=== PATIENT | male | born 1950 | race Caucasian/White ===

== ENCOUNTER → 2017-04-14 08:40 | Outpatient (CLI) | payer MEDICARE, SELFPAY | PROVIDERS: Family Provider Internal Medicine; PCP Internal Medicine; Visit Provider Physician Assistant Medical | DX: R00.2 Palpitations (principal) | CPT/HCPCS: 93225; 93226 ==

== ENCOUNTER 2017-04-14 10:45 | Emergency (ER) | payer MEDICARE, SELFPAY ==
[2017-04-14 10:47] VITALS: BP 133/93; PULSE 94; RESP 18; TEMP 37.2; O2SAT 97; BMI 20.9
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
--- NOTE | 2017-04-14 11:54 | ED.RN ---
DR [facility] OFFICE CONTACTED FOR HOME MOEDICATION LIST
--- NOTE | 2017-04-14 12:08 | ED.VISSUMM ---
- ER Visit Summary Date of Service: 04/14/17 Chief Complaint: Reported atraumatic left wrist pain and swelling History of Present Illness: The patient is a 67 M who is right-handed presents with left breast pain. He denies trauma. He is on Plavix. He does have soft tissue swelling on the volar surface with discoloration. He denies any paresthesia, anesthesia or motor weakness. Physical Examination: Vital signs remarkable elevated blood pressure 133/93. There is soft tissue swelling over the distal third of the radius and ulnar volar surface with ecchymosis noted. He has pain with passive range of motion of the wrist. There is pain palpation over the distal radius and ulna. There is no pain patient over the anatomic snuffbox or carpal bones. There is no pain the patient of the metacarpal bones or phalanges. Median, radial, ulnar function intact. Capillary refill is normal. Palpable radial pulse. There is no pain the patient over the lateral medial epicondyle appears no pain the patient over the olecranon process or radial head with supination pronation. Supination grocery causes him discomfort distally. Test Results: X-ray of the wrist was obtained which reveals no evidence of fracture. There is no malalignment and there is no evidence of a volar fat pad. Emergency Department Course and Treatment: X-ray to evaluate patient's swelling and ecchymosis. Treatment Plan: The patient's allergies age and medical problems he was given a prescription for 10 [place] Disposition: Discharge to home Impression: Left wrist pain with contusion initial encounter This note was generated with [employer] dictation software. It may contain incorrect words, spelling, and punctuation that were not noted in review of the chart prior to signing ED Disposition - Plan for ED Patient: Disposition: Home or Assisted Living Chief Complaint: Upper Extremity Injury Instructions: ED Contusion Upper Ext Prescriptions: Hydrocodone Bitart/Apap 5-325 [[place] 5MG-325MG] 1 tablet PO Q6H PRN PRN #10 tablet PRN Reason: Pain Referrals: Ani Andersen DO [Primary Care Provider] - 1 Week if not improving Additional Instructions: Elevate wrist for the next 2-3 days. Apply ice 6-8 times a day for 2030 minutes at a time.. Your prescription was electronically transmitted to designated pharmacy of your choice.
--- NOTE | 2017-04-14 12:14 | ED.DCSUM_ITS ---
- ER Visit Summary Date of Service: 04/14/17 Chief Complaint: Reported atraumatic left wrist pain and swelling History of Present Illness: The patient is a 67 M who is right-handed presents with left breast pain. He denies trauma. He is on Plavix. He does have soft tissue swelling on the volar surface with discoloration. He denies any paresthesia, anesthesia or motor weakness. Physical Examination: Vital signs remarkable elevated blood pressure 133/93. There is soft tissue swelling over the distal third of the radius and ulnar volar surface with ecchymosis noted. He has pain with passive range of motion of the wrist. There is pain palpation over the distal radius and ulna. There is no pain patient over the anatomic snuffbox or carpal bones. There is no pain the patient of the metacarpal bones or phalanges. Median, radial, ulnar function intact. Capillary refill is normal. Palpable radial pulse. There is no pain the patient over the lateral medial epicondyle appears no pain the patient over the olecranon process or radial head with supination pronation. Supination grocery causes him discomfort distally. Test Results: X-ray of the wrist was obtained which reveals no evidence of fracture. There is no malalignment and there is no evidence of a volar fat pad. Emergency Department Course and Treatment: X-ray to evaluate patient's swelling and ecchymosis. Treatment Plan: The patient's allergies age and medical problems he was given a prescription for 10 [place] Disposition: Discharge to home Impression: Left wrist pain with contusion initial encounter This note was generated with [employer] dictation software. It may contain incorrect words, spelling, and punctuation that were not noted in review of the chart prior to signing ED Disposition - Plan for ED Patient: Disposition: Home or Assisted Living Chief Complaint: Upper Extremity Injury Instructions: ED Contusion Upper Ext Prescriptions: Hydrocodone Bitart/Apap 5-325 [[place] 5MG-325MG] 1 tablet PO Q6H PRN PRN #10 tablet PRN Reason: Pain Referrals: Ani Andersen DO [Primary Care Provider] - 1 Week if not improving Additional Instructions: Elevate wrist for the next 2-3 days. Apply ice 6-8 times a day for 2030 minutes at a time.. Your prescription was electronically transmitted to designated pharmacy of your choice.
[2017-04-14] MEDS: HYDROcodone Bitartrate/Apap 5/325 Tablet PO (12:23)
[2017-04-14 12:24] VITALS: PULSE 89; RESP 17; O2SAT 99
== END 2017-04-14 12:25 | disposition home or self-care (01) ==
PROVIDERS: Emergency Provider Emergency Medicine; Family Provider Internal Medicine; PCP Internal Medicine
DX: M25.532 Pain in left wrist (principal); S60.212A Contusion of left wrist, initial encounter; I25.10 Atherosclerotic heart disease of native coronary artery without angina pectoris; J44.9 Chronic obstructive pulmonary disease, unspecified; E78.00 Pure hypercholesterolemia, unspecified; F32.9 Major depressive disorder, single episode, unspecified; N40.0 Benign prostatic hyperplasia without lower urinary tract symptoms; Z86.711 Personal history of pulmonary embolism; Z79.51 Long term (current) use of inhaled steroids; Z79.02 Long term (current) use of antithrombotics/antiplatelets; Z79.899 Other long term (current) drug therapy; X58.XXXA Exposure to other specified factors, initial encounter; Y93.9 Activity, unspecified; Y92.9 Unspecified place or not applicable; Y99.9 Unspecified external cause status
CPT/HCPCS: 73110; 93225; 93226; 99283

== ENCOUNTER → 2017-07-10 09:35 | Outpatient (CLI) | payer MEDICARE, SELFPAY ==
--- NOTE | 2017-07-10 09:40 | RAD_ITS ---
STUDY: X-RAY - LUMBAR SPINE REASON FOR EXAM: Male, 67 years old. Back pain x40 years TECHNIQUE: 5 view(s) of the lumbar spine were obtained. COMPARISON: Prior study of 03/12/2014 FINDINGS: Normal lumbar lordosis. There is no substantial scoliosis. There is a normal alignment of the vertebrae. There is diffuse endplate spondylosis of the lumbar vertebrae. Generalized osteopenia is present. There is narrowing of the L1-2, L2-3, and L5-S1 disc spaces. There is no demonstrated fracture. The soft tissue structures are unremarkable. RAD/L/S Spine Min 4 Views IMPRESSION: Degenerative changes of the spine, as detailed above. Generalized osteopenia. The degree of degenerative disease has slightly increased in severity from the previous study. Electronically Signed: Kelvin Moreira MD at 17:09 EDT , Service support ,
== END ==
PROVIDERS: Family Provider Internal Medicine; PCP Internal Medicine; Visit Provider Chiropractor
DX: S33.5XXA Sprain of ligaments of lumbar spine, initial encounter (principal)
CPT/HCPCS: 72110

== ENCOUNTER → 2017-09-09 08:39 | Outpatient (CLI) | payer MEDICARE, SELFPAY ==
--- NOTE | 2017-09-09 08:43 | RAD_ITS ---
STUDY: X-RAY - CERVICAL SPINE REASON FOR EXAM: Male, 67 years old. Left-sided neck pain. History of prior fusion. TECHNIQUE: 3 view(s) of the cervical spine were obtained. COMPARISON: Comparison is made with prior examination dated September 26, 2014. FINDINGS: There are degenerative changes of the anterior atlantoaxial articulation. Normal odontoid process. The patient is status post anterior fusion with screw and plate fixation device at the C4-C5, C5-C6 and C6-C7 levels. Multilevel disc space narrowing. Facet joint osteoarthritis. Possible multilevel neural foraminal stenosis. The soft tissue structures are unremarkable. RAD/Cerv Spine 2 or 3 Views IMPRESSION: Status post fusion from the C4-C7 level. There is been essentially no change. Electronically Signed: Jimmy Mathew MD at 9:22 EDT Tel [phone], Service support ,
== END ==
PROVIDERS: Family Provider Internal Medicine; PCP Internal Medicine; Visit Provider Internal Medicine
DX: M54.2 Cervicalgia (principal); Z98.1 Arthrodesis status
CPT/HCPCS: 72040

== ENCOUNTER 2017-09-17 10:21 | Emergency (ER) | payer MEDICARE, SELFPAY ==
[2017-09-17 10:22] VITALS: BP 126/73; PULSE 95; RESP 16; TEMP 36.9; O2SAT 97; BMI 21.2
--- NOTE | 2017-09-17 10:36 | RAD_ITS ---
STUDY: X-RAY CHEST REASON FOR EXAM: Male, 67 years old. Chest pain and shortness of breath for 3 days. TECHNIQUE: Single AP portable view of the chest. COMPARISON: February 27, 2017. FINDINGS: There is hyperinflation of the lungs consistent with chronic obstructive lung disease (COPD). There is no demonstrated pleural abnormality. Normal size heart. There are calcified hilar lymph nodes. Normal visualized pulmonary arteries. There is atherosclerotic tortuosity of the aortic arch and descending thoracic aorta. There are diffuse degenerative changes of the visualized thoracic spine. Patient has had previous cervical spine surgery. Normal visualized ribs, clavicles, and shoulders. There is no demonstrated abnormality of the visualized soft tissue structures of the upper abdomen. RAD/Chest 1 View (Portable) IMPRESSION: No radiographic evidence of acute cardiopulmonary disease. Electronically Signed: Moira Rudolph MD at 11:08 EDT , Service support ,
--- NOTE | 2017-09-17 10:36 | EKG12_ITS ---
Test Reason : BACK PAIN Blood Pressure : / mmHG Vent. Rate : 083 BPM Atrial Rate : 083 BPM P-R Int : 168 ms QRS Dur : 078 ms QT Int : 370 ms P-R-T Axes : 051 035 037 degrees QTc Int : 434 ms Normal sinus rhythm Normal ECG Confirmed by CLARA STEVENSON, MIGUELITO ([id number]), purchasing expeditor ALEKSANDAR GILBERT ([id number]) on 09/22/2017 3:40:04 PM Referred By: NEETA Confirmed By:MIGUELITO ELIZABETH MD
--- NOTE | 2017-09-17 10:38 | CT_ITS ---
STUDY: CT ABDOMEN AND PELVIS WITHOUT CONTRAST REASON FOR EXAM: Male, 67 years old. Left flank pain. RADIATION DOSAGE (If Supplied By Facility): CTDIvol = ( 6.11 ) mGy, DLP = ( 317.67 ) mGycm TECHNIQUE: Transaxial images were obtained from the dome of the diaphragm to the symphysis pubis without oral contrast, and without intravenous contrast. Sagittal and coronal images were reconstructed. Individualized dose optimization techniques were used for this CT. COMPARISON: Oral and IV contrast enhanced CT abdomen and pelvis December 27, 2016. FINDINGS: The visualized lung bases are unremarkable. The heart size is normal. There are atherosclerotic calcifications of the right coronary artery and visualized distal descending thoracic aorta. Normal liver. The portal vein diameter is 17 mm. There is non-visualization of the gallbladder, which may be secondary to either contraction or a prior cholecystectomy. Common bile duct diameter is 4.5 mm. Normal spleen. Normal pancreas. Normal bilateral adrenal glands. Normal right kidney. Normal left kidney. No hydronephrosis. Normal visualized stomach. Normal small intestine. Normal colon. There are surgical clips or sutures in the region of the appendix consistent with a prior appendectomy. There is moderate atherosclerotic calcification of the abdominal aorta and proximal iliac arteries, without a demonstrated aneurysm. Normal inferior vena cava. Normal retroperitoneum. Normal urinary bladder. Prostate gland size is approximately 4.65 x 4.7 x 4.1 cm (R57 cc), and is again seen indenting the floor of the urinary bladder. Normal abdominal wall. There are stable multilevel osteophytic degenerative changes of the visualized spine, as well as mid to lower lumbar facet arthropathies. There is osseous fusion across the right sacroiliac joint and mild degenerative arthrosis on the left. CT/Abdomen/Pelvis without Cont IMPRESSION: 1. No clearly demonstrated source for the patient's complaint. 2. No nephrolithiasis or hydronephrosis. 3. The bowel is unremarkable without sign of obstruction. The appendix is surgically absent. 4. Prior cholecystectomy. 5. Atherosclerotic calcifications. No demonstrated aortoiliac aneurysm. 6. Enlarged prostate gland, as noted. 7. Degenerative changes of the spine and pelvis, as described. Electronically Signed: Ish Renner MD at 12:20 EDT , Service support ,
[2017-09-17 10:52] LABS: Absolute Neutrophil Count 3.1 X10^3/uL (2.0-7.7); Basophil# 0.04 X10^3/uL; Basophil% 0.7 % (0-1); Eosinophil# 0.19 X10^3/uL; Eosinophils% 3.5 % (0-5); Hemoglobin 11.7 g/dl (13.0-16.5); Lymphocyte % 31.1 % (19-41); Mean Corp Hgb Conc 33.4 g/gl (32-36); Mean Corpuscular Hgb 27.7 pg (27.0-32.0); Mean Corpuscular Volume 82.9 fL (80-94); Mean Platelet Vol. 9.8 fl (6.2-12.0); Monocyte# 0.45 X10^3/uL; Monocyte% 8.2 % (0-10); Neutrophil # 3.07 X10^3/uL (2.7-7.7); Neutrophil % 56.1 % (47-70); POSITIVE COUNT NO; POSITIVE DIFFERENTIAL NO; POSITIVE MORPHOLOGY NO; Platelet Count 229 K/mm3 (150-450); RBC Distribution Width CV 14.4 % (11.6-14.6); RBC Distribution Width SD 43.2 fl (35.1-43.9); Red Blood Count 4.22 M/mm3 (4.6-6.2); White Blood Count 5.5 K/mm3 (4.4-11.0)
[2017-09-17 11:02] LABS: D-Dimer Quantitative (DVT/PE) 0.55 FEU/ug/m (0.27-0.49)
[2017-09-17 11:07] LABS: Anion Gap 9 (5-15); BUN 14 mg/dL (7-18); BUN/Creat Ratio 13.9 RATIO (10-20); Calcium,Total 8.4 mg/dL (8.5-10.1); Chloride 111 mmol/L (98-107); Creatinine, Serum 1.01 mg/dL (0.70-1.30); EST Glomerular Filtration Rate 78 mL/min (>60); Est Glom Filt Rate - Afr Amer 94 mL/min (>60); Estimated Creatinine Clearance 73.07 ml/min; Glucose 104 mg/dL (74-106); Potassium 3.7 mmol/L (3.5-5.1); Sodium Level 146 mmol/L (136-145)
[2017-09-17] MEDS: 0.9% Normal Saline 1,000 ML 150 ML IV (11:09)
[2017-09-17] MEDS: Morphine 4 MG/ML Syringe IV ×2 (11:09→12:44)
[2017-09-17] MEDS: Ondansetron 4 MG/2 ML Vial IV ×2 (11:10→12:43)
[2017-09-17 11:13] VITALS: BP 132/81; PULSE 76; RESP 12; O2SAT 98
[2017-09-17 12:54] LABS: Bacteria 0 SEEN /hpf (None Seen); Red Blood Cells-Urine 0 SEEN /hpf (0-5); Squamous Epithelial Cells - UA 0 SEEN /hpf (0-5); White Blood Cells 0 SEEN /hpf (0-5)
[2017-09-17 13:16] LABS: Color, Urine Yellow (Yellow); Glucose, Dipstick NEGATIVE (Normal); Ketone-Dipstick Negative (Negative); Leukocyte Esterase-Dipstick 25 /ul (Negative); Nitrite-Dipstick Negative (Negative); Occult Blood-Urine Negative /ul (Negative); Protein-Dipstick Negative (Negative); Specific Gravity, Urine 1.015 (1.002-1.030); Urine Bilirubin Dipstick Negative (Negative); Urine Clarity Clear (Clear); Urine Urobilinogen Normal (Normal)
[2017-09-17 13:17] LABS: Mucous, Urine 1+ /hpf (<or=2+)
--- NOTE | 2017-09-17 14:13 | ED.VISSUMM ---
- ER Visit Summary Date of Service: 09/17/17 Chief Complaint: [Back pain] History of Present Illness: The patient is a 67 M [presents the emergency department with complaint of back pain that started 3 days ago. Patient states the pain started in the left lower back kind of started moving up towards the upper back. Patient states pain is worse with deep breath and certain movements. Patient denies any trauma. He denies recent travel or surgery. He denies any fever. Patient also gives history of diarrhea that started this morning where he had 6 or 7 watery stools but has since resolved. Patient has a history of coronary artery disease, asthma, COPD, schizophrenia, bipolar disorder, depression.] Physical Examination: [HEENT-PERRLA, EOMI. Cranial nerves II through XII grossly intact. TMs clear. Mucous membranes moist. No adenopathy. Cardiovascular-regular rate and rhythm without murmur or ectopy Lungs-clear to auscultation, chest wall stable without crepitus or subcu emphysema Abdomen-normoactive bowel sounds, soft, patient has some mild tenderness over left lower quadrant with some guarding. There is no rebound, rigidity, or perineal signs Back exam-patient has tenderness palpation over the left upper thoracic paraspinal musculature that seems to reproduce his pain. Patient has negative straight leg raises. Deep tendon reflexes are plus out of 4 equal bilaterally in upper extremities Extremities-intact ?4, normal range of motion, normal pulses, atraumatic] Test Results: [EKG obtained arrival shows sinus rhythm with a ventricular rate of 83 bpm. CBC with differential showing a 5.5, hemoglobin 11.7, hematocrit 35, platelets 229. Chemistries unremarkable. Urinalysis was normal. Troponin was less than 0.015. D-dimer was normal for age when adjusted for age at 0.55. Chest x-ray showed nothing acute. CT flank showed nothing acute.] Emergency Department Course and Treatment: [She was medicated with morphine and Zofran in the department] Treatment Plan: [Patient will be given a prescription for [place] for pain and advised to follow-up with his primary care physician within next 5-7 days.] Disposition: [Discharged to home in stable condition] Impression: [Back pain-musculoskeletal] This note was generated with [employer] software. It may contain incorrect words, spelling, and punctuation that were not noted in review of the chart prior to signing ED Disposition - Plan for ED Patient: Chief Complaint: Back Referrals: Ani Andersen DO [Primary Care Provider] -
--- NOTE | 2017-09-17 14:17 | ED.DCSUM_ITS ---
- ER Visit Summary Date of Service: 09/17/17 Chief Complaint: [Back pain] History of Present Illness: The patient is a 67 M [presents the emergency department with complaint of back pain that started 3 days ago. Patient states the pain started in the left lower back kind of started moving up towards the upper back. Patient states pain is worse with deep breath and certain movements. Patient denies any trauma. He denies recent travel or surgery. He denies any fever. Patient also gives history of diarrhea that started this morning where he had 6 or 7 watery stools but has since resolved. Patient has a history of coronary artery disease, asthma, COPD, schizophrenia, bipolar disorder, depression.] Physical Examination: [HEENT-PERRLA, EOMI. Cranial nerves II through XII grossly intact. TMs clear. Mucous membranes moist. No adenopathy. Cardiovascular-regular rate and rhythm without murmur or ectopy Lungs-clear to auscultation, chest wall stable without crepitus or subcu emphysema Abdomen-normoactive bowel sounds, soft, patient has some mild tenderness over left lower quadrant with some guarding. There is no rebound, rigidity, or perineal signs Back exam-patient has tenderness palpation over the left upper thoracic paraspinal musculature that seems to reproduce his pain. Patient has negative straight leg raises. Deep tendon reflexes are plus out of 4 equal bilaterally in upper extremities Extremities-intact ?4, normal range of motion, normal pulses, atraumatic] Test Results: [EKG obtained arrival shows sinus rhythm with a ventricular rate of 83 bpm. CBC with differential showing a 5.5, hemoglobin 11.7, hematocrit 35 , platelets 229. Chemistries unremarkable. Urinalysis was normal. Troponin was less than 0.015. D-dimer was normal for age when adjusted for age at 0.55. Chest x-ray showed nothing acute. CT flank showed nothing acute.] Emergency Department Course and Treatment: [She was medicated with morphine and Zofran in the department] Treatment Plan: [Patient will be given a prescription for [place] for pain and advised to follow-up with his primary care physician within next 5-7 days.] Disposition: [Discharged to home in stable condition] Impression: [Back pain-musculoskeletal] This note was generated with [employer] software. It may contain incorrect words, spelling, and punctuation that were not noted in review of the chart prior to signing ED Disposition - Plan for ED Patient: Chief Complaint: Back Referrals: Ani Andersen DO [Primary Care Provider] -
--- NOTE | 2017-09-17 14:17 | ED.DEP ---
ED Disposition - Plan for ED Patient: Chief Complaint: Back Instructions: ED Spasm Back No Trauma Prescriptions: Hydrocodone/Acetaminophen [[place] 5-325 Tablet] 1 - 2 ea PO 4X/DAY PRN PRN 3 Days #12 tab PRN Reason: Pain Referrals: Ani Andersen DO [Primary Care Provider] - 5-7 Days
== END 2017-09-17 14:51 | disposition home or self-care (01) ==
LOC: ED 12:39
PROVIDERS: Emergency Provider Emergency Medicine; Family Provider Internal Medicine; PCP Internal Medicine
DX: M54.9 Dorsalgia, unspecified (principal); M54.6 Pain in thoracic spine; I25.10 Atherosclerotic heart disease of native coronary artery without angina pectoris; J45.909 Unspecified asthma, uncomplicated; J44.9 Chronic obstructive pulmonary disease, unspecified; F20.9 Schizophrenia, unspecified; F32.9 Major depressive disorder, single episode, unspecified; I25.2 Old myocardial infarction; Z87.891 Personal history of nicotine dependence; Z79.51 Long term (current) use of inhaled steroids; Z79.02 Long term (current) use of antithrombotics/antiplatelets; Z79.899 Other long term (current) drug therapy
CPT/HCPCS: 71045; 74176; 80048; 81001; 84484; 85025; 85379; 93005; 96361; 96374; 96375; 96376; 99284; J7030; A4216; J2405

== ENCOUNTER → 2017-09-23 09:10 | Outpatient (CLI) | payer MEDICARE, SELFPAY ==
--- NOTE | 2017-09-23 09:11 | STE_ITS ---
Reason For Study: CHEST PAIN Stress Results Protocol: Dobutamine Maximum Predicted HR: 151 bpm Target HR: 128 bpm% Maximum Predicted HR: 85 % DurationHeart Rate Stage (mm:ss) (bpm) BPDos e BASELINE 69 130/74 STAGE 1 3:00 78 123/6510.00 STAGE 2 3:00 11 3 135/7720.00 STAGE 3 3:00 12 1 138/7430.00 STAGE 4 2:39 12 8 146/8840.00 RECOVERY 82 143/84 Stress Duration: 11:39 mm:ss Maximum Stress HR: 128 bpm Baseline Echocardiogram Findings The estimated ejection fraction is 65 %. Stress Echo Wall motion Data Resting WMIntermediate WMStress WM Resting Wall Motion Wall Motion Stress No regional wall motion No regional wall motion abnormalities noted. abnormalities noted. EKG Data Normal intervals are noted. The patient was titrated from 10 mcg to a maximum of 40 mcg of dobutamine during the stress. The maximum heart rate attained was 127 beats per minute. This was 84% of maximum predicted heart rate. During dobutamine infusion, there were no ST or T wave changes noted to suggest ischemia. No clinical angina was noted. Interpretation Summary The estimated ejection fraction is 65 %. Normal, adequate, dobutamine echocardiogram. Negative for ischemia by EKG and echocardiographic criteria. No anginal symptoms noted. Rare PVCs noted during dobutamine infusion. Appropriate blood pressure response to dobutamine. Final LVEF is 75%. No complications. Ordering Physician: Alfredo Andrade Referring Physician: Alfredo Andrade Performed By: Jovanna Larios, DANA, RVT
== END ==
PROVIDERS: Family Provider Internal Medicine; PCP Internal Medicine; Visit Provider Internal Medicine Cardiovascular Disease
DX: R07.89 Other chest pain (principal); I25.110 Atherosclerotic heart disease of native coronary artery with unstable angina pectoris; Z95.5 Presence of coronary angioplasty implant and graft
CPT/HCPCS: 93017; 93350; J7030

== ENCOUNTER 2017-10-17 09:00 | Outpatient (RCR) | payer MEDICARE, SELFPAY ==
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
--- NOTE | 2017-10-17 09:35 | HP.PTDCSUM_ITS ---
HP - PT D/C Summary It has been my pleasure to treat LILLIAN GUERRERO under orders from Ani Andersen , for the diagnosis of CERVICAL SPASM AND NECK PAIN. LIMITED ROM. for a total of 5 visit(s). Discharge Date: 10/17/17 Please see the following information for a summary of their discharge status. - Subjective Subjective: GOING TO HAVE TO CLIMB STEPS ANYMORE AND HE THINKS THAT IS REALLY GOING TO HELP. HE REPORT HE CAN DO A LITTLE BIT MORE WORK NOW THAN HE COULD BEFORE HAVING PT BECAUSE HE FEELS LIKE HE IS GETTING A LITTLE STRONGER. DOING MY EX'S HELPS OUT A LOT. PATIENT REPORTS HE WANTS TO TRY TO CONTINUE ON HIS OWN AT THIS POINT AND IF HE SEES IT GETTING WORSE HE WILL LET HIS DOCTOR KNOW. HE REPORTS EACH ONE OF HIS EX'S HELP. PATIENT REPORTS THE TINGLING IN HIS FINGERS HASN'T CHANGED. LEFT NECK PAIN RANGES 2/10 TO 9/10. - Pain CERVICAL AREA Pain Intensity (Out of 10): 7 - Overall Improvement % Improvement: 50 - Objective Objective/Function: PATIENT HAS MADE SIGNIFICANT PROGRESS INTERMS OF PAIN AND INCREASED UE ROM AND STRENGTH BUT HE CONTINUES TO HAVE VERY LIMITED NECK ROM. HE IS INDEP WITH A HEP THAT HE IS SATISFIED WITH. UPON EXAM: Sitting Posture/ Standing Posture: POOR. FORWARD HEAD, ROUNDED SHOULDERS. NO TORTICOLLIS. Active Correction of posture: WORSE. Other Observations: INDEP GAIT INTO PT WITHOUT ANY ASSISTIVE DEVICES CARRYING AND WEARING PORTABLE OXYGEN. 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 STRENGTH: CARLOS UE STRENGTH GROSSLY 4/5 WITH MMT'ING TODAY WITHIN AVAILABLE ROM. SENSATION: UNCHAGED. ROM deficit: CARLOS SHOULDER ELEVATION TO APPROX 130 DEG WITHOUT C/O INCREASED NECK PAIN. Cervical Mvmt Loss: Flex: MIN. Pro: NIL. Ext: 7. Ret: SURY. RSB: 7.25. LSB: 7.5. R Rot: 8. L Rot: 9.5. PATIENT C/O INCREASED NECK PAIN WITH LEFT SB, LEFT ROTATION AND EXTENSION TESTING. Postural strength: POOR. Palpation: MILD TENDERNESS WITH PALPATION OF THE LEFT UPPER TRAP AND POSTERIOR CERVICAL REGION. - Goals Goal 1:: DECREASE C/O LEFT NECK AND SHOULDER PAIN Goal Progress: Goal Met Goal 2:: IMPROVE PERSONAL CARE, LIFITNG, READING, SLEEP, WORK, DRIVING AND RECREATIONAL FUNCTION. Goal Progress: Goal Met Goal 3:: INSTRUCT IN PROPHYLAXIS Goal Progress: Goal Met - Plan Plan: D/C TO HEP AT PATIENTS REQUEST. - D/C Information If there are questions or concerns regarding this patient's physical therapy, please feel free to call me at [phone]. Thank you for the referral of this patient. Sincerely, Sherita Sanz
== END 2017-10-17 19:00 | disposition home or self-care (01) ==
LOC: PT 09:00
PROVIDERS: Family Provider Internal Medicine; PCP Internal Medicine; Visit Provider Internal Medicine
DX: M62.838 Other muscle spasm (principal); M54.2 Cervicalgia
CPT/HCPCS: 97110; 97140; 97162; 97164

== ENCOUNTER → 2018-03-26 20:45 | Outpatient (CLI) | payer MEDICARE, SELFPAY ==
[2018-03-18 14:10] VITALS: BMI 21.2
== END ==
PROVIDERS: Family Provider Internal Medicine; PCP Internal Medicine; Visit Provider Internal Medicine Critical Care Medicine
DX: G47.33 Obstructive sleep apnea (adult) (pediatric) (principal)
CPT/HCPCS: 95810

== ENCOUNTER → 2018-03-31 12:38 | Outpatient (CLI) | payer MEDICARE, SELFPAY ==
[2018-03-18 14:10] VITALS: BMI 21.2
[2018-03-27 09:43] VITALS: BMI 22.1
[2018-03-31 14:33] VITALS: PULSE 82; PULSE 85; PULSE 90; PULSE 91; PULSE 92; PULSE 93; PULSE 94; O2SAT 93; O2SAT 94; O2SAT 95; O2SAT 96; O2SAT 97; O2SAT 98
--- NOTE | 2018-04-02 09:44 | WT_ITS ---
PSN 6 Minute Walk Test - 6 Minute Walk Test 6 Minute Walk Test: 6 Minute Walk Test PSN:6-Minute Walk Test Start: 03/31/18 14:32 Freq: Status: Active Protocol: [id number].[id number] Document 03/31/18 14:33 [facility] (Rec: 03/31/18 14:36 [facility] [id number]) 6 Minute Walk Test Date Performed 03/31/18 Time Performed 13:30 Height 6 ft 2 in Weight: 164 lb Weight in Pounds 164.[address]: Jose F Phillips Assistive device used: None Pre-test Oxygen Delivery Method Room Air Pulse Ox (%) 94 Pulse Rate (60-100 beats/min) 85 Dyspnea She Scale (0-10) 2 1st minute Oxygen Delivery Method Room Air Pulse Ox (%) 95 Pulse Rate (60-100 beats/min) 92 Dyspnea She Scale (0-10) 3 Reported Symptoms Increased Work of Breathing 2nd minute Oxygen Delivery Method Room Air Pulse Ox (%) 93 Pulse Rate (60-100 beats/min) 91 Dyspnea She Scale (0-10) 3 Reported Symptoms Increased Work of Breathing 3rd minute Oxygen Delivery Method Room Air Pulse Ox (%) 98 Pulse Rate (60-100 beats/min) 90 Dyspnea She Scale (0-10) 3 Reported Symptoms Increased Work of Breathing 4th minute Oxygen Delivery Method Room Air Pulse Ox (%) 96 Pulse Rate (60-100 beats/min) 93 Dyspnea She Scale (0-10) 3 Reported Symptoms Increased Work of Breathing 5th minute Oxygen Delivery Method Room Air Pulse Ox (%) 97 Pulse Rate (60-100 beats/min) 94 Dyspnea She Scale (0-10) 3 Reported Symptoms Increased Work of Breathing 6th minute Oxygen Delivery Method Room Air Pulse Ox (%) 97 Pulse Rate (60-100 beats/min) 91 Dyspnea She Scale (0-10) 4 Reported Symptoms Increased Work of Breathing Post-test Oxygen Delivery Method Room Air Pulse Ox (%) 97 Pulse Rate (60-100 beats/min) 82 Dyspnea She Scale (0-10) 2 Full Laps Walked 14 Partial Lap, Number of Tiles Walked 16 Total Distance Walked (ft) 842 - Interpretation Interpretation: The patient ambulated 842 feet over the course of 6 minutes beginning on room air without assistive devices or breaks. Pretesting oxygen saturation was noted to be 94% on room air. With ambulation, the corrine oxygen saturation was 93%. There was no significant exertional oxygen desaturation. - Recommendations Recommendations: There is no indication for the use of supplemental oxygen at this time.
== END ==
PROVIDERS: Family Provider Internal Medicine; PCP Internal Medicine; Referring Provider Internal Medicine Critical Care Medicine; Visit Provider Internal Medicine Critical Care Medicine
DX: J44.9 Chronic obstructive pulmonary disease, unspecified (principal)
CPT/HCPCS: 94618

== ENCOUNTER → 2018-04-16 12:26 | Outpatient (CLI) | payer MEDICARE, SELFPAY ==
[2018-03-27 09:43] VITALS: BMI 22.1
--- NOTE | 2018-04-17 09:27 | PFT ---
INTRODUCTION: The patient is a 68-year-old male that presents for pulmonary function studies secondary to a diagnosis of COPD. Respiratory therapy reports good patient effort. Bronchodilators were used during testing. INTERPRETATION: Forced expiration spirometry demonstrates the presence of a moderately severe large airways obstructive ventilatory defect. There was no significant response to aerosolized bronchodilators, based upon strict ATS criteria. Spirograms are of good quality and do not plateau indicating slow emptying of the lungs. Body plethysmography was performed and reveals lung volumes to be within normal limits. Diffusing capacity by single breath CO is also within normal limits at 78% of predicted. When compared to prior pulmonary function studies from November 2016, there has been a 14% reduction in DLCO. IMPRESSION: These pulmonary function studies demonstrate the presence of an irreversible moderately severe large airways obstructive ventilatory defect. Lung volumes and diffusing capacity are within normal limits.
== END ==
PROVIDERS: Family Provider Internal Medicine; PCP Internal Medicine; Referring Provider Internal Medicine Critical Care Medicine; Visit Provider Internal Medicine Critical Care Medicine
DX: J44.9 Chronic obstructive pulmonary disease, unspecified (principal)
CPT/HCPCS: 94060; 94726; 94729

== ENCOUNTER → 2018-04-17 12:29 | Outpatient (CLI) | payer MEDICARE, SELFPAY ==
[2018-03-27 09:43] VITALS: BMI 22.1
--- NOTE | 2018-04-17 12:30 | ECHOD_ITS ---
Reason For Study: Dyspnea/SOB Procedure This was a 2D Doppler, Color Flow transthoracic echocardiogram. Exam performed in department. Left Ventricle Normal size and thickness. The estimated ejection fraction is 60 %. Stage 1 diastolic dysfunction. No regional wall motion abnormalities noted. Right Ventricle Normal size and thickness. Normal systolic function. Atria Normal left atrium. Normal right atrium. Normal atrial septum. Mitral Valve The mitral valve is structurally normal. No prolapse or stenosis seen. Tricuspid Valve Normal tricuspid valve. Trivial tricuspid valve insufficiency. Right ventricular systolic pressure estimated to be 25 mmHg. Aortic Valve Trisinus/trileaflet aortic valve. Mild focal aortic valve thickening. Pulmonic Valve Normal pulmonic valve. Great Vessels Normal aortic root. Normal arch. Normal inferior vena cava. Inferior vena cava collapse with sniff. Pericardium/Pleural No pericardial effusion. MMode/2D Measurements & Calculations LVIDd: 4.3 cm IVSd: 0.97 cm Ao root diam: 3.2 cm LVIDs: 3.1 cm LVPWd: 0.76 cm RVDd: 3.8 cm FS: 28.1 % LAV(MOD-bp): 44.0 ml LVAd ap4: 23.5 cm2 SV(MOD-sp4): 31.5 ml LAV(MOD-bp) Indexed: 22.1 ml/m2 EDV(MOD-sp4): 53.7 ml LAV(MOD-sp2): 49.8 ml EDV(sp4-el): 56.2 ml LAV(MOD-sp4): 33.4 ml LVAs ap4: 13.3 cm2 ESV(MOD-sp4): 22.2 ml ESV(sp4-el): 21.7 ml EF(MOD-sp4): 58.6 % EF(sp4-el): 61.3 % SV(sp4-el): 34.4 ml LA A4 area: 15.1 cm2 LA dimension(2D): 3.5 cm RA A4 area: 13.8 cm2 Doppler Measurements & Calculations MV E max dell: 57.4 cm/sec Lat Peak E' Dell: 8.3 cm/sec Med Peak E' Dell: 7.3 cm/sec MV A max dell: 93.6 cm/sec E/E' lat: 7.0 E/E' med: 7.9 MV E/A: 0.61 Ao V2 max: 152.1 cm/sec LV V1 max: 101.4 cm/sec PA V2 max: 96.3 cm/sec Ao max P.2 mmHg LV V1 max P.1 mmHg Ao V2 mean: 103.9 cm/sec Ao mean P.8 mmHg Ao V2 VTI: 29.2 cm TR max dell: 222.9 cm/sec TR max P.9 mmHg Interpretation Summary The estimated ejection fraction is 60 %. Stage 1 diastolic dysfunction. Trivial tricuspid valve insufficiency. Right ventricular systolic pressure estimated to be 25 mmHg. Compared to echo report dated 11/05/2016, no appreciable changes noted. Ordering Physician: Blane Tapia Referring Physician: Ani Andersen Performed By: Suzy Tapia, DANA, RVT
== END ==
PROVIDERS: Family Provider Internal Medicine; PCP Internal Medicine; Referring Provider Nurse Practitioner Family; Visit Provider Nurse Practitioner Family
DX: R06.09 Other forms of dyspnea (principal); Z95.5 Presence of coronary angioplasty implant and graft
CPT/HCPCS: 93306

== ENCOUNTER → 2018-04-23 20:06 | Outpatient (CLI) | payer MEDICARE, SELFPAY ==
[2018-03-27 09:43] VITALS: BMI 22.1
== END ==
PROVIDERS: Family Provider Internal Medicine; PCP Internal Medicine; Referring Provider Nurse Practitioner Acute Care; Visit Provider Nurse Practitioner Acute Care
DX: G47.33 Obstructive sleep apnea (adult) (pediatric) (principal)
CPT/HCPCS: 95811

== ENCOUNTER 2018-05-02 08:13 | Emergency (ER) | payer MEDICARE, SELFPAY ==
[2018-03-27 09:43] VITALS: BMI 22.1
[2018-05-02 08:13] VITALS: BP 138/75; PULSE 76; RESP 18; TEMP 36.6; O2SAT 99; BMI 22.3
--- NOTE | 2018-05-02 08:58 | ED.VISSUMM ---
- ER Visit Summary Date of Service: 05/02/18 Chief Complaint: Sore throat History of Present Illness: The patient is a 68 M who presents with a sore throat and pain with swallowing that has been getting worse over the past 5 days. She states he made a baked potato 5 days ago and when he ate it was hot. Patient states he felt like it burned him in his throat. Patient states he has been having pain with swallowing since. Patient states he is able to drink liquids. Patient states is a constant aching but is worse with swallowing. Patient denies any fevers or chills. Patient admits to some sinus congestion and rhinorrhea. Patient also admits to headache. Patient also admits to a nonproductive cough. She denies any chest pain or shortness of breath. Physical Examination: Vital signs are stable. Patient is afebrile. Patient is in no acute distress. Oral mucosa is pink and moist. Oropharynx is mildly erythematous. Airway is patent. Neck is supple. Trachea is midline. There is no JVD noted. Heart was regular rate and rhythm. Lungs are clear and equal bilaterally. Abdomen is soft and nontender. Cranial nerves II through XII are intact. There are no focal motor or sensory deficits noted. The remaining physical exam is within normal limits. Emergency Department Course and Treatment: Patient was started on a course of prednisone. Patient was instructed to eat ice chips and popsicles to help with the swelling. Patient was instructed to return if any difficulty breathing. Patient was instructed to follow-up with her primary care physician in 5-7 days. Patient understood and was agreeable with the plan. All questions were answered. Disposition: Discharge home Impression: Pharyngeal burn This note was generated with [employer] dictation software. It may contain incorrect words, spelling, and punctuation that were not noted in review of the chart prior to signing ED Disposition - Plan for ED Patient: Disposition: Home or Assisted Living Diagnosis: Pharyngeal burn Instructions: ED Pharyngitis Viral Prescriptions: Prednisone [Deltasone] 60 mg PO DAILY #15 tab Referrals: Ani Andersen DO [Primary Care Provider] -
== END 2018-05-02 09:36 | disposition home or self-care (01) ==
PROVIDERS: Emergency Provider Emergency Medicine; Family Provider Internal Medicine; PCP Internal Medicine
DX: T28.0XXA Burn of mouth and pharynx, initial encounter (principal); X10.1XXA Contact with hot food, initial encounter; Y93.89 Activity, other specified; Y92.89 Other specified places as the place of occurrence of the external cause; Y99.8 Other external cause status
CPT/HCPCS: 99283

== ENCOUNTER 2018-05-14 23:33 | Emergency (ER) | payer MEDICARE, SELFPAY ==
[2018-05-14 23:35] VITALS: BP 133/82; PULSE 78; RESP 18; TEMP 36.8; O2SAT 98; BMI 21.4
--- NOTE | 2018-05-15 00:24 | ED.VISSUMM ---
- ER Visit Summary Date of Service: 05/15/18 Chief Complaint: [] feeling tired History of Present Illness: The patient is a 68 M [] states he has been feeling tired for the last several days. Gradual onset. He stated however he cannot sleep. He has not taken medications for last 3 weeks. He stopped all his medications as he does not want to take them anymore. He has been using his albuterol nebulizer and oxygen however. He said he feels depressed but this is chronic for him and is not as bad as previous. He denies any suicidal thoughts or specific plan to hurt himself in any way. He called crisis earlier this week and told him that he has been feeling down and he has an appointment on May 19. He was seen in our emergency department on May 04 after he burned his throat with a potato eating and he was given prednisone. He stated that that resolved. He does have a history of depression anxiety and bipolar. He stated normally he takes Seroquel to help him sleep but states he just does not want to take his medicines anymore. I asked what we can do for him in the emergency department he stated that he just feels tired Physical Examination: [] Vital signs reviewed General: Well-nourished well-developed Head: Normocephalic atraumatic Eyes: Pupils equal round and reactive to light extraocular movements intact ENT: TMs clear no hemotympanum no trauma Neck: Nontender full range of motion Cardiovascular: Regular rate rhythm no murmurs normal S1-S2 Respiratory: No distress clear to auscultation bilaterally chest nontender Abdomen: Soft nontender nondistended normal bowel sounds no masses Back: Nontender no CVA tenderness Extremities: Nontender active range of motion ?4 extremities no trauma Skin: Normal color no trauma Neuro alert oriented cranial nerves II through XII intact normal strength sensation reflexes Test Results: [] Emergency Department Course and Treatment: [] I discussed with the patient is depression and feeling tired and not wanting to take his medications. We discussed this and he said that he knows he has the right to not take his medications as he does not want to take them anymore. He does not want to see crisis tonight. He is not actively suicidal or homicidal. He has an appointment on May 19. He will return per patient if he feels suicidal. Treatment Plan: [] Disposition: [] Impression: [] Chronic depression This note was generated with [employer] dictation software. It may contain incorrect words, spelling, and punctuation that were not noted in review of the chart prior to signing ED Disposition - Plan for ED Patient: Referrals: Ani Andersen DO [Primary Care Provider] -
--- NOTE | 2018-05-15 00:26 | ED.DEP ---
ED Disposition - Plan for ED Patient: Disposition: Home or Assisted Living Instructions: ED Depression Referrals: Ani Andersen DO [Primary Care Provider] - Counseling,Center [GROUP OF PHYSICIANS] -
--- NOTE | 2018-05-15 00:53 | ED.RN ---
When going in to room to ask patient one more time if he would like to talk with crisis- pt got angry and stated that the doctor just did not care. I have seen these guys and they don't care. This RN was at bedside when ED physician sat down and talked thoroughly with pt. Pt had stated he wanted medication to sleep but also has seroquel at home but he does not want to take any of his meds anymore. Pt denied wanting to see crisis and ripped up paperwork in front of RN. RN stated to please come back if needed. MD was notified of these interactions prior to discharging patient.
== END 2018-05-15 00:58 | disposition home or self-care (01) ==
PROVIDERS: Emergency Provider Emergency Medicine; Family Provider Internal Medicine; PCP Internal Medicine
DX: F32.9 Major depressive disorder, single episode, unspecified (principal); Z91.14 Patient's other noncompliance with medication regimen; Z99.81 Dependence on supplemental oxygen; Z87.891 Personal history of nicotine dependence; Z79.51 Long term (current) use of inhaled steroids; Z79.02 Long term (current) use of antithrombotics/antiplatelets; Z79.899 Other long term (current) drug therapy
CPT/HCPCS: 99283

== ENCOUNTER → 2018-06-18 11:00 | Outpatient (CLI) | payer MEDICARE, SELFPAY ==
[2018-06-15 13:18] VITALS: BMI 22.3
== END ==
PROVIDERS: Family Provider Internal Medicine; PCP Internal Medicine; Referring Provider Nurse Practitioner Acute Care; Visit Provider Nurse Practitioner Acute Care
DX: G47.33 Obstructive sleep apnea (adult) (pediatric) (principal)
CPT/HCPCS: 98960; G0463

== ENCOUNTER → 2018-06-25 | Outpatient (CLI) | payer MEDICARE, SELFPAY ==
[2018-06-15 13:18] VITALS: BMI 22.3
--- NOTE | 2018-06-25 06:49 | CT_ITS ---
STUDY: CT CHEST WITHOUT CONTRAST REASON FOR EXAM: Male, 68 years old. Follow-up lung nodule, history of smoking RADIATION DOSAGE (If Supplied By Facility): CTDIvol = ( 11.02 ) mGy, DLP = ( 412.96 ) mGycm TECHNIQUE: Transaxial imaging was performed without the administration of intravenous contrast material. Individualized dose optimization techniques were used for this CT. COMPARISON: Chest CTA 09/13/2016. FINDINGS: There is mild centrilobular emphysema. There are stable, scattered 2-3 mm pulmonary nodules. No new or enlarging pulmonary nodule. No focal pulmonary consolidation. There is trace atelectasis and/or scarring at the posterior right lower lobe and lingula. There is mild peripheral reticular thickening.. There is no demonstrated pleural abnormality. Normal heart and pericardium. There are mild coronary artery calcifications and a coronary artery stent is seen. There are calcified subcarinal and right hilar lymph nodes. There is no adenopathy.. Normal hilar regions. Normal unenhanced pulmonary arteries. There is trace atherosclerotic disease of the aortic arch.. There is anterior fusion of the visualized lower cervical spine. There are degenerative changes of the spine. There is no demonstrated abnormality of the visualized upper abdomen. CT/Chest without Contrast IMPRESSION: Stable 2-3 mm pulmonary nodules. No new or enlarging pulmonary nodule or focal consolidation. Continued annual chest CT is recommended in setting of known smoking history. Electronically Signed: Tony Randall, at 9:23 EDT Tel , Service support ,
== END | disposition home or self-care (01) ==
LOC: CT 06:49
PROVIDERS: Family Provider Internal Medicine; PCP Internal Medicine; Referring Provider Nurse Practitioner Acute Care; Visit Provider Nurse Practitioner Acute Care
DX: R91.1 Solitary pulmonary nodule (principal)
CPT/HCPCS: 71250

== ENCOUNTER → 2018-10-08 | Outpatient (CLI) | payer MEDICARE, SELFPAY ==
[2018-09-21 15:06] VITALS: BMI 22.7
--- NOTE | 2018-10-08 10:06 | STEWCON_ITS ---
Reason For Study: CHEST PAIN Stress Results Protocol: Dobutatmine Stress Echo Maximum Predicted HR: 150 bpm Target HR: 128 bpm % Maximum Predicted HR: 89 % DurationHeart Rate Stage (mm:ss) (bpm) BP Dose Comment BASELINE 67 125/79 DILUTED DEFINITY 5 CC USED DSE- 10 MCG 3:44 63 126/70 10.00 DSE- 20 MCG 3:04 91 172/77 20.00 DSE- 30 MCG 3:03 120 167/70341.00ATROPINE 0.25 MG IVP GIVEN @ 1136 DSE- 40 MCG 2:22 133 148/79 40.00CP 5/10 OVER L BREAST AREA RECOVERY 96 142/86 CP SUBSIDED, PT DENIED SX Stress Duration: 12:13 mm:ss Maximum Stress HR: 133 bpm Baseline Echocardiogram Findings The estimated ejection fraction is 65 %. Stress Echo Wall motion Data Resting WM Intermediate WM Stress WM Resting Wall Motion Wall Motion Stress No regional wall motion No regional wall motion abnormalities noted. abnormalities noted. EKG Data The baseline ECG displays normal sinus rhythm. The patient was titrated from 10 mcg to a maximum of 40 mcg of dobutamine during the stress. The maximum heart rate attained was 133 beats per minute. This was 88% of maximum predicted heart rate. During dobutamine infusion, there were no ST or T wave changes noted to suggest ischemia. Interpretation Summary The estimated ejection fraction is 65 %. Normal, adequate, dobutamine echocardiogram. Negative for ischemia by EKG and echocardiographic anterior. Nonspecific chest pain symptoms noted. Rare PVCs and ventricular couplets noted which is a nonspecific finding given dobutamine. Appropriate blood pressure response to dobutamine. Final LVEF is 75%. Test terminated due to attainment of target heart rate and chest pain 5/10 over left breast area which subsided around 2 minutes into recovery. Decreased sensitivity due to poor echo windows requiring Definity agent. The study was technically difficult. Contrast injection was performed. Ordering Physician: Alfredo Andrade Referring Physician: Alfredo Andrade Performed By: Jovanna Larios, DANA, RVT
== END | disposition home or self-care (01) ==
LOC: CVS 10:06
PROVIDERS: Family Provider Internal Medicine; PCP Internal Medicine; Referring Provider Internal Medicine Cardiovascular Disease; Visit Provider Internal Medicine Cardiovascular Disease
DX: R07.89 Other chest pain (principal); I25.10 Atherosclerotic heart disease of native coronary artery without angina pectoris; I25.2 Old myocardial infarction; I25.810 Atherosclerosis of coronary artery bypass graft(s) without angina pectoris; Z95.5 Presence of coronary angioplasty implant and graft
CPT/HCPCS: 93017; 93350; J7040; Q9957; A4216; C8928

== ENCOUNTER → 2018-10-14 | Outpatient (CLI) | payer MEDICARE, SELFPAY ==
[2018-09-21 15:06] VITALS: BMI 22.7
[2018-10-14 16:23] LABS: Hematocrit 42.3 % (40-54); Hemoglobin 13.5 g/dL (13.0-16.5); Mean Corp Hgb Conc 31.9 g/dL (32-36); Mean Corpuscular Hgb 26.4 pg (27.0-32.0); Mean Corpuscular Volume 82.6 fL (80-94); Mean Platelet Vol. 9.9 fl (6.2-12.0); Platelet Count 249 K/mm3 (150-450); RBC Distribution Width CV 14.5 % (11.6-14.6); RBC Distribution Width SD 43.6 fl (35.1-43.9); Red Blood Count 5.12 M/mm3 (4.6-6.2); White Blood Count 6.8 K/mm3 (4.4-11.0)
[2018-10-14 16:35] LABS: Prothrombin Time (Protime)PT. 12.9 SECONDS (11.7-14.9)
[2018-10-14 16:36] LABS: Partial Thromboplast Time 32.7 Seconds (24.1-36.2)
[2018-10-14 16:59] LABS: AST(SGOT) 16 U/L (15-37); Alanine Aminotransfer ALT/SGPT 29 U/L (16-61); Albumin, Serum 4.1 g/dL (3.2-5.0); Alkaline Phosphatase 127 U/L (45-117); Anion Gap 7 (5-15); BUN 13 mg/dL (7-18); BUN/Creat Ratio 11.9 RATIO (10-20); Bilirubin, Direct 0.07 mg/dL (0.00-0.30); Calcium,Total 8.7 mg/dL (8.5-10.1); Chloride 109 mmol/L (98-107); Cholesterol 253 mg/dL (200); Creatinine, Serum 1.09 mg/dL (0.70-1.30); EST Glomerular Filtration Rate 71 mL/min (>60); Est Glom Filt Rate - Afr Amer 86 mL/min (>60); Globulin 3.2 g/dL (2.2-4.2); Glucose 95 mg/dL (74-106); High Density Lipoprotein 35 mg/dL; Potassium 3.5 mmol/L (3.5-5.1); Protein, Total 7.3 g/dL (6.4-8.2); Sodium Level 142 mmol/L (136-145); Triglycerides 676 mg/dL
== END | disposition home or self-care (01) ==
LOC: LAB 14:13
PROVIDERS: Family Provider Internal Medicine; PCP Internal Medicine; Referring Provider Internal Medicine Cardiovascular Disease; Visit Provider Internal Medicine Cardiovascular Disease
DX: E78.00 Pure hypercholesterolemia, unspecified (principal); I25.810 Atherosclerosis of coronary artery bypass graft(s) without angina pectoris; I25.10 Atherosclerotic heart disease of native coronary artery without angina pectoris; I49.3 Ventricular premature depolarization; R07.9 Chest pain, unspecified
CPT/HCPCS: 36415; 80048; 80061; 80076; 85027; 85610; 85730

== ENCOUNTER 2018-10-16 06:31 | Day surgery (SDC) | payer MEDICARE, SELFPAY ==
[2018-09-21 15:06] VITALS: BMI 22.7
[2018-10-16] VITALS (28 sets, daily range): BP systolic 101–154; BP diastolic 51–83; PULSE 56–77; RESP 12–21; TEMP 36.3; O2SAT 95–99; BMI 21.9; BMI 21.8
--- NOTE | 2018-10-16 08:53 | CL.I_ITS ---
Patient Name: LILLIAN GUERRERO Study Date: 10/16/2018 Performing: Alfredo Andrade MD Ht: 74 inches 187.96 cm : 1950 Wt: 170.48 lbs 77.33 kg Age: 68 Gender: male BSA: 2.03 PROCEDURE(S) PERFORMED [id number], CORONARY OR GRAFT, INITIAL VESSEL [id number] W OR WO PTCA, SINGLE CORONARY ARTERY CLINICAL PROFILE AND CO-MORBIDITIES Indications: Worsening Angina, Stable Known CAD Heart Failure: None Stress/Imaging Stress Echocardiogram: Yes Result: Indeterminant Stress Echocardiogram: Indetermin ant Angina Classification Anginal Classification w/in 2 Weeks: CCS III CAD Presentations: Unstable angina. Other: dyspnea Comorbidities/Risk Factors: Hypertension Dyslipidemia Prior PCI Chronic Lung Disease CONCLUSIONS Normal LV size, wall motion,and systolic function Perserved Left Ventricular systolic function with normal EDP Single vessel CAD of the proximal LAD Non obstructive coronary arteries Widely patent RCA stent with mild 30-40% in stent restenosis. Successful PTCA/NEVAEH of proximal LAD after FFR showed to be 0.77. Pt received primary stenting with a 3.5 x 20 Promus Synergy, post dilated with a 3.5 x 8 NC Balloon; 75%-->0%. No dissection or perforat ion or compromise of ostial DIAG#1. Post PCI FFR=0.94. No encroachment seen of ostial LCX. RECOMMENDATIONS Staged for FFR Highly recommend quitting all tobacco products Follow up with primary foreman or supervisor and operator Risk factor modification Plavix 75mg bid for at least 12 months; pt unable to take asa. Routine post interventional care Refer for Outpatient Cardiac Rehab Manual sheath removal per protocol Follow up with Dr. Andraed D/c amlodipine and start losartan 12.5mg daily. DESCRIPTION OF PROCEDURE The patient arrived to the procedure lab. The risks and benefits of the procedure as well as a full d escription of our services here and lack of surgical backup were fully explained to the patient and/o r their significant other prior to the catheterization. The Timeout was completed, verifying the gabriela ect patient and procedure. The patient's procedural site was prepped and draped in the usual fashion. Local anesthetic was given subcutaneously to right groin region with Lidocaine 2%. Using a modified Seldinger technique, arterial access was obtained via the right femoral artery, a 4Fr sheath was inse rted. Left Coronary Artery selective angiography was performed in multiple views using a 4 Fr. JL5 c atheter. Right Coronary Artery selective angiography was then performed in multiple views using a 4 F r. 3DRC catheter. Left Ventriculography was performed in PEÑA projection using a 4 Fr. Pigtail cathete r. LV to AO pullback pressures were then recorded Arterial sheath was exchanged for a 6 Fr Sheath. EBU 3.5 Guide catheter was inserted and engaged into the LCA. The FFR/iFR wire was inserted. Adenosine was then given per protocol. FFR Ratio Baselin e: 0.93 FFR Ratio post Adenosine: 0.77 The FFR/iFR wire was left in place as guide wire. Synergy 3.50 x20 Drug Eluting stent was inserted. Angiogram performed post stent deployment. NC Emerge 3.50x8 Ball oon catheter was inserted. PTCA balloon inflated at 12 atms for 6 secs. PTCA balloon inflated at 12 a tms for 4 secs. PTCA balloon inflated at 14 atms for 6 secs. PTCA balloon inflated at 14 atms for 7 s ecs. Angiogram performed post balloon dilatation. Adenosine was then given per protocol. Pressures an d FFR/iFR were then recorded. FFR Ratio post intervention: 0.94 The arterial sheath was sutured in place and capped CORONARY ANGIOGRAPHY DOMINANCE: Right Dominant LEFT HEART ASSESSMENT Left Ventricular Ejection Fraction: by LV Gram 65 % Normal Left Ventricular systolic function Normal LV wall motion LEFT MAIN: Angiographically normal LEFT ANTERIOR DESCENDING ARTERY: PROX LAD: 75 % Stenosis CIRCUMFLEX ARTERY: Angiographically normal RIGHT CORONARY ARTERY: MID RCA: Previously placed stent has an instent 30-40 % restenosis INTERVENTION INFORMATION LESION SITE: LAD (Proximal) Lesion Complexity: High/C, lesion at bifurcation: No, thrombus present: No, lesion length: 20 mm, cul prit lesion: Yes Pre Stenosis: 75 % Pre intervention MARY flow: 3 PROCEDURE: Drug Eluting Stent with post dilatation Post Stenosis: 0 % Post intervention MARY flow: 3 COMPLICATIONS No Complications PROCEDURE MEDICATIONS Oxygen: 2 L/min via nasal cannula Adenosine drip for FFR 23ml IV 10/16/2018 08:15:53 Adenosine drip for FFR 23 ml IV @ 10/16/2018 08:30:33 Heparin 6000 unit(s) IV 10/16/2018 08:09:48 Nitro 200 mcg IC 10/16/2018 07:58:25 Nitro 200 mcg IC 10/16/2018 07:58:25 Nitro 200 mcg IC 10/16/2018 08:10:48 Nitro 200 mcg IC 10/16/2018 08:23:49 Plavix 75 mg PO 10/16/2018 07:10:20 IV Bolus: .9 NaCl 275 ml total 10/16/2018 08:23:56 SUMMARY OF HEMODYNAMIC DATA Time AIR REST ECG 07:08:32 AO 137/68 (94) SA 07:56:19 LV 127/-18, 5 08:04:21 LV 122/-19, 6 08:04:27 LVp 128/-21, 1 08:04:33 AOp 127/67 (90) 08:04:38 Signed By Alfredo Andrade MD On 10/16/2018 08:52:24 Alfredo Andrade MD
[2018-10-16 09:01] LABS: ACT Activated Clotting Time 197 sec (74-137)
--- NOTE | 2018-10-16 09:03 | EKG12_ITS ---
Test Reason : WEAKNESS Blood Pressure : / mmHG Vent. Rate : 075 BPM Atrial Rate : 075 BPM P-R Int : 168 ms QRS Dur : 084 ms QT Int : 386 ms P-R-T Axes : 055 029 036 degrees QTc Int : 431 ms Normal sinus rhythm Normal ECG Confirmed by VALENTIN STEVENSON, LATISHA ([id number]), videotape editor GRACIELA BARBOZA ([id number]) on 10/21/2018 10:28:12 AM Referred By: Alfredo Andrade Confirmed By:LATISHA HANSON MD
[2018-10-16] MEDS: 0.9% Normal Saline 1,000 ML 150 ML IV (10:00)
--- NOTE | 2018-10-16 10:00 | EKG12_ITS ---
Test Reason : S/P PCI Blood Pressure : / mmHG Vent. Rate : 056 BPM Atrial Rate : 056 BPM P-R Int : 170 ms QRS Dur : 068 ms QT Int : 426 ms P-R-T Axes : 020 047 027 degrees QTc Int : 411 ms Sinus bradycardia Septal infarct , age undetermined Abnormal ECG When compared with ECG of 17-SEP-2017 10:46, Vent. rate has decreased BY 27 BPM Nonspecific T wave abnormality now evident in Inferior leads Confirmed by TEENA ANDRADE ([id number]), film editor GRACIELA BARBOZA ([id number]) on 10/29/2018 2:51:07 PM Referred By: Teena Andrade Confirmed By:TEENA ANDRADE
[2018-10-16 10:31] LABS: ACT Activated Clotting Time 147 sec (74-137)
--- NOTE | 2018-10-16 10:39 | CRPHASE1 ---
Patient Communication PHII Cardiac Rehab Discussed with Patient:: Yes Guide to Cardiac Rehab Given to Patient:: Yes Cardiac Rehab Facility Choice List Given to Patient:: Yes Choice Program 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 Height: 6 ft 2 in Weight:: 170 lb BMI: 21.8 Stress: Recent Family History: Family History (Last Reviewed 09/29/18 @ 08:11 by Amarilis Campo) Mother CAD (coronary artery disease) Sister Diabetes Past Cardiac Illness: Coronary Artery Disease, Previous PCI w/Stent Phase I Education Given On:: [place], Nutrition, Antiplatelet medication, CHF, Smoking cessation, Diabetes - Type I, Diabetes - Type II Issues Affecting Care:: None Medical/Surgical History VA:: Yes CAD:: Yes Pulmonary:: Yes COPD:: Yes Asthma:: Yes Diabetes:: Yes Hypertension:: Yes Dyslipidemia:: Yes PE:: Yes - hx of PE GERD:: Yes Cancer:: No Renal:: No Thyroid:: No Depression:: Yes Anxiety:: Yes CABG: No PTCA:: Yes ICD:: No Pacemaker:: No Discharge/Home/Social Eval Discharge Disposition: Home Cardiac Rehabilitation Info Cardiac Rehabilitation Program Information: Cardiac Rehabilitation is important for patients like you who are recovering from a heart problem. Cardiac rehabilitation programs are recognized as integral to the continued care of the patient with coronary heart disease. The cardiac rehabilitation program is designed to optimize a patient's physical, psychological, and social functioning. Health residential care officer work in cardiac rehabilitation programs and assist you with getting the treatments you need to get stronger and healthier - like exercise, healthy eating habits, and medications. Cardiac rehabilitation has been show to help people with heart problems live longer and have better life enjoyment than people who do not go to cardiac rehabilitation. Please contact the Cardiac Rehabilitation Program at [facility] at in two weeks if you have not heard from them.
--- NOTE | 2018-10-16 10:46 | CRPH1.INSTRU ---
General Education CAD and cardiac anatomy and function:: Not instructed Explanation of diagnoses and procedures:: Not instructed Sign/Symptoms of MD:: Not instructed Antiplatelet therapy: Patient communicates acknowledgment, Needs reinforcement Proper use of NTG-SL: Not instructed Emergency procedures and activation of EMS: Patient communicates acknowledgment, Needs reinforcement Compliance of all prescribed medications: Patient communicates acknowledgment, Needs reinforcement Smoking Patient Nicotine/Smoking Risk Factors Are:: Cigarettes - QUIT SMOKING 6 YEARS AGO Nicotine/Smoking Response Code:: Not instructed Dyslipidemia Patient Dyslipidemia Risk Factors Are:: Total Cholesterol - 253, HDL - 35 Dyslipidemia Response Code:: Not instructed - NOT ALL OF LIPIS PROFILE PROVIDED AT THIS TIME Overweight/Obesity Patient Overweight/Obesity Risk Factors Are:: BMI Normal [18-25 & < 65 years old], BMI Normal [24-29 & > 65 years old] Overweight/Obesity:: Not instructed Hypertension Recommendations Include:: Maintain BP <130/85, BP <130/80 if diabetic, DASH dietary guidelines, Decrease/maintain normal body weight, Moderation of ETOH Hypertension:: Not instructed Heart Disease Patient Heart Disease Risk Factors Are:: Previous cardiac event - STENT 2014 Diabetes Diabetes:: Not instructed - PT STATES HE IS BORDERLINE DIABETIC Metabolic Syndrome Metabolic Syndrome Response Code:: Not instructed Sedentary Sedentary Response Code:: Not instructed Stress Recommendations Include:: Identification of stressors, and assessment of coping skills, Stress management techniques Stress Response Code:: Needs reinforcement - PT STATES HE HAS HAD SOME STESS LATELY
--- NOTE | 2018-10-16 11:16 | PCM.DC.CCA ---
Discharge Diet: Low fat/ Low Cholesterol Discharge Activity: Return to Normal Activity May shower in (days): 1 - No tub baths for 5 days May resume sexual activity in: 1-2 weeks Lifting Restrictions: Do not lift anything greater than 10 pounds for three days Call your doctor if your incision/area has: Continuous Slow Oozing, Sudden Increased Bleeding, Increased Pain/ Swelling, Increased Redness, Foul Smelling Discharge, Swelling at the incision site Call your doctor if you observe: Fever of 101 or Higher, Shortness of breath, Chest pain Remove Dressing in (days):: 1 Cleanse incision/area with: Soap & Water Additional Instructions: You continue with Plavix therapy. If anyone asks you to stop this medication please call the [facility] Office first at [phone]. You are scheduled for an office appointment with Dr. Andrade on 10/30/2018 at 2:00. Your blood pressure medication has been changed. You were started on a cholesterol medication. Prescriptions for both have been sent to your local pharmacy. If you have any questions or concerns please call the [facility] Office. Allergies/Adverse Reactions: Allergies aspirin Allergy (Verified 09/29/18 08:12) Itching levofloxacin [From Levaquin] Allergy (Verified 09/29/18 08:12) Itching Penicillins Allergy (Verified 09/29/18 08:12) Hives Medications to take at Discharge Albuterol IH (ProAir) [Proair Hfa] 1 puff INHALATION Q6H PRN PRN 08/24/15 Nitroglycerin (INPATIENT USE) [Nitrostat] 0.4 mg SL Q5M PRN 08/24/15 Ropinirole HCl [Requip] 0.5 mg PO QHS 04/23/16 Mirtazapine 30 mg PO DAILY 11/03/16 Albuterol Aerosols [Ventolin Aerosols] 2.5 mg INHALATION Q4H PRN PRN 01/30/17 Tamsulosin HCl [Flomax] 0.4 mg PO DAILY 01/30/17 pantoprazole 40 mg tablet,delayed release 40 mg PO DAILY #30 tab 08/08/17 fluticasone fur. 100 mcg-umeclid 62.5 mcg-vilant 25 mcg inhalat.powder 1 inh INHALATION DAILY #60 ea 01/02/19 metoprolol tartrate 25 mg tablet 25 mg PO BID #180 tab 03/18/18 quetiapine ER 400 mg tablet,extended release 24 hr 400 mg PO QPM 03/18/18 clopidogrel 75 mg tablet 75 mg PO BID #60 tab 10/08/18 atorvastatin 40 mg tablet 40 mg PO QHS #90 tab 10/16/18 losartan 25 mg tablet 12.5 mg PO DAILY #45 tab 10/16/18 Orders to be completed after discharge: Phase II, Outpatient Cardiac Rehab Location: None Selected Primary Care Physician: Ani Andersen DO [Primary Care Provider] - Test Results: Test results from this visit will be discussed in further detail at your follow-up appointment, if applicable. Please Follow Up With: Dr. Andrade When: 10/30/2018 at 2:00 PM Proposed Discharge Date: 10/17/18 Cardiac Rehabilitation Info Cardiac Rehabilitation Program Information: Cardiac Rehabilitation is important for patients like you who are recovering from a heart problem. Cardiac rehabilitation programs are recognized as integral to the continued care of the patient with coronary heart disease. The cardiac rehabilitation program is designed to optimize a patient's physical, psychological, and social functioning. Health critical care unit manager work in cardiac rehabilitation programs and assist you with getting the treatments you need to get stronger and healthier - like exercise, healthy eating habits, and medications. Cardiac rehabilitation has been show to help people with heart problems live longer and have better life enjoyment than people who do not go to cardiac rehabilitation. Please contact the Cardiac Rehabilitation Program at [facility] at in two weeks if you have not heard from them.
[2018-10-16] MEDS: Losartan Potassium 25 MG Tablet 12.5 MG PO (13:16)
[2018-10-16] MEDS: Pantoprazole Sodium 40 MG Tablet PO (13:17)
[2018-10-16] MEDS: Metoprolol Tartrate 25 MG Tablet PO ×2 (13:17→21:22)
[2018-10-16] MEDS: Mirtazapine 30 MG Tablet PO (13:18)
[2018-10-16] MEDS: Ipratropium/Albuterol Sulfate 3 ML AMPUL.NEB INHALATION ×2 (13:22→19:00)
--- NOTE | 2018-10-16 17:46 | NURSING ---
pt ambulated across room to chair to sit and eat dinner. No issues noted. Groin site continues to be dry and intact without hematoma. Will continue to monitor.
[2018-10-16] MEDS: Budesonide Respules 0.5 MG/2 ML AMPUL.NEB. INHALATION (19:00)
[2018-10-16] MEDS: QUEtiapine 100 MG Tablet 200 MG PO (21:21)
[2018-10-16] MEDS: Clopidogrel Bisulfate 75 MG Tablet PO (21:23)
[2018-10-16] MEDS: Pramipexole Di-HCl 0.25 MG Tablet PO (21:23)
[2018-10-16] MEDS: Atorvastatin Calcium 40 MG Tablet PO (21:23)
[2018-10-17] VITALS (14 sets, daily range): BP systolic 100–128; BP diastolic 53–70; PULSE 55–75; RESP 12–18; TEMP 36.4–36.8; O2SAT 95–98
[2018-10-17 05:19] LABS: Hematocrit 37.9 % (40-54); Hemoglobin 12.1 g/dL (13.0-16.5); Mean Corp Hgb Conc 31.9 g/dL (32-36); Mean Corpuscular Hgb 26.5 pg (27.0-32.0); Mean Corpuscular Volume 83.1 fL (80-94); Mean Platelet Vol. 9.6 fl (6.2-12.0); Platelet Count 190 K/mm3 (150-450); RBC Distribution Width CV 14.6 % (11.6-14.6); RBC Distribution Width SD 44.4 fl (35.1-43.9); Red Blood Count 4.56 M/mm3 (4.6-6.2)
[2018-10-17 05:33] LABS: Anion Gap 7 (5-15); BUN 13 mg/dL (7-18); BUN/Creat Ratio 11.7 RATIO (10-20); Calcium,Total 8.1 mg/dL (8.5-10.1); Chloride 111 mmol/L (98-107); Cholesterol 192 mg/dL (200); Creatinine, Serum 1.11 mg/dL (0.70-1.30); EST Glomerular Filtration Rate 70 mL/min (>60); Est Glom Filt Rate - Afr Amer 84 mL/min (>60); Estimated Creatinine Clearance 68.93 ml/min; Glucose 105 mg/dL (74-106); High Density Lipoprotein 36 mg/dL; Potassium 3.6 mmol/L (3.5-5.1); Sodium Level 144 mmol/L (136-145); Triglycerides 281 mg/dL; Very Low Density Lipoprotein 56 mg/dL (5-40)
--- NOTE | 2018-10-17 09:03 | EKG12_ITS ---
Test Reason : AM EKG Blood Pressure : / mmHG Vent. Rate : 056 BPM Atrial Rate : 056 BPM P-R Int : 168 ms QRS Dur : 084 ms QT Int : 440 ms P-R-T Axes : 013 036 033 degrees QTc Int : 424 ms Sinus bradycardia Otherwise normal ECG When compared with ECG of 16-OCT-2018 09:11, MANUAL COMPARISON REQUIRED, DATA IS UNCONFIRMED Confirmed by TEENA ANDRADE ([id number]), newspaper editor managing GRACIELA BARBOZA ([id number]) on 10/29/2018 2:51:35 PM Referred By: Teena Andrade Confirmed By:TEENA ANDRADE
[2018-10-17] MEDS: Tamsulosin HCl 0.4 MG Capsule PO (09:09)
[2018-10-17] MEDS: QUEtiapine 100 MG Tablet 200 MG PO (09:09)
[2018-10-17] MEDS: Losartan Potassium 25 MG Tablet 12.5 MG PO (09:09)
[2018-10-17] MEDS: Pantoprazole Sodium 40 MG Tablet PO (09:10)
[2018-10-17] MEDS: Metoprolol Tartrate 25 MG Tablet PO (09:10)
[2018-10-17] MEDS: Mirtazapine 30 MG Tablet PO (09:10)
[2018-10-17] MEDS: Clopidogrel Bisulfate 75 MG Tablet PO (09:10)
--- NOTE | 2018-10-17 11:36 | PCM.DC.SUM ---
Discharge Date and Diagnosis Date of Admission: 10/16/18 Date of Discharge: 10/17/18 - Primary Discharge Diagnosis CAD status post LAD PCI - Secondary Discharge Diagnosis Chronic Problems (Last Updated 10/08/18 @ 15:54 by Damaris Mane) Stented coronary artery (Chronic) Widely patent RCA stent with mild 30-40% in stent restenosis. Successful PTCA/NEVAEH of proximal LAD after FFR showed to be 0.77. Pt received primary stenting with a 3.5 x 20 Promus Synergy, post dilated with a 3.5 x 8 NC Balloon; 75%-->0%. No dissection or perforation or compromise of ostial DIAG#1. Post PCI FFR=0.94. No encroachment seen of ostial LCX. 10/16/2018 History of coronary artery stent placement (Chronic ~08/2013) Mid RCA BMS History of [place] (myocardial infarction) (Chronic) Atherosclerotic heart disease of [place] coronary artery without angina pectoris (Chronic) Dyspnea on exertion (Chronic) Benign hypertensive heart disease (Chronic) Wheezing (Chronic) Fatigue (Chronic) Chest tightness (Chronic) Cannabis dependence (Chronic) Hypercholesteremia (Chronic) Bipolar disorder (Chronic) Hyperglycemia (Chronic) DDD (degenerative disc disease) (Chronic) BPH (benign prostatic hyperplasia) (Chronic) Pleurisy (Chronic) Anxiety (Chronic) Depression (Chronic) Hyperlipidemia (Chronic) Trigger finger (Chronic) Long-term use of high-risk medication (Chronic) MONIQUE (obstructive sleep apnea) (Chronic) Unstable angina (Chronic) Dizziness (Chronic) Syncope and collapse (Chronic) Stage 2 moderate COPD by GOLD classification (Chronic) History of pulmonary embolism (Chronic) Asthma (Chronic) hx consistent with COPD/Chronic bronchitis and not asthma Smoking addiction (Chronic) Hospital Course and Treatment Operations: None Procedures: Cardiac catheterization, - - Cardiac intervention Summary of Care Provided: The patient is a 68 year old white male with a past medical history of underlying CAD status post RCA PCI who presented as an outpatient for ongoing concerns of angina pectoris and was electively brought to the hospital for further evaluation of underlying CAD with diagnostic cardiac catheterization. In brief the diagnostic cardiac catheterization revealed the left ventricle to be normal with an estimated LVEF of 65% with no angiographically significant appearing CAD in the left main coronary artery or LCx. The previous RCA PCI site was patent. The LAD had a 75% stenosis. The LAD underwent further evaluation with an FFR which was considered abnormal. The patient subsequently received an LAD PCI/NEVAEH. The patient was monitored in the ICU overnight. He remained symptomatically and hemodynamically stable. He had no acute changes on his post PCI ECG. On this day it was felt the patient could be released home for continued outpatient cardiovascular follow-up. [] Subjective: The patient is awake and alert and appears to be in no acute distress. - Physical Exam General: Alert, Oriented x3, Cooperative, No apparent distress HEENT: Atraumatic, PERRLA, EOMI, Normocephalic Oral: Moist Mucosa Neck: Supple, No JVD Lungs: Clear to auscultation Cardiovascular: Regular rate, Normal S1, Normal S2 Abdomen: Bowel Sounds Present, Soft, Non Tender Extremities: No clubbing, No cyanosis, No edema Neurological: Neuro grossly intact Psych/Mental Status: Normal Affect Comment: Right inguinal area cardiac catheterization site: Femoral pulse 2+/4+ with Vital Signs Temp Pulse Resp BP Pulse Ox 98.3 F 62 14 108/53 L 96 10/17/18 04:00 10/17/18 10:59 10/17/18 10:59 10/17/18 10:59 10/17/18 10:59 Oxygen Delivery Method Room Air Weight: 173 lb 8.061 oz Body Mass Index (BMI) 21.8 Intake and Output for Last 24 Hours 10/15/18 10/16/18 10/17/18 23:59 23:59 23:59 Intake Total 1854 / 1854 Output Total 850 / 850 Balance 1004 / 1004 Laboratory Tests Past 24 Hrs 10/17/18 10/17/18 05:10 05:10 WBC 6.0 RBC 4.56 L Hgb 12.1 L Hct 37.9 L MCV 83.1 MCH 26.5 L MCHC 31.9 L RDW Std Deviation 44.4 H RDW Coeff of Tad 14.6 Plt Count 190 MPV 9.6 Sodium 144 Potassium 3.6 Chloride 111 H Carbon Dioxide 26.0 Anion Gap 7 BUN 13 Creatinine 1.11 Estim Creat Clear Calc 68.93 Est GFR (MDRD) Af Amer 84 Est GFR (MDRD) Non-Af 70 BUN/Creatinine Ratio 11.7 Glucose 105 Calcium 8.1 L Triglycerides 281 H Cholesterol 192 LDL Cholesterol 100 VLDL Cholesterol 56 H HDL Cholesterol 36 L Discharge Diet: Low fat/ Low Cholesterol Discharge Activity: Return to Normal Activity May shower in (days): 1 - No tub baths for 5 days May resume sexual activity in: 1-2 weeks Call your doctor if your incision/area has: Continuous Slow Oozing, Sudden Increased Bleeding, Increased Pain/ Swelling, Increased Redness, Foul Smelling Discharge, Swelling at the incision site Call your doctor if you observe: Fever of 101 or Higher, Shortness of breath, Chest pain Remove Dressing in (days):: 1 Cleanse incision/area with: Soap & Water Home Medications: Medications to take at Discharge Albuterol IH (ProAir) [Proair Hfa] 1 puff INHALATION Q6H PRN PRN 08/24/15 Nitroglycerin (INPATIENT USE) [Nitrostat] 0.4 mg SL Q5M PRN 08/24/15 Ropinirole HCl [Requip] 0.5 mg PO QHS 04/23/16 Mirtazapine 30 mg PO DAILY 11/03/16 Albuterol Aerosols [Ventolin Aerosols] 2.5 mg INHALATION Q4H PRN PRN 01/30/17 Tamsulosin HCl [Flomax] 0.4 mg PO DAILY 01/30/17 pantoprazole 40 mg tablet,delayed release 40 mg PO DAILY #30 tab 08/08/17 fluticasone fur. 100 mcg-umeclid 62.5 mcg-vilant 25 mcg inhalat.powder 1 inh INHALATION DAILY #60 ea 03/18/18 metoprolol tartrate 25 mg tablet 25 mg PO BID #180 tab 03/18/18 quetiapine ER 400 mg tablet,extended release 24 hr 400 mg PO QPM 03/18/18 clopidogrel 75 mg tablet 75 mg PO BID #60 tab 10/08/18 atorvastatin 40 mg tablet 40 mg PO QHS #90 tab 10/16/18 losartan 25 mg tablet 12.5 mg PO DAILY #45 tab 10/16/18 Atorvastatin Calcium [Lipitor] 40 mg PO QHS tablet 10/17/18 Losartan Potassium [Cozaar] 12.5 mg PO DAILY tablet 10/17/18 Pantoprazole Sodium [Protonix] 40 mg PO DAILY tablet 10/17/18 Pramipexole Di-HCl [Mirapex] 0.25 mg PO QHS tablet 10/17/18 Other Amb Orders: Phase II, Outpatient Cardiac Rehab Location: None Selected Primary Care Physician: Ani Andersen DO [Primary Care Provider] - Please Follow Up With: Dr. Andrade When: 10/30/2018 at 2:00 PM Additional Instructions: You continue with Plavix therapy. If anyone asks you to stop this medication please call the [facility] Office first at [phone]. You are scheduled for an office appointment with Dr. Andrade on 10/30/2018 at 2:00. Your blood pressure medication has been changed. You were started on a cholesterol medication. Prescriptions for both have been sent to your local pharmacy. If you have any questions or concerns please call the [facility] Office. Minutes spent on discharge:: 45 Medical Necessity - Tobacco Use Smoking Status: Former smoker Meaningful Use Info Meaningful Use Diagnoses (Choose all that apply): None applicable
== END 2018-10-17 12:11 | disposition home or self-care (01) ==
LOC: CLSP 06:31 → ICU 08:42
PROVIDERS: Family Provider Internal Medicine; PCP Internal Medicine; Referring Provider Internal Medicine Cardiovascular Disease; Visit Provider Internal Medicine Cardiovascular Disease
DX: I25.119 Atherosclerotic heart disease of native coronary artery with unspecified angina pectoris (principal); E78.00 Pure hypercholesterolemia, unspecified; I11.9 Hypertensive heart disease without heart failure; F31.9 Bipolar disorder, unspecified; N40.0 Benign prostatic hyperplasia without lower urinary tract symptoms; F41.9 Anxiety disorder, unspecified; G47.33 Obstructive sleep apnea (adult) (pediatric); J44.9 Chronic obstructive pulmonary disease, unspecified; I25.2 Old myocardial infarction; J45.909 Unspecified asthma, uncomplicated; Z87.891 Personal history of nicotine dependence; Z79.51 Long term (current) use of inhaled steroids; Z79.02 Long term (current) use of antithrombotics/antiplatelets; Z79.899 Other long term (current) drug therapy
CPT/HCPCS: 80048; 80061; 85027; 85347; 92928; 93005; 93458; 93571; 94640; J0153; J7030; J7040; Q9967; C1725; C1769; C1874; C1887; C1894; C9600

== ENCOUNTER 2018-10-17 13:48 | Emergency (ER) | payer MEDICARE, SELFPAY ==
[2018-10-16 09:32] VITALS: BMI 21.8
[2018-10-16 10:45] VITALS: BMI 21.8
[2018-10-17 13:50] VITALS: BP 117/57; PULSE 79; RESP 20; TEMP 36.6; O2SAT 92; BMI 34.2
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
[2018-10-17 14:53] VITALS: BP 100/61; PULSE 64; RESP 16; O2SAT 95
[2018-10-17 14:53] LABS: Absolute Lymphocyte Count 1.91 X10^3/uL (0.83-4.51); Absolute Neutrophil Count 3.3 X10^3/uL (2.0-7.7); Basophil# 0.03 X10^3/uL; Basophil% 0.5 % (0-1); Eosinophil# 0.15 X10^3/uL; Eosinophils% 2.6 % (0-5); Hematocrit 36.6 % (40-54); Hemoglobin 11.9 g/dL (13.0-16.5); Lymphocyte # 1.91 X10^3/ul (4.0); Lymphocyte % 32.6 % (19-41); Mean Corp Hgb Conc 32.5 g/dL (32-36); Mean Corpuscular Hgb 27.3 pg (27.0-32.0); Mean Corpuscular Volume 83.9 fL (80-94); Monocyte# 0.48 X10^3/uL; Monocyte% 8.2 % (0-10); NRBC Flagged by Analyzer 0 % (0-5); Neutrophil # 3.27 X10^3/uL (2.7-7.7); Neutrophil % 55.8 % (47-70); Platelet Count 189 K/mm3 (150-450); RBC Distribution Width CV 14.5 % (11.6-14.6); RBC Distribution Width SD 44.7 fl (35.1-43.9); Red Blood Count 4.36 M/mm3 (4.6-6.2); White Blood Count 5.9 K/mm3 (4.4-11.0)
[2018-10-17] MEDS: 0.9% Normal Saline 1,000 ML 150 ML IV (14:54)
[2018-10-17 15:09] LABS: Red Blood Cells-Urine 0 SEEN /hpf (0-5)
[2018-10-17 15:17] LABS: Color, Urine Yellow (Yellow); Glucose, Dipstick Normal (Normal); Ketone-Dipstick 5 mg/dl (Negative); Leukocyte Esterase-Dipstick 25 /ul (Negative); Nitrite-Dipstick Negative (Negative); Occult Blood-Urine Negative /ul (Negative); Protein-Dipstick 15 mg/dl (Negative); Specific Gravity, Urine 1.015 (1.002-1.030); Urine Bilirubin Dipstick Negative (Negative); Urine Clarity Sl. Cloudy (Clear); Urine Urobilinogen Normal (Normal)
[2018-10-17 15:19] LABS: Anion Gap 6 (5-15); BUN 15 mg/dL (7-18); BUN/Creat Ratio 9.3 RATIO (10-20); Calcium,Total 7.7 mg/dL (8.5-10.1); Chloride 114 mmol/L (98-107); Creatinine, Serum 1.62 mg/dL (0.70-1.30); EST Glomerular Filtration Rate 45 mL/min (>60); Est Glom Filt Rate - Afr Amer 54 mL/min (>60); Estimated Creatinine Clearance 32.77 ml/min; Glucose 125 mg/dL (74-106); Potassium 3.6 mmol/L (3.5-5.1); Sodium Level 146 mmol/L (136-145)
[2018-10-17 15:23] VITALS: BP 104/67; PULSE 66; RESP 17; O2SAT 94
[2018-10-17 15:27] LABS: Bacteria RARE /hpf (None Seen); Mucous, Urine 1+ /hpf (<or=2+); Squamous Epithelial Cells - UA 0-5 SEEN /hpf (0-5); White Blood Cells 0-5 SEEN /hpf (0-5)
[2018-10-17 15:34] LABS: Amphetamine Urine VISTA NEGATIVE (<1000 ng/mL); Barbiturate Urine VISTA NEGATIVE (< 200 ng/mL); Benzodiazepine Urine VISTA NEGATIVE (< 200 ng/mL); Cocaine Urine VISTA NEGATIVE (< 300 ng/mL); Ecstacy Urine VISTA NEGATIVE (< 500 ng/mL); Methadone Urine VISTA NEGATIVE (< 300 ng/mL); PCP Urine VISTA NEGATIVE (< 25 ng/mL); THC Urine VISTA POSITIVE (< 50 ng/mL); Vista UDS pH Range 5
[2018-10-17 16:03] VITALS: BP 111/71; PULSE 69; RESP 15; O2SAT 95
== END 2018-10-17 16:03 | disposition home or self-care (01) ==
PROVIDERS: Emergency Provider Emergency Medicine; Family Provider Internal Medicine; PCP Internal Medicine
DX: R53.83 Other fatigue (principal); F41.9 Anxiety disorder, unspecified; J45.909 Unspecified asthma, uncomplicated; I25.10 Atherosclerotic heart disease of native coronary artery without angina pectoris; N40.0 Benign prostatic hyperplasia without lower urinary tract symptoms; I11.9 Hypertensive heart disease without heart failure; F31.9 Bipolar disorder, unspecified; I25.2 Old myocardial infarction; E78.00 Pure hypercholesterolemia, unspecified; Z95.5 Presence of coronary angioplasty implant and graft; Z86.711 Personal history of pulmonary embolism; Z79.51 Long term (current) use of inhaled steroids; Z79.899 Other long term (current) drug therapy; Z87.891 Personal history of nicotine dependence
CPT/HCPCS: 80048; 80307; 81001; 85025; 96360; 99285; J7030; A4216

== ENCOUNTER → 2019-03-15 12:47 | Outpatient (CLI) | payer MEDICARE, SELFPAY ==
[2018-09-21 15:06] VITALS: BMI 22.7
[2018-10-16 10:45] VITALS: BMI 21.8
[2018-10-30 13:56] VITALS: BMI 34.2
--- NOTE | 2019-03-16 09:19 | PFT ---
INTRODUCTION: The patient is a 68-year-old male that presents for pulmonary function studies secondary to a diagnosis of COPD. Respiratory therapy reports good patient effort. Bronchodilators were used during testing. INTERPRETATION: Forced expiration spirometry demonstrates the presence of a moderate large airways obstructive ventilatory defect. There was a significant response to aerosolized bronchodilators noted, based upon change in FEV1. Spirograms are of poor quality and do not plateau indicating slow emptying of the lungs. Body plethysmography was performed and reveals a decreased TLC to 5.96 L, 80% of predicted, indicative of a mild restrictive ventilatory impairment. The remainder of the lung volumes are symmetrically reduced. Diffusing capacity by single breath CO is within normal limits at 86% of predicted. IMPRESSION: Partially reversible moderate mixed ventilatory defect with preserved diffusing capacity.
== END ==
PROVIDERS: Family Provider Internal Medicine; PCP Internal Medicine; Referring Provider Internal Medicine Critical Care Medicine; Visit Provider Internal Medicine Critical Care Medicine
DX: J44.9 Chronic obstructive pulmonary disease, unspecified (principal)
CPT/HCPCS: 94060; 94726; 94729

== ENCOUNTER → 2019-03-18 10:43 | Outpatient (CLI) | payer MEDICARE, SELFPAY ==
[2018-09-21 15:06] VITALS: BMI 22.7
[2018-10-16 10:45] VITALS: BMI 21.8
[2018-10-30 13:56] VITALS: BMI 34.2
[2019-03-18 11:02] VITALS: PULSE 66; PULSE 68; PULSE 80; PULSE 81; PULSE 85; PULSE 86; PULSE 89; O2SAT 95; O2SAT 96; O2SAT 97; O2SAT 98
--- NOTE | 2019-03-18 13:54 | PCM.PSN.6M ---
PSN 6 Minute Walk Test - 6 Minute Walk Test 6 Minute Walk Test: 6 Minute Walk Test PSN:6-Minute Walk Test Start: 03/18/19 11:02 Freq: Status: Active Protocol: [id number] Document 03/18/19 11:02 (Rec: 03/18/19 11:07 [id number]) 6 Minute Walk Test Date Performed 03/18/19 Time Performed 11:00 Height 6 ft 2 in Weight: 175 lb Weight in Pounds 175.[address]: Jose F Phillips Assistive device used: None Pre-test Oxygen Delivery Method Room Air Pulse Ox (%) 97 Pulse Rate (60-100 beats/min) 66 Dyspnea She Scale (0-10) 3 Exertion She Scale (6-20) 10 1st minute Oxygen Delivery Method Room Air Pulse Ox (%) 98 Pulse Rate (60-100 beats/min) 80 2nd minute Oxygen Delivery Method Room Air Pulse Ox (%) 95 Pulse Rate (60-100 beats/min) 89 3rd minute Oxygen Delivery Method Room Air Pulse Ox (%) 96 Pulse Rate (60-100 beats/min) 85 4th minute Oxygen Delivery Method Room Air Pulse Ox (%) 97 Pulse Rate (60-100 beats/min) 86 5th minute Oxygen Delivery Method Room Air Pulse Ox (%) 97 Pulse Rate (60-100 beats/min) 81 6th minute Oxygen Delivery Method Room Air Pulse Ox (%) 96 Pulse Rate (60-100 beats/min) 80 Dyspnea She Scale (0-10) 4 Exertion She Scale (6-20) 11 Post-test Oxygen Delivery Method Room Air Pulse Ox (%) 97 Pulse Rate (60-100 beats/min) 68 Full Laps Walked 14 Partial Lap, Number of Tiles Walked 10 Total Distance Walked (ft) 836 - Interpretation Interpretation: The patient ambulated 836 feet over the course of 6 minutes beginning on room air without assistive devices or breaks. Pretesting oxygen saturation was noted to be 97% on room air. With ambulation, the corrine oxygen saturation was 95%. There was no significant exertional oxygen desaturation. - Recommendations Recommendations: There is no indication for the use of supplemental oxygen at this time.
== END ==
PROVIDERS: Family Provider Internal Medicine; PCP Internal Medicine; Referring Provider Internal Medicine Critical Care Medicine; Visit Provider Internal Medicine Critical Care Medicine
DX: R06.09 Other forms of dyspnea (principal)
CPT/HCPCS: 94618

== ENCOUNTER → 2019-05-14 11:30 | Outpatient (CLI) | payer MEDICARE, MEDICAID, SELFPAY ==
[2018-10-16 10:45] VITALS: BMI 21.8
[2019-04-12 14:17] VITALS: BMI 22.9
[2019-05-14 12:34] LABS: AST(SGOT) 21 U/L (15-37); Alanine Aminotransfer ALT/SGPT 35 U/L (16-61); Albumin, Serum 3.9 g/dL (3.2-5.0); Alkaline Phosphatase 124 U/L (45-117); Cholesterol 145 mg/dL (200); Globulin 3.1 g/dL (2.2-4.2); High Density Lipoprotein 46 mg/dL; Triglycerides 189 mg/dL; Very Low Density Lipoprotein 38 mg/dL (5-40)
== END ==
PROVIDERS: PCP Internal Medicine; Referring Provider Internal Medicine Cardiovascular Disease; Visit Provider Internal Medicine Cardiovascular Disease
DX: E78.00 Pure hypercholesterolemia, unspecified (principal)
CPT/HCPCS: 36415; 80061; 80076

== ENCOUNTER 2019-07-30 11:54 | Observation (INO) | payer MEDICARE, MEDICAID, SELFPAY ==
[2018-10-16 10:45] VITALS: BMI 21.8
[2019-07-30] VITALS (10 sets, daily range): BP systolic 123–156; BP diastolic 71–108; PULSE 56–86; RESP 17–19; TEMP 36.2–37.2; O2SAT 91–99; BMI 22.9; BMI 22.6; BMI 22.8
--- NOTE | 2019-07-30 12:26 | EKG12_ITS ---
Test Reason : CHEST PAIN Blood Pressure : / mmHG Vent. Rate : 074 BPM Atrial Rate : 074 BPM P-R Int : 160 ms QRS Dur : 074 ms QT Int : 410 ms P-R-T Axes : 049 019 011 degrees QTc Int : 455 ms Sinus rhythm with occasional Premature ventricular complexes Septal infarct , age undetermined Abnormal ECG Confirmed by AMARA STEVENSON, MARCUS ([id number]), food expeditor ALEKSANDAR GILBERT ([id number]) on 08/03/2019 3:14:49 PM Referred By: KIYA Confirmed By:MELISSA MALONEY MD
--- NOTE | 2019-07-30 12:55 | RAD_ITS ---
STUDY: X-RAY CHEST REASON FOR EXAM: Male, 69 years old. LEFT SIDED CHEST PRESSURE STARTING YESTERDAY AFTER STARTING OF COUGH WITH YELLOW SPUTUM STARTING TWO DAYS AGO. BIGGEST COMPLAINT IS WHEEZING TECHNIQUE: Single AP portable view of the chest. COMPARISON: Comparison is made with prior examination dated September 17, 2017. FINDINGS: EKG electrodes are seen. Decreased bronchovascular markings in both lungs suggestive of emphysematous change. No acute abnormality is seen. There is no demonstrated pleural abnormality. Normal size heart. Normal mediastinum and bessy. There is prominence of the pulmonary hilar arteries without peripheral pulmonary vascular congestion, suggesting pulmonary hypertension. Normal visualized aortic arch and descending thoracic aorta. There are diffuse degenerative changes of the visualized thoracic spine. Prior fusion involving the lower cervical spine. There is no demonstrated abnormality of the visualized soft tissue structures of the upper abdomen. RAD/Chest 1 View (Portable) IMPRESSION: Hyperinflation. No acute abnormality is seen. Electronically Signed: Jimmy Mathew, at 13:20 EDT , Service support ,
[2019-07-30 12:58] LABS: Anion Gap 4 (5-15); BUN 6 mg/dL (7-18); BUN/Creat Ratio 5.4 RATIO (10-20); Calcium,Total 8.7 mg/dL (8.5-10.1); Chloride 111 mmol/L (98-107); Creatinine, Serum 1.11 mg/dL (0.70-1.30); EST Glomerular Filtration Rate 69 mL/min (>60); Est Glom Filt Rate - Afr Amer 84 mL/min (>60); Estimated Creatinine Clearance 68.92 ml/min; Glucose 110 mg/dL (74-106); Potassium 3.3 mmol/L (3.5-5.1); Sodium Level 145 mmol/L (136-145)
[2019-07-30 12:59] LABS: Absolute Lymphocyte Count 1.75 X10^3/uL (0.83-4.51); Basophil# 0.03 X10^3/uL; Basophil% 0.5 % (0-1); Eosinophil# 0.24 X10^3/uL; Eosinophils% 3.7 % (0-5); Hematocrit 39.3 % (40-54); Hemoglobin 12.6 g/dL (13.0-16.5); Lymphocyte # 1.75 X10^3/ul (4.0); Mean Corp Hgb Conc 32.1 g/dL (32-36); Mean Corpuscular Hgb 27.1 pg (27.0-32.0); Mean Corpuscular Volume 84.5 fL (80-94); Mean Platelet Vol. 9.9 fl (6.2-12.0); Monocyte# 0.45 X10^3/uL; Monocyte% 6.9 % (0-10); NRBC Flagged by Analyzer 0 % (0-5); Neutrophil # 3.99 X10^3/uL (2.7-7.7); Neutrophil % 61.6 % (47-70); Platelet Count 218 K/mm3 (150-450); RBC Distribution Width CV 14.5 % (11.6-14.6); RBC Distribution Width SD 43.9 fl (35.1-43.9); Red Blood Count 4.65 M/mm3 (4.6-6.2); White Blood Count 6.5 K/mm3 (4.4-11.0)
--- NOTE | 2019-07-30 13:27 | ED.VISSUMM ---
- ER Visit Summary Date of Service: 07/30/19 Chief Complaint: Cough and chest pain History of Present Illness: The patient is a [address] Andrade and Dr. Ramsay. He is a poor informant. He reports that he began having chest pain 2 weeks ago. States that this comes on when he walks and resolves with rest. Describes it as a pressure. At 7-10 at worst and is pain-free currently. States that this radiates to his left shoulder. It makes him diaphoretic and short of breath. He denies any nausea or vomiting. Patient reports that he is also had a cough productive yellow sputum without blood. He denies any fever or chills. He denies sick contacts. He lives by himself and has been compliant with the stay at home order. Physical Examination: Vitals: Stable. Afebrile. General: Well-nourished and well-developed. Head: Normocephalic atraumatic. Neck: Supple, no lymphadenopathy. No JVD. Nontender. Cardiovascular: Regular rate and rhythm. No murmurs. Respiratory: No respiratory distress. Clear to auscultation bilaterally. Abdominal: Soft, nontender, nondistended, normal bowel sounds. No guarding, rebound, or peritoneal signs. Back: Nontender. Extremities: Nontender, no edema. Skin: Normal color, no rash. Neurologic: Alert and oriented ?3. Cranial nerves II through XII are intact. Normal strength and sensation. Psych: Normal affect. Test Results: EKG is sinus at 74 with PVCs. Is unchanged from October of last year. Troponin is negative. BT MUSIC LIBRARY ASSISTANT is normal. Chem-7 shows potassium 3.3, chloride 111, BUN 6, glucose 110. CBC shows an H&H 12.6 and 39.3. Clinical Impression(s) from Imaging Studies Chest X-Ray 07/30/19 12:55 IMPRESSION: Hyperinflation. No acute abnormality is seen. Electronically Signed: Jimmy Mathew, at 13:20 EDT , Service support , Emergency Department Course and Treatment: Patient refused aspirin as he is allergic. He is resting comfortably and is chest pain-free while here. Treatment Plan: Patient was discussed with Dr. Pulido. He will be admitted to the hospital for further evaluation and treatment. Disposition: Admitted in stable condition. Impression: 1. Chest pain. 2. MARY score of 4. 3. URI. This note was generated with [employer] dictation software. It may contain incorrect words, spelling, and punctuation that were not noted in review of the chart prior to signing ED Disposition - Plan for ED Patient: Referrals: Ani Andersen DO [Primary Care Provider] -
[2019-07-30 13:29] LABS: BNP,B-Type NATRIURETIC PEPTIDE 33.1 pg/mL (0-100)
[2019-07-30 13:39] LABS: Lactic Acid 1.3 mmol/L (0.4-1.9)
--- NOTE | 2019-07-30 16:00 | NURSING ---
[address] OBS SAMEER MELO
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
--- NOTE | 2019-07-30 16:04 | CT_ITS ---
STUDY: CTA CHEST REASON FOR EXAM: Male, 69 years old. R/O PE. LEFT SIDED CHEST PRESSURE STARTING YESTERDAY. COUGH X 2 DAYS. WHEEZING. H/O PE, [place], MONIQUE, STENTS, SLEEP APNEA, COPD RADIATION DOSAGE (If Supplied By Facility): CTDIvol = ( 12.27 ) mGy, DLP = ( 389.41 ) mGycm TECHNIQUE: The examination was performed with the intravenous administration of IV 100mL Isovue-370. Post-processing of the angiographic images was performed, with multiplanar reformation and 3D reconstruction. Individualized dose optimization techniques were used for this CT. COMPARISON: 06/25/2018 FINDINGS: Normal enhancement of the main pulmonary artery and right and left pulmonary arteries. Normal enhancement of the bilateral peripheral pulmonary arteries. There is no demonstrated pulmonary embolism. Normal thoracic aorta and visualized great vessels. There is no demonstrated aortic dissection. Normal heart and pericardium. Normal mediastinum. Normal hilar regions. Normal visualized trachea and bronchi. The lungs are well expanded. Normal pulmonary parenchyma. Normal pleura. Normal chest wall structures. Mild levoscoliosis of the thoracic spine with degenerative disc disease. Normal visualized upper abdomen. CT/CTA Chest W/WO Contrast IMPRESSION: Normal CTA chest examination, without a demonstrated pulmonary embolism or arterial dissection. Electronically Signed: Patrick Arambula MD at 17:02 EDT Tel , Service support ,
--- NOTE | 2019-07-30 17:07 | EKG12_ITS ---
Test Reason : CP ADMIT Blood Pressure : / mmHG Vent. Rate : 061 BPM Atrial Rate : 061 BPM P-R Int : 154 ms QRS Dur : 076 ms QT Int : 432 ms P-R-T Axes : 010 041 -30 degrees QTc Int : 434 ms Normal sinus rhythm Septal infarct , age undetermined Abnormal ECG When compared with ECG of 30-JUL-2019 12:11, MANUAL COMPARISON REQUIRED, DATA IS UNCONFIRMED Confirmed by CLARA STEVENSON, MIGUELITO ([id number]), map editor ALEKSANDAR GILBERT ([id number]) on 08/03/2019 3:57:36 PM Referred By: BRAEDEN Confirmed By:MIGUELITO ELIZABETH MD
[2019-07-30] MEDS: Budesonide Respules 0.5 MG/2 ML AMPUL.NEB. INHALATION (17:29)
[2019-07-30] MEDS: Ipratropium/Albuterol Sulfate 3 ML AMPUL.NEB INHALATION (17:29)
[2019-07-30] MEDS: ARIPiprazole 10 MG Tablet PO (21:39)
[2019-07-30] MEDS: Atorvastatin Calcium 40 MG Tablet PO (21:39)
[2019-07-30] MEDS: Heparin Injection (Vial) 5,000 UNIT/ML VIAL 5000 UNIT SC (21:39)
[2019-07-30] MEDS: Tamsulosin HCl 0.4 MG Capsule PO (21:40)
[2019-07-30] MEDS: Donepezil HCl 10 MG Tablet PO (21:40)
[2019-07-30] MEDS: Clopidogrel Bisulfate 75 MG Tablet PO (21:40)
[2019-07-30] MEDS: Pramipexole Di-HCl 0.25 MG Tablet PO (21:40)
[2019-07-30] MEDS: Mirtazapine 15 MG Tablet PO (21:41)
[2019-07-30] MEDS: OLANZapine 10 MG Tablet PO (21:41)
[2019-07-31] VITALS (9 sets, daily range): BP systolic 123–133; BP diastolic 65–75; PULSE 67–88; RESP 16–18; TEMP 36.6–36.9; O2SAT 92–95
[2019-07-31] MEDS: Ipratropium/Albuterol Sulfate 3 ML AMPUL.NEB INHALATION ×2 (01:00→06:56)
[2019-07-31] MEDS: Losartan Potassium 25 MG Tablet 12.5 MG PO (05:29)
[2019-07-31] MEDS: Clopidogrel Bisulfate 75 MG Tablet PO (05:29)
--- NOTE | 2019-07-31 05:55 | NM_ITS ---
CLINICAL: 69-year-old hypertensive, hypercholesterolemic male with history of known coronary atherosclerosis, status post bare-metal stent placement-right coronary artery-2013, drug eluting stent left anterior descending-2019. REST-REGADENOSON 99m Tc SESTAMIBI MYOCARDIAL PERFUSION SPECT COMPARISON: None available FINDINGS: Following the intravenous administration of 12.0 mCi of 99m Tc sestamibi, the resting myocardial perfusion acquisitions demonstrate uniform radiopharmaceutical concentration throughout all left ventricular segments. The patient was administered intravenous regadenoson (0.4 mgm). Following the intravenous administration of 36.0 mCi of 99m Tc sestamibi, the post regadenoson images reveal likewise normal perfusion throughout all left ventricular myocardial segments. The post stress resting left ventricular ejection fraction is calculated to be 58.0 % by gated SPECT technique. Wall motion and end systolic thickening are considered normal. NM/Nuclear Stress Test - Chemical IMPRESSION: 1. NORMAL post STENT REST-REGADENOSON STRESS 99m Tc SESTAMIBI MYOCARDIAL PERFUSION SPECT. A. No evidence of pharmacologically induced left ventricular ischemia. B. Preservation of resting left ventricular systolic function. (Lorna et al, J Nucl Med 37: 105P, 1995). Electronically Signed: Patrick Bae DO at 11:24 EDT Tel , Service support ,
[2019-07-31] MEDS: Budesonide Respules 0.5 MG/2 ML AMPUL.NEB. INHALATION (06:56)
[2019-07-31] MEDS: Sertraline 50 MG Tablet PO (10:44)
[2019-07-31] MEDS: amLODIPine 5 MG Tablet PO (10:44)
[2019-07-31] MEDS: Pantoprazole Sodium 40 MG Tablet PO (10:44)
[2019-07-31] MEDS: lamoTRIgine 100 MG Tablet 200 MG PO (10:44)
--- NOTE | 2019-07-31 11:38 | PCM.DC ---
- Discharge Diagnoses Current Active Problems: Current Active and Chronic Problems (Last Reviewed 07/30/19 @ 11:13 by GAURAV Rae) Dementia (Chronic) CAD (coronary artery disease) (Chronic) Chest pain (Acute) You will use the following diet at home:: Cardiac Your food should be the consistency of: Regular Your liquids should be the consistency of: Regular/Thin Discharge Activity: Return to Normal Activity Allergies/Adverse Reactions: Allergies aspirin Allergy (Verified 07/30/19 12:00) Itching levofloxacin [From Levaquin] Allergy (Verified 07/30/19 12:00) Itching Penicillins Allergy (Verified 07/30/19 12:00) Hives Medications to take at Discharge Ropinirole HCl [Requip] 0.5 mg PO QHS 04/23/16 Albuterol Aerosols [Ventolin Aerosols] 2.5 mg INHALATION Q8H PRN PRN 01/30/17 Tamsulosin HCl [Flomax] 0.4 mg PO QHS 01/30/17 atorvastatin 40 mg tablet 40 mg PO QHS #90 tab 10/16/18 albuterol sulfate 90 mcg/actuation aerosol inhaler 1 puff INHALATION Q6H PRN PRN #18 g 06/22/19 Amlodipine Besylate [Norvasc] 5 mg PO DAILY 07/30/19 Aripiprazole [Abilify] 10 mg PO QHS 07/30/19 Clopidogrel Bisulfate [Clopidogrel] 75 mg PO BID 07/30/19 Donepezil HCl 10 mg PO QHS 07/30/19 Lamotrigine 200 mg PO DAILY 07/30/19 Losartan Potassium 12.5 mg PO DAILY 07/30/19 Mirtazapine [Remeron] 15 mg PO QHS 07/30/19 Olanzapine 10 mg PO QHS 07/30/19 Omeprazole 40 mg PO DAILY 07/30/19 Sertraline HCl 50 mg PO DAILY 07/30/19 Trazodone HCl 150 mg PO QHS PRN 07/30/19 Acetaminophen [Tylenol Tablet] 650 mg PO Q6H PRN PRN tablet 07/31/19 MethylPREDNISolone DosePak [Medrol DosePak] 4 mg PO UD #1 box 07/31/19 The following prescriptions were given: MethylPREDNISolone DosePak [Medrol DosePak] 4 mg PO UD #1 box Transmission Status: Pending to [facility] [place] - [id number] Primary Care Physician: Ani Andersen DO [Primary Care Provider] - Please follow up with your Primary Care Physician in: 1-2 weeks Test Results: Test results from this visit will be discussed in further detail at your follow-up appointment, if applicable. Please Follow Up With: Bethany Courtney NP-C When: 2 weeks Proposed Discharge Date: 07/31/19
--- NOTE | 2019-07-31 11:40 | DS.PCM_ITS ---
Discharge Date and Diagnosis - Problem List Patient Problems: Active and Suspected Problems (Last Reviewed 07/30/19 @ 11:13 by GAURAV Rae) Chest pain (Acute) Date of Admission: 07/30/19 Date of Discharge: 07/31/19 - Primary Discharge Diagnosis Active and Suspected Problems (Last Reviewed 07/30/19 @ 11:13 by GAURAV Rae) Chest pain 2/2 mild COPD exacerbation Hypokalemia Hx CAD MONIQUE Hx PE, acute PE ruled out - Secondary Discharge Diagnosis Chronic Problems Dementia (Chronic) CAD (coronary artery disease) (Chronic) Stented coronary artery (Chronic) Widely patent RCA stent with mild 30-40% in stent restenosis. Successful PTCA/NEVAEH of proximal LAD after FFR showed to be 0.77. Pt received primary stenting with a 3.5 x 20 Promus Synergy, post dilated with a 3.5 x 8 NC Balloon; 75%-->0%. No dissection or perforation or compromise of ostial DIAG#1. Post PCI FFR=0.94. No encroachment seen of ostial LCX. 10/16/2018 History of coronary artery stent placement (Chronic 10/16/18) 08/27/2013; Mid RCA BMS @ [facility] in [place];10/16/2018:Widely patent RCA stent with mild 30-40% in stent restenosis. Successful PTCA/NEVAEH of proximal LAD after FFR showed to be 0.77. Pt received primary stenting with a 3.5 x 20 Promus Synergy, post dilated with a 3.5 x 8 NC Balloon; 75%-->0%. No dissection or perforation or compromise of ostial DIAG#1. Post PCI FFR=0.94. No encroachment seen of ostial LCX. per DJN @ [facility] History of [place] (myocardial infarction) (Chronic) Atherosclerotic heart disease of [place] coronary artery without angina pectoris (Chronic) Dyspnea on exertion (Chronic) Benign hypertensive heart disease (Chronic) Wheezing (Chronic) Fatigue (Chronic) Chest tightness (Chronic) Cannabis dependence (Chronic) Hypercholesteremia (Chronic) Bipolar disorder (Chronic) Hyperglycemia (Chronic) DDD (degenerative disc disease) (Chronic) BPH (benign prostatic hyperplasia) (Chronic) Pleurisy (Chronic) Anxiety (Chronic) Depression (Chronic) Hyperlipidemia (Chronic) Trigger finger (Chronic) Long-term use of high-risk medication (Chronic) MONIQUE (obstructive sleep apnea) (Chronic) Unstable angina (Chronic) Dizziness (Chronic) Syncope and collapse (Chronic) Stage 2 moderate COPD by GOLD classification (Chronic) History of pulmonary embolism (Chronic) Asthma (Chronic) partially reversible on PFT, consistent with Asthma/COPD overlap Smoking addiction (Chronic) Hospital Course and Treatment Imaging Results: 07/31/19 05:55 Nuclear Stress Test - Chemical [NM] AM (NON MEDS) NM/Nuclear Stress Test - Chemical IMPRESSION: 1. NORMAL post STENT REST-REGADENOSON STRESS 99m Tc SESTAMIBI MYOCARDIAL PERFUSION SPECT. A. No evidence of pharmacologically induced left ventricular ischemia. B. Preservation of resting left ventricular systolic function. (Lorna et al, J Nucl Med 37: 105P, 1995). CT/CTA Chest W/WO Contrast IMPRESSION: Normal CTA chest examination, without a demonstrated pulmonary embolism or arterial dissection. RAD/Chest 1 View (Portable) IMPRESSION: Hyperinflation. No acute abnormality is seen. Operations: None Procedures: Stress test Summary of Care Provided: Hospital Course: The patient is a 69 year old M with pmhx as above notably COPD, CAD, prior PE, who presented to the ER with c/o chest pain. He was having CP, SOB, wheezing and had a telehealth visit with his pulmonary SUPERINTENDENT MAINTENANCE Bethany Courtney who advised he go to the ER. In the ER he had negative EKG, negative troponin, and negative CXR. CTA chest was obtained which was negative for PE. He was admitted for chest pain work up. He was found to be wheezy however with no hypoxia and was placed on pulmicort. He had trop negative x3, and the following morning he had a negative stress test. He was still SOB and wheezy with no hypoxia so he was placed on a medrol dose pack. He will continue his home nebulizer therapy. He was advised to follow up with his pulmonary SUPERINTENDENT MAINTENANCE in 2 weeks, and with his PCP in 1-2 weeks. He was discharged home in stable condition. This patient was seen by Davion Tan PA-C under the supervision of Doctor Pulido. [] Patient Problems: Active and Suspected Problems (Last Reviewed 07/30/19 @ 11:13 by Bethany Courtney, SUPERINTENDENT MAINTENANCE-C) Chest pain (Acute) - Physical Exam Vitals/I&O's: Vital Signs Temp Pulse Resp BP Pulse Ox 97.8 F 71 18 133/70 H 94 07/31/19 10:40 07/31/19 11:01 07/31/19 10:40 07/31/19 10:40 07/31/19 10:40 Oxygen Delivery Method Room Air Weight: 178 lb 2.136 oz Body Mass Index (BMI) 22.8 Intake and Output for Last 24 Hours 07/29/19 07/30/19 07/31/19 23:59 23:59 23:59 Intake Total 420 / 420 0 / 0 Balance 420 / 420 0 / 0 General: Alert, Oriented x3, Cooperative HEENT: Atraumatic, PERRLA, EOMI, Normocephalic Neck: Supple, No JVD, Negative Carotid Bruits Lungs: Normal air movement, Wheezes Cardiovascular: Regular rate, No murmurs Abdomen: Bowel Sounds Present, Soft, Non Tender Extremities: No edema, Capillary Refill Less than 3 Seconds Skin: No rashes, No breakdown Musculoskeletal: No Tenderness to Palpation of Joints or Extremities Neurological: Cranial nerves II-XII grossly intact Psych/Mental Status: Normal Affect, Appropriate, Alert and oriented to time, place, person, mood and affect Microbiology Past 72 Hours 07/30/19 13:20 Mucosa - Nasopharyngeal Coronavirus COVID-19 PCR - Final Laboratory Results 07/30/19 12:12: Lactic Acid 1.3 07/30/19 12:12: WBC 6.5, RBC 4.65, Hgb 12.6 L, Hct 39.3 L, MCV 84.5, MCH 27.1, MCHC 32.1, RDW Std Deviation 43.9, RDW Coeff of Tad 14.5, Plt Count 218, MPV 9.9, Immature Gran % (Auto) 0.300, Neut % (Auto) 61.6, Lymph % (Auto) 27.0, Lynn % (Auto) 6.9, Eos % (Auto) 3.7, Baso % (Auto) 0.5, Absolute Neuts (auto) 4.0, Absolute Lymphs (auto) 1.75, Nucleated RBC % 0 07/30/19 12:12: B-Natriuretic Peptide 33.1 07/30/19 12:35: WBC Cancelled, Corrected WBC Cancelled, RBC Cancelled, Hgb Cancelled, Hct Cancelled, MCV Cancelled, MCH Cancelled, MCHC Cancelled, RDW Std Deviation Cancelled, RDW Coeff of Tad Cancelled, Plt Count Cancelled, MPV Cancelled, Immature Gran % (Auto) Cancelled, Neut % (Auto) Cancelled, Lymph % (Auto) Cancelled, Lynn % (Auto) Cancelled, Eos % (Auto) Cancelled, Baso % (Auto) Cancelled, Absolute Neuts (auto) Cancelled, Absolute Lymphs (auto) Cancelled, Total Counted Cancelled, Neutrophils % (Manual) Cancelled, Band Neutrophils % Cancelled, Lymphocytes % (Manual) Cancelled, Monocytes % (Manual) Cancelled, Eosinophils % (Manual) Cancelled, Basophils % (Manual) Cancelled, Metamyelocytes % Cancelled, Myelocytes % Cancelled, Promyelocytes % Cancelled, Blast Cells % Cancelled, Plasma Cell % (Manual) Cancelled, Other Cells % Cancelled, Nucleated RBC % Cancelled, Nucleated RBCs/100 WBC Cancelled, Differential Comment Cancelled, Diff Path Review Cancelled, Hypersegmented Neuts Cancelled, Atypical Lymphocytes Cancelled, Reactive Lymphocytes Cancelled, Smudge Cells Cancelled, Toxic Granulation Cancelled, Toxic Vacuolation Cancelled, Dohle Bodies Cancelled, Capri Rods Cancelled, Platelet Estimate Cancelled, Plt Morphology Comment Cancelled, RBC Morphology Cancelled, Polychromasia Cancelled, Hypochromasia Cancelled, Poikilocytosis Cancelled, Basophilic Stippling Cancelled, Anisocytosis Cancelled, Microcytosis Cancelled, Macrocytosis Cancelled, Spherocytes Cancelled, Sickle Cells Cancelled, Target Cells Cancelled, Tear Drop Cells Cancelled, Ovalocytes Cancelled, Stomatocytes Cancelled, [place] Bodies Cancelled, [place] Cells Cancelled, Bite Cells Cancelled, Crenated Cell Cancelled, Acanthocytes (Spur) Cancelled, Rouleaux Cancelled, Schistocytes Cancelled 07/30/19 12:35: Sodium 145, Potassium 3.3 L, Chloride 111 H, Carbon Dioxide 30.0, Anion Gap 4 L, BUN 6 L, Creatinine 1.11, Estim Creat Clear Calc 68.92, Est GFR (MDRD) Af Amer 84, Est GFR (MDRD) Non-Af 69, BUN/Creatinine Ratio 5.4 L, Glucose 110 H, Calcium 8.7, Troponin I < 0.015 07/30/19 12:35: B-Natriuretic Peptide Cancelled 07/30/19 13:20: COVID-19 (CARLOS) Cancelled 07/30/19 16:46: Troponin I < 0.015 07/30/19 19:31: Troponin I < 0.015 Current Medications Acetaminophen (Tylenol) 650 mg PO Q6H PRN PRN PRN Reason: Pain Score 1-10/Temp > 100.7 F Albuterol/Ipratropium (Duoneb) 3 ml INHALATION Q6H.RT COUNTS INCLUDE 234 BEDS AT THE [facility] Last Admin: 07/31/19 06:56 Dose: 3 ml Documented by: Amlodipine Besylate (Norvasc) 5 mg PO DAILY COUNTS INCLUDE 234 BEDS AT THE [facility] Last Admin: 07/31/19 10:44 Dose: 5 mg Documented by: Aripiprazole (Abilify) 10 mg PO QHS COUNTS INCLUDE 234 BEDS AT THE [facility] Last Admin: 07/30/19 21:39 Dose: 10 mg Documented by: Atorvastatin Calcium (Lipitor) 40 mg PO QHS COUNTS INCLUDE 234 BEDS AT THE [facility] Last Admin: 07/30/19 21:39 Dose: 40 mg Documented by: Budesonide (Pulmicort Aerosol) 0.5 mg INHALATION BID.RT COUNTS INCLUDE 234 BEDS AT THE [facility] Last Admin: 07/31/19 06:56 Dose: 0.5 mg Documented by: Clopidogrel Bisulfate (Plavix) 75 mg PO BID COUNTS INCLUDE 234 BEDS AT THE [facility] Last Admin: 07/31/19 05:29 Dose: 75 mg Documented by: Donepezil HCl (Aricept) 10 mg PO QHS COUNTS INCLUDE 234 BEDS AT THE [facility] Last Admin: 07/30/19 21:40 Dose: 10 mg Documented by: Heparin Sodium (Porcine) (Heparin Na) 5,000 unit SC Q12 COUNTS INCLUDE 234 BEDS AT THE [facility] Last Admin: 07/31/19 10:21 Dose: Not Given Documented by: Lamotrigine (Lamictal) 200 mg PO DAILY COUNTS INCLUDE 234 BEDS AT THE [facility] Last Admin: 07/31/19 10:44 Dose: 200 mg Documented by: Losartan Potassium (Cozaar) 12.5 mg PO DAILY COUNTS INCLUDE 234 BEDS AT THE [facility] Last Admin: 07/31/19 05:29 Dose: 12.5 mg Documented by: Mirtazapine (Remeron) 15 mg PO QHS COUNTS INCLUDE 234 BEDS AT THE [facility] Last Admin: 07/30/19 21:41 Dose: 15 mg Documented by: Olanzapine (Zyprexa) 10 mg PO QHS COUNTS INCLUDE 234 BEDS AT THE [facility] Last Admin: 07/30/19 21:41 Dose: 10 mg Documented by: Pantoprazole Sodium (Protonix) 40 mg PO DAILY COUNTS INCLUDE 234 BEDS AT THE [facility] Last Admin: 07/31/19 10:44 Dose: 40 mg Documented by: Pramipexole Dihydrochloride (Mirapex) 0.25 mg PO QHS COUNTS INCLUDE 234 BEDS AT THE [facility] Last Admin: 07/30/19 21:40 Dose: 0.25 mg Documented by: Sertraline HCl (Zoloft) 50 mg PO DAILY COUNTS INCLUDE 234 BEDS AT THE [facility] Last Admin: 07/31/19 10:44 Dose: 50 mg Documented by: Sodium Chloride () 10 - 40 ml IV UD PRN PRN Reason: SALINE FLUSH Tamsulosin HCl (Flomax) 0.4 mg PO QHS COUNTS INCLUDE 234 BEDS AT THE [facility] Last Admin: 07/30/19 21:40 Dose: 0.4 mg Documented by: Trazodone HCl (Desyrel) 150 mg PO QHS PRN PRN Reason: SLEEP Discharge Diet: Soft diet, 2000 mg Sodium Diet Discharge Activity: Return to Normal Activity Home Medications: Medications to take at Discharge Ropinirole HCl [Requip] 0.5 mg PO QHS 04/23/16 Albuterol Aerosols [Ventolin Aerosols] 2.5 mg INHALATION Q8H PRN PRN 01/30/17 Tamsulosin HCl [Flomax] 0.4 mg PO QHS 01/30/17 atorvastatin 40 mg tablet 40 mg PO QHS #90 tab 10/16/18 albuterol sulfate 90 mcg/actuation aerosol inhaler 1 puff INHALATION Q6H PRN PRN #18 g 06/22/19 Amlodipine Besylate [Norvasc] 5 mg PO DAILY 07/30/19 Aripiprazole [Abilify] 10 mg PO QHS 07/30/19 Clopidogrel Bisulfate [Clopidogrel] 75 mg PO BID 07/30/19 Donepezil HCl 10 mg PO QHS 07/30/19 Lamotrigine 200 mg PO DAILY 07/30/19 Losartan Potassium 12.5 mg PO DAILY 07/30/19 Mirtazapine [Remeron] 15 mg PO QHS 07/30/19 Olanzapine 10 mg PO QHS 07/30/19 Omeprazole 40 mg PO DAILY 07/30/19 Sertraline HCl 50 mg PO DAILY 07/30/19 Trazodone HCl 150 mg PO QHS PRN 07/30/19 Acetaminophen [Tylenol Tablet] 650 mg PO Q6H PRN PRN tablet 07/31/19 MethylPREDNISolone DosePak [Medrol DosePak] 4 mg PO UD #1 box 07/31/19 Following Prescrptions Were Given to Patient: MethylPREDNISolone DosePak [Medrol DosePak] 4 mg PO UD #1 box Transmission Status: Pending to [facility] [place] - [id number] Primary Care Physician: Ani Andersen DO [Primary Care Provider] - Please follow up with your Primary Care Physician in: 1-2 weeks Please Follow Up With: Bethany Courtney NP-C When: 2 weeks Disposition: Home Minutes spent on discharge:: 35 Patient Condition:: Stable Medical Necessity - Tobacco Use Smoking Status: Former smoker Tobacco Use: Cigarettes Meaningful Use Info Meaningful Use Diagnoses (Choose all that apply): None applicable
--- NOTE | 2019-08-02 07:34 | STRESSREP_ITS ---
Stress Test Report Pharmacologic myocardial perfusion stress test. 69-year-old man with a history of chest pain. Stress protocol: Resting EKG demonstrates normal sinus rhythm with a rate of 64 bpm normal intervals are noted resting blood pressures 142/78 mmHg. 0.4 mg of regadenoson was infused per usual protocol followed by Intravenous saline flush injection continuous EKG monitoring was performed. Patient maintained sinus rhythm throughout the recording. At rest there were no ST or T wave changes noted suggest ischemia peak infusion nonspecific ST-T wave changes were noted with no evidence of ischemia. The resting blood pressure was 142/78 final blood pressure was 148/72. Myocardial perfusion protocol. 12.0 technetium 99m sestamibi was injected at rest. 0.4 mg of regadenoson was infused per usual protocol. At peak infusion 36.0 technetium 99m sestamibi was injected stress images were obtained stress and rest images were reconstructed and compared in the short axis vertical long horizontal long axis. Gated images were also obtained. Perfusion SPECT analysis: Review of the images demonstrated normal perfusion in all areas of the m yocardium. This was read by the radiologist. Conclusion: Normal pharmacologic myocardial perfusion stress test. Preserved ejection fraction.
== END 2019-07-31 11:39 | disposition home or self-care (01) ==
LOC: ED 13:25 → PCU 16:58
PROVIDERS: Admitting Provider Internal Medicine; Emergency Provider Emergency Medicine; PCP Internal Medicine; Visit Provider Internal Medicine
DX: J44.1 Chronic obstructive pulmonary disease with (acute) exacerbation (principal); E87.6 Hypokalemia; G47.33 Obstructive sleep apnea (adult) (pediatric); I25.10 Atherosclerotic heart disease of native coronary artery without angina pectoris; I11.9 Hypertensive heart disease without heart failure; F31.9 Bipolar disorder, unspecified; F03.90 Unspecified dementia, unspecified severity, without behavioral disturbance, psychotic disturbance, mood disturbance, and anxiety; E78.5 Hyperlipidemia, unspecified; F20.9 Schizophrenia, unspecified; I25.2 Old myocardial infarction; F12.20 Cannabis dependence, uncomplicated; F41.9 Anxiety disorder, unspecified; N40.0 Benign prostatic hyperplasia without lower urinary tract symptoms; R94.31 Abnormal electrocardiogram [ECG] [EKG]; Z79.899 Other long term (current) drug therapy; Z79.02 Long term (current) use of antithrombotics/antiplatelets; Z86.711 Personal history of pulmonary embolism; Z87.891 Personal history of nicotine dependence; R06.02 Shortness of breath
CPT/HCPCS: 36415; 71045; 71275; 78452; 80048; 83605; 83880; 84484; 85025; 87635; 93005; 93017; 94640; 96372; 99218; 99285; A9500; G2023; Q9967; A4216; G0378; J2785; U0002

== ENCOUNTER 2020-03-13 08:52 | Emergency (ER) | payer MEDICARE, MEDICAID, SELFPAY ==
[2018-10-16 10:45] VITALS: BMI 21.8
[2019-10-11 09:26] VITALS: BMI 23.1
[2020-03-13 08:53] VITALS: BP 157/80; PULSE 74; RESP 16; TEMP 36.9; O2SAT 97; BMI 23.4
--- NOTE | 2020-03-13 09:00 | EKG12_ITS ---
Test Reason : SYNCOPE Blood Pressure : / mmHG Vent. Rate : 067 BPM Atrial Rate : 067 BPM P-R Int : 148 ms QRS Dur : 074 ms QT Int : 414 ms P-R-T Axes : 018 029 004 degrees QTc Int : 437 ms Normal sinus rhythm Nonspecific ST abnormality Abnormal ECG Confirmed by AMARA STEVENSON, MARCUS ([id number]), primer expeditor and drier GRACIELA BARBOZA ([id number]) on 03/20/2020 9:09:24 AM Referred By: ASHKAN Confirmed By:MELISSA MALONEY MD
--- NOTE | 2020-03-13 09:01 | CT_ITS ---
STUDY: CT BRAIN WITHOUT CONTRAST REASON FOR EXAM: Male, 69 years old. DIZZY, FALL 4 DAYS AGO, HX-CAD, ID RADIATION DOSAGE (If Supplied By Facility): CTDIvol = ( 44.99 ) mGy, DLP = ( 745.49 ) mGycm TECHNIQUE: Transaxial CT imaging of the brain was performed without administration of intravenous contrast material. Individualized dose optimization techniques were used for this CT. COMPARISON: No relevant priors. FINDINGS: Normal soft tissue structures. Normal calvarium. Normal size ventricles and extra-axial spaces for the patient''s age. There are areas of decreased attenuation within the white matter tracts of the supratentorial brain, consistent with microvascular disease changes. Normal basal ganglia and thalami. Normal brainstem. Normal cerebellum. There is no intracranial hemorrhage. There are no findings of an acute ischemic infarction. Normal visualized paranasal sinuses. CT/Brain/Head without Contrast IMPRESSION: Chronic involutional changes of the brain. Electronically Signed: Shena Capellan, at 10:08 EST Tel , Service support ,
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
[2020-03-13 09:22] LABS: Absolute Lymphocyte Count 1.85 X10^3/uL (0.83-4.51); Absolute Neutrophil Count 6.6 X10^3/uL (2.0-7.7); Basophil# 0.04 X10^3/uL; Basophil% 0.4 % (0-1); Eosinophil# 0.17 X10^3/uL; Eosinophils% 1.8 % (0-5); Hematocrit 41.8 % (40-54); Hemoglobin 12.9 g/dL (13.0-16.5); Lymphocyte # 1.85 X10^3/ul (4.0); Mean Corp Hgb Conc 30.9 g/dL (32-36); Mean Corpuscular Hgb 25.8 pg (27.0-32.0); Mean Corpuscular Volume 83.6 fL (80-94); Mean Platelet Vol. 9.8 fl (6.2-12.0); Monocyte% 6.5 % (0-10); NRBC Flagged by Analyzer 0 % (0-5); Neutrophil # 6.57 X10^3/uL (2.7-7.7); Platelet Count 275 K/mm3 (150-450); RBC Distribution Width CV 14.6 % (11.6-14.6); RBC Distribution Width SD 44.8 fl (35.1-43.9); White Blood Count 9.3 K/mm3 (4.4-11.0)
--- NOTE | 2020-03-13 09:25 | RAD_ITS ---
STUDY: X-RAY CHEST REASON FOR EXAM: Male, 69 years old. pt. lightheaded, hit head four days ago, fell again yesterday TECHNIQUE: Single AP portable view of the chest. COMPARISON: None. FINDINGS: The lungs are clear and expanded. There is no demonstrated pleural abnormality. Normal size heart. Normal mediastinum and bessy. Normal visualized pulmonary arteries. Normal visualized aortic arch and descending thoracic aorta. Normal visualized thoracic spine. There is degenerative osteoarthritis of the bilateral shoulders. There is no demonstrated abnormality of the visualized soft tissue structures of the upper abdomen. RAD/Chest 1 View (Portable) IMPRESSION: Degenerative changes, as described above. No demonstrated acute cardiopulmonary process. Electronically Signed: Shena Capellan, at 10:10 EST Tel , Service support ,
[2020-03-13] MEDS: Lidocaine 5% Patch 1 PATCH TOPICAL (09:33)
[2020-03-13 09:41] LABS: Anion Gap 7 (5-15); BUN 9 mg/dL (7-18); BUN/Creat Ratio 7.4 RATIO (10-20); Calcium,Total 8.6 mg/dL (8.5-10.1); Chloride 105 mmol/L (98-107); Creatinine, Serum 1.21 mg/dL (0.70-1.30); EST Glomerular Filtration Rate 63 mL/min (>60); Est Glom Filt Rate - Afr Amer 76 mL/min (>60); Glucose 129 mg/dL (74-106); Potassium 3.5 mmol/L (3.5-5.1); Sodium Level 140 mmol/L (136-145)
--- NOTE | 2020-03-13 10:00 | RAD_ITS ---
STUDY: X-RAY - SACRUM/COCCYX REASON FOR EXAM: Male, 69 years old. multiple recent falls TECHNIQUE: 3 view(s) of the sacrum and coccyx were obtained. COMPARISON: None. FINDINGS: There is degenerative arthrosis of the bilateral sacroiliac joints. Normal visualized sacral ala and fused sacral bodies. Normal sacrococcygeal junction with a normal angulation. Normal coccygeal segments. The presacral soft tissue structures are unremarkable. RAD/Sacrum-Coccyx min 2 Views IMPRESSION: No acute bone injury of the sacrum and coccyx. Electronically Signed: Shena Capellan, at 11:10 EST Tel , Service support ,
[2020-03-13 10:09] VITALS: BP 121/72; BP 140/78; BP 150/77; PULSE 62; PULSE 69; PULSE 71
[2020-03-13 10:52] VITALS: BP 152/79; PULSE 64; RESP 12; O2SAT 96
[2020-03-13 12:33] VITALS: BP 176/48; PULSE 78; RESP 17; O2SAT 97
== END 2020-03-13 12:39 | disposition home or self-care (01) ==
PROVIDERS: Emergency Provider Student in an Organized Health Care Education/Training Program; PCP Internal Medicine
DX: S06.0X9A Concussion with loss of consciousness of unspecified duration, initial encounter (principal); I25.10 Atherosclerotic heart disease of native coronary artery without angina pectoris; J45.909 Unspecified asthma, uncomplicated; Z87.891 Personal history of nicotine dependence; Z79.02 Long term (current) use of antithrombotics/antiplatelets; W01.0XXA Fall on same level from slipping, tripping and stumbling without subsequent striking against object, initial encounter
CPT/HCPCS: 70450; 71045; 72220; 80048; 84484; 85025; 93005; 99285; A4216

== ENCOUNTER → 2020-03-21 09:46 | Outpatient (CLI) | payer MEDICARE, MEDICAID, SELFPAY ==
[2018-10-16 10:45] VITALS: BMI 21.8
[2019-09-28 10:24] VITALS: BMI 22.6
[2020-03-13 08:53] VITALS: BMI 23.4
--- NOTE | 2020-03-21 16:07 | PFTCOMP ---
COMPLETE PULMONARY FUNCTION TEST INTERPRETATION Brief HPI: Patient is a 69 year old male, currently under the care of myself, who presents to [facility] for complete pulmonary function tests secondary to diagnosis of COPD. Respiratory therapist reports good effort and reproducible results. Interpretation: Forced expiration spirometry shows a severe large airways obstructive ventilatory defect with an FEV1 of 64% predicted. There is a significant bronchodilator response in FVC and FEV1 by strict ATS criteria. Spirograms are of good quality and plateau slowly, indicating slowly emptying areas of the lungs. The respiratory flow volume loop shows decreased expiratory flow rates at all lung volumes consistent with airway obstruction. Lung volumes by body plethysmography show a decreased total lung capacity at 4.68 L, 63% predicted. All other lung volumes are reduced symmetrically. Diffusion capacity by carbon monoxide is normal at 82% predicted. The airway resistance is elevated. Compared to previous pulmonary function tests from 03/15/2019, there has been a significant reduction in lung volumes by 22% or more. Spirometry is relatively unchanged using postbronchodilator values. Impression: Partially reversible moderately severe mixed ventilatory defect with relatively preserved diffusion capacity.
== END ==
PROVIDERS: PCP Internal Medicine; Referring Provider Internal Medicine Critical Care Medicine; Visit Provider Internal Medicine Critical Care Medicine
DX: J44.9 Chronic obstructive pulmonary disease, unspecified (principal)
CPT/HCPCS: 94060; 94726; 94729

== ENCOUNTER → 2020-03-23 12:21 | Outpatient (CLI) | payer MEDICARE, MEDICAID, SELFPAY ==
[2018-10-16 10:45] VITALS: BMI 21.8
[2019-09-28 10:24] VITALS: BMI 22.6
[2020-03-13 08:53] VITALS: BMI 23.4
[2020-03-23 12:30] VITALS: PULSE 82; PULSE 83; PULSE 92; PULSE 93; PULSE 95; O2SAT 94; O2SAT 95; O2SAT 96
--- NOTE | 2020-03-23 17:13 | PCM.PSN.6M ---
PSN 6 Minute Walk Test - 6 Minute Walk Test 6 Minute Walk Test: 6 Minute Walk Test PSN:6-Minute Walk Test Start: 03/23/20 13:22 Freq: Status: Active Protocol: [id number] Document 03/23/20 12:30 FR (Rec: 03/23/20 13:30 FR [id number]) 6 Minute Walk Test Date Performed 03/23/20 Time Performed 12:30 Height 6 ft 2 in Weight: 79.832 kg Weight in Pounds 176.[address]: Jose F Phillips Assistive device used: Cane Pre-test Oxygen Delivery Method Room Air Pulse Ox (%) 96 Pulse Rate (60-100 beats/min) 82 Dyspnea She Scale (0-10) 0 Exertion She Scale (6-20) 10 1st minute Oxygen Delivery Method Room Air Pulse Ox (%) 94 Pulse Rate (60-100 beats/min) 92 2nd minute Oxygen Delivery Method Room Air Pulse Ox (%) 94 Pulse Rate (60-100 beats/min) 93 3rd minute Oxygen Delivery Method Room Air Pulse Ox (%) 95 Pulse Rate (60-100 beats/min) 93 4th minute Oxygen Delivery Method Room Air Pulse Ox (%) 94 Pulse Rate (60-100 beats/min) 93 5th minute Oxygen Delivery Method Room Air Pulse Ox (%) 94 Pulse Rate (60-100 beats/min) 92 Reported Symptoms Increased Work of Breathing 6th minute Oxygen Delivery Method Room Air Pulse Ox (%) 94 Pulse Rate (60-100 beats/min) 95 Dyspnea She Scale (0-10) 5 Exertion She Scale (6-20) 12 Reported Symptoms Increased Work of Breathing Post-test Oxygen Delivery Method Room Air Pulse Ox (%) 94 Pulse Rate (60-100 beats/min) 83 Full Laps Walked 18 Partial Lap, Number of Tiles Walked 4 Total Distance Walked (ft) 1066 - Interpretation Interpretation: The patient was able to ambulate 1066 feet over the course of 6 minutes on room air with the assistance of a cane in no breaks. The patient experienced no significant desaturation or tachycardia during testing. These findings are consistent with a musculoskeletal limitation to exercise tolerance. - Recommendations Recommendations: No supplemental oxygen is indicated at this time.
== END ==
PROVIDERS: PCP Internal Medicine; Referring Provider Internal Medicine Critical Care Medicine; Visit Provider Internal Medicine Critical Care Medicine
DX: J44.9 Chronic obstructive pulmonary disease, unspecified (principal)
CPT/HCPCS: 94618

== ENCOUNTER 2020-06-26 10:15 | Emergency (ER) | payer MEDICARE, SELFPAY ==
[2018-10-16 10:45] VITALS: BMI 21.8
[2020-05-22 09:23] VITALS: BMI 22.4
[2020-06-26 10:17] VITALS: BP 142/85; PULSE 84; RESP 16; TEMP 35.9; O2SAT 97; BMI 22.5
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
--- NOTE | 2020-06-26 10:57 | RAD_ITS ---
STUDY: X-RAY - RIGHT SHOULDER REASON FOR EXAM: Male, 70 years old. Injury TECHNIQUE: 3 view(s) of the shoulder. COMPARISON: None. FINDINGS: There is mild degenerative arthrosis of the glenohumeral articulation. There is degenerative arthrosis of the acromioclavicular joint without inferior osseous spur formation. Normal acromion. Normal humeral head and visualized proximal humerus. The soft tissue structures are unremarkable. Normal visualized pulmonary apex. RAD/Shoulder min 2 Views IMPRESSION: Mild degree of degenerative changes. Electronically Signed: Jimmy Mathew MD at 11:17 EDT , Service support ,
== END 2020-06-26 12:22 | disposition home or self-care (01) ==
LOC: ED 11:28
PROVIDERS: Emergency Provider Emergency Medicine; PCP Internal Medicine
DX: S49.91XA Unspecified injury of right shoulder and upper arm, initial encounter (principal); I25.10 Atherosclerotic heart disease of native coronary artery without angina pectoris; Z87.891 Personal history of nicotine dependence; Z86.711 Personal history of pulmonary embolism; X58.XXXA Exposure to other specified factors, initial encounter
CPT/HCPCS: 73030; 99283

== ENCOUNTER 2020-07-19 10:15 | Emergency (ER) | payer MEDICARE, MEDICAID, SELFPAY ==
[2018-10-16 10:45] VITALS: BMI 21.8
[2020-07-19] VITALS (10 sets, daily range): BP systolic 117–152; BP diastolic 78–85; PULSE 67–72; RESP 16–18; TEMP 36.5; O2SAT 96–98; BMI 22.2
--- NOTE | 2020-07-19 10:32 | EKG12_ITS ---
Test Reason : MEDICAL CLEARANCE Blood Pressure : / mmHG Vent. Rate : 067 BPM Atrial Rate : 067 BPM P-R Int : 164 ms QRS Dur : 082 ms QT Int : 408 ms P-R-T Axes : 047 026 027 degrees QTc Int : 431 ms Normal sinus rhythm Septal infarct , age undetermined Abnormal ECG Confirmed by CLARA STEVENSON, MIGUELITO ([id number]), continuity editor GRACIELA BARBOZA ([id number]) on 07/24/2020 12:27:07 PM Referred By: MR Confirmed By:MIGUELITO ELIZABETH MD
--- NOTE | 2020-07-19 10:34 | EDS_ITS ---
HPI <Dr. Reagan Bruno MD - Last Filed: 07/19/20 14:49> History of Present Illness Chief Complaint: Suicidal Narrative Narrative: Patient presenting for evaluation secondary to suicidal ideation. Patient does have an underlying psychiatric history. Patient states that he has had suicidal ideations in the past. Recently the patient reports that he is dealing with grief from the of his brother, nephew, and 19-year-old dog that is all happened within around the last month or so. Patient states that he is having feelings of no longer wanting to be here. He denies that he has a specific plan of suicide. He denies being homicidal or hallucinating. He denies any somatic complaints currently. Review of systems otherwise negative. PFSH <Dr. Reagan Bruno MD - Last Filed: 07/19/20 14:49> [facility] Medical History Anxiety Asthma Atherosclerotic heart disease of [place] coronary artery without angina pectoris Bipolar disorder BPH (benign prostatic hyperplasia) Cannabis dependence Chest pain Chest tightness DDD (degenerative disc disease) Dementia Depression Dyspnea on exertion Essential (primary) hypertension Fatigue History of pulmonary embolism Hyperlipidemia IBS (irritable bowel syndrome) Lung nodule < 6cm on CT MONIQUE (obstructive sleep apnea) Peptic ulcer disease Pleurisy PVCs (premature ventricular contractions) Restless leg syndrome Schizophrenia Smoking greater than 40 pack years Stage 2 moderate COPD by GOLD classification Syncope and collapse Trigger finger Wheezing Home Medications ropinirole 0.5 mg PO QHS 04/23/16 [History Last Taken 07/29/19] tamsulosin 0.4 mg PO QHS 01/30/17 [History Last Taken 07/29/19] aripiprazole 10 mg PO QHS 07/30/19 [History Last Taken 07/29/19] donepezil 10 mg PO QHS 07/30/19 [History Last Taken 07/29/19] lamotrigine 200 mg PO DAILY 07/30/19 [History Last Taken 07/30/19] mirtazapine 15 mg PO QHS 07/30/19 [History Last Taken 07/29/19] olanzapine 10 mg PO QHS 07/30/19 [History Last Taken 07/29/19] omeprazole 40 mg PO DAILY 07/30/19 [History Last Taken 07/30/19] sertraline 50 mg PO DAILY 07/30/19 [History Last Taken 07/30/19] trazodone 150 mg PO QHS PRN 07/30/19 [History Last Taken Unknown] acetaminophen 650 mg PO Q6H PRN PRN tab 07/31/19 [Rx Last Taken Unknown] losartan 25 mg tablet 12.5 mg PO DAILY #45 tab 09/23/19 [Rx Last Taken Unknown] atorvastatin 40 mg tablet 40 mg PO QHS #90 tab 09/24/19 [Rx Last Taken Unknown] metformin 500 mg/5 mL oral suspension,extended release 500 mg PO DAILY 09/28/19 [History Last Taken Unknown] albuterol sulfate 90 mcg/actuation aerosol inhaler 1 puff INHALATION Q6H PRN PRN #18 g 12/20/19 [Rx Last Taken Unknown] amlodipine 5 mg tablet 5 mg PO DAILY #90 tab 03/09/20 [Rx Last Taken Unknown] fluticasone fur. 100 mcg-umeclid 62.5 mcg-vilant 25 mcg inhalat.powder 1 inh INHALATION DAILY #60 ea 03/09/20 [Rx Last Taken Unknown] albuterol sulfate 2.5 mg INHALATION Q8H PRN PRN #180 ml 03/28/20 [Rx Last Taken Unknown] clopidogrel 75 mg tablet 75 mg PO BID #180 tab 05/22/20 [Rx Last Taken Unknown] potassium chloride 10 mEq tablet,extended release 10 meq PO DAILY 05/22/20 [History Last Taken Unknown] meloxicam 7.5 mg PO DAILY #7 tab 06/26/20 [Rx Last Taken Unknown] Allergy/AdvReac Type Severity Reaction Status Date / Time aspirin Allergy Itching Verified 07/19/20 11:14 levofloxacin [From Levaquin] Allergy Hives Verified 07/19/20 11:14 Penicillins Allergy Hives Verified 07/19/20 11:14 Family History Mother CAD (coronary artery disease) Sister Diabetes Surgical History H/O cervical spine surgery H/O ventral hernia repair History of appendectomy History of arthroscopy History of cholecystectomy History of coronary artery stent placement (10/16/18) History of left heart catheterization (04/2016) Social History Smoking Status: Former smoker quit date: 02/14/15 second hand exposure: Yes alcohol intake: former details: Quit 5 years ago substance use type: does not use caffeine: Yes (4/day) Type: carbonated beverages Number of servings: 3 and coffee Number of servings: 6 what type of physical activity do you participate in: walking ROS <Dr. Reagan Bruno MD - Last Filed: 07/19/20 14:49> ROS ED Constitutional Constitutional ED: Denies chills or fever(s) ENT ENT ED: Denies rhinorrhea Cardiovascular Cardiovascular: Denies chest pain Respiratory/Chest Respiratory/Chest: Denies cough or dyspnea Gastrointestinal Gastrointestinal: Denies abdominal pain, diarrhea, nausea or vomiting Genitourinary Genitourinary ED: Denies dysuria or hematuria Musculoskeletal Musculoskeletal: Denies back pain Integumentary Denies rash Neurologic Neurologic: Denies paresthesias or weakness Psychiatric Psychiatric: Reports depression and suicidal ideation; Denies hallucinations or homicidal ideation Endocrine Endocrinology: Denies fatigue Allergic/Immunologic Allergic/Immunologic ED: Denies urticaria EXAM <Dr. Reagan Bruno MD - Last Filed: 07/19/20 14:49> Physical Exam Const Vital Signs: 07/19/20 10:17 07/19/20 11:17 07/19/20 12:15 Temperature 97.7 F L Temperature Source Temporal Pulse Rate 69 Respiratory Rate 16 16 16 Blood Pressure 152/85 H Blood Pressure Mean 107 Pulse Ox 98 Oxygen Delivery Method Room Air 07/19/20 13:15 07/19/20 13:40 07/19/20 14:26 Temperature Temperature Source Pulse Rate 72 Respiratory Rate 16 16 16 Blood Pressure 117/79 Blood Pressure Mean 91 Pulse Ox 97 Oxygen Delivery Method Room Air 07/19/20 15:00 07/19/20 18:09 07/19/20 19:17 Temperature Temperature Source Pulse Rate 67 Respiratory Rate 16 16 18 Blood Pressure 139/78 H Blood Pressure Mean 98 Pulse Ox 96 Oxygen Delivery Method Room Air 07/19/20 20:00 Temperature Temperature Source Pulse Rate Respiratory Rate 16 Blood Pressure Blood Pressure Mean Pulse Ox Oxygen Delivery Method Positive well nourished and well developed Constitutional Narrative: Thin male no acute distress General Appearance ED: well developed HEENT Reports normocephalic and head/scalp atraumatic Mouth ED: Yes moist mucous membranes normal Eyes PERRL and EOMs intact bilaterally Neck full ROM, No nuchal rigidity and supple Resp normal respiratory effort and clear to auscultation bilaterally Cardio regular rate, regular rhythm, S1 normal heart sound, S2 normal heart sound and peripheral pulses 2+ throughout GI normal to inspection, nondistended, normoactive bowel sounds, soft to palpation and non-tender Back/Spine normal ROM Extremity normal to inspection Extremity Narrative: Patient's right shoulder is in a sling secondary to a rotator cuff injury Neuro oriented x3, no focal motor deficits and no sensory deficits noted Psych Psych Narrative: Patient is somewhat depressed, endorses suicidal ideation without plan. No homicidal ideation or hallucinations. <Dr. Min Hewitt DO - Last Filed: 07/19/20 21:49> Physical Exam Const Vital Signs: 07/19/20 10:17 07/19/20 11:17 07/19/20 12:15 Temperature 97.7 F L Temperature Source Temporal Pulse Rate 69 Respiratory Rate 16 16 16 Blood Pressure 152/85 H Blood Pressure Mean 107 Pulse Ox 98 Oxygen Delivery Method Room Air 07/19/20 13:15 07/19/20 13:40 07/19/20 14:26 Temperature Temperature Source Pulse Rate 72 Respiratory Rate 16 16 16 Blood Pressure 117/79 Blood Pressure Mean 91 Pulse Ox 97 Oxygen Delivery Method Room Air 07/19/20 15:00 07/19/20 18:09 07/19/20 19:17 Temperature Temperature Source Pulse Rate 67 Respiratory Rate 16 16 18 Blood Pressure 139/78 H Blood Pressure Mean 98 Pulse Ox 96 Oxygen Delivery Method Room Air 07/19/20 20:00 Temperature Temperature Source Pulse Rate Respiratory Rate 16 Blood Pressure Blood Pressure Mean Pulse Ox Oxygen Delivery Method MDM <Dr. Reagan Bruno MD - Last Filed: 07/19/20 14:49> [facility] Narrative Medical decision making narrative: Patient presenting secondary to suicidal ideation. Screening labs were obtained and EKG which were found to be unremarkable. Patient is medically cleared for psychiatric disposition. He is pending placement at this time. Lab Data Labs: Laboratory Results - last 24 hr 07/19/20 07/19/20 07/19/20 10:42 10:42 10:42 WBC 8.0 RBC 5.46 Hgb 14.4 Hct 45.7 MCV 83.7 MCH 26.4 L MCHC 31.5 L RDW Std Deviation 44.7 H RDW Coeff of Tad 14.7 H Plt Count 264 MPV 9.5 Immature Gran % (Auto) 0.100 Neut % (Auto) 63.4 Lymph % (Auto) 25.7 [place] % (Auto) 7.5 Eos % (Auto) 2.7 Baso % (Auto) 0.6 Absolute Neuts (auto) 5.1 Absolute Lymphs (auto) 2.07 Nucleated RBC % 0 Sodium 140 Potassium 3.3 L Chloride 107 Carbon Dioxide 27.0 Anion Gap 6 BUN 12 Creatinine 1.08 Estim Creat Clear Calc 68.65 Est GFR (MDRD) Af Amer 86 Est GFR (MDRD) Non-Af 71 BUN/Creatinine Ratio 11.1 Glucose 87 Calcium 8.8 TSH 1.46 Urine Opiates Screen Urine Methadone Screen Ur Barbiturates Screen Ur Phencyclidine Scrn Ur Amphetamines Screen U Methamphetamin-MDMA U Benzodiazepines Scrn Urine Cocaine Screen U Cannabinoids Screen Ur Drug Screen Comment Ethyl Alcohol < 3.0 07/19/20 11:19 WBC RBC Hgb Hct MCV MCH MCHC RDW Std Deviation RDW Coeff of Tad Plt Count MPV Immature Gran % (Auto) Neut % (Auto) Lymph % (Auto) [place] % (Auto) Eos % (Auto) Baso % (Auto) Absolute Neuts (auto) Absolute Lymphs (auto) Nucleated RBC % Sodium Potassium Chloride Carbon Dioxide Anion Gap BUN Creatinine Estim Creat Clear Calc Est GFR (MDRD) Af Amer Est GFR (MDRD) Non-Af BUN/Creatinine Ratio Glucose Calcium TSH Urine Opiates Screen NEGATIVE Urine Methadone Screen NEGATIVE Ur Barbiturates Screen NEGATIVE Ur Phencyclidine Scrn NEGATIVE Ur Amphetamines Screen NEGATIVE U Methamphetamin-MDMA NEGATIVE U Benzodiazepines Scrn NEGATIVE Urine Cocaine Screen NEGATIVE U Cannabinoids Screen POSITIVE H Ur Drug Screen Comment Ethyl Alcohol EKG Initial EKG: Attestation: I personally reviewed and interpreted this EKG as follows: (Sinus rhythm of [address] segments normal T waves no evidence of acute ischemia or arrhythmia) <Dr. Min Hewitt, DO - Last Filed: 07/19/20 21:49> [facility] Lab Data Labs: Laboratory Results - last 24 hr 07/19/20 07/19/20 07/19/20 10:42 10:42 10:42 WBC 8.0 RBC 5.46 Hgb 14.4 Hct 45.7 MCV 83.7 MCH 26.4 L MCHC 31.5 L RDW Std Deviation 44.7 H RDW Coeff of Tad 14.7 H Plt Count 264 MPV 9.5 Immature Gran % (Auto) 0.100 Neut % (Auto) 63.4 Lymph % (Auto) 25.7 [place] % (Auto) 7.5 Eos % (Auto) 2.7 Baso % (Auto) 0.6 Absolute Neuts (auto) 5.1 Absolute Lymphs (auto) 2.07 Nucleated RBC % 0 Sodium 140 Potassium 3.3 L Chloride 107 Carbon Dioxide 27.0 Anion Gap 6 BUN 12 Creatinine 1.08 Estim Creat Clear Calc 68.65 Est GFR (MDRD) Af Amer 86 Est GFR (MDRD) Non-Af 71 BUN/Creatinine Ratio 11.1 Glucose 87 Calcium 8.8 TSH 1.46 Urine Opiates Screen Urine Methadone Screen Ur Barbiturates Screen Ur Phencyclidine Scrn Ur Amphetamines Screen U Methamphetamin-MDMA U Benzodiazepines Scrn Urine Cocaine Screen U Cannabinoids Screen Ur Drug Screen Comment Ethyl Alcohol < 3.0 07/19/20 11:19 WBC RBC Hgb Hct MCV MCH MCHC RDW Std Deviation RDW Coeff of Tad Plt Count MPV Immature Gran % (Auto) Neut % (Auto) Lymph % (Auto) [place] % (Auto) Eos % (Auto) Baso % (Auto) Absolute Neuts (auto) Absolute Lymphs (auto) Nucleated RBC % Sodium Potassium Chloride Carbon Dioxide Anion Gap BUN Creatinine Estim Creat Clear Calc Est GFR (MDRD) Af Amer Est GFR (MDRD) Non-Af BUN/Creatinine Ratio Glucose Calcium TSH Urine Opiates Screen NEGATIVE Urine Methadone Screen NEGATIVE Ur Barbiturates Screen NEGATIVE Ur Phencyclidine Scrn NEGATIVE Ur Amphetamines Screen NEGATIVE U Methamphetamin-MDMA NEGATIVE U Benzodiazepines Scrn NEGATIVE Urine Cocaine Screen NEGATIVE U Cannabinoids Screen POSITIVE H Ur Drug Screen Comment Ethyl Alcohol Discharge Plan Triage Chief Complaint: Suicidal ED Provider: Min Hewitt Dx/Rx/DC Orders Clinical Impression: Suicidal ideation Prescriptions: No Action metformin 500 mg/5 mL suspension,extended rel recon 500 mg PO DAILY RF: 0 albuterol sulfate 2.5 mg /3 mL (0.083 %) solution for nebulization 2.5 mg INHALATION Q8H PRN PRN (Reason: shortness of breath or wheezing) Qty: 180 RF: 6 potassium chloride 10 mEq tablet extended release 10 meq PO DAILY RF: 0 clopidogrel 75 mg tablet 75 mg PO BID Qty: 180 RF: 3 ropinirole 0.5 MG tablet 0.5 mg PO QHS RF: 0 tamsulosin 0.4 MG capsule,extended release 24hr 0.4 mg PO QHS RF: 0 lamotrigine 200 MG tablet 200 mg PO DAILY RF: 0 donepezil 10 MG tablet 10 mg PO QHS RF: 0 olanzapine 10 MG tablet 10 mg PO QHS RF: 0 omeprazole 40 MG capsule,delayed release(DR/EC) 40 mg PO DAILY RF: 0 trazodone 150 MG tablet 150 mg PO QHS PRN (Reason: Sleep) RF: 0 mirtazapine 15 MG tablet 15 mg PO QHS RF: 0 sertraline 50 MG tablet 50 mg PO DAILY RF: 0 aripiprazole 10 MG tablet 10 mg PO QHS RF: 0 acetaminophen 325 MG tablet 650 mg PO Q6H PRN PRN (Reason: Pain Score 1-10/Temp > 100.7 F) RF: 0 meloxicam 7.5 MG tablet 7.5 mg PO DAILY Qty: 7 RF: 0 losartan 25 mg tablet 12.5 mg PO DAILY Qty: 45 RF: 3 atorvastatin [Lipitor] 40 mg tablet 40 mg PO QHS Qty: 90 RF: 3 albuterol sulfate 90 mcg/actuation HFA aerosol inhaler 1 puff INHALATION Q6H PRN PRN (Reason: Sob &/Or Wheezing) Qty: 18 RF: 6 Trelegy Ellipta 100-62.5-25 mcg blister with device 1 inh INHALATION DAILY Qty: 60 RF: 5 amlodipine 5 mg tablet 5 mg PO DAILY Qty: 90 RF: 3 Primary Care Provider: Ani Andersen Referrals: Ani Andersen DO [Primary Care Provider] - Disposition Disposition: Psychiatric Hospital or Unit Discharge Location: [facility] Discharge Date/Time: 07/19/20 20:46
[2020-07-19 10:53] LABS: Absolute Lymphocyte Count 2.07 X10^3/uL (0.83-4.51); Absolute Neutrophil Count 5.1 X10^3/uL (2.0-7.7); Basophil# 0.05 X10^3/uL; Basophil% 0.6 % (0-1); Eosinophil# 0.22 X10^3/uL; Eosinophils% 2.7 % (0-5); Hematocrit 45.7 % (40-54); Hemoglobin 14.4 g/dL (13.0-16.5); Lymphocyte # 2.07 X10^3/ul (0.83-4.51); Lymphocyte % 25.7 % (19-41); Mean Corp Hgb Conc 31.5 g/dL (32-36); Mean Corpuscular Hgb 26.4 pg (27.0-32.0); Mean Corpuscular Volume 83.7 fL (80-94); Mean Platelet Vol. 9.5 fl (6.2-12.0); Monocyte% 7.5 % (0-10); NRBC Flagged by Analyzer 0 % (0-5); Neutrophil # 5.09 X10^3/uL (2.7-7.7); Neutrophil % 63.4 % (47-70); Platelet Count 264 K/mm3 (150-450); RBC Distribution Width CV 14.7 % (11.6-14.6); RBC Distribution Width SD 44.7 fl (35.1-43.9); Red Blood Count 5.46 M/mm3 (4.6-6.2)
[2020-07-19 11:18] LABS: Anion Gap 6 (5-15); BUN 12 mg/dL (7-18); BUN/Creat Ratio 11.1 RATIO (10-20); Calcium,Total 8.8 mg/dL (8.5-10.1); Chloride 107 mmol/L (98-107); Creatinine, Serum 1.08 mg/dL (0.70-1.30); EST Glomerular Filtration Rate 71 mL/min (>60); Est Glom Filt Rate - Afr Amer 86 mL/min (>60); Estimated Creatinine Clearance 68.65 ml/min; Glucose 87 mg/dL (74-106); Potassium 3.3 mmol/L (3.5-5.1); Sodium Level 140 mmol/L (136-145); Thyroid Stim Hormone (TSH) 1.46 uIU/mL (0.358-3.74)
[2020-07-19 11:27] LABS: Alcohol, Blood (Medical)-Serum < 3.0 mg/dL
[2020-07-19 11:44] LABS: Amphetamine Urine VISTA NEGATIVE (<1000 ng/mL); Barbiturate Urine VISTA NEGATIVE (< 200 ng/mL); Benzodiazepine Urine VISTA NEGATIVE (< 200 ng/mL); Cocaine Urine VISTA NEGATIVE (< 300 ng/mL); Ecstacy Urine VISTA NEGATIVE (< 500 ng/mL); Methadone Urine VISTA NEGATIVE (< 300 ng/mL); PCP Urine VISTA NEGATIVE (< 25 ng/mL); THC Urine VISTA POSITIVE (< 50 ng/mL); Vista UDS pH Range 5
--- NOTE | 2020-07-19 14:15 | CM.ED ---
SOCIAL WORK Updated by Glory with Crisis, patient pending acceptance at [facility]. Staff updated. Radha Landa, CARD LACER JACQUARD, LAMP DECORATOR
--- NOTE | 2020-07-19 18:09 | ED.RN ---
[facility] accepted pt and requested pt to get po potassium prior to transfer.
[2020-07-19] MEDS: Potassium Chloride Oral Tablet 20 MEQ PO (18:15)
== END 2020-07-19 20:46 ==
PROVIDERS: Emergency Medicine; Emergency Provider Emergency Medicine; PCP Internal Medicine
DX: R45.851 Suicidal ideations (principal); I25.10 Atherosclerotic heart disease of native coronary artery without angina pectoris; I10 Essential (primary) hypertension; Z79.899 Other long term (current) drug therapy
CPT/HCPCS: 80048; 80307; 82077; 84443; 85025; 87426; 93005; 99285

== ENCOUNTER → 2020-08-23 10:07 | Outpatient (CLI) | payer MEDICARE, MEDICAID, SELFPAY ==
[2018-10-16 10:45] VITALS: BMI 21.8
[2020-07-19 10:17] VITALS: BMI 22.2
--- NOTE | 2020-08-23 10:13 | MRI_ITS ---
STUDY: MRI RIGHT SHOULDER REASON FOR EXAM: Male, 70 years old. R SHOULDER SPRAIN TECHNIQUE: Standardized fat and water weighted pulse sequences were obtained in all 3 orthogonal planes. Mild motion artifact is present. COMPARISON: Shoulder x-ray dated JUNE 26, 2020 FINDINGS: Appearance of a small undersurface and interstitial tear of the supraspinatus tendon at the greater tuberosity site, which may be accentuated by motion artifact. Mild thickening and signal abnormality in the more proximal fibers of the anterior aspect of superior distended noted. Normal infraspinatus tendon. Normal subscapularis tendon. Normal teres minor tendon. Normal supraspinatus muscle. Normal infraspinatus muscle. Normal subscapularis muscle. Normal teres minor muscle. Normal glenohumeral articulation. There is a cortical erosion at the insertion of the supraspinatus tendon. Normal biceps labral complex. Normal intracapsular long biceps tendon. A small oblique tear is present in the superior glenoid labrum from anterior to posterior. Normal capsulo- ligamentous complex. Normal rotator interval. There is mild osteoarthritis of the acromioclavicular articulation. There is a Type II morphology (curved), with a neutral orientation. There is no subacromial-subdeltoid bursal fluid. Normal visualized coracohumeral and coracoacromial ligaments. Normal quadrilateral space. Normal axillary space. Normal deltoid muscle. Normal trapezius muscle. MRI/Upper Ext Joint Only(Routine) IMPRESSION: 1. Appearance of a small undersurface and interstitial tear of the supraspinatus tendon at the greater tuberosity site, which may be accentuated by motion artifact. Mild thickening and signal abnormality in the more proximal fibers of the anterior aspect of superior distended noted. 2. Small SLAP tear Electronically Signed: Alex Rhodes MD at 23:22 EDT , Service support ,
== END ==
PROVIDERS: PCP Internal Medicine; Referring Provider Specialist; Visit Provider Specialist
DX: S43.491A Other sprain of right shoulder joint, initial encounter (principal)
CPT/HCPCS: 73221

== ENCOUNTER → 2020-08-25 12:50 | Outpatient (CLI) | payer MEDICARE, MEDICAID, SELFPAY ==
[2018-10-16 10:45] VITALS: BMI 21.8
[2020-07-19 10:17] VITALS: BMI 22.2
--- NOTE | 2020-08-25 12:52 | CT_ITS ---
STUDY: LOW DOSE CT LUNG CANCER SCREENING REASON FOR EXAM: Male, 70 years old. Smoker and amp;gt; 40 pack years, quit 2014 RADIATION DOSAGE (If Supplied By Facility): CTDIvol = ( 2.37 ) mGy, DLP = ( 85.62 ) mGycm TECHNIQUE: No contrast was administered. Low dose technique was utilized (average mAS-38 and kVp 120). 1.25 mm axial source images with a slice interval of 1.25-mm were reconstructed in lung windows. 2.5 mm axial source images with a slice interval of 2.5-mm were reconstructed in lung windows. 5.0 mm axial source images with a slice interval of 5.0-mm were reconstructed in soft tissue windows. Nodule measured using lung windows on PACS and/or independent workstation with automated measurement of minimum and maximum diameter. Nodule measurement reported as average diameter rounded to the nearest whole number. Growth is defined as an increase ins size of greater than 1.5 mm. COMPARISON: Comparison is made with prior study dated 07/30/2019. NODULES: There is a faint 3.1 mm nodule in the posterior aspect of the right upper lobe abutting the right major fissure. This is best seen on axial image #56 and coronal image #40. This may represent a focal area of scarring. Emphysema: Hyperinflation. Emphysematous changes more prominent in the upper lobes. Endobronchial lesion: None Aorta: Atherosclerotic calcification of the aortic arch and descending thoracic aorta. Coronary arteries: Coronary artery calcification. Heart: Unremarkable. Pulmonary artery: Unremarkable Mediastinal nodes: Calcified right hilar lymph nodes. Other chest and abdominal findings: CT/Low Dose CT Lung Screening IMPRESSION: Lung-RADS category 2 - Continue annual screening with LDCT in 12 months. IMPORTANT NOTES FOR USE: ACR Lung-RADS Version 1.1 Assessment Categories Release Date: 2018 Category: Coded 0-4 bases on nodule(s) with highest degree of suspicion. Negative screen is defined as categories 1 and 2; a positive screen is defined as categories 3 and 4. Category 3 and 4A nodules that are unchanged on interval CT should be coded as category 2, and individuals returned to screening in 12 months. Category 4X: Category 3 or 4 nodules with additional imaging findings that increase the suspicion of lung cancer, such as spiculation, GGN that doubles in size in 1 year, enlarged lymph notes, etc. Category Modifiers: S (significant finding unrelated to lung cancer) Electronically Signed: Jimym Mathew MD at 13:47 EDT , Service support ,
== END ==
PROVIDERS: PCP Internal Medicine; Referring Provider Nurse Practitioner Acute Care; Visit Provider Nurse Practitioner Acute Care
DX: F17.210 Nicotine dependence, cigarettes, uncomplicated (principal)
CPT/HCPCS: 71271

== ENCOUNTER → 2020-09-14 06:59 | Outpatient (CLI) | payer MEDICARE, MEDICAID, SELFPAY ==
[2018-10-16 10:45] VITALS: BMI 21.8
[2020-09-01 08:54] VITALS: BMI 23.6
--- NOTE | 2020-09-14 19:09 | STRESSREP ---
Stress Test Report Pharmacologic myocardial perfusion stress test. 70-year-old man with a history of chest pain. Stress protocol: Resting EKG demonstrates normal sinus rhythm with a rate of 64 bpm normal intervals are noted resting blood pressure is 120/80 mmHg. 0.4 mg of regadenoson was infused per usual protocol followed by rapid venous saline flush injection continuous EKG monitoring was performed. The maximum heart rate attained was 92 bpm which was 62% of maximum predicted heart rate the maximum workload was 1 metabolic equivalent. At rest there were no ST or T wave changes noted to suggest abnormal flow reserve and at peak infusion nonspecific ST changes were noted with did not meet the criteria for ischemia. The final blood pressure 122/78 mmHg. Myocardial perfusion protocol. 11.1 mCi of technetium 99m sestamibi was injected at rest. 0.4 mg of regadenoson was infused per usual protocol. At peak infusion 33.6 mCi of technetium 99m sestamibi was injected stress images were obtained stress and rest images were reconstructed and compared in the short axis vertical long and horizontal long axis. Gated images were also obtained. Perfusion SPECT analysis: Review of the stress images demonstrate normal uptake of tracer noted in all areas of the myocardium. The resting images similarly demonstrate normal uptake of tracer noted in all areas of the myocardium. No areas of reversibility are noted to suggest ischemia no previous infarct is noted. Gated SPECT analysis: The gated ejection fraction is 69%. Conclusion: Normal pharmacologic myocardial perfusion stress test. Preserved ejection fraction
== END ==
PROVIDERS: PCP Internal Medicine; Referring Provider Nurse Practitioner Family; Visit Provider Nurse Practitioner Family
DX: R07.9 Chest pain, unspecified (principal); I25.10 Atherosclerotic heart disease of native coronary artery without angina pectoris; I10 Essential (primary) hypertension; E78.5 Hyperlipidemia, unspecified; R06.02 Shortness of breath; Z95.5 Presence of coronary angioplasty implant and graft
CPT/HCPCS: 78452; 93017; A9500; A4216; J2785

== ENCOUNTER 2020-10-10 10:00 | Outpatient (RCR) | payer MEDICARE, MEDICAID, SELFPAY ==
[2018-10-16 10:45] VITALS: BMI 21.8
[2020-07-19 10:17] VITALS: BMI 22.2
--- NOTE | 2020-08-10 09:51 | HP.PTEVAL_ITS ---
Patient's Visit Information LILLIAN GUERRERO is a 70 year old M referred to Physical Therapy by Dr. Sonny Roland MD with a diagnosis of Right Shoulder Pain. Date of Evaluation: 08/10/20 Physical Therapist: Kasia Main DPT - Visit Plan Frequency: 2x /Week Duration: 4 Weeks Plan: Focus on ROM, scapular s/s and posture. Modality of US as needed. Manual ROM. HEP Given IE: pendulums, table walk aways, supine cane flexion - Subjective Went to swat at a bee about a month- right shoulder has been bothering him since. It didn't hurt immediately just later that day. Right hand dominate. Went to the ED- had an x-rays taken but is now going to have a CT Scan or MRI- in August- unsure of the date. Pain is located along the anterior shoulder- Radiates into the neck- and down to the elbow. Describes the pain as shooting. No N/T in the fingers. 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 Does reports some dizziness since the shoulder- no blurred vision, REDDY or neck pain. Worst: 8/10 Agg: movement and sleep Eases: hemp oil and ice, Best: 0/10. Sleep: disturbed- hard to get comfortable- side sleeper- will wake him up. No injection but did give him a pain medication as needed. Sedentary- does not lift heavy objects. Is able to do all of his ADL's including driving. PMHx/Meds: see list from ED July 19, 2020. - Objective Posture: FH, RS, increased kyphosis- is unable to fully correct with verbal and tactile cues. Gait: decreased right arm swing and trunk rotation. Palpation: tender along upper trap, medial border of the scapula, infraspinatus into the bicipital groove. ROM: Cervical: limited in all directions due to cervical fusion, Shoulder: AROM: flexion- 90 degrees, Abd: 55 degrees, IR: greater troch, ER: 45 degrees. PROM: attempted but did not have any change of ROM due to guard ing and pain- empty end feel. Elbow: WFL with pain in all ranges, Finger dexterity: WNL, Body Line Finisher: WNL. Strength: Scap: poor moderate winging, Shoulder: isometric: 4-/5 with pain in all directions, Elbow: 4-/5 with pain, Wrist: 4+/5, Body Line Finisher: 20 lbs - Goals Goal 1:: Patient will be I with HEP and progression Goal Time Frame: 4-6 Weeks Goal 2:: Patient will demo full AROM of the right shoulder Goal Time Frame: 4-6 Weeks Goal 3:: Patient will maintain proper posture t/o tx session to demo increased core s/s Goal Time Frame: 4-6 Weeks Goal 4:: Patient will report no more than 2/10 pain for 1 week. Goal Time Frame: 4-6 Weeks - Rehabilitation Potential Physical Therapy Diagnosis: Patient presents with hypomobility- she has decreased ROM, strength and muscular endurance leading to poor posture and increased pain with ADL's. Rehabilitation Potential: Fair - Anticipated Interventions Patient/Client Instruction: Educate patient on: Benefits of Fitness Program Therapeutic Exercise to Include: Strength training, Endurance training, Body mechanics, Postural training, Neuromotor development, Passive ROM, Active ROM, Dynamic Lumbar Stabilization, Scapular Strength/Stabilization For the Purpose of:: To improve muscle performance and motor function TENS: Yes Cryotherapy (ice pack, ice massage): Yes Thermo therapy (hot pack): Yes Ultrasound (thermal/non thermal): Yes Thank you for the opportunity to evaluate your patient. For Medicare and Medicare HMO plans, please review the plan of care and approve it. It will need to be FAXED BACK to us at [phone] for Medicare purposes. For Medicare only, by signing this I certify the plan of care. Please let me know if there are questions or concerns regarding this plan of care. Physician Signature: Date:
--- NOTE | 2020-09-12 10:16 | HP.PTREVAL_ITS ---
Dr. Sonny Roland MD, It has been my pleasure to treat LILLIAN GUERRERO over the last 7 visits for Right Shoulder Pain. Please see the progress note below for an update on the physical therapy plan of care! Subjective: Patient reports that the shoulder is okay but its hard to sleep on the right side. He had an MRI and reports that its not torn just pulled mus cles- wants him to do more exercises. If it doesn't get better he plans to have surgery- no injections. Objective/Function: Posture: FH, RS, increased kyphosis- can correct with verbal and tactile cues but does not maintain. Gait: good arm swing and trunk rotation. P. alpation: tender along upper trap, medial border of the scapula, infraspinatus into the bicipital groove. ROM: WFL in all planes- pain end range IR behind the back and abduction. Strength: Scap: poor moderate winging, Shoulder: isometric: 4+/5 no pain, Elbow: 4+/5 Wrist: 4+/5, Plan Plan: 09/12/2020: Continue 2x a week for 4 weeks for progression towards goals. Focus on ROM, scapular s/s and posture. Modality of US as needed. Manual ROM. Goals Goal 1:: Patient will be I with HEP and progression Goal Time Frame: 4-6 Weeks Goal Progress: Progressing Goal 2:: Patient will demo full AROM of the right shoulder Goal Time Frame: 4-6 Weeks Goal Progress: Progressing Goal 3:: Patient will maintain proper posture t/o tx session to demo increased core s/s Goal Time Frame: 4-6 Weeks Goal Progress: Progressing Goal 4:: Patient will report no more than 2/10 pain for 1 week. Goal Time Frame: 4-6 Weeks Goal Progress: Progressing Anticipated Interventions Patient/Client Instruction: Educate patient on: Benefits of Fitness Program Therapeutic Exercise to Include: Strength training, Endurance training, Body mechanics, Postural training, Neuromotor development, Passive ROM, Active ROM, Dynamic Lumbar Stabilization, Scapular Strength/Stabilization For the Purpose of:: To improve muscle performance and motor function TENS: Yes Cryotherapy (ice pack, ice massage): Yes Thermo therapy (hot pack): Yes Ultrasound (thermal/non thermal): Yes Please do not hesitate to contact me at [phone] by phone or if you have questions or concerns regarding this new plan of care! Sincerely, KAREEM DoughertyT
--- NOTE | 2021-01-15 08:26 | HP.PT.NRP ---
LILLIAN GUERRERO was seen in my office for initial evaluation on 08/10/20. The following Plan of Care was established for this patient: Initial Frequency: 2x /Week Initial Duration: 4 Weeks Patient/Client Instruction: Educate patient on: Benefits of Fitness Program Therapeutic Exercise to Include: Strength training, Endurance training, Body mechanics, Postural training, Neuromotor development, Passive ROM, Active ROM, Dynamic Lumbar Stabilization, Scapular Strength/Stabilization For the Purpose of:: To improve muscle performance and motor function TENS: Yes Cryotherapy (ice pack, ice massage): Yes Thermo therapy (hot pack): Yes Ultrasound (thermal/non thermal): Yes This patient was last seen in our office . Pertinent comments regarding their Physical therapy will appear below: Patient has not attended PT in over 4 weeks and is appropriate for discharge- return to MD for further evaluation as needed. At this point I will be discontinuing this patient from physical therapy. I would be happy to see this patient again in the future if found appropriate by the physician. Thank you! Kasia Main, KAREEMT Balance/Gait/Functional tests - Balance/Special Test Scores Quick DASH Score: [phone]
== END 2020-10-10 19:00 | disposition home or self-care (01) ==
LOC: PT 10:00
PROVIDERS: PCP Internal Medicine; Referring Provider Specialist; Visit Provider Specialist
DX: S43.491D Other sprain of right shoulder joint, subsequent encounter (principal); M19.011 Primary osteoarthritis, right shoulder; M25.511 Pain in right shoulder
CPT/HCPCS: 97035; 97110; 97162; 97164

== ENCOUNTER 2020-12-15 08:07 | Emergency (ER) | payer MEDICARE, MEDICAID, SELFPAY ==
[2018-10-16 10:45] VITALS: BMI 21.8
[2020-12-15] VITALS (7 sets, daily range): BP systolic 126–173; BP diastolic 76–84; PULSE 64–80; RESP 14–24; TEMP 35.9; O2SAT 92–99; BMI 25.0
--- NOTE | 2020-12-15 09:08 | EKG12_ITS ---
Test Reason : SOB Blood Pressure : / mmHG Vent. Rate : 064 BPM Atrial Rate : 064 BPM P-R Int : 166 ms QRS Dur : 074 ms QT Int : 428 ms P-R-T Axes : 010 027 022 degrees QTc Int : 441 ms Normal sinus rhythm Normal ECG Confirmed by CLARA STEVENSON, MIGUELITO ([id number]), manager editorial GRACIELA BARBOZA ([id number]) on 12/18/2020 8:09:00 AM Referred By: TENZIN Confirmed By:MIGUELITO ELIZABETH MD
--- NOTE | 2020-12-15 09:08 | RAD_ITS ---
STUDY: X-RAY CHEST REASON FOR EXAM: Male, 70 years old. Shortness of breath. COPD. Cough. TECHNIQUE: Single AP portable view of the chest. COMPARISON: Comparison is made with prior study dated 03/13/2020. FINDINGS: EKG electrodes are seen. There is hyperinflation of the lungs consistent with chronic obstructive lung disease (COPD). There is no demonstrated pleural abnormality. Normal size heart. Normal mediastinum and bessy. Normal visualized pulmonary arteries. There is atherosclerotic calcification of the aortic arch with tortuosity. There are diffuse degenerative changes of the visualized thoracic spine. Prior fusion of the lower cervical spine. There is no demonstrated abnormality of the visualized soft tissue structures of the upper abdomen. RAD/Chest 1 View (Portable) IMPRESSION: Hyperinflation. No acute abnormality is seen. Electronically Signed: Jimmy Mathew MD at 9:50 EDT , Service support ,
--- NOTE | 2020-12-15 09:09 | EDS_ITS ---
HPI History of Present Illness Chief Complaint: Shortness of Breath Narrative Narrative: 70-year-old male presenting with history of asthma and COPD. Patient states he has been wheezing for the last 3 days. He has home albuterol nebulizers which are helping intermittently. He admits to a cough. He states he also has left rib pain which is new. He denies chest pressure. There is no radiation of the pain. Patient states he has IBS and chronic diarrhea which is unchanged. He is not had fever, chills, myalgias, loss of taste or smell. [facility] Medical History Anxiety Asthma Atherosclerotic heart disease of [place] coronary artery without angina pectoris Bipolar disorder BPH (benign prostatic hyperplasia) Cannabis dependence Chest pain Chest tightness DDD (degenerative disc disease) Dementia Depression Dyspnea on exertion Essential (primary) hypertension Fatigue History of pulmonary embolism Hyperlipidemia IBS (irritable bowel syndrome) Lung nodule < 6cm on CT MONIQUE (obstructive sleep apnea) Peptic ulcer disease Pleurisy PVCs (premature ventricular contractions) Restless leg syndrome Schizophrenia Smoking greater than 40 pack years Stage 2 moderate COPD by GOLD classification Syncope and collapse Trigger finger Wheezing Home Medications ropinirole 0.5 mg PO QHS 04/23/16 [History Last Taken 07/29/19] tamsulosin 0.4 mg PO QHS 01/30/17 [History Last Taken 07/29/19] donepezil 10 mg PO QHS 07/30/19 [History Last Taken 07/29/19] omeprazole 40 mg PO DAILY 07/30/19 [History Last Taken 07/30/19] sertraline 50 mg PO DAILY 07/30/19 [History Last Taken 07/30/19] amlodipine 5 mg tablet 5 mg PO DAILY #90 tab 03/09/20 [Rx Last Taken Unknown] clopidogrel 75 mg tablet 75 mg PO BID #180 tab 05/22/20 [Rx Last Taken Unknown] potassium chloride 10 mEq tablet,extended release 10 meq PO DAILY 05/22/20 [History Last Taken Unknown] atorvastatin 40 mg tablet See Rx Instructions .ROUTE .COMPLEX #28 tab 08/24/20 [Rx Last Taken Unknown] fluticasone fur. 100 mcg-umeclid 62.5 mcg-vilant 25 mcg inhalat.powder 1 inh INHALATION DAILY #60 ea 08/29/20 [Rx Last Taken Unknown] melatonin 3 mg tablet 3 mg PO HS 09/01/20 [History Last Taken Unknown] metformin 500 mg tablet,extended release 24 hr 500 mg PO DAILY tab 09/01/20 [History Last Taken Unknown] albuterol sulfate 2.5 mg INHALATION Q8H PRN PRN #180 ml 09/08/20 [Rx Last Taken Unknown] aripiprazole 10 mg tablet 10 mg PO DAILY 11/09/20 [History Last Taken Unknown] baclofen 10 mg tablet 10 mg PO TID 11/09/20 [History Last Taken Unknown] dicyclomine 20 mg tablet 20 mg PO BID 11/09/20 [History Last Taken Unknown] icosapent ethyl 1 gram capsule 2 g PO BID 11/09/20 [History Last Taken Unknown] mirtazapine 15 mg tablet 15 mg PO DAILY 11/09/20 [History Last Taken Unknown] trazodone 100 mg tablet 50 mg PO QHS tab 11/09/20 [History Last Taken Unknown] losartan 25 mg tablet 25 mg PO DAILY tab 12/07/20 [History Last Taken Unknown] prednisone 50 mg PO DAILY #5 tab 12/15/20 [Rx Last Taken Unknown] Allergy/AdvReac Type Severity Reaction Status Date / Time Quinolones Allergy Unknown unknown Verified 12/15/20 08:10 aspirin Allergy Itching, Verified 12/15/20 08:10 Hives levofloxacin [From Levaquin] Allergy Hives, Verified 12/15/20 08:10 Itching Penicillins Allergy Hives, Verified 12/15/20 08:10 Itching Family History Mother CAD (coronary artery disease) Sister Diabetes Surgical History H/O cervical spine surgery H/O ventral hernia repair History of appendectomy History of arthroscopy History of cholecystectomy History of coronary artery stent placement (10/16/18) History of left heart catheterization (04/2016) Social History (Updated 11/09/20 @ 10:30 by Ani Kurtz) household members: none housing: house current occupational status: disabled Smoking Status: Former smoker quit date: 02/14/15 how long ago did patient quit smokin years ago second hand exposure: Yes alcohol intake: former details: Quit 9 years ago substance use type: does not use caffeine: Yes Type: coffee what type of physical activity do you participate in: none seatbelt use: always do you feel safe at home: Yes ROS ROS ED Constitutional Constitutional ED: Denies chills or fever(s) Eyes Eyes: Denies blurry vision or change in vision ENT ENT ED: Denies ear pain, rhinorrhea or sore throat Cardiovascular Cardiovascular: Reports chest pain Respiratory/Chest Respiratory/Chest: Reports cough and dyspnea Gastrointestinal Gastrointestinal: Denies abdominal pain or nausea Genitourinary Genitourinary ED: Denies dysuria or hematuria Musculoskeletal Musculoskeletal: Denies arthralgias, myalgias or neck pain Integumentary Denies abscess or rash Neurologic Neurologic: Denies headache(s) or paresthesias EXAM Physical Exam Const Vital Signs: 12/15/20 08:08 12/15/20 08:30 12/15/20 09:38 Temperature 96.7 F L Temperature Source Temporal Pulse Rate 80 64 Respiratory Rate 24 H 24 H Respiratory Effort Short of Breath Respiratory Depth Normal Respiratory Pattern Normal Tachypnea Blood Pressure 173/76 H Blood Pressure Mean 108 Pulse Ox 96 Oxygen Delivery Method Room Air Room Air Oxygen Flow Rate (L/min) 12/15/20 10:35 12/15/20 12:01 12/15/20 12:33 Temperature Temperature Source Pulse Rate 69 70 76 Respiratory Rate 19 H 20 H 15 Respiratory Effort Respiratory Depth Respiratory Pattern Tachypnea Blood Pressure 141/84 H 126/82 H Blood Pressure Mean 103 96 Pulse Ox 99 92 Oxygen Delivery Method Room Air Nasal Cannula Oxygen Flow Rate (L/min) 6 12/15/20 13:22 Temperature Temperature Source Pulse Rate 76 Respiratory Rate 14 Respiratory Effort Respiratory Depth Respiratory Pattern Blood Pressure 136/80 H Blood Pressure Mean Pulse Ox 93 Oxygen Delivery Method Oxygen Flow Rate (L/min) Positive well nourished General Appearance ED: NAD; Negative for pallor HEENT Reports moist mucous membranes atraumatic Eyes PERRL and EOMs intact bilaterally Resp normal respiratory effort Auscultation: wheezes Cardio regular rate and regular rhythm Extremity normal to inspection Neuro oriented x3 Sensorium / Orientation: alert Skin General Skin Exam: Negative for jaundice or pallor Lesions: no lesions Rashes: no rashes MDM MDM MDM Narrative Medical decision making narrative: Patient presenting with wheezing and states he has history of COPD. He denies any viral syndromes. Because of the area of sharp pain in the left chest wall which has been present for the last couple of days I did check an EKG which shows normal sinus rhythm with a ventricular rate of 64 bpm without sign of ischemic change. Patient's blood work is unremarkable. D-dimer is negative when age-adjusted. Troponin is 10. Patient's pain does not appear to be cardiac in nature. Patient was reevaluated and still had some mild wheezing. He was given another DuoNeb and after reevaluation he states he feels good enough to go home. Patient will be discharged home with a burst of prednisone. His Covid testing was negative. He is given return precautions. Patient stable for discharge at this time. Impression: 1. COPD exacerbation Lab Data Labs: Laboratory Results - last 24 hr 12/15/20 12/15/20 12/15/20 08:30 08:30 08:30 WBC 7.5 RBC 5.07 Hgb 13.5 Hct 42.7 MCV 84.2 MCH 26.6 L MCHC 31.6 L RDW Std Deviation 41.3 RDW Coeff of Tad 13.4 Plt Count 301 MPV 9.9 Immature Gran % (Auto) 0.700 Neut % (Auto) 60.8 Lymph % (Auto) 26.1 [place] % (Auto) 7.6 Eos % (Auto) 4.1 Baso % (Auto) 0.7 Absolute Neuts (auto) 4.6 Absolute Lymphs (auto) 1.96 Nucleated RBC % 0 D-Dimer Quant (PE/DVT) 0.71 H* Sodium 143 Potassium 3.3 L Chloride 108 H Carbon Dioxide 29.0 Anion Gap 6 BUN 14 Creatinine 1.11 Estim Creat Clear Calc 66.03 Est GFR (MDRD) Af Amer 84 Est GFR (MDRD) Non-Af 69 BUN/Creatinine Ratio 12.6 Glucose 125 H Calcium 9.0 Total Bilirubin 0.40 AST 20 ALT 35 Alkaline Phosphatase 150 H Troponin I High Sens 10 Total Protein 7.2 Albumin 3.7 Globulin 3.5 Albumin/Globulin Ratio 1.1 Procalcitonin 12/15/20 08:30 WBC RBC Hgb Hct MCV MCH MCHC RDW Std Deviation RDW Coeff of Tad Plt Count MPV Immature Gran % (Auto) Neut % (Auto) Lymph % (Auto) [place] % (Auto) Eos % (Auto) Baso % (Auto) Absolute Neuts (auto) Absolute Lymphs (auto) Nucleated RBC % D-Dimer Quant (PE/DVT) Sodium Potassium Chloride Carbon Dioxide Anion Gap BUN Creatinine Estim Creat Clear Calc Est GFR (MDRD) Af Amer Est GFR (MDRD) Non-Af BUN/Creatinine Ratio Glucose Calcium Total Bilirubin AST ALT Alkaline Phosphatase Troponin I High Sens Total Protein Albumin Globulin Albumin/Globulin Ratio Procalcitonin 0.05 Radiography Diagnostic Testing: Radiology Impression Chest X-Ray 12/15/20 09:08 IMPRESSION: Hyperinflation. No acute abnormality is seen. Electronically Signed: Jimmy Mathew MD at 9:50 EDT , Service support , Discharge Plan Triage Chief Complaint: Shortness of Breath ED Provider: Baldemar Chavarria Dx/Rx/DC Orders Instructions: ED COPD Flare Prescriptions: New prednisone 50 mg tablet 50 mg PO DAILY Qty: 5 RF: 0 No Action potassium chloride 10 mEq tablet extended release 10 meq PO DAILY RF: 0 clopidogrel 75 mg tablet 75 mg PO BID Qty: 180 RF: 3 melatonin 3 mg tablet 3 mg PO HS RF: 0 metformin 500 mg tablet extended release 24 hr 500 mg PO DAILY RF: 0 trazodone 100 mg tablet 50 mg PO QHS RF: 0 dicyclomine 20 mg tablet 20 mg PO BID RF: 0 mirtazapine 15 mg tablet 15 mg PO DAILY RF: 0 aripiprazole 10 mg tablet 10 mg PO DAILY RF: 0 icosapent ethyl [Vascepa] 1 gram capsule 2 g PO BID RF: 0 baclofen 10 mg tablet 10 mg PO TID RF: 0 losartan 25 mg tablet 25 mg PO DAILY RF: 0 ropinirole 0.5 MG tablet 0.5 mg PO QHS RF: 0 tamsulosin 0.4 MG capsule,extended release 24hr 0.4 mg PO QHS RF: 0 donepezil 10 MG tablet 10 mg PO QHS RF: 0 omeprazole 40 MG capsule,delayed release(DR/EC) 40 mg PO DAILY RF: 0 sertraline 50 MG tablet 50 mg PO DAILY RF: 0 amlodipine 5 mg tablet 5 mg PO DAILY Qty: 90 RF: 3 atorvastatin 40 mg tablet See Rx Instructions .ROUTE .COMPLEX Qty: 28 RF: 11 Trelegy Ellipta 100-62.5-25 mcg blister with device 1 inh INHALATION DAILY Qty: 60 RF: 5 albuterol sulfate 2.5 mg /3 mL (0.083 %) solution for nebulization 2.5 mg INHALATION Q8H PRN PRN (Reason: shortness of breath or wheezing) Qty: 180 RF: 6 Primary Care Provider: Ani Andersen Referrals: Ani Andersen DO [Primary Care Provider] - Disposition Disposition: Home, Self Care Discharge Date/Time: 12/15/20 13:27
[2020-12-15] MEDS: MethylPREDNISolone 125 MG/2 ML Vial IV (09:15)
[2020-12-15 09:28] LABS: Absolute Lymphocyte Count 1.96 X10^3/uL (0.83-4.51); Absolute Neutrophil Count 4.6 X10^3/uL (2.0-7.7); Basophil# 0.05 X10^3/uL; Basophil% 0.7 % (0-1); Eosinophil# 0.31 X10^3/uL; Eosinophils% 4.1 % (0-5); Hematocrit 42.7 % (40-54); Hemoglobin 13.5 g/dL (13.0-16.5); Lymphocyte # 1.96 X10^3/ul (0.83-4.51); Lymphocyte % 26.1 % (19-41); Mean Corp Hgb Conc 31.6 g/dL (32-36); Mean Corpuscular Hgb 26.6 pg (27.0-32.0); Mean Corpuscular Volume 84.2 fL (80-94); Mean Platelet Vol. 9.9 fl (6.2-12.0); Monocyte# 0.57 X10^3/uL; Monocyte% 7.6 % (0-10); NRBC Flagged by Analyzer 0 % (0-5); Neutrophil # 4.57 X10^3/uL (2.7-7.7); Neutrophil % 60.8 % (47-70); Platelet Count 301 K/mm3 (150-450); RBC Distribution Width CV 13.4 % (11.6-14.6); RBC Distribution Width SD 41.3 fl (35.1-43.9); Red Blood Count 5.07 M/mm3 (4.6-6.2); White Blood Count 7.5 K/mm3 (4.4-11.0)
[2020-12-15] MEDS: Albuterol 2.5 MG/3 ML VIAL.NEB. INHALATION (09:31)
[2020-12-15] MEDS: Ipratropium/Albuterol Sulfate 3 ML AMPUL.NEB INHALATION ×2 (09:31→12:00)
[2020-12-15 09:39] LABS: ALB/GLOB Ratio 1.1 RATIO (0.9-2.4); AST(SGOT) 20 U/L (15-37); Alanine Aminotransfer ALT/SGPT 35 U/L (16-61); Albumin, Serum 3.7 g/dL (3.2-5.0); Alkaline Phosphatase 150 U/L (45-117); Anion Gap 6 (5-15); BUN 14 mg/dL (7-18); BUN/Creat Ratio 12.6 RATIO (10-20); Chloride 108 mmol/L (98-107); Creatinine, Serum 1.11 mg/dL (0.70-1.30); EST Glomerular Filtration Rate 69 mL/min (>60); Est Glom Filt Rate - Afr Amer 84 mL/min (>60); Estimated Creatinine Clearance 66.03 ml/min; Globulin 3.5 g/dL (2.2-4.2); Glucose 125 mg/dL (74-106); Potassium 3.3 mmol/L (3.5-5.1); Protein, Total 7.2 g/dL (6.4-8.2); Sodium Level 143 mmol/L (136-145); Troponin-I HS 10 pg/mL (3.0-78.0)
[2020-12-15 09:50] LABS: D-Dimer Quantitative (DVT/PE) 0.71 FEU/ug/m (0.27-0.49)
[2020-12-15 10:04] LABS: Procalcitonin 0.05 ng/mL (0.00-0.09)
== END 2020-12-15 13:27 | disposition home or self-care (01) ==
PROVIDERS: Emergency Provider Student in an Organized Health Care Education/Training Program; PCP Internal Medicine
DX: J44.1 Chronic obstructive pulmonary disease with (acute) exacerbation (principal); I25.10 Atherosclerotic heart disease of native coronary artery without angina pectoris; Z87.891 Personal history of nicotine dependence; Z86.711 Personal history of pulmonary embolism
CPT/HCPCS: 71045; 80053; 84145; 84484; 85025; 85379; 87426; 93005; 94640; 96374; 99285; A4216

== ENCOUNTER → 2021-01-18 10:26 | Outpatient (CLI) | payer MEDICARE, MEDICAID, SELFPAY ==
[2018-10-16 10:45] VITALS: BMI 21.8
--- NOTE | 2021-01-18 10:30 | RAD_ITS ---
STUDY: X-RAY - LUMBAR SPINE REASON FOR EXAM: Male, 70 years old. BACK PAIN TECHNIQUE: 2 view(s) of the lumbar spine were obtained. COMPARISON: None FINDINGS: Normal lumbar lordosis. There is no substantial scoliosis. There is a normal alignment of the vertebrae. There is multilevel endplate spondylosis of the lumbar vertebrae. There is multi-level degenerative disc disease with multi-level disc space narrowing. There is no demonstrated fracture. There is no demonstrated spondylolysis of the pars interarticulares. The soft tissue structures are unremarkable. RAD/Lumbar Spine 2 or 3 Views IMPRESSION: Degenerative changes of the spine, as detailed above. Electronically Signed: Ish Estrella MD at 16:48 EDT , Service support ,
== END ==
PROVIDERS: PCP Internal Medicine; Referring Provider Anesthesiology Pain Medicine; Visit Provider Anesthesiology Pain Medicine
DX: M54.9 Dorsalgia, unspecified (principal)
CPT/HCPCS: 72100

== ENCOUNTER → 2021-02-20 12:03 | Outpatient (CLI) | payer MEDICARE, MEDICAID, SELFPAY ==
[2018-10-16 10:45] VITALS: BMI 21.8
[2021-02-20 14:54] LABS: BNP,B-Type NATRIURETIC PEPTIDE 16.7 pg/mL (0-100)
[2021-02-20 14:58] LABS: AST(SGOT) 19 U/L (15-37); Alanine Aminotransfer ALT/SGPT 32 U/L (16-61); Albumin, Serum 3.9 g/dL (3.2-5.0); Alkaline Phosphatase 148 U/L (45-117); Bilirubin, Direct 0.08 mg/dL (0.00-0.30); Cholesterol 136 mg/dL (200); Globulin 3.6 g/dL (2.2-4.2); High Density Lipoprotein 44 mg/dL; Protein, Total 7.5 g/dL (6.4-8.2); Triglycerides 298 mg/dL; Very Low Density Lipoprotein 60 mg/dL (5-40)
== END ==
PROVIDERS: Nurse Practitioner Family; PCP Internal Medicine; Referring Provider Internal Medicine Cardiovascular Disease; Visit Provider Internal Medicine Cardiovascular Disease
DX: R06.01 Orthopnea (principal); E78.00 Pure hypercholesterolemia, unspecified
CPT/HCPCS: 36415; 80061; 80076; 83880

== ENCOUNTER 2021-02-24 00:16 | Emergency (ER) | payer MEDICARE, MEDICAID, SELFPAY ==
[2018-10-16 10:45] VITALS: BMI 21.8
[2021-02-24 00:17] VITALS: BP 151/90; PULSE 77; RESP 21; TEMP 36.6; O2SAT 94; BMI 26.3
[2021-02-24 00:22] VITALS: O2SAT 92
--- NOTE | 2021-02-24 00:45 | EKG12_ITS ---
Test Reason : DYSRHYTHMIA Blood Pressure : / mmHG Vent. Rate : 064 BPM Atrial Rate : 064 BPM P-R Int : 148 ms QRS Dur : 076 ms QT Int : 414 ms P-R-T Axes : 051 048 052 degrees QTc Int : 427 ms Normal sinus rhythm Septal infarct , age undetermined Abnormal ECG Confirmed by CLARA STEVENSON, MIUGELITO ([id number]), editorial clerk GRACIELA BARBOZA ([id number]) on 02/26/2021 10:15:24 AM Referred By: TL Confirmed By:MIGUELITO ELIZABETH MD
--- NOTE | 2021-02-24 00:47 | EDS_ITS ---
HPI History of Present Illness Chief Complaint: Shortness of Breath Informant: patient Narrative Narrative: Increasing dyspnea wheeze yellow productive sputum over the past week. Subjective fevers. Chest tightness. Denies vomiting or diarrhea. No change of taste or smell. History of coronary disease. He seen Dr. Lamb 3 days ago for follow-up. He states since then symptoms worsening with his cough and wheeze. History of COPD no home oxygen. Remote tobacco in the past. Nonvaccinated for Covid. Denies sick contacts. Patient followed by pulmonology Dr. Alan Kohler. Reports history of diabetes with well-controlled blood glucose. Reviewing records from cardiology note 3 days ago, reported concerns more pulmonary etiology. He had repeat echo planned along with a BNP to evaluate and if elevated had plans of adding a diuretic. He had echocardiogram last in 2019 EF of 60% with diastolic dysfunction stage I. His last coronary stents were in 2019. Prior similar symptoms: Yes PFSH PFS Medical History Anxiety Asthma Atherosclerotic heart disease of [place] coronary artery without angina pectoris Bipolar disorder BPH (benign prostatic hyperplasia) Cannabis dependence Cervical radiculitis Cervical spondylosis Chest pain Chest tightness DDD (degenerative disc disease) Dementia Depression Dyspnea on exertion Essential (primary) hypertension Fatigue History of pulmonary embolism Hyperlipidemia IBS (irritable bowel syndrome) Lung nodule < 6cm on CT MONIQUE (obstructive sleep apnea) Partial tear of right rotator cuff Peptic ulcer disease Pleurisy PVCs (premature ventricular contractions) Restless leg syndrome Schizophrenia Smoking greater than 40 pack years Stage 2 moderate COPD by GOLD classification Syncope and collapse Trigger finger Wheezing Home Medications ropinirole 0.5 mg PO QHS 04/23/16 [History Last Taken 07/29/19] tamsulosin 0.4 mg PO QHS 01/30/17 [History Last Taken 07/29/19] donepezil 10 mg PO QHS 07/30/19 [History Last Taken 07/29/19] omeprazole 40 mg PO DAILY 07/30/19 [History Last Taken 07/30/19] sertraline 50 mg PO DAILY 07/30/19 [History Last Taken 07/30/19] atorvastatin 40 mg tablet See Rx Instructions .ROUTE .COMPLEX #28 tab 08/24/20 [Rx Last Taken Unknown] melatonin 3 mg tablet 3 mg PO HS 09/01/20 [History Last Taken Unknown] metformin 500 mg tablet,extended release 24 hr 500 mg PO DAILY tab 09/01/20 [History Last Taken Unknown] albuterol sulfate 2.5 mg INHALATION Q8H PRN PRN #180 ml 09/08/20 [Rx Last Taken Unknown] aripiprazole 10 mg tablet 10 mg PO DAILY 11/09/20 [History Last Taken Unknown] baclofen 10 mg tablet 10 mg PO TID 11/09/20 [History Last Taken Unknown] dicyclomine 20 mg tablet 20 mg PO BID 11/09/20 [History Last Taken Unknown] icosapent ethyl 1 gram capsule 2 g PO BID 11/09/20 [History Last Taken Unknown] mirtazapine 15 mg tablet 15 mg PO DAILY 11/09/20 [History Last Taken Unknown] trazodone 100 mg tablet 50 mg PO QHS tab 11/09/20 [History Last Taken Unknown] clopidogrel 75 mg tablet 75 mg PO DAILY #90 tab 02/12/21 [Rx Last Taken Unknown] fluticasone fur. 100 mcg-umeclid 62.5 mcg-vilant 25 mcg inhalat.powder 1 inh INHALATION DAILY #60 ea 02/13/21 [Rx Last Taken Unknown] doxycycline hyclate 100 mg tablet 100 mg PO BID #20 tab 02/16/21 [Rx Last Taken Unknown] prednisone 10 mg tablet 10 mg PO QDAY #30 tab 02/16/21 [Rx Last Taken Unknown] losartan 50 mg tablet 50 mg PO DAILY #90 tab 02/20/21 [Rx Last Taken Unknown] azithromycin 250 mg PO DAILY #4 tab 02/24/21 [Rx Last Taken Unknown] prednisone 60 mg PO DAILY #12 tab 02/24/21 [Rx Last Taken Unknown] Allergy/AdvReac Type Severity Reaction Status Date / Time Quinolones Allergy Unknown unknown Verified 02/24/21 00:20 aspirin Allergy Itching, Verified 02/24/21 00:20 Hives levofloxacin [From Levaquin] Allergy Hives, Verified 02/24/21 00:20 Itching Penicillins Allergy Hives, Verified 02/24/21 00:20 Itching Family History Mother CAD (coronary artery disease) Sister Diabetes Surgical History H/O cervical spine surgery H/O ventral hernia repair History of appendectomy History of arthroscopy History of cholecystectomy History of coronary artery stent placement (10/16/18) History of left heart catheterization (04/2016) Social History household members: none housing: house current occupational status: disabled Smoking Status: Former smoker quit date: 02/14/15 how long ago did patient quit smokin years ago second hand exposure: Yes alcohol intake: former details: Quit 9 years ago substance use type: does not use caffeine: Yes Type: coffee what type of physical activity do you participate in: none seatbelt use: always do you feel safe at home: Yes ROS ROS ED Constitutional Constitutional ED: Reports fever(s); Denies chills or sweats Eyes Eyes: Denies change in vision ENT ENT ED: Denies dysphagia or sore throat Cardiovascular Cardiovascular: Denies chest pain, leg edema, palpitations or racing heartbeat Respiratory/Chest Respiratory/Chest: Reports cough, dyspnea and dyspnea on exertion Gastrointestinal Gastrointestinal: Denies abdominal pain, diarrhea, nausea or vomiting Genitourinary Genitourinary ED: Denies dysuria, hematuria or urinary frequency Musculoskeletal Musculoskeletal: Denies back pain, extremity pain or neck pain Integumentary Denies rash or wounds Neurologic Neurologic: Denies headache(s), paresthesias or weakness EXAM Physical Exam Const Vital Signs: 02/24/21 00:17 02/24/21 00:22 02/24/21 01:09 Temperature 98 F Temperature Source Temporal Pulse Rate 77 78 Respiratory Rate 21 H 26 H Respiratory Effort Short of Breath Accessory Muscle Use Respiratory Pattern Tachypnea Tachypnea Blood Pressure 151/90 H Blood Pressure Mean 110 Pulse Ox 94 Oxygen Delivery Method Room Air Room Air 02/24/21 02:28 02/24/21 02:48 Temperature Temperature Source Pulse Rate 68 66 Respiratory Rate 18 Respiratory Effort Respiratory Pattern Blood Pressure 109/75 123/71 H Blood Pressure Mean 86 Pulse Ox 96 93 Oxygen Delivery Method Room Air Positive well nourished and well developed General Appearance ED: well developed and NAD HEENT Reports moist mucous membranes normocephalic and atraumatic Eyes PERRL, EOMs intact bilaterally and conjunctivae normal General Eye ED: Yes normal appearance of both eyes Neck no lymphadenopathy and supple General: Negative for tenderness Chest Wall Chest: Negative for tenderness Resp normal air movement Resp Narrative: Lower expiratory wheezing, no rales. No respiratory distress. Effort and Inspection: symmetric chest movement; Negative for respiratory distress Cardio regular rate, regular rhythm and no murmurs Peripheral Pulses: pulses 2+ throughout GI normal to inspection, nondistended, normoactive bowel sounds and non-tender Palpation: Negative for guarding or rebound tenderness present Back/Spine no CVA tenderness and no thoracic nor lumbar tenderness Extremity normal to inspection General Extremety ED: Negative for edema or tenderness General Extremity: Negative for edema Neuro oriented x3 and no sensory deficits noted Sensorium / Orientation: awake and alert Skin no rashes or lesions noted and no wounds MDM MDM MDM Narrative Medical decision making narrative: Patient wheezing on exam pulse ox 94% on arrival. Given aerosol treatments Solu-Medrol. EKG sinus rhythm no acute findings. Labs were down, printout reviewed of labs. White cell count normal hemoglobin normal. Troponin negative. BNP was 6. Covid testing negative. 1 view chest x-ray reviewed by myself questionable small right lower lobe infiltrate. On reevaluation patient clinically improved. Wheezing improved. Pulse ox is stable. With COPD history he is started on antibiotics due to productive sputum. Zithromax started. Discussed with patient, is covered for pneumonia with antibiotics. He is on 10 mg prednisone at home. Discussed will be treated with burst steroids for 4 additional days he will hold that and continue afterwards. He will follow-up with his PCP. Strict return precautions discussed. All questions were answered. Patient is being discharged under pandemic conditions under declared global, national and state disaster activation, with limited medical resources. Patient and community understands this. Results discussed in layman's terms to the patient satisfaction. All questions answered in layman's terms. Patient understands importance of follow-up care as directed. Patient has been instructed to return to the ED immediately if new symptoms, problems, or questions occur. We mutually agree with the plan of disposition. The patient understand that they may call or return with any questions or concerns at any time. Lab Data Attestation: I reviewed the patient's lab results. Labs: Laboratory Results - last 24 hr 02/24/21 02/24/21 02/24/21 00:26 00:26 00:26 WBC 8.5 RBC 4.76 Hgb 12.7 L Hct 39.2 L MCV 82.4 MCH 26.7 L MCHC 32.4 RDW Std Deviation 45.5 H RDW Coeff of Tad 15.2 H Plt Count 275 MPV 9.8 Nucleated RBC % 0 Sodium Cancelled Potassium Cancelled Chloride Cancelled Carbon Dioxide Cancelled Anion Gap Cancelled BUN Cancelled Creatinine Cancelled Estim Creat Clear Calc Est GFR (MDRD) Af Amer Cancelled Est GFR (MDRD) Non-Af Cancelled BUN/Creatinine Ratio Cancelled Glucose Cancelled Calcium Cancelled Troponin I High Sens 10 B-Natriuretic Peptide 6.0 02/24/21 00:26 WBC RBC Hgb Hct MCV MCH MCHC RDW Std Deviation RDW Coeff of Tad Plt Count MPV Nucleated RBC % Sodium 144 Potassium 3.1 L Chloride 109 H Carbon Dioxide 28.0 Anion Gap 7 BUN 15 Creatinine 1.08 Estim Creat Clear Calc 67.86 Est GFR (MDRD) Af Amer 86 Est GFR (MDRD) Non-Af 71 BUN/Creatinine Ratio 13.9 Glucose 110 H Calcium 8.9 Troponin I High Sens B-Natriuretic Peptide Radiography Chest X-Ray - ED: 1 View and Read by ED Physician EKG Initial EKG: Attestation: I personally reviewed and interpreted this EKG as follows: Comments: Sinus rate of 64, no ST or T wave changes. Discharge Plan Triage Chief Complaint: Shortness of Breath ED Provider: Dangelo Quezada Dx/Rx/DC Orders Clinical Impression: COPD with acute exacerbation, Cough Instructions: ED COPD Flare Prescriptions: New azithromycin [azithromycin] 250 MG tablet 250 mg PO DAILY Qty: 4 RF: 0 prednisone 20 MG tablet 60 mg PO DAILY Qty: 12 RF: 0 No Action melatonin 3 mg tablet 3 mg PO HS RF: 0 metformin 500 mg tablet extended release 24 hr 500 mg PO DAILY RF: 0 losartan 50 mg tablet 50 mg PO DAILY Qty: 90 RF: 3 trazodone 100 mg tablet 50 mg PO QHS RF: 0 dicyclomine 20 mg tablet 20 mg PO BID RF: 0 mirtazapine 15 mg tablet 15 mg PO DAILY RF: 0 aripiprazole 10 mg tablet 10 mg PO DAILY RF: 0 icosapent ethyl [Vascepa] 1 gram capsule 2 g PO BID RF: 0 baclofen 10 mg tablet 10 mg PO TID RF: 0 doxycycline hyclate 100 mg tablet 100 mg PO BID Qty: 20 RF: 0 prednisone 10 mg tablet 10 mg PO QDAY Qty: 30 RF: 0 ropinirole 0.5 MG tablet 0.5 mg PO QHS RF: 0 tamsulosin 0.4 MG capsule,extended release 24hr 0.4 mg PO QHS RF: 0 donepezil 10 MG tablet 10 mg PO QHS RF: 0 omeprazole 40 MG capsule,delayed release(DR/EC) 40 mg PO DAILY RF: 0 sertraline 50 MG tablet 50 mg PO DAILY RF: 0 atorvastatin 40 mg tablet See Rx Instructions .ROUTE .COMPLEX Qty: 28 RF: 11 albuterol sulfate 2.5 mg /3 mL (0.083 %) solution for nebulization 2.5 mg INHALATION Q8H PRN PRN (Reason: shortness of breath or wheezing) Qty: 180 RF: 6 clopidogrel 75 mg tablet 75 mg PO DAILY Qty: 90 RF: 3 Trelegy Ellipta 100-62.5-25 mcg blister with device 1 inh INHALATION DAILY Qty: 60 RF: 5 Primary Care Provider: Ani Andersen Referrals: Ani Andersen DO [Primary Care Provider] - 3-5 Days if not improving Disposition Disposition: Home, Self Care Discharge Date/Time: 02/24/21 02:55
[2021-02-24 01:09] VITALS: PULSE 78; RESP 26
--- NOTE | 2021-02-24 01:15 | RAD_ITS ---
STUDY: X-RAY CHEST REASON FOR EXAM: Male, 70 years old. cough TECHNIQUE: Single AP portable view of the chest. COMPARISON: None. FINDINGS: The lungs are clear and expanded. There is no demonstrated pleural abnormality. Normal size heart. Normal mediastinum and bessy. Normal visualized pulmonary arteries. Normal visualized aortic arch and descending thoracic aorta. Normal visualized thoracic spine. There is degenerative osteoarthritis of the bilateral shoulders. There is no demonstrated abnormality of the visualized soft tissue structures of the upper abdomen. RAD/Chest 1 View (Portable) IMPRESSION: Degenerative changes, as described above. No demonstrated acute cardiopulmonary process. Electronically Signed: Shena Capellan MD at 2:45 EST Tel , Service support ,
[2021-02-24] MEDS: MethylPREDNISolone 125 MG/2 ML Vial 60 MG IV (02:26)
[2021-02-24] MEDS: Ipratropium/Albuterol Sulfate 3 ML AMPUL.NEB INHALATION (02:26)
[2021-02-24 02:28] VITALS: BP 109/75; PULSE 68; O2SAT 96
[2021-02-24 02:48] VITALS: BP 123/71; PULSE 66; RESP 18; O2SAT 93
[2021-02-24] MEDS: Azithromycin 250 MG Tablet 500 MG PO (02:51)
[2021-02-24 04:12] LABS: Troponin-I HS 10 pg/mL (3.0-78.0)
[2021-02-24 04:13] LABS: Anion Gap 7 (5-15); BUN 15 mg/dL (7-18); BUN/Creat Ratio 13.9 RATIO (10-20); Calcium,Total 8.9 mg/dL (8.5-10.1); Chloride 109 mmol/L (98-107); Creatinine, Serum 1.08 mg/dL (0.70-1.30); EST Glomerular Filtration Rate 71 mL/min (>60); Est Glom Filt Rate - Afr Amer 86 mL/min (>60); Estimated Creatinine Clearance 67.86 ml/min; Glucose 110 mg/dL (74-106); Potassium 3.1 mmol/L (3.5-5.1); Sodium Level 144 mmol/L (136-145)
[2021-02-24 07:27] LABS: Hematocrit 39.2 % (40-54); Hemoglobin 12.7 g/dL (13.0-16.5); Mean Corp Hgb Conc 32.4 g/dL (32-36); Mean Corpuscular Hgb 26.7 pg (27.0-32.0); Mean Corpuscular Volume 82.4 fL (80-94); Mean Platelet Vol. 9.8 fl (6.2-12.0); Platelet Count 275 K/mm3 (150-450); RBC Distribution Width CV 15.2 % (11.6-14.6); RBC Distribution Width SD 45.5 fl (35.1-43.9); Red Blood Count 4.76 M/mm3 (4.6-6.2); White Blood Count 8.5 K/mm3 (4.4-11.0)
== END 2021-02-24 02:55 | disposition home or self-care (01) ==
PROVIDERS: Emergency Provider Emergency Medicine; PCP Internal Medicine
DX: J44.1 Chronic obstructive pulmonary disease with (acute) exacerbation (principal); R05.9 Cough, unspecified; I25.10 Atherosclerotic heart disease of native coronary artery without angina pectoris; G47.33 Obstructive sleep apnea (adult) (pediatric); Z95.5 Presence of coronary angioplasty implant and graft; Z87.891 Personal history of nicotine dependence; Z86.711 Personal history of pulmonary embolism
CPT/HCPCS: 71045; 80048; 83880; 84484; 85027; 87426; 93005; 94640; 96374; 99285; A4216

== ENCOUNTER → 2021-03-08 09:33 | Outpatient (CLI) | payer MEDICARE, MEDICAID, SELFPAY ==
[2018-10-16 10:45] VITALS: BMI 21.8
--- NOTE | 2021-03-08 09:35 | ECHOD_ITS ---
Reason For Study: DYSPNEA/SOB Procedure This was a 2D Doppler, Color Flow transthoracic echocardiogram. Exam performed in department. Left Ventricle Normal LV size. Left ventricular systolic function is normal. The estimated ejection fraction is 60 %. Stage 1 diastolic dysfunction. No regional wall motion abnormalities noted. Right Ventricle Normal RV size. Normal systolic function. Atria Normal left atrium. Normal right atrium. Mitral Valve Normal mitral valve. Tricuspid Valve Normal tricuspid valve. Aortic Valve Trisinus/trileaflet aortic valve. Pulmonic Valve Normal pulmonic valve. Great Vessels Normal aortic root. The pulmonary artery is normal size. Normal inferior vena cava. Pericardium/Pleural No pericardial effusion. MMode/2D Measurements & Calculations LVIDd: 4.6 cm IVSd: 1.1 cm Ao root diam: 3.7 cm LVIDs: 2.6 cm LVPWd: 0.96 cm RVDd: 3.5 cm FS: 44.2 % LAV(MOD-bp): 51.2 ml LA A4 area: 18.4 cm2 LA dimension(2D): 3.7 cm LAV(MOD-bp) Indexed: 24.2 ml/m2 LAV(MOD-sp2): 53.7 ml LAV(MOD-sp4): 49.0 ml RA A4 area: 18.9 cm2 Time Measurements MV dec time: 0.25 sec Doppler Measurements & Calculations MV E max dell: 70.0 cm/sec Lat Peak E' Dell: 10.8 cm/sec Med Peak E' Dell: 8.2 cm/sec MV A max dell: 95.9 cm/sec E/E' lat: 6.5 E/E' med: 8.6 MV E/A: 0.73 Ao V2 max: 149.3 cm/sec LV V1 max: 93.2 cm/sec PA V2 max: 100.5 cm/sec Ao max P.9 mmHg LV V1 max P.5 mmHg ECHO/Echo Complete Interpretation Summary Normal LV size. Left ventricular systolic function is normal. The estimated ejection fraction is 60 %. Stage 1 diastolic dysfunction. Structurally normal valves. Ordering Physician: Bill Lamb Referring Physician: Ani Andersen Performed By: Caren Romero, GIGICS, RVT
== END ==
PROVIDERS: PCP Internal Medicine; Referring Provider Internal Medicine Cardiovascular Disease; Visit Provider Internal Medicine Cardiovascular Disease
DX: G47.33 Obstructive sleep apnea (adult) (pediatric) (principal); R06.00 Dyspnea, unspecified; R06.02 Shortness of breath
CPT/HCPCS: 93306

== ENCOUNTER 2021-05-18 08:57 | Outpatient (CLI) | payer MEDICARE, SELFPAY ==
[2018-10-16 10:45] VITALS: BMI 21.8
--- NOTE | 2021-05-18 09:20 | RAD_ITS ---
STUDY: X-RAY CHEST REASON FOR EXAM: Male, 71 years old. CHEST PAIN SOB TECHNIQUE: XR Chest 2 Views COMPARISON: 02.24.21 FINDINGS: There is no demonstrated pleural abnormality. Cervical spine fusion hardware noted. Normal size heart. Normal mediastinum and bessy. Normal visualized pulmonary arteries. There is atherosclerotic calcification of the aortic arch with tortuosity. There are diffuse degenerative changes of the visualized thoracic spine. There is degenerative osteoarthritis of the bilateral shoulders. There is no demonstrated abnormality of the visualized soft tissue structures of the upper abdomen. RAD/Chest PA and Lateral IMPRESSION: There are no acute findings. Electronically Signed: Petar Saenz MD at 17:51 EST ,
[2021-05-18 09:33] LABS: Hematocrit 40.6 % (40-54); Hemoglobin 12.8 g/dL (13.0-16.5); Mean Corp Hgb Conc 31.5 g/dL (32-36); Mean Corpuscular Hgb 26.4 pg (27.0-32.0); Mean Corpuscular Volume 83.7 fL (80-94); Platelet Count 292 K/mm3 (150-450); Red Blood Count 4.85 M/mm3 (4.6-6.2); White Blood Count 6.8 K/mm3 (4.4-11.0)
[2021-05-18 09:40] LABS: Partial Thromboplast Time 32.4 Seconds (24.1-36.2); Prothrombin Time (Protime)PT. 12.5 SECONDS (11.7-14.9)
[2021-05-18 10:01] LABS: BNP,B-Type NATRIURETIC PEPTIDE 18.3 pg/mL (0-100)
[2021-05-18 10:12] LABS: Anion Gap 4 (5-15); BUN 11 mg/dL (7-18); BUN/Creat Ratio 10.5 RATIO (10-20); Calcium,Total 9.2 mg/dL (8.5-10.1); Chloride 109 mmol/L (98-107); Creatinine, Serum 1.05 mg/dL (0.70-1.30); EST Glomerular Filtration Rate 74 mL/min (>60); Est Glom Filt Rate - Afr Amer 89 mL/min (>60); Glucose 106 mg/dL (74-106); Magnesium 2.1 mg/dL (1.6-2.6); Potassium 3.7 mmol/L (3.5-5.1); Sodium Level 141 mmol/L (136-145); Thyroid Stim Hormone (TSH) 1.49 uIU/mL (0.358-3.74)
[2021-05-18 13:57] LABS: T4 Total, Thyroxin 10.6 ug/dL (4.5-12.1)
== END 2021-05-18 23:59 | disposition home or self-care (01) ==
LOC: LAB 08:59
PROVIDERS: PCP Internal Medicine; Referring Provider Nurse Practitioner Family; Visit Provider Nurse Practitioner Family
DX: R00.2 Palpitations (principal); I50.9 Heart failure, unspecified; R06.02 Shortness of breath; R60.9 Edema, unspecified; R53.83 Other fatigue
CPT/HCPCS: 36415; 71046; 80048; 83735; 83880; 84436; 84439; 84443; 85027; 85610; 85730

== ENCOUNTER 2021-06-14 07:59 | Outpatient (CLI) | payer MEDICARE, MEDICAID, SELFPAY ==
[2018-10-16 10:45] VITALS: BMI 21.8
--- NOTE | 2021-06-14 13:17 | PFTCOMP_ITS ---
COMPLETE PULMONARY FUNCTION TEST INTERPRETATION Brief HPI: Patient is a 71 year old male, currently under the care of myself, who presents to [facility] for complete pulmonary function tests secondary to diagnosis of COPD. Respiratory therapist reports good effort and reproducible results. Interpretation: Forced expiration spirometry shows a severe large airways obstructive ventilatory defect with an FEV1 of 47% predicted. There is a significant bronchodilator response in FVC and FEV1 by strict ATS criteria. Spirograms are of good quality and plateau slowly, indicating slowly emptying areas of the lungs. The respiratory flow volume loop shows decreased expiratory flow rates at all lung volumes consistent with airway obstruction. Lung volumes by body plethysmography show a normal total lung capacity at 6.8 L, 98% predicted. FRC and RV are elevated out of proportion. Lung volume measurements are consistent with air-trapping. Diffusion capacity by carbon monoxide is normal at 73% predicted. The airway resistance is slightly elevated. Compared to previous pulmonary function tests from 03/21/2020, there is been a significant worsening in spirometry with subsequent air trapping. Impression: Partially reversible severe large airways obstructive ventilatory defect resulting in air trapping and relatively preserved diffusing capacity.
== END 2021-06-14 23:59 | disposition home or self-care (01) ==
LOC: PSN 07:59
PROVIDERS: PCP Internal Medicine; Referring Provider Nurse Practitioner Acute Care; Visit Provider Nurse Practitioner Acute Care
DX: J44.9 Chronic obstructive pulmonary disease, unspecified (principal)
CPT/HCPCS: 94060; 94726; 94729

== ENCOUNTER 2021-06-19 18:51 | Emergency (ER) | payer MEDICARE, MEDICAID, SELFPAY ==
[2018-10-16 10:45] VITALS: BMI 21.8
[2021-06-19 18:53] VITALS: BP 118/68; PULSE 98; RESP 14; TEMP 36.5; O2SAT 93; BMI 24.9
[2021-06-19 18:54] VITALS: O2SAT 93
--- NOTE | 2021-06-19 19:28 | EX.ED.VIS.UR ---
HPI HPI - URI History of Present Illness Chief Complaint: Shortness of Breath Informant: patient Onset/Context/Timing Onset: Days Context: Gradual Onset Timing: Continuous Current Severity: Mild Maximum Severity: Mild Associated Symptoms Associated Symptoms: Positive for Shortness of Breath Narrative Narrative: 71-year-old male history of COPD, [place] x2 and diabetes. His blood sugar today at home was 91. States has had a cough with yellowish sputum since Friday. It has gotten worse. Subjectively feels like he has a fever. Denies feeling short of breath. He was not vaccinated against COVID. He does not want to be tested for Covid. Prior similar symptoms: Yes Recent Illness/Hospitalization: No ROS ROS ED ROS Narrative Cough with yellow sputum, shortness of breath, wheezing and subjective fever. Review of Systems ROS Unobtainable: Denies due to encephalopathy Constitutional Constitutional ED: Reports fever(s) and subjective Eyes Eyes: Denies change in vision ENT ENT ED: Denies ear pain Cardiovascular Cardiovascular: Denies chest pain or palpitations Respiratory/Chest Respiratory/Chest: Reports cough, dyspnea and sputum Gastrointestinal Gastrointestinal: Reports diarrhea; Denies abdominal pain, constipation, nausea or vomiting Genitourinary Genitourinary ED: Denies dysuria Musculoskeletal Musculoskeletal: Denies myalgias Integumentary Denies rash Neurologic Neurologic: Denies headache(s) Psychiatric Psychiatric: Denies depression Endocrine Endocrinology: Denies polyuria [facility] Medical History Anxiety Asthma Atherosclerotic heart disease of [place] coronary artery without angina pectoris Bipolar disorder BPH (benign prostatic hyperplasia) Cannabis dependence Cervical radiculitis Cervical spondylosis Chest pain Chest tightness DDD (degenerative disc disease) Dementia Depression Dyspnea on exertion Essential (primary) hypertension Fatigue History of pulmonary embolism Hyperlipidemia IBS (irritable bowel syndrome) Lung nodule < 6cm on CT MONIQUE (obstructive sleep apnea) Partial tear of right rotator cuff Peptic ulcer disease Pleurisy PVCs (premature ventricular contractions) Restless leg syndrome Schizophrenia Smoking greater than 40 pack years Stage 2 moderate COPD by GOLD classification Syncope and collapse Trigger finger Wheezing Home Medications ropinirole 0.5 mg PO QHS 04/23/16 [History Last Taken 07/29/19] tamsulosin 0.4 mg PO QHS 01/30/17 [History Last Taken 07/29/19] donepezil 10 mg PO QHS 07/30/19 [History Last Taken 07/29/19] omeprazole 40 mg PO DAILY 07/30/19 [History Last Taken 07/30/19] atorvastatin 40 mg tablet See Rx Instructions .ROUTE .COMPLEX #28 tab 08/24/20 [Rx Last Taken Unknown] melatonin 3 mg tablet 3 mg PO HS 09/01/20 [History Last Taken Unknown] metformin 500 mg tablet,extended release 24 hr 500 mg PO DAILY tab 09/01/20 [History Last Taken Unknown] albuterol sulfate 2.5 mg INHALATION Q8H PRN PRN #180 ml 09/08/20 [Rx Last Taken Unknown] aripiprazole 10 mg tablet 10 mg PO DAILY 11/09/20 [History Last Taken Unknown] baclofen 10 mg tablet 10 mg PO TID 11/09/20 [History Last Taken Unknown] dicyclomine 20 mg tablet 20 mg PO BID 11/09/20 [History Last Taken Unknown] icosapent ethyl 1 gram capsule 2 g PO BID 11/09/20 [History Last Taken Unknown] mirtazapine 15 mg tablet 15 mg PO DAILY 11/09/20 [History Last Taken Unknown] trazodone 100 mg tablet 50 mg PO QHS tab 11/09/20 [History Last Taken Unknown] clopidogrel 75 mg tablet 75 mg PO DAILY #90 tab 02/12/21 [Rx Last Taken Unknown] fluticasone fur. 100 mcg-umeclid 62.5 mcg-vilant 25 mcg inhalat.powder 1 inh INHALATION DAILY #60 ea 02/13/21 [Rx Last Taken Unknown] losartan 100 mg tablet 100 mg PO DAILY #30 tab 05/18/21 [Rx Last Taken Unknown] potassium chloride 10 mEq tablet,extended release(part/cryst) 10 meq PO DAILY tab 05/18/21 [History Last Taken Unknown] sertraline 100 mg tablet 100 mg PO DAILY tab 05/18/21 [History Last Taken Unknown] azithromycin [Zithromax Z-Jose] 250 mg PO DAILY 4 Days #4 tab 06/19/21 [Rx Last Taken Unknown] prednisone 40 mg PO DAILY 7 Days #14 tab 06/19/21 [Rx Last Taken Unknown] Allergy/AdvReac Type Severity Reaction Status Date / Time Quinolones Allergy Unknown unknown Verified 06/19/21 18:53 aspirin Allergy Itching, Verified 06/19/21 18:53 Hives levofloxacin [From Levaquin] Allergy Hives, Verified 06/19/21 18:53 Itching Penicillins Allergy Hives, Verified 06/19/21 18:53 Itching Family History Mother CAD (coronary artery disease) Sister Diabetes Surgical History H/O cervical spine surgery H/O ventral hernia repair History of appendectomy History of arthroscopy History of cholecystectomy History of coronary artery stent placement (10/16/18) History of left heart catheterization (04/2016) Social History household members: none housing: house current occupational status: disabled Smoking Status: Former smoker quit date: 02/14/15 how long ago did patient quit smokin years ago second hand exposure: Yes alcohol intake: former details: Quit 9 years ago substance use type: does not use caffeine: Yes Type: coffee what type of physical activity do you participate in: none seatbelt use: always do you feel safe at home: Yes EXAM Physical Exam Narrative Exam Narrative: 68-year-old male no acute distress. Vital signs stable afebrile does not look septic toxic. No distress. Pulse ox 93% on room air no signs hypoxia. HEENT exam unremarkable. Moist use membranes. Neck nontender no JVD no lymphadenopathy. Lungs dry cough. Equal symmetrical. Expiratory wheezes. No rales or rhonchi. Heart regular rate and rhythm rate about 90 no murmur. Abdomen soft nontender. Moving all 4 extremities. Calves nontender without edema or cords. Neurologically is awake alert with no focal motor deficits. Const Vital Signs: 06/19/21 18:53 06/19/21 18:54 06/19/21 19:32 Temperature 97.7 F L Temperature Source Temporal Pulse Rate 98 87 Respiratory Rate 14 20 H Respiratory Effort Non-Labored Short of Breath Non-Labored Short of Breath Respiratory Depth Normal Shallow Respiratory Pattern Normal Blood Pressure 118/68 Blood Pressure Mean 84 Pulse Ox 93 93 Oxygen Delivery Method Room Air Room Air Room Air Positive well nourished and well developed; Negative for obese, cachectic or contractures General Appearance ED: well developed and NAD; Negative for cachectic, contractures, cyanotic, diaphoretic or pallor Nutritional Appearance: Negative for cachectic or obese HEENT Reports moist mucous membranes normocephalic and atraumatic Eyes PERRL and EOMs intact bilaterally General Eye ED: Negative for pale conjunctiva or scleral icterus Neck no lymphadenopathy, supple, no meningeal signs and no JVD General: Negative for anterior neck swelling Resp normal respiratory effort and clear to auscultation bilaterally Effort and Inspection: Negative for retractions or pain with movement Auscultation: Negative for rales, rhonchi, wheezes or diminished lung sounds Cardio S1 normal heart sound, S2 normal heart sound and no murmurs Rate: regular rate; Negative for bradycardia or tachycardic Rhythm: regular rhythm GI non-tender, non-distended and no masses Inspection: Negative for abdominal distention Auscultation: normoactive bowel sounds; Negative for hyperactive bowel sounds Palpation: soft; Negative for tender Back/Spine no CVA tenderness and normal ROM General Back: Negative for CVA tenderness Cervical Spine: Negative for cervical spine tenderness Extremity normal to inspection and full ROM General Extremety ED: Negative for cyanosis or tenderness General Extremity: Negative for cyanosis Neuro oriented x3 Sensorium / Orientation: alert, oriented to person, oriented to place and oriented to time; Negative for orientation impaired, lethargic or stuporous Motor Exam: strength 5/5 throughout Psych mental status grossly normal Attitude: No agitated Mood & Affect: Negative for depressed or tearful Skin General Skin Exam: Negative for jaundice or pallor Lesions: no lesions Rashes: no rashes MDM MDM MDM Narrative Medical decision making narrative: 71-year-old male with clinically either bronchitis wall pneumonia. Is a known history of COPD. He will be treated with DuoNeb aerosol and prednisone for his wheezing. Chest x-ray will be obtained to be assessed for possible pneumonia. Repeat exam at 8:36 PM patient is improved after aerosols and steroids. Chest x-ray spine changes vital [place] obvious pneumonia. He will be treated with Zithromax given his first dose here and into 50-day for the next 4 days. Placed on 7 days of prednisone. Follow-up with his primary care physician to ensure he is improving or return if worse. Radiography Diagnostic Testing: Clinical Impression(s) from Imaging Studies Chest X-Ray 06/19/21 19:52 Chest x-ray, portable, single view interpreted by myself and the radiologist shows chronic changes consistent with COPD. No obvious infiltrate. Normal cardiac silhouette mediastinum. Discharge Plan Triage Chief Complaint: Shortness of Breath ED Provider: David Valentino Dx/Rx/DC Orders Clinical Impression: Bronchitis, COPD exacerbation, History of diabetes mellitus, History of TX (myocardial infarction) Instructions: ED Bronchitis with Wheezing (Adult), ED COPD Flare Prescriptions: New azithromycin [Zithromax Z-Jose] 250 mg tablet 250 mg PO DAILY 4 Days Qty: 4 RF: 0 prednisone 20 mg tablet 40 mg PO DAILY 7 Days Qty: 14 RF: 0 No Action melatonin 3 mg tablet 3 mg PO HS RF: 0 metformin 500 mg tablet extended release 24 hr 500 mg PO DAILY RF: 0 trazodone 100 mg tablet 50 mg PO QHS RF: 0 dicyclomine 20 mg tablet 20 mg PO BID RF: 0 mirtazapine 15 mg tablet 15 mg PO DAILY RF: 0 aripiprazole 10 mg tablet 10 mg PO DAILY RF: 0 icosapent ethyl [Vascepa] 1 gram capsule 2 g PO BID RF: 0 baclofen 10 mg tablet 10 mg PO TID RF: 0 potassium chloride 10 mEq tablet,ER particles/crystals 10 meq PO DAILY RF: 0 sertraline 100 mg tablet 100 mg PO DAILY RF: 0 ropinirole 0.5 MG tablet 0.5 mg PO QHS RF: 0 tamsulosin 0.4 MG capsule,extended release 24hr 0.4 mg PO QHS RF: 0 donepezil 10 MG tablet 10 mg PO QHS RF: 0 omeprazole 40 MG capsule,delayed release(DR/EC) 40 mg PO DAILY RF: 0 atorvastatin 40 mg tablet See Rx Instructions .ROUTE .COMPLEX Qty: 28 RF: 11 albuterol sulfate 2.5 mg /3 mL (0.083 %) solution for nebulization 2.5 mg INHALATION Q8H PRN PRN (Reason: shortness of breath or wheezing) Qty: 180 RF: 6 clopidogrel 75 mg tablet 75 mg PO DAILY Qty: 90 RF: 3 Trelegy Ellipta 100-62.5-25 mcg blister with device 1 inh INHALATION DAILY Qty: 60 RF: 5 losartan 100 mg tablet 100 mg PO DAILY Qty: 30 RF: 11 Primary Care Provider: Ani Andersen Referrals: Ani Andersen DO [Primary Care Provider] - 3-5 Days Activity Restrictions/Additional Instructions: You have bronchitis and a flare of your COPD. Use your inhalers as needed at home. Prednisone daily 40 mg a day for the next 7 days start tomorrow. You will be started on antibiotic Zithromax we gave you a dose tonight you can start that tomorrow at lunch for the next 4 days. Follow-up with your doctor to ensure you are improving return to the emergency department if you are feeling worse. Disposition Disposition: Home, Self Care
[2021-06-19 19:32] VITALS: PULSE 87; RESP 20; O2SAT 93
[2021-06-19] MEDS: Ipratropium/Albuterol Sulfate 3 ML AMPUL.NEB INHALATION (19:32)
[2021-06-19] MEDS: predniSONE 20 MG Tablet 60 MG PO (19:33)
--- NOTE | 2021-06-19 19:52 | RAD_ITS ---
INDICATION: cough EXAMINATION/TECHNIQUE: X-RAY - XR Chest 1 View 7:44 PM COMPARISON: 05/18/2021. FINDINGS: LUNGS: Minimal patchy opacity in the left lung base. Right lung is clear. No pneumothorax. MEDIASTINUM: Unremarkable. CARDIAC SILHOUETTE: Not enlarged. BONES AND SOFT TISSUES: No acute abnormalities. Surgical hardware lower cervical spine. IMPRESSION: Minimal left basilar opacity may be atelectasis or early infiltrate. Electronically Signed: Jovanna Bess MD at 20:08 EDT , RAD/Chest 1 View (Portable)
[2021-06-19 20:56] VITALS: BP 122/83; PULSE 94; RESP 16; O2SAT 94
[2021-06-19] MEDS: Azithromycin 250 MG Tablet 500 MG PO (20:56)
== END 2021-06-19 21:00 | disposition home or self-care (01) ==
PROVIDERS: Emergency Provider Emergency Medicine; PCP Internal Medicine; Visit Provider Emergency Medicine
DX: J40 Bronchitis, not specified as acute or chronic (principal); J44.1 Chronic obstructive pulmonary disease with (acute) exacerbation; I25.10 Atherosclerotic heart disease of native coronary artery without angina pectoris; G47.33 Obstructive sleep apnea (adult) (pediatric); I25.2 Old myocardial infarction; Z87.891 Personal history of nicotine dependence; Z28.310 Unvaccinated for COVID-19; Z95.5 Presence of coronary angioplasty implant and graft
CPT/HCPCS: 71045; 94640; 99251; 99283; G0463

== ENCOUNTER 2021-06-22 15:06 | Emergency (ER) | payer MEDICARE, MEDICAID, SELFPAY ==
[2018-10-16 10:45] VITALS: BMI 21.8
[2021-06-22 15:07] VITALS: BP 135/72; PULSE 68; RESP 15; TEMP 36.3; O2SAT 98; BMI 25.0
--- NOTE | 2021-06-22 15:24 | EX.ED.DYSGE1 ---
HPI <GAURAV Chicas - Last Filed: 06/22/21 18:20> History of Present Illness Chief Complaint: General Illness Narrative Narrative: Patient is a 71-year-old male with history of hypertension, diabetes, CAD with 2 MIs, presents the emergency department with a cough, dehydration. Patient was seen here 2 days ago, patient did receive an x-ray, given breathing treatments, started on antibiotics, as well as steroids. He followed up with his PCP who wanted him get IV fluids as well as a COVID-19/influenza test. Patient's COVID-19/influenza was negative. However they were unable to get an IV on the patient to give him fluids so they sent him here for evaluation. Patient states he still feels short of breath, patient has hot and cold flashes. Patient states he generally feels the same. Patient denies any nausea vomiting. He is currently taking the steroids and antibiotics [facility] <GAURAV Chicas - Last Filed: 06/22/21 18:20> [facility] Medical History Anxiety Asthma Atherosclerotic heart disease of [place] coronary artery without angina pectoris Bipolar disorder BPH (benign prostatic hyperplasia) Cannabis dependence Cervical radiculitis Cervical spondylosis Chest pain Chest tightness DDD (degenerative disc disease) Dementia Depression Dyspnea on exertion Essential (primary) hypertension Fatigue History of pulmonary embolism Hyperlipidemia IBS (irritable bowel syndrome) Lung nodule < 6cm on CT MONIQUE (obstructive sleep apnea) Partial tear of right rotator cuff Peptic ulcer disease Pleurisy PVCs (premature ventricular contractions) Restless leg syndrome Schizophrenia Smoking greater than 40 pack years Stage 2 moderate COPD by GOLD classification Syncope and collapse Trigger finger Wheezing Home Medications ropinirole 0.5 mg PO QHS 04/23/16 [History Last Taken 07/29/19] tamsulosin 0.4 mg PO QHS 01/30/17 [History Last Taken 07/29/19] donepezil 10 mg PO QHS 07/30/19 [History Last Taken 07/29/19] omeprazole 40 mg PO DAILY 07/30/19 [History Last Taken 07/30/19] atorvastatin 40 mg tablet See Rx Instructions .ROUTE .COMPLEX #28 tab 08/24/20 [Rx Last Taken Unknown] melatonin 3 mg tablet 3 mg PO HS 06/18/21 [History Last Taken Unknown] metformin 500 mg tablet,extended release 24 hr 500 mg PO DAILY tab 09/01/20 [History Last Taken Unknown] albuterol sulfate 2.5 mg INHALATION Q8H PRN PRN #180 ml 09/08/20 [Rx Last Taken Unknown] aripiprazole 10 mg tablet 10 mg PO DAILY 11/09/20 [History Last Taken Unknown] baclofen 10 mg tablet 10 mg PO TID 11/09/20 [History Last Taken Unknown] dicyclomine 20 mg tablet 20 mg PO BID 11/09/20 [History Last Taken Unknown] icosapent ethyl 1 gram capsule 2 g PO BID 11/09/20 [History Last Taken Unknown] mirtazapine 15 mg tablet 15 mg PO DAILY 11/09/20 [History Last Taken Unknown] trazodone 100 mg tablet 50 mg PO QHS tab 11/09/20 [History Last Taken Unknown] clopidogrel 75 mg tablet 75 mg PO DAILY #90 tab 02/12/21 [Rx Last Taken Unknown] fluticasone fur. 100 mcg-umeclid 62.5 mcg-vilant 25 mcg inhalat.powder 1 inh INHALATION DAILY #60 ea 02/13/21 [Rx Last Taken Unknown] losartan 100 mg tablet 100 mg PO DAILY #30 tab 05/18/21 [Rx Last Taken Unknown] potassium chloride 10 mEq tablet,extended release(part/cryst) 10 meq PO DAILY tab 05/18/21 [History Last Taken Unknown] sertraline 100 mg tablet 100 mg PO DAILY tab 05/18/21 [History Last Taken Unknown] azithromycin [Zithromax Z-Jose] 250 mg PO DAILY 4 Days #4 tab 06/19/21 [Rx Last Taken Unknown] prednisone 40 mg PO DAILY 7 Days #14 tab 06/19/21 [Rx Last Taken Unknown] potassium chloride 20 meq PO BID 3 Days #6 tab 06/22/21 [Rx Last Taken Unknown] Allergy/AdvReac Type Severity Reaction Status Date / Time Quinolones Allergy Unknown unknown Verified 06/22/21 15:09 aspirin Allergy Itching, Verified 06/22/21 15:09 Hives levofloxacin [From Levaquin] Allergy Hives, Verified 06/22/21 15:09 Itching Penicillins Allergy Hives, Verified 06/22/21 15:09 Itching Family History Mother CAD (coronary artery disease) Sister Diabetes Surgical History H/O cervical spine surgery H/O ventral hernia repair History of appendectomy History of arthroscopy History of cholecystectomy History of coronary artery stent placement (10/16/18) History of left heart catheterization (04/2016) Social History household members: none housing: house current occupational status: disabled Smoking Status: Former smoker quit date: 02/14/15 how long ago did patient quit smokin years ago second hand exposure: Yes alcohol intake: former details: Quit 9 years ago substance use type: does not use caffeine: Yes Type: coffee what type of physical activity do you participate in: none seatbelt use: always do you feel safe at home: Yes ROS <GAURAV Chicas - Last Filed: 06/22/21 18:20> ROS ED ROS Narrative Constitutional: Negative for weight loss, weakness. Subjective fever and chills Eyes: Negative for vision loss, vision change, double vision ENT: Negative for any sore throat, ear pain, congestion Cardiovascular: Negative for any chest pain, tightness, palpitations, racing heartbeat Respiratory: Negative for any hemoptysis, orthopnea. Positive for cough, shortness of breath, sputum production, shortness of breath on exertion. Gastrointestinal: Negative for any abdominal pain, nausea, vomiting, diarrhea, constipation, blood in stool, blood in vomit : Negative for any urinary frequency, incontinence, dysuria, retention, blood in urine Muscle skeletal: Negative for any muscle joint pain, stiffness, myalgias, arthralgias, neck pain, back pain Neurological: Negative for any headache, dizziness, syncope, numbness or tingling Skin: Negative for any rashes, lumps, itching, abrasions, lacerations Psychiatric: Negative for any depression, anxiety, stress, suicidal ideation, homicidal ideation Hematologic: Negative for any easy bruising, excessive bruising, easy bleeding Allergies: Negative for any eczema, hives, rash EXAM <GAURAV Chicas - Last Filed: 06/22/21 18:20> Physical Exam Narrative Exam Narrative: Vital signs reviewed. Patient appears to be in no respiratory distress. Patient's vital signs are stable. HEET: Head normocephalic atraumatic, TMs clear bilaterally. Posterior pharynx is clear, moist dry membranes. Nares clear bilaterally. Neck: Supple with no lymphadenopathy or tenderness. No signs of meningismus, negative jolt sign. Cardiac: Regular rate and rhythm no murmurs gallops or rubs, equal peripheral pulses bilaterally. Respiratory: Patient has some rhonchus breath sounds in the right upper lobe. Diminished breath sounds in the bases.. No chest tenderness. Abdomen: Soft, nontender, nondistended. No abdominal bruit or pulsatile masses. No hepatosplenomegaly Extremities: No peripheral edema, no signs of gross trauma or deformity. Active full range of motion of all extremities. Neuro: Cranial nerves II through XII intact, no focal neurological deficits. Skin: Clean dry and intact with no rash, purpura, petechiae, vesicles or pustules. Backslash flank: No CVA tenderness, no midline spinal tenderness, no deformity. Psych: Normal mood and affect. No SI, HI or acute psychosis. Const Vital Signs: 06/22/21 15:07 06/22/21 15:48 06/22/21 16:22 Temperature 97.3 F L Temperature Source Temporal Pulse Rate 68 Respiratory Rate 15 20 H Respiratory Effort Normal Respiratory Pattern Normal Normal Blood Pressure 135/72 H Blood Pressure Mean 93 Pulse Ox 98 Oxygen Delivery Method Room Air 06/22/21 18:14 06/22/21 19:01 Temperature Temperature Source Pulse Rate 71 87 Respiratory Rate 16 16 Respiratory Effort Respiratory Pattern Blood Pressure 130/78 H 142/81 H Blood Pressure Mean 95 Pulse Ox 99 97 Oxygen Delivery Method Positive well nourished and well developed General Appearance ED: well developed <Dr. Sophia Boone, DO - Last Filed: 06/23/21 00:38> Physical Exam Const Vital Signs: 06/22/21 15:07 06/22/21 15:48 06/22/21 16:22 Temperature 97.3 F L Temperature Source Temporal Pulse Rate 68 Respiratory Rate 15 20 H Respiratory Effort Normal Respiratory Pattern Normal Normal Blood Pressure 135/72 H Blood Pressure Mean 93 Pulse Ox 98 Oxygen Delivery Method Room Air 06/22/21 18:14 06/22/21 19:01 Temperature Temperature Source Pulse Rate 71 87 Respiratory Rate 16 16 Respiratory Effort Respiratory Pattern Blood Pressure 130/78 H 142/81 H Blood Pressure Mean 95 Pulse Ox 99 97 Oxygen Delivery Method [facility] <Julien DevineJESIKA-C - Last Filed: 06/22/21 18:20> [facility] Narrative Medical decision making narrative: Patient appears well, patient appears nontoxic, vital signs are stable. Patient presents the emergency department for IV fluids secondary to the patient's PCP not being able to obtain an IV at their office. Because the patient complained of shortness of breath, is being treated for bronchitis/pneumonia, the patient did receive a chest x-ray. The chest x-ray read by her ER attending shows no airspace consolidation or pleural effusion on the current exam. Patient did receive basic laboratory values. Patient CBC was unremarkable, patient's chemistries were positive for hypokalemia with a potassium of 2.8. Patient received not only IV fluids but also 10 mEq of potassium as well as 40 mEq of potassium by mouth. Patient feels better after IV fluids. Patient also received breathing treatments he states does help. At this time, patient will continue his Zithromax, prednisone, he will also be given 3 days of potassium. He is instructed to maintain hydration as well as follow-up with his PCP. Patient stable for discharge Lab Data Attestation: I reviewed the patient's lab results. Labs: Laboratory Results - last 24 hr 06/22/21 06/22/21 06/22/21 15:45 15:45 15:45 WBC 7.8 RBC 4.45 L Hgb 11.5 L Hct 36.0 L MCV 80.9 MCH 25.8 L MCHC 31.9 L RDW Std Deviation 40.1 RDW Coeff of Tad 13.8 Plt Count 290 MPV 10.3 Immature Gran % (Auto) 0.500 Neut % (Auto) 64.0 Lymph % (Auto) 24.6 [place] % (Auto) 9.8 Eos % (Auto) 0.8 Baso % (Auto) 0.3 Absolute Neuts (auto) 5.0 Absolute Lymphs (auto) 1.91 Nucleated RBC % 0 Sodium 142 Potassium 2.8 L Chloride 108 H Carbon Dioxide 29.0 Anion Gap 5 BUN 19 H Creatinine 1.04 Estim Creat Clear Calc 69.43 Est GFR (MDRD) Af Amer 90 Est GFR (MDRD) Non-Af 74 BUN/Creatinine Ratio 18.3 Glucose 97 Calcium 8.4 L Magnesium 2.1 Radiography Diagnostic Testing: Clinical Impression(s) from Imaging Studies Chest X-Ray 06/22/21 16:02 IMPRESSION: No airspace consolidation or pleural effusion on the current exam. Electronically Signed: Jared Figueroa MD ([place]) at 16:13 EDT Reading Location ID and State: / [place] , Service support , <Dr. Sophia Boone, DO - Last Filed: 06/23/21 00:38> [facility] Lab Data Labs: Laboratory Results - last 24 hr 06/22/21 06/22/21 06/22/21 15:45 15:45 15:45 WBC 7.8 RBC 4.45 L Hgb 11.5 L Hct 36.0 L MCV 80.9 MCH 25.8 L MCHC 31.9 L RDW Std Deviation 40.1 RDW Coeff of Tad 13.8 Plt Count 290 MPV 10.3 Immature Gran % (Auto) 0.500 Neut % (Auto) 64.0 Lymph % (Auto) 24.6 [place] % (Auto) 9.8 Eos % (Auto) 0.8 Baso % (Auto) 0.3 Absolute Neuts (auto) 5.0 Absolute Lymphs (auto) 1.91 Nucleated RBC % 0 Sodium 142 Potassium 2.8 L Chloride 108 H Carbon Dioxide 29.0 Anion Gap 5 BUN 19 H Creatinine 1.04 Estim Creat Clear Calc 69.43 Est GFR (MDRD) Af Amer 90 Est GFR (MDRD) Non-Af 74 BUN/Creatinine Ratio 18.3 Glucose 97 Calcium 8.4 L Magnesium 2.1 Radiography Diagnostic Testing: Clinical Impression(s) from Imaging Studies Chest X-Ray 06/22/21 16:02 IMPRESSION: No airspace consolidation or pleural effusion on the current exam. Electronically Signed: Jared Figueroa MD ([place]) at 16:13 EDT Reading Location ID and State: / [place] , Service support , Treatment and Re-Evaluation Narrative: I have personally performed a face to face assessment of the patient and have reviewed the LOPEZ Note. I performed a substantive portion of the visit including all aspects of the following. My stratton findings include: History is [patient is evaluated for concerns of dehydration. He was previously diagnosed bronchitis has decreased oral intake. PCP wanted to give him IV fluids but they were unable to obtain an IV so he was sent to the emergency room] Exam is overall patient is well-appearing. No acute distress. Does not appear significantly dehydrated. Lungs are coarse with some mild wheezing. No peripheral edema. Medical Decision Making patient is given IV fluids. He is also given a breathing treatment. Suspect patient is having sequelae of his recent respiratory infection. He is found to be hypokalemic. He is given IV and oral potassium replacement. Magnesium checked which is normal. Chest x-rays not show any new infiltrate or acute process. Patient is agreeable to discharge home after interventions the ER. He is discharged in stable and improved condition. He ambulates easily out of the emergency room. Other additions or changes: [None] Discharge Plan Triage Chief Complaint: General Illness ED Midlevel Provider: Julien Devine ED Provider: Sophia Boone Dx/Rx/DC Orders Clinical Impression: Dehydration, Acute hypokalemia, Bronchitis Prescriptions: New potassium chloride 20 mEq tablet extended release 20 meq PO BID 3 Days Qty: 6 RF: 0 No Action melatonin 3 mg tablet 3 mg PO HS RF: 0 metformin 500 mg tablet extended release 24 hr 500 mg PO DAILY RF: 0 trazodone 100 mg tablet 50 mg PO QHS RF: 0 dicyclomine 20 mg tablet 20 mg PO BID RF: 0 mirtazapine 15 mg tablet 15 mg PO DAILY RF: 0 aripiprazole 10 mg tablet 10 mg PO DAILY RF: 0 icosapent ethyl [Vascepa] 1 gram capsule 2 g PO BID RF: 0 baclofen 10 mg tablet 10 mg PO TID RF: 0 potassium chloride 10 mEq tablet,ER particles/crystals 10 meq PO DAILY RF: 0 sertraline 100 mg tablet 100 mg PO DAILY RF: 0 ropinirole 0.5 MG tablet 0.5 mg PO QHS RF: 0 tamsulosin 0.4 MG capsule,extended release 24hr 0.4 mg PO QHS RF: 0 donepezil 10 MG tablet 10 mg PO QHS RF: 0 omeprazole 40 MG capsule,delayed release(DR/EC) 40 mg PO DAILY RF: 0 azithromycin [Zithromax Z-Jose] 250 mg tablet 250 mg PO DAILY 4 Days Qty: 4 RF: 0 prednisone 20 mg tablet 40 mg PO DAILY 7 Days Qty: 14 RF: 0 atorvastatin 40 mg tablet See Rx Instructions .ROUTE .COMPLEX Qty: 28 RF: 11 albuterol sulfate 2.5 mg /3 mL (0.083 %) solution for nebulization 2.5 mg INHALATION Q8H PRN PRN (Reason: shortness of breath or wheezing) Qty: 180 RF: 6 clopidogrel 75 mg tablet 75 mg PO DAILY Qty: 90 RF: 3 Trelegy Ellipta 100-62.5-25 mcg blister with device 1 inh INHALATION DAILY Qty: 60 RF: 5 losartan 100 mg tablet 100 mg PO DAILY Qty: 30 RF: 11 Primary Care Provider: Ani Andersen Referrals: Ani Andersen DO [Primary Care Provider] - Print Language: Urdu Disposition Disposition: Home, Self Care Discharge Date/Time: 06/22/21 19:02
[2021-06-22] MEDS: Albuterol 2.5 MG/3 ML VIAL.NEB. INHALATION (15:46)
[2021-06-22] MEDS: Ipratropium/Albuterol Sulfate 3 ML AMPUL.NEB INHALATION (15:46)
[2021-06-22 15:48] VITALS: RESP 20
[2021-06-22 16:01] LABS: Absolute Lymphocyte Count 1.91 X10^3/uL (0.83-4.51); Basophil# 0.02 X10^3/uL; Basophil% 0.3 % (0-1); Eosinophil# 0.06 X10^3/uL; Eosinophils% 0.8 % (0-5); Hemoglobin 11.5 g/dL (13.0-16.5); Lymphocyte # 1.91 X10^3/ul (0.83-4.51); Lymphocyte % 24.6 % (19-41); Mean Corp Hgb Conc 31.9 g/dL (32-36); Mean Corpuscular Hgb 25.8 pg (27.0-32.0); Mean Corpuscular Volume 80.9 fL (80-94); Mean Platelet Vol. 10.3 fl (6.2-12.0); Monocyte# 0.76 X10^3/uL; Monocyte% 9.8 % (0-10); NRBC Flagged by Analyzer 0 % (0-5); Neutrophil # 4.96 X10^3/uL (2.7-7.7); Platelet Count 290 K/mm3 (150-450); RBC Distribution Width CV 13.8 % (11.6-14.6); RBC Distribution Width SD 40.1 fl (35.1-43.9); Red Blood Count 4.45 M/mm3 (4.6-6.2); White Blood Count 7.8 K/mm3 (4.4-11.0)
--- NOTE | 2021-06-22 16:02 | RAD_ITS ---
STUDY: X-RAY CHEST REASON FOR EXAM: Male, 71 years old. cough TECHNIQUE: AP COMPARISON: 06/19/2021 FINDINGS: Fusion hardware the lower cervical spine. The lungs are clear and expanded. There is no demonstrated pleural abnormality. Normal size heart. Normal mediastinum and bessy. Normal visualized pulmonary arteries. Normal visualized aortic arch and descending thoracic aorta. Normal visualized thoracic spine. Normal visualized ribs, clavicles, and shoulders. There is no demonstrated abnormality of the visualized soft tissue structures of the upper abdomen. RAD/Chest 1 View (Portable) IMPRESSION: No airspace consolidation or pleural effusion on the current exam. Electronically Signed: Jared Figueroa MD ([place]) at 16:13 EDT ,
[2021-06-22 16:13] LABS: Anion Gap 5 (5-15); BUN 19 mg/dL (7-18); BUN/Creat Ratio 18.3 RATIO (10-20); Calcium,Total 8.4 mg/dL (8.5-10.1); Chloride 108 mmol/L (98-107); Creatinine, Serum 1.04 mg/dL (0.70-1.30); EST Glomerular Filtration Rate 74 mL/min (>60); Est Glom Filt Rate - Afr Amer 90 mL/min (>60); Estimated Creatinine Clearance 69.43 ml/min; Glucose 97 mg/dL (74-106); Potassium 2.8 mmol/L (3.5-5.1); Sodium Level 142 mmol/L (136-145)
[2021-06-22] MEDS: 0.9% Normal Saline 1,000 ML 999 ML IV (16:21)
[2021-06-22 16:39] LABS: Magnesium 2.1 mg/dL (1.6-2.6)
[2021-06-22] MEDS: Potassium Chloride 10mEq/100mL 10 MEQ/100 ML IV.SOLN. 100 MEQ IV BOLUS (17:19)
[2021-06-22] MEDS: Potassium Chloride Oral Tablet 20 MEQ 40 MEQ PO (17:19)
[2021-06-22 18:14] VITALS: BP 130/78; PULSE 71; RESP 16; O2SAT 99
[2021-06-22 19:01] VITALS: BP 142/81; PULSE 87; RESP 16; O2SAT 97
== END 2021-06-22 19:02 | disposition home or self-care (01) ==
PROVIDERS: Nurse Practitioner; Emergency Provider Emergency Medicine; PCP Internal Medicine; Visit Provider Emergency Medicine
DX: E86.0 Dehydration (principal); G47.33 Obstructive sleep apnea (adult) (pediatric); I25.2 Old myocardial infarction; E87.6 Hypokalemia; I25.10 Atherosclerotic heart disease of native coronary artery without angina pectoris; Z95.5 Presence of coronary angioplasty implant and graft; Z87.891 Personal history of nicotine dependence
CPT/HCPCS: 71045; 80048; 83735; 85025; 94640; 96365; 96366; 99283; J7030

== ENCOUNTER 2021-07-05 11:30 | Outpatient (RCR) | payer MEDICARE, MEDICAID, SELFPAY ==
[2018-10-16 10:45] VITALS: BMI 21.8
--- NOTE | 2021-05-17 13:06 | HP.PTEVAL ---
Patient's Visit Information LILLIAN GUERRERO is a 71 year old M referred to Physical Therapy by Dr. Ani Andersen DO with a diagnosis of Bilateral Knee Pain. Date of Evaluation: 05/17/21 Physical Therapist: Kasia Main DPT - Visit Plan Frequency: 2x /Week Duration: 4 Weeks Plan: Focus on LE and core strength/stabilization- US as modality of choice. Functional mobility - Subjective Patient reports that he has had knee pain bilateral for 3 weeks- insidious onset. Left Is worse than the right. Went to the MD who took x-rays which were negative for OA. They did not do any injections or medications. Pain is located in the medial joint line and along the top of the knee. Describes the pain as sharp- and the pain is there all the time. Worst: 11/24 Agg: standing on them Eases: nothing- has tried ice and rest. Best: 1-04/26. He has swollen ankles and feet and they are looking to his heart and kidneys. He has had two ID with the last one in 1982- they place two stints at that time. He does have N/T that comes and goes- in the medial portion of the knee. Has never had knee problems or surgeries before. 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 Sleep: disturbed- side sleeper- wake him up at night. PMHx/Meds: no changes since saw MD. - Objective Posture: FH, RS increased kyphosis. Gait: antalgic- decreased stance on the left LE- decrease heel/toe pattern- slow hawk. No AD- PT did recommend use of a cane in the right UE. HR/TR: able with reports of pain. SLS: unable reports feelings of buckling and discomfort. ROM: Seated: 0-90 degrees Supine: 0-20 degrees. Strength: Core: fair minus, Hip: 4+/5 throughout, Knee: 3/5, Ankle: 5/5. Flex: HS: severe, Gastroc: Severe. Very guarded throughout hard to get good objective. - Balance/Special Test Scores Lower Extremity Functional Score: 15 - Goals Goal 1:: Patient will be I with HEP and progression Goal Time Frame: 4-6 Weeks Goal 2:: Patient will ambulate >300 feet with a normalized gait pattern Goal Time Frame: 4-6 Weeks Goal 3:: Patient will asc/desc 8 stairs recip with 1 HR Goal Time Frame: 4-6 Weeks Goal 4:: Patient will SLS for 10 sec without LOB Goal Time Frame: 4-6 Weeks Goal 5:: Patient will report 75% improvement Goal Time Frame: 4-6 Weeks - Rehabilitation Potential Physical Therapy Diagnosis: Patient presents with hypomobility- he had decreased ROM, LE and core strength/stabilization, flexibility and muscular endurance leading to abnormal gait pattern and decreased ability to perform ADL's. Rehabilitation Potential: Fair - Anticipated Interventions Patient/Client Instruction: Educate patient on: Benefits of Fitness Program Therapeutic Exercise to Include: Strength training, Endurance training, Balance training, Coordination, Agility training, Body mechanics, Postural training, Flexibilty training, Gait and locomotor training, Neuromotor development, Dynamic Lumbar Stabilization, Scapular Strength/Stabilization For the Purpose of:: To improve muscle performance and motor function TENS: Yes Cryotherapy (ice pack, ice massage): Yes Thermo therapy (hot pack): Yes Ultrasound (thermal/non thermal): Yes Thank you for the opportunity to evaluate your patient. For Medicare and Medicare HMO plans, please review the plan of care and approve it. It will need to be FAXED BACK to us at [phone] for Medicare purposes. For Medicare only, by signing this I certify the plan of care. Please let me know if there are questions or concerns regarding this plan of care. Physician Signature: Date:
--- NOTE | 2021-07-05 11:50 | HP.PTDCSUM ---
It has been my pleasure to treat LILLIAN GUERRERO referred by Dr. Ani Andersen DO, with the diagnosis of Bilateral Knee Pain for a total of 9 visit(s). Discharge Date: Please see the following information for a summary of their discharge status. Subjective: Patient reports that his knee is still really sore- its there all the time. Worst: 8/10 Best: 0/10- eases heat. He has not had an injections but his MD wants to give him one. Left Knee Pain Intensity (Out of 10): 8 % Improvement: 60 Objective/Function: Posture: FH, RS increased kyphosis. Gait: no deviation noted HR/TR: able with reports of pain. SLS: 15 sec with increased muscle sway ROM: 0-115 degrees with pain at end range flexion Strength: Core: fair minus, Hip: 4+/5 throughout, Knee: 4+/5, Ankle: 5/5. Flex: HS: mod, Gastroc: moderate. Sit to Stand: without UE A Goal 1:: Patient will be I with HEP and progression Goal Progress: Goal Met Goal 2:: Patient will ambulate >300 feet with a normalized gait pattern Goal Progress: Goal Met Goal 3:: Patient will asc/desc 8 stairs recip with 1 HR Goal Progress: Goal Met Goal 4:: Patient will SLS for 10 sec without LOB Goal Progress: Goal Met Goal 5:: Patient will report 75% improvement Plan: 07/05/21: Discharge to [facility] and return to MD for further evaluation. IE: Focus on LE and core strength/stabilization- US as modality of choice. Functional mobility If there are questions or concerns regarding this patient's physical therapy, please feel free to call me at [phone]. Thank you for the referral of this patient. Sincerely, Kasia Main, DPT Balance/Gait/Functional tests - Balance/Special Test Scores Lower Extremity Functional Score: 12
== END 2021-07-05 12:16 | disposition home or self-care (01) ==
LOC: PT 11:30
PROVIDERS: PCP Internal Medicine; Referring Provider Internal Medicine; Visit Provider Internal Medicine
DX: M25.561 Pain in right knee (principal); M25.562 Pain in left knee
CPT/HCPCS: 97110; 97162; 97164

== ENCOUNTER → 2021-07-09 | Outpatient (CLI) | payer MEDICARE, MEDICAID, SELFPAY ==
[2018-10-16 10:45] VITALS: BMI 21.8
[2021-07-09 09:09] VITALS: PULSE 76; PULSE 77; PULSE 85; PULSE 92; PULSE 95; PULSE 96; O2SAT 94; O2SAT 95
--- NOTE | 2021-07-09 12:32 | PCM.PSN.6M ---
PSN 6 Minute Walk Test 6 Minute Walk Test 6 Minute Walk Test: 6 Minute Walk Test PSN:6-Minute Walk Test Start: 07/09/21 09:09 Freq: Status: Active Protocol: RESP.6MINW Document 07/09/21 09:09 CATINA (Rec: 07/09/21 09:14 CATINA [id number]) 6 Minute Walk Test Date Performed 07/09/21 Time Performed 08:15 Height 6 ft Weight: 82.554 kg Weight in Pounds 182.[address]: Jose F Phillips Assistive device used: None Pre-test Oxygen Delivery Method Room Air Pulse Ox (%) 95 Pulse Rate (60-100 beats/min) 76 Dyspnea She Scale (0-10) 0.5 Exertion She Scale (6-20) 6 1st minute Oxygen Delivery Method Room Air Pulse Ox (%) 95 Pulse Rate (60-100 beats/min) 85 2nd minute Oxygen Delivery Method Room Air Pulse Ox (%) 95 Pulse Rate (60-100 beats/min) 92 3rd minute Oxygen Delivery Method Room Air Pulse Ox (%) 95 Pulse Rate (60-100 beats/min) 92 4th minute Oxygen Delivery Method Room Air Pulse Ox (%) 94 Pulse Rate (60-100 beats/min) 96 5th minute Oxygen Delivery Method Room Air Pulse Ox (%) 94 Pulse Rate (60-100 beats/min) 95 6th minute Oxygen Delivery Method Room Air Pulse Ox (%) 95 Pulse Rate (60-100 beats/min) 96 Dyspnea She Scale (0-10) 3 Exertion She Scale (6-20) 14 Post-test Oxygen Delivery Method Room Air Pulse Ox (%) 95 Pulse Rate (60-100 beats/min) 77 Full Laps Walked 15 Partial Lap, Number of Tiles Walked 10 Total Distance Walked (ft) 895 Interpretation Interpretation: The patient was able to ambulate 895 feet over the course of 6 minutes on room air with no assistive devices or breaks. The patient experienced no significant desaturation or tachycardia during testing. These findings are consistent with a musculoskeletal limitation exercise tolerance. Recommendations Recommendations: No supplemental oxygen is indicated at this time.
== END | disposition home or self-care (01) ==
LOC: PSN 08:14
PROVIDERS: PCP Internal Medicine; Referring Provider Nurse Practitioner Acute Care; Visit Provider Nurse Practitioner Acute Care
DX: R06.02 Shortness of breath (principal); J44.9 Chronic obstructive pulmonary disease, unspecified
CPT/HCPCS: 94618

== ENCOUNTER 2021-08-03 05:20 | Emergency (ER) | payer MEDICARE, MEDICAID, SELFPAY ==
[2018-10-16 10:45] VITALS: BMI 21.8
[2021-08-03 05:21] VITALS: BP 157/71; PULSE 77; RESP 20; TEMP 36.8; O2SAT 95; BMI 25.6
--- NOTE | 2021-08-03 05:23 | EKG12_ITS ---
Test Reason : DYSRHYTHMIA Blood Pressure : / mmHG Vent. Rate : 073 BPM Atrial Rate : 073 BPM P-R Int : 166 ms QRS Dur : 076 ms QT Int : 404 ms P-R-T Axes : 049 038 031 degrees QTc Int : 445 ms Normal sinus rhythm Septal infarct , age undetermined Abnormal ECG Confirmed by AMARA STEVENSON, MARCUS ([id number]), newspaper editor managing GRACIELA BARBOZA ([id number]) on 08/06/2021 10:00:47 A M Referred By: TENZIN Confirmed By:MELISSA MALONEY MD
--- NOTE | 2021-08-03 05:23 | RAD_ITS ---
INDICATION: sob EXAMINATION/TECHNIQUE: X-RAY - XR Chest 1 View COMPARISON: 06/22/2021 FINDINGS: LINES/DEVICES: None. LUNGS: No consolidation, edema or effusion. No pneumothorax. MEDIASTINUM AND CARDIOVASCULAR STRUCTURES: Cardiac silhouette not enlarged. Central airways and mediastinal contour are unremarkable. BONES AND SOFT TISSUES: Cervical spine fusion hardware again seen. No acute osseous abnormality. RAD/Chest 1 View (Portable) IMPRESSION: No radiographic evidence of acute cardiopulmonary disease. Electronically Signed: Antwon Peraza MD at 6:10 EDT ,
--- NOTE | 2021-08-03 05:27 | EDS_ITS ---
HPI History of Present Illness Chief Complaint: Shortness of Breath Informant: patient Onset/Context/Timing Onset: Days Context: Gradual Onset Current Severity: Mild Maximum Severity: Moderate Narrative Narrative: Patient presents with 2-day history of shortness of breath and congestion. He states he woke this morning gasping for air. He does complain of some left-sided rib pain. He has been coughing with brown-colored sputum. He reports having a fever at home. He saw his PCP yesterday who started him on prednisone. He states he was tested for COVID at his doctor's office. [facility] Medical History (Updated 08/03/21 @ 06:[address] Lizbet Galindo MD) Anxiety Asthma Atherosclerotic heart disease of [place] coronary artery without angina pectoris Bipolar disorder Bipolar disorder BPH (benign prostatic hyperplasia) Cannabis dependence Cervical radiculitis Cervical spondylosis Chest pain Chest pain Chest tightness COPD (chronic obstructive pulmonary disease) CPAP (continuous positive airway pressure) dependence DDD (degenerative disc disease) Dementia Depression Diabetes Dyspnea on exertion Essential (primary) hypertension Fatigue Former smoker GERD (gastroesophageal reflux disease) History of pulmonary embolism Hyperlipidemia Hypertension IBS (irritable bowel syndrome) Lung nodule < 6cm on CT Migraines Myocardial infarct MONIQUE (obstructive sleep apnea) Partial tear of right rotator cuff Peptic ulcer disease Pleurisy PVCs (premature ventricular contractions) Restless leg syndrome Schizophrenia Sleep apnea Smoking greater than 40 pack years Stage 2 moderate COPD by GOLD classification Syncope and collapse Trigger finger Wheezing Home Medications ropinirole 0.5 mg PO QHS 04/23/16 [History Last Taken 07/29/19] tamsulosin 0.4 mg PO QHS 01/30/17 [History Last Taken 07/29/19] donepezil 10 mg PO QHS 07/30/19 [History Last Taken 07/29/19] omeprazole 40 mg PO DAILY 07/30/19 [History Last Taken 07/30/19] melatonin 3 mg tablet 3 mg PO HS 09/01/20 [History Last Taken Unknown] metformin 500 mg tablet,extended release 24 hr 500 mg PO DAILY tab 09/01/20 [History Last Taken Unknown] albuterol sulfate 2.5 mg INHALATION Q8H PRN PRN #180 ml 09/08/20 [Rx Last Taken Unknown] aripiprazole 10 mg tablet 10 mg PO DAILY 11/09/20 [History Last Taken Unknown] baclofen 10 mg tablet 10 mg PO TID 11/09/20 [History Last Taken Unknown] dicyclomine 20 mg tablet 20 mg PO BID 11/09/20 [History Last Taken Unknown] icosapent ethyl 1 gram capsule 2 g PO BID 11/09/20 [History Last Taken Unknown] mirtazapine 15 mg tablet 15 mg PO DAILY 11/09/20 [History Last Taken Unknown] trazodone 100 mg tablet 50 mg PO QHS tab 11/09/20 [History Last Taken Unknown] clopidogrel 75 mg tablet 75 mg PO DAILY #90 tab 02/12/21 [Rx Last Taken Unknown] losartan 100 mg tablet 100 mg PO DAILY #30 tab 05/18/21 [Rx Last Taken Unknown] potassium chloride 10 mEq tablet,extended release(part/cryst) 10 meq PO DAILY tab 05/18/21 [History Last Taken Unknown] sertraline 100 mg tablet 100 mg PO DAILY tab 05/18/21 [History Last Taken Unknown] potassium chloride 20 meq PO BID 3 Days #6 tab 06/22/21 [Rx Last Taken Unknown] budesonide 160 mcg-glycopyr 9 mcg-formot 4.8 mcg/actuation HFA inhaler 2 inh INHALATION BID #10.7 g 07/24/21 [Rx Last Taken Unknown] lamotrigine 200 mg tablet 200 mg PO DAILY tab 07/24/21 [History Last Taken Unknown] olanzapine 10 mg tablet 10 mg PO DAILY tab 07/24/21 [History Last Taken Unknown] atorvastatin 40 mg PO QHS 08/03/21 [History Last Taken Unknown] azithromycin [Zithromax] 250 mg PO DAILY 4 Days #4 tab 08/03/21 [Rx Last Taken Unknown] Allergy/AdvReac Type Severity Reaction Status Date / Time Quinolones Allergy Unknown unknown Verified 07/24/21 12:37 aspirin Allergy Itching, Verified 07/24/21 12:37 Hives levofloxacin [From Levaquin] Allergy Hives, Verified 07/24/21 12:37 Itching Penicillins Allergy Hives, Verified 07/24/21 12:37 Itching Family History Mother CAD (coronary artery disease) Sister Diabetes Surgical History (Updated 08/03/21 @ 05:28 by Airam Fontenot) H/O cervical spine surgery H/O ventral hernia repair History of appendectomy History of appendectomy History of arthroscopy History of coronary artery stent placement (10/16/18) History of left heart catheterization (04/2016) Social History household members: none housing: house current occupational status: disabled Smoking Status: Former smoker quit date: 02/14/15 how long ago did patient quit smokin years ago second hand exposure: Yes alcohol intake: former details: Quit 9 years ago substance use type: does not use caffeine: Yes Type: coffee what type of physical activity do you participate in: none seatbelt use: always do you feel safe at home: Yes ROS ROS ED Constitutional Constitutional ED: Reports fever(s) and subjective; Denies chills Eyes Eyes: Denies change in vision ENT ENT ED: Denies sore throat Cardiovascular Cardiovascular: Reports chest pain Respiratory/Chest Respiratory/Chest: Reports cough, dyspnea and sputum Gastrointestinal Gastrointestinal: Denies abdominal pain, nausea or vomiting Musculoskeletal Musculoskeletal: Denies back pain or neck pain Integumentary Denies rash Neurologic Neurologic: Denies headache(s) or weakness Allergic/Immunologic Allergic/Immunologic ED: Denies urticaria EXAM Physical Exam Const Vital Signs: 08/03/21 05:21 08/03/21 05:31 08/03/21 05:38 Temperature 98.2 F Temperature Source Oral Pulse Rate 77 83 Respiratory Rate 20 H 26 H Respiratory Effort Short of Breath Short of Breath Respiratory Depth Shallow Shallow Respiratory Pattern Tachypnea Tachypnea Blood Pressure 157/71 H Blood Pressure Mean 99 Pulse Ox 95 97 Oxygen Delivery Method Room Air Room Air Room Air Positive well nourished and well developed General Appearance ED: well developed HEENT Reports moist mucous membranes Eyes PERRL and EOMs intact bilaterally Neck no lymphadenopathy and supple Chest Wall inspection of chest normal and palpation of chest normal Resp Resp Narrative: Speaking full sentences. Auscultation: wheezes expiratory wheezes Cardio regular rate and regular rhythm GI normal to inspection, nondistended, normoactive bowel sounds and non-tender Palpation: soft Extremity normal to inspection Neuro oriented x3 Sensorium / Orientation: alert Psych mental status grossly normal Skin no rashes or lesions noted MDM MDM MDM Narrative Medical decision making narrative: Lab work and blood cultures obtained. Chest x-ray and EKG ordered. Patient given DuoNeb followed by 2 albuterol treatments along with IV Solu-Medrol. Lab Data Attestation: I reviewed the patient's lab results. Labs: Laboratory Results - last 24 hr 08/03/21 08/03/21 05:42 05:42 WBC 7.4 RBC 4.85 Hgb 12.6 L Hct 39.9 L MCV 82.3 MCH 26.0 L MCHC 31.6 L RDW Std Deviation 44.7 H RDW Coeff of Tad 15.0 H Plt Count 226 MPV 9.9 Immature Gran % (Auto) 0.700 Neut % (Auto) 60.1 Lymph % (Auto) 28.9 Woodson % (Auto) 6.2 Eos % (Auto) 3.6 Baso % (Auto) 0.5 Absolute Neuts (auto) 4.5 Absolute Lymphs (auto) 2.15 Nucleated RBC % 0 Anisocytosis 1+ Sodium 140 Potassium 3.3 L Chloride 108 H Carbon Dioxide 25.0 Anion Gap 7 BUN 12 Creatinine 1.24 Estim Creat Clear Calc 58.23 Est GFR (MDRD) Af Amer 73 Est GFR (MDRD) Non-Af 61 BUN/Creatinine Ratio 9.7 L Glucose 158 H Calcium 8.5 Radiography Chest X-Ray - ED: 1 View, Read by ED Physician, Chronic Changes and No Infiltrates Diagnostic Testing: Clinical Impression(s) from Imaging Studies Chest X-Ray 08/03/21 05:23 IMPRESSION: No radiographic evidence of acute cardiopulmonary disease. Electronically Signed: Antwon Peraza MD at 6:10 EDT , EKG Initial EKG: Attestation: I personally reviewed and interpreted this EKG as follows: Interpretation: Sinus Rhythm (Sinus at 73 with no acute ischemia.) Treatment and Re-Evaluation Narrative: On repeat evaluation patient does feel improved. Lung sounds are was still with scattered wheezes O2 sats are in the high 90s on room air. Patient already has prednisone prescribed by his PCP. We will start him on Zithromax, first dose given here. Discharge Plan Triage Chief Complaint: Shortness of Breath ED Provider: Lizbet Galindo Dx/Rx/DC Orders Clinical Impression: COPD exacerbation Instructions: ED COPD Flare Prescriptions: New azithromycin [Zithromax] 250 mg tablet 250 mg PO DAILY 4 Days Qty: 4 RF: 0 No Action melatonin 3 mg tablet 3 mg PO HS RF: 0 metformin 500 mg tablet extended release 24 hr 500 mg PO DAILY RF: 0 trazodone 100 mg tablet 50 mg PO QHS RF: 0 dicyclomine 20 mg tablet 20 mg PO BID RF: 0 mirtazapine 15 mg tablet 15 mg PO DAILY RF: 0 aripiprazole 10 mg tablet 10 mg PO DAILY RF: 0 icosapent ethyl [Vascepa] 1 gram capsule 2 g PO BID RF: 0 baclofen 10 mg tablet 10 mg PO TID RF: 0 potassium chloride 10 mEq tablet,ER particles/crystals 10 meq PO DAILY RF: 0 sertraline 100 mg tablet 100 mg PO DAILY RF: 0 olanzapine 10 mg tablet 10 mg PO DAILY RF: 0 lamotrigine 200 mg tablet 200 mg PO DAILY RF: 0 Breztri Aerosphere 160-9-4.8 mcg/actuation HFA aerosol inhaler 2 inh inhalation BID Qty: 10.7 RF: 5 ropinirole 0.5 MG tablet 0.5 mg PO QHS RF: 0 tamsulosin 0.4 MG capsule,extended release 24hr 0.4 mg PO QHS RF: 0 donepezil 10 MG tablet 10 mg PO QHS RF: 0 omeprazole 40 MG capsule,delayed release(DR/EC) 40 mg PO DAILY RF: 0 potassium chloride 20 mEq tablet extended release 20 meq PO BID 3 Days Qty: 6 RF: 0 atorvastatin 40 mg tablet 40 mg PO QHS RF: 0 albuterol sulfate 2.5 mg /3 mL (0.083 %) solution for nebulization 2.5 mg INHALATION Q8H PRN PRN (Reason: shortness of breath or wheezing) Qty: 180 RF: 6 clopidogrel 75 mg tablet 75 mg PO DAILY Qty: 90 RF: 3 losartan 100 mg tablet 100 mg PO DAILY Qty: 30 RF: 11 Primary Care Provider: Ani Andersen Referrals: Ani Andersen DO [Primary Care Provider] - 3-5 Days if not improving Disposition Disposition: Home, Self Care
[2021-08-03 05:31] VITALS: O2SAT 95
[2021-08-03 05:38] VITALS: PULSE 83; RESP 24; RESP 26; O2SAT 97
[2021-08-03] MEDS: Ipratropium/Albuterol Sulfate 3 ML AMPUL.NEB INHALATION (05:38)
[2021-08-03] MEDS: Albuterol 2.5 MG/3 ML VIAL.NEB. INHALATION ×2 (05:38→06:05)
[2021-08-03] MEDS: MethylPREDNISolone 125 MG/2 ML Vial IV (05:41)
[2021-08-03 05:53] LABS: Absolute Lymphocyte Count 2.15 X10^3/uL (0.83-4.51); Absolute Neutrophil Count 4.5 X10^3/uL (2.0-7.7); Basophil# 0.04 X10^3/uL; Basophil% 0.5 % (0-1); Eosinophil# 0.27 X10^3/uL; Eosinophils% 3.6 % (0-5); Hematocrit 39.9 % (40-54); Hemoglobin 12.6 g/dL (13.0-16.5); Lymphocyte # 2.15 X10^3/ul (0.83-4.51); Lymphocyte % 28.9 % (19-41); Mean Corp Hgb Conc 31.6 g/dL (32-36); Mean Corpuscular Volume 82.3 fL (80-94); Mean Platelet Vol. 9.9 fl (6.2-12.0); Monocyte# 0.46 X10^3/uL; Monocyte% 6.2 % (0-10); NRBC Flagged by Analyzer 0 % (0-5); Neutrophil # 4.47 X10^3/uL (2.7-7.7); Neutrophil % 60.1 % (47-70); POSITIVE COUNT YES; Platelet Count 226 K/mm3 (150-450); RBC Distribution Width SD 44.7 fl (35.1-43.9); Red Blood Count 4.85 M/mm3 (4.6-6.2); White Blood Count 7.4 K/mm3 (4.4-11.0)
[2021-08-03 05:55] LABS: Differential Indicated SCAN CRITERIA MET
[2021-08-03 06:05] LABS: Anion Gap 7 (5-15); BUN 12 mg/dL (7-18); BUN/Creat Ratio 9.7 RATIO (10-20); Calcium,Total 8.5 mg/dL (8.5-10.1); Chloride 108 mmol/L (98-107); Creatinine, Serum 1.24 mg/dL (0.70-1.30); EST Glomerular Filtration Rate 61 mL/min (>60); Est Glom Filt Rate - Afr Amer 73 mL/min (>60); Estimated Creatinine Clearance 58.23 ml/min; Glucose 158 mg/dL (74-106); Potassium 3.3 mmol/L (3.5-5.1); Sodium Level 140 mmol/L (136-145)
[2021-08-03 06:07] LABS: Anisocytosis 1+
--- NOTE | 2021-08-03 06:16 | CPS ---
x2 Albuterol given to pt. in ER as well
[2021-08-03] MEDS: Azithromycin 250 MG Tablet 500 MG PO (06:30)
[2021-08-03 06:31] VITALS: BP 115/68; PULSE 81; RESP 16; O2SAT 94
[2021-08-03 06:32] VITALS: RESP 16
== END 2021-08-03 06:32 | disposition home or self-care (01) ==
PROVIDERS: Emergency Provider Emergency Medicine; PCP Internal Medicine; Visit Provider Emergency Medicine
DX: J44.1 Chronic obstructive pulmonary disease with (acute) exacerbation (principal); F20.9 Schizophrenia, unspecified; F31.9 Bipolar disorder, unspecified; E11.9 Type 2 diabetes mellitus without complications; R07.81 Pleurodynia; I25.10 Atherosclerotic heart disease of native coronary artery without angina pectoris; I10 Essential (primary) hypertension; E78.5 Hyperlipidemia, unspecified; N40.0 Benign prostatic hyperplasia without lower urinary tract symptoms; Z79.84 Long term (current) use of oral hypoglycemic drugs; Z79.02 Long term (current) use of antithrombotics/antiplatelets; I25.2 Old myocardial infarction; Z87.891 Personal history of nicotine dependence
CPT/HCPCS: 71045; 80048; 85025; 87040; 93005; 94640; 96374; 99251; 99284; A4216; G0463

== ENCOUNTER 2021-08-26 06:33 | Emergency (ER) | payer MEDICARE, MEDICAID, SELFPAY ==
[2018-10-16 10:45] VITALS: BMI 21.8
[2021-08-26 06:34] VITALS: BP 149/65; PULSE 76; RESP 30; TEMP 36.4; O2SAT 95; BMI 25.9
[2021-08-26 06:39] VITALS: O2SAT 98
--- NOTE | 2021-08-26 06:45 | EKG12_ITS ---
Test Reason : SOB Blood Pressure : / mmHG Vent. Rate : 066 BPM Atrial Rate : 066 BPM P-R Int : 164 ms QRS Dur : 086 ms QT Int : 400 ms P-R-T Axes : 069 044 064 degrees QTc Int : 419 ms Normal sinus rhythm Septal infarct , age undetermined Abnormal ECG Confirmed by CLARA STEVENSON, MIGUELITO ([id number]), offline editor GRACIELA BARBOZA ([id number]) on 08/27/2021 10:53:48 AM Referred By: Confirmed By:MIGUELITO ELIZABETH MD
--- NOTE | 2021-08-26 06:45 | RAD_ITS ---
INDICATION: chest pain EXAMINATION/TECHNIQUE: X-RAY - XR Chest 1 View COMPARISON: 08/03/2021 FINDINGS: LINES/DEVICES: None. LUNGS: No consolidation, edema or effusion. No pneumothorax. MEDIASTINUM AND CARDIOVASCULAR STRUCTURES: Cardiac silhouette not enlarged. Central airways and mediastinal contour are unremarkable. BONES AND SOFT TISSUES: Cervical spine fusion hardware again seen. No acute osseous abnormality. RAD/Chest 1 View (Portable) IMPRESSION: No acute cardiopulmonary disease. Electronically Signed: Antwon Peraza MD at 7:51 EDT ,
--- NOTE | 2021-08-26 06:47 | EDS_ITS ---
HPI <Dr. David Valentino MD - Last Filed: 08/26/21 07:30> History of Present Illness Chief Complaint: Shortness of Breath Informant: patient Onset/Context/Timing Onset: Weeks Context: gradual Timing: Continuous Quality: Positive for Dyspnea on exertion and Wheezing Current Severity: Mild Maximum Severity: Mild Worsened by: Exertion Relieved by: Nothing Associated Symptoms Negative for cough, fever or sore throat Chest Pain: Positive for None Narrative Narrative: 71-year-old male history of asthma, COPD, CAD, NH, coronary stents on Plavix. He is not on home oxygen. States been short of breath for the last several weeks. Basically all the time. Worse with exertion. Worse the last several days. Denies home O2. Denies any leg pain or swelling. Denies any history of DVT or PE. No chest pain. No fever. No new cough. He has been wheezing. He is currently not on any steroids. He does have both a nebulizer and inhalers at home. Secondarily also states the last 3 days he has had intermittent posterior headache. He typically does not get headaches. He denies any falls or trauma. He denies any fever. No neurological symptoms. He is on Plavix. PE Risk Factors: Negative for Cancer, OCP + Smoking + > 35, Prior DVT or PE, Recent immobilization, Recent surgery and Recent travel Prior similar symptoms: Yes Recent Illness/Hospitalization: No PFSH <Dr. David Valentino MD - Last Filed: 08/26/21 07:30> PFSH Medical History Anxiety Asthma Atherosclerotic heart disease of [place] coronary artery without angina pectoris Bipolar disorder Bipolar disorder BPH (benign prostatic hyperplasia) Cannabis dependence Cervical radiculitis Cervical spondylosis Chest pain Chest pain Chest tightness COPD (chronic obstructive pulmonary disease) CPAP (continuous positive airway pressure) dependence DDD (degenerative disc disease) Dementia Depression Diabetes Dyspnea on exertion Essential (primary) hypertension Fatigue Former smoker GERD (gastroesophageal reflux disease) History of pulmonary embolism Hyperlipidemia Hypertension IBS (irritable bowel syndrome) Lung nodule < 6cm on CT Migraines Myocardial infarct MONIQUE (obstructive sleep apnea) Partial tear of right rotator cuff Peptic ulcer disease Pleurisy PVCs (premature ventricular contractions) Restless leg syndrome Schizophrenia Sleep apnea Smoking greater than 40 pack years Stage 2 moderate COPD by GOLD classification Syncope and collapse Trigger finger Wheezing Home Medications ropinirole 0.5 mg PO QHS 02/07/17 [History Last Taken 07/29/19] tamsulosin 0.4 mg PO QHS 01/30/17 [History Last Taken 07/29/19] donepezil 10 mg PO QHS 07/30/19 [History Last Taken 07/29/19] omeprazole 40 mg PO DAILY 07/30/19 [History Last Taken 07/30/19] melatonin 3 mg tablet 3 mg PO HS 09/01/20 [History Last Taken Unknown] metformin 500 mg tablet,extended release 24 hr 500 mg PO DAILY tab 09/01/20 [History Last Taken Unknown] aripiprazole 10 mg tablet 10 mg PO DAILY 11/09/20 [History Last Taken Unknown] baclofen 10 mg tablet 10 mg PO TID 11/09/20 [History Last Taken Unknown] dicyclomine 20 mg tablet 20 mg PO BID 11/09/20 [History Last Taken Unknown] icosapent ethyl 1 gram capsule 2 g PO BID 11/09/20 [History Last Taken Unknown] mirtazapine 15 mg tablet 15 mg PO DAILY 11/09/20 [History Last Taken Unknown] trazodone 100 mg tablet 50 mg PO QHS tab 11/09/20 [History Last Taken Unknown] clopidogrel 75 mg tablet 75 mg PO DAILY #90 tab 02/12/21 [Rx Last Taken Unknown] losartan 100 mg tablet 100 mg PO DAILY #30 tab 05/18/21 [Rx Last Taken Unknown] sertraline 100 mg tablet 100 mg PO DAILY tab 05/18/21 [History Last Taken Unknown] budesonide 160 mcg-glycopyr 9 mcg-formot 4.8 mcg/actuation HFA inhaler 2 inh INHALATION BID #10.7 g 07/24/21 [Rx Last Taken Unknown] lamotrigine 200 mg tablet 200 mg PO DAILY tab 07/24/21 [History Last Taken U nknown] olanzapine 10 mg tablet 10 mg PO DAILY tab 07/24/21 [History Last Taken Unknown] atorvastatin 40 mg PO QHS 08/03/21 [History Last Taken Unknown] albuterol sulfate 2.5 mg INHALATION Q8H PRN PRN #180 ml 08/20/21 [Rx Last Taken Unknown] prednisone 40 mg PO DAILY 7 Days #14 tab 08/26/21 [Rx Last Taken Unknown] Allergy/AdvReac Type Severity Reaction Status Date / Time Quinolones Allergy Unknown unknown Verified 08/26/21 06:37 aspirin Allergy Itching, Verified 08/26/21 06:37 Hives levofloxacin [From Levaquin] Allergy Hives, Verified 08/26/21 06:37 Itching Penicillins Allergy Hives, Verified 08/26/21 06:37 Itching Family History Mother CAD (coronary artery disease) Sister Diabetes Surgical History H/O cervical spine surgery H/O ventral hernia repair History of appendectomy History of appendectomy History of arthroscopy History of coronary artery stent placement (10/16/18) History of left heart catheterization (04/2016) Social History household members: none housing: house current occupational status: disabled Smoking Status: Former smoker quit date: 02/14/15 how long ago did patient quit smokin years ago second hand exposure: Yes alcohol intake: former details: Quit 9 years ago substance use type: does not use caffeine: Yes Type: coffee what type of physical activity do you participate in: none seatbelt use: always do you feel safe at home: Yes ROS <Dr. David Valentino MD - Last Filed: 08/26/21 07:30> ROS ED ROS Narrative Shortness of breath. Wheezing. Posterior headache. Review of Systems ROS Unobtainable: Denies due to encephalopathy Constitutional Constitutional ED: Denies chills or fever(s) Eyes Eyes: Denies change in vision ENT ENT ED: Denies ear pain Cardiovascular Cardiovascular: Denies chest pain or palpitations Respiratory/Chest Respiratory/Chest: Reports dyspnea; Denies cough or sputum Gastrointestinal Gastrointestinal: Denies abdominal pain, constipation, diarrhea, nausea or vomiting Genitourinary Genitourinary ED: Denies dysuria Musculoskeletal Musculoskeletal: Denies myalgias Integumentary Denies rash Neurologic Neurologic: Reports headache(s) Psychiatric Psychiatric: Denies depression Endocrine Endocrinology: Denies polyuria Hematologic/Lymphatic Hematologic/Lymphatic: Denies easy bruising Allergic/Immunologic Allergic/Immunologic ED: Denies urticaria EXAM <Dr. David Valentino MD - Last Filed: 08/26/21 07:30> Physical Exam Narrative Exam Narrative: 71-year-old male no acute distress. Vital signs stable. Afebrile. Initial blood pressure 114/65. Pulse ox 95% on room air no hypoxia. He was placed on 2 L by nursing for comfort. H EENT exam unremarkable. No signs of trauma to his head or scalp. Pupils round reactive light. No facial droop. Normal speech. Neck nontender no meningismus. Lungs patient has expiratory expiratory wheezing throughout both lung hayes. More pronounced expiratory relief. No rales nor rhonchi. Equal symmetrical. Heart regular rate and rhythm rate about 75 no murmur. Chest wall nontender. Abdomen soft nontender. Moving all 4 extremities. Calves are nontender without edema or cords. Neurologically is awake and alert. He is answering questions and following commands. No focal motor deficits. Const Vital Signs: 08/26/21 06:34 08/26/21 06:39 08/26/21 07:00 Temperature 97.6 F L Temperature Source Temporal Pulse Rate 76 72 Respiratory Rate 30 H 22 H Respiratory Effort Short of Breath Labored Respiratory Pattern Tachypnea Blood Pressure 149/65 H Blood Pressure Mean 93 Pulse Ox 95 Oxygen Delivery Method Room Air Nasal Cannula Oxygen Flow Rate (L/min) 2 08/26/21 07:07 Temperature Temperature Source Pulse Rate Respiratory Rate Respiratory Effort Respiratory Pattern Blood Pressure Blood Pressure Mean Pulse Ox 97 Oxygen Delivery Method Nasal Cannula Oxygen Flow Rate (L/min) 1 Positive well nourished and well developed; Negative for obese, cachectic, contractures or unkempt General Appearance ED: well developed and NAD; Negative for unkempt, cachectic, contractures or pallor Nutritional Appearance: Negative for cachectic or obese HEENT atraumatic; Negative for trauma or tenderness Eyes PERRL and EOMs intact bilaterally Neck no lymphadenopathy, supple, no meningeal signs and no JVD General: Negative for tenderness Resp normal respiratory effort and No clear to auscultation bilaterally Auscultation: wheezes; Negative for rales, rhonchi or diminished lung sounds Cardio regular rate, regular rhythm, S1 normal heart sound, S2 normal heart sound and no murmurs GI non-tender, non-distended and no masses Auscultation: normoactive bowel sounds; Negative for hyperactive bowel sounds or hypoactive bowel sounds Palpation: soft; Negative for tender, guarding or rebound tenderness present Back/Spine no CVA tenderness and normal to inspection General Back: Negative for CVA tenderness or tenderness Extremity normal to inspection General Extremety ED: Negative for edema or tenderness General Extremity: Negative for edema Neuro oriented x3 Sensorium / Orientation: alert, oriented to person, oriented to place and oriented to time; Negative for orientation impaired, confused, lethargic or stuporous Psych mental status grossly normal Appearance: Negative for unkempt Mood & Affect: Negative for depressed or tearful Thought Process: normal thought process Skin no wounds General Skin Exam: Negative for jaundice or pallor Lesions: no lesions Rashes: no rashes <Dr. Ish Boateng MD - Last Filed: 08/26/21 10:15> Physical Exam Const Vital Signs: 08/26/21 06:34 08/26/21 06:39 08/26/21 07:00 Temperature 97.6 F L Temperature Source Temporal Pulse Rate 76 72 Respiratory Rate 30 H 22 H Respiratory Effort Short of Breath Labored Respiratory Pattern Tachypnea Blood Pressure 149/65 H Blood Pressure Mean 93 Pulse Ox 95 Oxygen Delivery Method Room Air Nasal Cannula Oxygen Flow Rate (L/min) 2 08/26/21 07:07 Temperature Temperature Source Pulse Rate Respiratory Rate Respiratory Effort Respiratory Pattern Blood Pressure Blood Pressure Mean Pulse Ox 97 Oxygen Delivery Method Nasal Cannula Oxygen Flow Rate (L/min) 1 MDM <Dr. David Valentino MD - Last Filed: 08/26/21 07:30> [facility] Narrative Medical decision making narrative: 71-year-old male with shortness of breath last several weeks. Worsening last several days. Clinically sounds like exacerbation of COPD. He has a wheezing throughout. He is not on home O2. He will be treated with aerosols both albuterol and DuoNeb and oral prednisone. He will undergo work-up including chest x-ray and labs and EKG. Complaining of a headache for last several days. He denies any falls or trauma. He is on Plavix. He typically does not get headaches. Obtain a CT of his brain. His neurologic exam is normal. Rate is a.m. patient is resting comfortably in the room. Be turned over to the morning physician. So far his labs and x-ray EKG are unremarkable. All with chronic changes. I believe this to be secondary to COPD. He will be discharged to home on a week of prednisone 40 mg a day. He already has inhalers and nebulizer at home. Outpatient follow-up with his primary care physician. The morning physician will check his formal CT read of his brain and re-evaluate the patient. Lab Data Attestation: I reviewed the patient's lab results. Lab results narrative: CBC shows a normal white count of 6.7. H&H 11.7 and 37.5 which is consistent with his baseline anemia. EKG is in normal sinus rhythm. Chemistries show a gap of 4. Normal BUN and creatinine. Glucose 109. Troponin normal at 8. Chest x-ray portable shows chronic changes no acute process. Labs: Laboratory Results - last 24 hr 08/26/21 08/26/21 06:55 06:55 WBC 6.7 RBC 4.53 L Hgb 11.7 L Hct 37.5 L MCV 82.8 MCH 25.8 L MCHC 31.2 L RDW Std Deviation 47.1 H RDW Coeff of Tad 15.6 H Plt Count 234 MPV 9.9 Immature Gran % (Auto) 0.400 Neut % (Auto) 52.4 Lymph % (Auto) 29.4 [place] % (Auto) 10.3 H Eos % (Auto) 6.9 H Baso % (Auto) 0.6 Absolute Neuts (auto) 3.5 Absolute Lymphs (auto) 1.97 Nucleated RBC % 0 Sodium 143 Potassium 3.8 Chloride 111 H Carbon Dioxide 28.0 Anion Gap 4 L BUN 11 Creatinine 1.13 Estim Creat Clear Calc 63.90 Est GFR (MDRD) Af Amer 82 Est GFR (MDRD) Non-Af 68 BUN/Creatinine Ratio 9.7 L Glucose 109 H Calcium 8.7 Troponin I High Sens 8 Radiography Chest X-Ray - ED: 1 View, Read by ED Physician, Heart, Lungs, Mediastinum, Bony Structures, No Acute Disease and Chronic Changes Diagnostic Testing: Clinical Impression(s) from Imaging Studies Chest X-Ray 08/26/21 06:45 IMPRESSION: No acute cardiopulmonary disease. Electronically Signed: Antwon Peraza MD at 7:51 EDT , Brain CT 08/26/21 06:47 IMPRESSION: 1. Chronic deep white matter changes and microvascular disease. 2. No acute intracranial process. 3. Sinus disease. Electronically Signed: Torres Ruiz MD at 8:34 EDT , Chest x-ray, portable, single view interpreted by myself shows chronic changes consistent with COPD. No acute process. No pneumonia. No infiltrate. No fluid. Rhythm Strip Rhythm Strip: Sinus Rhythm Rate: 66 Ectopy: None EKG Initial EKG: Attestation: I personally reviewed and interpreted this EKG as follows: Interpretation: Sinus Rhythm and No Acute Injury Pattern Comments: Normal sinus rhythm rate of 66 no acute signs of NH or ischemia. <Dr. Ish Boateng MD - Last Filed: 08/26/21 10:15> [facility] Narrative Medical decision making narrative: Patient was reassessed at 0923. He states he is still wheezing. Is not abnormal for him to wheeze. However, he states he is wheezing more than normal. He does have significant wheezing. He states he is not normally on oxygen. He is presently on 2 to 3 L by nasal cannula. His vital signs have improved markedly. Oxygen has been discontinued. If his pulse ox is above 90% nurses to ambulate patient in 10 to 15 minutes. If he desaturates and he does not have oxygen at home he will require admission to the hospital. Patient's saturation off of O2 was 94%. His O2 sat did not go below 93 with walking. Plan is to discharge to home. Lab Data Attestation: I reviewed the patient's lab results. Lab results narrative: Laboratory studies are baseline. Labs: Laboratory Results - last 24 hr 08/26/21 08/26/21 06:55 06:55 WBC 6.7 RBC 4.53 L Hgb 11.7 L Hct 37.5 L MCV 82.8 MCH 25.8 L MCHC 31.2 L RDW Std Deviation 47.1 H RDW Coeff of Tad 15.6 H Plt Count 234 MPV 9.9 Immature Gran % (Auto) 0.400 Neut % (Auto) 52.4 Lymph % (Auto) 29.4 [place] % (Auto) 10.3 H Eos % (Auto) 6.9 H Baso % (Auto) 0.6 Absolute Neuts (auto) 3.5 Absolute Lymphs (auto) 1.97 Nucleated RBC % 0 Sodium 143 Potassium 3.8 Chloride 111 H Carbon Dioxide 28.0 Anion Gap 4 L BUN 11 Creatinine 1.13 Estim Creat Clear Calc 63.90 Est GFR (MDRD) Af Amer 82 Est GFR (MDRD) Non-Af 68 BUN/Creatinine Ratio 9.7 L Glucose 109 H Calcium 8.7 Troponin I High Sens 8 Radiography Chest X-Ray - ED: 1 View and Read by ED Physician (Chest x-ray is independently reviewed and interpreted by me as negative for any acute process. There is minimal chronic changes. Cardiac silhouette size unremarkable. Perihilar regions unremarkable. Osseous structures are unremarkable.) Diagnostic Testing: Clinical Impression(s) from Imaging Studies Chest X-Ray 08/26/21 06:45 IMPRESSION: No acute cardiopulmonary disease. Electronically Signed: Antwon Peraza MD at 7:51 EDT , Brain CT 08/26/21 06:47 IMPRESSION: 1. Chronic deep white matter changes and microvascular disease. 2. No acute intracranial process. 3. Sinus disease. Electronically Signed: Torres Ruiz MD at 8:34 EDT , CT of the head without contrast was reviewed by me at 0803. There is no evidence of fracture, subdural, epidural, subarachnoid hemorrhage or intraparenchymal bleed. There is no evidence of sinusitis either. Awaiting formal read by radiologist. EKG Initial EKG: Attestation: I personally reviewed and interpreted this EKG as follows: Interpretation: Sinus Rhythm (Ventricular rate is 66. MI interval is 164 ms. QS duration 86 ms. QT duration 400 ms. [place] is normal. There is decreased anterior force noted. There is no acute ischemic changes noted.) Discharge Plan Triage Chief Complaint: Shortness of Breath ED Provider: Valentino,David Dx/Rx/DC Orders Clinical Impression: SOB (shortness of breath), Asthma, COPD exacerbation, History of coronary artery disease, Headache Instructions: Asthma and COPD Prescriptions: New prednisone 20 mg tablet 40 mg PO DAILY 7 Days Qty: 14 RF: 0 No Action melatonin 3 mg tablet 3 mg PO HS RF: 0 metformin 500 mg tablet extended release 24 hr 500 mg PO DAILY RF: 0 trazodone 100 mg tablet 50 mg PO QHS RF: 0 dicyclomine 20 mg tablet 20 mg PO BID RF: 0 mirtazapine 15 mg tablet 15 mg PO DAILY RF: 0 aripiprazole 10 mg tablet 10 mg PO DAILY RF: 0 icosapent ethyl [Vascepa] 1 gram capsule 2 g PO BID RF: 0 baclofen 10 mg tablet 10 mg PO TID RF: 0 sertraline 100 mg tablet 100 mg PO DAILY RF: 0 olanzapine 10 mg tablet 10 mg PO DAILY RF: 0 lamotrigine [Lamictal] 200 mg tablet 200 mg PO DAILY RF: 0 Breztri Aerosphere 160-9-4.8 mcg/actuation HFA aerosol inhaler 2 inh inhalation BID Qty: 10.7 RF: 5 ropinirole 0.5 MG tablet 0.5 mg PO QHS RF: 0 tamsulosin 0.4 MG capsule,extended release 24hr 0.4 mg PO QHS RF: 0 donepezil 10 MG tablet 10 mg PO QHS RF: 0 omeprazole 40 MG capsule,delayed release(DR/EC) 40 mg PO DAILY RF: 0 atorvastatin 40 mg tablet 40 mg PO QHS RF: 0 clopidogrel 75 mg tablet 75 mg PO DAILY Qty: 90 RF: 3 losartan 100 mg tablet 100 mg PO DAILY Qty: 30 RF: 11 albuterol sulfate 2.5 mg /3 mL (0.083 %) solution for nebulization 2.5 mg INHALATION Q8H PRN PRN (Reason: shortness of breath or wheezing) Qty: 180 RF: 6 Primary Care Provider: Ani Andersen Referrals: Ani Andersen DO [Primary Care Provider] - 3-5 Days Activity Restrictions/Additional Instructions: Prednisone daily for your COPD. Use your nebulizer inhalers at home as prescribed. Follow-up with your doctor if not improving. Tylenol for her headache. Return if worse. Disposition Disposition: Home, Self Care
--- NOTE | 2021-08-26 06:47 | CT_ITS ---
STUDY: CT BRAIN WITHOUT CONTRAST REASON FOR EXAM: Male, 71 years old. Headache. RADIATION DOSAGE (If Supplied By Facility): CTDIvol = ( 47.06 ) mGy, DLP = ( 890.33 ) mGycm TECHNIQUE: Transaxial CT imaging of the brain was performed without administration of intravenous contrast material. Individualized dose optimization techniques were used for this CT. COMPARISON: 03/13/2020 FINDINGS: Normal soft tissue structures. Normal calvarium. Normal size ventricles and extra-axial spaces for the patient''s age. There are areas of decreased attenuation within the white matter tracts of the supratentorial brain, consistent with microvascular disease changes. Normal basal ganglia and thalami. Normal brainstem. Normal cerebellum. There is no intracranial hemorrhage. There are no findings of an acute ischemic infarction. Mild atherosclerotic calcifications of the cavernous internal carotid arteries. Mild mucosal thickening of the maxillary sinuses possibly retention cyst right maxillary sinus. CT/Brain/Head without Contrast IMPRESSION: 1. Chronic deep white matter changes and microvascular disease. 2. No acute intracranial process. 3. Sinus disease. Electronically Signed: Torres Ruiz MD at 8:34 EDT ,
[2021-08-26] MEDS: Ipratropium/Albuterol Sulfate 3 ML AMPUL.NEB INHALATION (06:59)
[2021-08-26 07:00] VITALS: PULSE 72; RESP 22
[2021-08-26 07:02] LABS: Absolute Lymphocyte Count 1.97 X10^3/uL (0.83-4.51); Absolute Neutrophil Count 3.5 X10^3/uL (2.0-7.7); Basophil# 0.04 X10^3/uL; Basophil% 0.6 % (0-1); Eosinophil# 0.46 X10^3/uL; Eosinophils% 6.9 % (0-5); Hematocrit 37.5 % (40-54); Hemoglobin 11.7 g/dL (13.0-16.5); Lymphocyte # 1.97 X10^3/ul (0.83-4.51); Lymphocyte % 29.4 % (19-41); Mean Corp Hgb Conc 31.2 g/dL (32-36); Mean Corpuscular Hgb 25.8 pg (27.0-32.0); Mean Corpuscular Volume 82.8 fL (80-94); Mean Platelet Vol. 9.9 fl (6.2-12.0); Monocyte# 0.69 X10^3/uL; Monocyte% 10.3 % (0-10); NRBC Flagged by Analyzer 0 % (0-5); Neutrophil # 3.52 X10^3/uL (2.7-7.7); Neutrophil % 52.4 % (47-70); Platelet Count 234 K/mm3 (150-450); RBC Distribution Width CV 15.6 % (11.6-14.6); RBC Distribution Width SD 47.1 fl (35.1-43.9); Red Blood Count 4.53 M/mm3 (4.6-6.2); White Blood Count 6.7 K/mm3 (4.4-11.0)
[2021-08-26 07:07] VITALS: O2SAT 97
[2021-08-26] MEDS: predniSONE 20 MG Tablet 60 MG PO (07:08)
[2021-08-26 07:20] LABS: Anion Gap 4 (5-15); BUN 11 mg/dL (7-18); BUN/Creat Ratio 9.7 RATIO (10-20); Calcium,Total 8.7 mg/dL (8.5-10.1); Chloride 111 mmol/L (98-107); Creatinine, Serum 1.13 mg/dL (0.70-1.30); EST Glomerular Filtration Rate 68 mL/min (>60); Est Glom Filt Rate - Afr Amer 82 mL/min (>60); Glucose 109 mg/dL (74-106); Potassium 3.8 mmol/L (3.5-5.1); Sodium Level 143 mmol/L (136-145); Troponin-I HS (w/2H Reflex) 8 pg/mL (3.0-78.0)
[2021-08-26 08:59] LABS: Reflex Troponin-HS? (from REC) Y
[2021-08-26 09:41] VITALS: O2SAT 95
[2021-08-26 10:27] VITALS: BP 143/78; PULSE 73; RESP 19; O2SAT 94
== END 2021-08-26 10:31 | disposition home or self-care (01) ==
PROVIDERS: Emergency Provider Emergency Medicine; PCP Internal Medicine; Visit Provider Emergency Medicine
DX: R06.02 Shortness of breath (principal); J44.1 Chronic obstructive pulmonary disease with (acute) exacerbation; E11.9 Type 2 diabetes mellitus without complications; R51.9 Headache, unspecified; I10 Essential (primary) hypertension; I25.10 Atherosclerotic heart disease of native coronary artery without angina pectoris; E78.5 Hyperlipidemia, unspecified; I25.2 Old myocardial infarction; G47.30 Sleep apnea, unspecified; F41.9 Anxiety disorder, unspecified; F32.A Depression, unspecified; N40.0 Benign prostatic hyperplasia without lower urinary tract symptoms; K21.9 Gastro-esophageal reflux disease without esophagitis; Z87.891 Personal history of nicotine dependence; Z95.5 Presence of coronary angioplasty implant and graft; Z79.899 Other long term (current) drug therapy; Z79.84 Long term (current) use of oral hypoglycemic drugs; Z79.01 Long term (current) use of anticoagulants; Z86.711 Personal history of pulmonary embolism
CPT/HCPCS: 70450; 71045; 80048; 84484; 85025; 93005; 94640; 99284; A4216

== ENCOUNTER → 2021-09-03 | Outpatient (CLI) | payer MEDICARE, MEDICAID, SELFPAY ==
[2018-10-16 10:45] VITALS: BMI 21.8
[2021-09-03 08:06] LABS: AST(SGOT) 10 U/L (15-37); Alanine Aminotransfer ALT/SGPT 30 U/L (16-61); Albumin, Serum 3.6 g/dL (3.2-5.0); Alkaline Phosphatase 113 U/L (45-117); Bilirubin, Direct 0.05 mg/dL (0.00-0.30); Cholesterol 145 mg/dL (200); High Density Lipoprotein 39 mg/dL; Protein, Total 6.6 g/dL (6.4-8.2); Triglycerides 572 mg/dL
--- NOTE | 2021-09-03 18:34 | STRESSREP ---
Stress Test Report Pharmacologic myocardial perfusion stress test. 71-year-old man with a history of chest pain. Stress protocol: Resting EKG demonstrates normal sinus rhythm with a rate of 66 bpm normal intervals are noted resting blood pressure is 132/78 mmHg. 0.4 mg of regadenoson was infused per usual protocol followed by rapid intravenous saline flush injection continuous EKG monitoring was performed. The maximum heart rate attained was 93 bpm which was 63% of max impact at heart rate the maximum workload was 1 metabolic equivalent. At rest there were no ST or T wave changes noted to suggest abnormal flow reserve and at peak infusion nonspecific ST changes were noted but did not meet the criteria for ischemia. No clinical angina was noted. Myocardial perfusion protocol. 11.5 mCi of technetium 99m sestamibi was injected at rest. 0.4 mg of regadenoson was infused per usual protocol. At peak infusion 33.3 mCi of technetium 99m sestamibi was injected stress images were obtained stress and rest images were reconstructed in comparing the short axis vertical long and horizontal long axis. Perfusion SPECT analysis: Review of the stress images demonstrate normal uptake of tracer noted in all areas of the myocardium. The resting images similarly demonstrate normal uptake of tracer noted in all areas of the myocardium. No areas of reversibility are noted to suggest ischemia and no previous infarct is noted. Gated images could not be obtained. Conclusion: Pharmacologic myocardial perfusion stress test. Preserved ejection fraction.
== END | disposition home or self-care (01) ==
LOC: CVS 06:47
PROVIDERS: PCP Internal Medicine; Referring Provider Nurse Practitioner Family; Visit Provider Nurse Practitioner Family
DX: E78.00 Pure hypercholesterolemia, unspecified (principal); I25.10 Atherosclerotic heart disease of native coronary artery without angina pectoris; R06.02 Shortness of breath; I10 Essential (primary) hypertension; E78.5 Hyperlipidemia, unspecified; Z95.5 Presence of coronary angioplasty implant and graft
CPT/HCPCS: 36415; 78452; 80061; 80076; 93017; A9500; A4216; J2785

== ENCOUNTER → 2021-09-13 | Outpatient (CLI) | payer MEDICARE, MEDICAID, SELFPAY ==
[2018-10-16 10:45] VITALS: BMI 21.8
--- NOTE | 2021-09-13 07:32 | MRI_ITS ---
STUDY: MRI LEFT KNEE REASON FOR EXAM: Male, 71 years old. LEFT MEDIAL KNEE PAIN TECHNIQUE: Standardized fat and water weighted pulse sequences were obtained in all 3 orthogonal planes. COMPARISON: Left knee x-ray dated May 14, 2021 FINDINGS: Moderate size horizontal undersurface tearing is present in the middle one third aspect of the posterior horn of medial meniscus. A small oblique undersurface tear is also present at the free edge of the body of the medial meniscus. There is diffuse, greater than 50% thickness articular cartilage loss of the medial femorotibial compartment. Normal medial femoral condyle and tibial plateau. Normal medial collateral ligamentous complex (MCL). Normal distal semimembranosus, gracilis and semitendinosus tendons. Normal lateral meniscus. There is diffuse, less than 50% thickness articular cartilage loss of the lateral femorotibial compartment. Normal lateral femoral condyle and tibial plateau. Normal proximal tibiofibular articulation. Normal lateral collateral (fibular) ligament. Normal popliteus tendon. Normal biceps femoris tendon. Normal anterior cruciate ligament (ACL). Normal posterior cruciate ligament (PCL). Normal congruent patellofemoral articulation. Normal hyaline cartilage of the patellofemoral compartment. Normal medial and lateral patellar retinaculum. Normal quadriceps tendon. Normal patellar tendon. Normal Hoffa''s fat pad. A small joint effusion is present. Mild anterior subcutaneous edema is present. The otherwise visualized osseous structures are unremarkable. MRI/Lower Ext Joint Only (Routine) IMPRESSION: 1. Moderate size horizontal undersurface tearing is present in the middle one third aspect of the posterior horn of medial meniscus. A small oblique undersurface tear is also present at the free edge of the body of the medial meniscus. Electronically Signed: Alex Rhodes MD at 15:59 EDT ,
== END | disposition home or self-care (01) ==
LOC: MRI 07:12
PROVIDERS: PCP Internal Medicine; Visit Provider Internal Medicine
DX: M25.562 Pain in left knee (principal)
CPT/HCPCS: 73721

== ENCOUNTER 2021-09-15 01:59 | Emergency (ER) | payer MEDICARE, MEDICAID, SELFPAY ==
[2018-10-16 10:45] VITALS: BMI 21.8
[2021-09-15 02:00] VITALS: BP 162/90; PULSE 88; RESP 31; TEMP 36.3; O2SAT 93; BMI 25.4
[2021-09-15 02:10] VITALS: O2SAT 93
--- NOTE | 2021-09-15 02:17 | EKG12_ITS ---
Test Reason : SOB Blood Pressure : / mmHG Vent. Rate : 078 BPM Atrial Rate : 078 BPM P-R Int : 166 ms QRS Dur : 068 ms QT Int : 390 ms P-R-T Axes : 067 044 060 degrees QTc Int : 444 ms Normal sinus rhythm Septal infarct , age undetermined Abnormal ECG Confirmed by VALENTIN STEVENSON, LATISHA ([id number]), primer expeditor and drier GRACIELA BARBOZA ([id number]) on 09/18/2021 10:07:00 AM Referred By: YANELI Confirmed By:LATISHA HANSON MD
--- NOTE | 2021-09-15 02:17 | RAD_ITS ---
STUDY: X-RAY CHEST REASON FOR EXAM: Male, 71 years old. dyspnea TECHNIQUE: PA and lateral. COMPARISON: 08/26/2021. FINDINGS: LUNGS: No consolidation. No pneumothorax. MEDIASTINUM: Unremarkable. CARDIAC SILHOUETTE: Not enlarged. BONES AND SOFT TISSUES: Surgical hardware in the cervical spine. Degenerative changes in the dorsal spine. RAD/Chest PA and Lateral IMPRESSION: No evidence of active intrathoracic disease. Electronically Signed: Jovanna Bess MD at 2:56 EDT ,
--- NOTE | 2021-09-15 02:18 | EDS_ITS ---
HPI History of Present Illness Chief Complaint: Shortness of Breath Narrative Narrative: Patient is a 71-year-old male with past medical history of hypertension hyperlipidemia COPD and sleep apnea. He states he quit smoking about 11 years ago and states he does not have need for supplemental oxygen. He reports he has been taking his medications as directed but despite this he has been having increased bouts of shortness of breath and wheezing. 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 He did a Z-Jose for 5 days and states this did help some symptoms. He denies any known sick contacts and states he supposed be wearing CPAP at night because of his sleep apnea but does not do so because of restless leg syndrome. He states tonight he could not sleep and has woken up multiple times because of the shortness of breath sensation and therefore comes in for evaluation. [facility] Medical History Anxiety Asthma Atherosclerotic heart disease of [place] coronary artery without angina pectoris Bipolar disorder Bipolar disorder BPH (benign prostatic hyperplasia) Cannabis dependence Cervical radiculitis Cervical spondylosis Chest pain Chest pain Chest tightness COPD (chronic obstructive pulmonary disease) CPAP (continuous positive airway pressure) dependence DDD (degenerative disc disease) Dementia Depression Diabetes Dyspnea on exertion Essential (primary) hypertension Fatigue Former smoker GERD (gastroesophageal reflux disease) History of pulmonary embolism Hyperlipidemia Hypertension IBS (irritable bowel syndrome) Lung nodule < 6cm on CT Migraines Myocardial infarct MONIQUE (obstructive sleep apnea) Partial tear of right rotator cuff Peptic ulcer disease Pleurisy PVCs (premature ventricular contractions) Restless leg syndrome Schizophrenia Sleep apnea Smoking greater than 40 pack years Stage 2 moderate COPD by GOLD classification Syncope and collapse Trigger finger Wheezing Home Medications ropinirole 0.5 mg tablet 0.5 mg PO QHS LEGS 04/23/16 [History Last Taken 07/29/19] tamsulosin 0.4 mg capsule 0.4 mg PO QHS PROSTATE 01/30/17 [History Last Taken 07/29/19] donepezil 10 mg tablet 10 mg PO QHS MEMORY 07/30/19 [History Last Taken 07/29/19] omeprazole 40 mg capsule,delayed release 40 mg PO DAILY GERD 07/30/19 [History Last Taken 07/30/19] melatonin 3 mg tablet 3 mg PO HS 09/01/20 [History Last Taken Unknown] metformin 500 mg tablet,extended release 24 hr 500 mg PO DAILY 09/01/20 [History Last Taken Unknown] aripiprazole 10 mg tablet 10 mg PO DAILY 11/09/20 [History Last Taken Unknown] baclofen 10 mg tablet 10 mg PO TID 11/09/20 [History Last Taken Unknown] dicyclomine 20 mg tablet 20 mg PO BID 11/09/20 [History Last Taken Unknown] icosapent ethyl 1 gram capsule (Vascepa) 2 g PO BID 11/09/20 [History Last Taken Unknown] mirtazapine 15 mg tablet 15 mg PO DAILY 11/09/20 [History Last Taken Unknown] trazodone 100 mg tablet 50 mg PO QHS 11/09/20 [History Last Taken Unknown] clopidogrel 75 mg tablet 75 mg PO DAILY #90 tabs 02/12/21 [Rx Last Taken Unknown] losartan 100 mg tablet 100 mg PO DAILY #30 tabs 05/18/21 [Rx Last Taken Unknown] sertraline 100 mg tablet 100 mg PO DAILY 05/18/21 [History Last Taken Unknown] budesonide 160 mcg-glycopyr 9 mcg-formot 4.8 mcg/actuation HFA inhaler (Breztri Aerosphere) 2 inh inhalation BID #10.7 grams 07/24/21 [Rx Last Taken Unknown] lamotrigine 200 mg tablet (Lamictal) 200 mg PO DAILY 07/24/21 [History Last Taken Unknown] olanzapine 10 mg tablet 10 mg PO DAILY 07/24/21 [History Last Taken Unknown] atorvastatin 40 mg tablet 40 mg PO QHS 08/03/21 [History Last Taken Unknown] albuterol sulfate 2.5 mg (3 mL) inhalation Q8H PRN PRN shortness of breath or wheezing #180 mL 08/20/21 [Rx Last Taken Unknown] prednisone 20 mg tablet 40 mg PO DAILY 7 days #14 tabs 08/26/21 [Rx Last Taken Unknown] azithromycin 250 mg tablet See Rx Instructions PO .COMPLEX #6 tabs 09/04/21 [Rx Last Taken Unknown] benzonatate 200 mg capsule 200 mg PO TID PRN cough #90 caps 09/04/21 [Rx Last Taken Unknown] fenofibrate 54 mg tablet 54 mg PO DAILY #30 tabs 09/04/21 [Rx Last Taken Unknown] Allergy/AdvReac Type Severity Reaction Status Date / Time Quinolones Allergy Unknown unknown Verified 09/15/21 02:00 aspirin Allergy Itching, Verified 09/15/21 02:00 Hives levofloxacin [From Levaquin] Allergy Hives, Verified 09/15/21 02:00 Itching Penicillins Allergy Hives, Verified 09/15/21 02:00 Itching Family History Mother CAD (coronary artery disease) Sister Diabetes Surgical History H/O cervical spine surgery H/O ventral hernia repair History of appendectomy History of appendectomy History of arthroscopy History of coronary artery stent placement (10/16/18) History of left heart catheterization (04/2016) Social History household members: none housing: house current occupational status: disabled Smoking Status: Former smoker quit date: 02/14/15 how long ago did patient quit smokin years ago second hand exposure: Yes alcohol intake: former details: Quit 9 years ago substance use type: does not use caffeine: Yes Type: coffee what type of physical activity do you participate in: none seatbelt use: always do you feel safe at home: Yes ROS ROS ED Constitutional Constitutional ED: Denies chills or fever(s) ENT ENT ED: Denies sore throat Cardiovascular Cardiovascular: Denies chest pain Respiratory/Chest Respiratory/Chest: Reports cough and dyspnea Gastrointestinal Gastrointestinal: Denies abdominal pain, diarrhea, nausea or vomiting Genitourinary Genitourinary ED: Denies dysuria Musculoskeletal Musculoskeletal: Denies myalgias Integumentary Denies rash Neurologic Neurologic: Denies headache(s) Psychiatric Psychiatric: Reports anxiety Hematologic/Lymphatic Hematologic/Lymphatic: Denies easy bleeding or easy bruising EXAM Physical Exam Const Vital Signs: 09/15/21 02:00 09/15/21 02:10 09/15/21 02:23 Temperature 97.3 F L Temperature Source Temporal Pulse Rate 88 79 Respiratory Rate 31 H 26 H Respiratory Effort Labored Accessory Muscle Use Respiratory Depth Deep Respiratory Pattern Tachypnea Tachypnea Blood Pressure 162/90 H Blood Pressure Mean 114 Pulse Ox 93 Oxygen Delivery Method Room Air Room Air Positive well nourished and well developed Constitutional Narrative: Patient is in mild respiratory distress with tachypnea and accessory muscle use General Appearance ED: well developed HEENT Reports moist mucous membranes HEENT Narrative: No tongue or lip swelling no oral lesions no airway edema or compromise Eyes PERRL and EOMs intact bilaterally Neck supple and no JVD Neck Narrative: No crepitance palpated Chest Wall palpation of chest normal Resp Resp Narrative: Patient is in mild respiratory distress with tachypnea and accessory muscle use. Patient has inspiratory and expiratory wheezes bilaterally throughout without rales or rhonchi noted Cardio regular rate and regular rhythm Rate: other Other Details: Radial pulses are plus 2 out of 4 bilaterally are equal and symmetric Extremity normal to inspection Extremity Narrative: No asymmetric edema no pitting edema negative Homans' sign bilaterally Neuro oriented x3 and CN's II-XII intact bilaterally Sensorium / Orientation: alert Psych Psych Narrative: Patient has a nervous/anxious affect Skin no rashes or lesions noted MDM MDM MDM Narrative Medical decision making narrative: Patient presented to the ER with mild increased work of breathing as he had tachypnea and accessory muscle use. Despite this he was satting 93% on room air. His past medical history is significant for COPD as well as sleep apnea and paroxysmal nocturnal dyspnea. As he does not wear his CPAP because of restless leg syndrome I do feel this could be a cause of his increased shortness of breath this evening. Basic blood work was obtained which shows no acute anemia leukocytosis or electrolyte derangement. He had no signs of congestive heart failure on exam and his blood test correlates with this. His EKG is also sinus rhythm without ischemic change. Chest x-ray reveals no acute lung pathology. Patient was given IV steroids IV Ativan and a DuoNeb breathing treatment. On reevaluation his breath sounds have improved and his work of breathing resolved. I do feel this time that a component of his shortness of breath was anxiety related. However as he is not requiring supplemental oxygen does not have signs of active cardiac damage or acute anemia I do not feel there is need for placement in the hospital and patient can be discharged home. Lab Data Attestation: I reviewed the patient's lab results. Labs: Laboratory Results - last 24 hr 09/15/21 09/15/21 09/15/21 02:24 02:24 02:24 WBC 8.1 RBC 4.82 Hgb 12.4 L Hct 40.5 MCV 84.0 MCH 25.7 L MCHC 30.6 L RDW Std Deviation 50.4 H RDW Coeff of Tad 16.3 H Plt Count 272 MPV 10.1 Immature Gran % (Auto) 0.400 Neut % (Auto) 56.0 Lymph % (Auto) 27.1 [place] % (Auto) 7.5 Eos % (Auto) 8.5 H Baso % (Auto) 0.5 Absolute Neuts (auto) 4.6 Absolute Lymphs (auto) 2.20 Nucleated RBC % 0 Sodium 144 Potassium 3.7 Chloride 111 H Carbon Dioxide 27.0 Anion Gap 6 BUN 11 Creatinine 1.28 Estim Creat Clear Calc 56.41 Est GFR (MDRD) Af Amer 71 Est GFR (MDRD) Non-Af 59 L BUN/Creatinine Ratio 8.6 L Glucose 103 Calcium 9.0 Magnesium 1.8 B-Natriuretic Peptide 16.3 Radiography Diagnostic Testing: Clinical Impression(s) from Imaging Studies Chest X-Ray 09/15/21 02:17 IMPRESSION: No evidence of active intrathoracic disease. Electronically Signed: Jovanna Bess MD at 2:56 EDT , 2 view chest x-ray as interpreted by the emergency medicine physician reveals hyperinflated lungs consistent with COPD but no pleural effusion pneumothorax or infiltrate Discharge Plan Triage Chief Complaint: Shortness of Breath ED Provider: Jesse Pike Dx/Rx/DC Orders Clinical Impression: Acute exacerbation of chronic obstructive pulmonary disease, Anxiety Instructions: COPD: Wheezing and Chest Tightness, ED Anxiety Reaction Prescriptions: No Action melatonin 3 mg tablet 3 mg PO HS metformin 500 mg tablet extended release 24 hr 500 mg PO DAILY trazodone 100 mg tablet 50 mg PO QHS dicyclomine 20 mg tablet 20 mg PO BID mirtazapine 15 mg tablet 15 mg PO DAILY aripiprazole 10 mg tablet 10 mg PO DAILY icosapent ethyl [Vascepa] 1 gram capsule 2 g PO BID baclofen 10 mg tablet 10 mg PO TID sertraline 100 mg tablet 100 mg PO DAILY olanzapine 10 mg tablet 10 mg PO DAILY lamotrigine [Lamictal] 200 mg tablet 200 mg PO DAILY Breztri Aerosphere 160-9-4.8 mcg/actuation HFA aerosol inhaler 2 inh inhalation BID Qty: 10.7 5RF azithromycin 250 mg tablet See Rx Instructions PO .COMPLEX Qty: 6 0RF Rx Instructions: take 500 mg today (day 1), then 250 mg for 4 days (days 2-5) PO benzonatate 200 mg capsule 200 mg PO TID PRN (Reason: cough) Qty: 90 0RF ropinirole 0.5 MG tablet 0.5 mg PO QHS Label Comments: restless legs tamsulosin 0.4 MG capsule,extended release 24hr 0.4 mg PO QHS donepezil 10 MG tablet 10 mg PO QHS omeprazole 40 MG capsule,delayed release(DR/EC) 40 mg PO DAILY atorvastatin 40 mg tablet 40 mg PO QHS prednisone 20 mg tablet 40 mg PO DAILY 7 Days Qty: 14 0RF clopidogrel 75 mg tablet 75 mg PO DAILY Qty: 90 3RF losartan 100 mg tablet 100 mg PO DAILY Qty: 30 11RF albuterol sulfate 2.5 mg /3 mL (0.083 %) solution for nebulization 2.5 mg INHALATION Q8H PRN PRN (Reason: shortness of breath or wheezing) Qty: 180 6RF fenofibrate 54 mg tablet 54 mg PO DAILY Qty: 30 11RF Primary Care Provider: Ani Andersen Referrals: Ani Andersen DO [Primary Care Provider] - Disposition Disposition: Home, Self Care
[2021-09-15 02:23] VITALS: PULSE 79; RESP 26
[2021-09-15] MEDS: Ipratropium/Albuterol Sulfate 3 ML AMPUL.NEB INHALATION (02:23)
[2021-09-15] MEDS: MethylPREDNISolone 125 MG/2 ML Vial IV (02:28)
[2021-09-15] MEDS: LORazepam 2 MG/ML Syringe 1 MG IV (02:28)
[2021-09-15 02:29] LABS: Absolute Neutrophil Count 4.6 X10^3/uL (2.0-7.7); Basophil# 0.04 X10^3/uL; Basophil% 0.5 % (0-1); Eosinophil# 0.69 X10^3/uL; Eosinophils% 8.5 % (0-5); Hematocrit 40.5 % (40-54); Hemoglobin 12.4 g/dL (13.0-16.5); Lymphocyte % 27.1 % (19-41); Mean Corp Hgb Conc 30.6 g/dL (32-36); Mean Corpuscular Hgb 25.7 pg (27.0-32.0); Mean Platelet Vol. 10.1 fl (6.2-12.0); Monocyte# 0.61 X10^3/uL; Monocyte% 7.5 % (0-10); NRBC Flagged by Analyzer 0 % (0-5); Neutrophil # 4.56 X10^3/uL (2.7-7.7); Platelet Count 272 K/mm3 (150-450); RBC Distribution Width CV 16.3 % (11.6-14.6); RBC Distribution Width SD 50.4 fl (35.1-43.9); Red Blood Count 4.82 M/mm3 (4.6-6.2); White Blood Count 8.1 K/mm3 (4.4-11.0)
[2021-09-15 02:50] LABS: Anion Gap 6 (5-15); BUN 11 mg/dL (7-18); BUN/Creat Ratio 8.6 RATIO (10-20); Chloride 111 mmol/L (98-107); Creatinine, Serum 1.28 mg/dL (0.70-1.30); EST Glomerular Filtration Rate 59 mL/min (>60); Est Glom Filt Rate - Afr Amer 71 mL/min (>60); Estimated Creatinine Clearance 56.41 ml/min; Glucose 103 mg/dL (74-106); Magnesium 1.8 mg/dL (1.6-2.6); Potassium 3.7 mmol/L (3.5-5.1); Sodium Level 144 mmol/L (136-145)
[2021-09-15 02:51] LABS: BNP,B-Type NATRIURETIC PEPTIDE 16.3 pg/mL (0-100)
[2021-09-15 03:27] VITALS: BP 139/77; PULSE 90; RESP 18; O2SAT 92
== END 2021-09-15 03:29 | disposition home or self-care (01) ==
PROVIDERS: Emergency Provider Emergency Medicine; PCP Internal Medicine; Visit Provider Emergency Medicine
DX: J44.1 Chronic obstructive pulmonary disease with (acute) exacerbation (principal); F41.9 Anxiety disorder, unspecified; I25.10 Atherosclerotic heart disease of native coronary artery without angina pectoris; I25.2 Old myocardial infarction; G47.33 Obstructive sleep apnea (adult) (pediatric); Z95.5 Presence of coronary angioplasty implant and graft; Z87.891 Personal history of nicotine dependence
CPT/HCPCS: 71046; 80048; 83735; 83880; 85025; 93005; 94640; 96374; 96375; 99283; A4216

== ENCOUNTER → 2021-09-20 | Outpatient (CLI) | payer MEDICARE, MEDICAID, SELFPAY ==
[2018-10-16 10:45] VITALS: BMI 21.8
[2021-09-20 10:25] LABS: Absolute Lymphocyte Count 1.94 X10^3/uL (0.83-4.51); Absolute Neutrophil Count 4.9 X10^3/uL (2.0-7.7); Basophil# 0.06 X10^3/uL; Basophil% 0.8 % (0-1); Eosinophil# 0.25 X10^3/uL; Eosinophils% 3.2 % (0-5); Hematocrit 39.2 % (40-54); Hemoglobin 12.3 g/dL (13.0-16.5); Lymphocyte # 1.94 X10^3/ul (0.83-4.51); Mean Corp Hgb Conc 31.4 g/dL (32-36); Mean Corpuscular Hgb 25.9 pg (27.0-32.0); Mean Corpuscular Volume 82.7 fL (80-94); Mean Platelet Vol. 10.1 fl (6.2-12.0); Monocyte% 7.7 % (0-10); NRBC Flagged by Analyzer 0 % (0-5); Neutrophil # 4.85 X10^3/uL (2.7-7.7); Neutrophil % 62.7 % (47-70); Platelet Count 268 K/mm3 (150-450); RBC Distribution Width CV 16.2 % (11.6-14.6); RBC Distribution Width SD 49.4 fl (35.1-43.9); Red Blood Count 4.74 M/mm3 (4.6-6.2); White Blood Count 7.8 K/mm3 (4.4-11.0)
[2021-09-20 10:45] LABS: ALB/GLOB Ratio 1.3 RATIO (0.9-2.4); AST(SGOT) 13 U/L (15-37); Alanine Aminotransfer ALT/SGPT 25 U/L (16-61); Alkaline Phosphatase 104 U/L (45-117); Anion Gap 3 (5-15); BUN 26 mg/dL (7-18); BUN/Creat Ratio 15.4 RATIO (10-20); Calcium,Total 8.9 mg/dL (8.5-10.1); Chloride 108 mmol/L (98-107); Creatinine, Serum 1.69 mg/dL (0.70-1.30); EST Glomerular Filtration Rate 42 mL/min (>60); Est Glom Filt Rate - Afr Amer 51 mL/min (>60); Glucose 105 mg/dL (74-106); Sodium Level 141 mmol/L (136-145); Troponin-I HS 7 pg/mL (3.0-78.0)
== END | disposition home or self-care (01) ==
LOC: LABSPEC 10:15
PROVIDERS: PCP Internal Medicine; Visit Provider Internal Medicine
DX: R55 Syncope and collapse (principal)
CPT/HCPCS: 80053; 84484; 85025

== ENCOUNTER → 2021-09-24 | Outpatient (CLI) | payer MEDICARE, MEDICAID, SELFPAY ==
[2018-10-16 10:45] VITALS: BMI 21.8
[2021-09-24 12:34] LABS: Anion Gap 8 (5-15); BUN 19 mg/dL (7-18); BUN/Creat Ratio 12.8 RATIO (10-20); Calcium,Total 9.5 mg/dL (8.5-10.1); Chloride 103 mmol/L (98-107); Creatinine, Serum 1.49 mg/dL (0.70-1.30); EST Glomerular Filtration Rate 49 mL/min (>60); Est Glom Filt Rate - Afr Amer 59 mL/min (>60); Glucose 198 mg/dL (74-106); Potassium 4.1 mmol/L (3.5-5.1); Sodium Level 138 mmol/L (136-145)
== END | disposition home or self-care (01) ==
LOC: LABSPEC 12:04
PROVIDERS: PCP Internal Medicine; Visit Provider Internal Medicine
DX: I11.9 Hypertensive heart disease without heart failure (principal)
CPT/HCPCS: 80048

== ENCOUNTER → 2021-10-01 | Outpatient (CLI) | payer MEDICARE, MEDICAID, SELFPAY ==
[2018-10-16 10:45] VITALS: BMI 21.8
--- NOTE | 2021-10-01 09:38 | TELEMED_ITS ---
[facility] has confirmed receipt of a request for visit. This document confirms receipt of the order initiating the consult. To find the results of the consultation, please view the patient's reports for the scanned Telemed Consult.
== END | disposition home or self-care (01) ==
PROVIDERS: PCP Internal Medicine; Referring Provider Internal Medicine; Visit Provider Internal Medicine
DX: R55 Syncope and collapse (principal)
CPT/HCPCS: 95819

== ENCOUNTER 2021-10-30 08:39 | Observation (INO) | payer MEDICARE, MEDICAID, SELFPAY ==
[2018-10-16 10:45] VITALS: BMI 21.8
[2021-10-30] VITALS (21 sets, daily range): BP systolic 55–134; BP diastolic 37–75; PULSE 73–98; RESP 14–21; TEMP 36.6–37.5; O2SAT 93–98; BMI 25.0; BMI 24.3
--- NOTE | 2021-10-30 09:02 | RAD_ITS ---
INDICATION: chest pain EXAMINATION/TECHNIQUE: X-RAY - XR Chest 1 View COMPARISON: None. FINDINGS: LINES/DEVICES: Internal fixation of the lower cervical spine is seen. LUNGS: Peribronchial cuffing bilateral hilar prominence is seen, bronchovascular interstitial lung markings unremarkable no evidence of focal lung infiltrate or consolidation. No evidence of pneumothorax or pleural effusion. No evidence of parenchymal lung mass. MEDIASTINUM AND CARDIOVASCULAR STRUCTURES: Cardiac silhouette not enlarged. BONES AND SOFT TISSUES: Degenerative bone changes seen.. RAD/Chest 1 View (Portable) IMPRESSION: No radiographic evidence of acute cardiopulmonary disease. Electronically Signed: Johnathan Moreno MD at 10:46 EDT Reading Location ID and State: [facility] / [place] Tel , Service support ,
--- NOTE | 2021-10-30 09:10 | ED.VIS.CHEST ---
HPI History of Present Illness Chief Complaint: Chest Pain Informant: patient Onset/Context/Timing Onset: Yesterday Activity at onset: sudden Timing: Continuous Quality: Positive for Sharp and Stabbing Location: Substernal, Right Chest and Left Chest Worsened By: - (Laying down) Relieved By: Nothing Associated Symptoms: Positive for Nausea, Cough and Lightheadedness; Negative for Vomiting, Diaphoresis, Dyspnea, Fever, Acid Reflux or Palpitations Narrative Narrative: Patient presents with chest pain that began yesterday. Patient states it began rather suddenly. Patient states it came on at rest. Patient describes the pain as sharp and stabbing. Patient states it is diffuse across his chest. Patient states it is slightly worse whenever he lays down. Patient states nothing makes it any better. Patient admits to nausea but denies any vomiting. Patient admits to a cough but denies any fevers or chills. Patient admits to some clear sputum production. Patient also admits to some lightheadedness. Patient states he has a history of coronary artery disease with 2 stents placed. CVD Risk Factors: Positive for Hypertension, Hypercholesterolemia and Family History 1' </=55; Negative for Diabetes or Smoking PE Risk Factors: Negative for Recent Travel/Surgery, Recent Immobilization, Prior DVT or PE, Cancer or OCP + Smoking + >/=35 PFSH PFSH Medical History Anxiety Asthma Atherosclerotic heart disease of [place] coronary artery without angina pectoris Bipolar disorder Bipolar disorder BPH (benign prostatic hyperplasia) Cannabis dependence Cervical radiculitis Cervical spondylosis Chest pain Chest tightness COPD (chronic obstructive pulmonary disease) CPAP (continuous positive airway pressure) dependence DDD (degenerative disc disease) Dementia Depression Diabetes Dyspnea on exertion Essential (primary) hypertension Fatigue Former smoker GERD (gastroesophageal reflux disease) History of pulmonary embolism Hyperlipidemia Hypertension IBS (irritable bowel syndrome) Lung nodule < 6cm on CT Migraines Myocardial infarct MONIQUE (obstructive sleep apnea) Partial tear of right rotator cuff Peptic ulcer disease Pleurisy PVCs (premature ventricular contractions) Restless leg syndrome Schizophrenia Sleep apnea Smoking greater than 40 pack years Stage 2 moderate COPD by GOLD classification Syncope and collapse Trigger finger Wheezing Home Medications ropinirole 0.5 mg tablet 0.5 mg PO QHS LEGS 04/23/16 [History Last Taken 07/29/19] tamsulosin 0.4 mg capsule 0.4 mg PO QHS PROSTATE 01/30/17 [History Last Taken 07/29/19] omeprazole 40 mg capsule,delayed release 40 mg PO DAILY GERD 07/30/19 [History Last Taken 07/30/19] metformin 500 mg tablet,extended release 24 hr 500 mg PO DAILY 09/01/20 [History Last Taken Unknown] aripiprazole 10 mg tablet 10 mg PO DAILY 11/09/20 [History Last Taken Unknown] baclofen 10 mg tablet 10 mg PO TID 11/09/20 [History Last Taken Unknown] dicyclomine 20 mg tablet 20 mg PO BID 11/09/20 [History Last Taken Unknown] icosapent ethyl 1 gram capsule (Vascepa) 2 g PO BID 11/09/20 [History Last Taken Unknown] mirtazapine 15 mg tablet 15 mg PO DAILY 11/09/20 [History Last Taken Unknown] trazodone 100 mg tablet 50 mg PO QHS 11/09/20 [History Last Taken Unknown] sertraline 100 mg tablet 100 mg PO DAILY 05/18/21 [History Last Taken Unknown] budesonide 160 mcg-glycopyr 9 mcg-formot 4.8 mcg/actuation HFA inhaler (Breztri Aerosphere) 2 inh inhalation BID #10.7 grams 07/24/21 [Rx Last Taken Unknown] albuterol sulfate 2.5 mg/3 mL (0.083 %) solution for nebulization 2.5 mg (3 mL) inhalation Q8H PRN PRN shortness of breath or wheezing #180 mL 08/20/21 [Rx Last Taken Unknown] fexofenadine 180 mg tablet (Jeaneth Allergy) 180 mg PO DAILY 09/28/21 [History Last Taken Unknown] furosemide 20 mg tablet 20 mg PO DAILY 09/28/21 [History Last Taken Unknown] potassium chloride 10 mEq tablet,extended release(part/cryst) 10 meq PO DAILY 09/28/21 [History Last Taken Unknown] sildenafil 50 mg tablet 50 mg PO ONCE PRN sexual activity 09/28/21 [History Last Taken Unknown] nitroglycerin 0.4 mg sublingual tablet (Nitrostat) 0.4 mg sublingual Q5-15M PRN chest pain #25 tabs 10/12/21 [Rx Last Taken Unknown] albuterol sulfate 90 mcg/actuation aerosol inhaler 2 puff inhalation Q6H PRN 10/23/21 [History Last Taken Unknown] atorvastatin 40 mg tablet 40 mg PO QHS 10/23/21 [History Last Taken Unknown] clopidogrel 75 mg tablet 75 mg PO DAILY 10/23/21 [History Last Taken Unknown] donepezil 10 mg tablet 10 mg PO DAILY 10/23/21 [History Last Taken Unknown] fenofibrate 54 mg tablet 54 mg PO DAILY 10/23/21 [History Last Taken Unknown] lamotrigine 200 mg tablet 200 mg PO DAILY 10/23/21 [History Last Taken Unknown] losartan 100 mg tablet 50 mg PO DAILY 10/23/21 [History Last Taken Unknown] olanzapine 10 mg tablet 10 mg PO DAILY 10/23/21 [History Last Taken Unknown] montelukast 10 mg tablet 10 mg PO QPM #30 tabs 10/25/21 [Rx Last Taken Unknown] Allergy/AdvReac Type Severity Reaction Status Date / Time Quinolones Allergy Unknown unknown Verified 10/25/21 12:47 aspirin Allergy Itching, Verified 10/25/21 12:47 Hives levofloxacin [From Levaquin] Allergy Hives, Verified 10/25/21 12:47 Itching Penicillins Allergy Hives, Verified 10/25/21 12:47 Itching Family History Mother CAD (coronary artery disease) Sister Diabetes Surgical History H/O cervical spine surgery H/O ventral hernia repair History of appendectomy History of appendectomy History of arthroscopy History of coronary artery stent placement (10/16/18) History of left heart catheterization (04/2016) Social History household members: none housing: house current occupational status: disabled Smoking Status: Former smoker quit date: 02/14/15 how long ago did patient quit smokin years ago second hand exposure: Yes alcohol intake: former details: Quit 9 years ago substance use type: does not use caffeine: Yes Type: coffee what type of physical activity do you participate in: none seatbelt use: always do you feel safe at home: Yes ROS ROS ED Constitutional Constitutional ED: Denies chills or fever(s) Eyes Eyes: Denies blurry vision or change in vision ENT ENT ED: Reports rhinorrhea; Denies sore throat Cardiovascular Cardiovascular: Reports as per HPI and chest pain; Denies palpitations Respiratory/Chest Respiratory/Chest: Reports cough; Denies dyspnea Gastrointestinal Gastrointestinal: Reports nausea; Denies abdominal pain or vomiting Genitourinary Genitourinary ED: Reports urinary frequency; Denies dysuria or hematuria Musculoskeletal Musculoskeletal: Reports back pain and neck pain Integumentary Denies abscess or rash Neurologic Neurologic: Reports headache(s); Denies weakness Allergic/Immunologic Allergic/Immunologic ED: Denies mouth swelling or urticaria EXAM Physical Exam Const Vital Signs: 10/30/21 08:41 10/30/21 08:44 10/30/21 09:16 Temperature 98.5 F Temperature Source Oral Pulse Rate 97 98 Respiratory Rate 14 Respiratory Effort Non-Labored Blood Pressure 131/75 H 115/70 Blood Pressure Mean 93 Pulse Ox 96 Oxygen Delivery Method Room Air 10/30/21 09:21 10/30/21 09:21 10/30/21 09:23 Temperature Temperature Source Pulse Rate 97 Respiratory Rate Respiratory Effort Blood Pressure 115/70 70/57 L Blood Pressure Mean 61 Pulse Ox Oxygen Delivery Method Room Air 10/30/21 09:27 10/30/21 09:30 10/30/21 09:42 Temperature Temperature Source Pulse Rate Respiratory Rate Respiratory Effort Blood Pressure 55/37 L 78/51 L 100/68 Blood Pressure Mean 43 60 78 Pulse Ox Oxygen Delivery Method 10/30/21 09:48 10/30/21 09:53 10/30/21 10:05 Temperature Temperature Source Pulse Rate 73 Respiratory Rate 17 Respiratory Effort Blood Pressure 101/66 106/64 114/66 Blood Pressure Mean 77 78 82 Pulse Ox 94 Oxygen Delivery Method Room Air 10/30/21 10:17 10/30/21 10:54 Temperature Temperature Source Pulse Rate 74 Respiratory Rate 21 H Respiratory Effort Blood Pressure 103/64 111/60 Blood Pressure Mean 77 77 Pulse Ox 96 Oxygen Delivery Method Room Air Positive well nourished and well developed General Appearance ED: well developed HEENT normocephalic and atraumatic Eyes PERRL and EOMs intact bilaterally Neck supple and no JVD Chest Wall palpation of chest normal Resp normal respiratory effort and clear to auscultation bilaterally Effort and Inspection: Negative for respiratory distress Cardio regular rate, regular rhythm and no murmurs GI normal to inspection, nondistended, normoactive bowel sounds, soft to palpation, non-tender and non-distended Extremity normal to inspection General Extremety ED: Negative for edema or tenderness General Extremity: Negative for edema Neuro oriented x3, CN's II-XII intact bilaterally and no sensory deficits noted Sensorium / Orientation: awake and alert Motor Exam: strength 5/5 throughout Psych mental status grossly normal Heart Score History: Moderately Suspicious ECG: Nonspecific Repolarization Age: >/= 65 years Risk Factors: >/= 3 Risk Factors or History of CAD Troponin: </= Normal Limit Score: 6 MDM MDM MDM Narrative Medical decision making narrative: EKG was obtained. On my interpretation, it showed a normal sinus rhythm with a rate of 91. SD interval, QRS interval, and QTc intervals were all normal. [place] was normal. There are nonspecific ST-T wave changes. Patient was given 2 sublingual nitroglycerin tablets. Patient's blood pressure dropped into the 70s systolic. Patient was given IV fluids. Patient's blood pressure improved after this. IV fluids were then stopped due to the patient's history of congestive heart failure. Patient was not given aspirin due to his allergy to aspirin. Portable 1 view chest x-ray was obtained. On my interpretation, lung hayes are clear. There is normal cardiac silhouette. Bony thorax is normal. There is no acute process noted. Radiologist also interpreted the x-ray and agrees. CBC shows a mild anemia with a hemoglobin of 12.0 and hematocrit 37.6. Basic metabolic profile showed a slightly elevated creatinine of 1.53. This was consistent with prior results. D-dimer was 0.56. When adjusted for age, this is normal. High-sensitivity troponin was normal. Patient has a HEART score of 6. Because of this, I feel the patient would benefit from further evaluation in the hospital. Case was discussed with the hospitalist. She will admit the patient to her service. Patient understood and was agreeable with the plan. All questions were answered. Lab Data Attestation: I reviewed the patient's lab results. Labs: Laboratory Results - last 24 hr 10/30/21 10/30/21 10/30/21 09:00 09:00 09:00 WBC 4.9 RBC 4.52 L Hgb 12.0 L Hct 37.6 L MCV 83.2 MCH 26.5 L MCHC 31.9 L RDW Std Deviation 45.9 H RDW Coeff of Tad 15.0 H Plt Count 203 MPV 9.8 Immature Gran % (Auto) 0.800 Neut % (Auto) 66.7 Lymph % (Auto) 16.4 L [place] % (Auto) 15.1 H Eos % (Auto) 0.6 Baso % (Auto) 0.4 Absolute Neuts (auto) 3.3 Absolute Lymphs (auto) 0.80 L Nucleated RBC % 0 D-Dimer Quant (PE/DVT) 0.56 H* Sodium 136 Potassium 3.1 L Chloride 104 Carbon Dioxide 23.0 Anion Gap 9 BUN 14 Creatinine 1.53 H Estim Creat Clear Calc 47.20 Est GFR (MDRD) Af Amer 58 L Est GFR (MDRD) Non-Af 48 L BUN/Creatinine Ratio 9.2 L Glucose 148 H Calcium 8.6 Troponin I High Sens 9 Radiography Chest X-Ray - ED: 1 View, Read by ED Physician, Read by Radiologist and No Acute Disease Diagnostic Testing: Clinical Impression(s) from Imaging Studies Chest X-Ray 10/30/21 09:02 IMPRESSION: No radiographic evidence of acute cardiopulmonary disease. Electronically Signed: Johnathan Moreno MD at 10:46 EDT , EKG Initial EKG: Attestation: I personally reviewed and interpreted this EKG as follows: Interpretation: Sinus Rhythm (91) and Non-Specific ST Changes Prior EKG tracings: available for review Prior: Unchanged (09/15/2021) Discharge Plan Triage Chief Complaint: Chest Pain ED Provider: Min Hewitt Dx/Rx/DC Orders Clinical Impression: Chest pain, History of coronary artery stent placement, Essential (primary) hypertension Prescriptions: No Action metformin 500 mg tablet extended release 24 hr 500 mg PO DAILY trazodone 100 mg tablet 50 mg PO QHS dicyclomine 20 mg tablet 20 mg PO BID mirtazapine 15 mg tablet 15 mg PO DAILY aripiprazole 10 mg tablet 10 mg PO DAILY icosapent ethyl [Vascepa] 1 gram capsule 2 g PO BID baclofen 10 mg tablet 10 mg PO TID sertraline 100 mg tablet 100 mg PO DAILY Breztri Aerosphere 160-9-4.8 mcg/actuation HFA aerosol inhaler 2 inh inhalation BID Qty: 10.7 5RF montelukast 10 mg tablet 10 mg PO QPM Qty: 30 3RF fenofibrate 54 mg tablet 54 mg PO DAILY Label Comments: TAKE 1 TABLET BY MOUTH EVERY DAY clopidogrel 75 mg tablet 75 mg PO DAILY olanzapine 10 mg tablet 10 mg PO DAILY donepezil 10 mg tablet 10 mg PO DAILY lamotrigine 200 mg tablet 200 mg PO DAILY atorvastatin 40 mg tablet 40 mg PO QHS albuterol sulfate 90 mcg/actuation HFA aerosol inhaler 2 puff inhalation Q6H PRN losartan 100 mg tablet 50 mg PO DAILY sildenafil 50 mg tablet 50 mg PO ONCE PRN (Reason: sexual activity) Label Comments: TAKE 1 TABLET BY MOUTH TWICE A WEEK NEEDED ONE HOUR BEFORE SEXUAL ACTIVITY Rx Instructions: TAKE 1 TABLET BY MOUTH TWICE A WEEK NEEDED ONE HOUR BEFORE SEXUAL ACTIVITY furosemide 20 mg tablet 20 mg PO DAILY potassium chloride 10 mEq tablet,ER particles/crystals 10 meq PO DAILY fexofenadine [Jeaneth Allergy] 180 mg tablet 180 mg PO DAILY ropinirole 0.5 MG tablet 0.5 mg PO QHS Label Comments: restless legs tamsulosin 0.4 MG capsule,extended release 24hr 0.4 mg PO QHS omeprazole 40 MG capsule,delayed release(DR/EC) 40 mg PO DAILY albuterol sulfate 2.5 mg /3 mL (0.083 %) solution for nebulization 2.5 mg INHALATION Q8H PRN PRN (Reason: shortness of breath or wheezing) Qty: 180 6RF nitroglycerin [Nitrostat] 0.4 mg tablet, sublingual 0.4 mg sublingual Q5-15M PRN (Reason: chest pain) Qty: 25 3RF Rx Instructions: do not exceed 3 doses per episode Primary Care Provider: Ani Andersen Referrals: Ani Andersen DO [Primary Care Provider] - Disposition Disposition: Acute Care Hospital [facility] [place] [facility]
--- NOTE | 2021-10-30 09:15 | EKG12_ITS ---
Test Reason : cp admin Blood Pressure : / mmHG Vent. Rate : 073 BPM Atrial Rate : 073 BPM P-R Int : 164 ms QRS Dur : 070 ms QT Int : 384 ms P-R-T Axes : 053 035 042 degrees QTc Int : 423 ms Normal sinus rhythm Septal infarct , age undetermined Abnormal ECG Confirmed by VALENTIN STEVENSON, LATISHA ([id number]), video news editor GRACIELA BARBOZA ([id number]) on 10/31/2021 12:53:15 PM Referred By: Confirmed By:LATISHA HANSON MD
[2021-10-30] MEDS: Nitroglycerin SL (ED/IMG/CATH) 0.4 MG TABLET SL ×2 (09:16→09:21)
[2021-10-30 09:18] LABS: Absolute Neutrophil Count 3.3 X10^3/uL (2.0-7.7); Basophil# 0.02 X10^3/uL; Basophil% 0.4 % (0-1); Eosinophil# 0.03 X10^3/uL; Eosinophils% 0.6 % (0-5); Hematocrit 37.6 % (40-54); Lymphocyte % 16.4 % (19-41); Mean Corp Hgb Conc 31.9 g/dL (32-36); Mean Corpuscular Hgb 26.5 pg (27.0-32.0); Mean Corpuscular Volume 83.2 fL (80-94); Mean Platelet Vol. 9.8 fl (6.2-12.0); Monocyte# 0.74 X10^3/uL; Monocyte% 15.1 % (0-10); NRBC Flagged by Analyzer 0 % (0-5); Neutrophil # 3.26 X10^3/uL (2.7-7.7); Neutrophil % 66.7 % (47-70); Platelet Count 203 K/mm3 (150-450); RBC Distribution Width SD 45.9 fl (35.1-43.9); Red Blood Count 4.52 M/mm3 (4.6-6.2); White Blood Count 4.9 K/mm3 (4.4-11.0)
[2021-10-30] MEDS: 0.9% Normal Saline 1,000 ML 1000 ML IV (09:26)
[2021-10-30 09:36] LABS: Anion Gap 9 (5-15); BUN 14 mg/dL (7-18); BUN/Creat Ratio 9.2 RATIO (10-20); Calcium,Total 8.6 mg/dL (8.5-10.1); Chloride 104 mmol/L (98-107); Creatinine, Serum 1.53 mg/dL (0.70-1.30); EST Glomerular Filtration Rate 48 mL/min (>60); Est Glom Filt Rate - Afr Amer 58 mL/min (>60); Glucose 148 mg/dL (74-106); Potassium 3.1 mmol/L (3.5-5.1); Sodium Level 136 mmol/L (136-145); Troponin-I HS (w/2H Reflex) 9 pg/mL (3.0-78.0)
[2021-10-30 09:40] LABS: D-Dimer Quantitative (DVT/PE) 0.56 FEU/ug/m (0.27-0.49)
[2021-10-30] MEDS: Potassium Chloride Oral Tablet 20 MEQ 40 MEQ PO (09:47)
--- NOTE | 2021-10-30 10:08 | ED.RN ---
d/c fluids per provider.
--- NOTE | 2021-10-30 10:59 | NURSING ---
HOSPITALIST FOR DR MCKEON
--- NOTE | 2021-10-30 11:04 | NURSING ---
PCU OBS [facility] CHEST PAIN
--- NOTE | 2021-10-30 11:05 | PCM.HP.STD ---
HPI - General General Date of Admission: 10/30/21 Date of Service: 10/30/21 Chief Complaint: Chest pain HPI Narrative LILLIAN GUERRERO, is a 71 M who presents with the above. Patient has past medical history of CAD status post stents, hypertension, hyperlipidemia, MONIQUE, former smoker who comes in with complaints of chest pain that happened while she was about to rest yesterday. Patient stated that he had severe chest pain that radiated across his chest and felt to be in the ribs. It also went to his back. He felt very dizzy and concerned. Chest pain is worse whenever he lies down. Nothing made it better. He is due to get a knee replacement and wanted to come to the hospital to make sure he is okay. At time of being seen, chest pain was worse when his chest wall was palpated. Denied any palpitations or dizziness. Patient had a recent stress test in August that was unremarkable. Vitals in ED showed blood pressure 131/75, heart rate 97, respiratory rate 14, SPO2 is 96% on room air, temperature 98.5 F. His WBC count 4.9, hemoglobin 12.2, platelet count 203, D-dimer 0.56, sodium 136, potassium 3.1, potassium 104, Dr. Eller 20, BUN 14, creatinine 1.53, previous creatinine was 1.49. Troponin was 9. EKG showed normal sinus rhythm, no acute ST changes. Chest x-ray was unremarkable. [facility] Medical History Anxiety Asthma Atherosclerotic heart disease of [place] coronary artery without angina pectoris Bipolar disorder Bipolar disorder BPH (benign prostatic hyperplasia) Cannabis dependence Cervical radiculitis Cervical spondylosis Chest pain Chest tightness COPD (chronic obstructive pulmonary disease) CPAP (continuous positive airway pressure) dependence DDD (degenerative disc disease) Dementia Depression Diabetes Dyspnea on exertion Essential (primary) hypertension Fatigue Former smoker GERD (gastroesophageal reflux disease) History of pulmonary embolism Hyperlipidemia Hypertension IBS (irritable bowel syndrome) Lung nodule < 6cm on CT Migraines Myocardial infarct MONIQUE (obstructive sleep apnea) Partial tear of right rotator cuff Peptic ulcer disease Pleurisy PVCs (premature ventricular contractions) Restless leg syndrome Schizophrenia Sleep apnea Smoking greater than 40 pack years Stage 2 moderate COPD by GOLD classification Syncope and collapse Trigger finger Wheezing Home Medications ropinirole 0.5 mg tablet 0.5 mg PO QHS LEGS 04/23/16 [History Last Taken 07/29/19] tamsulosin 0.4 mg capsule 0.4 mg PO QHS PROSTATE 01/30/17 [History Last Taken 07/29/19] omeprazole 40 mg capsule,delayed release 40 mg PO DAILY GERD 07/30/19 [History Last Taken 07/30/19] metformin 500 mg tablet,extended release 24 hr 500 mg PO DAILY 09/01/20 [History Last Taken Unknown] aripiprazole 10 mg tablet 10 mg PO DAILY 11/09/20 [History Last Taken Unknown] baclofen 10 mg tablet 10 mg PO TID 11/09/20 [History Last Taken Unknown] dicyclomine 20 mg tablet 20 mg PO BID 11/09/20 [History Last Taken Unknown] icosapent ethyl 1 gram capsule (Vascepa) 2 g PO BID 11/09/20 [History Last Taken Unknown] mirtazapine 15 mg tablet 15 mg PO DAILY 11/09/20 [History Last Taken Unknown] trazodone 100 mg tablet 50 mg PO QHS 11/09/20 [History Last Taken Unknown] sertraline 100 mg tablet 100 mg PO DAILY 05/18/21 [History Last Taken Unknown] budesonide 160 mcg-glycopyr 9 mcg-formot 4.8 mcg/actuation HFA inhaler ([employer]) 2 inh inhalation BID #10.7 grams 07/24/21 [Rx Last Taken Unknown] albuterol sulfate 2.5 mg/3 mL (0.083 %) solution for nebulization 2.5 mg (3 mL) inhalation Q8H PRN PRN shortness of breath or wheezing #180 mL 08/20/21 [Rx Last Taken Unknown] fexofenadine 180 mg tablet (Jeaneth Allergy) 180 mg PO DAILY 09/28/21 [History Last Taken Unknown] furosemide 20 mg tablet 20 mg PO DAILY 09/28/21 [History Last Taken Unknown] potassium chloride 10 mEq tablet,extended release(part/cryst) 10 meq PO DAILY 09/28/21 [History Last Taken Unknown] sildenafil 50 mg tablet 50 mg PO ONCE PRN sexual activity 09/28/21 [History Last Taken Unknown] nitroglycerin 0.4 mg sublingual tablet (Nitrostat) 0.4 mg sublingual Q5-15M PRN chest pain #25 tabs 10/12/21 [Rx Last Taken Unknown] albuterol sulfate 90 mcg/actuation aerosol inhaler 2 puff inhalation Q6H PRN 10/23/21 [History Last Taken Unknown] atorvastatin 40 mg tablet 40 mg PO QHS 10/23/21 [History Last Taken Unknown] clopidogrel 75 mg tablet 75 mg PO DAILY 10/23/21 [History Last Taken Unknown] donepezil 10 mg tablet 10 mg PO DAILY 10/23/21 [History Last Taken Unknown] fenofibrate 54 mg tablet 54 mg PO DAILY 10/23/21 [History Last Taken Unknown] lamotrigine 200 mg tablet 200 mg PO DAILY 10/23/21 [History Last Taken Unknown] losartan 100 mg tablet 50 mg PO DAILY 10/23/21 [History Last Taken Unknown] olanzapine 10 mg tablet 10 mg PO DAILY 10/23/21 [History Last Taken Unknown] montelukast 10 mg tablet 10 mg PO QPM #30 tabs 10/25/21 [Rx Last Taken Unknown] Allergy/AdvReac Type Severity Reaction Status Date / Time Quinolones Allergy Unknown unknown Verified 10/25/21 12:47 aspirin Allergy Itching, Verified 10/25/21 12:47 Hives levofloxacin [From Levaquin] Allergy Hives, Verified 10/25/21 12:47 Itching Penicillins Allergy Hives, Verified 10/25/21 12:47 Itching Family History Mother CAD (coronary artery disease) Sister Diabetes Surgical History H/O cervical spine surgery H/O ventral hernia repair History of appendectomy History of appendectomy History of arthroscopy History of coronary artery stent placement (10/16/18) History of left heart catheterization (04/2016) Social History household members: none housing: house current occupational status: disabled Smoking Status: Former smoker quit date: 02/14/15 how long ago did patient quit smokin years ago second hand exposure: Yes alcohol intake: former details: Quit 9 years ago substance use type: does not use caffeine: Yes Type: coffee what type of physical activity do you participate in: none seatbelt use: always do you feel safe at home: Yes ROS ROS Narrative Constitutional: Reports: Malaise, Weakness, Fatigue. Denies: Anorexia, Chills, Fever, Night Sweats, Weight Change Eyes: Denies: Blurred vision, Cataracts, Conjunctivae Inflammation, Pain, Redness, Vision Change HEENT: Denies: Difficulty Hearing, Difficulty Swallowing, Head Aches, Hearing Changes, Sinus Congestion, Sinus Drainage Cardiovascular: See HPI Respiratory: Denies: Cough, Shortness of breath at rest, Sputum production Gastrointestinal: Denies: Abdominal Pain, Nausea, Vomiting Genitourinary: Denies: Dysuria Musculoskeletal: Denies: Joint Pain, Joint stiffness, Joint swelling, Joint Tenderness Skin: Denies: Rash, Wounds Neurological: Denies: Numbness, Tingling, Focal weakness Vital Signs Vital Signs Vital Signs: 10/30/21 08:41 10/30/21 08:44 10/30/21 09:16 Temperature 98.5 F Temperature Source Oral Pulse Rate 97 98 Respiratory Rate 14 Respiratory Effort Non-Labored Blood Pressure 131/75 H 115/70 Blood Pressure Mean 93 Pulse Ox 96 Oxygen Delivery Method Room Air 10/30/21 09:21 10/30/21 09:21 10/30/21 09:23 Temperature Temperature Source Pulse Rate 97 Respiratory Rate Respiratory Effort Blood Pressure 115/70 70/57 L Blood Pressure Mean 61 Pulse Ox Oxygen Delivery Method Room Air 10/30/21 09:27 10/30/21 09:30 10/30/21 09:42 Temperature Temperature Source Pulse Rate Respiratory Rate Respiratory Effort Blood Pressure 55/37 L 78/51 L 100/68 Blood Pressure Mean 43 60 78 Pulse Ox Oxygen Delivery Method 10/30/21 09:48 10/30/21 09:53 10/30/21 10:05 Temperature Temperature Source Pulse Rate 73 Respiratory Rate 17 Respiratory Effort Blood Pressure 101/66 106/64 114/66 Blood Pressure Mean 77 78 82 Pulse Ox 94 Oxygen Delivery Method Room Air 10/30/21 10:17 10/30/21 10:54 Temperature Temperature Source Pulse Rate 74 Respiratory Rate 21 H Respiratory Effort Blood Pressure 103/64 111/60 Blood Pressure Mean 77 77 Pulse Ox 96 Oxygen Delivery Method Room Air Weight Weight: 83.915 kg Body Mass Index (BMI) 25.0 Physical Exam Narrative Physical exam: General: Alert, Oriented x3, Cooperative, No apparent distress HEENT: Atraumatic Oral: Moist Mucosa Neck: Supple Lungs: Clear to auscultation Cardiovascular: Reproducible bilateral chest wall tenderness, HS I+II, regular, no murmurs Abdomen: Bowel Sounds Present, Soft, Non Tender Extremities: No edema Skin: No rashes, No breakdown Neurological: Grossly intact Psych/Mental Status: Appropriate Results Lab / Micro Data Result Diagrams: 10/30/21 09:00 10/30/21 09:00 Labs: Laboratory Results - last 24 hr 10/30/21 09:00: WBC 4.9, RBC 4.52 L, Hgb 12.0 L, Hct 37.6 L, MCV 83.2, MCH 26.5 L, MCHC 31.9 L, RDW Std Deviation 45.9 H, RDW Coeff of Tad 15.0 H, Plt Count 203, MPV 9.8, Immature Gran % (Auto) 0.800, Neut % (Auto) 66.7, Lymph % (Auto) 16.4 L, [place] % (Auto) 15.1 H, Eos % (Auto) 0.6, Baso % (Auto) 0.4, Absolute Neuts (auto) 3.3, Absolute Lymphs (auto) 0.80 L, Nucleated RBC % 0 10/30/21 09:00: Sodium 136, Potassium 3.1 L, Chloride 104, Carbon Dioxide 23.0, Anion Gap 9, BUN 14, Creatinine 1.53 H, Estim Creat Clear Calc 47.20, Est GFR (MDRD) Af Amer 58 L, Est GFR (MDRD) Non-Af 48 L, BUN/Creatinine Ratio 9.2 L, Glucose 148 H, Calcium 8.6, Troponin I High Sens 9 10/30/21 09:00: D-Dimer Quant (PE/DVT) 0.56 H* Radiology Impression Chest X-Ray 10/30/21 09:02 IMPRESSION: No radiographic evidence of acute cardiopulmonary disease. Electronically Signed: Johnathan Moreno MD at 10:46 EDT , Assessment & Plan Assessment/Plan (1) Chest pain: PLAN: Plan 1. Acute chest pain, musculoskeletal, patient admits to having fallen about a month ago EKG showed no acute changes, troponin negative x2 Will manage on scheduled Tylenol, lidocaine Derm patches 2. CAD s/p stents, Hypertension, appears stable Continue on statin, plavix, fenofibrate,Vascepa, losartan, Lasix 3. Asthma/COPD, not in acute exacerbation, continue breathing treatments as needed 4. Type II DM, on metformin, continue metformin, insulin sliding scale blood glucose checks 5. DVT prophylaxis - Heparin SC Charges/Coding Visit Charges OBSV E&M: 93414 Initial observation care L3
[2021-10-30 11:12] LABS: Reflex Troponin-HS? (from REC) Y
[2021-10-30 12:07] LABS: Troponin-I HS 9 pg/mL (3.0-78.0)
[2021-10-30] MEDS: Ipratropium/Albuterol Sulfate 3 ML AMPUL.NEB INHALATION ×2 (13:18→20:43)
--- NOTE | 2021-10-30 13:56 | EKG12_ITS ---
Test Reason : CP Blood Pressure : / mmHG Vent. Rate : 091 BPM Atrial Rate : 091 BPM P-R Int : 160 ms QRS Dur : 076 ms QT Int : 370 ms P-R-T Axes : 054 029 060 degrees QTc Int : 455 ms Normal sinus rhythm Nonspecific ST and T wave abnormality Abnormal ECG Confirmed by CLARA STEVENSON, MIGUELITO ([id number]), food expeditor GRACIELA BARBOZA ([id number]) on 11/01/2021 10:02:11 AM Referred By: MIKE Confirmed By:MIGUELITO ELIZABETH MD
[2021-10-30] MEDS: Lidocaine 5% Patch 2 PATCH TOPICAL (17:44)
[2021-10-30] MEDS: Acetaminophen 500 MG Tablet 1000 MG PO ×2 (17:47→23:45)
[2021-10-30 18:52] LABS: Troponin-I HS 11 pg/mL (3.0-78.0)
[2021-10-30] MEDS: Heparin Injection (Vial) 5,000 UNIT/ML VIAL 5000 UNIT SC (21:35)
[2021-10-30 22:20] LABS: Bedside Glucose 114 mg/dL (74-106)
[2021-10-30] MEDS: MELATONIN 3 MG TABLET PO (23:45)
[2021-10-31] VITALS (7 sets, daily range): BP systolic 106–126; BP diastolic 60–65; PULSE 64–89; RESP 18–24; TEMP 36.6–36.7; O2SAT 93–96
[2021-10-31] MEDS: Ipratropium/Albuterol Sulfate 3 ML AMPUL.NEB INHALATION ×3 (03:34→11:31)
[2021-10-31 06:25] LABS: Absolute Lymphocyte Count 1.01 X10^3/uL (0.83-4.51); Absolute Neutrophil Count 1.7 X10^3/uL (2.0-7.7); Basophil# 0.02 X10^3/uL; Basophil% 0.6 % (0-1); Eosinophil# 0.03 X10^3/uL; Eosinophils% 0.9 % (0-5); Hematocrit 37.1 % (40-54); Hemoglobin 11.7 g/dL (13.0-16.5); Lymphocyte # 1.01 X10^3/ul (0.83-4.51); Lymphocyte % 30.6 % (19-41); Mean Corp Hgb Conc 31.5 g/dL (32-36); Mean Corpuscular Hgb 26.6 pg (27.0-32.0); Mean Corpuscular Volume 84.3 fL (80-94); Mean Platelet Vol. 9.6 fl (6.2-12.0); Monocyte# 0.55 X10^3/uL; Monocyte% 16.7 % (0-10); NRBC Flagged by Analyzer 0 % (0-5); Neutrophil # 1.67 X10^3/uL (2.7-7.7); Neutrophil % 50.6 % (47-70); Platelet Count 168 K/mm3 (150-450); RBC Distribution Width CV 15.2 % (11.6-14.6); RBC Distribution Width SD 46.9 fl (35.1-43.9); White Blood Count 3.3 K/mm3 (4.4-11.0)
[2021-10-31] MEDS: Acetaminophen 500 MG Tablet 1000 MG PO (06:42)
[2021-10-31] MEDS: Heparin Injection (Vial) 5,000 UNIT/ML VIAL 5000 UNIT SC (06:42)
[2021-10-31 07:10] LABS: ALB/GLOB Ratio 1.1 RATIO (0.9-2.4); AST(SGOT) 20 U/L (15-37); Alanine Aminotransfer ALT/SGPT 31 U/L (16-61); Albumin, Serum 3.4 g/dL (3.2-5.0); Alkaline Phosphatase 83 U/L (45-117); Anion Gap 6 (5-15); BUN 18 mg/dL (7-18); BUN/Creat Ratio 12.2 RATIO (10-20); Calcium,Total 8.4 mg/dL (8.5-10.1); Chloride 109 mmol/L (98-107); Creatinine, Serum 1.48 mg/dL (0.70-1.30); EST Glomerular Filtration Rate 49 mL/min (>60); Est Glom Filt Rate - Afr Amer 60 mL/min (>60); Estimated Creatinine Clearance 48.79 ml/min; Glucose 99 mg/dL (74-106); Potassium 3.7 mmol/L (3.5-5.1); Protein, Total 6.4 g/dL (6.4-8.2); Sodium Level 140 mmol/L (136-145)
[2021-10-31 07:15] LABS: Bedside Glucose 103 mg/dL (74-106)
--- NOTE | 2021-10-31 08:24 | DCINST_ITS ---
Discharge Instructions Diet Discharge Diet: Low fat / Low cholesterol and 2000 mg Sodium Diet Activity Discharge Activity: Return to Normal Activity Weight Bearing Status: Weight bearing as tolerated Follow Up Care Test Results: Test results from this visit will be discussed in further detail at your follow- up appointment, if applicable. Discharge Plan Admission Admit Date/Time: 10/30/21 10:59 Primary Reason for Your Visit: Chest pain Attending Provider: Hellen Parker Primary Care Provider: Ani Andersen Instructions Additional Instructions / Restrictions: Continue to take Tylenol as needed for pain. Use your Lidoderm patches to apply to the affected site for pain Continue to take all your medications as prescribed Discharge Orders/Prescriptions Prescriptions: New lidocaine 5 % Adhesive Patch,Medicated 2 patch topical DAILY 7 Days Qty: 7 0RF Protocol: *Topical Application Instructions APPLICATION INSTRUCTIONS: apply to the affected left rib area Continued metformin 500 mg tablet extended release 24 hr 500 mg PO DAILY trazodone 100 mg tablet 50 mg PO QHS dicyclomine 20 mg tablet 20 mg PO BID mirtazapine 15 mg tablet 15 mg PO DAILY aripiprazole 10 mg tablet 10 mg PO DAILY icosapent ethyl [Vascepa] 1 gram capsule 2 g PO BID baclofen 10 mg tablet 10 mg PO TID sertraline 100 mg tablet 100 mg PO DAILY [employer]tri [employer] 160-9-4.8 mcg/actuation HFA aerosol inhaler 2 inh inhalation BID Qty: 10.7 5RF montelukast 10 mg tablet 10 mg PO QPM Qty: 30 3RF fenofibrate 54 mg tablet 54 mg PO DAILY Label Comments: TAKE 1 TABLET BY MOUTH EVERY DAY clopidogrel 75 mg tablet 75 mg PO DAILY olanzapine 10 mg tablet 10 mg PO DAILY donepezil 10 mg tablet 10 mg PO DAILY lamotrigine 200 mg tablet 200 mg PO DAILY atorvastatin 40 mg tablet 40 mg PO QHS losartan 100 mg tablet 50 mg PO DAILY sildenafil 50 mg tablet 50 mg PO ONCE PRN (Reason: sexual activity) Label Comments: TAKE 1 TABLET BY MOUTH TWICE A WEEK NEEDED ONE HOUR BEFORE SEXUAL ACTIVITY Rx Instructions: TAKE 1 TABLET BY MOUTH TWICE A WEEK NEEDED ONE HOUR BEFORE SEXUAL ACTIVITY potassium chloride 10 mEq tablet,ER particles/crystals 10 meq PO DAILY fexofenadine [Jeaneth Allergy] 180 mg tablet 180 mg PO DAILY ropinirole 0.5 MG tablet 0.5 mg PO QHS Label Comments: restless legs tamsulosin 0.4 MG capsule,extended release 24hr 0.4 mg PO QHS omeprazole 40 MG capsule,delayed release(DR/EC) 40 mg PO DAILY albuterol sulfate 2.5 mg /3 mL (0.083 %) solution for nebulization 2.5 mg INHALATION Q8H PRN PRN (Reason: shortness of breath or wheezing) Qty: 180 6RF nitroglycerin [Nitrostat] 0.4 mg tablet, sublingual 0.4 mg sublingual Q5-15M PRN (Reason: chest pain) Qty: 25 3RF Rx Instructions: do not exceed 3 doses per episode No Action albuterol sulfate 90 mcg/actuation HFA aerosol inhaler 2 puff INHALATION Q6H PRN PRN (Reason: Shortness Of Breath) Referrals / Follow Up: Ani Andersen DO [Primary Care Provider] - Within 1 Week Disposition Disposition (needs filled in before D/C Order can be placed): Home, Self Care
--- NOTE | 2021-10-31 08:41 | NURSING ---
Call placed to Dr Andersen's office to obtain medication list. Spoke with Nicole who will fax medication list. Only received 2 pages of 3, waiting for call back from PCP office.
--- NOTE | 2021-10-31 09:00 | DS.PCM_ITS ---
Providers Date of Admission: 10/30/21 Date of Discharge: 10/31/21 Primary Care Physician: Dr. Ani Andersen DO Reason For Visit: CHEST PAIN Diagnosis Discharge Diagnosis (1) Chest pain: Status: Acute Code(s): R07.9 - Chest pain, unspecified Medications at Discharge Home Medications ropinirole 0.5 mg tablet 0.5 mg PO QHS LEGS 04/23/16 tamsulosin 0.4 mg capsule 0.4 mg PO QHS PROSTATE 01/30/17 omeprazole 40 mg capsule,delayed release 40 mg PO DAILY GERD 07/30/19 metformin 500 mg tablet,extended release 24 hr 500 mg PO DAILY 09/01/20 aripiprazole 10 mg tablet 10 mg PO DAILY 11/09/20 baclofen 10 mg tablet 10 mg PO TID 11/09/20 dicyclomine 20 mg tablet 20 mg PO BID 11/09/20 icosapent ethyl 1 gram capsule (Vascepa) 2 g PO BID 11/09/20 mirtazapine 15 mg tablet 15 mg PO DAILY 11/09/20 trazodone 100 mg tablet 50 mg PO QHS 11/09/20 sertraline 100 mg tablet 100 mg PO DAILY 05/18/21 budesonide 160 mcg-glycopyr 9 mcg-formot 4.8 mcg/actuation HFA inhaler ([employer]) 2 inh inhalation BID #10.7 grams 07/24/21 albuterol sulfate 2.5 mg/3 mL (0.083 %) solution for nebulization 2.5 mg (3 mL) inhalation Q8H PRN PRN shortness of breath or wheezing #180 mL 08/20/21 fexofenadine 180 mg tablet (Jeaneth Allergy) 180 mg PO DAILY 09/28/21 potassium chloride 10 mEq tablet,extended release(part/cryst) 10 meq PO DAILY 09/28/21 sildenafil 50 mg tablet 50 mg PO ONCE PRN sexual activity 09/28/21 nitroglycerin 0.4 mg sublingual tablet (Nitrostat) 0.4 mg sublingual Q5-15M PRN chest pain #25 tabs 10/12/21 atorvastatin 40 mg tablet 40 mg PO QHS 10/23/21 clopidogrel 75 mg tablet 75 mg PO DAILY 10/23/21 donepezil 10 mg tablet 10 mg PO DAILY 10/23/21 fenofibrate 54 mg tablet 54 mg PO DAILY 10/23/21 lamotrigine 200 mg tablet 200 mg PO DAILY 10/23/21 losartan 100 mg tablet 50 mg PO DAILY 10/23/21 olanzapine 10 mg tablet 10 mg PO DAILY 10/23/21 montelukast 10 mg tablet 10 mg PO QPM #30 tabs 10/25/21 albuterol sulfate 90 mcg/actuation aerosol inhaler 2 puff inhalation Q6H PRN PRN Shortness Of Breath 10/31/21 lidocaine 5 % topical patch 2 patch topical DAILY 7 days #7 ea 10/31/21 Hospital Course Operations None Procedures None Summary of Care Provided Minutes Spent on Discharge: 35 Hospital Course: 71 y/o female with PMHx of CAD s/p stents, hypertension, hyperlipidemia, MONIQUE complains of chest pain that happened at rest. Patient had chest pain when he lied down to ready to quit his chest. He felt it was in both sides of his ribs. It was associated with dizziness. Patient was seen in the emergency room. Vitals were stable. EKG shows no acute ST changes. D-dimer was 0.56. Patient had reproducible chest pain. He was admitted to progressive care unit. Troponins were 9, 9 and 11. Patient was started on scheduled Tylenol as well as Lidoderm patches. His pain was improved. He was discharged home and asked to follow-up with his primary care doctor within 1 week. Physical Exam Narrative Physical exam: General: Alert, Oriented x3, Cooperative, No apparent distress HEENT: Atraumatic Oral: Moist Mucosa Neck: Supple Lungs: Clear to auscultation Cardiovascular: Reproducible bilateral chest wall tenderness, HS I+II, regular, no murmurs Abdomen: Bowel Sounds Present, Soft, Non Tender Extremities: No edema Skin: No rashes, No breakdown Neurological: Grossly intact Psych/Mental Status: Appropriate Weight / BMI Weight Weight: 80.8 kg Body Mass Index (BMI) 24.3 ABG / Lab / Microbiology Data Result Diagrams: 10/31/21 06:04 10/31/21 06:04 Laboratory: Laboratory Results - last 24 hr 10/30/21 09:00: WBC 4.9, RBC 4.52 L, Hgb 12.0 L, Hct 37.6 L, MCV 83.2, MCH 26.5 L, MCHC 31.9 L, RDW Std Deviation 45.9 H, RDW Coeff of Tad 15.0 H, Plt Count 20 3, MPV 9.8, Immature Gran % (Auto) 0.800, Neut % (Auto) 66.7, Lymph % (Auto) 16.4 L, [place] % (Auto) 15.1 H, Eos % (Auto) 0.6, Baso % (Auto) 0.4, Absolute N euts (auto) 3.3, Absolute Lymphs (auto) 0.80 L, Nucleated RBC % 0 10/30/21 09:00: Sodium 136, Potassium 3.1 L, Chloride 104, Carbon Dioxide 23.0, Anion Gap 9, BUN 14, Creatinine 1.53 H, Estim Creat Clear Calc 47.20, Est GFR (MDRD) Af Amer 58 L, Est GFR (MDRD) Non-Af 48 L, BUN/Creatinine Ratio 9.2 L, Glucose 148 H, Calcium 8.6, Troponin I High Sens 9 10/30/21 09:00: D-Dimer Quant (PE/DVT) 0.56 H* 10/30/21 11:45: Troponin I High Sens 9 10/30/21 18:10: Troponin I High Sens 11 10/30/21 21:33: POC Glucose 114 H 10/31/21 06:04: WBC 3.3 L, RBC 4.40 L, Hgb 11.7 L, Hct 37.1 L, MCV 84.3, MCH 26.6 L, MCHC 31.5 L, RDW Std Deviation 46.9 H, RDW Coeff of Tad 15.2 H, Plt Count 168, MPV 9.6, Immature Gran % (Auto) 0.600, Neut % (Auto) 50.6, Lymph % (Auto) 30.6, [place] % (Auto) 16.7 H, Eos % (Auto) 0.9, Baso % (Auto) 0.6, Absolute Neuts (auto) 1.7 L, Absolute Lymphs (auto) 1.01, Nucleated RBC % 0 10/31/21 06:04: Sodium 140, Potassium 3.7, Chloride 109 H, Carbon Dioxide 25.0, Anion Gap 6, BUN 18, Creatinine 1.48 H, Estim Creat Clear Calc 48.79, Est GFR (MDRD) Af Amer 60, Est GFR (MDRD) Non-Af 49 L, BUN/Creatinine Ratio 12.2, Glucose 99, Calcium 8.4 L, Total Bilirubin 0.20, AST 20, ALT 31, Alkaline Phosphatase 83, Total Protein 6.4, Albumin 3.4, Globulin 3.0, Albumin/Globulin Ratio 1.1 10/31/21 06:44: POC Glucose 103 Radiography Diagnostic Testing: Radiology Impression Chest X-Ray 10/30/21 09:02 IMPRESSION: No radiographic evidence of acute cardiopulmonary disease. Electronically Signed: Johnathan Moreno MD at 10:46 EDT Reading Location ID and State: [facility] / [place] Tel , Service support , D/C Instructions Discharge Diet: Low fat / Low cholesterol and 2000 mg Sodium Diet Weight Bearing Status: Weight bearing as tolerated Meaningful Use Info Meaningful Use Diagnoses (Choose all that apply): None applicable Discharge Plan Admission Admit Date/Time: 10/30/21 10:59 Primary Reason for Your Visit: Chest pain Attending Provider: Hellen Parker Primary Care Provider: Ani Andersen Instructions Additional Instructions / Restrictions: Continue to take Tylenol as needed for pain. Use your Lidoderm patches to apply to the affected site for pain Continue to take all your medications as prescribed Discharge Orders/Prescriptions Prescriptions: New lidocaine 5 % Adhesive Patch,Medicated 2 patch topical DAILY 7 Days Qty: 7 0RF Protocol: *Topical Application Instructions APPLICATION INSTRUCTIONS: apply to the affected left rib area Continued metformin 500 mg tablet extended release 24 hr 500 mg PO DAILY trazodone 100 mg tablet 50 mg PO QHS dicyclomine 20 mg tablet 20 mg PO BID mirtazapine 15 mg tablet 15 mg PO DAILY aripiprazole 10 mg tablet 10 mg PO DAILY icosapent ethyl [Vascepa] 1 gram capsule 2 g PO BID baclofen 10 mg tablet 10 mg PO TID sertraline 100 mg tablet 100 mg PO DAILY Breztri [employer]osphere 160-9-4.8 mcg/actuation HFA aerosol inhaler 2 inh inhalation BID Qty: 10.7 5RF montelukast 10 mg tablet 10 mg PO QPM Qty: 30 3RF fenofibrate 54 mg tablet 54 mg PO DAILY Label Comments: TAKE 1 TABLET BY MOUTH EVERY DAY clopidogrel 75 mg tablet 75 mg PO DAILY olanzapine 10 mg tablet 10 mg PO DAILY donepezil 10 mg tablet 10 mg PO DAILY lamotrigine 200 mg tablet 200 mg PO DAILY atorvastatin 40 mg tablet 40 mg PO QHS losartan 100 mg tablet 50 mg PO DAILY sildenafil 50 mg tablet 50 mg PO ONCE PRN (Reason: sexual activity) Label Comments: TAKE 1 TABLET BY MOUTH TWICE A WEEK NEEDED ONE HOUR BEFORE SEXUAL ACTIVITY Rx Instructions: TAKE 1 TABLET BY MOUTH TWICE A WEEK NEEDED ONE HOUR BEFORE SEXUAL ACTIVITY potassium chloride 10 mEq tablet,ER particles/crystals 10 meq PO DAILY fexofenadine [Jeaneth Allergy] 180 mg tablet 180 mg PO DAILY ropinirole 0.5 MG tablet 0.5 mg PO QHS Label Comments: restless legs tamsulosin 0.4 MG capsule,extended release 24hr 0.4 mg PO QHS omeprazole 40 MG capsule,delayed release(DR/EC) 40 mg PO DAILY albuterol sulfate 2.5 mg /3 mL (0.083 %) solution for nebulization 2.5 mg INHALATION Q8H PRN PRN (Reason: shortness of breath or wheezing) Qty: 180 6RF nitroglycerin [Nitrostat] 0.4 mg tablet, sublingual 0.4 mg sublingual Q5-15M PRN (Reason: chest pain) Qty: 25 3RF Rx Instructions: do not exceed 3 doses per episode No Action albuterol sulfate 90 mcg/actuation HFA aerosol inhaler 2 puff INHALATION Q6H PRN PRN (Reason: Shortness Of Breath) Referrals / Follow Up: Ani Andersen DO [Primary Care Provider] - Within 1 Week Disposition Disposition (needs filled in before D/C Order can be placed): Home, Self Care Charges/Coding Visit Charges OBSV E&M: 59580 Observation care discharge
--- NOTE | 2021-10-31 09:55 | PHA.DC.MC ---
Pharmacy Service has performed discharge medication reconciliation and counseling for this patient. 1. LIDOCAINE 5% PATCH 2 PATCHES TOPICAL DAILY X 7 DAYS The patient's discharge medication list was reviewed for discrepancies and discrepancies were resolved. Some home medications were unconfirmed, unsure if patient is taking all. Home Medications ropinirole 0.5 mg tablet 0.5 mg PO QHS LEGS 04/23/16 tamsulosin 0.4 mg capsule 0.4 mg PO QHS PROSTATE 01/30/17 omeprazole 40 mg capsule,delayed release 40 mg PO DAILY GERD 07/30/19 metformin 500 mg tablet,extended release 24 hr 500 mg PO DAILY 09/01/20 aripiprazole 10 mg tablet 10 mg PO DAILY 11/09/20 baclofen 10 mg tablet 10 mg PO TID 11/09/20 dicyclomine 20 mg tablet 20 mg PO BID 11/09/20 icosapent ethyl 1 gram capsule (Vascepa) 2 g PO BID 11/09/20 mirtazapine 15 mg tablet 15 mg PO DAILY 11/09/20 trazodone 100 mg tablet 50 mg PO QHS 11/09/20 sertraline 100 mg tablet 100 mg PO DAILY 05/18/21 budesonide 160 mcg-glycopyr 9 mcg-formot 4.8 mcg/actuation HFA inhaler (Mr [employer]) 2 inh inhalation BID #10.7 grams 07/24/21 albuterol sulfate 2.5 mg/3 mL (0.083 %) solution for nebulization 2.5 mg (3 mL) inhalation Q8H PRN PRN shortness of breath or wheezing #180 mL 08/20/21 fexofenadine 180 mg tablet (Jeaneth Allergy) 180 mg PO DAILY 09/28/21 potassium chloride 10 mEq tablet,extended release(part/cryst) 10 meq PO DAILY 09/28/21 sildenafil 50 mg tablet 50 mg PO ONCE PRN sexual activity 09/28/21 nitroglycerin 0.4 mg sublingual tablet (Nitrostat) 0.4 mg sublingual Q5-15M PRN chest pain #25 tabs 10/12/21 atorvastatin 40 mg tablet 40 mg PO QHS 10/23/21 clopidogrel 75 mg tablet 75 mg PO DAILY 10/23/21 donepezil 10 mg tablet 10 mg PO DAILY 10/23/21 fenofibrate 54 mg tablet 54 mg PO DAILY 10/23/21 lamotrigine 200 mg tablet 200 mg PO DAILY 10/23/21 losartan 100 mg tablet 50 mg PO DAILY 10/23/21 olanzapine 10 mg tablet 10 mg PO DAILY 10/23/21 montelukast 10 mg tablet 10 mg PO QPM #30 tabs 10/25/21 albuterol sulfate 90 mcg/actuation aerosol inhaler 2 puff inhalation Q6H PRN PRN Shortness Of Breath 10/31/21 lidocaine 5 % topical patch 2 patch topical DAILY 7 days #7 ea 10/31/21 The patient was counseled on the following discharge medications and changes in medications for homegoing were reviewed. The Reason for Use, instructions for use, and potential side effects were reviewed for all new medications. The patient's questions regarding all of their medications were answered. The patient was able to verbally demonstrate an understanding of their discharge medications. Patient counseled by pharmacy operations coordinatorPop.
[2021-10-31] MEDS: metFORMIN (XR) 500 MG Tablet PO (10:05)
[2021-10-31] MEDS: Clopidogrel Bisulfate 75 MG Tablet PO (10:06)
[2021-10-31] MEDS: Potassium Chloride Oral Tablet 10 MEQ PO (10:06)
[2021-10-31] MEDS: Pantoprazole Sodium 40 MG Tablet PO (10:06)
[2021-10-31] MEDS: Lidocaine 5% Patch 2 PATCH TOPICAL (10:08)
[2021-10-31] MEDS: Sertraline 100 MG Tablet PO (12:01)
[2021-10-31 12:25] LABS: Bedside Glucose 93 mg/dL (74-106)
== END 2021-10-31 08:16 | disposition home or self-care (01) ==
LOC: ED 11:03 → PCU 11:51
PROVIDERS: Admitting Provider Internal Medicine; Emergency Provider Emergency Medicine; PCP Internal Medicine; Visit Provider Internal Medicine
DX: R07.89 Other chest pain (principal); F03.90 Unspecified dementia, unspecified severity, without behavioral disturbance, psychotic disturbance, mood disturbance, and anxiety; J44.9 Chronic obstructive pulmonary disease, unspecified; F31.9 Bipolar disorder, unspecified; E11.9 Type 2 diabetes mellitus without complications; I25.10 Atherosclerotic heart disease of native coronary artery without angina pectoris; R11.0 Nausea; D64.9 Anemia, unspecified; I10 Essential (primary) hypertension; Z87.891 Personal history of nicotine dependence; E78.5 Hyperlipidemia, unspecified; G47.33 Obstructive sleep apnea (adult) (pediatric); Z95.5 Presence of coronary angioplasty implant and graft; N40.0 Benign prostatic hyperplasia without lower urinary tract symptoms; Z86.711 Personal history of pulmonary embolism; Z79.899 Other long term (current) drug therapy; Z79.02 Long term (current) use of antithrombotics/antiplatelets; I25.2 Old myocardial infarction; K21.9 Gastro-esophageal reflux disease without esophagitis; F41.9 Anxiety disorder, unspecified
CPT/HCPCS: 36415; 71045; 80048; 80053; 82962; 84484; 85025; 85379; 93005; 94640; 96360; 96372; 99218; 99251; 99285; J7030; G0378; G0463

== ENCOUNTER 2021-11-13 08:10 | Inpatient (IN) | payer MEDICARE, MEDICAID, SELFPAY ==
[2018-10-16 10:45] VITALS: BMI 21.8
[2021-11-13] VITALS (13 sets, daily range): BP systolic 100–121; BP diastolic 53–74; PULSE 60–81; RESP 15–18; TEMP 36.4–37; O2SAT 94–99; BMI 25.1
[2021-11-13] MEDS: Lactated Ringers 1,000 ML 15 ML IV (06:10)
[2021-11-13 07:00] LABS: Bedside Glucose 115 mg/dL (74-106)
--- NOTE | 2021-11-13 07:11 | PCM.HP.BLA ---
History and Physical Date of Admission: 11/13/21 [facility] [place] [address] OFFICE VISIT Date of Service:? 10/22/21 MR#: [id number] Acct: [id number] Name:LILLIAN CAMERON Rep #: [id number] : 1950 ? ? Provider: Dr. Miguelangel Cohn, DO Age/Sex:? 71/M ? ? [place] [facility] Status: Signed Intake Vital Signs ? 09/15/2201:00 Height 6 ft Intake Visit Reasons:?LEFT KNEE Is patient in pain?: Yes Allergies Quinolones Allergy (Unknown, Verified 10/22/21 09:25) unknownaspirin Allergy (Verified 10/22/21 09:25) Itching, Hiveslevofloxacin [From Levaquin] Allergy (Verified 10/22/21 09:25) Hives, ItchingPenicillins Allergy (Verified 10/22/21 09:25) Hives, Itching Medications ropinirole 0.5 mg tablet 0.5 mg PO QHS LEGS 04/23/16 [History Confirmed 10/22/21] tamsulosin 0.4 mg capsule 0.4 mg PO QHS PROSTATE 01/30/17 [History Confirmed 10/22/21] omeprazole 40 mg capsule,delayed release 40 mg PO DAILY GERD 07/30/19 [History Confirmed 10/22/21] metformin 500 mg tablet,extended release 24 hr 500 mg PO DAILY 09/01/20 [History Confirmed 10/22/21] aripiprazole 10 mg tablet 10 mg PO DAILY 11/09/20 [History Confirmed 10/22/21] baclofen 10 mg tablet 10 mg PO TID 11/09/20 [History Confirmed 10/22/21] dicyclomine 20 mg tablet 20 mg PO BID 11/09/20 [History Confirmed 10/22/21] icosapent ethyl 1 gram capsule (Vascepa) 2 g PO BID 11/09/20 [History Confirmed 10/22/21] mirtazapine 15 mg tablet 15 mg PO DAILY 11/09/20 [History Confirmed 10/22/21] trazodone 100 mg tablet 50 mg PO QHS 11/09/20 [History Confirmed 10/22/21] sertraline 100 mg tablet 100 mg PO DAILY 05/18/21 [History Confirmed 10/22/21] budesonide 160 mcg-glycopyr 9 mcg-formot 4.8 mcg/actuation HFA inhaler (Breztri Aerosphere) 2 inh inhalation BID #10.7 grams 07/24/21 [Rx Confirmed 10/22/21] albuterol sulfate 2.5 mg/3 mL (0.083 %) solution for nebulization 2.5 mg (3 mL) inhalation Q8H PRN PRN shortness of breath or wheezing #180 mL 08/20/21 [Rx Confirmed 10/22/21] prednisone 20 mg tablet 40 mg PO DAILY 7 days #14 tabs 08/26/21 [Rx Confirmed 10/22/21] fexofenadine 180 mg tablet (Jeaneth Allergy) 180 mg PO DAILY 09/28/21 [History Confirmed 10/22/21] furosemide 20 mg tablet 20 mg PO DAILY 09/28/21 [History Confirmed 10/22/21] potassium chloride 10 mEq tablet,extended release(part/cryst) 10 meq PO DAILY 09/28/21 [History Confirmed 10/22/21] sildenafil 50 mg tablet 50 mg PO ONCE PRN sexual activity 09/28/21 [History Confirmed 10/22/21] tramadol 50 mg tablet 50 mg PO Q12H PRN 09/28/21 [History Confirmed 10/22/21] umeclidinium 62.5 mcg/actuation blister powder for inhalation (Incruse Ellipta) 1 inh inhalation BID 09/28/21 [History Confirmed 10/22/21] nitroglycerin 0.4 mg sublingual tablet (Nitrostat) 0.4 mg sublingual Q5-15M PRN chest pain #25 tabs 10/12/21 [Rx Confirmed 10/22/21] PFSH Medical History? Anxiety Asthma Atherosclerotic heart disease of [place] coronary artery without angina pectoris Bipolar disorder Bipolar disorder BPH (benign prostatic hyperplasia) Cannabis dependence Cervical radiculitis Cervical spondylosis Chest pain Chest pain Chest tightness COPD (chronic obstructive pulmonary disease) CPAP (continuous positive airway pressure) dependence DDD (degenerative disc disease) Dementia Depression Diabetes Dyspnea on exertion Essential (primary) hypertension Fatigue Former smoker GERD (gastroesophageal reflux disease) History of pulmonary embolism Hyperlipidemia Hypertension IBS (irritable bowel syndrome) Lung nodule < 6cm on CT Migraines Myocardial infarct MONIQUE (obstructive sleep apnea) Partial tear of right rotator cuff Peptic ulcer disease Pleurisy PVCs (premature ventricular contractions) Restless leg syndrome Schizophrenia Sleep apnea Smoking greater than 40 pack years Stage 2 moderate COPD by GOLD classification Syncope and collapse Trigger finger Wheezing Surgical History? H/O cervical spine surgery H/O ventral hernia repair History of appendectomy History of appendectomy History of arthroscopy History of coronary artery stent placement (10/16/18) History of left heart catheterization (04/2016) Family History? Mother?? CAD (coronary artery disease)Sister Diabetes Social History? household members:? none housing:? house current occupational status:? disabled Smoking Status:? Former smoker quit date: 02/14/15 how long ago did patient quit smoking:? 10 years ago second hand exposure:? Yes alcohol intake:? former details:? Quit 9 years ago substance use type:? does not use caffeine:? Yes Type: coffee what type of physical activity do you participate in:? none seatbelt use:? always do you feel safe at home:? Yes HPI LEFT KNEE Details: Parts of this documentation were recorded by a scribe, this documentation accurately reflects the service provided and the decisions made by me, Dr. Miguelangel Cohn, DO 10/22/21 0920. LILLIAN GUERRERO is a 71 year old M here today for continued left knee pain. Patient states that he had an injection on 09/28/21 for his left knee which was helpful for about 3 weeks. Patient has been using voltaren gel which is a little helpful. Patient complains of pain over his medial knee. Patient has a snapping. He states that he stood up recently, and his knee gave out on him and he injured his right shoulder. Patient denies any pain medications. Patient denies any knee bracing.? Patient reportedly takes Plavix. Ortho Exam General General: Yes no acute distress Neurologic: Yes alert and Yes oriented x3 Psychologic: Yes reasonable and appropriate Left Knee Skin/Wound: Yes CDI, No ecchymosis, No erythema and No swelling Homans Sign: No Knee ROM: Yes ROM-Extension -20 to 0 and No ROM-Flexion 0-140 (80) Examination: Yes med jt line tenderness and Yes Crepitus Stability: NML: Anterior Drawer, NML: Posterior Drawer, NML: Valgus 0, NML: Valgus 30, NML: Varus 0 and NML: Varus 30 Patella Grind: Yes KNEE: pain and crepitus with patellar grind Supplemental Info 09/13/2021 MRI left knee: Moderate size horizontal undersurface tear in the middle one third of the posterior horn of the medial meniscus small oblique undersurface tear free edge of the body of the medial meniscus, diffuse greater than 50% articular cartilage loss in the medial compartment. 04/24/2021 x-ray left knee: 2 views only AP lateral demonstrate joint space narrowing medially Coding Level of Care Code Off vis,est,level 3 Diagnoses Degenerative tear of meniscus of left knee? M23.307 Osteoarthritis of left knee? M17.12 Assessment and Plan Assessment and Plan (1) Degenerative tear of meniscus of left knee: ?Status:?Acute (2) Osteoarthritis of left knee: ?Status:?Acute Plan Spoke with the patient about continued conservative versus surgical options and risk benefits and alternatives of both.? Discussed knee arthroscopy and explained that he might continue to have pain due to his osteoarthritis .Patient will need to stop his plavix 5 days prior to his surgery. We will need a medial clearance from his PCP. Patient will go home the same day as surgery and has a neighbor who will help him. Patient feels comfortable using crutches. Spoke with the patient about the importance of keeping his incisions clean post op. Reviewed the pre-operative plans with the patient. Risks and benefits of the procedure were fully explained, including but not limited to infection, neurovascular injury, continued pain, arthritis, stiffness, need for further surgery, re-injury, DVT, PE, general risks of anesthesia, and loss of limb or life. The patient understands all the risks and does wish to proceed with written consent. Follow up for 2 weeks post op or sooner if pain, swelling, numbness or associated symptoms, or concerns develop.? All questions answered. Patient in agreement of plan. 10/22/21 1028 <Electronically signed by Miguelangel Cohn DO> Date Miguelangel Cohn DO Cosigner Signature: Date (if applicable) ? CC:? Dr. Ani Andersen, DO ~ I have re-examined the patient. There are no clinical changes since date of exam
[2021-11-13] MEDS: Lidocaine 1% /Epi 1:100 (20ml) 20 ML Vial (07:47)
[2021-11-13] MEDS: Epinephrine (1 mg/ml) 1 MG/ML VIAL (07:47)
[2021-11-13] MEDS: MethylPREDNISolone Acetate 40 MG/ML Vial IM (08:08)
[2021-11-13] MEDS: Bupivacaine 0.25% 30 ML Vial (08:08)
--- NOTE | 2021-11-13 08:19 | OP.PCM_ITS ---
Operative Report Date of Procedure: 11/13/21 Preop diagnosis: Left knee medial meniscus tear DJD Postoperative diagnosis: Mostly horizontal in nature posterior horn medial meniscus tear with some component of complexity in the body, grade III chondromalacia of the medial compartment of the knee Procedure: Left knee arthroscopic partial medial meniscectomy Anesthesia: General Estimated blood loss: 5 mL Tourniquet time: 27 minutes 300 mmHg Complications: none Indication for procedure: 71-year-old male patient who is an ongoing mechanical knee pain was failed conservative treatment we did have MRI evidence of medial meniscus tear the patient did wish to proceed with an elective arthroscopic surgery to attempt to alleviate the symptoms. Risk benefits and alternatives of the procedure were reviewed including risk of bleeding infection nerve artery tissue damage need for further surgery continued pain and expected postoperative course. Procedure: The patient was met in the preoperative holding area. The operative extremity was identified by both patient and physician and family and marked. Patient was brought back to the operating room on a wheeled cart and transferred to the operating table in the supine position. Anesthesia was started. A well- padded tourniquet was placed on the operative extremity. A lower extremity leg barnard was secured to the operative extremity. The contralateral extremity was well-padded and the end of the bed was flexed to 90 degrees. The patient was prepped and draped in the usual sterile fashion. A timeout was called to ensure the proper patient, procedure, and extremity were being contemplated. 0.5% Marcaine with epinephrine was injected into the planned incisional areas under the skin only. An Esmarch was used to exsanguinate the extremity and the tourniquet was inflated. An 11 blade scalpel was used to make a stab incision in the anterior lateral portal. The arthroscope was inserted into the intercondylar notch and inflow and outflow tubes were attached. Arthroscopic visualization began. The medial compartment was entered. An 18-gauge spinal needle was used to establish the placement for anterior medial portal. An 11 blade scalpel was used to make a stab incision. Blunt probe was inserted followed by a meniscal probe. Medially noted to have degenerative changes in the medial compartment with chondral thinning of both the femur and the tibia grade 3 in addition there was horizontal tearing of the posterior horn and body of the medial meniscus with some radial component of the body the ACL was found to be intact. The lateral compartment was entered no significant cartilage or meniscal pathology The arthroscope was switched to the medial portal to complete the procedure. The medial and lateral gutters were inspected and were free of loose bodies. The patellofemoral joint was inspected grade 2 cartilage softening. There was good patellar tracking. The knee was thoroughly irrigated and drained. An intra-articular injection with 5 cc 0.5% Marcaine plain and 40 mg of Depo-Medrol was injected intra-articularly. The arthroscope was removed the portals were closed with 3-0 nylon arthroscopic stitches. Followed by Xeroform 4 x 4's ABDs web roll and an [place] wrap. The tourniquet was let down and the drapes were removed. All counts were correct. The patient was brought back to the PACU in stable condition.
[2021-11-13 08:50] LABS: Bedside Glucose 116 mg/dL (74-106)
[2021-11-13] MEDS: 0.9% Normal Saline 1,000 ML 100 ML IV ×2 (09:44→19:36)
--- NOTE | 2021-11-13 11:14 | CASEMGMT ---
Social Work SW informed pt POA is on file. Pt stated does not remember if LW was made. SW asked pt if permission to call his daughter, RADHA Sims was given. Pt agreeable. SW called Bethany who stated pt does not have LW. ROSALEE Weber
--- NOTE | 2021-11-13 11:25 | CASEMGMT ---
FRANTZ DOS SANTOS Assessment: Face to Face with pt for initial transition planning/care coordination assessment. FRANTZ DOS SANTOS introduced self and role at [facility], pt voices understanding and consents to assessment. Pt is A/O x4 and answers all questions appropriately at this time. Care providers, pharmacy, and demographics verified/updated. Admitting Dx: L knee arthroscopy, partial medial menisectomy PCP:Ganesh Specialists:Suki, ortho; Zainab, cardio; Alan, pulm Preferred Pharmacy: [facility] Retail Insurance: My Care CRSC, CRSC Prescription Benefit: yes LW/HPOA: Pt has a DPOA on file at [facility], his DPOA is his dtr Bethany Falk. Pt does not have a LW. LNOK: Bethany Falk, dtr Living Arrangements: Pt lives alone in a ground level cottage with no steps to enter. Pt reports he is typically indpendent in ADL's at home. Pt does express concern of returning home post surgery. Transportation: Pt drives self typically but states he does not have anyone who can transport him post surgery until he can drive again. Pt states his dtr works. DME/HHC/SNF: Pt has a cane and grab bar in the bathroom at home. Pt denies hx of HHC. States he has had aides in the past but not for the past year as he had them stop. Pt has been to [facility] in the past. Pt states he feels he needs to go to a facility post surgery. Pt states he snacks and eats one meal per day. Made pt aware that therapy will him and pending those evals, we will discuss what post hospitalization option will best fit him. Pt states he has a CM named Brenda Burrell. Updated SW of this as well as pt meals. Pt states no further concerns/needs. CM to follow. Advised pt to ask CM if any further question/concerns/needs arise, voices understanding. Pt Goal: SNF Plan: TBD pending therapy evals
--- NOTE | 2021-11-13 11:50 | CASEMGMT ---
Social Work SW was notified by RNCM, Mitzy, that pt has a [facility] CMBrenda. SW called [facility] to inform RAYA Burrell that pt has admitted to the hospital and had surgery. PEYTON explained pt may need SNF at discharge and Brenda voiced understanding. Brenda stated pt cancelled his aides through [facility] but is requesting someone help with cleaning. Brenda stated was looking for someone to fill this role for pt but has not ramu able to find cleaning workers at this time. Brenda also shared pt receives 7 meals a week through [facility]. Brenda asked for discharge orders to be faxed to her when pt leaves the hospital. PEYTON assured Brenda that orders for pt discharge would be faxed to her. ROSALEE Weber
--- NOTE | 2021-11-13 12:16 | CASEMGMT ---
Addendum entered by Mima Harmon 11/13/21 14:12: SW in to pt room to determine pt choice of SNF if needed. Pt reports choice of 1) [facility] and 2) [facility]. Pt stating he is tired and has been up since 3am this day. SW closed pt blind to help get sun out of pt's eyes. Pt grateful, stating he can get some sleep now. ROSALEE Weber Original Note: Social Work SW into pt room to met and discuss discharge planning. SW explained to pt that going to a SNF will depend on recommendation from PT/OT services. Pt voiced understanding. A list of SNF providers including quality and resource use data and consistent with pt's preferred geographic region, medical needs and insurance network were provided from the [employer] Guide. Pt stated would like some time to review the list. SW voiced understanding and will check back in with pt later this day. PLAN: Wait for PT/OT notes to determine if pt needs SNF or HHC ROSALEE Weber
[2021-11-13] MEDS: oxyCODONE 5 MG Tablet PO ×3 (12:24→21:20)
[2021-11-13] MEDS: Ipratropium/Albuterol Sulfate 3 ML AMPUL.NEB INHALATION ×2 (13:33→19:10)
[2021-11-13] MEDS: Baclofen 10 MG Tablet PO ×2 (13:53→21:07)
[2021-11-13] MEDS: metFORMIN (XR) 500 MG Tablet PO (17:23)
[2021-11-13] MEDS: Dicyclomine 10 MG Capsule 20 MG PO (17:23)
[2021-11-13] MEDS: Budesonide Respules 0.5 MG/2 ML AMPUL.NEB. INHALATION (19:10)
[2021-11-13] MEDS: Montelukast 10 MG Tablet PO (21:07)
[2021-11-13] MEDS: OLANZapine 10 MG Tablet PO (21:07)
[2021-11-13] MEDS: Mirtazapine 15 MG Tablet PO (21:07)
[2021-11-13] MEDS: Pramipexole Di-HCl 0.25 MG Tablet PO (21:07)
[2021-11-13] MEDS: Tamsulosin HCl 0.4 MG Capsule PO (21:07)
[2021-11-13] MEDS: Atorvastatin Calcium 40 MG Tablet PO (21:07)
[2021-11-13] MEDS: ICOSAPENT ETHYL 1 GM CAPSULE 2 GM PO (21:08)
[2021-11-14] VITALS (7 sets, daily range): BP systolic 116–144; BP diastolic 55–77; PULSE 58–70; RESP 16–18; TEMP 36.6–37; O2SAT 93–96
[2021-11-14] MEDS: oxyCODONE 5 MG Tablet PO (03:09)
[2021-11-14] MEDS: Dicyclomine 10 MG Capsule 20 MG PO ×2 (05:10→16:03)
[2021-11-14] MEDS: Baclofen 10 MG Tablet PO ×3 (05:10→20:20)
[2021-11-14] MEDS: Budesonide Respules 0.5 MG/2 ML AMPUL.NEB. INHALATION ×2 (06:46→18:53)
[2021-11-14] MEDS: Ipratropium/Albuterol Sulfate 3 ML AMPUL.NEB INHALATION ×2 (06:46→18:53)
--- NOTE | 2021-11-14 08:33 | CASEMGMT ---
Discharge Wood Mechanist Lisseth sanchez/michael community assistant sent referral to [facility] via [facility]. Will follow up. Plan: [facility], Waiting Acceptance. Lisseth Bradshaw Discharge Wood Mechanist
--- NOTE | 2021-11-14 08:36 | CASEMGMT ---
Social Work This outreach and education social worker reviewed PT notes, recommending continued therapy for patient and patient required assist of 1 person at [facility]. This outreach and education social worker met with patient in room. This outreach and education social worker broached topic of assisted placement. Patient is agreeable to assisted placement with continued first choice to be [facility] and second choice is [facility]. This outreach and education social worker [facility] [place] [place] This outreach and education social worker updated discharge director financial planning Lisseth Montanez to [facility] [place] [place] PLAN: [facility] pending acceptance. Will continue to follow. Fabio Perez MSW, OUMOU-S
[2021-11-14] MEDS: Potassium Chloride Oral Tablet 10 MEQ PO (08:44)
[2021-11-14] MEDS: lamoTRIgine 100 MG Tablet 200 MG PO (08:45)
[2021-11-14] MEDS: Loratadine 10 MG Tablet PO (08:45)
[2021-11-14] MEDS: Losartan Potassium 50 MG Tablet PO (08:45)
[2021-11-14] MEDS: Pantoprazole Sodium 40 MG Tablet PO (08:45)
[2021-11-14] MEDS: ARIPiprazole 10 MG Tablet PO (08:45)
[2021-11-14] MEDS: ICOSAPENT ETHYL 1 GM CAPSULE 2 GM PO ×2 (08:46→20:21)
[2021-11-14] MEDS: Fenofibrate 48 MG Tablet PO (08:46)
[2021-11-14] MEDS: Sertraline 100 MG Tablet PO (08:46)
--- NOTE | 2021-11-14 11:40 | CASEMGMT ---
Social Work Patient request to speak with this neonatal social worker. This neonatal social worker to patient room. Patient has changed first choice option and has now put [facility] for first choice. This neonatal social worker updated discharge vice president planning, Lisseth. PLAN: [facility], pending acceptance. Fabio BERRIOS, OUMOU-S
--- NOTE | 2021-11-14 11:45 | CASEMGMT ---
[facility]charge [facility] Director Dixie reached out. Patient has been accepted at [facility]. Pre-cert has been started. PEYTON Mckinley notified. Plan: [facility], Waiting Pre-cert Lisseth Bradshaw Discharge Senior Center Director
--- NOTE | 2021-11-14 11:59 | PCM.PN.ORT ---
Subjective Subjective Seen and examined doing well pain controlled denies fever chills nausea vomiting shortness of breath or chest pain, He did have some dizziness when standing yesterday with physical therapy has not had any today. Objective Data Objective Data Vital Signs: Vital Signs Temp Pulse Resp BP Pulse Ox O2 Del Method 98 F 70 18 124/62 H 94 Room Air 11/14/21 08:40 11/14/21 08:40 11/14/21 08:40 11/14/21 08:40 11/14/21 09:27 11/14/21 08:40 Oxygen Delivery Method Room Air Weight: 185 lb 3.013 oz Body Mass Index (BMI) 25.1 Intake & Output: Intake and Output for Last 24 Hours 11/12/21 11/13/21 11/14/21 23:59 23:59 23:59 Intake Total 1726.67 / 1726.67 1371.67 / 1371.67 Output Total 650 / 650 1450 / 1450 Balance 1076.67 / 1076.67 -78.33 / -78.33 Physical Exam Const alert, oriented x3 and no apparent distress General Appearance: cooperative Extremity Extremity Narrative: Dressing clean dry intact compartments soft neurovascular intact left lower extremity EHL tibialis anterior gastrocsoleus intact sensation to light touch palpable pedal pulses Assessment & Plan Assessment/Plan (1) H/O left knee surgery: PLAN: Postop day #1 left knee arthroscopy partial medial meniscectomyChondroplasty partial synovectomy, Due to patient's age debility and medical comorbidities patient requiresSkilled nursing facility prior to returning home PT OT weightbearing as tolerated Dressing should be left on for 48 hours postop then removed prior to for shower then may begin showering with antibacterial soap daily over the incisional areas should pat dry and replace with dry Band-Aids and cleaned dailyAnd replace daily Follow-up in the office for 2 weeks for suture removal and wound check or sooner if there is any concern
--- NOTE | 2021-11-14 12:05 | DCINST_ITS ---
Discharge Instructions Diet Discharge Diet: No restrictions Dressing / Incision Call your doctor if you observe: Shortness of breath and Chest pain Additional Dressing/Incision Instructions:: Ice and elevate next 72 hours .keep dressing on clean and dry for 48 hours then may remove begin showering daily but do not submerge in tub or pool. After shower may apply Band-Aids . Encourage knee range of motion weightbearing as tolerated, use crutches until confident in knee then may discontinue. No strenuous activity. When not ambulating keep iced and elevated next 72 hours. Do not mix pain medication with recreational drugs or alcohol only take as prescribed can be addictive and abusive, call with any questions or concerns. Follow Up Care Please Follow Up With: Miguelangel Cohn DO When: 2 weeks Test Results: Test results from this visit will be discussed in further detail at your follow- up appointment, if applicable. Discharge Plan Admission Admit Date/Time: 11/13/21 08:10 Attending Provider: Miguelangel Cohn Primary Care Provider: Ani Andersen Discharge Orders/Prescriptions Prescriptions: New oxycodone 5 mg tablet 5 mg PO Q4H PRN (Reason: pain) 5 Days Qty: 30 0RF Continued metformin 500 mg tablet extended release 24 hr 500 mg PO DAILY trazodone 100 mg tablet 50 mg PO QHS dicyclomine 20 mg tablet 20 mg PO BID mirtazapine 15 mg tablet 15 mg PO QHS aripiprazole 10 mg tablet 10 mg PO DAILY icosapent ethyl [Vascepa] 1 gram capsule 2 g PO BID baclofen 10 mg tablet 10 mg PO TID sertraline 100 mg tablet 100 mg PO DAILY Hermelinda Aerosphere 160-9-4.8 mcg/actuation HFA aerosol inhaler 2 inh inhalation BID Qty: 10.7 5RF montelukast 10 mg tablet 10 mg PO QPM Qty: 30 3RF fenofibrate 54 mg tablet 54 mg PO DAILY Label Comments: TAKE 1 TABLET BY MOUTH EVERY DAY clopidogrel 75 mg tablet 75 mg PO DAILY olanzapine 10 mg tablet 10 mg PO QHS donepezil 10 mg tablet 10 mg PO DAILY lamotrigine 200 mg tablet 200 mg PO DAILY atorvastatin 40 mg tablet 40 mg PO QHS losartan 100 mg tablet 50 mg PO DAILY sildenafil 50 mg tablet 50 mg PO ONCE PRN (Reason: sexual activity) Label Comments: TAKE 1 TABLET BY MOUTH TWICE A WEEK NEEDED ONE HOUR BEFORE SEXUAL ACTIVITY Rx Instructions: TAKE 1 TABLET BY MOUTH TWICE A WEEK NEEDED ONE HOUR BEFORE SEXUAL ACTIVITY potassium chloride 10 mEq tablet,ER particles/crystals 10 meq PO DAILY fexofenadine [Jeaneth Allergy] 180 mg tablet 180 mg PO DAILY ropinirole 0.5 MG tablet 0.5 mg PO QHS Label Comments: restless legs tamsulosin 0.4 MG capsule,extended release 24hr 0.4 mg PO QHS omeprazole 40 MG capsule,delayed release(DR/EC) 40 mg PO DAILY lidocaine 5 % Adhesive Patch,Medicated 2 patch topical DAILY 7 Days Qty: 7 0RF Protocol: *Topical Application Instructions APPLICATION INSTRUCTIONS: apply to the affected left rib area albuterol sulfate 90 mcg/actuation HFA aerosol inhaler 2 puff INHALATION Q6H PRN PRN (Reason: Shortness Of Breath) albuterol sulfate 2.5 mg /3 mL (0.083 %) solution for nebulization 2.5 mg INHALATION Q8H PRN PRN (Reason: shortness of breath or wheezing) Qty: 180 6RF nitroglycerin [Nitrostat] 0.4 mg tablet, sublingual 0.4 mg sublingual Q5-15M PRN (Reason: chest pain) Qty: 25 3RF Rx Instructions: do not exceed 3 doses per episode Referrals / Follow Up: Ani Andersen DO [Primary Care Provider] -
--- NOTE | 2021-11-14 12:12 | CASEMGMT ---
Addendum entered by Arlen Perez 11/14/21 12:21: Dr. Lieberman updated on below plan and is agreeable. Dr. Lieberman communicating that patient is medically cleared. This social media director provided Dr. Lieberman with Transfer to Extended Care form. Dr. Lieberman completed Transfer to extended care form and a signed medication list and placed with patient chart. Original Note: Social Work This social media director updated patient on patient being accepted to [facility] pending pre-cert. Patient voiced understanding. This social media director inquired if there is a support person that patient would like this social media director to update on discharge planning. Patient denied and states I will contact my family. This social media director voided understanding and did attempt to explain to patient the value of having family/supports updated on medical plan of care, patient voiced understanding and continues to decline for this social media director to contact family. PLAN: [facility], pending pre-cert. Will continue to follow. Fabio BERRIOS, JOCE
[2021-11-14] MEDS: metFORMIN (XR) 500 MG Tablet PO (16:07)
[2021-11-14] MEDS: oxyCODONE 5 MG Tablet 10 MG PO ×2 (16:10→20:20)
[2021-11-14] MEDS: 0.9% Saline Lock 10 ML Syringe IV (18:34)
[2021-11-14] MEDS: Montelukast 10 MG Tablet PO (20:19)
[2021-11-14] MEDS: Atorvastatin Calcium 40 MG Tablet PO (20:20)
[2021-11-14] MEDS: Pramipexole Di-HCl 0.25 MG Tablet PO (20:20)
[2021-11-14] MEDS: Mirtazapine 15 MG Tablet PO (20:20)
[2021-11-14] MEDS: Tamsulosin HCl 0.4 MG Capsule PO (20:21)
[2021-11-14] MEDS: OLANZapine 10 MG Tablet PO (20:22)
[2021-11-15] VITALS (9 sets, daily range): BP systolic 114–130; BP diastolic 62–70; PULSE 60–88; RESP 16–24; TEMP 36.4–37; O2SAT 93–98
[2021-11-15] MEDS: oxyCODONE 5 MG Tablet 10 MG PO (03:05)
[2021-11-15] MEDS: Dicyclomine 10 MG Capsule 20 MG PO ×2 (05:14→17:03)
[2021-11-15] MEDS: Baclofen 10 MG Tablet PO ×3 (05:14→20:59)
[2021-11-15] MEDS: Ipratropium/Albuterol Sulfate 3 ML AMPUL.NEB INHALATION ×3 (07:21→19:17)
[2021-11-15] MEDS: Budesonide Respules 0.5 MG/2 ML AMPUL.NEB. INHALATION ×2 (07:21→19:17)
[2021-11-15] MEDS: ICOSAPENT ETHYL 1 GM CAPSULE 2 GM PO ×2 (10:11→20:59)
[2021-11-15] MEDS: Pantoprazole Sodium 40 MG Tablet PO (10:12)
[2021-11-15] MEDS: lamoTRIgine 100 MG Tablet 200 MG PO (10:12)
[2021-11-15] MEDS: Fenofibrate 48 MG Tablet PO (10:12)
[2021-11-15] MEDS: Potassium Chloride Oral Tablet 10 MEQ PO (10:12)
[2021-11-15] MEDS: Loratadine 10 MG Tablet PO (10:12)
[2021-11-15] MEDS: Losartan Potassium 50 MG Tablet PO (10:13)
[2021-11-15] MEDS: Sertraline 100 MG Tablet PO (10:13)
[2021-11-15] MEDS: ARIPiprazole 10 MG Tablet PO (10:13)
[2021-11-15] MEDS: Albuterol 2.5 MG/3 ML VIAL.NEB. INHALATION (10:41)
[2021-11-15] MEDS: oxyCODONE 5 MG Tablet PO ×2 (13:33→18:44)
[2021-11-15] MEDS: metFORMIN (XR) 500 MG Tablet PO (17:03)
[2021-11-15] MEDS: Tamsulosin HCl 0.4 MG Capsule PO (20:59)
[2021-11-15] MEDS: OLANZapine 10 MG Tablet PO (20:59)
[2021-11-15] MEDS: Pramipexole Di-HCl 0.25 MG Tablet PO (20:59)
[2021-11-15] MEDS: Mirtazapine 15 MG Tablet PO (20:59)
[2021-11-15] MEDS: Montelukast 10 MG Tablet PO (20:59)
[2021-11-15] MEDS: Atorvastatin Calcium 40 MG Tablet PO (20:59)
[2021-11-16 03:54] VITALS: BP 151/79; PULSE 62; RESP 18; TEMP 36.4; O2SAT 99
[2021-11-16] MEDS: Baclofen 10 MG Tablet PO (05:51)
[2021-11-16] MEDS: Dicyclomine 10 MG Capsule 20 MG PO (05:51)
[2021-11-16] MEDS: Budesonide Respules 0.5 MG/2 ML AMPUL.NEB. INHALATION (06:49)
[2021-11-16] MEDS: Ipratropium/Albuterol Sulfate 3 ML AMPUL.NEB INHALATION (06:49)
[2021-11-16 06:51] VITALS: PULSE 63; RESP 16
[2021-11-16] MEDS: oxyCODONE 5 MG Tablet 10 MG PO (06:57)
--- NOTE | 2021-11-16 07:35 | PN.ORTHO_ITS ---
Subjective Subjective Patient seen and examined he is doing well in regards to his left knee. He is still waiting on precertification for long-term placement. Objective Data Objective Data Vital Signs: Vital Signs Temp Pulse Resp BP Pulse Ox O2 Del Method 97.6 F L 63 16 151/79 H 99 Room Air 11/16/21 03:54 11/16/21 06:51 11/16/21 06:51 11/16/21 03:54 11/16/21 03:54 11/16/21 03:56 Oxygen Delivery Method Room Air Weight: 185 lb 3.013 oz Body Mass Index (BMI) 25.1 Intake & Output: Intake and Output for Last 24 Hours 11/14/21 11/15/21 11/16/21 23:59 23:59 23:59 Intake Total 1371.67 / 1371.67 300 / 300 Output Total 2650 / 2650 625 / 625 1000 / 1000 Balance -1278.33 / -1278.33 -625 / -625 -700 / -700 Physical Exam Const alert, oriented x3 and no apparent distress Extremity Extremity Narrative: Left knee dressing clean dry intact compartments soft neurovascular intact left lower extremity Assessment & Plan Assessment/Plan (1) H/O left knee surgery: PLAN: Postop day #3 left knee arthroscopy partial medial meniscectomyChondroplasty partial synovectomy, Due to patient's age debility and medical comorbidities patient requiresSkilled nursing facility prior to returning home PT OT weightbearing as tolerated Dressing should be changed today may begin showering with antibacterial soap daily over the incisional areas should pat dry and replace with dry Band-Aids and cleaned dailyAnd replace daily Follow-up in the office for 2 weeks for suture removal and wound check or sooner if there is any concern
--- NOTE | 2021-11-16 09:45 | CASEMGMT ---
Discharge Importer Exporter Dixie reached out from [facility]. Pre-cert has been obtained. PEYTON Guillermo notified. Plan: [facility], When medically ready Lisseth Bradshaw Discharge Importer Exporter
[2021-11-16 09:48] VITALS: BP 102/56; PULSE 87; RESP 16; TEMP 36.5; O2SAT 92
--- NOTE | 2021-11-16 10:19 | CASEMGMT ---
Addendum entered by Mima Harmon 11/16/21 10:33: PEYTON faxed discharge orders to [facility]. ROSALEE Weber Original Note: Social Work SW in to pt room to inform pt he has obtained insurance precert and can discharge to [facility] today. Pt voiced understanding, expressed happiness. Sw inquired if pt has family that SW can call to update on his discharge plan. Pt declined, stated there is no one to call and that he will update who needs to know if needed. SW encourged pt to ask for SW if changes mind on this. Dispo: [facility], skilled level of care ROSALEE Weber
--- NOTE | 2021-11-16 10:33 | PHA.DC.MR ---
Pharmacy Service has performed discharge medication reconciliation for this patient Upon transfer to [facility]. Home Medications ropinirole 0.5 mg tablet 0.5 mg PO QHS LEGS 04/23/16 tamsulosin 0.4 mg capsule 0.4 mg PO QHS PROSTATE 01/30/17 omeprazole 40 mg capsule,delayed release 40 mg PO DAILY GERD 07/30/19 metformin 500 mg tablet,extended release 24 hr 500 mg PO DAILY 09/01/20 aripiprazole 10 mg tablet 10 mg PO DAILY 11/09/20 baclofen 10 mg tablet 10 mg PO TID 11/09/20 dicyclomine 20 mg tablet 20 mg PO BID 11/09/20 icosapent ethyl 1 gram capsule (Vascepa) 2 g PO BID 11/09/20 mirtazapine 15 mg tablet 15 mg PO QHS 11/09/20 trazodone 100 mg tablet 50 mg PO QHS 11/09/20 sertraline 100 mg tablet 100 mg PO DAILY 05/18/21 budesonide 160 mcg-glycopyr 9 mcg-formot 4.8 mcg/actuation HFA inhaler ([employer]) 2 inh inhalation BID #10.7 grams 07/24/21 albuterol sulfate 2.5 mg/3 mL (0.083 %) solution for nebulization 2.5 mg (3 mL) inhalation Q8H PRN PRN shortness of breath or wheezing #180 mL 08/20/21 fexofenadine 180 mg tablet (Jeaneth Allergy) 180 mg PO DAILY 09/28/21 potassium chloride 10 mEq tablet,extended release(part/cryst) 10 meq PO DAILY 09/28/21 sildenafil 50 mg tablet 50 mg PO ONCE PRN sexual activity 09/28/21 nitroglycerin 0.4 mg sublingual tablet (Nitrostat) 0.4 mg sublingual Q5-15M PRN chest pain #25 tabs 10/12/21 atorvastatin 40 mg tablet 40 mg PO QHS 10/23/21 clopidogrel 75 mg tablet 75 mg PO DAILY 10/23/21 donepezil 10 mg tablet 10 mg PO DAILY 10/23/21 fenofibrate 54 mg tablet 54 mg PO DAILY 10/23/21 lamotrigine 200 mg tablet 200 mg PO DAILY 10/23/21 losartan 100 mg tablet 50 mg PO DAILY 10/23/21 olanzapine 10 mg tablet 10 mg PO QHS 10/23/21 montelukast 10 mg tablet 10 mg PO QPM #30 tabs 10/25/21 albuterol sulfate 90 mcg/actuation aerosol inhaler 2 puff inhalation Q6H PRN PRN Shortness Of Breath 10/31/21 lidocaine 5 % topical patch 2 patch topical DAILY 7 days #7 ea 10/31/21 oxycodone 5 mg tablet 5 mg PO Q4H PRN pain 5 days #30 tabs 11/14/21 The patient's discharge medication list was reviewed for discrepancies and discrepancies were resolved.
[2021-11-16] MEDS: lamoTRIgine 100 MG Tablet 200 MG PO (10:48)
[2021-11-16] MEDS: ICOSAPENT ETHYL 1 GM CAPSULE 2 GM PO (10:48)
[2021-11-16] MEDS: Pantoprazole Sodium 40 MG Tablet PO (10:49)
[2021-11-16] MEDS: ARIPiprazole 10 MG Tablet PO (10:49)
[2021-11-16] MEDS: Fenofibrate 48 MG Tablet PO (10:49)
[2021-11-16] MEDS: Potassium Chloride Oral Tablet 10 MEQ PO (10:49)
[2021-11-16] MEDS: Loratadine 10 MG Tablet PO (10:49)
[2021-11-16] MEDS: Sertraline 100 MG Tablet PO (10:50)
[2021-11-16] MEDS: Losartan Potassium 50 MG Tablet PO (10:50)
--- NOTE | 2021-11-16 11:51 | CASEMGMT ---
Social Work SW set up wheelchair transportation through [facility] for 1pm. SW completed 7000 convalescent form in [employer] system. SW informed pt and pt nurse of transport time. Faxed discharge orders to [facility]. Placed copies of pt discharge orders on pt chart, originals with pt. PEYTON left message for Dixie at [facility] to inform of transport/discharge time for pt. Dispo: [facility], for convalescent, skilled level of care. ROSALEE Weber
--- NOTE | 2021-11-16 12:30 | NURSING ---
report called to dory vyas at [facility]
[2021-11-16 12:41] VITALS: BP 128/71; PULSE 72; RESP 16; TEMP 36.4; O2SAT 95
[2021-11-16] MEDS: oxyCODONE 5 MG Tablet PO (12:46)
== END 2021-11-16 13:23 | disposition skilled nursing facility (03) | DRG 489 ==
LOC: SDC 08:37 → MS3 08:37
PROVIDERS: Admitting Provider Orthopaedic Surgery; PCP Internal Medicine; Referring Provider Orthopaedic Surgery; Visit Provider Orthopaedic Surgery
PROC: 0SBD4ZZ Excision of Left Knee Joint, Percutaneous Endoscopic Approach (ICD-10-PCS; CPT 29870; principal; 2021-11-13 07:10)
DX: S83.232A Complex tear of medial meniscus, current injury, left knee, initial encounter (principal); E11.9 Type 2 diabetes mellitus without complications; F31.9 Bipolar disorder, unspecified; J44.9 Chronic obstructive pulmonary disease, unspecified; I25.10 Atherosclerotic heart disease of native coronary artery without angina pectoris; M17.12 Unilateral primary osteoarthritis, left knee; I10 Essential (primary) hypertension; G47.33 Obstructive sleep apnea (adult) (pediatric); I25.2 Old myocardial infarction; M23.307 Other meniscus derangements, unspecified meniscus, left knee; Z87.891 Personal history of nicotine dependence; M94.262 Chondromalacia, left knee
CPT/HCPCS: 82962; 87426; 94640; 97110; 97116; 97162; 97166; 97530; 97535; 99251; J7030; J7120; A4216; G0463; J2405

== ENCOUNTER → 2022-01-12 | Outpatient (CLI) | payer MEDICARE, MEDICAID, SELFPAY ==
[2018-10-16 10:45] VITALS: BMI 21.8
--- NOTE | 2022-01-12 07:51 | MRI_ITS ---
STUDY: MRI RIGHT SHOULDER REASON FOR EXAM: Male, 71 years old. Pain. TECHNIQUE: Standardized fat and water weighted pulse sequences were obtained in all 3 orthogonal planes. COMPARISON: X-ray December 10, 2021 FINDINGS: There is 1.0 cm full-thickness tear of the distal supraspinatus tendon, series 5 images 03/05 and . Normal infraspinatus tendon. Normal subscapularis tendon. Normal teres minor tendon. Normal supraspinatus muscle. Normal infraspinatus muscle. Normal subscapularis muscle. Normal teres minor muscle. Normal glenohumeral articulation. Normal humeral head and visualized proximal humerus. Normal biceps labral complex. There is tendinosis with thickening of the biceps tendon, but without a demonstrated tear. There is tear of the superior labrum adjacent to the biceps anchor, series 4 image 03/05. Normal capsulo- ligamentous complex. Normal rotator interval. 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 There is a Type II morphology (curved), with a neutral orientation. There is mild fluid distention of the subacromial bursa, consistent with mild subacromial-subdeltoid bursitis. Normal visualized coracohumeral and coracoacromial ligaments. Normal quadrilateral space. Normal axillary space. Normal deltoid muscle. Normal trapezius muscle. MRI/Upper Ext Joint Only(Routine) IMPRESSION: Rotator cuff tear supraspinatus tendon. SLAP lesion and tear of the superior labrum. Tendinosis of the proximal long head of the biceps tendon. Acromioclavicular arthrosis with impingement. Joint effusion. Subacromial subdeltoid bursitis. Electronically Signed: Juan Antonio Upton MD at 14:57 EDT ,
== END | disposition home or self-care (01) ==
LOC: MRI 07:51
PROVIDERS: PCP Internal Medicine; Visit Provider Orthopaedic Surgery
DX: M75.100 Unspecified rotator cuff tear or rupture of unspecified shoulder, not specified as traumatic (principal)
CPT/HCPCS: 73221

== ENCOUNTER → 2022-01-22 | Outpatient (CLI) | payer MEDICARE, SELFPAY ==
[2018-10-16 10:45] VITALS: BMI 21.8
[2022-01-22 17:54] LABS: Microalbumin:Creatinine Ratio 80.2 mg/g CRE (<30 mg/g CRE)
== END | disposition home or self-care (01) ==
LOC: US 15:02
PROVIDERS: PCP Internal Medicine; Visit Provider Internal Medicine Nephrology
DX: E11.22 Type 2 diabetes mellitus with diabetic chronic kidney disease (principal); E11.40 Type 2 diabetes mellitus with diabetic neuropathy, unspecified; N18.31 Chronic kidney disease, stage 3a
CPT/HCPCS: 82043; 82570

== ENCOUNTER 2022-01-28 11:00 | Outpatient (RCR) | payer MEDICARE, MEDICAID, SELFPAY ==
[2018-10-16 10:45] VITALS: BMI 21.8
--- NOTE | 2021-12-24 10:30 | HP.PTEVAL ---
Patient's Visit Information LILLIAN GUERRERO is a 71 year old M referred to Physical Therapy by Dr. Ani Andersen DO with a diagnosis of L meniscal debridement and R shoulder pain. Date of Evaluation: 12/18/21 Physical Therapist: Nate Hunter DPT - Visit Plan Frequency: 2x /Week Duration: 6 Weeks Plan: Start with L LE strengthening, avoid excessive step ups and deep squatting. Progress gait to SPC. Add in R shoulder PROM and AAROM as tolerated. Will need to start with pullies and passive as he was not tolerating much R shoulder AROM. After a week consider adding in shoulder isometrics as tolerated. May use US to calm shoulder symptoms. - Subjective Pt. is here today for his initial evaluation with diagnosis of L meniscal debridement and R shoulder pain. Pt. had DOS: 11/13/21. [facility]. Pt. arrives today with use of FWW. Pt. report very minimal knee pain, but is has increased R shoulder pain. He did fall on his shoulder ~3 months ago and has been painful every since. He reports his shoulder is worse than his knee right now. Minimal issues with walking, mild increase in symptoms with stairs. His shoulder is stopping him from sleeping well and reports he can barely use it. He is suppose to see physician later this week about his shoulder. Pt. denies N/T, but does have pain coming down his arm to his deltoid region and into his elbow at times. He reports difficulty with any lifting. Pt. is hopeful to reduce symptoms in order to get back to all household and recreational activities without limitations. - Pain R shoulder Pain Intensity (Out of 10): 5 Pain Intensity Range: 3, 7 L knee Pain Intensity (Out of 10): 1 Pain Intensity Range: 0, 4 - Objective POSTURE: Pt. has decent posture in stance. Slight wt. shift to R side. Pt. has FH posture and R arm in guarded posture. Normal VINCENT noted. PALPATION: Pt. has well healing incisions on L knee. Mild edema noted, but minimal. Pt. has increased tenderness of R sub acromial space, increased pain along anterior/lateral subacromial space and bicipital groove. NEURO: Pt. has normal sensation to light touch, throughout extremities x4. Pt. has normal DTR of BUEs. ROM: L knee: 0-0-125deg actively, no pain noted. He did report tightness at end ranges, but able to get to good motion. R shoulder: AROM: flexion 90deg, abd 55deg, ext full, functional ER C1, functional IR L5 Increased pain with all motions. PROM: flexion 155deg, abd 150deg, ER at 90deg 60deg, IR at 90deg 30deg. MMT: LLE: ankle 5/5 throughout; knee: extension 5-/5, flexion 5-/5; hip: flexion 4+/5, abd 4+/5, ext 5/5. RLE: 5/5 throughout. L shoulder: 5/5 throughout; R shoulder: flexion 3/5, abd 3/5. ER 3+/5, IR 4+/5; ext 4+/5. Pt. has increased pain with all MMTing throughout. GAIT: Pt. ambulates well with FWW, then well with cane as well. STAIRS: Pt. is able to complete with 1 HR with reciprocal pattern without increase in pain. - Balance/Special Test Scores Functional Gait Assessment Score: 28 % Disability: 6.6700 CATSIB Score (Max score 120 seconds): 104 Lower Extremity Functional Score: 11 Quick DASH Score: 52.2725 TUG Test Time Seconds: 8.7 30 Second Chair Rise Test Seconds: 16 - Goals Goal 1:: LTG: Pt. to be I with HEP. Goal Time Frame: 4-6 Weeks Goal 2:: STG: Pt. to ambulate without AD with normal gait pattern I. Goal Time Frame: 2-4 Weeks Goal 3:: LTG: Pt. to have 5/5 strength throughout LLE. Goal Time Frame: 4-6 Weeks Goal 4:: LTG: Pt. to have symmetrical AROM of R shoulder to L side without increase in symptoms. Goal Time Frame: 4-6 Weeks Goal 5:: LTG: Pt. to have increased R shoulder strength by 1/2 grade of all effected musculature. Goal Time Frame: 4-6 Weeks - Rehabilitation Potential Physical Therapy Diagnosis: Pt. has signs and symptoms consistent with recovery from meniscal surgery and signs of a R RTC pathology. Due to his mech of injury, and symptoms I would consider RTC tear. His knee is doing very well. He would benefit from PT to work on his LE strengthening and R shoulder ROM and progress back to gait without AD. Rehabilitation Potential: Excellent - Anticipated Interventions Patient/Client Instruction: Educate patient on: Condition, Plan of Care, Risk Factors, Benefits of Fitness Program For the Purpose of:: To foster healthy habits, To improve decision making, To facilitate caregiver knowledge, To improve self management, To prevent re-injury, To improve ability to perform tasks related to life management Therapeutic Exercise to Include: Strength training, Power training, Balance training, Coordination, Postural training, Gait and locomotor training, Passive ROM, Active ROM, Scapular Strength/Stabilization For the Purpose of:: To decrease pain, To increase ROM, To improve nutrient delivery to tissue, To increase oxygenation perfusion, To improve muscle performance and motor function, To improve ability to perform ADL's, To increase tolerance to activity/condition/position, To improve performance and independence with ADL's, To decrease level of supervision to perform tasks, To improve gait and locomotor functions, To improve health of tissue, To decrease soft tissue restriction Manual Therapy Techniques to Include: Mobilization For the Purpose of:: To decrease pain, To decrease swelling/inflammation, To increase ROM Cryotherapy (ice pack, ice massage): Yes Ultrasound (thermal/non thermal): Yes Thank you for the opportunity to evaluate your patient. For Medicare and Medicare HMO plans, please review the plan of care and approve it. It will need to be FAXED BACK to us at [phone] for Medicare purposes. For Medicare only, by signing this I certify the plan of care. Please let me know if there are questions or concerns regarding this plan of care. Physician Signature: Date:
== END 2022-01-28 19:00 | disposition home or self-care (01) ==
LOC: PT 11:00
PROVIDERS: PCP Internal Medicine; Referring Provider Internal Medicine; Visit Provider Internal Medicine
DX: M25.811 Other specified joint disorders, right shoulder (principal)
CPT/HCPCS: 97035; 97110; 97162

== ENCOUNTER → 2022-01-31 | Outpatient (CLI) | payer MEDICARE, MEDICAID, SELFPAY ==
[2018-10-16 10:45] VITALS: BMI 21.8
[2022-01-30 10:41] LABS: AST(SGOT) 19 U/L (15-37); Alanine Aminotransfer ALT/SGPT 34 U/L (16-61); Alkaline Phosphatase 102 U/L (45-117); Bilirubin, Direct 0.13 mg/dL (0.00-0.30); Cholesterol 121 mg/dL (200); High Density Lipoprotein 44 mg/dL; Triglycerides 190 mg/dL; Very Low Density Lipoprotein 38 mg/dL (5-40)
--- NOTE | 2022-01-31 14:50 | US_ITS ---
INDICATION: CKD 3 EXAMINATION: Ultrasound US Kidney(s) complete (eg, kidneys and bladder) TECHNIQUE: Bond scale and color doppler images were obtained of the kidneys. COMPARISON: None. FINDINGS: RIGHT KIDNEY: 11.3 x 6.0 x 5.6 cm. There is no hydronephrosis. No shadowing calculus, focal lesion or perinephric collection is demonstrated. 1.5 cm upper pole cyst. LEFT KIDNEY: 11.0 x 6.3 x 4.6 cm. There is no hydronephrosis. No shadowing calculus, focal lesion or perinephric collection is demonstrated. URINARY BLADDER: Nondistended. US/Kidney and Bladder IMPRESSION: No hydronephrosis bilaterally. Electronically Signed: Anjle Sandoval MD at 23:26 EST ,
== END | disposition home or self-care (01) ==
LOC: US 14:48
PROVIDERS: Nurse Practitioner Family; PCP Internal Medicine; Referring Provider Internal Medicine Nephrology; Visit Provider Internal Medicine Nephrology
DX: E78.5 Hyperlipidemia, unspecified (principal); N18.31 Chronic kidney disease, stage 3a; I25.10 Atherosclerotic heart disease of native coronary artery without angina pectoris
CPT/HCPCS: 76770; 80061; 80076

== ENCOUNTER 2022-02-05 13:25 | Observation (INO) | payer MEDICARE, MEDICAID, SELFPAY ==
[2018-10-16 10:45] VITALS: BMI 21.8
[2022-01-30 10:39] LABS: Hemoglobin A1c 5.8 % (3.8-5.6)
[2022-02-05] VITALS (12 sets, daily range): BP systolic 133–152; BP diastolic 69–84; PULSE 67–78; RESP 13–20; TEMP 36.2–37.1; O2SAT 92–100; BMI 25.9
[2022-02-05] MEDS: Lactated Ringers 1,000 ML 15 ML IV ×2 (10:20→12:15)
--- NOTE | 2022-02-05 10:32 | HP.PCM_ITS ---
History and Physical Date of Admission: 02/05/22 [facility] [address] [place] [address] OFFICE VISIT Date of Service:? 01/16/22 MR#: [id number] Acct: [id number] Name:LILLIAN CAMERON Rep #: [id number] : 1950 ? ? Provider: Dr. Miguelangel Cohn, DO Age/Sex:? 71/M ? ? Location: [facility] [place] Status: Signed Intake Vital Signs ? 11/13/2205:34 Height 6 ft Intake Visit Reasons:?RIGHT SHOULDER Chief Complaint: right shoulder Is patient in pain?: Yes Pain scale (1-10): 9 Allergies Quinolones Allergy (Unknown, Verified 12/21/21 08:35) unknownaspirin Allergy (Verified 12/21/21 08:35) Itching, Hiveslevofloxacin [From Levaquin] Allergy (Verified 12/21/21 08:35) Hives, ItchingPenicillins Allergy (Verified 12/21/21 08:35) Hives, Itching Medications ropinirole 0.5 mg tablet 0.5 mg PO QHS LEGS 04/23/16 [History Confirmed 01/16/22] tamsulosin 0.4 mg capsule 0.4 mg PO QHS PROSTATE 01/30/17 [History Confirmed 01/16/22] omeprazole 40 mg capsule,delayed release 40 mg PO DAILY GERD 07/30/19 [History Confirmed 01/16/22] metformin 500 mg tablet,extended release 24 hr 500 mg PO DAILY 09/01/20 [History Confirmed 01/16/22] aripiprazole 10 mg tablet 10 mg PO DAILY 11/09/20 [History Confirmed 01/16/22] baclofen 10 mg tablet 10 mg PO TID 11/09/20 [History Confirmed 01/16/22] dicyclomine 20 mg tablet 20 mg PO BID 11/09/20 [History Confirmed 01/16/22] icosapent ethyl 1 gram capsule (Vascepa) 2 g PO BID 11/09/20 [History Confirmed 01/16/22] mirtazapine 15 mg tablet 15 mg PO QHS 11/09/20 [History Confirmed 01/16/22] trazodone 100 mg tablet 50 mg PO QHS 11/09/20 [History Confirmed 01/16/22] sertraline 100 mg tablet 100 mg PO DAILY 05/18/21 [History Confirmed 01/16/22] budesonide 160 mcg-glycopyr 9 mcg-formot 4.8 mcg/actuation HFA inhaler (Breztri Aerosphere) 2 inh inhalation BID #10.7 grams 07/24/21 [Rx Confirmed 01/16/22] albuterol sulfate 2.5 mg/3 mL (0.083 %) solution for nebulization 2.5 mg (3 mL) inhalation Q8H PRN PRN shortness of breath or wheezing #180 mL 08/20/21 [Rx Confirmed 01/16/22] fexofenadine 180 mg tablet (Jeaneth Allergy) 180 mg PO DAILY 09/28/21 [History Confirmed 01/16/22] potassium chloride 10 mEq tablet,extended release(part/cryst) 10 meq PO DAILY 09/28/21 [History Confirmed 01/16/22] sildenafil 50 mg tablet 50 mg PO ONCE PRN sexual activity 09/28/21 [History Confirmed 01/16/22] nitroglycerin 0.4 mg sublingual tablet (Nitrostat) 0.4 mg sublingual Q5-15M PRN chest pain #25 tabs 10/12/21 [Rx Confirmed 01/16/22] atorvastatin 40 mg tablet 40 mg PO QHS 10/23/21 [History Confirmed 01/16/22] clopidogrel 75 mg tablet 75 mg PO DAILY 10/23/21 [History Confirmed 01/16/22] donepezil 10 mg tablet 10 mg PO DAILY 10/23/21 [History Confirmed 01/16/22] fenofibrate 54 mg tablet 54 mg PO DAILY 10/23/21 [History Confirmed 01/16/22] lamotrigine 200 mg tablet 200 mg PO DAILY 10/23/21 [History Confirmed 01/16/22] losartan 100 mg tablet 50 mg PO DAILY 10/23/21 [History Confirmed 01/16/22] olanzapine 10 mg tablet 10 mg PO QHS 10/23/21 [History Confirmed 01/16/22] montelukast 10 mg tablet 10 mg PO QPM #30 tabs 10/25/21 [Rx Confirmed 01/16/22] lidocaine 5 % topical patch 2 patch topical DAILY 7 days #7 ea 10/31/21 [Rx Confirmed 01/16/22] albuterol sulfate 90 mcg/actuation aerosol inhaler 2 puff inhalation Q6H PRN PRN Shortness Of Breath #8.5 grams 12/24/21 [Rx Confirmed 01/16/22] PFSH Medical History?(Updated 01/16/22 @ 08:[address] Miguelangel Cohn, DO) Alcohol use Ambulates with cane Anxiety Arthritis Asthma Atherosclerotic heart disease of [place] coronary artery without angina pectoris Back pain Bipolar disorder Bipolar disorder BPH (benign prostatic hyperplasia) Brachial neuritis (05/31/11) Cannabis dependence Cardiology follow-up encounter Cervical radiculitis Cervical spondylosis Chest pain Chest tightness Chronic obstructive lung disease (08/02/20) COPD (chronic obstructive pulmonary disease) CPAP (continuous positive airway pressure) dependence DDD (degenerative disc disease) Dementia Dementia Depression Diabetes Dietary restriction Displacement of lumbar intervertebral disc without myelopathy (03/01/11) Dyspnea on exertion Emphysema, unspecified Essential (primary) hypertension Essential hypertension (08/02/20) Fatigue Former smoker GERD (gastroesophageal reflux disease) High cholesterol History of CHF (congestive heart failure) History of echocardiogram History of IBS History of irregular heartbeat History of pain when walking History of pulmonary embolism History of stress test Hyperlipidemia Hypertension Low back pain (03/01/11) Lung nodule < 6cm on CT Malaise and fatigue (08/02/20) Migraines Myocardial infarct Neck pain (03/01/11) Neck sprain (03/01/11) MONIQUE (obstructive sleep apnea) Partial tear of right rotator cuff Peptic ulcer disease Pleurisy Prostate disease PVCs (premature ventricular contractions) Restless leg syndrome Schizophrenia Shortness of breath on exertion Smoking greater than 40 pack years Stage 2 moderate COPD by GOLD classification Syncope and collapse Trigger finger Wears glasses Wheezing Surgical History? H/O cervical spine surgery H/O ventral hernia repair History of appendectomy History of appendectomy History of arthroscopy History of coronary artery stent placement (10/16/18) History of laparoscopic cholecystectomy History of left heart catheterization (04/2016) Family History? Mother?? CAD (coronary artery disease)Sister Diabetes Social History? household members:? none housing:? house current occupational status:? disabled Smoking Status:? Former smoker quit date: 02/14/15 how long ago did patient quit smoking:? 10 years ago second hand exposure:? Yes alcohol intake:? former details:? Quit 9 years ago substance use type:? does not use caffeine:? Yes Type: coffee what type of physical activity do you participate in:? none seatbelt use:? always do you feel safe at home:? Yes HPI RIGHT SHOULDER Details: Parts of this documentation were recorded by a scribe, this documentation accurately reflects the service provided and the decisions made by me, Dr. Miguelangel Cohn, DO 01/16/22 0802. LILLIAN GUERRERO is a 71 year old M here today for? F/U after having right shoulder MRI completed. He states that he continues to have the right anterior shoulder pain radiates over the right clavicle and this pain can radiate down the arm to the mid forearm. Denies numbness, tingling or other associated symptoms. Denies any neck pain at this time. He does have cervical stiffness. He has constant shoulder pain, decreased range of motion and weakness of the shoulder he is right-hand dominant. He does get relief at home from a heating pad. He is right handed. He did fall a few months ago and this is when the pain started. Anterior lateral shoulder pain. Denies any hx of active infections at this time. He quit smoking about 10 years ago. Ortho Exam General General: Yes no acute distress Neurologic: Yes alert and Yes oriented x3 Psychologic: Yes reasonable and appropriate Right Shoulder Skin/Wound: Yes CDI, No ecchymosis, No erythema and No swelling Testing: Positive Hawkin's, TTP Biceps and Drop Arm; Negative TTP AC Joint SHOULDER: 43 active abduction 43 active forward elevation passive 80 forward elevation positive drop arm decreased sensation over deltoid 5/5 resisted finger abduction Supplemental Info 01/12/2022 MRI right shoulder:1.0 cm full-thickness tear of the distal supraspinatus tendon, biceps tendinosis SLAP tear AC joint arthrosis with spurring type II acromion subacromial bursitis Coding Level of Care Code Off vis,est,level 3 Diagnoses Rotator cuff tear, right? M75.101 Acromioclavicular joint arthritis? M19.019 SLAP tear of shoulder? S43.439A Shoulder impingement? M75.40 Assessment and Plan Assessment and Plan (1) Rotator cuff tear, right: ?Status:?Acute (2) Acromioclavicular joint arthritis: ?Status:?Acute (3) SLAP tear of shoulder: ?Status:?Acute (4) Shoulder impingement: ?Status:?Acute Plan Patient educated that he does have a RTC tear along with a SLAP tear, as well as AC joint arthritis causing impingement and bursitis. His Treatment options are PT or RTC repair, subacromial decompression labral debridement along with biceps tenotomy. Reviewed the pre-operative plans with the patient. Risks and benefits of the procedure were fully explained, including but not limited to infection, neurovascular injury, continued pain, arthritis, stiffness, need for further surgery, re-injury, DVT, PE, general risks of anesthesia, stroke and loss of limb or life. The patient understands all the risks and does wish to proceed with written consent. He will need post op PT. He will be in a sling for 6 weeks after surgery, and will not be able to lift any weight with the arm for 3 months postop at least. Will need PCP and carrier associate clearance. He will need to stop Plavix for 7 days prior to surgery, as he will benefit from a interscalene block. Follow up 2 weeks post op or sooner if pain, swelling, numbness or associated symptoms, or concerns develop.? All questions answered. Patient in agreement of plan. Tentative surgery date February 05, 2022 01/16/22 0859 <Electronically signed by Miguelangel Cohn DO> Date Miguelangel Cohn DO Cosigner Signature: Date (if applicable) ? I have examined the patient and the H&P has been reviewed. There are no clinical changes since date of exam.
[2022-02-05 11:15] LABS: Bedside Glucose 107 mg/dL (74-106)
[2022-02-05] MEDS: Clindamycin 900 MG/50 ML BAG 75 MG IV (11:16)
[2022-02-05] MEDS: Epinephrine (1 mg/ml) 1 MG/ML VIAL (11:43)
[2022-02-05] MEDS: Lidocaine 2% /Epi 1:100 (20ml) 20 ML VIAL (11:43)
[2022-02-05] MEDS: Bupivacaine 0.25% 30 ML Vial (12:55)
--- NOTE | 2022-02-05 13:17 | OP.PCM_ITS ---
Operative Report Date of Procedure: 02/05/22 Preoperative diagnosis: Right shoulder supraspinatus anterior tear biceps tendinopathy SLAP tear impingement Postoperative diagnosis: Same Procedure: Arthroscopic arthroscopic right shoulder rotator cuff repair subacromial decompression biceps tenotomy labral debridement Implants: Arthrex 4.75 bio composite medial row anchor 5.5 bio composite lateral anchor Anesthesia: General EBL: 25 cc Complications none Indication for procedure: This is a 71-year-old male status post fall couple months back with inability to lift his shoulder did have MRI evidence of an anterior supraspinatus full-thickness cuff tear who failed conservative treatment and wished to proceed with elective surgery, in addition he did have a SLAP tear biceps tendinopathy and impingement risks benefits and alternatives of the procedure were reviewed including risk of bleeding infection nerve artery tissue damage need for further surgery continued pain postoperative stiffness and need for postoperative physical therapy and continued pain and retear. Procedure: Patient was met in the preoperative holding area the operative extremity was identified by both the patient and the physician and was marked. Patient was met by anesthesia and brought back to the operating room on a wheeled cart. Patient was transferred to the operating table in the supine position. Anesthesia was started. Patient was then positioned in the beach chair configuration. Bony prominences were well-padded. The patient was p repped and draped in the usual sterile fashion. A timeout was called to ensure the proper patient procedure and extremity were being contemplated. Anatomic landmarks were palpated and marked with a marking pen. A 0.25% Marcaine with epinephrine was injected into the planned portal sites. An 11 blade scalpel was used to make a stab incision in the posterior lateral portal. Arthroscope was inserted into the glenohumeral space with ease. Inflow and outflow tubes were attached and arthroscopic visualization began. An anterior portal was established with an 18-gauge spinal needle. There was degenerative fraying of the biceps tendon as well as the superior labrum which was debrided the biceps was tenotomized with an ArthroCare wand the undersurface of the rotator cuff was debrided the anterior bursal fibers still intact these were taken down with a knife through the lateral portal. The axillary pouch was investigated and was free of loose bodies. The subscapularis was intact. The arthroscope was then repositioned into the subacromial space and a lateral portal was established. A subacromial decompression with an ArthroCare wand and shaver and bur was performed. There was noted to be anterior spurring of the acromion which was burred to create a flat surface. Performing an anterior acromioplasty. [The bursal side of the rotator cuff was evaluated . The footprint was debrided with an ArthroCare wand and a shaver. There was noted to be a splits in line with the fibers of the supraspinatus and a marginal repair was performed by first placing a 4.75 bio composite anchor in the footprint of the anterior supraspinatus 1 limb of the tape was passed in the anterior leaflet and 1 limb was passed in the posterior leaflet of the supraspinatus this was repeated with a fiber wire that was generating from the medial anchor these 4 limbs were then secured to the lateral anchor under tension and excellent repair was performed there is a small anterior dogear which was tied with a free limb of the lateral anchor. Excellent repair was achieved. The wound was thoroughly irrigated through the scope followed by a subacromial injection with 8 cc of 0.5% Marcaine plain. Suture portals were closed with 3-0 nylon arthroscopic stitches followed by Xeroform 4 x 4 ABD and a Ioban dressing. A abduction sling and pillow was placed. Anesthesia was reversed and patient tolerated the procedure well was and was transferred to the PACU. All counts were correct patient will follow-up in the office in 2 weeks . Patient may begin active elbow and wrist range of motion and pendulums of the shoulder but no active shoulder motion, dressing is to be left on for 48 hours before being changed daily after showering
--- NOTE | 2022-02-05 13:29 | DCINST_ITS ---
Documented by User: Dr. Miguelangel Cohn DO 02/05/22 13:34 Discharge Instructions Dressing / Incision Call your doctor if you observe: Shortness of breath and Chest pain Additional Dressing/Incision Instructions:: Leave the dressing on and intact for 48 hours. . Then may remove and shower with warm water and antibacterial soap. But do not submerge in tub for 3 weeks. Ice shoulder 15 min on and 15 mins off next 72 hrs. May remove sling for elbow range of motion and pendulum exercises only then replace sling. Absolutely no active shoulder motion. Do not lift push pull at all with operative extremity . Encourage finger and wrist range of motion. Doxycycline antibiotic has been shown to aid in rotator cuff healing please take as directed . If any concerns call Dr. Cohn's office. Follow Up Care Please Follow Up With: Miguelangel Cohn DO When: 2 weeks Test Results: Test results from this visit will be discussed in further detail at your follow- up appointment, if applicable. Discharge Plan Admission Admit Date/Time: 02/05/22 13:25 Attending Provider: Miguelangel Cohn Primary Care Provider: Ani Andersen Consulting Providers: Min Castro Discharge Orders/Prescriptions Prescriptions: New acetaminophen [acetaminophen] 500 mg tablet 1,000 mg PO Q6H PRN Qty: 100 0RF oxycodone 5 mg tablet 5 - 10 mg PO Q4H 7 Days Qty: 40 0RF Rx Instructions: Pain medication can be addictive, sedative and constipating only take as needed. doxycycline hyclate 100 mg tablet 100 mg PO BID Qty: 60 0RF Continued metformin 500 mg tablet extended release 24 hr 500 mg PO DAILY trazodone 100 mg tablet 50 mg PO QHS dicyclomine 20 mg tablet 20 mg PO BID mirtazapine 15 mg tablet 15 mg PO QHS aripiprazole 10 mg tablet 10 mg PO DAILY icosapent ethyl [Vascepa] 1 gram capsule 2 g PO BID baclofen 10 mg tablet 10 mg PO TID sertraline 100 mg tablet 100 mg PO DAILY fenofibrate 54 mg tablet 54 mg PO DAILY Label Comments: TAKE 1 TABLET BY MOUTH EVERY DAY olanzapine 10 mg tablet 10 mg PO QHS donepezil 10 mg tablet 10 mg PO DAILY lamotrigine 200 mg tablet 200 mg PO DAILY atorvastatin 40 mg tablet 40 mg PO QHS losartan 100 mg tablet 50 mg PO DAILY sildenafil 50 mg tablet 50 mg PO ONCE PRN (Reason: sexual activity) Label Comments: TAKE 1 TABLET BY MOUTH TWICE A WEEK NEEDED ONE HOUR BEFORE SEXUAL ACTIVITY Rx Instructions: TAKE 1 TABLET BY MOUTH TWICE A WEEK NEEDED ONE HOUR BEFORE SEXUAL ACTIVITY potassium chloride 10 mEq tablet,ER particles/crystals 10 meq PO DAILY fexofenadine [Jeaneth Allergy] 180 mg tablet 180 mg PO DAILY ropinirole 0.5 MG tablet 0.5 mg PO QHS Label Comments: restless legs tamsulosin 0.4 MG capsule,extended release 24hr 0.4 mg PO QHS omeprazole 40 MG capsule,delayed release(DR/EC) 40 mg PO DAILY clopidogrel 75 mg tablet 75 mg PO DAILY Breztri Aerosphere 160-9-4.8 mcg/actuation HFA aerosol inhaler 2 inh inhalation DAILY albuterol sulfate 2.5 mg /3 mL (0.083 %) solution for nebulization 2.5 mg INHALATION Q8H PRN PRN (Reason: shortness of breath or wheezing) Qty: 180 6RF nitroglycerin [Nitrostat] 0.4 mg tablet, sublingual 0.4 mg sublingual Q5-15M PRN (Reason: chest pain) Qty: 25 3RF Rx Instructions: do not exceed 3 doses per episode albuterol sulfate 90 mcg/actuation HFA aerosol inhaler 2 puff INHALATION Q6H PRN PRN (Reason: Shortness Of Breath) Qty: 8.5 6RF montelukast 10 mg tablet 10 mg PO QPM Qty: 90 3RF Referrals / Follow Up: Ani Andersen DO [Primary Care Provider] - Disposition Disposition (needs filled in before D/C Order can be placed): Home, Self Care Documented by User: JERMAINE Bennett 02/06/22 17:07 Discharge Instructions Dressing / Incision Call your doctor if your incision/area has: Increased Pain/ Swelling and Increased Redness Call your doctor if you observe: Fever of 101 or Higher, Shortness of breath and Chest pain Change Dressing in: 3 days Discharge Plan Admission Admit Date/Time: 02/05/22 13:25 Attending Provider: Miguelangel Cohn Primary Care Provider: Ani Andersen Consulting Providers: Min Castro Discharge Orders/Prescriptions Prescriptions: New acetaminophen [acetaminophen] 500 mg tablet 1,000 mg PO Q6H PRN Qty: 100 0RF oxycodone 5 mg tablet 5 - 10 mg PO Q4H 7 Days Qty: 40 0RF Rx Instructions: Pain medication can be addictive, sedative and constipating only take as needed. doxycycline hyclate 100 mg tablet 100 mg PO BID Qty: 60 0RF Continued metformin 500 mg tablet extended release 24 hr 500 mg PO DAILY trazodone 100 mg tablet 50 mg PO QHS dicyclomine 20 mg tablet 20 mg PO BID mirtazapine 15 mg tablet 15 mg PO QHS aripiprazole 10 mg tablet 10 mg PO DAILY icosapent ethyl [Vascepa] 1 gram capsule 2 g PO BID baclofen 10 mg tablet 10 mg PO TID sertraline 100 mg tablet 100 mg PO DAILY fenofibrate 54 mg tablet 54 mg PO DAILY Label Comments: TAKE 1 TABLET BY MOUTH EVERY DAY olanzapine 10 mg tablet 10 mg PO QHS donepezil 10 mg tablet 10 mg PO DAILY lamotrigine 200 mg tablet 200 mg PO DAILY atorvastatin 40 mg tablet 40 mg PO QHS losartan 100 mg tablet 50 mg PO DAILY sildenafil 50 mg tablet 50 mg PO ONCE PRN (Reason: sexual activity) Label Comments: TAKE 1 TABLET BY MOUTH TWICE A WEEK NEEDED ONE HOUR BEFORE SEXUAL ACTIVITY Rx Instructions: TAKE 1 TABLET BY MOUTH TWICE A WEEK NEEDED ONE HOUR BEFORE SEXUAL ACTIVITY potassium chloride 10 mEq tablet,ER particles/crystals 10 meq PO DAILY fexofenadine [Jeaneth Allergy] 180 mg tablet 180 mg PO DAILY ropinirole 0.5 MG tablet 0.5 mg PO QHS Label Comments: restless legs tamsulosin 0.4 MG capsule,extended release 24hr 0.4 mg PO QHS omeprazole 40 MG capsule,delayed release(DR/EC) 40 mg PO DAILY clopidogrel 75 mg tablet 75 mg PO DAILY Breztri Aerosphere 160-9-4.8 mcg/actuation HFA aerosol inhaler 2 inh inhalation DAILY albuterol sulfate 2.5 mg /3 mL (0.083 %) solution for nebulization 2.5 mg INHALATION Q8H PRN PRN (Reason: shortness of breath or wheezing) Qty: 180 6RF nitroglycerin [Nitrostat] 0.4 mg tablet, sublingual 0.4 mg sublingual Q5-15M PRN (Reason: chest pain) Qty: 25 3RF Rx Instructions: do not exceed 3 doses per episode albuterol sulfate 90 mcg/actuation HFA aerosol inhaler 2 puff INHALATION Q6H PRN PRN (Reason: Shortness Of Breath) Qty: 8.5 6RF montelukast 10 mg tablet 10 mg PO QPM Qty: 90 3RF Referrals / Follow Up: Ani Andersen DO [Primary Care Provider] - Disposition Disposition (needs filled in before D/C Order can be placed): Home, Self Care
[2022-02-05] MEDS: Dicyclomine 10 MG Capsule 20 MG PO (17:27)
[2022-02-05] MEDS: oxyCODONE 5 MG Tablet PO ×2 (18:58→23:42)
[2022-02-05] MEDS: Ipratropium/Albuterol Sulfate 3 ML AMPUL.NEB INHALATION (20:01)
[2022-02-05] MEDS: Budesonide Respules 0.5 MG/2 ML AMPUL.NEB. INHALATION (20:02)
[2022-02-05] MEDS: Atorvastatin Calcium 40 MG Tablet PO (22:03)
[2022-02-05] MEDS: Montelukast 10 MG Tablet PO (22:03)
[2022-02-05] MEDS: Baclofen 10 MG Tablet PO (22:03)
[2022-02-05] MEDS: Tamsulosin HCl 0.4 MG Capsule PO (22:03)
[2022-02-05] MEDS: Acetaminophen 500 MG Tablet 1000 MG PO (22:06)
[2022-02-05] MEDS: OLANZapine 10 MG Tablet PO (22:06)
[2022-02-05] MEDS: Pramipexole Di-HCl 0.25 MG Tablet PO (22:06)
[2022-02-05] MEDS: Mirtazapine 15 MG Tablet PO (22:07)
[2022-02-06 02:25] VITALS: BP 148/79; PULSE 66; RESP 17; TEMP 36.4; O2SAT 94
[2022-02-06] MEDS: oxyCODONE 5 MG Tablet PO ×2 (04:17→12:35)
[2022-02-06] MEDS: Baclofen 10 MG Tablet PO ×2 (06:12→13:43)
[2022-02-06] MEDS: Dicyclomine 10 MG Capsule 20 MG PO (06:12)
[2022-02-06] MEDS: Acetaminophen 500 MG Tablet 1000 MG PO ×2 (06:12→13:43)
[2022-02-06 07:10] VITALS: PULSE 74; RESP 18; O2SAT 97
[2022-02-06] MEDS: Ipratropium/Albuterol Sulfate 3 ML AMPUL.NEB INHALATION ×2 (07:10→13:28)
[2022-02-06] MEDS: Budesonide Respules 0.5 MG/2 ML AMPUL.NEB. INHALATION (07:10)
[2022-02-06 07:45] VITALS: BP 126/68; PULSE 70; RESP 16; TEMP 36.6; O2SAT 94
[2022-02-06] MEDS: metFORMIN (XR) 500 MG Tablet PO (08:37)
[2022-02-06] MEDS: Donepezil HCl 10 MG Tablet PO (08:38)
[2022-02-06] MEDS: Losartan Potassium 50 MG Tablet PO (08:38)
[2022-02-06] MEDS: ARIPiprazole 10 MG Tablet PO (08:38)
[2022-02-06] MEDS: Loratadine 10 MG Tablet PO (08:38)
[2022-02-06] MEDS: Sertraline 100 MG Tablet PO (08:38)
[2022-02-06] MEDS: Potassium Chloride Oral Tablet 10 MEQ PO (08:38)
[2022-02-06] MEDS: Pantoprazole Sodium 40 MG Tablet PO (08:39)
[2022-02-06] MEDS: Fenofibrate 48 MG Tablet PO (08:39)
[2022-02-06] MEDS: lamoTRIgine 100 MG Tablet 200 MG PO (08:39)
--- NOTE | 2022-02-06 11:20 | CASEMGMT ---
RN RAYA GYN RAYA to room to meet with patient for initial transition planning/care coordination assessment. FRANTZ DOS SANTOS introduced self and role at [facility]. Pt voices understanding and consents to assessment at this time. Pt sitting up in chair in room in no distress at this time. Pt is A/O at this time and answers all questions appropriately. Care providers, pharmacy, and demographics verified/updated at this time. PCP: JESIKA Christy Specialists: Dr Cohn-ortho, Dr Burrell-nephrology, Dr Lamb-cadiology, Dr Phillips-pulmonology Preferred Pharmacy: [facility] Retail Insurance: [employer], [employer] Prescription Benefit: Yes Living Will/HPOA: Has HCPOA, who is his dtr, Bethany Falk LNOK: DtrBethany Living Arrangements: Lives alone in a ground level cottage w/no steps to enter. Pt states he was independent prior to surgery. Pt expresses concerns w/being able to take care of himself. He states he is right handed and does not know how he will be able to prepare meals, bath/dress himself, or even be able to put on his own shoes. He states he does have a CM, Brenda, thru [employer], but does not have aides. He gets [employer] meals but he does not like the food and usually goes out to eat 1-2 times/day. He states he has limited support. His daughter works full-time and does not get home til after 5 pm. He states he thinks she could bring him some foods, if he asks her to. He has a nephew and niece that live in [place] but they are both disabled and unable to help. He states most of his friends are . Transportation: Pt usually drives, but will be unable to d/t surgery. DME: States has the following DME: cane, grab bar in bathroom Pt states no need for further DME at this time. HHC/SNF: No hx of HHC. Has been to [facility] in the past. Pt states he wishes to go to [facility] @ discharge. PEYTON, Mima, and MS3 FRANTZ DOS SANTOS, Mitzy, made aware. PLAN: TBD. Lupis ANDERSON RN, CM
--- NOTE | 2022-02-06 11:39 | CASEMGMT ---
RN CM notified pt wishes to go to SNF as he does not have assistance at home or support. Paged who states they tried to get pt insurance to approve inpatient and it was denied. Orders given for PT and OT to eval pt ability to care for self at home.
--- NOTE | 2022-02-06 12:48 | PCM.PN.ORT ---
Subjective Subjective Patient sitting up in chair eating lunch upon entering the room today. He does not appear to be in any acute distress. Patient is alert and oriented and is able to converse easily. Patient states that he does have some mild to moderate pain in the shoulder area underneath the dressing. Patient denies having any numbness or tingling in the extremity. He states he has a little stiffness but is able to use his hand and wrist. Objective Data Objective Data Vital Signs: Vital Signs Temp Pulse Resp BP Pulse Ox O2 Del Method O2 Flow Rate 97.9 F 70 16 126/68 H 94 Room Air 2 02/06/22 07:45 02/06/22 07:45 02/06/22 07:45 02/06/22 07:45 02/06/22 07:45 02/06/22 07:45 02/05/22 19:57 Oxygen Flow Rate (L/min) 2 Oxygen Delivery Method Room Air Weight: 191 lb 2.252 oz Body Mass Index (BMI) 25.9 Intake & Output: Intake and Output for Last 24 Hours 02/04/22 02/05/22 02/06/22 23:59 23:59 23:59 Intake Total 1050 / 1850 2400 / 2400 Output Total 2800 / 2800 Balance 1050 / 950 -400 / -400 Lab / Micro Data Attestation: I reviewed the patient's lab results. Physical Exam Const alert, oriented x3, no apparent distress and well nourished General Appearance: cooperative Extremity Extremity Narrative: Inspection of the right shoulder shows occlusive postop dressing in place over the right shoulder. There is a large Ioban film over the ABD pads. There is no saturation or any drainage noted on the ABD pads. Patient does have soft compartments in the upper and lower arm. Patient does have intact motor function of the wrist and hands at the same time he does have some stiffness and discomfort with use. 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 Patient does have normal sensation to light touch throughout the extremity. He has normal distal radial pulses and capillary refill. Skin Wound Narrative: As noted above there is large bulky postop dressing over the incision therefore direct visualization unable to be performed Neuro Speech: speech abnormal Assessment & Plan Assessment/Plan (1) S/P right rotator cuff repair: PLAN: Patient was seen today postop day 1 from right rotator cuff repair. Upon entering the room patient was alert and oriented without any signs of distress. He he did not appear to have any breathing difficulties and was completing full sentences without having any shortness of breath. Overall patient seems to be doing well. He is having some mild to moderate pain in the right shoulder to be expected at the same time again shows no signs of acute distress. Postop dressing shows no saturation or drainage noted on the ABD pads (Ioban film overlying dressings.) According to the nurse he was having a little bit of numbness and tingling into the fifth digit which started later in the morning at the same time she repositioned his elbow with a pillow underneath and he states he has not had any problems since then having full sensation to light touch throughout the extremity. He does have again soft compartments in the upper arm as well as in the forearm area. He also again has normal distal radial pulses and capillary refill. His shoulder brace is currently in an appropriate position. At this time we did discuss the patient needs to remain in the sling at all times other than changing her bathing in which case he needs to make sure he supports the arm against his stomach and when able to use the other arm for support. Patient can remove the sling to do gentle motion of the elbow 2-3 times a day at least and should be using the squeeze ball at the end of his brace make sure that he continues use of the wrist and the hand. Patient is not to do ANY active motion of the shoulder at this time. He needs to be icing the shoulder when able 20 minutes every 1-2 hours. Patient is to take the dressing off Friday and can clean the wound daily with soap and water. There was a little bit of confusion with where he was going from here. Patient initially said that his daughter was able to help him and he was going home however told the delinquency prevention social worker this morning that he did not think he go home as he didnt have help. When I arrived today to speak with him he states that he was confused as he thought he was going home and told me he was asked them what intermediate he wanted to go to. When I spoke with him he still was wanting or thinking he was going home. I did have social work come in and talk with us a little bit of his main concern is that he did not think he could make meals for himself. Otherwise he states that he was planning on going home and actually his nephew was coming to pick him up and take his car home early this afternoon. Social work did end up calling his daughter to make sure that he would have some help or assistance especially with meals and that that is his main concern. We did emphasize with patient that we do not want to send him home especially if we are going to set him up to fail. He states if he can get meals then he will be fine and would like to go home if possible. If there is any change in patient's needs to stay please notify our office and can make appropriate arrangements to see him over the weekend until placement is provided.
--- NOTE | 2022-02-06 13:04 | CASEMGMT ---
Addendum entered by Mitzy Romero 02/06/22 13:58: FRANTZ DOS SANTOS into pt room, pt sitting up in chair, dressed and ready to leave. Pt aware of conversation had with dtr. He states he thinks he will go out to eat for meals. He states he does get [employer] weekly on Friday. Pt states he feels safe going home and he has a phone to call for help if needed. Original Note: FRANTZ DOS SANTOS approached by PA regarding pt dc plan. FRANTZ DOS SANTOS and PA into pt room together. Pt agreed he had a discussion prior to surgery regarding needing assistance after surgery and his dtr would be that person. He states his nephew will be transporting him home. Asked if his nephew could provide any assistance to him, he states he cannot. Pt main concern is meals. Pt agreeable to FRANTZ DOS SANTOS calling pt dtr. TC to dtr Bethany, she states she works M-F for 8 hours per day and will assist as she can. Asked if she can assure pt will have meals. She states she can make sure pt has food in the fridge but cannot cook for him. Updated PA.
[2022-02-06 13:28] VITALS: PULSE 72; RESP 19
[2022-02-06 13:40] VITALS: BP 125/75; PULSE 73; RESP 16; TEMP 36.3; O2SAT 95
--- NOTE | 2022-02-06 15:04 | CASEMGMT ---
Social work SW called CUONG Stanton CM, to inform of pt discharge today. PEYTON faed discharge information to Brenda Burrell and also left message regarding pt's medical alert button not working. Left contact information with in case Brenda needed additional information. ROSALEE Weber
== END 2022-02-06 14:07 | disposition home or self-care (01) ==
LOC: SDC 14:19 → MS3 14:19
PROVIDERS: Anesthesiology; Admitting Provider Orthopaedic Surgery; PCP Internal Medicine; Referring Provider Orthopaedic Surgery; Visit Provider Orthopaedic Surgery
PROC: (CPT 29827; principal; 2022-02-05 11:25)
DX: M19.011 Primary osteoarthritis, right shoulder (principal); F03.90 Unspecified dementia, unspecified severity, without behavioral disturbance, psychotic disturbance, mood disturbance, and anxiety; J43.9 Emphysema, unspecified; M75.101 Unspecified rotator cuff tear or rupture of right shoulder, not specified as traumatic; Z87.891 Personal history of nicotine dependence; S43.431A Superior glenoid labrum lesion of right shoulder, initial encounter; W19.XXXA Unspecified fall, initial encounter; Z79.84 Long term (current) use of oral hypoglycemic drugs; Z79.899 Other long term (current) drug therapy; I25.10 Atherosclerotic heart disease of native coronary artery without angina pectoris; F41.9 Anxiety disorder, unspecified; F32.A Depression, unspecified; N40.0 Benign prostatic hyperplasia without lower urinary tract symptoms; K21.9 Gastro-esophageal reflux disease without esophagitis; G47.33 Obstructive sleep apnea (adult) (pediatric); M75.40 Impingement syndrome of unspecified shoulder
CPT/HCPCS: 29827; 24341; 29826; 01630; 36415; 82962; 83036; 94640; 99218; 99251; J7120; G0378; G0463; J2405

== ENCOUNTER → 2022-03-28 | Outpatient (CLI) | payer MEDICARE, MEDICAID, SELFPAY ==
[2018-10-16 10:45] VITALS: BMI 21.8
[2022-03-28 10:58] LABS: Albumin, Serum 3.7 g/dL (3.2-5.0); BUN 11 mg/dL (7-18); BUN/Creat Ratio 9.9 RATIO (10-20); Calcium,Total 8.8 mg/dL (8.5-10.1); Chloride 109 mmol/L (98-107); Creatinine, Serum 1.11 mg/dL (0.70-1.30); EST Glomerular Filtration Rate 69 mL/min (>60); Est Glom Filt Rate - Afr Amer 83 mL/min (>60); Glucose 110 mg/dL (74-106); Phosphorus 2.1 mg/dL (2.5-4.9); Potassium 3.5 mmol/L (3.5-5.1); Sodium Level 142 mmol/L (136-145)
[2022-03-28 11:27] LABS: PTHIN 63.9 pg/mL (18.4-80.1)
== END | disposition home or self-care (01) ==
LOC: POLAB3 09:43
PROVIDERS: PCP Internal Medicine; Visit Provider Internal Medicine Nephrology
DX: N18.31 Chronic kidney disease, stage 3a (principal)
CPT/HCPCS: 36415; 80069; 83970

== ENCOUNTER 2022-04-09 10:00 | Outpatient (RCR) | payer MEDICARE, MEDICAID, SELFPAY ==
[2018-10-16 10:45] VITALS: BMI 21.8
--- NOTE | 2022-03-07 13:09 | HP.PTEVAL ---
Patient's Visit Information LILLIAN UGERRERO is a 71 year old M referred to Physical Therapy by JERMAINE Purdy with a diagnosis of SPECIFIED POSTPROCEDURAL STATES ,ACUTE POST ACUTE POST PROCEDEDURAL. Date of Evaluation: 03/06/22 Physical Therapist: Bari Linton, PT, Cert MDT, OCS - Visit Plan Frequency: 2x /Week Duration: 12 WEEKS Plan: S/P RTC REPAIR AND AND TEMOTOMY LABRAL DEBRIDEMENT AND SUBACROMIAL DECOMPRESSION. SEE GUIDELINES FOR RTC REPAIR. PT INTERVETIONS PHASE (1) 6 WEEKS , PHASE (2) AAROM 4-6WEEKS ,THEN PHASE (3) STRENGTHENING, MANUAL THERAPY ,CP/MHP - Subjective This 71 y/o male presents to physical therapy with right RTC repair on 02/05/[address] Cohn at [facility] . Patient d/c 02/06/22 observations. Patient fell initially fell in August on shoulder . Eventually had MRI showed supraspinatus tear. . Patient underwent arthroscopic right shoulder RTC ,Subacromial decompression biceps tenotomy labral debridement. Patient recently seen Dr on 02/20 recommended PT at [facility] in Mar 20 . Patient had therapy for right shoulder was not getting better. Patient has pain in right shoulder .MEDS: oxycodone Denies paresthesia/tingling . Patient has difficulty sleeping in bed . Patient sleeps in Recliner. Patient sleeps in hospital bed . Patient RTC repair affects all ADLS and self hygiene. Patient surgery affects QOL and function. SOCIAL: single. VOCATION: retired - Pain Right Shoulder Pain Intensity (Out of 10): 8 Pain Intensity Range: 10 - Objective POSTURE: mild posture rounded shoulders head forward. NEURO: denies paresthesia/tingling ,. SKIN: well approximate. PROM: shoulder flexion 130 degrees ,abduction 140 in scapation , ER 60 Degrees. MMT: NT - Balance/Special Test Scores Quick DASH Score: 97.7250 - Goals Goal 1:: Patient to be I with HEP for RTC Goal Time Frame: 8-12 Weeks Goal 2:: Patient to demonstrate 60% improvement with improved function and less pain Goal Time Frame: 8-12 Weeks Goal 3:: Patient to improve AROM shoulder flexion/abduction 150 degrees and ER 85 degrees for functional activities above 90 degrees Goal Time Frame: 8-12 Weeks Goal 4:: Patient increase strength of RTC 4-/5 and deltoid to 3+/5 to improve function and overhead activities. Goal Time Frame: 8-12 Weeks Goal 5:: Patient to improve shoulder quick dash by 10 points to improve QOL and function. Goal Time Frame: 8-12 Weeks - Rehabilitation Potential Physical Therapy Diagnosis: This patient under s/p RTC repair subacromial decompression biceps tenotomy labral debridement with pain ,decrease ROM, strength thus impairs ADLS and housework tasks Rehabilitation Potential: Good - Anticipated Interventions Patient/Client Instruction: Educate patient on: Condition, Plan of Care For the Purpose of:: To decrease pain, To increase ROM, To improve muscle performance and motor function, To improve ability to perform ADL's, To increase tolerance to activity/condition/position, To improve performance and independence with ADL's, To improve ability of physical actions for home/community/work/leisure, To improve health of tissue, To decrease soft tissue restriction, To increase flexibility/ROM Therapeutic Exercise to Include: Strength training, Postural training, Flexibilty training, Passive ROM, Active ROM Comment: PHASE I PROM 6 WEEKS,PHASE 2 AAROM 40-6WEEKS ,PHASE 3 STRENGTHENING For the Purpose of:: To decrease pain, To increase ROM, To improve muscle performance and motor function, To improve ability to perform ADL's, To increase tolerance to activity/condition/position, To improve performance and independence with ADL's, To improve ability of physical actions for home/community/work/leisure, To improve health of tissue, To decrease soft tissue restriction, To increase flexibility/ROM Manual Therapy Techniques to Include: Mobilization, Passive ROM Comment: G-H For the Purpose of:: To decrease pain, To increase ROM, To improve nutrient delivery to tissue, To improve health of tissue, To decrease soft tissue restriction, To increase flexibility/ROM Thank you for the opportunity to evaluate your patient. For Medicare and Medicare HMO plans, please review the plan of care and approve it. It will need to be FAXED BACK to us at [phone] for Medicare purposes. For Medicare only, by signing this I certify the plan of care. Please let me know if there are questions or concerns regarding this plan of care. Physician Signature: Date:
--- NOTE | 2022-06-25 10:16 | HP.PT.NRP ---
LILLIAN GUERRERO was seen in my office for initial evaluation on 03/06/22. The following Plan of Care was established for this patient: Initial Frequency: 2x /Week Initial Duration: 12 WEEKS Patient/Client Instruction: Educate patient on: Condition, Plan of Care For the Purpose of:: To decrease pain, To increase ROM, To improve muscle performance and motor function, To improve ability to perform ADL's, To increase tolerance to activity/condition/position, To improve performance and independence with ADL's, To improve ability of physical actions for home/community/work/leisure, To improve health of tissue, To decrease soft tissue restriction, To increase flexibility/ROM Therapeutic Exercise to Include: Strength training, Postural training, Flexibilty training, Passive ROM, Active ROM For the Purpose of:: To decrease pain, To increase ROM, To improve muscle performance and motor function, To improve ability to perform ADL's, To increase tolerance to activity/condition/position, To improve performance and independence with ADL's, To improve ability of physical actions for home/community/work/leisure, To improve health of tissue, To decrease soft tissue restriction, To increase flexibility/ROM Manual Therapy Techniques to Include: Mobilization, Passive ROM Comment: G-H For the Purpose of:: To decrease pain, To increase ROM, To improve nutrient delivery to tissue, To improve health of tissue, To decrease soft tissue restriction, To increase flexibility/ROM This patient was last seen in our office . Pertinent comments regarding their Physical therapy will appear below: cancelled PT due to patient fell on right shoulder and re-tore RTC thus underwent surgery to repair RTC 06/04/22. At this point I will be discontinuing this patient from physical therapy. I would be happy to see this patient again in the future if found appropriate by the physician. Thank you! Bari Linton, PT, Cert MDT, OCS Balance/Gait/Functional tests - Balance/Special Test Scores Quick DASH Score: [phone]
== END 2022-04-09 19:00 | disposition home or self-care (01) ==
LOC: PT 10:00
PROVIDERS: PCP Internal Medicine; Referring Provider Physician Assistant; Visit Provider Physician Assistant
DX: Z98.890 Other specified postprocedural states (principal); G89.18 Other acute postprocedural pain
CPT/HCPCS: 97110; 97140; 97162

== ENCOUNTER → 2022-05-15 | Outpatient (CLI) | payer MEDICARE, MEDICAID, SELFPAY ==
[2018-10-16 10:45] VITALS: BMI 21.8
--- NOTE | 2022-05-15 08:30 | MRI_ITS ---
STUDY: MRI RIGHT SHOULDER REASON FOR EXAM: Male, 72 years old. Right shoulder injury after surgery. Increasing pain. TECHNIQUE: Standardized fat and water weighted pulse sequences were obtained in all 3 orthogonal planes. COMPARISON: X-rays of the right shoulder dated April 12, 2022 and right shoulder MR dated January 12, 2022. FINDINGS: Full-thickness focal breath retracted tears of the supraspinatus and infraspinatus tendons. Supraspinatus tendon is retracted 3 cm from its insertion site and infraspinatus is retracted 2.5 cm from its insertion site. Postsurgical changes of rotator cuff repair with anchors in the humeral head are noted (coronal series 9 images 9-19). Subscapularis tendinosis with thinning/attenuation with no full thickness tear (axial series 6 images 12-17). Normal teres minor tendon. Mild atrophy of the supraspinatus, infraspinatus and subscapularis muscles (sagittal series 10 images 14-18). . Normal teres minor muscle. Moderate arthrosis of the glenohumeral joint with a moderate-sized glenohumeral joint effusion (axial series 6 images 11-18). Postsurgical changes of rotator cuff repair with cystic changes in the humeral head (axial series 6 images 8-15). Normal biceps labral complex. Torn, retracted long head of the biceps tendon (axial series 6 images 13-19). Superior labrum tear, relatively unchanged (coronal series 9 images 10-13). Normal capsulo- ligamentous complex. Normal rotator interval. Large AC joint effusion with AC joint hypertrophy and marked narrowing of the subacromial space (coronal series 9 images 9-17). There is a Type II morphology (curved), with a neutral orientation. Subacromial-subdeltoid bursal fluid (coronal series 9 image 17). Normal visualized coracohumeral and coracoacromial ligaments. Normal quadrilateral space. Normal axillary space. Normal deltoid muscle. Normal trapezius muscle. MRI/Upper Ext Joint Only(Routine) IMPRESSION: Full-thickness full width retracted supraspinatus and infraspinatus tendon tears as described. Marked subscapularis tendinosis with thinning/attenuation without a full-thickness tear. Mild atrophy of the supraspinatus, infraspinatus and subscapularis muscles. Moderate atrophy of the glenohumeral joint. Postsurgical changes of rotator cuff repair with cystic change in the humeral head. Torn, retracted long head of the biceps with relatively stable superior labral tear. Large AC joint effusion with AC joint hypertrophy and narrowing of the subacromial space. Moderate-sized glenohumeral joint effusion with subacromial-subdeltoid bursal fluid. Electronically Signed: Palomo Estrada, at 11:46 EST ,
== END | disposition home or self-care (01) ==
LOC: MRI 07:52
PROVIDERS: PCP Internal Medicine; Referring Provider Orthopaedic Surgery; Visit Provider Orthopaedic Surgery
DX: S46.001A Unspecified injury of muscle(s) and tendon(s) of the rotator cuff of right shoulder, initial encounter (principal)
CPT/HCPCS: 73221

== ENCOUNTER → 2022-05-30 | Outpatient (CLI) | payer MEDICARE, MEDICAID, SELFPAY ==
[2018-10-16 10:45] VITALS: BMI 21.8
== END | disposition home or self-care (01) ==
PROVIDERS: PCP Internal Medicine; Referring Provider Anesthesiology Pain Medicine; Visit Provider Anesthesiology Pain Medicine
DX: F11.20 Opioid dependence, uncomplicated (principal)

== ENCOUNTER 2022-06-04 07:38 | Inpatient (IN) | payer MEDICARE, MEDICAID, SELFPAY ==
[2018-10-16 10:45] VITALS: BMI 21.8
[2022-05-30 10:34] LABS: Hematocrit 40.2 % (40-54); Hemoglobin 12.4 g/dL (13.0-16.5); Mean Corp Hgb Conc 30.8 g/dL (32-36); Mean Corpuscular Hgb 26.1 pg (27.0-32.0); Mean Corpuscular Volume 84.6 fL (80-94); Mean Platelet Vol. 10.3 fl (6.2-12.0); Platelet Count 250 K/mm3 (150-450); RBC Distribution Width CV 14.9 % (11.6-14.6); RBC Distribution Width SD 45.7 fl (35.1-43.9); Red Blood Count 4.75 M/mm3 (4.6-6.2); White Blood Count 9.6 K/mm3 (4.4-11.0)
[2022-05-30 10:42] LABS: Amphetamine Urine VISTA NEGATIVE (<1000 ng/mL); Barbiturate Urine VISTA NEGATIVE (< 200 ng/mL); Benzodiazepine Urine VISTA NEGATIVE (< 200 ng/mL); Cocaine Urine VISTA NEGATIVE (< 300 ng/mL); Ecstacy Urine VISTA NEGATIVE (< 500 ng/mL); Methadone Urine VISTA NEGATIVE (< 300 ng/mL); PCP Urine VISTA NEGATIVE (< 25 ng/mL); THC Urine VISTA POSITIVE (< 50 ng/mL); Vista UDS pH Range 5
[2022-05-30 11:11] LABS: Hemoglobin A1c 6.1 % (3.8-5.6)
[2022-06-04] VITALS (14 sets, daily range): BP systolic 113–139; BP diastolic 62–77; PULSE 72–88; RESP 14–18; TEMP 36.4–37.1; O2SAT 94–100; BMI 24.7
[2022-06-04] MEDS: Vancomycin IV 1,000 MG/200 ML BAG 200 MG IV (08:10)
[2022-06-04] MEDS: Lactated Ringers 1,000 ML 15 ML IV ×2 (08:10→12:22)
[2022-06-04 08:30] LABS: Bedside Glucose 103 mg/dL (74-106)
[2022-06-04] MEDS: Ipratropium/Albuterol Sulfate 3 ML AMPUL.NEB INHALATION ×2 (08:56→18:49)
--- NOTE | 2022-06-04 09:27 | PCM.HP.BLA ---
History and Physical Date of Admission: 06/04/22 [facility] [id number] [place] [address] OFFICE VISIT Date of Service:? 05/17/22 MR#: [id number] Acct: [id number] Name:LILLIAN CAMERON Rep #: [id number] : 1950 ? ? Provider: Dr. Miguelangel Cohn, DO Age/Sex:? 72/M ? ? Location: [facility] [place].VNICENT Status: Signed Intake Intake Visit Reasons:?right shoulder Chief Complaint: right shoulder Allergies Quinolones Allergy (Unknown, Verified 05/17/22 08:09) unknownaspirin Allergy (Verified 05/17/22 08:09) Itching, Hiveslevofloxacin [From Levaquin] Allergy (Verified 05/17/22 08:09) Hives, ItchingPenicillins Allergy (Verified 05/17/22 08:09) Hives, Itching Medications ropinirole 0.5 mg tablet 0.5 mg PO QHS LEGS 04/23/16 [History Confirmed 05/17/22] tamsulosin 0.4 mg capsule 0.4 mg PO QHS PROSTATE 01/30/17 [History Confirmed 05/17/22] omeprazole 40 mg capsule,delayed release 40 mg PO DAILY GERD 07/30/19 [History Confirmed 05/17/22] metformin 500 mg tablet,extended release 24 hr 500 mg PO DAILY 09/01/20 [History Confirmed 05/17/22] aripiprazole 10 mg tablet 10 mg PO DAILY 11/09/20 [History Confirmed 05/17/22] baclofen 10 mg tablet 10 mg PO TID 11/09/20 [History Confirmed 05/17/22] dicyclomine 20 mg tablet 20 mg PO BID 11/09/20 [History Confirmed 05/17/22] icosapent ethyl 1 gram capsule (Vascepa) 2 g PO BID 11/09/20 [History Confirmed 05/17/22] mirtazapine 15 mg tablet 15 mg PO QHS 11/09/20 [History Confirmed 05/17/22] trazodone 100 mg tablet 50 mg PO QHS 11/09/20 [History Confirmed 05/17/22] sertraline 100 mg tablet 100 mg PO DAILY 05/18/21 [History Confirmed 05/17/22] albuterol sulfate 2.5 mg/3 mL (0.083 %) solution for nebulization 2.5 mg (3 mL) inhalation Q8H PRN PRN shortness of breath or wheezing #180 mL 08/20/21 [Rx Confirmed 05/17/22] fexofenadine 180 mg tablet (Jeaneth Allergy) 180 mg PO DAILY 09/28/21 [History Confirmed 05/17/22] potassium chloride 10 mEq tablet,extended release(part/cryst) 10 meq PO DAILY 09/28/21 [History Confirmed 05/17/22] sildenafil 50 mg tablet 50 mg PO ONCE PRN sexual activity 09/28/21 [History Confirmed 05/17/22] nitroglycerin 0.4 mg sublingual tablet (Nitrostat) 0.4 mg sublingual Q5-15M PRN chest pain #25 tabs 10/12/21 [Rx Confirmed 05/17/22] atorvastatin 40 mg tablet 40 mg PO QHS 10/23/21 [History Confirmed 05/17/22] donepezil 10 mg tablet 10 mg PO DAILY 10/23/21 [History Confirmed 05/17/22] fenofibrate 54 mg tablet 54 mg PO DAILY 10/23/21 [History Confirmed 05/17/22] lamotrigine 200 mg tablet 200 mg PO DAILY 10/23/21 [History Confirmed 05/17/22] olanzapine 10 mg tablet 10 mg PO QHS 10/23/21 [History Confirmed 05/17/22] albuterol sulfate 90 mcg/actuation aerosol inhaler 2 puff inhalation Q6H PRN PRN Shortness Of Breath #8.5 grams 12/24/21 [Rx Confirmed 05/17/22] montelukast 10 mg tablet 10 mg PO QPM #90 tabs 01/23/22 [Rx Confirmed 05/17/22] budesonide 160 mcg-glycopyr 9 mcg-formot 4.8 mcg/actuation HFA inhaler (Breztri Aerosphere) 2 inh inhalation DAILY 02/04/22 [History Confirmed 05/17/22] clopidogrel 75 mg tablet 75 mg PO DAILY 02/04/22 [History Confirmed 05/17/22] acetaminophen 500 mg tablet 1,000 mg PO Q6H PRN #100 tabs 02/05/22 [Rx Confirmed 05/17/22] oxycodone 5 mg tablet 5 - 10 mg PO Q4H 7 days #40 tabs 02/05/22 [Rx Confirmed 05/17/22] losartan 25 mg tablet 25 mg PO BID #60 tabs 05/02/22 [Rx Confirmed 05/17/22] PFSH Medical History? Alcohol use Ambulates with cane Anxiety Arthritis Asthma Atherosclerotic heart disease of [place] coronary artery without angina pectoris Back pain Bipolar disorder Bipolar disorder BPH (benign prostatic hyperplasia) Brachial neuritis (05/31/11) Cannabis dependence Cardiology follow-up encounter Cervical radiculitis Cervical spondylosis Chest pain Chest tightness Chronic obstructive lung disease (08/02/20) COPD (chronic obstructive pulmonary disease) CPAP (continuous positive airway pressure) dependence DDD (degenerative disc disease) Dementia Dementia Depression Diabetes Dietary restriction Displacement of lumbar intervertebral disc without myelopathy (03/01/11) Dyspnea on exertion Emphysema, unspecified Essential (primary) hypertension Essential hypertension (08/02/20) Fatigue Former smoker GERD (gastroesophageal reflux disease) High cholesterol History of CHF (congestive heart failure) History of echocardiogram History of IBS History of irregular heartbeat History of pain when walking History of pulmonary embolism History of stress test Hyperlipidemia Hypertension Low back pain (03/01/11) Lung nodule < 6cm on CT Malaise and fatigue (08/02/20) Marijuana use Migraines Myocardial infarct Neck pain (03/01/11) Neck sprain (03/01/11) MONIQUE (obstructive sleep apnea) Partial tear of right rotator cuff Peptic ulcer disease Pleurisy Prostate disease PVCs (premature ventricular contractions) Restless leg syndrome Schizophrenia Shortness of breath on exertion Sleep apnea Smoking greater than 40 pack years Stage 2 moderate COPD by GOLD classification Syncope and collapse Trigger finger Wears glasses Wheezing Surgical History? H/O cervical spine surgery H/O ventral hernia repair History of appendectomy History of appendectomy History of arthroscopy History of coronary artery stent placement (10/16/18) History of laparoscopic cholecystectomy History of left heart catheterization (04/2016) Family History? Mother?? CAD (coronary artery disease)Sister Diabetes Social History? household members:? none housing:? house current occupational status:? disabled Smoking Status:? Former smoker quit date: 02/14/15 how long ago did patient quit smoking:? 10 years ago second hand exposure:? Yes alcohol intake:? former details:? Quit 9 years ago substance use type:? does not use caffeine:? Yes Type: coffee what type of physical activity do you participate in:? none seatbelt use:? always do you feel safe at home:? Yes HPI right shoulder Details: Parts of this documentation were recorded by a scribe, this documentation accurately reflects the service provided and the decisions made by me, Dr. Miguelangel Cohn, DO 05/17/22 0755. LILLIAN GUERRERO is a 72 year old M here today for MRI review of the right shoulder. Denies any changes. Patient rates his pain a 9/10 today. States that he has been in a lot of pain for weeks and can't seem to get his pain to go down, notes that he did try icing it but it didn't help.? To recall Lillian had to anchor supraspinatus rotator cuff repair January.? Lillian was doing well postoperatively until he had a fall injuring his right shoulder again.? We suspected rotator cuff tear at the time but considering his age and recent surgery decided to see what gains he could get with physical therapy.? He did not seem to improve at all and has no range of motion of the shoulder and continued severe pain therefore repeat MRI was ordered which demonstrates full-thickness retracted supraspinatus and infraspinatus rotator cuff tears. Also reports medial left knee pain. He states that his knee has been giving out on him.? To recall he did have a knee arthroscopy October 2021 and had partial meniscectomy and chondroplasty with grade 3 cartilage wear of the medial compartment Ortho Exam General General: Yes no acute distress Neurologic: Yes alert and Yes oriented x3 Psychologic: Yes reasonable and appropriate Left Knee Skin/Wound: Yes CDI, No ecchymosis, No erythema and No swelling Homans Sign: No Knee ROM: No ROM-Extension -20 to 0 (lacking 15) and No ROM-Flexion 0-140 (100) Examination: Yes med jt line tenderness and No Lat jt line tenderness Stability: NML: Anterior Drawer, NML: Posterior Drawer, NML: Valgus 30 and NML: Varus 30 KNEE: no joint effusion Right Shoulder Skin/Wound: Yes CDI, No ecchymosis, No erythema and No swelling SHOULDER: stiffness weaknes? of right elbow flexion/ extension d/t shoulder pain neurovascularly intact radial median ulnar nerves axillary nerve.? Lillian has 0 degrees of shoulder motion today no joint effusion erythema or ecchymosis around the shoulder he does have muscular atrophy in the shoulder girdle Head: Normocephalic Atraumatic Chest: symmetrical rise, non-labored breathing, no audible wheeze Abdomen: no guarding, non-rigid Office Procedures Ortho Injections Injections Yes Knee Left Details: Obtained consent for injection.? Under sterile conditions, injected the patient's left knee with 1.5cc bupivacaine, 1.5cc lidocaine and 1cc depomedrol.? The patient tolerated the injection well without any noted complication.? Patient should call our office if redness develops, pain worsens or if they have any concerns. Office Meds Depo-Medrol Performing Provider: Miguelangel Cohn DO Administered by: Miguelangel Cohn DO on 05/17/22 08:43 Dose Route Admin Location Lot Number Expiration Date [facility] Asic Design Engineer 40 mg intra-articular left knee [id number] 06/15/24 6825-1727-02 [employer] Supplemental Info 05/15/2022 MRI right shoulder: Full-thickness full width retracted supraspinatus and infraspinatus tendon tears.? Marked subscapularis tendinosis.? Mild atrophy of supraspinatus infraspinatus and subscapularis.? Moderate arthrosis of the glenohumeral joint.? Postsurgical changes of the rotator cuff with cystic change of the humeral head previous anchor still present 04/12/2022 x-ray left shoulder mild AC joint arthrosis 04/12/2021 x-ray right shoulder: Metallic anchor seen within humeral head there is mild glenohumeral arthrosis and mild AC joint arthrosis 01/12/2022 MRI right shoulder:1.0 cm full-thickness tear of the distal supraspinatus tendon, biceps tendinosis SLAP tear AC joint arthrosis with spurring type II acromion subacromial bursitis Coding Level of Care Code Off vis,est,level 3 Diagnoses Osteoarthritis of left knee? M17.12 Injury of right rotator cuff? S46.001A CPT Codes character artist.knee ([id number]) Assessment and Plan Assessment and Plan (1) Osteoarthritis of left knee: ?Status:?Acute (2) Injury of right rotator cuff: ?Status:?Acute ? ? ? Orders: Orders Ortho Injections Today M17.12 - Unilateral primary osteoarthritis, left knee, S46.001A - Unspecified injury of muscle(s) and tendon(s) of the rotator cuff of right shoulder, initial encounter ? Plan Patient educated that he has re-torn the RTC and it is worse this time. He has a ful thickness and widthl tear of the supraspinatus and infraspinatus tendon with retraction there is also tendinopathy of supraspinatus infraspinatus and subscapularis of the right shoulder. Educated that his surgical options are revision RTC repair but there is a chance it is a repairable and I debridement would be performed at that time if it was the case if you continue to have pain the only other option would be reverse shoulder arthroplasty he does have some glenohumeral arthrosis however I do not feel it is bad enough to go straight to that at this point and do feel it is worth to attempt to perform another repair.? Reviewed the pre-operative plans with the patient. Risks and benefits of the procedure were fully explained, including but not limited to infection, neurovascular injury, continued pain, arthritis, stiffness, need for further surgery, re-injury, DVT, PE, general risks of anesthesia, and loss of limb or life. The patient understands all the risks and does wish to proceed with written consent with right shoulder RTC repair. Will need?permission to stop the Plavix 7 days prior to surgery.?Will request admission as he does live alone and became delirious after the last surgery he may benefit from transitional care prior to returning home in addition he has had cardiac history, as well as some history of dementia COPD. We will need medical clearance Patient educated that he has osteoarthritis of the left knee. Recommended a steroid injection of the left knee to help take away the inflammation int he knee from the arthritis. He wishes to proceed with left knee steroid injection today. Follow up 2 weeks post op or sooner if pain, swelling, numbness or associated symptoms, or concerns develop.? All questions answered. Patient in agreement of plan. 05/17/22 0935 <Electronically signed by Miguelangel Cohn DO> Date Miguelangel Cohn DO Cosigner Signature: Date (if applicable) I have examined the patient and the H&P has been reviewed. There are no clinical changes since date of exam.
[2022-06-04] MEDS: Bupiv/Epi 0.25% 30 ML Vial (10:10)
[2022-06-04] MEDS: Epinephrine (1 mg/ml) 1 MG/ML VIAL (10:19)
[2022-06-04] MEDS: MethylPREDNISolone Acetate 40 MG/ML Vial IM (10:28)
--- NOTE | 2022-06-04 11:18 | PCM.OP.BLANK ---
Operative Report Date of Procedure: 06/04/22 Preoperative diagnosis: Right supraspinatus infraspinatus rotator cuff tear full-thickness, history of repair Postoperative diagnosis: Full-thickness supraspinatus and infraspinatus rotator cuff tear Procedure: Arthroscopic revision rotator cuff repair Implants: Arthrex speed bridge 4 anchor pair Anesthesia: General with interscalane block EBL: 25 cc Complications none Indication for procedure: This is a 72-year-old male patient who previously underwent supraspinatus rotator cuff repair this past February patient was doing well postoperatively then had a fall and had inability to lift his arm with significant pain he did try physical therapy and repeat MRI was ordered and demonstrated full-thickness supraspinatus infraspinatus rotator cuff tear he did wish to proceed with surgical fixation risks benefits and alternatives of the procedure were reviewed including risk of bleeding infection nerve artery tissue damage need for further surgery continued pain postoperative stiffness and need for postoperative physical therapy and continued pain and retear. Procedure: Patient was met in the preoperative holding area the operative extremity was identified by both the patient and the physician and was marked. Patient was met by anesthesia and brought back to the operating room on a wheeled cart. Patient was transferred to the operating table in the supine position. Anesthesia was started. Patient was then positioned in the beach chair configuration. Bony prominences were well-padded. The patient was prepped and draped in the usual sterile fashion. A timeout was called to ensure the proper patient procedure and extremity were being contemplated. Anatomic landmarks were palpated and marked with a marking pen. A 0.25% Marcaine with epinephrine was injected into the planned portal sites. An 11 blade scalpel was used to make a stab incision in the posterior lateral portal. Arthroscope was inserted into the glenohumeral space with ease. Inflow and outflow tubes were attached and arthroscopic visualization began. An anterior portal was established with an 18-gauge spinal needle. There was no significant cartilage pathology there was slight fraying of the superior border of the subscapularis mild synovitis of the biceps tendon. The rotator cuff was evaluated and was found to have a full-thickness tear of both supraspinatus and the infraspinatus. The axillary pouch was investigated and loose body was removed. The subscapularis was intact. The arthroscope was then repositioned into the subacromial space and a lateral portal was established. A subacromial decompression with an ArthroCare wand and shaver was performed. There was noted to be anterior spurring of the acromion which was burred to create a flat surface. Performing an anterior acromioplasty. [The bursal side of the rotator cuff was evaluated . Using standard speed bridge fashion 2 medial anchors were placed wedges of the fiber tapes were cut and for individual passes of the rotator cuff were performed then in standard fashion the posterior limb of each of these anchors were secured to a posterior lateral anchor and were tapped into place under tension this was repeated for the anterior 2 limbs. We did have to avoid the previous anchors which added some complexity of the case as there was some residual fiber tape that had to be removed as well. The wound was thoroughly irrigated through the scope followed by a subacromial injection with 8 cc of 0.5% Marcaine plain. Suture portals were closed with 3-0 nylon arthroscopic stitches followed by Xeroform 4 x 4 ABD and a Ioban dressing. A abduction sling and pillow was placed. Anesthesia was reversed and patient tolerated the procedure well was and was transferred to the PACU. All counts were correct patient will follow-up in the office in 2 weeks . Patient may begin active elbow and wrist range of motion and pendulums of the shoulder but no active shoulder motion, dressing is to be left on for 48 hours before being changed daily after showering
[2022-06-04 12:55] LABS: Bedside Glucose 107 mg/dL (74-106)
[2022-06-04] MEDS: Lactated Ringers 1,000 ML 125 ML IV ×2 (13:16→20:23)
[2022-06-04] MEDS: oxyCODONE 5 MG Tablet 10 MG PO ×2 (13:47→22:20)
[2022-06-04] MEDS: Baclofen 10 MG Tablet PO ×2 (13:47→22:21)
--- NOTE | 2022-06-04 14:57 | CASEMGMT ---
Spoke with Lauryn at 's office who states pt will need inpatient therapy at a facility prior to returning home alone. RN CM Assessment: Face to Face with pt for initial transition planning/care coordination assessment. RN CM introduced self and role at [facility], pt voices understanding and consents to assessment. Pt is A/O x4 and answers all questions appropriately at this time. Care providers, pharmacy, and demographics verified/updated. Admitting Dx: R shoulder arthroscopy rev rotator cuff repair vs debridement PCP:Ganesh Specialists:Suki, abhishek; Jasmyne- pt can't think of name; moraima Phillips Preferred Pharmacy: [facility] Insurance: My Care [facility] Prescription Benefit: yes LNOK: RADHA Ribera, luir Living Arrangements: Pt lives alone in a single story home with no steps to enter. Pt reports he was having difficulties managing at home with ADL's prior to surgery but does not have anyone to assist him. Pt receives Mom's meals weekly. Transportation: Pt drives self but states he does not think he will be able to drive after this surgery. DME/HHC/SNF: Pt has a grab bar in the bathroom, a cane and walker at home. Pt has a nurse that comes in weekly to take vital signs and fill his med boxes. He believes this is from [facility] and states his CM is Brenda. Pt has been to [facility] in the past. Pt states he would like to go to [facility] at [facility] for further strengthening prior to returning home. Pt is aware that the will be in to speak with him. Pt states no further concerns/needs. CM to follow. Advised pt to ask CM if any further question/concerns/needs arise, voices understanding. Pt Goal: [facility] Plan: SNF pending therapy eval
--- NOTE | 2022-06-04 15:14 | CASEMGMT ---
Addendum entered by Mima Harmon 06/04/22 15:20: SW called [facility] Jason Burrell ([phone]) and informed pt was admitted to [facility]. SW inquired about pt services and jason reports that pt receives personal care aides [employer] for 2 hours a day and also gets home delivered meals. Original Note: Social Work? SW in to meet with pt following update from RN that pt likely to need placement at nursing facility. SW introduced self and role at the hospital. Pt agreeable to discussing discharge planning. A list of SNF providers including quality and resource use data consistent with the patient?s preferred geographic region, medical needs, and insurance network were provided from the [facility] Guide. Pt reviewed list, informed [facility] would be preference and declined to give alternative options. SW explained will send referral but if [facility] is unable to accept pt will need to pick a few more options. Pt agreeable. SW sent referral to [facility]. PLAN: [facility], pending acceptance and precert ROSALEE Weber?
[2022-06-04] MEDS: Dicyclomine 10 MG Capsule 20 MG PO (16:28)
[2022-06-04] MEDS: Budesonide Respules 0.5 MG/2 ML AMPUL.NEB. INHALATION (18:49)
[2022-06-04] MEDS: Acetaminophen 500 MG Tablet 1000 MG PO (22:20)
[2022-06-04] MEDS: Tamsulosin HCl 0.4 MG Capsule PO (22:21)
[2022-06-04] MEDS: Losartan Potassium 25 MG Tablet PO (22:21)
[2022-06-04] MEDS: Pramipexole Di-HCl 0.25 MG Tablet PO (22:21)
[2022-06-04] MEDS: Doxycycline 100 MG CAPSULE PO (22:22)
[2022-06-04] MEDS: Atorvastatin Calcium 40 MG Tablet PO (22:22)
[2022-06-04] MEDS: OLANZapine 10 MG Tablet PO (22:22)
[2022-06-04] MEDS: traZODone 50 MG Tablet PO (22:22)
[2022-06-04] MEDS: Montelukast 10 MG Tablet PO (22:22)
[2022-06-04] MEDS: Mirtazapine 15 MG Tablet PO (22:33)
[2022-06-05] VITALS (8 sets, daily range): BP systolic 104–139; BP diastolic 60–78; PULSE 67–84; RESP 16–20; TEMP 36.4–37.3; O2SAT 88–97
[2022-06-05] MEDS: Lactated Ringers 1,000 ML 125 ML IV (02:22)
[2022-06-05] MEDS: oxyCODONE 5 MG Tablet 10 MG PO ×2 (02:22→14:10)
[2022-06-05] MEDS: Baclofen 10 MG Tablet PO ×3 (05:54→21:22)
[2022-06-05] MEDS: Dicyclomine 10 MG Capsule 20 MG PO ×2 (05:54→16:43)
[2022-06-05] MEDS: Budesonide Respules 0.5 MG/2 ML AMPUL.NEB. INHALATION ×2 (06:53→19:03)
[2022-06-05] MEDS: Ipratropium/Albuterol Sulfate 3 ML AMPUL.NEB INHALATION ×2 (06:53→19:02)
--- NOTE | 2022-06-05 08:28 | PN.ORTHO_ITS ---
Subjective Subjective Seen and examined. Pain controlled. Denies fevers chills nausea vomiting shortness of breath or chest pain. Objective Data Objective Data Vital Signs: Vital Signs Temp Pulse Resp BP Pulse Ox O2 Del Method O2 Flow Rate 99.2 F H 80 18 113/73 93 Nasal Cannula 2 06/05/22 05:45 06/05/22 06:54 06/05/22 06:54 06/05/22 05:45 06/05/22 06:54 06/05/22 06:54 06/05/22 06:54 Oxygen Flow Rate (L/min) 2 Oxygen Delivery Method Nasal Cannula Weight: 182 lb 5.156 oz Body Mass Index (BMI) 24.7 Intake & Output: Intake and Output for Last 24 Hours 06/03/22 06/04/22 06/05/22 23:59 23:59 23:59 Intake Total 1274.33 / 1274.33 1202.09 / 1202.09 Output Total 1650 / 1650 1999 / 1999 Balance -375.67 / -375.67 -797.91 / -797.91 Lab / Micro Data Result Diagrams: 05/30/22 09:46 Labs: Laboratory Results - last 24 hr 06/04/22 08:02: POC Glucose 103 06/04/22 12:28: POC Glucose 107 H Physical Exam Const alert, oriented x3 and no apparent distress Extremity Extremity Narrative: Right shoulder dressing clean dry intact he is neurovascular intact radial media n ulnar nerve axillary nerve. Palpable radial pulse no significant swelling in chest or arm. Assessment & Plan Assessment/Plan (1) Complete rotator cuff tear: PLAN: Plan Postop day 1 right shoulder revision rotator cuff repair Patient was admitted secondary to age and ability to care for himself on his own he has previously had to go to nursing facility postoperatively for surgeries which is the plan again here Plan for transfer to extended care when bed available today versus tomorrow Resting should be remain intact until 06/07/2022 at which point it should be removed incision should be cleaned daily with antibacterial soap and warm water and a dry dressing replaced Band-Aids
[2022-06-05] MEDS: metFORMIN (XR) 500 MG Tablet PO (08:30)
[2022-06-05] MEDS: Potassium Chloride Oral Tablet 10 MEQ PO (08:30)
[2022-06-05] MEDS: Pantoprazole Sodium 40 MG Tablet PO (09:28)
[2022-06-05] MEDS: lamoTRIgine 100 MG Tablet 200 MG PO (09:28)
[2022-06-05] MEDS: Donepezil HCl 10 MG Tablet PO (09:29)
[2022-06-05] MEDS: Losartan Potassium 25 MG Tablet PO ×2 (09:29→21:23)
[2022-06-05] MEDS: ARIPiprazole 10 MG Tablet PO (09:29)
[2022-06-05] MEDS: Loratadine 10 MG Tablet PO (09:29)
[2022-06-05] MEDS: Doxycycline 100 MG CAPSULE PO ×2 (09:29→21:23)
[2022-06-05] MEDS: Sertraline 100 MG Tablet PO (09:29)
[2022-06-05] MEDS: Fenofibrate 48 MG Tablet PO (09:29)
[2022-06-05] MEDS: Clopidogrel Bisulfate 75 MG Tablet PO (09:29)
--- NOTE | 2022-06-05 11:08 | CASEMGMT ---
Social Work PT and OT evals are in. PEYTON sent these documents to [facility] for determination of acceptance. Will await response. PLAN: [facility], pending acceptance and precert ROSALEE Weber
[2022-06-05] MEDS: Tamsulosin HCl 0.4 MG Capsule PO (21:22)
[2022-06-05] MEDS: OLANZapine 10 MG Tablet PO (21:22)
[2022-06-05] MEDS: 0.9% Saline Lock 10 ML Syringe IV (21:22)
[2022-06-05] MEDS: Pramipexole Di-HCl 0.25 MG Tablet PO (21:23)
[2022-06-05] MEDS: traZODone 50 MG Tablet PO (21:23)
[2022-06-05] MEDS: Montelukast 10 MG Tablet PO (21:23)
[2022-06-05] MEDS: Mirtazapine 15 MG Tablet PO (21:23)
[2022-06-05] MEDS: Atorvastatin Calcium 40 MG Tablet PO (21:23)
[2022-06-06] VITALS (8 sets, daily range): BP systolic 113–144; BP diastolic 59–78; PULSE 65–94; RESP 16–18; TEMP 36.2–36.7; O2SAT 92–96
[2022-06-06] MEDS: Baclofen 10 MG Tablet PO ×3 (05:11→20:30)
[2022-06-06] MEDS: Dicyclomine 10 MG Capsule 20 MG PO ×2 (06:38→16:54)
[2022-06-06] MEDS: Ipratropium/Albuterol Sulfate 3 ML AMPUL.NEB INHALATION ×3 (06:52→19:15)
[2022-06-06] MEDS: Budesonide Respules 0.5 MG/2 ML AMPUL.NEB. INHALATION ×2 (06:52→19:15)
[2022-06-06] MEDS: metFORMIN (XR) 500 MG Tablet PO (08:10)
[2022-06-06] MEDS: Potassium Chloride Oral Tablet 10 MEQ PO (08:11)
--- NOTE | 2022-06-06 08:21 | PCM.PN.ORT ---
Subjective Subjective Seen and examined. Pain controlled no fever chills nausea vomiting shortness of breath or chest pain Objective Data Objective Data Vital Signs: Vital Signs Temp Pulse Resp BP Pulse Ox O2 Del Method O2 Flow Rate 97.6 F L 79 18 121/66 H 92 Room Air 2 06/06/22 05:05 06/06/22 06:53 06/06/22 06:53 06/06/22 05:05 06/06/22 06:53 06/06/22 06:53 06/05/22 08:00 Oxygen Flow Rate (L/min) 2 Oxygen Delivery Method Room Air Weight: 182 lb 5.156 oz Body Mass Index (BMI) 24.7 Intake & Output: Intake and Output for Last 24 Hours 06/04/22 06/05/22 06/06/22 23:59 23:59 23:59 Intake Total 1274.33 / 1274.33 1452.09 / 1452.09 450 / 450 Output Total 1650 / 1650 2850 / 2850 800 / 800 Balance -375.67 / -375.67 -1397.91 / -1397.91 -350 / -350 Lab / Micro Data Result Diagrams: 05/30/22 09:46 Labs: Laboratory Results - last 24 hr 05/30/22 09:47: Miscellaneous Test Physical Exam Const alert, oriented x3 and no apparent distress Extremity Extremity Narrative: Right shoulder dressing clean dry and intact compartments soft neurovascular intact Assessment & Plan Assessment/Plan (1) Complete rotator cuff tear: PLAN: Plan Status post revision rotator cuff repair right shoulder postop day #2 DC to nursing facility today Dressing should be removed and incisions cleaned with antibacterial soap and warm water replaced with dry dressing or Band-Aids beginning 06/07/2022 Follow-up in the office 2 weeks for suture removal. May begin showering 06/07/2022 Demonstrated and should perform at least 3 times a day elbow range of motion and shoulder pendulum exercises but no active lifting of the right shoulder.
--- NOTE | 2022-06-06 08:23 | DCINST_ITS ---
Discharge Instructions Diet Discharge Diet: No restrictions Dressing / Incision Call your doctor if you observe: Shortness of breath and Chest pain Additional Dressing/Incision Instructions:: Leave the dressing on and intact until 06/07/2022 . Then may remove and shower with warm water and antibacterial soap. But do not submerge in tub for 3 weeks. Ice shoulder 15 min on and 15 mins off next 72 hrs. May remove sling for elbow range of motion and pendulum exercises only then replace sling, to preform 3x/day/ Absolutely no active shoulder motion. Do not lift push pull at all with operative extremity . Encourage finger and wrist range of motion. Doxycycline antibiotic has been shown to aid in rotator cuff healing please take as directed . If any concerns call Dr. Cohn's office. f/u in 2 weeks for suture removal. Follow Up Care Please Follow Up With: Miguelangel Cohn DO When: 2 weeks Test Results: Test results from this visit will be discussed in further detail at your follow- up appointment, if applicable. Discharge Plan Admission Admit Date/Time: 06/04/22 07:38 Primary Reason for Your Visit: Revision right shoulder rotator cuff repair Attending Provider: Miguelangel Cohn Primary Care Provider: Ani Andersen Consulting Providers: Sherwin Tompkins Discharge Orders/Prescriptions Prescriptions: New doxycycline monohydrate 100 mg Capsule 100 mg PO BID 30 Days Qty: 60 0RF oxycodone 5 mg tablet 5 - 10 mg PO Q4H PRN (Reason: pain) 7 Days Qty: 60 0RF Continued metformin 500 mg tablet extended release 24 hr 500 mg PO DAILY trazodone 100 mg tablet 50 mg PO QHS dicyclomine 20 mg tablet 20 mg PO BID mirtazapine [Remeron] 15 mg tablet 15 mg PO QHS aripiprazole [Abilify] 10 mg tablet 10 mg PO DAILY icosapent ethyl [Vascepa] 1 gram capsule 2 g PO BID baclofen 10 mg tablet 10 mg PO TID sertraline 100 mg tablet 100 mg PO DAILY fenofibrate 54 mg tablet 54 mg PO DAILY Label Comments: TAKE 1 TABLET BY MOUTH EVERY DAY olanzapine [Zyprexa] 10 mg tablet 10 mg PO QHS donepezil 10 mg tablet 10 mg PO DAILY lamotrigine [Lamictal] 200 mg tablet 200 mg PO DAILY atorvastatin 40 mg tablet 40 mg PO QHS sildenafil 50 mg tablet 50 mg PO ONCE PRN (Reason: sexual activity) Label Comments: TAKE 1 TABLET BY MOUTH TWICE A WEEK NEEDED ONE HOUR BEFORE SEXUAL ACTIVITY Rx Instructions: TAKE 1 TABLET BY MOUTH TWICE A WEEK NEEDED ONE HOUR BEFORE SEXUAL ACTIVITY potassium chloride 10 mEq tablet,ER particles/crystals 10 meq PO DAILY fexofenadine [Jeaneth Allergy] 180 mg tablet 180 mg PO DAILY ropinirole 0.5 MG tablet 0.5 mg PO QHS Label Comments: restless legs tamsulosin 0.4 MG capsule,extended release 24hr 0.4 mg PO QHS omeprazole 40 MG capsule,delayed release(DR/EC) 40 mg PO DAILY clopidogrel 75 mg tablet 75 mg PO DAILY Breztri Aerosphere 160-9-4.8 mcg/actuation HFA aerosol inhaler 2 inh inhalation DAILY acetaminophen 500 mg tablet 1,000 mg PO Q6H PRN PRN (Reason: Pain) losartan 25 mg tablet 25 mg PO BID montelukast 10 mg tablet 10 mg PO QPM albuterol sulfate 2.5 mg /3 mL (0.083 %) solution for nebulization 2.5 mg INHALATION Q8H PRN PRN (Reason: shortness of breath or wheezing) Qty: 180 6RF nitroglycerin [Nitrostat] 0.4 mg tablet, sublingual 0.4 mg sublingual Q5-15M PRN (Reason: chest pain) Qty: 25 3RF Rx Instructions: do not exceed 3 doses per episode albuterol sulfate 90 mcg/actuation HFA aerosol inhaler 2 puff INHALATION Q6H PRN PRN (Reason: Shortness Of Breath) Qty: 8.5 6RF No Action oxycodone 5 mg tablet 5 - 10 mg PO Q4H Rx Instructions: Pain medication can be addictive, sedative and constipating only take as needed. Referrals / Follow Up: Ani Andersen DO [Primary Care Provider] -
--- NOTE | 2022-06-06 08:35 | PCM.TXEXTCAR ---
Diet Diet Order/Speech Therapy: 06/04/22 13:27 Diet: Regular - General Is pt able to select menu?: Yes Wound(s) rt shoulder: Wound Type: Surgical Incision Therapies Weight Bearing: Non weight bearing Extremity Affected:: Right Upper Physical Therapy: Eval and Treat (No AROM. Passive ROM is ok. Encourage elbow range of motion and shoulder pendulum exercises 3 x daily. Passive range of motion is okay) Problem/Diagnosis (1) Complete rotator cuff tear: Status: Acute Code(s): M75.120 - Complete rotator cuff tear or rupture of unspecified shoulder, not specified as traumatic Plan Status post revision rotator cuff repair right shoulder postop day #2 DC to nursing facility today Dressing should be removed and incisions cleaned with antibacterial soap and warm water replaced with dry dressing or Band-Aids beginning 06/07/2022 Follow-up in the office 2 weeks for suture removal. May begin showering 06/07/2022 Demonstrated and should perform at least 3 times a day elbow range of motion and shoulder pendulum exercises but no active lifting of the right shoulder. Allergies/Procedures Done in Hospital Allergies Quinolones Allergy (Unknown, Verified 06/04/22 08:02) unknown aspirin Allergy (Verified 06/04/22 08:02) Itching, Hives levofloxacin [From Levaquin] Allergy (Verified 06/04/22 08:02) Hives, Itching Penicillins Allergy (Verified 06/04/22 08:02) Hives, Itching Type of Care/Length of Stay Estimated LOS: Convalescent Care Less Than 30 days Type of Care Needed: Skilled Rehab Potential: Good Prognosis: Good Additional Orders/Day of Discharge Additional Orders: dressing to be removed , incisions cleaned with warm water and antibacterial soap and replaced daily with light dressing or band aids. Day of Discharge: 06/06/22 Follow Up Care Please Follow Up With: Miguelangel Cohn DO When: 2 weeks Discharge Plan Admission Admit Date/Time: 06/04/22 07:38 Primary Reason for Your Visit: Revision right shoulder rotator cuff repair Attending Provider: Miguelangel Cohn Primary Care Provider: Ani Andersen Consulting Providers: Sherwin Tompkins Discharge Orders/Prescriptions Prescriptions: New doxycycline monohydrate 100 mg Capsule 100 mg PO BID 30 Days Qty: 60 0RF oxycodone 5 mg tablet 5 - 10 mg PO Q4H PRN (Reason: pain) 7 Days Qty: 60 0RF Continued metformin 500 mg tablet extended release 24 hr 500 mg PO DAILY trazodone 100 mg tablet 50 mg PO QHS dicyclomine 20 mg tablet 20 mg PO BID mirtazapine [Remeron] 15 mg tablet 15 mg PO QHS aripiprazole [Abilify] 10 mg tablet 10 mg PO DAILY icosapent ethyl [Vascepa] 1 gram capsule 2 g PO BID baclofen 10 mg tablet 10 mg PO TID sertraline 100 mg tablet 100 mg PO DAILY fenofibrate 54 mg tablet 54 mg PO DAILY Label Comments: TAKE 1 TABLET BY MOUTH EVERY DAY olanzapine [Zyprexa] 10 mg tablet 10 mg PO QHS donepezil 10 mg tablet 10 mg PO DAILY lamotrigine [Lamictal] 200 mg tablet 200 mg PO DAILY atorvastatin 40 mg tablet 40 mg PO QHS sildenafil 50 mg tablet 50 mg PO ONCE PRN (Reason: sexual activity) Label Comments: TAKE 1 TABLET BY MOUTH TWICE A WEEK NEEDED ONE HOUR BEFORE SEXUAL ACTIVITY Rx Instructions: TAKE 1 TABLET BY MOUTH TWICE A WEEK NEEDED ONE HOUR BEFORE SEXUAL ACTIVITY potassium chloride 10 mEq tablet,ER particles/crystals 10 meq PO DAILY fexofenadine [Jeaneth Allergy] 180 mg tablet 180 mg PO DAILY ropinirole 0.5 MG tablet 0.5 mg PO QHS Label Comments: restless legs tamsulosin 0.4 MG capsule,extended release 24hr 0.4 mg PO QHS omeprazole 40 MG capsule,delayed release(DR/EC) 40 mg PO DAILY clopidogrel 75 mg tablet 75 mg PO DAILY Gabrielletri Aerosphere 160-9-4.8 mcg/actuation HFA aerosol inhaler 2 inh inhalation DAILY acetaminophen 500 mg tablet 1,000 mg PO Q6H PRN PRN (Reason: Pain) losartan 25 mg tablet 25 mg PO BID montelukast 10 mg tablet 10 mg PO QPM albuterol sulfate 2.5 mg /3 mL (0.083 %) solution for nebulization 2.5 mg INHALATION Q8H PRN PRN (Reason: shortness of breath or wheezing) Qty: 180 6RF nitroglycerin [Nitrostat] 0.4 mg tablet, sublingual 0.4 mg sublingual Q5-15M PRN (Reason: chest pain) Qty: 25 3RF Rx Instructions: do not exceed 3 doses per episode albuterol sulfate 90 mcg/actuation HFA aerosol inhaler 2 puff INHALATION Q6H PRN PRN (Reason: Shortness Of Breath) Qty: 8.5 6RF No Action oxycodone 5 mg tablet 5 - 10 mg PO Q4H Rx Instructions: Pain medication can be addictive, sedative and constipating only take as needed. Referrals / Follow Up: Ani Andersen DO [Primary Care Provider] -
--- NOTE | 2022-06-06 08:38 | DS.PCM_ITS ---
Providers Date of Admission: 06/04/22 Primary Care Physician: Dr. Ani Andersen DO Reason For Visit: RT SHLDR ARTHROSCOPY REV ROTATOR CUFF REP VS DEBRI Diagnosis Discharge Diagnosis (1) Complete rotator cuff tear: Status: Acute Code(s): M75.120 - Complete rotator cuff tear or rupture of unspecified shoulder, not specified as traumatic Plan Status post revision rotator cuff repair right shoulder postop day #2 DC to nursing facility today Dressing should be removed and incisions cleaned with antibacterial soap and warm water replaced with dry dressing or Band-Aids beginning 06/07/2022 Follow-up in the office 2 weeks for suture removal. May begin showering 06/07/2022 Demonstrated and should perform at least 3 times a day elbow range of motion and shoulder pendulum exercises but no active lifting of the right shoulder. Medications at Discharge Home Medications ropinirole 0.5 mg tablet 0.5 mg PO QHS LEGS 04/23/16 tamsulosin 0.4 mg capsule 0.4 mg PO QHS PROSTATE 01/30/17 omeprazole 40 mg capsule,delayed release 40 mg PO DAILY GERD 07/30/19 metformin 500 mg tablet,extended release 24 hr 500 mg PO DAILY DIABETES 09/01/20 aripiprazole 10 mg tablet (Abilify) 10 mg PO DAILY ANXIETY 11/09/20 baclofen 10 mg tablet 10 mg PO TID PAIN 11/09/20 dicyclomine 20 mg tablet 20 mg PO BID STOMACH 11/09/20 icosapent ethyl 1 gram capsule (Vascepa) 2 g PO BID HEART 11/09/20 mirtazapine 15 mg tablet (Remeron) 15 mg PO QHS RLS 11/09/20 trazodone 100 mg tablet 50 mg PO QHS SLEEP 11/09/20 sertraline 100 mg tablet 100 mg PO DAILY DEPPRESSION 05/18/21 albuterol sulfate 2.5 mg/3 mL (0.083 %) solution for nebulization 2.5 mg (3 mL) inhalation Q8H PRN PRN shortness of breath or wheezing #180 mL 08/20/21 fexofenadine 180 mg tablet (Jeaneth Allergy) 180 mg PO DAILY ALLEGERGIES 09/28/21 potassium chloride 10 mEq tablet,extended release(part/cryst) 10 meq PO DAILY SUPPLEMENT 09/28/21 sildenafil 50 mg tablet 50 mg PO ONCE PRN sexual activity 09/28/21 nitroglycerin 0.4 mg sublingual tablet (Nitrostat) 0.4 mg sublingual Q5-15M PRN chest pain #25 tabs 10/12/21 atorvastatin 40 mg tablet 40 mg PO QHS CHOLESTEROL 10/23/21 donepezil 10 mg tablet 10 mg PO DAILY ALZHEIMERS 10/23/21 fenofibrate 54 mg tablet 54 mg PO DAILY CHOLESTEROL 10/23/21 lamotrigine 200 mg tablet (Lamictal) 200 mg PO DAILY Check with primary doctor 10/23/21 olanzapine 10 mg tablet (Zyprexa) 10 mg PO QHS Check with primary doctor 10/23/21 albuterol sulfate 90 mcg/actuation aerosol inhaler 2 puff inhalation Q6H PRN PRN Shortness Of Breath #8.5 grams 12/24/21 budesonide 160 mcg-glycopyr 9 mcg-formot 4.8 mcg/actuation HFA inhaler (Breztri Aerosphere) 2 inh inhalation DAILY COPD 02/04/22 clopidogrel 75 mg tablet 75 mg PO DAILY BLOOD THINNER 02/04/22 acetaminophen 500 mg tablet 1,000 mg PO Q6H PRN PRN Pain 05/28/22 losartan 25 mg tablet 25 mg PO BID BP 05/28/22 montelukast 10 mg tablet 10 mg PO QPM ALLERGIES 05/28/22 oxycodone 5 mg tablet 5 - 10 mg PO Q4H PAIN 05/28/22 doxycycline monohydrate 100 mg capsule 100 mg PO BID 30 days #60 caps 06/06/22 oxycodone 5 mg tablet 5 - 10 mg PO Q4H PRN pain 7 days #60 tabs 06/06/22 Hospital Course Summary of Care Provided Hospital Course: Blane has previously undergone right shoulder rotator cuff repair this past February. He was doing well and then had a fall reinjuring the shoulder and retearing his rotator cuff this time full-thickness supraspinatus and infraspinatus. He did attempt physical therapy and was unable to get any compensation out of the shoulder and did wish to undergo revision right shoulder rotator cuff repair. He arm underwent the a forementioned procedure on the date of admission without any intraoperative complication. He will be discharged and start passive shoulder range of motion but no active shoulder range of motion. He will also start elbow exercise range of motion immediately. He will follow- up in the office in 2 weeks. No intrahospital complications Weight / BMI Weight Weight: 182 lb 5.156 oz Body Mass Index (BMI) 24.7 ABG / Lab / Microbiology Data Result Diagrams: 05/30/22 09:46 Laboratory: Laboratory Results - last 24 hr 05/30/22 09:47: Miscellaneous Test D/C Instructions Discharge Diet: No restrictions Call your doctor if you observe: Shortness of breath and Chest pain Additional Dressing/Incision Instructions: Leave the dressing on and intact until 06/07/2022 . Then may remove and shower with warm water and antibacterial soap. But do not submerge in tub for 3 weeks. Ice shoulder 15 min on and 15 mins off next 72 hrs. May remove sling for elbow range of motion and pendulum exercises only then replace sling, to preform 3x/day/ Absolutely no active shoulder motion. Do not lift push pull at all with operative extremity . Encourage finger and wrist range of motion. Doxycycline antibiotic has been shown to aid in rotator cuff healing please take as directed . If any concerns call Dr. Cohn's office. f/u in 2 weeks for suture removal. Please Follow Up With: Miguelangel Cohn DO When: 2 weeks Meaningful Use Info Meaningful Use Diagnoses (Choose all that apply): None applicable Discharge Plan Admission Admit Date/Time: 06/04/22 07:38 Primary Reason for Your Visit: Revision right shoulder rotator cuff repair Attending Provider: Miguelangel Cohn Primary Care Provider: Ani Andersen Consulting Providers: Sherwin Tompkins Discharge Orders/Prescriptions Prescriptions: New doxycycline monohydrate 100 mg Capsule 100 mg PO BID 30 Days Qty: 60 0RF oxycodone 5 mg tablet 5 - 10 mg PO Q4H PRN (Reason: pain) 7 Days Qty: 60 0RF Continued metformin 500 mg tablet extended release 24 hr 500 mg PO DAILY trazodone 100 mg tablet 50 mg PO QHS dicyclomine 20 mg tablet 20 mg PO BID mirtazapine [Remeron] 15 mg tablet 15 mg PO QHS aripiprazole [Abilify] 10 mg tablet 10 mg PO DAILY icosapent ethyl [Vascepa] 1 gram capsule 2 g PO BID baclofen 10 mg tablet 10 mg PO TID sertraline 100 mg tablet 100 mg PO DAILY fenofibrate 54 mg tablet 54 mg PO DAILY Label Comments: TAKE 1 TABLET BY MOUTH EVERY DAY olanzapine [Zyprexa] 10 mg tablet 10 mg PO QHS donepezil 10 mg tablet 10 mg PO DAILY lamotrigine [Lamictal] 200 mg tablet 200 mg PO DAILY atorvastatin 40 mg tablet 40 mg PO QHS sildenafil 50 mg tablet 50 mg PO ONCE PRN (Reason: sexual activity) Label Comments: TAKE 1 TABLET BY MOUTH TWICE A WEEK NEEDED ONE HOUR BEFORE SEXUAL ACTIVITY Rx Instructions: TAKE 1 TABLET BY MOUTH TWICE A WEEK NEEDED ONE HOUR BEFORE SEXUAL ACTIVITY potassium chloride 10 mEq tablet,ER particles/crystals 10 meq PO DAILY fexofenadine [Jeaneth Allergy] 180 mg tablet 180 mg PO DAILY ropinirole 0.5 MG tablet 0.5 mg PO QHS Label Comments: restless legs tamsulosin 0.4 MG capsule,extended release 24hr 0.4 mg PO QHS omeprazole 40 MG capsule,delayed release(DR/EC) 40 mg PO DAILY clopidogrel 75 mg tablet 75 mg PO DAILY Breztri Aerosphere 160-9-4.8 mcg/actuation HFA aerosol inhaler 2 inh inhalation DAILY acetaminophen 500 mg tablet 1,000 mg PO Q6H PRN PRN (Reason: Pain) losartan 25 mg tablet 25 mg PO BID montelukast 10 mg tablet 10 mg PO QPM albuterol sulfate 2.5 mg /3 mL (0.083 %) solution for nebulization 2.5 mg INHALATION Q8H PRN PRN (Reason: shortness of breath or wheezing) Qty: 180 6RF nitroglycerin [Nitrostat] 0.4 mg tablet, sublingual 0.4 mg sublingual Q5-15M PRN (Reason: chest pain) Qty: 25 3RF Rx Instructions: do not exceed 3 doses per episode albuterol sulfate 90 mcg/actuation HFA aerosol inhaler 2 puff INHALATION Q6H PRN PRN (Reason: Shortness Of Breath) Qty: 8.5 6RF No Action oxycodone 5 mg tablet 5 - 10 mg PO Q4H Rx Instructions: Pain medication can be addictive, sedative and constipating only take as needed. Referrals / Follow Up: Ani Andersen DO [Primary Care Provider] -
[2022-06-06] MEDS: ARIPiprazole 10 MG Tablet PO (09:04)
[2022-06-06] MEDS: Doxycycline 100 MG CAPSULE PO ×2 (09:05→20:30)
[2022-06-06] MEDS: Losartan Potassium 25 MG Tablet PO ×2 (09:05→20:33)
[2022-06-06] MEDS: Clopidogrel Bisulfate 75 MG Tablet PO (09:05)
[2022-06-06] MEDS: Donepezil HCl 10 MG Tablet PO (09:05)
[2022-06-06] MEDS: lamoTRIgine 100 MG Tablet 200 MG PO (09:05)
[2022-06-06] MEDS: Loratadine 10 MG Tablet PO (09:05)
[2022-06-06] MEDS: Pantoprazole Sodium 40 MG Tablet PO (09:06)
[2022-06-06] MEDS: Sertraline 100 MG Tablet PO (09:06)
[2022-06-06] MEDS: Fenofibrate 48 MG Tablet PO (09:06)
--- NOTE | 2022-06-06 17:12 | CASEMGMT ---
Social Work SW received message for [facility] that pt has been accept and precert obtained. Physician updated and pt is ready for discharge today. 7000 exemption form completed in [facility] and sent along with discharge orders to [facility]. SW met with pt and he is agreeable to discharge plan. [facility] arranged [facility] for 7:30 grape picker via [facility]. [facility] and nursing made aware. Pt states he will contact family regarding discharge. Discharge summary sent to [employer] Brenda Burrell. Disposition: [facility], skilled level of care under convalescent stay ROSALEE Gutierrez
[2022-06-06] MEDS: Atorvastatin Calcium 40 MG Tablet PO (20:29)
[2022-06-06] MEDS: Montelukast 10 MG Tablet PO (20:30)
[2022-06-06] MEDS: OLANZapine 10 MG Tablet PO (20:30)
[2022-06-06] MEDS: Tamsulosin HCl 0.4 MG Capsule PO (20:30)
[2022-06-06] MEDS: Pramipexole Di-HCl 0.25 MG Tablet PO (20:30)
[2022-06-06] MEDS: Mirtazapine 15 MG Tablet PO (20:30)
[2022-06-06] MEDS: traZODone 50 MG Tablet PO (20:30)
[2022-06-06] MEDS: oxyCODONE 5 MG Tablet 10 MG PO (20:37)
[2022-06-06] MEDS: Acetaminophen 500 MG Tablet 1000 MG PO (20:37)
== END 2022-06-07 00:15 | disposition skilled nursing facility (03) | DRG 502 ==
LOC: ACINP 07:41 → MS3 11:39
PROVIDERS: Anesthesiology; Anesthesiology Pain Medicine; Admitting Provider Orthopaedic Surgery; PCP Internal Medicine; Visit Provider Orthopaedic Surgery
PROC: 0LM14ZZ Reattachment of Right Shoulder Tendon, Percutaneous Endoscopic Approach (ICD-10-PCS; CPT 29827; principal; 2022-06-04 09:50)
DX: S46.011A Strain of muscle(s) and tendon(s) of the rotator cuff of right shoulder, initial encounter (principal); E11.9 Type 2 diabetes mellitus without complications; F03.90 Unspecified dementia, unspecified severity, without behavioral disturbance, psychotic disturbance, mood disturbance, and anxiety; J43.9 Emphysema, unspecified; E78.00 Pure hypercholesterolemia, unspecified; I25.10 Atherosclerotic heart disease of native coronary artery without angina pectoris; M17.12 Unilateral primary osteoarthritis, left knee; I10 Essential (primary) hypertension; I25.2 Old myocardial infarction; W19.XXXA Unspecified fall, initial encounter; Z95.5 Presence of coronary angioplasty implant and graft; Z79.02 Long term (current) use of antithrombotics/antiplatelets; Z79.84 Long term (current) use of oral hypoglycemic drugs; Z79.899 Other long term (current) drug therapy; Z87.891 Personal history of nicotine dependence
CPT/HCPCS: 36415; 80307; 82962; 83036; 85027; 87426; 94640; 94668; 97110; 97116; 97162; 97166; 97530; 97535; 99252; J7120; A4216; G0463; J2405

== ENCOUNTER → 2022-08-08 | Outpatient (CLI) | payer MEDICARE, MEDICAID, SELFPAY ==
[2018-10-16 10:45] VITALS: BMI 21.8
--- NOTE | 2022-08-08 16:43 | CT_ITS ---
STUDY: LOW DOSE CT LUNG CANCER SCREENING REASON FOR EXAM: Male, 72 years old. 40+ pack year history of smoking, quit x3 years RADIATION DOSAGE (If Supplied By Facility): CTDIvol = ( 3.02 ) mGy, DLP = ( 108.72 ) mGycm TECHNIQUE: No contrast was administered. Low dose technique was utilized (average mAS-38 and kVp 120). 1.25 mm axial source images with a slice interval of 1.25-mm were reconstructed in lung windows. 2.5 mm axial source images with a slice interval of 2.5-mm were reconstructed in lung windows. 5.0 mm axial source images with a slice interval of 5.0-mm were reconstructed in soft tissue windows. COMPARISON: 08/25/2020 Findings: Lung windows show lungs to be hyperexpanded with chronic interstitial changes no superimposed infiltrate effusion or suspicious noncalcified mass or nodule. Chronic interstitial changes are noted with nonspecific pleural thickening. The previously noted faint 3.1 mm nodule in the right upper lobe is less conspicuous on current study measuring only 2.5 mm. No specific follow-up is needed for this. The soft tissue windows show normal-appearing thyroid gland. No suspicious adenopathy. There are calcified coronary vessels. Limited cuts through the upper abdomen do not show a suspicious abnormality. Bony structures show degenerative change CT/Low Dose CT Lung Screening IMPRESSION: Lung-RADS category 2 - Continue annual screening with LDCT in 12 months. IMPORTANT NOTES FOR USE: ACR Lung-RADS Version 1.1 Assessment Categories Release Date: 2018 Category: Coded 0-4 bases on nodule(s) with highest degree of suspicion. Negative screen is defined as categories 1 and 2; a positive screen is defined as categories 3 and 4. Category 3 and 4A nodules that are unchanged on interval CT should be coded as category 2, and individuals returned to screening in 12 months. Category 4X: Category 3 or 4 nodules with additional imaging findings that increase the suspicion of lung cancer, such as spiculation, GGN that doubles in size in 1 year, enlarged lymph notes, etc. Category Modifiers: S (significant finding unrelated to lung cancer) Electronically Signed: Ish Estrella MD at 14:56 EDT ,
== END | disposition home or self-care (01) ==
LOC: CT 16:42
PROVIDERS: PCP Internal Medicine; Referring Provider Nurse Practitioner Acute Care; Visit Provider Nurse Practitioner Acute Care
DX: F17.210 Nicotine dependence, cigarettes, uncomplicated (principal)
CPT/HCPCS: 71271

== ENCOUNTER 2022-08-26 13:00 | Outpatient (RCR) | payer MEDICARE, MEDICAID, SELFPAY ==
[2018-10-16 10:45] VITALS: BMI 21.8
--- NOTE | 2022-06-26 15:08 | HP.PTEVAL_ITS ---
Patient's Visit Information LILLIAN GUERRERO is a 72 year old M referred to Physical Therapy by Dr. Miguelangel Cohn DO with a diagnosis of R RCT s/p repair 06/04/22. Date of Evaluation: 06/26/22 Physical Therapist: Min Nix, DPT, OCS, CSCS - Visit Plan Frequency: 2-3x /Week Duration: 3 Months Plan: 3x/week for 3 week for phase 1 PROM until end of June then 1-2x/week for progression through phase 2 in July and phase 3 June as allowed by doctor. ice as needed, progression of function. - Subjective R RCR 06/04/22(had previous one in January). he reinjured it when he fell on it in january shortly after he had it fixed. In sling with abductor wedge since. Out of it just seldomly. using cane now to avoid falling asL knee hurts at times. Pain in shoulder is 6-8/10. Sometimes it does not hurt like in the mornings. Sleeps in bed and is sleeping OK on l side with R arm in sling. HEP: pendulum 3x/day. Basic ADLs I with L hand but is slow and labored as he is right handed. Retired. Hobbies: wants to fish. Lives alone in one story house without steps. No falls recently as cane helps. - Pain R shoulder Pain Intensity (Out of 10): 3 Pain Intensity Range: 0, 8 Comment: worse with walking - Objective Good balance with cane as he walks. Able to stand without cane and ambulate without it with fair balance, recommend he uses it right now. Sling on with abductor wedge upon arrival and dons and doffs I. Forward head posture. wrist, elbow AROM WFL and symmetrical B. scapular AROM at slight deficit R vs L in depression and retraction but functional. Cervical aROM limited normal for him but not painful. PROM R shoulder...flexion 110, abductor 100, 45 ext rotation and 70 IR at 80 abduction. L AROM 150 flexion and abduction, 70 ext rotation and l3 IR. - Balance/Special Test Scores Quick DASH Score: 86.3625 - Goals Goal 1:: ST: 4 week full PROM to 155 flexion 150 abd, 70 ext rotation and pain 2/10 at worst and infrequent. Goal Time Frame: 2-4 Weeks Goal 2:: LT : Full aROM R shoulder to above numbers actively Goal Time Frame: 8-12 Weeks Goal 3:: LT : normal ADLs without pain Goal Time Frame: 8-12 Weeks Goal 4:: Pt feel 90% back to normal activity Goal Time Frame: 8-12 Weeks Goal 5:: quickdash score 15 or less Goal Time Frame: 8-12 Weeks - Rehabilitation Potential Physical Therapy Diagnosis: R shoulder weakness and mobility problems from repair limitations Rehabilitation Potential: Good - Anticipated Interventions Patient/Client Instruction: Educate patient on: Condition, Risk Factors For the Purpose of:: To decrease pain, To decrease swelling/inflammation, To increase ROM, To improve nutrient delivery to tissue, To improve muscle perform ance and motor function, To increase tolerance to activity/condition/position, To improve ability of physical actions for home/community/work/leisure, To improve gait and locomotor functions Therapeutic Exercise to Include: Strength training, Postural training, Flexibilty training, Passive ROM, Active ROM For the Purpose of:: To decrease pain, To increase ROM, To improve nutrient delivery to tissue, To improve muscle performance and motor function, To increase tolerance to activity/condition/position, To improve ability of physical actions for home/community/work/leisure, To improve gait and locomotor functions Manual Therapy Techniques to Include: Scar massage, Passive ROM, Soft tissue mobilization For the Purpose of:: To decrease pain, To increase ROM, To improve nutrient delivery to tissue Cryotherapy (ice pack, ice massage): Yes For the Purpose of:: To decrease swelling/inflammation Thank you for the opportunity to evaluate your patient. For Medicare and Medicare HMO plans, please review the plan of care and approve it. It will need to be FAXED BACK to us at [phone] for Medicare purposes. For Medicare only, by signing this I certify the plan of care. Please let me know if there are questions or concerns regarding this plan of care. Physician Signature: Date:
--- NOTE | 2022-08-28 14:00 | HP.PTREVAL ---
Dr. Miguelangel Cohn, DO, It has been my pleasure to treat LILLIAN GUERRERO over the last 15 visits for R RCT s/p repair 06/04/22. Please see the progress note below for an update on the physical therapy plan of care! Subjective: Knee and L shoulder hurt, will get injection in two weeks. r shoulder hurts from elbow up. Bautista and stings all the time. To doctor this past week adn thought R shoulder was looking good. 5/10 all the time. Overall it is improving. ROM is good. HEP : wall flexion, cane OH seated. Hard to recall for him. Activities at home show weakness but otherwise can move it. ADLS going OK. Using GTB for ex at home. Objective/Function: AROM R shoulder 155 elevation adn 45 er and L3 IR, slow but no increased pain past baseline 10. L shoulder is hesitant and painful but can still get similar ROM just much more difficult. Pt is doing well on R shoulder but still painful L . Appropriate to cotninue HEP on R and await injection on L, then return to PT for recheck adn progression to elevation ex R adn ensure ROM and phase 3 on L. Fair prognosis. Plan Plan: f/u after in L shoulder injection to progress to elevation ex R adn phase 3 L if feeling better. Balance/Gait/Functional tests - Balance/Special Test Scores Quick DASH Score: 86.3625 Goals Goal 1:: ST: 4 week full PROM to 155 flexion 150 abd, 70 ext rotation and pain 2/10 at worst and infrequent. Goal Time Frame: 2-4 Weeks Goal Progress: Goal Met except 55 Goal 2:: LT : Full aROM R shoulder to above numbers actively Goal Time Frame: 8-12 Weeks Goal Progress: Goal Met Goal 3:: LT : normal ADLs without pain Goal Time Frame: 8-12 Weeks Goal Progress: Goal Met R but not L. Goal 4:: Pt feel 90% back to normal activity Goal Time Frame: 8-12 Weeks Goal Progress: 85 Goal 5:: quickdash score 15 or less Goal Time Frame: 8-12 Weeks Goal Progress: Progressing Goal 6:: I final HEP for B shoulder strength adn ROM management. Goal Time Frame: 2-4 Weeks Goal Progress: NEW GOAL Anticipated Interventions Patient/Client Instruction: Educate patient on: Condition, Risk Factors For the Purpose of:: To decrease pain, To decrease swelling/inflammation, To increase ROM, To improve nutrient delivery to tissue, To improve muscle performance and motor function, To increase tolerance to activity/condition/position, To improve ability of physical actions for home/community/work/leisure, To improve gait and locomotor functions Therapeutic Exercise to Include: Strength training, Postural training, Flexibilty training, Passive ROM, Active ROM For the Purpose of:: To decrease pain, To increase ROM, To improve nutrient delivery to tissue, To improve muscle performance and motor function, To increase tolerance to activity/condition/position, To improve ability of physical actions for home/community/work/leisure, To improve gait and locomotor functions Manual Therapy Techniques to Include: Scar massage, Passive ROM, Soft tissue mobilization For the Purpose of:: To decrease pain, To increase ROM, To improve nutrient delivery to tissue Cryotherapy (ice pack, ice massage): Yes For the Purpose of:: To decrease swelling/inflammation Please do not hesitate to contact me at [phone] by phone or if you have questions or concerns regarding this new plan of care! Sincerely, Min Nix, DPT, OCS, CSCS
--- NOTE | 2022-10-25 13:58 | HP.PTDCNRP_ITS ---
Patient Information Patient Information: LILLIAN GUERRERO was seen in my office for initial evaluation on 06/26/22. The following Plan of Care was established for this patient: POC Established Initial Frequency: 2-3x /Week Initial Duration: 3 Months Anticipated Interventions Patient/Client Instruction: Educate patient on: Condition and Risk Factors For the Purpose of:: To decrease pain, To decrease swelling/inflammation, To increase ROM, To improve nutrient delivery to tissue, To improve muscle performance and motor function, To increase tolerance to activity/condition/posi tion, To improve ability of physical actions for home/community/work/leisure and To improve gait and locomotor functions Therapeutic Exercise to Include: Strength training, Postural training, Flexibilty training, Passive ROM and Active ROM For the Purpose of:: To decrease pain, To increase ROM, To improve nutrient delivery to tissue, To improve muscle performance and motor function, To increase tolerance to activity/condition/position, To improve ability of physical actions for home/community/work/leisure and To improve gait and locomotor functions Manual Therapy Techniques to Include: Scar massage, Passive ROM and Soft tissue mobilization For the Purpose of:: To decrease pain, To increase ROM and To improve nutrient delivery to tissue Cryotherapy (ice pack, ice massage): Yes For the Purpose of:: To decrease swelling/inflammation Last Seen Last Seen: This patient was last seen in our office 08/28/22. Pertinent comments regarding their Physical therapy will appear below: Pt seen 15 visits of POC and was 85% better. he was to f/u as needed after doctor visit for possible injection from his point of view but did not return to therapy. At this point, it has been over 7 weeks and I will discontinue due to nonattendance. At this point I will be discontinuing this patient from physical therapy. I would be happy to see this patient again in the future if found appropriate by the physician. Thank you! Min Nix, DPT, OCS, CSCS Balance/Gait/Functional tests Balance/Special Test Scores Quick DASH Score: 86.3626
== END 2022-08-26 19:00 | disposition home or self-care (01) ==
LOC: PT 13:00
PROVIDERS: PCP Internal Medicine; Referring Provider Orthopaedic Surgery; Visit Provider Orthopaedic Surgery
DX: M75.82 Other shoulder lesions, left shoulder (principal); M75.120 Complete rotator cuff tear or rupture of unspecified shoulder, not specified as traumatic; G89.18 Other acute postprocedural pain; Z47.89 Encounter for other orthopedic aftercare
CPT/HCPCS: 97110; 97140; 97161

== ENCOUNTER 2022-11-11 13:51 | Emergency (ER) | payer MEDICARE, MEDICAID, SELFPAY ==
[2018-10-16 10:45] VITALS: BMI 21.8
[2022-11-11 13:52] VITALS: BP 139/78; PULSE 82; RESP 14; TEMP 36.4; O2SAT 99; BMI 24.3
--- NOTE | 2022-11-11 15:08 | CT_ITS ---
STUDY: CT ABDOMEN AND PELVIS WITH CONTRAST REASON FOR EXAM: Male, 72 years old patient with abdominal pain, nausea, vomiting and diarrhea. RADIATION DOSAGE (If Supplied By Facility): CTDIvol = ( 22.86 ) mGy, DLP = ( 806.82 ) mGycm TECHNIQUE: Transaxial images were obtained from the dome of the diaphragm to the symphysis pubis without oral contrast. 100 mL of Isovue-300 was administered. Sagittal and coronal images were reconstructed. Individualized dose optimization techniques were used for this CT. COMPARISON: None. FINDINGS: The visualized lung bases are unremarkable. The visualized portions of the heart are within normal limits. Normal liver. There is non-visualization of the gallbladder, which may be secondary to either contraction or a prior cholecystectomy. Normal spleen. Normal pancreas. Normal bilateral adrenal glands. The right-sided renal cyst measuring approximately 2.2 cm. There is no obvious hydronephrosis, hydroureter or radiopaque ureteral calculus. Normal left kidney. Normal visualized stomach. There is no obvious dilated bowel, ascites or pneumoperitoneum. Small bowel has a grossly normal appearance. There is nonspecific thickening of the marinelli of the sigmoid colon suggesting possible sequela of infectious or inflammatory colitis. There are scattered colonic diverticula. The rest of the colon has a normal appearance. There are surgical clips in the region of the appendix consistent with a prior appendectomy. There is multifocal atherosclerotic calcification of the abdominal aorta and iliac arteries, without a demonstrated aneurysm. Normal inferior vena cava. Normal retroperitoneum. Normal urinary bladder. There is enlargement of the prostate gland. Normal abdominal wall. The bones are osteopenic. There is multilevel spondylosis of the imaged thoracic and lumbar spine. There is moderate central canal stenosis at L4-5. The bony pelvis is within normal limits in appearance. CT/Abdomen/Pelvis W IV Cont ONLY IMPRESSION: Findings suggest possible sequela of infectious or inflammatory sigmoid colitis. Electronically Signed: Moira Rudolph MD at 17:05 EDT ,
--- NOTE | 2022-11-11 15:09 | ED.VIS.GI ---
HPI HPI - GI History of Present Illness Chief Complaint: Abd Pain Informant: patient Narrative Narrative: Patient presents with abdominal pain and diarrhea. Patient states his symptoms started about 3 weeks ago. The abdominal pain is scant and diffuse central abdomen. He has a hernia but is not just located there. He states he has not had nausea and vomiting. He still has an appetite. But anytime he eats or drinks anything he has a bowel movement. It is loose stool. It is not watery. It has never been black or bloody. He is on Plavix but no other significant anticoagulation. He has had appendectomy and has had hernia repair supraumbilical region twice. Still has gallbladder. His last colonoscopy was years ago. No known history of diverticular disease. Patient states he does have irritable bowel and has had it for decades. He thinks that might be what this is but he just wishes the symptoms would calm down. He has never had Crohn's or ulcerative colitis. He has not been having fevers. He has no urinary symptoms. No change in medications or activity. He has not had any antibiotics in a long time. No history of C. difficile. [facility] Medical History (Updated 11/11/22 @ 17:[address] Clement Kaur MD) Alcohol use Ambulates with cane Anxiety Arthritis Asthma Atherosclerotic heart disease of [place] coronary artery without angina pectoris Back pain Bipolar disorder BPH (benign prostatic hyperplasia) Brachial neuritis (05/31/11) Cannabis dependence Cardiology follow-up encounter Cervical radiculitis Cervical spondylosis Chest pain Chest tightness Chronic obstructive lung disease (08/02/20) COPD (chronic obstructive pulmonary disease) CPAP (continuous positive airway pressure) dependence DDD (degenerative disc disease) Dementia Dementia Depression Diabetes Dietary restriction Displacement of lumbar intervertebral disc without myelopathy (03/01/11) Dyspnea on exertion Emphysema, unspecified Essential (primary) hypertension Essential hypertension (08/02/20) Fatigue Former smoker GERD (gastroesophageal reflux disease) High cholesterol History of CHF (congestive heart failure) History of echocardiogram History of IBS History of irregular heartbeat History of pain when walking History of pulmonary embolism History of stress test Hyperlipidemia Hypertension Low back pain (03/01/11) Lung nodule < 6cm on CT Malaise and fatigue (08/02/20) Marijuana use Migraines Myocardial infarct Neck pain (03/01/11) Neck sprain (12/16/11) MONIQUE (obstructive sleep apnea) Pain of left knee and lower leg Partial tear of right rotator cuff Peptic ulcer disease Pleurisy Prostate disease PVCs (premature ventricular contractions) Restless leg syndrome Schizophrenia Shortness of breath on exertion Sleep apnea Smoking greater than 40 pack years Stage 2 moderate COPD by GOLD classification Syncope and collapse Trigger finger Wears glasses Wheezing Home Medications ropinirole 0.5 mg tablet 0.5 mg PO QHS LEGS 04/23/16 [History Last Taken 07/29/19] tamsulosin 0.4 mg capsule 0.4 mg PO QHS PROSTATE 01/30/17 [History Last Taken 07/29/19] omeprazole 40 mg capsule,delayed release 40 mg PO DAILY GERD 07/30/19 [History Last Taken 07/30/19] metformin 500 mg tablet,extended release 24 hr 500 mg PO DAILY DIABETES 09/01/20 [History Last Taken 11/12/21] aripiprazole 10 mg tablet (Abilify) 10 mg PO DAILY ANXIETY 11/09/20 [History Last Taken Unknown] baclofen 10 mg tablet 10 mg PO TID PAIN 11/09/20 [History Last Taken Unknown] icosapent ethyl 1 gram capsule (Vascepa) 2 g PO BID HEART 11/09/20 [History Last Taken Unknown] mirtazapine 15 mg tablet (Remeron) 15 mg PO QHS RLS 11/09/20 [History Last Taken Unknown] trazodone 100 mg tablet 50 mg PO QHS SLEEP 11/09/20 [History Last Taken Unknown] sertraline 100 mg tablet 100 mg PO DAILY DEPPRESSION 05/18/21 [History Last Taken Unknown] potassium chloride 10 mEq tablet,extended release(part/cryst) 10 meq PO DAILY SUPPLEMENT 09/28/21 [History Last Taken Unknown] nitroglycerin 0.4 mg sublingual tablet (Nitrostat) 0.4 mg sublingual Q5-15M PRN chest pain #25 tabs 10/12/21 [Rx Last Taken Unknown] donepezil 10 mg tablet 10 mg PO DAILY ALZHEIMERS 10/23/21 [History Last Taken Unknown] lamotrigine 200 mg tablet (Lamictal) 200 mg PO DAILY Check with primary doctor 10/23/21 [History Last Taken Unknown] olanzapine 10 mg tablet (Zyprexa) 10 mg PO QHS Check with primary doctor 10/23/21 [History Last Taken Unknown] albuterol sulfate 90 mcg/actuation aerosol inhaler 2 puff inhalation Q6H PRN PRN Shortness Of Breath #8.5 grams 12/24/21 [Rx Last Taken 02/05/22] clopidogrel 75 mg tablet 75 mg PO DAILY BLOOD THINNER 02/04/22 [History Last Taken 05/27/22] acetaminophen 500 mg tablet 1,000 mg PO Q6H PRN PRN Pain 05/28/22 [History Last Taken Unknown] losartan 25 mg tablet 25 mg PO BID BP 05/28/22 [History Last Taken Unknown] montelukast 10 mg tablet 10 mg PO QPM ALLERGIES 05/28/22 [History Last Taken Unknown] oxycodone 5 mg tablet 5 mg PO Q6H PRN pain 7 days #10 tabs 06/21/22 [Rx Last Taken Unknown] atorvastatin 40 mg tablet 40 mg PO QHS CHOLESTEROL #90 tabs 07/25/22 [Rx Last Taken Unknown] doxycycline hyclate 100 mg tablet 100 mg PO BID #20 tabs 08/29/22 [Rx Last Taken Unknown] prednisone 10 mg tablet 10 mg PO QDAY #30 tabs 08/29/22 [Rx Last Taken Unknown] fenofibrate 54 mg tablet 54 mg PO DAILY CHOLESTEROL #90 tabs 09/13/22 [Rx Last Taken Unknown] budesonide 160 mcg-glycopyr 9 mcg-formot 4.8 mcg/actuation HFA inhaler (Breztri Aerosphere) 2 inh inhalation DAILY COPD #10.7 grams 10/02/22 [Rx Last Taken Unknown] albuterol sulfate 2.5 mg/3 mL (0.083 %) solution for nebulization 2.5 mg (3 mL) inhalation Q8H PRN PRN shortness of breath or wheezing #180 mL 11/05/22 [Rx Last Taken Unknown] metronidazole 500 mg tablet 500 mg PO Q8H 7 days #21 tabs 11/11/22 [Rx Last Taken Unknown] ondansetron 4 mg disintegrating tablet 4 mg PO Q8H PRN PRN Nausea #10 tabs 11/11/22 [Rx Last Taken Unknown] sulfamethoxazole 800 mg-trimethoprim 160 mg tablet (Bactrim DS) 1 tab PO BID #14 tabs 11/11/22 [Rx Last Taken Unknown] Allergy/AdvReac Type Severity Reaction Status Date / Time Quinolones Allergy Unknown unknown Verified 11/11/22 13:54 aspirin Allergy Itching, Verified 11/11/22 13:54 Hives levofloxacin [From Levaquin] Allergy Hives, Verified 11/11/22 13:54 Itching Penicillins Allergy Hives, Verified 11/11/22 13:54 Itching Family History Mother CAD (coronary artery disease) Sister Diabetes Surgical History H/O cervical spine surgery H/O ventral hernia repair History of appendectomy History of coronary artery stent placement (10/16/18) History of laparoscopic cholecystectomy History of left heart catheterization (04/2016) Hx of repair of right rotator cuff (06/04/22) Social History household members: none housing: house current occupational status: disabled Smoking Status: Former smoker quit date: 02/14/15 how long ago did patient quit smokin years ago second hand exposure: Yes alcohol intake: former details: Quit 9 years ago substance use type: does not use caffeine: Yes Type: coffee what type of physical activity do you participate in: none seatbelt use: always do you feel safe at home: Yes ROS ROS ED ROS Narrative A complete review of systems was performed and is negative except as documented in the history of present illness. Some specific details below. Constitutional: No recent fevers or chills. EYE: No visual complaints or pain. ENT: No difficulty swallowing. No swelling. No pain. CV: No chest pain or palpitations. Respiratory: No dyspnea. No hemoptysis. No difficulty taking breaths. GI: Please see history of present illness. : No frequency dysuria or hematuria. Musculoskeletal: No recent trauma. No pains. Skin: No rash. Nondiaphoretic. Neuro: No weakness or numbness. Endocrine: No polyuria or polydipsia. EXAM Physical Exam Narrative Exam Narrative: CONSTITUTIONAL: Patient is nontoxic in appearance. The patient looks comfortable. HEENT: No notable trauma. Mucous membranes mildly dry. No sinus tenderness. No indication of pain with swallowing. EYES: No conjunctival injection. No proptosis. CARDIOVASCULAR: Regular rate. Regular rhythm. No notable murmur. No JVD. RESPIRATORY: No respiratory distress. Breathing is unlabored. No wheezes. No rhonchi. No rales. No pain with a deep breath. GASTROINTESTINAL: Not distended. Bowel sounds are normal. Patient really has no notable tenderness. He states is a little sore when I press but objectively he does not look uncomfortable. He does have hernia scar above the umbilicus. There is fullness in that area but no palpable hernia sac. It does not seem to come out with straining. Is not notably tender there. I hear no bruit. I feel no pulsatile mass. GENITOURINARY: No tenderness over the bladder. No CVA tenderness. MUSCULOSKELETAL: Atraumatic. No peripheral edema. No cord. No tenderness along the deep venous system. No asymmetry. NEUROLOGICAL: Patient is alert and appropriate. No focal deficit noted. SKIN: No noted rashes. No diaphoresis. PSYCHIATRIC: Patient is calm. Mood is appropriate. Const Vital Signs: 11/11/22 13:52 Temperature 97.6 F L Temperature Source Temporal Pulse Rate 82 Respiratory Rate 14 Blood Pressure 139/78 H Blood Pressure Mean 98 Pulse Ox 99 Oxygen Delivery Method Room Air MDM MDM MDM Narrative Medical decision making narrative: Patient CBC shows minimal anemia and normal white count platelets. Patient's electrolytes show no marked abnormalities. Patient's liver function test show no marked abnormalities. Patient paces normal. Patient's urine is normal. My independent her potation the CT scan of the abdomen shows maybe some mild inflammatory changes in the colon. His bladder looks large but he states he fully empties his bladder and urinated a lot after this. With the inflammatory changes in the colon, diverticula, weeks of symptoms, we will treat as diverticulitis. Cutting back his diet does not help. We will add antibiotic at this time. He has allergies to Levaquin and penicillin so we need to work around that. We discussed reasons to return and follow-up Lab Data Attestation: I reviewed the patient's lab results. Labs: Laboratory Results - last 24 hr 11/11/22 11/11/22 15:30 16:53 WBC 7.9 RBC 4.39 L Hgb 11.7 L Hct 37.3 L MCV 85.0 MCH 26.7 L MCHC 31.4 L RDW Std Deviation 46.7 H RDW Coeff of Tad 15.0 H Plt Count 262 MPV 9.6 Immature Gran % (Auto) 0.600 Neut % (Auto) 62.2 Lymph % (Auto) 28.1 [place] % (Auto) 7.6 Eos % (Auto) 1.0 Baso % (Auto) 0.5 Absolute Neuts (auto) 4.9 Absolute Lymphs (auto) 2.22 Nucleated RBC % 0 Sodium 141 Potassium 3.5 Chloride 109 H Carbon Dioxide 28.0 Anion Gap 4 L BUN 10 Creatinine 1.25 Estim Creat Clear Calc 56.91 Est GFR (MDRD) Af Amer 73 Est GFR (MDRD) Non-Af 60 BUN/Creatinine Ratio 8.0 L Glucose 89 Calcium 8.9 Total Bilirubin 0.20 AST 9 L ALT 29 Alkaline Phosphatase 88 Total Protein 6.6 Albumin 3.6 Globulin 3.0 Albumin/Globulin Ratio 1.2 Lipase 24 Urine Color Yellow Urine Clarity Sl. Cloudy Urine pH 6.0 Ur Specific [place] 1.005 Urine Protein Negative Urine Glucose (UA) Normal Urine Ketones Negative Urine Occult Blood Negative Urine Nitrite Negative Urine Bilirubin Negative Urine Urobilinogen Normal Ur Leukocyte Esterase Negative Urine RBC 0 SEEN Urine WBC 0 SEEN Ur Squamous Epith Cells 0-5 SEEN Urine Bacteria 0 SEEN Urine Mucus 0 SEEN Radiography Diagnostic Testing: Clinical Impression(s) from Imaging Studies Abdomen/Pelvis CT 11/11/22 15:08 IMPRESSION: Findings suggest possible sequela of infectious or inflammatory sigmoid colitis. Electronically Signed: Moira Rudolph MD at 17:05 EDT Reading Location ID and State: [address] [place] [address] , Service support , Discharge Plan Triage Chief Complaint: Abd Pain ED Provider: Clement Kaur Dx/Rx/DC Orders Clinical Impression: Colitis, Diarrhea, Diverticula of colon Instructions: ED Diverticulosis Prescriptions: New metronidazole [metronidazole] 500 mg tablet 500 mg PO Q8H 7 Days Qty: 21 0RF sulfamethoxazole-trimethoprim [Bactrim DS] 800-160 mg tablet 1 tab PO BID Qty: 14 0RF ondansetron [ondansetron] 4 mg tablet,disintegrating 4 mg PO Q8H PRN PRN (Reason: Nausea) Qty: 10 0RF No Action metformin 500 mg tablet extended release 24 hr 500 mg PO DAILY trazodone 100 mg tablet 50 mg PO QHS mirtazapine [Remeron] 15 mg tablet 15 mg PO QHS aripiprazole [Abilify] 10 mg tablet 10 mg PO DAILY icosapent ethyl [Vascepa] 1 gram capsule 2 g PO BID baclofen 10 mg tablet 10 mg PO TID sertraline 100 mg tablet 100 mg PO DAILY olanzapine [Zyprexa] 10 mg tablet 10 mg PO QHS donepezil 10 mg tablet 10 mg PO DAILY lamotrigine [Lamictal] 200 mg tablet 200 mg PO DAILY potassium chloride 10 mEq tablet,ER particles/crystals 10 meq PO DAILY doxycycline hyclate 100 mg tablet 100 mg PO BID Qty: 20 0RF prednisone 10 mg tablet 10 mg PO QDAY Qty: 30 0RF Rx Instructions: take 4 tabs for three days, then 3 tabs for three days, then 2 tabs for three days, then 1 tab for 3 days ropinirole 0.5 MG tablet 0.5 mg PO QHS Patient Comments: restless legs tamsulosin 0.4 MG capsule,extended release 24hr 0.4 mg PO QHS omeprazole 40 MG capsule,delayed release(DR/EC) 40 mg PO DAILY clopidogrel 75 mg tablet 75 mg PO DAILY acetaminophen 500 mg tablet 1,000 mg PO Q6H PRN PRN (Reason: Pain) losartan 25 mg tablet 25 mg PO BID montelukast 10 mg tablet 10 mg PO QPM nitroglycerin [Nitrostat] 0.4 mg tablet, sublingual 0.4 mg sublingual Q5-15M PRN (Reason: chest pain) Qty: 25 3RF Rx Instructions: do not exceed 3 doses per episode albuterol sulfate 90 mcg/actuation HFA aerosol inhaler 2 puff INHALATION Q6H PRN PRN (Reason: Shortness Of Breath) Qty: 8.5 6RF oxycodone 5 mg tablet 5 mg PO Q6H PRN (Reason: pain) 7 Days Qty: 10 0RF atorvastatin 40 mg tablet 40 mg PO QHS Qty: 90 3RF fenofibrate 54 mg tablet 54 mg PO DAILY Qty: 90 3RF Patient Comments: TAKE 1 TABLET BY MOUTH EVERY DAY Breztri Aerosphere 160-9-4.8 mcg/actuation HFA aerosol inhaler 2 inh inhalation DAILY Qty: 10.7 11RF albuterol sulfate 2.5 mg /3 mL (0.083 %) solution for nebulization 2.5 mg INHALATION Q8H PRN PRN (Reason: shortness of breath or wheezing) Qty: 180 6RF Primary Care Provider: Ani Andersen Referrals: Ani Andersen DO [Primary Care Provider] - 3-5 Days Disposition Disposition: Home, Self Care
[2022-11-11] MEDS: 0.9% Normal Saline 1,000 ML 1000 ML IV (15:29)
[2022-11-11] MEDS: Ondansetron 4 MG/2 ML Vial IV (15:30)
[2022-11-11 15:40] LABS: Absolute Lymphocyte Count 2.22 X10^3/uL (0.83-4.51); Absolute Neutrophil Count 4.9 X10^3/uL (2.0-7.7); Basophil# 0.04 X10^3/uL; Basophil% 0.5 % (0-1); Eosinophil# 0.08 X10^3/uL; Hematocrit 37.3 % (40-54); Hemoglobin 11.7 g/dL (13.0-16.5); Lymphocyte # 2.22 X10^3/ul (0.83-4.51); Lymphocyte % 28.1 % (19-41); Mean Corp Hgb Conc 31.4 g/dL (32-36); Mean Corpuscular Hgb 26.7 pg (27.0-32.0); Mean Platelet Vol. 9.6 fl (6.2-12.0); Monocyte% 7.6 % (0-10); NRBC Flagged by Analyzer 0 % (0-5); Neutrophil # 4.92 X10^3/uL (2.7-7.7); Neutrophil % 62.2 % (47-70); Platelet Count 262 K/mm3 (150-450); RBC Distribution Width SD 46.7 fl (35.1-43.9); Red Blood Count 4.39 M/mm3 (4.6-6.2); White Blood Count 7.9 K/mm3 (4.4-11.0)
[2022-11-11] MEDS: Morphine 4 MG/ML Syringe IV (15:40)
[2022-11-11 16:02] LABS: ALB/GLOB Ratio 1.2 RATIO (0.9-2.4); AST(SGOT) 9 U/L (15-37); Alanine Aminotransfer ALT/SGPT 29 U/L (16-61); Albumin, Serum 3.6 g/dL (3.2-5.0); Alkaline Phosphatase 88 U/L (45-117); Anion Gap 4 (5-15); BUN 10 mg/dL (7-18); Calcium,Total 8.9 mg/dL (8.5-10.1); Chloride 109 mmol/L (98-107); Creatinine, Serum 1.25 mg/dL (0.70-1.30); EST Glomerular Filtration Rate 60 mL/min (>60); Est Glom Filt Rate - Afr Amer 73 mL/min (>60); Estimated Creatinine Clearance 56.91 ml/min; Glucose 89 mg/dL (74-106); Lipase 24 U/L (13-75); Potassium 3.5 mmol/L (3.5-5.1); Protein, Total 6.6 g/dL (6.4-8.2); Sodium Level 141 mmol/L (136-145)
[2022-11-11 17:00] LABS: Bacteria 0 SEEN /hpf (None Seen); Mucous, Urine 0 SEEN /hpf (<or=2+); Red Blood Cells-Urine 0 SEEN /hpf (0-5); White Blood Cells 0 SEEN /hpf (0-5)
[2022-11-11 17:02] LABS: Color, Urine Yellow (Yellow); Glucose, Dipstick Normal (Normal); Ketone-Dipstick Negative (Negative); Leukocyte Esterase-Dipstick Negative /ul (Negative); Nitrite-Dipstick Negative (Negative); Occult Blood-Urine Negative /ul (Negative); Protein-Dipstick Negative (Negative); Specific Gravity, Urine 1.005 (1.002-1.030); Urine Bilirubin Dipstick Negative (Negative); Urine Clarity Sl. Cloudy (Clear); Urine Urobilinogen Normal (Normal)
[2022-11-11 17:10] LABS: Squamous Epithelial Cells - UA 0-5 SEEN /hpf (0-5)
[2022-11-11 17:44] VITALS: BP 141/87; PULSE 84; RESP 16; O2SAT 98
== END 2022-11-11 17:45 | disposition home or self-care (01) ==
PROVIDERS: Emergency Provider Emergency Medicine; PCP Internal Medicine; Visit Provider Emergency Medicine
DX: K52.9 Noninfective gastroenteritis and colitis, unspecified (principal); I50.9 Heart failure, unspecified; K57.30 Diverticulosis of large intestine without perforation or abscess without bleeding; I25.10 Atherosclerotic heart disease of native coronary artery without angina pectoris; G47.33 Obstructive sleep apnea (adult) (pediatric); Z87.891 Personal history of nicotine dependence; Z86.711 Personal history of pulmonary embolism; Z95.5 Presence of coronary angioplasty implant and graft
CPT/HCPCS: 74177; 80053; 81001; 83690; 85025; 96361; 96374; 96375; 99282; J7030; Q9967; A4216; J2405

== ENCOUNTER 2022-11-21 15:37 | Emergency (ER) | payer MEDICARE, MEDICAID, SELFPAY ==
[2018-10-16 10:45] VITALS: BMI 21.8
[2022-11-21 15:39] VITALS: BP 170/89; PULSE 90; RESP 18; TEMP 36.6; O2SAT 98; BMI 24.3
[2022-11-21 16:43] LABS: Basophil% 0.6 % (0-1); Eosinophils% 0.7 % (0-5); Hematocrit 42.4 % (40-54); Hemoglobin 12.5 g/dL (13.0-16.5); Lymphocyte % 26.8 % (19-41); Mean Corp Hgb Conc 29.5 g/dL (32-36); Mean Corpuscular Hgb 26.5 pg (27.0-32.0); Mean Platelet Vol. 10.1 fl (6.2-12.0); Monocyte% 7.8 % (0-10); Neutrophil % 63.6 % (47-70); Platelet Count 297 K/mm3 (150-450); RBC Distribution Width CV 15.3 % (11.6-14.6); RBC Distribution Width SD 50.5 fl (35.1-43.9); Red Blood Count 4.71 M/mm3 (4.6-6.2); White Blood Count 8.2 K/mm3 (4.4-11.0)
[2022-11-21 16:44] LABS: Absolute Lymphocyte Count 2.19 X10^3/uL (0.83-4.51); Absolute Neutrophil Count 5.2 X10^3/uL (2.0-7.7); Basophil# 0.05 X10^3/uL; Eosinophil# 0.06 X10^3/uL; Lymphocyte # 2.19 X10^3/ul (0.83-4.51); Monocyte# 0.64 X10^3/uL; NRBC Flagged by Analyzer 0 % (0-5)
[2022-11-21 16:59] LABS: ALB/GLOB Ratio 1.2 RATIO (0.9-2.4); AST(SGOT) 14 U/L (15-37); Alanine Aminotransfer ALT/SGPT 27 U/L (16-61); Albumin, Serum 3.9 g/dL (3.2-5.0); Alkaline Phosphatase 86 U/L (45-117); Anion Gap 5 (5-15); BUN 16 mg/dL (7-18); BUN/Creat Ratio 12.2 RATIO (10-20); Calcium,Total 9.1 mg/dL (8.5-10.1); Chloride 106 mmol/L (98-107); Creatinine, Serum 1.31 mg/dL (0.70-1.30); EST Glomerular Filtration Rate 57 mL/min (>60); Est Glom Filt Rate - Afr Amer 69 mL/min (>60); Globulin 3.2 g/dL (2.2-4.2); Glucose 97 mg/dL (74-106); Potassium 3.9 mmol/L (3.5-5.1); Protein, Total 7.1 g/dL (6.4-8.2); Sodium Level 138 mmol/L (136-145)
--- NOTE | 2022-11-21 18:00 | EDS_ITS ---
HPI History of Present Illness Chief Complaint: Abd Pain Detail of Chief Complaint: Abdominal pain Informant: patient Onset/Context/Timing Onset: Weeks Context: Sudden Onset Timing: Continuous and Waxes and wanes Quality: Pain Location: Predominant left side of the abdomen Current Severity: Mild Maximum Severity: Moderate Worsened by: Eating, movement Relieved by: Nothing Associated Symptoms Associated Symptoms: Nausea and diarrhea Narrative Narrative: Patient is a 72-year-old male with history of IBS who was seen on November 11 and had a CAT scan that revealed colitis. Differential was inflammatory versus infectious. Patient was placed on antibiotics. Patient states she had no improvement. Patient denies dysuria, frequency, urgency or hematuria. Patient does report mild thirst. He denies orthostatic symptoms. He denies cardiac or respiratory symptoms. He denies black or maroon-colored stool. He denies bright red blood per rectum. He has not noted any mucus in his diarrhea. Prior similar symptoms: Yes Recent Illness/Hospitalization: Yes PFSH [facility] Medical History Alcohol use Ambulates with cane Anxiety Arthritis Asthma Atherosclerotic heart disease of [place] coronary artery without angina pectoris Back pain Bipolar disorder BPH (benign prostatic hyperplasia) Brachial neuritis (05/31/11) Cannabis dependence Cardiology follow-up encounter Cervical radiculitis Cervical spondylosis Chest pain Chest tightness Chronic obstructive lung disease (08/02/20) COPD (chronic obstructive pulmonary disease) CPAP (continuous positive airway pressure) dependence DDD (degenerative disc disease) Dementia Dementia Depression Diabetes Dietary restriction Displacement of lumbar intervertebral disc without myelopathy (03/01/11) Dyspnea on exertion Emphysema, unspecified Essential (primary) hypertension Essential hypertension (08/02/20) Fatigue Former smoker GERD (gastroesophageal reflux disease) High cholesterol History of CHF (congestive heart failure) History of echocardiogram History of IBS History of irregular heartbeat History of pain when walking History of pulmonary embolism History of stress test Hyperlipidemia Hypertension Low back pain (03/01/11) Lung nodule < 6cm on CT Malaise and fatigue (08/02/20) Marijuana use Migraines Myocardial infarct Neck pain (03/01/11) Neck sprain (03/01/11) MONIQUE (obstructive sleep apnea) Pain of left knee and lower leg Partial tear of right rotator cuff Peptic ulcer disease Pleurisy Prostate disease PVCs (premature ventricular contractions) Restless leg syndrome Schizophrenia Shortness of breath on exertion Sleep apnea Smoking greater than 40 pack years Stage 2 moderate COPD by GOLD classification Syncope and collapse Trigger finger Wears glasses Wheezing Home Medications ropinirole 0.5 mg tablet 0.5 mg PO QHS LEGS 04/23/16 [History Last Taken 07/29/19] tamsulosin 0.4 mg capsule 0.4 mg PO QHS PROSTATE 01/30/17 [History Last Taken 07/29/19] omeprazole 40 mg capsule,delayed release 40 mg PO DAILY GERD 07/30/19 [History Last Taken 07/30/19] metformin 500 mg tablet,extended release 24 hr 500 mg PO DAILY DIABETES 09/01/20 [History Last Taken 11/12/21] aripiprazole 10 mg tablet (Abilify) 10 mg PO DAILY ANXIETY 11/09/20 [History Last Taken Unknown] baclofen 10 mg tablet 10 mg PO TID PAIN 11/09/20 [History Last Taken Unknown] icosapent ethyl 1 gram capsule (Vascepa) 2 g PO BID HEART 11/09/20 [History Last Taken Unknown] mirtazapine 15 mg tablet (Remeron) 15 mg PO QHS RLS 11/09/20 [History Last Taken Unknown] trazodone 100 mg tablet 50 mg PO QHS SLEEP 11/09/20 [History Last Taken Unknown] sertraline 100 mg tablet 100 mg PO DAILY DEPPRESSION 05/18/21 [History Last Taken Unknown] potassium chloride 10 mEq tablet,extended release(part/cryst) 10 meq PO DAILY SUPPLEMENT 09/28/21 [History Last Taken Unknown] nitroglycerin 0.4 mg sublingual tablet (Nitrostat) 0.4 mg sublingual Q5-15M PRN chest pain #25 tabs 10/12/21 [Rx Last Taken Unknown] donepezil 10 mg tablet 10 mg PO DAILY ALZHEIMERS 10/23/21 [History Last Taken Unknown] lamotrigine 200 mg tablet (Lamictal) 200 mg PO DAILY Check with primary doctor 10/23/21 [History Last Taken Unknown] olanzapine 10 mg tablet (Zyprexa) 10 mg PO QHS Check with primary doctor 10/23/21 [History Last Taken Unknown] albuterol sulfate 90 mcg/actuation aerosol inhaler 2 puff inhalation Q6H PRN PRN Shortness Of Breath #8.5 grams 12/24/21 [Rx Last Taken 02/05/22] clopidogrel 75 mg tablet 75 mg PO DAILY BLOOD THINNER 02/04/22 [History Last Taken 05/27/22] acetaminophen 500 mg tablet 1,000 mg PO Q6H PRN PRN Pain 05/28/22 [History Last Taken Unknown] losartan 25 mg tablet 25 mg PO BID BP 05/28/22 [History Last Taken Unknown] montelukast 10 mg tablet 10 mg PO QPM ALLERGIES 05/28/22 [History Last Taken Unk nown] oxycodone 5 mg tablet 5 mg PO Q6H PRN pain 7 days #10 tabs 06/21/22 [Rx Last Taken Unknown] atorvastatin 40 mg tablet 40 mg PO QHS CHOLESTEROL #90 tabs 07/25/22 [Rx Last Taken Unknown] doxycycline hyclate 100 mg tablet 100 mg PO BID #20 tabs 08/29/22 [Rx Last Taken Unknown] prednisone 10 mg tablet 10 mg PO QDAY #30 tabs 08/29/22 [Rx Last Taken Unknown] fenofibrate 54 mg tablet 54 mg PO DAILY CHOLESTEROL #90 tabs 09/13/22 [Rx Last Taken Unknown] budesonide 160 mcg-glycopyr 9 mcg-formot 4.8 mcg/actuation HFA inhaler (Breztri Aerosphere) 2 inh inhalation DAILY COPD #10.7 grams 10/02/22 [Rx Last Taken Unknown] albuterol sulfate 2.5 mg/3 mL (0.083 %) solution for nebulization 2.5 mg (3 mL) inhalation Q8H PRN PRN shortness of breath or wheezing #180 mL 11/05/22 [Rx Last Taken Unknown] metronidazole 500 mg tablet 500 mg PO Q8H 7 days #21 tabs 11/11/22 [Rx Last Taken Unknown] ondansetron 4 mg disintegrating tablet 4 mg PO Q8H PRN PRN Nausea #10 tabs 11/11/22 [Rx Last Taken Unknown] sulfamethoxazole 800 mg-trimethoprim 160 mg tablet (Bactrim DS) 1 tab PO BID #14 tabs 11/11/22 [Rx Last Taken Unknown] dicyclomine 10 mg capsule 20 mg (2 x 10 mg) PO TIDAC #20 CAPSULES 11/21/22 [Rx Last Taken Unknown] Allergy/AdvReac Type Severity Reaction Status Date / Time Quinolones Allergy Unknown unknown Verified 11/21/22 15:38 aspirin Allergy Itching, Verified 11/21/22 15:38 Hives levofloxacin [From Levaquin] Allergy Hives, Verified 11/21/22 15:38 Itching Penicillins Allergy Hives, Verified 11/21/22 15:38 Itching Family History Mother CAD (coronary artery disease) Sister Diabetes Surgical History H/O cervical spine surgery H/O ventral hernia repair History of appendectomy History of coronary artery stent placement (10/16/18) History of laparoscopic cholecystectomy History of left heart catheterization (04/2016) Hx of repair of right rotator cuff (06/04/22) Social History household members: none housing: house current occupational status: disabled Smoking Status: Former smoker quit date: 02/14/15 how long ago did patient quit smokin years ago second hand exposure: Yes alcohol intake: former details: Quit 9 years ago substance use type: does not use caffeine: Yes Type: coffee what type of physical activity do you participate in: none seatbelt use: always do you feel safe at home: Yes ROS ROS ED Constitutional Constitutional ED: Reports weight loss and other Details: Weight loss is recent i.e. past week, a couple pounds ; Denies chills, fever(s), subjective or sweats Eyes Eyes: Denies blurry vision, change in vision or diplopia ENT ENT ED: Denies ear pain, rhinorrhea or sore throat Cardiovascular Cardiovascular: Denies chest pain, palpitations or racing heartbeat Respiratory/Chest Respiratory/Chest: Denies cough, dyspnea or dyspnea on exertion Gastrointestinal Gastrointestinal: Reports abdominal pain, diarrhea and nausea; Denies constipation, melena or vomiting Genitourinary Genitourinary ED: Denies dysuria, hematuria or urinary frequency Musculoskeletal Musculoskeletal: Denies arthralgias, back pain or myalgias Integumentary Denies rash Neurologic Neurologic: Reports weakness; Denies headache(s) or paresthesias Psychiatric Psychiatric: Denies anxiety Endocrine Endocrinology: Denies cold intolerance or heat intolerance Hematologic/Lymphatic Hematologic/Lymphatic: Reports systems reviewed and no addt'l complaints, except as documented EXAM Physical Exam Const Vital Signs: 11/21/22 15:39 Temperature 97.9 F Temperature Source Temporal Pulse Rate 90 Respiratory Rate 18 Blood Pressure 170/89 H Blood Pressure Mean 116 Pulse Ox 98 Oxygen Delivery Method Room Air Positive well nourished, well developed and unkempt General Appearance ED: unkempt, well developed and NAD; Negative for cyanotic, diaphoretic or pallor HEENT Reports dry mucous membranes HEENT Narrative: Head is normocephalic and atraumatic. Ears are normal. Nares are patent. Posterior pharynx is normal. Mouth ED: Yes dry mucous membranes Mouth: dry mucous membranes Eyes PERRL and EOMs intact bilaterally General Eye ED: Negative for pale conjunctiva or scleral icterus Neck no lymphadenopathy, supple and no JVD Chest Wall inspection of chest normal and palpation of chest normal Resp normal respiratory effort and clear to auscultation bilaterally Cardio regular rate, regular rhythm, S1 normal heart sound, S2 normal heart sound and no murmurs GI non-tender and no masses; Negative for non-distended or hepatosplenomegaly GI Narrative: There is slight tympany to percussion throughout. Inspection: abdominal distention Auscultation: hypoactive bowel sounds Palpation: soft; Negative for tender, guarding, splenomegaly, mass or rebound tenderness present Back/Spine no CVA tenderness Thoracic Spine / Upper Back: Negative for thoracic spinal tenderness Lumbar Spine / Lower Back: Negative for lumbar spinal tenderness Extremity normal to inspection Neuro oriented x3, CN's II-XII intact bilaterally and no sensory deficits noted Sensorium / Orientation: alert Psych mental status grossly normal Appearance: unkempt Skin no rashes or lesions noted, no wounds and No skin turgor normal General Skin Exam: Negative for jaundice or pallor MDM MDM MDM Narrative Medical decision making narrative: Records from October visit were reviewed. Patient was seen by his doctor and informed he needs a colonoscopy. Patient presents to the emergency department. Will obtain blood work and compared to most recent blood results. Patient does not have any tenderness, guarding or peritoneal findings and at this point there is no need for repeat CAT scan. If white count is markedly abnormal we will reconsider. Lab Data Attestation: I reviewed the patient's lab results. Lab results narrative: CBC is essentially unremarkable. Basic metabolic panel was elevated creatinine of 1.3 with a GFR 57. Hepatic panel is unremarkable his laboratory results are essentially unchanged from November 11. Hemoglobin is slightly higher. Creatinine has risen from 1.25-1.831. This is insignificant. Labs: Laboratory Results - last 24 hr 11/21/22 16:35 WBC 8.2 RBC 4.71 Hgb 12.5 L Hct 42.4 MCV 90.0 MCH 26.5 L MCHC 29.5 L RDW Std Deviation 50.5 H RDW Coeff of Tad 15.3 H Plt Count 297 MPV 10.1 Immature Gran % (Auto) 0.500 Neut % (Auto) 63.6 Lymph % (Auto) 26.8 [place] % (Auto) 7.8 Eos % (Auto) 0.7 Baso % (Auto) 0.6 Absolute Neuts (auto) 5.2 Absolute Lymphs (auto) 2.19 Nucleated RBC % 0 Sodium 138 Potassium 3.9 Chloride 106 Carbon Dioxide 27.0 Anion Gap 5 BUN 16 Creatinine 1.31 H Estim Creat Clear Calc 54.30 Est GFR (MDRD) Af Amer 69 Est GFR (MDRD) Non-Af 57 L BUN/Creatinine Ratio 12.2 Glucose 97 Calcium 9.1 Total Bilirubin 0.40 AST 14 L ALT 27 Alkaline Phosphatase 86 Total Protein 7.1 Albumin 3.9 Globulin 3.2 Albumin/Globulin Ratio 1.2 Treatment and Re-Evaluation :: Patient was informed of the results. Patient was informed that he was referred to Dr. Ramsey. He informed that he cannot be seen by Dr. Ramsey till April. This is contrary to what he initially told me. I recommend that he contact his primary care physician Dr. Eliel Alexander to see if he can help him find a aircraft shipping checker since Dr. Ramsey is the only aircraft shipping checker in [facility]. Gave him the name of Dr. Forman was on for surgery who can perform a colonoscopy. Patient became perturbed when I informed him that I could not perform colonoscopy and that the only aircraft shipping checker in [facility] was Dr. Ramsey. Discharge Plan Triage Chief Complaint: Abd Pain ED Provider: Ish Boateng Dx/Rx/DC Orders Clinical Impression: Colitis, Elevated serum creatinine, Chronic diarrhea, Abdominal pain Instructions: ED Understanding Colitis Prescriptions: New dicyclomine 10 mg capsule 20 mg PO TIDAC Qty: 20 0RF No Action metformin 500 mg tablet extended release 24 hr 500 mg PO DAILY trazodone 100 mg tablet 50 mg PO QHS mirtazapine [Remeron] 15 mg tablet 15 mg PO QHS aripiprazole [Abilify] 10 mg tablet 10 mg PO DAILY icosapent ethyl [Vascepa] 1 gram capsule 2 g PO BID baclofen 10 mg tablet 10 mg PO TID sertraline 100 mg tablet 100 mg PO DAILY olanzapine [Zyprexa] 10 mg tablet 10 mg PO QHS donepezil 10 mg tablet 10 mg PO DAILY lamotrigine [Lamictal] 200 mg tablet 200 mg PO DAILY potassium chloride 10 mEq tablet,ER particles/crystals 10 meq PO DAILY doxycycline hyclate 100 mg tablet 100 mg PO BID Qty: 20 0RF prednisone 10 mg tablet 10 mg PO QDAY Qty: 30 0RF Rx Instructions: take 4 tabs for three days, then 3 tabs for three days, then 2 tabs for three days, then 1 tab for 3 days ropinirole 0.5 MG tablet 0.5 mg PO QHS Patient Comments: restless legs tamsulosin 0.4 MG capsule,extended release 24hr 0.4 mg PO QHS omeprazole 40 MG capsule,delayed release(DR/EC) 40 mg PO DAILY clopidogrel 75 mg tablet 75 mg PO DAILY acetaminophen 500 mg tablet 1,000 mg PO Q6H PRN PRN (Reason: Pain) losartan 25 mg tablet 25 mg PO BID montelukast 10 mg tablet 10 mg PO QPM metronidazole [metronidazole] 500 mg tablet 500 mg PO Q8H 7 Days Qty: 21 0RF sulfamethoxazole-trimethoprim [Bactrim DS] 800-160 mg tablet 1 tab PO BID Qty: 14 0RF ondansetron [ondansetron] 4 mg tablet,disintegrating 4 mg PO Q8H PRN PRN (Reason: Nausea) Qty: 10 0RF nitroglycerin [Nitrostat] 0.4 mg tablet, sublingual 0.4 mg sublingual Q5-15M PRN (Reason: chest pain) Qty: 25 3RF Rx Instructions: do not exceed 3 doses per episode albuterol sulfate 90 mcg/actuation HFA aerosol inhaler 2 puff INHALATION Q6H PRN PRN (Reason: Shortness Of Breath) Qty: 8.5 6RF oxycodone 5 mg tablet 5 mg PO Q6H PRN (Reason: pain) 7 Days Qty: 10 0RF atorvastatin 40 mg tablet 40 mg PO QHS Qty: 90 3RF fenofibrate 54 mg tablet 54 mg PO DAILY Qty: 90 3RF Patient Comments: TAKE 1 TABLET BY MOUTH EVERY DAY Breztri Aerosphere 160-9-4.8 mcg/actuation HFA aerosol inhaler 2 inh inhalation DAILY Qty: 10.7 11RF albuterol sulfate 2.5 mg /3 mL (0.083 %) solution for nebulization 2.5 mg INHALATION Q8H PRN PRN (Reason: shortness of breath or wheezing) Qty: 180 6RF Primary Care Provider: Care Physician,No Primary Referrals: Tu Ramsey DO [Med Staff - Active Staff] - Keep Sly appointment Lizet Pearl MD [Med Staff - Active Staff] - 1-2 Weeks Care Physician,No Primary [Primary Care Provider] - Disposition Disposition: Home, Self Care
== END 2022-11-21 18:19 | disposition home or self-care (01) ==
PROVIDERS: Emergency Provider Emergency Medicine; Visit Provider Emergency Medicine
DX: K52.9 Noninfective gastroenteritis and colitis, unspecified (principal); I50.9 Heart failure, unspecified; R94.4 Abnormal results of kidney function studies; R10.9 Unspecified abdominal pain; G47.33 Obstructive sleep apnea (adult) (pediatric); I25.10 Atherosclerotic heart disease of native coronary artery without angina pectoris; Z87.891 Personal history of nicotine dependence; Z95.5 Presence of coronary angioplasty implant and graft
CPT/HCPCS: 80053; 85025; 99283; A4216

== ENCOUNTER 2022-12-03 06:46 | Day surgery (SDC) | payer MEDICARE, MEDICAID, SELFPAY ==
[2018-10-16 10:45] VITALS: BMI 21.8
[2022-12-03] VITALS (8 sets, daily range): BP systolic 110–128; BP diastolic 71–90; PULSE 68–82; RESP 16–18; TEMP 36.1–36.4; O2SAT 93–99; BMI 23.3
--- NOTE | 2022-12-03 | COLBX_PTH ---
PATIENT: LILLIAN GUERRERO LOC: EN U#:[id number] AGE/SX: 72/M ROOM: RE12/03/[address]: Dr. Giovani Cazares MD : [id number] BED: DIS: 12/03/2022 SPEC #: [id number] RECD: 12/03/22 11:09 STATUS: FERNANDA USHA #: [id number] RIMMA: 12/03/22 00:[address]: Giovani Cazares DEPT: SURGICAL PATHOLOGY RECD BY: Davide Colon ENTERED: 12/03/22 13:07 SP TYPE: COLON BX OTHR DR: No Primary Care Phys Tissues: COLON BIOPSY Procedures: Trichrome (control) Special Stain Group II Surgery Specimen Level IV HEADER OPERATION: Colonoscopy, EGD, biopsy PRE-OP DIAGNOSIS: Chronic diarrhea, unintentional weight loss TISSUE SUBMITTED: Random colon MICROSCOPIC DIAGNOSIS Colon, random biopsy: Focal changes suggestive of collagenous colitis. See comment. AM:jeremy 12/04/2022 COMMENT Trichrome stain with matched control was used in the evaluation of this case and shows focally thickened basal plate. Clinical correlation is suggested. MICROSCOPIC DESCRIPTION Slides are reviewed. GROSS DESCRIPTION Received in fixative is one container labeled with the patient's name and designated random colon biopsy. The specimen consists of multiple irregular fragments of light cristina soft tissue that in aggregate measure 2.0 x 0.5 x 0.1 cm. The specimen is totally submitted in one cassette. / SJ:jeremy 12/03/2022 TC:3 CPT: 49674, 71440
[2022-12-03] MEDS: Lactated Ringers 1,000 ML 15 ML IV (07:17)
[2022-12-03] MEDS: Ipratropium/Albuterol Sulfate 3 ML AMPUL.NEB INHALATION (07:36)
--- NOTE | 2022-12-03 07:55 | HP.PCM_ITS ---
History and Physical Date of Admission: 12/03/22 Intake Vital Signs 11/21/2314:39 11/28/2308:50 Height 6 ft 6 ft Weight: 177 lb BMI 24.0 BP 106/65 Blood Pressure Location Rt brachial Position Sitting Respiration 17 Pulse 78 Pulse Source Monitor Temp 97.5 F L Temp Source Temporal Pulse Oximetry (%) 98 Oxygen Delivery Method room air Intake Visit Reasons: CHRONIC DIARRHEA/UNINTENTIONAL WEIGHTLOSS/COLITIS Chief Complaint: diarrhea/wt loss Is patient in pain?: Yes Allergies Quinolones Allergy (Unknown, Verified 11/28/22 09:52) unknownaspirin Allergy (Verified 11/28/22 09:52) Itching, Hiveslevofloxacin [From Levaquin] Allergy (Verified 11/28/22 09:52) Hives, ItchingPenicillins Allergy (Verified 11/28/22 09:52) Hives, Itching Medications ropinirole 0.5 mg tablet 0.5 mg PO QHS LEGS 04/23/16 [History Confirmed 11/28/22] tamsulosin 0.4 mg capsule 0.4 mg PO QHS PROSTATE 01/30/17 [History Confirmed 11/28/22] omeprazole 40 mg capsule,delayed release 40 mg PO DAILY GERD 07/30/19 [History Confirmed 11/28/22] metformin 500 mg tablet,extended release 24 hr 500 mg PO DAILY DIABETES 09/01/20 [History Confirmed 11/28/22] aripiprazole 10 mg tablet (Abilify) 10 mg PO DAILY ANXIETY 11/09/20 [History Confirmed 11/28/22] baclofen 10 mg tablet 10 mg PO TID PAIN 11/09/20 [History Confirmed 11/28/22] icosapent ethyl 1 gram capsule (Vascepa) 2 g PO BID HEART 11/09/20 [History Confirmed 11/28/22] mirtazapine 15 mg tablet (Remeron) 15 mg PO QHS RLS 11/09/20 [History Confirmed 11/28/22] trazodone 100 mg tablet 50 mg PO QHS SLEEP 11/09/20 [History Confirmed 11/28/22] sertraline 100 mg tablet 100 mg PO DAILY DEPPRESSION 05/18/21 [History Confirmed 11/28/22] potassium chloride 10 mEq tablet,extended release(part/cryst) 10 meq PO DAILY SUPPLEMENT 09/28/21 [History Confirmed 11/28/22] nitroglycerin 0.4 mg sublingual tablet (Nitrostat) 0.4 mg sublingual Q5-15M PRN chest pain #25 tabs 10/12/21 [Rx Confirmed 11/28/22] donepezil 10 mg tablet 10 mg PO DAILY ALZHEIMERS 10/23/21 [History Confirmed 11/28/22] lamotrigine 200 mg tablet (Lamictal) 200 mg PO DAILY Check with primary doctor 10/23/21 [History Confirmed 11/28/22] olanzapine 10 mg tablet (Zyprexa) 10 mg PO QHS Check with primary doctor 10/23/21 [History Confirmed 11/28/22] albuterol sulfate 90 mcg/actuation aerosol inhaler 2 puff inhalation Q6H PRN PRN Shortness Of Breath #8.5 grams 12/24/21 [Rx Confirmed 11/28/22] clopidogrel 75 mg tablet 75 mg PO DAILY BLOOD THINNER 02/04/22 [History Confirmed 11/28/22] acetaminophen 500 mg tablet 1,000 mg PO Q6H PRN PRN Pain 05/28/22 [History Confirmed 11/28/22] losartan 25 mg tablet 25 mg PO BID BP 05/28/22 [History Confirmed 11/28/22] montelukast 10 mg tablet 10 mg PO QPM ALLERGIES 05/28/22 [History Confirmed 11/28/22] oxycodone 5 mg tablet 5 mg PO Q6H PRN pain 7 days #10 tabs 06/21/22 [Rx Confirmed 11/28/22] atorvastatin 40 mg tablet 40 mg PO QHS CHOLESTEROL #90 tabs 07/25/22 [Rx C onfirmed 11/28/22] prednisone 10 mg tablet 10 mg PO QDAY #30 tabs 08/29/22 [Rx Confirmed 11/28/22] fenofibrate 54 mg tablet 54 mg PO DAILY CHOLESTEROL #90 tabs 09/13/22 [Rx Confirmed 11/28/22] budesonide 160 mcg-glycopyr 9 mcg-formot 4.8 mcg/actuation HFA inhaler (Breztri Aerosphere) 2 inh inhalation DAILY COPD #10.7 grams 10/02/22 [Rx Confirmed 11/28/22] albuterol sulfate 2.5 mg/3 mL (0.083 %) solution for nebulization 2.5 mg (3 mL) inhalation Q8H PRN PRN shortness of breath or wheezing #180 mL 11/05/22 [Rx Confirmed 11/28/22] metronidazole 500 mg tablet 500 mg PO Q8H 7 days #21 tabs 11/11/22 [Rx Confirmed 11/28/22] ondansetron 4 mg disintegrating tablet 4 mg PO Q8H PRN PRN Nausea #10 tabs 11/11/22 [Rx Confirmed 11/28/22] sulfamethoxazole 800 mg-trimethoprim 160 mg tablet (Bactrim DS) 1 tab PO BID #14 tabs 11/11/22 [Rx Confirmed 11/28/22] dicyclomine 10 mg capsule 20 mg (2 x 10 mg) PO TIDAC #20 CAPSULES 11/21/22 [Rx Confirmed 11/28/22] omeprazole 40 mg capsule,delayed release 40 mg PO DAILY #60 caps 11/28/22 [Rx Confirmed 11/28/22] PFSH Medical History Alcohol use Ambulates with cane Anxiety Arthritis Asthma Atherosclerotic heart disease of [place] coronary artery without angina pectoris Back pain Bipolar disorder BPH (benign prostatic hyperplasia) Brachial neuritis (05/31/11) Cannabis dependence Cardiology follow-up encounter Cervical radiculitis Cervical spondylosis Chest pain Chest tightness Chronic obstructive lung disease (08/02/20) COPD (chronic obstructive pulmonary disease) CPAP (continuous positive airway pressure) dependence DDD (degenerative disc disease) Dementia Dementia Depression Diabetes Dietary restriction Displacement of lumbar intervertebral disc without myelopathy (03/01/11) Dyspnea on exertion Emphysema, unspecified Essential (primary) hypertension Essential hypertension (08/02/20) Fatigue Former smoker GERD (gastroesophageal reflux disease) High cholesterol History of CHF (congestive heart failure) History of echocardiogram History of IBS History of irregular heartbeat History of pain when walking History of pulmonary embolism History of stress test Hyperlipidemia Hypertension Low back pain (03/01/11) Lung nodule < 6cm on CT Malaise and fatigue (08/02/20) Marijuana use Migraines Myocardial infarct Neck pain (03/01/11) Neck sprain (03/01/11) MONIQUE (obstructive sleep apnea) Pain of left knee and lower leg Partial tear of right rotator cuff Peptic ulcer disease Pleurisy Prostate disease PVCs (premature ventricular contractions) Restless leg syndrome Schizophrenia Shortness of breath on exertion Sleep apnea Smoking greater than 40 pack years Stage 2 moderate COPD by GOLD classification Syncope and collapse Trigger finger Wears glasses Wheezing Surgical History H/O cervical spine surgery H/O ventral hernia repair History of appendectomy History of coronary artery stent placement (10/16/18) History of laparoscopic cholecystectomy History of left heart catheterization (04/2016) Hx of repair of right rotator cuff (06/04/22) Family History Mother CAD (coronary artery disease)Sister Diabetes Social History household members: none housing: house current occupational status: disabled Smoking Status: Former smoker quit date: 02/14/15 how long ago did patient quit smokin years ago second hand exposure: Yes alcohol intake: former details: Quit 9 years ago substance use type: does not use caffeine: Yes Type: coffee what type of physical activity do you participate in: none seatbelt use: always do you feel safe at home: Yes HPI HPI HPI: Patient is a 72-year-old male here for diarrhea and weight loss. He reports he is lost 20 pounds over the last year. He has also had unexplained diarrhea for the last year and diffuse abdominal pain. Denies any nausea or vomiting. Patient has never had a colonoscopy. ROS General General: Yes weight change and fatigue; No appetite, colon cancer, breast cancer or weakness HEENT HEENT: No difficulty swallowing, eye injury, eye surgery, swollen glands or hoarseness Endo Endocrine: Yes diabetes mellitus; No thyroid disease, thyroid cancer, Hair loss, heat intolerance or cold intolerance Skin Skin: No rash or changing moles Musc Musculoskeletal: Yes back problems and arthritis; No rheumatoid arthritis, gout or joint pain Cardio Cardiovascular: Yes heart disease, high blood pressure, heart attack and heart stent; No murmur, pacemaker, atrial fibrillation, palpitations, shortness of breat with exertion or chest pain Psych Psychiatric: Yes depression; No anxiety or hearing voices Resp Respiratory: Yes shortness of breath, No sleep apnea, No cough, Yes COPD, Yes asthma, Yes emphysema and No wheezing Gastro Gastrointestinal: Yes abdominal pain, No nausea or vomiting, Yes diarrhea, No constipation, No blood in stool, Yes acid reflux, No hemorrhoids, No ulcers, No gallbladder problem and No black,tarry stools Ethan Hematologic: Yes blood thinners, No blood disorders, No bleeding, No anemia and No blood clots Neuro Neurologic: No system reviewed and no additional complaints, except as documented, No as per HPI, No abnormal gait, No abnormal hearing, No abnormal movements, No abnormal speech, No behavioral changes, No burning sensations, No confusion, No convulsions, No disequilibrium, No dizziness, No localized weakness, No frequent falls, No headache(s), No lack of coordination, No loss of vision, No memory loss, No numbness, No other visual disturbances, No radicular pain, No restless legs, No sensory deficit, No syncope, No tingling, No tremor(s), No weakness and No other Exam Const General: cooperative Orientation: alert and oriented x3 HENMT Head: normal to inspection Neck Neck: normal visual inspection and full ROM Chest Chest palpation & inspection: normal inspection of the chest Resp Effort & Inspection: normal respiratory effort Auscultation: clear to auscultation bilaterally Cardio Rate: regular rate Rhythm: regular rhythm GI Inspection: non-distended Palpation: soft and nontender Skin General: no rashes or lesions noted Neuro General: patient alert and patient oriented x3 Extrem General: full ROM Psych Appearance: grossly normal Mental Status: mental status grossly normal Assessment and Plan Assessment and Plan (1) Chronic diarrhea: Status: Chronic (2) Weight loss, unintentional: Status: Acute Medications: New omeprazole 40 mg PO DAILY 60 caps 1RF Plan The patient is having weight loss and diarrhea. He is also describing some upper abdominal pain. I suspect that he may have gastritis and I will start him on a PPI. I will also plan on EGD and colonoscopy to evaluate. I have asked him to stop his Plavix for 5 days prior to the procedure. I explained endoscopy in detail to the patient. I explained the risks including but not limited to stroke or heart attack with anesthesia, perforation of the GI tract, bleeding, infection. I explained that any of these could necessitate further emergency surgery. The patient understands and all questions were answered sufficiently. The patient wishes to proceed with procedure. Giovani Cazares MD Pager: [facility] [address] [place] [address], [address] [place] [address] Office: I have examined the patient and the H&P has been reviewed. There are no clinical changes since date of exam.
--- NOTE | 2022-12-03 08:31 | OP.CCLET_ITS ---
12/03/2022 No Primary Care Physician Re : Upper GI endoscopy procedure for Blane Monteiro Dear Care Physician This procedure was performed on Saturday, December 03, 2022. My impressions and recommendations are as follows: Impressions : - Small hiatal hernia. - Normal stomach. - Normal examined duodenum. - No specimens collected. Recommendations : - Discharge patient to home. - Resume previous diet. - Continue present medications. - Resume Plavix (clopidogrel) at prior dose tomorrow. My findings are described in the full procedure note, which is enclosed. If I can be of further assistance, please feel free to contact me at Doctor phone number(s): , Work: . Sincerely, Giovani Cazares MD 12/03/2022 8:31:08 AM This report has been signed electronically.
--- NOTE | 2022-12-03 08:31 | OP.EGD_ITS ---
Patient Name: Blane Monteiro Procedure Date: 12/03/2022 7:57 AM Date of : 1950 Age: 72 Procedure: Upper GI endoscopy Indications: Heartburn Providers: Giovani Cazares MD Referring MD: Zeynep Primary Care Physician Medicines: Monitored Anesthesia Care Patient Profile: This is a 72 year old male. Refer to note in patient chart for documentation of history and physical. Complications: No immediate complications. Procedure: Pre-Anesthesia Assessment: - Prior to the procedure, a History and Physical was performed, and patient medications and allergies were reviewed. The patient's tolerance of previous anesthesia was also reviewed. The risks and benefits of the procedure and the sedation options and risks were discussed with the patient. All questions were answered, and informed consent was obtained. Prior Anticoagulants: The patient has taken Plavix (clopidogrel), last dose was 5 days prior to procedure. After reviewing the risks and benefits, the patient was deemed in satisfactory condition to undergo the procedure. After obtaining informed consent, the endoscope was passed under direct vision. Throughout the procedure, the patient's blood pressure, pulse, and oxygen saturations were monitored continuously. The gastroscope was introduced through the mouth, and advanced to the fourth part of duodenum. The upper GI endoscopy was accomplished without difficulty. The patient tolerated the procedure well. Scope In: 8:07:39 AM Scope Out: 8:09:43 AM Total Procedure Duration Time 0 hours 2 minutes 4 seconds Findings: A small hiatal hernia was present. The stomach was normal. The examined duodenum was normal. Impression: - Small hiatal hernia. - Normal stomach. - Normal examined duodenum. - No specimens collected. Recommendation: - Discharge patient to home. - Resume previous diet. - Continue present medications. - Resume Plavix (clopidogrel) at prior dose tomorrow. Procedure Code(s): --- Professional --- 13712, Esophagogastroduodenoscopy, flexible, transoral; diagnostic, including collection of specimen(s) by brushing or washing, when performed (separate procedure) Diagnosis Code(s): --- Professional --- K44.9, Diaphragmatic hernia without obstruction or gangrene R12, Heartburn CPT copyright 2021 [employer]. All rights reserved. The codes documented in this report are preliminary and upon ruby engineer review may be revised to meet current compliance requirements. Giovani Cazares MD 12/03/2022 8:31:08 AM This report has been signed electronically. Number of Addenda: 0 Note Initiated On: 12/03/2022 7:57 AM
--- NOTE | 2022-12-03 08:33 | OP.CCLET_ITS ---
12/03/2022 No Primary Care Physician Re : Colonoscopy procedure for Blane Monteiro Dear Care Physician This procedure was performed on Saturday, December 03, 2022. My impressions and recommendations are as follows: Impressions : - The entire examined colon is normal on direct and retroflexion views. - Biopsies were taken with a cold forceps from the entire colon for evaluation of microscopic colitis. Recommendations : - Discharge patient to home. - Resume previous diet. - Continue present medications. - Resume Plavix (clopidogrel) at prior dose tomorrow. - Repeat colonoscopy is not recommended due to current age (66 years or older) for screening purposes. My findings are described in the full procedure note, which is enclosed. If I can be of further assistance, please feel free to contact me at Doctor phone number(s): , Work: . Sincerely, Giovani Cazares MD 12/03/2022 8:32:55 AM This report has been signed electronically.
--- NOTE | 2022-12-03 08:33 | OP.COLON_ITS ---
Patient Name: Blane Monteiro Procedure Date: 12/03/2022 8:11 AM Date of : 1950 Age: 72 Procedure: Colonoscopy Indications: Generalized abdominal pain, Chronic diarrhea Providers: Giovani Cazares MD Referring MD: No Primary Care Physician Medicines: Monitored Anesthesia Care Patient Profile: This is a 72 year old male. Refer to note in patient chart for documentation of history and physical. Last Colonoscopy: none. The patient's first colonoscopy is today. Complications: No immediate complications. Estimated blood loss: Minimal. Procedure: Pre-Anesthesia Assessment: - Prior to the procedure, a History and Physical was performed, and patient medications and allergies were reviewed. The patient's tolerance of previous anesthesia was also reviewed. The risks and benefits of the procedure and the sedation options and risks were discussed with the patient. All questions were answered, and informed consent was obtained. Prior Anticoagulants: The patient has taken Plavix (clopidogrel), last dose was 5 days prior to procedure. After reviewing the risks and benefits, the patient was deemed in satisfactory condition to undergo the procedure. After I obtained informed consent, the scope was passed under direct vision. Throughout the procedure, the patient's blood pressure, pulse, and oxygen saturations were monitored continuously. The colonoscope was introduced through the anus and advanced to the cecum, identified by appendiceal orifice and ileocecal valve. The colonoscopy was performed without difficulty. The patient tolerated the procedure well. The quality of the bowel preparation was good. The ileocecal valve, appendiceal orifice, and rectum were photographed. Scope In: 8:12:20 AM Scope Withdrawal Time 0 hours 9 minutes 34 seconds Scope Out: 8:26:37 AM Total Procedure Duration Time 0 hours 14 minutes 17 seconds Findings: The entire examined colon appeared normal on direct and retroflexion views. Biopsies for histology were taken with a cold forceps from the entire colon for evaluation of microscopic colitis. Impression: - The entire examined colon is normal on direct and retroflexion views. - Biopsies were taken with a cold forceps from the entire colon for evaluation of microscopic colitis. Recommendation: - Discharge patient to home. - Resume previous diet. - Continue present medications. - Resume Plavix (clopidogrel) at prior dose tomorrow. - Repeat colonoscopy is not recommended due to current age (66 years or older) for screening purposes. Procedure Code(s): --- Professional --- 64654, Colonoscopy, flexible; with biopsy, single or multiple Diagnosis Code(s): --- Professional --- R10.84, Generalized abdominal pain K52.9, Noninfective gastroenteritis and colitis, unspecified CPT copyright 2021 [employer]. All rights reserved. The codes documented in this report are preliminary and upon auditing coder review may be revised to meet current compliance requirements. Giovani Cazares MD 12/03/2022 8:32:55 AM This report has been signed electronically. Number of Addenda: 0 Note Initiated On: 12/03/2022 8:11 AM
[2022-12-03 09:33] LABS: Bedside Glucose 104 mg/dL (74-106)
== END 2022-12-03 09:08 | disposition home or self-care (01) ==
LOC: EN 06:46 → AC 06:47
PROVIDERS: Visit Provider Surgery
PROC: 0DJD8ZZ Inspection of Lower Intestinal Tract, Via Natural or Artificial Opening Endoscopic (ICD-10-PCS; CPT 45378; principal; 2022-12-03 07:55)
DX: K52.831 Collagenous colitis (principal); F20.9 Schizophrenia, unspecified; F03.90 Unspecified dementia, unspecified severity, without behavioral disturbance, psychotic disturbance, mood disturbance, and anxiety; J44.9 Chronic obstructive pulmonary disease, unspecified; I50.9 Heart failure, unspecified; I11.0 Hypertensive heart disease with heart failure; F31.9 Bipolar disorder, unspecified; E11.9 Type 2 diabetes mellitus without complications; K44.9 Diaphragmatic hernia without obstruction or gangrene; I25.10 Atherosclerotic heart disease of native coronary artery without angina pectoris; R12 Heartburn; R63.4 Abnormal weight loss; I25.2 Old myocardial infarction; G47.33 Obstructive sleep apnea (adult) (pediatric); F41.9 Anxiety disorder, unspecified; F12.90 Cannabis use, unspecified, uncomplicated; K21.9 Gastro-esophageal reflux disease without esophagitis; N40.0 Benign prostatic hyperplasia without lower urinary tract symptoms; G25.81 Restless legs syndrome; Z79.84 Long term (current) use of oral hypoglycemic drugs; Z79.899 Other long term (current) drug therapy; Z87.891 Personal history of nicotine dependence; Z68.23 Body mass index [BMI] 23.0-23.9, adult
CPT/HCPCS: 43235; 45380; 82962; 88305; 88313; 94640; J7120; J2405

== ENCOUNTER → 2022-12-10 | Outpatient (CLI) | payer MEDICARE, MEDICAID, SELFPAY ==
[2018-10-16 10:45] VITALS: BMI 21.8
[2022-12-10 13:16] LABS: Amphetamine Urine VISTA NEGATIVE (<1000 ng/mL); Barbiturate Urine VISTA NEGATIVE (< 200 ng/mL); Benzodiazepine Urine VISTA NEGATIVE (< 200 ng/mL); Cocaine Urine VISTA NEGATIVE (< 300 ng/mL); Ecstacy Urine VISTA NEGATIVE (< 500 ng/mL); Methadone Urine VISTA NEGATIVE (< 300 ng/mL); PCP Urine VISTA NEGATIVE (< 25 ng/mL); THC Urine VISTA POSITIVE (< 50 ng/mL); Vista UDS pH Range 4
== END | disposition home or self-care (01) ==
LOC: LAB 12:25
PROVIDERS: Referring Provider Anesthesiology Pain Medicine; Visit Provider Anesthesiology Pain Medicine
DX: F11.20 Opioid dependence, uncomplicated (principal)
CPT/HCPCS: 80307

== ENCOUNTER → 2022-12-12 | Outpatient (CLI) | payer MEDICARE, MEDICAID, SELFPAY ==
[2018-10-16 10:45] VITALS: BMI 21.8
[2022-12-12 17:40] LABS: Mucous, Urine 0 SEEN /hpf (<or=2+); Red Blood Cells-Urine 0 SEEN /hpf (0-5); Squamous Epithelial Cells - UA 0 SEEN /hpf (0-5)
[2022-12-12 18:04] LABS: Color, Urine Yellow (Yellow); Glucose, Dipstick Normal (Normal); Ketone-Dipstick 5 mg/dl (Negative); Leukocyte Esterase-Dipstick 25 /ul (Negative); Nitrite-Dipstick Negative (Negative); Occult Blood-Urine 10 /ul (Negative); Protein-Dipstick 30 mg/dl (Negative); Specific Gravity, Urine 1.025 (1.002-1.030); Urine Clarity Cloudy (Clear); Urine Urobilinogen Normal (Normal)
[2022-12-12 18:07] LABS: Urine Bilirubin Dipstick 1 mg/dL (Negative)
[2022-12-12 18:16] LABS: Bacteria 3+ /hpf (None Seen); White Blood Cells 0-5 SEEN /hpf (0-5)
[2022-12-12 18:27] LABS: Microalbumin,Random Urine 29.8 mg/L (NO RANGE EST.); Microalbumin:Creatinine Ratio 9.6 mg/g CRE (<30 mg/g CRE)
== END | disposition home or self-care (01) ==
PROVIDERS: Visit Provider Internal Medicine Nephrology
DX: N40.1 Benign prostatic hyperplasia with lower urinary tract symptoms (principal); E11.40 Type 2 diabetes mellitus with diabetic neuropathy, unspecified
CPT/HCPCS: 81001; 82043; 82570

== ENCOUNTER 2023-01-06 07:56 | Emergency (ER) | payer MEDICARE, MEDICAID, SELFPAY ==
[2018-10-16 10:45] VITALS: BMI 21.8
[2023-01-06 08:01] VITALS: BP 158/98; PULSE 99; RESP 26; TEMP 37.1; O2SAT 96; BMI 24.7
--- NOTE | 2023-01-06 08:03 | RAD_ITS ---
STUDY: X-RAY CHEST REASON FOR EXAM: Male, 72 years old. Sob TECHNIQUE: PA and lateral views of the chest. COMPARISON: Comparison is made with prior study October 30, 2021. FINDINGS: EKG electrodes are seen. Stable mild increased markings at the lung bases suggestive of scarring. There is no demonstrated pleural abnormality. Normal size heart. Normal mediastinum and bessy. Normal visualized pulmonary arteries. Normal visualized aortic arch and descending thoracic aorta. There are diffuse degenerative changes of the visualized thoracic spine. Normal visualized ribs, clavicles, and shoulders. There is no demonstrated abnormality of the visualized soft tissue structures of the upper abdomen. RAD/Chest PA and Lateral IMPRESSION: No acute abnormality is seen. Electronically Signed: Jimmy Mathew MD at 9:02 EDT ,
--- NOTE | 2023-01-06 08:04 | ED.VIS.DYS ---
HPI History of Present Illness Chief Complaint: Shortness of Breath Informant: patient Onset/Context/Timing Onset: Days (2) Context: gradual and onset Timing: Continuous Quality: Positive for Dyspnea on exertion and Wheezing Current Severity: Moderate Maximum Severity: Severe Worsened by: Exertion and Coughing Relieved by: Rest and Albuterol Associated Symptoms cough Chest Pain: Positive for Tightness Narrative Narrative: Gradual onset over 2 days change in sputum production now coughing up segundo sputum whereas it is normally white or brown, and more of it, in addition to wheezing, dyspnea with exertion, chest tightness, getting worse. No edema in his legs or orthopnea. History of stents in his heart on Plavix no bleeding from anywhere recently not anticoagulated. Has a history of type 2 diabetes that he is not on insulin for. No known sick contacts. No travel out of the area recently. No unilateral leg pain or swelling. No history of DVT or PE. [facility] Medical History Alcohol use Ambulates with cane Anxiety Arthritis Asthma Atherosclerotic heart disease of [place] coronary artery without angina pectoris Back pain Bipolar disorder BPH (benign prostatic hyperplasia) Brachial neuritis (05/31/11) Cannabis dependence Cardiology follow-up encounter Cervical radiculitis Cervical spondylosis Chest pain Chest tightness Chronic obstructive lung disease (08/02/20) COPD (chronic obstructive pulmonary disease) CPAP (continuous positive airway pressure) dependence DDD (degenerative disc disease) Dementia Dementia Depression Diabetes Dietary restriction Displacement of lumbar intervertebral disc without myelopathy (03/01/11) Dyspnea on exertion Emphysema, unspecified Essential (primary) hypertension Essential hypertension (08/02/20) Fatigue Former smoker GERD (gastroesophageal reflux disease) High cholesterol History of CHF (congestive heart failure) History of echocardiogram History of IBS History of irregular heartbeat History of pain when walking History of pulmonary embolism History of stress test Hyperlipidemia Hypertension Low back pain (03/01/11) Lung nodule < 6cm on CT Malaise and fatigue (08/02/20) Marijuana use Migraines Myocardial infarct Neck pain (03/01/11) Neck sprain (03/01/11) MONIQUE (obstructive sleep apnea) Pain of left knee and lower leg Partial tear of right rotator cuff Peptic ulcer disease Pleurisy Prostate disease PVCs (premature ventricular contractions) Restless leg syndrome Schizophrenia Shortness of breath on exertion Sleep apnea Smoking greater than 40 pack years Stage 2 moderate COPD by GOLD classification Syncope and collapse Trigger finger Wears glasses Wheezing Home Medications ropinirole 0.5 mg tablet 0.5 mg PO QHS LEGS 04/23/16 [History Last Taken 07/29/19] tamsulosin 0.4 mg capsule 0.4 mg PO QHS PROSTATE 01/30/17 [History Last Taken 07/29/19] omeprazole 40 mg capsule,delayed release 40 mg PO DAILY GERD 07/30/19 [History Last Taken 07/30/19] metformin 500 mg tablet,extended release 24 hr 500 mg PO DAILY DIABETES 09/01/20 [History Last Taken 11/12/21] aripiprazole 10 mg tablet (Abilify) 10 mg PO DAILY ANXIETY 11/09/20 [History Last Taken Unknown] baclofen 10 mg tablet 10 mg PO TID PAIN 11/09/20 [History Last Taken Unknown] icosapent ethyl 1 gram capsule (Vascepa) 2 g PO BID HEART 11/09/20 [History Last Taken Unknown] mirtazapine 15 mg tablet (Remeron) 15 mg PO QHS RLS 11/09/20 [History Last Taken Unknown] trazodone 100 mg tablet 50 mg PO QHS SLEEP 11/09/20 [History Last Taken Unknown] sertraline 100 mg tablet 100 mg PO DAILY DEPPRESSION 05/18/21 [History Last Taken Unknown] potassium chloride 10 mEq tablet,extended release(part/cryst) 10 meq PO DAILY SUPPLEMENT 09/28/21 [History Last Taken Unknown] nitroglycerin 0.4 mg sublingual tablet (Nitrostat) 0.4 mg sublingual Q5-15M PRN chest pain #25 tabs 10/12/21 [Rx Last Taken Unknown] donepezil 10 mg tablet 10 mg PO DAILY ALZHEIMERS 10/23/21 [History Last Taken Unknown] lamotrigine 200 mg tablet (Lamictal) 200 mg PO DAILY Check with primary doctor 10/23/21 [History Last Taken Unknown] olanzapine 10 mg tablet (Zyprexa) 10 mg PO QHS Check with primary doctor 10/23/21 [History Last Taken Unknown] albuterol sulfate 90 mcg/actuation aerosol inhaler 2 puff inhalation Q6H PRN PRN Shortness Of Breath #8.5 grams 12/24/21 [Rx Last Taken 02/05/22] acetaminophen 500 mg tablet 1,000 mg PO Q6H PRN PRN Pain 05/28/22 [History Last Taken Unknown] losartan 25 mg tablet 25 mg PO BID BP 05/28/22 [History Last Taken Unknown] atorvastatin 40 mg tablet 40 mg PO QHS CHOLESTEROL #90 tabs 07/25/22 [Rx Last Taken Unknown] fenofibrate 54 mg tablet 54 mg PO DAILY CHOLESTEROL #90 tabs 09/13/22 [Rx Last Taken Unknown] budesonide 160 mcg-glycopyr 9 mcg-formot 4.8 mcg/actuation HFA inhaler (Breztri Aerosphere) 2 inh inhalation DAILY COPD #10.7 grams 10/02/22 [Rx Last Taken Unknown] albuterol sulfate 2.5 mg/3 mL (0.083 %) solution for nebulization 2.5 mg (3 mL) inhalation Q8H PRN PRN shortness of breath or wheezing #180 mL 11/05/22 [Rx Last Taken Unknown] metronidazole 500 mg tablet 500 mg PO Q8H 7 days #21 tabs 11/11/22 [Rx Last Taken Unknown] ondansetron 4 mg disintegrating tablet 4 mg PO Q8H PRN PRN Nausea #10 tabs 11/11/22 [Rx Last Taken Unknown] dicyclomine 10 mg capsule 20 mg (2 x 10 mg) PO TIDAC #20 CAPSULES 11/21/22 [Rx Last Taken Unknown] omeprazole 40 mg capsule,delayed release 40 mg PO DAILY #60 caps 11/28/22 [Rx Last Taken Unknown] clopidogrel 75 mg tablet 75 mg PO DAILY BLOOD THINNER #30 tabs 01/03/23 [Rx Last Taken Unknown] montelukast 10 mg tablet 10 mg PO QPM ALLERGIES #90 tabs 01/06/23 [Rx Last Taken Unknown] prednisone 20 mg tablet 40 mg (2 x 20 mg) PO DAILY #10 tabs 01/06/23 [Rx Last Taken Unknown] Allergy/AdvReac Type Severity Reaction Status Date / Time Quinolones Allergy Unknown unknown Verified 01/06/23 08:03 aspirin Allergy Itching, Verified 01/06/23 08:03 Hives levofloxacin [From Levaquin] Allergy Hives, Verified 01/06/23 08:03 Itching Penicillins Allergy Hives, Verified 01/06/23 08:03 Itching Family History Mother CAD (coronary artery disease) Sister Diabetes Surgical History H/O cervical spine surgery H/O ventral hernia repair History of appendectomy History of coronary artery stent placement (10/16/18) History of laparoscopic cholecystectomy History of left heart catheterization (04/2016) Hx of repair of right rotator cuff (06/04/22) Social History household members: none housing: house current occupational status: disabled Smoking Status: Former smoker quit date: 02/14/15 how long ago did patient quit smokin years ago second hand exposure: Yes alcohol intake: former details: Quit 9 years ago substance use type: does not use caffeine: Yes Type: coffee what type of physical activity do you participate in: none seatbelt use: always do you feel safe at home: Yes ROS ROS ED Constitutional Constitutional ED: Reports chills; Denies fever(s) Eyes Eyes: Denies change in vision or diplopia ENT ENT ED: Denies rhinorrhea or sore throat Cardiovascular Cardiovascular: Reports chest pain; Denies leg edema, orthopnea or palpitations Respiratory/Chest Respiratory/Chest: Reports cough, dyspnea, dyspnea on exertion and sputum; Denies orthopnea Gastrointestinal Gastrointestinal: Denies abdominal pain, diarrhea, nausea or vomiting Genitourinary Genitourinary ED: Denies dysuria or hematuria Musculoskeletal Musculoskeletal: Denies back pain or neck pain Integumentary Denies abscess or rash Neurologic Neurologic: Denies headache(s), paresthesias or weakness Psychiatric Psychiatric: Denies anxiety or suicidal thoughts EXAM Physical Exam Const Vital Signs: 01/06/23 08:01 01/06/23 08:17 01/06/23 08:17 Temperature 98.7 F Temperature Source Temporal Pulse Rate 99 96 Respiratory Rate 26 H 24 H Respiratory Effort Respiratory Depth Respiratory Pattern Tachypnea Blood Pressure 158/98 H Blood Pressure Mean 118 Pulse Ox 96 94 Oxygen Delivery Method Room Air Room Air 01/06/23 08:03 01/06/23 08:37 01/06/23 09:00 Temperature Temperature Source Pulse Rate 91 Respiratory Rate 30 H Respiratory Effort Short of Breath Respiratory Depth Shallow Respiratory Pattern Blood Pressure 133/65 H Blood Pressure Mean 87 Pulse Ox 96 Oxygen Delivery Method Room Air Room Air Room Air 01/06/23 10:55 Temperature Temperature Source Pulse Rate 84 Respiratory Rate 12 Respiratory Effort Respiratory Depth Respiratory Pattern Blood Pressure 140/67 H Blood Pressure Mean 91 Pulse Ox 92 Oxygen Delivery Method Positive well nourished and well developed General Appearance ED: well developed and NAD HEENT Reports moist mucous membranes normocephalic and atraumatic Eyes PERRL and EOMs intact bilaterally Neck full ROM, no lymphadenopathy, supple and no JVD Resp Resp Narrative: Speaking in full sentences. Some expiratory wheezes, severely diminished throughout all lung hayes, trachea midline and symmetrically diminished. Prolonged expiratory phase. No respiratory distress. Cardio regular rate, regular rhythm and no murmurs GI non-tender and non-distended Auscultation: normoactive bowel sounds Palpation: soft Back/Spine no CVA tenderness General Back: other FROM Extremity normal to inspection General Extremety ED: Negative for edema, pulses abnormal or tenderness General Extremity: Negative for edema or pulses abnormal Neuro oriented x3, CN's II-XII intact bilaterally and no sensory deficits noted Sensorium / Orientation: awake and alert Motor Exam: strength 5/5 throughout Psych mental status grossly normal Skin no rashes or lesions noted and no wounds MDM MDM MDM Narrative Medical decision making narrative: Chest x-ray 2 views of my interpretation shows chronic changes but no acute pneumonia or pneumothorax. Radiology in agreement. COVID and flu swabs negative. Other labs are unremarkable ruling out acute coronary syndrome with a negative troponin, normal BNP, and on interpretation his EKG is unremarkable. In the meantime he was given nebulizer treatments and Solu-Medrol. He understands the risk of hyperglycemia related to his diabetes due to steroids but he agrees that the benefits of steroids at this time outweigh the risk since he has been so dyspneic. On reevaluation he is feeling a little better, we ambulated him with pulse oximetry on room air. He was 89-90%, however he was out of breath with very little distance and is asking to stay overnight in the hospital. I suspect once the steroids kick in, hopefully he will have some improvement as all of this seems to be COPD-related. Lab Data Attestation: I reviewed the patient's lab results. Labs: Laboratory Results - last 24 hr 01/06/23 08:12 WBC 11.7 H RBC 4.43 L Hgb 12.0 L Hct 38.9 L MCV 87.8 MCH 27.1 MCHC 30.8 L RDW Std Deviation 48.5 H RDW Coeff of Tad 14.9 H Plt Count 218 MPV 10.4 Immature Gran % (Auto) 0.600 Neut % (Auto) 70.3 H Lymph % (Auto) 18.2 L [place] % (Auto) 8.5 Eos % (Auto) 2.0 Baso % (Auto) 0.4 Absolute Neuts (auto) 8.2 H Absolute Lymphs (auto) 2.13 Nucleated RBC % 0 Sodium 144 Potassium 3.1 L Chloride 109 H Carbon Dioxide 29.0 Anion Gap 6 BUN 14 Creatinine 1.18 Estim Creat Clear Calc 60.28 Est GFR (MDRD) Af Amer 77 Est GFR (MDRD) Non-Af 64 BUN/Creatinine Ratio 11.9 Glucose 103 Calcium 8.9 Troponin I High Sens 19 B-Natriuretic Peptide 56.8 Radiography Diagnostic Testing: Clinical Impression(s) from Imaging Studies Chest X-Ray 01/06/23 08:03 IMPRESSION: No acute abnormality is seen. Electronically Signed: Jimmy Mathew MD at 9:02 EDT , Rhythm Strip Rhythm Strip: Sinus Rhythm Rate: 95 Ectopy: None EKG Initial EKG: Attestation: I personally reviewed and interpreted this EKG as follows: Interpretation: Sinus Rhythm and No Acute Injury Pattern Management Discussion w/another healthcare provider: Hospitalist Treatment and Re-Evaluation Comments:: Hospitalist evaluated and ended up discharging the patient from the ED. Discharge Plan Triage Chief Complaint: Shortness of Breath ED Provider: Juan Antonio Carter Dx/Rx/DC Orders Clinical Impression: Acute respiratory insufficiency, Acute exacerbation of chronic obstructive pulmonary disease (COPD), Hypoxemia Prescriptions: New prednisone 20 mg tablet 40 mg PO DAILY Qty: 10 0RF Continued metformin 500 mg tablet extended release 24 hr 500 mg PO DAILY trazodone 100 mg tablet 50 mg PO QHS mirtazapine [Remeron] 15 mg tablet 15 mg PO QHS aripiprazole [Abilify] 10 mg tablet 10 mg PO DAILY icosapent ethyl [Vascepa] 1 gram capsule 2 g PO BID baclofen 10 mg tablet 10 mg PO TID sertraline 100 mg tablet 100 mg PO DAILY olanzapine [Zyprexa] 10 mg tablet 10 mg PO QHS donepezil 10 mg tablet 10 mg PO DAILY lamotrigine [Lamictal] 200 mg tablet 200 mg PO DAILY potassium chloride 10 mEq tablet,ER particles/crystals 10 meq PO DAILY omeprazole 40 mg capsule,delayed release(DR/EC) 40 mg PO DAILY Qty: 60 1RF ropinirole 0.5 MG tablet 0.5 mg PO QHS Patient Comments: restless legs tamsulosin 0.4 MG capsule,extended release 24hr 0.4 mg PO QHS omeprazole 40 MG capsule,delayed release(DR/EC) 40 mg PO DAILY acetaminophen 500 mg tablet 1,000 mg PO Q6H PRN PRN (Reason: Pain) losartan 25 mg tablet 25 mg PO BID metronidazole 500 mg tablet 500 mg PO Q8H 7 Days Qty: 21 0RF ondansetron 4 mg tablet,disintegrating 4 mg PO Q8H PRN PRN (Reason: Nausea) Qty: 10 0RF dicyclomine 10 mg capsule 20 mg PO TIDAC Qty: 20 0RF nitroglycerin [Nitrostat] 0.4 mg tablet, sublingual 0.4 mg sublingual Q5-15M PRN (Reason: chest pain) Qty: 25 3RF Rx Instructions: do not exceed 3 doses per episode albuterol sulfate 90 mcg/actuation HFA aerosol inhaler 2 puff INHALATION Q6H PRN PRN (Reason: Shortness Of Breath) Qty: 8.5 6RF atorvastatin 40 mg tablet 40 mg PO QHS Qty: 90 3RF fenofibrate 54 mg tablet 54 mg PO DAILY Qty: 90 3RF Patient Comments: TAKE 1 TABLET BY MOUTH EVERY DAY Breztri Aerosphere 160-9-4.8 mcg/actuation HFA aerosol inhaler 2 inh inhalation DAILY Qty: 10.7 11RF albuterol sulfate 2.5 mg /3 mL (0.083 %) solution for nebulization 2.5 mg INHALATION Q8H PRN PRN (Reason: shortness of breath or wheezing) Qty: 180 6RF clopidogrel 75 mg tablet 75 mg PO DAILY Qty: 30 11RF montelukast 10 mg tablet 10 mg PO QPM Qty: 90 3RF Primary Care Provider: Medical Renetta Turner Referrals: [facility] [Primary Care Provider] - Disposition Disposition: Home, Self Care Discharge Date/Time: 01/06/23 10:56
[2023-01-06] MEDS: Albuterol 2.5 MG/3 ML VIAL.NEB. INHALATION (08:12)
[2023-01-06] MEDS: Ipratropium/Albuterol Sulfate 3 ML AMPUL.NEB INHALATION (08:12)
[2023-01-06 08:17] VITALS: PULSE 96; RESP 24; O2SAT 94
[2023-01-06 08:26] LABS: Absolute Lymphocyte Count 2.13 X10^3/uL (0.83-4.51); Absolute Neutrophil Count 8.2 X10^3/uL (2.0-7.7); Basophil# 0.05 X10^3/uL; Basophil% 0.4 % (0-1); Eosinophil# 0.23 X10^3/uL; Hematocrit 38.9 % (40-54); Lymphocyte # 2.13 X10^3/ul (0.83-4.51); Lymphocyte % 18.2 % (19-41); Mean Corp Hgb Conc 30.8 g/dL (32-36); Mean Corpuscular Hgb 27.1 pg (27.0-32.0); Mean Corpuscular Volume 87.8 fL (80-94); Mean Platelet Vol. 10.4 fl (6.2-12.0); Monocyte% 8.5 % (0-10); NRBC Flagged by Analyzer 0 % (0-5); Neutrophil # 8.22 X10^3/uL (2.7-7.7); Neutrophil % 70.3 % (47-70); Platelet Count 218 K/mm3 (150-450); RBC Distribution Width CV 14.9 % (11.6-14.6); RBC Distribution Width SD 48.5 fl (35.1-43.9); Red Blood Count 4.43 M/mm3 (4.6-6.2); White Blood Count 11.7 K/mm3 (4.4-11.0)
[2023-01-06 08:43] LABS: Anion Gap 6 (5-15); BUN 14 mg/dL (7-18); BUN/Creat Ratio 11.9 RATIO (10-20); Calcium,Total 8.9 mg/dL (8.5-10.1); Chloride 109 mmol/L (98-107); Creatinine, Serum 1.18 mg/dL (0.70-1.30); EST Glomerular Filtration Rate 64 mL/min (>60); Est Glom Filt Rate - Afr Amer 77 mL/min (>60); Estimated Creatinine Clearance 60.28 ml/min; Glucose 103 mg/dL (74-106); Potassium 3.1 mmol/L (3.5-5.1); Sodium Level 144 mmol/L (136-145); Troponin-I HS 19 pg/mL (3.0-78.0)
[2023-01-06 08:44] LABS: BNP,B-Type NATRIURETIC PEPTIDE 56.8 pg/mL (0-100)
[2023-01-06] MEDS: MethylPREDNISolone 125 MG/2 ML Vial IV (08:51)
[2023-01-06 09:00] VITALS: BP 133/65; PULSE 91; RESP 30; O2SAT 96
[2023-01-06 09:29] VITALS: O2SAT 89
--- NOTE | 2023-01-06 10:06 | NURSING ---
MED SURG OBS JOPPERI RESP INSUFFICIENCY, CODP EXAC
--- NOTE | 2023-01-06 10:19 | PCM.DC ---
Discharge Instructions Diet Discharge Diet: Low fat / Low cholesterol Dressing / Incision Call your doctor if you observe: Shortness of breath Follow Up Care Test Results: Test results from this visit will be discussed in further detail at your follow-up appointment, if applicable. Discharge Plan Triage Chief Complaint: Shortness of Breath ED Provider: Juan Antonio Carter Dx/Rx/DC Orders Clinical Impression: Acute respiratory insufficiency, Acute exacerbation of chronic obstructive pulmonary disease (COPD), Hypoxemia Prescriptions: New prednisone 20 mg tablet 40 mg PO DAILY Qty: 10 0RF Continued metformin 500 mg tablet extended release 24 hr 500 mg PO DAILY trazodone 100 mg tablet 50 mg PO QHS mirtazapine [Remeron] 15 mg tablet 15 mg PO QHS aripiprazole [Abilify] 10 mg tablet 10 mg PO DAILY icosapent ethyl [Vascepa] 1 gram capsule 2 g PO BID baclofen 10 mg tablet 10 mg PO TID sertraline 100 mg tablet 100 mg PO DAILY olanzapine [Zyprexa] 10 mg tablet 10 mg PO QHS donepezil 10 mg tablet 10 mg PO DAILY lamotrigine [Lamictal] 200 mg tablet 200 mg PO DAILY potassium chloride 10 mEq tablet,ER particles/crystals 10 meq PO DAILY omeprazole 40 mg capsule,delayed release(DR/EC) 40 mg PO DAILY Qty: 60 1RF ropinirole 0.5 MG tablet 0.5 mg PO QHS Patient Comments: restless legs tamsulosin 0.4 MG capsule,extended release 24hr 0.4 mg PO QHS omeprazole 40 MG capsule,delayed release(DR/EC) 40 mg PO DAILY acetaminophen 500 mg tablet 1,000 mg PO Q6H PRN PRN (Reason: Pain) losartan 25 mg tablet 25 mg PO BID metronidazole 500 mg tablet 500 mg PO Q8H 7 Days Qty: 21 0RF ondansetron 4 mg tablet,disintegrating 4 mg PO Q8H PRN PRN (Reason: Nausea) Qty: 10 0RF dicyclomine 10 mg capsule 20 mg PO TIDAC Qty: 20 0RF nitroglycerin [Nitrostat] 0.4 mg tablet, sublingual 0.4 mg sublingual Q5-15M PRN (Reason: chest pain) Qty: 25 3RF Rx Instructions: do not exceed 3 doses per episode albuterol sulfate 90 mcg/actuation HFA aerosol inhaler 2 puff INHALATION Q6H PRN PRN (Reason: Shortness Of Breath) Qty: 8.5 6RF atorvastatin 40 mg tablet 40 mg PO QHS Qty: 90 3RF fenofibrate 54 mg tablet 54 mg PO DAILY Qty: 90 3RF Patient Comments: TAKE 1 TABLET BY MOUTH EVERY DAY Brechautri Aerosphere 160-9-4.8 mcg/actuation HFA aerosol inhaler 2 inh inhalation DAILY Qty: 10.7 11RF albuterol sulfate 2.5 mg /3 mL (0.083 %) solution for nebulization 2.5 mg INHALATION Q8H PRN PRN (Reason: shortness of breath or wheezing) Qty: 180 6RF clopidogrel 75 mg tablet 75 mg PO DAILY Qty: 30 11RF montelukast 10 mg tablet 10 mg PO QPM Qty: 90 3RF Primary Care Provider: [facility] Renetta Turner Referrals: [facility] Renetta Turner [Primary Care Provider] - Disposition Disposition: Home, Self Care
--- NOTE | 2023-01-06 10:24 | PCM.CONS.GEN ---
Assessment & Plan Assessment/Plan (1) Acute exacerbation of chronic obstructive pulmonary disease (COPD): PLAN: At rest, patient is 94 to 95% on room air. With ambulation, patient dipped down to 89%. Patient does not qualify for home oxygenation. Discussed with the patient that we could bring the patient in and I would have him on oral steroids and continue with his other home medications. Patient already does have nebulizers at home. Also explained to the patient that he be under observation status. Whether or not that would equate to a higher co-pay upon discharge I was unclear but if it were it would likely be higher if fewer than if he were to be admitted which he is not. Patient stated that with that and the fact that he is otherwise stable that he would prefer to go home. We will have the patient with a burst of prednisone. Continue with his bronchodilators. Patient does have a pulmonary follow-up appointment on January 28. PLAN: Plan Patient medically stable for discharge. Patient discharge paperwork has been filled out by me. HPI Consult Data Date of Consult: 01/06/23 HPI Narrative Reason for Consultation: Shortness of breath HPI Narrative: LILLIAN GUERRERO, is a 72 M who presents 2 days of shortness of breath. Patient states that he feels short of breath all the time. Began suddenly. States that he feels dizzy. Patient was sent to the emergency room and that was stable. Diagnosed with COPD exacerbation. He did receive a dose of methylprednisolone. Was ambulated and dropped down to 89 to 90% with ambulation. Patient requested to stay in the hospital overnight. The hospital service was contacted for admission. Patient states that he does have history of COPD and emphysema but has stopped smoking about 14 years ago. States he is having fevers and chills, abdominal pain as well as nausea and vomiting. Patient was seen on room air and vital signs are stable. Patient was 94% on room air, respiratory rate was 18. [facility] Medical History Alcohol use Ambulates with cane Anxiety Arthritis Asthma Atherosclerotic heart disease of [place] coronary artery without angina pectoris Back pain Bipolar disorder BPH (benign prostatic hyperplasia) Brachial neuritis (05/31/11) Cannabis dependence Cardiology follow-up encounter Cervical radiculitis Cervical spondylosis Chest pain Chest tightness Chronic obstructive lung disease (08/02/20) COPD (chronic obstructive pulmonary disease) CPAP (continuous positive airway pressure) dependence DDD (degenerative disc disease) Dementia Dementia Depression Diabetes Dietary restriction Displacement of lumbar intervertebral disc without myelopathy (03/01/11) Dyspnea on exertion Emphysema, unspecified Essential (primary) hypertension Essential hypertension (08/02/20) Fatigue Former smoker GERD (gastroesophageal reflux disease) High cholesterol History of CHF (congestive heart failure) History of echocardiogram History of IBS History of irregular heartbeat History of pain when walking History of pulmonary embolism History of stress test Hyperlipidemia Hypertension Low back pain (03/01/11) Lung nodule < 6cm on CT Malaise and fatigue (08/02/20) Marijuana use Migraines Myocardial infarct Neck pain (03/01/11) Neck sprain (03/01/11) MONIQUE (obstructive sleep apnea) Pain of left knee and lower leg Partial tear of right rotator cuff Peptic ulcer disease Pleurisy Prostate disease PVCs (premature ventricular contractions) Restless leg syndrome Schizophrenia Shortness of breath on exertion Sleep apnea Smoking greater than 40 pack years Stage 2 moderate COPD by GOLD classification Syncope and collapse Trigger finger Wears glasses Wheezing Home Medications ropinirole 0.5 mg tablet 0.5 mg PO QHS LEGS 04/23/16 [History Last Taken 07/29/19] tamsulosin 0.4 mg capsule 0.4 mg PO QHS PROSTATE 01/30/17 [History Last Taken 07/29/19] omeprazole 40 mg capsule,delayed release 40 mg PO DAILY GERD 07/30/19 [History Last Taken 07/30/19] metformin 500 mg tablet,extended release 24 hr 500 mg PO DAILY DIABETES 09/01/20 [History Last Taken 11/12/21] aripiprazole 10 mg tablet (Abilify) 10 mg PO DAILY ANXIETY 11/09/20 [History Last Taken Unknown] baclofen 10 mg tablet 10 mg PO TID PAIN 11/09/20 [History Last Taken Unknown] icosapent ethyl 1 gram capsule (Vascepa) 2 g PO BID HEART 11/09/20 [History Last Taken Unknown] mirtazapine 15 mg tablet (Remeron) 15 mg PO QHS RLS 11/09/20 [History Last Taken Unknown] trazodone 100 mg tablet 50 mg PO QHS SLEEP 11/09/20 [History Last Taken Unknown] sertraline 100 mg tablet 100 mg PO DAILY DEPPRESSION 05/18/21 [History Last Taken Unknown] potassium chloride 10 mEq tablet,extended release(part/cryst) 10 meq PO DAILY SUPPLEMENT 09/28/21 [History Last Taken Unknown] nitroglycerin 0.4 mg sublingual tablet (Nitrostat) 0.4 mg sublingual Q5-15M PRN chest pain #25 tabs 10/12/21 [Rx Last Taken Unknown] donepezil 10 mg tablet 10 mg PO DAILY ALZHEIMERS 10/23/21 [History Last Taken Unknown] lamotrigine 200 mg tablet (Lamictal) 200 mg PO DAILY Check with primary doctor 10/23/21 [History Last Taken Unknown] olanzapine 10 mg tablet (Zyprexa) 10 mg PO QHS Check with primary doctor 10/23/21 [History Last Taken Unknown] albuterol sulfate 90 mcg/actuation aerosol inhaler 2 puff inhalation Q6H PRN PRN Shortness Of Breath #8.5 grams 12/24/21 [Rx Last Taken 02/05/22] acetaminophen 500 mg tablet 1,000 mg PO Q6H PRN PRN Pain 05/28/22 [History Last Taken Unknown] losartan 25 mg tablet 25 mg PO BID BP 05/28/22 [History Last Taken Unknown] atorvastatin 40 mg tablet 40 mg PO QHS CHOLESTEROL #90 tabs 07/25/22 [Rx Last Taken Unknown] fenofibrate 54 mg tablet 54 mg PO DAILY CHOLESTEROL #90 tabs 09/13/22 [Rx Last Taken Unknown] budesonide 160 mcg-glycopyr 9 mcg-formot 4.8 mcg/actuation HFA inhaler (Breztri Aerosphere) 2 inh inhalation DAILY COPD #10.7 grams 10/02/22 [Rx Last Taken Unknown] albuterol sulfate 2.5 mg/3 mL (0.083 %) solution for nebulization 2.5 mg (3 mL) inhalation Q8H PRN PRN shortness of breath or wheezing #180 mL 11/05/22 [Rx Last Taken Unknown] metronidazole 500 mg tablet 500 mg PO Q8H 7 days #21 tabs 11/11/22 [Rx Last Taken Unknown] ondansetron 4 mg disintegrating tablet 4 mg PO Q8H PRN PRN Nausea #10 tabs 11/11/22 [Rx Last Taken Unknown] dicyclomine 10 mg capsule 20 mg (2 x 10 mg) PO TIDAC #20 CAPSULES 11/21/22 [Rx Last Taken Unknown] omeprazole 40 mg capsule,delayed release 40 mg PO DAILY #60 caps 11/28/22 [Rx Last Taken Unknown] clopidogrel 75 mg tablet 75 mg PO DAILY BLOOD THINNER #30 tabs 01/03/23 [Rx Last Taken Unknown] montelukast 10 mg tablet 10 mg PO QPM ALLERGIES #90 tabs 01/06/23 [Rx Last Taken Unknown] prednisone 20 mg tablet 40 mg (2 x 20 mg) PO DAILY #10 tabs 01/06/23 [Rx Last Taken Unknown] Allergy/AdvReac Type Severity Reaction Status Date / Time Quinolones Allergy Unknown unknown Verified 01/06/23 08:03 aspirin Allergy Itching, Verified 01/06/23 08:03 Hives levofloxacin [From Levaquin] Allergy Hives, Verified 01/06/23 08:03 Itching Penicillins Allergy Hives, Verified 01/06/23 08:03 Itching Family History Mother CAD (coronary artery disease) Sister Diabetes Surgical History H/O cervical spine surgery H/O ventral hernia repair History of appendectomy History of coronary artery stent placement (10/16/18) History of laparoscopic cholecystectomy History of left heart catheterization (04/2016) Hx of repair of right rotator cuff (06/04/22) Social History household members: none housing: house current occupational status: disabled Smoking Status: Former smoker quit date: 02/14/15 how long ago did patient quit smokin years ago second hand exposure: Yes alcohol intake: former details: Quit 9 years ago substance use type: does not use caffeine: Yes Type: coffee what type of physical activity do you participate in: none seatbelt use: always do you feel safe at home: Yes ROS ROS Narrative All review of systems were negative except as mentioned above in the history of present illness and the other review of systems. Physical Exam Const alert and no apparent distress HEENT normocephalic and head/scalp atraumatic Resp normal respiratory effort Resp Narrative: Diminished breath sounds bilateral Cardio regular rate, regular rhythm, S1 normal heart sound and S2 normal heart sound GI normal to inspection, nondistended, normoactive bowel sounds and soft to palpation Extremity normal to inspection Neuro moves all extremities and no focal motor deficits Sensorium / Orientation: awake and alert Lab / Micro Data 01/06/23 08:12 01/06/23 08:12 Labs: Laboratory Results - last 24 hr 01/06/23 08:12: WBC 11.7 H, RBC 4.43 L, Hgb 12.0 L, Hct 38.9 L, MCV 87.8, MCH 27.1, MCHC 30.8 L, RDW Std Deviation 48.5 H, RDW Coeff of Tad 14.9 H, Plt Count 218, MPV 10.4, Immature Gran % (Auto) 0.600, Neut % (Auto) 70.3 H, Lymph % (Auto) 18.2 L, [place] % (Auto) 8.5, Eos % (Auto) 2.0, Baso % (Auto) 0.4, Absolute Neuts (auto) 8.2 H, Absolute Lymphs (auto) 2.13, Nucleated RBC % 0, Sodium 144, Potassium 3.1 L, Chloride 109 H, Carbon Dioxide 29.0, Anion Gap 6, BUN 14, Creatinine 1.18, Estim Creat Clear Calc 60.28, Est GFR (MDRD) Af Amer 77, Est GFR (MDRD) Non-Af 64, BUN/Creatinine Ratio 11.9, Glucose 103, Calcium 8.9, Troponin I High Sens 19, B-Natriuretic Peptide 56.8 Micro: Microbiology 01/06/23 08:12 Nasal Secretion SARS-CoV-2 & FLU Antigen (Rapid) - Final Rhythm Strip Rhythm Strip: Sinus Rhythm Rate: 95 Ectopy: None Radiology Impression Chest X-Ray 01/06/23 08:03 IMPRESSION: No acute abnormality is seen. Electronically Signed: Jimmy Mathew MD at 9:02 EDT , Charges/Coding Visit Charges Office Visits / Consults: [id number] OP Consult L4
[2023-01-06 10:55] VITALS: BP 140/67; PULSE 84; RESP 12; O2SAT 92
== END 2023-01-06 10:56 | disposition home or self-care (01) ==
PROVIDERS: Emergency Provider Emergency Medicine; Visit Provider Emergency Medicine
DX: R06.89 Other abnormalities of breathing (principal); J44.1 Chronic obstructive pulmonary disease with (acute) exacerbation; I50.9 Heart failure, unspecified; I25.10 Atherosclerotic heart disease of native coronary artery without angina pectoris; G47.33 Obstructive sleep apnea (adult) (pediatric); Z79.01 Long term (current) use of anticoagulants; Z95.5 Presence of coronary angioplasty implant and graft; Z86.711 Personal history of pulmonary embolism; Z87.891 Personal history of nicotine dependence
CPT/HCPCS: 71046; 80048; 83880; 84484; 85025; 87428; 93005; 94640; 96374; 99285; A4216

== ENCOUNTER 2023-01-16 12:43 | Inpatient (IN) | payer MEDICARE, MEDICAID, SELFPAY ==
[2018-10-16 10:45] VITALS: BMI 21.8
[2023-01-16] VITALS (13 sets, daily range): BP systolic 108–147; BP diastolic 58–81; PULSE 79–96; RESP 14–26; TEMP 36.3–37.2; O2SAT 93–99; BMI 24.0; BMI 22.9
--- NOTE | 2023-01-16 13:19 | EKG12_ITS ---
Test Reason : SOB Blood Pressure : / mmHG Vent. Rate : 074 BPM Atrial Rate : 074 BPM P-R Int : 150 ms QRS Dur : 074 ms QT Int : 402 ms P-R-T Axes : 026 038 057 degrees QTc Int : 446 ms Normal sinus rhythm Normal ECG Confirmed by AMARA STEVENSON, MARCUS ([id number]), publication editor SAMMY PRADO ([id number]) on 01/27/2023 7:36:48 AM Referred By: Confirmed By:MELISSA MALONEY MD
--- NOTE | 2023-01-16 13:27 | ED.VIS.DYS ---
HPI History of Present Illness Chief Complaint: Shortness of Breath Informant: patient Narrative Narrative: Patient presents with slowly worsening dyspnea. He has a history of COPD. He is not on oxygen although in the past he was. He quit smoking 14 years ago. He states he started wheezing and coughing more about 3 weeks ago. He states he is not having chest pain but he just feels tight with breathing. He was seen here about 10 days ago. He was placed on steroids after a work-up. There were thoughts of admitting him then as his oxygen level was dropping with ambulation but he did not want to come in the hospital. He did follow-up with his primary physician. He had taken all of our steroids. His physician started him on another course of steroids and started antibiotics. Patient states he could not tolerate the antibiotics because they made him vomit. He brings up some clear sputum but no blood. He has not had a fever. He has had no travel surgery immobilization personal or family history DVT PE or PE. He is on Plavix. [facility] Medical History Alcohol use Ambulates with cane Anxiety Arthritis Asthma Atherosclerotic heart disease of [place] coronary artery without angina pectoris Back pain Bipolar disorder BPH (benign prostatic hyperplasia) Brachial neuritis (05/31/11) Cannabis dependence Cardiology follow-up encounter Cervical radiculitis Cervical spondylosis Chest pain Chest tightness Chronic obstructive lung disease (08/02/20) COPD (chronic obstructive pulmonary disease) CPAP (continuous positive airway pressure) dependence DDD (degenerative disc disease) Dementia Dementia Depression Diabetes Dietary restriction Displacement of lumbar intervertebral disc without myelopathy (03/01/11) Dyspnea on exertion Emphysema, unspecified Essential (primary) hypertension Essential hypertension (08/02/20) Fatigue Former smoker GERD (gastroesophageal reflux disease) High cholesterol History of CHF (congestive heart failure) History of echocardiogram History of IBS History of irregular heartbeat History of pain when walking History of pulmonary embolism History of stress test Hyperlipidemia Hypertension Low back pain (03/01/11) Lung nodule < 6cm on CT Malaise and fatigue (08/02/20) Marijuana use Migraines Myocardial infarct Neck pain (03/01/11) Neck sprain (03/01/11) MONIQUE (obstructive sleep apnea) Pain of left knee and lower leg Partial tear of right rotator cuff Peptic ulcer disease Pleurisy Prostate disease PVCs (premature ventricular contractions) Restless leg syndrome Schizophrenia Shortness of breath on exertion Sleep apnea Smoking greater than 40 pack years Stage 2 moderate COPD by GOLD classification Syncope and collapse Trigger finger Wears glasses Wheezing Home Medications ropinirole 0.5 mg tablet 0.5 mg PO QHS LEGS 04/23/16 [History Last Taken 07/29/19] tamsulosin 0.4 mg capsule 0.4 mg PO QHS PROSTATE 01/30/17 [History Last Taken 07/29/19] omeprazole 40 mg capsule,delayed release 40 mg PO DAILY GERD 07/30/19 [History Last Taken 07/30/19] metformin 500 mg tablet,extended release 24 hr 500 mg PO DAILY DIABETES 09/01/20 [History Last Taken 11/12/21] aripiprazole 10 mg tablet (Abilify) 10 mg PO DAILY ANXIETY 11/09/20 [History Last Taken Unknown] baclofen 10 mg tablet 10 mg PO TID PAIN 11/09/20 [History Last Taken Unknown] icosapent ethyl 1 gram capsule (Vascepa) 2 g PO BID HEART 11/09/20 [History Last Taken Unknown] mirtazapine 15 mg tablet (Remeron) 15 mg PO QHS RLS 11/09/20 [History Last Taken Unknown] trazodone 100 mg tablet 50 mg PO QHS SLEEP 11/09/20 [History Last Taken Unknown] sertraline 100 mg tablet 100 mg PO DAILY DEPPRESSION 05/18/21 [History Last Taken Unknown] potassium chloride 10 mEq tablet,extended release(part/cryst) 10 meq PO DAILY SUPPLEMENT 09/28/21 [History Last Taken Unknown] nitroglycerin 0.4 mg sublingual tablet (Nitrostat) 0.4 mg sublingual Q5-15M PRN chest pain #25 tabs 10/12/21 [Rx Last Taken Unknown] donepezil 10 mg tablet 10 mg PO DAILY ALZHEIMERS 10/23/21 [History Last Taken Unknown] lamotrigine 200 mg tablet (Lamictal) 200 mg PO DAILY Check with primary doctor 10/23/21 [History Last Taken Unknown] olanzapine 10 mg tablet (Zyprexa) 10 mg PO QHS Check with primary doctor 10/23/21 [History Last Taken Unknown] albuterol sulfate 90 mcg/actuation aerosol inhaler 2 puff inhalation Q6H PRN PRN Shortness Of Breath #8.5 grams 12/24/21 [Rx Last Taken 02/05/22] acetaminophen 500 mg tablet 1,000 mg PO Q6H PRN PRN Pain 05/28/22 [History Last Taken Unknown] losartan 25 mg tablet 25 mg PO BID BP 05/28/22 [History Last Taken Unknown] atorvastatin 40 mg tablet 40 mg PO QHS CHOLESTEROL #90 tabs 07/25/22 [Rx Last Taken Unknown] fenofibrate 54 mg tablet 54 mg PO DAILY CHOLESTEROL #90 tabs 09/13/22 [Rx Last Taken Unknown] budesonide 160 mcg-glycopyr 9 mcg-formot 4.8 mcg/actuation HFA inhaler ([employer] unamiaphere) 2 inh inhalation DAILY COPD #10.7 grams 10/02/22 [Rx Last Taken Unknown] albuterol sulfate 2.5 mg/3 mL (0.083 %) solution for nebulization 2.5 mg (3 mL) inhalation Q8H PRN PRN shortness of breath or wheezing #180 mL 11/05/22 [Rx Last Taken Unknown] ondansetron 4 mg disintegrating tablet 4 mg PO Q8H PRN PRN Nausea #10 tabs 11/11/22 [Rx Last Taken Unknown] dicyclomine 10 mg capsule 20 mg (2 x 10 mg) PO TIDAC #20 CAPSULES 11/21/22 [Rx Last Taken Unknown] omeprazole 40 mg capsule,delayed release 40 mg PO DAILY #60 caps 11/28/22 [Rx Last Taken Unknown] clopidogrel 75 mg tablet 75 mg PO DAILY BLOOD THINNER #30 tabs 01/03/23 [Rx Last Taken Unknown] montelukast 10 mg tablet 10 mg PO QPM ALLERGIES #90 tabs 01/06/23 [Rx Last Taken Unknown] prednisone 20 mg tablet 40 mg (2 x 20 mg) PO DAILY #10 tabs 01/06/23 [Rx Last Taken Unknown] doxycycline hyclate 100 mg tablet 100 mg PO BID #20 tabs 01/08/23 [Rx Last Taken Unknown] Allergy/AdvReac Type Severity Reaction Status Date / Time Quinolones Allergy Unknown unknown Verified 01/16/23 12:44 aspirin Allergy Itching, Verified 01/16/23 12:44 Hives levofloxacin [From Levaquin] Allergy Hives, Verified 01/16/23 12:44 Itching Penicillins Allergy Hives, Verified 01/16/23 12:44 Itching Family History Mother CAD (coronary artery disease) Sister Diabetes Surgical History H/O cervical spine surgery H/O ventral hernia repair History of appendectomy History of coronary artery stent placement (10/16/18) History of laparoscopic cholecystectomy History of left heart catheterization (04/2016) Hx of repair of right rotator cuff (06/04/22) Social History household members: none housing: house current occupational status: disabled Smoking Status: Former smoker quit date: 02/14/15 how long ago did patient quit smokin years ago second hand exposure: Yes alcohol intake: former details: Quit 9 years ago substance use type: does not use caffeine: Yes Type: coffee what type of physical activity do you participate in: none seatbelt use: always do you feel safe at home: Yes ROS ROS ED ROS Narrative A complete review of systems was performed and is negative except as documented in the history of present illness. Some specific details below. Constitutional: No recent fevers or chills. No generalized malaise although he does get tired with activity. EYE: No discharge, visual complaints, or pain. ENT: No difficulty swallowing. No swelling. No pain. No reflux symptoms. CV: Denies chest pain or palpitations. He does state that the breathing feels tight and heavy at times though. Respiratory: See history of present illness. He states his distance walking is getting much more limited. GI: No abdominal pain. No nausea vomiting diarrhea. No blood in stool. : No frequency dysuria or hematuria. Musculoskeletal: No recent trauma. No pains. No swelling. Skin: No rash. Nondiaphoretic. Neuro: No focal weakness or numbness. Endocrine: No polyuria or polydipsia. EXAM Physical Exam Narrative Exam Narrative: CONSTITUTIONAL: Patient is nontoxic in appearance. The patient looks comfortable. Work of breathing looks increased. HEENT: No notable trauma. Mucous membranes moist. EYES: No conjunctival injection. No proptosis. NECK:No JVD. No stridor. CARDIOVASCULAR: Regular rate. Regular rhythm. No notable murmur. No JVD. Tones do not sound muffled. RESPIRATORY: Work of breathing is slightly increased. He carries on conversation with just slightly shortened sentences. He does have tight expiratory wheezing and is not moving great air. I do not hear rhonchi. I do not hear rales. There is no pain with a deep breath. While I am in the room, saturations are relatively normal at 93-94% on room air. GASTROINTESTINAL: Not distended. Bowel sounds are normal. No tenderness. No guarding. No rebound. No palpable mass. No bruit is heard. GENITOURINARY: No tenderness over the bladder. No CVA tenderness. MUSCULOSKELETAL: Atraumatic. No peripheral edema. No cord. No tenderness along the deep venous system. No asymmetry. No distended veins. NEUROLOGICAL: Patient is alert and appropriate. No focal deficit noted. SKIN: No noted rashes. No diaphoresis. PSYCHIATRIC: Patient is calm. Mood is appropriate. Const Vital Signs: 01/16/23 12:44 01/16/23 13:03 01/16/23 13:03 Temperature 99 F 99 F Temperature Source Temporal Temporal Pulse Rate 81 81 Respiratory Rate 14 14 Respiratory Effort Labored Respiratory Depth Shallow Respiratory Pattern Blood Pressure 147/72 H 147/72 H Blood Pressure Mean 97 97 Pulse Ox 97 99 Oxygen Delivery Method Room Air Room Air 01/16/23 13:37 Temperature Temperature Source Pulse Rate 84 Respiratory Rate 20 H Respiratory Effort Respiratory Depth Respiratory Pattern Tachypnea Blood Pressure Blood Pressure Mean Pulse Ox Oxygen Delivery Method MDM MDM MDM Narrative Medical decision making narrative: Patient CBC does show slight elevation of white count at 13 some of this could be due to recent steroid use though. He has mild anemia. Platelets are normal. Patient's electrolytes are showing no marked abnormalities. Patient's troponin is negative. Patient's BNP is negative. My independent interpretation of the patient's single view AP chest x-ray shows some COPD changes but no sign of pneumothorax or infiltrate or CHF. Final reading is hyperinflation with no acute abnormality. We walked the patient. He did not desaturate. But he got very weak. He got dyspneic. He actually almost fell just from being so weak. He got tachypneic. His respiratory rate went up to 30 and a little bit over 30 at times. He got tighter and wheezy. It is taking him a while to recover. This patient was extremely symptomatic on ambulation even though he did not drop his saturations. With his clinical picture, failure of good outpatient therapy I do not think going home is appropriate. We were able to find out that he has been on two 5-day courses of 40 mg of prednisone and he was on Vibramycin and is still not getting better. He has received good outpatient therapy and has failed that. I discussed case with hospitalist and patient will be admitted. Lab Data Attestation: I reviewed the patient's lab results. Labs: Laboratory Results - last 24 hr 01/16/23 13:58 WBC 13.0 H RBC 4.16 L Hgb 11.3 L Hct 36.5 L MCV 87.7 MCH 27.2 MCHC 31.0 L RDW Std Deviation 45.1 H RDW Coeff of Tad 14.2 Plt Count 299 MPV 9.7 Immature Gran % (Auto) 1.300 H Neut % (Auto) 78.4 H Lymph % (Auto) 15.4 L [place]y % (Auto) 4.7 Eos % (Auto) 0.0 Baso % (Auto) 0.2 Absolute Neuts (auto) 10.2 H Absolute Lymphs (auto) 2.00 Nucleated RBC % 0 Sodium 140 Potassium 3.6 Chloride 107 Carbon Dioxide 27.0 Anion Gap 6 BUN 13 Creatinine 1.18 Estim Creat Clear Calc 60.28 Est GFR (MDRD) Af Amer 77 Est GFR (MDRD) Non-Af 64 BUN/Creatinine Ratio 11.0 Glucose 119 H Calcium 9.0 Troponin I High Sens 13 B-Natriuretic Peptide 48.4 Radiography Diagnostic Testing: Clinical Impression(s) from Imaging Studies Chest X-Ray 01/16/23 14:06 IMPRESSION: Hyperinflation. No acute abnormality is seen. Electronically Signed: Jimmy Mathew MD at 14:21 EDT , Discharge Plan Triage Chief Complaint: Shortness of Breath ED Provider: Clement Kaur Dx/Rx/DC Orders Clinical Impression: Failure of outpatient treatment, Acute exacerbation of chronic obstructive pulmonary disease, Tachypnea Prescriptions: No Action metformin 500 mg tablet extended release 24 hr 500 mg PO DAILY trazodone 100 mg tablet 50 mg PO QHS mirtazapine [Remeron] 15 mg tablet 15 mg PO QHS aripiprazole [Abilify] 10 mg tablet 10 mg PO DAILY icosapent ethyl [Vascepa] 1 gram capsule 2 g PO BID baclofen 10 mg tablet 10 mg PO TID sertraline 100 mg tablet 100 mg PO DAILY olanzapine [Zyprexa] 10 mg tablet 10 mg PO QHS donepezil 10 mg tablet 10 mg PO DAILY lamotrigine [Lamictal] 200 mg tablet 200 mg PO DAILY potassium chloride 10 mEq tablet,ER particles/crystals 10 meq PO DAILY omeprazole 40 mg capsule,delayed release(DR/EC) 40 mg PO DAILY Qty: 60 1RF ropinirole 0.5 MG tablet 0.5 mg PO QHS Patient Comments: restless legs tamsulosin 0.4 MG capsule,extended release 24hr 0.4 mg PO QHS omeprazole 40 MG capsule,delayed release(DR/EC) 40 mg PO DAILY acetaminophen 500 mg tablet 1,000 mg PO Q6H PRN PRN (Reason: Pain) losartan 25 mg tablet 25 mg PO BID ondansetron 4 mg tablet,disintegrating 4 mg PO Q8H PRN PRN (Reason: Nausea) Qty: 10 0RF prednisone 20 mg tablet 40 mg PO DAILY Qty: 10 0RF dicyclomine 10 mg capsule 20 mg PO TIDAC Qty: 20 0RF nitroglycerin [Nitrostat] 0.4 mg tablet, sublingual 0.4 mg sublingual Q5-15M PRN (Reason: chest pain) Qty: 25 3RF Rx Instructions: do not exceed 3 doses per episode albuterol sulfate 90 mcg/actuation HFA aerosol inhaler 2 puff INHALATION Q6H PRN PRN (Reason: Shortness Of Breath) Qty: 8.5 6RF atorvastatin 40 mg tablet 40 mg PO QHS Qty: 90 3RF fenofibrate 54 mg tablet 54 mg PO DAILY Qty: 90 3RF Patient Comments: TAKE 1 TABLET BY MOUTH EVERY DAY [employer]tri [employer] 160-9-4.8 mcg/actuation HFA aerosol inhaler 2 inh inhalation DAILY Qty: 10.7 11RF albuterol sulfate 2.5 mg /3 mL (0.083 %) solution for nebulization 2.5 mg INHALATION Q8H PRN PRN (Reason: shortness of breath or wheezing) Qty: 180 6RF clopidogrel 75 mg tablet 75 mg PO DAILY Qty: 30 11RF montelukast 10 mg tablet 10 mg PO QPM Qty: 90 3RF doxycycline hyclate 100 mg tablet 100 mg PO BID Qty: 20 0RF Primary Care Provider: [facility] Renetta Turner Referrals: [facility] Renetta Turner [Primary Care Provider] - Disposition Disposition: Acute Care Hospital [facility]
[2023-01-16] MEDS: Albuterol 2.5 MG/3 ML VIAL.NEB. INHALATION ×3 (13:36→22:16)
[2023-01-16] MEDS: Ipratropium/Albuterol Sulfate 3 ML AMPUL.NEB INHALATION ×2 (13:36→19:45)
[2023-01-16] MEDS: MethylPREDNISolone 125 MG/2 ML Vial IV (13:42)
[2023-01-16 14:03] LABS: Absolute Neutrophil Count 10.2 X10^3/uL (2.0-7.7); Basophil# 0.03 X10^3/uL; Basophil% 0.2 % (0-1); Hematocrit 36.5 % (40-54); Hemoglobin 11.3 g/dL (13.0-16.5); Lymphocyte % 15.4 % (19-41); Mean Corpuscular Hgb 27.2 pg (27.0-32.0); Mean Corpuscular Volume 87.7 fL (80-94); Mean Platelet Vol. 9.7 fl (6.2-12.0); Monocyte# 0.61 X10^3/uL; Monocyte% 4.7 % (0-10); NRBC Flagged by Analyzer 0 % (0-5); Neutrophil % 78.4 % (47-70); Platelet Count 299 K/mm3 (150-450); RBC Distribution Width CV 14.2 % (11.6-14.6); RBC Distribution Width SD 45.1 fl (35.1-43.9); Red Blood Count 4.16 M/mm3 (4.6-6.2)
--- NOTE | 2023-01-16 14:06 | RAD_ITS ---
STUDY: X-RAY CHEST REASON FOR EXAM: Male, 72 years old. SOB TECHNIQUE: PA and lateral views of the chest. COMPARISON: Comparison is made with prior study January 06, 2023. FINDINGS: EKG electrodes are seen. Stable mild increased markings in the right midlung suggestive of scarring. Hyperinflation. There is no demonstrated pleural abnormality. Normal size heart. Normal mediastinum and bessy. Normal visualized pulmonary arteries. There is atherosclerotic calcification of the aortic arch with tortuosity. There are degenerative changes of the visualized thoracic spine. Prior fusion in the lower cervical spine. There is no demonstrated abnormality of the visualized soft tissue structures of the upper abdomen. RAD/Chest 1 View (Portable) IMPRESSION: Hyperinflation. No acute abnormality is seen. Electronically Signed: Jimmy Mathew MD at 14:21 EDT ,
[2023-01-16 14:19] LABS: BNP,B-Type NATRIURETIC PEPTIDE 48.4 pg/mL (0-100)
[2023-01-16 14:23] LABS: Anion Gap 6 (5-15); BUN 13 mg/dL (7-18); Chloride 107 mmol/L (98-107); Creatinine, Serum 1.18 mg/dL (0.70-1.30); EST Glomerular Filtration Rate 64 mL/min (>60); Est Glom Filt Rate - Afr Amer 77 mL/min (>60); Estimated Creatinine Clearance 60.28 ml/min; Glucose 119 mg/dL (74-106); Potassium 3.6 mmol/L (3.5-5.1); Sodium Level 140 mmol/L (136-145); Troponin-I HS 13 pg/mL (3.0-78.0)
--- NOTE | 2023-01-16 15:03 | PCM.HP.STD ---
HPI - General General Date of Admission: 01/16/23 Date of Service: 01/16/23 Chief Complaint: Shortness of breath, wheezing HPI Narrative LILLIAN GUERRERO, is a 72 M who presents was seen in the emergency room today at [facility] with complaints of shortness of breath at rest and on exertion accompanied by severe wheezing over the past 2 weeks. Patient states he is bringing up yellow and green sputum, he was seen in the emergency room and placed on prednisone 40 mg daily for 5 days recently, he then followed up with his PCP and had another course of prednisone 40 mg daily x5 days, and then finally he was placed on Vibramycin 100 mg twice daily by his pulmonary medicine office, he was unable to take this medicine due to vomiting. Patient has a history of COPD, he is not on oxygen at home, he does have an aerosol machine however. Patient is not currently a smoker. Patient denies any fevers or chills Work-up in the emergency room included a chest x-ray which showed no infiltrates, white blood cell count was slightly elevated at 13,000, and chemistry profile was unremarkable. Patient's pulse ox on room air was 97%, he was ambulated and it did not drop below 90. Patient's COVID antigen test was negative. However, patient was extremely dyspneic using accessory muscles, exhibiting tachypnea, and appeared uncomfortable. Patient will be admitted for exacerbation of chronic obstructive pulmonary disease and bronchitis, he will be placed on IV Solu-Medrol and aggressive aerosol treatments, I will obtain a respiratory panel and the patient, he will be placed on IV Zithromax. [facility] Medical History Alcohol use Ambulates with cane Anxiety Arthritis Asthma Atherosclerotic heart disease of [place] coronary artery without angina pectoris Back pain Bipolar disorder BPH (benign prostatic hyperplasia) Brachial neuritis (05/31/11) Cannabis dependence Cardiology follow-up encounter Cervical radiculitis Cervical spondylosis Chest pain Chest tightness Chronic obstructive lung disease (08/02/20) COPD (chronic obstructive pulmonary disease) CPAP (continuous positive airway pressure) dependence DDD (degenerative disc disease) Dementia Dementia Depression Diabetes Dietary restriction Displacement of lumbar intervertebral disc without myelopathy (03/01/11) Dyspnea on exertion Emphysema, unspecified Essential (primary) hypertension Essential hypertension (08/02/20) Fatigue Former smoker GERD (gastroesophageal reflux disease) High cholesterol History of CHF (congestive heart failure) History of echocardiogram History of IBS History of irregular heartbeat History of pain when walking History of pulmonary embolism History of stress test Hyperlipidemia Hypertension Low back pain (03/01/11) Lung nodule < 6cm on CT Malaise and fatigue (08/02/20) Marijuana use Migraines Myocardial infarct Neck pain (03/01/11) Neck sprain (03/01/11) MONIQUE (obstructive sleep apnea) Pain of left knee and lower leg Partial tear of right rotator cuff Peptic ulcer disease Pleurisy Prostate disease PVCs (premature ventricular contractions) Restless leg syndrome Schizophrenia Shortness of breath on exertion Sleep apnea Smoking greater than 40 pack years Stage 2 moderate COPD by GOLD classification Syncope and collapse Trigger finger Wears glasses Wheezing Home Medications ropinirole 0.5 mg tablet 0.5 mg PO QHS LEGS 04/23/16 [History Last Taken 07/29/19] tamsulosin 0.4 mg capsule 0.4 mg PO QHS PROSTATE 01/30/17 [History Last Taken 07/29/19] omeprazole 40 mg capsule,delayed release 40 mg PO DAILY GERD 07/30/19 [History Last Taken 07/30/19] metformin 500 mg tablet,extended release 24 hr 500 mg PO DAILY DIABETES 09/01/20 [History Last Taken 11/12/21] aripiprazole 10 mg tablet (Abilify) 10 mg PO DAILY ANXIETY 11/09/20 [History Last Taken Unknown] baclofen 10 mg tablet 10 mg PO TID PAIN 11/09/20 [History Last Taken Unknown] icosapent ethyl 1 gram capsule (Vascepa) 2 g PO BID HEART 11/09/20 [History Last Taken Unknown] mirtazapine 15 mg tablet (Remeron) 15 mg PO QHS RLS 11/09/20 [History Last Taken Unknown] trazodone 100 mg tablet 50 mg PO QHS SLEEP 11/09/20 [History Last Taken Unknown] sertraline 100 mg tablet 100 mg PO DAILY DEPPRESSION 05/18/21 [History Last Taken Unknown] potassium chloride 10 mEq tablet,extended release(part/cryst) 10 meq PO DAILY SUPPLEMENT 09/28/21 [History Last Taken Unknown] nitroglycerin 0.4 mg sublingual tablet (Nitrostat) 0.4 mg sublingual Q5-15M PRN chest pain #25 tabs 10/12/21 [Rx Last Taken Unknown] donepezil 10 mg tablet 10 mg PO DAILY ALZHEIMERS 10/23/21 [History Last Taken Unknown] lamotrigine 200 mg tablet (Lamictal) 200 mg PO DAILY Check with primary doctor 10/23/21 [History Last Taken Unknown] olanzapine 10 mg tablet (Zyprexa) 10 mg PO QHS Check with primary doctor 10/23/21 [History Last Taken Unknown] albuterol sulfate 90 mcg/actuation aerosol inhaler 2 puff inhalation Q6H PRN PRN Shortness Of Breath #8.5 grams 12/24/21 [Rx Last Taken 02/05/22] acetaminophen 500 mg tablet 1,000 mg PO Q6H PRN PRN Pain 05/28/22 [History Last Taken Unknown] losartan 25 mg tablet 25 mg PO BID BP 05/28/22 [History Last Taken Unknown] atorvastatin 40 mg tablet 40 mg PO QHS CHOLESTEROL #90 tabs 07/25/22 [Rx Last Taken Unknown] fenofibrate 54 mg tablet 54 mg PO DAILY CHOLESTEROL #90 tabs 09/13/22 [Rx Last Taken Unknown] budesonide 160 mcg-glycopyr 9 mcg-formot 4.8 mcg/actuation HFA inhaler (Breztri Aerosphere) 2 inh inhalation DAILY COPD #10.7 grams 10/02/22 [Rx Last Taken Unknown] albuterol sulfate 2.5 mg/3 mL (0.083 %) solution for nebulization 2.5 mg (3 mL) inhalation Q8H PRN PRN shortness of breath or wheezing #180 mL 11/05/22 [Rx Last Taken Unknown] ondansetron 4 mg disintegrating tablet 4 mg PO Q8H PRN PRN Nausea #10 tabs 11/11/22 [Rx Last Taken Unknown] dicyclomine 10 mg capsule 20 mg (2 x 10 mg) PO TIDAC #20 CAPSULES 11/21/22 [Rx Last Taken Unknown] omeprazole 40 mg capsule,delayed release 40 mg PO DAILY #60 caps 11/28/22 [Rx Last Taken Unknown] clopidogrel 75 mg tablet 75 mg PO DAILY BLOOD THINNER #30 tabs 01/03/23 [Rx Last Taken Unknown] montelukast 10 mg tablet 10 mg PO QPM ALLERGIES #90 tabs 01/06/23 [Rx Last Taken Unknown] prednisone 20 mg tablet 40 mg (2 x 20 mg) PO DAILY #10 tabs 01/06/23 [Rx Last Taken Unknown] doxycycline hyclate 100 mg tablet 100 mg PO BID #20 tabs 01/08/23 [Rx Last Taken Unknown] Allergy/AdvReac Type Severity Reaction Status Date / Time Quinolones Allergy Unknown unknown Verified 01/16/23 12:44 aspirin Allergy Itching, Verified 01/16/23 12:44 Hives levofloxacin [From Levaquin] Allergy Hives, Verified 01/16/23 12:44 Itching Penicillins Allergy Hives, Verified 01/16/23 12:44 Itching Family History Mother CAD (coronary artery disease) Sister Diabetes Surgical History H/O cervical spine surgery H/O ventral hernia repair History of appendectomy History of coronary artery stent placement (10/16/18) History of laparoscopic cholecystectomy History of left heart catheterization (04/2016) Hx of repair of right rotator cuff (06/04/22) Social History household members: none housing: house current occupational status: disabled Smoking Status: Former smoker quit date: 02/14/15 how long ago did patient quit smokin years ago second hand exposure: Yes alcohol intake: former details: Quit 9 years ago substance use type: does not use caffeine: Yes Type: coffee what type of physical activity do you participate in: none seatbelt use: always do you feel safe at home: Yes ROS Constitutional Constitutional: Reports fatigue; Denies anorexia, change in weight, fever(s), night sweats or weakness Eyes Eyes: Denies blurry vision, change in vision, discharge from eye(s) or eye pain Cardiovascular Cardiovascular: Reports dyspnea on exertion; Denies chest pain, claudication, edema or palpitations Respiratory/Chest Respiratory/Chest: Reports cough, dyspnea, excessive phlegm production, productive cough, shortness of breath at rest and shortness of breath with exertion; Denies hemoptysis Gastrointestinal Gastrointestinal: Denies abdominal pain, coffee ground emesis, constipation, diarrhea, dyspepsia, hematemesis, hematochezia, melena, nausea or vomiting Genitourinary Genitourinary: Denies dysuria, hematuria, nocturia, urinary frequency, urinary hesitancy, urinary incontinence or urinary urgency Musculoskeletal Musculoskeletal: Denies back pain, joint pain, joint stiffness, joint swelling, myalgias or neck pain Neurologic Neurologic: Denies abnormal gait, abnormal speech, dizziness, focal weakness, headache(s), loss of vision, numbness, other visual disturbances, paresthesias, syncope or tingling Psychiatric Psychiatric: Denies anxiety, cognitive impairment, depression, irritability, mood swings or suicidal ideation Endocrine Endocrinology: Denies change in body appearance, cold intolerance, excessive sweating, heat intolerance, polydipsia or polyuria Hematologic/Lymphatic Hematologic/Lymphatic: Denies none, anemia, easy bleeding, easy bruising or lymphadenopathy Allergic/Immunologic Allergic/Immunologic: Denies rhinitis, urticaria, eczemia or asthma Vital Signs Vital Signs Vital Signs: 01/16/23 12:44 01/16/23 13:03 01/16/23 13:03 Temperature 99 F 99 F Temperature Source Temporal Temporal Pulse Rate 81 81 Respiratory Rate 14 14 Respiratory Effort Labored Respiratory Depth Shallow Respiratory Pattern Blood Pressure 147/72 H 147/72 H Blood Pressure Mean 97 97 Pulse Ox 97 99 Oxygen Delivery Method Room Air Room Air 01/16/23 13:37 Temperature Temperature Source Pulse Rate 84 Respiratory Rate 20 H Respiratory Effort Respiratory Depth Respiratory Pattern Tachypnea Blood Pressure Blood Pressure Mean Pulse Ox Oxygen Delivery Method Weight Weight: 80.6 kg Body Mass Index (BMI) 24.0 Physical Exam Const alert and oriented x3 Constitutional Narrative: Patient appears dyspneic at rest with tachypnea and use of accessory muscles-he is on room air General Appearance: cooperative, well kempt and well developed Orientation / Consciousness: awake, oriented to person, oriented to place and oriented to time HEENT normocephalic, head/scalp atraumatic, hearing grossly normal bilaterally and moist oral mucous membranes Eyes PERRL, EOMs intact bilaterally and conjunctivae normal Neck supple, no JVD, thyroid normal and no carotid bruits General: trachea midline Resp Resp Narrative: Patient is using accessory muscles during breathing, he appears to be dyspneic and tachypneic, he has audible expiratory wheezes over all lung hayes Auscultation: wheezes expiratory wheezes and throughout; Negative for rales or rhonchi Cardio regular rate, regular rhythm, S1 normal heart sound, S2 normal heart sound, no murmurs, no rub and no gallops GI normal to inspection, nondistended, normoactive bowel sounds, soft to palpation, non-tender and non-distended Extremity no clubbing, cyanosis or edema Skin no rashes or lesions noted General Skin Exam: no breakdown Neuro oriented x3, CN's II-XII intact bilaterally, moves all extremities, no focal motor deficits and no sensory deficits noted Sensorium / Orientation: awake and alert Speech: speech normal Psych affect normal Results Lab / Micro Data 01/16/23 13:58 01/16/23 13:58 Labs: Laboratory Results - last 24 hr 01/16/23 13:58: WBC 13.0 H, RBC 4.16 L, Hgb 11.3 L, Hct 36.5 L, MCV 87.7, MCH 27.2, MCHC 31.0 L, RDW Std Deviation 45.1 H, RDW Coeff of Tad 14.2, Plt Count 299, MPV 9.7, Immature Gran % (Auto) 1.300 H, Neut % (Auto) 78.4 H, Lymph % (Auto) 15.4 L, [place] % (Auto) 4.7, Eos % (Auto) 0.0, Baso % (Auto) 0.2, Absolute Neuts (auto) 10.2 H, Absolute Lymphs (auto) 2.00, Nucleated RBC % 0, Sodium 140, Potassium 3.6, Chloride 107, Carbon Dioxide 27.0, Anion Gap 6, BUN 13, Creatinine 1.18, Estim Creat Clear Calc 60.28, Est GFR (MDRD) Af Amer 77, Est GFR (MDRD) Non-Af 64, BUN/Creatinine Ratio 11.0, Glucose 119 H, Calcium 9.0, Troponin I High Sens 13, B-Natriuretic Peptide 48.4 Radiology Impression Chest X-Ray 01/16/23 14:06 IMPRESSION: Hyperinflation. No acute abnormality is seen. Electronically Signed: Jimmy Mathew MD at 14:21 EDT , Assessment & Plan Assessment/Plan (1) Tachypnea: PLAN: Plan 1. Acute exacerbation of COPD-failed outpatient treatment-patient will be admitted to [facility] 3, he will be placed on every 4 hour aerosol treatments and IV Solu-Medrol, pulse ox will be monitored, respiratory panel was ordered #2 acute bronchitis-failed outpatient treatment-patient will be placed on IV Zithromax, again respiratory panel was ordered #3 bipolar disorder-patient will remain on his home medications, monitor, evaluate, assess, and treat #4 prediabetes versus type 2 diabetes-patient is on outpatient metformin, blood sugars will be monitored, sliding scale insulin will be used, metformin will be held at the present time #5 hyperlipidemia-patient will remain on his statin, monitor, evaluate, assess, and treat #6 coronary artery disease-patient is on Plavix, patient is allergic to aspirin, monitor, evaluate, assess, and treat #7 hypertension-patient takes losartan, it will be continued here #8 BPH-patient will remain on Flomax, monitor, evaluate, assess, and treat Total clinical time spent by myself addressing the patient's medical issues, reviewing all of his data, and collaborating with patient's care team: 55 minutes Charges/Coding Visit Charges Inpatient E&M: 18985 Init Hosp L2
[2023-01-16] MEDS: Azithromycin 500 MG in Dextrose 5%-Water (250mL Bag) 250 ML 250 MG IV (15:26)
[2023-01-16] MEDS: Insulin Lispro 100 UNIT/ML INSULN.PEN SC ×2 (17:08→21:55)
[2023-01-16 17:29] LABS: Bedside Glucose 178 mg/dL (74-106)
[2023-01-16] MEDS: Acetaminophen 500 MG Tablet 1000 MG PO (21:48)
[2023-01-16] MEDS: Mirtazapine 15 MG Tablet PO (21:48)
[2023-01-16 21:50] LABS: Bedside Glucose 198 mg/dL (74-106)
[2023-01-16] MEDS: Baclofen 10 MG Tablet PO (21:50)
[2023-01-16] MEDS: Donepezil HCl 10 MG Tablet PO (21:50)
[2023-01-16] MEDS: Atorvastatin Calcium 40 MG Tablet PO (21:50)
[2023-01-16] MEDS: Losartan Potassium 25 MG Tablet PO (21:51)
[2023-01-16] MEDS: Pramipexole Di-HCl 0.25 MG Tablet PO (21:54)
[2023-01-16] MEDS: traZODone 50 MG Tablet PO (21:54)
[2023-01-16] MEDS: Tamsulosin HCl 0.4 MG Capsule PO (21:54)
[2023-01-16] MEDS: OLANZapine 10 MG Tablet PO (21:54)
[2023-01-16] MEDS: Heparin Injection (Vial) 5,000 UNIT/ML VIAL 5000 UNIT SC (21:54)
--- NOTE | 2023-01-16 22:06 | PCM.HOSP.N ---
Hospitalist Note Respiratory panel with + parainfluenza 4.
[2023-01-17] VITALS (8 sets, daily range): BP systolic 113–124; BP diastolic 62–76; PULSE 74–96; RESP 16–24; TEMP 36.4–37; O2SAT 92–95
[2023-01-17] MEDS: Acetaminophen 500 MG Tablet 1000 MG PO (06:42)
[2023-01-17] MEDS: Baclofen 10 MG Tablet PO ×3 (06:43→20:48)
[2023-01-17 07:09] LABS: Bedside Glucose 140 mg/dL (74-106)
[2023-01-17] MEDS: Ipratropium/Albuterol Sulfate 3 ML AMPUL.NEB INHALATION ×4 (07:10→19:28)
--- NOTE | 2023-01-17 07:55 | PN.HOSP_ITS ---
Reason for Visit Reason for Visit: Diagnoses Tachypnea, not elsewhere classified (01/16/23) Objective Data Objective Data Vital Signs: Vital Signs Temp Pulse Resp BP Pulse Ox O2 Del Method 97.8 F 74 20 H 124/72 H 92 Room Air 01/17/23 04:00 01/17/23 04:00 01/17/23 04:00 01/17/23 04:00 01/17/23 04:00 01/17/23 04:00 Oxygen Delivery Method Room Air Weight: 169 lb Body Mass Index (BMI) 22.9 Intake & Output: Intake and Output for Last 24 Hours 01/15/23 01/16/23 01/17/23 23:59 23:59 23:59 Intake Total 455 / 695 740 / 740 Balance 455 / 695 740 / 740 Lab / Micro Data 01/16/23 13:58 01/16/23 13:58 Labs: Laboratory Results - last 24 hr 01/16/23 13:58: WBC 13.0 H, RBC 4.16 L, Hgb 11.3 L, Hct 36.5 L, MCV 87.7, MCH 27.2, MCHC 31.0 L, RDW Std Deviation 45.1 H, RDW Coeff of Tad 14.2, Plt Count 299, MPV 9.7, Immature Gran % (Auto) 1.300 H, Neut % (Auto) 78.4 H, Lymph % (Auto) 15.4 L, [place] % (Auto) 4.7, Eos % (Auto) 0.0, Baso % (Auto) 0.2, Absolute Neuts (auto) 10.2 H, Absolute Lymphs (auto) 2.00, Nucleated RBC % 0, Sodium 140, Potassium 3.6, Chloride 107, Carbon Dioxide 27.0, Anion Gap 6, BUN 13, Creatinine 1.18, Estim Creat Clear Calc 60.28, Est GFR (MDRD) Af Amer 77, Est GFR (MDRD) Non-Af 64, BUN/Creatinine Ratio 11.0, Glucose 119 H, Calcium 9.0, Troponin I High Sens 13, B-Natriuretic Peptide 48.4 01/16/23 17:07: POC Glucose 178 H 01/16/23 21:29: POC Glucose 198 H 01/17/23 06:45: POC Glucose 140 H Micro: Microbiology 01/16/23 16:30 Mucosa - Nose Respiratory Panel (PCR) - Final Parainfluenza 4 Radiography Diagnostic Testing: Radiology Impression Chest X-Ray 01/16/23 14:06 IMPRESSION: Hyperinflation. No acute abnormality is seen. Electronically Signed: Jimmy Mathew MD at 14:21 EDT , Physical Exam Narrative Seen and examined. Patient is obviously very short of breath with wheezing and increased use of accessory muscles. Patient has cough. Brings up thick yellow sputum. Physical exam General: Alert, Oriented x3, Cooperative HEENT: Atraumatic, PERRLA, EOMI, Normocephalic Oral: No Gingival or Mucosal Lesions/ Ulcerations Neck: Supple, No JVD, Negative Carotid Bruits Lungs: Air entry diminished in bilateral lung bases. Bilateral gross wheezing. No hypoxia or tachypnea present. Cardiovascular: Regular rate, Regular Rhythm, Normal S1, Normal S2, No murmurs Abdomen: Bowel Sounds Present, Soft, Non Tender, Non-Distended : No renal angle tenderness. No suprapubic tenderness. Extremities: No edema, Capillary Refill Less than 3 Seconds Skin: No rashes, No breakdown Musculoskeletal: No Tenderness to Palpation of Joints or Extremities Neurological: Cranial nerves II-XII grossly intact, DTR 2+/4. Increased tone and rigidity of muscles at knees and hip joints. Gait abnormality. Psych/Mental Status: Flat affect. Assessment & Plan Assessment/Plan (1) Tachypnea: PLAN: Plan 1. Acute exacerbation of COPD-failed outpatient treatment-patient is admitted to [facility] 3. The patient is being managed on scheduled bronchodilator, IV Solu-Medrol, Mucinex, incentive spirometry and Pep. Serum magnesium and phosphorus level normal. #2 acute bronchitis-failed outpatient treatment-can you IV Zithromax, again respiratory panel was ordered #3 bipolar disorder-patient continue home medications, monitor, evaluate, assess, and treat. No acute issues #4 prediabetes versus type 2 diabetes-glucose on BMP is 119. Accu-Chek 180. Hold metformin. Accu-Cheks ACH correctional sliding scale Increased muscle stiffness and pain: B12 is low normal at 318 therefore cyanocobalamin 1000 mcg subcu ordered. CK normal. Serum magnesium and phosphorus normal. Patient denies diagnosis of Parkinson's which will need outpatient evaluation. #5 hyperlipidemia-patient will remain on his statin, monitor, evaluate, assess, and treat #6 coronary artery disease-patient is on Plavix, patient is allergic to aspirin, monitor, evaluate, assess, and treat #7 hypertension-patient takes losartan, it will be continued here #8 BPH-patient will remain on Flomax, monitor, evaluate, assess, and treat Microbiology Past 72 Hours 01/16/23 16:30 Mucosa - Nose Respiratory Panel (PCR) - Final Parainfluenza 4 Laboratory Results 01/16/23 17:07: POC Glucose 178 H 01/16/23 21:29: POC Glucose 198 H 01/17/23 06:45: POC Glucose 140 H 01/17/23 09:27: Phosphorus 3.0, Magnesium 2.1, Total Creatine Kinase 114, Vitamin B12 318 01/17/23 10:50: POC Glucose 151 H 01/17/23 15:23: POC Glucose 180 H Charges/Coding Visit Charges Inpatient E&M: 85370 Subs Hosp L2
[2023-01-17] MEDS: Potassium Chloride Oral Tablet 20 MEQ 40 MEQ PO (09:16)
[2023-01-17] MEDS: ARIPiprazole 10 MG Tablet PO (09:17)
[2023-01-17] MEDS: Fenofibrate 48 MG Tablet PO (09:17)
[2023-01-17] MEDS: Losartan Potassium 25 MG Tablet PO ×2 (09:17→20:49)
[2023-01-17] MEDS: Sertraline 100 MG Tablet PO (09:18)
[2023-01-17] MEDS: Clopidogrel Bisulfate 75 MG Tablet PO (09:18)
[2023-01-17] MEDS: Heparin Injection (Vial) 5,000 UNIT/ML VIAL 5000 UNIT SC ×2 (09:18→20:48)
[2023-01-17] MEDS: Azithromycin 500 MG in Dextrose 5%-Water (250mL Bag) 250 ML 250 MG IV (09:18)
[2023-01-17] MEDS: Pantoprazole Sodium 40 MG Tablet PO (09:18)
[2023-01-17] MEDS: lamoTRIgine 100 MG Tablet 200 MG PO (09:18)
--- NOTE | 2023-01-17 09:41 | CASEMGMT ---
Discharge Planning Patient has the following waiver services through [facility]; 14 home delivered meals per week, aide services through [facility] 2 days a week, 2 hours per day, and an emergency notification button. cashier and salesperson is Naty Tereso ([phone]). She requests notification of discharge by phone and that discharge summary be faxed to her at [phone]. SW updated. Damaris Cassidy, Discharge Planning Asst.
--- NOTE | 2023-01-17 10:25 | CASEMGMT ---
RN RAYA Face to Face with patient for initial transition planning/care coordination assessment. RN CM introduced self and role at [facility]. Patient lying in bed, alert and oriented. Patient willing to participate in assessment and is able to answer all questions appropriately. Care providers, pharmacy, and demographics verified. Patient wishes to discharge home, with resumption of aide services. Patient states he has no further needs or concerns at this time. CM to follow for discharge planning needs that may arise. PCP: Renetta león Specialists: Alan, route delivery manager; Zainab, documentation improvement specialist; Preferred Pharmacy: [facility] at [facility] Insurance: [facility] Prescription Benefit: yes Living Will/HPOA: yes, daughter Bethany Falk LNOK: daughter Living Arrangements: Patient lives alone in a single story cottage with no steps to enter. Patient states he is independent for self care, has aides for household Transportation: self, daughter DME/HHC: Patient has shower chair, cane, grab bars, walker, medical alert, nebulizer, and pulse ox. Patient prefers [employer] for DME. Patient has previously been to [facility]. Patient is active with [employer] services and has aides through [facility] for 2x/week, 2hrs/day. Disposition Plan: Patient to discharge home with resumption of aide services, family support, and follow-up plans in place. Glory ANDERSON, RN, CM
[2023-01-17 10:38] LABS: Vitamin B12 318 pg/mL (211-911)
[2023-01-17] MEDS: Insulin Lispro 100 UNIT/ML INSULN.PEN SC ×3 (10:51→20:53)
[2023-01-17 10:58] LABS: CPK Total, Creatine Kinase 114 U/L (39-308); Magnesium 2.1 mg/dL (1.6-2.6)
[2023-01-17 11:09] LABS: Bedside Glucose 151 mg/dL (74-106)
[2023-01-17] MEDS: 0.9% Saline Lock 10 ML Syringe IV ×2 (14:26→20:48)
[2023-01-17 15:43] LABS: Bedside Glucose 180 mg/dL (74-106)
[2023-01-17] MEDS: Cyanocobalamin (B12) 1,000 MCG/ML Vial 1000 MCG SC (17:07)
[2023-01-17] MEDS: Tamsulosin HCl 0.4 MG Capsule PO (20:48)
[2023-01-17] MEDS: Atorvastatin Calcium 40 MG Tablet PO (20:48)
[2023-01-17] MEDS: traZODone 50 MG Tablet PO (20:48)
[2023-01-17] MEDS: Donepezil HCl 10 MG Tablet PO (20:48)
[2023-01-17] MEDS: Pramipexole Di-HCl 0.25 MG Tablet PO (20:48)
[2023-01-17] MEDS: Mirtazapine 15 MG Tablet PO (20:48)
[2023-01-17] MEDS: OLANZapine 10 MG Tablet PO (20:49)
[2023-01-17 21:16] LABS: Bedside Glucose 165 mg/dL (74-106)
[2023-01-18] VITALS (14 sets, daily range): BP systolic 114–126; BP diastolic 60–69; PULSE 78–91; RESP 16–24; TEMP 36.4–36.7; O2SAT 89–97
[2023-01-18] MEDS: Baclofen 10 MG Tablet PO ×3 (06:42→20:31)
[2023-01-18] MEDS: 0.9% Saline Lock 10 ML Syringe IV ×2 (06:43→14:12)
[2023-01-18 07:08] LABS: Bedside Glucose 130 mg/dL (74-106)
[2023-01-18 08:20] LABS: Absolute Lymphocyte Count 1.37 X10^3/uL (0.83-4.51); Absolute Neutrophil Count 18.4 X10^3/uL (2.0-7.7); Basophil# 0.03 X10^3/uL; Basophil% 0.1 % (0-1); Hematocrit 33.6 % (40-54); Hemoglobin 10.4 g/dL (13.0-16.5); Lymphocyte # 1.37 X10^3/ul (0.83-4.51); Lymphocyte % 6.6 % (19-41); Mean Corpuscular Hgb 27.3 pg (27.0-32.0); Mean Corpuscular Volume 88.2 fL (80-94); Mean Platelet Vol. 10.1 fl (6.2-12.0); Monocyte# 0.64 X10^3/uL; Monocyte% 3.1 % (0-10); NRBC Flagged by Analyzer 0 % (0-5); Neutrophil % 88.7 % (47-70); Platelet Count 339 K/mm3 (150-450); RBC Distribution Width CV 14.6 % (11.6-14.6); RBC Distribution Width SD 46.7 fl (35.1-43.9); Red Blood Count 3.81 M/mm3 (4.6-6.2); White Blood Count 20.8 K/mm3 (4.4-11.0)
[2023-01-18] MEDS: Losartan Potassium 25 MG Tablet PO ×2 (08:47→20:31)
[2023-01-18] MEDS: Sertraline 100 MG Tablet PO (08:47)
[2023-01-18] MEDS: Clopidogrel Bisulfate 75 MG Tablet PO (08:47)
[2023-01-18] MEDS: Pantoprazole Sodium 40 MG Tablet PO (08:47)
[2023-01-18] MEDS: Fenofibrate 48 MG Tablet PO (08:48)
[2023-01-18] MEDS: ARIPiprazole 10 MG Tablet PO (08:48)
[2023-01-18] MEDS: lamoTRIgine 100 MG Tablet 200 MG PO (08:48)
[2023-01-18 08:49] LABS: Anion Gap 8 (5-15); BUN 30 mg/dL (7-18); BUN/Creat Ratio 24.4 RATIO (10-20); Calcium,Total 8.8 mg/dL (8.5-10.1); Chloride 110 mmol/L (98-107); Creatinine, Serum 1.23 mg/dL (0.70-1.30); EST Glomerular Filtration Rate 61 mL/min (>60); Est Glom Filt Rate - Afr Amer 74 mL/min (>60); Estimated Creatinine Clearance 57.13 ml/min; Glucose 117 mg/dL (74-106); Potassium 4.2 mmol/L (3.5-5.1); Sodium Level 143 mmol/L (136-145)
[2023-01-18] MEDS: Heparin Injection (Vial) 5,000 UNIT/ML VIAL 5000 UNIT SC ×2 (08:49→20:36)
[2023-01-18] MEDS: Azithromycin 500 MG in Dextrose 5%-Water (250mL Bag) 250 ML 250 MG IV (09:59)
[2023-01-18] MEDS: Ipratropium/Albuterol Sulfate 3 ML AMPUL.NEB INHALATION ×4 (10:40→23:01)
--- NOTE | 2023-01-18 11:36 | CM.UR ---
Social Work SW spoke w/pt in regard to his [employer] services. SW inquried who is his residential case manager. Pt is not sure. He had Sherita who was promoted, then had Brenda who quit. He is not sure at this time who it is. SW explained we can follow up Friday to call [facility] on Aging to ask. JOCE Loving
[2023-01-18 12:20] LABS: Bedside Glucose 130 mg/dL (74-106)
--- NOTE | 2023-01-18 14:12 | PN.HOSP_ITS ---
Reason for Visit Reason for Visit: Diagnoses Tachypnea, not elsewhere classified (01/16/23) Subjective Subjective Follow-up for COPD exacerbation Objective Data Objective Data Vital Signs: Vital Signs Temp Pulse Resp BP Pulse Ox O2 Del Method O2 Flow Rate 97.6 F L 82 18 115/66 97 Nasal Cannula 2 01/18/23 08:45 01/18/23 11:07 01/18/23 11:07 01/18/23 08:45 01/18/23 10:10 01/18/23 08:45 01/18/23 10:10 Oxygen Flow Rate (L/min) 2 Oxygen Delivery Method Nasal Cannula Weight: 168 lb 15.996 oz Body Mass Index (BMI) 22.9 Intake & Output: Intake and Output for Last 24 Hours 01/16/23 01/17/23 01/18/23 23:59 23:59 23:59 Intake Total 455 / 695 1994 255 / 255 Output Total 450 / 450 Balance 455 / 695 1994 -195 / -195 Lab / Micro Data 01/18/23 06:45 01/18/23 06:45 Labs: Laboratory Results - last 24 hr 01/17/23 15:23: POC Glucose 180 H 01/17/23 20:53: POC Glucose 165 H 01/18/23 06:41: POC Glucose 130 H 01/18/23 06:45: WBC 20.8 H, RBC 3.81 L, Hgb 10.4 L, Hct 33.6 L, MCV 88.2, MCH 27.3, MCHC 31.0 L, RDW Std Deviation 46.7 H, RDW Coeff of Tad 14.6, Plt Count 339, MPV 10.1, Immature Gran % (Auto) 1.500 H, Neut % (Auto) 88.7 H, Lymph % (Auto) 6.6 L, [place] % (Auto) 3.1, Eos % (Auto) 0.0, Baso % (Auto) 0.1, Absolute Neuts (auto) 18.4 H, Absolute Lymphs (auto) 1.37, Nucleated RBC % 0, Sodium 143, Potassium 4.2, Chloride 110 H, Carbon Dioxide 25.0, Anion Gap 8, BUN 30 H, Creatinine 1.23, Estim Creat Clear Calc 57.13, Est GFR (MDRD) Af Amer 74, Est GFR (MDRD) Non-Af 61, BUN/Creatinine Ratio 24.4 H, Glucose 117 H, Calcium 8.8, Folate 5.90 01/18/23 12:02: POC Glucose 130 H Micro: Microbiology 01/16/23 16:30 Mucosa - Nose Respiratory Panel (PCR) - Final Parainfluenza 4 Physical Exam Narrative It is symptomatic with shortness of breath cough with thick yellowish sputum and mild hypoxia. Now requires 2 L of oxygen pulse ox 93% Physical exam General: Alert, Oriented x3, Cooperative HEENT: Atraumatic, PERRLA, EOMI, Normocephalic Oral: Oral mucosa moist. No Gingival or Mucosal Lesions/ Ulcerations Neck: Supple, No JVD, Negative Carotid Bruits Lungs: Air entry diminished in bilateral lung bases. Bilateral gross wheezing. Cardiovascular: Regular rate, Regular Rhythm, Normal S1, Normal S2, No murmurs Abdomen: Bowel Sounds Present, Soft, Non Tender, Non-Distended : No renal angle tenderness. No suprapubic tenderness. Extremities: No edema, Capillary Refill Less than 3 Seconds Skin: No rashes, No breakdown Musculoskeletal: No Tenderness to Palpation of Joints or Extremities. ROM restricted. Neurological: Cranial nerves II-XII grossly intact, DTR 2+/4. Increased tone, hypertonia and rigidity of muscles at knees and hip joints. Gait abnormality. Psych/Mental Status: Normal Affect, Appropriate. Assessment & Plan Assessment/Plan (1) Tachypnea: PLAN: Plan 1. Acute exacerbation of COPD-failed outpatient treatment-patient is admitted to [facility] 3. The patient is being managed on scheduled bronchodilator, IV Solu-Medrol, Mucinex, incentive spirometry and Pep. Serum magnesium and phosphorus level normal. 01/18: Patient still has shortness of breath cough with thick phlegm and mild hypoxia. Chest x-ray PA and lateral ordered. Patient has leukocytosis 11.7 thousand increased to 20,000 probably due to steroid. #2 acute bronchitis most likely due to parainfluenza for bronchitis-failed outpatient treatment-can you IV Zithromax, again respiratory panel was ordered 01/18: Respiratory panel shows parainfluenza 4. On airborne isolation. #3 bipolar disorder-patient continue home medications, monitor, evaluate, assess, and treat. No acute issues #4 prediabetes versus type 2 diabetes-glucose on BMP is 119. Accu-Chek 180. Hold metformin. Accu-Cheks ACH correctional sliding scale 11/18: Blood sugar varies between 130- 117. Increased muscle stiffness and pain: B12 is low normal at 318 therefore cyanocobalamin 1000 mcg subcu ordered. CK normal. Serum magnesium and phosphorus normal. Patient denies diagnosis of Parkinson's which will need outpatient evaluation. #5 hyperlipidemia-patient will remain on his statin, monitor, evaluate, assess, and treat #6 coronary artery disease-patient is on Plavix, patient is allergic to aspirin, monitor, evaluate, assess, and treat #7 hypertension-patient takes losartan, it will be continued here #8 BPH-patient will remain on Flomax, monitor, evaluate, assess, and treat Microbiology Past 72 Hours 01/16/23 16:30 Mucosa - Nose Respiratory Panel (PCR) - Final Parainfluenza 4 Laboratory Results 01/17/23 15:23: POC Glucose 180 H 01/17/23 20:53: POC Glucose 165 H 01/18/23 06:41: POC Glucose 130 H 01/18/23 06:45: WBC 20.8 H, RBC 3.81 L, Hgb 10.4 L, Hct 33.6 L, MCV 88.2, MCH 27.3, MCHC 31.0 L, RDW Std Deviation 46.7 H, RDW Coeff of Tad 14.6, Plt Count 339, MPV 10.1, Immature Gran % (Auto) 1.500 H, Neut % (Auto) 88.7 H, Lymph % (Auto) 6.6 L, [place] % (Auto) 3.1, Eos % (Auto) 0.0, Baso % (Auto) 0.1, Absolute Neuts (auto) 18.4 H, Absolute Lymphs (auto) 1.37, Nucleated RBC % 0, Sodium 143, Potassium 4.2, Chloride 110 H, Carbon Dioxide 25.0, Anion Gap 8, BUN 30 H, Creatinine 1.23, Estim Creat Clear Calc 57.13, Est GFR (MDRD) Af Amer 74, Est GFR (MDRD) Non-Af 61, BUN/Creatinine Ratio 24.4 H, Glucose 117 H, Calcium 8.8, Folate 5.90 01/18/23 12:02: POC Glucose 130 H Charges/Coding Visit Charges Inpatient E&M: 23843 Subs Hosp L2
--- NOTE | 2023-01-18 14:29 | RAD_ITS ---
INDICATION: sob, cough EXAMINATION/TECHNIQUE: X-RAY - XR Chest 2 Views COMPARISON: 01/16/2023 FINDINGS: LINES/DEVICES: None. LUNGS: Stable hyperinflation. Minimal blunting of the bilateral costophrenic angles. No consolidation or vascular congestion. MEDIASTINUM AND CARDIOVASCULAR STRUCTURES: Cardiac silhouette stable within normal limits. BONES AND SOFT TISSUES: No acute changes. RAD/Chest PA and Lateral IMPRESSION: Minimal atelectasis at the bilateral costophrenic angles. No acute consolidative process. Electronically Signed: Anjel Sandoval MD at 17:14 EDT ,
[2023-01-18 16:50] LABS: Bedside Glucose 137 mg/dL (74-106)
[2023-01-18] MEDS: Tamsulosin HCl 0.4 MG Capsule PO (20:31)
[2023-01-18] MEDS: traZODone 50 MG Tablet PO (20:31)
[2023-01-18] MEDS: Pramipexole Di-HCl 0.25 MG Tablet PO (20:31)
[2023-01-18] MEDS: Atorvastatin Calcium 40 MG Tablet PO (20:31)
[2023-01-18] MEDS: Mirtazapine 15 MG Tablet PO (20:31)
[2023-01-18] MEDS: OLANZapine 10 MG Tablet PO (20:31)
[2023-01-18] MEDS: Insulin Lispro 100 UNIT/ML INSULN.PEN SC (20:35)
[2023-01-18] MEDS: Donepezil HCl 10 MG Tablet PO (20:37)
[2023-01-18] MEDS: Acetaminophen 500 MG Tablet 1000 MG PO (20:39)
[2023-01-18 23:18] LABS: Bedside Glucose 162 mg/dL (74-106)
[2023-01-19] VITALS (12 sets, daily range): BP systolic 117–140; BP diastolic 64–77; PULSE 79–93; RESP 16–24; TEMP 36.2–36.9; O2SAT 89–95
[2023-01-19] MEDS: 0.9% Saline Lock 10 ML Syringe IV ×2 (05:49→09:50)
[2023-01-19] MEDS: Baclofen 10 MG Tablet PO ×3 (05:49→19:49)
[2023-01-19 06:27] LABS: Bedside Glucose 115 mg/dL (74-106)
[2023-01-19] MEDS: Ipratropium/Albuterol Sulfate 3 ML AMPUL.NEB INHALATION ×4 (06:31→19:18)
[2023-01-19 07:37] LABS: Anion Gap 7 (5-15); BUN 31 mg/dL (7-18); BUN/Creat Ratio 25.4 RATIO (10-20); Calcium,Total 8.5 mg/dL (8.5-10.1); Chloride 108 mmol/L (98-107); Creatinine, Serum 1.22 mg/dL (0.70-1.30); EST Glomerular Filtration Rate 62 mL/min (>60); Est Glom Filt Rate - Afr Amer 75 mL/min (>60); Glucose 125 mg/dL (74-106); Sodium Level 142 mmol/L (136-145)
[2023-01-19] MEDS: Fenofibrate 48 MG Tablet PO (08:44)
[2023-01-19] MEDS: Clopidogrel Bisulfate 75 MG Tablet PO (08:44)
[2023-01-19] MEDS: ARIPiprazole 10 MG Tablet PO (08:44)
[2023-01-19] MEDS: Pantoprazole Sodium 40 MG Tablet PO (08:44)
[2023-01-19] MEDS: Acetaminophen 500 MG Tablet 1000 MG PO (08:44)
[2023-01-19] MEDS: Sertraline 100 MG Tablet PO (08:45)
[2023-01-19] MEDS: Losartan Potassium 25 MG Tablet PO ×2 (08:45→19:50)
[2023-01-19] MEDS: Heparin Injection (Vial) 5,000 UNIT/ML VIAL 5000 UNIT SC ×2 (08:45→19:49)
[2023-01-19] MEDS: lamoTRIgine 100 MG Tablet 200 MG PO (08:45)
--- NOTE | 2023-01-19 09:05 | PN.HOSP_ITS ---
Subjective Subjective Feels a bit better, does not wear oxygen at baseline Objective Data Objective Data Vital Signs: Vital Signs Temp Pulse Resp BP Pulse Ox O2 Del Method O2 Flow Rate 98.5 F 93 17 140/77 H 95 Nasal Cannula 2 01/19/23 08:36 01/19/23 08:36 01/19/23 08:36 01/19/23 08:36 01/19/23 08:36 01/19/23 08:59 01/19/23 08:59 Oxygen Flow Rate (L/min) 2 Oxygen Delivery Method Nasal Cannula Weight: 168 lb 15.996 oz Body Mass Index (BMI) 22.9 Intake & Output: Intake and Output for Last 24 Hours 01/18/23 01/19/23 01/20/23 04:59 03:59 03:59 Intake Total Output Total Balance Lab / Micro Data 01/18/23 06:45 01/19/23 05:30 Labs: Laboratory Results - last 24 hr 01/18/23 12:02: POC Glucose 130 H 01/18/23 16:33: POC Glucose 137 H 01/18/23 20:33: POC Glucose 162 H 01/19/23 05:30: Sodium 142, Potassium 4.0, Chloride 108 H, Carbon Dioxide 27.0, Anion Gap 7, BUN 31 H, Creatinine 1.22, Estim Creat Clear Calc 57.60, Est GFR (MDRD) Af Amer 75, Est GFR (MDRD) Non-Af 62, BUN/Creatinine Ratio 25.4 H, Glucose 125 H, Calcium 8.5 01/19/23 05:48: POC Glucose 115 H Micro: Microbiology 01/16/23 16:30 Mucosa - Nose Respiratory Panel (PCR) - Final Parainfluenza 4 Radiography Diagnostic Testing: Radiology Impression Chest X-Ray 01/18/23 14:29 IMPRESSION: Minimal atelectasis at the bilateral costophrenic angles. No acute consolidative process. Electronically Signed: Anjel Sandoval MD at 17:14 EDT , Physical Exam Narrative General: Alert, Oriented x3, Cooperative, No apparent distress HEENT: Atraumatic, PERRLA, EOMI, Normocephalic Oral: Moist Mucosa Neck: Supple, No JVD Lungs: Diminished, Normal air movement, No rhonchi, wheeze, No rales Cardiovascular: Regular rate, Regular Rhythm, Normal S1, Normal S2, No murmurs Abdomen: Soft, Non Tender, Non-Distended, No Hepato-splenomegaly Extremities: No edema, Capillary Refill Less than 3 Seconds Skin: No rashes, No breakdown Musculoskeletal: No Tenderness to Palpation of Joints or Extremities Neurological: Moves all extremities, Sensory exam intact to light touch and pain Psych/Mental Status: Flat Assessment & Plan Assessment/Plan (1) Tachypnea: PLAN: Plan 1. Acute exacerbation of COPD-failed outpatient treatment-patient is admitted to [facility] 3. The patient is being managed on scheduled bronchodilator, IV Solu-Medrol, Mucinex, incentive spirometry and Pep. Serum magnesium and phosphorus level normal. 01/18: Patient still has shortness of breath cough with thick phlegm and mild hypoxia. Chest x-ray PA and lateral ordered. Patient has leukocytosis 11.7 thousand increased to 20,000 probably due to steroid. 01/19/2023: We will obtain an ambulatory pulse ox to see where were at, will DC Solu-Medrol and place him on p.o. prednisone #2 acute bronchitis most likely due to parainfluenza for bronchitis-failed outpatient treatment-can you IV Zithromax, again respiratory panel was ordered 01/18: Respiratory panel shows parainfluenza 4. On airborne isolation. #3 bipolar disorder-patient continue home medications, monitor, evaluate, assess, and treat. No acute issues #4 prediabetes versus type 2 diabetes-glucose on BMP is 119. Accu-Chek 180. Hold metformin. Accu-Cheks ACH correctional sliding scale 11/18: Blood sugar varies between 130- 117. Increased muscle stiffness and pain: B12 is low normal at 318 therefore cyanocobalamin 1000 mcg subcu ordered. CK normal. Serum magnesium and phosphorus normal. Patient denies diagnosis of Parkinson's which will need outpatient evaluation. #5 hyperlipidemia-patient will remain on his statin, monitor, evaluate, assess, and treat #6 coronary artery disease-patient is on Plavix, patient is allergic to aspirin, monitor, evaluate, assess, and treat #7 hypertension-patient takes losartan, it will be continued here #8 BPH-patient will remain on Flomax, monitor, evaluate, assess, and treat DVT: Heparin Charges/Coding Visit Charges Inpatient E&M: 03660 Subs Hosp L2
[2023-01-19] MEDS: Azithromycin 500 MG in Dextrose 5%-Water (250mL Bag) 250 ML 250 MG IV (09:50)
[2023-01-19 11:58] LABS: Bedside Glucose 140 mg/dL (74-106)
[2023-01-19 17:00] LABS: Bedside Glucose 119 mg/dL (74-106)
[2023-01-19] MEDS: Atorvastatin Calcium 40 MG Tablet PO (19:49)
[2023-01-19] MEDS: Pramipexole Di-HCl 0.25 MG Tablet PO (19:49)
[2023-01-19] MEDS: OLANZapine 10 MG Tablet PO (19:50)
[2023-01-19] MEDS: Donepezil HCl 10 MG Tablet PO (19:50)
[2023-01-19] MEDS: Mirtazapine 15 MG Tablet PO (19:50)
[2023-01-19] MEDS: traZODone 50 MG Tablet PO (19:50)
[2023-01-19] MEDS: Tamsulosin HCl 0.4 MG Capsule PO (19:50)
[2023-01-20] VITALS (7 sets, daily range): BP systolic 108–143; BP diastolic 67–72; PULSE 77–89; RESP 16–20; TEMP 36.7–36.8; O2SAT 89–92
[2023-01-20 00:16] LABS: Bedside Glucose 148 mg/dL (74-106)
[2023-01-20 04:59] LABS: Absolute Lymphocyte Count 2.16 X10^3/uL (0.83-4.51); Absolute Neutrophil Count 9.4 X10^3/uL (2.0-7.7); Basophil# 0.05 X10^3/uL; Basophil% 0.4 % (0-1); Eosinophil# 0.01 X10^3/uL; Eosinophils% 0.1 % (0-5); Hemoglobin 10.3 g/dL (13.0-16.5); Lymphocyte # 2.16 X10^3/ul (0.83-4.51); Mean Corp Hgb Conc 31.2 g/dL (32-36); Mean Corpuscular Hgb 27.4 pg (27.0-32.0); Mean Corpuscular Volume 87.8 fL (80-94); Mean Platelet Vol. 10.2 fl (6.2-12.0); Monocyte# 0.66 X10^3/uL; Monocyte% 5.2 % (0-10); NRBC Flagged by Analyzer 0.2 % (0-5); Neutrophil # 9.43 X10^3/uL (2.7-7.7); POSITIVE COUNT YES; RBC Distribution Width CV 14.2 % (11.6-14.6); RBC Distribution Width SD 45.1 fl (35.1-43.9); Red Blood Count 3.76 M/mm3 (4.6-6.2); White Blood Count 12.7 K/mm3 (4.4-11.0)
[2023-01-20 05:02] LABS: Differential Indicated SCAN CRITERIA MET
[2023-01-20 05:17] LABS: Platelet Estimate ADEQUATE (ADEQ)
[2023-01-20 05:30] LABS: Anion Gap 6 (5-15); BUN 30 mg/dL (7-18); BUN/Creat Ratio 24.6 RATIO (10-20); Calcium,Total 8.4 mg/dL (8.5-10.1); Chloride 109 mmol/L (98-107); Creatinine, Serum 1.22 mg/dL (0.70-1.30); EST Glomerular Filtration Rate 62 mL/min (>60); Est Glom Filt Rate - Afr Amer 75 mL/min (>60); Glucose 106 mg/dL (74-106); Potassium 3.8 mmol/L (3.5-5.1); Sodium Level 143 mmol/L (136-145)
[2023-01-20] MEDS: Baclofen 10 MG Tablet PO (05:46)
[2023-01-20] MEDS: Ipratropium/Albuterol Sulfate 3 ML AMPUL.NEB INHALATION ×2 (06:48→10:27)
[2023-01-20] MEDS: Fenofibrate 48 MG Tablet PO (08:33)
[2023-01-20] MEDS: lamoTRIgine 100 MG Tablet 200 MG PO (08:34)
[2023-01-20] MEDS: Pantoprazole Sodium 40 MG Tablet PO (08:34)
[2023-01-20] MEDS: Sertraline 100 MG Tablet PO (08:34)
[2023-01-20] MEDS: Clopidogrel Bisulfate 75 MG Tablet PO (08:34)
[2023-01-20] MEDS: Losartan Potassium 25 MG Tablet PO (08:35)
[2023-01-20] MEDS: ARIPiprazole 10 MG Tablet PO (08:36)
[2023-01-20] MEDS: predniSONE 20 MG Tablet 40 MG PO (08:37)
--- NOTE | 2023-01-20 08:57 | CASEMGMT ---
Addendum entered by Kimberli Calvo 01/20/23 11:23: Social Work SW let [facility] know pt is going home today. JOCE Loving Original Note: Social Work SW called [facility], pt's director of casework department is Naty Rider. SW left message for Naty letting her know that pt is here, and we will follow up when pt is discharged. JOCE Loving
[2023-01-20] MEDS: Heparin Injection (Vial) 5,000 UNIT/ML VIAL 5000 UNIT SC (10:16)
--- NOTE | 2023-01-20 11:20 | DCINST_ITS ---
Discharge Instructions Diet Discharge Diet: 1800 Calorie Control Diet Activity Discharge Activity: Return to Normal Activity Follow Up Care Test Results: Test results from this visit will be discussed in further detail at your follow- up appointment, if applicable. Discharge Plan Admission Admit Date/Time: 01/16/23 15:12 Primary Reason for Your Visit: parainfluenza virus infection, exacerbation of COPD Attending Provider: Eliel Pulido Primary Care Provider: [facility],Renetta Rodriguez Consulting Providers: Eliel Pulido; Braden Saxena; Dov Mccoy Discharge Orders/Prescriptions Prescriptions: New prednisone 20 mg Tablet 40 mg PO BREAKFAST Qty: 10 0RF Rx Instructions: one twice a day for three days, then one per day for 4 days, then stop Continued metformin 500 mg tablet extended release 24 hr 500 mg PO DAILY trazodone 100 mg tablet 50 mg PO QHS mirtazapine [Remeron] 15 mg tablet 15 mg PO QHS aripiprazole [Abilify] 10 mg tablet 10 mg PO DAILY icosapent ethyl [Vascepa] 1 gram capsule 2 g PO BID baclofen 10 mg tablet 10 mg PO TID sertraline 100 mg tablet 100 mg PO DAILY olanzapine [Zyprexa] 10 mg tablet 10 mg PO QHS donepezil 10 mg tablet 10 mg PO DAILY lamotrigine [Lamictal] 200 mg tablet 200 mg PO DAILY potassium chloride 10 mEq tablet,ER particles/crystals 10 meq PO DAILY ropinirole 0.5 MG tablet 0.5 mg PO QHS Patient Comments: restless legs tamsulosin 0.4 MG capsule,extended release 24hr 0.4 mg PO QHS omeprazole 40 MG capsule,delayed release(DR/EC) 40 mg PO DAILY acetaminophen 500 mg tablet 1,000 mg PO Q6H PRN PRN (Reason: Pain) losartan 25 mg tablet 25 mg PO BID ondansetron 4 mg tablet,disintegrating 4 mg PO Q8H PRN PRN (Reason: Nausea) Qty: 10 0RF dicyclomine 10 mg capsule 20 mg PO TIDAC Qty: 20 0RF nitroglycerin [Nitrostat] 0.4 mg tablet, sublingual 0.4 mg sublingual Q5-15M PRN (Reason: chest pain) Qty: 25 3RF Rx Instructions: do not exceed 3 doses per episode albuterol sulfate 90 mcg/actuation HFA aerosol inhaler 2 puff INHALATION Q6H PRN PRN (Reason: Shortness Of Breath) Qty: 8.5 6RF atorvastatin 40 mg tablet 40 mg PO QHS Qty: 90 3RF fenofibrate 54 mg tablet 54 mg PO DAILY Qty: 90 3RF Patient Comments: TAKE 1 TABLET BY MOUTH EVERY DAY Gabrielletri Aerosphere 160-9-4.8 mcg/actuation HFA aerosol inhaler 2 inh inhalation DAILY Qty: 10.7 11RF albuterol sulfate 2.5 mg /3 mL (0.083 %) solution for nebulization 2.5 mg INHALATION Q8H PRN PRN (Reason: shortness of breath or wheezing) Qty: 180 6RF clopidogrel 75 mg tablet 75 mg PO DAILY Qty: 30 11RF Discontinued omeprazole 40 mg capsule,delayed release(DR/EC) 40 mg PO DAILY Qty: 60 1RF prednisone 20 mg tablet 40 mg PO DAILY Qty: 10 0RF montelukast 10 mg tablet 10 mg PO QPM Qty: 90 3RF doxycycline hyclate 100 mg tablet 100 mg PO BID Qty: 20 0RF Referrals / Follow Up: [facility],Renetta Rodriguez [Primary Care Provider] - In 1 Week Disposition Disposition (needs filled in before D/C Order can be placed): Home Health Service
--- NOTE | 2023-01-20 11:59 | PCM.DC.SUM ---
Providers Date of Admission: 01/16/23 Date of Discharge: 01/20/23 Primary Care Physician: Ren[facility] Reason For Visit: EXAC OF COPD FAILURE OF OUTPATET TREATMENT Diagnosis Discharge Diagnosis (1) Tachypnea: Status: Acute Code(s): R06.82 - Tachypnea, not elsewhere classified Plan 1. Acute exacerbation of COPD-failed outpatient treatment-patient will be admitted to [facility] 3, he will be placed on every 4 hour aerosol treatments and IV Solu-Medrol, pulse ox will be monitored, respiratory panel was ordered #2 acute bronchitis secondary to parainfluenza infection-failed outpatient treatment-patient will be placed on IV Zithromax, again respiratory panel was ordered #3 bipolar disorder-patient will remain on his home medications, monitor, evaluate, assess, and treat #4 prediabetes versus type 2 diabetes-patient is on outpatient metformin, blood sugars will be monitored, sliding scale insulin will be used, metformin will be held at the present time #5 hyperlipidemia-patient will remain on his statin, monitor, evaluate, assess, and treat #6 coronary artery disease-patient is on Plavix, patient is allergic to aspirin, monitor, evaluate, assess, and treat #7 hypertension-patient takes losartan, it will be continued here #8 BPH-patient will remain on Flomax, monitor, evaluate, assess, and treat Medications at Discharge Home Medications ropinirole 0.5 mg tablet 0.5 mg PO QHS LEGS 04/23/16 tamsulosin 0.4 mg capsule 0.4 mg PO QHS PROSTATE 01/30/17 omeprazole 40 mg capsule,delayed release 40 mg PO DAILY GERD 07/30/19 metformin 500 mg tablet,extended release 24 hr 500 mg PO DAILY DIABETES 09/01/20 aripiprazole 10 mg tablet (Abilify) 10 mg PO DAILY ANXIETY 11/09/20 baclofen 10 mg tablet 10 mg PO TID PAIN 11/09/20 icosapent ethyl 1 gram capsule (Vascepa) 2 g PO BID HEART 11/09/20 mirtazapine 15 mg tablet (Remeron) 15 mg PO QHS RLS 11/09/20 trazodone 100 mg tablet 50 mg PO QHS SLEEP 11/09/20 sertraline 100 mg tablet 100 mg PO DAILY DEPPRESSION 05/18/21 potassium chloride 10 mEq tablet,extended release(part/cryst) 10 meq PO DAILY SUPPLEMENT 09/28/21 nitroglycerin 0.4 mg sublingual tablet (Nitrostat) 0.4 mg sublingual Q5-15M PRN chest pain #25 tabs 10/12/21 donepezil 10 mg tablet 10 mg PO DAILY ALZHEIMERS 10/23/21 lamotrigine 200 mg tablet (Lamictal) 200 mg PO DAILY Check with primary doctor 10/23/21 olanzapine 10 mg tablet (Zyprexa) 10 mg PO QHS Check with primary doctor 10/23/21 albuterol sulfate 90 mcg/actuation aerosol inhaler 2 puff inhalation Q6H PRN PRN Shortness Of Breath #8.5 grams 12/24/21 acetaminophen 500 mg tablet 1,000 mg PO Q6H PRN PRN Pain 05/28/22 losartan 25 mg tablet 25 mg PO BID BP 05/28/22 atorvastatin 40 mg tablet 40 mg PO QHS CHOLESTEROL #90 tabs 07/25/22 fenofibrate 54 mg tablet 54 mg PO DAILY CHOLESTEROL #90 tabs 09/13/22 budesonide 160 mcg-glycopyr 9 mcg-formot 4.8 mcg/actuation HFA inhaler (Breztri Aerosphere) 2 inh inhalation DAILY COPD #10.7 grams 10/02/22 albuterol sulfate 2.5 mg/3 mL (0.083 %) solution for nebulization 2.5 mg (3 mL) inhalation Q8H PRN PRN shortness of breath or wheezing #180 mL 11/05/22 ondansetron 4 mg disintegrating tablet 4 mg PO Q8H PRN PRN Nausea #10 tabs 11/11/22 dicyclomine 10 mg capsule 20 mg (2 x 10 mg) PO TIDAC #20 CAPSULES 11/21/22 clopidogrel 75 mg tablet 75 mg PO DAILY BLOOD THINNER #30 tabs 01/03/23 prednisone 20 mg tablet 40 mg (2 x 20 mg) PO BREAKFAST #10 tabs 01/20/23 Hospital Course Summary of Care Provided Minutes Spent on Discharge: 32 Hospital Course: This 72-year-old white male was seen in the emergency room at [facility] with complaints of shortness of breath at rest and exertion accompanied by severe wheezing, these complaints took place over the past 2 weeks prior to being seen in the ER. Patient was bringing up yellow and green sputum at home, he had been placed on outpatient treatment with antibiotics and prednisone without improvement of symptoms. Work-up in the emergency room included a chest x-ray which showed no infiltrates, white blood cell count was slightly elevated and chemistry profile was unremarkable, patient's pulse ox on room air is 97% and it did not drop appreciably on ambulation. Patient's COVID test was negative. Patient remained dyspneic after treatment in the emergency room and was admitted to PCU, respiratory panel was positive for parainfluenza virus, patient was placed on antibiotics and IV Solu-Medrol and aggressive aerosol treatments and improved during his hospital stay. On 01/20/2023, patient was seen and examined: On examination he appeared in good health and spirits. Vital signs as documented. Skin warm and dry and without overt rashes. Neck without JVD, neck was supple, trachea midline, thyroid was normal. Lungs clear bilaterally, normal air movement was noted. Heart exam notable for regular rhythm, normal sounds and absence of murmurs, rubs or gallops. Abdomen unremarkable and without evidence of organomegaly, masses, or abdominal aortic enlargement. Bowel sounds are present, abdomen is not distended. Extremities nonedematous, no cyanosis was noted, no clubbing was noted. Neuro: Cranial nerves II through XII are grossly intact, no focal motor deficits were noted, sensation to light touch and pinprick intact, motor exam 5/5 throughout. Psych: Patient is alert and oriented x3, he does not appear anxious or depressed, he does not appear agitated. On 01/20/2023, patient appears stable for discharge home, he did not require oxygen at the time of discharge. Weight / BMI Weight Weight: 76.657 kg Body Mass Index (BMI) 22.9 ABG / Lab / Microbiology Data 01/20/23 04:25 01/20/23 04:25 Laboratory: Laboratory Results - last 24 hr 01/19/23 16:42: POC Glucose 119 H 01/19/23 19:45: POC Glucose 148 H 01/20/23 04:25: WBC 12.7 H, RBC 3.76 L, Hgb 10.3 L, Hct 33.0 L, MCV 87.8, MCH 27.4, MCHC 31.2 L, RDW Std Deviation 45.1 H, RDW Coeff of Tad 14.2, Plt Count MANAGER PORT, MPV 10.2, Immature Gran % (Auto) 3.300 H, Neut % (Auto) 74.0 H, Lymph % (Auto) 17.0 L, [place] % (Auto) 5.2, Eos % (Auto) 0.1, Baso % (Auto) 0.4, Absolute Neuts (auto) 9.4 H, Absolute Lymphs (auto) 2.16, Nucleated RBC % 0.2, Platelet Estimate ADEQUATE, Sodium 143, Potassium 3.8, Chloride 109 H, Carbon Dioxide 28.0, Anion Gap 6, BUN 30 H, Creatinine 1.22, Estim Creat Clear Calc 57.60, Est GFR (MDRD) Af Amer 75, Est GFR (MDRD) Non-Af 62, BUN/Creatinine Ratio 24.6 H, Glucose 106, Calcium 8.4 L Microbiology: Microbiology 01/16/23 16:30 Mucosa - Nose Respiratory Panel (PCR) - Final Parainfluenza 4 D/C Instructions Discharge Diet: 1800 Calorie Control Diet Meaningful Use Info Meaningful Use Diagnoses (Choose all that apply): None applicable Discharge Plan Admission Admit Date/Time: 01/16/23 15:12 Primary Reason for Your Visit: parainfluenza virus infection, exacerbation of COPD Attending Provider: Eliel Pulido [facility] Providers: Eliel Pulido; Braden Saxena; Dov Mccoy Discharge Orders/Prescriptions Prescriptions: New prednisone 20 mg Tablet 40 mg PO BREAKFAST Qty: 10 0RF Rx Instructions: one twice a day for three days, then one per day for 4 days, then stop Continued metformin 500 mg tablet extended release 24 hr 500 mg PO DAILY trazodone 100 mg tablet 50 mg PO QHS mirtazapine [Remeron] 15 mg tablet 15 mg PO QHS aripiprazole [Abilify] 10 mg tablet 10 mg PO DAILY icosapent ethyl [Vascepa] 1 gram capsule 2 g PO BID baclofen 10 mg tablet 10 mg PO TID sertraline 100 mg tablet 100 mg PO DAILY olanzapine [Zyprexa] 10 mg tablet 10 mg PO QHS donepezil 10 mg tablet 10 mg PO DAILY lamotrigine [Lamictal] 200 mg tablet 200 mg PO DAILY potassium chloride 10 mEq tablet,ER particles/crystals 10 meq PO DAILY ropinirole 0.5 MG tablet 0.5 mg PO QHS Patient Comments: restless legs tamsulosin 0.4 MG capsule,extended release 24hr 0.4 mg PO QHS omeprazole 40 MG capsule,delayed release(DR/EC) 40 mg PO DAILY acetaminophen 500 mg tablet 1,000 mg PO Q6H PRN PRN (Reason: Pain) losartan 25 mg tablet 25 mg PO BID ondansetron 4 mg tablet,disintegrating 4 mg PO Q8H PRN PRN (Reason: Nausea) Qty: 10 0RF dicyclomine 10 mg capsule 20 mg PO TIDAC Qty: 20 0RF nitroglycerin [Nitrostat] 0.4 mg tablet, sublingual 0.4 mg sublingual Q5-15M PRN (Reason: chest pain) Qty: 25 3RF Rx Instructions: do not exceed 3 doses per episode albuterol sulfate 90 mcg/actuation HFA aerosol inhaler 2 puff INHALATION Q6H PRN PRN (Reason: Shortness Of Breath) Qty: 8.5 6RF atorvastatin 40 mg tablet 40 mg PO QHS Qty: 90 3RF fenofibrate 54 mg tablet 54 mg PO DAILY Qty: 90 3RF Patient Comments: TAKE 1 TABLET BY MOUTH EVERY DAY Breztri Aerosphere 160-9-4.8 mcg/actuation HFA aerosol inhaler 2 inh inhalation DAILY Qty: 10.7 11RF albuterol sulfate 2.5 mg /3 mL (0.083 %) solution for nebulization 2.5 mg INHALATION Q8H PRN PRN (Reason: shortness of breath or wheezing) Qty: 180 6RF clopidogrel 75 mg tablet 75 mg PO DAILY Qty: 30 11RF Discontinued omeprazole 40 mg capsule,delayed release(DR/EC) 40 mg PO DAILY Qty: 60 1RF prednisone 20 mg tablet 40 mg PO DAILY Qty: 10 0RF montelukast 10 mg tablet 10 mg PO QPM Qty: 90 3RF doxycycline hyclate 100 mg tablet 100 mg PO BID Qty: 20 0RF [facility] In 1 Week Disposition Disposition (needs filled in before D/C Order can be placed): Home Health Service Charges/Coding Visit Charges Inpatient E&M: 27081 Disch Hosp >30min
[2023-01-20 12:11] LABS: Bedside Glucose 119 mg/dL (74-106)
--- NOTE | 2023-01-20 14:38 | CASEMGMT ---
Addendum entered by Fredo Roberts 01/20/23 17:59: 1200: Pt being discharged. Therapy notes reviewed and additional therapy recommended. FRANTZ DOS SANTOS to room. Pt sitting up in chair. He states he thinks therapy would be beneficial. He states he currently has a nurse that comes every week through [facility] in [place]. Call placed to [place] [facility] and verified pt is active w/them for SN only and they do not have therapy available. Pt made aware and states he would still like therapy and would like to switch [facility] agencies to be able to get therapy and states he would like [facility] and declines wanting list of other [facility] options. Call placed to Donna @ [facility] and referral made. They are able to accept pt w/SOC slated for tomorrow. Pt made aware. Call placed to [facility] and made aware C would need cx'd with them as pt will be switching to [facility] to be able to get therapy. Pt denies having other discharge needs or concerns. Original Note: FRANTZ DOS SANTOS NOTE: Discharge summary faxed to [facility] @ [phone]. Lupis ANDERSON RN, CM
== END 2023-01-20 13:10 | disposition home health service (06) | DRG 192 ==
LOC: ED 15:04 → PCU 15:40
PROVIDERS: Family Medicine; Internal Medicine; Admitting Provider Internal Medicine; Emergency Provider Emergency Medicine; Visit Provider Internal Medicine
DX: J44.1 Chronic obstructive pulmonary disease with (acute) exacerbation (principal); E11.9 Type 2 diabetes mellitus without complications; D64.9 Anemia, unspecified; E78.5 Hyperlipidemia, unspecified; B34.8 Other viral infections of unspecified site; G20.C Parkinsonism, unspecified; J44.0 Chronic obstructive pulmonary disease with (acute) lower respiratory infection; F31.9 Bipolar disorder, unspecified; I10 Essential (primary) hypertension; I25.10 Atherosclerotic heart disease of native coronary artery without angina pectoris; J20.9 Acute bronchitis, unspecified; Z95.5 Presence of coronary angioplasty implant and graft; Z87.891 Personal history of nicotine dependence; N40.0 Benign prostatic hyperplasia without lower urinary tract symptoms
CPT/HCPCS: 36415; 71045; 71046; 80048; 82550; 82607; 82746; 82962; 83735; 83880; 84100; 84484; 85025; 87633; 93005; 94640; 94668; 97110; 97116; 97162; 97166; 97530; 97535; 97802; 99252; 99284; J7030; A4216; G0463; J3420

== ENCOUNTER → 2023-02-03 | Outpatient (CLI) | payer MEDICARE, MEDICAID, SELFPAY ==
[2018-10-16 10:45] VITALS: BMI 21.8
--- NOTE | 2023-02-03 12:48 | PFTCOMP_ITS ---
COMPLETE PULMONARY FUNCTION TEST INTERPRETATION Brief HPI: Patient is a 72-year-old male, currently under the care of myself, who presents to [facility] for complete pulmonary function tests secondary to diagnosis of COPD. Respiratory therapist reports good effort and reproducible results. Interpretation: Forced expiration spirometry shows a mild large airways obstructive ventilatory defect with an FEV1 of 71% predicted. There is a significant bronchodilator response in FVC and FEV1 by strict ATS criteria. Spirograms are of good quality and plateau slowly, indicating slowly emptying areas of the lungs. The respiratory flow volume loop shows decreased expiratory flow rates at all lung volumes consistent with airway obstruction. Lung volumes by body plethysmography show a normal total lung capacity at 7.23 L, 96% predicted. FRC and RV are elevated out of proportion. Lung volume measurements are consistent with air-trapping. Diffusion capacity by carbon monoxide is decreased at 62% predicted. The airway resistance is elevated. Compared to previous pulmonary function tests from 06/14/2021, there is been a significant improvement in spirometric values and air-trapping. Impression: Partially reversible mild large airways obstructive ventilatory defect resulting in air trapping and a symmetric reduction diffusion capacity, but improvement compared to May 2021
== END | disposition home or self-care (01) ==
PROVIDERS: Referring Provider Internal Medicine Critical Care Medicine; Visit Provider Internal Medicine Critical Care Medicine
DX: J44.9 Chronic obstructive pulmonary disease, unspecified (principal)
CPT/HCPCS: 94060; 94726; 94729

== ENCOUNTER → 2023-02-12 | Outpatient (CLI) | payer MEDICARE, MEDICAID, SELFPAY ==
[2018-10-16 10:45] VITALS: BMI 21.8
[2023-02-12 12:44] VITALS: PULSE 81; PULSE 82; PULSE 90; PULSE 91; PULSE 93; PULSE 94; O2SAT 95; O2SAT 96
--- NOTE | 2023-02-13 08:33 | PCM.PSN.6M ---
PSN 6 Minute Walk Test 6 Minute Walk Test 6 Minute Walk Test: 6 Minute Walk Test PSN:6-Minute Walk Test Start: 02/12/23 12:43 Freq: Status: Active Protocol: RESP.6MINW Document 02/12/23 12:44 CATINA (Rec: 02/12/23 12:46 LEONELALEXIARICH [id number]) 6 Minute Walk Test Date Performed 02/12/23 Time Performed 12:30 Height 6 ft Weight: 175 lb Weight in Pounds 175.[address]: Jose F Phillips Assistive device used: Cane Pre-test Oxygen Delivery Method Room Air Pulse Ox 96 Pulse Rate (60-100) 82 Dyspnea She Scale (0-10) 0 Exertion She Scale (6-20) 6 1st minute Oxygen Delivery Method Room Air Pulse Ox 96 Pulse Rate (60-100) 90 2nd minute Oxygen Delivery Method Room Air Pulse Ox 95 Pulse Rate (60-100) 91 3rd minute Oxygen Delivery Method Room Air Pulse Ox 95 Pulse Rate (60-100) 91 4th minute Oxygen Delivery Method Room Air Pulse Ox 95 Pulse Rate (60-100) 94 5th minute Oxygen Delivery Method Room Air Pulse Ox 95 Pulse Rate (60-100) 93 6th minute Oxygen Delivery Method Room Air Pulse Ox 95 Pulse Rate (60-100) 94 Dyspnea She Scale (0-10) 3 Exertion She Scale (6-20) 13 Post-test Oxygen Delivery Method Room Air Pulse Ox 96 Pulse Rate (60-100) 81 Full Laps Walked 12 Partial Lap, Number of Tiles Walked 36 Total Distance Walked (ft) 744 Interpretation Interpretation: The patient ambulated 744 feet over the course of 6 minutes beginning on room air with use of a cane. Pretesting oxygen saturation was noted to be 96% on room air. With ambulation, the corrine oxygen saturation was 95%. There was no significant exertional oxygen desaturation. Recommendations Recommendations: There is no indication for the use of supplemental oxygen at this time.
== END | disposition home or self-care (01) ==
LOC: PSN 12:15
PROVIDERS: Referring Provider Internal Medicine Critical Care Medicine; Visit Provider Internal Medicine Critical Care Medicine
DX: J44.9 Chronic obstructive pulmonary disease, unspecified (principal)
CPT/HCPCS: 94618

== ENCOUNTER → 2023-04-01 | Outpatient (CLI) | payer MEDICARE, MEDICAID, SELFPAY ==
[2018-10-16 10:45] VITALS: BMI 21.8
--- NOTE | 2023-04-01 13:11 | RAD_ITS ---
HISTORY: FALL. TECHNIQUE: XR Spine Thoracic 3 Views. COMPARISON: 03/12/2014. FINDINGS: VERTEBRAE: Vertebral body heights maintained. No acute fracture identified. ALIGNMENT: No significant anterior or posterior subluxation. INTERVERTEBRAL DISCS: C4-7 anterior spinal fusion hardware again noted. Degenerative endplate changes with osteophytes at multiple levels SOFT TISSUES: Unremarkable paraspinal soft tissues. RAD/Thoracic Spine 3 Views IMPRESSION: No acute fracture or dislocation identified in the thoracic spine. Electronically Signed: Iliana Saucedo MD at 14:18 EST ,
== END | disposition home or self-care (01) ==
LOC: RAD 13:05
PROVIDERS: Referring Provider Anesthesiology Pain Medicine; Visit Provider Anesthesiology Pain Medicine
DX: S39.92XA Unspecified injury of lower back, initial encounter (principal); W19.XXXA Unspecified fall, initial encounter
CPT/HCPCS: 72072

== ENCOUNTER → 2023-04-11 | Outpatient (CLI) | payer MEDICARE, MEDICAID, SELFPAY ==
[2018-10-16 10:45] VITALS: BMI 21.8
[2023-04-11 11:54] LABS: Anion Gap 2 (5-15); BUN 13 mg/dL (7-18); BUN/Creat Ratio 10.6 RATIO (10-20); Calcium,Total 8.7 mg/dL (8.5-10.1); Chloride 109 mmol/L (98-107); Creatinine, Serum 1.23 mg/dL (0.70-1.30); EST Glomerular Filtration Rate 61 mL/min (>60); Est Glom Filt Rate - Afr Amer 74 mL/min (>60); Glucose 95 mg/dL (74-106); Potassium 3.2 mmol/L (3.5-5.1); Sodium Level 142 mmol/L (136-145)
== END | disposition home or self-care (01) ==
LOC: LAB 10:44
DX: E87.6 Hypokalemia (principal)
CPT/HCPCS: 36415; 80048

== ENCOUNTER 2023-04-15 13:50 | Observation (INO) | payer MEDICARE, MEDICAID, SELFPAY ==
[2018-10-16 10:45] VITALS: BMI 21.8
[2023-04-15 13:56] VITALS: BP 151/77; PULSE 70; RESP 20; TEMP 36.8; O2SAT 100; BMI 24.7
--- NOTE | 2023-04-15 14:02 | RAD_ITS ---
STUDY: X-RAY CHEST REASON FOR EXAM: Male, 73 years old. SOB TECHNIQUE: Single AP portable view of the chest. COMPARISON: Comparison is made with prior study January 18, 2023. FINDINGS: There is hyperinflation of the lungs consistent with chronic obstructive lung disease (COPD). There is no demonstrated pleural abnormality. Normal size heart. Normal mediastinum and bessy. There is prominence of the pulmonary hilar arteries without peripheral pulmonary vascular congestion, suggesting pulmonary hypertension. Normal visualized aortic arch and descending thoracic aorta. Normal visualized thoracic spine. There is evidence of prior cervical fusion. There is no demonstrated abnormality of the visualized soft tissue structures of the upper abdomen. RAD/Chest 1 View (Portable) IMPRESSION: Hyperinflation. Prominence of the pulmonary artery suggestive of possible pulmonary arterial hypertension. Electronically Signed: Jimmy Mathew MD at 14:36 EST ,
[2023-04-15 14:23] LABS: Absolute Lymphocyte Count 1.86 X10^3/uL (0.83-4.51); Absolute Neutrophil Count 11.4 X10^3/uL (2.0-7.7); Basophil# 0.06 X10^3/uL; Basophil% 0.4 % (0-1); Eosinophil# 0.01 X10^3/uL; Eosinophils% 0.1 % (0-5); Hematocrit 42.3 % (40-54); Lymphocyte # 1.86 X10^3/ul (0.83-4.51); Mean Corp Hgb Conc 30.7 g/dL (32-36); Mean Corpuscular Hgb 27.3 pg (27.0-32.0); Mean Corpuscular Volume 88.7 fL (80-94); Monocyte# 0.81 X10^3/uL; Monocyte% 5.6 % (0-10); NRBC Flagged by Analyzer 0 % (0-5); Neutrophil # 11.39 X10^3/uL (2.7-7.7); Neutrophil % 79.4 % (47-70); Platelet Count 277 K/mm3 (150-450); RBC Distribution Width CV 14.9 % (11.6-14.6); RBC Distribution Width SD 48.2 fl (35.1-43.9); Red Blood Count 4.77 M/mm3 (4.6-6.2); White Blood Count 14.3 K/mm3 (4.4-11.0)
[2023-04-15 14:35] LABS: Anion Gap 6 (5-15); BUN 18 mg/dL (7-18); BUN/Creat Ratio 13.8 RATIO (10-20); Calcium,Total 9.7 mg/dL (8.5-10.1); Chloride 109 mmol/L (98-107); EST Glomerular Filtration Rate 57 mL/min (>60); Est Glom Filt Rate - Afr Amer 69 mL/min (>60); Estimated Creatinine Clearance 53.89 ml/min; Glucose 120 mg/dL (74-106); Potassium 3.8 mmol/L (3.5-5.1); Sodium Level 143 mmol/L (136-145)
[2023-04-15 15:50] VITALS: O2SAT 98
[2023-04-15 17:54] VITALS: BP 164/79; PULSE 71; RESP 22; O2SAT 100
--- NOTE | 2023-04-15 17:56 | EDS_ITS ---
HPI <GAURAV Chicas - Last Filed: 04/15/23 21:29> History of Present Illness Chief Complaint: Shortness of Breath Narrative Narrative: Patient is a 73-year-old male with history of CAD, hypertension, diabetes who currently takes Plavix presents to the emergency department with 2 days of worsening shortness of breath. Patient states he now has full body pain, chest pain that radiates to his left arm, back pain. Patient was brought here by ambulance. Patient quit smoking 15 years ago, however he still uses marijuana occasionally. Patient denies any sick contacts denies any cough. [facility] <GAURAV Chicas - Last Filed: 04/15/23 21:29> [facility] Medical History Alcohol use Ambulates with cane Anxiety Arthritis Asthma Atherosclerotic heart disease of [place] coronary artery without angina pectoris Back pain Bipolar disorder BPH (benign prostatic hyperplasia) Brachial neuritis (05/31/11) Cannabis dependence Cardiology follow-up encounter Cervical radiculitis Cervical spondylosis Chest pain Chest tightness Chronic obstructive lung disease (08/02/20) Chronic pain Congestive heart failure (CHF) COPD (chronic obstructive pulmonary disease) CPAP (continuous positive airway pressure) dependence DDD (degenerative disc disease) Dementia Dementia Depression Diabetes Dietary restriction Displacement of lumbar intervertebral disc without myelopathy (03/01/11) Dyspnea on exertion Emphysema, unspecified Essential (primary) hypertension Essential hypertension (08/02/20) Fatigue Former smoker GERD (gastroesophageal reflux disease) High cholesterol History of CHF (congestive heart failure) History of echocardiogram History of IBS History of irregular heartbeat History of pain when walking History of pulmonary embolism History of stress test Hyperlipidemia Hypertension Kidney disease Low back pain (03/01/11) Lung nodule < 6cm on CT Malaise and fatigue (08/02/20) Marijuana use Migraines Myocardial infarct Neck pain (03/01/11) Neck sprain (03/01/11) MONIQUE (obstructive sleep apnea) Pain of left knee and lower leg Partial tear of right rotator cuff Peptic ulcer disease Pleurisy Prostate disease PVCs (premature ventricular contractions) Restless leg syndrome Rheumatoid arthritis Schizophrenia Shortness of breath on exertion Sleep apnea Smoking greater than 40 pack years Stage 2 moderate COPD by GOLD classification Syncope and collapse Trigger finger Wears glasses Wheezing Home Medications ropinirole 0.5 mg tablet 0.5 mg PO QHS RESTLESS LEGS 04/23/16 [History Last Taken 07/29/19] tamsulosin 0.4 mg capsule 0.4 mg PO QHS PROSTATE 01/30/17 [History Last Taken 07/29/19] omeprazole 40 mg capsule,delayed release 40 mg PO DAILY GERD 07/30/19 [History Last Taken 07/30/19] aripiprazole 10 mg tablet (Abilify) 10 mg PO DAILY ANXIETY 11/09/20 [History Last Taken Unknown] baclofen 10 mg tablet 10 mg PO TID PAIN 11/09/20 [History Last Taken Unknown] icosapent ethyl 1 gram capsule (Vascepa) 2 g PO BID HEART 11/09/20 [History Last Taken Unknown] potassium chloride 10 mEq tablet,extended release(part/cryst) 10 meq PO DAILY SUPPLEMENT 09/28/21 [History Last Taken Unknown] nitroglycerin 0.4 mg sublingual tablet (Nitrostat) 0.4 mg sublingual Q5-15M PRN chest pain #25 tabs 10/12/21 [Rx Last Taken Unknown] donepezil 10 mg tablet 10 mg PO DAILY ALZHEIMERS 10/23/21 [History Last Taken Unknown] lamotrigine 200 mg tablet (Lamictal) 200 mg PO DAILY MOOD 10/23/21 [History Last Taken Unknown] olanzapine 10 mg tablet (Zyprexa) 10 mg PO QHS MOOD 10/23/21 [History Last Taken Unknown] albuterol sulfate 90 mcg/actuation aerosol inhaler 2 puff inhalation Q6H PRN PRN Shortness Of Breath #8.5 grams 12/24/21 [Rx Last Taken 02/05/22] acetaminophen 500 mg tablet 1,000 mg PO Q6H PRN PRN Pain 05/28/22 [History Last Taken Unknown] losartan 25 mg tablet 25 mg PO BID BLOOD PRESSURE 05/28/22 [History Last Taken Unknown] atorvastatin 40 mg tablet 40 mg PO QHS CHOLESTEROL #90 tabs 07/25/22 [Rx Last Taken Unknown] fenofibrate 54 mg tablet 54 mg PO DAILY CHOLESTEROL #90 tabs 09/13/22 [Rx Last Taken Unknown] albuterol sulfate 2.5 mg/3 mL (0.083 %) solution for nebulization 2.5 mg (3 mL) inhalation Q8H PRN PRN shortness of breath or wheezing #180 mL 11/05/22 [Rx Last Taken Unknown] clopidogrel 75 mg tablet 75 mg PO DAILY BLOOD THINNER #30 tabs 01/03/23 [Rx Last Taken Unknown] budesonide 160 mcg-glycopyr 9 mcg-formot 4.8 mcg/actuation HFA inhaler (Breztri Aerosphere) 2 inh inhalation BID COPD #10.7 grams 01/28/23 [Rx Last Taken Unknown] Lactobacillus acidophilus 75 million cell-pectin 100 mg capsule (Acidophilus- Pectin) 1 cap PO DAILY GUT HEALTH 04/15/23 [History Last Taken Unknown] budesonide 3 mg capsule,delayed,extended release 3 mg PO TID CROHNS DISEASE 04/15/23 [History Last Taken Unknown] dicyclomine 20 mg tablet 20 mg PO 4X/DAY IRRITABLE BOWELS 04/15/23 [History Last Taken Unknown] fexofenadine 180 mg tablet 180 mg PO DAILY ALLERGIES 04/15/23 [History Last Taken Unknown] hydrocodone-acetaminophen 5-325mg 5mg-325mg 1 tab PO BID PAIN 04/15/23 [History Last Taken Unknown] ondansetron 4 mg disintegrating tablet 4 mg PO TID PRN NAUSEA 04/15/23 [History Last Taken Unknown] potassium chloride 20 mEq tablet,extended release(part/cryst) 20 meq PO DAILY SUPPLEMENT 04/15/23 [History Last Taken Unknown] rifaximin 550 mg tablet (Xifaxan) 550 mg PO TID DIARRHEA 04/15/23 [History Last Taken Unknown] trazodone 150 mg tablet 150 mg PO DAILY SLEEP 04/15/23 [History Last Taken Unknown] Allergy/AdvReac Type Severity Reaction Status Date / Time Quinolones Allergy Unknown unknown Verified 04/15/23 17:52 aspirin Allergy Itching, Verified 04/15/23 17:52 Hives levofloxacin [From Levaquin] Allergy Hives, Verified 04/15/23 17:52 Itching Penicillins Allergy Hives, Verified 04/15/23 17:52 Itching Family History Mother CAD (coronary artery disease) Sister Diabetes Surgical History H/O cervical spine surgery H/O ventral hernia repair History of appendectomy History of coronary artery stent placement (10/16/18) History of laparoscopic cholecystectomy History of left heart catheterization (04/2016) Hx of repair of right rotator cuff (06/04/22) Social History household members: none housing: house current occupational status: disabled Smoking Status: Former smoker quit date: 02/14/15 how long ago did patient quit smokin years ago second hand exposure: Yes alcohol intake: former details: Quit 9 years ago substance use type: does not use caffeine: Yes Type: coffee what type of physical activity do you participate in: none seatbelt use: always do you feel safe at home: Yes ROS <GAURAV Chicas - Last Filed: 04/15/23 21:29> ROS ED ROS Narrative Constitutional: Negative for fever, chills, weight loss, weakness Eyes: Negative for vision loss, vision change, double vision ENT: Negative for any sore throat, ear pain, congestion Cardiovascular: Negative for any palpitations. Positive for chest pain, tightness Respiratory: Negative for any cough, sputum production, hemoptysis.positive for dyspnea, dyspnea on exertion, orthopnea Gastrointestinal: Negative for any abdominal pain, nausea, vomiting, diarrhea, constipation, blood in stool, blood in vomit : Negative for any urinary frequency, dysuria, retention, blood in urine Muscle skeletal: Negative for any arthralgias, neck pain. Positive for myalgias, back pain Neurological: Negative for any headache, syncope, paresthesias, dizziness Skin: Negative for any rashes, lumps, itching, abrasions, lacerations Psychiatric: Negative for any depression, anxiety, stress, suicidal ideation, homicidal ideation Hematologic: Negative for any easy bruising, excessive bruising, easy bleeding Allergies: Negative for any eczema, hives, rash EXAM <GAURAV Chicas - Last Filed: 04/15/23 21:29> Physical Exam Narrative Exam Narrative: Vital signs reviewed. Patient is tachypneic, vital signs are stable. HEET: Head normocephalic atraumatic, TMs clear bilaterally. Posterior pharynx is clear, moist mucous membranes. Nares clear bilaterally. Neck: Supple with no lymphadenopathy or tenderness. No signs of meningismus. Cardiac: Regular rate and rhythm no murmurs gallops or rubs, equal peripheral pulses bilaterally. Respiratory: Expiratory wheezes bilaterally. No chest tenderness. Abdomen: Soft, nontender, nondistended. No abdominal bruit or pulsatile masses. No hepatosplenomegaly Extremities: +1 pitting edema, no signs of gross trauma or deformity. Active full range of motion of all extremities. Neuro: Cranial nerves II through XII intact, no focal neurological deficits. Skin: Clean dry and intact with no rash, purpura, petechiae, vesicles or pustules. Backs/flank: No CVA tenderness, no midline spinal tenderness, no deformity. Psych: Normal mood and affect. No SI, HI or acute psychosis. Const Vital Signs: 04/15/23 13:56 04/15/23 15:50 04/15/23 17:54 Temperature 98.2 F Temperature Source Temporal Pulse Rate 70 Respiratory Rate 20 H Respiratory Effort Respiratory Depth Respiratory Pattern Blood Pressure 151/77 H Blood Pressure Mean 101 Pulse Ox 100 98 100 Oxygen Delivery Method Room Air Room Air Room Air 04/15/23 17:54 04/15/23 17:54 04/15/23 17:56 Temperature Temperature Source Pulse Rate 71 Respiratory Rate 22 H Respiratory Effort Short of Breath Labored Respiratory Depth Normal Respiratory Pattern Blood Pressure 164/79 H Blood Pressure Mean 107 Pulse Ox 100 100 Oxygen Delivery Method Room Air Room Air 04/15/23 18:13 04/15/23 19:11 04/15/23 21:26 Temperature Temperature Source Pulse Rate 65 68 67 Respiratory Rate 20 H 22 H 20 H Respiratory Effort Respiratory Depth Respiratory Pattern Normal Blood Pressure 145/94 H 168/87 H Blood Pressure Mean 111 114 Pulse Ox 100 100 Oxygen Delivery Method Room Air Positive well nourished and well developed General Appearance ED: well developed <Dr. Min Hewitt, DO - Last Filed: 04/15/23 23:19> Physical Exam Const Vital Signs: 04/15/23 13:56 04/15/23 15:50 04/15/23 17:54 Temperature 98.2 F Temperature Source Temporal Pulse Rate 70 Respiratory Rate 20 H Respiratory Effort Respiratory Depth Respiratory Pattern Blood Pressure 151/77 H Blood Pressure Mean 101 Pulse Ox 100 98 100 Oxygen Delivery Method Room Air Room Air Room Air 04/15/23 17:54 04/15/23 17:54 04/15/23 17:56 Temperature Temperature Source Pulse Rate 71 Respiratory Rate 22 H Respiratory Effort Short of Breath Labored Respiratory Depth Normal Respiratory Pattern Blood Pressure 164/79 H Blood Pressure Mean 107 Pulse Ox 100 100 Oxygen Delivery Method Room Air Room Air 04/15/23 18:13 04/15/23 19:11 04/15/23 21:26 Temperature Temperature Source Pulse Rate 65 68 67 Respiratory Rate 20 H 22 H 20 H Respiratory Effort Respiratory Depth Respiratory Pattern Normal Blood Pressure 145/94 H 168/87 H Blood Pressure Mean 111 114 Pulse Ox 100 100 Oxygen Delivery Method Room Air MDM <GAURAV Chicas - Last Filed: 04/15/23 21:29> [facility] Lab Data Labs: Laboratory Results - last 24 hr 04/15/23 04/15/23 13:45 18:19 WBC 14.3 H RBC 4.77 Hgb 13.0 Hct 42.3 MCV 88.7 MCH 27.3 MCHC 30.7 L RDW Std Deviation 48.2 H RDW Coeff of Tad 14.9 H Plt Count 277 MPV 10.0 Immature Gran % (Auto) 1.500 H Neut % (Auto) 79.4 H Lymph % (Auto) 13.0 L Warren % (Auto) 5.6 Eos % (Auto) 0.1 Baso % (Auto) 0.4 Absolute Neuts (auto) 11.4 H Absolute Lymphs (auto) 1.86 Nucleated RBC % 0 D-Dimer Quant (PE/DVT) 1.31 H* Sodium 143 Potassium 3.8 Chloride 109 H Carbon Dioxide 28.0 Anion Gap 6 BUN 18 Creatinine 1.30 Estim Creat Clear Calc 53.89 Est GFR (MDRD) Af Amer 69 Est GFR (MDRD) Non-Af 57 L BUN/Creatinine Ratio 13.8 Glucose 120 H Calcium 9.7 Troponin I High Sens 14 B-Natriuretic Peptide 33.9 Radiography Diagnostic Testing: Clinical Impression(s) from Imaging Studies Chest X-Ray 04/15/23 14:02 IMPRESSION: Hyperinflation. Prominence of the pulmonary artery suggestive of possible pulmonary arterial hypertension. Electronically Signed: Jimmy Mathew MD at 14:36 EST , Chest CTA 04/15/23 18:54 IMPRESSION: Right pulmonary embolism. No arterial dissection. Electronically Signed: Jose Luis Clemens DO at 20:05 EST , ADDENDUM: 04/15/232014 IMPRESSION: Right pulmonary embolism. No arterial dissection. N.B. : The above Results were Read Back by Jose Luis Clemens DO to Julien Devine NP, and understanding confirmed on 04/15/2023 20:08:33 (ET). Electronically Signed: Jose Luis Clemens DO at 20:05 EST , ADDENDUM: 04/15/232029 IMPRESSION: Right pulmonary embolism. No arterial dissection. N.B. : The above Results were Read Back by Jose Luis Clemens DO to Julien Devine NP, and understanding confirmed on 04/15/2023 20:23:57 (ET). Electronically Signed: Jose Luis Clemens DO at 20:05 EST , EKG Normal sinus rhythm: Attestation: I personally reviewed and interpreted this EKG as follows: Interpretation: Sinus Rhythm Comments: Normal sinus rhythm, rate of 62 bpm, AL interval 136 ms, QRS duration 66 ms, no acute ST elevation, no acute infarct noted. Treatment and Re-Evaluation :: Patient appears to be in mild distress secondary to shortness of breath. Presenting to the emerged part with shortness of breath, body aches has been ongoing for the last 2 days. Differential diagnosis includes community-acquired pneumonia, COPD exacerbation, pneumothorax, COVID-19 or influenza, patient has no cough, fever or chills. Patient states he does have pain however he does have chronic pain. Patient received full cardiac workup including a troponin. Patient's chest x-ray entered by ER physician shows hyperinflation. There is a prominence of the pulmonary artery suggestive possible pulmonary artery hypertension. Patient denies any significant swelling. Patient received basic laboratory eval including CBC, chemistries, BNP. Patient will receive breathing treatments, 60 mg of methylprednisone. Patient CBC shows a leukocytosis white blood count of 14.3, patient's chemistries show normal renal function at his baseline. Patient received a troponin, D-dimer as well as a proBNP. Patient's troponin was negative, BNP was negative. CTA of the chest will be ordered for a D-dimer 1.31. Patient did have improvement with albuterol treatments. At this time, is no evidence of any ACS or IL. I got a call from radiology regarding this patient CT scan of the chest. Patient CT scan of the chest shows a right pulmonary embolism. No arterial dissection. Patient did receive IV morphine, IV Zofran for significant pain to his chest and back. Patient did try to ambulate with a pulse ox, patient was unable to get up secondary to pain, he was really unsteady, and was tachypneic. At this time, I do believe the patient needs to be admitted to the hospital. I will reach out to the hospitalist for admission as well as to see what they prefer for anticoagulation. <Dr. Min Hewitt, DO - Last Filed: 04/15/23 23:19> [facility] Narrative Medical decision making narrative: I have personally performed a face to face assessment of the patient and have reviewed the LOPEZ Note. I performed a substantive portion of the visit including all aspects of the following. My strat[place] findings include: History: Patient presents with shortness of breath that has been getting worse over the past 2 days. Patient states it began after a fall 2 days ago. Patient states it began rather suddenly. Patient states it has been constant. Patient is nothing makes it better nothing makes it worse. Patient admits to a sore throat and some chills. Patient denies any fevers. Patient admits to some pain in his left shoulder and back that began after the fall. Patient denies any nausea or vomiting. Patient denies any PE risk factors. Exam: Vital signs are stable. Patient is afebrile. Patient is in no acute distress. Oral mucosa is pink and moist. Neck is supple. Trachea is midline. There is no JVD. Heart was regular rate and rhythm. Lungs showed expiratory wheezes bilaterally. There is good respiratory effort noted. Abdomen is soft. Bowel sounds are normal. There is no tenderness. Cranial nerves II through XII are intact. There are no focal motor or sensory deficits noted. Medical Decision Making: Differential diagnosis includes pneumonia, pneumothorax, congestive heart failure, COPD exacerbation, pulmonary embolism, and viral infection. EKG will be obtained to assess for cardiac dysrhythmia and cardiac ischemia. Chest x-ray will be obtained to assess for pneumonia and pneumothorax. CBC will be obtained to assess for leukocytosis and anemia. Basic metabolic profile will be obtained to assess for electrolyte abnormality and renal function. High-sensitivity troponin will be obtained to assess for cardiac ischemia. D-dimer will be obtained to assess for pulmonary embolism. BNP will be obtained to assess for congestive heart failure. COVID-19, influenza, and RSV PCR will be obtained to assess for viral illness. EKG was obtained. On my independent interpretation, it showed a normal sinus rhythm with a rate of 62. AL interval, QRS interval, and QTc intervals were all normal. [place] was normal. There are no acute ST or T wave changes. Portable 1 view chest x-ray was obtained. On my independent interpretation, lung hayes showed hyperinflation. There is mild prominence of the pulmonary artery suggestive of possible pulmonary arterial hypertension. There is normal cardiac silhouette. Bony thorax is normal. There is no acute process noted. Radiologist also interpreted the x-ray and agrees. CBC was reviewed. There is a mild leukocytosis of 14.3. The remainder was within normal limits. D-dimer was reviewed and was elevated at 1.31. Basic metabolic profile was reviewed and was essentially within normal limits. High-sensitivity troponin was reviewed and was normal at 14. BNP was reviewed and was normal at 33.9. Because of the elevated D-dimer, CTA of the chest will be obtained to assess for pulmonary embolism. CTA of the chest was reviewed. There is a right-sided pulmonary embolism. There is no aortic dissection. There is no pneumonia. This was interpreted by the radiologist and was also independently reviewed by myself. Patient was advised of his findings. Patient states he was having difficulty ambulating and felt too weak to be able to go home. Because of this, I discussed case with the hospitalist. She will admit the patient for observation. Patient understood and was agreeable with the plan. All questions were answered. Lab Data Labs: Laboratory Results - last 24 hr 04/15/23 04/15/23 13:45 18:19 WBC 14.3 H RBC 4.77 Hgb 13.0 Hct 42.3 MCV 88.7 MCH 27.3 MCHC 30.7 L RDW Std Deviation 48.2 H RDW Coeff of Tad 14.9 H Plt Count 277 MPV 10.0 Immature Gran % (Auto) 1.500 H Neut % (Auto) 79.4 H Lymph % (Auto) 13.0 L Warren % (Auto) 5.6 Eos % (Auto) 0.1 Baso % (Auto) 0.4 Absolute Neuts (auto) 11.4 H Absolute Lymphs (auto) 1.86 Nucleated RBC % 0 D-Dimer Quant (PE/DVT) 1.31 H* Sodium 143 Potassium 3.8 Chloride 109 H Carbon Dioxide 28.0 Anion Gap 6 BUN 18 Creatinine 1.30 Estim Creat Clear Calc 53.89 Est GFR (MDRD) Af Amer 69 Est GFR (MDRD) Non-Af 57 L BUN/Creatinine Ratio 13.8 Glucose 120 H Calcium 9.7 Troponin I High Sens 14 B-Natriuretic Peptide 33.9 Radiography Diagnostic Testing: Clinical Impression(s) from Imaging Studies Chest X-Ray 04/15/23 14:02 IMPRESSION: Hyperinflation. Prominence of the pulmonary artery suggestive of possible pulmonary arterial hypertension. Electronically Signed: Jimmy Mathew MD at 14:36 EST , Chest CTA 04/15/23 18:54 IMPRESSION: Right pulmonary embolism. No arterial dissection. Electronically Signed: Jose Luis Clemens DO at 20:05 EST , ADDENDUM: 04/15/232014 IMPRESSION: Right pulmonary embolism. No arterial dissection. N.B. : The above Results were Read Back by Jose Luis Clemens DO to Julien Devine NP, and understanding confirmed on 04/15/2023 20:08:33 (ET). Electronically Signed: Jose Luis Clemens DO at 20:05 EST , ADDENDUM: 04/15/23 2030 IMPRESSION: Right pulmonary embolism. No arterial dissection. N.B. : The above Results were Read Back by Jose Luis Clemnes DO to Julien Devine NP, and understanding confirmed on 04/15/2023 20:23:57 (ET). Electronically Signed: Jose Luis Clemens DO at 20:05 EST , Discharge Plan Dx/Rx/DC Orders Clinical Impression: Pulmonary embolism, Acute dyspnea, Chest pain Disposition Disposition: Acute Care [facility]
[2023-04-15] MEDS: MethylPREDNISolone 125 MG/2 ML Vial 60 MG IV (18:08)
[2023-04-15] MEDS: Albuterol 2.5 MG/3 ML VIAL.NEB. INHALATION (18:12)
[2023-04-15] MEDS: Ipratropium/Albuterol Sulfate 3 ML AMPUL.NEB INHALATION (18:12)
[2023-04-15 18:13] VITALS: PULSE 65; RESP 20
[2023-04-15 18:48] LABS: BNP,B-Type NATRIURETIC PEPTIDE 33.9 pg/mL (0-100)
[2023-04-15 18:48] LABS: D-Dimer Quantitative (DVT/PE) 1.31 FEU/ug/m (0.27-0.49)
[2023-04-15 18:52] LABS: Troponin-I HS 14 pg/mL (3.0-78.0)
--- NOTE | 2023-04-15 18:54 | CT_ITS ---
We are attempting to reach an attending provider to discuss findings. An addendum with communication details will be sent when the communication is complete. STUDY: CTA CHEST REASON FOR EXAM: Male, 73 years old. PE RADIATION DOSAGE (If Supplied By Facility): CTDIvol = ( 10.87 ) mGy, DLP = ( 356.43 ) mGycm TECHNIQUE: The examination was performed with the intravenous administration of IV 100mL Isovue-370. Post-processing of the angiographic images was performed, with multiplanar reformation and 3D reconstruction. Individualized dose optimization techniques were used for this CT. COMPARISON: FINDINGS: There is a filling defect within the right pulmonary artery distally extending into the right upper and lower lobe peripheral pulmonary arteries. This is compatible with pulmonary embolism. Normal thoracic aorta and visualized great vessels. There is no demonstrated aortic dissection. Normal heart and pericardium. Mediastinal and right hilar calcifications. Normal visualized trachea and bronchi. The lungs are well expanded. Normal pulmonary parenchyma. Normal pleura. Normal chest wall structures. Normal osseous structures. Small hiatal hernia. Right renal cyst. CT/CTA Chest W/WO Contrast IMPRESSION: Right pulmonary embolism. No arterial dissection. Electronically Signed: Jose Luis Clemens DO at 20:05 EST ,
[2023-04-15 19:11] VITALS: BP 145/94; PULSE 68; RESP 22; O2SAT 100
[2023-04-15] MEDS: Morphine 4 MG/ML Syringe IV (20:14)
[2023-04-15] MEDS: Ondansetron 4 MG/2 ML Vial IV (20:14)
--- NOTE | 2023-04-15 20:32 | ED.RN ---
2029- attempted to ambulate patient. He is extremely weak and very unsteady on his feet. He does not feel like it is safe for him to return home as he lives alone- jules
[2023-04-15 21:26] VITALS: BP 168/87; PULSE 67; RESP 20; O2SAT 100
--- NOTE | 2023-04-15 21:40 | HP.PCM.HOS_ITS ---
[facility] - General General Date of Admission: 04/15/23 Date of Service: 04/15/23 Chief Complaint: Shortness of breath HPI Narrative LILLIAN GUERRERO, is a 73 M who presented to the emergency department at [facility] on 04/15/2023 with a chief complaint of shortness of breath. Patient states he started having a bit of shortness of breath on the but noticed significant shortness of breath today while he was shopping at [employer]. He stated he got home and called his manager process who instructed to come to the ER because he sounded short of breath on the phone. He had no cough, fever, chills however he does complain of some pleuritic pain in the anterior chest that radiates to his mid back. He had no recent surgeries, travel or other risk factors for developing pulmonary embolism. He has had some issues with his knee and did have arthroscopy done about a year ago on his left knee and recently had a corticosteroid injection on 04/14/2023. Vital signs show temperature of 98.2, heart rate 70, blood pressure 151/77, resp iratory rate has been anywhere between 20 and 22 and oxygen saturations have been between 98 and 100% on room air. CBC shows mild leukocytosis with a white count of 14.3 and a 79.4% neutrophilia. Hemoglobin is normal at 13. Chemistry panel was unremarkable. Troponin was 14 and BNP was 33.9. D-dimer was obtained and found to be elevated at 1.31. Chest x-ray was unremarkable for acute findings but does show findings consistent with COPD. There was some prominence of the pulmonary artery that was suggestive of possible pulmonary hypertension. CTA of the chest was done given the elevated D-dimer and this showed a right pulmonary embolism with no arterial dissection. Filling defect was found in the distal right pulmonary artery that extended into the right upper and right lower lobe peripheral pulmonary arteries. Given the fact that he was stable on room air the plan was send him home with Eliquis loading dose and transition to the 5 mg twice daily dosing after 7 days of the loading dose however they got him up to ambulate him and he was weak and unsteady. He lives alone and it was felt that he was not able to return home. I did discuss his ambulatory status with the patient and he has been having ambulatory issues due to lower extremity pain most notably in his knees. Dr. Bernard recently did an injection into his left knee with corticosteroid yesterday and he is not having much relief from that yet. I suspect this is predominantly the reason for his weakness and he likely needs physical therapy for strengthening of his lower extremities. He will be admitted for observation as he meets no strict criteria for full admission. [facility] Medical History Alcohol use Ambulates with cane Anxiety Arthritis Asthma Atherosclerotic heart disease of [place] coronary artery without angina pectoris Back pain Bipolar disorder BPH (benign prostatic hyperplasia) Brachial neuritis (05/31/11) Cannabis dependence Cardiology follow-up encounter Cervical radiculitis Cervical spondylosis Chest pain Chest tightness Chronic obstructive lung disease (08/02/20) Chronic pain Congestive heart failure (CHF) COPD (chronic obstructive pulmonary disease) CPAP (continuous positive airway pressure) dependence DDD (degenerative disc disease) Dementia Dementia Depression Diabetes Dietary restriction Displacement of lumbar intervertebral disc without myelopathy (03/01/11) Dyspnea on exertion Emphysema, unspecified Essential (primary) hypertension Essential hypertension (08/02/20) Fatigue Former smoker GERD (gastroesophageal reflux disease) High cholesterol History of CHF (congestive heart failure) History of echocardiogram History of IBS History of irregular heartbeat History of pain when walking History of pulmonary embolism History of stress test Hyperlipidemia Hypertension Kidney disease Low back pain (03/01/11) Lung nodule < 6cm on CT Malaise and fatigue (08/02/20) Marijuana use Migraines Myocardial infarct Neck pain (03/01/11) Neck sprain (03/01/11) MONIQUE (obstructive sleep apnea) Pain of left knee and lower leg Partial tear of right rotator cuff Peptic ulcer disease Pleurisy Prostate disease PVCs (premature ventricular contractions) Restless leg syndrome Rheumatoid arthritis Schizophrenia Shortness of breath on exertion Sleep apnea Smoking greater than 40 pack years Stage 2 moderate COPD by GOLD classification Syncope and collapse Trigger finger Wears glasses Wheezing Home Medications ropinirole 0.5 mg tablet 0.5 mg PO QHS RESTLESS LEGS 04/23/16 [History Last Taken 07/29/19] tamsulosin 0.4 mg capsule 0.4 mg PO QHS PROSTATE 01/30/17 [History Last Taken 07/29/19] omeprazole 40 mg capsule,delayed release 40 mg PO DAILY GERD 07/30/19 [History Last Taken 07/30/19] aripiprazole 10 mg tablet (Abilify) 10 mg PO DAILY ANXIETY 11/09/20 [History Last Taken Unknown] baclofen 10 mg tablet 10 mg PO TID PAIN 11/09/20 [History Last Taken Unknown] icosapent ethyl 1 gram capsule (Vascepa) 2 g PO BID HEART 11/09/20 [History Last Taken Unknown] potassium chloride 10 mEq tablet,extended release(part/cryst) 10 meq PO DAILY SUPPLEMENT 09/28/21 [History Last Taken Unknown] nitroglycerin 0.4 mg sublingual tablet (Nitrostat) 0.4 mg sublingual Q5-15M PRN chest pain #25 tabs 10/12/21 [Rx Last Taken Unknown] donepezil 10 mg tablet 10 mg PO DAILY ALZHEIMERS 10/23/21 [History Last Taken Unknown] lamotrigine 200 mg tablet (Lamictal) 200 mg PO DAILY MOOD 10/23/21 [History Last Taken Unknown] olanzapine 10 mg tablet (Zyprexa) 10 mg PO QHS MOOD 10/23/21 [History Last Taken Unknown] albuterol sulfate 90 mcg/actuation aerosol inhaler 2 puff inhalation Q6H PRN PRN Shortness Of Breath #8.5 grams 12/24/21 [Rx Last Taken 02/05/22] acetaminophen 500 mg tablet 1,000 mg PO Q6H PRN PRN Pain 05/28/22 [History Last Taken Unknown] losartan 25 mg tablet 25 mg PO BID BLOOD PRESSURE 05/28/22 [History Last Taken Unknown] atorvastatin 40 mg tablet 40 mg PO QHS CHOLESTEROL #90 tabs 07/25/22 [Rx Last Taken Unknown] fenofibrate 54 mg tablet 54 mg PO DAILY CHOLESTEROL #90 tabs 09/13/22 [Rx Last Taken Unknown] albuterol sulfate 2.5 mg/3 mL (0.083 %) solution for nebulization 2.5 mg (3 mL) inhalation Q8H PRN PRN shortness of breath or wheezing #180 mL 11/05/22 [Rx Last Taken Unknown] clopidogrel 75 mg tablet 75 mg PO DAILY BLOOD THINNER #30 tabs 01/03/23 [Rx Last Taken Unknown] budesonide 160 mcg-glycopyr 9 mcg-formot 4.8 mcg/actuation HFA inhaler (Breztri S&N Airoflophere) 2 inh inhalation BID COPD #10.7 grams 01/28/23 [Rx Last Taken Unknown] Lactobacillus acidophilus 75 million cell-pectin 100 mg capsule (Acidophilus- Pectin) 1 cap PO DAILY GUT HEALTH 04/15/23 [History Last Taken Unknown] budesonide 3 mg capsule,delayed,extended release 3 mg PO TID [place] DISEASE 04/15/23 [History Last Taken Unknown] dicyclomine 20 mg tablet 20 mg PO 4X/DAY IRRITABLE BOWELS 04/15/23 [History Last Taken Unknown] fexofenadine 180 mg tablet 180 mg PO DAILY ALLERGIES 04/15/23 [History Last Taken Unknown] hydrocodone-acetaminophen 5-325mg 5mg-325mg 1 tab PO BID PAIN 04/15/23 [History Last Taken Unknown] ondansetron 4 mg disintegrating tablet 4 mg PO TID PRN NAUSEA 04/15/23 [History Last Taken Unknown] potassium chloride 20 mEq tablet,extended release(part/cryst) 20 meq PO DAILY SUPPLEMENT 04/15/23 [History Last Taken Unknown] rifaximin 550 mg tablet (Xifaxan) 550 mg PO TID DIARRHEA 04/15/23 [History Last Taken Unknown] trazodone 150 mg tablet 150 mg PO DAILY SLEEP 04/15/23 [History Last Taken Unknown] Allergy/AdvReac Type Severity Reaction Status Date / Time Quinolones Allergy Unknown unknown Verified 04/15/23 17:52 aspirin Allergy Itching, Verified 04/15/23 17:52 Hives levofloxacin [From Levaquin] Allergy Hives, Verified 04/15/23 17:52 Itching Penicillins Allergy Hives, Verified 04/15/23 17:52 Itching Family History Mother CAD (coronary artery disease) Sister Diabetes Surgical History H/O cervical spine surgery H/O ventral hernia repair History of appendectomy History of coronary artery stent placement (10/16/18) History of laparoscopic cholecystectomy History of left heart catheterization (04/2016) Hx of repair of right rotator cuff (06/04/22) Social History household members: none housing: house current occupational status: disabled Smoking Status: Former smoker quit date: 02/14/15 how long ago did patient quit smokin years ago second hand exposure: Yes alcohol intake: former details: Quit 9 years ago substance use type: does not use caffeine: Yes Type: coffee what type of physical activity do you participate in: none seatbelt use: always do you feel safe at home: Yes ROS Constitutional Constitutional: Reports weakness; Denies anorexia, change in weight, chills, fatigue, fever(s), malaise, night sweats or other Eyes Eyes: Denies blurry vision, change in eye color, change in vision, discharge from eye(s), double vision, erythema, eye pain, loss of vision or other ENT HEENT: Denies abnormal hearing, dysphagia, ear pain, epistaxis, headache(s), hearing loss, nasal congestion, nasal discharge, post nasal drip, sinus pressure, sore throat or other Cardiovascular Cardiovascular: Reports chest pain, dyspnea on exertion and edema; Denies claudication, lightheadedness, orthopnea, palpitations, paroxysmal nocturnal dyspnea, rapid heart rate, syncope or other Respiratory/Chest Respiratory/Chest: Reports dyspnea, shortness of breath at rest and shortness of breath with exertion; Denies cough, excessive phlegm production, hemoptysis, productive cough, wheezing or other Gastrointestinal Gastrointestinal: Denies abdominal pain, coffee ground emesis, constipation, diarrhea, dyspepsia, hematemesis, hematochezia, loose stools, melena, nausea, vomiting or other Genitourinary Genitourinary: Reports difficulty urinating, nocturia and urinary hesitancy; Denies burning urination, dysuria, hematuria, urinary frequency, urinary incontinence, urinary urgency or other Musculoskeletal Musculoskeletal: Reports back pain, joint pain and joint stiffness; Denies arthralgias, joint swelling, myalgias, neck pain or other Neurologic Neurologic: Denies abnormal gait, abnormal speech, confusion, disequilibrium, dizziness, focal weakness, headache(s), numbness, paresthesias, seizure-like activity, seizures, syncope, tingling, tremor(s) or other Psychiatric Psychiatric: Reports anxiety and depression; Denies homicidal ideation, suicidal ideation or other Endocrine Endocrinology: Denies change in body appearance, cold intolerance, excessive sweating, heat intolerance, polydipsia, polyuria or other Hematologic/Lymphatic Hematologic/Lymphatic: Denies anemia, easy bleeding, easy bruising, lymphadenopathy or other Allergic/Immunologic Allergic/Immunologic: Denies rhinitis, hives, eczemia, asthma or other Vital Signs Vital Signs Vital Signs: 04/15/23 13:56 04/15/23 15:50 04/15/23 17:54 Temperature 98.2 F Temperature Source Temporal Pulse Rate 70 Respiratory Rate 20 H Respiratory Effort Respiratory Depth Respiratory Pattern Blood Pressure 151/77 H Blood Pressure Mean 101 Pulse Ox 100 98 100 Oxygen Delivery Method Room Air Room Air Room Air 04/15/23 17:54 04/15/23 17:54 04/15/23 17:56 Temperature Temperature Source Pulse Rate 71 Respiratory Rate 22 H Respiratory Effort Short of Breath Labored Respiratory Depth Normal Respiratory Pattern Blood Pressure 164/79 H Blood Pressure Mean 107 Pulse Ox 100 100 Oxygen Delivery Method Room Air Room Air 04/15/23 18:13 04/15/23 19:11 04/15/23 21:26 Temperature Temperature Source Pulse Rate 65 68 67 Respiratory Rate 20 H 22 H 20 H Respiratory Effort Respiratory Depth Respiratory Pattern Normal Blood Pressure 145/94 H 168/87 H Blood Pressure Mean 111 114 Pulse Ox 100 100 Oxygen Delivery Method Room Air Weight Weight: 82.645 kg Body Mass Index (BMI) 24.7 Physical Exam Const alert, oriented x3, no apparent distress, average body habitus and well nourished Constitutional Narrative: Anxious, older, white male, sitting up in bed, appears older than stated age, anxious but nontoxic, mild tachypnea on conversation however sats 100% during my conversation with him on room air General Appearance: cooperative HEENT normocephalic, head/scalp atraumatic and moist oral mucous membranes; Negative for hearing grossly normal bilaterally HEENT Narrative: Mild hearing loss, dentition is poor, Mallampati is 2, no thrush Eyes PERRL, EOMs intact bilaterally and conjunctivae normal Eyes Narrative: No scleral icterus Neck no lymphadenopathy and supple Neck Narrative: Trachea midline, no thyroid enlargement Resp no retractions, no use of accessory muscles and clear to auscultation bilaterally Resp Narrative: Mild tachypnea with conversation however patient is somewhat anxious and it seems that this may be contributing, diffusely diminished but clear Auscultation: Negative for rales, rhonchi or wheezes Cardio regular rate, regular rhythm, S1 normal heart sound, S2 normal heart sound, no murmurs, no rub, no gallops and no clicks GI normal to inspection, nondistended, normoactive bowel sounds, soft to palpation and non-tender Extremity no clubbing, cyanosis or edema Extremity Narrative: Pedal pulses are 2+ Neuro oriented x3, moves all extremities and no focal motor deficits Speech: speech normal Psych affect normal Mood & Affect: anxious Results Lab / Micro Data Attestation: I reviewed the patient's lab results. 04/15/23 13:45 04/15/23 13:45 Labs: Laboratory Results - last 24 hr 04/15/23 13:45: WBC 14.3 H, RBC 4.77, Hgb 13.0, Hct 42.3, MCV 88.7, MCH 27.3, MCHC 30.7 L, RDW Std Deviation 48.2 H, RDW Coeff of Tad 14.9 H, Plt Count 277, MPV 10.0, Immature Gran % (Auto) 1.500 H, Neut % (Auto) 79.4 H, Lymph % (Auto) 13.0 L, [place] % (Auto) 5.6, Eos % (Auto) 0.1, Baso % (Auto) 0.4, Absolute Neuts (auto) 11.4 H, Absolute Lymphs (auto) 1.86, Nucleated RBC % 0, Sodium 143, Potassium 3.8, Chloride 109 H, Carbon Dioxide 28.0, Anion Gap 6, BUN 18, Creatinine 1.30, Estim Creat Clear Calc 53.89, Est GFR (MDRD) Af Amer 69, Est GFR (MDRD) Non-Af 57 L, BUN/Creatinine Ratio 13.8, Glucose 120 H, Calcium 9.7, B-Natriuretic Peptide 33.9 04/15/23 18:19: D-Dimer Quant (PE/DVT) 1.31 H*, Troponin I High Sens 14 Micro: Microbiology 04/15/23 18:09 Mucosa - Nasopharyngeal SARS-CoV-2, Influenza & RSV (PCR) - Final Imaging Radiology Impression Chest X-Ray 04/15/23 14:02 IMPRESSION: Hyperinflation. Prominence of the pulmonary artery suggestive of possible pulmonary arterial hypertension. Electronically Signed: Jimmy Mathew MD at 14:36 EST , Chest CTA 04/15/23 18:54 IMPRESSION: Right pulmonary embolism. No arterial dissection. Electronically Signed: Jose Luis Clemens DO at 20:05 EST , ADDENDUM: 04/15/232014 IMPRESSION: Right pulmonary embolism. No arterial dissection. N.B. : The above Results were Read Back by Jose Luis Clemens DO to Julien Devine NP, and understanding confirmed on 04/15/2023 20:08:33 (ET). Electronically Signed: Jose Luis Clemens DO at 20:05 EST , ADDENDUM: 04/15/232029 IMPRESSION: Right pulmonary embolism. No arterial dissection. N.B. : The above Results were Read Back by Jose Luis Clemens DO to Julien Devine NP, and understanding confirmed on 04/15/2023 20:23:57 (ET). Electronically Signed: Jose Luis Clemens DO at 20:05 EST , Assessment & Plan Assessment/Plan (1) Pulmonary embolism: (2) Acute dyspnea: (3) Generalized weakness: (4) Debility: PLAN: Plan Acute pulmonary embolism -This is not the reason for admission as the patient is on room air with oxygen saturations at 100%, troponin and BNP were normal and there are no signs of RV strain on his echocardiogram -Start Eliquis 10 mg p.o. twice daily x 7 days then start Eliquis 5 mg p.o. twice daily indefinitely -Check lower extremity ultrasounds as patient has been complaining of swelling and tightness in his calves bilaterally -Patient is asking that we consult his manager process is Dr. Phillips is the one who told him to come in -Consult placed Acute dyspnea -Secondary to the above -Sats are 100% on room air at rest -Check ambulatory pulse ox prior to discharge Pleuritic chest pain -As needed Tylenol -As needed oxycodone -Secondary to the above Generalized weakness/debility/falls -Patient uses a cane predominantly to walk but does have a walker at home -Suspect that he may need a walker more consistently -PT/OT consultation -Case management/social work consultation -May need home health or placement Leukocytosis -Suspect reactive related to the above -Repeat in a.m. -No signs of infection Moderate persistent asthma/COPD stage II -Continue home inhalers -Pulmonary medicine consult at the request of the patient -Stable on room air -No wheezing on exam CAD/HTN/HPL -Continue home Plavix -Continue home atorvastatin -Continue home fenofibrate -Hold Vascepa as it is nonformulary -Continue home losartan BPH with obstruction -Continue home Flomax Restless leg syndrome -Continue home Requip Chronic diarrhea -Continue home rifaximin Crohn's disease/IBS -Continue home budesonide -Continue home Bentyl foods -Continue outpatient follow-up GERD -Continue home PPI Mild cognitive impairment -Continue home donepezil Mood disorder NOS -Continue home aripiprazole -Continue home Zyprexa -Continue home trazodone Chronic pain -Continue home baclofen -Hold home [place] as we are giving acetaminophen and oxycodone while hospitalized Chronic allergies -Continue home fexofenadine DVT prophylaxis -Patient on full anticoagulation for newly diagnosed PE CODE STATUS -Full code is verified at admission Charges/Coding Visit Charges Inpatient E&M: 37299 Init Hosp L2
[2023-04-15] MEDS: APIXABAN 5 MG TABLET 10 MG PO (21:58)
[2023-04-15 23:50] VITALS: BMI 24.2
--- NOTE | 2023-04-15 23:50 | VDLE_ITS ---
Reason For Study: Pulmonary embolism RIGHT LEFT GSV is normal. GSV is normal. CFV is compressible, spontaneous, phasic, CFV is compressible, spontaneous, phasic, competent and demonstrates normal competent, and demonstrates normal augmentation. augmentation. Acute deep vein thrombosis is noted in the FV is compressible, spontaneous, phasic, right FV prox. It is NONCOMPRESSIBLE and 3.97 competent and demonstrates normal cm from junction with CFV. augmentation. Remaining FV is compressible with normal POP V is compressible, spontaneous, phasic, venous flow. competent and demonstrates normal POP V is compressible, spontaneous, phasic, augmentation. competent and demonstrates normal T/P Trunk is compressible. augmentation. PTV is compressible. T/P Trunk is compressible. LT PerV is compressible. PTV is compressible. RT PerV is compressible. Procedure This is a venous duplex using B-mode, color flow and spectral Doppler. Exam performed portable in ICU/CCU. A preliminary report was called and/or faxed to [facility]. VL/Venous Duplex US - Sarkis Extrem Interpretation Summary Acute deep vein thrombosis is noted in the right femoral vein. Deep veins of the left lower extremity are patent and compressible segmentally. There is no evidence of left lower extremity deep vein thrombosis. The bilateral great saphenous vei ns appear patent and compressible segmentally. Ordering Physician: Anette Burrell Referring Physician: Eliel Mosley Performed By: Glory Hoang RVT
[2023-04-16] VITALS (9 sets, daily range): BP systolic 114–153; BP diastolic 57–85; PULSE 64–80; RESP 16–24; TEMP 36.3–36.6; O2SAT 96–100
[2023-04-16] MEDS: OLANZapine 10 MG Tablet PO (00:39)
[2023-04-16] MEDS: Atorvastatin Calcium 40 MG Tablet PO (00:40)
[2023-04-16] MEDS: rifAXIMin 550 MG Tablet PO ×3 (00:40→13:31)
[2023-04-16] MEDS: Losartan Potassium 25 MG Tablet PO ×2 (00:40→10:34)
[2023-04-16] MEDS: Tamsulosin HCl 0.4 MG Capsule 0.400000000000000022 MG PO (00:40)
[2023-04-16] MEDS: Baclofen 10 MG Tablet PO ×3 (00:40→13:31)
[2023-04-16] MEDS: Budesonide 3 MG CAPSULE.EC PO ×3 (00:41→13:31)
[2023-04-16] MEDS: APIXABAN 5 MG TABLET 10 MG PO ×2 (00:41→10:35)
[2023-04-16] MEDS: Dicyclomine 10 MG Capsule 20 MG PO ×3 (00:44→13:31)
[2023-04-16] MEDS: Pramipexole Di-HCl 0.25 MG Tablet PO (00:48)
[2023-04-16] MEDS: 0.9% Saline Lock 10 ML Syringe IV (05:43)
[2023-04-16 05:52] LABS: Absolute Lymphocyte Count 1.29 X10^3/uL (0.83-4.51); Absolute Neutrophil Count 9.8 X10^3/uL (2.0-7.7); Basophil# 0.01 X10^3/uL; Basophil% 0.1 % (0-1); Hematocrit 36.3 % (40-54); Hemoglobin 11.5 g/dL (13.0-16.5); Lymphocyte # 1.29 X10^3/ul (0.83-4.51); Lymphocyte % 11.2 % (19-41); Mean Corp Hgb Conc 31.7 g/dL (32-36); Mean Corpuscular Hgb 27.4 pg (27.0-32.0); Mean Corpuscular Volume 86.4 fL (80-94); Mean Platelet Vol. 9.4 fl (6.2-12.0); Monocyte# 0.34 X10^3/uL; NRBC Flagged by Analyzer 0 % (0-5); Neutrophil # 9.75 X10^3/uL (2.7-7.7); Neutrophil % 84.6 % (47-70); Platelet Count 248 K/mm3 (150-450); White Blood Count 11.5 K/mm3 (4.4-11.0)
[2023-04-16] MEDS: Budesonide Respules 0.5 MG/2 ML AMPUL.NEB. INHALATION (06:30)
[2023-04-16] MEDS: Ipratropium/Albuterol Sulfate 3 ML AMPUL.NEB INHALATION ×2 (06:30→12:39)
--- NOTE | 2023-04-16 06:59 | PN.HOSP_ITS ---
Subjective Subjective Feels well. Breathing well. States that he has falls several times per year. States that he gets dizzy at times and then falls. Does not lose consciousness. Objective Data Objective Data Vital Signs: Vital Signs Temp Pulse Resp BP Pulse Ox O2 Del Method 36.5 C L 78 18 128/72 H 97 Room Air 04/16/23 05:48 04/16/23 06:31 04/16/23 06:31 04/16/23 05:48 04/16/23 06:31 04/16/23 06:31 Oxygen Delivery Method Room Air Weight: 80.9 kg Body Mass Index (BMI) 24.2 Intake & Output: Intake and Output for Last 24 Hours 04/14/23 04/15/23 04/16/23 23:59 23:59 23:59 Intake Total 150 / 150 Balance 150 / 150 Lab / Micro Data 04/16/23 05:40 04/15/23 13:45 Labs: Laboratory Results - last 24 hr 04/15/23 13:45: WBC 14.3 H, RBC 4.77, Hgb 13.0, Hct 42.3, MCV 88.7, MCH 27.3, MCHC 30.7 L, RDW Std Deviation 48.2 H, RDW Coeff of Tad 14.9 H, Plt Count 277, MPV 10.0, Immature Gran % (Auto) 1.500 H, Neut % (Auto) 79.4 H, Lymph % (Auto) 13.0 L, [place] % (Auto) 5.6, Eos % (Auto) 0.1, Baso % (Auto) 0.4, Absolute Neuts (auto) 11.4 H, Absolute Lymphs (auto) 1.86, Nucleated RBC % 0, Sodium 143, Potassium 3.8, Chloride 109 H, Carbon Dioxide 28.0, Anion Gap 6, BUN 18, Creatinine 1.30, Estim Creat Clear Calc 53.89, Est GFR (MDRD) Af Amer 69, Est GFR (MDRD) Non-Af 57 L, BUN/Creatinine Ratio 13.8, Glucose 120 H, Calcium 9.7, B-Natriuretic Peptide 33.9 04/15/23 18:19: D-Dimer Quant (PE/DVT) 1.31 H*, Troponin I High Sens 14 04/16/23 05:40: WBC 11.5 H, RBC 4.20 L, Hgb 11.5 L, Hct 36.3 L, MCV 86.4, MCH 27.4, MCHC 31.7 L, RDW Std Deviation 47.0 H, RDW Coeff of Tad 15.0 H, Plt Count 248, MPV 9.4, Immature Gran % (Auto) 1.100 H, Neut % (Auto) 84.6 H, Lymph % (Auto) 11.2 L, [place] % (Auto) 3.0, Eos % (Auto) 0.0, Baso % (Auto) 0.1, Absolute Neuts (auto) 9.8 H, Absolute Lymphs (auto) 1.29, Nucleated RBC % 0 Micro: Microbiology 04/15/23 18:09 Mucosa - Nasopharyngeal SARS-CoV-2, Influenza & RSV (PCR) - Final Radiography Diagnostic Testing: Radiology Impression Chest X-Ray 04/15/23 14:02 IMPRESSION: Hyperinflation. Prominence of the pulmonary artery suggestive of possible pulmonary arterial hypertension. Electronically Signed: Jimmy Mathew MD at 14:36 EST , Chest CTA 04/15/23 18:54 IMPRESSION: Right pulmonary embolism. No arterial dissection. Electronically Signed: Jose Luis Clemens DO at 20:05 EST , ADDENDUM: 04/15/232014 IMPRESSION: Right pulmonary embolism. No arterial dissection. N.B. : The above Results were Read Back by Jose Luis Clemens DO to Julien Devine NP, and understanding confirmed on 04/15/2023 20:08:33 (ET). Electronically Signed: Jose Luis Clemens DO at 20:05 EST , ADDENDUM: 04/15/232029 IMPRESSION: Right pulmonary embolism. No arterial dissection. N.B. : The above Results were Read Back by Jose Luis Clemens DO to Julien Devine NP, and understanding confirmed on 04/15/2023 20:23:57 (ET). Electronically Signed: Jose Luis Clemens DO at 20:05 EST , Physical Exam Const alert and no apparent distress Resp normal respiratory effort, no retractions, no use of accessory muscles and clear to auscultation bilaterally Cardio regular rate, regular rhythm, S1 normal heart sound and S2 normal heart sound Assessment & Plan Assessment/Plan (1) Pulmonary embolism: (2) Debility: PLAN: Plan Acute pulmonary embolism * stable on room air. * Start Eliquis 10 mg p.o. twice daily x 7 days then start Eliquis 5 mg p.o. twice daily indefinitely * duplex ordered. if positive, will not change mgmt. Debility: * PT OT. Patient was standby assist. Patient will not require any acute skilled needs at this time. Patient does have a history of falls says it can occur intermittently. Is unclear if this is benign paroxysmal positional vertigo or if this may be a component of orthostasis. Patient advised to get up slowly to go when he gets up in the morning to help mitigate this risk in the future. Patient is already involved with physical therapy at [facility] and will continue with that. Chronic conditions: * Moderate persistent asthma/COPD stage II: Pulmonary medicine consult at the request of the patient * CAD: continue clopidogrel, atorvastatin * HTNL losartan * HPL: atorvastatin * BPH with obstruction: tamsulosin * Restless leg syndrome-Continue home Requip * Chronic diarrhea-Continue home rifaximin * Crohn's disease/IBS-Continue home budesonide-Continue home Bentyl foods- Continue outpatient follow-up * GERD-Continue home PPI * Mild cognitive impairment-Continue home donepezil * Mood disorder NOS-Continue home aripiprazole-Continue home Zyprexa-Continue home trazodone * Chronic pain-Continue home baclofen-Hold home [place] as we are giving acetaminophen and oxycodone while hospitalized * Chronic allergies-Continue home fexofenadine DVT prophylaxis: not indicated as pt is anticoagulated CODE STATUS: full.
--- NOTE | 2023-04-16 07:25 | EX.PCM.CONCC ---
Assessment & Plan Assessment/Plan (1) Pulmonary embolism: (2) Generalized weakness: (3) Stage 2 moderate COPD by GOLD classification: (4) MONIQUE (obstructive sleep apnea): (5) Asthma: QUALIFIERS: Asthma severity: moderate Asthma complication type: with acute exacerbation Asthma persistence: persistent Qualified Code(s): J45.41 - Moderate persistent asthma with (acute) exacerbation PLAN: Plan RECOMMENDATIONS: 1. Continue systemic anticoagulation with 10 a inhibitor for least 3 months 2. Walking oximetry 3. Potential discharge today if ambulates without supplemental oxygen 4. Okay to resume baseline pulmonary regimen on discharge 5. Follow-up with nurse practitioner in office as previously scheduled (has routine follow-up later this month) IMPRESSIONS: 1. Acute pulmonary embolism in the setting of COPD/asthma overlap syndrome Patient appears to be responding well to therapy. Patient does not have any signs or symptoms of exacerbation of underlying obstructive lung disease at this time. Do not believe patient requires any antibiotics or steroids. Patient has been tolerating 10 a inhibitor as well. Okay to use what ever 10 a inhibitor is cost effective with his insurance. Patient can have a walking oximetry today. If patient is able to ambulate without supplemental oxygen, okay to discharge from a pulmonary perspective. Patient does have an outpatient routine appointment later this month with [facility] and this would likely be sufficient. Patient should resume baseline respiratory medications. 2. Debility/advanced age/noncompliant MONIQUE/history of tobacco abuse Complicates care, management, recovery and prognosis. Okay to resume baseline medications from my perspective. Patient does not appear to be acutely volume overloaded and likely does not require an echocardiogram in my perspective. Patient may require short pulse with physical therapy, but would defer to rehab on timing. HPI Consult Data Date of Consult: 04/16/23 HPI Narrative Reason for Consultation: Pulmonary embolism HPI Narrative: LILLIAN GUERRERO is a 73 M, with past medical history listed below and well-known to me from the outpatient office, who presents to [facility] on 04/15/2023 secondary to 2 days of progressive shortness of breath. Patient states that he has full body pain , chest pain that radiates to his left arm and back and was brought here by an ambulance. Patient does use marijuana intermittently, but is treated for COPD/overlap syndrome by myself. Patient was recently hospitalized in January, but states that this feels different. In the ER, patient was afebrile, but tachypneic at 20 breaths/min. Patient also noted to be hypertensive at 164/79, but saturating well on room air. Laboratory workup showed a white blood cell count of 14.3, hemoglobin of 13 and platelets of 277. Patient did have an elevated D-dimer and a negative troponin. Chemistries show an elevated bicarbonate of 28, but otherwise were unremarkable. Chest x-ray showed hyperinflation, but a subsequent CTA of the chest showed a right pulmonary embolism without dissection. Patient got up from moving around and felt significantly weak, so was brought in for observation. Patient did receive 60 mg of methylprednisolone in the ER along with IV morphine and Zofran. Patient was placed on anticoagulation and admitted to the floor for further evaluation. Since being admitted to the hospital, patient subjectively feels improved compared to previous. Patient is not reporting any bleeding complications at this time. Patient states he is still having some intermittent chest pains, but feels that these have improved. Patient has not reported any change in cough character, consistency or color of production. Patient states he has been compliant with his home Breztri. Patient does have a cardiovascular history, but states he has been compliant with his Plavix. Review of systems otherwise negative from a constitutional, HEENT, respiratory, cardiovascular, GI, genitourinary, musculoskeletal, skin, neurologic, psychiatric and hematologic system unless stated above. [facility] Medical History Alcohol use Ambulates with cane Anxiety Arthritis Asthma Atherosclerotic heart disease of [place] coronary artery without angina pectoris Back pain Bipolar disorder BPH (benign prostatic hyperplasia) Brachial neuritis (05/31/11) Cannabis dependence Cardiology follow-up encounter Cervical radiculitis Cervical spondylosis Chest pain Chest tightness Chronic obstructive lung disease (08/02/20) Chronic pain Congestive heart failure (CHF) COPD (chronic obstructive pulmonary disease) CPAP (continuous positive airway pressure) dependence DDD (degenerative disc disease) Dementia Dementia Depression Diabetes Dietary restriction Displacement of lumbar intervertebral disc without myelopathy (03/01/11) Dyspnea on exertion Emphysema, unspecified Essential (primary) hypertension Essential hypertension (08/02/20) Fatigue Former smoker GERD (gastroesophageal reflux disease) High cholesterol History of CHF (congestive heart failure) History of echocardiogram History of IBS History of irregular heartbeat History of pain when walking History of pulmonary embolism History of stress test Hyperlipidemia Hypertension Kidney disease Low back pain (03/01/11) Lung nodule < 6cm on CT Malaise and fatigue (08/02/20) Marijuana use Migraines Myocardial infarct Neck pain (03/01/11) Neck sprain (03/01/11) MONIQUE (obstructive sleep apnea) Pain of left knee and lower leg Partial tear of right rotator cuff Peptic ulcer disease Pleurisy Prostate disease PVCs (premature ventricular contractions) Restless leg syndrome Rheumatoid arthritis Schizophrenia Shortness of breath on exertion Sleep apnea Smoking greater than 40 pack years Stage 2 moderate COPD by GOLD classification Syncope and collapse Trigger finger Wears glasses Wheezing Home Medications ropinirole 0.5 mg tablet 0.5 mg PO QHS RESTLESS LEGS 04/23/16 [History Last Taken 07/29/19] tamsulosin 0.4 mg capsule 0.4 mg PO QHS PROSTATE 01/30/17 [History Last Taken 07/29/19] omeprazole 40 mg capsule,delayed release 40 mg PO DAILY GERD 07/30/19 [History Last Taken 07/30/19] aripiprazole 10 mg tablet (Abilify) 10 mg PO DAILY ANXIETY 11/09/20 [History Last Taken Unknown] baclofen 10 mg tablet 10 mg PO TID PAIN 11/09/20 [History Last Taken Unknown] icosapent ethyl 1 gram capsule (Vascepa) 2 g PO BID HEART 11/09/20 [History Last Taken Unknown] potassium chloride 10 mEq tablet,extended release(part/cryst) 10 meq PO DAILY SUPPLEMENT 09/28/21 [History Last Taken Unknown] nitroglycerin 0.4 mg sublingual tablet (Nitrostat) 0.4 mg sublingual Q5-15M PRN chest pain #25 tabs 10/12/21 [Rx Last Taken Unknown] donepezil 10 mg tablet 10 mg PO DAILY ALZHEIMERS 10/23/21 [History Last Taken Unknown] lamotrigine 200 mg tablet (Lamictal) 200 mg PO DAILY MOOD 10/23/21 [History Last Taken Unknown] olanzapine 10 mg tablet (Zyprexa) 10 mg PO QHS MOOD 10/23/21 [History Last Taken Unknown] albuterol sulfate 90 mcg/actuation aerosol inhaler 2 puff inhalation Q6H PRN PRN Shortness Of Breath #8.5 grams 12/24/21 [Rx Last Taken 02/05/22] acetaminophen 500 mg tablet 1,000 mg PO Q6H PRN PRN Pain 05/28/22 [History Last Taken Unknown] losartan 25 mg tablet 25 mg PO BID BLOOD PRESSURE 05/28/22 [History Last Taken Unknown] atorvastatin 40 mg tablet 40 mg PO QHS CHOLESTEROL #90 tabs 07/25/22 [Rx Last Taken Unknown] fenofibrate 54 mg tablet 54 mg PO DAILY CHOLESTEROL #90 tabs 09/13/22 [Rx Last Taken Unknown] albuterol sulfate 2.5 mg/3 mL (0.083 %) solution for nebulization 2.5 mg (3 mL) inhalation Q8H PRN PRN shortness of breath or wheezing #180 mL 11/05/22 [Rx Last Taken Unknown] clopidogrel 75 mg tablet 75 mg PO DAILY BLOOD THINNER #30 tabs 01/03/23 [Rx Last Taken Unknown] budesonide 160 mcg-glycopyr 9 mcg-formot 4.8 mcg/actuation HFA inhaler (Breztri Aerosphere) 2 inh inhalation BID COPD #10.7 grams 01/28/23 [Rx Last Taken Unknown] Lactobacillus acidophilus 75 million cell-pectin 100 mg capsule (Acidophilus-Pectin) 1 cap PO DAILY GUT HEALTH 04/15/23 [History Last Taken Unknown] budesonide 3 mg capsule,delayed,extended release 3 mg PO TID CROHNS DISEASE 04/15/23 [History Last Taken Unknown] dicyclomine 20 mg tablet 20 mg PO 4X/DAY IRRITABLE BOWELS 04/15/23 [History Last Taken Unknown] fexofenadine 180 mg tablet 180 mg PO DAILY ALLERGIES 04/15/23 [History Last Taken Unknown] hydrocodone-acetaminophen 5-325mg 5mg-325mg 1 tab PO BID PAIN 04/15/23 [History Last Taken Unknown] ondansetron 4 mg disintegrating tablet 4 mg PO TID PRN NAUSEA 04/15/23 [History Last Taken Unknown] potassium chloride 20 mEq tablet,extended release(part/cryst) 20 meq PO DAILY SUPPLEMENT 04/15/23 [History Last Taken Unknown] rifaximin 550 mg tablet (Xifaxan) 550 mg PO TID DIARRHEA 04/15/23 [History Last Taken Unknown] trazodone 150 mg tablet 150 mg PO DAILY SLEEP 04/15/23 [History Last Taken Unknown] Allergy/AdvReac Type Severity Reaction Status Date / Time Quinolones Allergy Unknown unknown Verified 04/15/23 17:52 aspirin Allergy Itching, Verified 04/15/23 17:52 Hives levofloxacin [From Levaquin] Allergy Hives, Verified 04/15/23 17:52 Itching Penicillins Allergy Hives, Verified 04/15/23 17:52 Itching Family History Mother CAD (coronary artery disease) Sister Diabetes Surgical History H/O cervical spine surgery H/O ventral hernia repair History of appendectomy History of coronary artery stent placement (10/16/18) History of laparoscopic cholecystectomy History of left heart catheterization (04/2016) Hx of repair of right rotator cuff (06/04/22) Social History household members: none housing: house current occupational status: disabled Smoking Status: Former smoker quit date: 02/14/15 how long ago did patient quit smokin years ago second hand exposure: Yes alcohol intake: former details: Quit 9 years ago substance use type: does not use caffeine: Yes Type: coffee what type of physical activity do you participate in: none seatbelt use: always do you feel safe at home: Yes ROS ROS Narrative See HPI Physical Exam Const alert, oriented x3 and no apparent distress Constitutional Narrative: No conversational dyspnea noted General Appearance: cooperative HEENT normocephalic, head/scalp atraumatic and moist oral mucous membranes HEENT Narrative: Mild hearing loss, dentition is poor, Mallampati is 2, no thrush noted Eyes PERRL, EOMs intact bilaterally and conjunctivae normal Eyes Narrative: No scleral icterus Neck no lymphadenopathy and supple Chest inspection of chest normal Resp no retractions, no use of accessory muscles and clear to auscultation bilaterally Resp Narrative: Slightly diminished, but appears to be at baseline Auscultation: Negative for rales, rhonchi or wheezes Cardio regular rate, regular rhythm, S1 normal heart sound, S2 normal heart sound, no murmurs, no rub, no gallops and no clicks GI normal to inspection, nondistended, normoactive bowel sounds Extremity no clubbing, cyanosis or edema Neuro oriented x3, moves all extremities and no focal motor deficits Speech: speech normal Psych affect normal Mood & Affect: anxious Medical Records Data Attestation: I reviewed the patient's medical records Lab / Micro Data Attestation: I reviewed the patient's lab results. 04/16/23 05:40 04/15/23 13:45 Labs: Laboratory Results - last 24 hr 04/15/23 13:45: WBC 14.3 H, RBC 4.77, Hgb 13.0, Hct 42.3, MCV 88.7, MCH 27.3, MCHC 30.7 L, RDW Std Deviation 48.2 H, RDW Coeff of Tad 14.9 H, Plt Count 277, MPV 10.0, Immature Gran % (Auto) 1.500 H, Neut % (Auto) 79.4 H, Lymph % (Auto) 13.0 L, [facility] % (Auto) 5.6, Eos % (Auto) 0.1, Baso % (Auto) 0.4, Absolute Neuts (auto) 11.4 H, Absolute Lymphs (auto) 1.86, Nucleated RBC % 0, Sodium 143, Potassium 3.8, Chloride 109 H, Carbon Dioxide 28.0, Anion Gap 6, BUN 18, Creatinine 1.30, Estim Creat Clear Calc 53.89, Est GFR (MDRD) Af Amer 69, Est GFR (MDRD) Non-Af 57 L, BUN/Creatinine Ratio 13.8, Glucose 120 H, Calcium 9.7, B-Natriuretic Peptide 33.9 04/15/23 18:19: D-Dimer Quant (PE/DVT) 1.31 H*, Troponin I High Sens 14 04/16/23 05:40: WBC 11.5 H, RBC 4.20 L, Hgb 11.5 L, Hct 36.3 L, MCV 86.4, MCH 27.4, MCHC 31.7 L, RDW Std Deviation 47.0 H, RDW Coeff of Tad 15.0 H, Plt Count 248, MPV 9.4, Immature Gran % (Auto) 1.100 H, Neut % (Auto) 84.6 H, Lymph % (Auto) 11.2 L, [facility] % (Auto) 3.0, Eos % (Auto) 0.0, Baso % (Auto) 0.1, Absolute Neuts (auto) 9.8 H, Absolute Lymphs (auto) 1.29, Nucleated RBC % 0 Micro: Microbiology 04/15/23 18:09 Mucosa - Nasopharyngeal SARS-CoV-2, Influenza & RSV (PCR) - Final Imaging Radiology Impression Chest X-Ray 04/15/23 14:02 IMPRESSION: Hyperinflation. Prominence of the pulmonary artery suggestive of possible pulmonary arterial hypertension. Electronically Signed: Jimmy Mathew MD at 14:36 EST , Chest CTA 04/15/23 18:54 IMPRESSION: Right pulmonary embolism. No arterial dissection. Electronically Signed: Jose Luis Clemens DO at 20:05 EST , ADDENDUM: 04/15/232014 IMPRESSION: Right pulmonary embolism. No arterial dissection. N.B. : The above Results were Read Back by Jose Luis Clemens DO to Julien Devine NP, and understanding confirmed on 04/15/2023 20:08:33 (ET). Electronically Signed: Jose Luis Clemens DO at 20:05 EST , ADDENDUM: 04/15/232029 IMPRESSION: Right pulmonary embolism. No arterial dissection. N.B. : The above Results were Read Back by Jose Luis Clemens DO to Julien Devine NP, and understanding confirmed on 04/15/2023 20:23:57 (ET). Electronically Signed: Jose Luis Clemens DO at 20:05 EST , Charges/Coding Visit Charges Inpatient E&M: 01269 Init Hosp L2
[2023-04-16] MEDS: ARIPiprazole 10 MG Tablet PO (10:33)
[2023-04-16] MEDS: Donepezil HCl 10 MG Tablet PO (10:33)
[2023-04-16] MEDS: traZODone 100 MG Tablet 150 MG PO (10:34)
[2023-04-16] MEDS: Pantoprazole Sodium 40 MG Tablet PO (10:35)
[2023-04-16] MEDS: Clopidogrel Bisulfate 75 MG Tablet PO (10:35)
[2023-04-16] MEDS: Fenofibrate 48 MG Tablet PO (10:36)
--- NOTE | 2023-04-16 11:44 | DS.PCM_ITS ---
Providers Date of Admission: 04/15/23 Primary Care Physician: GAURAV Walden Consultations 04/15/23 23:50 Consult: Pharmacy Billing Adjudicator / Pulmonary Medicine Routine Consulting Provider: Intensivists/Pulmonary Med Reason for Consult: PE-Pt request EMERGENT Consult: No MD Notified: Yes Date Notified: 04/15/23 Time Notified: 22:18 Method of Notification: Text Reason For Visit: DEBILITY & WEAKNESS WITH ACUTE PE Diagnosis Discharge Diagnosis (1) Pulmonary embolism: Status: Acute Code(s): I26.99 - Other pulmonary embolism without acute cor pulmonale (2) Debility: Status: Acute Code(s): R53.81 - Other malaise Plan Acute pulmonary embolism * stable on room air. * Start Eliquis 10 mg p.o. twice daily x 7 days then start Eliquis 5 mg p.o. twice daily indefinitely * duplex ordered. if positive, will not change mgmt. Debility: * PT OT. Patient was standby assist. Patient will not require any acute skilled needs at this time. Patient does have a history of falls says it can occur intermittently. Is unclear if this is benign paroxysmal positional vertigo or if this may be a component of orthostasis. Patient advised to get up slowly to go when he gets up in the morning to help mitigate this risk in the future. Patient is already involved with physical therapy at [facility] and will continue with that. Chronic conditions: * Moderate persistent asthma/COPD stage II: Pulmonary medicine consult at the request of the patient * CAD: continue clopidogrel, atorvastatin * HTNL losartan * HPL: atorvastatin * BPH with obstruction: tamsulosin * Restless leg syndrome-Continue home Requip * Chronic diarrhea-Continue home rifaximin * Crohn's disease/IBS-Continue home budesonide-Continue home [employer]- Continue outpatient follow-up * GERD-Continue home PPI * Mild cognitive impairment-Continue home donepezil * Mood disorder NOS-Continue home aripiprazole-Continue home Zyprexa-Continue home trazodone * Chronic pain-Continue home baclofen-Hold home [place] as we are giving acetaminophen and oxycodone while hospitalized * Chronic allergies-Continue home fexofenadine DVT prophylaxis: not indicated as pt is anticoagulated CODE STATUS: full. Medications at Discharge Home Medications ropinirole 0.5 mg tablet 0.5 mg PO QHS RESTLESS LEGS 04/23/16 tamsulosin 0.4 mg capsule 0.4 mg PO QHS PROSTATE 01/30/17 omeprazole 40 mg capsule,delayed release 40 mg PO DAILY GERD 07/30/19 aripiprazole 10 mg tablet (Abilify) 10 mg PO DAILY ANXIETY 11/09/20 baclofen 10 mg tablet 10 mg PO TID PAIN 11/09/20 icosapent ethyl 1 gram capsule (Vascepa) 2 g PO BID HEART 11/09/20 potassium chloride 10 mEq tablet,extended release(part/cryst) 10 meq PO DAILY SUPPLEMENT 09/28/21 nitroglycerin 0.4 mg sublingual tablet (Nitrostat) 0.4 mg sublingual Q5-15M PRN chest pain #25 tabs 10/12/21 donepezil 10 mg tablet 10 mg PO DAILY ALZHEIMERS 10/23/21 lamotrigine 200 mg tablet (Lamictal) 200 mg PO DAILY MOOD 10/23/21 olanzapine 10 mg tablet (Zyprexa) 10 mg PO QHS MOOD 10/23/21 albuterol sulfate 90 mcg/actuation aerosol inhaler 2 puff inhalation Q6H PRN PRN Shortness Of Breath #8.5 grams 12/24/21 acetaminophen 500 mg tablet 1,000 mg PO Q6H PRN PRN Pain 05/28/22 losartan 25 mg tablet 25 mg PO BID BLOOD PRESSURE 05/28/22 atorvastatin 40 mg tablet 40 mg PO QHS CHOLESTEROL #90 tabs 07/25/22 fenofibrate 54 mg tablet 54 mg PO DAILY CHOLESTEROL #90 tabs 09/13/22 albuterol sulfate 2.5 mg/3 mL (0.083 %) solution for nebulization 2.5 mg (3 mL) inhalation Q8H PRN PRN shortness of breath or wheezing #180 mL 11/05/22 clopidogrel 75 mg tablet 75 mg PO DAILY BLOOD THINNER #30 tabs 01/03/23 budesonide 160 mcg-glycopyr 9 mcg-formot 4.8 mcg/actuation HFA inhaler (Breztri Aerosphere) 2 inh inhalation BID COPD #10.7 grams 01/28/23 Lactobacillus acidophilus 75 million cell-pectin 100 mg capsule (Acidophilus- Pectin) 1 cap PO DAILY GUT HEALTH 04/15/23 budesonide 3 mg capsule,delayed,extended release 3 mg PO TID CROHNS DISEASE 04/15/23 dicyclomine 20 mg tablet 20 mg PO 4X/DAY IRRITABLE BOWELS 04/15/23 fexofenadine 180 mg tablet 180 mg PO DAILY ALLERGIES 04/15/23 hydrocodone-acetaminophen 5-325mg 5mg-325mg 1 tab PO BID PAIN 04/15/23 ondansetron 4 mg disintegrating tablet 4 mg PO TID PRN NAUSEA 04/15/23 potassium chloride 20 mEq tablet,extended release(part/cryst) 20 meq PO DAILY SUPPLEMENT 04/15/23 rifaximin 550 mg tablet (Xifaxan) 550 mg PO TID DIARRHEA 04/15/23 trazodone 150 mg tablet 150 mg PO DAILY SLEEP 04/15/23 apixaban 5 mg (74 tabs) tablets in a dose pack (Eliquis DVT-PE Treat 30D Start) 5 mg PO BID #74 tabs 04/16/23 Hospital Course Operations None Procedures None Summary of Care Provided Minutes Spent on Discharge: 32 Hospital Course: Patient presents with shortness of breath. Patient was found to have right pulmonary embolism. Patient was started on apixaban. Patient will continue with apixaban for at least next 6 months otherwise follow-up with hematology to see if he needs to be on long-term anticoagulation. Patient has no obvious risk factors that may have preceded this. Weight / BMI Weight Weight: 80.9 kg Body Mass Index (BMI) 24.2 ABG / Lab / Microbiology Data 04/16/23 05:40 04/15/23 13:45 Laboratory: Laboratory Results - last 24 hr 04/15/23 13:45: WBC 14.3 H, RBC 4.77, Hgb 13.0, Hct 42.3, MCV 88.7, MCH 27.3, MCHC 30.7 L, RDW Std Deviation 48.2 H, RDW Coeff of Tad 14.9 H, Plt Count 277, MPV 10.0, Immature Gran % (Auto) 1.500 H, Neut % (Auto) 79.4 H, Lymph % (Auto) 13.0 L, Nicol[place] % (Auto) 5.6, Eos % (Auto) 0.1, Baso % (Auto) 0.4, Absolute Neuts (auto) 11.4 H, Absolute Lymphs (auto) 1.86, Nucleated RBC % 0, Sodium 143, Potassium 3.8, Chloride 109 H, Carbon Dioxide 28.0, Anion Gap 6, BUN 18, Creatinine 1.30, Estim Creat Clear Calc 53.89, Est GFR (MDRD) Af Amer 69, Est GFR (MDRD) Non-Af 57 L, BUN/Creatinine Ratio 13.8, Glucose 120 H, Calcium 9.7, B-Natriuretic Peptide 33.9 04/15/23 18:19: D-Dimer Quant (PE/DVT) 1.31 H*, Troponin I High Sens 14 04/16/23 05:40: WBC 11.5 H, RBC 4.20 L, Hgb 11.5 L, Hct 36.3 L, MCV 86.4, MCH 27.4, MCHC 31.7 L, RDW Std Deviation 47.0 H, RDW Coeff of Tad 15.0 H, Plt Count 248, MPV 9.4, Immature Gran % (Auto) 1.100 H, Neut % (Auto) 84.6 H, Lymph % (Auto) 11.2 L, Nicollet % (Auto) 3.0, Eos % (Auto) 0.0, Baso % (Auto) 0.1, Absolute Neuts (auto) 9.8 H, Absolute Lymphs (auto) 1.29, Nucleated RBC % 0 Microbiology: Microbiology 04/15/23 18:09 Mucosa - Nasopharyngeal SARS-CoV-2, Influenza & RSV (PCR) - Final Radiography Diagnostic Testing: Radiology Impression Chest X-Ray 04/15/23 14:02 IMPRESSION: Hyperinflation. Prominence of the pulmonary artery suggestive of possible pulmonary arterial hypertension. Electronically Signed: Jimmy Mathew MD at 14:36 EST , Chest CTA 04/15/23 18:54 IMPRESSION: Right pulmonary embolism. No arterial dissection. Electronically Signed: Jose Luis Clemens DO at 20:05 EST , ADDENDUM: 04/15/232014 IMPRESSION: Right pulmonary embolism. No arterial dissection. N.B. : The above Results were Read Back by Jose Luis Clemens DO to Julien Devine NP, and understanding confirmed on 04/15/2023 20:08:33 (ET). Electronically Signed: Jose Luis Clemens DO at 20:05 EST , ADDENDUM: 04/15/232029 IMPRESSION: Right pulmonary embolism. No arterial dissection. N.B. : The above Results were Read Back by Jose Luis Clemens DO to Julien Devine NP, and understanding confirmed on 04/15/2023 20:23:57 (ET). Electronically Signed: Jose Luis Clemens DO at 20:05 EST , D/C Instructions Discharge Diet: No restrictions Meaningful Use Info Meaningful Use Diagnoses (Choose all that apply): VTE VTE Anticoag overlap given w/in hospital stay or rx'd at dc?: No Pt receive overlap for 5 days?: No Reason overlap not ordered, prescribed, or given for 5 days: Treatment Not Indicated Discharge Plan Admission Admit Date/Time: 04/15/23 21:31 Primary Reason for Your Visit: Pulmonary embolism Attending Provider: Min Braden Primary Care Provider: Eliel Mosley [facility] Consulting Providers: Jemal Oscar; Jose F Phillips; Fabrizio Bishop; Jn Greer; Shelley Soni; Carlos Wright; Yolis Sorensen; Jose Nation; Hussein Delarosa; Phuc Ann; Mio Courtney; Jadon Renteria; Anette Burrell Instructions Additional Instructions / Restrictions: He had a blood clot in your lung. You will need to be on blood thinners for least neck 6 months with Eliquis, also known as apixaban. Would recommend that you follow-up with feed mixer helper see if you need to be on that longer such as if you have a condition that would make you at risk for having another blood clot in the future if you are not on anticoagulation. He also said that you fall somewhat frequently and have some hard falls at times. Do advise that you get up slowly. When you wake up in the morning. Continue to follow-up with physical therapy as you have already been scheduled previously. Discharge Orders/Prescriptions Prescriptions: Douglas Brown DVT-PE Treat 30D Start 5 mg (74 tabs) tablets,dose pack 5 mg PO BID Qty: 74 0RF Rx Instructions: 2 tablets twice daily for 6 days and then 1 tablet twice daily Continued aripiprazole [Abilify] 10 mg tablet 10 mg PO DAILY icosapent ethyl [Vascepa] 1 gram capsule 2 g PO BID baclofen 10 mg tablet 10 mg PO TID olanzapine [Zyprexa] 10 mg tablet 10 mg PO QHS donepezil 10 mg tablet 10 mg PO DAILY lamotrigine [Lamictal] 200 mg tablet 200 mg PO DAILY potassium chloride 10 mEq tablet,ER particles/crystals 10 meq PO DAILY Breztri Aerosphere 160-9-4.8 mcg/actuation HFA aerosol inhaler 2 inh inhalation BID Qty: 10.7 11RF ropinirole 0.5 MG tablet 0.5 mg PO QHS tamsulosin 0.4 MG capsule,extended release 24hr 0.4 mg PO QHS omeprazole 40 MG capsule,delayed release(DR/EC) 40 mg PO DAILY acetaminophen 500 mg tablet 1,000 mg PO Q6H PRN PRN (Reason: Pain) losartan 25 mg tablet 25 mg PO BID hydrocodone-acetaminophen 5-325 mg tablet 1 tab PO BID Acidophilus-Pectin 75 million cell -100 mg capsule 1 cap PO DAILY fexofenadine 180 mg tablet 180 mg PO DAILY dicyclomine 20 mg tablet 20 mg PO 4X/DAY budesonide 3 mg capsule,delayed,extend.release 3 mg PO TID potassium chloride 20 mEq tablet,ER particles/crystals 20 meq PO DAILY Xifaxan 550 mg tablet 550 mg PO TID trazodone 150 mg tablet 150 mg PO DAILY ondansetron 4 mg tablet,disintegrating 4 mg PO TID PRN (Reason: NAUSEA ) nitroglycerin [Nitrostat] 0.4 mg tablet, sublingual 0.4 mg sublingual Q5-15M PRN (Reason: chest pain) Qty: 25 3RF Rx Instructions: do not exceed 3 doses per episode albuterol sulfate 90 mcg/actuation HFA aerosol inhaler 2 puff INHALATION Q6H PRN PRN (Reason: Shortness Of Breath) Qty: 8.5 6RF atorvastatin 40 mg tablet 40 mg PO QHS Qty: 90 3RF fenofibrate 54 mg tablet 54 mg PO DAILY Qty: 90 3RF albuterol sulfate 2.5 mg /3 mL (0.083 %) solution for nebulization 2.5 mg INHALATION Q8H PRN PRN (Reason: shortness of breath or wheezing) Qty: 180 6RF clopidogrel 75 mg tablet 75 mg PO DAILY Qty: 30 11RF Referrals / Follow Up: *[facility] [Provider Group] - Within 3 Months Eliel Mosley, [facility] [Primary Care Provider] - [facility],Renetta Rodriguez [Non-Staff] - Disposition Disposition (needs filled in before D/C Order can be placed): Home, Self Care Charges/Coding Visit Charges Inpatient E&M: 28184 Disch Hosp >30min
--- NOTE | 2023-04-16 11:56 | CASEMGMT ---
FRANTZ DOS SANTOS NOTE: Pt being discharged. FRANTZ DOS SANTOS to room. Pt sitting up in chair in room. Introduced self and role. Pt states he feels safe discharging home alone. He lives alone and states he is independent. Pt going home on Eliquis. He would like to get his meds from [facility] and would like them delivered to his room. He was made aware the 30-day free trial card will be applied and if refills are not affordable, to discuss this w/his PCP. He voices understanding. Humberto LANDRY, cat aware and to call the pharmacy once d/c meds have been entered. Pt has an appt scheduled w/Bethany Courtney, [facility]-pulmonology, on 05/01/23 and he is aware. He states this info is written @ his home. FRANTZ DOS SANTOS did enter this into his d/c plan as well. Pt is not sure who will be taking him home, as his daughter works until 5 PM. He states if [facility] van available to take him home, he would like to do that. Otherwise he states he can check and see if his dtr is available after work. Call placed to [facility] van call center and scheduled for them to take pt home @ 2:30 PM today. Pt and Humberto LANDRY, made aware. Pt voices appreciation. Home O2 testing completed and pt does not qualify for home o2. He states he does have a pulse ox @ home. While FRANTZ DOS SANTOS in room talking w/pt, his Direction e commerce project manager, Suzy, called pt and after pt spoke w/Suzy, he handed the phone to FRANTZ DOS SANTOS. Suzy made aware pt admitted under OBS for PE and is going home on new Rx for Eliquis, which he will receive today. She asks for discharge instructions/summary be faxed to [facility] when available. Joie TODD, made aware. Pt denies having further questions/concerns or discharge needs. Lupis ANDERSON RN, CM
--- NOTE | 2023-04-16 12:02 | CHAPLAIN ---
Type of Pastoral Visit _x__ Initial Visit ___ Follow-up Visit ___ On-call Visit ___ General Patient Visit ___ Spiritual Assessment ___ Family Conference ___ Bereavement ___ Rapid Response ___ Code Blue ___ Other (describe below) Pastoral Care Referral From _x__ Patient ___ Family ___ Nurse ___ Physician ___ Refrigeration Mechanic ___ Shipboard Intelligence Analyst ___ Other (describe below) Sacrament/Intervention _x__ Active listening ___ Anointing ___ Yazdanism ___ Bereavement ___ Communion ___ Kelsey exploration ___ ___ Life review _x__ Prayer ___ Reconciliation ___ Sacrament of Sick ___ Supportive presence ___ Wedding ___ Other (describe below) Pastoral Comments patient will be discharged later today; pt speaks of being satisfied with his care and thankful to go home; pt has cat that he wants to be with; pt lives alone but states no concerns; pt appears to be content with situation and responds that he would like someone to say a prayer for him; prayer given
--- NOTE | 2023-04-16 12:45 | CASEMGMT ---
Per RN CM patient has a Direction Home Bankruptcy Processor. Patient's counseling case manager is Suzy. PEYTON faxed patient's d/c summary to [facility] per Suzy's request. Joie COELLO
[2023-04-16] MEDS: Loratadine 10 MG Tablet PO (13:31)
== END 2023-04-16 14:28 | disposition home or self-care (01) ==
LOC: ED 21:29 → ICU 21:52
PROVIDERS: Nurse Practitioner; Admitting Provider Internal Medicine; Emergency Provider Emergency Medicine; PCP Nurse Practitioner Family
DX: I26.99 Other pulmonary embolism without acute cor pulmonale (principal); J43.9 Emphysema, unspecified; I50.9 Heart failure, unspecified; I11.0 Hypertensive heart disease with heart failure; F31.9 Bipolar disorder, unspecified; K50.90 Crohn's disease, unspecified, without complications; E11.9 Type 2 diabetes mellitus without complications; G89.29 Other chronic pain; Z91.199 Patient's noncompliance with other medical treatment and regimen due to unspecified reason; Z79.01 Long term (current) use of anticoagulants; N40.1 Benign prostatic hyperplasia with lower urinary tract symptoms; G47.33 Obstructive sleep apnea (adult) (pediatric); E78.00 Pure hypercholesterolemia, unspecified; I25.10 Atherosclerotic heart disease of native coronary artery without angina pectoris; Z87.891 Personal history of nicotine dependence; N13.8 Other obstructive and reflux uropathy; Z79.899 Other long term (current) drug therapy; Z79.02 Long term (current) use of antithrombotics/antiplatelets; K21.9 Gastro-esophageal reflux disease without esophagitis; G25.81 Restless legs syndrome
CPT/HCPCS: 71045; 71275; 80048; 83880; 84484; 85025; 85379; 87631; 93005; 93970; 94640; 94668; 94760; 96374; 96375; 97161; 97166; 99221; 99284; Q9967; A4216; G0378; J2405

== ENCOUNTER 2023-04-25 10:00 | Outpatient (RCR) | payer MEDICARE, MEDICAID, SELFPAY ==
[2018-10-16 10:45] VITALS: BMI 21.8
--- NOTE | 2023-02-05 09:58 | HP.PTEVAL_ITS ---
Patient's Visit Information Visit Information Visit Information: LILLIAN GUERRERO is a 72 year old M referred to Physical Therapy by Dr. 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 Date of Evaluation: 02/05/23 Physical Therapist: Bari Linton, PT, Cert MDT, OCS Visit Plan Frequency: 2x /Week Duration: 4 Weeks Plan: PT INTERVENTIONS PROM/AAROM/AROM ,STRENGTENING RTC/SCAPULAR STRENGTHENING ,POSTURAL EX'S AND MODALTIES Subjective Subjective: This 72 y/o male presents to physical therapy with right shoulder p ain which patient had revision October 2022 and had initially June 2022 . Patient had revision due to falling . Then most recently fell ~ 4 weeks ago getting OOB knees buckled and fell on right shoulder and knee. Patient had immediate pain . Patient seen Suki recommended PT ,x-rays and cortisone injection. Prescribed Vicodin. Patient has difficulty raising arm affects ADLS and self hygiene . Patient has difficulty with self hygiene. Patient has no pain at rest . Patient has difficulty sleeping on right side. Pain affects housework tasks and QOL. Patient goals to have no pain. 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 Pain Right Shoulder: Pain Intensity (Out of 10): 5 Pain Intensity Range: 10 Objective Objective: POSTURE: mild forward posture rounded shoulders PALAPTION: tender AC NEURO: denies paresthesia/tingling ,reflexes C5-6-7 AROM: shoulder flexion 70 degrees ,abduction 70 degrees PROM: shoulder flexion 160 degrees ,160 degrees , abduction , ER 90 degrees MMT: ( peak force) infraspinatus 5.4 ,supraspinatus 2.4,deltoid 0 SCAPULAR FUNCTION: < 1:1 CAPSULAR TIGHTNESS: mild tight Special Tests R Shoulder External Rotation Lag Test - RC Tear: Negative R Shoulder Lift Off Test - Subscapular Tear: Negative R Shoulder Drop Sign - IS Test: Negative R Shoulder Empty Can - SS: Positive R Shoulder Belly Press - SupScap: Negative R Shoulder Neer - Impingement: Positive R Shoulder Crenshaw Deon - Impingement: Positive R Shoulder Shrug Sign - OA/Adhesive Capsulitis: Positive Balance/Special Test Scores Quick DASH Score: 60.0000 Goals Goal 1:: Patient to be I with HEP Goal Time Frame: 4-6 Weeks Goal 2:: Patient to improve AROM shoulder flexion/abduction 110 degrees> to improve function and ADL's Goal Time Frame: 4-6 Weeks Goal 3:: Patient to improve peak force RTC and deltoid by 5-10 # to improve function and ADLS with housework tasks Goal Time Frame: 4-6 Weeks Goal 4:: Patient to quick dash by 5 points to improve QOL and function Goal Time Frame: 4-6 Weeks Goal 5:: Patient to demonstrate 50% improvement with increase function and less pain Goal Time Frame: 4-6 Weeks Rehabilitation Potential Physical Therapy Diagnosis: This patient has h/o revision RTC Oct 2022 then most recently fell on shoulder caused pain ,decrease ROM ,decrease strength ,function impairs ADLS thus benefit from skilled PT Rehabilitation Potential: Good Anticipated Interventions Patient/Client Instruction: Educate patient on: Condition and Plan of Care For the Purpose of:: To decrease pain, To increase ROM, To improve muscle performance and motor function, To improve ability to perform ADL's, To increase tolerance to activity/condition/position, To improve ability of physical actions for home/community/work/leisure, To improve health of tissue, To decrease soft tissue restriction, To increase flexibility/ROM and To prevent re-injury Therapeutic Exercise to Include: Strength training, Postural training, Flexibilty training, Passive ROM, Active ROM and Scapular Strength/Stabilization Comment: RTC For the Purpose of:: To decrease pain, To increase ROM, To improve muscle performance and motor function, To improve ability to perform ADL's, To increase tolerance to activity/condition/position, To improve ability of physical actions for home/community/work/leisure, To improve health of tissue, To decrease soft tissue restriction, To reduce risk of recurrence and To improve tolerance to ADL's Manual Therapy Techniques to Include: Mobilization and Passive ROM Comment: G-H For the Purpose of:: To decrease pain, To increase ROM, To improve nutrient delivery to tissue, To increase oxygenation perfusion, To improve health of tissue, To decrease soft tissue restriction, To increase flexibility/ROM and To prevent re-injury TENS: Yes IF ES: Yes Cryotherapy (ice pack, ice massage): Yes Thermo therapy (hot pack): Yes Ultrasound (thermal/non thermal): Yes For the Purpose of:: To decrease pain, To increase ROM, To improve nutrient delivery to tissue, To increase oxygenation perfusion, To improve health of tissue and To decrease soft tissue restriction Text: Thank you for the opportunity to evaluate your patient. For Medicare and Medicare HMO plans, please review the plan of care and approve it. It will need to be FAXED BACK to us at [phone] for Medicare purposes. For Medicare only, by signing this I certify the plan of care. Please let me know if there are questions or concerns regarding this plan of care. Physician Signature: Date:
--- NOTE | 2023-04-25 10:29 | HP.PTDCSUM ---
Discharge Summary D/C summary: It has been my pleasure to treat LILLIAN GUERRERO referred by Dr. Miguelangel Cohn DO, with the diagnosis of PAIN IN RIGHT SHOULDER ,SPECIFIED POSTPROCEDURAL for a total of 12 visit(s). Discharge Date: 04/25/23 Please see the following information for a summary of their discharge status. Subjective Subjective: Doing good with shoulder Had PE hospitalized 2 week Has other medical issues Pain Right Shoulder: Pain Intensity (Out of 10): 1 Overall Improvement % Improvement: 80 Objective Objective/Function: POSTURE: mild forward posture rounded shoulders PALAPTION: tender AC NEURO: denies paresthesia/tingling ,reflexes C5-6-7 AROM: shoulder flexion 150 degrees ,abduction 145 degrees MMT: ( peak force) infraspinatus 9.4 ,supraspinatus 8.4,deltoid 7.8 SCAPULAR FUNCTION: < 1:1 CAPSULAR TIGHTNESS: mild tight Goals Goal 1:: Patient to be I with HEP Goal Progress: Goal Met Goal 2:: Patient to improve AROM shoulder flexion/abduction 110 degrees> to improve function and ADL's Goal 3:: Patient to improve peak force RTC and deltoid by 5-10 # to improve function and ADLS with housework tasks Goal Progress: Goal Met Goal 4:: Patient to quick dash by 5 points to improve QOL and function Goal Progress: Goal Met Goal 5:: Patient to demonstrate 50% improvement with increase function and less pain Goal Progress: Goal Met Plan Plan: D/C D/C Information Discharge Comments: HEP d/c sentence: If there are questions or concerns regarding this patient's physical therapy, please feel free to call me at [phone]. Thank you for the referral of this patient. Sincerely, Bari Linton, PT, Cert MDT, OCS Balance/Gait/Functional tests Balance/Special Test Scores Quick DASH Score: 60.0000 Improvement % Improvement: 80
== END 2023-04-25 19:00 | disposition home or self-care (01) ==
LOC: PT 10:00
PROVIDERS: Visit Provider Orthopaedic Surgery
DX: M25.511 Pain in right shoulder (principal); Z98.890 Other specified postprocedural states
CPT/HCPCS: 97110; 97140; 97162

== ENCOUNTER → 2023-04-25 | Outpatient (CLI) | payer MEDICARE, MEDICAID, SELFPAY ==
[2018-10-16 10:45] VITALS: BMI 21.8
--- NOTE | 2023-04-25 14:16 | CT_ITS ---
STUDY: CT ABDOMEN AND PELVIS WITH CONTRAST REASON FOR EXAM: Male, 73 years old. Ventral hernia -- oral AND iv contrast RADIATION DOSAGE (If Supplied By Facility): CTDIvol = ( 16.68 ) mGy, DLP = ( 1056.80 ) mGycm TECHNIQUE: Transaxial images were obtained from the dome of the diaphragm to the symphysis pubis without oral contrast. IV 100mL Isovue-300 was administered. Sagittal and coronal images were reconstructed. Individualized dose optimization techniques were used for this CT. COMPARISON: Comparison is made with prior study November 11, 2022. FINDINGS: The visualized lung bases are unremarkable. Coronary artery calcification. There is decreased attenuation of the liver consistent with steatosis. Status post cholecystectomy. Normal spleen. Normal pancreas. Normal bilateral adrenal glands. There is a 2 cm cyst in the upper lateral aspect of the upper pole of the right kidney. Normal left kidney. There is a small hiatal hernia. Normal small intestine. There are multiple colonic diverticula consistent with diverticulosis. There are surgical clips in the region of the appendix consistent with a prior appendectomy. There is scattered atherosclerotic calcification of the abdominal aorta, without a demonstrated aneurysm. Normal inferior vena cava. Normal retroperitoneum. Normal urinary bladder. There is enlargement of the prostate gland. This measures 4 cm x 5.6 cm. This causes indentation of the bladder base. There is evidence of prior ventral hernia repair with a mesh. No hernia is seen at this time. There are degenerative changes of the visualized lumbar spine. CT/Abdomen/Pelvis WITH Contrast IMPRESSION: Fatty infiltration the liver. Status post cholecystectomy. Stable right renal cyst. Sigmoid diverticulosis. Prostatic enlargement with indentation at the bladder base. Electronically Signed: Jimmy Mathew MD at 14:56 EST ,
== END | disposition home or self-care (01) ==
PROVIDERS: Referring Provider Surgery; Visit Provider Surgery
DX: K43.9 Ventral hernia without obstruction or gangrene (principal)
CPT/HCPCS: 74177; Q9967

== ENCOUNTER → 2023-05-21 | Outpatient (CLI) | payer MEDICARE, MEDICAID, SELFPAY ==
[2018-10-16 10:45] VITALS: BMI 21.8
[2023-05-21 10:01] LABS: Absolute Neutrophil Count 5.8 X10^3/uL (2.0-7.7); Basophil# 0.05 X10^3/uL; Basophil% 0.6 % (0-1); Eosinophil# 0.05 X10^3/uL; Eosinophils% 0.6 % (0-5); Hematocrit 38.1 % (40-54); Lymphocyte % 24.5 % (19-41); Mean Corp Hgb Conc 31.5 g/dL (32-36); Mean Corpuscular Hgb 27.4 pg (27.0-32.0); Mean Platelet Vol. 9.6 fl (6.2-12.0); Monocyte# 0.73 X10^3/uL; Monocyte% 8.1 % (0-10); NRBC Flagged by Analyzer 0 % (0-5); Neutrophil # 5.81 X10^3/uL (2.7-7.7); Neutrophil % 64.8 % (47-70); Platelet Count 232 K/mm3 (150-450); RBC Distribution Width CV 14.4 % (11.6-14.6); RBC Distribution Width SD 45.4 fl (35.1-43.9); Red Blood Count 4.38 M/mm3 (4.6-6.2)
[2023-05-21 11:05] LABS: Anion Gap 6 (5-15); BUN 24 mg/dL (7-18); Calcium,Total 9.1 mg/dL (8.5-10.1); Chloride 109 mmol/L (98-107); Creatinine, Serum 1.33 mg/dL (0.70-1.30); EST Glomerular Filtration Rate 56 mL/min (>60); Est Glom Filt Rate - Afr Amer 67 mL/min (>60); Glucose 91 mg/dL (74-106); PSA,Total - Annual Screen 3.47 ng/mL (0.00-4.00); Potassium 3.6 mmol/L (3.5-5.1); Sodium Level 143 mmol/L (136-145)
== END | disposition home or self-care (01) ==
LOC: LAB 09:01
PROVIDERS: PCP Nurse Practitioner Family; Referring Provider Nurse Practitioner Family; Visit Provider Nurse Practitioner Family
DX: E87.6 Hypokalemia (principal); N40.0 Benign prostatic hyperplasia without lower urinary tract symptoms; K58.0 Irritable bowel syndrome with diarrhea; Z12.5 Encounter for screening for malignant neoplasm of prostate
CPT/HCPCS: 36415; 80048; 84153; 85025; G0103

== ENCOUNTER → 2023-05-26 | Outpatient (CLI) | payer MEDICARE, MEDICAID, SELFPAY ==
[2018-10-16 10:45] VITALS: BMI 21.8
[2023-05-26 15:23] LABS: Amphetamine Urine VISTA NEGATIVE (<1000 ng/mL); Barbiturate Urine VISTA NEGATIVE (< 200 ng/mL); Benzodiazepine Urine VISTA NEGATIVE (< 200 ng/mL); Cocaine Urine VISTA NEGATIVE (< 300 ng/mL); Ecstacy Urine VISTA POSITIVE (< 500 ng/mL); Methadone Urine VISTA NEGATIVE (< 300 ng/mL); PCP Urine VISTA NEGATIVE (< 25 ng/mL); THC Urine VISTA POSITIVE (< 50 ng/mL); Vista UDS pH Range 5
== END | disposition home or self-care (01) ==
LOC: LAB 11:20
PROVIDERS: PCP Nurse Practitioner Family; Referring Provider Anesthesiology Pain Medicine; Visit Provider Anesthesiology Pain Medicine
DX: F11.20 Opioid dependence, uncomplicated (principal)
CPT/HCPCS: 80307

== ENCOUNTER → 2023-06-02 | Outpatient (CLI) | payer MEDICARE, MEDICAID, SELFPAY ==
[2018-10-16 10:45] VITALS: BMI 21.8
[2023-06-02 11:25] LABS: Absolute Lymphocyte Count 1.47 X10^3/uL (0.83-4.51); Absolute Neutrophil Count 3.8 X10^3/uL (2.0-7.7); Basophil# 0.03 X10^3/uL; Basophil% 0.5 % (0-1); Eosinophil# 0.08 X10^3/uL; Eosinophils% 1.4 % (0-5); Hematocrit 36.5 % (40-54); Hemoglobin 11.3 g/dL (13.0-16.5); Lymphocyte # 1.47 X10^3/ul (0.83-4.51); Lymphocyte % 25.1 % (19-41); Mean Corpuscular Hgb 27.4 pg (27.0-32.0); Mean Corpuscular Volume 88.4 fL (80-94); Monocyte# 0.49 X10^3/uL; Monocyte% 8.4 % (0-10); NRBC Flagged by Analyzer 0 % (0-5); Neutrophil # 3.75 X10^3/uL (2.7-7.7); Neutrophil % 64.1 % (47-70); Platelet Count 218 K/mm3 (150-450); RBC Distribution Width CV 13.8 % (11.6-14.6); RBC Distribution Width SD 44.6 fl (35.1-43.9); Red Blood Count 4.13 M/mm3 (4.6-6.2); White Blood Count 5.9 K/mm3 (4.4-11.0)
[2023-06-02 11:49] LABS: Vitamin B12 428 pg/mL (211-911); Vitamin D,25 Hydroxy 9.7 ng/mL
[2023-06-02 12:01] LABS: ALB/GLOB Ratio 1.2 RATIO (0.9-2.4); AST(SGOT) 18 U/L (15-37); Alanine Aminotransfer ALT/SGPT 42 U/L (16-61); Albumin, Serum 3.5 g/dL (3.2-5.0); Alkaline Phosphatase 74 U/L (45-117); Anion Gap 5 (5-15); BUN 13 mg/dL (7-18); BUN/Creat Ratio 10.5 RATIO (10-20); Calcium,Total 8.5 mg/dL (8.5-10.1); Chloride 110 mmol/L (98-107); Creatinine, Serum 1.24 mg/dL (0.70-1.30); EST Glomerular Filtration Rate 60 mL/min (>60); Est Glom Filt Rate - Afr Amer 73 mL/min (>60); Ferritin 108 ng/mL (26-388); Glucose 113 mg/dL (74-106); Iron 59 ug/dL (65-175); Iron Binding Capacity,Total 309 ug/dL (250-450); PERCENT IRON SATURATION 19.1 % (15.0-55.0); Potassium 3.5 mmol/L (3.5-5.1); Protein, Total 6.5 g/dL (6.4-8.2); Sodium Level 143 mmol/L (136-145)
--- NOTE | 2023-06-02 18:07 | MRI_ITS ---
STUDY: MRI RIGHT SHOULDER REASON FOR EXAM: Male, 73 years old. Chronic pain. TECHNIQUE: Standardized fat and water weighted pulse sequences were obtained in all 3 orthogonal planes. COMPARISON: Right shoulder radiographs dated 01/27/2023. FINDINGS: There are postoperative changes related to prior rotator cuff repair surgery with anchors in the greater tuberosity of the humeral head. There is a full-thickness tear of the distal supraspinatus tendon with 2.6 cm medial tendon retraction. There is infraspinatus and subscapularis tendinosis. Normal teres minor tendon. Normal supraspinatus muscle. Normal infraspinatus muscle. Normal subscapularis muscle. Normal teres minor muscle. There is a tiny glenohumeral joint effusion with fluid communicating into the subacromial-subdeltoid bursa. Intact humeral head and visualized proximal humerus. There is a tear of the posterior-superior glenoid labrum (coronal T2 series 6 images 14-15). There is hypertrophic acromioclavicular arthrosis. There is a Type II morphology (curved), with a neutral orientation. There is no subacromial-subdeltoid bursal fluid. Normal visualized coracohumeral and coracoacromial ligaments. Normal quadrilateral space. Normal axillary space. Normal deltoid muscle. Normal trapezius muscle. MRI/Upper Ext Joint Only(Routine) IMPRESSION: Full-thickness tear of the distal supraspinatus tendon with 2.6 cm medial tendon retraction. Infraspinatus and subscapularis tendinosis. Tiny glenohumeral joint effusion with fluid communicating into the subacromial-subdeltoid bursa. Tear of the posterior-superior glenoid labrum. Hypertrophic acromioclavicular arthrosis. Electronically Signed: Hossein Burrell MD at 12:41 EDT ,
[2023-06-03 16:10] LABS: Deamidated Gliadin IgA 3 units (0-19); Deamidated Gliadin IgG 2 units (0-19); Immunoglobulin A 69 mg/dL (61-437); t-Transglutaminase IgA <2 U/mL (0-3)
[2023-06-04 13:08] LABS: Vitamin D 1,25-Dihydroxy 8.3 pg/mL (24.8-81.5)
== END | disposition home or self-care (01) ==
LOC: MRI 11:18
PROVIDERS: Internal Medicine Gastroenterology; PCP Nurse Practitioner Family; Referring Provider Orthopaedic Surgery; Visit Provider Orthopaedic Surgery
DX: R10.9 Unspecified abdominal pain (principal); D64.9 Anemia, unspecified; E55.9 Vitamin D deficiency, unspecified; K76.0 Fatty (change of) liver, not elsewhere classified; K52.81 Eosinophilic gastritis or gastroenteritis; R19.7 Diarrhea, unspecified
CPT/HCPCS: 36415; 73221; 80053; 82306; 82607; 82652; 82728; 82746; 82784; 83516; 83540; 83550; 85025

== ENCOUNTER → 2023-06-17 | Outpatient (CLI) | payer MEDICARE, MEDICAID, SELFPAY ==
[2018-10-16 10:45] VITALS: BMI 21.8
--- NOTE | 2023-06-17 15:13 | MRI_ITS ---
STUDY: MRI LOWER EXTREMITY RIGHT TIBIA/FIBULA WITH AND WITHOUT CONTRAST REASON FOR EXAM: Male, 73 years old. Multiple falls, nonspecific area of pain. Found a lesion on right tibia/fibula x-ray. TECHNIQUE: Standardized fat and water weighted pulse sequences were obtained in all 3 orthogonal planes, post contrast administration. IV 17cc Clariscan was administered for the contrast portion of the examination. COMPARISON: Right knee radiographs dated 06/04/2023. FINDINGS: There is a 0.5 x 1.2 x 2.0 cm area of low signal in the subcortical region of the anteromedial aspect of the proximal tibial shaft. There is no surrounding marrow edema, periostitis, or pathologic fracture. This likely represents an old healed/sclerosed benign bone lesion such as a nonossifying fibroma. Normal fibula, without a periosteal, cortical or cancellous marrow abnormality. Normal anterior and lateral calf compartments, with normal muscles, crural fascia and intermuscular septa. There is focal atrophy and fatty infiltration of the lateral aspect of the soleus muscle (axial T1 series 7 images 28-30 (coronal T1 series 6 images 18-20), which could be the sequelae of an old injury. Otherwise, normal remainder of the posterior calf compartments. Normal subcutis adipose space, without subcutis adipose space edema. There is no solid, cystic or lipomatous mass lesion of the subcutis adipose space. There is no abnormal contrast enhancement. 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 No abnormal contrast enhancement. Focal atrophy and fatty infiltration of the lateral aspect of the soleus muscle, which could be the sequelae of an old injury. Electronically Signed: Hossein Burrell MD at 9:50 EDT ,
== END | disposition home or self-care (01) ==
LOC: MRI 15:02
PROVIDERS: PCP Nurse Practitioner Family; Referring Provider Orthopaedic Surgery; Visit Provider Orthopaedic Surgery
DX: M89.9 Disorder of bone, unspecified (principal)
CPT/HCPCS: 73720; A9575

== ENCOUNTER 2023-07-05 06:27 | Emergency (ER) | payer MEDICARE, MEDICAID, SELFPAY ==
[2018-10-16 10:45] VITALS: BMI 21.8
[2023-07-05 06:27] VITALS: BP 131/86; PULSE 90; RESP 18; TEMP 36.1; O2SAT 96; BMI 25.2
--- NOTE | 2023-07-05 06:31 | RAD_ITS ---
INDICATION: injury EXAMINATION/TECHNIQUE: X-RAY - LEFT XR Knee Complete 4 Views or More 5 VIEWS COMPARISON: X-rays left knee 04/14/2023 FINDINGS: BONES: No fracture demonstrated. Degenerative changes patellofemoral and medial joint compartments. Not significantly changed. JOINTS: No dislocation. SOFT TISSUES: Small joint effusion. RAD/Knee 4 or More Views IMPRESSION: No evidence of fracture. Small joint effusion. Electronically Signed: Jovanna Bess MD at 7:34 EDT ,
--- NOTE | 2023-07-05 06:33 | EDS_ITS ---
HPI History of Present Illness Chief Complaint: Fall Informant: patient and EMS Narrative Narrative: Brought in by EMS from home for left knee injury. States said a bad left knee for the past year. He was walking the knee gave out causing increasing pain. No head injuries. No paresthesias. He has a cane and a walker. He is followed by orthopedics Dr. Lieberman, last seen 5 days ago. He has recommended left total knee replacement. He is currently on [place] none taken today. No head injuries. He lives alone. Prior similar symptoms: Yes PFSH PFS Medical History Acromioclavicular joint arthritis Alcohol use Ambulates with cane Anxiety Arthritis Asthma Atherosclerotic heart disease of [place] coronary artery without angina pectoris Back pain Bipolar disorder BPH (benign prostatic hyperplasia) Brachial neuritis (05/31/11) Cannabis dependence Cardiology follow-up encounter Cervical radiculitis Cervical spondylosis Chest pain Chest tightness Chronic obstructive lung disease (08/02/20) Chronic pain Complete rotator cuff tear Congestive heart failure (CHF) COPD (chronic obstructive pulmonary disease) CPAP (continuous positive airway pressure) dependence DDD (degenerative disc disease) Dementia Dementia Depression Diabetes Dietary restriction Displacement of lumbar intervertebral disc without myelopathy (03/01/11) Dyspnea on exertion Emphysema, unspecified Essential (primary) hypertension Essential hypertension (08/02/20) Fatigue Former smoker GERD (gastroesophageal reflux disease) High cholesterol History of CHF (congestive heart failure) History of echocardiogram History of IBS History of irregular heartbeat History of pain when walking History of pulmonary embolism History of stress test Hyperlipidemia Hypertension Irregular heart beat Kidney disease Low back pain (03/01/11) Lung nodule < 6cm on CT Malaise and fatigue (08/02/20) Marijuana use Migraines Myocardial infarct Neck pain (03/01/11) Neck sprain (03/01/11) Orthopnea MONIQUE (obstructive sleep apnea) Osteoarthritis of left knee Pain of left knee and lower leg Partial tear of right rotator cuff Peptic ulcer disease Pleurisy PND (paroxysmal nocturnal dyspnea) Prostate disease Pulmonary embolism PVCs (premature ventricular contractions) Restless leg syndrome Rheumatoid arthritis Schizophrenia Shortness of breath on exertion Shoulder impingement SLAP tear of shoulder Sleep apnea Smoking greater than 40 pack years Stage 2 moderate COPD by GOLD classification Syncope and collapse Trigger finger Ventral hernia, recurrent Wears glasses Wheezing Home Medications ropinirole 0.5 mg tablet 0.5 mg PO QHS RESTLESS LEGS 04/23/16 [History Last Taken 07/29/19] tamsulosin 0.4 mg capsule 0.4 mg PO QHS PROSTATE 01/30/17 [History Last Taken 07/29/19] omeprazole 40 mg capsule,delayed release 40 mg PO DAILY GERD 07/30/19 [History Last Taken 07/30/19] aripiprazole 10 mg tablet (Abilify) 10 mg PO DAILY ANXIETY 11/09/20 [History Last Taken Unknown] baclofen 10 mg tablet 10 mg PO TID PAIN 11/09/20 [History Last Taken Unknown] icosapent ethyl 1 gram capsule (Vascepa) 2 g PO BID HEART 11/09/20 [History Last Taken Unknown] donepezil 10 mg tablet 10 mg PO DAILY ALZHEIMERS 10/23/21 [History Last Taken Unknown] lamotrigine 200 mg tablet (Lamictal) 200 mg PO DAILY MOOD 10/23/21 [History Last Taken Unknown] olanzapine 10 mg tablet (Zyprexa) 10 mg PO QHS MOOD 10/23/21 [History Last Taken Unknown] albuterol sulfate 90 mcg/actuation aerosol inhaler 2 puff inhalation Q6H PRN PRN Shortness Of Breath #8.5 grams 12/24/21 [Rx Last Taken 02/05/22] acetaminophen 500 mg tablet 1,000 mg PO Q6H PRN PRN Pain 05/28/22 [History Last Taken Unknown] fenofibrate 54 mg tablet 54 mg PO DAILY CHOLESTEROL #90 tabs 09/13/22 [Rx Last Taken Unknown] clopidogrel 75 mg tablet 75 mg PO DAILY BLOOD THINNER #30 tabs 01/03/23 [Rx Last Taken Unknown] budesonide 160 mcg-glycopyr 9 mcg-formot 4.8 mcg/actuation HFA inhaler (Breztri Aerosphere) 2 inh inhalation BID COPD #10.7 grams 01/28/23 [Rx Last Taken Unknown] Lactobacillus acidophilus 75 million cell-pectin 100 mg capsule (Acidophilus- Pectin) 1 cap PO DAILY GUT HEALTH 04/15/23 [History Last Taken Unknown] budesonide 3 mg capsule,delayed,extended release 3 mg PO TID CROHNS DISEASE 04/15/23 [History Last Taken Unknown] dicyclomine 20 mg tablet 20 mg PO 4X/DAY IRRITABLE BOWELS 04/15/23 [History Last Taken Unknown] fexofenadine 180 mg tablet 180 mg PO DAILY ALLERGIES 04/15/23 [History Last Taken Unknown] hydrocodone-acetaminophen 5-325mg 5mg-325mg 1 tab PO BID PAIN 04/15/23 [History Last Taken Unknown] ondansetron 4 mg disintegrating tablet 4 mg PO TID PRN NAUSEA 04/15/23 [History Last Taken Unknown] potassium chloride 20 mEq tablet,extended release(part/cryst) 20 meq PO DAILY SUPPLEMENT 04/15/23 [History Last Taken Unknown] rifaximin 550 mg tablet (Xifaxan) 550 mg PO TID DIARRHEA 04/15/23 [History Last Taken Unknown] trazodone 150 mg tablet 150 mg PO DAILY SLEEP 04/15/23 [History Last Taken Unknown] losartan 25 mg tablet 25 mg PO BID BLOOD PRESSURE #180 tabs 04/28/23 [Rx Last Taken Unknown] apixaban 5 mg (74 tabs) tablets in a dose pack ([employer] ([place]) DVT-PE Treat 30D Start) 5 mg PO BID #60 tabs 05/01/23 [Rx Last Taken Unknown] nitroglycerin 0.4 mg sublingual tablet (Nitrostat) 0.4 mg sublingual Q5-15M PRN chest pain #25 tabs 06/16/23 [Rx Last Taken Unknown] atorvastatin 40 mg tablet 40 mg PO QHS CHOLESTEROL #90 tabs 06/24/23 [Rx Last Taken Unknown] albuterol sulfate 2.5 mg/3 mL (0.083 %) solution for nebulization 2.5 mg (3 mL) inhalation Q8H PRN PRN shortness of breath or wheezing #180 mL 06/27/23 [Rx Last Taken Unknown] Allergy/AdvReac Type Severity Reaction Status Date / Time Quinolones Allergy Unknown unknown Verified 06/30/23 11:15 aspirin Allergy Itching, Verified 06/30/23 11:15 Hives levofloxacin [From Levaquin] Allergy Hives, Verified 06/30/23 11:15 Itching Penicillins Allergy Hives, Verified 06/30/23 11:15 Itching Family History Mother CAD (coronary artery disease) Sister Diabetes Surgical History H/O cervical spine surgery H/O left knee surgery H/O ventral hernia repair History of appendectomy History of coronary artery stent placement (10/16/18) History of laparoscopic cholecystectomy History of left heart catheterization (04/2016) Hx of repair of right rotator cuff (06/04/22) S/P right rotator cuff repair Social History household members: none housing: house current occupational status: disabled Smoking Status: Former smoker quit date: 02/14/15 how long ago did patient quit smokin years ago second hand exposure: Yes alcohol intake: former details: Quit 9 years ago substance use type: does not use caffeine: Yes Type: coffee what type of physical activity do you participate in: none seatbelt use: always do you feel safe at home: Yes ROS ROS ED Constitutional Constitutional ED: Denies chills, fever(s) or sweats Eyes Eyes: Denies change in vision ENT ENT ED: Denies dysphagia or sore throat Cardiovascular Cardiovascular: Denies chest pain, leg edema, palpitations or racing heartbeat Respiratory/Chest Respiratory/Chest: Denies cough, dyspnea or dyspnea on exertion Gastrointestinal Gastrointestinal: Denies abdominal pain, diarrhea, nausea or vomiting Genitourinary Genitourinary ED: Denies dysuria, hematuria or urinary frequency Musculoskeletal Musculoskeletal: Reports extremity pain and other Details: Left knee pain ; Denies back pain or neck pain Integumentary Denies rash or wounds Neurologic Neurologic: Denies headache(s), paresthesias or weakness EXAM Physical Exam Const Vital Signs: 07/05/23 06:27 07/05/23 06:32 Temperature 97 F L Temperature Source Temporal Pulse Rate 90 Respiratory Rate 18 Respiratory Effort Normal Non-Labored Blood Pressure 131/86 H Blood Pressure Mean 101 Pulse Ox 96 Oxygen Delivery Method Room Air Room Air Positive well nourished and well developed Constitutional Narrative: GCS 15 General Appearance ED: well developed and NAD HEENT Reports moist mucous membranes normocephalic and atraumatic Eyes PERRL, EOMs intact bilaterally and conjunctivae normal General Eye ED: Yes normal appearance of both eyes Neck no lymphadenopathy and supple General: Negative for tenderness Chest Wall Negative for inspection of chest normal or palpation of chest normal Chest: Negative for tenderness Resp normal respiratory effort and normal air movement Effort and Inspection: symmetric chest movement; Negative for respiratory distress Cardio regular rate, regular rhythm and no murmurs Peripheral Pulses: pulses 2+ throughout GI normal to inspection, nondistended, normoactive bowel sounds and non-tender Palpation: Negative for guarding or rebound tenderness present Back/Spine no CVA tenderness and no thoracic nor lumbar tenderness Extremity Extremity Narrative: Negative logroll lower extremities. Left knee extensor mechanism intact. Positive Anastacia's with valgus stress. No deformities. Skin intact. Neuro vas intact distally. General Extremety ED: Yes tenderness; Negative for edema General Extremity: Negative for edema Neuro oriented x3 and no sensory deficits noted Sensorium / Orientation: awake and alert Skin no rashes or lesions noted and no wounds MDM MDM MDM Narrative Medical decision making narrative: Interventions / MDM: Differential diagnosis: Left knee sprain, osteoarthritis of the knee Diagnosis considered but do not suspect: No clinical ligament or tendon rupture. My EKG interpretation: N/A Imaging independently reviewed and interpreted by myself: Left knee 4 views: Degenerative changes of the left knee especially medial compartment. External documents reviewed: N/A Test considered but not ordered:N/A ED course: Patient fall after his knee buckled. Increasing knee pain on the left. [place] ordered for pain control. X-ray ordered for evaluation. X-ray interpreted by myself shows no fracture. No clinical tendon or ligament rupture. He is provided immobilizer he is able to ambulate with a walker. He has hydrocodone at home to use. He will continue this. He will follow-up with his orthopedist. All questions were answered. Re-evaluation: stable Disposition discussed with patient/family/significant other: Patient Case discussed with consulting clinician: N/A This note was generated with [employer] dictation software. It may contain incorrect words, spelling, and punctuation that were not noted in checking the note before signing. Discharge Plan Triage Chief Complaint: Fall ED Provider: Dangelo Quezada Dx/Rx/DC Orders Clinical Impression: Left knee sprain, Osteoarthritis of left knee Instructions: ED Knee Sprain, ED Osteoarthritis Prescriptions: No Action aripiprazole [Abilify] 10 mg tablet 10 mg PO DAILY icosapent ethyl [Vascepa] 1 gram capsule 2 g PO BID baclofen 10 mg tablet 10 mg PO TID olanzapine [Zyprexa] 10 mg tablet 10 mg PO QHS donepezil 10 mg tablet 10 mg PO DAILY lamotrigine [Lamictal] 200 mg tablet 200 mg PO DAILY Breztri Aerosphere 160-9-4.8 mcg/actuation HFA aerosol inhaler 2 inh inhalation BID Qty: 10.7 11RF Eliquis DVT-PE Treat 30D Start 5 mg (74 tabs) tablets,dose pack 5 mg PO BID Qty: 60 5RF ropinirole 0.5 MG tablet 0.5 mg PO QHS tamsulosin 0.4 MG capsule,extended release 24hr 0.4 mg PO QHS omeprazole 40 MG capsule,delayed release(DR/EC) 40 mg PO DAILY acetaminophen 500 mg tablet 1,000 mg PO Q6H PRN PRN (Reason: Pain) hydrocodone-acetaminophen 5-325 mg tablet 1 tab PO BID Acidophilus-Pectin 75 million cell -100 mg capsule 1 cap PO DAILY fexofenadine 180 mg tablet 180 mg PO DAILY dicyclomine 20 mg tablet 20 mg PO 4X/DAY budesonide 3 mg capsule,delayed,extend.release 3 mg PO TID potassium chloride 20 mEq tablet,ER particles/crystals 20 meq PO DAILY Xifaxan 550 mg tablet 550 mg PO TID trazodone 150 mg tablet 150 mg PO DAILY ondansetron 4 mg tablet,disintegrating 4 mg PO TID PRN (Reason: NAUSEA ) albuterol sulfate 90 mcg/actuation HFA aerosol inhaler 2 puff INHALATION Q6H PRN PRN (Reason: Shortness Of Breath) Qty: 8.5 6RF fenofibrate 54 mg tablet 54 mg PO DAILY Qty: 90 3RF clopidogrel 75 mg tablet 75 mg PO DAILY Qty: 30 11RF losartan 25 mg tablet 25 mg PO BID Qty: 180 3RF nitroglycerin [Nitrostat] 0.4 mg tablet, sublingual 0.4 mg sublingual Q5-15M PRN (Reason: chest pain) Qty: 25 3RF Rx Instructions: do not exceed 3 doses per episode atorvastatin 40 mg tablet 40 mg PO QHS Qty: 90 3RF albuterol sulfate 2.5 mg /3 mL (0.083 %) solution for nebulization 2.5 mg INHALATION Q8H PRN PRN (Reason: shortness of breath or wheezing) Qty: 180 6RF Primary Care Provider: Eliel Mosley Referrals: Miguelangel Cohn DO [Med Staff - Active Staff] - 1 Week Eliel Mosley, [facility] [Primary Care Provider] - Activity Restrictions/Additional Instructions: X-ray left knee no fracture. Osteoarthritic changes noted. Use knee imm obilizer for stability. Usual walker for stabilization at home. Continue your pain medicines at home. Follow-up with Dr. Cohn. Disposition Disposition: Home, Self Care
[2023-07-05] MEDS: HYDROcodone Bitartrate/Apap 5/325 Tablet PO (06:35)
[2023-07-05 07:23] VITALS: BP 131/76; PULSE 80; RESP 18; TEMP 36.6; O2SAT 95
== END 2023-07-05 07:26 | disposition home or self-care (01) ==
PROVIDERS: Emergency Provider Emergency Medicine; PCP Nurse Practitioner Family; Visit Provider Emergency Medicine
DX: S83.92XA Sprain of unspecified site of left knee, initial encounter (principal); M17.12 Unilateral primary osteoarthritis, left knee; I25.10 Atherosclerotic heart disease of native coronary artery without angina pectoris; Z87.891 Personal history of nicotine dependence; X58.XXXA Exposure to other specified factors, initial encounter
CPT/HCPCS: 73564; 99283

== ENCOUNTER 2023-07-10 17:43 | Inpatient (IN) | payer MEDICARE, MEDICAID, SELFPAY ==
[2018-10-16 10:45] VITALS: BMI 21.8
[2023-07-10] VITALS (12 sets, daily range): BP systolic 102–159; BP diastolic 80–92; PULSE 81–104; RESP 18–34; TEMP 36.4–36.6; O2SAT 98–100; BMI 24.7; BMI 23.8
--- NOTE | 2023-07-10 18:04 | EKG12_ITS ---
Test Reason : SOB Blood Pressure : / mmHG Vent. Rate : 088 BPM Atrial Rate : 088 BPM P-R Int : 148 ms QRS Dur : 080 ms QT Int : 380 ms P-R-T Axes : 082 027 047 degrees QTc Int : 459 ms Normal sinus rhythm Normal ECG Confirmed by AMARA STEVENSON, MARCUS ([id number]), script editor GRACIELA BARBOZA ([id number]) on 07/14/2023 1:06:44 PM Referred By: SCOTT Confirmed By:MELISSA MALONEY MD
--- NOTE | 2023-07-10 18:10 | RAD_ITS ---
EXAM: XR CHEST, 1 VIEW CLINICAL INDICATION: sob TECHNIQUE: Frontal view of the chest. COMPARISON: 04/15/2023 FINDINGS: LUNGS AND PLEURAL SPACES: Unremarkable. No consolidation or edema. No pneumothorax. No effusion. HEART: Unremarkable. Cardiac silhouette not enlarged. MEDIASTINUM: Central airways and mediastinal contour are unremarkable. BONES/JOINTS: Unremarkable. No acute fracture. SOFT TISSUES: Unremarkable. RAD/Chest 1 View (Portable) IMPRESSION: No radiographic evidence of acute cardiopulmonary disease. Electronically Signed: Woo Lisa MD at 18:47 EDT ,
--- NOTE | 2023-07-10 18:49 | EDS_ITS ---
HPI <GAURAV Chicas - Last Filed: 07/10/23 20:50> History of Present Illness Chief Complaint: Shortness of Breath Narrative Narrative: Patient is a 73-year-old male who lives alone, who has history of schizophrenia, COPD, arthritis, history of pulmonary embolus on Eliquis who presents to the emergency department for therapy to thrive as well as shortness of breath. Patient was seen here 5 days ago after mechanical fall injuring his left knee. Patient states since then he has been having difficulty getting around. He does have a insurance case manager who sees that he is doing okay and the insurance case manager referred him to the emergency department for inability to care for himself. Patient states that the COPD is getting out of control and he is also so weak and scared that he is going to fall that he thinks he needs to go to a longterm. He does not feel comfortable being home by himself. He denies any suicidal homicidal ideation. Denies any fever or chills. PFS <GAURAV Chicas - Last Filed: 07/10/23 20:50> [facility] Medical History Acromioclavicular joint arthritis Alcohol use Ambulates with cane Anxiety Arthritis Asthma Atherosclerotic heart disease of [place] coronary artery without angina pectoris Back pain Bipolar disorder BPH (benign prostatic hyperplasia) Brachial neuritis (05/31/11) Cannabis dependence Cardiology follow-up encounter Cervical radiculitis Cervical spondylosis Chest pain Chest tightness Chronic obstructive lung disease (08/02/20) Chronic pain Complete rotator cuff tear Congestive heart failure (CHF) COPD (chronic obstructive pulmonary disease) CPAP (continuous positive airway pressure) dependence DDD (degenerative disc disease) Dementia Dementia Depression Diabetes Dietary restriction Displacement of lumbar intervertebral disc without myelopathy (03/01/11) Dyspnea on exertion Emphysema, unspecified Essential (primary) hypertension Essential hypertension (08/02/20) Fatigue Former smoker GERD (gastroesophageal reflux disease) High cholesterol History of CHF (congestive heart failure) History of echocardiogram History of IBS History of irregular heartbeat History of pain when walking History of pulmonary embolism History of stress test Hyperlipidemia Hypertension Irregular heart beat Kidney disease Low back pain (03/01/11) Lung nodule < 6cm on CT Malaise and fatigue (08/02/20) Marijuana use Migraines Myocardial infarct Neck pain (03/01/11) Neck sprain (03/01/11) Orthopnea MONIQUE (obstructive sleep apnea) Osteoarthritis of left knee Pain of left knee and lower leg Partial tear of right rotator cuff Peptic ulcer disease Pleurisy PND (paroxysmal nocturnal dyspnea) Prostate disease Pulmonary embolism PVCs (premature ventricular contractions) Restless leg syndrome Rheumatoid arthritis Schizophrenia Shortness of breath on exertion Shoulder impingement SLAP tear of shoulder Sleep apnea Smoking greater than 40 pack years Stage 2 moderate COPD by GOLD classification Syncope and collapse Trigger finger Ventral hernia, recurrent Wears glasses Wheezing Home Medications ropinirole 0.5 mg tablet 0.5 mg PO QHS RESTLESS LEGS 04/23/16 [History Last Taken 07/09/23] tamsulosin 0.4 mg capsule 0.4 mg PO QHS PROSTATE 01/30/17 [History Last Taken 07/09/23] omeprazole 40 mg capsule,delayed release 40 mg PO DAILY GERD 07/30/19 [History Last Taken 07/09/23] aripiprazole 10 mg tablet (Abilify) 10 mg PO DAILY ANXIETY 11/09/20 [History Last Taken 07/09/23] baclofen 10 mg tablet 10 mg PO TID PAIN 11/09/20 [History Last Taken 07/09/23] icosapent ethyl 1 gram capsule (Vascepa) 2 g PO BID HEART 11/09/20 [History Last Taken 07/09/23] donepezil 10 mg tablet 10 mg PO DAILY ALZHEIMERS 10/23/21 [History Last Taken 07/09/23] lamotrigine 200 mg tablet (Lamictal) 200 mg PO DAILY MOOD 10/23/21 [History Last Taken 07/09/23] olanzapine 10 mg tablet (Zyprexa) 10 mg PO QHS MOOD 10/23/21 [History Last Taken 07/09/23] acetaminophen 500 mg tablet 1,000 mg PO Q6H PRN Pain 05/28/22 [History Last Taken 07/09/23] fenofibrate 54 mg tablet 54 mg PO DAILY CHOLESTEROL #90 tabs 09/13/22 [Rx Last Taken 07/09/23] clopidogrel 75 mg tablet 75 mg PO DAILY BLOOD THINNER #30 tabs 01/03/23 [Rx Last Taken 07/09/23] budesonide 160 mcg-glycopyr 9 mcg-formot 4.8 mcg/actuation HFA inhaler (Breztri Aerosphere) 2 inh inhalation BID COPD #10.7 grams 01/28/23 [Rx Last Taken 07/09/23] Lactobacillus acidophilus 75 million cell-pectin 100 mg capsule (Acidophilus- Pectin) 1 cap PO DAILY GUT HEALTH 04/15/23 [History Last Taken 07/10/23] budesonide 3 mg capsule,delayed,extended release 3 mg PO TID CROHNS DISEASE 04/15/23 [History Last Taken 07/09/23] dicyclomine 20 mg tablet 20 mg PO 4X/DAY IRRITABLE BOWELS 04/15/23 [History Last Taken 07/09/23] fexofenadine 180 mg tablet 180 mg PO DAILY ALLERGIES 04/15/23 [History Last Taken 07/09/23] hydrocodone-acetaminophen 5-325mg 5mg-325mg 1 tab PO BID PAIN 04/15/23 [History Last Taken 07/09/23] ondansetron 4 mg disintegrating tablet 4 mg PO TID PRN NAUSEA 04/15/23 [History Last Taken 07/09/23] potassium chloride 20 mEq tablet,extended release(part/cryst) 20 meq PO DAILY SUPPLEMENT 04/15/23 [History Last Taken 07/09/23] rifaximin 550 mg tablet (Xifaxan) 550 mg PO TID DIARRHEA 04/15/23 [History Last Taken 07/09/23] trazodone 150 mg tablet 150 mg PO DAILY SLEEP 04/15/23 [History Last Taken 07/09/23] losartan 25 mg tablet 25 mg PO BID BLOOD PRESSURE #180 tabs 04/28/23 [Rx Last Taken 07/09/23] nitroglycerin 0.4 mg sublingual tablet (Nitrostat) 0.4 mg sublingual Q5-15M PRN chest pain #25 tabs 06/16/23 [Rx Last Taken Unknown] atorvastatin 40 mg tablet 40 mg PO QHS CHOLESTEROL #90 tabs 06/24/23 [Rx Last Taken 07/09/23] albuterol sulfate 2.5 mg/3 mL (0.083 %) solution for nebulization 2.5 mg inhalation Q8H PRN shortness of breath or wheezing 07/10/23 [History Last Taken 07/09/23] albuterol sulfate 90 mcg/actuation aerosol inhaler 2 puff inhalation Q6H PRN Shortness Of Breath 07/10/23 [History Last Taken 07/09/23] apixaban 5 mg tablet (Eliquis) 5 mg PO BID 07/10/23 [History Last Taken 07/09/23] desvenlafaxine succinate 100 mg tablet,extended release 24 hr 100 mg PO DAILY 07/10/23 [History Last Taken 07/09/23] mesalamine 0.375 gram capsule,extended release 24 hr 1.5 g PO DAILY 07/10/23 [History Last Taken Unknown] Allergy/AdvReac Type Severity Reaction Status Date / Time Quinolones Allergy Unknown unknown Verified 07/10/23 17:49 aspirin Allergy Itching, Verified 07/10/23 17:49 Hives levofloxacin [From Levaquin] Allergy Hives, Verified 07/10/23 17:49 Itching Penicillins Allergy Hives, Verified 07/10/23 17:49 Itching Family History Mother CAD (coronary artery disease) Sister Diabetes Surgical History H/O cervical spine surgery H/O left knee surgery H/O ventral hernia repair History of appendectomy History of coronary artery stent placement (10/16/18) History of laparoscopic cholecystectomy History of left heart catheterization (04/2016) Hx of repair of right rotator cuff (06/04/22) S/P right rotator cuff repair Social History household members: none housing: house current occupational status: disabled Smoking Status: Former smoker quit date: 02/14/15 how long ago did patient quit smokin years ago second hand exposure: Yes alcohol intake: former details: Quit 9 years ago substance use type: does not use caffeine: Yes Type: coffee what type of physical activity do you participate in: none seatbelt use: always do you feel safe at home: Yes ROS <GAURAV Chicas - Last Filed: 07/10/23 20:50> ROS ED ROS Narrative Constitutional: Negative for fever, chills, weight loss. Positive for weakness Eyes: Negative for vision loss, vision change, double vision ENT: Negative for any sore throat, ear pain, congestion Cardiovascular: Negative for any chest pain, tightness, palpitations Respiratory: Negative for any sputum production, hemoptysis, orthopnea. Positive for cough, dyspnea, dyspnea on exertion Gastrointestinal: Negative for any abdominal pain, nausea, vomiting, diarrhea, constipation, blood in stool, blood in vomit : Negative for any urinary frequency, dysuria, retention, blood in urine Muscle skeletal: Negative for any neck pain, back pain. Positive for left knee pain Neurological: Negative for any headache, syncope, dizziness Skin: Negative for any rashes, itching, abrasions, lacerations Psychiatric: Negative for any depression, anxiety, stress, suicidal ideation, homicidal ideation Hematologic: Negative for any excessive bruising, easy bleeding EXAM <GAURAV Chicas - Last Filed: 07/10/23 20:50> Physical Exam Narrative Exam Narrative: Vital signs reviewed. HEET: Head normocephalic atraumatic, TMs clear bilaterally. Posterior pharynx is clear, moist mucous membranes. Nares clear bilaterally. Neck: Supple with no lymphadenopathy or tenderness. No signs of meningismus. Cardiac: Regular rate and rhythm no murmurs gallops or rubs, equal peripheral pulses bilaterally. Respiratory: Lungs clear to auscultation bilaterally. No chest tenderness. Abdomen: Soft, nontender, nondistended. No abdominal bruit or pulsatile masses. No hepatosplenomegaly Extremities: No peripheral edema, no signs of gross trauma or deformity. Active full range of motion of all extremities. Neuro: Cranial nerves II through XII intact, no focal neurological deficits. Skin: Clean dry and intact with no rash, purpura, petechiae, vesicles or pustules. Backs/flank: No CVA tenderness, no midline spinal tenderness, no deformity. Psych: Normal mood and affect. No SI, HI or acute psychosis. Const Vital Signs: 07/10/23 17:44 07/10/23 18:48 07/10/23 18:49 Temperature 97.8 F Temperature Source Temporal Pulse Rate 91 Respiratory Rate 20 H Respiratory Effort Respiratory Pattern Blood Pressure 102/92 H Blood Pressure Mean 95 Pulse Ox 100 99 Oxygen Delivery Method Room Air Room Air Room Air 07/10/23 18:44 07/10/23 18:51 07/10/23 19:00 Temperature Temperature Source Pulse Rate 86 84 Respiratory Rate 18 34 H Respiratory Effort Non-Labored Short of Breath Respiratory Pattern Blood Pressure 159/92 H 150/87 H Blood Pressure Mean 114 108 Pulse Ox 99 99 Oxygen Delivery Method Room Air Room Air Room Air 07/10/23 18:56 07/10/23 20:00 07/10/23 20:30 Temperature 97.9 F Temperature Source Pulse Rate 104 H 95 95 Respiratory Rate 24 H 18 24 H Respiratory Effort Respiratory Pattern Tachypnea Blood Pressure 143/87 H 137/88 H Blood Pressure Mean 105 104 Pulse Ox 98 Oxygen Delivery Method <Dr. David Valentino MD - Last Filed: 07/10/23 19:44> Physical Exam Const Vital Signs: 07/10/23 17:44 07/10/23 18:48 07/10/23 18:49 Temperature 97.8 F Temperature Source Temporal Pulse Rate 91 Respiratory Rate 20 H Respiratory Effort Respiratory Pattern Blood Pressure 102/92 H Blood Pressure Mean 95 Pulse Ox 100 99 Oxygen Delivery Method Room Air Room Air Room Air 07/10/23 18:44 07/10/23 18:51 07/10/23 19:00 Temperature Temperature Source Pulse Rate 86 84 Respiratory Rate 18 34 H Respiratory Effort Non-Labored Short of Breath Respiratory Pattern Blood Pressure 159/92 H 150/87 H Blood Pressure Mean 114 108 Pulse Ox 99 99 Oxygen Delivery Method Room Air Room Air Room Air 07/10/23 18:56 07/10/23 20:00 07/10/23 20:30 Temperature 97.9 F Temperature Source Pulse Rate 104 H 95 95 Respiratory Rate 24 H 18 24 H Respiratory Effort Respiratory Pattern Tachypnea Blood Pressure 143/87 H 137/88 H Blood Pressure Mean 105 104 Pulse Ox 98 Oxygen Delivery Method [facility] <GAURAV Chicas - Last Filed: 07/10/23 20:50> [facility] Lab Data Labs: Laboratory Results - last 24 hr 07/10/23 19:20 WBC 6.9 RBC 4.15 L Hgb 11.3 L Hct 34.3 L MCV 82.7 MCH 27.2 MCHC 32.9 RDW Std Deviation 41.2 RDW Coeff of Tad 13.7 Plt Count 292 MPV 9.5 Immature Gran % (Auto) 0.600 Neut % (Auto) 58.5 Lymph % (Auto) 27.6 [place] % (Auto) 12.1 H Eos % (Auto) 0.6 Baso % (Auto) 0.6 Absolute Neuts (auto) 4.0 Absolute Lymphs (auto) 1.89 Nucleated RBC % 0 Sodium 137 Potassium 3.5 Chloride 103 Carbon Dioxide 23.0 Anion Gap 11 BUN 11 Creatinine 1.24 Estim Creat Clear Calc 56.50 Est GFR (MDRD) Af Amer 73 Est GFR (MDRD) Non-Af 60 BUN/Creatinine Ratio 8.9 L Glucose 107 H Calcium 9.5 Troponin I High Sens 13 Radiography Diagnostic Testing: Clinical Impression(s) from Imaging Studies Chest X-Ray 07/10/23 18:10 IMPRESSION: No radiographic evidence of acute cardiopulmonary disease. Electronically Signed: Woo Lisa MD at 18:47 EDT , EKG EKG shows normal sinus rhythm: Attestation: I personally reviewed and interpreted this EKG as follows: Comments: Normal sinus rhythm, rate of 88 bpm, NH 148 ms, QRS duration 80 ms, no acute ST elevation, no acute infarct noted. Treatment and Re-Evaluation :: Differential diagnosis includes however is not limited to: Failure to thrive, COPD exacerbation, hypoxia, weakness, ACS, [place] Patient appears to be in no discomfort, patient does have some tachypnea, obvious wheezing. Patient presents to the emergency department with complaints of weakness, shortness of breath, inability to care for himself. At this time, patient will receive a workup to ensure there is no ACS, [place], emergency pathology, however patient does admit that he wants to be admitted for placement, as he cannot care for himself. Patient received a cardiac workup as well as a chest x-ray. He will be given breathing treatment as well as a prednisone. He did receive a chest x-ray that was instructed by ER physician which showed no acute process. Patient will be reevaluated after the interventions. Patient after breathing treatments did have some slight relief. Patient's laboratory values showed a chronic anemia with a hemoglobin 11.3, patient's chemistries show a normal troponin, normal kidney function, electrolytes unremarkable. Chest x-ray was negative for any acute process. At this time, I do believe the patient needs to be admitted to the hospital for failure to thrive, fall risk, cannot take care of himself. Patient also diagnosed with COPD exacerbation. Patient will be admitted to the hospital. Patient stable. <Dr. David Valentino MD - Last Filed: 07/10/23 19:44> MDM MDM Narrative Medical decision making narrative: I have personally performed a face to face assessment of the patient and have reviewed the LOPEZ Note. I performed a substantive portion of the visit including all aspects of the following. My strat[place] findings include: History is [73-year-old male on blood thinner Eliquis. States he feels short of breath and has had falls at home. Denies any head injury. He would like to be admitted and placed in a longterm.] Exam is [well-appearing 73-year-old male. Vital signs stable afebrile. H EENT exam unremarkable. Neck nontender no JVD. Lungs few scattered expiratory wheezes. No rales or rhonchi. No distress. Pulse ox 100% on room air no signs hypoxia. Heart regular rate and rhythm no murmur. Abdomen soft nontender. Moving all 4 extremities. Calves are nontender that edema nor cords. Patient is awake and alert. No focal motor deficits.] Medical Decision Making [elderly male short of breath suspect exacerbation of COPD. He will be admitted for longterm placement. Screening labs chest x- ray will be obtained.] Other additions or changes: [None] History & Record Review Discussion w/independent historian: Patient Additional record(s) reviewed:: Prior inpatient record, Prior outpatient record, Prior ED visit, Prior labs and No prior records Lab Data Attestation: I reviewed the patient's lab results. Labs: Laboratory Results - last 24 hr 07/10/23 19:20 WBC 6.9 RBC 4.15 L Hgb 11.3 L Hct 34.3 L MCV 82.7 MCH 27.2 MCHC 32.9 RDW Std Deviation 41.2 RDW Coeff of Tad 13.7 Plt Count 292 MPV 9.5 Immature Gran % (Auto) 0.600 Neut % (Auto) 58.5 Lymph % (Auto) 27.6 [place] % (Auto) 12.1 H Eos % (Auto) 0.6 Baso % (Auto) 0.6 Absolute Neuts (auto) 4.0 Absolute Lymphs (auto) 1.89 Nucleated RBC % 0 Sodium 137 Potassium 3.5 Chloride 103 Carbon Dioxide 23.0 Anion Gap 11 BUN 11 Creatinine 1.24 Estim Creat Clear Calc 56.50 Est GFR (MDRD) Af Amer 73 Est GFR (MDRD) Non-Af 60 BUN/Creatinine Ratio 8.9 L Glucose 107 H Calcium 9.5 Troponin I High Sens 13 Radiography Chest X-Ray - ED: 1 View, Read by ED Physician, Read by Radiologist, Normal, Heart, Lungs, Mediastinum, Bony Structures, No Acute Disease and Chronic Changes Diagnostic Testing: Clinical Impression(s) from Imaging Studies Chest X-Ray 07/10/23 18:10 IMPRESSION: No radiographic evidence of acute cardiopulmonary disease. Electronically Signed: Woo Lisa MD at 18:47 EDT , Chest x-ray, portable, single view interpreted by myself and radiologist shows no acute abnormality. Chronic changes. No effusions or CHF. Discharge Plan Dx/Rx/DC Orders Clinical Impression: Adult failure to thrive, COPD exacerbation Disposition Disposition: Acute Care [facility]
[2023-07-10] MEDS: Albuterol 2.5 MG/3 ML VIAL.NEB. INHALATION (18:56)
[2023-07-10] MEDS: Ipratropium/Albuterol Sulfate 3 ML AMPUL.NEB INHALATION (18:56)
--- NOTE | 2023-07-10 19:17 | CPS ---
x1 Albuterol given to pt. in ER as well
[2023-07-10] MEDS: predniSONE 20 MG Tablet 60 MG PO (19:34)
[2023-07-10 19:38] LABS: Absolute Lymphocyte Count 1.89 X10^3/uL (0.83-4.51); Basophil# 0.04 X10^3/uL; Basophil% 0.6 % (0-1); Eosinophil# 0.04 X10^3/uL; Eosinophils% 0.6 % (0-5); Hematocrit 34.3 % (40-54); Hemoglobin 11.3 g/dL (13.0-16.5); Lymphocyte # 1.89 X10^3/ul (0.83-4.51); Lymphocyte % 27.6 % (19-41); Mean Corp Hgb Conc 32.9 g/dL (32-36); Mean Corpuscular Hgb 27.2 pg (27.0-32.0); Mean Corpuscular Volume 82.7 fL (80-94); Mean Platelet Vol. 9.5 fl (6.2-12.0); Monocyte# 0.83 X10^3/uL; Monocyte% 12.1 % (0-10); NRBC Flagged by Analyzer 0 % (0-5); Neutrophil # 4.02 X10^3/uL (2.7-7.7); Neutrophil % 58.5 % (47-70); Platelet Count 292 K/mm3 (150-450); RBC Distribution Width CV 13.7 % (11.6-14.6); RBC Distribution Width SD 41.2 fl (35.1-43.9); Red Blood Count 4.15 M/mm3 (4.6-6.2); White Blood Count 6.9 K/mm3 (4.4-11.0)
[2023-07-10 19:57] LABS: Anion Gap 11 (5-15); BUN 11 mg/dL (7-18); BUN/Creat Ratio 8.9 RATIO (10-20); Calcium,Total 9.5 mg/dL (8.5-10.1); Chloride 103 mmol/L (98-107); Creatinine, Serum 1.24 mg/dL (0.70-1.30); EST Glomerular Filtration Rate 60 mL/min (>60); Est Glom Filt Rate - Afr Amer 73 mL/min (>60); Glucose 107 mg/dL (74-106); Potassium 3.5 mmol/L (3.5-5.1); Sodium Level 137 mmol/L (136-145); Troponin-I HS 13 pg/mL (3.0-78.0)
--- NOTE | 2023-07-10 20:29 | HP.PCM.HOS_ITS ---
HPI - General General Date of Admission: 07/10/23 Date of Service: 07/10/23 Chief Complaint: Adult failure to thrive, mild shortness of breath HPI Narrative LILLIAN GUERRERO, is a 73 M who presented to [facility] ED on 07/10/2023 with worsening weakness at home and mild shortness of breath. Patient seen at bedside on the floor shortly after arriving over the ED. Patient was laying fairly comfortably in bed, in no acute distress. He was alert and oriented and answering questions appropriately for me. Patient states that he lives alone at home. Has a history of debility and has been using both a cane and a 4-point walker as needed around the home for ambulation. He had a fall while using his cane on 07/04 with resultant left knee pain and came to the ED here for further evaluation. He notably follows with Dr. Cohn with orthopedics for OA of the left knee. X-ray was negative and on exam the ED physician had low concern for significant tendon or ligament rupture. Patient was provided with a knee immobilizer and discharged home. He saw Dr. Cohn in the office on 07/09. Was noted that he may be a candidate for total knee arthroplasty but he had an Euflexxa injection on 06/03 and typically surgery should not be done until 3 months later. Patient also noted that he felt very debilitated and unable to take care of himself at home. Patient follows with a medical case worker and reached out to him, and he recommended come to the hospital for admission and residential placement. Patient does have a history of mild COPD, was previously smoker but quit about 15 years ago. He uses his long-acting inhalers regularly and the short acting inhalers up to 4-5 times daily. Does not feel that he gets much relief with the short acting inhalers. Patient did have mild increased work of breathing on room air during our encounter and did sound moderately wheezy in the upper airways. He denies any other acute con cerns that time. [facility] Medical History Acromioclavicular joint arthritis Alcohol use Ambulates with cane Anxiety Arthritis Asthma Atherosclerotic heart disease of [place] coronary artery without angina pectoris Back pain Bipolar disorder BPH (benign prostatic hyperplasia) Brachial neuritis (05/31/11) Cannabis dependence Cardiology follow-up encounter Cervical radiculitis Cervical spondylosis Chest pain Chest tightness Chronic obstructive lung disease (08/02/20) Chronic pain Complete rotator cuff tear Congestive heart failure (CHF) COPD (chronic obstructive pulmonary disease) CPAP (continuous positive airway pressure) dependence DDD (degenerative disc disease) Dementia Dementia Depression Diabetes Dietary restriction Displacement of lumbar intervertebral disc without myelopathy (03/01/11) Dyspnea on exertion Emphysema, unspecified Essential (primary) hypertension Essential hypertension (08/02/20) Fatigue Former smoker GERD (gastroesophageal reflux disease) High cholesterol History of CHF (congestive heart failure) History of echocardiogram History of IBS History of irregular heartbeat History of pain when walking History of pulmonary embolism History of stress test Hyperlipidemia Hypertension Irregular heart beat Kidney disease Low back pain (03/01/11) Lung nodule < 6cm on CT Malaise and fatigue (08/02/20) Marijuana use Migraines Myocardial infarct Neck pain (03/01/11) Neck sprain (03/01/11) Orthopnea MONIQUE (obstructive sleep apnea) Osteoarthritis of left knee Pain of left knee and lower leg Partial tear of right rotator cuff Peptic ulcer disease Pleurisy PND (paroxysmal nocturnal dyspnea) Prostate disease Pulmonary embolism PVCs (premature ventricular contractions) Restless leg syndrome Rheumatoid arthritis Schizophrenia Shortness of breath on exertion Shoulder impingement SLAP tear of shoulder Sleep apnea Smoking greater than 40 pack years Stage 2 moderate COPD by GOLD classification Syncope and collapse Trigger finger Ventral hernia, recurrent Wears glasses Wheezing Home Medications ropinirole 0.5 mg tablet 0.5 mg PO QHS RESTLESS LEGS 04/23/16 [History Last Taken 07/09/23] tamsulosin 0.4 mg capsule 0.4 mg PO QHS PROSTATE 01/30/17 [History Last Taken 07/09/23] omeprazole 40 mg capsule,delayed release 40 mg PO DAILY GERD 07/30/19 [History Last Taken 07/09/23] aripiprazole 10 mg tablet (Abilify) 10 mg PO DAILY ANXIETY 11/09/20 [History Last Taken 07/09/23] baclofen 10 mg tablet 10 mg PO TID PAIN 11/09/20 [History Last Taken 07/09/23] icosapent ethyl 1 gram capsule (Vascepa) 2 g PO BID HEART 11/09/20 [History Last Taken 07/09/23] donepezil 10 mg tablet 10 mg PO DAILY ALZHEIMERS 10/23/21 [History Last Taken 07/09/23] lamotrigine 200 mg tablet (Lamictal) 200 mg PO DAILY MOOD 10/23/21 [History Last Taken 07/09/23] olanzapine 10 mg tablet (Zyprexa) 10 mg PO QHS MOOD 10/23/21 [History Last Taken 07/09/23] acetaminophen 500 mg tablet 1,000 mg PO Q6H PRN Pain 05/28/22 [History Last Taken 07/09/23] fenofibrate 54 mg tablet 54 mg PO DAILY CHOLESTEROL #90 tabs 09/13/22 [Rx Last Taken 07/09/23] clopidogrel 75 mg tablet 75 mg PO DAILY BLOOD THINNER #30 tabs 01/03/23 [Rx Last Taken 07/09/23] budesonide 160 mcg-glycopyr 9 mcg-formot 4.8 mcg/actuation HFA inhaler (Breztri Aerosphere) 2 inh inhalation BID COPD #10.7 grams 01/28/23 [Rx Last Taken 07/09/23] Lactobacillus acidophilus 75 million cell-pectin 100 mg capsule (Acidophilus- Pectin) 1 cap PO DAILY GUT HEALTH 04/15/23 [History Last Taken 07/10/23] budesonide 3 mg capsule,delayed,extended release 3 mg PO TID CROHNS DISEASE 04/15/23 [History Last Taken 07/09/23] dicyclomine 20 mg tablet 20 mg PO 4X/DAY IRRITABLE BOWELS 04/15/23 [History Last Taken 07/09/23] fexofenadine 180 mg tablet 180 mg PO DAILY ALLERGIES 04/15/23 [History Last Taken 07/09/23] hydrocodone-acetaminophen 5-325mg 5mg-325mg 1 tab PO BID PAIN 04/15/23 [History Last Taken 07/09/23] ondansetron 4 mg disintegrating tablet 4 mg PO TID PRN NAUSEA 04/15/23 [History Last Taken 07/09/23] potassium chloride 20 mEq tablet,extended release(part/cryst) 20 meq PO DAILY SUPPLEMENT 04/15/23 [History Last Taken 07/09/23] rifaximin 550 mg tablet (Xifaxan) 550 mg PO TID DIARRHEA 04/15/23 [History Last Taken 07/09/23] trazodone 150 mg tablet 150 mg PO DAILY SLEEP 04/15/23 [History Last Taken 07/09/23] losartan 25 mg tablet 25 mg PO BID BLOOD PRESSURE #180 tabs 04/28/23 [Rx Last Taken 07/09/23] nitroglycerin 0.4 mg sublingual tablet (Nitrostat) 0.4 mg sublingual Q5-15M PRN chest pain #25 tabs 06/16/23 [Rx Last Taken Unknown] atorvastatin 40 mg tablet 40 mg PO QHS CHOLESTEROL #90 tabs 06/24/23 [Rx Last Taken 07/09/23] albuterol sulfate 2.5 mg/3 mL (0.083 %) solution for nebulization 2.5 mg inhalation Q8H PRN shortness of breath or wheezing 07/10/23 [History Last Taken 07/09/23] albuterol sulfate 90 mcg/actuation aerosol inhaler 2 puff inhalation Q6H PRN Shortness Of Breath 07/10/23 [History Last Taken 07/09/23] apixaban 5 mg tablet (Eliquis) 5 mg PO BID 07/10/23 [History Last Taken 07/09/23] desvenlafaxine succinate 100 mg tablet,extended release 24 hr 100 mg PO DAILY 07/10/23 [History Last Taken 07/09/23] mesalamine 0.375 gram capsule,extended release 24 hr 1.5 g PO DAILY 07/10/23 [History Last Taken Unknown] Allergy/AdvReac Type Severity Reaction Status Date / Time Quinolones Allergy Unknown unknown Verified 07/10/23 17:49 aspirin Allergy Itching, Verified 07/10/23 17:49 Hives levofloxacin [From Levaquin] Allergy Hives, Verified 07/10/23 17:49 Itching Penicillins Allergy Hives, Verified 07/10/23 17:49 Itching Family History Mother CAD (coronary artery disease) Sister Diabetes Surgical History H/O cervical spine surgery H/O left knee surgery H/O ventral hernia repair History of appendectomy History of coronary artery stent placement (10/16/18) History of laparoscopic cholecystectomy History of left heart catheterization (04/2016) Hx of repair of right rotator cuff (06/04/22) S/P right rotator cuff repair Social History household members: none housing: house current occupational status: disabled Smoking Status: Former smoker quit date: 02/14/15 how long ago did patient quit smokin years ago second hand exposure: Yes alcohol intake: former details: Quit 9 years ago substance use type: does not use caffeine: Yes Type: coffee what type of physical activity do you participate in: none seatbelt use: always do you feel safe at home: Yes ROS Constitutional Constitutional: Reports weakness; Denies chills, fatigue or fever(s) Cardiovascular Cardiovascular: Denies chest pain Respiratory/Chest Respiratory/Chest: Reports wheezing; Denies cough or productive cough Gastrointestinal Gastrointestinal: Denies abdominal pain Musculoskeletal Musculoskeletal: Reports joint pain Neurologic Neurologic: Reports abnormal gait; Denies dizziness or focal weakness Vital Signs Vital Signs Vital Signs: 07/10/23 17:44 07/10/23 18:48 07/10/23 18:49 Temperature 97.8 F Temperature Source Temporal Pulse Rate 91 Respiratory Rate 20 H Respiratory Effort Respiratory Pattern Blood Pressure 102/92 H Blood Pressure Mean 95 Pulse Ox 100 99 Oxygen Delivery Method Room Air Room Air Room Air 07/10/23 18:44 07/10/23 18:51 07/10/23 19:00 Temperature Temperature Source Pulse Rate 86 84 Respiratory Rate 18 34 H Respiratory Effort Non-Labored Short of Breath Respiratory Pattern Blood Pressure 159/92 H 150/87 H Blood Pressure Mean 114 108 Pulse Ox 99 99 Oxygen Delivery Method Room Air Room Air Room Air 07/10/23 18:56 07/10/23 20:00 Temperature Temperature Source Pulse Rate 104 H 95 Respiratory Rate 24 H 18 Respiratory Effort Respiratory Pattern Tachypnea Blood Pressure 143/87 H Blood Pressure Mean 105 Pulse Ox Oxygen Delivery Method Weight Weight: 83 kg Body Mass Index (BMI) 24.7 Physical Exam Const alert, oriented x3, no apparent distress, average body habitus, healthy appearing and well nourished General Appearance: cooperative, comfortable, well kempt and well developed HEENT normocephalic, head/scalp atraumatic, hearing grossly normal bilaterally, nasal mucous membranes and turbinates normal and moist oral mucous membranes Eyes PERRL, EOMs intact bilaterally and conjunctivae normal Neck full ROM, no lymphadenopathy and supple Lymph Lymphatic: no lymphadenopathy noted Chest inspection of chest normal Resp Resp Narrative: Mild increased work of breathing on room air noted. Mild to moderate wheezing in bilateral upper airways. Otherwise good air movement throughout, no crackles noted. Cardio regular rate, regular rhythm, no murmurs and peripheral pulses 2+ throughout GI normal to inspection, nondistended, normoactive bowel sounds, soft to palpation, non-tender and non-distended Back/Spine normal ROM Extremity Extremity Narrative: Left knee with brace in place. No gross abnormalities on visual exam. Skin no rashes or lesions noted Neuro moves all extremities and no focal motor deficits Speech: speech normal Psych mental status grossly normal Results Lab / Micro Data 07/10/23 19:20 07/10/23 19:20 Labs: Laboratory Results - last 24 hr 07/10/23 19:20: WBC 6.9, RBC 4.15 L, Hgb 11.3 L, Hct 34.3 L, MCV 82.7, MCH 27.2, MCHC 32.9, RDW Std Deviation 41.2, RDW Coeff of Tad 13.7, Plt Count 292, MPV 9.5, Immature Gran % (Auto) 0.600, Neut % (Auto) 58.5, Lymph % (Auto) 27.6, [place] % (Auto) 12.1 H, Eos % (Auto) 0.6, Baso % (Auto) 0.6, Absolute Neuts (auto) 4.0, Absolute Lymphs (auto) 1.89, Nucleated RBC % 0, Sodium 137, Potassium 3.5, Chloride 103, Carbon Dioxide 23.0, Anion Gap 11, BUN 11, Creatinine 1.24, Estim Creat Clear Calc 56.50, Est GFR (MDRD) Af Amer 73, Est GFR (MDRD) Non-Af 60, BUN/Creatinine Ratio 8.9 L, Glucose 107 H, Calcium 9.5, Troponin I High Sens 13 Imaging Radiology Impression Chest X-Ray 07/10/23 18:10 IMPRESSION: No radiographic evidence of acute cardiopulmonary disease. Electronically Signed: Woo Lisa MD at 18:47 EDT , Assessment & Plan Assessment/Plan (1) COPD exacerbation: (2) Adult failure to thrive: PLAN: Plan Patient is a 73-year-old male who presented to [facility] ED on 07/10/2023 with worsening weakness and mild shortness of breath. 1. Acute on chronic debility with falls at home, left knee OA with worsening pain, chronic right shoulder pain ? Admit under inpatient status to [facility]. PT/OT/case management consulted. Pain control with scheduled Tylenol, lidocaine patches to left knee and right shoulder, oxycodone 5 mg every 6 hours as needed. 2. Mild COPD/asthma exacerbation ? Chest x-ray on admit nonacute and satting well on room air but did have mild to moderate upper airway wheezing noted. Will treat with scheduled DuoNebs and prednisone 40 mg daily for now. Continue home long-acting inhalers. Respiratory PCR panel ordered. 3. Recent history of PE ? Diagnosed during recent admission in March. Continue home Eliquis. Chronic medical conditions: ? CAD/HTN/HPL: Continue home atorvastatin, fenofibrate, Plavix, losartan. ? BPH with obstructive symptoms: Continue home Flomax. ? RLS: Continue home ropinirole. ? Crohn's disease/IBS/chronic diarrhea: Continue home budesonide, mesalamine, Xifaxan. ? GERD: Continue home PPI. ? Mild cognitive impairment: Continue home donepezil. ? Mood disorder/insomnia: Continue home aripiprazole, olanzapine, desvenlafaxine, Lamictal, trazodone. ? Allergies: Continue home fexofenadine. DVT prophylaxis: Eliquis CODE STATUS: Full code, verified Expected disposition: SNF, TBD Total clinical time spent by myself addressing the patient's medical issues, reviewing all the data, and collaborating with patient's care team: 55 minutes. Charges/Coding Visit Charges Inpatient E&M: 39185 Init Hosp L2
[2023-07-10 21:00] LABS: Color, Urine Yellow (Yellow); Glucose, Dipstick Normal (Normal); Ketone-Dipstick 5 mg/dl (Negative); Leukocyte Esterase-Dipstick 25 /ul (Negative); Nitrite-Dipstick Negative (Negative); Occult Blood-Urine Negative /ul (Negative); Protein-Dipstick 15 mg/dl (Negative); Red Blood Cells-Urine 0 SEEN /hpf (0-5); Squamous Epithelial Cells - UA 0 SEEN /hpf (0-5); Urine Bilirubin Dipstick Negative (Negative); Urine Clarity Clear (Clear); Urine Urobilinogen Normal (Normal)
[2023-07-10 21:57] LABS: Bacteria RARE /hpf (None Seen); Mucous, Urine RARE /hpf (<or=2+); White Blood Cells 0-5 SEEN /hpf (0-5)
[2023-07-10] MEDS: HYDROcodone Bitartrate/Apap 5/325 Tablet PO (23:46)
[2023-07-10] MEDS: Dicyclomine 10 MG Capsule 20 MG PO (23:47)
[2023-07-10] MEDS: Losartan Potassium 25 MG Tablet PO (23:48)
[2023-07-10] MEDS: APIXABAN 5 MG TABLET PO (23:48)
[2023-07-10] MEDS: Tamsulosin HCl 0.4 MG Capsule PO (23:49)
[2023-07-10] MEDS: Baclofen 10 MG Tablet PO (23:49)
[2023-07-10] MEDS: Atorvastatin Calcium 40 MG Tablet PO (23:49)
[2023-07-10] MEDS: Pramipexole Di-HCl 0.25 MG Tablet PO (23:51)
[2023-07-10] MEDS: rifAXIMin 550 MG Tablet PO (23:51)
[2023-07-10] MEDS: OLANZapine 10 MG Tablet PO (23:52)
[2023-07-10] MEDS: traZODone 50 MG Tablet 150 MG PO (23:52)
[2023-07-11] VITALS (9 sets, daily range): BP systolic 98–138; BP diastolic 61–74; PULSE 69–89; RESP 17–20; TEMP 36.2–37.2; O2SAT 94–99
[2023-07-11] MEDS: Baclofen 10 MG Tablet PO ×2 (04:53→15:12)
[2023-07-11] MEDS: rifAXIMin 550 MG Tablet PO ×2 (04:53→15:12)
[2023-07-11] MEDS: Acetaminophen 500 MG Tablet 1000 MG PO ×2 (04:53→15:16)
[2023-07-11 06:23] LABS: Hematocrit 33.5 % (40-54); Hemoglobin 10.9 g/dL (13.0-16.5); Mean Corp Hgb Conc 32.5 g/dL (32-36); Mean Corpuscular Hgb 27.4 pg (27.0-32.0); Mean Corpuscular Volume 84.2 fL (80-94); Mean Platelet Vol. 9.4 fl (6.2-12.0); Platelet Count 302 K/mm3 (150-450); RBC Distribution Width CV 13.4 % (11.6-14.6); RBC Distribution Width SD 41.9 fl (35.1-43.9); Red Blood Count 3.98 M/mm3 (4.6-6.2); White Blood Count 3.4 K/mm3 (4.4-11.0)
[2023-07-11] MEDS: Ipratropium/Albuterol Sulfate 3 ML AMPUL.NEB INHALATION ×3 (07:12→19:21)
[2023-07-11 07:16] LABS: Anion Gap 6 (5-15); BUN 12 mg/dL (7-18); BUN/Creat Ratio 10.4 RATIO (10-20); Calcium,Total 8.8 mg/dL (8.5-10.1); Chloride 108 mmol/L (98-107); Creatinine, Serum 1.15 mg/dL (0.70-1.30); EST Glomerular Filtration Rate 66 mL/min (>60); Est Glom Filt Rate - Afr Amer 80 mL/min (>60); Estimated Creatinine Clearance 60.92 ml/min; Glucose 152 mg/dL (74-106); Potassium 4.4 mmol/L (3.5-5.1); Sodium Level 137 mmol/L (136-145)
[2023-07-11] MEDS: predniSONE 20 MG Tablet 40 MG PO (08:38)
[2023-07-11] MEDS: Venlafaxine XR 75 MG Capsule PO (08:39)
[2023-07-11] MEDS: Pantoprazole Sodium 40 MG Tablet PO (08:39)
[2023-07-11] MEDS: ARIPiprazole 10 MG Tablet PO (08:40)
[2023-07-11] MEDS: lamoTRIgine 100 MG Tablet 200 MG PO (08:40)
[2023-07-11] MEDS: Lactobacillis Acidophilus 1 CAP PO (08:40)
[2023-07-11] MEDS: APIXABAN 5 MG TABLET PO (08:40)
[2023-07-11] MEDS: Donepezil HCl 10 MG Tablet PO (08:41)
[2023-07-11] MEDS: Dicyclomine 10 MG Capsule 20 MG PO ×3 (08:41→18:30)
[2023-07-11] MEDS: Budesonide 3 MG CAPSULE.EC 9 MG PO (08:41)
[2023-07-11] MEDS: Mesalamine 1.2 GM Tablet PO (08:42)
[2023-07-11] MEDS: Lidocaine 5% Patch 2 PATCH TOPICAL (08:42)
[2023-07-11] MEDS: Ensure Plus High Protein 120 ML LIQUID PO (08:42)
[2023-07-11] MEDS: Loratadine 10 MG Tablet PO (08:42)
[2023-07-11] MEDS: Losartan Potassium 25 MG Tablet PO (08:42)
[2023-07-11] MEDS: Clopidogrel Bisulfate 75 MG Tablet PO (08:43)
[2023-07-11] MEDS: Fenofibrate 48 MG Tablet PO (08:43)
--- NOTE | 2023-07-11 09:55 | PCM.PN.HOSP ---
Reason for Visit Reason for Visit: Shortness of breath/debility Subjective Subjective Mr. Monteiro is a 73-year-old white male who presented to emergency department at [facility] with worsening debility and mild shortness of breath. He lives at home alone and had a recent admission here early in March at which time he was diagnosed with a PE. He was able to go home at that time however since then he has been using both canes to ambulate as well as a 4 point walker. He has had falls at home with the most recent fall being on 420 and had worsening left knee pain. He follows with Dr. Dennis with orthopedics for chronic osteoarthritis of the left knee and after that fall he was seen in the emergency department. There was concern for tendon rupture and the patient was provided with a knee immobilizer and discharged home. He was seen in Dr. Dennis's office on 425 and it was noted that time that he may be a candidate for total knee arthroplasty but he had an Euflexxa injection on 06/03 and typically surgery should not be done until 3 months later. Since his fall he has been having worsening debility and unable to care for himself at home. He follows with the case work aide as an outpatient and reached out to him and they recommended coming to the hospital for further evaluation and possible shelter placement if deemed appropriate. With regards to his shortness of breath he does have some mild wheezing on presentation has a history of COPD but no longer uses tobacco and is not oxygen dependent at baseline. Vital signs on presentation were unremarkable and oxygen saturations were 100% on room air. His CBC showed baseline stable mild anemia but was otherwise unremarkable. His chemistry panel was unremarkable. His troponin was normal at 13. UA showed no signs of infection. Patient indicates he is just not able to take care of himself at home and as he is too weak and having too much pain in his left knee. Wants to have his knee replacement and his right shoulder placement done in the future once his permissible. Objective Data Objective Data Vital Signs: Vital Signs Temp Pulse Resp BP Pulse Ox O2 Del Method 97.2 F L 89 17 118/69 99 Room Air 07/11/23 04:48 07/11/23 07:13 07/11/23 07:13 07/11/23 04:48 07/11/23 07:15 07/11/23 07:15 Oxygen Delivery Method Room Air Weight: 79.8 kg Body Mass Index (BMI) 23.8 Intake & Output: Intake and Output for Last 24 Hours 07/09/23 07/10/23 07/11/23 23:59 23:59 23:59 Intake Total 100 / 100 Output Total 1500 / 1500 Balance -1400 / -1400 Lab / Micro Data 07/11/23 06:00 07/11/23 06:00 Labs: Laboratory Results - last 24 hr 07/10/23 19:20: WBC 6.9, RBC 4.15 L, Hgb 11.3 L, Hct 34.3 L, MCV 82.7, MCH 27.2, MCHC 32.9, RDW Std Deviation 41.2, RDW Coeff of Tad 13.7, Plt Count 292, MPV 9.5, Immature Gran % (Auto) 0.600, Neut % (Auto) 58.5, Lymph % (Auto) 27.6, [place] % (Auto) 12.1 H, Eos % (Auto) 0.6, Baso % (Auto) 0.6, Absolute Neuts (auto) 4.0, Absolute Lymphs (auto) 1.89, Nucleated RBC % 0, Sodium 137, Potassium 3.5, Chloride 103, Carbon Dioxide 23.0, Anion Gap 11, BUN 11, Creatinine 1.24, Estim Creat Clear Calc 56.50, Est GFR (MDRD) Af Amer 73, Est GFR (MDRD) Non-Af 60, BUN/Creatinine Ratio 8.9 L, Glucose 107 H, Calcium 9.5, Troponin I High Sens 13 07/10/23 20:58: Urine Color Yellow, Urine Clarity Clear, Urine pH 6.0, Ur Specific [place] 1.010, Urine Protein 15 H, Urine Glucose (UA) Normal, Urine Ketones 5 H, Urine Occult Blood Negative, Urine Nitrite Negative, Urine Bilirubin Negative, Urine Urobilinogen Normal, Ur Leukocyte Esterase 25 H, Urine RBC 0 SEEN, Urine WBC 0-5 SEEN, Ur Squamous Epith Cells 0 SEEN, Urine Bacteria RARE, Urine Mucus RARE 07/11/23 06:00: WBC 3.4 L, RBC 3.98 L, Hgb 10.9 L, Hct 33.5 L, MCV 84.2, MCH 27.4, MCHC 32.5, RDW Std Deviation 41.9, RDW Coeff of Tad 13.4, Plt Count 302, MPV 9.4, Sodium 137, Potassium 4.4, Chloride 108 H, Carbon Dioxide 23.0, Anion Gap 6, BUN 12, Creatinine 1.15, Estim Creat Clear Calc 60.92, Est GFR (MDRD) Af Amer 80, Est GFR (MDRD) Non-Af 66, BUN/Creatinine Ratio 10.4, Glucose 152 H, Calcium 8.8 Radiography Diagnostic Testing: Radiology Impression Chest X-Ray 07/10/23 18:10 IMPRESSION: No radiographic evidence of acute cardiopulmonary disease. Electronically Signed: Woo Lisa MD at 18:47 EDT , Physical Exam Const alert, oriented x3, no apparent distress and average body habitus; Negative for healthy appearing or well nourished Constitutional Narrative: Older, white male, lying in bed, appears comfortable, looks older than stated age, thin, nontoxic HEENT head/scalp atraumatic and moist oral mucous membranes HEENT Narrative: Dentition is poor, Mallampati is 2, no thrush, temporal wasting is present Head and Scalp: normocephalic Resp normal respiratory effort, no retractions, no use of accessory muscles and clear to auscultation bilaterally Resp Narrative: Diffusely diminished-wheezing has resolved Auscultation: Negative for rales, rhonchi or wheezes Cardio regular rate, regular rhythm, S1 normal heart sound, S2 normal heart sound, no murmurs, no rub, no gallops and no clicks GI normal to inspection, nondistended, normoactive bowel sounds, soft to palpation and non-tender GI Narrative: Abdomen is scaphoid Extremity no clubbing, cyanosis or edema Extremity Narrative: Decreased lean muscle mass Neuro oriented x3, moves all extremities and no focal motor deficits Neuro Narrative: Generalized weakness-proximal greater than distal without focal deficits Speech: speech normal Psych affect normal Psych Narrative: Eye contact is good, patient interacts appropriately Assessment & Plan Assessment/Plan (1) COPD exacerbation: (2) Adult failure to thrive: (3) Localized osteoarthritis of right knee: (4) Generalized weakness: (5) Severe malnutrition: PLAN: Plan Generalized weakness/debility/falls secondary to severe knee osteoarthritis/medical comorbidities/chronic pain -Patient uses a cane predominantly to walk but does have a walker at home -Suspect that he may need a walker more consistently -PT/OT consultation -Case management/social work consultation -Highly suspect patient will need placement -Plan is for total knee arthroplasty in the future to help with his knee issues which are directly related to his debility however he had an Euflexxa injection on 06/03 and typically surgery should not be done until 3 months later -Follows with Dr. Cohn -Continue scheduled Tylenol -Continue lidocaine patch -Continue oxycodone as needed every 6 hours -Avoid NSAIDs Acute exacerbation of COPD -Patient short of breath on admission with good saturations but wheezing was noted -Patient is stable on room air at 99% -Continue inhalers -Respiratory viral panel was unremarkable -Continue prednisone 40 mg daily and will discharge with a taper -Suspect some of this may be anxiety driven Severe malnutrition -Dietitian is following -Supplements added History of pulmonary embolism -Diagnosed in March 2023 -Continue home Eliquis Moderate persistent asthma/COPD stage II -Continue home inhalers -Stable on room air CAD/HTN/HPL -Continue home Plavix -Continue home atorvastatin -Continue home fenofibrate -Hold Vascepa as it is nonformulary -Continue home losartan BPH with obstruction -Continue home Flomax Restless leg syndrome -Continue home Requip Chronic diarrhea -Continue home rifaximin -Continue home mesalamine Crohn's disease/IBS -Continue home budesonide -Continue home Bentyl foods -Continue outpatient follow-up GERD -Continue home PPI Mild cognitive impairment -Continue home donepezil Schizophrenia/mood disorder NOS -Continue home aripiprazole -Continue home Zyprexa -Continue home desvenlafaxine -Continue home Lamictal -Continue home trazodone Chronic pain -Continue home baclofen -Hold home [place] as we are giving acetaminophen and oxycodone while hospitalized Chronic allergies -Continue home fexofenadine Restless leg syndrome -Continue home ropinirole DVT prophylaxis -Patient on full anticoagulation for newly diagnosed PE CODE STATUS -Full code as verified at admission Charges/Coding Visit Charges Inpatient E&M: 58163 Subs Hosp L2
[2023-07-11] MEDS: HYDROcodone Bitartrate/Apap 5/325 Tablet PO (10:55)
--- NOTE | 2023-07-11 11:15 | CASEMGMT ---
Discharge Planning A list of?SNF providers including quality and resource use data and consistent with the patient's preferred geographic region, medical needs, and insurance network was created in [facility] Guide.? This list was provided to the SW. Damaris Cassidy Discharge Planning Asst.
--- NOTE | 2023-07-11 12:47 | CASEMGMT ---
Social Work Referral sent to [facility], per pt's request. RAYA Yoo, gave pt SNF list from [facility] of residential facilities in network w/insurance, in pt's preferred geographic area, and complete w/quality and resource use data in the event pt is not accepted at [facility] and additional choices are needed. SUMMER LovingS
--- NOTE | 2023-07-11 15:11 | CASEMGMT ---
Social Work SW called [facility], message left letting them know that a referral was sent via [facility], as [facility] JOCE Loving
--- NOTE | 2023-07-11 15:51 | CHAPLAIN ---
Type of Pastoral Visit _x__ Initial Visit ___ Follow-up Visit ___ On-call Visit ___ General Patient Visit ___ Spiritual Assessment ___ Family Conference ___ Bereavement ___ Rapid Response ___ Code Blue ___ Other (describe below) Pastoral Care Referral From _x__ Patient ___ Family ___ Nurse ___ Physician ___ Inside Outside Sales Representative ___ Customs Import Specialist ___ Other (describe below) Sacrament/Intervention _x__ Active listening ___ Anointing ___ Buddhist ___ Bereavement ___ Communion ___ Kelsey exploration ___ ___ Life review _x__ Prayer ___ Reconciliation ___ Sacrament of Sick ___ Supportive presence ___ Wedding ___ Other (describe below) Pastoral Comments patient has been seen recently in the hospital; pt gives update on his health and explains he needs knee and shoulder surgery but must gain in strength and health first; pt expects to go to SNF for rehab and is okay with the plan; pt asks for a prayer and indicates no further needs
[2023-07-12] VITALS (7 sets, daily range): BP systolic 98–132; BP diastolic 61–67; PULSE 84–98; RESP 16–20; TEMP 36.6–36.9; O2SAT 90–95
[2023-07-12] MEDS: Acetaminophen 500 MG Tablet 1000 MG PO ×3 (00:50→21:33)
[2023-07-12] MEDS: HYDROcodone Bitartrate/Apap 5/325 Tablet PO ×3 (00:55→21:33)
[2023-07-12] MEDS: traZODone 50 MG Tablet 150 MG PO ×2 (00:55→21:30)
[2023-07-12] MEDS: Atorvastatin Calcium 40 MG Tablet PO ×2 (00:55→21:32)
[2023-07-12] MEDS: APIXABAN 5 MG TABLET PO ×3 (00:56→21:32)
[2023-07-12] MEDS: OLANZapine 10 MG Tablet PO ×2 (00:56→21:34)
[2023-07-12] MEDS: rifAXIMin 550 MG Tablet PO ×4 (00:56→21:34)
[2023-07-12] MEDS: Baclofen 10 MG Tablet PO ×4 (00:57→21:32)
[2023-07-12] MEDS: Pramipexole Di-HCl 0.25 MG Tablet PO ×2 (00:57→21:32)
[2023-07-12] MEDS: Tamsulosin HCl 0.4 MG Capsule PO ×2 (00:57→21:32)
[2023-07-12] MEDS: Dicyclomine 10 MG Capsule 20 MG PO ×5 (00:58→21:29)
[2023-07-12] MEDS: Losartan Potassium 25 MG Tablet PO ×3 (00:58→21:30)
[2023-07-12] MEDS: 0.9% Saline Lock 10 ML Syringe IV ×2 (01:04→21:29)
[2023-07-12] MEDS: Ipratropium/Albuterol Sulfate 3 ML AMPUL.NEB INHALATION ×3 (07:34→19:43)
[2023-07-12] MEDS: Mesalamine 1.2 GM Tablet PO (08:44)
[2023-07-12] MEDS: Lidocaine 5% Patch 2 PATCH TOPICAL (08:44)
[2023-07-12] MEDS: lamoTRIgine 100 MG Tablet 200 MG PO (08:45)
[2023-07-12] MEDS: Pantoprazole Sodium 40 MG Tablet PO (08:45)
[2023-07-12] MEDS: Clopidogrel Bisulfate 75 MG Tablet PO (08:45)
[2023-07-12] MEDS: Fenofibrate 48 MG Tablet PO (08:45)
[2023-07-12] MEDS: Budesonide 3 MG CAPSULE.EC 9 MG PO (08:45)
[2023-07-12] MEDS: Venlafaxine XR 75 MG Capsule PO (08:45)
[2023-07-12] MEDS: Lactobacillis Acidophilus 1 CAP PO (08:46)
[2023-07-12] MEDS: ARIPiprazole 10 MG Tablet PO (08:46)
[2023-07-12] MEDS: Loratadine 10 MG Tablet PO (08:46)
[2023-07-12] MEDS: Donepezil HCl 10 MG Tablet PO (08:46)
[2023-07-12] MEDS: predniSONE 20 MG Tablet 40 MG PO (08:46)
--- NOTE | 2023-07-12 11:00 | CASEMGMT ---
Addendum entered by Kimberli Calvo 07/12/23 11:11: Social Work Pt's daughter Bethany called back. SW updated her on the plan for pt to go to [facility], and that we are waiting for precert. She states she was aware, had spoken w/pt. SW will continue to follow. JOCE Loving Original Note: Social Work SW called pt's daughter Bethany to update her on discharge plan. Message left to call [facility]. JOCE Loving
--- NOTE | 2023-07-12 13:21 | PCM.PN.HOSP ---
Reason for Visit Reason for Visit: Weakness Subjective Subjective No issues overnight. Patient states he is doing well. Awaiting acceptance and once acceptance is obtained from a detention facility will need pre-CERT. Objective Data Objective Data Vital Signs: Vital Signs Temp Pulse Resp BP Pulse Ox O2 Del Method 98.4 F 93 18 98/67 94 Room Air 07/12/23 08:37 07/12/23 08:37 07/12/23 08:37 07/12/23 08:37 07/12/23 08:37 07/12/23 08:40 Oxygen Delivery Method Room Air Weight: 79.8 kg Body Mass Index (BMI) 23.8 Intake & Output: Intake and Output for Last 24 Hours 07/10/23 07/11/23 07/12/23 23:59 23:59 23:59 Intake Total 800 / 800 Output Total 1999 / 1999 Balance -1200 / -1200 Medical Nutrition Assessment Dietitian: Malnutrition Criteria Met Start: 07/11/23 12:46 Freq: Status: Active Protocol: Document 07/11/23 12:46 SLA (Rec: 07/11/23 12:46 SLA Desktop) Nutrition Malnutrition Evidence of Malnutrition Exists Yes Malnutrition (severe): Acute Illness/Injury Evidenced By Suboptimal Energy Intake ( Severe),Weight Loss (Severe) Clinical Problem Acute Disease or Injury Related Malnutrition Etiology related to inadequate energy intake Signs/Symptoms as evidenced by 7% unintended wt loss and po intake meeting <75% of 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 Problem Recommendation Dietitian Recommendations/Changes Continue liberal regular diet d/t signs and symptoms of malnutrition Will change Ensure Plus High Protein w/ medpass to meals per pt request Rec consider appetite stimulant to help encourage increased po intake Lab / Micro Data 07/11/23 06:00 07/11/23 06:00 Micro: Microbiology 07/11/23 05:47 Mucosa - Nasopharyngeal Respiratory Panel (PCR) - Final Rhinovirus Physical Exam Const alert, oriented x3, no apparent distress and average body habitus Constitutional Narrative: Chronically ill-appearing, older, white male, sitting up in a chair at the bedside, appears comfortable nontoxic HEENT head/scalp atraumatic and moist oral mucous membranes Head and Scalp: normocephalic Neuro oriented x3 and no focal motor deficits Speech: speech normal Psych Psych Narrative: Affect is slightly flat however eye contact is good and patient interacts appropriately, answers all questions Assessment & Plan Assessment/Plan (1) Severe malnutrition: (2) Generalized weakness: (3) Adult failure to thrive: PLAN: Plan Generalized weakness/debility/falls secondary to severe knee osteoarthritis/medical comorbidities/chronic pain -Patient uses a cane predominantly to walk but does have a walker at home -Suspect that he may need a walker more consistently -PT/OT following and recommending placement -Case management/social work consultation -Highly suspect patient will need placement -Plan is for total knee arthroplasty in the future to help with his knee issues which are directly related to his debility however he had an Euflexxa injection on 06/03 and typically surgery should not be done until 3 months later -Follows with Dr. Cohn -Continue scheduled Tylenol -Continue lidocaine patch -Continue oxycodone as needed every 6 hours -Avoid NSAIDs Acute exacerbation of COPD -Patient short of breath on admission with good saturations but wheezing was noted -Patient is stable on room air at 99% -Continue inhalers -Respiratory viral panel was unremarkable -Continue prednisone 40 mg daily and will discharge with a taper -Suspect some of this may be anxiety driven -Patient currently stable without any signs of exacerbation and lungs are clear Severe malnutrition -Dietitian is following -Continue dietary supplements History of pulmonary embolism -Diagnosed in March 2023 -Continue home Eliquis Moderate persistent asthma/COPD stage II -Continue home inhalers -Stable on room air CAD/HTN/HPL -Continue home Plavix -Continue home atorvastatin -Continue home fenofibrate -Hold Vascepa as it is nonformulary -Continue home losartan BPH with obstruction -Continue home Flomax Restless leg syndrome -Continue home Requip Chronic diarrhea -Continue home rifaximin -Continue home mesalamine Crohn's disease/IBS -Continue home budesonide -Continue home Bentyl foods -Continue outpatient follow-up GERD -Continue home PPI Mild cognitive impairment -Continue home donepezil Schizophrenia/mood disorder NOS -Continue home aripiprazole -Continue home Zyprexa -Continue home desvenlafaxine -Continue home Lamictal -Continue home trazodone Chronic pain -Continue home baclofen -Hold home [place] as we are giving acetaminophen and oxycodone while hospitalized Chronic allergies -Continue home fexofenadine Restless leg syndrome -Continue home ropinirole DVT prophylaxis -Patient on full anticoagulation for newly diagnosed PE CODE STATUS -Full code as verified at admission Charges/Coding Visit Charges Inpatient E&M: 11809 Subs Hosp L1
[2023-07-13] VITALS (8 sets, daily range): BP systolic 108–126; BP diastolic 62–74; PULSE 74–95; RESP 16–18; TEMP 36.5–36.7; O2SAT 94–96
[2023-07-13] MEDS: Ipratropium/Albuterol Sulfate 3 ML AMPUL.NEB INHALATION ×3 (04:23→19:32)
[2023-07-13] MEDS: rifAXIMin 550 MG Tablet PO ×3 (06:30→21:02)
[2023-07-13] MEDS: Acetaminophen 500 MG Tablet 1000 MG PO ×3 (06:31→21:00)
[2023-07-13] MEDS: Baclofen 10 MG Tablet PO ×3 (06:31→21:01)
[2023-07-13] MEDS: Lidocaine 5% Patch 2 PATCH TOPICAL (08:09)
[2023-07-13] MEDS: Dicyclomine 10 MG Capsule 20 MG PO ×4 (08:10→20:58)
[2023-07-13] MEDS: Venlafaxine XR 75 MG Capsule PO (08:10)
[2023-07-13] MEDS: Budesonide 3 MG CAPSULE.EC 9 MG PO (08:10)
[2023-07-13] MEDS: Fenofibrate 48 MG Tablet PO (08:11)
[2023-07-13] MEDS: lamoTRIgine 100 MG Tablet 200 MG PO (08:11)
[2023-07-13] MEDS: Lactobacillis Acidophilus 1 CAP PO (08:11)
[2023-07-13] MEDS: Clopidogrel Bisulfate 75 MG Tablet PO (08:11)
[2023-07-13] MEDS: Donepezil HCl 10 MG Tablet PO (08:12)
[2023-07-13] MEDS: Mesalamine 1.2 GM Tablet PO (08:12)
[2023-07-13] MEDS: Losartan Potassium 25 MG Tablet PO ×2 (08:12→21:02)
[2023-07-13] MEDS: predniSONE 20 MG Tablet 40 MG PO (08:12)
[2023-07-13] MEDS: Pantoprazole Sodium 40 MG Tablet PO (08:13)
[2023-07-13] MEDS: ARIPiprazole 10 MG Tablet PO (08:13)
[2023-07-13] MEDS: APIXABAN 5 MG TABLET PO ×2 (08:13→21:03)
[2023-07-13] MEDS: Loratadine 10 MG Tablet PO (08:14)
[2023-07-13] MEDS: HYDROcodone Bitartrate/Apap 5/325 Tablet PO ×2 (09:46→21:02)
--- NOTE | 2023-07-13 10:02 | PN.HOSP_ITS ---
Reason for Visit Reason for Visit: Falls/inability to care for self Subjective Subjective No issues overnight. States his pain is controlled well enough with the current pain regimen. Denies any complaints. Objective Data Objective Data Vital Signs: Vital Signs Temp Pulse Resp BP Pulse Ox O2 Del Method 97.7 F L 74 18 125/70 H 95 Room Air 07/13/23 06:27 07/13/23 06:27 07/13/23 06:27 07/13/23 06:27 07/13/23 06:27 07/13/23 08:07 Oxygen Delivery Method Room Air Weight: 79.8 kg Body Mass Index (BMI) 23.8 Intake & Output: Intake and Output for Last 24 Hours 07/11/23 07/12/23 07/13/23 23:59 23:59 23:59 Intake Total 800 / 800 200 / 200 0 / 0 Output Total 1999 / 1999 375 / 375 400 / 400 Balance -1200 / -1200 -175 / -175 -400 / -400 Medical Nutrition Assessment Dietitian: Malnutrition Criteria Met Start: 07/11/23 12:46 Freq: Status: Active Protocol: Document 07/11/23 12:46 SLA (Rec: 07/11/23 12:46 SLA Desktop) Nutrition Malnutrition Evidence of Malnutrition Exists Yes Malnutrition (severe): Acute Illness/Injury Evidenced By Suboptimal Energy Intake ( Severe),Weight Loss (Severe) Clinical Problem Acute Disease or Injury Related Malnutrition Etiology related to inadequate energy intake Signs/Symptoms as evidenced by 7% unintended wt loss and po intake meeting <75% 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 Problem Recommendation Dietitian Recommendations/Changes Continue liberal regular diet d/t signs and symptoms of malnutrition Will change Ensure Plus High Protein w/ medpass to meals per pt request Rec consider appetite stimulant to help encourage increased po intake Lab / Micro Data 07/11/23 06:00 07/11/23 06:00 Micro: Microbiology 07/11/23 05:47 Mucosa - Nasopharyngeal Respiratory Panel (PCR) - Final Rhinovirus Physical Exam Const alert, oriented x3, no apparent distress, average body habitus and well nourished Constitutional Narrative: Older, white male, sitting up in a chair at the bedside, appears comfortable and nontoxic HEENT head/scalp atraumatic and moist oral mucous membranes Head and Scalp: normocephalic Neuro Sensorium / Orientation: awake, alert, oriented to person, oriented to place and oriented to time Psych affect normal Psych Narrative: Eye contact is good, patient interacts appropriately, very pleasant Assessment & Plan Assessment/Plan (1) Severe malnutrition: (2) Generalized weakness: (3) Adult failure to thrive: PLAN: Plan Generalized weakness/debility/falls secondary to severe knee osteoarthritis/medical comorbidities/chronic pain -Patient uses a cane predominantly to walk but does have a walker at home -Suspect that he may need a walker more consistently -PT/OT following and recommending placement -Case management/social work following and working on placement--> accepted at [facility] and awaiting pre-CERT -Highly suspect patient will need placement -Plan is for total knee arthroplasty in the future to help with his knee issues which are directly related to his debility however he had an Euflexxa injection on 06/03 and typically surgery should not be done until 3 months later -Follows with Dr. Cohn -Continue scheduled Tylenol -Continue lidocaine patch -Continue oxycodone as needed every 6 hours -Avoid NSAIDs Acute exacerbation of COPD -Resolved -Patient is stable on room air at 99% -Continue inhalers -Decrease prednisone to 30 mg daily and taper as written for -Suspect some of this may be anxiety driven Severe malnutrition -Dietitian is following -Continue dietary supplements History of pulmonary embolism -Diagnosed in March 2023 -Continue home Eliquis Moderate persistent asthma/COPD stage II -Continue home inhalers -Stable on room air CAD/HTN/HPL -Continue home Plavix -Continue home atorvastatin -Continue home fenofibrate -Hold Vascepa as it is nonformulary -Continue home losartan BPH with obstruction -Continue home Flomax Restless leg syndrome -Continue home Requip Chronic diarrhea -Continue home rifaximin -Continue home mesalamine Crohn's disease/IBS -Continue home budesonide -Continue home Bentyl foods -Continue outpatient follow-up GERD -Continue home PPI Mild cognitive impairment -Continue home donepezil Schizophrenia/mood disorder NOS -Continue home aripiprazole -Continue home Zyprexa -Continue home desvenlafaxine -Continue home Lamictal -Continue home trazodone Chronic pain -Continue home baclofen -Hold home [place] as we are giving acetaminophen and oxycodone while hospitalized Chronic allergies -Continue home fexofenadine Restless leg syndrome -Continue home ropinirole DVT prophylaxis -Patient on full anticoagulation for newly diagnosed PE CODE STATUS -Full code as verified at admission Charges/Coding Visit Charges Inpatient E&M: 74184 Subs Hosp L1
[2023-07-13] MEDS: 0.9% Saline Lock 10 ML Syringe IV (20:56)
[2023-07-13] MEDS: Pramipexole Di-HCl 0.25 MG Tablet PO (21:01)
[2023-07-13] MEDS: Tamsulosin HCl 0.4 MG Capsule PO (21:01)
[2023-07-13] MEDS: OLANZapine 10 MG Tablet PO (21:02)
[2023-07-13] MEDS: Atorvastatin Calcium 40 MG Tablet PO (21:03)
[2023-07-13] MEDS: traZODone 50 MG Tablet 150 MG PO (21:09)
[2023-07-14] VITALS (9 sets, daily range): BP systolic 106–133; BP diastolic 61–77; PULSE 73–97; RESP 15–20; TEMP 36.4–37; O2SAT 93–95
[2023-07-14 05:42] LABS: Hematocrit 32.3 % (40-54); Hemoglobin 10.1 g/dL (13.0-16.5); Mean Corp Hgb Conc 31.3 g/dL (32-36); Mean Corpuscular Hgb 26.9 pg (27.0-32.0); Mean Corpuscular Volume 86.1 fL (80-94); Mean Platelet Vol. 9.7 fl (6.2-12.0); Platelet Count 334 K/mm3 (150-450); RBC Distribution Width CV 14.4 % (11.6-14.6); RBC Distribution Width SD 45.7 fl (35.1-43.9); Red Blood Count 3.75 M/mm3 (4.6-6.2); White Blood Count 11.4 K/mm3 (4.4-11.0)
[2023-07-14 06:05] LABS: Anion Gap 4 (5-15); BUN 30 mg/dL (7-18); BUN/Creat Ratio 28.8 RATIO (10-20); Calcium,Total 8.7 mg/dL (8.5-10.1); Chloride 112 mmol/L (98-107); Creatinine, Serum 1.04 mg/dL (0.70-1.30); EST Glomerular Filtration Rate 74 mL/min (>60); Est Glom Filt Rate - Afr Amer 90 mL/min (>60); Estimated Creatinine Clearance 67.36 ml/min; Glucose 102 mg/dL (74-106); Potassium 3.7 mmol/L (3.5-5.1); Sodium Level 143 mmol/L (136-145)
[2023-07-14] MEDS: Acetaminophen 500 MG Tablet 1000 MG PO ×3 (06:21→21:34)
[2023-07-14] MEDS: Baclofen 10 MG Tablet PO ×3 (06:21→21:35)
[2023-07-14] MEDS: rifAXIMin 550 MG Tablet PO ×3 (06:21→21:34)
[2023-07-14] MEDS: Ipratropium/Albuterol Sulfate 3 ML AMPUL.NEB INHALATION ×3 (07:02→19:41)
[2023-07-14] MEDS: predniSONE 20 MG Tablet 30 MG PO (09:32)
[2023-07-14] MEDS: ARIPiprazole 10 MG Tablet PO (09:33)
[2023-07-14] MEDS: Donepezil HCl 10 MG Tablet PO (09:34)
[2023-07-14] MEDS: Dicyclomine 10 MG Capsule 20 MG PO ×4 (09:34→21:36)
[2023-07-14] MEDS: Losartan Potassium 25 MG Tablet PO ×2 (09:35→21:33)
[2023-07-14] MEDS: Lactobacillis Acidophilus 1 CAP PO (09:35)
[2023-07-14] MEDS: APIXABAN 5 MG TABLET PO ×2 (09:36→21:47)
[2023-07-14] MEDS: Mesalamine 1.2 GM Tablet PO (09:36)
[2023-07-14] MEDS: lamoTRIgine 100 MG Tablet 200 MG PO (09:36)
[2023-07-14] MEDS: Venlafaxine XR 75 MG Capsule PO (09:36)
[2023-07-14] MEDS: Clopidogrel Bisulfate 75 MG Tablet PO (09:37)
[2023-07-14] MEDS: Lidocaine 5% Patch 2 PATCH TOPICAL (09:37)
[2023-07-14] MEDS: Fenofibrate 48 MG Tablet PO (09:37)
[2023-07-14] MEDS: Pantoprazole Sodium 40 MG Tablet PO (09:37)
[2023-07-14] MEDS: HYDROcodone Bitartrate/Apap 5/325 Tablet PO ×2 (09:48→21:36)
[2023-07-14] MEDS: Loratadine 10 MG Tablet PO (09:49)
--- NOTE | 2023-07-14 09:59 | CASEMGMT ---
Social Work- Clinical updates sent to [facility]. Plan: [facility]; pending precert ROSALEE Carpenter
[2023-07-14] MEDS: Budesonide 3 MG CAPSULE.EC 9 MG PO (10:54)
--- NOTE | 2023-07-14 11:16 | PN_ITS ---
Subjective Subjective Patient seen and examined. He had no active complaints. Physical therapy was in the room with him. Review of systems otherwise negative. He is awaiting placement. Objective Data Objective Data Vital Signs: Vital Signs Temp Pulse Resp BP Pulse Ox O2 Del Method 98.1 F 90 16 122/61 H 93 Room Air 07/14/23 09:20 07/14/23 09:20 07/14/23 09:20 07/14/23 09:20 07/14/23 09:20 07/14/23 09:20 Oxygen Delivery Method Room Air Weight: 175 lb 14.862 oz Body Mass Index (BMI) 23.8 Intake & Output: Intake and Output for Last 24 Hours 07/12/23 07/13/23 07/14/23 23:59 23:59 23:59 Intake Total 200 / 200 0 / 0 Output Total 375 / 375 400 / 650 500 / 500 Balance -175 / -175 -400 / -650 -500 / -500 Medical Nutrition Assessment Dietitian: Malnutrition Criteria Met Start: 07/11/23 12:46 Freq: Status: Active Protocol: Document 07/11/23 12:46 SLA (Rec: 07/11/23 12:46 SLA Desktop) Nutrition Malnutrition Evidence of Malnutrition Exists Yes Malnutrition (severe): Acute Illness/Injury Evidenced By Suboptimal Energy Intake ( Severe),Weight Loss (Severe) Clinical Problem Acute Disease or Injury Related Malnutrition Etiology related to inadequate energy intake Signs/Symptoms as evidenced by 7% unintended wt loss and po intake meeting <75% 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 Problem Recommendation Dietitian Recommendations/Changes Continue liberal regular diet d/t signs and symptoms of malnutrition Will change Ensure Plus High Protein w/ medpass to meals per pt request Rec consider appetite stimulant to help encourage increased po intake Lab / Micro Data 07/14/23 05:27 07/14/23 05:27 Labs: Laboratory Results - last 24 hr 07/14/23 05:27: WBC 11.4 H, RBC 3.75 L, Hgb 10.1 L, Hct 32.3 L, MCV 86.1, MCH 26.9 L, MCHC 31.3 L, RDW Std Deviation 45.7 H, RDW Coeff of Tad 14.4, Plt Count 334, MPV 9.7, Sodium 143, Potassium 3.7, Chloride 112 H, Carbon Dioxide 27.0, Anion Gap 4 L, BUN 30 H, Creatinine 1.04, Estim Creat Clear Calc 67.36, Est GFR (MDRD) Af Amer 90, Est GFR (MDRD) Non-Af 74, BUN/Creatinine Ratio 28.8 H, Glucose 102, Calcium 8.7 Micro: Microbiology 07/11/23 05:47 Mucosa - Nasopharyngeal Respiratory Panel (PCR) - Final Rhinovirus Physical Exam Const alert, oriented x3 and no apparent distress Constitutional Narrative: Frail HEENT normocephalic, head/scalp atraumatic, moist oral mucous membranes and oropharynx normal Eyes PERRL and EOMs intact bilaterally Neck no lymphadenopathy, supple and no JVD Lymph Lymphatic: no lymphadenopathy noted and no lymphedema noted Resp Resp Narrative: Mildly diminished breath sounds bibasilarly. No wheezes or crackles. On room air. Cardio regular rate, regular rhythm, S1 normal heart sound, S2 normal heart sound and no murmurs GI normal to inspection, nondistended, normoactive bowel sounds, soft to palpation, non-tender and non-distended Extremity normal capillary refill, no clubbing, cyanosis or edema and no calf tenderness General Extremity: no tenderness to palpation of joints or extremities Skin General Skin Exam: no breakdown Neuro CN's II-XII intact bilaterally, no focal motor deficits, no sensory deficits noted and deep tendon reflexes 2+ bilaterally Motor Exam: general weakness Psych thought process normal and cooperative Appearance: appropriate Assessment & Plan Assessment/Plan (1) Generalized weakness: (2) Adult failure to thrive: PLAN: Plan #Generalised weakness with failure to thrive * PT OT on board. Fall precautions. * Has severe knee osteoarthritis and needs to follow-up with orthopedics on outpatient basis for knee replacement. On oxycodone and Tylenol as well as lidocaine patch. * Awaiting placement. #COPD exacerbation: Resolved. Now on room air. Breathing treatments bronchodilators. #Severe protein calorie malnutrition: Dietitian on board. On dietary supplements. #History of PE: On Eliquis #CAD: On Plavix and statin as well as fenofibrate. #Hypertension: On losartan #Hyperlipidemia: On fenofibrate. 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 #GERD: On PPI #Mild cognitive impairment: On donepezil #Schizophrenia and depression: On Lamictal, trazodone, desvenlafaxine and Zyprexa as well as aripiprazole DVT prophylaxis: On Eliquis Disposition: Awaiting placement. Charges/Coding Visit Charges Inpatient E&M: 20454 Subs Hosp L2
--- NOTE | 2023-07-14 13:17 | CASEMGMT ---
Social Work SW let pt know that [facility] definitely accepted him and we are still waiting for precert. Pt states understanding. Updates sent earlier to [facility], SW inquired in [facility] if they have heard anything from insurance. SW will continue to follow. JOCE Loving
--- NOTE | 2023-07-14 17:12 | CASEMGMT ---
Social Work Precert attained for pt to go to [facility], texted physician, pt will be discharged tomorrow. JOCE Loving
[2023-07-14] MEDS: Atorvastatin Calcium 40 MG Tablet PO (21:33)
[2023-07-14] MEDS: traZODone 50 MG Tablet 150 MG PO (21:33)
[2023-07-14] MEDS: Tamsulosin HCl 0.4 MG Capsule PO (21:33)
[2023-07-14] MEDS: Pramipexole Di-HCl 0.25 MG Tablet PO (21:34)
[2023-07-14] MEDS: OLANZapine 10 MG Tablet PO (21:35)
[2023-07-15 04:00] VITALS: BP 120/64; PULSE 74; RESP 15; TEMP 36.7; O2SAT 93
[2023-07-15 06:24] LABS: Absolute Lymphocyte Count 1.96 X10^3/uL (0.83-4.51); Absolute Neutrophil Count 7.1 X10^3/uL (2.0-7.7); Basophil# 0.06 X10^3/uL; Basophil% 0.6 % (0-1); Eosinophil# 0.03 X10^3/uL; Eosinophils% 0.3 % (0-5); Hematocrit 32.5 % (40-54); Hemoglobin 10.3 g/dL (13.0-16.5); Lymphocyte # 1.96 X10^3/ul (0.83-4.51); Lymphocyte % 18.8 % (19-41); Mean Corp Hgb Conc 31.7 g/dL (32-36); Mean Corpuscular Hgb 27.2 pg (27.0-32.0); Mean Corpuscular Volume 85.8 fL (80-94); Mean Platelet Vol. 10.1 fl (6.2-12.0); Monocyte% 7.7 % (0-10); NRBC Flagged by Analyzer 0.2 % (0-5); Neutrophil # 7.07 X10^3/uL (2.7-7.7); Neutrophil % 67.9 % (47-70); Platelet Count 322 K/mm3 (150-450); RBC Distribution Width CV 14.2 % (11.6-14.6); RBC Distribution Width SD 44.7 fl (35.1-43.9); Red Blood Count 3.79 M/mm3 (4.6-6.2); White Blood Count 10.4 K/mm3 (4.4-11.0)
[2023-07-15] MEDS: Baclofen 10 MG Tablet PO (06:33)
[2023-07-15] MEDS: Acetaminophen 500 MG Tablet 1000 MG PO (06:34)
[2023-07-15] MEDS: rifAXIMin 550 MG Tablet PO (06:34)
[2023-07-15 06:47] LABS: Anion Gap 4 (5-15); BUN 34 mg/dL (7-18); Calcium,Total 8.7 mg/dL (8.5-10.1); Chloride 109 mmol/L (98-107); Creatinine, Serum 1.03 mg/dL (0.70-1.30); EST Glomerular Filtration Rate 75 mL/min (>60); Est Glom Filt Rate - Afr Amer 91 mL/min (>60); Estimated Creatinine Clearance 68.02 ml/min; Glucose 101 mg/dL (74-106); Potassium 3.7 mmol/L (3.5-5.1); Sodium Level 140 mmol/L (136-145)
[2023-07-15 07:13] VITALS: PULSE 77; RESP 18
[2023-07-15] MEDS: Ipratropium/Albuterol Sulfate 3 ML AMPUL.NEB INHALATION (07:13)
--- NOTE | 2023-07-15 08:47 | CASEMGMT ---
Social Work- Pt advised of d/c to [facility] today ROSALEE Lindsay
--- NOTE | 2023-07-15 10:10 | PCM.TXEXTCAR ---
Diet Diet Order/Speech Therapy: 07/10/23 22:48 Diet: Regular - General Food consistency:: Regular Liquid Consistency:: Regular/Thin Type of Dietary Supplement:: Ensure Plus High Protein Is pt able to select menu?: Yes Diet Comments: 8 oz strawberry or vanilla EPHP w/ meals tid Routine Orders/Code Status Enema Type: Fleetz Enema Frequency: Daily PRN Suppository Type: Dulcolax 10mg Suppository Frequency: Daily PRN O2 Frequency: PRN Keep PO Greater than or Equal to (%): 90 Wound(s) R lower leg: Wound Type: Abrasion Therapies Weight Bearing: Weight bearing as tolerated Physical Therapy: Eval and Treat Occupational Therapy: Eval and Treat Problem/Diagnosis (1) Generalized weakness: Status: Acute Code(s): R53.1 - Weakness (2) Adult failure to thrive: Status: Acute Code(s): R62.7 - Adult failure to thrive Plan #Generalised weakness with failure to thrive PT OT on board. Fall precautions. Has severe knee osteoarthritis and needs to follow-up with orthopedics on outpatient basis for knee replacement. On oxycodone and Tylenol as well as lidocaine patch. Awaiting placement. #COPD exacerbation: Resolved. Now on room air. Breathing treatments bronchodilators. #Severe protein calorie malnutrition: Dietitian on board. On dietary supplements. #History of PE: On Eliquis #CAD: On Plavix and statin as well as fenofibrate. #Hypertension: On losartan #Hyperlipidemia: On fenofibrate. 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 #GERD: On PPI #Mild cognitive impairment: On donepezil #Schizophrenia and depression: On Lamictal, trazodone, desvenlafaxine and Zyprexa as well as aripiprazole DVT prophylaxis: On Eliquis Disposition: Awaiting placement. Allergies/Procedures Done in Hospital Allergies Quinolones Allergy (Unknown, Verified 07/10/23 17:49) unknown aspirin Allergy (Verified 07/10/23 17:49) Itching, Hives levofloxacin [From Levaquin] Allergy (Verified 07/10/23 17:49) Hives, Itching Penicillins Allergy (Verified 07/10/23 17:49) Hives, Itching Type of Care/Length of Stay Estimated LOS: Convalescent Care Less Than 30 days Type of Care Needed: Skilled Rehab Potential: Fair Prognosis: Fair Additional Orders/Day of Discharge Day of Discharge: 07/15/23 Dietary and Speech Recommendations Dietitian Recommendations/Changes: Continue liberal regular diet d/t signs and symptoms of malnutrition Continue Ensure Plus High Protein w/ medpass to meals per pt request Rec consider appetite stimulant to help encourage increased po intake Discharge Plan Admission Admit Date/Time: 07/10/23 20:34 Primary Reason for Your Visit: failure to thrive, COPD exacerbation Attending Provider: Cora Umaña Primary Care Provider: Eliel Mosley Consulting Providers: Carmelo Lowe; Anette Burrell Instructions Patient Instructions: Aging and Nutrition Problems Discharge Orders/Prescriptions Prescriptions: New prednisone 10 mg tablets,dose pack 10 mg PO UD Qty: 21 0RF Taper: Prednisone Taper 30 mg WITH BREAKFAST for 3 Days and 0 Hour 20 mg WITH BREAKFAST for 3 Days and 0 Hour 10 mg WITH BREAKFAST for 3 Days and 0 Hour Continued aripiprazole [Abilify] 10 mg tablet 10 mg PO DAILY icosapent ethyl [Vascepa] 1 gram capsule 2 g PO BID baclofen 10 mg tablet 10 mg PO TID olanzapine [Zyprexa] 10 mg tablet 10 mg PO QHS donepezil 10 mg tablet 10 mg PO DAILY lamotrigine [Lamictal] 200 mg tablet 200 mg PO DAILY Breztri Aerosphere 160-9-4.8 mcg/actuation HFA aerosol inhaler 2 inh inhalation BID Qty: 10.7 11RF ropinirole 0.5 MG tablet 0.5 mg PO QHS tamsulosin 0.4 MG capsule,extended release 24hr 0.4 mg PO QHS omeprazole 40 MG capsule,delayed release(DR/EC) 40 mg PO DAILY acetaminophen 500 mg tablet 1,000 mg PO Q6H PRN (Reason: Pain) hydrocodone-acetaminophen 5-325 mg tablet 1 tab PO BID Acidophilus-Pectin 75 million cell -100 mg capsule 1 cap PO DAILY fexofenadine 180 mg tablet 180 mg PO DAILY dicyclomine 20 mg tablet 20 mg PO 4X/DAY budesonide 3 mg capsule,delayed,extend.release 3 mg PO TID potassium chloride 20 mEq tablet,ER particles/crystals 20 meq PO DAILY Xifaxan 550 mg tablet 550 mg PO TID trazodone 150 mg tablet 150 mg PO DAILY ondansetron 4 mg tablet,disintegrating 4 mg PO TID PRN (Reason: NAUSEA ) Eliquis 5 mg tablet 5 mg PO BID desvenlafaxine succinate 100 mg tablet extended release 24 hr 100 mg PO DAILY mesalamine 0.375 gram capsule,extended release 24hr 1.5 g PO DAILY Patient Comments: PT UNAWARE OF DOSAGE OR FREQ albuterol sulfate 2.5 mg /3 mL (0.083 %) solution for nebulization 2.5 mg INHALATION Q8H PRN (Reason: shortness of breath or wheezing) albuterol sulfate 90 mcg/actuation HFA aerosol inhaler 2 puff INHALATION Q6H PRN (Reason: Shortness Of Breath) fenofibrate 54 mg tablet 54 mg PO DAILY Qty: 90 3RF clopidogrel 75 mg tablet 75 mg PO DAILY Qty: 30 11RF losartan 25 mg tablet 25 mg PO BID Qty: 180 3RF nitroglycerin [Nitrostat] 0.4 mg tablet, sublingual 0.4 mg sublingual Q5-15M PRN (Reason: chest pain) Qty: 25 3RF Rx Instructions: do not exceed 3 doses per episode atorvastatin 40 mg tablet 40 mg PO QHS Qty: 90 3RF Referrals / Follow Up: Eliel Mosley, [facility] [Primary Care Provider] - Within 1 Week Disposition Disposition (needs filled in before D/C Order can be placed): Retirement Facility
--- NOTE | 2023-07-15 10:12 | PCM.DC.SUM ---
Providers Date of Admission: 07/10/23 Date of Discharge: 07/15/23 Primary Care Physician: GAURAV Walden Reason For Visit: ADULT FAILURE TO THRIVE, MILD COPD EXACERBATION Diagnosis Discharge Diagnosis (1) Generalized weakness: Status: Acute Code(s): R53.1 - Weakness (2) Adult failure to thrive: Status: Acute Code(s): R62.7 - Adult failure to thrive Plan #Generalised weakness with failure to thrive PT OT on board. Fall precautions. Has severe knee osteoarthritis and needs to follow-up with orthopedics on outpatient basis for knee replacement. On oxycodone and Tylenol as well as lidocaine patch. Awaiting placement. #COPD exacerbation: Resolved. Now on room air. Breathing treatments bronchodilators. #Severe protein calorie malnutrition: Dietitian on board. On dietary supplements. #History of PE: On Eliquis #CAD: On Plavix and statin as well as fenofibrate. #Hypertension: On losartan #Hyperlipidemia: On fenofibrate. 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 #GERD: On PPI #Mild cognitive impairment: On donepezil #Schizophrenia and depression: On Lamictal, trazodone, desvenlafaxine and Zyprexa as well as aripiprazole DVT prophylaxis: On Eliquis Disposition: Awaiting placement. Medications at Discharge Home Medications ropinirole 0.5 mg tablet 0.5 mg PO QHS RESTLESS LEGS 04/23/16 tamsulosin 0.4 mg capsule 0.4 mg PO QHS PROSTATE 01/30/17 omeprazole 40 mg capsule,delayed release 40 mg PO DAILY GERD 07/30/19 aripiprazole 10 mg tablet (Abilify) 10 mg PO DAILY ANXIETY 11/09/20 baclofen 10 mg tablet 10 mg PO TID PAIN 11/09/20 icosapent ethyl 1 gram capsule (Vascepa) 2 g PO BID HEART 11/09/20 donepezil 10 mg tablet 10 mg PO DAILY ALZHEIMERS 10/23/21 lamotrigine 200 mg tablet (Lamictal) 200 mg PO DAILY MOOD 10/23/21 olanzapine 10 mg tablet (Zyprexa) 10 mg PO QHS MOOD 10/23/21 acetaminophen 500 mg tablet 1,000 mg PO Q6H PRN Pain 05/28/22 fenofibrate 54 mg tablet 54 mg PO DAILY CHOLESTEROL #90 tabs 09/13/22 clopidogrel 75 mg tablet 75 mg PO DAILY BLOOD THINNER #30 tabs 01/03/23 budesonide 160 mcg-glycopyr 9 mcg-formot 4.8 mcg/actuation HFA inhaler (Breztri Aerosphere) 2 inh inhalation BID COPD #10.7 grams 01/28/23 Lactobacillus acidophilus 75 million cell-pectin 100 mg capsule (Acidophilus-Pectin) 1 cap PO DAILY GUT HEALTH 04/15/23 budesonide 3 mg capsule,delayed,extended release 3 mg PO TID CROHNS DISEASE 04/15/23 dicyclomine 20 mg tablet 20 mg PO 4X/DAY IRRITABLE BOWELS 04/15/23 fexofenadine 180 mg tablet 180 mg PO DAILY ALLERGIES 04/15/23 hydrocodone-acetaminophen 5-325mg 5mg-325mg 1 tab PO BID PAIN 04/15/23 ondansetron 4 mg disintegrating tablet 4 mg PO TID PRN NAUSEA 04/15/23 potassium chloride 20 mEq tablet,extended release(part/cryst) 20 meq PO DAILY SUPPLEMENT 04/15/23 rifaximin 550 mg tablet (Xifaxan) 550 mg PO TID DIARRHEA 04/15/23 trazodone 150 mg tablet 150 mg PO DAILY SLEEP 04/15/23 losartan 25 mg tablet 25 mg PO BID BLOOD PRESSURE #180 tabs 04/28/23 nitroglycerin 0.4 mg sublingual tablet (Nitrostat) 0.4 mg sublingual Q5-15M PRN chest pain #25 tabs 06/16/23 atorvastatin 40 mg tablet 40 mg PO QHS CHOLESTEROL #90 tabs 06/24/23 albuterol sulfate 2.5 mg/3 mL (0.083 %) solution for nebulization 2.5 mg inhalation Q8H PRN shortness of breath or wheezing 07/10/23 albuterol sulfate 90 mcg/actuation aerosol inhaler 2 puff inhalation Q6H PRN Shortness Of Breath 07/10/23 apixaban 5 mg tablet (Eliquis) 5 mg PO BID 07/10/23 desvenlafaxine succinate 100 mg tablet,extended release 24 hr 100 mg PO DAILY 07/10/23 mesalamine 0.375 gram capsule,extended release 24 hr 1.5 g PO DAILY 07/10/23 prednisone 10 mg tablets in a dose pack 10 mg PO UD #21 tabs 07/15/23 Hospital Course Operations None Procedures None Summary of Care Provided Minutes Spent on Discharge: 45 Hospital Course: Patient is a 73-year-old male with past medical history as outlined was admitted to the ED on 06/20/2023 with a complaint of worsening weakness shortness of breath at home. He had had a fall at home a few days prior to admission and had resultant left knee pain. X-ray was negative and he was discharged and subsequently came back because of weakness. He could not take care of himself at home so was admitted and managed for debility and weakness with adult failure to thrive. He was known to have osteoarthritis and was actually waiting to see orthopedics for total knee arthroplasty. Hospital course was complicated by acute exacerbation of COPD he was treated with steroids and breathing treatments bronchodilators. He was seen by PT OT and was determined that he would need placement in a long term facility. He was subsequently placed on a tapering dose of steroids. He was discharged to [facility] on 07/15/2023. He is to follow-up with his primary care doctor within 1 to 2 weeks and also to follow-up with orthopedic surgery for evaluation for knee arthroplasty. He was discharged on a tapering dose of steroids. Patient seen and examined prior to discharge. He had no active complaints and had an uneventful night. Labs and vitals reviewed. Home medication reviewed and reconciled. Physical Exam Const alert, oriented x3, no apparent distress, average body habitus and well nourished; Negative for healthy appearing Constitutional Narrative: Frail General Appearance: cooperative, comfortable, well kempt and well developed HEENT normocephalic, head/scalp atraumatic, hearing grossly normal bilaterally, nasal mucous membranes and turbinates normal, moist oral mucous membranes and oropharynx normal Mouth: oral and palatal mucosa normal Eyes PERRL, EOMs intact bilaterally and conjunctivae normal Neck full ROM, no lymphadenopathy, supple and no JVD Lymph Lymphatic: no lymphadenopathy noted and no lymphedema noted Chest inspection of chest normal and palpation of chest normal Resp normal respiratory effort, normal air movement, no retractions, no use of accessory muscles and clear to auscultation bilaterally Resp Narrative: Mildly diminished breath sounds bibasilarly. No wheezes or crackles. On room air. Auscultation: Negative for rales, rhonchi or wheezes Cardio regular rate, regular rhythm, S1 normal heart sound, S2 normal heart sound, no murmurs, no rub, no gallops, no clicks and peripheral pulses 2+ throughout GI normal to inspection, nondistended, normoactive bowel sounds, soft to palpation, non-tender and non-distended Back/Spine normal ROM Extremity normal to inspection, full ROM, normal capillary refill, no clubbing, cyanosis or edema, no calf tenderness and no pedal edema Extremity Narrative: Decreased lean muscle mass General Extremity: no tenderness to palpation of joints or extremities Skin no rashes or lesions noted General Skin Exam: no breakdown Neuro oriented x3, CN's II-XII intact bilaterally, moves all extremities, no focal motor deficits, no sensory deficits noted and deep tendon reflexes 2+ bilaterally Sensorium / Orientation: awake, alert, oriented to person, oriented to place and oriented to time Speech: speech normal Motor Exam: general weakness Psych mental status grossly normal, thought process normal, cooperative and affect normal Appearance: appropriate Medical Records Data Medical Nutrition Assessment Dietitian: Malnutrition Criteria Met Start: 07/11/23 12:46 Freq: Status: Active Protocol: Document 07/14/23 13:02 [facility] (Rec: 07/14/23 13:02 [facility] Desktop) Nutrition Malnutrition Evidence of Malnutrition Exists Yes Malnutrition (severe): Acute Illness/Injury Evidenced By Suboptimal Energy Intake ( Severe),Weight Loss (Severe) Clinical Problem Acute Disease or Injury Related Malnutrition Etiology related to inadequate energy intake Signs/Symptoms as evidenced by 7% unintended wt loss and po intake meeting <75% of 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 Status Active Problem Recommendation Dietitian Recommendations/Changes Continue liberal regular diet d/t signs and symptoms of malnutrition Continue Ensure Plus High Protein w/ medpass to meals per pt request Rec consider appetite stimulant to help encourage increased po intake Weight / BMI Weight Weight: 175 lb 14.862 oz Body Mass Index (BMI) 23.8 ABG / Lab / Microbiology Data 07/15/23 05:39 07/15/23 05:39 Laboratory: Laboratory Results - last 24 hr 07/15/23 05:39: WBC 10.4, RBC 3.79 L, Hgb 10.3 L, Hct 32.5 L, MCV 85.8, MCH 27.2, MCHC 31.7 L, RDW Std Deviation 44.7 H, RDW Coeff of Tad 14.2, Plt Count 322, MPV 10.1, Immature Gran % (Auto) 4.700 H, Neut % (Auto) 67.9, Lymph % (Auto) 18.8 L, [place] % (Auto) 7.7, Eos % (Auto) 0.3, Baso % (Auto) 0.6, Absolute Neuts (auto) 7.1, Absolute Lymphs (auto) 1.96, Nucleated RBC % 0.2, Sodium 140, Potassium 3.7, Chloride 109 H, Carbon Dioxide 27.0, Anion Gap 4 L, BUN 34 H, Creatinine 1.03, Estim Creat Clear Calc 68.02, Est GFR (MDRD) Af Amer 91, Est GFR (MDRD) Non-Af 75, BUN/Creatinine Ratio 33.0 H, Glucose 101, Calcium 8.7 Microbiology: Microbiology 07/11/23 05:47 Mucosa - Nasopharyngeal Respiratory Panel (PCR) - Final Rhinovirus D/C Instructions Discharge Diet: Low fat / Low cholesterol Discharge Activity: Return to Normal Activity Weight Bearing Status: Weight bearing as tolerated Call your doctor if you observe: Fever of 101 or Higher Meaningful Use Info Meaningful Use Meaningful Use Diagnoses (Choose all that apply): None applicable Ischemic Stroke Statin Dosing Therapy Reference: STATIN DOSE THERAPY REFERENCE: * Patients > 75 years receive moderate or high dose statin therapy. * Patients 75 years or YOUNGER should receive HIGH intensity statin dose unless contraindicated. You will be required to document reason for non-treatment if statin daily dose does not meet guidelines. HIGH DOSE STATIN THERAPY DAILY Atorvastatin > than or = to 40 mg Rosuvastatin > than or = to 20 mg Amlodipine + Atorvastatin > than or = to 2.5/40 mg Ezetimibe + Simvastatin 10/80 mg Simvastatin 80mg Discharge Plan Admission Admit Date/Time: 07/10/23 20:34 Primary Reason for Your Visit: failure to thrive, COPD exacerbation Attending Provider: Cora Umaña Primary Care Provider: Eliel Mosley [facility] Consulting Providers: Carmelo Lowe; Anette Burrell Instructions Patient Instructions: Aging and Nutrition Problems Discharge Orders/Prescriptions Prescriptions: New prednisone 10 mg tablets,dose pack 10 mg PO UD Qty: 21 0RF Taper: Prednisone Taper 30 mg WITH BREAKFAST for 3 Days and 0 Hour 20 mg WITH BREAKFAST for 3 Days and 0 Hour 10 mg WITH BREAKFAST for 3 Days and 0 Hour Continued aripiprazole [Abilify] 10 mg tablet 10 mg PO DAILY icosapent ethyl [Vascepa] 1 gram capsule 2 g PO BID baclofen 10 mg tablet 10 mg PO TID olanzapine [Zyprexa] 10 mg tablet 10 mg PO QHS donepezil 10 mg tablet 10 mg PO DAILY lamotrigine [Lamictal] 200 mg tablet 200 mg PO DAILY Breztri Aerosphere 160-9-4.8 mcg/actuation HFA aerosol inhaler 2 inh inhalation BID Qty: 10.7 11RF ropinirole 0.5 MG tablet 0.5 mg PO QHS tamsulosin 0.4 MG capsule,extended release 24hr 0.4 mg PO QHS omeprazole 40 MG capsule,delayed release(DR/EC) 40 mg PO DAILY acetaminophen 500 mg tablet 1,000 mg PO Q6H PRN (Reason: Pain) hydrocodone-acetaminophen 5-325 mg tablet 1 tab PO BID Acidophilus-Pectin 75 million cell -100 mg capsule 1 cap PO DAILY fexofenadine 180 mg tablet 180 mg PO DAILY dicyclomine 20 mg tablet 20 mg PO 4X/DAY budesonide 3 mg capsule,delayed,extend.release 3 mg PO TID potassium chloride 20 mEq tablet,ER particles/crystals 20 meq PO DAILY Xifaxan 550 mg tablet 550 mg PO TID trazodone 150 mg tablet 150 mg PO DAILY ondansetron 4 mg tablet,disintegrating 4 mg PO TID PRN (Reason: NAUSEA ) Eliquis 5 mg tablet 5 mg PO BID desvenlafaxine succinate 100 mg tablet extended release 24 hr 100 mg PO DAILY mesalamine 0.375 gram capsule,extended release 24hr 1.5 g PO DAILY Patient Comments: PT UNAWARE OF DOSAGE OR FREQ albuterol sulfate 2.5 mg /3 mL (0.083 %) solution for nebulization 2.5 mg INHALATION Q8H PRN (Reason: shortness of breath or wheezing) albuterol sulfate 90 mcg/actuation HFA aerosol inhaler 2 puff INHALATION Q6H PRN (Reason: Shortness Of Breath) fenofibrate 54 mg tablet 54 mg PO DAILY Qty: 90 3RF clopidogrel 75 mg tablet 75 mg PO DAILY Qty: 30 11RF losartan 25 mg tablet 25 mg PO BID Qty: 180 3RF nitroglycerin [Nitrostat] 0.4 mg tablet, sublingual 0.4 mg sublingual Q5-15M PRN (Reason: chest pain) Qty: 25 3RF Rx Instructions: do not exceed 3 doses per episode atorvastatin 40 mg tablet 40 mg PO QHS Qty: 90 3RF Referrals / Follow Up: Eliel Mosley, ACCOUNT SERVICES MANAGER-C [Primary Care Provider] - Within 1 Week Disposition Disposition (needs filled in before D/C Order can be placed): [facility] Charges/Coding Visit Charges Inpatient E&M: 13802 Disch Hosp >30min
--- NOTE | 2023-07-15 10:15 | PHA.DC_ITS ---
Pharmacy [place] Med Reconciliation Pharmacy Service has performed discharge medication reconciliation for this patient. The patient's discharge medication list was reviewed for discrepancies and discrepancies were resolved. Medications at Discharge Home Medications ropinirole 0.5 mg tablet 0.5 mg PO QHS RESTLESS LEGS 04/23/16 tamsulosin 0.4 mg capsule 0.4 mg PO QHS PROSTATE 01/30/17 omeprazole 40 mg capsule,delayed release 40 mg PO DAILY GERD 07/30/19 aripiprazole 10 mg tablet (Abilify) 10 mg PO DAILY ANXIETY 11/09/20 baclofen 10 mg tablet 10 mg PO TID PAIN 11/09/20 icosapent ethyl 1 gram capsule (Vascepa) 2 g PO BID HEART 11/09/20 donepezil 10 mg tablet 10 mg PO DAILY ALZHEIMERS 10/23/21 lamotrigine 200 mg tablet (Lamictal) 200 mg PO DAILY MOOD 10/23/21 olanzapine 10 mg tablet (Zyprexa) 10 mg PO QHS MOOD 10/23/21 acetaminophen 500 mg tablet 1,000 mg PO Q6H PRN Pain 05/28/22 fenofibrate 54 mg tablet 54 mg PO DAILY CHOLESTEROL #90 tabs 09/13/22 clopidogrel 75 mg tablet 75 mg PO DAILY BLOOD THINNER #30 tabs 01/03/23 budesonide 160 mcg-glycopyr 9 mcg-formot 4.8 mcg/actuation HFA inhaler (Breztri Aerosphere) 2 inh inhalation BID COPD #10.7 grams 01/28/23 Lactobacillus acidophilus 75 million cell-pectin 100 mg capsule (Acidophilus- Pectin) 1 cap PO DAILY GUT HEALTH 04/15/23 budesonide 3 mg capsule,delayed,extended release 3 mg PO TID CROHNS DISEASE 04/15/23 dicyclomine 20 mg tablet 20 mg PO 4X/DAY IRRITABLE BOWELS 04/15/23 fexofenadine 180 mg tablet 180 mg PO DAILY ALLERGIES 04/15/23 hydrocodone-acetaminophen 5-325mg 5mg-325mg 1 tab PO BID PAIN 04/15/23 ondansetron 4 mg disintegrating tablet 4 mg PO TID PRN NAUSEA 04/15/23 potassium chloride 20 mEq tablet,extended release(part/cryst) 20 meq PO DAILY SUPPLEMENT 04/15/23 rifaximin 550 mg tablet (Xifaxan) 550 mg PO TID DIARRHEA 04/15/23 trazodone 150 mg tablet 150 mg PO DAILY SLEEP 04/15/23 losartan 25 mg tablet 25 mg PO BID BLOOD PRESSURE #180 tabs 04/28/23 nitroglycerin 0.4 mg sublingual tablet (Nitrostat) 0.4 mg sublingual Q5-15M PRN chest pain #25 tabs 06/16/23 atorvastatin 40 mg tablet 40 mg PO QHS CHOLESTEROL #90 tabs 06/24/23 albuterol sulfate 2.5 mg/3 mL (0.083 %) solution for nebulization 2.5 mg inhalation Q8H PRN shortness of breath or wheezing 07/10/23 albuterol sulfate 90 mcg/actuation aerosol inhaler 2 puff inhalation Q6H PRN Shortness Of Breath 07/10/23 apixaban 5 mg tablet (Eliquis) 5 mg PO BID 07/10/23 desvenlafaxine succinate 100 mg tablet,extended release 24 hr 100 mg PO DAILY 07/10/23 mesalamine 0.375 gram capsule,extended release 24 hr 1.5 g PO DAILY 07/10/23 prednisone 10 mg tablets in a dose pack 10 mg PO UD #21 tabs 07/15/23
[2023-07-15] MEDS: Lidocaine 5% Patch 2 PATCH TOPICAL (10:36)
[2023-07-15] MEDS: predniSONE 20 MG Tablet 30 MG PO (10:38)
[2023-07-15] MEDS: ARIPiprazole 10 MG Tablet PO (10:38)
[2023-07-15] MEDS: Budesonide 3 MG CAPSULE.EC 9 MG PO (10:39)
[2023-07-15] MEDS: Lactobacillis Acidophilus 1 CAP PO (10:39)
[2023-07-15] MEDS: Dicyclomine 10 MG Capsule 20 MG PO (10:39)
[2023-07-15] MEDS: Donepezil HCl 10 MG Tablet PO (10:39)
[2023-07-15] MEDS: lamoTRIgine 100 MG Tablet 200 MG PO (10:40)
[2023-07-15] MEDS: Venlafaxine XR 75 MG Capsule PO (10:40)
[2023-07-15] MEDS: Mesalamine 1.2 GM Tablet PO (10:40)
[2023-07-15] MEDS: Loratadine 10 MG Tablet PO (10:40)
[2023-07-15] MEDS: APIXABAN 5 MG TABLET PO (10:40)
[2023-07-15] MEDS: Losartan Potassium 25 MG Tablet PO (10:40)
[2023-07-15] MEDS: HYDROcodone Bitartrate/Apap 5/325 Tablet PO (10:41)
[2023-07-15] MEDS: Clopidogrel Bisulfate 75 MG Tablet PO (10:41)
[2023-07-15] MEDS: Pantoprazole Sodium 40 MG Tablet PO (10:41)
[2023-07-15] MEDS: Fenofibrate 48 MG Tablet PO (10:41)
[2023-07-15 10:43] VITALS: BP 125/60; PULSE 102; RESP 16; TEMP 36.6; O2SAT 93
--- NOTE | 2023-07-15 11:24 | CASEMGMT ---
Addendum entered by Kimberli Calvo 07/15/23 12:08: COVID results sent via [facility]. Pt set up to leave at 1:30pm, daniel Ocampo/michael assistant broker set up transport, sent all discharge instructions and let pt, message left for daughter, and RN aware of transport time. Pt to [place], skilled today. JOCE Loving Original Note: completed hospital exemption in the [facility], copy placed in chart and in envelope to go w/pt. SUMMER LovingS
--- NOTE | 2023-07-15 12:43 | CASEMGMT ---
Discharge Planning Discharge orders, signed med list, covid results, and transport time sent to [facility] via [facility]. Physicians will transport patient by wheelchair at 1:30p. Nursing, SW, and patient updated. left for patients daughter. Damaris Cassidy, Discharge Planning Asst.
[2023-07-15 14:10] VITALS: BP 124/52; PULSE 93; RESP 16; TEMP 36.9; O2SAT 94
== END 2023-07-15 14:19 | disposition skilled nursing facility (03) | DRG 640 ==
LOC: ED 19:43 → MS3 21:29
PROVIDERS: Internal Medicine; Nurse Practitioner; Admitting Provider Hospitalist; Emergency Provider Emergency Medicine; PCP Nurse Practitioner Family; Visit Provider Student in an Organized Health Care Education/Training Program
DX: R62.7 Adult failure to thrive (principal); E43 Unspecified severe protein-calorie malnutrition; J44.1 Chronic obstructive pulmonary disease with (acute) exacerbation; J45.41 Moderate persistent asthma with (acute) exacerbation; N13.8 Other obstructive and reflux uropathy; F20.9 Schizophrenia, unspecified; J43.9 Emphysema, unspecified; I10 Essential (primary) hypertension; G25.81 Restless legs syndrome; F32.A Depression, unspecified; K21.9 Gastro-esophageal reflux disease without esophagitis; I25.10 Atherosclerotic heart disease of native coronary artery without angina pectoris; E78.00 Pure hypercholesterolemia, unspecified; G31.84 Mild cognitive impairment of uncertain or unknown etiology; K58.0 Irritable bowel syndrome with diarrhea; M17.12 Unilateral primary osteoarthritis, left knee; I25.2 Old myocardial infarction; G89.29 Other chronic pain; N40.1 Benign prostatic hyperplasia with lower urinary tract symptoms; R53.1 Weakness; R29.6 Repeated falls; Z95.5 Presence of coronary angioplasty implant and graft; Z68.23 Body mass index [BMI] 23.0-23.9, adult; Z79.02 Long term (current) use of antithrombotics/antiplatelets; Z79.51 Long term (current) use of inhaled steroids; Z79.899 Other long term (current) drug therapy; Z86.711 Personal history of pulmonary embolism; Z87.891 Personal history of nicotine dependence
CPT/HCPCS: 36415; 71045; 80048; 81001; 84484; 85025; 85027; 87426; 87633; 93005; 94640; 94668; 94760; 97110; 97116; 97162; 97166; 97530; 97535; 97802; 99283; A4216

== ENCOUNTER → 2023-07-29 | Outpatient (REF) | payer MEDICARE, MEDICAID, SELFPAY ==
[2018-10-16 10:45] VITALS: BMI 21.8
[2023-07-29 08:46] LABS: Potassium 3.7 mmol/L (3.5-5.1)
== END ==
LOC: OLS.WHLTCC 06:20
PROVIDERS: PCP Nurse Practitioner Family; Visit Provider Internal Medicine
DX: E87.6 Hypokalemia (principal)
CPT/HCPCS: 36415; 84132

== ENCOUNTER 2023-07-30 07:43 | Outpatient (CLI) | payer MEDICARE, MEDICAID, SELFPAY ==
[2018-10-16 10:45] VITALS: BMI 21.8
--- NOTE | 2023-07-30 07:43 | CT_ITS ---
STUDY: CT RIGHT SHOULDER REASON FOR EXAM: Male, 73 years old. Shoulder - surgical planning for [facility]a [facility] RADIATION DOSAGE (If Supplied By Facility): CTDIvol = ( 23.05 ) mGy, DLP = ( 572.87 ) mGycm TECHNIQUE: The patient was scanned in a multi detector CT scanner. High resolution transaxial imaging was performed without the administration of intravenous contrast material. Sagittal and coronal images were reconstructed. Individualized dose optimization techniques were used for this CT. COMPARISON: Right shoulder MRI dated 06/02/2023. FINDINGS: There is mild glenohumeral arthrosis with tiny marginal osteophyte formation. Intact glenoid rim, neck and visualized scapula. There are anchors in the humeral head, compatible with prior rotator cuff repair surgery. There is mild superior subluxation of the humeral head with respect to the glenoid. Intact humeral head, neck and tuberosities. There is no demonstrated acute fracture. Normal coracoid process. Normal visualized lateral clavicle. There is mild hypertrophic acromioclavicular arthrosis. There is a Type II morphology (curved), with a neutral orientation. Normal visualized muscles and soft tissue structures. CT/Extremity Upper without Contra IMPRESSION: Mild glenohumeral arthrosis. Mild superior subluxation of the humeral head with respect to the glenoid. Mild hypertrophic acromioclavicular arthrosis. Electronically Signed: Hossein Burrell MD at 8:46 EDT ,
== END 2023-07-30 23:59 | disposition home or self-care (01) ==
LOC: CT 07:43
PROVIDERS: PCP Nurse Practitioner Family; Referring Provider Orthopaedic Surgery Sports Medicine; Visit Provider Orthopaedic Surgery Sports Medicine
DX: M75.101 Unspecified rotator cuff tear or rupture of right shoulder, not specified as traumatic (principal); F03.90 Unspecified dementia, unspecified severity, without behavioral disturbance, psychotic disturbance, mood disturbance, and anxiety; J44.1 Chronic obstructive pulmonary disease with (acute) exacerbation; R53.82 Chronic fatigue, unspecified; I25.10 Atherosclerotic heart disease of native coronary artery without angina pectoris
CPT/HCPCS: 36415; 73200; 80048; 85025

== ENCOUNTER → 2023-07-30 | Outpatient (REF) | payer MEDICARE, MEDICAID, SELFPAY ==
[2018-10-16 10:45] VITALS: BMI 21.8
[2023-07-30 07:22] LABS: Absolute Lymphocyte Count 2.07 X10^3/uL (0.83-4.51); Absolute Neutrophil Count 3.6 X10^3/uL (2.0-7.7); Basophil# 0.05 X10^3/uL; Basophil% 0.7 % (0-1); Eosinophil# 0.13 X10^3/uL; Eosinophils% 1.9 % (0-5); Hematocrit 33.1 % (40-54); Hemoglobin 10.1 g/dL (13.0-16.5); Lymphocyte # 2.07 X10^3/ul (0.83-4.51); Mean Corp Hgb Conc 30.5 g/dL (32-36); Mean Corpuscular Hgb 27.3 pg (27.0-32.0); Mean Corpuscular Volume 89.5 fL (80-94); Mean Platelet Vol. 9.6 fl (6.2-12.0); Monocyte# 0.67 X10^3/uL; NRBC Flagged by Analyzer 0 % (0-5); Neutrophil # 3.59 X10^3/uL (2.7-7.7); Neutrophil % 53.9 % (47-70); Platelet Count 198 K/mm3 (150-450); RBC Distribution Width CV 14.8 % (11.6-14.6); RBC Distribution Width SD 48.3 fl (35.1-43.9); White Blood Count 6.7 K/mm3 (4.4-11.0)
[2023-07-30 07:37] LABS: Anion Gap 1 (5-15); BUN 8 mg/dL (7-18); BUN/Creat Ratio 7.7 RATIO (10-20); Calcium,Total 8.8 mg/dL (8.5-10.1); Chloride 110 mmol/L (98-107); Creatinine, Serum 1.04 mg/dL (0.70-1.30); EST Glomerular Filtration Rate 74 mL/min (>60); Est Glom Filt Rate - Afr Amer 90 mL/min (>60); Glucose 100 mg/dL (74-106); Potassium 3.8 mmol/L (3.5-5.1); Sodium Level 139 mmol/L (136-145)
== END ==
LOC: OLS.WHLTCC 05:00
PROVIDERS: PCP Nurse Practitioner Family; Visit Provider Internal Medicine
DX: R53.82 Chronic fatigue, unspecified (principal); J44.1 Chronic obstructive pulmonary disease with (acute) exacerbation; I25.10 Atherosclerotic heart disease of native coronary artery without angina pectoris; F03.90 Unspecified dementia, unspecified severity, without behavioral disturbance, psychotic disturbance, mood disturbance, and anxiety
CPT/HCPCS: 36415; 80048; 85025

== ENCOUNTER → 2023-08-06 | Outpatient (REF) | payer MEDICARE, MEDICAID, SELFPAY ==
[2018-10-16 10:45] VITALS: BMI 21.8
[2023-08-06 06:29] LABS: Absolute Lymphocyte Count 1.54 X10^3/uL (0.83-4.51); Absolute Neutrophil Count 3.1 X10^3/uL (2.0-7.7); Basophil# 0.03 X10^3/uL; Basophil% 0.6 % (0-1); Eosinophils% 3.7 % (0-5); Hematocrit 31.9 % (40-54); Hemoglobin 10.1 g/dL (13.0-16.5); Lymphocyte # 1.54 X10^3/ul (0.83-4.51); Lymphocyte % 28.8 % (19-41); Mean Corp Hgb Conc 31.7 g/dL (32-36); Mean Corpuscular Hgb 27.8 pg (27.0-32.0); Mean Corpuscular Volume 87.9 fL (80-94); Mean Platelet Vol. 9.1 fl (6.2-12.0); Monocyte# 0.43 X10^3/uL; Monocyte% 8.1 % (0-10); NRBC Flagged by Analyzer 0 % (0-5); Neutrophil # 3.05 X10^3/uL (2.7-7.7); Neutrophil % 57.1 % (47-70); Platelet Count 223 K/mm3 (150-450); RBC Distribution Width CV 14.4 % (11.6-14.6); RBC Distribution Width SD 46.5 fl (35.1-43.9); Red Blood Count 3.63 M/mm3 (4.6-6.2); White Blood Count 5.3 K/mm3 (4.4-11.0)
[2023-08-06 06:44] LABS: Anion Gap 7 (5-15); BUN 12 mg/dL (7-18); BUN/Creat Ratio 10.1 RATIO (10-20); Calcium,Total 8.9 mg/dL (8.5-10.1); Chloride 107 mmol/L (98-107); Creatinine, Serum 1.19 mg/dL (0.70-1.30); EST Glomerular Filtration Rate 63 mL/min (>60); Est Glom Filt Rate - Afr Amer 77 mL/min (>60); Glucose 98 mg/dL (74-106); Potassium 3.9 mmol/L (3.5-5.1); Sodium Level 139 mmol/L (136-145)
== END ==
LOC: OLS.WHLTCC 04:00
PROVIDERS: PCP Nurse Practitioner Family; Referring Provider Internal Medicine; Visit Provider Internal Medicine
DX: R53.82 Chronic fatigue, unspecified (principal); J44.1 Chronic obstructive pulmonary disease with (acute) exacerbation; I25.10 Atherosclerotic heart disease of native coronary artery without angina pectoris; F03.90 Unspecified dementia, unspecified severity, without behavioral disturbance, psychotic disturbance, mood disturbance, and anxiety
CPT/HCPCS: 36415; 80048; 85025

== ENCOUNTER → 2023-08-13 | Outpatient (REF) | payer MEDICARE, MEDICAID, SELFPAY ==
[2018-10-16 10:45] VITALS: BMI 21.8
[2023-08-13 06:44] LABS: Absolute Lymphocyte Count 1.72 X10^3/uL (0.83-4.51); Absolute Neutrophil Count 3.2 X10^3/uL (2.0-7.7); Basophil# 0.04 X10^3/uL; Basophil% 0.7 % (0-1); Eosinophil# 0.09 X10^3/uL; Eosinophils% 1.6 % (0-5); Hemoglobin 9.6 g/dL (13.0-16.5); Lymphocyte # 1.72 X10^3/ul (0.83-4.51); Lymphocyte % 30.8 % (19-41); Mean Corpuscular Hgb 27.5 pg (27.0-32.0); Mean Corpuscular Volume 88.8 fL (80-94); Mean Platelet Vol. 9.4 fl (6.2-12.0); Monocyte# 0.49 X10^3/uL; Monocyte% 8.8 % (0-10); NRBC Flagged by Analyzer 0 % (0-5); Neutrophil # 3.15 X10^3/uL (2.7-7.7); Neutrophil % 56.3 % (47-70); Platelet Count 278 K/mm3 (150-450); RBC Distribution Width CV 14.1 % (11.6-14.6); RBC Distribution Width SD 45.7 fl (35.1-43.9); Red Blood Count 3.49 M/mm3 (4.6-6.2); White Blood Count 5.6 K/mm3 (4.4-11.0)
[2023-08-13 07:02] LABS: Anion Gap 7 (5-15); BUN 18 mg/dL (7-18); BUN/Creat Ratio 16.4 RATIO (10-20); Chloride 109 mmol/L (98-107); EST Glomerular Filtration Rate 69 mL/min (>60); Est Glom Filt Rate - Afr Amer 84 mL/min (>60); Glucose 107 mg/dL (74-106); Potassium 3.8 mmol/L (3.5-5.1); Sodium Level 140 mmol/L (136-145)
== END ==
LOC: OLS.WHLTCC 05:00
PROVIDERS: PCP Nurse Practitioner Family; Visit Provider Internal Medicine
DX: R53.82 Chronic fatigue, unspecified (principal); J44.1 Chronic obstructive pulmonary disease with (acute) exacerbation; I25.10 Atherosclerotic heart disease of native coronary artery without angina pectoris
CPT/HCPCS: 36415; 80048; 85025

== ENCOUNTER → 2023-08-20 | Outpatient (REF) | payer MEDICARE, MEDICAID, SELFPAY ==
[2018-10-16 10:45] VITALS: BMI 21.8
[2023-08-20 07:54] LABS: Absolute Lymphocyte Count 1.72 X10^3/uL (0.83-4.51); Absolute Neutrophil Count 3.9 X10^3/uL (2.0-7.7); Basophil# 0.05 X10^3/uL; Basophil% 0.8 % (0-1); Eosinophil# 0.07 X10^3/uL; Eosinophils% 1.1 % (0-5); Hematocrit 33.1 % (40-54); Hemoglobin 10.2 g/dL (13.0-16.5); Lymphocyte # 1.72 X10^3/ul (0.83-4.51); Lymphocyte % 26.3 % (19-41); Mean Corp Hgb Conc 30.8 g/dL (32-36); Mean Corpuscular Hgb 27.3 pg (27.0-32.0); Mean Corpuscular Volume 88.7 fL (80-94); Mean Platelet Vol. 9.6 fl (6.2-12.0); Monocyte# 0.68 X10^3/uL; Monocyte% 10.4 % (0-10); NRBC Flagged by Analyzer 0 % (0-5); Neutrophil % 59.7 % (47-70); Platelet Count 270 K/mm3 (150-450); RBC Distribution Width CV 14.2 % (11.6-14.6); RBC Distribution Width SD 45.9 fl (35.1-43.9); Red Blood Count 3.73 M/mm3 (4.6-6.2); White Blood Count 6.5 K/mm3 (4.4-11.0)
[2023-08-20 09:41] LABS: Anion Gap 6 (5-15); BUN 17 mg/dL (7-18); BUN/Creat Ratio 15.5 RATIO (10-20); Chloride 108 mmol/L (98-107); EST Glomerular Filtration Rate 69 mL/min (>60); Est Glom Filt Rate - Afr Amer 84 mL/min (>60); Glucose 103 mg/dL (74-106); Potassium 3.9 mmol/L (3.5-5.1); Sodium Level 140 mmol/L (136-145)
[2023-09-09 09:43] VITALS: BMI 21.8
== END ==
LOC: OLS.WHLTCC 05:00
PROVIDERS: PCP Nurse Practitioner Family; Visit Provider Internal Medicine
DX: J44.1 Chronic obstructive pulmonary disease with (acute) exacerbation (principal); R53.82 Chronic fatigue, unspecified; I25.10 Atherosclerotic heart disease of native coronary artery without angina pectoris; F03.90 Unspecified dementia, unspecified severity, without behavioral disturbance, psychotic disturbance, mood disturbance, and anxiety
CPT/HCPCS: 36415; 80048; 85025

== ENCOUNTER → 2023-08-27 | Outpatient (REF) | payer MEDICARE, MEDICAID, SELFPAY ==
[2018-10-16 10:45] VITALS: BMI 21.8
[2023-08-27 07:28] LABS: Absolute Lymphocyte Count 1.48 X10^3/uL (0.83-4.51); Absolute Neutrophil Count 3.6 X10^3/uL (2.0-7.7); Basophil# 0.03 X10^3/uL; Basophil% 0.5 % (0-1); Eosinophil# 0.14 X10^3/uL; Eosinophils% 2.4 % (0-5); Hematocrit 31.6 % (40-54); Hemoglobin 9.8 g/dL (13.0-16.5); Lymphocyte # 1.48 X10^3/ul (0.83-4.51); Lymphocyte % 25.2 % (19-41); Mean Corpuscular Hgb 27.5 pg (27.0-32.0); Mean Corpuscular Volume 88.5 fL (80-94); Mean Platelet Vol. 9.7 fl (6.2-12.0); Monocyte# 0.57 X10^3/uL; Monocyte% 9.7 % (0-10); NRBC Flagged by Analyzer 0 % (0-5); Neutrophil # 3.58 X10^3/uL (2.7-7.7); Platelet Count 228 K/mm3 (150-450); RBC Distribution Width CV 13.9 % (11.6-14.6); RBC Distribution Width SD 45.1 fl (35.1-43.9); Red Blood Count 3.57 M/mm3 (4.6-6.2); White Blood Count 5.9 K/mm3 (4.4-11.0)
[2023-08-27 07:36] LABS: Anion Gap 5 (5-15); BUN 12 mg/dL (7-18); BUN/Creat Ratio 11.7 RATIO (10-20); Calcium,Total 8.7 mg/dL (8.5-10.1); Chloride 108 mmol/L (98-107); Creatinine, Serum 1.03 mg/dL (0.70-1.30); EST Glomerular Filtration Rate 75 mL/min (>60); Est Glom Filt Rate - Afr Amer 90 mL/min (>60); Glucose 106 mg/dL (74-106); Potassium 3.9 mmol/L (3.5-5.1); Sodium Level 139 mmol/L (136-145)
== END ==
LOC: OLS.WHLTCC 05:00
PROVIDERS: PCP Nurse Practitioner Family; Visit Provider Internal Medicine
DX: R53.82 Chronic fatigue, unspecified (principal); J44.1 Chronic obstructive pulmonary disease with (acute) exacerbation; I25.10 Atherosclerotic heart disease of native coronary artery without angina pectoris
CPT/HCPCS: 36415; 80048; 85025

== ENCOUNTER → 2023-09-01 | Outpatient (REF) | payer MEDICARE, MEDICAID, SELFPAY ==
[2018-10-16 10:45] VITALS: BMI 21.8
[2023-09-01 08:39] LABS: Hematocrit 33.1 % (40-54); Hemoglobin 10.1 g/dL (13.0-16.5); Mean Corp Hgb Conc 30.5 g/dL (32-36); Mean Corpuscular Hgb 27.3 pg (27.0-32.0); Mean Corpuscular Volume 89.5 fL (80-94); Mean Platelet Vol. 9.5 fl (6.2-12.0); Platelet Count 235 K/mm3 (150-450); RBC Distribution Width CV 13.7 % (11.6-14.6); RBC Distribution Width SD 44.9 fl (35.1-43.9); White Blood Count 6.1 K/mm3 (4.4-11.0)
[2023-09-01 09:06] LABS: Anion Gap 8 (5-15); BUN 19 mg/dL (7-18); BUN/Creat Ratio 17.4 RATIO (10-20); Calcium,Total 8.7 mg/dL (8.5-10.1); Chloride 111 mmol/L (98-107); Creatinine, Serum 1.09 mg/dL (0.70-1.30); EST Glomerular Filtration Rate 70 mL/min (>60); Est Glom Filt Rate - Afr Amer 85 mL/min (>60); Glucose 105 mg/dL (74-106); Magnesium 2.2 mg/dL (1.6-2.6); Potassium 4.1 mmol/L (3.5-5.1); Sodium Level 142 mmol/L (136-145)
[2023-09-01 09:21] LABS: International Normalized Ratio 1.1; Prothrombin Time (Protime)PT. 14.6 SECONDS (11.7-14.9)
[2023-09-01 09:22] LABS: Partial Thromboplast Time 31.3 Seconds (24.1-36.2)
[2023-09-01 13:58] LABS: Hemoglobin A1c 5.5 % (3.8-5.6)
[2023-09-09 09:43] VITALS: BMI 21.8
== END ==
LOC: OLS.WHLTCC 04:00
PROVIDERS: PCP Nurse Practitioner Family; Referring Provider Internal Medicine; Visit Provider Internal Medicine
DX: G47.30 Sleep apnea, unspecified (principal); I10 Essential (primary) hypertension; J44.1 Chronic obstructive pulmonary disease with (acute) exacerbation; M62.561 Muscle wasting and atrophy, not elsewhere classified, right lower leg; M62.562 Muscle wasting and atrophy, not elsewhere classified, left lower leg; M15.0 Primary generalized (osteo)arthritis; Z86.711 Personal history of pulmonary embolism; Z79.899 Other long term (current) drug therapy
CPT/HCPCS: 36415; 80048; 83036; 83735; 85027; 85610; 85730; 87081

== ENCOUNTER 2023-09-03 10:57 | Observation (INO) | payer MEDICARE, MEDICAID, SELFPAY ==
[2018-10-16 10:45] VITALS: BMI 21.8
[2023-09-02 08:11] VITALS: BMI 21.8
[2023-09-03] VITALS (20 sets, daily range): BP systolic 114–153; BP diastolic 66–84; PULSE 83–100; RESP 12–18; TEMP 36.2–37.7; O2SAT 90–100; BMI 26.6
--- NOTE | 2023-09-03 06:27 | PCM.PRE.AN2 ---
ASA Classification* ASA Classification ASA Classification: 3 Assessment & Plan Anesthesia* Anesthesia Assessment Anesthesia Assessment: Discussed sedation and/or anesthesia options, risks, benefits, and alternatives with patient/parents/legal guardian/POA. Questions invited. The patient/parents/legal guardian/POA seems to understand and agrees to proceed with anesthesia plan. Reviewed the physical assessment, medical history, allergy history and patient home medications list prior to surgery/procedure/anesthetic and documented any changes. Performed airway and anesthesia risk assessments. 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 When Was Last Pacemaker Check QUESTION #4 FULL TEXT: You/Your Family Experience fever (hyperthermia) with Anesthesia Last Oral Intake Last Oral intake: Last Oral Intake NPO since Meds taken in AM with sips of water? 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 Has anyone observed you stop breathing during sleep? STOP Results Positive 09/02/23 11:05 QUESTION #5 FULL TEXT : Do you snore loudly (louder than talking or can be heard through closed doors)? 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 Specify any problems Hx of Preganancy in last 3 N/A 09/02/23 11:05 Months Nurse Filling Out Transfusion DSCHRIBER 09/02/23 11:05 & Questions: Date: 09/02/23 09/02/23 11:05 Time: 11:09 09/02/23 11:05 Patient unable to answer at this time (ie. 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: /Reproductive Hx- rotor casting machine operator Hx Now No 09/02/23 11:05 Gestational Age (in weeks): EDC: Hx Hx Para Hx Section SAB No 09/02/23 11:05 Active Medications Active Medications: Current Medications Generic Name Dose Route Start Last Admin Trade Name Freq PRN Reason Stop Dose Admin Acetaminophen 1,000 mg 09/03/23 07:30 Acetaminophen 500 Mg Tablet PO 09/03/23 07:31 X1 ONE Dexamethasone Sodium Phosphate 10 mg 09/03/23 07:30 Dexamethasone 10 Mg/Ml Vial IV 09/03/23 07:31 X1 ONE Gabapentin 600 mg 09/03/23 07:30 Gabapentin 600 Mg Tablet PO 09/03/23 07:31 X1 ONE Tranexamic Acid 1,000 mg/ 110 mls @ 660 mls/hr 09/03/23 07:30 Sodium Chloride IV 09/03/23 07:39 X1 ONE Tranexamic Acid 1,000 mg/ 110 mls @ 660 mls/hr 09/03/23 07:30 Sodium Chloride IV 09/03/23 07:39 X1 ONE Lactated Ringer's 1,000 mls @ 125 mls/hr 09/03/23 07:30 IV 09/03/23 15:29 .Q8H TYREE Cefazolin Sodium 2 gm/ Sodium 110 mls @ 150 mls/hr 09/03/23 07:30 Chloride IV 09/03/23 08:13 PREOP ONE Magnesium Sulfate 1 gm/ 102 mls @ 408 mls/hr 09/03/23 07:30 Dextrose IV 09/03/23 07:44 X1 ONE Lactated Ringer's 1,000 mls @ 15 mls/hr 09/03/23 05:45 IV .Q48H TYREE Insulin Human Lispro 1 - 6 unit 09/03/23 07:30 Insulin Lispro 100 Unit/Ml Insuln.Pen SC 09/03/23 18:00 Q4H PRN PRN BG>/= 180, SEE PROTOCOL Protocol Scopolamine HBr 1 patch 09/03/23 07:30 Scopolamine 1mg/72hr Patch TD 09/03/23 07:31 X1 ONE Anesthesia Focused Assessment* Airway Assessment Mouth opens: >3 cm Mallampati Score: II Focused Labs Anesthesia Preop lab: CBC WBC 6.1 K/mm3 (4.4-11.0) 09/01/23 05:35 RBC 3.70 M/mm3 (4.6-6.2) L 09/01/23 05:35 Hgb 10.1 g/dL (13.0-16.5) L 09/01/23 05:35 Hct 33.1 % (40-54) L 09/01/23 05:35 Plt Count 235 K/mm3 (150-450) 09/01/23 05:35 CHEMISTRY Potassium 4.1 mmol/L (3.5-5.1) 09/01/23 05:35 Sodium 142 mmol/L (136-145) 09/01/23 05:35 Magnesium 2.2 mg/dL (1.6-2.6) 09/01/23 05:35 Phosphorus 3.0 mg/dL (2.5-4.9) 01/17/23 09:27 BUN 19 mg/dL (7-18) H 09/01/23 05:35 Creatinine 1.09 mg/dL (0.70-1.30) 09/01/23 05:35 Glucose 105 mg/dL (74-106) 09/01/23 05:35 TSH 1.49 uIU/mL (0.358-3.74) 05/18/21 09:08 COAG PT 14.6 SECONDS (11.7-14.9) 09/01/23 05:35 Review of Systems (Anesthesia) ROS Narrative System reviewed and no additional complaints, except as documented. [facility] Medical History Lives in alf Schizophrenia Primary osteoarthritis, right shoulder Severe malnutrition Generalized weakness Adult failure to thrive Localized osteoarthritis of right knee Pulmonary embolism Ventral hernia, recurrent Rheumatoid arthritis Chronic pain Kidney disease Congestive heart failure (CHF) Pain of left knee and lower leg Complete rotator cuff tear Marijuana use Shoulder impingement SLAP tear of shoulder Acromioclavicular joint arthritis Essential hypertension (08/02/20) Chronic obstructive lung disease (08/02/20) Neck sprain (03/01/11) Neck pain (03/01/11) Malaise and fatigue (08/02/20) Low back pain (03/01/11) Displacement of lumbar intervertebral disc without myelopathy (03/01/11) Brachial neuritis (05/31/11) Wears glasses Dementia Alcohol use Ambulates with cane Arthritis Prostate disease High cholesterol Back pain History of IBS Emphysema, unspecified Shortness of breath on exertion History of pain when walking History of stress test History of echocardiogram Cardiology follow-up encounter History of CHF (congestive heart failure) History of irregular heartbeat Osteoarthritis of left knee Bipolar disorder Diabetes GERD (gastroesophageal reflux disease) Former smoker CPAP (continuous positive airway pressure) dependence COPD (chronic obstructive pulmonary disease) Myocardial infarct Hypertension Migraines Irregular heart beat PND (paroxysmal nocturnal dyspnea) Orthopnea Cervical spondylosis Cervical radiculitis Partial tear of right rotator cuff Essential (primary) hypertension Smoking greater than 40 pack years Dementia PVCs (premature ventricular contractions) Lung nodule < 6cm on CT Dyspnea on exertion Wheezing Fatigue Chest tightness Cannabis dependence DDD (degenerative disc disease) BPH (benign prostatic hyperplasia) Pleurisy Anxiety Depression Atherosclerotic heart disease of [place] coronary artery without angina pectoris Hyperlipidemia Trigger finger MONIQUE (obstructive sleep apnea) Syncope and collapse Stage 2 moderate COPD by GOLD classification Peptic ulcer disease Restless leg syndrome Schizophrenia Asthma History of pulmonary embolism Home Medications ?Medication ?Instructions ?Recorded ?Last Taken ?Type ropinirole 0.5 mg tablet 0.5 mg PO QHS RESTLESS LEGS 04/23/16 07/09/23 History tamsulosin 0.4 mg capsule 0.4 mg PO QHS PROSTATE 01/30/17 07/09/23 History baclofen 10 mg tablet 10 mg PO TID PRN PRN PAIN 11/09/20 07/09/23 History icosapent ethyl 1 gram capsule 2 g PO BID HEART 11/09/20 07/09/23 History (Vascepa) donepezil 10 mg tablet 10 mg PO DAILY ALZHEIMERS 10/23/21 07/09/23 History lamotrigine 200 mg tablet 200 mg PO DAILY MOOD 10/23/21 07/09/23 History (Lamictal) olanzapine 10 mg tablet (Zyprexa) 10 mg PO QHS MOOD 10/23/21 07/09/23 History acetaminophen 500 mg tablet 1,000 mg PO BID PRN PRN Pain 05/28/22 07/09/23 History clopidogrel 75 mg tablet 75 mg PO DAILY BLOOD THINNER #30 01/03/23 08/27/23 Rx tabs budesonide 160 mcg-glycopyr 9 2 inh inhalation BID COPD #10.7 01/28/23 07/09/23 Rx mcg-formot 4.8 mcg/actuation HFA grams inhaler (Breztri Aerosphere) dicyclomine 20 mg tablet 20 mg PO TID IRRITABLE BOWELS 04/15/23 07/09/23 History fexofenadine 180 mg tablet 180 mg PO DAILY PRN PRN ALLERGIES 04/15/23 07/09/23 History ondansetron 4 mg disintegrating 4 mg PO TID PRN NAUSEA 04/15/23 07/09/23 History tablet potassium chloride 20 mEq 20 meq PO DAILY SUPPLEMENT 04/15/23 07/09/23 History tablet,extended release(part/cryst) trazodone 150 mg tablet 150 mg PO QHS SLEEP 04/15/23 07/09/23 History nitroglycerin 0.4 mg sublingual 0.4 mg sublingual Q5-15M PRN chest 06/16/23 Unknown Rx tablet (Nitrostat) pain #25 tabs atorvastatin 40 mg tablet 40 mg PO QHS CHOLESTEROL #90 tabs 06/24/23 07/09/23 Rx albuterol sulfate 2.5 mg/3 mL 2.5 mg inhalation Q8H PRN 07/10/23 07/09/23 History (0.083 %) solution for nebulization shortness of breath or wheezing albuterol sulfate 90 mcg/actuation 2 puff inhalation Q6H PRN 07/10/23 07/09/23 History aerosol inhaler Shortness Of Breath apixaban 5 mg tablet (Eliquis) 5 mg PO BID 07/10/23 07/09/23 History desvenlafaxine succinate 100 mg 100 mg PO DAILY 07/10/23 07/09/23 History tablet,extended release 24 hr mesalamine 0.375 gram 1.5 g PO BID 07/10/23 Unknown History capsule,extended release 24 hr aluminum-mag hydroxide-simethicone 15 ml PO Q4H PRN PRN indigestion 09/02/23 Unknown History 400 mg-400 mg-40 mg/5 mL oral susp (Mylanta Maximum Strength) ferrous sulfate 325 mg (65 mg 325 mg PO DAILY 09/02/23 Unknown History iron) tablet furosemide 20 mg tablet (Lasix) 20 mg PO DAILY 09/02/23 Unknown History hydrocodone-acetaminophen 5-325mg 1 tab PO BID 09/02/23 Unknown History 5mg-325mg losartan 25 mg tablet 50 mg PO DAILY BLOOD PRESSURE 09/02/23 Unknown History Allergy/AdvReac Type Severity Reaction Status Date / Time Quinolones Allergy Unknown unknown Verified 09/02/23 10:46 aspirin Allergy Itching, Verified 09/02/23 10:46 Hives levofloxacin (From Levaquin) Allergy Hives, Verified 09/02/23 10:46 Itching Penicillins Allergy Hives, Verified 09/02/23 10:46 Itching Family History Mother CAD (coronary artery disease) Sister Diabetes Surgical History Hx of colonoscopy S/P right rotator cuff repair Hx of repair of right rotator cuff (06/04/22) H/O left knee surgery History of laparoscopic cholecystectomy History of appendectomy H/O cervical spine surgery H/O ventral hernia repair History of left heart catheterization (04/2016) History of coronary artery stent placement (10/16/18) Social History household members: none housing: house current occupational status: disabled Smoking Status: Former smoker quit date: 02/14/15 how long ago did patient quit smokin years ago second hand exposure: Yes alcohol intake: former details: Quit 9 years ago substance use type: does not use caffeine: Yes Type: coffee what type of physical activity do you participate in: none seatbelt use: always do you feel safe at home: Yes
[2023-09-03] MEDS: Lactated Ringers 1,000 ML 15 ML IV (06:38)
[2023-09-03] MEDS: Magnesium 1 GM over 15 mins IV (06:39)
[2023-09-03] MEDS: Gabapentin 600 MG Tablet PO (06:43)
[2023-09-03] MEDS: Acetaminophen 500 MG Tablet 1000 MG PO ×2 (06:43→21:00)
[2023-09-03] MEDS: Scopolamine 1mg/72hr Patch 1 PATCH TD (06:44)
--- NOTE | 2023-09-03 07:07 | HP.PCM_ITS ---
HPI - General HPI Narrative LILLIAN GUERRERO, is a 73 M who presents for right reverse total shoulder arthroplasty. No changes to history and physical exam. Right shoulder marked. Patient understands the operation. Explained the postoperative recovery narcotic counseling as well as risks alternatives benefits. No changes to the patient's history and physical exam. Patient cannot unfortunately receive a block due to COPD plan for local anesthetic. The patient understands wishes to proceed no further concerns blood thinners are held. MR#: [id number] Acct: [id number] Name: LILLIAN GUERRERO Rep #: [id number] : 1950 Provider: Dr. Seth Vazquez MD Age/Sex: 73/M Location: [facility] [place] Status: Signed Intake Vital Signs 07/14/2411:58 Height 6 ft Intake Visit Reasons: RIGHT SHOULDER Accompanied by: Self Is patient in pain?: Yes Allergies Quinolones Allergy (Unknown, Verified 08/04/23 11:31) unknownaspirin Allergy (Verified 08/04/23 11:31) Itching, Hiveslevofloxacin (From Levaquin) Allergy (Verified 08/04/23 11:31) Hives, ItchingPenicillins Allergy (Verified 08/04/23 11:31) Hives, Itching Medications ?Medication ?Instructions ?Recorded ?Confirmed ?Type ropinirole 0.5 mg tablet 0.5 mg PO QHS RESTLESS LEGS 04/23/16 08/04/23 History tamsulosin 0.4 mg capsule 0.4 mg PO QHS PROSTATE 01/30/17 08/04/23 History omeprazole 40 mg capsule,delayed 40 mg PO DAILY GERD 07/30/19 08/04/23 History release aripiprazole 10 mg tablet (Abilify) 10 mg PO DAILY ANXIETY 11/09/20 08/04/23 History baclofen 10 mg tablet 10 mg PO TID PAIN 11/09/20 08/04/23 History icosapent ethyl 1 gram capsule 2 g PO BID HEART 11/09/20 08/04/23 History (Vascepa) donepezil 10 mg tablet 10 mg PO DAILY ALZHEIMERS 10/23/21 08/04/23 History lamotrigine 200 mg tablet 200 mg PO DAILY MOOD 10/23/21 08/04/23 History (Lamictal) olanzapine 10 mg tablet (Zyprexa) 10 mg PO QHS MOOD 10/23/21 08/04/23 History acetaminophen 500 mg tablet 1,000 mg PO Q6H PRN Pain 05/28/22 08/04/23 History fenofibrate 54 mg tablet 54 mg PO DAILY CHOLESTEROL #90 tabs 09/13/22 08/04/23 Rx clopidogrel 75 mg tablet 75 mg PO DAILY BLOOD THINNER #30 01/03/23 08/04/23 Rx tabs budesonide 160 mcg-glycopyr 9 2 inh inhalation BID COPD #10.7 01/28/23 08/04/23 Rx mcg-formot 4.8 mcg/actuation HFA grams inhaler (Breztri Aerosphere) Lactobacillus acidophilus 75 1 cap PO DAILY GUT HEALTH 04/15/23 08/04/23 History million cell-pectin 100 mg capsule (Acidophilus-Pectin) budesonide 3 mg 3 mg PO TID CROHNS DISEASE 04/15/23 08/04/23 History capsule,delayed,extended release dicyclomine 20 mg tablet 20 mg PO 4X/DAY IRRITABLE BOWELS 04/15/23 08/04/23 History fexofenadine 180 mg tablet 180 mg PO DAILY ALLERGIES 04/15/23 08/04/23 History ondansetron 4 mg disintegrating 4 mg PO TID PRN NAUSEA 04/15/23 08/04/23 History tablet potassium chloride 20 mEq 20 meq PO DAILY SUPPLEMENT 04/15/23 08/04/23 History tablet,extended release(part/cryst) rifaximin 550 mg tablet (Xifaxan) 550 mg PO TID DIARRHEA 04/15/23 08/04/23 History trazodone 150 mg tablet 150 mg PO DAILY SLEEP 04/15/23 08/04/23 History losartan 25 mg tablet 25 mg PO BID BLOOD PRESSURE #180 04/28/23 08/04/23 Rx tabs nitroglycerin 0.4 mg sublingual 0.4 mg sublingual Q5-15M PRN chest 06/16/23 08/04/23 Rx tablet (Nitrostat) pain #25 tabs atorvastatin 40 mg tablet 40 mg PO QHS CHOLESTEROL #90 tabs 06/24/23 08/04/23 Rx albuterol sulfate 2.5 mg/3 mL 2.5 mg inhalation Q8H PRN 07/10/23 08/04/23 History (0.083 %) solution for nebulization shortness of breath or wheezing albuterol sulfate 90 mcg/actuation 2 puff inhalation Q6H PRN 07/10/23 08/04/23 History aerosol inhaler Shortness Of Breath apixaban 5 mg tablet (Eliquis) 5 mg PO BID 07/10/23 08/04/23 History desvenlafaxine succinate 100 mg 100 mg PO DAILY 07/10/23 08/04/23 History tablet,extended release 24 hr mesalamine 0.375 gram 1.5 g PO DAILY 07/10/23 08/04/23 History capsule,extended release 24 hr prednisone 10 mg tablets in a dose 10 mg PO UD #21 tabs 07/15/23 08/04/23 Rx pack PFSH Medical History (Updated 08/04/23 @ 11:29 by Seth Vazquez MD) Primary osteoarthritis, right shoulder Severe malnutrition Generalized weakness Adult failure to thrive Localized osteoarthritis of right knee Pulmonary embolism Ventral hernia, recurrent Rheumatoid arthritis Chronic pain Kidney disease Congestive heart failure (CHF) Pain of left knee and lower leg Complete rotator cuff tear Marijuana use Sleep apnea Shoulder impingement SLAP tear of shoulder Acromioclavicular joint arthritis Essential hypertension (08/02/20) Chronic obstructive lung disease (08/02/20) Neck sprain (03/01/11) Neck pain (03/01/11) Malaise and fatigue (08/02/20) Low back pain (03/01/11) Displacement of lumbar intervertebral disc without myelopathy (03/01/11) Brachial neuritis (05/31/11) Wears glasses Dementia Alcohol use Ambulates with cane Arthritis Prostate disease High cholesterol Back pain Dietary restriction History of IBS Emphysema, unspecified Shortness of breath on exertion History of pain when walking History of stress test History of echocardiogram Cardiology follow-up encounter History of CHF (congestive heart failure) History of irregular heartbeat Osteoarthritis of left knee Bipolar disorder Diabetes GERD (gastroesophageal reflux disease) Former smoker CPAP (continuous positive airway pressure) dependence COPD (chronic obstructive pulmonary disease) Myocardial infarct Hypertension Chest pain Migraines Irregular heart beat PND (paroxysmal nocturnal dyspnea) Orthopnea Cervical spondylosis Cervical radiculitis Partial tear of right rotator cuff Essential (primary) hypertension Smoking greater than 40 pack years Dementia PVCs (premature ventricular contractions) Lung nodule < 6cm on CT Dyspnea on exertion Wheezing Fatigue Chest tightness Cannabis dependence DDD (degenerative disc disease) BPH (benign prostatic hyperplasia) Pleurisy Anxiety Depression Atherosclerotic heart disease of [place] coronary artery without angina pectoris Hyperlipidemia Trigger finger MONIQUE (obstructive sleep apnea) Syncope and collapse Stage 2 moderate COPD by GOLD classification Peptic ulcer disease Restless leg syndrome Schizophrenia Asthma History of pulmonary embolism Surgical History (Updated 07/23/23 @ 00:03 by Farhan Frazier) S/P right rotator cuff repair Hx of repair of right rotator cuff (06/04/22) H/O left knee surgery History of laparoscopic cholecystectomy History of appendectomy H/O cervical spine surgery H/O ventral hernia repair History of left heart catheterization (04/2016) History of coronary artery stent placement (10/16/18) Family History Mother CAD (coronary artery disease)Sister Diabetes Social History household members: none housing: house current occupational status: disabled Smoking Status: Former smoker quit date: 02/14/15 how long ago did patient quit smokin years ago second hand exposure: Yes alcohol intake: former details: Quit 9 years ago substance use type: does not use caffeine: Yes Type: coffee what type of physical activity do you participate in: none seatbelt use: always do you feel safe at home: Yes HPI RIGHT SHOULDER Details: This documentation accurately reflects the service provided and the decisions made by me, Dr. Seth Vazquez MD 08/04/23 1128. Part of today?s visit was documented by [ ], acting as scribe. LILLIAN GUERRERO is a 73 year old M here today for follow-up right shoulder CT scan for surgical planning Ortho Exam General General: Yes no acute distress Neurologic: Yes alert and Yes oriented x3 Psychologic: Yes reasonable and appropriate Right Shoulder Skin/Wound: Yes CDI, Yes healed, No ecchymosis, No erythema and No swelling Testing: Positive Hawkin's and empty can SHOULDER: Active forward elevation only to about 30 degrees, passively to 80 degrees external rotation actively and passively about 20 degrees. No lag sign. His forward elevation strength is quite for 4 - and his external rotation strength is 4. Normal sensation motor function of the upper extremity including the axillary nerve. Supplemental Info [facility] Imaging Services [address] [place] [address] Extremity Upper without Contra MR#: [id number] Acct: [id number] Name: LILLIAN GUERRERO Rep #: [id number] : 1950 M 73 From: Hossein Burrell MD PCP: GAURAV Walden Status: REG CLI Study: Extremity Upper without Contra Date of Exam: 07/30/23 Exam# [id number] Ordering Dr: Seth Vazquez MD STUDY: CT RIGHT SHOULDER REASON FOR EXAM: Male, 73 years old. Shoulder - surgical planning for rtsa BLUEPRINT RADIATION DOSAGE (If Supplied By Facility): CTDIvol = ( 23.05 ) mGy, DLP = ( 572.87 ) mGycm TECHNIQUE: The patient was scanned in a multi detector CT scanner. High resolution transaxial imaging was performed without the administration of intravenous contrast material. Sagittal and coronal images were reconstructed. Individualized dose optimization techniques were used for this CT. COMPARISON: Right shoulder MRI dated 06/02/2023. FINDINGS: There is mild glenohumeral arthrosis with tiny marginal osteophyte formation. Intact glenoid rim, neck and visualized scapula. There are anchors in the humeral head, compatible with prior rotator cuff repair surgery. There is mild superior subluxation of the humeral head with respect to the glenoid. Intact humeral head, neck and tuberosities. There is no demonstrated acute fracture. Normal coracoid process. Normal visualized lateral clavicle. There is mild hypertrophic acromioclavicular arthrosis. There is a Type II morphology (curved), with a neutral orientation. Normal visualized muscles and soft tissue structures. CT/Extremity Upper without Contra IMPRESSION: Mild glenohumeral arthrosis. Mild superior subluxation of the humeral head with respect to the glenoid. Mild hypertrophic acromioclavicular arthrosis. Electronically Signed: Hossein Burrell MD at 8:46 EDT Reading Location ID and State: [id number] / [place] hg a1c 5.6 I independently reviewed the imaging. Concur with radiologist report. Coding Level of Care Code Off vis,est,level 4 Diagnoses Chronic right shoulder pain M25.511; G89.29 Primary osteoarthritis, right shoulder M19.011 Assessment and Plan Assessment and Plan (1) Chronic right shoulder pain: Status: Chronic Plan: 73 year old M here today for follow-up right shoulder CT scan for surgical planning. Patient does use a walker but this is more so for balance I would not characterize him as walker dependent or overly dependent on his upper extremities for ambulation but this is no relative contraindication despite this I think he is a reasonable candidate for a reverse shoulder arthroplasty on the right side. Has signs of arthritis and a large rotator cuff tear in this patient population I think be reasonable choice. We again went over the nonoperative options but he would like to proceed with the surgery. He does have diabetes that increases his risk but his hemoglobin A1c most recently was under 6. Also he is on blood thinners so we will get cardiac clearance with Dr. Lamb prior to proceeding. Pros and cons risks and benefits were discussed with the patient including but not limited to infection, instability, wear, fracture, pain, stiffness, bleeding, damage to surrounding structures, neurovascular injury, recurrence or retear, failure or wear of hardware or fixation, instability, fracture, deep vein thrombosis and pulmonary embolism, anesthetic risks, , patient dissatisfaction, need for further surgery and other risks. Patient understood and wished to proceed with surgery, and signed the informed consent documentation. (2) Primary osteoarthritis, right shoulder: [facility] Medical History Lives in half-way Schizophrenia Primary osteoarthritis, right shoulder Severe malnutrition Generalized weakness Adult failure to thrive Localized osteoarthritis of right knee Pulmonary embolism Ventral hernia, recurrent Rheumatoid arthritis Chronic pain Kidney disease Congestive heart failure (CHF) Pain of left knee and lower leg Complete rotator cuff tear Marijuana use Shoulder impingement SLAP tear of shoulder Acromioclavicular joint arthritis Essential hypertension (08/02/20) Chronic obstructive lung disease (08/02/20) Neck sprain (03/01/11) Neck pain (03/01/11) Malaise and fatigue (08/02/20) Low back pain (03/01/11) Displacement of lumbar intervertebral disc without myelopathy (03/01/11) Brachial neuritis (05/31/11) Wears glasses Dementia Alcohol use Ambulates with cane Arthritis Prostate disease High cholesterol Back pain History of IBS Emphysema, unspecified Shortness of breath on exertion History of pain when walking History of stress test History of echocardiogram Cardiology follow-up encounter History of CHF (congestive heart failure) History of irregular heartbeat Osteoarthritis of left knee Bipolar disorder Diabetes GERD (gastroesophageal reflux disease) Former smoker CPAP (continuous positive airway pressure) dependence COPD (chronic obstructive pulmonary disease) Myocardial infarct Hypertension Migraines Irregular heart beat PND (paroxysmal nocturnal dyspnea) Orthopnea Cervical spondylosis Cervical radiculitis Partial tear of right rotator cuff Essential (primary) hypertension Smoking greater than 40 pack years Dementia PVCs (premature ventricular contractions) Lung nodule < 6cm on CT Dyspnea on exertion Wheezing Fatigue Chest tightness Cannabis dependence DDD (degenerative disc disease) BPH (benign prostatic hyperplasia) Pleurisy Anxiety Depression Atherosclerotic heart disease of [place] coronary artery without angina pectoris Hyperlipidemia Trigger finger MONIQUE (obstructive sleep apnea) Syncope and collapse Stage 2 moderate COPD by GOLD classification Peptic ulcer disease Restless leg syndrome Schizophrenia Asthma History of pulmonary embolism Home Medications ?Medication ?Instructions ?Recorded ?Last Taken ?Type ropinirole 0.5 mg tablet 0.5 mg PO QHS RESTLESS LEGS 04/23/16 09/02/23 History tamsulosin 0.4 mg capsule 0.4 mg PO QHS PROSTATE 01/30/17 09/02/23 History baclofen 10 mg tablet 10 mg PO TID PRN PRN PAIN 11/09/20 07/09/23 History icosapent ethyl 1 gram capsule 2 g PO BID HEART 11/09/20 09/02/23 History (Vascepa) donepezil 10 mg tablet 10 mg PO DAILY ALZHEIMERS 10/23/21 09/02/23 History lamotrigine 200 mg tablet 200 mg PO DAILY MOOD 10/23/21 09/02/23 History (Lamictal) olanzapine 10 mg tablet (Zyprexa) 10 mg PO QHS MOOD 10/23/21 09/02/23 History acetaminophen 500 mg tablet 1,000 mg PO BID PRN PRN Pain 05/28/22 07/09/23 History clopidogrel 75 mg tablet 75 mg PO DAILY BLOOD THINNER #30 01/03/23 08/27/23 Rx tabs budesonide 160 mcg-glycopyr 9 2 inh inhalation BID COPD #10.7 01/28/23 09/02/23 Rx mcg-formot 4.8 mcg/actuation HFA grams inhaler (Breztri Aerosphere) dicyclomine 20 mg tablet 20 mg PO TID IRRITABLE BOWELS 04/15/23 09/02/23 History fexofenadine 180 mg tablet 180 mg PO DAILY PRN PRN ALLERGIES 04/15/23 07/09/23 History ondansetron 4 mg disintegrating 4 mg PO TID PRN NAUSEA 04/15/23 07/09/23 History tablet potassium chloride 20 mEq 20 meq PO DAILY SUPPLEMENT 04/15/23 09/02/23 History tablet,extended release(part/cryst) trazodone 150 mg tablet 150 mg PO QHS SLEEP 04/15/23 09/02/23 History nitroglycerin 0.4 mg sublingual 0.4 mg sublingual Q5-15M PRN chest 06/16/23 Unknown Rx tablet (Nitrostat) pain #25 tabs atorvastatin 40 mg tablet 40 mg PO QHS CHOLESTEROL #90 tabs 06/24/23 09/02/23 Rx albuterol sulfate 2.5 mg/3 mL 2.5 mg inhalation Q8H PRN 07/10/23 07/09/23 History (0.083 %) solution for nebulization shortness of breath or wheezing albuterol sulfate 90 mcg/actuation 2 puff inhalation Q6H PRN 07/10/23 07/09/23 History aerosol inhaler Shortness Of Breath apixaban 5 mg tablet (Eliquis) 5 mg PO BID 07/10/23 09/01/23 History desvenlafaxine succinate 100 mg 100 mg PO DAILY 07/10/23 09/02/23 History tablet,extended release 24 hr mesalamine 0.375 gram 1.5 g PO BID 07/10/23 09/02/23 History capsule,extended release 24 hr aluminum-mag hydroxide-simethicone 15 ml PO Q4H PRN PRN indigestion 09/02/23 Unknown History 400 mg-400 mg-40 mg/5 mL oral susp (Mylanta Maximum Strength) ferrous sulfate 325 mg (65 mg 325 mg PO DAILY 09/02/23 09/02/23 History iron) tablet furosemide 20 mg tablet (Lasix) 20 mg PO DAILY 09/02/23 09/02/23 History hydrocodone-acetaminophen 5-325mg 1 tab PO BID 09/02/23 Unknown History 5mg-325mg losartan 25 mg tablet 50 mg PO DAILY BLOOD PRESSURE 09/02/23 09/02/23 History Allergy/AdvReac Type Severity Reaction Status Date / Time Quinolones Allergy Unknown unknown Verified 09/03/23 06:46 aspirin Allergy Itching, Verified 09/03/23 06:46 Hives levofloxacin (From Levaquin) Allergy Hives, Verified 09/03/23 06:46 Itching Penicillins Allergy Hives, Verified 09/03/23 06:46 Itching Family History Mother CAD (coronary artery disease) Sister Diabetes Surgical History Hx of colonoscopy S/P right rotator cuff repair Hx of repair of right rotator cuff (06/04/22) H/O left knee surgery History of laparoscopic cholecystectomy History of appendectomy H/O cervical spine surgery H/O ventral hernia repair History of left heart catheterization (04/2016) History of coronary artery stent placement (10/16/18) Social History household members: none housing: house current occupational status: disabled Smoking Status: Former smoker quit date: 02/14/15 how long ago did patient quit smokin years ago second hand exposure: Yes alcohol intake: former details: Quit 9 years ago substance use type: does not use caffeine: Yes Type: coffee what type of physical activity do you participate in: none seatbelt use: always do you feel safe at home: Yes Vital Signs Vital Signs Vital Signs: 09/03/23 06:50 09/03/23 06:50 Temperature 98.2 F Temperature Source Temporal Pulse Rate 84 Respiratory Rate 16 Respiratory Pattern Normal Blood Pressure 134/84 H Blood Pressure Mean 100 Blood Pressure Source Monitor Blood Pressure Position Semi-Fowlers Blood Pressure Location Left Arm Pulse Ox 96 Oxygen Delivery Method Room Air Weight Weight: 196 lb 3.382 oz Body Mass Index (BMI) 26.6
[2023-09-03 07:13] LABS: Bedside Glucose 105 mg/dL (74-106)
--- NOTE | 2023-09-03 07:30 | FEM._PTH ---
PATIENT: LILLIAN GUERRERO LOC: MS3 U#:[id number] AGE/SX: 73/M ROOM: [facility] RE09/03/[address]: Dr. Seth Vazquez MD : 1950 BED: 1 DIS: 09/05/2023 SPEC #: [id number] RECD: 09/03/23 12:59 STATUS: FERNANDA USHA #: [id number] RIMMA: 09/03/23 07:[address]: Seth Vazquez DEPT: SURGICAL PATHOLOGY RECD BY: Davide Colon ENTERED: 09/03/23 14:04 SP TYPE: FEM HEAD OTHR DR: Eliel Mosley, GAURAV Tissues: Hip, NOS Procedures: Decalcification bone/plaque Surgery Specimen Level IV HEADER OPERATION: Right reverse total shoulder replacement PRE-OP DIAGNOSIS: Chronic right shoulder pain TISSUE SUBMITTED: Humeral head MICROSCOPIC DIAGNOSIS Bone and tissue right shoulder, total shoulder replacement/resection: Humeral head with mild degenerative osteoarthritic changes. SJ/mr 09/08/2023 MICROSCOPIC DESCRIPTION Slides are reviewed. GROSS DESCRIPTION Received is one container labeled with the patient's name and designated Right femoral head. The specimen consists of a discoid fragment of cristina bone measuring 5.2cm in diameter and 2.2cm in thickness. The articular surfaces display cartilaginous erosion and focal osteophyte formation. [employer] sections are submitted in two cassettes after decalcification. AM: 09/03/2023 TC:5 CPT: 57973, 36140
[2023-09-03] MEDS: dexAMETHasone 10 MG/ML Vial IV (07:41)
[2023-09-03] MEDS: Cefazolin 2 GM in 0.9% Normal Saline (100mL Bag) 100 ML IV (07:48)
[2023-09-03] MEDS: TXA 1000mg in NS100 100ml (IVPB at Closure) 660 MG IV (07:48)
[2023-09-03] MEDS: Bupivacaine 0.25% 30 ML Vial (08:10)
[2023-09-03] MEDS: Vancomycin IV 1,000 MG/20 ML Vial 1000 MG OPERA.SITE ×2 (08:30)
--- NOTE | 2023-09-03 09:35 | RAD_ITS ---
CLINICAL HISTORY: PAIN RIGHT shoulder reverse total replacement with pain. Date: 09/03/2023 10:11 AM Date of : 1950 Images assigned to this order were provided in conjunction with a surgical procedure performed in the operating room/procedural suite. Please see operative report for details. Fluoroscopic images: 1 Fluoroscopic time: 7.7 seconds Cumulative dose: NA, mGym2; 0.5 to; mGy Imaging documents reverse shoulder arthroplasty with normal alignment. Refer to procedural note for complete description. Impressions: 1. Fluoroscopic guidance for surgical confirmation. Reverse shoulder arthroplasty with normal alignment. Electronically Signed: Patrick Hatfield MD at 0:04 EDT , RAD/Shoulder min 2 Views IMPRESSION: undefined
[2023-09-03] MEDS: TXA 1000mg in NS100 100ml (IVPB at Incision) 660 MG IV (10:11)
--- NOTE | 2023-09-03 10:37 | OP.PCM_ITS ---
Problems Associated Problem List Diagnoses (1) Primary osteoarthritis, right shoulder: Report of Operation Date of Procedure: 09/03/23 Pre-Operative Diagnosis: Right shoulder osteoarthritis Post-Operative Diagnosis: Same Surgery/Procedure Performed:: Right reverse total shoulder arthroplasty Surgeon: Seth Vazquez Type of Anesthesia: General and Local Anesthesiologist: Sherwin Tompkins Estimated Blood Loss (mL): 50 Description of Procedure: Patient brought to the operating theater. Placed supine on the beachchair. General anesthetic induced. 2 g IV Ancef and 1 g IV tranexamic acid administered prior to start the case. Arm barnard to the patient's the right side Trimano. Patient sat up at a 45 degree angle. Upper extremity prepped and draped in the usual sterile fashion with chlorhexidine-based prep solution allowing over 3 minutes drying time prior to draping. Preoperative timeout performed from the site patient the surgery. Bed turned 90 degrees. Made a standard deltopectoral incision just lateral to the coracoid. Carried dissection down through skin and subcutaneous tissue achieved meticulous hemostasis. The interval was developed cephalic vein retracted laterally protected. I incised on the lateral aspect of the conjoined tendon retracted this medially along with the pectoralis major. Identified the upper border the pectoralis insertion and released the upper border one third of that. Did a biceps tenotomy and tagged that long head of the biceps with #2 FiberWire and performed a biceps tenodesis to the upper border of the pectoralis major. I developed the rotator interval all the way to the glenoid. I palpated the axillary nerve protected that. I dissected on either side of the subscapularis insertion. I then performed using oscillating saw for a small emil of bone in the lesser tuberosity osteotomy. I tagged this with #2 FiberWire sutures r etracted this out of the way. I externally rotated the head I released the capsule along the inferior metaphyseal area of the humerus. Externally rotated this I then made my cut at 30 degrees of retroversion 135 degrees humeral head cut and remove the proximal head. Minimal osteophytes but I shaved those down. I then placed the pin for a size 3 humeral component. I used the size of #1 reverse reamer and then impacted using the broaches up to a size 3 standard reverse Tornier perform stem. I impacted this into place. I had removed some metal anchors as well as some sutures in the canal. I then turned my attention to the glenoid side I remove the labrum circumferentially. I slightly reduced the long head of the triceps insertion from the inferior aspect of the glenoid. I developed the interval between the subscapularis and the anterior capsule to achieve better excursion of the tendon. I placed the pin slightly inferior and centered according to the guide. There is some mild retroversion and superior inclination so therefore the plan was for a 15 degree full wedge placed at 11:00 on the glenoid. I placed the pain for this and then used the centralizing drill and then the circumferential reamer for about 1 mm according to the preoperative templating with plan for 3 mm total lateralization. I then used the center drill bit for the planned center 6.5 millimeter screw. I used pulse lavage. Cleaned away any interposed soft tissue. I then attempted to place the 15 degree full wedge but there is some mild comminution around the entry site at the glenoid therefore I upsized this to a 9.5 mm fully threaded central screw drilled and tapped for this. This achieved a very good purchase and backside seating and very solid purchase into the bone when fully seated. Wedge apex at 11 oclock per planning. I then drilled and inserted the superior cortical screw at the 11 o'clock position. I then drilled and placed the other fully threaded locking screws for a total of 4 peripheral screws. This was a good purchase seating of the 25 mm of baseplate. I then used pulse lavage again and then impacted and screwed into place the 39 mm standard glenosphere. I then trialed with 3 size 8 humeral stem with standard polyethylene possible component this was quite tight and the greater tuberosity is not clearing. Some bone off the greater tuberosity with good clearance and then I also switched to a 10 degree offset polyethylene +0 component this achieved good full range of motion no impingement internal rotation is to back pocket full forward elevation 165 degrees with the arm able to get to the mouth and back of the head. Trial components were removed. Then used a drill holes to drill holes on either side of the subscapularis lesser tuberosity osteotomy. I passed #2 FiberWire suture and loop configuration for future repair. I used pulse Avage in the canal. I then selected the final component size 3 stem with 145 degree polyethylene component with a 10 degree wedge I impacted this into place with good purchase with the loop and the sutures around the component. I then repair of the subscapularis lesser tuberosity osteotomy. I took radiographs while I trialing as well as with the final components in place and then did final checks with full range of motion no impingement with final components in place. I then used vancomycin powder around the component. Wound thoroughly irrigated using low-pressure lavage. Normal saline. I then closed subcutaneous tissue with 2-0 Vicryl suture and skin with 3-0 Monocryl. Skin cleaned with wet dry dr essing. 20 cc of quarter percent bupivacaine instilled in and around the soft tissue. Skin cleaned with wet dry dressing followed application of Steri-Strips and silver Mepilex with a sling for the upper extremity. Patient woken up from a general anesthetic transferred off the operating table taken postanesthetic care unit in stable addition. All sponge needle return counts were correct no complications plan for patient in the sling possibly admitted or discharged home according to her pain levels and patient comfort. cpt 60094? Complications none Admit VTE Documentation VTE Present on Admission: No VTE Mechan Device Prophylaxis: SCD's VTE Pharm Prophylaxis ordered?: No Reason prophylaxis not ordered:: Treatment Not Indicated Procedures Musculoskeletal [id number]: Other Procedure See Report
--- NOTE | 2023-09-03 11:22 | PCM.POST.ANE ---
Anesthesia: Postop Eval I Current Vital Signs Temperature: 97.4 F Pulse Rate: 98 Blood Pressure: 139/66 Respiratory Rate: 12 Pulse Ox: 94 Oxygen Delivery Method: Simple Mask Oxygen Flow Rate (L/min): 6 Assessment Airway patent: Yes Spontaneous unlabored respirations: Yes Mental status: Calm and Asleep nausea: No Vomiting: No Anesthesia Complication: No Fluid Hydration Crystalloid volume administer (ml): 1,500 Total IV fluid infused: 1,500 Progress Note Anesthesia document: Postop Eval 1 completed: Yes
[2023-09-03 11:42] LABS: Bedside Glucose 129 mg/dL (74-106)
[2023-09-03] MEDS: Lactated Ringers 1,000 ML 125 ML IV (11:58)
--- NOTE | 2023-09-03 12:21 | POSTOPAN2_ITS ---
Anesthesia Postop Eval I Sum Postop Eval Completion status Anesthesia document: Postop Eval 1 completed: Yes Anesthesia Postop Eval I Summary Anesthesia Postop Eval I Summary: Anesthesia Postop Eval I: Assessment Summary Airway patent Yes 09/03/23 11:23 MARKET DEVELOPMENT [email or web address] Spontaneous unlabored Yes 09/03/23 11:23 MARKET DEVELOPMENT [email or web address] respirations Mental status Calm,Asleep 09/03/23 11:23 MARKET DEVELOPMENT [email or web address] nausea No 09/03/23 11:23 MARKET DEVELOPMENT [email or web address] Vomiting No 09/03/23 11:23 MARKET DEVELOPMENT [email or web address] Anesthesia Postop Eval I: Fluid Summary Crystalloid volume administer 1,500 09/03/23 11:23 MARKET DEVELOPMENT [email or web address] (ml) Colloids volume administered ( ml) Blood Product volume administered (ml) Total IV fluid infused 1,500 09/03/23 11:23 MARKET DEVELOPMENT [email or web address] Anesthesia Postop Eval I: Summary Notes Anesthesia Complication No 09/03/23 11:23 MARKET DEVELOPMENT [email or web address] Anesthesia Complication Comment: Post-operative progress note Anesthesia: Postop Eval II Evaluation Mental status: Awake Pain Level: 2 nausea: No Vomiting: No Complications Anesthesia Complication: No
--- NOTE | 2023-09-03 12:21 | PCM.POSTANE2 ---
Anesthesia Postop Eval I Sum Postop Eval Completion status Anesthesia document: Postop Eval 1 completed: Yes Anesthesia Postop Eval I Summary Anesthesia Postop Eval I Summary: Anesthesia Postop Eval I: Assessment Summary Airway patent Yes 09/03/23 11:23 [email or web address] [email or web address] Spontaneous unlabored Yes 09/03/23 11:23 MANAGER [email or web address] respirations Mental status Calm,Asleep 09/03/23 11:23 MANAGER [email or web address] nausea No 09/03/23 11:23 MANAGER [email or web address] Vomiting No 09/03/23 11:23 MANAGER [email or web address] Anesthesia Postop Eval I: Fluid Summary Crystalloid volume administer 1,500 09/03/23 11:23 MANAGER [email or web address] (ml) Colloids volume administered ( ml) Blood Product volume administered (ml) Total IV fluid infused 1,500 09/03/23 11:23 MANAGER [email or web address] Anesthesia Postop Eval I: Summary Notes Anesthesia Complication No 09/03/23 11:23 MANAGER [email or web address] Anesthesia Complication Comment: Post-operative progress note Anesthesia: Postop Eval II Evaluation Mental status: Awake Pain Level: 2 nausea: No Vomiting: No Complications Anesthesia Complication: No
[2023-09-03] MEDS: oxyCODONE 5 MG Tablet PO ×3 (14:15→23:25)
[2023-09-03] MEDS: Furosemide 20 MG Tablet PO (17:10)
[2023-09-03] MEDS: lamoTRIgine 100 MG Tablet 200 MG PO (17:10)
[2023-09-03] MEDS: Donepezil HCl 10 MG Tablet PO (17:10)
[2023-09-03] MEDS: Losartan Potassium 50 MG Tablet PO (17:10)
--- NOTE | 2023-09-03 17:50 | PCM.CONS.GEN ---
Assessment & Plan Assessment/Plan (1) Primary osteoarthritis, right shoulder: PLAN: Plan This 73-year-old gentleman being seen for perioperative management of multiple comorbidities after right shoulder surgery 1. Perioperative management of right shoulder primary osteoarthritis with right reverse total shoulder arthroplasty on 09/03/2023: Patient is on the floor. Mild trickling of blood from the dressing. It was stable. Advised to call Dr. Vazquez if it is not controlled. Pain control. PT and OT. Incentive spirometry every hour. Bowel and bladder control. High risk of DVT, on Eliquis 5 mg 2. Chronic pulmonary embolism: Patient was admitted in March 2023 for pulmonary embolism. Patient follows in pulmonary clinic advised continue Eliquis for 3 months. Continue Eliquis 5 mg p.o. twice daily. 3. COPD, not on home oxygen: Patient is not in acute exacerbation and obstructive sleep. Symptoms well-controlled on triple therapy, respiratory. Patient quit smoking in February 2015. History of more than 40 pack years of smoking. As per pulmonary walking pulse oximetry test, January 2023 did not require oxygen during walking 6 minutes, walked 744 feet. 4. Patient also quit drinking alcohol at the same time in 2014. He was drinking 12 packs of beer every day 5. CAD status post stent, hypertension and dyslipidemia: Home medications continued. Patient on Plavix, losartan, and atorvastatin 6. BPH with bladder outlet obstruction: On tamsulosin continue 7. Restless leg syndrome: On Requip continue 8. Chronic IBS with diarrhea prominent: No acute issues 9. Other comorbidities include GERD, mild cognitive impairment, schizophrenia and chronic pain syndrome: Patient on trazodone, lamotrigine, donezepil 10. Chronic allergic: On fexofenadine. DVT prophylaxis: Eliquis 5 mg twice daily HPI Consult Data Date of Consult: 09/03/23 HPI Narrative Reason for Consultation: Perioperative management with history of COPD and CAD. HPI Narrative: LILLIAN GUERRERO, is a 73 M who who is being admitted after elective right reverse total shoulder arthroplasty. Patient was seen for perioperative management with history of CAD and COPD. At present, patient denies chest pain pressure, tightness, shortness of breath, near-syncope or syncope. He had MRI with 2 cardiac stents, more than 5 to 10 years ago. Recently denies any symptoms related to angina. He has chronic shortness of breath on walking. He stated he could not walk even 1 block. He was on oxygen for COPD that was taken off by event marketing specialist about 2 years ago. He is on the schedule inhaler and as needed albuterol. Patient is having mild bleeding from right shoulders surgical site. Denies burning micturition or acute ClorazeTabs symptoms. [facility] Medical History Lives in correction Schizophrenia Primary osteoarthritis, right shoulder Severe malnutrition Generalized weakness Adult failure to thrive Localized osteoarthritis of right knee Pulmonary embolism Ventral hernia, recurrent Rheumatoid arthritis Chronic pain Kidney disease Congestive heart failure (CHF) Pain of left knee and lower leg Complete rotator cuff tear Marijuana use Shoulder impingement SLAP tear of shoulder Acromioclavicular joint arthritis Essential hypertension (08/02/20) Chronic obstructive lung disease (08/02/20) Neck sprain (03/01/11) Neck pain (03/01/11) Malaise and fatigue (08/02/20) Low back pain (03/01/11) Displacement of lumbar intervertebral disc without myelopathy (03/01/11) Brachial neuritis (05/31/11) Wears glasses Dementia Alcohol use Ambulates with cane Arthritis Prostate disease High cholesterol Back pain History of IBS Emphysema, unspecified Shortness of breath on exertion History of pain when walking History of stress test History of echocardiogram Cardiology follow-up encounter History of CHF (congestive heart failure) History of irregular heartbeat Osteoarthritis of left knee Bipolar disorder Diabetes GERD (gastroesophageal reflux disease) Former smoker CPAP (continuous positive airway pressure) dependence COPD (chronic obstructive pulmonary disease) Myocardial infarct Hypertension Migraines Irregular heart beat PND (paroxysmal nocturnal dyspnea) Orthopnea Cervical spondylosis Cervical radiculitis Partial tear of right rotator cuff Essential (primary) hypertension Smoking greater than 40 pack years Dementia PVCs (premature ventricular contractions) Lung nodule < 6cm on CT Dyspnea on exertion Wheezing Fatigue Chest tightness Cannabis dependence DDD (degenerative disc disease) BPH (benign prostatic hyperplasia) Pleurisy Anxiety Depression Atherosclerotic heart disease of cabaz[place] coronary artery without angina pectoris Hyperlipidemia Trigger finger MONIQUE (obstructive sleep apnea) Syncope and collapse Stage 2 moderate COPD by GOLD classification Peptic ulcer disease Restless leg syndrome Schizophrenia Asthma History of pulmonary embolism Home Medications ?Medication ?Instructions ?Recorded ?Last Taken ?Type ropinirole 0.5 mg tablet 0.5 mg PO QHS RESTLESS LEGS 04/23/16 09/02/23 History tamsulosin 0.4 mg capsule 0.4 mg PO QHS PROSTATE 01/30/17 09/02/23 History baclofen 10 mg tablet 10 mg PO TID PRN PRN PAIN 11/09/20 07/09/23 History icosapent ethyl 1 gram capsule 2 g PO BID HEART 11/09/20 09/02/23 History (Vascepa) donepezil 10 mg tablet 10 mg PO DAILY ALZHEIMERS 10/23/21 09/02/23 History lamotrigine 200 mg tablet 200 mg PO DAILY MOOD 10/23/21 09/02/23 History (Lamictal) olanzapine 10 mg tablet (Zyprexa) 10 mg PO QHS MOOD 10/23/21 09/02/23 History acetaminophen 500 mg tablet 1,000 mg PO BID PRN PRN Pain 05/28/22 07/09/23 History clopidogrel 75 mg tablet 75 mg PO DAILY BLOOD THINNER #30 01/03/23 08/27/23 Rx tabs budesonide 160 mcg-glycopyr 9 2 inh inhalation BID COPD #10.7 01/28/23 09/02/23 Rx mcg-formot 4.8 mcg/actuation HFA grams inhaler (Breztri Aerosphere) dicyclomine 20 mg tablet 20 mg PO TID IRRITABLE BOWELS 04/15/23 09/02/23 History fexofenadine 180 mg tablet 180 mg PO DAILY PRN PRN ALLERGIES 04/15/23 07/09/23 History ondansetron 4 mg disintegrating 4 mg PO TID PRN NAUSEA 04/15/23 07/09/23 History tablet potassium chloride 20 mEq 20 meq PO DAILY SUPPLEMENT 04/15/23 09/02/23 History tablet,extended release(part/cryst) trazodone 150 mg tablet 150 mg PO QHS SLEEP 04/15/23 09/02/23 History nitroglycerin 0.4 mg sublingual 0.4 mg sublingual Q5-15M PRN chest 06/16/23 Unknown Rx tablet (Nitrostat) pain #25 tabs atorvastatin 40 mg tablet 40 mg PO QHS CHOLESTEROL #90 tabs 06/24/23 09/02/23 Rx albuterol sulfate 2.5 mg/3 mL 2.5 mg inhalation Q8H PRN 07/10/23 07/09/23 History (0.083 %) solution for nebulization shortness of breath or wheezing albuterol sulfate 90 mcg/actuation 2 puff inhalation Q6H PRN 07/10/23 07/09/23 History aerosol inhaler Shortness Of Breath apixaban 5 mg tablet (Eliquis) 5 mg PO BID 07/10/23 09/01/23 History desvenlafaxine succinate 100 mg 100 mg PO DAILY 07/10/23 09/02/23 History tablet,extended release 24 hr mesalamine 0.375 gram 1.5 g PO BID 07/10/23 09/02/23 History capsule,extended release 24 hr aluminum-mag hydroxide-simethicone 15 ml PO Q4H PRN PRN indigestion 09/02/23 Unknown History 400 mg-400 mg-40 mg/5 mL oral susp (Mylanta Maximum Strength) ferrous sulfate 325 mg (65 mg 325 mg PO DAILY 09/02/23 09/02/23 History iron) tablet furosemide 20 mg tablet (Lasix) 20 mg PO DAILY 09/02/23 09/02/23 History hydrocodone-acetaminophen 5-325mg 1 tab PO BID 09/02/23 Unknown History 5mg-325mg losartan 25 mg tablet 50 mg PO DAILY BLOOD PRESSURE 09/02/23 09/02/23 History Allergy/AdvReac Type Severity Reaction Status Date / Time Quinolones Allergy Unknown unknown Verified 09/03/23 06:46 aspirin Allergy Itching, Verified 09/03/23 06:46 Hives levofloxacin (From Levaquin) Allergy Hives, Verified 09/03/23 06:46 Itching Penicillins Allergy Hives, Verified 09/03/23 06:46 Itching Family History Mother CAD (coronary artery disease) Sister Diabetes Surgical History Hx of colonoscopy S/P right rotator cuff repair Hx of repair of right rotator cuff (06/04/22) H/O left knee surgery History of laparoscopic cholecystectomy History of appendectomy H/O cervical spine surgery H/O ventral hernia repair History of left heart catheterization (04/2016) History of coronary artery stent placement (10/16/18) Social History household members: none housing: house current occupational status: disabled Smoking Status: Former smoker quit date: 02/14/15 how long ago did patient quit smokin years ago second hand exposure: Yes alcohol intake: former details: Quit 9 years ago substance use type: does not use caffeine: Yes Type: coffee what type of physical activity do you participate in: none seatbelt use: always do you feel safe at home: Yes ROS ROS Narrative Constitutional: Reports fatigue and weakness. No fever. HEENT: Reports systems reviewed and no addt'l complaints, except as documented Respiratory/Chest: No acute shortness of breath or respiratory distress or wheezing. Chronic dyspnea on exertion CVS: No chest pain pressure or tightness. History of CAD Gastrointestinal: Denies coffee ground emesis, hematemesis or vomiting Genitourinary: Denies burning urination or new urinary tract symptoms Musculoskeletal: Chronic degenerative arthritis of right shoulder, left shoulder and left knee. Denies acute joint pain. No acute injury Neurologic: Denies seizure-like symptoms. skin: No ulcer. No rash Endocrinology: Reports systems reviewed and no addt'l complaints, except as documented Hematologic/Lymphatic: Reports systems reviewed and no addt'l complaints, except as documented Rest 14 ROS are negative except as mentioned in HPI Physical Exam Narrative General: Alert, Oriented x3, Cooperative HEENT: Atraumatic, PERRLA, EOMI, Normocephalic Oral: Oral mucosa moist no Gingival or Mucosal Lesions/ Ulcerations Neck: Supple, No JVD, Negative Carotid Bruits Chest wall/Lungs: Air entry diminished in bilateral lung bases. Expiratory phase prolonged no crepitation/rhonchi or wheezes Cardiovascular: Regular rate, Regular Rhythm, Normal S1, Normal S2, No M/G/R Abdomen: Bowel Sounds Present, Soft, Non Tender, Non-Distended : No dysuria. No renal angle tenderness. No suprapubic tenderness. Extremities: No edema, Capillary Refill Less than 3 Seconds Skin: Right shoulder surgical dressing with mild oozing blood from inferior margin of dressing. Was taped by nursing staff Musculoskeletal: Recent right shoulder reverse total arthroplasty. Chronic degenerative arthritis of left knee and left shoulder, ROM chronically limited Neurological: Cranial nerves II-XII grossly intact, DTR 2+/4. No acute focal neurological deficit. Psych/Mental Status: Normal Affect, Appropriate. Lab / Micro Data Labs: Laboratory Results - last 24 hr 09/03/23 06:06: POC Glucose 105 09/03/23 11:19: POC Glucose 129 H Charges/Coding Visit Charges Office Visits / Consults: 60349 IP Consult L4
--- NOTE | 2023-09-03 18:25 | NURSING ---
DRSG TO RT SHOULDER CHANGED, DRSG WAS NOT SATURATED BUT BLOODY DRNG WAS OOZING OUT THE BOTTOM. GOWN CHANGED D/T BLOODY DRNG. INCISION WAS NOT ACTIVELY OOZING WHEN DRSG WAS CHANGED BUT IT WAS NOTICEABLE THAT IT WAS AT THE DISTAL END OF THE INCISION. BRUISING NOTED MEDIAL OF DRSG
[2023-09-03] MEDS: Ipratropium/Albuterol Sulfate 3 ML AMPUL.NEB INHALATION (19:24)
[2023-09-03] MEDS: Budesonide Respules 0.5 MG/2 ML AMPUL.NEB. INHALATION (19:24)
[2023-09-03] MEDS: Pramipexole Di-HCl 0.25 MG Tablet PO (20:56)
[2023-09-03] MEDS: Atorvastatin Calcium 40 MG Tablet PO (20:56)
[2023-09-03] MEDS: traZODone 50 MG Tablet 150 MG PO (20:56)
[2023-09-03] MEDS: Tamsulosin HCl 0.4 MG Capsule PO (20:56)
[2023-09-03] MEDS: Mesalamine 1.2 GM Tablet PO (20:56)
[2023-09-03] MEDS: Dicyclomine 10 MG Capsule 20 MG PO (20:57)
[2023-09-03] MEDS: OLANZapine 10 MG Tablet PO (20:57)
[2023-09-03] MEDS: Cefazolin 0.5 GM in 0.9% Normal Saline (50mL Bag) 50 ML IV (23:25)
[2023-09-04] VITALS (9 sets, daily range): BP systolic 82–120; BP diastolic 48–69; PULSE 82–106; RESP 14–20; TEMP 36.3–37.1; O2SAT 92–96
[2023-09-04] MEDS: oxyCODONE 5 MG Tablet PO ×2 (04:06→07:51)
[2023-09-04 05:45] LABS: Absolute Lymphocyte Count 1.56 X10^3/uL (0.83-4.51); Absolute Neutrophil Count 8.5 X10^3/uL (2.0-7.7); Basophil# 0.03 X10^3/uL; Basophil% 0.3 % (0-1); Hematocrit 28.7 % (40-54); Hemoglobin 8.9 g/dL (13.0-16.5); Lymphocyte # 1.56 X10^3/ul (0.83-4.51); Lymphocyte % 13.5 % (19-41); Mean Corpuscular Hgb 27.1 pg (27.0-32.0); Mean Corpuscular Volume 87.2 fL (80-94); Mean Platelet Vol. 9.5 fl (6.2-12.0); Monocyte# 1.45 X10^3/uL; Monocyte% 12.5 % (0-10); NRBC Flagged by Analyzer 0 % (0-5); Neutrophil # 8.48 X10^3/uL (2.7-7.7); Neutrophil % 73.1 % (47-70); Platelet Count 240 K/mm3 (150-450); RBC Distribution Width CV 13.9 % (11.6-14.6); Red Blood Count 3.29 M/mm3 (4.6-6.2); White Blood Count 11.6 K/mm3 (4.4-11.0)
[2023-09-04] MEDS: Dicyclomine 10 MG Capsule 20 MG PO ×3 (05:57→22:06)
[2023-09-04] MEDS: Acetaminophen 500 MG Tablet 1000 MG PO ×3 (05:57→22:08)
[2023-09-04] MEDS: Cefazolin 0.5 GM in 0.9% Normal Saline (50mL Bag) 50 ML IV ×2 (05:57→13:50)
[2023-09-04 06:09] LABS: Anion Gap 9 (5-15); BUN 21 mg/dL (7-18); BUN/Creat Ratio 16.9 RATIO (10-20); Calcium,Total 8.4 mg/dL (8.5-10.1); Chloride 105 mmol/L (98-107); Creatinine, Serum 1.24 mg/dL (0.70-1.30); EST Glomerular Filtration Rate 60 mL/min (>60); Est Glom Filt Rate - Afr Amer 73 mL/min (>60); Glucose 143 mg/dL (74-106); Potassium 3.9 mmol/L (3.5-5.1); Sodium Level 138 mmol/L (136-145)
[2023-09-04] MEDS: Losartan Potassium 50 MG Tablet PO (07:45)
[2023-09-04] MEDS: Furosemide 20 MG Tablet PO (07:45)
[2023-09-04] MEDS: Ferrous Sulfate 325 MG Tablet PO (07:46)
[2023-09-04] MEDS: Donepezil HCl 10 MG Tablet PO (07:46)
[2023-09-04] MEDS: Clopidogrel Bisulfate 75 MG Tablet PO (07:46)
[2023-09-04] MEDS: Potassium Chloride Oral Tablet 20 MEQ PO (07:46)
[2023-09-04] MEDS: APIXABAN 5 MG TABLET PO ×2 (07:47→22:06)
[2023-09-04] MEDS: Venlafaxine XR 75 MG Capsule PO (07:47)
[2023-09-04] MEDS: Mesalamine 1.2 GM Tablet PO ×2 (07:47→22:06)
[2023-09-04] MEDS: lamoTRIgine 100 MG Tablet 200 MG PO (07:47)
[2023-09-04] MEDS: Budesonide Respules 0.5 MG/2 ML AMPUL.NEB. INHALATION ×2 (07:56→19:28)
[2023-09-04] MEDS: Ipratropium/Albuterol Sulfate 3 ML AMPUL.NEB INHALATION ×3 (07:56→19:28)
--- NOTE | 2023-09-04 09:05 | CASEMGMT ---
RN CM into pt room, pt reports he was at [facility] prior to surgery and wishes to return there. Updated SW.
--- NOTE | 2023-09-04 09:13 | CASEMGMT ---
Addendum entered by Damaris Cassidy 09/04/23 13:35: Therapy evals sent to [facility]. Requested precert be started. Damaris Cassidy DC Planning Asst. Addendum entered by Damaris Cassidy 09/04/23 09:21: Patient will need new auth to return. Damaris Cassidy DC Planning Asst. Original Note: Discharge Planning Updates sent to [facility] via [employer]. Damaris Cassidy DC Planning Asst.
--- NOTE | 2023-09-04 11:38 | CASEMGMT ---
Met with patient to complete DOE form. DOE form explained to patient who verbally acknowledged understanding of form. Patient physically unable to sign form. Original form placed in pt?s chart and copy provided to patient. Damaris Cassidy, Discharge Planning Asst
--- NOTE | 2023-09-04 11:40 | PCM.PN.HOSP ---
Reason for Visit Reason for Visit: Diagnoses Primary osteoarthritis, right shoulder (09/03/23) Subjective Subjective No acute events overnight. Saw patient bedside this morning. Sitting up comfortably in bedside chair, conversing normally, in no acute distress. Reports mild right shoulder pain this morning. He has taken 3 doses of oxycodone 10 mg since yesterday afternoon, states this has been moderately helpful for his pain. He has no pain at rest but does have some pain when up and moving around. Otherwise feels fine, no other acute concerns morning. Objective Data Objective Data Vital Signs: Vital Signs Temp Pulse Resp BP Pulse Ox O2 Del Method O2 Flow Rate 98.0 F 104 H 15 103/64 94 Room Air 2 09/04/23 07:45 09/04/23 07:45 09/04/23 07:45 09/04/23 07:45 09/04/23 07:45 09/04/23 07:45 09/03/23 15:39 Oxygen Flow Rate (L/min) 2 Oxygen Delivery Method Room Air Weight: 89 kg Body Mass Index (BMI) 26.6 Intake & Output: Intake and Output for Last 24 Hours 09/02/23 09/03/23 09/04/23 23:59 23:59 23:59 Intake Total 2565.33 / 2565.33 310 / 310 Output Total 950 / 950 Balance 1615.33 / 1615.33 310 / 310 Lab / Micro Data 09/04/23 05:10 09/04/23 05:10 Labs: Laboratory Results - last 24 hr 09/03/23 11:19: POC Glucose 129 H 09/04/23 05:10: WBC 11.6 H, RBC 3.29 L, Hgb 8.9 L, Hct 28.7 L, MCV 87.2, MCH 27.1, MCHC 31.0 L, RDW Std Deviation 44.0 H, RDW Coeff of Tad 13.9, Plt Count 240, MPV 9.5, Immature Gran % (Auto) 0.600, Neut % (Auto) 73.1 H, Lymph % (Auto) 13.5 L, Spink % (Auto) 12.5 H, Eos % (Auto) 0.0, Baso % (Auto) 0.3, Absolute Neuts (auto) 8.5 H, Absolute Lymphs (auto) 1.56, Nucleated RBC % 0, Sodium 138, Potassium 3.9, Chloride 105, Carbon Dioxide 24.0, Anion Gap 9, BUN 21 H, Creatinine 1.24, Estim Creat Clear Calc 56.50, Est GFR (MDRD) Af Amer 73, Est GFR (MDRD) Non-Af 60, BUN/Creatinine Ratio 16.9, Glucose 143 H, Calcium 8.4 L Radiography Diagnostic Testing: Radiology Impression Shoulder X-Ray 09/03/23 09:35 IMPRESSION: undefined Physical Exam Const alert, oriented x3, no apparent distress and average body habitus Constitutional Narrative: Elderly male, sitting up comfortably in bed, conversing normally, in no acute distress. General Appearance: cooperative and comfortable HEENT normocephalic, head/scalp atraumatic, hearing grossly normal bilaterally, nasal mucous membranes and turbinates normal and moist oral mucous membranes Eyes PERRL, EOMs intact bilaterally and conjunctivae normal Neck full ROM Chest inspection of chest normal Resp normal respiratory effort, normal air movement, no use of accessory muscles and clear to auscultation bilaterally Cardio regular rate, regular rhythm, no murmurs and peripheral pulses 2+ throughout GI normal to inspection, nondistended, normoactive bowel sounds, soft to palpation, non-tender and non-distended Back/Spine normal ROM Extremity Extremity Narrative: Right shoulder stable in sling. No gross abnormalities on visual exam. Skin no rashes or lesions noted Neuro no focal motor deficits Speech: speech normal Psych mental status grossly normal Assessment & Plan Assessment/Plan (1) Primary osteoarthritis, right shoulder: PLAN: Plan Patient is a 73-year-old male who presented to [facility] on 09/03/2023 for planned right total shoulder arthroplasty. Medicine consulted for postop medical management. 1. Right shoulder primary osteoarthritis ? Orthopedics primary. S/p right reverse total shoulder arthroplasty on 09/02, no intraop complications. PT/OT/case management following. Presented from [facility], will return there on discharge but will need new pre-CERT prior to discharge. Pain control with scheduled Tylenol and oxycodone as needed. DVT prophylaxis with full dose Eliquis as noted below. Further management per orthopedics. 2. Chronic pulmonary embolism ? Admitted in March 2023 for PE. Follows in pulmonary clinic, was advised to continue Eliquis for 3 months. Will continue Eliquis 5 mg twice daily for now as he is high risk for DVT/PE postoperatively. 3. COPD not on home oxygen ? Stable on room air, not in acute exacerbation. Continue home inhalers. 4. History of alcohol abuse ? Quit in 2014. Encouraged continued cessation. 5. CAD s/p stenting, hypertension, hyperlipidemia ? Stable. Continue home Plavix, losartan, atorvastatin and Lasix. Chronic medical conditions: ? BPH with obstructive symptoms: Continue home Flomax. ? Restless leg syndrome: Continue home Requip. ? Chronic IBS with diarrhea prominent: No acute issues. Continue home mesalamine and dicyclomine. ? Mild cognitive impairment: Stable. Continue home donepezil. ? Schizophrenia: Stable. Continue home desvenlafaxine, lamotrigine, olanzapine and trazodone. ? Chronic pain syndrome: Treating with scheduled Tylenol and as needed oxycodone as noted above. ? Allergies: Continue home fexofenadine as needed. ? Former tobacco abuse: Encouraged continued cessation. Total clinical time spent by myself addressing the patient's medical issues, reviewing all the data, and collaborating with patient's care team: 35 minutes. Charges/Coding Visit Charges Inpatient E&M: 09477 Subs Hosp L2
[2023-09-04] MEDS: Baclofen 10 MG Tablet PO (13:49)
[2023-09-04] MEDS: Lactated Ringers 1,000 ML 250 ML IV ×2 (14:54→19:24)
--- NOTE | 2023-09-04 16:06 | PCM.PN.ORT ---
Subjective Subjective Patient doing well. POD 1 right RTSA. no concerns. mild pain to the right shoulder. Objective Data Objective Data Vital Signs: Vital Signs Temp Pulse Resp BP Pulse Ox O2 Del Method O2 Flow Rate 97.3 F L 106 H 15 82/48 L 92 Room Air 2 09/04/23 15:13 09/04/23 15:13 09/04/23 15:13 09/04/23 15:13 09/04/23 15:13 09/04/23 15:13 09/03/23 15:39 Oxygen Flow Rate (L/min) 2 Oxygen Delivery Method Room Air Weight: 196 lb 3.382 oz Body Mass Index (BMI) 26.6 Intake & Output: Intake and Output for Last 24 Hours 09/02/23 09/03/23 09/04/23 23:59 23:59 23:59 Intake Total 2565.33 / 2565.33 365 / 365 Output Total 950 / 950 0 / 0 Balance 1615.33 / 1615.33 365 / 365 Lab / Micro Data 09/04/23 05:10 09/04/23 05:10 Labs: Laboratory Results - last 24 hr 09/04/23 05:10: WBC 11.6 H, RBC 3.29 L, Hgb 8.9 L, Hct 28.7 L, MCV 87.2, MCH 27.1, MCHC 31.0 L, RDW Std Deviation 44.0 H, RDW Coeff of Tad 13.9, Plt Count 240, MPV 9.5, Immature Gran % (Auto) 0.600, Neut % (Auto) 73.1 H, Lymph % (Auto) 13.5 L, Geary % (Auto) 12.5 H, Eos % (Auto) 0.0, Baso % (Auto) 0.3, Absolute Neuts (auto) 8.5 H, Absolute Lymphs (auto) 1.56, Nucleated RBC % 0, Sodium 138, Potassium 3.9, Chloride 105, Carbon Dioxide 24.0, Anion Gap 9, BUN 21 H, Creatinine 1.24, Estim Creat Clear Calc 56.50, Est GFR (MDRD) Af Amer 73, Est GFR (MDRD) Non-Af 60, BUN/Creatinine Ratio 16.9, Glucose 143 H, Calcium 8.4 L Radiography Diagnostic Testing: Radiology Impression Shoulder X-Ray 09/03/23 09:35 IMPRESSION: undefined xr right shoulder shows well placed rtsa Physical Exam Const alert and oriented x3 Constitutional Narrative: right shoulder drsg dry, mild strikethrough at distal aspect, nvi ax, mru and ain/pin motor and sens both right post op in recovery and on the sinclair today. in the sling. slight swelling about the right shoulder. a bit tender to palpate. Assessment & Plan Assessment/Plan (1) Primary osteoarthritis, right shoulder: PLAN: 73 yr M post op day 1 right RSTA. Progressing as expected. Pending PT OT and SW for discharge planning. Shoulder precautions. Pendulums only 4x/day.
[2023-09-04] MEDS: OLANZapine 10 MG Tablet PO (22:06)
[2023-09-04] MEDS: traZODone 50 MG Tablet 150 MG PO (22:07)
[2023-09-04] MEDS: Atorvastatin Calcium 40 MG Tablet PO (22:07)
[2023-09-04] MEDS: Tamsulosin HCl 0.4 MG Capsule PO (22:07)
[2023-09-04] MEDS: Pramipexole Di-HCl 0.25 MG Tablet PO (22:08)
[2023-09-05] VITALS (7 sets, daily range): BP systolic 110–114; BP diastolic 57–72; PULSE 85–100; RESP 16–20; TEMP 36.4–36.8; O2SAT 93–96
[2023-09-05] MEDS: oxyCODONE 5 MG Tablet PO ×2 (03:52→10:24)
[2023-09-05] MEDS: Dicyclomine 10 MG Capsule 20 MG PO ×2 (05:49→14:06)
[2023-09-05] MEDS: Acetaminophen 500 MG Tablet 1000 MG PO ×2 (05:49→14:06)
[2023-09-05] MEDS: Ipratropium/Albuterol Sulfate 3 ML AMPUL.NEB INHALATION ×3 (06:52→19:03)
[2023-09-05] MEDS: Budesonide Respules 0.5 MG/2 ML AMPUL.NEB. INHALATION ×2 (06:53→19:04)
[2023-09-05 07:38] LABS: Absolute Lymphocyte Count 1.34 X10^3/uL (0.83-4.51); Absolute Neutrophil Count 5.7 X10^3/uL (2.0-7.7); Basophil# 0.03 X10^3/uL; Basophil% 0.4 % (0-1); Eosinophil# 0.07 X10^3/uL; Eosinophils% 0.8 % (0-5); Hematocrit 26.3 % (40-54); Hemoglobin 8.2 g/dL (13.0-16.5); Lymphocyte # 1.34 X10^3/ul (0.83-4.51); Lymphocyte % 16.1 % (19-41); Mean Corp Hgb Conc 31.2 g/dL (32-36); Mean Corpuscular Hgb 27.4 pg (27.0-32.0); Mean Platelet Vol. 9.7 fl (6.2-12.0); Monocyte# 1.09 X10^3/uL; Monocyte% 13.1 % (0-10); NRBC Flagged by Analyzer 0 % (0-5); Neutrophil # 5.74 X10^3/uL (2.7-7.7); Neutrophil % 69.1 % (47-70); Platelet Count 224 K/mm3 (150-450); RBC Distribution Width CV 14.2 % (11.6-14.6); RBC Distribution Width SD 45.2 fl (35.1-43.9); Red Blood Count 2.99 M/mm3 (4.6-6.2); White Blood Count 8.3 K/mm3 (4.4-11.0)
[2023-09-05 07:58] LABS: Anion Gap 5 (5-15); BUN 19 mg/dL (7-18); BUN/Creat Ratio 16.7 RATIO (10-20); Calcium,Total 7.8 mg/dL (8.5-10.1); Chloride 106 mmol/L (98-107); Creatinine, Serum 1.14 mg/dL (0.70-1.30); EST Glomerular Filtration Rate 67 mL/min (>60); Est Glom Filt Rate - Afr Amer 80 mL/min (>60); Estimated Creatinine Clearance 61.45 ml/min; Glucose 113 mg/dL (74-106); Potassium 3.6 mmol/L (3.5-5.1); Sodium Level 138 mmol/L (136-145)
[2023-09-05] MEDS: Losartan Potassium 50 MG Tablet PO (10:17)
[2023-09-05] MEDS: Donepezil HCl 10 MG Tablet PO (10:17)
[2023-09-05] MEDS: Ferrous Sulfate 325 MG Tablet PO (10:17)
[2023-09-05] MEDS: Potassium Chloride Oral Tablet 20 MEQ PO (10:17)
[2023-09-05] MEDS: Furosemide 20 MG Tablet PO (10:18)
[2023-09-05] MEDS: lamoTRIgine 100 MG Tablet 200 MG PO (10:18)
[2023-09-05] MEDS: Mesalamine 1.2 GM Tablet PO (10:18)
[2023-09-05] MEDS: APIXABAN 5 MG TABLET PO (10:18)
[2023-09-05] MEDS: Clopidogrel Bisulfate 75 MG Tablet PO (10:19)
[2023-09-05] MEDS: Venlafaxine XR 75 MG Capsule PO (10:26)
--- NOTE | 2023-09-05 11:02 | PCM.PN.HOSP ---
Reason for Visit Reason for Visit: Diagnoses Primary osteoarthritis, right shoulder (09/03/23) Subjective Subjective No acute events overnight. Saw patient at bedside this morning. Sitting up comfortably in bedside chair, conversing normally, in no acute distress. Reports mild right shoulder and arm pain this morning, similar to yesterday. Pain medication has been moderately helpful for this. No other new concerns today. Objective Data Objective Data Vital Signs: Vital Signs Temp Pulse Resp BP Pulse Ox O2 Del Method O2 Flow Rate 97.9 F 96 18 113/68 96 Room Air 2 09/05/23 10:08 09/05/23 10:08 09/05/23 10:08 09/05/23 10:08 09/05/23 10:08 09/05/23 10:08 09/03/23 15:39 Oxygen Flow Rate (L/min) 2 Oxygen Delivery Method Room Air Weight: 89 kg Body Mass Index (BMI) 26.6 Intake & Output: Intake and Output for Last 24 Hours 09/03/23 09/04/23 09/05/23 23:59 23:59 23:59 Intake Total 2565.33 / 2565.33 2365 / 2465 300 / 300 Output Total 950 / 950 0 / 500 1575 / 1575 Balance 1615.33 / 1615.33 2365 / 1965 -1275 / -1275 Lab / Micro Data 09/05/23 06:15 09/05/23 06:15 Labs: Laboratory Results - last 24 hr 09/05/23 06:15: WBC 8.3, RBC 2.99 L, Hgb 8.2 L, Hct 26.3 L, MCV 88.0, MCH 27.4, MCHC 31.2 L, RDW Std Deviation 45.2 H, RDW Coeff of Tad 14.2, Plt Count 224, MPV 9.7, Immature Gran % (Auto) 0.500, Neut % (Auto) 69.1, Lymph % (Auto) 16.1 L, [place]o % (Auto) 13.1 H, Eos % (Auto) 0.8, Baso % (Auto) 0.4, Absolute Neuts (auto) 5.7, Absolute Lymphs (auto) 1.34, Nucleated RBC % 0, Sodium 138, Potassium 3.6, Chloride 106, Carbon Dioxide 27.0, Anion Gap 5, BUN 19 H, Creatinine 1.14, Estim Creat Clear Calc 61.45, Est GFR (MDRD) Af Amer 80, Est GFR (MDRD) Non-Af 67, BUN/Creatinine Ratio 16.7, Glucose 113 H, Calcium 7.8 L Physical Exam Const alert, oriented x3, no apparent distress and average body habitus Constitutional Narrative: Elderly male, sitting up comfortably in bed, conversing normally, in no acute distress. General Appearance: cooperative and comfortable HEENT normocephalic, head/scalp atraumatic, hearing grossly normal bilaterally, nasal mucous membranes and turbinates normal and moist oral mucous membranes Eyes PERRL, EOMs intact bilaterally and conjunctivae normal Neck full ROM Chest inspection of chest normal Resp normal respiratory effort, normal air movement, no use of accessory muscles and clear to auscultation bilaterally Cardio regular rate, regular rhythm, no murmurs and peripheral pulses 2+ throughout GI normal to inspection, nondistended, normoactive bowel sounds, soft to palpation, non-tender and non-distended Back/Spine normal ROM Extremity Extremity Narrative: Right shoulder stable in sling. No gross abnormalities on visual exam. Stable. Skin no rashes or lesions noted Neuro no focal motor deficits Speech: speech normal Psych mental status grossly normal Assessment & Plan Assessment/Plan (1) Primary osteoarthritis, right shoulder: PLAN: Plan Patient is a 73-year-old male who presented to [facility] on 09/03/2023 for planned right total shoulder arthroplasty. Medicine consulted for postop medical management. 1. Right shoulder primary osteoarthritis ? Orthopedics primary. S/p right reverse total shoulder arthroplasty on 09/02, no intraop complications. PT/OT/case management following. Presented from [facility], will return there on discharge but will need new pre-CERT prior to discharge. Pain control with scheduled Tylenol and oxycodone as needed. Senna and MiraLAX twice as needed ordered for bowel regimen; not scheduling them given history of chronic IBS with diarrhea prominent as noted below. DVT prophylaxis with full dose Eliquis as noted below. Further management per orthopedics. 2. Chronic pulmonary embolism ? Admitted in March 2023 for PE. Follows in pulmonary clinic, was advised to continue Eliquis for 3 months. Will continue Eliquis 5 mg twice daily for now as he is high risk for DVT/PE postoperatively. 3. COPD not on home oxygen ? Stable on room air, not in acute exacerbation. Continue home inhalers. 4. History of alcohol abuse ? Quit in 2015. Encouraged continued cessation. 5. CAD s/p stenting, hypertension, hyperlipidemia ? Stable. Continue home Plavix, losartan, atorvastatin and Lasix. Chronic medical conditions: ? BPH with obstructive symptoms: Continue home Flomax. ? Restless leg syndrome: Continue home Requip. ? Chronic IBS with diarrhea prominent: No acute issues. Continue home mesalamine and dicyclomine. ? Mild cognitive impairment: Stable. Continue home donepezil. ? Schizophrenia: Stable. Continue home desvenlafaxine, lamotrigine, olanzapine and trazodone. ? Chronic pain syndrome: Treating with scheduled Tylenol and as needed oxycodone as noted above. ? Allergies: Continue home fexofenadine as needed. ? Former tobacco abuse: Encouraged continued cessation. Total clinical time spent by myself addressing the patient's medical issues, reviewing all the data, and collaborating with patient's care team: 25 minutes. Charges/Coding Visit Charges Inpatient E&M: 17701 [facility] Hosp L1
[2023-09-05] MEDS: Albuterol 2.5 MG/3 ML VIAL.NEB. INHALATION (11:07)
--- NOTE | 2023-09-05 12:07 | CASEMGMT ---
Addendum entered by Josy Cooney 09/05/23 15:02: SW received signed med list from Dr. Lowe. A COVID test has been requested prior to discharge. Addendum entered by Josy Cooney 09/05/23 13:49: PEYTON spoke with Ortho, Dr. Seth Vazquez via phone to confirm medical clearance from Ortho. Dr. Vazquez to complete discharge orders. Addendum entered by Josy Cooney 09/05/23 13:41: Patient has received insurance authorization approval for placement. SW provided updates to daughter, Bethany Falk and Physician, Dr. Carmelo Lowe regarding insurance approval. Patient is medically cleared by Dr. Lowe. SW to follow up with surgery for clearance. Original Note: Social Work SW met with patient at bedside to discuss discharge plans. Patient informed PEYTON that he was previously at [facility]. Patient would like to return to [facility]. Referral was submitted to [facility] on 09/04/2023. Patient is awaiting insurance authorization approval for placement. PEYTON will continue to follow for placement. OUMOU Neri
--- NOTE | 2023-09-05 13:16 | CASEMGMT ---
Discharge Planning W has obtain auth to admit. SW updated. Damaris Cassidy DC Planning Asst.
--- NOTE | 2023-09-05 13:49 | PCM.DC.SUM ---
Providers Date of Admission: 09/03/23 Primary Care Physician: GAURAV Walden Consultations 09/03/23 15:54 Consult: Hospitalist Routine Consulting Provider: Braden Saxena Reason for Consult: MEDICAL MANAGEMENT EMERGENT Consult: No MD Notified: Yes Date Notified: 09/03/23 Time Notified: 15:55 Method of Notification: Text Reason For Visit: Right Reverse Total Shoulder Replacement Diagnosis Discharge Diagnosis (1) Primary osteoarthritis, right shoulder: Status: Acute Code(s): M19.011 - Primary osteoarthritis, right shoulder Plan: 73 yr M post op day 1 right RSTA. Progressing as expected. Pending PT OT and SW for discharge planning. Shoulder precautions. Pendulums only 4x/day. Medications at Discharge Home Medications ropinirole 0.5 mg tablet 0.5 mg PO QHS RESTLESS LEGS 04/23/16 tamsulosin 0.4 mg capsule 0.4 mg PO QHS PROSTATE 01/30/17 baclofen 10 mg tablet 10 mg PO TID PRN PRN PAIN 11/09/20 icosapent ethyl 1 gram capsule (Vascepa) 2 g PO BID HEART 11/09/20 donepezil 10 mg tablet 10 mg PO DAILY ALZHEIMERS 10/23/21 lamotrigine 200 mg tablet (Lamictal) 200 mg PO DAILY MOOD 10/23/21 olanzapine 10 mg tablet (Zyprexa) 10 mg PO QHS MOOD 10/23/21 acetaminophen 500 mg tablet 1,000 mg PO BID PRN PRN Pain 05/28/22 clopidogrel 75 mg tablet 75 mg PO DAILY BLOOD THINNER #30 tabs 01/03/23 budesonide 160 mcg-glycopyr 9 mcg-formot 4.8 mcg/actuation HFA inhaler (Breztri Aerosphere) 2 inh inhalation BID COPD #10.7 grams 01/28/23 dicyclomine 20 mg tablet 20 mg PO TID IRRITABLE BOWELS 04/15/23 fexofenadine 180 mg tablet 180 mg PO DAILY PRN PRN ALLERGIES 04/15/23 ondansetron 4 mg disintegrating tablet 4 mg PO TID PRN NAUSEA 04/15/23 potassium chloride 20 mEq tablet,extended release(part/cryst) 20 meq PO DAILY SUPPLEMENT 04/15/23 trazodone 150 mg tablet 150 mg PO QHS SLEEP 04/15/23 nitroglycerin 0.4 mg sublingual tablet (Nitrostat) 0.4 mg sublingual Q5-15M PRN chest pain #25 tabs 06/16/23 atorvastatin 40 mg tablet 40 mg PO QHS CHOLESTEROL #90 tabs 06/24/23 albuterol sulfate 2.5 mg/3 mL (0.083 %) solution for nebulization 2.5 mg inhalation Q8H PRN shortness of breath or wheezing 07/10/23 albuterol sulfate 90 mcg/actuation aerosol inhaler 2 puff inhalation Q6H PRN Shortness Of Breath 07/10/23 apixaban 5 mg tablet (Eliquis) 5 mg PO BID 07/10/23 desvenlafaxine succinate 100 mg tablet,extended release 24 hr 100 mg PO DAILY 07/10/23 mesalamine 0.375 gram capsule,extended release 24 hr 1.5 g PO BID 07/10/23 aluminum-mag hydroxide-simethicone 400 mg-400 mg-40 mg/5 mL oral susp (Mylanta Maximum Strength) 15 ml PO Q4H PRN PRN indigestion 09/02/23 ferrous sulfate 325 mg (65 mg iron) tablet 325 mg PO DAILY 09/02/23 furosemide 20 mg tablet (Lasix) 20 mg PO DAILY 09/02/23 hydrocodone-acetaminophen 5-325mg 5mg-325mg 1 tab PO BID 09/02/23 losartan 25 mg tablet 50 mg PO DAILY BLOOD PRESSURE 09/02/23 Hospital Course Summary of Care Provided Hospital Course: benign. dc to senior care pod 2 Weight / BMI Weight Weight: 196 lb 3.382 oz Body Mass Index (BMI) 26.6 ABG / Lab / Microbiology Data 09/05/23 06:15 09/05/23 06:15 Laboratory: Laboratory Results - last 24 hr 09/05/23 06:15: WBC 8.3, RBC 2.99 L, Hgb 8.2 L, Hct 26.3 L, MCV 88.0, MCH 27.4, MCHC 31.2 L, RDW Std Deviation 45.2 H, RDW Coeff of Tad 14.2, Plt Count 224, MPV 9.7, Immature Gran % (Auto) 0.500, Neut % (Auto) 69.1, Lymph % (Auto) 16.1 L, Dewey % (Auto) 13.1 H, Eos % (Auto) 0.8, Baso % (Auto) 0.4, Absolute Neuts (auto) 5.7, Absolute Lymphs (auto) 1.34, Nucleated RBC % 0, Sodium 138, Potassium 3.6, Chloride 106, Carbon Dioxide 27.0, Anion Gap 5, BUN 19 H, Creatinine 1.14, Estim Creat Clear Calc 61.45, Est GFR (MDRD) Af Amer 80, Est GFR (MDRD) Non-Af 67, BUN/Creatinine Ratio 16.7, Glucose 113 H, Calcium 7.8 L D/C Instructions Discharge Diet: No restrictions Discharge Activity: May Not Drive Lifting Restrictions: no lifting, pendulums 4x/day Call your doctor if your incision/area has: Continuous Slow Oozing, Sudden Increased Bleeding, Increased Pain/ Swelling, Increased Redness, Foul Smelling Discharge and Swelling at the incision site Suture Line Care: Avoid Pulling/Pushing Change Dressing in: 2 days Cleanse incision/area with: Do not get Incision Wet Please Follow Up With: Seth Vazquez MD When: 2 weeks Meaningful Use Info Meaningful Use Meaningful Use Diagnoses (Choose all that apply): None applicable Ischemic Stroke Statin Dosing Therapy Reference: STATIN DOSE THERAPY REFERENCE: * Patients > 75 years receive moderate or high dose statin therapy. * Patients 75 years or YOUNGER should receive HIGH intensity statin dose unless contraindicated. You will be required to document reason for non-treatment if statin daily dose does not meet guidelines. HIGH DOSE STATIN THERAPY DAILY Atorvastatin > than or = to 40 mg Rosuvastatin > than or = to 20 mg Amlodipine + Atorvastatin > than or = to 2.5/40 mg Ezetimibe + Simvastatin 10/80 mg Simvastatin 80mg Discharge Plan Admission Admit Date/Time: 09/03/23 10:57 Primary Reason for Your Visit: right RTSA Attending Provider: Seth Vazquez Primary Care Provider: Eliel Mosley [facility] Consulting Providers: Braden Saxena; Carmelo Lowe Instructions Additional Instructions / Restrictions: FU in office 2 weeks, change dressing every 1-2 days, keep incision dry, pendulums 4x/day Discharge Orders/Prescriptions Prescriptions: No Action icosapent ethyl [Vascepa] 1 gram capsule 2 g PO BID baclofen 10 mg tablet 10 mg PO TID PRN PRN (Reason: PAIN) olanzapine [Zyprexa] 10 mg tablet 10 mg PO QHS donepezil 10 mg tablet 10 mg PO DAILY lamotrigine [Lamictal] 200 mg tablet 200 mg PO DAILY Gabrielletri Aerosphere 160-9-4.8 mcg/actuation HFA aerosol inhaler 2 inh inhalation BID Qty: 10.7 11RF ropinirole 0.5 MG tablet 0.5 mg PO QHS tamsulosin 0.4 MG capsule,extended release 24hr 0.4 mg PO QHS acetaminophen 500 mg tablet 1,000 mg PO BID PRN PRN (Reason: Pain) fexofenadine 180 mg tablet 180 mg PO DAILY PRN PRN (Reason: ALLERGIES ) dicyclomine 20 mg tablet 20 mg PO TID potassium chloride 20 mEq tablet,ER particles/crystals 20 meq PO DAILY trazodone 150 mg tablet 150 mg PO QHS ondansetron 4 mg tablet,disintegrating 4 mg PO TID PRN (Reason: NAUSEA ) Eliquis 5 mg tablet 5 mg PO BID desvenlafaxine succinate 100 mg tablet extended release 24 hr 100 mg PO DAILY mesalamine 0.375 gram capsule,extended release 24hr 1.5 g PO BID Patient Comments: PT UNAWARE OF DOSAGE OR FREQ albuterol sulfate 2.5 mg /3 mL (0.083 %) solution for nebulization 2.5 mg INHALATION Q8H PRN (Reason: shortness of breath or wheezing) albuterol sulfate 90 mcg/actuation HFA aerosol inhaler 2 puff INHALATION Q6H PRN (Reason: Shortness Of Breath) hydrocodone-acetaminophen 5-325 mg tablet 1 tab PO BID alum-mag hydroxide-simeth [Mylanta Maximum Strength] 400-400-40 mg/5 mL suspension 15 ml PO Q4H PRN PRN (Reason: indigestion) ferrous sulfate 325 mg (65 mg iron) tablet 325 mg PO DAILY furosemide [Lasix] 20 mg tablet 20 mg PO DAILY losartan 25 mg tablet 50 mg PO DAILY clopidogrel 75 mg tablet 75 mg PO DAILY Qty: 30 11RF nitroglycerin [Nitrostat] 0.4 mg tablet, sublingual 0.4 mg sublingual Q5-15M PRN (Reason: chest pain) Qty: 25 3RF Rx Instructions: do not exceed 3 doses per episode atorvastatin 40 mg tablet 40 mg PO QHS Qty: 90 3RF Referrals / Follow Up: Seth Vazquez MD [Med Staff - Active Staff] - Eliel Mosley Angelito, [employer] [Primary Care Provider] - Disposition Disposition (needs filled in before D/C Order can be placed): [facility]
--- NOTE | 2023-09-05 14:47 | PHA.DC.MR.R ---
Pharmacy [facility] Med Reconciliation Pharmacy Service has performed discharge medication reconciliation for this patient. The patient's discharge medication list was reviewed for discrepancies and discrepancies were resolved. Medications at Discharge Home Medications ropinirole 0.5 mg tablet 0.5 mg PO QHS RESTLESS LEGS 04/23/16 tamsulosin 0.4 mg capsule 0.4 mg PO QHS PROSTATE 01/30/17 baclofen 10 mg tablet 10 mg PO TID PRN PRN PAIN 11/09/20 icosapent ethyl 1 gram capsule (Vascepa) 2 g PO BID HEART 11/09/20 donepezil 10 mg tablet 10 mg PO DAILY ALZHEIMERS 10/23/21 lamotrigine 200 mg tablet (Lamictal) 200 mg PO DAILY MOOD 10/23/21 olanzapine 10 mg tablet (Zyprexa) 10 mg PO QHS MOOD 10/23/21 clopidogrel 75 mg tablet 75 mg PO DAILY BLOOD THINNER #30 tabs 01/03/23 budesonide 160 mcg-glycopyr 9 mcg-formot 4.8 mcg/actuation HFA inhaler ([employer]) 2 inh inhalation BID COPD #10.7 grams 01/28/23 dicyclomine 20 mg tablet 20 mg PO TID IRRITABLE BOWELS 04/15/23 fexofenadine 180 mg tablet 180 mg PO DAILY PRN PRN ALLERGIES 04/15/23 ondansetron 4 mg disintegrating tablet 4 mg PO TID PRN NAUSEA 04/15/23 potassium chloride 20 mEq tablet,extended release(part/cryst) 20 meq PO DAILY SUPPLEMENT 04/15/23 trazodone 150 mg tablet 150 mg PO QHS SLEEP 04/15/23 nitroglycerin 0.4 mg sublingual tablet (Nitrostat) 0.4 mg sublingual Q5-15M PRN chest pain #25 tabs 06/16/23 atorvastatin 40 mg tablet 40 mg PO QHS CHOLESTEROL #90 tabs 06/24/23 albuterol sulfate 2.5 mg/3 mL (0.083 %) solution for nebulization 2.5 mg inhalation Q8H PRN shortness of breath or wheezing 07/10/23 albuterol sulfate 90 mcg/actuation aerosol inhaler 2 puff inhalation Q6H PRN Shortness Of Breath 07/10/23 apixaban 5 mg tablet (Eliquis) 5 mg PO BID 07/10/23 desvenlafaxine succinate 100 mg tablet,extended release 24 hr 100 mg PO DAILY 07/10/23 mesalamine 0.375 gram capsule,extended release 24 hr 1.5 g PO BID 07/10/23 aluminum-mag hydroxide-simethicone 400 mg-400 mg-40 mg/5 mL oral susp (Mylanta Maximum Strength) 15 ml PO Q4H PRN PRN indigestion 09/02/23 ferrous sulfate 325 mg (65 mg iron) tablet 325 mg PO DAILY 09/02/23 furosemide 20 mg tablet (Lasix) 20 mg PO DAILY 09/02/23 losartan 25 mg tablet 50 mg PO DAILY BLOOD PRESSURE 09/02/23 acetaminophen 500 mg tablet 1,000 mg (2 x 500 mg) PO Q8 #0 tabs 09/05/23 oxycodone 10 mg tablet 10 mg PO Q6H PRN PRN Pain Score 4-10 7 days #28 tabs 09/05/23 sennosides 8.6 mg tablet (senna) 8.6 mg PO BID PRN Constipation #0 tabs 09/05/23
--- NOTE | 2023-09-05 15:46 | PCM.TXEXTCAR ---
Diet Diet Order/Speech Therapy: 09/03/23 15:54 Diet: Regular - No Added Salt Is pt able to select menu?: Yes Routine Orders/Code Status Code Status: Full Code Wound(s) RT SHOULDER: Wound Type: Surgical Incision Therapies Weight Bearing: Full weight bearing Physical Therapy: Eval and Treat Occupational Therapy: Eval and Treat Problem/Diagnosis (1) Primary osteoarthritis, right shoulder: Status: Acute Code(s): M19.011 - Primary osteoarthritis, right shoulder Plan Patient is a 73-year-old male who presented to [facility] on 09/03/2023 for planned right total shoulder arthroplasty. S/p right reverse total shoulder arthroplasty on 09/02. Patient discharged back to SNF in stable condition on 09/04. 1. Right shoulder primary osteoarthritis ? Orthopedics primary. S/p right reverse total shoulder arthroplasty on 09/02, no intraop complications. PT/OT/case management following. Presented from [facility], will return there on discharge but will need new pre-CERT prior to discharge. Pain control with scheduled Tylenol and oxycodone as needed. Senna and MiraLAX twice as needed ordered for bowel regimen; not scheduling them given history of chronic IBS with diarrhea prominent as noted below. DVT prophylaxis with full dose Eliquis as noted below. Per orthopedics, continue shoulder precautions and pendulums only 4 times per day. 2. Chronic pulmonary embolism ? Admitted in March 2023 for PE. Follows in pulmonary clinic, was advised to continue Eliquis for 3 months. Will continue Eliquis 5 mg twice daily for now as he is high risk for DVT/PE postoperatively. 3. COPD not on home oxygen ? Stable on room air, not in acute exacerbation. Continue home inhalers. 4. History of alcohol abuse ? Quit in 2014. Encouraged continued cessation. 5. CAD s/p stenting, hypertension, hyperlipidemia ? Stable. Continue home Plavix, losartan, atorvastatin and Lasix. Chronic medical conditions: ? BPH with obstructive symptoms: Continue home Flomax. ? Restless leg syndrome: Continue home Requip. ? Chronic IBS with diarrhea prominent: No acute issues. Continue home mesalamine and dicyclomine. ? Mild cognitive impairment: Stable. Continue home donepezil. ? Schizophrenia: Stable. Continue home desvenlafaxine, lamotrigine, olanzapine and trazodone. ? Chronic pain syndrome: Treating with scheduled Tylenol and as needed oxycodone as noted above. ? Allergies: Continue home fexofenadine as needed. ? Former tobacco abuse: Encouraged continued cessation. Total clinical time spent by myself addressing the patient's medical issues, reviewing all the data, and collaborating with patient's care team: 35 minutes. Allergies/Procedures Done in Hospital Allergies Quinolones Allergy (Unknown, Verified 09/03/23 06:46) unknown aspirin Allergy (Verified 09/03/23 06:46) Itching, Hives levofloxacin (From Levaquin) Allergy (Verified 09/03/23 06:46) Hives, Itching Penicillins Allergy (Verified 09/03/23 06:46) Hives, Itching Procedures: - (Right total shoulder replacement) Type of Care/Length of Stay Estimated LOS: Convalescent Care Less Than 30 days Type of Care Needed: Skilled Rehab Potential: Fair Prognosis: Fair Additional Orders/Day of Discharge H&P will serve as current which was dated: 09/03/23 Day of Discharge: 09/05/23 Follow Up Care Please Follow Up With: Seth Vazquez MD Discharge Plan Admission Admit Date/Time: 09/03/23 10:57 Primary Reason for Your Visit: right RTSA Attending Provider: Seth Vazquez Primary Care Provider: Eliel Mosley Consulting Providers: Braden Saxena; Carmelo Lowe Instructions Additional Instructions / Restrictions: FU in office 2 weeks, change dressing every 1-2 days, keep incision dry, pendulums 4x/day Discharge Orders/Prescriptions Prescriptions: New acetaminophen 500 mg Tablet 1,000 mg PO Q8 Qty: 0 0RF oxycodone 10 mg tablet 10 mg PO Q6H PRN PRN (Reason: Pain Score 4-10) 7 Days Qty: 28 0RF sennosides [senna] 8.6 mg Tablet 8.6 mg PO BID PRN (Reason: Constipation) Qty: 0 0RF Continued icosapent ethyl [Vascepa] 1 gram capsule 2 g PO BID baclofen 10 mg tablet 10 mg PO TID PRN PRN (Reason: PAIN) olanzapine [Zyprexa] 10 mg tablet 10 mg PO QHS donepezil 10 mg tablet 10 mg PO DAILY lamotrigine [Lamictal] 200 mg tablet 200 mg PO DAILY Breztri Aerosphere 160-9-4.8 mcg/actuation HFA aerosol inhaler 2 inh inhalation BID Qty: 10.7 11RF ropinirole 0.5 MG tablet 0.5 mg PO QHS tamsulosin 0.4 MG capsule,extended release 24hr 0.4 mg PO QHS fexofenadine 180 mg tablet 180 mg PO DAILY PRN PRN (Reason: ALLERGIES ) dicyclomine 20 mg tablet 20 mg PO TID potassium chloride 20 mEq tablet,ER particles/crystals 20 meq PO DAILY trazodone 150 mg tablet 150 mg PO QHS ondansetron 4 mg tablet,disintegrating 4 mg PO TID PRN (Reason: NAUSEA ) Eliquis 5 mg tablet 5 mg PO BID desvenlafaxine succinate 100 mg tablet extended release 24 hr 100 mg PO DAILY mesalamine 0.375 gram capsule,extended release 24hr 1.5 g PO BID Patient Comments: PT UNAWARE OF DOSAGE OR FREQ albuterol sulfate 2.5 mg /3 mL (0.083 %) solution for nebulization 2.5 mg INHALATION Q8H PRN (Reason: shortness of breath or wheezing) albuterol sulfate 90 mcg/actuation HFA aerosol inhaler 2 puff INHALATION Q6H PRN (Reason: Shortness Of Breath) alum-mag hydroxide-simeth [Mylanta Maximum Strength] 400-400-40 mg/5 mL suspension 15 ml PO Q4H PRN PRN (Reason: indigestion) ferrous sulfate 325 mg (65 mg iron) tablet 325 mg PO DAILY furosemide [Lasix] 20 mg tablet 20 mg PO DAILY losartan 25 mg tablet 50 mg PO DAILY clopidogrel 75 mg tablet 75 mg PO DAILY Qty: 30 11RF nitroglycerin [Nitrostat] 0.4 mg tablet, sublingual 0.4 mg sublingual Q5-15M PRN (Reason: chest pain) Qty: 25 3RF Rx Instructions: do not exceed 3 doses per episode atorvastatin 40 mg tablet 40 mg PO QHS Qty: 90 3RF Discontinued acetaminophen 500 mg tablet 1,000 mg PO BID PRN PRN (Reason: Pain) hydrocodone-acetaminophen 5-325 mg tablet 1 tab PO BID Referrals / Follow Up: Seth Vazquez MD [Med Staff - Active Staff] - Eliel Mosley, RISK PROFESSIONAL-C [Primary Care Provider] - Disposition Disposition (needs filled in before D/C Order can be placed): [facility]
--- NOTE | 2023-09-05 16:03 | CASEMGMT ---
Discharge Planning Discharge orders, signed med list, covid results, and transport time sent to [facility] via [facility]. Physicians will transport patient by wheelchair at 6p. Nursing, SW, patient, and his daughter (Bethany) updated. Damaris Cassidy DC Planning Asst.
--- NOTE | 2023-09-05 17:55 | NURSING ---
Nurse to nurse report given to Yasmin at [facility]
== END 2023-09-05 19:47 | disposition skilled nursing facility (03) ==
LOC: SDC 11:27 → MS3 11:27
PROVIDERS: Internal Medicine; Admitting Provider Orthopaedic Surgery Sports Medicine; PCP Nurse Practitioner Family; Referring Provider Orthopaedic Surgery Sports Medicine; Visit Provider Orthopaedic Surgery Sports Medicine
PROC: (CPT 23472; principal; 2023-09-03 07:00)
DX: M19.011 Primary osteoarthritis, right shoulder (principal); M06.9 Rheumatoid arthritis, unspecified; F20.9 Schizophrenia, unspecified; I11.0 Hypertensive heart disease with heart failure; I50.9 Heart failure, unspecified; F31.9 Bipolar disorder, unspecified; J43.9 Emphysema, unspecified; I27.82 Chronic pulmonary embolism; E11.9 Type 2 diabetes mellitus without complications; Z87.891 Personal history of nicotine dependence; G25.81 Restless legs syndrome; Z79.01 Long term (current) use of anticoagulants; E78.00 Pure hypercholesterolemia, unspecified; I25.10 Atherosclerotic heart disease of native coronary artery without angina pectoris; Z79.02 Long term (current) use of antithrombotics/antiplatelets; Z79.899 Other long term (current) drug therapy; G47.33 Obstructive sleep apnea (adult) (pediatric); K21.9 Gastro-esophageal reflux disease without esophagitis; G89.29 Other chronic pain; N13.8 Other obstructive and reflux uropathy
CPT/HCPCS: 23472; 36415; 73030; 76000; 80048; 82962; 85025; 87426; 88305; 88311; 94640; 94668; 96361; 96365; 96366; 97110; 97116; 97162; 97166; 97530; 97535; 99221; C1713; C1776; J7120; G0378; J2405; J3475; J3490

== ENCOUNTER → 2023-10-02 | Outpatient (CLI) | payer MEDICARE, MEDICAID, SELFPAY ==
[2023-09-09 09:43] VITALS: BMI 21.8
[2023-10-02 13:51] LABS: Anion Gap 7 (5-15); BUN 10 mg/dL (7-18); BUN/Creat Ratio 8.8 RATIO (10-20); Calcium,Total 9.4 mg/dL (8.5-10.1); Chloride 106 mmol/L (98-107); Creatinine, Serum 1.13 mg/dL (0.70-1.30); EST Glomerular Filtration Rate 67 mL/min (>60); Est Glom Filt Rate - Afr Amer 81 mL/min (>60); Glucose 106 mg/dL (74-106); Potassium 3.8 mmol/L (3.5-5.1); Sodium Level 139 mmol/L (136-145); Thyroid Stim Hormone (TSH) 0.88 uIU/mL (0.358-3.74)
[2023-10-02 21:47] LABS: Absolute Lymphocyte Count 1.53 X10^3/uL (0.83-4.51); Basophil# 0.05 X10^3/uL; Basophil% 0.8 % (0-1); Eosinophil# 0.13 X10^3/uL; Eosinophils% 2.1 % (0-5); Hematocrit 30.4 % (40-54); Hemoglobin 9.1 g/dL (13.0-16.5); Lymphocyte # 1.53 X10^3/ul (0.83-4.51); Lymphocyte % 24.2 % (19-41); Mean Corp Hgb Conc 29.9 g/dL (32-36); Mean Corpuscular Hgb 25.2 pg (27.0-32.0); Mean Corpuscular Volume 84.2 fL (80-94); Mean Platelet Vol. 9.9 fl (6.2-12.0); Monocyte# 0.62 X10^3/uL; Monocyte% 9.8 % (0-10); NRBC Flagged by Analyzer 0 % (0-5); Neutrophil # 3.96 X10^3/uL (2.7-7.7); Neutrophil % 62.8 % (47-70); Platelet Count 358 K/mm3 (150-450); RBC Distribution Width CV 14.9 % (11.6-14.6); RBC Distribution Width SD 45.8 fl (35.1-43.9); Red Blood Count 3.61 M/mm3 (4.6-6.2); White Blood Count 6.3 K/mm3 (4.4-11.0)
== END | disposition home or self-care (01) ==
LOC: VSLAB 11:53
PROVIDERS: PCP Nurse Practitioner Family; Visit Provider Nurse Practitioner Family
DX: B34.9 Viral infection, unspecified (principal); R63.4 Abnormal weight loss
CPT/HCPCS: 36415; 80048; 84443; 85025

== ENCOUNTER → 2023-10-13 | Outpatient (CLI) | payer MEDICARE, MEDICAID, SELFPAY ==
[2023-09-09 09:43] VITALS: BMI 21.8
[2023-10-13 16:02] LABS: Absolute Lymphocyte Count 1.42 X10^3/uL (0.83-4.51); Absolute Neutrophil Count 3.6 X10^3/uL (2.0-7.7); Basophil# 0.04 X10^3/uL; Basophil% 0.7 % (0-1); Eosinophils% 1.8 % (0-5); Lymphocyte # 1.42 X10^3/ul (0.83-4.51); Lymphocyte % 25.2 % (19-41); Mean Corpuscular Hgb 24.8 pg (27.0-32.0); Mean Corpuscular Volume 82.6 fL (80-94); Monocyte# 0.43 X10^3/uL; Monocyte% 7.6 % (0-10); NRBC Flagged by Analyzer 0 % (0-5); Neutrophil # 3.63 X10^3/uL (2.7-7.7); Neutrophil % 64.3 % (47-70); Platelet Count 332 K/mm3 (150-450); RBC Distribution Width CV 15.5 % (11.6-14.6); RBC Distribution Width SD 47.2 fl (35.1-43.9); Red Blood Count 3.63 M/mm3 (4.6-6.2); White Blood Count 5.6 K/mm3 (4.4-11.0)
[2023-10-13 16:27] LABS: Anion Gap 4 (5-15); BUN 13 mg/dL (7-18); BUN/Creat Ratio 10.6 RATIO (10-20); Calcium,Total 9.3 mg/dL (8.5-10.1); Chloride 111 mmol/L (98-107); Creatinine, Serum 1.23 mg/dL (0.70-1.30); EST Glomerular Filtration Rate 61 mL/min (>60); Est Glom Filt Rate - Afr Amer 74 mL/min (>60); Glucose 135 mg/dL (74-106); Potassium 3.6 mmol/L (3.5-5.1); Sodium Level 142 mmol/L (136-145)
== END | disposition home or self-care (01) ==
PROVIDERS: PCP Nurse Practitioner Family; Referring Provider Nurse Practitioner Gerontology; Visit Provider Nurse Practitioner Gerontology
DX: R42 Dizziness and giddiness (principal)
CPT/HCPCS: 36415; 80048; 85025

== ENCOUNTER 2023-10-28 12:24 | Emergency (ER) | payer MEDICARE, MEDICAID, SELFPAY ==
[2023-09-09 09:43] VITALS: BMI 21.8
[2023-10-28 12:25] VITALS: BP 116/68; PULSE 85; RESP 16; TEMP 36.1; O2SAT 95; BMI 24.3
--- NOTE | 2023-10-28 13:01 | ED.VIS.FALL ---
HPI HPI - Fall History of Present Illness Chief Complaint: Fall Informant: patient Narrative Narrative: 73-year-old male presenting to the emergency room with injury sustained from a fall. Patient states he fell twice last night when his knee twisted. States his left knee is a needed for replacement as he has significant arthritis in it. He states that during the 2 falls he injured the anterior mid chest, right shoulder (patient reports a shoulder replacement [address] Vazquez), and left knee pain. He uses a rollator. He states that he did not strike his head. He is however on Eliquis and Plavix. He denies any loss of consciousness with the fall. This would be in contrast with the nursing triage note which stated that he had syncope. The patient states that at he has been losing weight but is unsure why. He has help at home form of a neighbor. He states he has a medic assist alert necklace. [facility] Medical History Fatigue Lives in alf Schizophrenia Primary osteoarthritis, right shoulder Severe malnutrition Generalized weakness Adult failure to thrive Localized osteoarthritis of right knee Pulmonary embolism Ventral hernia, recurrent Rheumatoid arthritis Chronic pain Kidney disease Congestive heart failure (CHF) Pain of left knee and lower leg Complete rotator cuff tear Marijuana use Shoulder impingement SLAP tear of shoulder Acromioclavicular joint arthritis Essential hypertension (08/02/20) Chronic obstructive lung disease (08/02/20) Neck sprain (03/01/11) Neck pain (03/01/11) Malaise and fatigue (08/02/20) Low back pain (03/01/11) Displacement of lumbar intervertebral disc without myelopathy (03/01/11) Brachial neuritis (05/31/11) Wears glasses Dementia Alcohol use Ambulates with cane Arthritis Prostate disease High cholesterol Back pain History of IBS Emphysema, unspecified Shortness of breath on exertion History of pain when walking History of stress test History of echocardiogram Cardiology follow-up encounter History of CHF (congestive heart failure) History of irregular heartbeat Osteoarthritis of left knee Bipolar disorder Diabetes GERD (gastroesophageal reflux disease) Former smoker CPAP (continuous positive airway pressure) dependence COPD (chronic obstructive pulmonary disease) Myocardial infarct Hypertension Migraines Irregular heart beat PND (paroxysmal nocturnal dyspnea) Orthopnea Cervical spondylosis Cervical radiculitis Partial tear of right rotator cuff Essential (primary) hypertension Smoking greater than 40 pack years Dementia PVCs (premature ventricular contractions) Lung nodule < 6cm on CT Dyspnea on exertion Wheezing Chest tightness Cannabis dependence DDD (degenerative disc disease) BPH (benign prostatic hyperplasia) Pleurisy Anxiety Depression Atherosclerotic heart disease of [place] coronary artery without angina pectoris Hyperlipidemia Trigger finger MONIQUE (obstructive sleep apnea) Syncope and collapse Stage 2 moderate COPD by GOLD classification Peptic ulcer disease Restless leg syndrome Schizophrenia Asthma History of pulmonary embolism Home Medications ?Medication ?Instructions ?Recorded ?Last Taken ?Type ropinirole 0.5 mg tablet 0.5 mg PO QHS RESTLESS LEGS 04/23/16 09/02/23 History tamsulosin 0.4 mg capsule 0.4 mg PO QHS PROSTATE 01/30/17 09/02/23 History baclofen 10 mg tablet 10 mg PO TID PRN PRN PAIN 11/09/20 07/09/23 History icosapent ethyl 1 gram capsule 2 g PO BID HEART 11/09/20 09/02/23 History (Vascepa) donepezil 10 mg tablet 10 mg PO DAILY ALZHEIMERS 10/23/21 09/02/23 History lamotrigine 200 mg tablet 200 mg PO DAILY MOOD 10/23/21 09/02/23 History (Lamictal) olanzapine 10 mg tablet (Zyprexa) 10 mg PO QHS MOOD 10/23/21 09/02/23 History clopidogrel 75 mg tablet 75 mg PO DAILY BLOOD THINNER #30 01/03/23 08/27/23 Rx tabs budesonide 160 mcg-glycopyr 9 2 inh inhalation BID COPD #10.7 01/28/23 09/02/23 Rx mcg-formot 4.8 mcg/actuation HFA grams inhaler (Breztri Aerosphere) dicyclomine 20 mg tablet 20 mg PO TID IRRITABLE BOWELS 04/15/23 09/02/23 History fexofenadine 180 mg tablet 180 mg PO DAILY PRN PRN ALLERGIES 04/15/23 07/09/23 History ondansetron 4 mg disintegrating 4 mg PO TID PRN NAUSEA 04/15/23 07/09/23 History tablet potassium chloride 20 mEq 20 meq PO DAILY SUPPLEMENT 04/15/23 09/02/23 History tablet,extended release(part/cryst) trazodone 150 mg tablet 150 mg PO QHS SLEEP 04/15/23 09/02/23 History nitroglycerin 0.4 mg sublingual 0.4 mg sublingual Q5-15M PRN chest 06/16/23 Unknown Rx tablet (Nitrostat) pain #25 tabs atorvastatin 40 mg tablet 40 mg PO QHS CHOLESTEROL #90 tabs 06/24/23 09/02/23 Rx albuterol sulfate 2.5 mg/3 mL 2.5 mg inhalation Q8H PRN 07/10/23 07/09/23 History (0.083 %) solution for nebulization shortness of breath or wheezing albuterol sulfate 90 mcg/actuation 2 puff inhalation Q6H PRN 07/10/23 07/09/23 History aerosol inhaler Shortness Of Breath apixaban 5 mg tablet (Eliquis) 5 mg PO BID 07/10/23 09/01/23 History desvenlafaxine succinate 100 mg 100 mg PO DAILY 07/10/23 09/02/23 History tablet,extended release 24 hr mesalamine 0.375 gram 1.5 g PO BID 07/10/23 09/02/23 History capsule,extended release 24 hr aluminum-mag hydroxide-simethicone 15 ml PO Q4H PRN PRN indigestion 09/02/23 Unknown History 400 mg-400 mg-40 mg/5 mL oral susp (Mylanta Maximum Strength) ferrous sulfate 325 mg (65 mg 325 mg PO DAILY 09/02/23 09/02/23 History iron) tablet furosemide 20 mg tablet (Lasix) 20 mg PO DAILY 09/02/23 09/02/23 History losartan 25 mg tablet 50 mg PO DAILY BLOOD PRESSURE 09/02/23 09/02/23 History acetaminophen 500 mg tablet 1,000 mg (2 x 500 mg) PO Q8 #0 tabs 09/05/23 Unknown Rx sennosides 8.6 mg tablet (senna) 8.6 mg PO BID PRN Constipation #0 09/05/23 Unknown Rx tabs Lactobacillus acidoph-L.bulgaricus 1 tab PO QDAY 10/13/23 Unknown History 1 million cell tablet (Floranex) budesonide 3 mg 9 mg PO QDAY 10/13/23 Unknown History capsule,delayed,extended release oxycodone-acetaminophen 5 mg-325 1 tab PO BID PRN 10/13/23 Unknown History mg tablet oxycodone-acetaminophen 5 mg-325 1 tab PO Q6H PRN PRN Pain 3 days 10/28/23 Unknown Rx mg tablet #12 TABLETS Allergy/AdvReac Type Severity Reaction Status Date / Time Quinolones Allergy Unknown unknown Verified 10/28/23 12:25 aspirin Allergy Itching, Verified 10/28/23 12:25 Hives levofloxacin (From Levaquin) Allergy Hives, Verified 10/28/23 12:25 Itching Penicillins Allergy Hives, Verified 10/28/23 12:25 Itching Family History Mother CAD (coronary artery disease) Sister Diabetes Surgical History History of right shoulder replacement Hx of colonoscopy S/P right rotator cuff repair Hx of repair of right rotator cuff (06/04/22) H/O left knee surgery History of laparoscopic cholecystectomy History of appendectomy H/O cervical spine surgery H/O ventral hernia repair History of left heart catheterization (04/2016) History of coronary artery stent placement (10/16/18) Social History household members: none housing: house current occupational status: disabled Smoking Status: Former smoker quit date: 02/14/15 how long ago did patient quit smokin years ago second hand exposure: Yes alcohol intake: former details: Quit 9 years ago substance use type: does not use caffeine: Yes Type: coffee what type of physical activity do you participate in: none seatbelt use: always do you feel safe at home: Yes ROS ROS ED Constitutional Constitutional ED: Denies chills, fever(s) or weight loss Eyes Eyes: Denies change in vision or diplopia ENT ENT ED: Denies ear pain, rhinorrhea or sore throat Cardiovascular Cardiovascular: Reports chest pain; Denies orthopnea, palpitations or racing heartbeat Respiratory/Chest Respiratory/Chest: Denies cough, dyspnea or orthopnea Gastrointestinal Gastrointestinal: Denies abdominal pain, diarrhea, nausea or vomiting Genitourinary Genitourinary ED: Denies dysuria, hematuria or urinary frequency Musculoskeletal Musculoskeletal: Reports other Details: Right shoulder left knee pain ; Denies arthralgias or myalgias Integumentary Denies abscess or rash Neurologic Neurologic: Denies headache(s) or weakness Psychiatric Psychiatric: Denies anxiety, depression, suicidal ideation or suicidal thoughts Endocrine Endocrinology: Denies polydipsia, polyphagia or polyuria Allergic/Immunologic Allergic/Immunologic ED: Denies mouth swelling, tongue swelling or urticaria EXAM Physical Exam Const Vital Signs: 10/28/23 12:25 10/28/23 13:48 10/28/23 14:24 Temperature 97.0 F L Temperature Source Temporal Pulse Rate 85 91 Respiratory Rate 16 19 H Respiratory Effort Normal Blood Pressure 116/68 121/81 H Blood Pressure Mean 84 94 Pulse Ox 95 97 97 Oxygen Delivery Method Room Air Room Air Room Air 10/28/23 14:45 Temperature 98 F Temperature Source Pulse Rate 88 Respiratory Rate 19 H Respiratory Effort Blood Pressure 121/81 H Blood Pressure Mean 94 Pulse Ox 98 Oxygen Delivery Method Positive well nourished and well developed General Appearance ED: well developed and NAD HEENT Reports normocephalic, head/scalp atraumatic and moist mucous membranes Eyes PERRL and EOMs intact bilaterally Neck full ROM, no lymphadenopathy, supple and no JVD Chest Wall Chest Narrative: Tender to palpation over the lower manubrium and lower anterior right and left costochondral region. No significant ecchymosis is seen. No crepitance or subcutaneous emphysema palpated. Resp normal respiratory effort and clear to auscultation bilaterally Cardio regular rate, regular rhythm and no murmurs GI normal to inspection, nondistended, normoactive bowel sounds and non-tender Palpation: soft Back/Spine no CVA tenderness and normal ROM Extremity Extremity Narrative: Right shoulder is tender to palpation over the anterior aspect. I do not appreciate an obvious deformity. He has limited range of motion secondary to pain. There is a healing surgical incision anteriorly. Neurovascular intact distal. Left knee demonstrates mild tenderness to palpation. There is no obvious deformity. There is some purple ecchymosis over the anterior patella. Extensor mechanism is intact. Ligaments appear stable. General Extremety ED: Negative for edema General Extremity: Negative for edema Neuro oriented x3 and CN's II-XII intact bilaterally Sensorium / Orientation: alert Motor Exam: strength 5/5 throughout Psych mental status grossly normal Mood & Affect: Negative for depressed or tearful Skin no rashes or lesions noted and no wounds MDM MDM MDM Narrative Medical decision making narrative: Differential diagnosis includes knee fracture or ligamentous injury contusion knee effusion, shoulder fracture rotator cuff injury contusion sprain strain, rib fracture contusion costochondral separation pleural effusion/hemothorax pneumothorax cardiac contusion pulmonary contusion subdural hematoma CT the brain was obtained which demonstrates no intracranial hemorrhage or hematoma. CTA chest demonstrates no obvious fracture effusion or pulmonary contusion. My independent interpretation of plain films of the right shoulder is no obvious fracture status post shoulder replacement. My independent interpretation plain films of the left knee is no acute fracture significant arthritic changes noted. Patient received pain medication. He is able to ambulate here in the department safely with his rollator. He will be discharged home return if worsening or concerns History & Record Review Discussion w/independent historian: Patient Radiography Diagnostic Testing: Clinical Impression(s) from Imaging Studies Brain CT 10/28/23 13:05 IMPRESSION: Chronic involutional changes of the brain. Electronically Signed: Jimmy Mathew MD at 13:49 EDT , Chest CT 10/28/23 13:05 IMPRESSION: Hyperinflation. No acute abnormality is seen. Electronically Signed: Jimmy Mathew MD at 13:55 EDT , Knee X-Ray 10/28/23 13:35 IMPRESSION: Degenerative arthrosis. Electronically Signed: Jimmy Mathew MD at 14:07 EDT , Shoulder X-Ray 10/28/23 13:35 IMPRESSION: Status post right shoulder replacement. Electronically Signed: Jimmy Mathew MD at 14:13 EDT , Discharge Plan Triage Chief Complaint: Fall ED Provider: Alfredo Corley Dx/Rx/DC Orders Clinical Impression: Fall, Contusion of knee, left, Chest wall contusion, Contusion of right shoulder, Anticoagulated Instructions: Bruises (Contusions), ED Chest Wall Contusion Prescriptions: New oxycodone-acetaminophen 5-325 mg tablet 1 tab PO Q6H PRN PRN (Reason: Pain) 3 Days Qty: 12 0RF No Action icosapent ethyl [Vascepa] 1 gram capsule 2 g PO BID baclofen 10 mg tablet 10 mg PO TID PRN PRN (Reason: PAIN) olanzapine [Zyprexa] 10 mg tablet 10 mg PO QHS donepezil 10 mg tablet 10 mg PO DAILY lamotrigine [Lamictal] 200 mg tablet 200 mg PO DAILY Breztri Aerosphere 160-9-4.8 mcg/actuation HFA aerosol inhaler 2 inh inhalation BID Qty: 10.7 11RF oxycodone-acetaminophen 5-325 mg tablet 1 tab PO BID PRN budesonide 3 mg capsule,delayed,extend.release 9 mg PO QDAY Lactobacillus acidoph-L.bulgar [Floranex] 1 million cell tablet 1 tab PO QDAY ropinirole 0.5 MG tablet 0.5 mg PO QHS tamsulosin 0.4 MG capsule,extended release 24hr 0.4 mg PO QHS fexofenadine 180 mg tablet 180 mg PO DAILY PRN PRN (Reason: ALLERGIES ) dicyclomine 20 mg tablet 20 mg PO TID potassium chloride 20 mEq tablet,ER particles/crystals 20 meq PO DAILY trazodone 150 mg tablet 150 mg PO QHS ondansetron 4 mg tablet,disintegrating 4 mg PO TID PRN (Reason: NAUSEA ) Eliquis 5 mg tablet 5 mg PO BID desvenlafaxine succinate 100 mg tablet extended release 24 hr 100 mg PO DAILY mesalamine 0.375 gram capsule,extended release 24hr 1.5 g PO BID Patient Comments: PT UNAWARE OF DOSAGE OR FREQ albuterol sulfate 2.5 mg /3 mL (0.083 %) solution for nebulization 2.5 mg INHALATION Q8H PRN (Reason: shortness of breath or wheezing) albuterol sulfate 90 mcg/actuation HFA aerosol inhaler 2 puff INHALATION Q6H PRN (Reason: Shortness Of Breath) alum-mag hydroxide-simeth [Mylanta Maximum Strength] 400-400-40 mg/5 mL suspension 15 ml PO Q4H PRN PRN (Reason: indigestion) ferrous sulfate 325 mg (65 mg iron) tablet 325 mg PO DAILY furosemide [Lasix] 20 mg tablet 20 mg PO DAILY losartan 25 mg tablet 50 mg PO DAILY acetaminophen 500 mg Tablet 1,000 mg PO Q8 Qty: 0 0RF sennosides [senna] 8.6 mg Tablet 8.6 mg PO BID PRN (Reason: Constipation) Qty: 0 0RF clopidogrel 75 mg tablet 75 mg PO DAILY Qty: 30 11RF nitroglycerin [Nitrostat] 0.4 mg tablet, sublingual 0.4 mg sublingual Q5-15M PRN (Reason: chest pain) Qty: 25 3RF Rx Instructions: do not exceed 3 doses per episode atorvastatin 40 mg tablet 40 mg PO QHS Qty: 90 3RF Primary Care Provider: Eliel Mosley Referrals: Seth Vazquez MD [Med Staff - Active Staff] - 1 Week if not improving Eliel Mosley, MINIATURE TRAIN DRIVER-C [Primary Care Provider] - 1 Week if not improving Print Language: Palestinian Disposition Disposition: Home, Self Care Discharge Date/Time: 10/28/23 14:48
--- NOTE | 2023-10-28 13:05 | CT_ITS ---
STUDY: CT BRAIN WITHOUT CONTRAST REASON FOR EXAM: Male, 73 years old. Head injury due to a fall. RADIATION DOSAGE (If Supplied By Facility): CTDIvol = ( 44.99 ) mGy, DLP = ( 812.98 ) mGycm TECHNIQUE: Transaxial CT imaging of the brain was performed without administration of intravenous contrast material. Individualized dose optimization techniques were used for this CT. COMPARISON: Comparison is made with prior study dated August 26, 2021. FINDINGS: Normal soft tissue structures. Normal calvarium. There is mild cerebral atrophy with widening of the extra-axial spaces and ventricular dilatation. There are areas of decreased attenuation within the white matter tracts of the supratentorial brain, consistent with microvascular disease changes. Normal basal ganglia and thalami. Normal brainstem. Normal cerebellum. There is no intracranial hemorrhage. There are no findings of an acute ischemic infarction. Mucosal thickening of the maxillary sinuses inferiorly worse on the right side. CT/Brain/Head without Contrast IMPRESSION: Chronic involutional changes of the brain. Electronically Signed: Jimmy Mathew MD at 13:49 EDT ,
--- NOTE | 2023-10-28 13:05 | CT_ITS ---
STUDY: CT CHEST WITHOUT CONTRAST REASON FOR EXAM: Male, 73 years old. Anterior rib injury RADIATION DOSAGE (If Supplied By Facility): CTDIvol = ( 15.84 ) mGy, DLP = ( 716.34 ) mGycm TECHNIQUE: Transaxial imaging was performed without the administration of intravenous contrast material. Multiplanar coronal and sagittal images were reformatted. Individualized dose optimization techniques were used for this CT. COMPARISON: Comparison is made with prior study dated August 08, 2022. FINDINGS: CHEST Hyperinflation. There is no demonstrated pleural abnormality. There are calcifications of the coronary arteries. Normal mediastinum. Normal hilar regions. Normal unenhanced pulmonary arteries. Normal aorta arch and descending thoracic aorta. There are multi-level degenerative changes of the thoracic spine. Small hiatal hernia. Status post cholecystectomy. There is a 1.7 cm cyst in the upper pole of the right kidney. CT/Chest without Contrast IMPRESSION: Hyperinflation. No acute abnormality is seen. Electronically Signed: Jimmy Mathew MD at 13:55 EDT ,
[2023-10-28] MEDS: oxyCODONE 5 MG Tablet PO (13:12)
[2023-10-28] MEDS: Acetaminophen 500 MG Tablet 1000 MG PO (13:12)
--- NOTE | 2023-10-28 13:35 | RAD_ITS ---
STUDY: X-RAY - RIGHT SHOULDER REASON FOR EXAM: Male, 73 years old. Pain following a fall. TECHNIQUE: 2 view(s) of the shoulder. COMPARISON: Comparison is made with prior radiograph dated October 07, 2023. FINDINGS: The patient is status post right reverse shoulder replacement. There is good alignment. Normal acromioclavicular joint. Normal acromion. The soft tissue structures are unremarkable. Normal visualized pulmonary apex. RAD/Shoulder min 2 Views IMPRESSION: Status post right shoulder replacement. Electronically Signed: Jimmy Mathew MD at 14:13 EDT ,
--- NOTE | 2023-10-28 13:35 | RAD_ITS ---
STUDY: X-RAY - LEFT KNEE REASON FOR EXAM: Male, 73 years old. Pain following a fall. TECHNIQUE: 4 view(s) of the knee. COMPARISON: Comparison is made with prior study July 05, 2023. FINDINGS: Normal visualized distal femur. Normal visualized proximal tibia and fibula. Normal proximal tibiofibular articulation. There is moderate degenerative arthrosis of the medial femorotibial compartment with moderate joint space narrowing. Normal lateral femorotibial compartment. Normal patellofemoral articulation. The soft tissue structures are unremarkable. RAD/Knee 4 or More Views IMPRESSION: Degenerative arthrosis. Electronically Signed: Jimmy Mathew MD at 14:07 EDT ,
[2023-10-28 13:48] VITALS: O2SAT 97
[2023-10-28 14:15] VITALS: O2SAT 97
[2023-10-28 14:24] VITALS: BP 121/81; PULSE 91; RESP 19; O2SAT 97
[2023-10-28 14:45] VITALS: BP 121/81; PULSE 88; RESP 19; TEMP 36.6; O2SAT 98
== END 2023-10-28 14:48 | disposition home or self-care (01) ==
PROVIDERS: Emergency Provider Emergency Medicine; PCP Nurse Practitioner Family; Visit Provider Emergency Medicine
DX: S80.02XA Contusion of left knee, initial encounter (principal); F20.9 Schizophrenia, unspecified; I11.0 Hypertensive heart disease with heart failure; I50.9 Heart failure, unspecified; J44.9 Chronic obstructive pulmonary disease, unspecified; E11.9 Type 2 diabetes mellitus without complications; S20.20XA Contusion of thorax, unspecified, initial encounter; S40.011A Contusion of right shoulder, initial encounter; I25.10 Atherosclerotic heart disease of native coronary artery without angina pectoris; Z79.01 Long term (current) use of anticoagulants; W19.XXXA Unspecified fall, initial encounter; Z86.711 Personal history of pulmonary embolism; Z95.5 Presence of coronary angioplasty implant and graft; Z87.891 Personal history of nicotine dependence
CPT/HCPCS: 70450; 71250; 73030; 73564; 99283

== ENCOUNTER → 2023-12-01 | Outpatient (CLI) | payer MEDICARE, MEDICAID, SELFPAY ==
[2023-09-09 09:43] VITALS: BMI 21.8
--- NOTE | 2023-12-01 12:42 | CDU_ITS ---
Reason For Study: Dizziness Rt. Velocities/BP Lt. Velocities/BP Prox CCA 96/19 cm/sec. Prox CCA 111/35 cm/sec. Mid CCA 81/20 cm/sec. Mid CCA 88/25 cm/sec. Dist CCA 62/20 cm/sec. Dist CCA 77/24 cm/sec. Prox ICA 71/19 cm/sec. Prox ICA 56/20 cm/sec. Mid ICA 79/22 cm/sec. Mid ICA 71/28 cm/sec. Dist ICA 89/29 cm/sec. Dist ICA 84/40 cm/sec. Rt. ICA/CCA = 1.1. Lt. ICA/CCA = 1.0. Prox ECA 71/8 cm/sec. Prox ECA 70/14 cm/sec. Rt. Vert. 43/11 cm/sec. Lt. Vert. 47/16 cm/sec. Right Extracranial There is heterogeneous, irregular atherosclerotic plaque noted in the right common carotid artery. There is heterogeneous, irregular atherosclerotic plaque noted in the right internal carotid artery. There is intimal thickening but no significant atherosclerotic plaque noted in the right external carotid artery. Antegrade flow is noted in the right vertebral artery. Left Extracranial There is heterogeneous, irregular atherosclerotic plaque noted in the left common carotid artery. There is heterogeneous, irregular atherosclerotic plaque noted in the left internal carotid artery. There is no significant atherosclerotic plaque noted in the left external carotid artery. Antegrade flow is noted in the left vertebral artery. Procedure Carotid Duplex 32188. This is a Carotid Duplex examination using B-mode, color flow and specral Doppler. Exam performed in department. VL/Carotid Duplex Ultrasound Interpretation Summary Mild (<50%) stenosis right extracranial internal carotid. Mild (<50%) stenosis left extracranial internal carotid. Patent and antegrade vertebrals bilaterally. Ordering Physician: Keely Pandya Referring Physician: Eliel Mosley Performed By: Suzy Tapia, DANA, RVT
== END | disposition home or self-care (01) ==
LOC: CVS 12:41
PROVIDERS: PCP Nurse Practitioner Family; Referring Provider Nurse Practitioner Gerontology; Visit Provider Nurse Practitioner Gerontology
DX: R42 Dizziness and giddiness (principal)
CPT/HCPCS: 93880

== ENCOUNTER → 2023-12-24 | Outpatient (CLI) | payer MEDICARE, MEDICAID, SELFPAY ==
[2023-09-09 09:43] VITALS: BMI 21.8
[2023-12-24 09:59] LABS: Absolute Lymphocyte Count 2.67 X10^3/uL (0.83-4.51); Absolute Neutrophil Count 5.4 X10^3/uL (2.0-7.7); Basophil# 0.05 X10^3/uL; Basophil% 0.6 % (0-1); Eosinophil# 0.06 X10^3/uL; Eosinophils% 0.7 % (0-5); Hematocrit 36.7 % (40-54); Hemoglobin 11.2 g/dL (13.0-16.5); Lymphocyte # 2.67 X10^3/ul (0.83-4.51); Mean Corp Hgb Conc 30.5 g/dL (32-36); Mean Corpuscular Hgb 25.3 pg (27.0-32.0); Mean Corpuscular Volume 82.8 fL (80-94); Mean Platelet Vol. 9.5 fl (6.2-12.0); Monocyte# 0.64 X10^3/uL; Monocyte% 7.2 % (0-10); NRBC Flagged by Analyzer 0 % (0-5); Neutrophil % 60.5 % (47-70); Platelet Count 289 K/mm3 (150-450); RBC Distribution Width CV 17.9 % (11.6-14.6); RBC Distribution Width SD 54.4 fl (35.1-43.9); Red Blood Count 4.43 M/mm3 (4.6-6.2); White Blood Count 8.9 K/mm3 (4.4-11.0)
[2023-12-24 10:07] LABS: Erythrocyte Sedimentation Rate 2 mm/hr (0-20)
[2023-12-24 11:03] LABS: ALB/GLOB Ratio 1.2 RATIO (0.9-2.4); AST(SGOT) 10 U/L (15-37); Alanine Aminotransfer ALT/SGPT 35 U/L (16-61); Albumin, Serum 3.7 g/dL (3.2-5.0); Alkaline Phosphatase 121 U/L (45-117); Anion Gap 7 (5-15); BUN 16 mg/dL (7-18); BUN/Creat Ratio 13.2 RATIO (10-20); CRP < 2.90 mg/L (0.0-3.0); Calcium,Total 9.5 mg/dL (8.5-10.1); Chloride 108 mmol/L (98-107); Creatinine, Serum 1.21 mg/dL (0.70-1.30); EST Glomerular Filtration Rate 62 mL/min (>60); Est Glom Filt Rate - Afr Amer 75 mL/min (>60); Free T3 2.2 pg/mL (2.18-3.98); Glucose 104 mg/dL (74-106); LDH 191 U/L (87-241); Potassium 3.9 mmol/L (3.5-5.1); Protein, Total 6.7 g/dL (6.4-8.2); Sodium Level 139 mmol/L (136-145); T4 Free Direct 0.85 ng/dL (0.76-1.46); Thyroid Stim Hormone (TSH) 0.728 uIU/mL (0.358-3.740)
[2023-12-28 17:07] LABS: Anti-Centromere B Ab <0.2 AI (0.0-0.9); Anti-Chromatin <0.2 AI (0.0-0.9); Anti-Jo <0.2 AI (0.0-0.9); Anti-Scleroderma-70 AB <0.2 AI (0.0-0.9); Anti-dsDNA Ab <1 IU/mL (0-9); Beef <0.10 kU/L (Class 0); Chocolate <0.10 kU/L (Class 0); Codfish <0.10 kU/L (Class 0); Corn 0.56 kU/L (Class II); Milk (Cow) <0.10 kU/L (Class 0); Mussels <0.10 kU/L (Class 0); Peanut <0.10 kU/L (Class 0); Pork <0.10 kU/L (Class 0); RNP Ab <0.2 AI (0.0-0.9); SJOGREN'S Anti-SS-A test < 0.2 AI (0.0-0.9); SJOGREN'S Anti-SS-B test < 0.2 AI (0.0-0.9); Salmon <0.10 kU/L (Class 0); Shrimp <0.10 kU/L (Class 0); Smith Ab <0.2 AI (0.0-0.9); Soybean <0.10 kU/L (Class 0); Tuna <0.10 kU/L (Class 0); Wheat <0.10 kU/L (Class 0)
[2023-12-30 11:09] LABS: ACCA 61 units (0-90); ALCA 5 units (0-60); AMCA 1 units (0-100); Albumin 3.9 g/dL (2.9-4.4); Alpha-1-Globulins 0.2 g/dL (0.0-0.4); Alpha-2-Globulins 0.9 g/dL (0.4-1.0); Cytoplasmic Ab (C-ANCA) <1:20 titer (Neg:<1:20); Endomysial Antibody IgA Negative (Negative); Gamma Globulin 0.3 g/dL (0.4-1.8); Immunoglobulin A 85 mg/dL (61-437); Immunoglobulin E 1724 IU/mL (6-495); Immunoglobulin G 411 mg/dL (603-1613); Immunoglobulin M 69 mg/dL (15-143); PROEL- TOTAL PROTEIN 6.3 g/dL (6.0-8.5); Perinuclear Ab (P-ANCA) <1:20 titer (Neg:<1:20); gASCA 13 units (0-50); t-Transglutaminase IgA <2 U/mL (0-3)
== END | disposition home or self-care (01) ==
LOC: LAB 08:49
PROVIDERS: PCP Nurse Practitioner Family
DX: K58.9 Irritable bowel syndrome, unspecified (principal); R19.7 Diarrhea, unspecified; T78.40XA Allergy, unspecified, initial encounter
CPT/HCPCS: 36415; 80053; 82784; 82785; 83516; 83615; 84165; 84439; 84443; 84481; 85025; 85652; 86003; 86005; 86036; 86037; 86140; 86225; 86235; 86255; 86334; 86671

== ENCOUNTER 2024-01-08 11:51 | Emergency (ER) | payer MEDICARE, MEDICAID, SELFPAY ==
[2023-09-09 09:43] VITALS: BMI 21.8
[2024-01-08 11:52] VITALS: BP 135/92; PULSE 85; RESP 16; TEMP 37.4; O2SAT 99
--- NOTE | 2024-01-08 14:27 | EX.ED.VIS.UR ---
HPI HPI - URI History of Present Illness Chief Complaint: Sore Throat Informant: patient Narrative Narrative: Patient has had sore throat/odynophagia for the past 6 days. States he saw his PCP and had a strep test and a COVID/influenza swab, all were negative, he was placed on antibiotics at that time. He states that was 2 or 3 days ago and the symptoms or not any better. He is also having some wheezing and mild nonproductive cough, he has a history of COPD. No fevers or chills. No earache or significant nasal congestion. He is mostly concerned because since the beginning of this he was unable to swallow his medications because it makes him gag. He is having no issues breathing through his throat/oropharynx/nose, and he is able to swallow water without any difficulty. ROS ROS ED Constitutional Constitutional ED: Denies chills or fever(s) ENT ENT ED: Reports rhinorrhea, sore throat and other Details: Bilateral TMJ pain often when opening jaw ; Denies ear pain Cardiovascular Cardiovascular: Denies chest pain or palpitations Respiratory/Chest Respiratory/Chest: Reports cough, dyspnea and wheezing; Denies sputum Gastrointestinal Gastrointestinal: Denies abdominal pain, diarrhea, nausea or vomiting Genitourinary Genitourinary ED: Denies dysuria or hematuria Musculoskeletal Musculoskeletal: Denies myalgias or neck pain Integumentary Denies abscess or rash Neurologic Neurologic: Denies headache(s), paresthesias or weakness Psychiatric Psychiatric: Denies depression or suicidal thoughts Endocrine Endocrinology: Denies polydipsia or polyuria PFSH PFS Medical History Fatigue Lives in half-way Schizophrenia Primary osteoarthritis, right shoulder Severe malnutrition Generalized weakness Adult failure to thrive Localized osteoarthritis of right knee Pulmonary embolism Ventral hernia, recurrent Rheumatoid arthritis Chronic pain Kidney disease Congestive heart failure (CHF) Pain of left knee and lower leg Complete rotator cuff tear Marijuana use Shoulder impingement SLAP tear of shoulder Acromioclavicular joint arthritis Essential hypertension (08/02/20) Chronic obstructive lung disease (08/02/20) Neck sprain (03/01/11) Neck pain (03/01/11) Malaise and fatigue (08/02/20) Low back pain (03/01/11) Displacement of lumbar intervertebral disc without myelopathy (03/01/11) Brachial neuritis (05/31/11) Wears glasses Dementia Alcohol use Ambulates with cane Arthritis Prostate disease High cholesterol Back pain History of IBS Emphysema, unspecified Shortness of breath on exertion History of pain when walking History of stress test History of echocardiogram Cardiology follow-up encounter History of CHF (congestive heart failure) History of irregular heartbeat Osteoarthritis of left knee Bipolar disorder Diabetes GERD (gastroesophageal reflux disease) Former smoker CPAP (continuous positive airway pressure) dependence COPD (chronic obstructive pulmonary disease) Myocardial infarct Hypertension Migraines Irregular heart beat PND (paroxysmal nocturnal dyspnea) Orthopnea Cervical spondylosis Cervical radiculitis Partial tear of right rotator cuff Essential (primary) hypertension Smoking greater than 40 pack years Dementia PVCs (premature ventricular contractions) Lung nodule < 6cm on CT Dyspnea on exertion Wheezing Chest tightness Cannabis dependence DDD (degenerative disc disease) BPH (benign prostatic hyperplasia) Pleurisy Anxiety Depression Atherosclerotic heart disease of [place] coronary artery without angina pectoris Hyperlipidemia Trigger finger MONIQUE (obstructive sleep apnea) Syncope and collapse Stage 2 moderate COPD by GOLD classification Peptic ulcer disease Restless leg syndrome Schizophrenia Asthma History of pulmonary embolism Home Medications ?Medication ?Instructions ?Recorded ?Last Taken ?Type ropinirole 0.5 mg tablet 0.5 mg PO QHS RESTLESS LEGS 04/23/16 09/02/23 History tamsulosin 0.4 mg capsule 0.4 mg PO QHS PROSTATE 01/30/17 09/02/23 History baclofen 10 mg tablet 10 mg PO TID PRN PRN PAIN 11/09/20 07/09/23 History icosapent ethyl 1 gram capsule 2 g PO BID HEART 11/09/20 09/02/23 History (Vascepa) donepezil 10 mg tablet 10 mg PO DAILY ALZHEIMERS 10/23/21 09/02/23 History lamotrigine 200 mg tablet 200 mg PO DAILY MOOD 10/23/21 09/02/23 History (Lamictal) olanzapine 10 mg tablet (Zyprexa) 10 mg PO QHS MOOD 10/23/21 09/02/23 History clopidogrel 75 mg tablet 75 mg PO DAILY BLOOD THINNER #30 01/03/23 08/27/23 Rx tabs budesonide 160 mcg-glycopyr 9 2 inh inhalation BID COPD #10.7 01/28/23 09/02/23 Rx mcg-formot 4.8 mcg/actuation HFA grams inhaler (Breztri Aerosphere) dicyclomine 20 mg tablet 20 mg PO TID IRRITABLE BOWELS 04/15/23 09/02/23 History ondansetron 4 mg disintegrating 4 mg PO TID PRN NAUSEA 04/15/23 07/09/23 History tablet potassium chloride 20 mEq 20 meq PO DAILY SUPPLEMENT 04/15/23 09/02/23 History tablet,extended release(part/cryst) nitroglycerin 0.4 mg sublingual 0.4 mg sublingual Q5-15M PRN chest 06/16/23 Unknown Rx tablet (Nitrostat) pain #25 tabs atorvastatin 40 mg tablet 40 mg PO QHS CHOLESTEROL #90 tabs 06/24/23 09/02/23 Rx albuterol sulfate 2.5 mg/3 mL 2.5 mg inhalation Q8H PRN 07/10/23 07/09/23 History (0.083 %) solution for nebulization shortness of breath or wheezing albuterol sulfate 90 mcg/actuation 2 puff inhalation Q6H PRN 07/10/23 07/09/23 History aerosol inhaler Shortness Of Breath mesalamine 0.375 gram 1.5 g PO BID 07/10/23 09/02/23 History capsule,extended release 24 hr ferrous sulfate 325 mg (65 mg 325 mg PO DAILY 09/02/23 09/02/23 History iron) tablet furosemide 20 mg tablet (Lasix) 20 mg PO DAILY 09/02/23 09/02/23 History acetaminophen 500 mg tablet 1,000 mg (2 x 500 mg) PO Q8 #0 tabs 09/05/23 Unknown Rx budesonide 3 mg 9 mg PO QDAY 10/13/23 Unknown History capsule,delayed,extended release oxycodone-acetaminophen 5 mg-325 1 tab PO Q6H PRN PRN Pain 3 days 10/28/23 Unknown Rx mg tablet #12 TABLETS aripiprazole 10 mg tablet 10 mg PO QDAY 11/19/23 Unknown History fenofibrate 54 mg tablet 54 mg PO QDAY 11/19/23 Unknown History loratadine 10 mg tablet 10 mg PO QDAY 11/19/23 Unknown History losartan 50 mg tablet 50 mg PO BID 11/19/23 Unknown History mirtazapine 30 mg tablet 30 mg PO QHS 11/19/23 Unknown History trazodone 50 mg tablet 50 - 150 mg PO QHS PRN 11/19/23 Unknown History fexofenadine 180 mg tablet 180 mg PO QDAY 12/18/23 Unknown History (Jeaneth Allergy) omeprazole 40 mg capsule,delayed 40 mg PO BID 1 month #60 caps 12/24/23 Unknown Rx release apixaban 5 mg tablet (Eliquis) 5 mg PO BID #60 tabs 12/30/23 Unknown Rx famotidine 20 mg tablet 20 mg PO BID 3 months #180 tabs 12/31/23 Unknown Rx prednisone 20 mg tablet 40 mg (2 x 20 mg) PO DAILY 5 days 01/08/24 Unknown Rx #10 tabs Allergy/AdvReac Type Severity Reaction Status Date / Time Quinolones Allergy Unknown unknown Verified 01/08/24 11:52 aspirin Allergy Itching, Verified 01/08/24 11:52 Hives levofloxacin (From Levaquin) Allergy Hives, Verified 01/08/24 11:52 Itching Penicillins Allergy Hives, Verified 01/08/24 11:52 Itching Family History Mother CAD (coronary artery disease) Sister Diabetes Surgical History History of right shoulder replacement Hx of colonoscopy S/P right rotator cuff repair Hx of repair of right rotator cuff (06/04/22) H/O left knee surgery History of laparoscopic cholecystectomy History of appendectomy H/O cervical spine surgery H/O ventral hernia repair History of left heart catheterization (04/2016) History of coronary artery stent placement (10/16/18) Social History household members: none housing: house current occupational status: disabled Smoking Status: Former smoker quit date: 02/14/15 how long ago did patient quit smokin years ago second hand exposure: Yes alcohol intake: former details: Quit 9 years ago substance use type: marijuana caffeine: Yes Type: coffee what type of physical activity do you participate in: none seatbelt use: always do you feel safe at home: Yes EXAM Physical Exam Const Vital Signs: 01/08/24 11:52 Temperature 99.3 F H Temperature Source Oral Pulse Rate 85 Respiratory Rate 16 Blood Pressure 135/92 H Blood Pressure Mean 106 Pulse Ox 99 Oxygen Delivery Method Room Air Positive well nourished and well developed General Appearance ED: well developed and NAD HEENT Reports moist mucous membranes HEENT Narrative: Posterior oropharynx erythematous no exudates or asymmetry or edema. No stridor. No dysphonia. No malocclusion or deformity of the mandible or TMJ's. He can open fully, states he occasionally gets a click that is very painful in the area of the TMJ. There is no parotid tenderness or swelling here or purulent discharge from Stensen's ducts bilaterally. Tongue is normal no elevation. No submental swelling or tenderness. normocephalic and atraumatic Eyes PERRL and EOMs intact bilaterally Neck no lymphadenopathy, supple and no meningeal signs Neck Narrative: No palpable periauricular, preauricular, or other cervical lymphadenopathy or mastoid tenderness Resp normal respiratory effort and clear to auscultation bilaterally Resp Narrative: Diminished throughout, otherwise clear Cardio no murmurs Rate: regular rate Rhythm: regular rhythm GI non-tender and non-distended Auscultation: normoactive bowel sounds Palpation: soft Extremity normal to inspection and full ROM Neuro oriented x3, CN's II-XII intact bilaterally and no sensory deficits noted Sensorium / Orientation: alert Motor Exam: strength 5/5 throughout Psych mental status grossly normal Skin Lesions: no lesions Rashes: no rashes MDM MDM MDM Narrative Medical decision making narrative: Patient is a low-grade fever with otherwise normal vital signs. His exam is extremely benign. He has no symptoms or findings on exam to suggest he has a posterior pharyngeal abscess or paraesophageal abscess or other deep space infection of the soft tissues of the neck. My suspicion is that he has viral etiology of his sore throat, other than COVID, influenza, RSV, and he states he already tested negative for strep although I do not have access to these records. I do not think he needs advanced imaging at this time although was considered. My suspicion is that prednisone is going to help his symptoms. However he states he is a diabetic and he is not on insulin. He states his blood sugars are usually good, today he states he already checked it and it was in the 100 range. I do not definitely see diabetes diagnosis or medications in his history, but I did residence counselor him on checking his blood sugars daily and if the prednisone makes his blood sugars go up into the 4-500 range to discontinue it and/or return to the ER if he has any other acute issues. We did give him some prednisone here. He was able to swallow it without any difficulty, so I feel he can be discharged home with a prescription for more. Discharge Plan Triage Chief Complaint: Sore Throat ED Provider: Juan Antonio Carter Dx/Rx/DC Orders Clinical Impression: Acute viral pharyngitis Instructions: ED Pharyngitis, Viral Prescriptions: New prednisone 20 mg tablet 40 mg PO DAILY 5 Days Qty: 10 0RF No Action icosapent ethyl [Vascepa] 1 gram capsule 2 g PO BID baclofen 10 mg tablet 10 mg PO TID PRN PRN (Reason: PAIN) olanzapine [Zyprexa] 10 mg tablet 10 mg PO QHS donepezil 10 mg tablet 10 mg PO DAILY lamotrigine [Lamictal] 200 mg tablet 200 mg PO DAILY Breztri Aerosphere 160-9-4.8 mcg/actuation HFA aerosol inhaler 2 inh inhalation BID Qty: 10.7 11RF budesonide 3 mg capsule,delayed,extend.release 9 mg PO QDAY losartan 50 mg tablet 50 mg PO BID trazodone 50 mg tablet 50 - 150 mg PO QHS PRN mirtazapine 30 mg tablet 30 mg PO QHS loratadine 10 mg tablet 10 mg PO QDAY aripiprazole 10 mg tablet 10 mg PO QDAY fenofibrate 54 mg tablet 54 mg PO QDAY fexofenadine [Jeaneth Allergy] 180 mg tablet 180 mg PO QDAY omeprazole 40 mg capsule,delayed release(DR/EC) 40 mg PO BID 30 Days Qty: 60 0RF ropinirole 0.5 MG tablet 0.5 mg PO QHS tamsulosin 0.4 MG capsule,extended release 24hr 0.4 mg PO QHS dicyclomine 20 mg tablet 20 mg PO TID potassium chloride 20 mEq tablet,ER particles/crystals 20 meq PO DAILY ondansetron 4 mg tablet,disintegrating 4 mg PO TID PRN (Reason: NAUSEA ) mesalamine 0.375 gram capsule,extended release 24hr 1.5 g PO BID Patient Comments: PT UNAWARE OF DOSAGE OR FREQ albuterol sulfate 2.5 mg /3 mL (0.083 %) solution for nebulization 2.5 mg INHALATION Q8H PRN (Reason: shortness of breath or wheezing) albuterol sulfate 90 mcg/actuation HFA aerosol inhaler 2 puff INHALATION Q6H PRN (Reason: Shortness Of Breath) ferrous sulfate 325 mg (65 mg iron) tablet 325 mg PO DAILY furosemide [Lasix] 20 mg tablet 20 mg PO DAILY acetaminophen 500 mg Tablet 1,000 mg PO Q8 Qty: 0 0RF oxycodone-acetaminophen 5-325 mg tablet 1 tab PO Q6H PRN PRN (Reason: Pain) 3 Days Qty: 12 0RF clopidogrel 75 mg tablet 75 mg PO DAILY Qty: 30 11RF nitroglycerin [Nitrostat] 0.4 mg tablet, sublingual 0.4 mg sublingual Q5-15M PRN (Reason: chest pain) Qty: 25 3RF Rx Instructions: do not exceed 3 doses per episode atorvastatin 40 mg tablet 40 mg PO QHS Qty: 90 3RF Eliquis 5 mg tablet 5 mg PO BID Qty: 60 2RF famotidine 20 mg tablet 20 mg PO BID 90 Days Qty: 180 1RF Primary Care Provider: Eliel Mosley Referrals: Eliel Mosley, [facility]NA[facility] [Primary Care Provider] - 3-5 Days if not improving Activity Restrictions/Additional Instructions: Start the prescription tomorrow, 01/08, you received the first dose of prednisone in the ER and it is only to be taken once daily at this dose. Try to take your medications as best you can. Check your blood sugar every day. If your blood sugar goes up to the 400 or 500 range, discontinue the prednisone. Print Language: Macedonian Disposition Disposition: Home, Self Care
[2024-01-08] MEDS: predniSONE 20 MG Tablet 40 MG PO (14:28)
[2024-01-08 15:16] VITALS: BP 135/92; PULSE 80; RESP 16; TEMP 37; O2SAT 99
== END 2024-01-08 15:27 | disposition home or self-care (01) ==
PROVIDERS: Emergency Provider Emergency Medicine; PCP Nurse Practitioner Family; Visit Provider Emergency Medicine
DX: J02.9 Acute pharyngitis, unspecified (principal); M06.9 Rheumatoid arthritis, unspecified; I11.0 Hypertensive heart disease with heart failure; I50.9 Heart failure, unspecified; F03.94 Unspecified dementia, unspecified severity, with anxiety; F03.93 Unspecified dementia, unspecified severity, with mood disturbance; F03.92 Unspecified dementia, unspecified severity, with psychotic disturbance; J44.9 Chronic obstructive pulmonary disease, unspecified; E11.9 Type 2 diabetes mellitus without complications; E78.00 Pure hypercholesterolemia, unspecified; K21.9 Gastro-esophageal reflux disease without esophagitis; I25.2 Old myocardial infarction; N40.0 Benign prostatic hyperplasia without lower urinary tract symptoms; I25.10 Atherosclerotic heart disease of native coronary artery without angina pectoris; G25.81 Restless legs syndrome; G47.33 Obstructive sleep apnea (adult) (pediatric); K58.9 Irritable bowel syndrome, unspecified; M17.0 Bilateral primary osteoarthritis of knee; M51.26 Other intervertebral disc displacement, lumbar region; M19.011 Primary osteoarthritis, right shoulder; M47.812 Spondylosis without myelopathy or radiculopathy, cervical region; G89.29 Other chronic pain; Z95.5 Presence of coronary angioplasty implant and graft; Z87.11 Personal history of peptic ulcer disease; Z90.49 Acquired absence of other specified parts of digestive tract; Z79.01 Long term (current) use of anticoagulants; Z79.02 Long term (current) use of antithrombotics/antiplatelets; Z87.891 Personal history of nicotine dependence; Z86.711 Personal history of pulmonary embolism; Z79.899 Other long term (current) drug therapy; Z96.611 Presence of right artificial shoulder joint
CPT/HCPCS: 99282; A4216

== ENCOUNTER 2024-01-10 18:07 | Emergency (ER) | payer MEDICARE, MEDICAID, SELFPAY ==
[2023-09-09 09:43] VITALS: BMI 21.8
[2024-01-10 18:08] VITALS: BP 129/63; PULSE 94; RESP 18; TEMP 36.5; O2SAT 97; BMI 25.2
--- NOTE | 2024-01-10 18:26 | EX.ED.VIS.PS ---
HPI HPI - Psych History of Present Illness Chief Complaint: Mental Health PFSH [facility] Medical History Fatigue Lives in correction Schizophrenia Primary osteoarthritis, right shoulder Severe malnutrition Generalized weakness Adult failure to thrive Localized osteoarthritis of right knee Pulmonary embolism Ventral hernia, recurrent Rheumatoid arthritis Chronic pain Kidney disease Congestive heart failure (CHF) Pain of left knee and lower leg Complete rotator cuff tear Marijuana use Shoulder impingement SLAP tear of shoulder Acromioclavicular joint arthritis Essential hypertension (08/02/20) Chronic obstructive lung disease (08/02/20) Neck sprain (03/01/11) Neck pain (03/01/11) Malaise and fatigue (08/02/20) Low back pain (03/01/11) Displacement of lumbar intervertebral disc without myelopathy (03/01/11) Brachial neuritis (05/31/11) Wears glasses Dementia Alcohol use Ambulates with cane Arthritis Prostate disease High cholesterol Back pain History of IBS Emphysema, unspecified Shortness of breath on exertion History of pain when walking History of stress test History of echocardiogram Cardiology follow-up encounter History of CHF (congestive heart failure) History of irregular heartbeat Osteoarthritis of left knee Bipolar disorder Diabetes GERD (gastroesophageal reflux disease) Former smoker CPAP (continuous positive airway pressure) dependence COPD (chronic obstructive pulmonary disease) Myocardial infarct Hypertension Migraines Irregular heart beat PND (paroxysmal nocturnal dyspnea) Orthopnea Cervical spondylosis Cervical radiculitis Partial tear of right rotator cuff Essential (primary) hypertension Smoking greater than 40 pack years Dementia PVCs (premature ventricular contractions) Lung nodule < 6cm on CT Dyspnea on exertion Wheezing Chest tightness Cannabis dependence DDD (degenerative disc disease) BPH (benign prostatic hyperplasia) Pleurisy Anxiety Depression Atherosclerotic heart disease of [place] coronary artery without angina pectoris Hyperlipidemia Trigger finger MONIQUE (obstructive sleep apnea) Syncope and collapse Stage 2 moderate COPD by GOLD classification Peptic ulcer disease Restless leg syndrome Schizophrenia Asthma History of pulmonary embolism Home Medications ?Medication ?Instructions ?Recorded ?Last Taken ?Type ropinirole 0.5 mg tablet 0.5 mg PO QHS RESTLESS LEGS 04/23/16 09/02/23 History tamsulosin 0.4 mg capsule 0.4 mg PO QHS PROSTATE 01/30/17 09/02/23 History baclofen 10 mg tablet 10 mg PO TID PRN PRN PAIN 11/09/20 07/09/23 History icosapent ethyl 1 gram capsule 2 g PO BID HEART 11/09/20 09/02/23 History (Vascepa) donepezil 10 mg tablet 10 mg PO DAILY ALZHEIMERS 10/23/21 09/02/23 History lamotrigine 200 mg tablet 200 mg PO DAILY MOOD 10/23/21 09/02/23 History (Lamictal) olanzapine 10 mg tablet (Zyprexa) 10 mg PO QHS MOOD 10/23/21 09/02/23 History clopidogrel 75 mg tablet 75 mg PO DAILY BLOOD THINNER #30 01/03/23 08/27/23 Rx tabs budesonide 160 mcg-glycopyr 9 2 inh inhalation BID COPD #10.7 01/28/23 09/02/23 Rx mcg-formot 4.8 mcg/actuation HFA grams inhaler (Breztri Aerosphere) dicyclomine 20 mg tablet 20 mg PO TID IRRITABLE BOWELS 04/15/23 09/02/23 History ondansetron 4 mg disintegrating 4 mg PO TID PRN NAUSEA 04/15/23 07/09/23 History tablet potassium chloride 20 mEq 20 meq PO DAILY SUPPLEMENT 04/15/23 09/02/23 History tablet,extended release(part/cryst) nitroglycerin 0.4 mg sublingual 0.4 mg sublingual Q5-15M PRN chest 06/16/23 Unknown Rx tablet (Nitrostat) pain #25 tabs atorvastatin 40 mg tablet 40 mg PO QHS CHOLESTEROL #90 tabs 06/24/23 09/02/23 Rx albuterol sulfate 2.5 mg/3 mL 2.5 mg inhalation Q8H PRN 07/10/23 07/09/23 History (0.083 %) solution for nebulization shortness of breath or wheezing albuterol sulfate 90 mcg/actuation 2 puff inhalation Q6H PRN 07/10/23 07/09/23 History aerosol inhaler Shortness Of Breath mesalamine 0.375 gram 1.5 g PO BID 07/10/23 09/02/23 History capsule,extended release 24 hr ferrous sulfate 325 mg (65 mg 325 mg PO DAILY 09/02/23 09/02/23 History iron) tablet furosemide 20 mg tablet (Lasix) 20 mg PO DAILY 09/02/23 09/02/23 History acetaminophen 500 mg tablet 1,000 mg (2 x 500 mg) PO Q8 #0 tabs 09/05/23 Unknown Rx budesonide 3 mg 9 mg PO QDAY 10/13/23 Unknown History capsule,delayed,extended release oxycodone-acetaminophen 5 mg-325 1 tab PO Q6H PRN PRN Pain 3 days 10/28/23 Unknown Rx mg tablet #12 TABLETS aripiprazole 10 mg tablet 10 mg PO QDAY 11/19/23 Unknown History fenofibrate 54 mg tablet 54 mg PO QDAY 11/19/23 Unknown History loratadine 10 mg tablet 10 mg PO QDAY 11/19/23 Unknown History losartan 50 mg tablet 50 mg PO BID 11/19/23 Unknown History mirtazapine 30 mg tablet 30 mg PO QHS 11/19/23 Unknown History trazodone 50 mg tablet 50 - 150 mg PO QHS PRN 11/19/23 Unknown History fexofenadine 180 mg tablet 180 mg PO QDAY 12/18/23 Unknown History (Jeaneth Allergy) omeprazole 40 mg capsule,delayed 40 mg PO BID 1 month #60 caps 12/24/23 Unknown Rx release apixaban 5 mg tablet (Eliquis) 5 mg PO BID #60 tabs 12/30/23 Unknown Rx famotidine 20 mg tablet 20 mg PO BID 3 months #180 tabs 12/31/23 Unknown Rx prednisone 20 mg tablet 40 mg (2 x 20 mg) PO DAILY 5 days 01/08/24 Unknown Rx #10 tabs Allergy/AdvReac Type Severity Reaction Status Date / Time Quinolones Allergy Unknown unknown Verified 01/10/24 18:08 aspirin Allergy Itching, Verified 01/10/24 18:08 Hives levofloxacin (From Levaquin) Allergy Hives, Verified 01/10/24 18:08 Itching Penicillins Allergy Hives, Verified 01/10/24 18:08 Itching Family History Mother CAD (coronary artery disease) Sister Diabetes Surgical History History of right shoulder replacement Hx of colonoscopy S/P right rotator cuff repair Hx of repair of right rotator cuff (06/04/22) H/O left knee surgery History of laparoscopic cholecystectomy History of appendectomy H/O cervical spine surgery H/O ventral hernia repair History of left heart catheterization (04/2016) History of coronary artery stent placement (10/16/18) Social History household members: none housing: house current occupational status: disabled Smoking Status: Former smoker quit date: 02/14/15 how long ago did patient quit smokin years ago second hand exposure: Yes alcohol intake: former details: Quit 9 years ago substance use type: marijuana caffeine: Yes Type: coffee what type of physical activity do you participate in: none seatbelt use: always do you feel safe at home: Yes EXAM Physical Exam Const Vital Signs: 01/10/24 18:08 01/10/24 21:06 01/10/24 21:59 Temperature 97.7 F L Temperature Source Temporal Pulse Rate 94 72 70 Respiratory Rate 18 16 16 Blood Pressure 129/63 H 128/74 H 130/72 H Blood Pressure Mean 85 92 91 Pulse Ox 97 97 98 Oxygen Delivery Method Room Air Room Air Room Air MDM MDM MDM Narrative Medical decision making narrative: HISTORY OF PRESENT ILLNESS: 73-year-old male brought in by police secondary to concerning welfare check. Patient endorses noncompliance to medications, endorses that he wants to just give up . He notes he is spoken with behavioral health specialist however he states they cannot help me . He notes he would like to get back on his meds. He is unsure if he suicidal. He notes he is fatigued/tired of being in chronic pain. REVIEW OF SYSTEMS: Pertinent positives: Suicidal ideation, medication noncompliance Pertinent negatives: Fever, chest pain, shortness of breath PHYSICAL EXAM: Nursing triage notes reviewed, Vital signs reviewed Constitutional: please see mdm HENT: MMM Eyes: No scleral icterus Neck: No stridor, no JVD, full neck ROM Lungs: Clear to auscultation, No wheezing or rales. No increased work of breathing, no conversational dyspnea, no accessory muscle use, no nasal flaring. No respiratory distress noted Heart: Regular rate and rhythm, No murmurs, No rubs and No gallops, 2+ distal pulses (radial, femoral, posterior tibial) in all extremities Abdomen: Soft, there is no tenderness, rigidity, rebound or guarding, no obvious peritoneal signs, no palpable pulsatile abdominal masses, no auscultated abdominal bruit : No CVAT Extremities: No edema Neuro: Normal speech, no obvious facial drooping, moves all 4 extremities Skin: No rash or lesions noted Psych: Appears to be responding to internal stimuli, goal-directed thought process, not tangential, normal affect MEDICAL DECISION MAKING: Chief Complaint: Suicidal ideation External records reviewed: Reviewed prior ED visits, reviewed allergies, problem list, current medication list Factors affecting care: IBS, MONIQUE, COPD, schizophrenia, pulmonary embolism on Eliquis Social determinants of health: History mental health disorder History obtained from others: none Consults: Behavioral social work MDM Narrative: Patient was hemodynamically stable, afebrile and nontoxic-appearing. Exam without focal cardiopulmonary normalities, no focal neurologic deficits. Medical clearance labs were obtained The patient did not appear to be a threat to himself or did not require a one-to-one sitter initially. Erskine slip was signed given his report of suicidal ideation he was monitored closely. Patient was medically cleared. Behavioral health evaluate the patient agreed with admission. The patient and/or family, caregivers express understanding. The patient and/or family, caregivers agrees with the plan. Shared decision making: I will have a discussion with the patient and or visitors regarding risk/benefits of further testing or admission. They will be made aware of of the risk/benefits inherent in this decision they will be given the opportunity to voice understanding. Total critical care time today provided was at least 0 minutes. This excludes separately billable procedures. Critical care time (if documented) is secondary to the patient having high probability of clinically significant/life threatening deterioration in the patient's condition which required my urgent intervention. Impression: 1. Suicide ideation 2. History of schizophrenia Dispo: Awaiting transfer to inpatient [facility] institution. This note was generated with Exabeam dictation software. It may contain incorrect words, spelling, and punctuation that were not noted in review of the chart prior to signing. Lab Data Labs: Laboratory Results - last 24 hr 01/10/24 01/10/24 18:39 19:40 WBC 9.3 RBC 3.96 L Hgb 10.1 L Hct 32.3 L MCV 81.6 MCH 25.5 L MCHC 31.3 L RDW Std Deviation 54.8 H RDW Coeff of Tad 18.6 H Plt Count 282 MPV 9.8 Immature Gran % (Auto) 1.500 H Neut % (Auto) 84.9 H Lymph % (Auto) 8.9 L [place] % (Auto) 4.5 Eos % (Auto) 0.0 Baso % (Auto) 0.2 Absolute Neuts (auto) 7.9 H Absolute Lymphs (auto) 0.83 Nucleated RBC % 0 Sodium 139 Potassium 4.0 Chloride 110 H Carbon Dioxide 23.0 Anion Gap 7 BUN 14 Creatinine 1.33 H Estim Creat Clear Calc 52.67 Est GFR (MDRD) Af Amer 67 Est GFR (MDRD) Non-Af 56 L BUN/Creatinine Ratio 10.5 Glucose 154 H Calcium 8.8 Urine Opiates Screen NEGATIVE Urine Methadone Screen NEGATIVE Ur Barbiturates Screen NEGATIVE Ur Phencyclidine Scrn NEGATIVE Ur Amphetamines Screen NEGATIVE MDMA (Ecstasy) Screen NEGATIVE U Benzodiazepines Scrn NEGATIVE Urine Cocaine Screen NEGATIVE U Cannabinoids Screen POSITIVE H Ur Drug Screen Comment Ethyl Alcohol < 3.0 Discharge Plan Triage Chief Complaint: Mental Health ED Provider: Nolan Segundo Dx/Rx/DC Orders Prescriptions: No Action icosapent ethyl [Vascepa] 1 gram capsule 2 g PO BID baclofen 10 mg tablet 10 mg PO TID PRN PRN (Reason: PAIN) olanzapine [Zyprexa] 10 mg tablet 10 mg PO QHS donepezil 10 mg tablet 10 mg PO DAILY lamotrigine [Lamictal] 200 mg tablet 200 mg PO DAILY Breztri Aerosphere 160-9-4.8 mcg/actuation HFA aerosol inhaler 2 inh inhalation BID Qty: 10.7 11RF budesonide 3 mg capsule,delayed,extend.release 9 mg PO QDAY losartan 50 mg tablet 50 mg PO BID trazodone 50 mg tablet 50 - 150 mg PO QHS PRN mirtazapine 30 mg tablet 30 mg PO QHS loratadine 10 mg tablet 10 mg PO QDAY aripiprazole 10 mg tablet 10 mg PO QDAY fenofibrate 54 mg tablet 54 mg PO QDAY fexofenadine [Jeaneth Allergy] 180 mg tablet 180 mg PO QDAY omeprazole 40 mg capsule,delayed release(DR/EC) 40 mg PO BID 30 Days Qty: 60 0RF ropinirole 0.5 MG tablet 0.5 mg PO QHS tamsulosin 0.4 MG capsule,extended release 24hr 0.4 mg PO QHS dicyclomine 20 mg tablet 20 mg PO TID potassium chloride 20 mEq tablet,ER particles/crystals 20 meq PO DAILY ondansetron 4 mg tablet,disintegrating 4 mg PO TID PRN (Reason: NAUSEA ) mesalamine 0.375 gram capsule,extended release 24hr 1.5 g PO BID Patient Comments: PT UNAWARE OF DOSAGE OR FREQ albuterol sulfate 2.5 mg /3 mL (0.083 %) solution for nebulization 2.5 mg INHALATION Q8H PRN (Reason: shortness of breath or wheezing) albuterol sulfate 90 mcg/actuation HFA aerosol inhaler 2 puff INHALATION Q6H PRN (Reason: Shortness Of Breath) ferrous sulfate 325 mg (65 mg iron) tablet 325 mg PO DAILY furosemide [Lasix] 20 mg tablet 20 mg PO DAILY acetaminophen 500 mg Tablet 1,000 mg PO Q8 Qty: 0 0RF oxycodone-acetaminophen 5-325 mg tablet 1 tab PO Q6H PRN PRN (Reason: Pain) 3 Days Qty: 12 0RF prednisone 20 mg tablet 40 mg PO DAILY 5 Days Qty: 10 0RF clopidogrel 75 mg tablet 75 mg PO DAILY Qty: 30 11RF nitroglycerin [Nitrostat] 0.4 mg tablet, sublingual 0.4 mg sublingual Q5-15M PRN (Reason: chest pain) Qty: 25 3RF Rx Instructions: do not exceed 3 doses per episode atorvastatin 40 mg tablet 40 mg PO QHS Qty: 90 3RF Eliquis 5 mg tablet 5 mg PO BID Qty: 60 2RF famotidine 20 mg tablet 20 mg PO BID 90 Days Qty: 180 1RF Primary Care Provider: Eliel Mosley Referrals: Eliel Mosley, DIFFUSION OPERATOR-C [Primary Care Provider] - Print Language: Yi
--- NOTE | 2024-01-10 19:00 | EKG12_ITS ---
Test Reason : ANXIETY/MENTAL HEALTH Blood Pressure : / mmHG Vent. Rate : 083 BPM Atrial Rate : 083 BPM P-R Int : 158 ms QRS Dur : 070 ms QT Int : 374 ms P-R-T Axes : 048 007 033 degrees QTc Int : 439 ms Normal sinus rhythm Normal ECG Confirmed by CLARA STEVENSON, MIGUELITO ([id number]), content editor SAMMY PRADO ([id number]) on 01/12/2024 9:38:37 AM Referred By: MICHAEL Confirmed By:MIGUELITO ELIZABETH MD
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
[2024-01-10 19:17] LABS: Absolute Lymphocyte Count 0.83 X10^3/uL (0.83-4.51); Absolute Neutrophil Count 7.9 X10^3/uL (2.0-7.7); Basophil# 0.02 X10^3/uL; Basophil% 0.2 % (0-1); Hematocrit 32.3 % (40-54); Hemoglobin 10.1 g/dL (13.0-16.5); Lymphocyte # 0.83 X10^3/ul (0.83-4.51); Lymphocyte % 8.9 % (19-41); Mean Corp Hgb Conc 31.3 g/dL (32-36); Mean Corpuscular Hgb 25.5 pg (27.0-32.0); Mean Corpuscular Volume 81.6 fL (80-94); Mean Platelet Vol. 9.8 fl (6.2-12.0); Monocyte# 0.42 X10^3/uL; Monocyte% 4.5 % (0-10); NRBC Flagged by Analyzer 0 % (0-5); Neutrophil # 7.87 X10^3/uL (2.7-7.7); Neutrophil % 84.9 % (47-70); Platelet Count 282 K/mm3 (150-450); RBC Distribution Width CV 18.6 % (11.6-14.6); RBC Distribution Width SD 54.8 fl (35.1-43.9); Red Blood Count 3.96 M/mm3 (4.6-6.2); White Blood Count 9.3 K/mm3 (4.4-11.0)
[2024-01-10 19:25] LABS: Alcohol, Blood (Medical)-Serum < 3.0 mg/dL
[2024-01-10 19:26] LABS: Anion Gap 7 (5-15); BUN 14 mg/dL (7-18); BUN/Creat Ratio 10.5 RATIO (10-20); Calcium,Total 8.8 mg/dL (8.5-10.1); Chloride 110 mmol/L (98-107); Creatinine, Serum 1.33 mg/dL (0.70-1.30); EST Glomerular Filtration Rate 56 mL/min (>60); Est Glom Filt Rate - Afr Amer 67 mL/min (>60); Estimated Creatinine Clearance 52.67 ml/min; Glucose 154 mg/dL (74-106); Sodium Level 139 mmol/L (136-145)
[2024-01-10 20:16] LABS: Amphetamine Urine VISTA NEGATIVE (<1000 ng/mL); Barbiturate Urine VISTA NEGATIVE (< 200 ng/mL); Benzodiazepine Urine VISTA NEGATIVE (< 200 ng/mL); Cocaine Urine VISTA NEGATIVE (< 300 ng/mL); Ecstacy Urine VISTA NEGATIVE (< 500 ng/mL); Methadone Urine VISTA NEGATIVE (< 300 ng/mL); PCP Urine VISTA NEGATIVE (< 25 ng/mL); THC Urine VISTA POSITIVE (< 50 ng/mL); Vista UDS pH Range 6
--- NOTE | 2024-01-10 20:56 | CM.ED ---
Social Work: forensic social worker attempted to update patient a few different times regarding update on placement however patient has been sleeping. Flux Core Welder didn't wake patient. [facility] has an opening. forensic social worker faxing over referral packet to see if they will accept. Lizbet Tucker, BODY RECALL INSTRUCTOR, CONDOMINIUM PROPERTY MANAGER
[2024-01-10 21:06] VITALS: BP 128/74; PULSE 72; RESP 16; O2SAT 97
--- NOTE | 2024-01-10 21:45 | CM.ED ---
Social Work: automotive worker updated patient on search for placements. Patient stated he was doing ok at the moment and denied a current need for anything. Lizbet Tucker, DIGITAL ASSET SPECIALIST, DIRECTOR OF COMMUNITY EDUCATION
[2024-01-10 21:59] VITALS: BP 130/72; PULSE 70; RESP 16; O2SAT 98
--- NOTE | 2024-01-10 22:02 | CM.ED ---
Social Work: [employer] Home Economics Teacher made phone contact with Blane at [facility] and faxed over placement packet for them to continue working on placement through the night. Lizbet Tucker, SENIOR CASE MANAGER, AIR TUBE RELEASER
[2024-01-10 23:00] VITALS: BP 132/69; PULSE 70; RESP 16; O2SAT 98
[2024-01-11 00:56] LABS: Bacteria 0 SEEN /hpf (None Seen); Mucous, Urine 0 SEEN /hpf (<or=2+); Red Blood Cells-Urine 0 SEEN /hpf (0-5); Squamous Epithelial Cells - UA 0 SEEN /hpf (0-5); White Blood Cells 0 SEEN /hpf (0-5)
--- NOTE | 2024-01-11 01:00 | RAD_ITS ---
STUDY: X-RAY CHEST REASON FOR EXAM: Male, 73 years old patient presents for psych placement TECHNIQUE: Single AP portable view of the chest. COMPARISON: CT of the chest dated October 28, 2023. FINDINGS: There is hyperinflation of the lungs consistent with chronic obstructive lung disease (COPD). There is no demonstrated pleural abnormality. Normal size heart. Normal mediastinum and bessy. Normal visualized pulmonary arteries. Normal visualized aortic arch and descending thoracic aorta. Normal visualized thoracic spine. The patient has had right-sided shoulder arthroplasty and previous cervical spine surgery. There is no demonstrated abnormality of the visualized soft tissue structures of the upper abdomen. RAD/Chest 1 View (Portable) IMPRESSION: No radiographic evidence of acute cardiopulmonary disease. Electronically Signed: Moira Rudolph MD at 1:22 EDT ,
[2024-01-11 01:06] LABS: Color, Urine Yellow (Yellow); Glucose, Dipstick Normal (Normal); Ketone-Dipstick Negative (Negative); Leukocyte Esterase-Dipstick Negative /ul (Negative); Nitrite-Dipstick Negative (Negative); Occult Blood-Urine Negative /ul (Negative); Protein-Dipstick Negative (Negative); Specific Gravity, Urine 1.015 (1.002-1.030); Urine Bilirubin Dipstick Negative (Negative); Urine Clarity Clear (Clear); Urine Urobilinogen Normal (Normal); Urine pH 6.5 (5.0 - 8.0)
[2024-01-11 07:00] VITALS: BP 126/72; PULSE 68; RESP 16; O2SAT 97
--- NOTE | 2024-01-11 08:23 | NURSING ---
ACCEPTED AT [facility] GERIATRIC UNIT, ROOM 306B INEZ STERN NURSE TO NURSE [phone]
--- NOTE | 2024-01-11 08:47 | ED.RN ---
ATTEMPTED TO CALL DAUGHTER ABOUT HOME MEDS AND INFORMATION REGARDING CPAP. UNABLE TO REACH, VOICEMAIL AND CALL BACK NUMBER LEFT
[2024-01-11 08:53] VITALS: BP 126/78; PULSE 68; RESP 19; TEMP 36.8; O2SAT 97
--- NOTE | 2024-01-11 08:53 | NURSING ---
CALLED [facility], ETA IS [phone]
--- NOTE | 2024-01-11 08:53 | ED.RN ---
ATTEMPTED TO CALL REPORT TO [facility], NURSE TO CALL BACK WHEN NOT BUSY
--- NOTE | 2024-01-11 09:43 | ED.RN ---
REPORT GIVEN TO MYNOR LANDRY AT [facility]
== END 2024-01-11 09:44 ==
LOC: ED 19:39
PROVIDERS: Emergency Provider Emergency Medicine; PCP Nurse Practitioner Family; Visit Provider Emergency Medicine
DX: R45.851 Suicidal ideations (principal); M06.9 Rheumatoid arthritis, unspecified; I11.0 Hypertensive heart disease with heart failure; I50.9 Heart failure, unspecified; F03.93 Unspecified dementia, unspecified severity, with mood disturbance; F03.92 Unspecified dementia, unspecified severity, with psychotic disturbance; F03.94 Unspecified dementia, unspecified severity, with anxiety; J44.9 Chronic obstructive pulmonary disease, unspecified; E11.9 Type 2 diabetes mellitus without complications; G89.29 Other chronic pain; I25.2 Old myocardial infarction; I25.10 Atherosclerotic heart disease of native coronary artery without angina pectoris; E78.00 Pure hypercholesterolemia, unspecified; K21.9 Gastro-esophageal reflux disease without esophagitis; K58.9 Irritable bowel syndrome, unspecified; N40.0 Benign prostatic hyperplasia without lower urinary tract symptoms; M17.0 Bilateral primary osteoarthritis of knee; M19.011 Primary osteoarthritis, right shoulder; M47.22 Other spondylosis with radiculopathy, cervical region; M51.26 Other intervertebral disc displacement, lumbar region; G47.33 Obstructive sleep apnea (adult) (pediatric); G25.81 Restless legs syndrome; Z88.0 Allergy status to penicillin; Z95.5 Presence of coronary angioplasty implant and graft; Z87.11 Personal history of peptic ulcer disease; Z79.02 Long term (current) use of antithrombotics/antiplatelets; Z79.01 Long term (current) use of anticoagulants; Z90.49 Acquired absence of other specified parts of digestive tract; Z86.711 Personal history of pulmonary embolism; Z79.899 Other long term (current) drug therapy; Z96.611 Presence of right artificial shoulder joint; Z87.891 Personal history of nicotine dependence; Z91.148 Patient's other noncompliance with medication regimen for other reason
CPT/HCPCS: 71045; 80048; 80307; 81001; 82077; 85025; 87633; 87635; 93005; 99285

== ENCOUNTER → 2024-02-25 | Outpatient (CLI) | payer MEDICARE, MEDICAID, SELFPAY ==
[2023-09-09 09:43] VITALS: BMI 21.8
--- NOTE | 2024-02-25 16:15 | STRESSREP ---
Stress Test Report Pharmacologic myocardial perfusion stress test. 73-year-old male with for preoperative evaluation for knee surgery Resting EKG demonstrates sinus rhythm with a rate of 60 bpm. Resting blood pressure is 132/78 mmHg. 0.4 mg of regadenoson was infused per usual protocol followed by rapid intravenous saline flush injection. Continuous EKG monitoring was performed. The maximum heart rate was 95 bpm which was 65% of max impacted heart rate the maximum workload was 1 metabolic equivalent. At rest there were no ST or T wave changes noted to suggest ischemia and at peak infusion nonspecific ST changes were noted which did not meet the criteria for ischemia. No clinical angina is noted. The final blood pressure was 140/70 mmHg. Myocardial perfusion protocol. 14.4 mCi of technetium 99m sestamibi was injected at rest. 0.4 mg of regadenoson was infused per usual protocol. At peak infusion 44.4 mCi of technetium 99m sestamibi was injected stress images were obtained stress and rest images were reconstructed and compared in the short axis vertical long and horizontal long axis. Gated images were also obtained. Perfusion SPECT analysis: Review of the stress images demonstrate normal uptake of tracer noted in all areas of the myocardium. The resting images similar demonstrated normal uptake of tracer noted in all areas of the myocardium. No areas of reversibility are noted to suggest ischemia and no previous infarct is noted. Gated SPECT analysis: The gated ejection fraction is 64%. Conclusion: Normal pharmacologic myocardial perfusion stress test. Preserved ejection fraction.
== END | disposition home or self-care (01) ==
LOC: CVS 06:34
PROVIDERS: PCP Nurse Practitioner Family; Referring Provider Nurse Practitioner Family; Visit Provider Nurse Practitioner Family
DX: I10 Essential (primary) hypertension (principal); Z95.5 Presence of coronary angioplasty implant and graft; E78.5 Hyperlipidemia, unspecified
CPT/HCPCS: 78452; 93017; A9500; A4216

== ENCOUNTER 2024-03-02 10:30 | Outpatient (RCR) | payer MEDICARE, MEDICAID, SELFPAY ==
[2023-09-09 09:43] VITALS: BMI 21.8
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
== END 2024-03-02 19:00 | disposition home or self-care (01) ==
LOC: PT 10:30
PROVIDERS: PCP Nurse Practitioner Family; Referring Provider Orthopaedic Surgery Sports Medicine; Visit Provider Orthopaedic Surgery Sports Medicine
DX: Z96.611 Presence of right artificial shoulder joint (principal)
CPT/HCPCS: 97110; 97140; 97161

== ENCOUNTER 2024-03-06 11:16 | Inpatient (IN) | payer MEDICARE, MEDICAID, SELFPAY ==
[2023-09-09 09:43] VITALS: BMI 21.8
[2024-03-06 11:17] VITALS: BP 157/91; PULSE 116; RESP 18; TEMP 35.9; O2SAT 99
[2024-03-06 11:19] VITALS: BMI 23.7
--- NOTE | 2024-03-06 11:28 | EKG12_ITS ---
Test Reason : GENERAL Blood Pressure : */* mmHG Vent. Rate : 84 BPM Atrial Rate : 84 BPM P-R Int : 158 ms QRS Dur : 76 ms QT Int : 386 ms P-R-T Axes : 42 18 52 degrees QTcB Int : 456 ms Normal sinus rhythm Nonspecific ST and T wave abnormality Abnormal ECG Confirmed by CLARA STEVENSON, MIGUELITO ([id number]), assistant editor GRACIELA BARBOZA ([id number]) on 03/08/2024 7:02:57 AM Referred By: Confirmed By: MIGUELITO ELIZABETH MD
--- NOTE | 2024-03-06 11:30 | CT_ITS ---
STUDY: CT CERVICAL SPINE WITHOUT CONTRAST REASON FOR EXAM: Male, 73 years old. fall RADIATION DOSAGE (If Supplied By Facility): CTDIvol = ( 22.86 ) mGy, DLP = ( 518.05 ) mGycm TECHNIQUE: High resolution transaxial imaging was performed without contrast material. Sagittal and coronal images were reconstructed. Individualized dose optimization techniques were used for this CT. COMPARISON: CT of the cervical spine dated March 12, 2024 FINDINGS: Normal craniovertebral junction. Normal anterior atlantoaxial articulation. Normal odontoid process. Normal cervical lordosis. Anterior cortical plate screw construct and graft are present from C4 down to C7. No visualized acute fractures. No demonstrated jumped facets. No demonstrated compression deformities. Multilevel degenerative changes are present. Normal visualized soft tissue structures. CT/Spine Cervical without Contras IMPRESSION: Multilevel degenerative changes, as described above. Electronically Signed: Alex Rhodes MD at 15:50 EST ,
--- NOTE | 2024-03-06 11:30 | CT_ITS ---
STUDY: CT BRAIN WITHOUT CONTRAST REASON FOR EXAM: Male, 73 years old. Patient states he was trying to clean his house when he fell. Pay states he did have loss of consciousness. He did strike his head. RADIATION DOSAGE (If Supplied By Facility): CTDIvol = ( 44.99 ) mGy, DLP = ( 779.24 ) mGycm TECHNIQUE: Transaxial CT imaging of the brain was performed without administration of intravenous contrast material. Individualized dose optimization techniques were used for this CT. COMPARISON: Head CT dated October 28, 2023 FINDINGS: No demonstrated skull fracture or pneumocephalus or subdural hemorrhage. No extra-axial fluid collection is present. Normal soft tissue structures. Normal calvarium. There is moderate cerebral atrophy with widening of the extra-axial spaces and ventricular dilatation. There are areas of decreased attenuation within the white matter tracts of the supratentorial brain, consistent with microvascular disease changes. Normal basal ganglia and thalami. Normal brainstem. Normal cerebellum. There is no intracranial hemorrhage. There are no findings of an acute ischemic infarction. Normal visualized paranasal sinuses. CT/Brain/Head without Contrast IMPRESSION: Chronic involutional changes of the brain. Electronically Signed: Alex Rhodes MD at 15:33 EST ,
--- NOTE | 2024-03-06 11:30 | CT_ITS ---
STUDY: CT CHEST, ABDOMEN T PELVIS WITH CONTRAST REASON FOR EXAM: Male, 73 years old. fall RADIATION DOSAGE (If Supplied By Facility): CTDIvol = ( 20.59 ) mGy, DLP = ( 1968.03 ) mGycm TECHNIQUE: Transaxial imaging was performed following intravenous administration of [id number] 100ML. The protocol utilizes one or more of the following dose reduction techniques: automated exposure control, adjustment of mA and/or kV according to patient size,and/or use of iterative reconstruction technique. COMPARISON: FINDINGS: CHEST Cystic emphysematous changes with hyperinflation. No consolidation or pneumothorax or pleural effusion or pulmonary edema is present. No mediastinal hematoma or sternal fracture.. There is no demonstrated pleural abnormality. Normal heart and pericardium. There are calcifications of the coronary arteries. Normal mediastinum. Normal hilar regions. Normal unenhanced pulmonary arteries. There is atherosclerotic calcification of the aortic arch with tortuosity and elongation of the aortic arch and descending thoracic aorta. There are multi-level degenerative changes of the thoracic spine. Right shoulder prosthesis noted. No large displaced rib fractures visualized. ABDOMEN No demonstrated acute traumatic injury of the solid organs or bowel. No free air or free fluid or hemorrhage is present. No acute fracture of the pelvic bony structures or bilateral hips. Normal liver. Normal gallbladder and extrahepatic biliary system. Normal spleen. Normal pancreas. Normal bilateral adrenal glands. Small nonenhancing cyst of the right kidney which does not requiring additional imaging or follow-up. No renal masses or hydronephrosis.. Normal left kidney. Normal visualized stomach. Normal small intestine. Normal colon. The appendix is visualized and appears normal. There is diffuse atherosclerotic calcification of the abdominal aorta, without a demonstrated aneurysm. Normal inferior vena cava. Normal retroperitoneum. Normal abdominal wall. There are diffuse degenerative changes of the visualized lumbar spine. PELVIS Normal urinary bladder. Normal visualized small intestine. Normal visualized colon. There is no pelvic fluid. There is no pelvic lymphadenopathy or mass lesion. Mildly enlarged heterogeneous prostate gland without an obvious mass. There is diffuse atherosclerotic calcification of the pelvic arteries. Normal abdominal wall. There are diffuse degenerative changes of the visualized lumbar spine. CT/CT Chest, Abd, Pel w/Contrast IMPRESSION: 1. CT of the chest: No consolidation or pleural effusion or pneumothorax 2. Abdomen and pelvis: No acute traumatic process of the organs or bowel loops 3. No acute pelvic or hip fractures Electronically Signed: Alex Rhodes MD at 15:41 EST ,
--- NOTE | 2024-03-06 11:31 | EX.ED.DYSGE1 ---
HPI <GAURAV Chicas - Last Filed: 03/06/24 16:09> History of Present Illness Chief Complaint: Fall Narrative Narrative: Patient is a 73-year-old male who is cachectic, looks older than stated age, history of COPD, schizophrenia, pulmonary embolism on Eliquis, CAD on Plavix who presents to the emerged department for mechanical fall 2 days ago. Patient states he was trying to clean his house when he fell. Pay states he did have loss of consciousness. He did strike his head. Patient also has pain to both knees, right elbow, right shoulder, left ribs, left lower back, abdomen as well as the left hip. Patient states that he cannot live alone, patient states that he is too weak and will probably need admitted to the hospital. Patient denies any significant fever or chills PFS <GAURAV Chicas - Last Filed: 03/06/24 16:09> [facility] Medical History (Updated 03/06/24 @ 16:09 by GAURAV Chicas) Schizophrenia Primary osteoarthritis, right shoulder Severe malnutrition Adult failure to thrive Localized osteoarthritis of right knee Pulmonary embolism Ventral hernia, recurrent Rheumatoid arthritis Chronic pain Kidney disease Congestive heart failure (CHF) Complete rotator cuff tear Marijuana use Shoulder impingement SLAP tear of shoulder Acromioclavicular joint arthritis Essential hypertension (08/02/20) Chronic obstructive lung disease (08/02/20) Malaise and fatigue (08/02/20) Low back pain (03/01/11) Displacement of lumbar intervertebral disc without myelopathy (03/01/11) Brachial neuritis (05/31/11) Wears glasses Dementia Alcohol use Ambulates with cane Arthritis Prostate disease High cholesterol Back pain History of IBS Emphysema, unspecified History of stress test History of echocardiogram Osteoarthritis of left knee Bipolar disorder Diabetes GERD (gastroesophageal reflux disease) Former smoker COPD (chronic obstructive pulmonary disease) Myocardial infarct Hypertension Migraines Cervical spondylosis Cervical radiculitis Partial tear of right rotator cuff Essential (primary) hypertension Smoking greater than 40 pack years Dementia PVCs (premature ventricular contractions) Lung nodule < 6cm on CT Cannabis dependence DDD (degenerative disc disease) BPH (benign prostatic hyperplasia) Anxiety Depression Atherosclerotic heart disease of [place] coronary artery without angina pectoris Hyperlipidemia Trigger finger MONIQUE (obstructive sleep apnea) Stage 2 moderate COPD by GOLD classification Peptic ulcer disease Restless leg syndrome Schizophrenia Asthma History of pulmonary embolism Home Medications ?Medication ?Instructions ?Recorded ?Last Taken ?Type ropinirole 0.5 mg tablet 0.5 mg PO QHS RESTLESS LEGS 04/23/16 03/05/24 History tamsulosin 0.4 mg capsule 0.4 mg PO QHS PROSTATE 01/30/17 03/05/24 History baclofen 10 mg tablet 10 mg PO TID PRN PAIN 11/09/20 07/09/23 History icosapent ethyl 1 gram capsule 2 g PO BID HEART 11/09/20 03/06/24 History (Vascepa) donepezil 10 mg tablet 10 mg PO DAILY ALZHEIMERS 10/23/21 03/06/24 History lamotrigine 200 mg tablet 200 mg PO DAILY MOOD 10/23/21 03/06/24 History (Lamictal) olanzapine 10 mg tablet (Zyprexa) 10 mg PO QHS MOOD 10/23/21 03/05/24 History budesonide 160 mcg-glycopyr 9 2 inh inhalation BID COPD #10.7 01/28/23 03/06/24 Rx mcg-formot 4.8 mcg/actuation HFA grams inhaler (Breztri Aerosphere) dicyclomine 20 mg tablet 20 mg PO TID IRRITABLE BOWELS 04/15/23 03/06/24 History ondansetron 4 mg disintegrating 4 mg PO TID PRN NAUSEA 04/15/23 03/05/24 History tablet potassium chloride 20 mEq 20 meq PO DAILY SUPPLEMENT 04/15/23 03/06/24 History tablet,extended release(part/cryst) nitroglycerin 0.4 mg sublingual 0.4 mg sublingual Q5-15M PRN chest 06/16/23 Unknown Rx tablet (Nitrostat) pain #25 tabs atorvastatin 40 mg tablet 40 mg PO QHS CHOLESTEROL #90 tabs 06/24/23 03/05/24 Rx albuterol sulfate 2.5 mg/3 mL 2.5 mg inhalation Q8H PRN 07/10/23 03/06/24 History (0.083 %) solution for nebulization shortness of breath or wheezing albuterol sulfate 90 mcg/actuation 2 puff inhalation Q6H PRN 07/10/23 07/09/23 History aerosol inhaler Shortness Of Breath mesalamine 0.375 gram 1.5 g PO BID 07/10/23 03/06/24 History capsule,extended release 24 hr ferrous sulfate 325 mg (65 mg 325 mg PO DAILY 09/02/23 03/06/24 History iron) tablet furosemide 20 mg tablet (Lasix) 20 mg PO DAILY 09/02/23 03/06/24 History budesonide 3 mg 9 mg PO QDAY 10/13/23 03/06/24 History capsule,delayed,extended release aripiprazole 10 mg tablet 10 mg PO QDAY 11/19/23 03/06/24 History fenofibrate 54 mg tablet 54 mg PO DAILY 11/19/23 03/06/24 History loratadine 10 mg tablet 10 mg PO QDAY 11/19/23 03/06/24 History losartan 50 mg tablet 50 mg PO BID 11/19/23 03/06/24 History mirtazapine 30 mg tablet 30 mg PO QHS 11/19/23 03/05/24 History fexofenadine 180 mg tablet 180 mg PO QDAY 12/18/23 03/06/24 History (Jeaneth Allergy) apixaban 5 mg tablet (Eliquis) 5 mg PO BID #60 tabs 12/30/23 03/06/24 Rx famotidine 20 mg tablet 20 mg PO BID 3 months #180 tabs 12/31/23 03/06/24 Rx clopidogrel 75 mg tablet 75 mg PO DAILY BLOOD THINNER #30 01/15/24 03/06/24 Rx tabs acetaminophen 500 mg tablet 1,000 mg PO Q8 PRN pain 03/06/24 Unknown History trazodone 150 mg tablet 150 mg PO QHS 03/06/24 03/05/24 History Allergy/AdvReac Type Severity Reaction Status Date / Time Quinolones Allergy Unknown unknown Verified 03/06/24 11:19 aspirin Allergy Itching, Verified 03/06/24 11:19 Hives levofloxacin (From Levaquin) Allergy Hives, Verified 03/06/24 11:19 Itching Penicillins Allergy Hives, Verified 03/06/24 11:19 Itching Family History Mother CAD (coronary artery disease) Sister Diabetes Surgical History History of right shoulder replacement Hx of colonoscopy S/P right rotator cuff repair Hx of repair of right rotator cuff (06/04/22) H/O left knee surgery History of laparoscopic cholecystectomy History of appendectomy H/O cervical spine surgery H/O ventral hernia repair History of left heart catheterization (04/2016) History of coronary artery stent placement (10/16/18) Social History household members: none housing: house current occupational status: disabled Smoking Status: Former smoker quit date: 02/14/15 how long ago did patient quit smokin years ago second hand exposure: Yes alcohol intake: former details: Quit 9 years ago substance use type: marijuana caffeine: Yes Type: coffee what type of physical activity do you participate in: none seatbelt use: always do you feel safe at home: Yes ROS <GAURAV Chicas - Last Filed: 03/06/24 16:09> ROS ED ROS Narrative Constitutional: Negative for fever, chills, weight loss, weakness Eyes: Negative for vision loss, vision change, double vision ENT: Negative for any sore throat, ear pain, congestion Cardiovascular: Negative for any chest pain, tightness, palpitations Respiratory: Negative for any cough, sputum production, hemoptysis, dyspnea, dyspnea on exertion, orthopnea Gastrointestinal: Negative for any abdominal pain, nausea, vomiting, diarrhea, constipation, blood in stool, blood in vomit : Negative for any urinary frequency, dysuria, retention, blood in urine Muscle skeletal: Negative for any neck pain. Positive for left-sided neck pain, left hip pain, right knee pain, right elbow and shoulder pain Neurological: Negative for any syncope, dizziness. Positive for headache Skin: Negative for any rashes, itching, lacerations. Multiple abrasions, ecchymotic areas Psychiatric: Negative for any depression, anxiety, stress, suicidal ideation, homicidal ideation Hematologic: Negative for any excessive bruising, easy bleeding EXAM <GAURAV Chicas - Last Filed: 03/06/24 16:09> Physical Exam Narrative Exam Narrative: Vital signs reviewed. Patient is alert and orient x 4. Patient does have a strong smell of body odor, he does appear to be disheveled, unkempt. HEET: Head normocephalic atraumatic, TMs clear bilaterally. Posterior pharynx is clear, dry mucous membranes. Nares clear bilaterally. Pupils are equal round reactive to light, negative for any hemotympanum or septal hematoma. Neck: Supple with no lymphadenopathy or tenderness. No signs of meningismus. Cardiac: Regular rate and rhythm no murmurs gallops or rubs, equal peripheral pulses bilaterally. Respiratory: Lungs clear to auscultation bilaterally. No chest tenderness. Abdomen: Soft, nondistended. No abdominal bruit or pulsatile masses. No hepatosplenomegaly. Tenderness to left upper, left mid abdomen. No ecchymosis. Extremities: Patient has worsening pain to the left knee, there is some more ecchymosis. Right knee has a abrasion however full range of motion. Patient has pain of the right elbow, right shoulder. Neuro: Cranial nerves II through XII intact, no focal neurological deficits. Skin: Clean dry and intact with no rash, purpura, petechiae, vesicles or pustules. Backs/flank: No CVA tenderness, no midline spinal tenderness, no deformity. Patient does have pain just below the left CVA area, this is just above the left lumbar spine, pain on palpation. Psych: Normal mood and affect. No SI, HI or acute psychosis. Const Vital Signs: 03/06/24 11:17 03/06/24 12:05 03/06/24 14:02 Temperature 96.7 F L Temperature Source Temporal Pulse Rate 116 H 79 Respiratory Rate 18 15 Respiratory Effort Normal Non-Labored Respiratory Depth Normal Respiratory Pattern Normal Blood Pressure 157/91 H 118/70 Blood Pressure Mean 113 86 Pulse Ox 99 98 Oxygen Delivery Method Room Air Room Air Room Air 03/06/24 14:02 03/06/24 16:00 Temperature 97.6 F L Temperature Source Pulse Rate 79 73 Respiratory Rate 15 16 Respiratory Effort Respiratory Depth Respiratory Pattern Blood Pressure 118/70 114/74 Blood Pressure Mean 86 87 Pulse Ox 98 Oxygen Delivery Method Positive cachectic and unkempt General Appearance ED: unkempt and cachectic Nutritional Appearance: cachectic Psych Appearance: unkempt <Thompson Villa MD - Last Filed: 03/06/24 16:41> Physical Exam Const Vital Signs: 03/06/24 11:17 03/06/24 12:05 03/06/24 14:02 Temperature 96.7 F L Temperature Source Temporal Pulse Rate 116 H 79 Respiratory Rate 18 15 Respiratory Effort Normal Non-Labored Respiratory Depth Normal Respiratory Pattern Normal Blood Pressure 157/91 H 118/70 Blood Pressure Mean 113 86 Pulse Ox 99 98 Oxygen Delivery Method Room Air Room Air Room Air 03/06/24 14:02 03/06/24 16:00 Temperature 97.6 F L Temperature Source Pulse Rate 79 73 Respiratory Rate 15 16 Respiratory Effort Respiratory Depth Respiratory Pattern Blood Pressure 118/70 114/74 Blood Pressure Mean 86 87 Pulse Ox 98 Oxygen Delivery Method RAMBO <GAURAV Chicas - Last Filed: 03/06/24 16:09> [facility] Lab Data Labs: Laboratory Results - last 24 hr 03/06/24 03/06/24 12:34 13:07 WBC 7.1 RBC 3.77 L Hgb 10.0 L Hct 31.8 L MCV 84.4 MCH 26.5 L MCHC 31.4 L RDW Std Deviation 48.1 H RDW Coeff of Tad 15.7 H Plt Count 246 MPV 9.7 Immature Gran % (Auto) 1.000 H Neut % (Auto) 62.7 Lymph % (Auto) 24.6 [place] % (Auto) 10.1 H Eos % (Auto) 1.0 Baso % (Auto) 0.6 Absolute Neuts (auto) 4.4 Absolute Lymphs (auto) 1.74 Nucleated RBC % 0 Sodium 143 Potassium 3.4 L Chloride 114 H Carbon Dioxide 23.0 Anion Gap 6 BUN 30 H Creatinine 1.65 H Estim Creat Clear Calc 42.46 Est GFR (MDRD) Af Amer 52 L Est GFR (MDRD) Non-Af 43 L BUN/Creatinine Ratio 18.2 Glucose 100 Calcium 8.7 Total Bilirubin 0.40 AST 12 L ALT 27 Alkaline Phosphatase 104 Total Protein 6.0 L Albumin 3.3 Globulin 2.7 Albumin/Globulin Ratio 1.2 Urine Color Yellow Urine Clarity Clear Urine pH 5.0 Ur Specific [place] 1.025 Urine Protein Negative Urine Glucose (UA) Normal Urine Ketones Negative Urine Occult Blood Negative Urine Nitrite Negative Urine Bilirubin Negative Urine Urobilinogen Normal Ur Leukocyte Esterase Negative Urine RBC 0 SEEN Urine WBC 0-5 SEEN Ur Squamous Epith Cells 0-5 SEEN Urine Bacteria 1+ Hyaline Casts 5-10 SEEN Urine Mucus 2+ Ur Drug Screen Comment Radiography Diagnostic Testing: Clinical Impression(s) from Imaging Studies Brain CT 03/06/24 11:30 IMPRESSION: Chronic involutional changes of the brain. Electronically Signed: Alex Rhodes MD at 15:33 EST , Cervical Spine CT 03/06/24 11:30 IMPRESSION: Multilevel degenerative changes, as described above. Electronically Signed: Alex Rhodes MD at 15:50 EST Reading Location ID and State: [facility] / [place] , Service support , Chest/Abdomen/Pelvis CT 03/06/24 11:30 IMPRESSION: 1. CT of the chest: No consolidation or pleural effusion or pneumothorax 2. Abdomen and pelvis: No acute traumatic process of the organs or bowel loops 3. No acute pelvic or hip fractures Electronically Signed: Alex Rhodes MD at 15:41 EST Reading Location ID and State: [address] [place] [address] , Service support , Elbow X-Ray 03/06/24 13:30 IMPRESSION: Normal x-ray examination of the elbow. Electronically Signed: Alex Rhodes MD at 16:02 EST Reading Location ID and State: [facility] / [place] , Service support , Knee X-Ray 03/06/24 13:30 IMPRESSION: No acute process. Electronically Signed: Alex Rhodes MD at 16:02 EST , Shoulder X-Ray 03/06/24 13:30 IMPRESSION: No acute process Electronically Signed: Alex Rhoeds MD at 16:01 EST Reading Location ID and State: [facility] / [place] , Service support , EKG Normal sinus rhythm: Attestation: I personally reviewed and interpreted this EKG as follows: Interpretation: Sinus Rhythm Comments: Normal sinus rhythm, nonspecific ST, T wave abnormality, rate of 84 bpm, SD interval 158 ms, QRS duration 76 ms, no acute ST elevation, no acute infarct noted. Treatment and Re-Evaluation :: Differential diagnosis includes however is not limited to: Internal injury, splenic laceration, internal bleeding, concussion, cervical strain, shoulder fracture, shoulder strain, elbow fracture, elbow strain, electrolyte abnormality, UTI, failure to thrive, compression fracture Patient appears generally well, vital signs are stable, patient is nontoxic-appearing. Presenting to the emergency department for complaints of weakness, a fall 2 days ago with possible loss of consciousness. Patient will receive a CT scan of the brain cervical spine as well as chest abdomen pelvis. Patient does have some ecchymotic areas on his soft tissue of his flank area some pain in his abdomen on palpitations. Patient has pain to the left hip. X-rays of the right shoulder right elbow as well as the left knee will be obtained. I spoke with the patient, he does not feel safe going back home. Patient will likely need to be admitted for placement. All radiologic examinations were read, reviewed by the emergency department attending. From these reads, a plan of care will be put in place. Patient given oral Tylenol, as well as basic laboratory values. Patient CBC shows a hemoglobin of 10 which is chronic. Chemistries show creatinine 1.65, this is slightly elevated however patient has been 1.6 previously. Patient's x-rays of the elbow knee and shoulder show no acute process. CT scan of the brain shows no no acute pathology, chronic changes. Cervical spine shows degenerative changes, no fracture. CT scan of the chest abdomen pelvis was negative for any acute fracture. At this time, patient does live alone, is anticoagulate, and has had multiple falls. Patient will need to be admitted to the hospital for adult failure to thrive as well as possible placement. I spoke with the patient regarding this, he is agreeable. I spoke with the hospitalist who is agreeable. Patient stable for admission. <Thompson Villa MD - Last Filed: 03/06/24 16:41> [facility] Narrative Medical decision making narrative: Dr. Villa: I have personally performed a face to face assessment of the patient and have reviewed the LOPEZ Note. I performed a substantive portion of the visit including all aspects of the following. My stratton findings include: History is frequent falls, states fell 3 times within 10 minutes. History of chronic left knee pain, supposed to have replacement by orthopedics next month. Generalized weakness, frequent falls, lives alone. Exam is GCS 15. ABCs intact. Positive ecchymosis left chest and left knee, tender to palpation, no crepitance. Cardiovascular examination regular rate and rhythm. Lungs clear to auscultation bilaterally. Abdomen soft and nontender with normoactive bowel sounds. Neurological examination nonfocal and nonlateralizing. Medical Decision Making: Check labs, check CT, check x-rays. X-rays of the elbow, left knee, and shoulder obtained and interpreted by myself independently show no evidence of fracture or dislocation of the joints. I reviewed the radiology reports which confirmed my independent interpretation. I reviewed the radiology reports of the CT of the brain, chest, and abdomen and pelvis as well and there is no acute process noted. Given his generalized weakness and inability to perform ADLs with frequent falls, disposition is admitted in stable condition. Other additions or changes: [None] History & Record Review Discussion w/independent historian: Patient Lab Data Attestation: I reviewed the patient's lab results. Labs: Laboratory Results - last 24 hr 03/06/24 03/06/24 12:34 13:07 WBC 7.1 RBC 3.77 L Hgb 10.0 L Hct 31.8 L MCV 84.4 MCH 26.5 L MCHC 31.4 L RDW Std Deviation 48.1 H RDW Coeff of Tad 15.7 H Plt Count 246 MPV 9.7 Immature Gran % (Auto) 1.000 H Neut % (Auto) 62.7 Lymph % (Auto) 24.6 [place] % (Auto) 10.1 H Eos % (Auto) 1.0 Baso % (Auto) 0.6 Absolute Neuts (auto) 4.4 Absolute Lymphs (auto) 1.74 Nucleated RBC % 0 Sodium 143 Potassium 3.4 L Chloride 114 H Carbon Dioxide 23.0 Anion Gap 6 BUN 30 H Creatinine 1.65 H Estim Creat Clear Calc 42.46 Est GFR (MDRD) Af Amer 52 L Est GFR (MDRD) Non-Af 43 L BUN/Creatinine Ratio 18.2 Glucose 100 Calcium 8.7 Total Bilirubin 0.40 AST 12 L ALT 27 Alkaline Phosphatase 104 Total Protein 6.0 L Albumin 3.3 Globulin 2.7 Albumin/Globulin Ratio 1.2 Urine Color Yellow Urine Clarity Clear Urine pH 5.0 Ur Specific [place] 1.025 Urine Protein Negative Urine Glucose (UA) Normal Urine Ketones Negative Urine Occult Blood Negative Urine Nitrite Negative Urine Bilirubin Negative Urine Urobilinogen Normal Ur Leukocyte Esterase Negative Urine RBC 0 SEEN Urine WBC 0-5 SEEN Ur Squamous Epith Cells 0-5 SEEN Urine Bacteria 1+ Hyaline Casts 5-10 SEEN Urine Mucus 2+ Ur Drug Screen Comment Radiography Diagnostic Testing: Clinical Impression(s) from Imaging Studies Brain CT 03/06/24 11:30 IMPRESSION: Chronic involutional changes of the brain. Electronically Signed: Alex Rhodes MD at 15:33 EST Reading Location ID and State: [address] [place] [address] , Service support , Cervical Spine CT 03/06/24 11:30 IMPRESSION: Multilevel degenerative changes, as described above. Electronically Signed: Alex Rhodes MD at 15:50 EST Reading Location ID and State: [facility] / [place] , Service support , Chest/Abdomen/Pelvis CT 03/06/24 11:30 IMPRESSION: 1. CT of the chest: No consolidation or pleural effusion or pneumothorax 2. Abdomen and pelvis: No acute traumatic process of the organs or bowel loops 3. No acute pelvic or hip fractures Electronically Signed: Alex Rhodes MD at 15:41 EST Reading Location ID and State: [facility] / [place] , Service support , Elbow X-Ray 03/06/24 13:30 IMPRESSION: Normal x-ray examination of the elbow. Electronically Signed: Alex Rhodes MD at 16:02 EST Reading Location ID and State: [facility] / [place] , Service support , Knee X-Ray 03/06/24 13:30 IMPRESSION: No acute process. Electronically Signed: Alex Rhodes MD at 16:02 EST Reading Location ID and State: [facility] / [place] , Service support , Shoulder X-Ray 03/06/24 13:30 IMPRESSION: No acute process Electronically Signed: Alex Rhodes MD at 16:01 EST , Discharge Plan Dx/Rx/DC Orders Clinical Impression: Adult failure to thrive, Head injury, Multiple contusions, Frequent falls, HX: anticoagulation Disposition Disposition: Acute Care Hospital [facility]
[2024-03-06] MEDS: 0.9% Normal Saline (1000mL) 1,000 ML 999 ML IV (12:03)
[2024-03-06] MEDS: Acetaminophen 500 MG Tablet 1000 MG PO (12:03)
[2024-03-06 12:58] LABS: ALB/GLOB Ratio 1.2 RATIO (0.9-2.4); AST(SGOT) 12 U/L (15-37); Alanine Aminotransfer ALT/SGPT 27 U/L (16-61); Albumin, Serum 3.3 g/dL (3.2-5.0); Alkaline Phosphatase 104 U/L (45-117); Anion Gap 6 (5-15); BUN 30 mg/dL (7-18); BUN/Creat Ratio 18.2 RATIO (10-20); Calcium,Total 8.7 mg/dL (8.5-10.1); Chloride 114 mmol/L (98-107); Creatinine, Serum 1.65 mg/dL (0.70-1.30); EST Glomerular Filtration Rate 43 mL/min (>60); Est Glom Filt Rate - Afr Amer 52 mL/min (>60); Estimated Creatinine Clearance 42.46 ml/min; Globulin 2.7 g/dL (2.2-4.2); Glucose 100 mg/dL (74-106); Potassium 3.4 mmol/L (3.5-5.1); Sodium Level 143 mmol/L (136-145)
[2024-03-06 13:15] LABS: Absolute Lymphocyte Count 1.74 X10^3/uL (0.83-4.51); Absolute Neutrophil Count 4.4 X10^3/uL (2.0-7.7); Basophil# 0.04 X10^3/uL; Basophil% 0.6 % (0-1); Eosinophil# 0.07 X10^3/uL; Hematocrit 31.8 % (40-54); Lymphocyte # 1.74 X10^3/ul (0.83-4.51); Lymphocyte % 24.6 % (19-41); Mean Corp Hgb Conc 31.4 g/dL (32-36); Mean Corpuscular Hgb 26.5 pg (27.0-32.0); Mean Corpuscular Volume 84.4 fL (80-94); Mean Platelet Vol. 9.7 fl (6.2-12.0); Monocyte# 0.71 X10^3/uL; Monocyte% 10.1 % (0-10); NRBC Flagged by Analyzer 0 % (0-5); Neutrophil # 4.43 X10^3/uL (2.7-7.7); Neutrophil % 62.7 % (47-70); Platelet Count 246 K/mm3 (150-450); RBC Distribution Width CV 15.7 % (11.6-14.6); RBC Distribution Width SD 48.1 fl (35.1-43.9); Red Blood Count 3.77 M/mm3 (4.6-6.2); White Blood Count 7.1 K/mm3 (4.4-11.0)
[2024-03-06 13:16] LABS: Red Blood Cells-Urine 0 SEEN /hpf (0-5)
[2024-03-06 13:29] LABS: Color, Urine Yellow (Yellow); Glucose, Dipstick Normal (Normal); Ketone-Dipstick Negative (Negative); Leukocyte Esterase-Dipstick Negative /ul (Negative); Nitrite-Dipstick Negative (Negative); Occult Blood-Urine Negative /ul (Negative); Protein-Dipstick Negative (Negative); Specific Gravity, Urine 1.025 (1.002-1.030); Urine Bilirubin Dipstick Negative (Negative); Urine Clarity Clear (Clear); Urine Urobilinogen Normal (Normal)
--- NOTE | 2024-03-06 13:30 | RAD_ITS ---
STUDY: X-RAY - LEFT KNEE REASON FOR EXAM: Male, 73 years old. fall TECHNIQUE: 4 view(s) of the knee. COMPARISON: July 05, 2023 FINDINGS: Normal visualized distal femur. Normal visualized proximal tibia and fibula. Normal proximal tibiofibular articulation. There is no demonstrated fracture. There is severe degenerative arthrosis of the medial femorotibial compartment with severe joint space narrowing. Normal lateral femorotibial compartment. Normal patellofemoral articulation. There is no demonstrated joint effusion. Several large loose bodies are present in the posterior aspect of the knee joint. There are atherosclerotic calcifications. RAD/Knee 4 or More Views IMPRESSION: No acute process. Electronically Signed: Alex Rhodes MD at 16:02 EST ,
--- NOTE | 2024-03-06 13:30 | RAD_ITS ---
STUDY: X-RAY - RIGHT SHOULDER REASON FOR EXAM: Male, 73 years old. fall TECHNIQUE: 4 view(s) of the shoulder. COMPARISON: January 27, 2024 FINDINGS: Stable right shoulder prosthesis. No demonstrated complications. No acute fracture. Secondary osteoarthritis and cortical osteophyte formation at the humeral neck noted. There is degenerative arthrosis of the acromioclavicular joint without inferior osseous spur formation. Normal acromion. The soft tissue structures are unremarkable. Normal visualized pulmonary apex. RAD/Shoulder min 2 Views IMPRESSION: No acute process Electronically Signed: Alex Rhodes MD at 16:01 EST ,
--- NOTE | 2024-03-06 13:30 | RAD_ITS ---
STUDY: X-RAY - RIGHT ELBOW REASON FOR EXAM: Male, 73 years old. fall TECHNIQUE: 3 view(s) of the elbow. COMPARISON: None. FINDINGS: Normal visualized humerus, radius and ulna. Normal radiocapitellar and ulnotrochlear articulations. The soft tissue structures are unremarkable. There is no demonstrated fracture. RAD/Elbow min 3 Views IMPRESSION: Normal x-ray examination of the elbow. Electronically Signed: Alex Rhodes MD at 16:02 EST ,
[2024-03-06 14:02] VITALS: BP 118/70; PULSE 79; RESP 15; TEMP 36.4; O2SAT 98
[2024-03-06 14:04] LABS: Bacteria 1+ /hpf (None Seen); Hyaline Cast 5-10 SEEN /lpf (0-5); Mucous, Urine 2+ /hpf (<or=2+); Squamous Epithelial Cells - UA 0-5 SEEN /hpf (0-5); White Blood Cells 0-5 SEEN /hpf (0-5)
[2024-03-06 16:00] VITALS: BP 114/74; PULSE 73; RESP 16
--- NOTE | 2024-03-06 16:05 | PCM.HP.STD ---
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, HTN, HLD, COPD/Asthma w/ allergic rhinitis, RLS, Rheumatoid arthritis, Dementia unclear type or extent with unclear behavioral disturbance history who presents to the [facility] ED on 03/06/24 with history of unfortunate mechanical fall 2 days prior to current presentation on both Plavix and Eliquis while attempting to clean his house with associated head trauma and loss of consciousness with persistent pain to his bilateral knees, right elbow, right shoulder, left rib, left lower back, abdomen as well as left hip since he is fallen with significant weakness and debility unable to safely care for himself with no recent fevers or chills prompting eventual ED evaluation. Workup in the ED included T96.7, heart rate 116, BP 157/91, respiratory rate 18, 99% on room air with most recent repeat vital signs T97.6, heart rate 79, BP 118/70, respiratory rate 15, 98% on room air, CBC with WC 7.1, he 110, MCV 84.4, platelet 246 with increased immature granulocytes, CMP with potassium 3.4, chloride 114, BUN/creatinine 30/1.65, GFR 43, hepatic profile not marked appearing, urinalysis with evidence of dehydration with no marked evidence of UTI, CT the brain with chronic involutional changes, CT chest/abdomen/pelvis with no acute findings and no traumatic process noted, CT cervical spine with multilevel degenerative changes with no acute findings, plain film of the right shoulder with preliminary no acute process, plain film of the left knee preliminary no acute process, plain film of the right elbow preliminary no acute process but plain films all pending final read upon evaluation. In the ED patient ministered 1 L normal saline and Tylenol 1000 g p.o. x 1. [facility] Medical History Asthma DVT (deep venous thrombosis) Schizophrenia Primary osteoarthritis, right shoulder Severe malnutrition Adult failure to thrive Localized osteoarthritis of right knee Pulmonary embolism Ventral hernia, recurrent Rheumatoid arthritis Chronic pain Kidney disease Congestive heart failure (CHF) Complete rotator cuff tear Marijuana use Shoulder impingement SLAP tear of shoulder Acromioclavicular joint arthritis Essential hypertension (08/02/20) Chronic obstructive lung disease (08/02/20) Malaise and fatigue (08/02/20) Low back pain (03/01/11) Displacement of lumbar intervertebral disc without myelopathy (03/01/11) Brachial neuritis (05/31/11) Wears glasses Dementia Alcohol use Ambulates with cane Arthritis Prostate disease High cholesterol Back pain History of IBS Emphysema, unspecified History of stress test History of echocardiogram Osteoarthritis of left knee Bipolar disorder Diabetes GERD (gastroesophageal reflux disease) Former smoker COPD (chronic obstructive pulmonary disease) Myocardial infarct Hypertension Migraines Cervical spondylosis Cervical radiculitis Partial tear of right rotator cuff Essential (primary) hypertension Smoking greater than 40 pack years Dementia PVCs (premature ventricular contractions) Lung nodule < 6cm on CT Cannabis dependence DDD (degenerative disc disease) BPH (benign prostatic hyperplasia) Anxiety Depression Atherosclerotic heart disease of [place] coronary artery without angina pectoris Hyperlipidemia Trigger finger MONIQUE (obstructive sleep apnea) Stage 2 moderate COPD by GOLD classification Peptic ulcer disease Restless leg syndrome Schizophrenia Asthma History of pulmonary embolism Home Medications ?Medication ?Instructions ?Recorded ?Last Taken ?Type ropinirole 0.5 mg tablet 0.5 mg PO QHS RESTLESS LEGS 04/23/16 03/05/24 History tamsulosin 0.4 mg capsule 0.4 mg PO QHS PROSTATE 01/30/17 03/05/24 History baclofen 10 mg tablet 10 mg PO TID PRN PAIN 11/09/20 07/09/23 History icosapent ethyl 1 gram capsule 2 g PO BID HEART 11/09/20 03/06/24 History (Vascepa) donepezil 10 mg tablet 10 mg PO DAILY ALZHEIMERS 10/23/21 03/06/24 History lamotrigine 200 mg tablet 200 mg PO DAILY MOOD 10/23/21 03/06/24 History (Lamictal) olanzapine 10 mg tablet (Zyprexa) 10 mg PO QHS MOOD 10/23/21 03/05/24 History budesonide 160 mcg-glycopyr 9 2 inh inhalation BID COPD #10.7 01/28/23 03/06/24 Rx mcg-formot 4.8 mcg/actuation HFA grams inhaler (Breztri Aerosphere) dicyclomine 20 mg tablet 20 mg PO TID IRRITABLE BOWELS 04/15/23 03/06/24 History ondansetron 4 mg disintegrating 4 mg PO TID PRN NAUSEA 04/15/23 03/05/24 History tablet potassium chloride 20 mEq 20 meq PO DAILY SUPPLEMENT 04/15/23 03/06/24 History tablet,extended release(part/cryst) nitroglycerin 0.4 mg sublingual 0.4 mg sublingual Q5-15M PRN chest 06/16/23 Unknown Rx tablet (Nitrostat) pain #25 tabs atorvastatin 40 mg tablet 40 mg PO QHS CHOLESTEROL #90 tabs 06/24/23 03/05/24 Rx albuterol sulfate 2.5 mg/3 mL 2.5 mg inhalation Q8H PRN 07/10/23 03/06/24 History (0.083 %) solution for nebulization shortness of breath or wheezing albuterol sulfate 90 mcg/actuation 2 puff inhalation Q6H PRN 07/10/23 07/09/23 History aerosol inhaler Shortness Of Breath mesalamine 0.375 gram 1.5 g PO BID 07/10/23 03/06/24 History capsule,extended release 24 hr ferrous sulfate 325 mg (65 mg 325 mg PO DAILY 09/02/23 03/06/24 History iron) tablet furosemide 20 mg tablet (Lasix) 20 mg PO DAILY 09/02/23 03/06/24 History budesonide 3 mg 9 mg PO QDAY 10/13/23 03/06/24 History capsule,delayed,extended release aripiprazole 10 mg tablet 10 mg PO QDAY 11/19/23 03/06/24 History fenofibrate 54 mg tablet 54 mg PO DAILY 11/19/23 03/06/24 History loratadine 10 mg tablet 10 mg PO QDAY 11/19/23 03/06/24 History losartan 50 mg tablet 50 mg PO BID 11/19/23 03/06/24 History mirtazapine 30 mg tablet 30 mg PO QHS 11/19/23 03/05/24 History fexofenadine 180 mg tablet 180 mg PO QDAY 12/18/23 03/06/24 History (Jeaneth Allergy) apixaban 5 mg tablet (Eliquis) 5 mg PO BID #60 tabs 12/30/23 03/06/24 Rx famotidine 20 mg tablet 20 mg PO BID 3 months #180 tabs 12/31/23 03/06/24 Rx clopidogrel 75 mg tablet 75 mg PO DAILY BLOOD THINNER #30 01/15/24 03/06/24 Rx tabs acetaminophen 500 mg tablet 1,000 mg PO Q8 PRN pain 03/06/24 Unknown History trazodone 150 mg tablet 150 mg PO QHS 03/06/24 03/05/24 History Allergy/AdvReac Type Severity Reaction Status Date / Time Quinolones Allergy Unknown unknown Verified 03/06/24 11:19 aspirin Allergy Itching, Verified 03/06/24 11:19 Hives levofloxacin (From Levaquin) Allergy Hives, Verified 03/06/24 11:19 Itching Penicillins Allergy Hives, Verified 03/06/24 11:19 Itching Family History (Updated 03/06/24 @ 17:[address] Margo Sawyre MD) Mother CAD (coronary artery disease) Sister Diabetes Father Alcoholism Surgical History History of cholecystectomy History of coronary artery stent placement History of right shoulder replacement Hx of colonoscopy S/P right rotator cuff repair Hx of repair of right rotator cuff (06/04/22) H/O left knee surgery History of laparoscopic cholecystectomy History of appendectomy H/O cervical spine surgery H/O ventral hernia repair History of left heart catheterization (04/2016) History of coronary artery stent placement (10/16/18) Social History household members: none housing: house current occupational status: disabled Smoking Status: Former smoker quit date: 02/14/15 how long ago did patient quit smokin years ago second hand exposure: Yes alcohol intake: former details: Quit 9 years ago substance use type: marijuana caffeine: Yes Type: coffee what type of physical activity do you participate in: none seatbelt use: always do you feel safe at home: Yes ROS ROS Narrative Admission Review of Systems: CONSTITUTIONAL: No weight loss, fever, chills, + weakness or fatigue. HEENT: Eyes: No visual loss, blurred vision, double vision or yellow sclerae. Ears, Nose, Throat: No hearing loss, sneezing, congestion, runny nose or sore throat. SKIN: No rash or itching, lesions, wounds except + very stage ecchymoses, abrasions per CARDIOVASCULAR: No chest pain, chest pressure or chest discomfort, palpitations, edema, orthopnea, syncopal events. RESPIRATORY: No shortness of breath, cough or sputum, wheezing, hemoptysis. GASTROINTESTINAL: No anorexia, nausea, vomiting or diarrhea, abdominal pain, melena, BRBPR. GENITOURINARY: No dysuria, frequency, urgency or retention. NEUROLOGICAL: + Frequent mechanical falls. No headache, dizziness, syncope, paralysis, ataxia, numbness or tingling in the extremities, focal weakness, change in bowel or bladder control, seizure. MUSCULOSKELETAL: + muscle, back pain, joint pain or stiffness. HEMATOLOGIC: + Chronic anemia, easy bleeding/bruising. LYMPHATICS: No enlarged nodes. No history of splenectomy. PSYCHIATRIC: + History of anxiety and depression. ENDOCRINOLOGIC: No reports of sweating, cold or heat intolerance. No polyuria or polydipsia. ALLERGIES: + History of asthma, allergic rhinitis, hives. Vital Signs Vital Signs Vital Signs: 03/06/24 11:17 03/06/24 12:05 03/06/24 14:02 Temperature 96.7 F L Temperature Source Temporal Pulse Rate 116 H 79 Respiratory Rate 18 15 Respiratory Effort Normal Non-Labored Respiratory Depth Normal Respiratory Pattern Normal Blood Pressure 157/91 H 118/70 Blood Pressure Mean 113 86 Pulse Ox 99 98 Oxygen Delivery Method Room Air Room Air Room Air 03/06/24 14:02 Temperature 97.6 F L Temperature Source Pulse Rate 79 Respiratory Rate 15 Respiratory Effort Respiratory Depth Respiratory Pattern Blood Pressure 118/70 Blood Pressure Mean 86 Pulse Ox 98 Oxygen Delivery Method Weight Weight: 175 lb 4.28 oz Body Mass Index (BMI) 23.7 Physical Exam Narrative Physical Examination: General: Awake, alert, oriented x 3 and cooperative, seated upright in the ED bed, fatigued, notes generalized aches and discomfort following recent falls. Skin: Normal color, normal turgor, no icterus, no cyanosis EXTR occasional stage ecchymoses, abrasions HEENT: AT/NC, EOMI, PERRLA, mildly dry MM, no carotid bruits or JVD noted. Lungs: Diminished, greater bases, appropriate effort, no rales, ronchi or wheezing. Heart: Regular rate and rhythm; no gallop, rub audible. Abdomen: Soft, NTTP, ND, mildly hyperactive BS, no appreciated HSM. Extremities: No cyanosis, no clubbing, no marked peripheral edema, various ecchymoses/abrasions, see skin. Neurological: Patient awake, alert, oriented as noted, cognitive function intact; pupils equally reactive to light and accommodation, cranial nerves grossly normal, moving all 4 extremities, no focal deficits, strength moderately to severely globally decreased Psychiatric: Affect appears flat, fatigued no acute evidence of depressive or anxiety feelings but does have underlying history. Results Lab / Micro Data 03/06/24 12:34 03/06/24 12:34 Labs: Laboratory Results - last 24 hr 03/06/24 12:34: WBC 7.1, RBC 3.77 L, Hgb 10.0 L, Hct 31.8 L, MCV 84.4, MCH 26.5 L, MCHC 31.4 L, RDW Std Deviation 48.1 H, RDW Coeff of Tad 15.7 H, Plt Count 246, MPV 9.7, Immature Gran % (Auto) 1.000 H, Neut % (Auto) 62.7, Lymph % (Auto) 24.6, [place] % (Auto) 10.1 H, Eos % (Auto) 1.0, Baso % (Auto) 0.6, Absolute Neuts (auto) 4.4, Absolute Lymphs (auto) 1.74, Nucleated RBC % 0, Sodium 143, Potassium 3.4 L, Chloride 114 H, Carbon Dioxide 23.0, Anion Gap 6, BUN 30 H, Creatinine 1.65 H, Estim Creat Clear Calc 42.46, Est GFR (MDRD) Af Amer 52 L, Est GFR (MDRD) Non-Af 43 L, BUN/Creatinine Ratio 18.2, Glucose 100, Calcium 8.7, Total Bilirubin 0.40, AST 12 L, ALT 27, Alkaline Phosphatase 104, Total Protein 6.0 L, Albumin 3.3, Globulin 2.7, Albumin/Globulin Ratio 1.2 03/06/24 13:07: Urine Color Yellow, Urine Clarity Clear, Urine pH 5.0, Ur Specific [place] 1.025, Urine Protein Negative, Urine Glucose (UA) Normal, Urine Ketones Negative, Urine Occult Blood Negative, Urine Nitrite Negative, Urine Bilirubin Negative, Urine Urobilinogen Normal, Ur Leukocyte Esterase Negative, Urine RBC 0 SEEN, Urine WBC 0-5 SEEN, Ur Squamous Epith Cells 0-5 SEEN, Urine Bacteria 1+, Hyaline Casts 5-10 SEEN, Urine Mucus 2+ Imaging Radiology Impression Brain CT 03/06/24 11:30 IMPRESSION: Chronic involutional changes of the brain. Electronically Signed: Alex Rhodes MD at 15:33 EST Reading Location ID and State: [facility] / [place] , Service support , Cervical Spine CT 03/06/24 11:30 IMPRESSION: Multilevel degenerative changes, as described above. Electronically Signed: Alex Rhodes MD at 15:50 EST Reading Location ID and State: [address] [place] [address] , Service support , Chest/Abdomen/Pelvis CT 03/06/24 11:30 IMPRESSION: 1. CT of the chest: No consolidation or pleural effusion or pneumothorax 2. Abdomen and pelvis: No acute traumatic process of the organs or bowel loops 3. No acute pelvic or hip fractures Electronically Signed: Alex Rhodes MD at 15:41 EST Reading Location ID and State: [facility] / [place] , Service support , Elbow X-Ray 03/06/24 13:30 IMPRESSION: Normal x-ray examination of the elbow. Electronically Signed: Alex Rhodes MD at 16:02 EST , Knee X-Ray 03/06/24 13:30 IMPRESSION: No acute process. Electronically Signed: Alex Rhodes MD at 16:02 EST , Shoulder X-Ray 03/06/24 13:30 IMPRESSION: No acute process Electronically Signed: Alex Rhodes MD at 16:01 EST , Assessment & Plan Assessment/Plan (1) Adult failure to thrive: (2) Frequent falls: PLAN: Plan The patient is a 73 y/o M w/ PMHx: HFpEF, Chronic normocytic anemia/Fe deficiency anemia, CKD stage II versus stage III based on GFR trending, Chronic cannabis usage, CAD, MONIQUE noncompliant with PAP therapy, Diabetes mellitus type II, GERD w/ PUD, Former tobacco use, Bipolar disorder/Schizophrenia unclear type, Hx VTE (DVT, PE) on Eliquis, HTN, HLD, COPD/Asthma w/ allergic rhinitis, RLS, Rheumatoid arthritis, Dementia unclear type or extent with unclear behavioral disturbance history who presents to the [facility] ED on 03/06/24 with history of unfortunate mechanical fall 2 days prior to current presentation on both Plavix and Eliquis while attempting to clean his house with associated head trauma and loss of consciousness with persistent pain to his bilateral knees, right elbow, right shoulder, left rib, left lower back, abdomen as well as left hip since he is fallen with significant weakness and debility unable to safely care for himself with no recent fevers or chills prompting eventual ED evaluation. #1. Mechanical fall with associated loss of consciousness, closed head injury on anticoagulation and antiplatelet therapy with significant debility, adult failure to thrive: Will admit to medical surgical floor, maintain on fall precautions, awaiting final read on plain films but no obvious injury, no acute findings also of note on any CT chest/abdomen/pelvis/neck/head fortunately, will very cautiously continue his antiplatelet and anticoagulant therapy however he seems to be very high risk this may need to reconsider, at this point given significant debility will need to consider skilled facility placement, will have judicious as needed pain regimen, trend labs, encourage frequent positional changes and offloading, TCK requested, PT/OT/case management consulted for discharge planning. #2. Hypokalemia: Admission K+ 3.4, magnesium level requested, supplementation given, repeat level in AM. #3. Chronic HFpEF: Most recent echocardiogram 03/08/2021 with normal LV size, LV systolic function normal, EF 60%, stage I diastolic dysfunction, structurally normal valves. Will continue patient home Plavix, Eliquis, statin, losartan, Lasix regimen, not on beta-carlos manuel therapy currently spent clarifying, judicious hydrate if necessary. #4. Chronic COPD/asthma with allergic rhinitis: Will temporally hold home inhalers in the interim placed on ATC budesonide therapy, PRN albuterol, HOB, IS parameters, continue home venlafaxine versus loratadine regimen, clarifying his above listed. #5. Chronic normocytic anemia/iron deficiency anemia: Admission hemoglobin 10, MCV 84.4, baseline hemoglobin more recently primarily 10-11 range, last noted prior to this 01/10/2024 hemoglobin 10.1, stable, continue to trend, continue iron supplementation. #6. Chronic Kidney Disease Stage II versus stage III unclear subtype based on GFR trending, uncertain as has vacillated and unclear if the stage III GFR timeline was more with acute presentation: Admission BUN/Cr 30/1.65, GFR 43, baseline renal function primarily 1.1-1.2 although 01/10/2024 creatinine 1.33, repeat BMP in AM to further elucidate staging. #7. Dementia unclear type although single chart report noting possibly Alzheimer's but uncertain or extent with unclear behavioral disturbance history: Complicates presentation, maintain on fall precautions, continue patient home donepezil regimen, PT/OT/case management consulted for discharge planning. #8. Diabetes mellitus type II: Noted chart history, not currently on any medication, hemoglobin A1c requested, in the interim will maintain on ADA diet, accu checks w/ ISS. #9. Chronic cannabis usage: Given mechanical falls in severity will request urine drug screen to ensure there is no other agents in addition to cannabis that could be contributing to falls. #10. History of VTE: Patient with history DVT, PE, continue Eliquis therapy. #11. Schizophrenia unclear type, bipolar disorder unclear type: We will continue patient home psychiatric regimen including trazodone, mirtazapine, Lamictal. Attempted clarify if patient is on Zyprexa and aripiprazole, will add appropriate regimen once certain. #12. Former tobacco use: Encourage continued tobacco cessation. #13. Rheumatoid arthritis: Noted in chart history, not on any medication aside from as needed baclofen, encourage continued outpatient follow-up with rheumatology as previously arranged. #14. CAD: Status post previous bare-metal stenting to the mid RCA 2013, NEVAEH to the proximal LAD after FFR 10/16/2018 will continue Plavix, Eliquis, statin, losartan, per current list does not appear to be on any beta-carlos manuel therapy but clarifying. #15. Hypertension: Continue home regimen including losartan, Lasix with hold parameters as needed, PRN hydralazine. #16. Hyperlipidemia: We will continue patient on statin and fenofibrate therapy. #17. GERD with PUD: We will continue patient on famotidine, as needed Mylanta. #18. BPH with obstructive pathology: We will continue patient on Flomax regimen. #19. Restless leg syndrome: Wilkening patient home low-dose Requip regimen. #20. MONIQUE: Noncompliant with PAP therapy. #21. DVT prophylaxis: We will continue patient home apixaban regimen. #22. CODE status: Patient MIGUEL is his daughter but living will is not in place. Discussed that he could discuss setting up a living will with case management/social work and they should be able to assist while he is here. Discussed CODE status at length including difference between FULL code, DNR-CCA and DNR-CC status. Following discussions about the differences in these status, requested Full Code status. Advanced Care Planning Face to Face Time: 16 minutes. Charges/Coding Visit Charges Inpatient E&M: 77207 Init Hosp L3 Procedures Hospitalists Procedures: 85616 Advncd Care Plan 30 Min
[2024-03-06 16:44] LABS: Magnesium 1.7 mg/dL (1.6-2.6)
[2024-03-06 16:48] VITALS: BP 133/83; PULSE 79; RESP 18; TEMP 36.7; O2SAT 97
[2024-03-06 16:50] VITALS: BMI 23.8
[2024-03-06 16:57] LABS: Amphetamine Urine VISTA NEGATIVE (<1000 ng/mL); Barbiturate Urine VISTA NEGATIVE (< 200 ng/mL); Benzodiazepine Urine VISTA NEGATIVE (< 200 ng/mL); Cocaine Urine VISTA NEGATIVE (< 300 ng/mL); Ecstacy Urine VISTA POSITIVE (< 500 ng/mL); Methadone Urine VISTA NEGATIVE (< 300 ng/mL); PCP Urine VISTA NEGATIVE (< 25 ng/mL); THC Urine VISTA POSITIVE (< 50 ng/mL); Vista UDS pH Range 4
[2024-03-06 17:06] LABS: CPK Total, Creatine Kinase 233 U/L (39-308)
[2024-03-06] MEDS: 0.9% Normal Saline (1000mL) 1,000 ML 100 ML IV (17:29)
[2024-03-06] MEDS: Potassium Chloride Oral Tablet 20 MEQ 40 MEQ PO (17:29)
[2024-03-06 19:10] VITALS: PULSE 82; RESP 14; O2SAT 97
[2024-03-06] MEDS: Budesonide Respules 0.5 MG/2 ML AMPUL.NEB. INHALATION (19:10)
[2024-03-06 22:29] VITALS: BP 111/59; PULSE 79; RESP 18; TEMP 36.5; O2SAT 96
[2024-03-06] MEDS: APIXABAN 5 MG TABLET PO (22:47)
[2024-03-06] MEDS: MESALAMINE 400 MG CAPSULE.DR 1600 MG PO (22:47)
[2024-03-06] MEDS: Tamsulosin HCl 0.4 MG Capsule PO (22:47)
[2024-03-06] MEDS: Pramipexole Di-HCl 0.25 MG Tablet PO (22:48)
[2024-03-06] MEDS: Atorvastatin Calcium 40 MG Tablet PO (22:48)
[2024-03-06] MEDS: Mirtazapine 30 MG Tablet PO (22:48)
[2024-03-06] MEDS: Losartan Potassium 50 MG Tablet PO (22:48)
[2024-03-06] MEDS: Menthol/Lanolin/Calamine/Znox 113 GM Tube 1 APPLIC TOPICAL (22:49)
[2024-03-06] MEDS: traZODone 50 MG Tablet 150 MG PO (22:49)
[2024-03-06] MEDS: Dicyclomine 10 MG Capsule 20 MG PO (22:49)
[2024-03-06] MEDS: OLANZapine 10 MG Tablet PO (22:49)
[2024-03-06 23:16] LABS: Bedside Glucose 125 mg/dL (74-106)
[2024-03-07 04:23] VITALS: BP 121/56; PULSE 66; RESP 18; TEMP 36.4; O2SAT 99
[2024-03-07 06:00] VITALS: BMI 24.0
[2024-03-07 06:04] LABS: Absolute Lymphocyte Count 1.53 X10^3/uL (0.83-4.51); Absolute Neutrophil Count 4.9 X10^3/uL (2.0-7.7); Basophil# 0.02 X10^3/uL; Basophil% 0.3 % (0-1); Eosinophil# 0.07 X10^3/uL; Hematocrit 29.5 % (40-54); Hemoglobin 9.1 g/dL (13.0-16.5); Lymphocyte # 1.53 X10^3/ul (0.83-4.51); Lymphocyte % 21.5 % (19-41); Mean Corp Hgb Conc 30.8 g/dL (32-36); Mean Corpuscular Hgb 26.1 pg (27.0-32.0); Mean Corpuscular Volume 84.8 fL (80-94); Mean Platelet Vol. 9.7 fl (6.2-12.0); Monocyte# 0.47 X10^3/uL; Monocyte% 6.6 % (0-10); NRBC Flagged by Analyzer 0 % (0-5); Neutrophil # 4.94 X10^3/uL (2.7-7.7); Neutrophil % 69.6 % (47-70); Platelet Count 238 K/mm3 (150-450); RBC Distribution Width CV 15.9 % (11.6-14.6); RBC Distribution Width SD 49.1 fl (35.1-43.9); Red Blood Count 3.48 M/mm3 (4.6-6.2); White Blood Count 7.1 K/mm3 (4.4-11.0)
[2024-03-07] MEDS: Dicyclomine 10 MG Capsule 20 MG PO ×3 (06:47→22:23)
[2024-03-07 06:52] LABS: ALB/GLOB Ratio 1.2 RATIO (0.9-2.4); AST(SGOT) 12 U/L (15-37); Alanine Aminotransfer ALT/SGPT 22 U/L (16-61); Albumin, Serum 2.9 g/dL (3.2-5.0); Alkaline Phosphatase 93 U/L (45-117); Anion Gap 8 (5-15); BUN 21 mg/dL (7-18); BUN/Creat Ratio 18.3 RATIO (10-20); Calcium,Total 8.2 mg/dL (8.5-10.1); Chloride 113 mmol/L (98-107); Creatinine, Serum 1.15 mg/dL (0.70-1.30); EST Glomerular Filtration Rate 66 mL/min (>60); Est Glom Filt Rate - Afr Amer 80 mL/min (>60); Estimated Creatinine Clearance 60.92 ml/min; Globulin 2.5 g/dL (2.2-4.2); Glucose 103 mg/dL (74-106); Potassium 3.8 mmol/L (3.5-5.1); Protein, Total 5.4 g/dL (6.4-8.2); Sodium Level 144 mmol/L (136-145)
[2024-03-07 07:07] LABS: Bedside Glucose 112 mg/dL (74-106)
[2024-03-07] MEDS: Budesonide Respules 0.5 MG/2 ML AMPUL.NEB. INHALATION ×2 (07:54→19:35)
[2024-03-07 07:57] VITALS: PULSE 72; RESP 18; O2SAT 98
[2024-03-07] MEDS: Menthol/Lanolin/Calamine/Znox 113 GM Tube 1 APPLIC TOPICAL ×4 (08:26→22:24)
[2024-03-07] MEDS: lamoTRIgine 100 MG Tablet 200 MG PO (08:27)
[2024-03-07] MEDS: MESALAMINE 400 MG CAPSULE.DR 1600 MG PO ×2 (08:27→22:24)
[2024-03-07] MEDS: Budesonide 3 MG CAPSULE.EC 9 MG PO (08:27)
[2024-03-07] MEDS: Ferrous Sulfate 325 MG Tablet PO (08:28)
[2024-03-07] MEDS: Fenofibrate 48 MG Tablet PO (08:28)
[2024-03-07] MEDS: Famotidine 20 MG Tablet PO (08:29)
[2024-03-07] MEDS: Furosemide 20 MG Tablet PO (08:29)
[2024-03-07] MEDS: Clopidogrel Bisulfate 75 MG Tablet PO (08:30)
[2024-03-07] MEDS: Donepezil HCl 10 MG Tablet PO (08:31)
[2024-03-07] MEDS: Loratadine 10 MG Tablet PO (08:31)
[2024-03-07] MEDS: Losartan Potassium 50 MG Tablet PO (08:31)
[2024-03-07] MEDS: Potassium Chloride Oral Tablet 20 MEQ PO (08:32)
--- NOTE | 2024-03-07 09:32 | PN_ITS ---
Subjective Subjective Patient seen and examined. He had no active complaints. He was admitted with a complaint of frequent falls. Review of systems is otherwise negative. He has remained hemodynamically stable. Objective Data Objective Data Vital Signs: Vital Signs Temp Pulse Resp BP Pulse Ox O2 Del Method 97.6 F L 72 18 121/56 H 98 Room Air 03/07/24 04:23 03/07/24 07:57 03/07/24 07:57 03/07/24 04:23 03/07/24 07:57 03/07/24 07:57 Oxygen Delivery Method Room Air Weight: 177 lb 14.609 oz Body Mass Index (BMI) 24.0 Intake & Output: Intake and Output for Last 24 Hours 03/05/24 03/06/24 03/07/24 23:59 23:59 23:59 Intake Total 1300 / 1300 1600 / 1600 Output Total 800 / 800 Balance 1300 / 1300 800 / 800 Lab / Micro Data 03/07/24 05:13 03/07/24 05:13 Labs: Laboratory Results - last 24 hr 03/06/24 12:34: WBC 7.1, RBC 3.77 L, Hgb 10.0 L, Hct 31.8 L, MCV 84.4, MCH 26.5 L, MCHC 31.4 L, RDW Std Deviation 48.1 H, RDW Coeff of Tad 15.7 H, Plt Count 246, MPV 9.7, Immature Gran % (Auto) 1.000 H, Neut % (Auto) 62.7, Lymph % (Auto) 24.6, [place] % (Auto) 10.1 H, Eos % (Auto) 1.0, Baso % (Auto) 0.6, Absolute Neuts (auto) 4.4, Absolute Lymphs (auto) 1.74, Nucleated RBC % 0, Sodium 143, P otassium 3.4 L, Chloride 114 H, Carbon Dioxide 23.0, Anion Gap 6, BUN 30 H, C reatinine 1.65 H, Estim Creat Clear Calc 42.46, Est GFR (MDRD) Af Amer 52 L, Est GFR (MDRD) Non-Af 43 L, BUN/Creatinine Ratio 18.2, Glucose 100, Calcium 8.7, Magnesium 1.7, Total Bilirubin 0.40, AST 12 L, ALT 27, Alkaline Phosphatase 104, Total Creatine Kinase 233, Total Protein 6.0 L, Albumin 3.3, Globulin 2.7, Albumin/Globulin Ratio 1.2 03/06/24 13:07: Urine Color Yellow, Urine Clarity Clear, Urine pH 5.0, Ur Specific [place] 1.025, Urine Protein Negative, Urine Glucose (UA) Normal, Urine Ketones Negative, Urine Occult Blood Negative, Urine Nitrite Negative, Urine Bilirubin Negative, Urine Urobilinogen Normal, Ur Leukocyte Esterase Negative, Urine RBC 0 SEEN, Urine WBC 0-5 SEEN, Ur Squamous Epith Cells 0-5 SEEN, Urine Bacteria 1+, Hyaline Casts 5-10 SEEN, Urine Mucus 2+, Urine Opiates Screen NEGATIVE, Urine Methadone Screen NEGATIVE, Ur Barbiturates Screen NEGATIVE, Ur Phencyclidine Scrn NEGATIVE, Ur Amphetamines Screen NEGATIVE, MDMA (Ecstasy) Screen POSITIVE H, U Benzodiazepines Scrn NEGATIVE, Urine Cocaine Screen NEGATIVE, U Cannabinoids Screen POSITIVE H, Ur Drug Screen Comment 03/06/24 22:36: POC Glucose 125 H 03/07/24 05:13: WBC 7.1, RBC 3.48 L, Hgb 9.1 L, Hct 29.5 L, MCV 84.8, MCH 26.1 L , MCHC 30.8 L, RDW Std Deviation 49.1 H, RDW Coeff of Tad 15.9 H, Plt Count 238, MPV 9.7, Immature Gran % (Auto) 1.000 H, Neut % (Auto) 69.6, Lymph % (Auto) 21.5, [place] % (Auto) 6.6, Eos % (Auto) 1.0, Baso % (Auto) 0.3, Absolute Neuts (auto) 4.9, Absolute Lymphs (auto) 1.53, Nucleated RBC % 0, Sodium 144, Potassium 3.8, Chloride 113 H, Carbon Dioxide 23.0, Anion Gap 8, BUN 21 H, Creatinine 1.15, Estim Creat Clear Calc 60.92, Est GFR (MDRD) Af Amer 80, Est GFR (MDRD) Non-Af 66, BUN/Creatinine Ratio 18.3, Glucose 103, Hemoglobin A1c 6.0 H, Calcium 8.2 L, Total Bilirubin 0.40, AST 12 L, ALT 22, Alkaline Phosphatase 93, Total Protein 5.4 L, Albumin 2.9 L, Globulin 2.5, Albumin/Globulin Ratio 1.2 03/07/24 06:47: POC Glucose 112 H Radiography Diagnostic Testing: Radiology Impression Brain CT 03/06/24 11:30 IMPRESSION: Chronic involutional changes of the brain. Electronically Signed: Alex Rhodes MD at 15:33 EST Reading Location ID and State: [facility] / [place] , Service support , Cervical Spine CT 03/06/24 11:30 IMPRESSION: Multilevel degenerative changes, as described above. Electronically Signed: Alex Rhodes MD at 15:50 EST Reading Location ID and State: [address] [place] [address] , Service support , Chest/Abdomen/Pelvis CT 03/06/24 11:30 IMPRESSION: 1. CT of the chest: No consolidation or pleural effusion or pneumothorax 2. Abdomen and pelvis: No acute traumatic process of the organs or bowel loops 3. No acute pelvic or hip fractures Electronically Signed: Alex Rhodes MD at 15:41 EST Reading Location ID and State: [address] [place] [address] , Service support , Elbow X-Ray 03/06/24 13:30 IMPRESSION: Normal x-ray examination of the elbow. Electronically Signed: Alex Rhodes MD at 16:02 EST Reading Location ID and State: [address] [place] [address] , Service support , Knee X-Ray 03/06/24 13:30 IMPRESSION: No acute process. Electronically Signed: Alex Rhodes MD at 16:02 EST , Shoulder X-Ray 03/06/24 13:30 IMPRESSION: No acute process Electronically Signed: Alex Rhodes MD at 16:01 EST Reading Location ID and State: [address] [place] [address] , Service support , Physical Exam Const alert, oriented x3, no apparent distress and well nourished General Appearance: cooperative and well developed HEENT normocephalic, head/scalp atraumatic, moist oral mucous membranes and oropharynx normal Eyes PERRL and EOMs intact bilaterally Neck no lymphadenopathy and supple Lymph Lymphatic: no lymphadenopathy noted and no lymphedema noted Resp normal respiratory effort, normal air movement and clear to auscultation bilaterally Cardio regular rate, regular rhythm, S1 normal heart sound, S2 normal heart sound and no murmurs GI normal to inspection, nondistended, normoactive bowel sounds, soft to palpation, non-tender and non-distended Extremity normal capillary refill, no clubbing, cyanosis or edema and no calf tenderness General Extremity: no tenderness to palpation of joints or extremities Skin General Skin Exam: no breakdown Neuro CN's II-XII intact bilaterally, no focal motor deficits and no sensory deficits noted Motor Exam: strength 5/5 throughout and general weakness Psych thought process normal and cooperative Appearance: appropriate Assessment & Plan Assessment/Plan (1) Frequent falls: (2) Multiple contusions: (3) Adult failure to thrive: PLAN: Plan #Debility due to mechanical fall * patient admitted with a complaint of mechanical fall. HE says he has fallen 5x this year. * he did hit his head, but CT of the brain showed no acute intracranial pathology. CT chest, abdomen and pelvis were also negative * PT/OT On board. * Fall precautions * #Hypokalemia: K is 3.4. Will replace and trend. #HFpEF: not in exacerbation. On lasix, losartan. #Chronic asthma and COPD: not in exacerbation. Breathing treatment with bronchodilators. # Type 2 diabetes mellitus: insulin Sliding scale. Accu-Cheks ACHS. A1c is 6. #History of venous thromboembolism: * On Eliquis. It is unclear how long ago he had. * For review of the chart it seems he had PE in March 2023 and was advised to continue Eliquis for 3 months. In light of his frequent falls I think it is reasonable to discontinue the Eliquis and patient states he does not want to continue taking it. * #History of schizophrenia and bipolar disorder: On Lamictal, trazodone and mirtazapine. #Hypertension: On losartan. IV hydralazine as needed #Hyperlipidemia: On statin statin and fenofibrate #GERD peptic ulcer disease: On famotidine #BPH with obstructive uropathy: On Flomax #Restless leg syndrome: On Requip DVT prophylaxis: SCDs. Disposition: Will benefit from placement. PT OT on board. Charges/Coding Visit Charges Inpatient E&M: 87508 Subs Hosp L2
[2024-03-07 10:15] VITALS: BP 122/81; PULSE 71; RESP 18; TEMP 36.6; O2SAT 97
[2024-03-07 11:59] LABS: Bedside Glucose 101 mg/dL (74-106)
[2024-03-07] MEDS: Glucerna Shake 120 ML LIQUID PO ×2 (13:29→16:35)
[2024-03-07 16:09] VITALS: BP 121/78; PULSE 76; RESP 16; TEMP 36.8; O2SAT 98
[2024-03-07 17:00] LABS: Bedside Glucose 105 mg/dL (74-106)
[2024-03-07 19:35] VITALS: PULSE 78; RESP 16; O2SAT 98
[2024-03-07 20:29] VITALS: BP 103/60; PULSE 75; RESP 17; TEMP 36.7; O2SAT 97
[2024-03-07] MEDS: Tamsulosin HCl 0.4 MG Capsule PO (22:24)
[2024-03-07] MEDS: traZODone 50 MG Tablet 150 MG PO (22:24)
[2024-03-07] MEDS: OLANZapine 10 MG Tablet PO (22:25)
[2024-03-07] MEDS: Atorvastatin Calcium 40 MG Tablet PO (22:25)
[2024-03-07] MEDS: Pramipexole Di-HCl 0.25 MG Tablet PO (22:25)
[2024-03-07] MEDS: Mirtazapine 30 MG Tablet PO (22:25)
[2024-03-07 22:51] LABS: Bedside Glucose 118 mg/dL (74-106)
[2024-03-08 03:00] VITALS: BP 116/64; PULSE 66; RESP 13; TEMP 36.7; O2SAT 98
[2024-03-08 06:00] VITALS: BMI 23.9
[2024-03-08 06:16] LABS: Absolute Lymphocyte Count 1.67 X10^3/uL (0.83-4.51); Absolute Neutrophil Count 4.7 X10^3/uL (2.0-7.7); Basophil# 0.02 X10^3/uL; Basophil% 0.3 % (0-1); Eosinophil# 0.04 X10^3/uL; Eosinophils% 0.6 % (0-5); Hematocrit 29.4 % (40-54); Hemoglobin 9.2 g/dL (13.0-16.5); Lymphocyte # 1.67 X10^3/ul (0.83-4.51); Lymphocyte % 24.2 % (19-41); Mean Corp Hgb Conc 31.3 g/dL (32-36); Mean Corpuscular Hgb 26.4 pg (27.0-32.0); Mean Corpuscular Volume 84.2 fL (80-94); Mean Platelet Vol. 9.6 fl (6.2-12.0); Monocyte# 0.43 X10^3/uL; Monocyte% 6.2 % (0-10); NRBC Flagged by Analyzer 0 % (0-5); Neutrophil # 4.67 X10^3/uL (2.7-7.7); Neutrophil % 67.8 % (47-70); Platelet Count 232 K/mm3 (150-450); RBC Distribution Width SD 49.5 fl (35.1-43.9); Red Blood Count 3.49 M/mm3 (4.6-6.2); White Blood Count 6.9 K/mm3 (4.4-11.0)
[2024-03-08 06:39] LABS: Anion Gap 4 (5-15); BUN 20 mg/dL (7-18); BUN/Creat Ratio 16.8 RATIO (10-20); Calcium,Total 8.6 mg/dL (8.5-10.1); Chloride 113 mmol/L (98-107); Creatinine, Serum 1.19 mg/dL (0.70-1.30); EST Glomerular Filtration Rate 63 mL/min (>60); Est Glom Filt Rate - Afr Amer 77 mL/min (>60); Estimated Creatinine Clearance 58.87 ml/min; Glucose 104 mg/dL (74-106); Potassium 3.6 mmol/L (3.5-5.1); Sodium Level 143 mmol/L (136-145)
[2024-03-08] MEDS: Budesonide Respules 0.5 MG/2 ML AMPUL.NEB. INHALATION ×2 (06:39→19:23)
[2024-03-08 06:40] VITALS: PULSE 74; RESP 18; O2SAT 98
[2024-03-08 06:53] LABS: Bedside Glucose 99 mg/dL (74-106)
[2024-03-08] MEDS: Dicyclomine 10 MG Capsule 20 MG PO ×3 (07:17→22:54)
[2024-03-08 07:32] VITALS: BP 130/78; PULSE 69; RESP 16; TEMP 36.6; O2SAT 99
[2024-03-08] MEDS: Ferrous Sulfate 325 MG Tablet PO (07:39)
--- NOTE | 2024-03-08 10:02 | CASEMGMT ---
Discharge Planning A list of SNF providers including quality and resource use data and consistent with the patient's preferred geographic region, medical needs, and insurance network was created in [employer] Guide.? This list was provided to the SW. Damaris Cassidy Discharge Planning Asst.
[2024-03-08] MEDS: Budesonide 3 MG CAPSULE.EC 9 MG PO (10:38)
[2024-03-08] MEDS: Donepezil HCl 10 MG Tablet PO (10:38)
[2024-03-08] MEDS: Menthol/Lanolin/Calamine/Znox 113 GM Tube 1 APPLIC TOPICAL ×3 (10:38→22:54)
[2024-03-08] MEDS: Loratadine 10 MG Tablet PO (10:39)
[2024-03-08] MEDS: Losartan Potassium 50 MG Tablet PO (10:39)
[2024-03-08] MEDS: MESALAMINE 400 MG CAPSULE.DR 1600 MG PO ×2 (10:40→22:54)
[2024-03-08] MEDS: Potassium Chloride Oral Tablet 20 MEQ PO (10:41)
[2024-03-08] MEDS: Furosemide 20 MG Tablet PO (10:41)
[2024-03-08] MEDS: lamoTRIgine 100 MG Tablet 200 MG PO (10:41)
[2024-03-08] MEDS: Fenofibrate 48 MG Tablet PO (10:42)
[2024-03-08] MEDS: Famotidine 20 MG Tablet PO (10:42)
[2024-03-08] MEDS: Clopidogrel Bisulfate 75 MG Tablet PO (10:42)
[2024-03-08] MEDS: Glucerna Shake 120 ML LIQUID PO ×4 (10:47→22:55)
[2024-03-08 12:11] LABS: Bedside Glucose 117 mg/dL (74-106)
--- NOTE | 2024-03-08 13:04 | CASEMGMT ---
Social Work- SW met with pt to discuss preferences at discharge. SW introduced self and role. Pt reports that he would like to have a referral to [facility]. DCA notified of referral request. Plan: [facility] pending acceptance ROSALEE Lindsay
--- NOTE | 2024-03-08 13:07 | CASEMGMT ---
Addendum entered by Mitzy Romero 03/08/24 14:47: Pt states that he is supposed to have surgery by on Apr 13 for a TKR. Original Note: FRANTZ DOS SANTOS Assessment: Face to Face with pt for initial transition planning/care coordination assessment. FRANTZ DOS SANTOS introduced self and role at [facility], pt voices understanding and consents to assessment. Pt is A&O x4 and answers all questions appropriately at this time. Pt sitting up in chair in no distress. Care providers, pharmacy, and demographics verified/updated. Admitting Dx: falls, adult FTT Strata Score: 3 PCP:Eliel Mosley [facility] Specialists:Suki, ortho; WHG, cardio; Scurry for pulm Preferred Pharmacy: [facility] Insurance: [employer] Prescription Benefit: yes LNOK: Bethany Falk dtr Living Arrangements: Pt lives alone in a ground level apt with no steps to enter. Pt reports that he is typically indep in bathing and dressing himself. He gets 14 meals per week through [employer]. Pt states he has an aide through [employer] 2x/wk who does his laundry. [employer] nurse sets up his meds weekly. Transportation: Pt drives self and denies concerns with transportation. DME:shower chair, rollator, walker HHC/SNF: Pt has had HHC in the past but cannot recall name. Pt states once they found out that [place] was seeing him they quit coming. Pt has been to [facility] in the past. Pt states he would like to go to [facility] as he has been there in the past. Pt states no further concerns/needs. CM to follow. Advised pt to ask CM if any further question/concerns/needs arise, voices understanding. Pt Goal: W Plan: SNF pending acceptance and precert; SW already aware. Shani LANDRY CM
[2024-03-08 13:44] VITALS: BP 134/72; PULSE 92; RESP 16; TEMP 36.4; O2SAT 97
--- NOTE | 2024-03-08 15:23 | CHAPLAIN ---
Type of Pastoral Visit _x__ Initial Visit ___ Follow-up Visit ___ On-call Visit ___ General Patient Visit ___ Spiritual Assessment ___ Family Conference ___ Bereavement ___ Rapid Response ___ Code Blue ___ Other (describe below) Pastoral Care Referral From _x__ Patient ___ Family ___ Nurse ___ Physician ___ Manager Of Tires Sales ___ Adventure Challenge Instructor ___ Other (describe below) Sacrament/Intervention _x__ Active listening ___ Anointing ___ Tenriism ___ Bereavement ___ Communion ___ Kelsey exploration ___ ___ Life review _x__ Prayer ___ Reconciliation ___ Sacrament of Sick ___ Supportive presence ___ Wedding ___ Other (describe below) Pastoral Comments update on health; explanation of his current situation and need; request for prayer; casual conversation
[2024-03-08 16:48] LABS: Bedside Glucose 107 mg/dL (74-106)
--- NOTE | 2024-03-08 17:59 | PN.HOSP_ITS ---
Reason for Visit Reason for Visit: Diagnoses Repeated falls (03/06/24) Adult failure to thrive (03/06/24) Unspecified multiple injuries, initial encounter (03/06/24) Subjective Subjective Patient was seen and examined today, he appears comfortable and in no distress, we are currently awaiting for approval for the patient to go to a [place] facility for short-term rehab services. Objective Data Objective Data Vital Signs: Vital Signs Temp Pulse Resp BP Pulse Ox O2 Del Method 97.5 F L 92 16 134/72 H 97 Room Air 03/08/24 13:44 03/08/24 13:44 03/08/24 13:44 03/08/24 13:44 03/08/24 13:44 03/08/24 13:44 Oxygen Delivery Method Room Air Weight: 80.1 kg Body Mass Index (BMI) 23.9 Intake & Output: Intake and Output for Last 24 Hours 03/06/24 03/07/24 03/08/24 23:59 23:59 23:59 Intake Total 1300 / 1300 2700 / 2700 Output Total 800 / 800 Balance 1300 / 1300 1900 / 1900 Medical Nutrition Assessment Dietitian: Malnutrition Criteria Met Start: 03/07/24 14:53 Freq: Status: Active Protocol: Document 03/07/24 14:53 ANAIS (Rec: 03/07/24 14:54 ANAIS [id number]) Nutrition Malnutrition Evidence of Malnutrition Exists Yes Malnutrition (moderate): Acute Illness/Injury Evidenced By Suboptimal Energy Intake ( Moderate),Weight Loss (Severe) ,Physical Changes (Mild) Clinical Problem Acute Disease or Injury Related Malnutrition Etiology related to physiological changes impacting appetite and oral intakes Signs/Symptoms as evidenced by suspected oral intakes meeting less than 75% of estimated nutrient needs, significant weight loss of 5.3 % or 10lb based upon 02/02/24 weight of 187lb and some minor muscle and fat wasting noted per NFPA (temples, occular, shoulder,clavicle, etc.). Status Active Problem Recommendation Dietitian Recommendations/Changes Recommend Regular diet for liberalization as well as Glucerna 120mL 4x/day with medpass to help increase oral intakes. Will continue to follow, monitor oral intakes and modify nutrition interventions as needed. Lab / Micro Data 03/08/24 05:45 03/08/24 05:45 Labs: Laboratory Results - last 24 hr 03/07/24 22:15: POC Glucose 118 H 03/08/24 05:45: WBC 6.9, RBC 3.49 L, Hgb 9.2 L, Hct 29.4 L, MCV 84.2, MCH 26.4 L , MCHC 31.3 L, RDW Std Deviation 49.5 H, RDW Coeff of Tad 16.0 H, Plt Count 232, MPV 9.6, Immature Gran % (Auto) 0.900, Neut % (Auto) 67.8, Lymph % (Auto) 24.2, [place] % (Auto) 6.2, Eos % (Auto) 0.6, Baso % (Auto) 0.3, Absolute Neuts (auto) 4.7, Absolute Lymphs (auto) 1.67, Nucleated RBC % 0, Sodium 143, Potassium 3.6, Chloride 113 H, Carbon Dioxide 27.0, Anion Gap 4 L, BUN 20 H, Creatinine 1.19, Estim Creat Clear Calc 58.87, Est GFR (MDRD) Af Amer 77, Est GFR (MDRD) Non-Af 63, BUN/Creatinine Ratio 16.8, Glucose 104, Calcium 8.6 03/08/24 06:31: POC Glucose 99 03/08/24 11:53: POC Glucose 117 H 03/08/24 16:25: POC Glucose 107 H Physical Exam Const alert, oriented x3 and no apparent distress General Appearance: cooperative, well kempt and well developed Orientation / Consciousness: awake, oriented to person, oriented to place and oriented to time HEENT normocephalic, head/scalp atraumatic and moist oral mucous membranes Eyes PERRL, EOMs intact bilaterally and conjunctivae normal Neck supple, no JVD, thyroid normal and no carotid bruits General: trachea midline Resp normal respiratory effort, no retractions, no use of accessory muscles and clear to auscultation bilaterally Auscultation: Negative for rales, rhonchi or wheezes Cardio regular rate, regular rhythm, S1 normal heart sound, S2 normal heart sound, no murmurs, no rub and no gallops GI normal to inspection, nondistended, normoactive bowel sounds, soft to palpation, non-tender and non-distended Extremity no clubbing, cyanosis or edema Skin no rashes or lesions noted General Skin Exam: no breakdown Neuro oriented x3, CN's II-XII intact bilaterally, no focal motor deficits and no sensory deficits noted Sensorium / Orientation: awake and alert Speech: speech normal Psych affect normal Assessment & Plan Assessment/Plan (1) Frequent falls: PLAN: Plan 1. Acute debility-secondary to multiple medical problems-PT and OT will continue to see the patient, we are [place] placement in a [place] facility #2 hypokalemia-resolved at this time, potassium will be monitored as necessary #3 type 2 diabetes-patient is on sliding scale insulin with Accu-Cheks #4 schizophrenia and bipolar disorder-patient is on Lamictal, trazodone, and mirtazapine #5 essential hypertension-patient will remain on losartan #6 hyperlipidemia-patient is on a statin and fenofibrate Total clinical time spent by myself addressing the patient's medical issues, reviewing all of his data, and collaborating with patient's care team: 35 minutes Charges/Coding Visit Charges Inpatient E&M: 62534 Subs Hosp L2
[2024-03-08 19:20] VITALS: PULSE 86; RESP 18; O2SAT 96
[2024-03-08] MEDS: Albuterol 2.5 MG/3 ML VIAL.NEB. INHALATION (19:23)
[2024-03-08 20:20] VITALS: BP 108/59; PULSE 96; RESP 17; TEMP 36.8; O2SAT 97
[2024-03-08] MEDS: Acetaminophen 325 MG Tablet 650 MG PO (20:30)
[2024-03-08] MEDS: oxyCODONE 5 MG Tablet PO (20:30)
[2024-03-08] MEDS: traZODone 50 MG Tablet 150 MG PO (22:54)
[2024-03-08] MEDS: Tamsulosin HCl 0.4 MG Capsule PO (22:54)
[2024-03-08] MEDS: Pramipexole Di-HCl 0.25 MG Tablet PO (22:55)
[2024-03-08] MEDS: Mirtazapine 30 MG Tablet PO (22:55)
[2024-03-08] MEDS: OLANZapine 10 MG Tablet PO (22:55)
[2024-03-08] MEDS: Atorvastatin Calcium 40 MG Tablet PO (22:55)
[2024-03-08 23:17] LABS: Bedside Glucose 110 mg/dL (74-106)
[2024-03-09 02:34] VITALS: BP 104/69; PULSE 66; RESP 14; TEMP 36.7; O2SAT 97
[2024-03-09 06:00] VITALS: BMI 23.8
[2024-03-09] MEDS: Dicyclomine 10 MG Capsule 20 MG PO ×3 (06:41→20:19)
[2024-03-09 06:59] LABS: Bedside Glucose 100 mg/dL (74-106)
[2024-03-09 07:02] VITALS: PULSE 74; RESP 20; O2SAT 99
[2024-03-09] MEDS: Budesonide Respules 0.5 MG/2 ML AMPUL.NEB. INHALATION ×2 (07:02→19:39)
[2024-03-09] MEDS: Albuterol 2.5 MG/3 ML VIAL.NEB. INHALATION ×2 (07:02→19:39)
[2024-03-09 07:32] VITALS: BP 120/73; PULSE 73; RESP 16; TEMP 36.6; O2SAT 96
[2024-03-09] MEDS: Ferrous Sulfate 325 MG Tablet PO (07:40)
--- NOTE | 2024-03-09 09:25 | CASEMGMT ---
Social Work- SW received notice of acceptance at [facility]; precert started. ROSALEE Lindsay
[2024-03-09] MEDS: Budesonide 3 MG CAPSULE.EC 9 MG PO (10:40)
[2024-03-09] MEDS: Donepezil HCl 10 MG Tablet PO (10:40)
[2024-03-09] MEDS: MESALAMINE 400 MG CAPSULE.DR 1600 MG PO ×2 (10:41→20:38)
[2024-03-09] MEDS: Losartan Potassium 50 MG Tablet PO ×2 (10:41→20:19)
[2024-03-09] MEDS: Loratadine 10 MG Tablet PO (10:41)
[2024-03-09] MEDS: Potassium Chloride Oral Tablet 20 MEQ PO (10:42)
[2024-03-09] MEDS: Furosemide 20 MG Tablet PO (10:42)
[2024-03-09] MEDS: lamoTRIgine 100 MG Tablet 200 MG PO (10:42)
[2024-03-09] MEDS: Famotidine 20 MG Tablet PO (10:42)
[2024-03-09] MEDS: Fenofibrate 48 MG Tablet PO (10:43)
[2024-03-09] MEDS: Clopidogrel Bisulfate 75 MG Tablet PO (10:43)
[2024-03-09] MEDS: Glucerna Shake 120 ML LIQUID PO ×3 (10:49→20:33)
[2024-03-09 12:02] LABS: Bedside Glucose 108 mg/dL (74-106)
--- NOTE | 2024-03-09 13:31 | CASEMGMT ---
Discharge Planning [facility] has obtained auth to admit. Damaris Cassidy DC Planning Asst.
[2024-03-09 14:04] VITALS: BP 126/69; PULSE 98; RESP 16; TEMP 36.6; O2SAT 97
--- NOTE | 2024-03-09 14:33 | TREXTCAR_ITS ---
Diet Diet Order/Speech Therapy: 03/07/24 14:55 Diet: Regular - General Routine Orders/Code Status Routine Lab Work: CBC (In 1 week) Code Status: Full Code DC O2, CPAP, BIPAP needs Home O2 Discharge instructions: No Problem/Diagnosis (1) Frequent falls: Status: Acute Code(s): R29.6 - Repeated falls (2) Chronic right shoulder pain: Status: Chronic Code(s): M25.511 - Pain in right shoulder; G89.29 - Other chronic pain Plan 1. Acute debility-secondary to multiple medical problems-PT and OT will continue to see the patient, we are awaiting placement in a shelter facility #2 hypokalemia-resolved at this time, potassium will be monitored as necessary #3 type 2 diabetes-patient is on sliding scale insulin with Accu-Cheks #4 schizophrenia and bipolar disorder-patient is on Lamictal, trazodone, and mirtazapine #5 essential hypertension-patient will remain on losartan #6 hyperlipidemia-patient is on a statin and fenofibrate #7 acute moderate protein and caloric malnutrition-related to physiological changes impacting appetite and oral intake as evidenced by suspected oral intakes meeting less than 75% of estimated nutritional needs, significant weight loss of 5.3% or 10 pounds based upon 02/02/2024 weight of 187 pounds Total clinical time spent by myself addressing the patient's medical issues, reviewing all of his data, and collaborating with patient's care team: 35 minutes Allergies/Procedures Done in Hospital Allergies Quinolones Allergy (Unknown, Verified 03/06/24 11:19) unknown aspirin Allergy (Verified 03/06/24 11:19) Itching, Hives levofloxacin (From Levaquin) Allergy (Verified 03/06/24 11:19) Hives, Itching Penicillins Allergy (Verified 03/06/24 11:19) Hives, Itching Type of Care/Length of Stay Estimated LOS: Convalescent Care Less Than 30 days Type of Care Needed: Skilled Rehab Potential: Good Prognosis: Good Additional Orders/Day of Discharge Day of Discharge: 03/09/24 Dietary and Speech Recommendations Dietitian Recommendations/Changes: Recommend Regular diet for liberalization as well as Glucerna 120mL 4x/day with medpass to help increase oral intakes. Will continue to follow, monitor oral intakes and modify nutrition interventions as needed. Discharge Plan Admission Admit Date/Time: 03/06/24 16:06 Primary Reason for Your Visit: debility Attending Provider: Eliel Pulido Primary Care Provider: Eliel Mosley [facility] Consulting Providers: Margo Sawyer; Cora Umaña; Eliel Pulido Discharge Orders/Prescriptions Prescriptions: New albuterol sulfate 2.5 mg /3 mL (0.083 %) Solution For Nebulization 2.5 mg inhalation Q2H PRN PRN (Reason: Dyspnea, wheezing) Qty: 0 0RF oxycodone 5 mg Tablet 5 mg PO Q4H PRN PRN (Reason: Pain Score 4-10) 2 Days Qty: 6 0RF Glucerna 1.2 Morgan 0.06-1.2 gram-kcal/mL Liquid 120 ml PO 4X/DAY Qty: 0 0RF menthol-zinc oxide [Calmoseptine] 0.44-20.6 % Ointment 1 applic topical 4X/DAY Qty: 0 0RF Protocol: *Topical Application Instructions APPLICATION INSTRUCTIONS: apply to affected region Continued icosapent ethyl [Vascepa] 1 gram capsule 2 g PO BID baclofen 10 mg tablet 10 mg PO TID PRN (Reason: PAIN) olanzapine [Zyprexa] 10 mg tablet 10 mg PO QHS donepezil 10 mg tablet 10 mg PO DAILY lamotrigine [Lamictal] 200 mg tablet 200 mg PO DAILY Breztri Aerosphere 160-9-4.8 mcg/actuation HFA aerosol inhaler 2 inh inhalation BID Qty: 10.7 11RF budesonide 3 mg capsule,delayed,extend.release 9 mg PO QDAY losartan 50 mg tablet 50 mg PO BID mirtazapine 30 mg tablet 30 mg PO QHS aripiprazole 10 mg tablet 10 mg PO QDAY fenofibrate 54 mg tablet 54 mg PO DAILY fexofenadine [Jeaneth Allergy] 180 mg tablet 180 mg PO QDAY ropinirole 0.5 MG tablet 0.5 mg PO QHS tamsulosin 0.4 MG capsule,extended release 24hr 0.4 mg PO QHS dicyclomine 20 mg tablet 20 mg PO TID potassium chloride 20 mEq tablet,ER particles/crystals 20 meq PO DAILY ondansetron 4 mg tablet,disintegrating 4 mg PO TID PRN (Reason: NAUSEA ) mesalamine 0.375 gram capsule,extended release 24hr 1.5 g PO BID ferrous sulfate 325 mg (65 mg iron) tablet 325 mg PO DAILY furosemide [Lasix] 20 mg tablet 20 mg PO DAILY acetaminophen 500 mg Tablet 1,000 mg PO Q8 PRN (Reason: pain) trazodone 150 mg tablet 150 mg PO QHS atorvastatin 40 mg tablet 40 mg PO QHS Qty: 90 3RF Eliquis 5 mg tablet 5 mg PO BID Qty: 60 2RF famotidine 20 mg tablet 20 mg PO BID 90 Days Qty: 180 1RF clopidogrel 75 mg tablet 75 mg PO DAILY Qty: 30 11RF Discontinued loratadine 10 mg tablet 10 mg PO QDAY albuterol sulfate 2.5 mg /3 mL (0.083 %) solution for nebulization 2.5 mg INHALATION Q8H PRN (Reason: shortness of breath or wheezing) Patient Comments: pt states he uses 4-5 times daily albuterol sulfate 90 mcg/actuation HFA aerosol inhaler 2 puff INHALATION Q6H PRN (Reason: Shortness Of Breath) nitroglycerin [Nitrostat] 0.4 mg tablet, sublingual 0.4 mg sublingual Q5-15M PRN (Reason: chest pain) Qty: 25 3RF Rx Instructions: do not exceed 3 doses per episode Referrals / Follow Up: Eliel Mosley Angelito, R DEVELOPER-C [Primary Care Provider] - Disposition Disposition (needs filled in before D/C Order can be placed): Senior Living Facility
--- NOTE | 2024-03-09 15:44 | DS.PCM_ITS ---
Providers Date of Admission: 03/06/24 Date of Discharge: 03/09/24 Primary Care Physician: GAURAV Walden Reason For Visit: FALLS, ADULT FTT Diagnosis Discharge Diagnosis (1) Frequent falls: Status: Acute Code(s): R29.6 - Repeated falls (2) Chronic right shoulder pain: Status: Chronic Code(s): M25.511 - Pain in right shoulder; G89.29 - Other chronic pain Plan 1. Acute debility-secondary to multiple medical problems-PT and OT will continue to see the patient, we are awaiting placement in a half-way facility #2 hypokalemia-resolved at this time, potassium will be monitored as necessary #3 type 2 diabetes-patient is on sliding scale insulin with Accu-Cheks #4 schizophrenia and bipolar disorder-patient is on Lamictal, trazodone, and mirtazapine #5 essential hypertension-patient will remain on losartan #6 hyperlipidemia-patient is on a statin and fenofibrate #7 acute moderate protein and caloric malnutrition-related to physiological changes impacting appetite and oral intake as evidenced by suspected oral intakes meeting less than 75% of estimated nutritional needs, significant weight loss of 5.3% or 10 pounds based upon 02/02/2024 weight of 187 pounds Total clinical time spent by myself addressing the patient's medical issues, reviewing all of his data, and collaborating with patient's care team: 35 minutes Medications at Discharge Home Medications ropinirole 0.5 mg tablet 0.5 mg PO QHS RESTLESS LEGS 04/23/16 tamsulosin 0.4 mg capsule 0.4 mg PO QHS PROSTATE 01/30/17 baclofen 10 mg tablet 10 mg PO TID PRN PAIN 11/09/20 icosapent ethyl 1 gram capsule (Vascepa) 2 g PO BID HEART 11/09/20 donepezil 10 mg tablet 10 mg PO DAILY ALZHEIMERS 10/23/21 lamotrigine 200 mg tablet (Lamictal) 200 mg PO DAILY MOOD 10/23/21 olanzapine 10 mg tablet (Zyprexa) 10 mg PO QHS MOOD 10/23/21 budesonide 160 mcg-glycopyr 9 mcg-formot 4.8 mcg/actuation HFA inhaler (Breztri Aerosphere) 2 inh inhalation BID COPD #10.7 grams 01/28/23 dicyclomine 20 mg tablet 20 mg PO TID IRRITABLE BOWELS 04/15/23 ondansetron 4 mg disintegrating tablet 4 mg PO TID PRN NAUSEA 04/15/23 potassium chloride 20 mEq tablet,extended release(part/cryst) 20 meq PO DAILY SUPPLEMENT 04/15/23 atorvastatin 40 mg tablet 40 mg PO QHS CHOLESTEROL #90 tabs 06/24/23 mesalamine 0.375 gram capsule,extended release 24 hr 1.5 g PO BID 07/10/23 ferrous sulfate 325 mg (65 mg iron) tablet 325 mg PO DAILY 09/02/23 furosemide 20 mg tablet (Lasix) 20 mg PO DAILY 09/02/23 budesonide 3 mg capsule,delayed,extended release 9 mg PO QDAY 10/13/23 aripiprazole 10 mg tablet 10 mg PO QDAY 11/19/23 fenofibrate 54 mg tablet 54 mg PO DAILY 11/19/23 losartan 50 mg tablet 50 mg PO BID 11/19/23 mirtazapine 30 mg tablet 30 mg PO QHS 11/19/23 fexofenadine 180 mg tablet (Jeaneth Allergy) 180 mg PO QDAY 12/18/23 apixaban 5 mg tablet (Eliquis) 5 mg PO BID #60 tabs 12/30/23 famotidine 20 mg tablet 20 mg PO BID 3 months #180 tabs 12/31/23 clopidogrel 75 mg tablet 75 mg PO DAILY BLOOD THINNER #30 tabs 01/15/24 acetaminophen 500 mg tablet 1,000 mg PO Q8 PRN pain 03/06/24 trazodone 150 mg tablet 150 mg PO QHS 03/06/24 albuterol sulfate 2.5 mg/3 mL (0.083 %) solution for nebulization 2.5 mg (3 mL) inhalation Q2H PRN PRN Dyspnea, wheezing #0 mL 03/09/24 menthol 0.44 %-zinc oxide 20.6 % topical ointment (Calmoseptine) 1 applic topical 4X/DAY #0 grams 03/09/24 nutrition tx glu intol,lac-free,soy-fiber 0.06 gram-1.2 kcal/mL liquid (Glucerna 1.2 Morgan) 120 ml PO 4X/DAY #0 mL 03/09/24 oxycodone 5 mg tablet 5 mg PO Q4H PRN PRN Pain Score 4-10 2 days #6 tabs 03/09/24 Hospital Course Operations None Procedures None Summary of Care Provided Minutes Spent on Discharge: 31 Hospital Course: This 73-year-old white male was seen in the emergency room at [facility] after suffering mechanical fall 2 days prior. Patient complained of pain to both knees, right elbow, right shoulder, left ribs, left lower back, abdomen and left hip. Patient states that he does not feel he can take care of himself at home and he needs to be admitted to the hospital. Patient's medical problems include osteoarthritis, COPD, and schizophrenia. Labs obtained showed a normal white blood cell count, hemoglobin was 10, chemistry panel was remarkable for creatinine of 1.65, BUN of 30, and a potassium of 3.4. Imaging studies did not show any acute process. Patient was admitted to [place] [address] and seen in consultation by PT and OT, it was recommended the patient go into half-way at an extended care facility for further care. No major medical issues were encountered during his hospital stay. On 03/09/2024, patient was seen and examined:alert, oriented x3 and no apparent distress General Appearance: cooperative, well kempt and well developed Orientation / Consciousness: awake, oriented to person, oriented to place and oriented to time HEENT normocephalic, head/scalp atraumatic and moist oral mucous membranes Eyes PERRL, EOMs intact bilaterally and conjunctivae normal Neck supple, no JVD, thyroid normal and no carotid bruits General: trachea midline Resp normal respiratory effort, no retractions, no use of accessory muscles and clear to auscultation bilaterally Auscultation: Negative for rales, rhonchi or wheezes Cardio regular rate, regular rhythm, S1 normal heart sound, S2 normal heart sound, no murmurs, no rub and no gallops GI normal to inspection, nondistended, normoactive bowel sounds, soft to palpation, non-tender and non-distended Extremity no clubbing, cyanosis or edema Skin no rashes or lesions noted General Skin Exam: no breakdown Neuro oriented x3, CN's II-XII intact bilaterally, no focal motor deficits and no sensory deficits noted Sensorium / Orientation: awake and alert Speech: speech normal Psych affect normal Patient was transferred to a half-way facility on 03/09/2024 in stable condition Medical Records Data Medical Nutrition Assessment Dietitian: Malnutrition Criteria Met Start: 03/07/24 14:53 Freq: Status: Active Protocol: Document 03/07/24 14:53 ANAIS (Rec: 03/07/24 14:54 ANAIS [id number]) Nutrition Malnutrition Evidence of Malnutrition Exists Yes Malnutrition (moderate): Acute Illness/Injury Evidenced By Suboptimal Energy Intake ( Moderate),Weight Loss (Severe) ,Physical Changes (Mild) Clinical Problem Acute Disease or Injury Related Malnutrition Etiology related to physiological changes impacting appetite and oral intakes Signs/Symptoms as evidenced by suspected oral intakes meeting less than 75% of estimated nutrient needs, significant weight loss of 5.3 % or 10lb based upon 02/02/24 weight of 187lb and some minor muscle and fat wasting noted per NFPA (temples, occular, shoulder,clavicle, etc.). Status Active Problem Recommendation Dietitian Recommendations/Changes Recommend Regular diet for liberalization as well as Glucerna 120mL 4x/day with medpass to help increase oral intakes. Will continue to follow, monitor oral intakes and modify nutrition interventions as needed. Weight / BMI Weight Weight: 80 kg Body Mass Index (BMI) 23.8 ABG / Lab / Microbiology Data 03/08/24 05:45 03/08/24 05:45 Laboratory: Laboratory Results - last 24 hr 03/08/24 16:25: POC Glucose 107 H 03/08/24 22:46: POC Glucose 110 H 03/09/24 06:40: POC Glucose 100 03/09/24 11:44: POC Glucose 108 H Microbiology: Microbiology 03/07/24 13:46 Urine, Clean Catch Urine Culture - Final Mixed Gram Positive Organisms D/C Instructions DC O2, CPAP, BIPAP Needs Home O2 Discharge instructions: No Meaningful Use Info Meaningful Use Meaningful Use Diagnoses (Choose all that apply): None applicable Ischemic Stroke Statin Dosing Therapy Reference: STATIN DOSE THERAPY REFERENCE: * Patients > 75 years receive moderate or high dose statin therapy. * Patients 75 years or YOUNGER should receive HIGH intensity statin dose unless contraindicated. You will be required to document reason for non-treatment if statin daily dose does not meet guidelines. HIGH DOSE STATIN THERAPY DAILY Atorvastatin > than or = to 40 mg Rosuvastatin > than or = to 20 mg Amlodipine + Atorvastatin > than or = to 2.5/40 mg Ezetimibe + Simvastatin 10/80 mg Simvastatin 80mg Discharge Plan Admission Admit Date/Time: 03/06/24 16:06 Primary Reason for Your Visit: debility Attending Provider: Eliel Pulido Primary Care Provider: Eliel Mosley [facility] Consulting Providers: Margo Sawyer; Cora Umaña; Eliel Pulido Discharge Orders/Prescriptions Prescriptions: New albuterol sulfate 2.5 mg /3 mL (0.083 %) Solution For Nebulization 2.5 mg inhalation Q2H PRN PRN (Reason: Dyspnea, wheezing) Qty: 0 0RF oxycodone 5 mg Tablet 5 mg PO Q4H PRN PRN (Reason: Pain Score 4-10) 2 Days Qty: 6 0RF Glucerna 1.2 Morgan 0.06-1.2 gram-kcal/mL Liquid 120 ml PO 4X/DAY Qty: 0 0RF menthol-zinc oxide [Calmoseptine] 0.44-20.6 % Ointment 1 applic topical 4X/DAY Qty: 0 0RF Protocol: *Topical Application Instructions APPLICATION INSTRUCTIONS: apply to affected region Continued icosapent ethyl [Vascepa] 1 gram capsule 2 g PO BID baclofen 10 mg tablet 10 mg PO TID PRN (Reason: PAIN) olanzapine [Zyprexa] 10 mg tablet 10 mg PO QHS donepezil 10 mg tablet 10 mg PO DAILY lamotrigine [Lamictal] 200 mg tablet 200 mg PO DAILY Breztri Aerosphere 160-9-4.8 mcg/actuation HFA aerosol inhaler 2 inh inhalation BID Qty: 10.7 11RF budesonide 3 mg capsule,delayed,extend.release 9 mg PO QDAY losartan 50 mg tablet 50 mg PO BID mirtazapine 30 mg tablet 30 mg PO QHS aripiprazole 10 mg tablet 10 mg PO QDAY fenofibrate 54 mg tablet 54 mg PO DAILY fexofenadine [Jeaneth Allergy] 180 mg tablet 180 mg PO QDAY ropinirole 0.5 MG tablet 0.5 mg PO QHS tamsulosin 0.4 MG capsule,extended release 24hr 0.4 mg PO QHS dicyclomine 20 mg tablet 20 mg PO TID potassium chloride 20 mEq tablet,ER particles/crystals 20 meq PO DAILY ondansetron 4 mg tablet,disintegrating 4 mg PO TID PRN (Reason: NAUSEA ) mesalamine 0.375 gram capsule,extended release 24hr 1.5 g PO BID ferrous sulfate 325 mg (65 mg iron) tablet 325 mg PO DAILY furosemide [Lasix] 20 mg tablet 20 mg PO DAILY acetaminophen 500 mg Tablet 1,000 mg PO Q8 PRN (Reason: pain) trazodone 150 mg tablet 150 mg PO QHS atorvastatin 40 mg tablet 40 mg PO QHS Qty: 90 3RF Eliquis 5 mg tablet 5 mg PO BID Qty: 60 2RF famotidine 20 mg tablet 20 mg PO BID 90 Days Qty: 180 1RF clopidogrel 75 mg tablet 75 mg PO DAILY Qty: 30 11RF Discontinued loratadine 10 mg tablet 10 mg PO QDAY albuterol sulfate 2.5 mg /3 mL (0.083 %) solution for nebulization 2.5 mg INHALATION Q8H PRN (Reason: shortness of breath or wheezing) Patient Comments: pt states he uses 4-5 times daily albuterol sulfate 90 mcg/actuation HFA aerosol inhaler 2 puff INHALATION Q6H PRN (Reason: Shortness Of Breath) nitroglycerin [Nitrostat] 0.4 mg tablet, sublingual 0.4 mg sublingual Q5-15M PRN (Reason: chest pain) Qty: 25 3RF Rx Instructions: do not exceed 3 doses per episode Referrals / Follow Up: Eliel Mosley Angelito, [employer] [Primary Care Provider] - Disposition Disposition (needs filled in before D/C Order can be placed): Group Home Facility Charges/Coding Visit Charges Inpatient E&M: 40879 Disch Hosp >30min
[2024-03-09 16:52] LABS: Bedside Glucose 117 mg/dL (74-106)
[2024-03-09 19:40] VITALS: PULSE 79; RESP 18; O2SAT 97
[2024-03-09] MEDS: oxyCODONE 5 MG Tablet PO (20:18)
[2024-03-09] MEDS: Tamsulosin HCl 0.4 MG Capsule PO (20:19)
[2024-03-09] MEDS: Acetaminophen 325 MG Tablet 650 MG PO (20:19)
[2024-03-09] MEDS: traZODone 50 MG Tablet 150 MG PO (20:19)
[2024-03-09] MEDS: Pramipexole Di-HCl 0.25 MG Tablet PO (20:19)
[2024-03-09 20:30] VITALS: BP 131/80; PULSE 87; RESP 18; TEMP 36.5; O2SAT 95
[2024-03-09] MEDS: Atorvastatin Calcium 40 MG Tablet PO (20:33)
[2024-03-09] MEDS: OLANZapine 10 MG Tablet PO (20:38)
[2024-03-09] MEDS: Mirtazapine 30 MG Tablet PO (20:38)
[2024-03-09 21:01] LABS: Bedside Glucose 111 mg/dL (74-106)
--- NOTE | 2024-03-09 23:13 | NURSING ---
[facility] no answer to give report left message to call [facility] back
== END 2024-03-10 02:10 | disposition skilled nursing facility (03) | DRG 641 ==
LOC: ED 16:09 → MS3 16:19
PROVIDERS: Nurse Practitioner; Student in an Organized Health Care Education/Training Program; Admitting Provider Family Medicine; Emergency Provider Emergency Medicine; PCP Nurse Practitioner Family; Visit Provider Internal Medicine
DX: R62.7 Adult failure to thrive (principal); E44.0 Moderate protein-calorie malnutrition; F03.92 Unspecified dementia, unspecified severity, with psychotic disturbance; S06.9XAA Unspecified intracranial injury with loss of consciousness status unknown, initial encounter; N13.8 Other obstructive and reflux uropathy; I13.0 Hypertensive heart and chronic kidney disease with heart failure and stage 1 through stage 4 chronic kidney disease, or unspecified chronic kidney disease; I50.32 Chronic diastolic (congestive) heart failure; F03.94 Unspecified dementia, unspecified severity, with anxiety; F03.93 Unspecified dementia, unspecified severity, with mood disturbance; E86.0 Dehydration; J44.9 Chronic obstructive pulmonary disease, unspecified; E11.22 Type 2 diabetes mellitus with diabetic chronic kidney disease; M06.9 Rheumatoid arthritis, unspecified; F12.20 Cannabis dependence, uncomplicated; G25.81 Restless legs syndrome; D50.9 Iron deficiency anemia, unspecified; K27.9 Peptic ulcer, site unspecified, unspecified as acute or chronic, without hemorrhage or perforation; N18.2 Chronic kidney disease, stage 2 (mild); E78.00 Pure hypercholesterolemia, unspecified; I25.10 Atherosclerotic heart disease of native coronary artery without angina pectoris; M19.011 Primary osteoarthritis, right shoulder; M17.0 Bilateral primary osteoarthritis of knee; K21.9 Gastro-esophageal reflux disease without esophagitis; M43.02 Spondylolysis, cervical region; M54.12 Radiculopathy, cervical region; S80.211A Abrasion, right knee, initial encounter; W19.XXXA Unspecified fall, initial encounter; S80.02XA Contusion of left knee, initial encounter; S20.212A Contusion of left front wall of thorax, initial encounter; E87.6 Hypokalemia; G47.33 Obstructive sleep apnea (adult) (pediatric); M25.511 Pain in right shoulder; M25.521 Pain in right elbow; I25.2 Old myocardial infarction; N40.1 Benign prostatic hyperplasia with lower urinary tract symptoms; Y92.009 Unspecified place in unspecified non-institutional (private) residence as the place of occurrence of the external cause; G89.29 Other chronic pain; Z95.5 Presence of coronary angioplasty implant and graft; Z88.0 Allergy status to penicillin; Z88.1 Allergy status to other antibiotic agents; Z91.81 History of falling; Z79.01 Long term (current) use of anticoagulants; Z90.49 Acquired absence of other specified parts of digestive tract; Z79.02 Long term (current) use of antithrombotics/antiplatelets; Z96.611 Presence of right artificial shoulder joint; Z68.23 Body mass index [BMI] 23.0-23.9, adult; Z87.891 Personal history of nicotine dependence; Z86.711 Personal history of pulmonary embolism; Z79.899 Other long term (current) drug therapy; Z86.718 Personal history of other venous thrombosis and embolism; Z91.199 Patient's noncompliance with other medical treatment and regimen due to unspecified reason
CPT/HCPCS: 36415; 70450; 71260; 72125; 73030; 73080; 73564; 74177; 80048; 80053; 80307; 81001; 82550; 82962; 83036; 83735; 85025; 87086; 87088; 93005; 94640; 94668; 97116; 97162; 97165; 97535; 97802; 99284; Q9967; A4216

== ENCOUNTER → 2024-03-29 | Outpatient (REF) | payer MEDICARE, MEDICAID, SELFPAY ==
[2023-09-09 09:43] VITALS: BMI 21.8
[2024-03-29 08:48] LABS: Absolute Lymphocyte Count 2.06 X10^3/uL (0.83-4.51); Absolute Neutrophil Count 5.9 X10^3/uL (2.0-7.7); Basophil# 0.04 X10^3/uL; Basophil% 0.5 % (0-1); Eosinophil# 0.06 X10^3/uL; Eosinophils% 0.7 % (0-5); Hemoglobin 9.4 g/dL (13.0-16.5); Lymphocyte # 2.06 X10^3/ul (0.83-4.51); Lymphocyte % 23.6 % (19-41); Mean Corp Hgb Conc 31.3 g/dL (32-36); Mean Corpuscular Hgb 27.2 pg (27.0-32.0); Mean Platelet Vol. 9.7 fl (6.2-12.0); Monocyte# 0.57 X10^3/uL; Monocyte% 6.5 % (0-10); NRBC Flagged by Analyzer 0 % (0-5); Neutrophil # 5.88 X10^3/uL (2.7-7.7); Neutrophil % 67.2 % (47-70); Platelet Count 215 K/mm3 (150-450); RBC Distribution Width CV 15.9 % (11.6-14.6); RBC Distribution Width SD 50.1 fl (35.1-43.9); Red Blood Count 3.45 M/mm3 (4.6-6.2); White Blood Count 8.7 K/mm3 (4.4-11.0)
[2024-03-29 09:01] LABS: Anion Gap 5 (5-15); BUN 22 mg/dL (7-18); BUN/Creat Ratio 16.2 RATIO (10-20); Calcium,Total 8.7 mg/dL (8.5-10.1); Chloride 112 mmol/L (98-107); Creatinine, Serum 1.36 mg/dL (0.70-1.30); EST Glomerular Filtration Rate 54 mL/min (>60); Est Glom Filt Rate - Afr Amer 66 mL/min (>60); Glucose 109 mg/dL (74-106); Potassium 3.8 mmol/L (3.5-5.1); Sodium Level 142 mmol/L (136-145)
== END ==
LOC: OLS.WHLEAS 06:16
PROVIDERS: PCP Nurse Practitioner Family; Visit Provider Internal Medicine
DX: E11.22 Type 2 diabetes mellitus with diabetic chronic kidney disease (principal); N18.9 Chronic kidney disease, unspecified
CPT/HCPCS: 36415; 80048; 85025

== ENCOUNTER → 2024-03-30 | Outpatient (CLI) | payer MEDICARE, MEDICAID, SELFPAY ==
[2023-09-09 09:43] VITALS: BMI 21.8
--- NOTE | 2024-03-30 08:10 | CT_ITS ---
CT LEFT LOWER EXTREMITY WITH 3-D IMAGING CLINICAL INDICATION: templating for left TKA. Imaging of the left hip, left knee and left ankle were obtained. TECHNIQUE: Axial CT images of the LEFT lower extremity was performed without IV contrast material. Coronal and sagittal reformats as well as 3D reformats were provided. The protocol utilizes one or more of the following dose reduction techniques: automated exposure control, adjustment of mA and/or kV according to patient size,and/or use of iterative reconstruction technique. RADIATION DOSAGE (If Supplied By Facility): CTDIvol = ( 18.75 ) mGy, DLP = ( 1401.3 ) mGycm COMPARISON: No relevant prior comparison study available FINDINGS: Bones: There is evidence of a osteoarthritis of the sacroiliac joints more prominent on the left side. Mild degree of the joint space narrowing of the left hip. Imaging of the knee joint was obtained. There is a moderate degree of disc space narrowing involving the medial compartment of knee joint. Mild degree of joint space narrowing involving the patellofemoral joint. There is a 1.5 cm well-corticated bony fragment in the posterior knee joint. This might represent a joint mouse. Imaging of the ankle joint was obtained. There is evidence of a plantar spur. Soft Tissues: The deep soft tissue structures are unremarkable. The superficial soft tissues are unremarkable without evidence of edema, hematoma, or foreign body. CT/Extremity Lower without Contra IMPRESSION: Moderate degree of joint space narrowing involving the medial compartment of the joint. 1.5 cm well-corticated bony fragment in the posterior knee joint suggestive of a joint mouse. Electronically Signed: Jimmy Mathew MD at 14:54 EST ,
== END | disposition home or self-care (01) ==
PROVIDERS: PCP Nurse Practitioner Family; Referring Provider Orthopaedic Surgery; Visit Provider Orthopaedic Surgery
DX: M17.12 Unilateral primary osteoarthritis, left knee (principal)
CPT/HCPCS: 73700

== ENCOUNTER → 2024-03-31 05:00 | Outpatient (REF) | payer MEDICARE, MEDICAID, SELFPAY ==
[2023-09-09 09:43] VITALS: BMI 21.8
[2024-03-31 07:16] LABS: Anion Gap 6 (5-15); BUN 22 mg/dL (7-18); Calcium,Total 8.5 mg/dL (8.5-10.1); Chloride 110 mmol/L (98-107); Creatinine, Serum 1.22 mg/dL (0.70-1.30); EST Glomerular Filtration Rate 61 mL/min (>60); Est Glom Filt Rate - Afr Amer 74 mL/min (>60); Glucose 102 mg/dL (74-106); Potassium 3.8 mmol/L (3.5-5.1); Sodium Level 141 mmol/L (136-145)
[2024-03-31 07:21] LABS: International Normalized Ratio 1.1; Prothrombin Time (Protime)PT. 14.7 SECONDS (11.7-14.9)
[2024-03-31 07:53] LABS: Hemoglobin A1c 5.9 % (3.8-5.6)
[2024-04-01 04:07] LABS: Fructosamine 205 umol/L (0-285)
== END ==
LOC: OLS.WHLEAS 05:00
PROVIDERS: PCP Nurse Practitioner Family; Visit Provider Internal Medicine
DX: M06.9 Rheumatoid arthritis, unspecified (principal); E87.6 Hypokalemia; M62.561 Muscle wasting and atrophy, not elsewhere classified, right lower leg; R62.7 Adult failure to thrive
CPT/HCPCS: 36415; 80048; 82985; 83036; 83735; 85610; 87081

== ENCOUNTER 2024-04-13 09:56 | Inpatient (IN) | payer MEDICARE, MEDICAID, SELFPAY ==
[2023-09-09 09:43] VITALS: BMI 21.8
--- NOTE | 2024-03-30 16:53 | PAT.ANE_ITS ---
Pre-Assessment Diagnosis/Proposed Procedure Planned Operative Procedure(s): (L) Left Total Knee Replacement Robotic Arm Assisted Anesthesia History Anesthesia History - chief power dispatcher: Anesthesia History - chief power dispatcher Hx Hospitalization No 03/30/24 11:14 Any Problems With Anesthesia No 03/30/24 11:14 Cholinesterase deficiency No 03/30/24 11:14 You/Your Family Experience No 03/30/24 11:14 fever (hyperthermia) with Relationship Recent Exposure to Contagious No 09/09/23 09:43 Disease Does patient have nerve No 03/30/24 11:14 stimulator Patient instructed to have device shut off --Does patient have Pacemaker or ICD? When Was Last Pacemaker Check QUESTION #4 FULL TEXT: You/Your Family Experience fever (hyperthermia) with Anesthesia Last Oral Intake Last Oral intake: Last Oral Intake NPO since Meds taken in AM with sips of water? 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 - chief power dispatcher: PONV - chief power dispatcher Female No 03/30/24 11:14 HX of Motion Sickness No 03/30/24 11:14 HX of N/V After Surgery No 03/30/24 11:14 Non-Smoker Yes 03/30/24 11:14 Duration of Surgery greater Yes 03/30/24 11:14 than 60 minutes Number of Risk Factors 2 03/30/24 11:14 PONV Score Moderate Risk 03/30/24 11:14 Height & Weight Height & Weight: Anesthesia: Height & Weight Height 6 ft 03/07/24 14:16 Respiratory Assessment Respiratory Assessment - chief power dispatcher: Respiratory Tract Infection Hx - chief power dispatcher Hx Respiratory Tract Infection No 03/30/24 11:14 STOP Sleep Apnea STOP Sleep Apnea - chief power dispatcher: STOP Sleep Apnea - chief power dispatcher Hx Hypertension Yes 03/30/24 11:14 Hx Sleep Apnea Yes: NON-COMPLIANT 03/30/24 11:14 CPAP No 03/30/24 11:14 BIPAP No 03/30/24 11:14 Do you snore loudly (louder than talking or can be heard Do you often feel tired/ fatigued/ sleepy during daytime? Has anyone observed you stop breathing during sleep? STOP Results Positive 03/30/24 11:14 QUESTION #5 FULL TEXT : Do you snore loudly (louder than talking or can be heard through closed doors)? Tobacco Use History Tobacco Use History - chief power dispatcher: Tobacco Use History - chief power dispatcher Tobacco Use Non-smoker 09/09/23 09:43 Smoking Status Former smoker 03/30/24 11:14 Hx Tobacco Use No 03/30/24 11:14 Years Smoking Packs Smoked per Day Smoking Cessation Date was No - quit smoking greater 03/30/24 11:14 within the last 15 years than 15 years ago Hx Smoking Cessation Date 03/17/12 03/30/24 11:14 Hx Smoking Cessation No 03/30/24 11:14 Counseling Hematologic Medial History Hematologic Hx - chief power dispatcher: Hematologic Medical Hx - candy cutter hand Hx of Blood Transfusion Yes 03/30/24 11:14 Hx of Transfusion in last 3 No 03/30/24 11:14 Months Date of Last Transfusion (if within last 3 months) Ever experience any problems No 03/30/24 11:14 with transfusion(s)? Specify any problems Hx of Preganancy in last 3 N/A 03/30/24 11:14 Months Nurse Filling Out Transfusion VCHRISTIN 03/30/24 11:14 & Questions: Date: 03/30/24 03/30/24 11:14 Time: 11:16 03/30/24 11:14 Patient unable to answer at this time (ie. confused, unrespo /Reproduction History /Reproductive History - chief power dispatcher: /Reproductive Hx- chief power dispatcher Hx Now No 03/30/24 11:14 Gestational Age (in weeks): EDC: Hx Hx Para Hx Section SAB No 03/30/24 11:14 [facility] Medical History (Updated 03/30/24 @ 11:14 by Qian Gentile) History of steroid therapy Diabetes Walker as ambulation aid History of renal disease Anemia Excessive bleeding Injury of head and neck History of ulceration Gastric reflux Sleep apnea History of pain when walking Cardiology follow-up encounter History of irregular heartbeat Asthma DVT (deep venous thrombosis) Frequent falls Multiple contusions Head injury Adult failure to thrive Schizophrenia Primary osteoarthritis, right shoulder Severe malnutrition Adult failure to thrive Localized osteoarthritis of right knee Pulmonary embolism Ventral hernia, recurrent Rheumatoid arthritis Chronic pain Kidney disease Congestive heart failure (CHF) Complete rotator cuff tear Marijuana use Shoulder impingement SLAP tear of shoulder Acromioclavicular joint arthritis Essential hypertension (08/02/20) Chronic obstructive lung disease (08/02/20) Malaise and fatigue (08/02/20) Low back pain (03/01/11) Displacement of lumbar intervertebral disc without myelopathy (03/01/11) Brachial neuritis (05/31/11) Wears glasses Dementia Alcohol use Ambulates with cane Arthritis Prostate disease High cholesterol Back pain History of IBS Emphysema, unspecified History of stress test History of echocardiogram Osteoarthritis of left knee Bipolar disorder Diabetes GERD (gastroesophageal reflux disease) Former smoker COPD (chronic obstructive pulmonary disease) Myocardial infarct Hypertension Migraines Cervical spondylosis Cervical radiculitis Partial tear of right rotator cuff Essential (primary) hypertension Smoking greater than 40 pack years Dementia PVCs (premature ventricular contractions) Lung nodule < 6cm on CT Cannabis dependence DDD (degenerative disc disease) BPH (benign prostatic hyperplasia) Anxiety Depression Atherosclerotic heart disease of [place] coronary artery without angina pectoris Hyperlipidemia Trigger finger MONIQUE (obstructive sleep apnea) Stage 2 moderate COPD by GOLD classification Peptic ulcer disease Restless leg syndrome Schizophrenia Asthma History of pulmonary embolism Home Medications ?Medication ?Instructions ?Recorded ?Last Taken ?Type ropinirole 0.5 mg tablet 0.5 mg PO QHS RESTLESS LEGS 04/23/16 03/05/24 History tamsulosin 0.4 mg capsule 0.4 mg PO QHS PROSTATE 01/30/17 03/05/24 History baclofen 10 mg tablet 10 mg PO TID PRN PAIN 11/09/20 07/09/23 History icosapent ethyl 1 gram capsule 2 g PO BID HEART 11/09/20 03/06/24 History (Vascepa) donepezil 10 mg tablet 10 mg PO DAILY ALZHEIMERS 10/23/21 03/06/24 History lamotrigine 200 mg tablet 200 mg PO DAILY MOOD 10/23/21 03/06/24 History (Lamictal) olanzapine 10 mg tablet (Zyprexa) 10 mg PO QHS MOOD 10/23/21 03/05/24 History budesonide 160 mcg-glycopyr 9 2 inh inhalation BID COPD #10.7 01/28/23 03/06/24 Rx mcg-formot 4.8 mcg/actuation HFA grams inhaler (Breztri Aerosphere) dicyclomine 20 mg tablet 20 mg PO TID IRRITABLE BOWELS 04/15/23 03/06/24 History ondansetron 4 mg disintegrating 4 mg PO TID PRN NAUSEA 04/15/23 03/05/24 History tablet potassium chloride 20 mEq 20 meq PO DAILY SUPPLEMENT 04/15/23 03/06/24 History tablet,extended release(part/cryst) atorvastatin 40 mg tablet 40 mg PO QHS CHOLESTEROL #90 tabs 06/24/23 03/05/24 Rx mesalamine 0.375 gram 1.5 g PO BID IBS 07/10/23 03/06/24 History capsule,extended release 24 hr ferrous sulfate 325 mg (65 mg 325 mg PO DAILY SUPPLEMENT 09/02/23 03/06/24 History iron) tablet furosemide 20 mg tablet (Lasix) 20 mg PO DAILY COPD 09/02/23 03/06/24 History budesonide 3 mg 9 mg PO QDAY IBS 10/13/23 03/06/24 History capsule,delayed,extended release fenofibrate 54 mg tablet 54 mg PO DAILY CHOLESTEROL 11/19/23 03/06/24 History losartan 50 mg tablet 50 mg PO BID BP 11/19/23 03/06/24 History mirtazapine 30 mg tablet 30 mg PO QHS DEPRESSION 11/19/23 03/05/24 History apixaban 5 mg tablet (Eliquis) 5 mg PO BID BLOOD THINNER #60 tabs 12/30/23 03/06/24 Rx famotidine 20 mg tablet 20 mg PO BID GERD 3 months #180 12/31/23 03/06/24 Rx tabs clopidogrel 75 mg tablet 75 mg PO DAILY BLOOD THINNER #30 01/15/24 03/06/24 Rx tabs acetaminophen 500 mg tablet 1,000 mg PO Q8 PRN pain 03/06/24 Unknown History trazodone 150 mg tablet 150 mg PO QHS SLEEP 03/06/24 03/05/24 History albuterol sulfate 2.5 mg/3 mL 2.5 mg (3 mL) inhalation Q2H PRN 03/09/24 Unknown Rx (0.083 %) solution for nebulization PRN Dyspnea, wheezing #0 mL menthol 0.44 %-zinc oxide 20.6 % 1 applic topical 4X/DAY SKIN 03/09/24 Unknown Rx topical ointment (Calmoseptine) IRRITATION #0 grams nutrition tx glu 120 ml PO 4X/DAY CKD #0 mL 03/09/24 Unknown Rx intol,lac-free,soy-fiber 0.06 gram-1.2 kcal/mL liquid (Glucerna 1.2 Morgan) oxycodone 5 mg tablet 5 mg PO Q4H PRN PRN Pain Score 03/22/24 Unknown Rx 4-10 14 days #30 tabs loratadine 10 mg capsule (Allergy 10 mg PO DAILY ALLERGIES 03/30/24 Unknown History Relief (loratadine)) Allergy/AdvReac Type Severity Reaction Status Date / Time Quinolones Allergy Unknown unknown Verified 03/30/24 11:02 aspirin Allergy Itching, Verified 03/30/24 11:02 Hives levofloxacin (From Levaquin) Allergy Hives, Verified 03/30/24 11:02 Itching Penicillins Allergy Hives, Verified 03/30/24 11:02 Itching Family History (Updated 03/06/24 @ 17:[address] Margo Sawyer MD) Mother CAD (coronary artery disease) Sister Diabetes Father Alcoholism Surgical History (Updated 03/30/24 @ 11:14 by Qian Genitle) History of cardiac catheterization Hx of total shoulder replacement History of cholecystectomy History of coronary artery stent placement History of right shoulder replacement Hx of colonoscopy S/P right rotator cuff repair Hx of repair of right rotator cuff (06/04/22) H/O left knee surgery History of laparoscopic cholecystectomy History of appendectomy H/O cervical spine surgery H/O ventral hernia repair History of left heart catheterization (04/2016) History of coronary artery stent placement (10/16/18) Social History household members: none housing: house current occupational status: disabled Smoking Status: Former smoker quit date: 02/14/15 how long ago did patient quit smokin years ago second hand exposure: Yes alcohol intake: former details: Quit 9 years ago substance use type: marijuana caffeine: Yes Type: coffee what type of physical activity do you participate in: none seatbelt use: always do you feel safe at home: Yes Audit: Pertinent Findings Pertinent Findings EKG Perinent findings: March 06, 2024. Normal sinus rhythm. Nonspecific ST and T wave abnormality. Stress test pertinent findings: February 25, 2024. Ejection fraction 64%. No areas of reversibility are noted to suggest ischemia and no previous infarct is noted. Echo (EF%) pertinent findings: March 08, 2021. Ejection fraction 60%. No aortic stenosis noted. Consult pertinent findings: February 02, 2024. Regina NOLASCO. 1. History of coronary artery stent placement. PCI?BMS to the mid RCA on August 27, 2013. PCI NEVAEH to the proximal LAD on 10/16/2018. Most recent stress test from September 05 was negative for ischemia. Due to continued shortness of breath, he will repeat stress test to rule out coronary artery disease. Patient is also to reach out to primary care provider/gravity meter operator regarding continued wheezing noted on exam. 2. [id number] 3. Dizziness noted on position change?he was encouraged to remain hydrated. Monitor as necessary. 3. Preop evaluation.?He will undergo echocardiogram and stress test to guide further treatment. If no significant findings he may proceed with surgery. Recommendation Anesthesia Recommendation Anesthesia recommendation: OPTIMIZED for anesthesia
[2024-04-13] VITALS (15 sets, daily range): BP systolic 103–124; BP diastolic 52–71; PULSE 67–95; RESP 16–20; TEMP 36.2–37.1; O2SAT 92–99; BMI 26.2
[2024-04-13] MEDS: 0.9% Normal Saline (1000mL) 1,000 ML 15 ML IV (06:40)
[2024-04-13] MEDS: Vancomycin HCl 1,250 MG in 0.9% Normal Saline (250mL Bag) 250 ML 167 MG IV (06:41)
[2024-04-13] MEDS: Magnesium 1 GM over 15 mins IV (06:43)
[2024-04-13] MEDS: Acetaminophen 500 MG Tablet 1000 MG PO ×3 (06:47→21:05)
[2024-04-13] MEDS: Scopolamine 1mg/72hr Patch 1 PATCH TD (06:47)
[2024-04-13] MEDS: Gabapentin 600 MG Tablet PO (06:47)
--- NOTE | 2024-04-13 07:06 | PRE.ANES_ITS ---
ASA Classification* ASA Classification ASA Classification: 3 Assessment & Plan Anesthesia* Anesthesia Assessment Anesthesia Assessment: Discussed sedation and/or anesthesia options, risks, benefits, and alternatives with patient/parents/legal guardian/POA. Questions invited. The patient/parents/legal guardian/POA seems to understand and agrees to proceed with anesthesia plan. Reviewed the physical assessment, medical history, allergy history and patient home medications list prior to surgery/procedure/anesthetic and documented any changes. Performed airway and anesthesia risk assessments. Anesthesia Type Anesthesia Type: Spinal and Block (Patient is consented for adductor canal block.) History Source History Obtained from:: Patient and Chart Anesthesia Focused Assessment* Temperature: 98.0 F Pulse Rate: 83 Blood Pressure: 120/59 Respiratory Rate: 18 Pulse Ox: 98 Oxygen Delivery Method: Room Air Airway Assessment Mouth opens: 2 cm Mallampati Score: IV Teeth Condition: Missing (Patient is edentulous.) Neck Range of motion (ROM): Limited ROM Focused Labs Anesthesia Preop lab: CBC WBC 8.7 K/mm3 (4.4-11.0) 03/29/24 06:16 RBC 3.45 M/mm3 (4.6-6.2) L 03/29/24 06:16 Hgb 9.4 g/dL (13.0-16.5) L 03/29/24 06:16 Hct 30.0 % (40-54) L 03/29/24 06:16 Plt Count 215 K/mm3 (150-450) 03/29/24 06:16 CHEMISTRY Potassium 3.8 mmol/L (3.5-5.1) 03/31/24 05:40 Sodium 141 mmol/L (136-145) 03/31/24 05:40 Magnesium 2.0 mg/dL (1.6-2.6) 03/31/24 05:40 Phosphorus 3.0 mg/dL (2.5-4.9) 01/17/23 09:27 BUN 22 mg/dL (7-18) H 03/31/24 05:40 Creatinine 1.22 mg/dL (0.70-1.30) 03/31/24 05:40 Glucose 102 mg/dL (74-106) 03/31/24 05:40 POC Glucose 111 mg/dL (74-106) H 03/09/24 20:24 TSH 0.728 uIU/mL (0.358-3.740) 12/24/23 08:58 COAG PT 14.7 SECONDS (11.7-14.9) 03/31/24 05:40 Pre-Assessment Diagnosis/Proposed Procedure Planned Operative Procedure(s): (L) Left Total Knee Replacement Robotic Arm Assisted Anesthesia History Anesthesia History - inspector mechanical: Anesthesia History - inspector mechanical Hx Hospitalization No 03/30/24 11:14 Any Problems With Anesthesia No 03/30/24 11:14 Cholinesterase deficiency No 03/30/24 11:14 You/Your Family Experience No 03/30/24 11:14 fever (hyperthermia) with Relationship Recent Exposure to Contagious No 04/13/24 06:19 Disease Does patient have nerve No 03/30/24 11:14 stimulator Patient instructed to have device shut off --Does patient have Pacemaker No 04/13/24 06:22 or ICD? When Was Last Pacemaker Check QUESTION #4 FULL TEXT: You/Your Family Experience fever (hyperthermia) with Anesthesia Last Oral Intake Last Oral intake: Last Oral Intake NPO since 04:00 04/13/24 06:22 Meds taken in AM with sips of Yes 04/13/24 06:22 water? Meds patient instructed to take am of surgery Any additional information?: Yes NPO since: 04:30 (Patient took his Ensure at 4:30 AM.) Meds taken in AM with sips of water?: Yes PONV PONV - inspector mechanical: PONV - inspector mechanical Female No 03/30/24 11:14 HX of Motion Sickness No 03/30/24 11:14 HX of N/V After Surgery No 03/30/24 11:14 Non-Smoker Yes 03/30/24 11:14 Duration of Surgery greater Yes 03/30/24 11:14 than 60 minutes Number of Risk Factors 2 03/30/24 11:14 PONV Score Moderate Risk 03/30/24 11:14 Height & Weight Height & Weight: Anesthesia: Height & Weight Height 6 ft 04/13/24 06:22 Weight: 87.543 kg 04/13/24 06:22 Body Mass Index (BMI) 26.2 04/13/24 06:22 Respiratory Assessment Respiratory Assessment - inspector mechanical: Respiratory Tract Infection Hx - inspector mechanical Hx Respiratory Tract Infection No 03/30/24 11:14 STOP Sleep Apnea STOP Sleep Apnea - inspector mechanical: STOP Sleep Apnea - inspector mechanical Hx Hypertension Yes 03/30/24 11:14 Hx Sleep Apnea Yes: NON-COMPLIANT 03/30/24 11:14 CPAP No 03/30/24 11:14 BIPAP No 03/30/24 11:14 Do you snore loudly (louder than talking or can be heard Do you often feel tired/ fatigued/ sleepy during daytime? Has anyone observed you stop breathing during sleep? STOP Results Positive 03/30/24 11:14 QUESTION #5 FULL TEXT : Do you snore loudly (louder than talking or can be heard through closed doors)? 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 Specify any problems Hx of Preganancy in last 3 N/A 03/30/24 11:14 Months Nurse Filling Out Transfusion VCHRISTIN 03/30/24 11:14 & Questions: Date: 03/30/24 03/30/24 11:14 Time: 11:16 03/30/24 11:14 Patient unable to answer at this time (ie. confused, unrespo /Reproduction History /Reproductive History - inspector mechanical: /Reproductive Hx- inspector mechanical Hx Now No 03/30/24 11:14 Gestational Age (in weeks): EDC: Hx Hx Para Hx Section SAB No 03/30/24 11:14 Active Medications Active Medications: Current Medications Generic Name Dose Route Start Last Admin Trade Name Jeanna PRN Reason Stop Dose Admin Acetaminophen 1,000 mg 04/13/24 07:30 04/13/24 06:47 Acetaminophen 500 Mg Tablet PO 04/13/24 07:31 1,000 mg X1 ONE Administration Dexamethasone Sodium Phosphate 10 mg 04/13/24 07:30 Dexamethasone 10 Mg/Ml Vial IV 04/13/24 07:31 X1 ONE Gabapentin 600 mg 04/13/24 07:30 04/13/24 06:47 Gabapentin 600 Mg Tablet PO 04/13/24 07:31 600 mg X1 ONE Administration Tranexamic Acid 1,000 mg/ 110 mls @ 660 mls/hr 04/13/24 07:30 Sodium Chloride IV 04/13/24 07:39 X1 ONE Tranexamic Acid 1,000 mg/ 110 mls @ 660 mls/hr 04/13/24 07:30 Sodium Chloride IV 04/13/24 07:39 X1 ONE Lactated Ringer's 1,000 mls @ 125 mls/hr 04/13/24 07:30 IV 04/13/24 15:29 .Q8H TYREE Vancomycin HCl 1,250 mg/ 275 mls @ 167 mls/hr 04/13/24 07:30 04/13/24 06:41 Sodium Chloride IV 04/13/24 09:08 167 mls/hr PREOP ONE Administration Magnesium Sulfate 1 gm/ 102 mls @ 408 mls/hr 04/13/24 07:30 04/13/24 06:43 Dextrose IV 04/13/24 07:44 408 mls/hr X1 ONE Administration Sodium Chloride 1,000 mls @ 15 mls/hr 04/13/24 05:50 04/13/24 06:40 IV 04/18/24 19:09 15 mls/hr .Q48H TYREE Administration Protocol Insulin Human Lispro 1 - 6 unit 04/13/24 07:30 Insulin Lispro 100 Unit/Ml Insuln.Pen SC 04/13/24 18:00 Q4H PRN PRN BG>/= 180, SEE PROTOCOL Protocol Scopolamine HBr 1 patch 04/13/24 07:30 04/13/24 06:47 Scopolamine 1mg/72hr Patch TD 04/13/24 07:31 1 patch X1 ONE Administration PFSH Medical History History of steroid therapy Diabetes Walker as ambulation aid History of renal disease Anemia Excessive bleeding Injury of head and neck History of ulceration Gastric reflux Sleep apnea History of pain when walking Cardiology follow-up encounter History of irregular heartbeat Asthma DVT (deep venous thrombosis) Frequent falls Multiple contusions Head injury Adult failure to thrive Schizophrenia Primary osteoarthritis, right shoulder Severe malnutrition Adult failure to thrive Localized osteoarthritis of right knee Pulmonary embolism Ventral hernia, recurrent Rheumatoid arthritis Chronic pain Kidney disease Congestive heart failure (CHF) Complete rotator cuff tear Marijuana use Shoulder impingement SLAP tear of shoulder Acromioclavicular joint arthritis Essential hypertension (08/02/20) Chronic obstructive lung disease (08/02/20) Malaise and fatigue (08/02/20) Low back pain (03/01/11) Displacement of lumbar intervertebral disc without myelopathy (03/01/11) Brachial neuritis (05/31/11) Wears glasses Dementia Alcohol use Ambulates with cane Arthritis Prostate disease High cholesterol Back pain History of IBS Emphysema, unspecified History of stress test History of echocardiogram Osteoarthritis of left knee Bipolar disorder Diabetes GERD (gastroesophageal reflux disease) Former smoker COPD (chronic obstructive pulmonary disease) Myocardial infarct Hypertension Migraines Cervical spondylosis Cervical radiculitis Partial tear of right rotator cuff Essential (primary) hypertension Smoking greater than 40 pack years Dementia PVCs (premature ventricular contractions) Lung nodule < 6cm on CT Cannabis dependence DDD (degenerative disc disease) BPH (benign prostatic hyperplasia) Anxiety Depression Atherosclerotic heart disease of [place] coronary artery without angina pectoris Hyperlipidemia Trigger finger MONIQUE (obstructive sleep apnea) Stage 2 moderate COPD by GOLD classification Peptic ulcer disease Restless leg syndrome Schizophrenia Asthma History of pulmonary embolism Home Medications ?Medication ?Instructions ?Recorded ?Last Taken ?Type ropinirole 0.5 mg tablet 0.5 mg PO QHS RESTLESS LEGS 04/23/16 04/12/24 History tamsulosin 0.4 mg capsule 0.4 mg PO QHS PROSTATE 01/30/17 04/12/24 History baclofen 10 mg tablet 10 mg PO TID PRN PAIN 11/09/20 07/09/23 History icosapent ethyl 1 gram capsule 2 g PO BID HEART 11/09/20 04/12/24 History (Vascepa) donepezil 10 mg tablet 10 mg PO DAILY ALZHEIMERS 10/23/21 04/12/24 History lamotrigine 200 mg tablet 200 mg PO DAILY MOOD 10/23/21 04/13/24 History (Lamictal) olanzapine 10 mg tablet (Zyprexa) 10 mg PO QHS MOOD 10/23/21 04/12/24 History budesonide 160 mcg-glycopyr 9 2 inh inhalation BID COPD #10.7 01/28/23 04/13/24 Rx mcg-formot 4.8 mcg/actuation HFA grams inhaler (Breztri Aerosphere) dicyclomine 20 mg tablet 20 mg PO TID IRRITABLE BOWELS 04/15/23 04/12/24 History ondansetron 4 mg disintegrating 4 mg PO TID PRN NAUSEA 04/15/23 03/05/24 History tablet potassium chloride 20 mEq 20 meq PO DAILY SUPPLEMENT 04/15/23 04/12/24 History tablet,extended release(part/cryst) atorvastatin 40 mg tablet 40 mg PO QHS CHOLESTEROL #90 tabs 06/24/23 04/12/24 Rx mesalamine 0.375 gram 1.5 g PO BID IBS 07/10/23 04/12/24 History capsule,extended release 24 hr ferrous sulfate 325 mg (65 mg 325 mg PO DAILY SUPPLEMENT 09/02/23 04/12/24 History iron) tablet furosemide 20 mg tablet (Lasix) 20 mg PO DAILY COPD 09/02/23 04/12/24 History budesonide 3 mg 9 mg PO QDAY IBS 10/13/23 04/12/24 History capsule,delayed,extended release fenofibrate 54 mg tablet 54 mg PO DAILY CHOLESTEROL 11/19/23 04/12/24 History losartan 50 mg tablet 50 mg PO BID BP 11/19/23 04/13/24 History mirtazapine 30 mg tablet 30 mg PO QHS DEPRESSION 11/19/23 04/12/24 History apixaban 5 mg tablet (Eliquis) 5 mg PO BID BLOOD THINNER #60 tabs 12/30/23 04/11/24 Rx famotidine 20 mg tablet 20 mg PO BID GERD 3 months #180 12/31/23 04/13/24 Rx tabs clopidogrel 75 mg tablet 75 mg PO DAILY BLOOD THINNER #30 01/15/24 04/06/24 Rx tabs acetaminophen 500 mg tablet 1,000 mg PO Q8 PRN pain 03/06/24 Unknown History trazodone 150 mg tablet 150 mg PO QHS SLEEP 03/06/24 04/12/24 History albuterol sulfate 2.5 mg/3 mL 2.5 mg (3 mL) inhalation Q2H PRN 03/09/24 04/13/24 04:30 Rx (0.083 %) solution for nebulization PRN Dyspnea, wheezing #0 mL menthol 0.44 %-zinc oxide 20.6 % 1 applic topical 4X/DAY SKIN 03/09/24 04/12/24 Rx topical ointment (Calmoseptine) IRRITATION #0 grams nutrition tx glu 120 ml PO 4X/DAY CKD #0 mL 03/09/24 04/12/24 Rx intol,lac-free,soy-fiber 0.06 gram-1.2 kcal/mL liquid (Glucerna 1.2 Morgan) loratadine 10 mg capsule (Allergy 10 mg PO DAILY ALLERGIES 03/30/24 04/12/24 History Relief (loratadine)) oxycodone 5 mg tablet 5 mg PO Q4 PRN Pain Score 4-10 14 04/11/24 Unknown Rx days #30 tabs Allergy/AdvReac Type Severity Reaction Status Date / Time Quinolones Allergy Unknown unknown Verified 04/13/24 06:08 aspirin Allergy Itching, Verified 04/13/24 06:08 Hives levofloxacin (From Levaquin) Allergy Hives, Verified 04/13/24 06:08 Itching Penicillins Allergy Hives, Verified 04/13/24 06:08 Itching Family History Mother CAD (coronary artery disease) Sister Diabetes Father Alcoholism Surgical History History of cardiac catheterization Hx of total shoulder replacement History of cholecystectomy History of coronary artery stent placement History of right shoulder replacement Hx of colonoscopy S/P right rotator cuff repair Hx of repair of right rotator cuff (06/04/22) H/O left knee surgery History of laparoscopic cholecystectomy History of appendectomy H/O cervical spine surgery H/O ventral hernia repair History of left heart catheterization (04/2016) History of coronary artery stent placement (10/16/18) Social History (Reviewed 04/02/24 @ 10:58 by Cee Jin household members: none housing: house current occupational status: disabled Smoking Status: Former smoker quit date: 02/14/15 how long ago did patient quit smokin years ago second hand exposure: Yes alcohol intake: former details: Quit 9 years ago substance use type: marijuana caffeine: Yes Type: coffee what type of physical activity do you participate in: none seatbelt use: always do you feel safe at home: Yes Review of Systems (Anesthesia) ROS Narrative System reviewed and no additional complaints, except as documented.
--- NOTE | 2024-04-13 07:10 | PCM.HP.BLA ---
History and Physical Date of Admission: 04/13/24 [facility] [address] [place] [address] OFFICE VISIT Date of Service: 02/04/24 MR#: [id number] Acct: [id number] Name: LILLIAN GUERRERO Rep #: [id number] : 1950 Provider: Dr. Miguelangel Cohn, Age/Sex: 73/M Location[place] [facility] Status: Signed Intake Vital Signs 01/09/2418:08 02/01/2414:52 Height 6 ft 6 ft Intake Visit Reasons: LFET KNEE Accompanied by: Self Is patient in pain?: Yes Pain scale (1-10): 8 Allergies Quinolones Allergy (Unknown, Verified 02/04/24 09:22) unknownaspirin Allergy (Verified 02/04/24 09:22) Itching, Hiveslevofloxacin (From Levaquin) Allergy (Verified 02/04/24 09:22) Hives, ItchingPenicillins Allergy (Verified 02/04/24 09:22) Hives, Itching Medications ?Medication ?Instructions ?Recorded ?Confirmed ?Type ropinirole 0.5 mg tablet 0.5 mg PO QHS RESTLESS LEGS 04/23/16 02/04/24 History tamsulosin 0.4 mg capsule 0.4 mg PO QHS PROSTATE 01/30/17 02/04/24 History baclofen 10 mg tablet 10 mg PO TID PRN PRN PAIN 11/09/20 02/04/24 History icosapent ethyl 1 gram capsule 2 g PO BID HEART 11/09/20 02/04/24 History (Vascepa) donepezil 10 mg tablet 10 mg PO DAILY ALZHEIMERS 10/23/21 02/04/24 History lamotrigine 200 mg tablet 200 mg PO DAILY MOOD 10/23/21 02/04/24 History (Lamictal) olanzapine 10 mg tablet (Zyprexa) 10 mg PO QHS MOOD 10/23/21 02/04/24 History budesonide 160 mcg-glycopyr 9 2 inh inhalation BID COPD #10.7 01/28/23 02/04/24 Rx mcg-formot 4.8 mcg/actuation HFA grams inhaler (Breztri Aerosphere) dicyclomine 20 mg tablet 20 mg PO TID IRRITABLE BOWELS 04/15/23 02/04/24 History ondansetron 4 mg disintegrating 4 mg PO TID PRN NAUSEA 04/15/23 02/04/24 History tablet potassium chloride 20 mEq 20 meq PO DAILY SUPPLEMENT 04/15/23 02/04/24 History tablet,extended release(part/cryst) nitroglycerin 0.4 mg sublingual 0.4 mg sublingual Q5-15M PRN chest 06/16/23 02/04/24 Rx tablet (Nitrostat) pain #25 tabs atorvastatin 40 mg tablet 40 mg PO QHS CHOLESTEROL #90 tabs 06/24/23 02/04/24 Rx albuterol sulfate 2.5 mg/3 mL 2.5 mg inhalation Q8H PRN 07/10/23 02/04/24 History (0.083 %) solution for nebulization shortness of breath or wheezing albuterol sulfate 90 mcg/actuation 2 puff inhalation Q6H PRN 07/10/23 02/04/24 History aerosol inhaler Shortness Of Breath mesalamine 0.375 gram 1.5 g PO BID 07/10/23 02/04/24 History capsule,extended release 24 hr ferrous sulfate 325 mg (65 mg 325 mg PO DAILY 09/02/23 02/04/24 History iron) tablet furosemide 20 mg tablet (Lasix) 20 mg PO DAILY 09/02/23 02/04/24 History acetaminophen 500 mg tablet 1,000 mg (2 x 500 mg) PO Q8 #0 tabs 09/05/23 02/04/24 Rx budesonide 3 mg 9 mg PO QDAY 10/13/23 02/04/24 History capsule,delayed,extended release oxycodone-acetaminophen 5 mg-325 1 tab PO Q6H PRN PRN Pain 3 days 10/28/23 02/04/24 Rx mg tablet #12 TABLETS aripiprazole 10 mg tablet 10 mg PO QDAY 11/19/23 02/04/24 History fenofibrate 54 mg tablet 54 mg PO QDAY 11/19/23 02/04/24 History loratadine 10 mg tablet 10 mg PO QDAY 11/19/23 02/04/24 History losartan 50 mg tablet 50 mg PO BID 11/19/23 02/04/24 History mirtazapine 30 mg tablet 30 mg PO QHS 11/19/23 02/04/24 History trazodone 50 mg tablet 50 - 150 mg PO QHS PRN 11/19/23 02/04/24 History fexofenadine 180 mg tablet 180 mg PO QDAY 12/18/23 02/04/24 History (Jeaneth Allergy) apixaban 5 mg tablet (Eliquis) 5 mg PO BID #60 tabs 12/30/23 02/04/24 Rx famotidine 20 mg tablet 20 mg PO BID 3 months #180 tabs 12/31/23 02/04/24 Rx prednisone 20 mg tablet 40 mg (2 x 20 mg) PO DAILY 5 days 01/08/24 02/04/24 Rx #10 tabs clopidogrel 75 mg tablet 75 mg PO DAILY BLOOD THINNER #30 01/15/24 02/04/24 Rx tabs Have you fallen in the past year?: Yes [facility] Medical History (Updated 02/04/24 @ 10:[address] Miguelangel Cohn, DO) Fatigue Lives in chcf Schizophrenia Primary osteoarthritis, right shoulder Severe malnutrition Generalized weakness Adult failure to thrive Localized osteoarthritis of right knee Pulmonary embolism Ventral hernia, recurrent Rheumatoid arthritis Chronic pain Kidney disease Congestive heart failure (CHF) Pain of left knee and lower leg Complete rotator cuff tear Marijuana use Shoulder impingement SLAP tear of shoulder Acromioclavicular joint arthritis Essential hypertension (08/02/20) Chronic obstructive lung disease (08/02/20) Neck sprain (03/01/11) Neck pain (03/01/11) Malaise and fatigue (08/02/20) Low back pain (03/01/11) Displacement of lumbar intervertebral disc without myelopathy (03/01/11) Brachial neuritis (05/31/11) Wears glasses Dementia Alcohol use Ambulates with cane Arthritis Prostate disease High cholesterol Back pain History of IBS Emphysema, unspecified Shortness of breath on exertion History of pain when walking History of stress test History of echocardiogram Cardiology follow-up encounter History of CHF (congestive heart failure) History of irregular heartbeat Osteoarthritis of left knee Bipolar disorder Diabetes GERD (gastroesophageal reflux disease) Former smoker CPAP (continuous positive airway pressure) dependence COPD (chronic obstructive pulmonary disease) Myocardial infarct Hypertension Migraines Irregular heart beat PND (paroxysmal nocturnal dyspnea) Orthopnea Cervical spondylosis Cervical radiculitis Partial tear of right rotator cuff Essential (primary) hypertension Smoking greater than 40 pack years Dementia PVCs (premature ventricular contractions) Lung nodule < 6cm on CT Dyspnea on exertion Wheezing Chest tightness Cannabis dependence DDD (degenerative disc disease) BPH (benign prostatic hyperplasia) Pleurisy Anxiety Depression Atherosclerotic heart disease of [place] coronary artery without angina pectoris Hyperlipidemia Trigger finger MONIQUE (obstructive sleep apnea) Syncope and collapse Stage 2 moderate COPD by GOLD classification Peptic ulcer disease Restless leg syndrome Schizophrenia Asthma History of pulmonary embolism Surgical History History of right shoulder replacement Hx of colonoscopy S/P right rotator cuff repair Hx of repair of right rotator cuff (06/04/22) H/O left knee surgery History of laparoscopic cholecystectomy History of appendectomy H/O cervical spine surgery H/O ventral hernia repair History of left heart catheterization (04/2016) History of coronary artery stent placement (10/16/18) Family History Mother CAD (coronary artery disease)Sister Diabetes Social History household members: none housing: house current occupational status: disabled Smoking Status: Former smoker quit date: 02/14/15 how long ago did patient quit smokin years ago second hand exposure: Yes alcohol intake: former details: Quit 9 years ago substance use type: marijuana caffeine: Yes Type: coffee what type of physical activity do you participate in: none seatbelt use: always do you feel safe at home: Yes HPI LFET KNEE Details: This documentation accurately reflects the service provided and the decisions made by me, Dr. Miguelangel Cohn, DO 02/04/24 0856. Part of today?s visit was documented by Gabriela CHÁVEZ, acting as scribe. LILLIAN GUERRERO is a 73 year old M 02/04/2024:here today for Left knee pain. Lillian is really debilitated by his left knee both physically and mentally. This is causing him significant depression he was actually recently admitted to the hospital due to some suicidal ideation secondary to his chronic pain issues. He states that he would not need to take narcotic if his left knee pain was better. The left knee is causing him the most significant pain and concern. He cannot do what he likes to do with it and is having trouble with activities of daily living. He has exhausted conservative treatment without significant benefit. He does admit to taking 1 Percocet twice a day that is prescribed by his pain management doctor. He denies any tobacco or recreational drug use other than marijuana 3 times a week. He is requesting left knee replacement. He is currently being seen by cardiology and is scheduled for stress test in February. He is on blood thinner he has had a history of 2 pulmonary embolisms. He is on Plavix and Eliquis. 01/10/2024 ER visit:brought in by police secondary to concerning welfare check. Patient endorses noncompliance to medications, endorses that he wants to just give up. He notes he is spoken with behavioral health specialist however he states they cannot help me. He notes he would like to get back on his meds. He is unsure if he suicidal. He notes he is fatigued/tired of being in chronic pain. [place] slip was signed given his report of suicidal ideation he was monitored closely. Patient was medically cleared. Behavioral health evaluate the patient agreed with admission. 12/10/2023: Left knee Zilretta injection 11/19/2023: here today for left knee pain. Patient notes that he continues to have knee pain. Patient complains of pain over his medial knee. He uses a cane to ambulate due to his knee pain. Patient has popping, clicking and grinding. Patient complains of knee instability. Patient notes that he has a steroid injection in March which was more helpful than the Euflexxa injections he had in May. Patient notes that he has fallen twice about 4 weeks ago due to unknown reasons. Patient sees a pain management doctor and is taking norco for pain which is helpful for his knee pain but not his shoulder pain. Patient is currently living alone and going to [facility] for PT for his shoulder. plan : spoke with the patient about the tremendous risk of the patient falling after a total knee arthroplasty and fracturing around the implant. Explained the options to the patient- a repeat steroid injection but that was helpful for about a month. Also spoke with him about zilretta injection which he would like to try. He has done lubricants without much success. 07/07/2023:here today for left knee ER follow-up. Patient states he was seen in the [facility] ED on Friday. He states he fell and thinks he landed right on the left knee. Patient states he was given a brace in the ER but he comes in today wearing the brace that was prescribed to him by Dr. Cohn in here previously. He states when he fell he also fell on the elbows. Patient rates his pain 10/10 today and describes most of the pain over the anterior part of the knee. Patient states he does have some numbness and radiating pain down his leg. He denies any tingling. Patient states he sees Dr. Balderas who has prescribed him some pain medication. He last had a steroid injection in this knee in March and a Euflexxa series in May. Plan: Spoke to patient about his options: Continue bracing , ice , physical therapy steroid injection, he is on Plavix and cannot do NSAIDs, total knee arthroplasty. He is hoping for total knee arthroplasty, I do think he is at higher risk for surgery from a fall standpoint and a medical standpoint, however we can proceed as long as he understands these assumed risks. He feels he is really debilitated because of this knee and thinks that is why he is falling. He has a having a hard time just getting by right now. Explained to patient that if he would get the surgery and fall on the knee after surgery that could be a big problem and could cause damage to the hardware that is in place. Since he had Euflexxa injections and the last one being 06/04/2023 he couldn't do surgery until 3 mo later. I recommend that he talk with his primary care physician about possible chcf placement as he is becoming more unsafe on his own until he can get shoulder and/or knee surgery that he needs. He should continue wearing the brace to give him the extra support. He should think about if he would like to move forward with shoulder surgery in July and then consider the total knee arthroplasty later on in the summer. 06/04/2023: Third left knee Euflexxa injection 05/28/2023: Second left knee Euflexxa injection 05/21/2023: First left knee Euflexxa injection 05/02/2023:here today for left knee and right shoulder pain. pt. presents limping using a cane for ambulation, left knee brace intact. He advises he has been having an increase in his left knee pain over the last week and his left knee frequently wants to give out on him He states the steroid injection he received on 04-14-23 lasted about 2 weeks before his pain returned. his right shoulder is also really bothering him, he has had two rotator cuff repairs , he did have an injection about 3 mo ago which helped for over a month. Pt stopped smoking 16 years ago. 3 weeks ago he found out that he has a pulmonary embolism and is being treated with Eliquis, his follow-up for this is in 3 mo. plan: Lillian has chronic right shoulder pain he has had 2 rotator cuff repairs has had an injections after which have been helpful for about a month we will go ahead and give him another 1 today as it has been 3 months. In regards to his severe left knee DJD medial compartment patient is limited to his treatment options. His treatment options are bracing, steroid injections, viscosupplementation injections, topical cream, or a TKA. I explained to him I think he is high risk for complications with this major type of surgery particularly with his COPD and recent pulmonary embolism. He will likely need to be on the blood thinner for at least 3 to 6 months or longer therefore we cannot proceed with knee arthroplasty at this time but can reconsider in the future in the meantime we discussed and we will proceed with viscosupplementation of the left knee continued bracing and topical treatments. I strongly recommend to the patient he use a walker instead of a cane as he has a higher fall risk. We will give him a call once this has been approved. 11/13/2021 operative report left knee arthroscopy:Postoperative diagnosis: Mostly horizontal in nature posterior horn medial meniscus tear with some component of complexity in the body, grade III chondromalacia of the medial compartment of the knee Procedure: Left knee arthroscopic partial medial meniscectomy Ortho Exam Right Knee Patella Translation: 1 Left Knee Skin/Wound: No erythema and No swelling Homans Sign: No Knee ROM: Yes ROM-Extension -20 to 0 (-28) and Yes ROM-Flexion 0-140 (110) Examination: Yes med jt line tenderness, Yes Crepitus and Yes Pain with flexion Stability: NML: Anterior Drawer, NML: Posterior Drawer, NML: Valgus 0, NML: Valgus 30, NML: Varus 0 and NML: Varus 30 Patella Translation: 1 KNEE: lacking 28 actively passively lacking 10 skin graft on lower leg Head: Normocephalic Atraumatic Chest: symmetrical rise, non-labored breathing, no audible wheeze Abdomen: no guarding, non-rigid Supplemental Info 07/05/2023 x-ray left knee: No acute findings [id number] medial compartment lateral patellar tilt 06/17/2023 MRI right tib-fib:0.5 x 1.2 x 2.0 cm old healed sclerosed benign bone lesion in the subcortical region of the anteromedial aspect of the proximal tibial shaft, 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 No abnormal contrast enhancement. Focal atrophy and fatty infiltration of the lateral aspect of the soleus muscle, which could be the sequelae of an old injury. 06/04/2023 x-ray right knee: Mild medial joint space narrowing on notch view, mild lateral patellar tracking, benign-appearing lesion in the proximal tibial metadiaphysis most likely consistent with enchondroma Radiologist interpretation1.4 x 1.1 x 3.1 cm indeterminate mixed sclerotic bone lesion in the proximal tibial shaft, with focal periostitis posteriorly. Recommend follow-up with MRI for further investigation. Mild degenerative arthrosis of the medial femorotibial compartment. Tiny right knee joint effusion. 06/02/2023 MRI right shoulder: Full-thickness tear of the distal supraspinatus with 2.6 cm of medial tendon retraction, tearing of the posterior superior glenoid labrum hypertrophic AC joint arthrosis, there is anterior glenoid joint wear seen on axial image 04/14/2023 x-ray left knee [id number] medial compartment arthrosis 01/27/2023 x-ray right shoulder no acute findings there is 3 metallic anchors seen within the humeral head. 08/07/2022 x-ray left knee: There has been progression of medial compartment narrowing and arthrosis 06/04/2022 right shoulder arthroscopy: Postoperative diagnosis: Re-tear , Full-thickness supraspinatus and infraspinatus rotator cuff tear Procedure: Arthroscopic revision rotator cuff repair 02/05/2022 right shoulder arthroscopy: Preoperative diagnosis: Right shoulder supraspinatus anterior tear biceps tendinopathy SLAP tear impingement; Procedure: Arthroscopic arthroscopic right shoulder rotator cuff repair subacromial decompression biceps tenotomy labral debridement 05/15/2022 MRI right shoulder: Full-thickness full width retracted supraspinatus and infraspinatus tendon tears. Marked subscapularis tendinosis. Mild atrophy of supraspinatus infraspinatus and subscapularis. Moderate arthrosis of the glenohumeral joint. Postsurgical changes of the rotator cuff with cystic change of the humeral head previous anchor still present 04/12/2022 x-ray left shoulder mild AC joint arthrosis 04/12/2021 x-ray right shoulder: Metallic anchor seen within humeral head there is mild glenohumeral arthrosis and mild AC joint arthrosis 01/12/2022 MRI right shoulder:1.0 cm full-thickness tear of the distal supraspinatus tendon, biceps tendinosis SLAP tear AC joint arthrosis with spurring type II acromion subacromial bursitis 11/13/2021 operative report left knee arthroscopy:Postoperative diagnosis: Mostly horizontal in nature posterior horn medial meniscus tear with some component of complexity in the body, grade III chondromalacia of the medial compartment of the knee Procedure: Left knee arthroscopic partial medial meniscectomy Coding Level of Care Code Off vis,est,level 4 Diagnoses Primary osteoarthritis of left knee M17.12 Osteoarthritis type: primary Rheumatoid arthritis M06.9 Rheumatoid arthritis location: knee Assessment and Plan Assessment and Plan (1) Osteoarthritis of left knee: Status: Acute Qualifiers: Osteoarthritis type: primary Qualified Code(s): M17.12 - Unilateral primary osteoarthritis, left knee (2) Rheumatoid arthritis: Status: Acute Qualifiers: Rheumatoid arthritis location: knee Plan Patient is here today for continued left knee pain. Patient would like to proceed with a knee replacement on the left knee. The knee pain is affecting his quality of life and his mental health. He has tried knee bracing, steroid injections, and viscosupplementation injections. I spoke with patient that we will need medical and cardiac clearance. Patient no longer smokes, doesn't drink alcohol but he does use marijuana. I did advise patient that it would be beneficial for him to come off the narcotic pain medication to help with his pain control and recovery after surgery. Patient would like to go to [facility] post-operatively for rehab. He is at significant risk for postoperative fall and needs rehab postoperatively . Due to chronic narcotic use, home situation he lives alone at home ,history of schizophrenia, COPD , rheumatoid arthritis sleep apnea ,pulmonary embolism chronic anticoagulation extensive cardiac history patient needs to be an admission. risks, benefits and alternatives of surgery reviewed including but not limited to bleeding, infection, nerve, artery and/or tissue damage, fracture, VTE, mechanical feel of the knee, continued pain, stiffness and expected post-operative course.?Patient does have an upcoming appointment with his congressional representative and I advised patient to call the office with an update after the appointment to see if he would be cleared for surgery. We will need medical and cardiac clearance we will need permission to stop his Plavix for 7 days and his Eliquis for 3 days preoperatively. Clinical Quality Measures Falls Risk Screening/Assistive Devices Have you fallen in the past year?: Yes 02/04/24 1023 <Electronically signed by Miguelangel Cohn DO> Date Miguelangel Cohn DO I have examined the patient and the H&P has been reviewed. There are no clinical changes since date of exam.
--- NOTE | 2024-04-13 07:11 | RAD.NOTE ---
Copy made of pt's original Living Will and Medical POA; Copies placed on pt chart; Original documents returned to pt and placed in his pt belongings bag.
--- NOTE | 2024-04-13 07:30 | KNEE_PTH ---
PATIENT: LILLIAN GUERRERO LOC: [facility] U#:[id number] AGE/SX: 74/M ROOM: [place] RE04/13/[address]: Dr. Miguelangel Cohn DO : 1950 BED: 1 DIS: 04/14/2024 SPEC #: [id number] RECD: 04/13/24 11:12 STATUS: FERNANDA REVanita #: [id number] RIMMA: 04/13/24 07:[address]: Miguelangel Cohn DEPT: SURGICAL PATHOLOGY RECD BY: Renetta Colmenares ENTERED: 04/13/24 12:20 SP TYPE: TOTAL KNEE OTHR DR: Eliel Mosley, GAURAV Tissues: Knee, NOS Procedures: Decalcification bone/plaque Surgery Specimen Level IV HEADER OPERATION: Left total knee replacement robotic arm assist PRE-OP DIAGNOSIS: Osteoarthritis of left knee TISSUE SUBMITTED: Left knee bone and tissue MICROSCOPIC DIAGNOSIS Bone and soft tissue, left knee, total knee replacement/resection: Worn and cracked articular cartilage. Thickened subchondral bone. Osteonecrosis. JS.mr 04/16/2024 MICROSCOPIC DESCRIPTION Slides are reviewed. GROSS DESCRIPTION Received is one container designated bone and soft tissue left knee. The specimen consists of multiple fragments of cristina-yellow bone measuring in aggregate 10 x 8 x 2.5 cm. A detached piece of bone consistent with loose bodies is also noted measuring 2cm in greatest dimension. No soft tissue is identified. A number of bony fragments contain articular surfaces consistent with tibial plateau and femoral condyle and displaying prominent osteophyte formation, eburnation and bone erosion. Remote Computer Terminal Operator sections are submitted in two cassettes after decalcification. / LUIS MIGUEL.mr 04/13/2024 TC:5 CPT: 00750, 84176 WANDY, 04/16/24
[2024-04-13] MEDS: TXA 1000mg in NS100 100ml (IVPB at Incision) 660 MG IV (08:05)
[2024-04-13] MEDS: dexAMETHasone 10 MG/ML Vial IV (08:06)
[2024-04-13] MEDS: TXA 1000mg in NS100 100ml (IVPB at Closure) 660 MG IV (08:20)
[2024-04-13] MEDS: 0.9% Normal Saline (Pres. free 10 ML Vial (09:10)
[2024-04-13] MEDS: Bupivacaine 0.5% PF 10 ML VIAL (09:10)
[2024-04-13] MEDS: Epinephrine (1 mg/ml) 1 MG/ML VIAL (09:10)
[2024-04-13] MEDS: dexAMETHasone 4 MG/ML Vial (09:10)
[2024-04-13] MEDS: Lactated Ringers 1,000 ML 999 ML IV (10:00)
--- NOTE | 2024-04-13 10:07 | PCM.POST.ANE ---
Anesthesia: Postop Eval I Current Vital Signs Temperature: 97.7 F Pulse Rate: 82 Blood Pressure: 122/70 Respiratory Rate: 20 Pulse Ox: 96 Assessment Airway patent: Yes Spontaneous unlabored respirations: Yes nausea: No Vomiting: No Anesthesia Complication: No Fluid Hydration Crystalloid volume administer (ml): 1,400 Total IV fluid infused: 1,400 Progress Note Anesthesia document: Postop Eval 1 completed: Yes
--- NOTE | 2024-04-13 10:18 | RAD_ITS ---
PROCEDURE: KNEE 1 OR 2 VIEWS REASON FOR EXAM: Postop left knee TECHNIQUE: 2 view(s) of the left knee COMPARISON: Preoperative study of 03/06/2024. RAD/Knee 1 or 2 Views IMPRESSION: The patient's postoperative left total knee arthroplasty, with overlying skin s taples. Satisfactory alignment is noted. No complication is seen. Reading Location: [id number]
[2024-04-13] MEDS: oxyCODONE 5 MG Tablet PO ×2 (11:18→17:05)
--- NOTE | 2024-04-13 11:40 | OP.PCM_ITS ---
Operative Report (Standard) Operative Information Date of Procedure: 04/13/24 Pre-Operative Diagnosis: Left knee DJD Post-Operative Diagnosis: Left knee DJD Surgery/Procedure Performed: Left total knee arthroplasty ship runner: Yes Senior Enterprise Architect: Gustavo Varma Tasks completed by clinical nursing assistant: Opening & closing Type of Anesthesia: Spinal RN Documented Start/Stop Times: Operation Date: 04/13/24 07:30 Case Time Into Pre-Op 04/13/24 05:43 Out of Pre-Op 04/13/24 07:39 Anesthesia Start 04/13/24 07:42 Into Room 04/13/24 07:42 Procedure Start 04/13/24 08:06 Procedure End 04/13/24 09:54 Anesthesia End 04/13/24 10:00 Out of Room 04/13/24 10:00 Into Recovery 04/13/24 10:02 Out of Recovery 04/13/24 10:48 Into Phase II Recovery 04/13/24 10:49 Procedure Start Time: 08:06 Procedure Stop Time: 09:54 Select all DRAINS/GRAFTS/IMPLANTS that apply: Prosthetic device (Isidra triathlon) Prosthetic device details: [place] triathlon Estimated Blood Loss: 125 Specimen collected: Yes Description of specimen(s) removed: Bone and soft tissue Description of surgery: Preoperative diagnosis: Left knee DJD Postoperative diagnosis: Same Procedure: Left total knee arthroplasty CT guided Robotic Assisted Implant: Isidra triathlon cemented, femoral component size5, tibial baseplate size 5, asymmetric patella size 35, polyethylene X3 size 9 CS Anesthesia: Spinal with adductor canal block Tourniquet time: 12+11 minutes at 300 mmHg Complications: None Condition: Stable to PACU Estimated blood loss: 125 cc Batch And Furnace Operator Gustavo Varma. My physician public relations assistant was a vital part of this case. He was important in appropriate retraction during the case, and protection of soft tissues during procedure. His intimate knowledge of the case and my steps aided in safe and expedient completion of the procedure as well as appropriate position of the extremity during the case. He was also vital in assisting with closure under my direct supervision. Indication for procedure: This is a 74-year-old male with long standing degenerative joint disease of the knee who has failed conservative treatment and wished to proceed with elective total knee arthroplasty. Risk benefits and alternatives were reviewed including; risk of bleeding, infection, nerve artery and tissue damage, continued pain, postoperative stiffness, venous th romboembolism, need for postoperative rehabilitation, mechanical feel to the knee, and expected postoperative course. The pre- operative CT and templating was performed with component sizing. Procedure: The patient was met in the preoperative holding area. The operative extremity was identified by both patient and physician and was marked. Patient was met by anesthesia. An adductor canal block was placed by anesthesia postoperatively the patient was brought back to the operating room on a wheeled cart and transferred to the operating table in the supine position. Anesthesia was started. A well-padded tourniquet was placed on the operative extremity. The patient was prepped and draped in the usual sterile fashion. A timeout was called to ensure the proper patient procedure and extremity were being contemplated. An esmarch was used to exsanguinate the extremity. The tourniquet was inflated. A 10 blade scalpel was used to make a midline incision down through the skin and subcutaneous tissue. Skin retractors placed. Bovie and Aquamantis were used to perform meticulous hemostasis. full-thickness flaps were elevated medial and lateral along the joint capsule. A deep blade scalpel was used to perform a medial parapatellar arthrotomy. The knee was brought to full extension. A bovie was used to release the soft tissues off the most proximal aspect of the medial tibial plateau, a three-quarter inch curved osteotome was also used in this process. The infrapatellar fat pad was excised. The suprapatellar fat pad was excised partially anteriorolateraly and portion the anterioromedial pad was elevated from the femur. Tourniquet was let down once and he was in flexion at this point our intra-articular femoral array was placed at a 45 degree angle proximal and posterior to the medial epicondyle. femoral checkpoint was placed at this time. Our tibial array was placed partially intra incisional 1 stab incision was made for the inferior pin with a 15 blade scaple, and pins were placed and attached to the tibial array , tibial checkpoint was placed in the proximal tibial metaphysis. Tourniquet was let down. At this point registration matos were taken throughout the knee . Once the knee was registered we then tensioned the medial and lateral ligaments in extension and 90 degrees of flexion. We then used these numbers to adjust our components within parameters to balance the knee in both flexion and extension once this was done on our monitor we then proceeded with using the robotic arm to make our tibial plateau cut, anterior and posterior chamfer and distal femur cuts. we removed the cut fragments with the use of a bovie and Deon, we did use a lamina senior cisco network engineer to insure we visualized and removed all posterior osteophytes and at this time also used the Aquamantis on the posterior joint capsule. we then trialed and achieved the desired plan with a well-balanced knee. we used the green probe to shivani the corresponding tibial rotation based on our CT template. Lug holes were drilled in the femur the tibia preparation was completed with the appropriate sized base plate pinned based on previous rotation shivani. An appropriate sized fin punch was used on the tibia and the patella was prepared by first using a caliper to ensure sufficient bone stock and a patellar reamer to remove the desired amount of bone. lug holes drilled for an asymmetric poly. We then brought the knee through range of motion with excellent patellar tracking. We thoroughly irrigated the knee. Trial components were removed a posterior capsular injection was preformed with our standard cocktail. In addition the aqua Mantis was also used to aid in hemostasis. Betadine rinse was allowed to sit and washed out completely. Components were cemented in place with standard technique excess cement was removed with a curette [place]ushing elevator cement was allowed to harden with the knee in full extension while a Betadine rinse was allowed to sit this was thoroughly irrigated out followed by. Aricept rinse was then used followed by several more liters of irrigation after it was allowed to sit. The joint capsule was closed with #1 Ethibond [id number] in the upper part of the arthrotomy and #1 Vicryl in the lower part of the arthrotomy. , Followed by 2-0 Vicryl in the subcutaneous tissues with yaa in the skin. Arrays and checkpoints were rem justin prior to closure all counts were correct stab incisions were closed with a staple standard dressing in the form of Mepilex AG for the main incision and a small Mepilex over the pin holes. Thigh-high SOLEDAD hose applied over top of dressing. Patient tolerated the procedure well and was directed to PACU in stable condition . There were no intraoperative complications. Surgical Findings: DJD knee Complications Complications: No
[2024-04-13] MEDS: 0.9% Normal Saline (1000mL) 1,000 ML 125 ML IV ×2 (12:33→20:35)
[2024-04-13] MEDS: Dicyclomine 10 MG Capsule 20 MG PO ×2 (13:36→21:06)
[2024-04-13] MEDS: Famotidine 20 MG Tablet PO ×2 (13:37→21:24)
[2024-04-13] MEDS: Cefazolin 2 GM in Syringe IV ×2 (14:02→21:05)
--- NOTE | 2024-04-13 14:14 | CON.PCM.HO_ITS ---
Assessment & Plan Assessment/Plan (1) Status post total left knee replacement: (2) Iron deficiency anemia: PLAN: Plan Patient is a 74-year-old male who presented [facility] on 04/13/2024 for planned left knee replacement. Medicine consulted postoperatively for medical management. 1. Left knee degenerative joint disease ? Orthopedic surgery primary. S/p left total knee arthroplasty with Dr. Cohn on 04/13. Tolerated procedure well, no intraoperative complications. PT/OT/case management consulted. Further management per orthopedics. 2. Chronic iron deficiency anemia ? Most recent hemoglobin 9.4 on 03/29, baseline 9-10. Follow-up a.m. CBC. Continue home iron supplement. 3. History of VTE ? Hospitalized in March 2023 for PE. No recurrence of VTE since then. Okay to resume home Eliquis postoperatively. 4. History of CAD s/p stenting, hypertension, hyperlipidemia ? Blood pressure stable postoperatively. Last stenting done in 2018. Continue home atorvastatin, losartan and Lasix. Holding home Plavix for now, restart per orthopedic recommendations. Chronic medical conditions: ? BPH with obstructive symptoms: Continue home Flomax. ? Restless leg syndrome: Continue home ropinirole. ? Chronic IBS with diarrhea prominent: No acute issues. Continue home mesalamine and dicyclomine. ? Mild cognitive impairment: Stable. Continue home donepezil. ? Schizophrenia: Stable. Continue home lamotrigine, olanzapine and trazodone at night. ? Chronic pain syndrome: Pain control as noted above. ? Allergies: Continue home fexofenadine as needed. ? Former tobacco abuse: Encouraged continued cessation. ? History of alcohol abuse: Quit in 2014. Encouraged continued cessation. ? History of right total shoulder replacement Total clinical time spent by myself addressing the patient's medical issues, reviewing all the data, and collaborating with patient's care team: 35 minutes. HPI Consult Data Date of Consult: 04/13/24 HPI Narrative Reason for Consultation: Postoperative medical management HPI Narrative: LILLIAN GUERRERO, is a 74 M who presented to [facility] on 04/13/2024 for planned orthopedic procedure. Medicine consulted postoperatively for medical management. Patient had left total knee replacement with Dr. Cohn done this morning. Tolerated procedure well, no intraoperative complications. Saw patient at bedside this afternoon. Patient was sitting up comfortably in bedside chair, conversing normally, no acute distress. Noted that his left knee felt numb currently, denied any knee pain. Otherwise felt well, denied any other concerns at this time. [facility] Medical History History of steroid therapy Diabetes Walker as ambulation aid History of renal disease Anemia Excessive bleeding Injury of head and neck History of ulceration Gastric reflux Sleep apnea History of pain when walking Cardiology follow-up encounter History of irregular heartbeat Asthma DVT (deep venous thrombosis) Frequent falls Multiple contusions Head injury Adult failure to thrive Schizophrenia Primary osteoarthritis, right shoulder Severe malnutrition Adult failure to thrive Localized osteoarthritis of right knee Pulmonary embolism Ventral hernia, recurrent Rheumatoid arthritis Chronic pain Kidney disease Congestive heart failure (CHF) Complete rotator cuff tear Marijuana use Shoulder impingement SLAP tear of shoulder Acromioclavicular joint arthritis Essential hypertension (08/02/20) Chronic obstructive lung disease (08/02/20) Malaise and fatigue (08/02/20) Low back pain (03/01/11) Displacement of lumbar intervertebral disc without myelopathy (03/01/11) Brachial neuritis (05/31/11) Wears glasses Dementia Alcohol use Ambulates with cane Arthritis Prostate disease High cholesterol Back pain History of IBS Emphysema, unspecified History of stress test History of echocardiogram Osteoarthritis of left knee Bipolar disorder Diabetes GERD (gastroesophageal reflux disease) Former smoker COPD (chronic obstructive pulmonary disease) Myocardial infarct Hypertension Migraines Cervical spondylosis Cervical radiculitis Partial tear of right rotator cuff Essential (primary) hypertension Smoking greater than 40 pack years Dementia PVCs (premature ventricular contractions) Lung nodule < 6cm on CT Cannabis dependence DDD (degenerative disc disease) BPH (benign prostatic hyperplasia) Anxiety Depression Atherosclerotic heart disease of [place] coronary artery without angina pectoris Hyperlipidemia Trigger finger MONIQUE (obstructive sleep apnea) Stage 2 moderate COPD by GOLD classification Peptic ulcer disease Restless leg syndrome Schizophrenia Asthma History of pulmonary embolism Home Medications ?Medication ?Instructions ?Recorded ?Last Taken ?Type ropinirole 0.5 mg tablet 0.5 mg PO QHS RESTLESS LEGS 04/23/16 04/12/24 History tamsulosin 0.4 mg capsule 0.4 mg PO QHS PROSTATE 01/30/17 04/12/24 History baclofen 10 mg tablet 10 mg PO TID PRN PAIN 11/09/20 07/09/23 History icosapent ethyl 1 gram capsule 2 g PO BID HEART 11/09/20 04/12/24 History (Vascepa) donepezil 10 mg tablet 10 mg PO DAILY ALZHEIMERS 10/23/21 04/12/24 History lamotrigine 200 mg tablet 200 mg PO DAILY MOOD 10/23/21 04/13/24 History (Lamictal) olanzapine 10 mg tablet (Zyprexa) 10 mg PO QHS MOOD 10/23/21 04/12/24 History budesonide 160 mcg-glycopyr 9 2 inh inhalation BID COPD #10.7 01/28/23 04/13/24 Rx mcg-formot 4.8 mcg/actuation HFA grams inhaler (Breztri Aerosphere) dicyclomine 20 mg tablet 20 mg PO TID IRRITABLE BOWELS 04/15/23 04/12/24 History ondansetron 4 mg disintegrating 4 mg PO TID PRN NAUSEA 04/15/23 03/05/24 History tablet potassium chloride 20 mEq 20 meq PO DAILY SUPPLEMENT 04/15/23 04/12/24 History tablet,extended release(part/cryst) atorvastatin 40 mg tablet 40 mg PO QHS CHOLESTEROL #90 tabs 06/24/23 04/12/24 Rx mesalamine 0.375 gram 1.5 g PO BID IBS 07/10/23 04/12/24 History capsule,extended release 24 hr ferrous sulfate 325 mg (65 mg 325 mg PO DAILY SUPPLEMENT 09/02/23 04/12/24 History iron) tablet furosemide 20 mg tablet (Lasix) 20 mg PO DAILY COPD 09/02/23 04/12/24 History budesonide 3 mg 9 mg PO QDAY IBS 10/13/23 04/12/24 History capsule,delayed,extended release fenofibrate 54 mg tablet 54 mg PO DAILY CHOLESTEROL 11/19/23 04/12/24 History losartan 50 mg tablet 50 mg PO BID BP 11/19/23 04/13/24 History mirtazapine 30 mg tablet 30 mg PO QHS DEPRESSION 11/19/23 04/12/24 History apixaban 5 mg tablet (Eliquis) 5 mg PO BID BLOOD THINNER #60 tabs 12/30/23 04/11/24 Rx famotidine 20 mg tablet 20 mg PO BID GERD 3 months #180 12/31/23 04/13/24 Rx tabs clopidogrel 75 mg tablet 75 mg PO DAILY BLOOD THINNER #30 01/15/24 04/06/24 Rx tabs acetaminophen 500 mg tablet 1,000 mg PO Q8 PRN pain 03/06/24 Unknown History trazodone 150 mg tablet 150 mg PO QHS SLEEP 03/06/24 04/12/24 History albuterol sulfate 2.5 mg/3 mL 2.5 mg (3 mL) inhalation Q2H PRN 03/09/24 04/13/24 04:30 Rx (0.083 %) solution for nebulization PRN Dyspnea, wheezing #0 mL menthol 0.44 %-zinc oxide 20.6 % 1 applic topical 4X/DAY SKIN 03/09/24 04/12/24 Rx topical ointment (Calmoseptine) IRRITATION #0 grams nutrition tx glu 120 ml PO 4X/DAY CKD #0 mL 03/09/24 04/12/24 Rx intol,lac-free,soy-fiber 0.06 gram-1.2 kcal/mL liquid (Glucerna 1.2 Morgan) loratadine 10 mg capsule (Allergy 10 mg PO DAILY ALLERGIES 03/30/24 04/12/24 History Relief (loratadine)) oxycodone 5 mg tablet 5 mg PO Q4 PRN Pain Score 4-10 14 04/11/24 Unknown Rx days #30 tabs Allergy/AdvReac Type Severity Reaction Status Date / Time Quinolones Allergy Unknown unknown Verified 04/13/24 06:08 aspirin Allergy Itching, Verified 04/13/24 06:08 Hives levofloxacin (From Levaquin) Allergy Hives, Verified 04/13/24 06:08 Itching Penicillins Allergy Hives, Verified 04/13/24 06:08 Itching Family History Mother CAD (coronary artery disease) Sister Diabetes Father Alcoholism Surgical History History of cardiac catheterization Hx of total shoulder replacement History of cholecystectomy History of coronary artery stent placement History of right shoulder replacement Hx of colonoscopy S/P right rotator cuff repair Hx of repair of right rotator cuff (06/04/22) H/O left knee surgery History of laparoscopic cholecystectomy History of appendectomy H/O cervical spine surgery H/O ventral hernia repair History of left heart catheterization (04/2016) History of coronary artery stent placement (10/16/18) Social History household members: none housing: house current occupational status: disabled Smoking Status: Former smoker quit date: 02/14/15 how long ago did patient quit smokin years ago second hand exposure: Yes alcohol intake: former details: Quit 9 years ago substance use type: marijuana caffeine: Yes Type: coffee what type of physical activity do you participate in: none seatbelt use: always do you feel safe at home: Yes ROS Constitutional Constitutional: Denies chills, fatigue, fever(s) or weakness Cardiovascular Cardiovascular: Denies chest pain Respiratory/Chest Respiratory/Chest: Denies shortness of breath at rest Gastrointestinal Gastrointestinal: Denies abdominal pain Musculoskeletal Musculoskeletal: Denies arthralgias, joint pain or myalgias Physical Exam Const alert, oriented x3, no apparent distress and average body habitus Constitutional Narrative: Pleasant elderly male, sitting comfortably bedside chair, conversing normally, in no acute distress. General Appearance: cooperative and comfortable HEENT normocephalic, head/scalp atraumatic, hearing grossly normal bilaterally, nasal mucous membranes and turbinates normal and moist oral mucous membranes Eyes PERRL, EOMs intact bilaterally and conjunctivae normal Neck full ROM Chest inspection of chest normal Resp normal respiratory effort, normal air movement, no use of accessory muscles and clear to auscultation bilaterally Cardio regular rate, regular rhythm, no murmurs and peripheral pulses 2+ throughout GI normal to inspection, nondistended, normoactive bowel sounds, soft to palpation, non-tender and non-distended Back/Spine normal ROM Extremity Extremity Narrative: Left knee with wrap and ice pack in place. Skin no rashes or lesions noted Neuro moves all extremities and no focal motor deficits Speech: speech normal Psych mental status grossly normal Lab / Micro Data Labs: Laboratory Results - last 24 hr 04/13/24 06:35: Blood Type O POSITIVE, Antibody Screen NEGATIVE Imaging Radiology Impression Knee X-Ray 04/13/24 10:18 IMPRESSION: The patient's postoperative left total knee arthroplasty, with overlying skin yaa. Satisfactory alignment is noted. No complication is seen. Reading Location: [id number] Charges/Coding Visit Charges Inpatient E&M: 48343 Subs Hosp L2
--- NOTE | 2024-04-13 15:41 | CHAPLAIN ---
Type of Pastoral Visit ___ Initial Visit ___ Follow-up Visit ___ On-call Visit ___ General Patient Visit ___ Spiritual Assessment ___ Family Conference ___ Bereavement ___ Rapid Response ___ Code Blue ___ Other (describe below) Pastoral Care Referral From ___ Patient ___ Family ___ Nurse ___ Physician ___ Labor Relations Supervisor ___ Meat Seafood Associate ___ Other (describe below) Sacrament/Intervention ___ Active listening ___ Anointing ___ Confucianist ___ Bereavement ___ Communion ___ Kelsey exploration ___ ___ Life review ___ Prayer ___ Reconciliation ___ Sacrament of Sick ___ Supportive presence ___ Wedding ___ Other (describe below) Pastoral Comments patient is just starting his therapy session
[2024-04-13] MEDS: Ketorolac 15 MG/ML Vial IV (17:05)
[2024-04-13] MEDS: Budesonide Respules 0.5 MG/2 ML AMPUL.NEB. INHALATION (19:07)
[2024-04-13] MEDS: Ipratropium/Albuterol Sulfate 3 ML AMPUL.NEB INHALATION (19:07)
[2024-04-13] MEDS: Senna/Docusate Sodium 1 Tablet 2 TABLET PO (21:05)
[2024-04-13] MEDS: Atorvastatin Calcium 40 MG Tablet PO (21:05)
[2024-04-13] MEDS: OLANZapine 10 MG Tablet PO (21:05)
[2024-04-13] MEDS: Pramipexole Di-HCl 0.25 MG Tablet PO (21:05)
[2024-04-13] MEDS: Tamsulosin HCl 0.4 MG Capsule PO (21:06)
[2024-04-13] MEDS: traZODone 50 MG Tablet 150 MG PO (21:06)
[2024-04-13] MEDS: MESALAMINE 400 MG CAPSULE.DR 1600 MG PO (21:07)
[2024-04-13] MEDS: Mirtazapine 30 MG Tablet PO (21:25)
--- NOTE | 2024-04-13 22:54 | POSTOPAN2_ITS ---
Anesthesia Postop Eval I Sum Postop Eval Completion status Anesthesia document: Postop Eval 1 completed: Yes Anesthesia Postop Eval I Summary Anesthesia Postop Eval I Summary: Anesthesia Postop Eval I: Assessment Summary Airway patent Yes 04/13/24 10:07 [email or web address] Spontaneous unlabored Yes 04/13/24 10:07 [email or web address] respirations Mental status nausea No 04/13/24 10:07 [email or web address] Vomiting No 04/13/24 10:07 [email or web address] Anesthesia Postop Eval I: Fluid Summary Crystalloid volume administer 1,400 04/13/24 10:07 [email or web address] (ml) Colloids volume administered ( ml) Blood Product volume administered (ml) Total IV fluid infused 1,400 04/13/24 10:07 [email or web address] Anesthesia Postop Eval I: Summary Notes Anesthesia Complication No 04/13/24 10:07 [email or web address] Anesthesia Complication Comment: Post-operative progress note Anesthesia: Postop Eval II Evaluation Mental status: Awake and Calm Pain Level: 2 nausea: No Vomiting: No Complications Anesthesia Complication: No
--- NOTE | 2024-04-13 22:54 | PCM.POSTANE2 ---
Anesthesia Postop Eval I Sum Postop Eval Completion status Anesthesia document: Postop Eval 1 completed: Yes Anesthesia Postop Eval I Summary Anesthesia Postop Eval I Summary: Anesthesia Postop Eval I: Assessment Summary Airway patent Yes 04/13/24 10:07 [email or web address] Spontaneous unlabored Yes 04/13/24 10:07 X [email or web address] respirations Mental status nausea No 04/13/24 10:07 [email or web address] Vomiting No 04/13/24 10:07 [email or web address] Anesthesia Postop Eval I: Fluid Summary Crystalloid volume administer 1,400 04/13/24 10:07 X [email or web address] (ml) Colloids volume administered ( ml) Blood Product volume administered (ml) Total IV fluid infused 1,400 04/13/24 10:07 X [email or web address] Anesthesia Postop Eval I: Summary Notes Anesthesia Complication No 04/13/24 10:07 X [email or web address] Anesthesia Complication Comment: Post-operative progress note Anesthesia: Postop Eval II Evaluation Mental status: Awake and Calm Pain Level: 2 nausea: No Vomiting: No Complications Anesthesia Complication: No
[2024-04-14] VITALS (15 sets, daily range): BP systolic 104–138; BP diastolic 50–69; PULSE 72–95; RESP 15–20; TEMP 36.6–36.9; O2SAT 92–98
[2024-04-14] MEDS: Acetaminophen 500 MG Tablet 1000 MG PO ×3 (05:12→21:29)
[2024-04-14] MEDS: Dicyclomine 10 MG Capsule 20 MG PO ×3 (05:12→21:28)
[2024-04-14] MEDS: Cefazolin 2 GM in Syringe IV (05:12)
[2024-04-14] MEDS: APIXABAN 2.5 MG TABLET (WCH) PO ×2 (06:21→21:30)
[2024-04-14] MEDS: Ipratropium/Albuterol Sulfate 3 ML AMPUL.NEB INHALATION ×3 (06:51→19:21)
[2024-04-14] MEDS: Budesonide Respules 0.5 MG/2 ML AMPUL.NEB. INHALATION ×2 (06:52→19:21)
[2024-04-14 07:25] LABS: Hematocrit 23.5 % (40-54); Hemoglobin 7.2 g/dL (13.0-16.5); Mean Corp Hgb Conc 30.6 g/dL (32-36); Mean Corpuscular Hgb 27.2 pg (27.0-32.0); Mean Corpuscular Volume 88.7 fL (80-94); Mean Platelet Vol. 9.5 fl (6.2-12.0); Platelet Count 213 K/mm3 (150-450); RBC Distribution Width CV 16.2 % (11.6-14.6); RBC Distribution Width SD 52.9 fl (35.1-43.9); Red Blood Count 2.65 M/mm3 (4.6-6.2); White Blood Count 6.7 K/mm3 (4.4-11.0)
[2024-04-14 07:29] LABS: Bedside Glucose 113 mg/dL (74-106)
[2024-04-14 07:48] LABS: Anion Gap 7 (5-15); BUN 23 mg/dL (7-18); Calcium,Total 8.4 mg/dL (8.5-10.1); Chloride 110 mmol/L (98-107); Creatinine, Serum 1.35 mg/dL (0.70-1.30); EST Glomerular Filtration Rate 55 mL/min (>60); Est Glom Filt Rate - Afr Amer 66 mL/min (>60); Estimated Creatinine Clearance 51.09 ml/min; Glucose 138 mg/dL (74-106); Potassium 4.4 mmol/L (3.5-5.1); Sodium Level 141 mmol/L (136-145)
--- NOTE | 2024-04-14 08:40 | PCM.PN.HOSP ---
Reason for Visit Reason for Visit: Left knee pain Subjective Subjective Patient underwent total left knee arthroplasty done on 04/05/[address] Cohn. We were consulted postoperatively for medical management. Anticipate patient may need placement at discharge based on chronic comorbidities and previous experience with Mr. Monteiro. Patient states he is having pain in his knee that is different from his previous pain. No other complaints at this time. Objective Data Objective Data Vital Signs: Vital Signs Temp Pulse Resp BP Pulse Ox O2 Del Method O2 Flow Rate 98.1 F 78 18 110/63 96 Room Air 4 04/14/24 04:39 04/14/24 06:30 04/14/24 06:30 04/14/24 04:39 04/14/24 07:47 04/14/24 07:47 04/13/24 10:10 Oxygen Flow Rate (L/min) 4 Oxygen Delivery Method Room Air Weight: 87.543 kg Body Mass Index (BMI) 26.2 Intake & Output: Intake and Output for Last 24 Hours 04/12/24 04/13/24 04/14/24 23:59 23:59 23:59 Intake Total 3937 / 3937 1570 / 1570 Output Total 1060 / 1060 1200 / 1200 Balance 2877 / 2877 370 / 370 Lab / Micro Data 04/14/24 06:18 04/14/24 06:18 Labs: Laboratory Results - last 24 hr 04/13/24 06:17: POC Glucose 113 H 04/14/24 06:18: WBC 6.7, RBC 2.65 L, Hgb 7.2 L, Hct 23.5 L, MCV 88.7, MCH 27.2, MCHC 30.6 L, RDW Std Deviation 52.9 H, RDW Coeff of Tad 16.2 H, Plt Count 213, MPV 9.5, Sodium 141, Potassium 4.4, Chloride 110 H, Carbon Dioxide 25.0, Anion Gap 7, BUN 23 H, Creatinine 1.35 H, Estim Creat Clear Calc 51.09, Est GFR (MDRD) Af Amer 66, Est GFR (MDRD) Non-Af 55 L, BUN/Creatinine Ratio 17.0, Glucose 138 H, Calcium 8.4 L Radiography Diagnostic Testing: Radiology Impression Knee X-Ray 04/13/24 10:18 IMPRESSION: The patient's postoperative left total knee arthroplasty, with overlying skin yaa. Satisfactory alignment is noted. No complication is seen. Reading Location: [address] Physical Exam Const alert, oriented x3, no apparent distress, average body habitus and well nourished Constitutional Narrative: Older, white male, sitting up in a chair at the bedside, left knee is bent at almost 90 degrees, appears comfortable, does not look toxic HEENT head/scalp atraumatic Head and Scalp: normocephalic Resp normal respiratory effort, no retractions, no use of accessory muscles and clear to auscultation bilaterally Auscultation: Negative for rales, rhonchi or wheezes Cardio regular rate, regular rhythm, S1 normal heart sound, S2 normal heart sound, no murmurs, no rub, no gallops and no clicks GI normal to inspection, nondistended, normoactive bowel sounds, soft to palpation and non-tender Extremity no clubbing, cyanosis or edema Extremity Narrative: SOLEDAD hose bilateral lower extremities, left knee with postoperative dressing is bloodstained but dry and no bleeding noted at this time, knee flexion is close to 90 degrees Neuro oriented x3, moves all extremities and no focal motor deficits Speech: speech normal Psych affect normal Psych Narrative: Very pleasant, interacts appropriately Assessment & Plan Assessment/Plan (1) S/P total knee arthroplasty: QUALIFIERS: Laterality: left Qualified Code(s): Z96.652 - Presence of left artificial knee joint (2) Iron deficiency anemia: (3) Status post total left knee replacement: PLAN: Plan Severe left knee osteoarthritis -Postop day 1 left total knee arthroplasty -Management per primary service Acute on chronic anemia -Baseline hemoglobin appears to run between 9 and 10 -7.2 postoperatively -Likely dilutional along with blood loss related to surgery -Will give 1 unit packed red blood cells today -If discharged would recommend repeat CBC in 3 to 5 days -Continue home iron Generalized weakness/history of falls -Dominantly related to his knee issues -Should improve with therapy -Plan is for correction facility at discharge--> back to [facility] with pre-CERT pending History of pulmonary embolism -Diagnosed in March 2023 -Continue Eliquis as directed by orthopedic surgery Moderate persistent asthma/COPD stage II -Continue home inhalers -Stable on room air CAD/essential HTN/HPL -Continue home Plavix -Continue home atorvastatin -Continue home fenofibrate -Hold Vascepa as it is nonformulary -Continue home losartan BPH with obstruction -Continue 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 -Patient states he is urinating without difficulty postoperatively Restless leg syndrome -Continue home Requip Chronic diarrhea -Continue home rifaximin -Continue home mesalamine Crohn's disease/IBS -Continue home budesonide -Continue home Bentyl -Continue outpatient follow-up GERD -Continue home H2 carlos manuel Mild cognitive impairment -Continue home donepezil Schizophrenia/mood disorder NOS -Continue home aripiprazole -Continue home Zyprexa -Continue home desvenlafaxine -Continue home Lamictal -Continue home trazodone Chronic pain -Continue home baclofen -Pain medication as per primary service postoperative joint replacement Chronic allergies -Continue home fexofenadine Restless leg syndrome -Continue home ropinirole BPH with obstruction -Continue Flomax DVT prophylaxis -Anticoagulation per primary service but would get back on Eliquis 5 mg p.o. twice daily as soon as possible due to history of PE in March 2023 Disposition: -Patient okay for discharge whenever pre-CERT is obtained -Would recheck hemoglobin in 3 to 5 days for stability Charges/Coding Visit Charges Inpatient E&M: 23261 Subs Hosp L2
[2024-04-14] MEDS: Famotidine 20 MG Tablet PO ×2 (09:25→21:30)
[2024-04-14] MEDS: Senna/Docusate Sodium 1 Tablet 2 TABLET PO ×2 (09:25→21:28)
[2024-04-14] MEDS: lamoTRIgine 100 MG Tablet 200 MG PO (09:25)
[2024-04-14] MEDS: Furosemide 20 MG Tablet PO (09:26)
[2024-04-14] MEDS: Fenofibrate 48 MG Tablet PO (09:26)
[2024-04-14] MEDS: Budesonide 3 MG CAPSULE.EC 9 MG PO (09:26)
[2024-04-14] MEDS: Potassium Chloride Oral Tablet 20 MEQ PO (09:26)
[2024-04-14] MEDS: Loratadine 10 MG Tablet PO (09:26)
[2024-04-14] MEDS: Losartan Potassium 50 MG Tablet PO ×2 (09:26→21:36)
[2024-04-14] MEDS: Donepezil HCl 10 MG Tablet PO (09:27)
[2024-04-14] MEDS: MESALAMINE 400 MG CAPSULE.DR 1600 MG PO ×2 (09:27→21:30)
[2024-04-14] MEDS: oxyCODONE 5 MG Tablet PO ×3 (09:29→20:13)
--- NOTE | 2024-04-14 10:41 | CASEMGMT ---
Updates sent to [facility] with note requesting that precert be submitted. Damaris Cassidy DC Planning Asst.
[2024-04-14] MEDS: 0.9% Saline Lock 10 ML Syringe IV ×3 (11:17→14:38)
[2024-04-14] MEDS: Ferrous Sulfate 325 MG Tablet PO (11:17)
[2024-04-14] MEDS: 0.9% Normal Saline (100mL Bag) 100 ML 15 ML IV (11:17)
--- NOTE | 2024-04-14 11:19 | CASEMGMT ---
Social Work- Pt is from [facility] and plans to return at discharge. Pt declines list at this time. [facility] notified of pt plans. Plan: [facility]; precert pend ROSALEE Lindsay
--- NOTE | 2024-04-14 12:07 | PN.ORTHO_ITS ---
Subjective Subjective Seen and examined. Complain of pain left knee otherwise no concerns. Denies fevers chills nausea vomit shortness of breath or chest pain Objective Data Objective Data Vital Signs: Vital Signs Temp Pulse Resp BP Pulse Ox O2 Del Method O2 Flow Rate 97.9 F 82 18 105/58 L 95 Room Air 4 04/14/24 11:31 04/14/24 11:31 04/14/24 11:31 04/14/24 11:31 04/14/24 11:04/14/24 11:04/13/24 10:10 Oxygen Flow Rate (L/min) 4 Oxygen Delivery Method Room Air Weight: 193 lb Body Mass Index (BMI) 26.2 Intake & Output: Intake and Output for Last 24 Hours 04/12/24 04/13/24 04/14/24 23:59 23:59 23:59 Intake Total 3937 / 3937 1570.25 / 1570.25 Output Total 1060 / 1060 1600 / 1600 Balance 2877 / 2877 -29.75 / -29.75 Lab / Micro Data 04/14/24 06:18 04/14/24 06:18 Labs: Laboratory Results - last 24 hr 04/13/24 06:17: POC Glucose 113 H 04/13/24 06:35: Blood Type Cancelled, A1 Antigen Typing Cancelled, Rho(D) Type Cancelled, Antibody Screen Cancelled, Crossmatch See Detail 04/14/24 06:18: WBC 6.7, RBC 2.65 L, Hgb 7.2 L, Hct 23.5 L, MCV 88.7, MCH 27.2, MCHC 30.6 L, RDW Std Deviation 52.9 H, RDW Coeff of Tad 16.2 H, Plt Count 213, MPV 9.5, Sodium 141, Potassium 4.4, Chloride 110 H, Carbon Dioxide 25.0, Anion Gap 7, BUN 23 H, Creatinine 1.35 H, Estim Creat Clear Calc 51.09, Est GFR (MDRD) Af Amer 66, Est GFR (MDRD) Non-Af 55 L, BUN/Creatinine Ratio 17.0, Glucose 138 H , Calcium 8.4 L Radiography Diagnostic Testing: Radiology Impression Knee X-Ray 04/13/24 10:18 IMPRESSION: The patient's postoperative left total knee arthroplasty, with overlying skin yaa. Satisfactory alignment is noted. No complication is seen. Reading Location: [id number] Physical Exam Const alert, oriented x3 and no apparent distress Extremity Extremity Narrative: Left knee dressing with some bloody drainage no significant ecchymosis in his thigh or calf compartment soft neurovascular intact EHL tibialis anterior gastrocsoleus intact sensation light touch 2 out of 4 pedal pulse brisk capillary refill. Assessment & Plan Assessment/Plan (1) S/P total knee arthroplasty: QUALIFIERS: Laterality: left Qualified Code(s): Z96.652 - Presence of left artificial knee joint PLAN: Plan Postop day #1 left total knee arthroplasty PT OT weightbearing as tolerated Eliquis 2.5 mg twice daily started today we will increase to preoperative dose 5 mg twice daily tomorrow Dressing to be changed on postop day #3 reinforce dressing now with ABDs. Patient receiving IV packed red blood cells from hospitalist JESSE planning back to senior living tomorrow.
--- NOTE | 2024-04-14 13:42 | NURSING ---
flushing blood tubing
--- NOTE | 2024-04-14 14:35 | NURSING ---
ABD dressing applied to dressing as per order
[2024-04-14] MEDS: Ketorolac 15 MG/ML Vial IV (14:38)
--- NOTE | 2024-04-14 15:12 | CHAPLAIN ---
Type of Pastoral Visit _x__ Initial Visit ___ Follow-up Visit ___ On-call Visit ___ General Patient Visit ___ Spiritual Assessment ___ Family Conference ___ Bereavement ___ Rapid Response ___ Code Blue ___ Other (describe below) Pastoral Care Referral From _x__ Patient ___ Family ___ Nurse ___ Physician ___ Chief Of Field Operations ___ Building Manager ___ Other (describe below) Sacrament/Intervention _x__ Active listening ___ Anointing ___ Roman Catholic ___ Bereavement ___ Communion ___ Kelsey exploration ___ ___ Life review _x__ Prayer ___ Reconciliation ___ Sacrament of Sick ___ Supportive presence ___ Wedding ___ Other (describe below) Pastoral Comments patient has a plan to go to [facility] for rehab; pt is asked about his concerns and he asks for prayers about his cat that is missing from his apartment; pt has asked neighbors to watch for her; prayer given for patient and for his cat; no other needs
--- NOTE | 2024-04-14 15:25 | CASEMGMT ---
[facility] has obtained auth to admit. SW updated. Damaris Cassidy DC Planning Asst.
--- NOTE | 2024-04-14 16:07 | NURSING ---
All documentation by assistant in nursing Yuliya Alvarez reviewed by clinical nursing director Lizbet GOLDN, RN.
--- NOTE | 2024-04-14 16:15 | PCM.DC ---
Discharge Instructions Diet Discharge Diet: No restrictions DC O2, CPAP, BIPAP needs Home O2 Discharge instructions: No Dressing / Incision Weight Bearing Status: Full weight bearing Dressing / Incision Call your doctor if you observe: Shortness of breath and Chest pain Additional Dressing/Incision Instructions:: Ice and elevate lower extremities 2 weeks while not ambulating. Ambulation is encouraged. Weight bearing as tolerated. Use assistive devise for stability. Encourage FULL knee extension and flexion 1 time EVERY time you get up and down and MULTIPLE times per day. No showering until 72 hours after surgery. May begin showering postop day #3. Remove the dressing prior to shower and gently wash with warm water and antibacterial soap then pat dry and place abdominal pad (or plain gauze) and SOLEDAD hose over top. This is to be done daily. Do not submerge for 3 weeks. If not showering daily after the initial 72 hours then you must clean incision and change dressing daily after the dressing comes off, must come off by 7 days postop. Do not allow animals near the incision area. Keep clean. Follow anti-coagulation recommendations as prescribed. Do not take any NSAIDs while on blood thinner. Do not take any additional narcotic pain medication other than what was prescribed on your surgery day without discussing with physician. Narcotic medication can be addictive. Do not drink alcohol while taking narcotics. Supplement narcotic prescription with acetaminophen 1000 mg 4 times a day. Start physical therapy. If you are not currently scheduled for physical therapy or you are unsure of appointment time please call office [facility] to arrange. Call Dr. Cohn with any concerns. Follow Up Care Please Follow Up With: Miguelangel Cohn DO When: 2 weeks Test Results: Test results from this visit will be discussed in further detail at your follow-up appointment, if applicable. Discharge Plan Admission Admit Date/Time: 04/13/24 09:56 Primary Reason for Your Visit: Left total knee arthroplasty Attending Provider: Miguelangel Cohn Primary Care Provider: Eliel Mosley Angelito Consulting Providers: Carmelo Lowe; Anette Burrell Discharge Orders/Prescriptions Prescriptions: Continued icosapent ethyl [Vascepa] 1 gram capsule 2 g PO BID baclofen 10 mg tablet 10 mg PO TID PRN (Reason: PAIN) olanzapine [Zyprexa] 10 mg tablet 10 mg PO QHS donepezil 10 mg tablet 10 mg PO DAILY lamotrigine [Lamictal] 200 mg tablet 200 mg PO DAILY Hermelinda Aerosphere 160-9-4.8 mcg/actuation HFA aerosol inhaler 2 inh inhalation BID Qty: 10.7 11RF budesonide 3 mg capsule,delayed,extend.release 9 mg PO QDAY losartan 50 mg tablet 50 mg PO BID mirtazapine 30 mg tablet 30 mg PO QHS fenofibrate 54 mg tablet 54 mg PO DAILY ropinirole 0.5 MG tablet 0.5 mg PO QHS tamsulosin 0.4 MG capsule,extended release 24hr 0.4 mg PO QHS dicyclomine 20 mg tablet 20 mg PO TID potassium chloride 20 mEq tablet,ER particles/crystals 20 meq PO DAILY ondansetron 4 mg tablet,disintegrating 4 mg PO TID PRN (Reason: NAUSEA ) mesalamine 0.375 gram capsule,extended release 24hr 1.5 g PO BID ferrous sulfate 325 mg (65 mg iron) tablet 325 mg PO DAILY furosemide [Lasix] 20 mg tablet 20 mg PO DAILY Allergy Relief (loratadine) 10 mg capsule 10 mg PO DAILY acetaminophen 500 mg Tablet 1,000 mg PO Q8 PRN (Reason: pain) trazodone 150 mg tablet 150 mg PO QHS albuterol sulfate 2.5 mg /3 mL (0.083 %) Solution For Nebulization 2.5 mg inhalation Q2H PRN PRN (Reason: Dyspnea, wheezing) Qty: 0 0RF Glucerna 1.2 Morgan 0.06-1.2 gram-kcal/mL Liquid 120 ml PO 4X/DAY Qty: 0 0RF menthol-zinc oxide [Calmoseptine] 0.44-20.6 % Ointment 1 applic topical 4X/DAY Qty: 0 0RF Protocol: *Topical Application Instructions APPLICATION INSTRUCTIONS: apply to affected region atorvastatin 40 mg tablet 40 mg PO QHS Qty: 90 3RF Eliquis 5 mg tablet 5 mg PO BID Qty: 60 2RF Patient Comments: STOP 2 DAYS PRIOR TO OR PER ALEA FROM OFFICE famotidine 20 mg tablet 20 mg PO BID 90 Days Qty: 180 1RF Held clopidogrel 75 mg tablet 75 mg PO DAILY Qty: 30 11RF Hold Instructions: Resume on 04/20/24. Patient Comments: STOP 7 DAYS PRIOR TO OR PER ALEA FROM OFFICE Discontinued oxycodone 5 mg tablet 5 mg PO Q4 PRN (Reason: Pain Score 4-10) 14 Days Qty: 30 0RF No Action oxycodone 5 mg tablet 5 - 10 mg PO Q4H PRN (Reason: pain) 60 Days Qty: 60 0RF Referrals / Follow Up: Eliel Mosley, INCIDENT RESPONSE ANALYST-C [Primary Care Provider] - Disposition Disposition (needs filled in before D/C Order can be placed): Retirement Facility
--- NOTE | 2024-04-14 16:27 | TREXTCAR_ITS ---
Diet Diet Order/Speech Therapy: 04/13/24 13:34 Diet: Regular - General DC O2, CPAP, BIPAP needs Home O2 Discharge instructions: No Wound(s) LEFT KNEE: Wound Type: Surgical Incision Dressing Change: Dry Sterile Dressing (clean incision daily with betadine and reapply dry dressing ABD under Quan starting 04/16/24) Therapies Weight Bearing: Full weight bearing Physical Therapy: Eval and Treat Problem/Diagnosis (1) S/P total knee arthroplasty: Status: Acute Code(s): Z96.659 - Presence of unspecified artificial knee joint (2) Iron deficiency anemia: Status: Acute Code(s): D50.9 - Iron deficiency anemia, unspecified (3) Status post total left knee replacement: Status: Acute Code(s): Z96.652 - Presence of left artificial knee joint Plan Postop day #1 left total knee arthroplasty PT OT weightbearing as tolerated resume 5 mg twice daily 04/15/24 Dressing to be changed daily on 04/16/24 clean incision daily with betadine and reapply dry dressing ABD under Quan starting 04/16/24 f/u Dr. Cohn 2 week post op. Allergies/Procedures Done in Hospital Allergies Quinolones Allergy (Unknown, Verified 04/13/24 06:08) unknown aspirin Allergy (Verified 04/13/24 06:08) Itching, Hives levofloxacin (From Levaquin) Allergy (Verified 04/13/24 06:08) Hives, Itching Penicillins Allergy (Verified 04/13/24 06:08) Hives, Itching Type of Care/Length of Stay Estimated LOS: Convalescent Care Less Than 30 days Type of Care Needed: Skilled Rehab Potential: Good Prognosis: Good Additional Orders/Day of Discharge Day of Discharge: 04/14/24 Dietary and Speech Recommendations Dietitian Recommendations/Changes: Continue Regular diet to optimize oral intakes. Recent A1C was very good, will monitor blood sugars. Follow Up Care Please Follow Up With: Miguelangel Cohn DO When: 2 week Discharge Plan Admission Admit Date/Time: 04/13/24 09:56 Primary Reason for Your Visit: Left total knee arthroplasty Attending Provider: Miguelangel Cohn Primary Care Provider: Eliel Mosley [facility] Consulting Providers: Carmelo Lowe; Anette Burrell Discharge Orders/Prescriptions Prescriptions: New oxycodone 5 mg tablet 5 - 10 mg PO Q4H PRN (Reason: pain) 7 Days Qty: 60 0RF Continued icosapent ethyl [Vascepa] 1 gram capsule 2 g PO BID baclofen 10 mg tablet 10 mg PO TID PRN (Reason: PAIN) olanzapine [Zyprexa] 10 mg tablet 10 mg PO QHS donepezil 10 mg tablet 10 mg PO DAILY lamotrigine [Lamictal] 200 mg tablet 200 mg PO DAILY Breztri Aerosphere 160-9-4.8 mcg/actuation HFA aerosol inhaler 2 inh inhalation BID Qty: 10.7 11RF budesonide 3 mg capsule,delayed,extend.release 9 mg PO QDAY losartan 50 mg tablet 50 mg PO BID mirtazapine 30 mg tablet 30 mg PO QHS fenofibrate 54 mg tablet 54 mg PO DAILY ropinirole 0.5 MG tablet 0.5 mg PO QHS tamsulosin 0.4 MG capsule,extended release 24hr 0.4 mg PO QHS dicyclomine 20 mg tablet 20 mg PO TID potassium chloride 20 mEq tablet,ER particles/crystals 20 meq PO DAILY ondansetron 4 mg tablet,disintegrating 4 mg PO TID PRN (Reason: NAUSEA ) mesalamine 0.375 gram capsule,extended release 24hr 1.5 g PO BID ferrous sulfate 325 mg (65 mg iron) tablet 325 mg PO DAILY furosemide [Lasix] 20 mg tablet 20 mg PO DAILY Allergy Relief (loratadine) 10 mg capsule 10 mg PO DAILY acetaminophen 500 mg Tablet 1,000 mg PO Q8 PRN (Reason: pain) trazodone 150 mg tablet 150 mg PO QHS albuterol sulfate 2.5 mg /3 mL (0.083 %) Solution For Nebulization 2.5 mg inhalation Q2H PRN PRN (Reason: Dyspnea, wheezing) Qty: 0 0RF Glucerna 1.2 Morgan 0.06-1.2 gram-kcal/mL Liquid 120 ml PO 4X/DAY Qty: 0 0RF menthol-zinc oxide [Calmoseptine] 0.44-20.6 % Ointment 1 applic topical 4X/DAY Qty: 0 0RF Protocol: *Topical Application Instructions APPLICATION INSTRUCTIONS: apply to affected region atorvastatin 40 mg tablet 40 mg PO QHS Qty: 90 3RF Eliquis 5 mg tablet 5 mg PO BID Qty: 60 2RF Patient Comments: STOP 2 DAYS PRIOR TO OR PER ALEA FROM OFFICE famotidine 20 mg tablet 20 mg PO BID 90 Days Qty: 180 1RF Held clopidogrel 75 mg tablet 75 mg PO DAILY Qty: 30 11RF Hold Instructions: Resume on 04/20/24. Patient Comments: STOP 7 DAYS PRIOR TO OR PER AELA FROM OFFICE Discontinued oxycodone 5 mg tablet 5 mg PO Q4 PRN (Reason: Pain Score 4-10) 14 Days Qty: 30 0RF Referrals / Follow Up: Eliel Mosley Angelito, [employer]-C [Primary Care Provider] - Disposition Disposition (needs filled in before D/C Order can be placed): Nursing Home Facility (1) S/P total knee arthroplasty Qualifiers: Laterality: left Qualified Code(s): Z96.652 - Presence of left artificial knee joint
--- NOTE | 2024-04-14 16:30 | PCM.DC.SUM ---
Providers Date of Admission: 04/13/24 Primary Care Physician: GAURAV Walden Consultations 04/13/24 09:59 Consult: Hospitalist Routine Consulting Provider: Carmelo Lowe Reason for Consult: post op medical management EMERGENT Consult: No MD Notified: Yes Date Notified: 04/13/24 Time Notified: 14:00 Method of Notification: Text Reason For Visit: Left Total Knee Replacement Robotic Arm Assisted Diagnosis Discharge Diagnosis (1) S/P total knee arthroplasty: Status: Acute Code(s): Z96.659 - Presence of unspecified artificial knee joint Qualifiers: Laterality: left Qualified Code(s): Z96.652 - Presence of left artificial knee joint (2) Iron deficiency anemia: Status: Acute Code(s): D50.9 - Iron deficiency anemia, unspecified (3) Status post total left knee replacement: Status: Acute Code(s): Z96.652 - Presence of left artificial knee joint Plan Postop day #1 left total knee arthroplasty PT OT weightbearing as tolerated resume 5 mg twice daily 04/15/24 Dressing to be changed daily on 04/16/24 clean incision daily with betadine and reapply dry dressing ABD under Soledad starting 04/16/24 f/u Dr. Cohn 2 week post op. Medications at Discharge Home Medications ropinirole 0.5 mg tablet 0.5 mg PO QHS RESTLESS LEGS 04/23/16 tamsulosin 0.4 mg capsule 0.4 mg PO QHS PROSTATE 01/30/17 baclofen 10 mg tablet 10 mg PO TID PRN PAIN 11/09/20 icosapent ethyl 1 gram capsule (Vascepa) 2 g PO BID HEART 11/09/20 donepezil 10 mg tablet 10 mg PO DAILY ALZHEIMERS 10/23/21 lamotrigine 200 mg tablet (Lamictal) 200 mg PO DAILY MOOD 10/23/21 olanzapine 10 mg tablet (Zyprexa) 10 mg PO QHS MOOD 10/23/21 budesonide 160 mcg-glycopyr 9 mcg-formot 4.8 mcg/actuation HFA inhaler (Breztri Aerosphere) 2 inh inhalation BID COPD #10.7 grams 01/28/23 dicyclomine 20 mg tablet 20 mg PO TID IRRITABLE BOWELS 04/15/23 ondansetron 4 mg disintegrating tablet 4 mg PO TID PRN NAUSEA 04/15/23 potassium chloride 20 mEq tablet,extended release(part/cryst) 20 meq PO DAILY SUPPLEMENT 04/15/23 atorvastatin 40 mg tablet 40 mg PO QHS CHOLESTEROL #90 tabs 06/24/23 mesalamine 0.375 gram capsule,extended release 24 hr 1.5 g PO BID IBS 07/10/23 ferrous sulfate 325 mg (65 mg iron) tablet 325 mg PO DAILY SUPPLEMENT 09/02/23 furosemide 20 mg tablet (Lasix) 20 mg PO DAILY COPD 09/02/23 budesonide 3 mg capsule,delayed,extended release 9 mg PO QDAY IBS 10/13/23 fenofibrate 54 mg tablet 54 mg PO DAILY CHOLESTEROL 11/19/23 losartan 50 mg tablet 50 mg PO BID BP 11/19/23 mirtazapine 30 mg tablet 30 mg PO QHS DEPRESSION 11/19/23 apixaban 5 mg tablet (Eliquis) 5 mg PO BID BLOOD THINNER #60 tabs 12/30/23 famotidine 20 mg tablet 20 mg PO BID GERD 3 months #180 tabs 12/31/23 clopidogrel 75 mg tablet 75 mg PO DAILY BLOOD THINNER #30 tabs 01/15/24 acetaminophen 500 mg tablet 1,000 mg PO Q8 PRN pain 03/06/24 trazodone 150 mg tablet 150 mg PO QHS SLEEP 03/06/24 albuterol sulfate 2.5 mg/3 mL (0.083 %) solution for nebulization 2.5 mg (3 mL) inhalation Q2H PRN PRN Dyspnea, wheezing #0 mL 03/09/24 menthol 0.44 %-zinc oxide 20.6 % topical ointment (Calmoseptine) 1 applic topical 4X/DAY SKIN IRRITATION #0 grams 03/09/24 nutrition tx glu intol,lac-free,soy-fiber 0.06 gram-1.2 kcal/mL liquid (Glucerna 1.2 Morgan) 120 ml PO 4X/DAY CKD #0 mL 03/09/24 loratadine 10 mg capsule (Allergy Relief (loratadine)) 10 mg PO DAILY ALLERGIES 03/30/24 oxycodone 5 mg tablet 5 - 10 mg (1 - 2 x 5 mg) PO Q4H PRN pain 7 days #60 tabs 04/14/24 Hospital Course Operations total knee replacement Summary of Care Provided Hospital Course: The patient has with long-standing history of knee DJD and has failed conservative treatment. Patient wished to undergo elective [robotic assisted] total knee arthroplasty and underwent the aforementioned procedure on the admission date without complications. patient did receive pre-and postoperative antibiotics which were discontinued within 23 hours postoperatively. patient did receive [a spinal anesthesia and a adductor canal block ]and the pain was controlled postoperatively with p.o. and IV pain medication. There was minimal intraoperative blood loss he did [receive 2 g of tranexamic acid ] he did require packed red blood cell transfusion postoperatively for iron deficiency anemia. patient was seen by physical therapy we will continue physical therapy upon return to the halfway stressing the importance of full knee extension and flexion. Postoperatively was started on both mechanical and chemical DVT prophylaxis for which patient will continue his preoperative dose of Eliquis 5 mg twice daily to begin on 04/15/2024 Mepilex AG dressing will stay on for 72 hours postoperatively at which time patient will begin showering on postop day #3 with daily dressing changes. Encouraged patient to achieve full range of motion as soon as possible, Patient will [start outpatient physical therapy] and will follow-up in the office in 2 weeks for wound check. There is no intrahospital complications . Weight / BMI Weight Weight: 193 lb Body Mass Index (BMI) 26.2 ABG / Lab / Microbiology Data 04/14/24 06:18 04/14/24 06:18 Laboratory: Laboratory Results - last 24 hr 04/13/24 06:17: POC Glucose 113 H 04/13/24 06:35: Blood Type Cancelled, A1 Antigen Typing Cancelled, Rho(D) Type Cancelled, Antibody Screen Cancelled, Crossmatch See Detail 04/14/24 06:18: WBC 6.7, RBC 2.65 L, Hgb 7.2 L, Hct 23.5 L, MCV 88.7, MCH 27.2, MCHC 30.6 L, RDW Std Deviation 52.9 H, RDW Coeff of Tad 16.2 H, Plt Count 213, MPV 9.5, Sodium 141, Potassium 4.4, Chloride 110 H, Carbon Dioxide 25.0, Anion Gap 7, BUN 23 H, Creatinine 1.35 H, Estim Creat Clear Calc 51.09, Est GFR (MDRD) Af Amer 66, Est GFR (MDRD) Non-Af 55 L, BUN/Creatinine Ratio 17.0, Glucose 138 H, Calcium 8.4 L D/C Instructions Discharge Diet: No restrictions Weight Bearing Status: Full weight bearing Call your doctor if you observe: Shortness of breath and Chest pain Additional Dressing/Incision Instructions: Ice and elevate lower extremities 2 weeks while not ambulating. Ambulation is encouraged. Weight bearing as tolerated. Use assistive devise for stability. Encourage FULL knee extension and flexion 1 time EVERY time you get up and down and MULTIPLE times per day. No showering until 72 hours after surgery. May begin showering postop day #3. Remove the dressing prior to shower and gently wash with warm water and antibacterial soap then pat dry and place abdominal pad (or plain gauze) and SOLEDAD hose over top. This is to be done daily. Do not submerge for 3 weeks. If not showering daily after the initial 72 hours then you must clean incision and change dressing daily after the dressing comes off, must come off by 7 days postop. Do not allow animals near the incision area. Keep clean. Follow anti-coagulation recommendations as prescribed. Do not take any NSAIDs while on blood thinner. Do not take any additional narcotic pain medication other than what was prescribed on your surgery day without discussing with physician. Narcotic medication can be addictive. Do not drink alcohol while taking narcotics. Supplement narcotic prescription with acetaminophen 1000 mg 4 times a day. Start physical therapy. If you are not currently scheduled for physical therapy or you are unsure of appointment time please call office [facility] to arrange. Call Dr. Cohn with any concerns. DC O2, CPAP, BIPAP Needs Home O2 Discharge instructions: No Please Follow Up With: Miguelangel Cohn DO When: 2 weeks Meaningful Use Info Meaningful Use Meaningful Use Diagnoses (Choose all that apply): None applicable Ischemic Stroke Statin Dosing Therapy Reference: STATIN DOSE THERAPY REFERENCE: * Patients > 75 years receive moderate or high dose statin therapy. * Patients 75 years or YOUNGER should receive HIGH intensity statin dose unless contraindicated. You will be required to document reason for non-treatment if statin daily dose does not meet guidelines. HIGH DOSE STATIN THERAPY DAILY Atorvastatin > than or = to 40 mg Rosuvastatin > than or = to 20 mg Amlodipine + Atorvastatin > than or = to 2.5/40 mg Ezetimibe + Simvastatin 10/80 mg Simvastatin 80mg Discharge Plan Admission Admit Date/Time: 04/13/24 09:56 Primary Reason for Your Visit: Left total knee arthroplasty Attending Provider: Miguelangel Cohn Primary Care Provider: Eliel Mosley [facility] Consulting Providers: Carmelo Lowe; Anette Burrell Discharge Orders/Prescriptions Prescriptions: New oxycodone 5 mg tablet 5 - 10 mg PO Q4H PRN (Reason: pain) 7 Days Qty: 60 0RF Continued icosapent ethyl [Vascepa] 1 gram capsule 2 g PO BID baclofen 10 mg tablet 10 mg PO TID PRN (Reason: PAIN) olanzapine [Zyprexa] 10 mg tablet 10 mg PO QHS donepezil 10 mg tablet 10 mg PO DAILY lamotrigine [Lamictal] 200 mg tablet 200 mg PO DAILY Breztri Aerosphere 160-9-4.8 mcg/actuation HFA aerosol inhaler 2 inh inhalation BID Qty: 10.7 11RF budesonide 3 mg capsule,delayed,extend.release 9 mg PO QDAY losartan 50 mg tablet 50 mg PO BID mirtazapine 30 mg tablet 30 mg PO QHS fenofibrate 54 mg tablet 54 mg PO DAILY ropinirole 0.5 MG tablet 0.5 mg PO QHS tamsulosin 0.4 MG capsule,extended release 24hr 0.4 mg PO QHS dicyclomine 20 mg tablet 20 mg PO TID potassium chloride 20 mEq tablet,ER particles/crystals 20 meq PO DAILY ondansetron 4 mg tablet,disintegrating 4 mg PO TID PRN (Reason: NAUSEA ) mesalamine 0.375 gram capsule,extended release 24hr 1.5 g PO BID ferrous sulfate 325 mg (65 mg iron) tablet 325 mg PO DAILY furosemide [Lasix] 20 mg tablet 20 mg PO DAILY Allergy Relief (loratadine) 10 mg capsule 10 mg PO DAILY acetaminophen 500 mg Tablet 1,000 mg PO Q8 PRN (Reason: pain) trazodone 150 mg tablet 150 mg PO QHS albuterol sulfate 2.5 mg /3 mL (0.083 %) Solution For Nebulization 2.5 mg inhalation Q2H PRN PRN (Reason: Dyspnea, wheezing) Qty: 0 0RF Glucerna 1.2 Morgan 0.06-1.2 gram-kcal/mL Liquid 120 ml PO 4X/DAY Qty: 0 0RF menthol-zinc oxide [Calmoseptine] 0.44-20.6 % Ointment 1 applic topical 4X/DAY Qty: 0 0RF Protocol: *Topical Application Instructions APPLICATION INSTRUCTIONS: apply to affected region atorvastatin 40 mg tablet 40 mg PO QHS Qty: 90 3RF Eliquis 5 mg tablet 5 mg PO BID Qty: 60 2RF Patient Comments: STOP 2 DAYS PRIOR TO OR PER ALEA FROM OFFICE famotidine 20 mg tablet 20 mg PO BID 90 Days Qty: 180 1RF Held clopidogrel 75 mg tablet 75 mg PO DAILY Qty: 30 11RF Hold Instructions: Resume on 04/20/24. Patient Comments: STOP 7 DAYS PRIOR TO OR PER ALEA FROM OFFICE Discontinued oxycodone 5 mg tablet 5 mg PO Q4 PRN (Reason: Pain Score 4-10) 14 Days Qty: 30 0RF Referrals / Follow Up: Eliel Mosley Angelito, [facility] [Primary Care Provider] - Disposition Disposition (needs filled in before D/C Order can be placed): Group Home Facility
--- NOTE | 2024-04-14 16:40 | CASEMGMT ---
Social Work Precert has been obtained.? Physician updated and pt is ready for discharge today.? DCA notified of discharge readiness. Final discharge arrangements and notification to patient/family as per discharge retail planning manager.? ? Disposition:[facility], skilled level of care under convalescent stay. ROSALEE Lindsay
--- NOTE | 2024-04-14 17:03 | CASEMGMT ---
Discharge orders, signed med list, and transport time sent to [facility]. Physicians will transport patient by wheelchair at 7:30p. Nursing, SW, and pt updated. left for pts daughter (Bethany). Damaris Cassidy DC Planning Asst.
[2024-04-14] MEDS: Pramipexole Di-HCl 0.25 MG Tablet PO (21:28)
[2024-04-14] MEDS: Atorvastatin Calcium 40 MG Tablet PO (21:28)
[2024-04-14] MEDS: traZODone 50 MG Tablet 150 MG PO (21:28)
[2024-04-14] MEDS: OLANZapine 10 MG Tablet PO (21:28)
[2024-04-14] MEDS: Mirtazapine 30 MG Tablet PO (21:28)
[2024-04-14] MEDS: Tamsulosin HCl 0.4 MG Capsule PO (21:29)
--- NOTE | 2024-04-14 21:52 | NURSING ---
transport will be here in 20 to 30 minutes
== END 2024-04-14 23:00 | disposition skilled nursing facility (03) | DRG 470 ==
LOC: MS3 12:56
PROVIDERS: Admitting Provider Orthopaedic Surgery; PCP Nurse Practitioner Family; Referring Provider Orthopaedic Surgery; Visit Provider Orthopaedic Surgery
PROC: 0SRD0JZ Replacement of Left Knee Joint with Synthetic Substitute, Open Approach (ICD-10-PCS; CPT 27447; principal; 2024-04-13 07:00)
DX: M17.12 Unilateral primary osteoarthritis, left knee (principal); N13.8 Other obstructive and reflux uropathy; E11.9 Type 2 diabetes mellitus without complications; D50.9 Iron deficiency anemia, unspecified; E78.00 Pure hypercholesterolemia, unspecified; I11.0 Hypertensive heart disease with heart failure; I50.9 Heart failure, unspecified; J43.9 Emphysema, unspecified; M06.0 Rheumatoid arthritis without rheumatoid factor; F31.9 Bipolar disorder, unspecified; G25.81 Restless legs syndrome; F20.9 Schizophrenia, unspecified; F12.90 Cannabis use, unspecified, uncomplicated; M54.50 Low back pain, unspecified; I25.10 Atherosclerotic heart disease of native coronary artery without angina pectoris; Z87.891 Personal history of nicotine dependence; Z79.01 Long term (current) use of anticoagulants; Z95.5 Presence of coronary angioplasty implant and graft; Z79.02 Long term (current) use of antithrombotics/antiplatelets; G89.4 Chronic pain syndrome; Z79.51 Long term (current) use of inhaled steroids; Z79.891 Long term (current) use of opiate analgesic; N40.1 Benign prostatic hyperplasia with lower urinary tract symptoms; Z88.6 Allergy status to analgesic agent; Z88.1 Allergy status to other antibiotic agents; Z88.8 Allergy status to other drugs, medicaments and biological substances
CPT/HCPCS: 36415; 73560; 80048; 82962; 85027; 86850; 86900; 86901; 88305; 88311; 94640; 94668; 97162; 97166; 97530; 97802; C1776; P9016; A4216; J2405; J3475

== ENCOUNTER 2024-04-16 10:45 | Inpatient (IN) | payer MEDICARE, MEDICAID, SELFPAY ==
[2023-09-09 09:43] VITALS: BMI 21.8
[2024-04-16] VITALS (9 sets, daily range): BP systolic 102–130; BP diastolic 55–73; PULSE 87–105; RESP 13–22; TEMP 36.4–37; O2SAT 94–100; BMI 28.0; BMI 25.6
--- NOTE | 2024-04-16 11:17 | RAD_ITS ---
PROCEDURE: CHEST PA AND LATERAL REASON FOR EXAM: Shortness of breath since yesterday. Wheezing and cough. Recent total knee replacement. COMPARISON: Comparison is made with prior study dated January 11, 2024. TECHNIQUE: AP and lateral views were obtained. FINDINGS: EKG electrodes are seen. The heart size is normal. The mediastinal contour is unremarkable. The lungs are clear. Demineralization of the thoracic vertebrae. Increased kyphosis. Status post right shoulder replacement. RAD/Chest PA and Lateral IMPRESSION: NO ACUTE FINDINGS. Reading Location: [place] [id number]
--- NOTE | 2024-04-16 11:20 | EX.ED.DYSGE1 ---
HPI <GAURAV Chicas - Last Filed: 04/16/24 21:45> History of Present Illness Chief Complaint: Shortness of Breath Narrative Narrative: Patient is a 74-year-old male with history of CAD, stents in his heart who is currently on Plavix as well as Eliquis, history of schizophrenia, COPD. Patient had a total left knee replacement 3 days ago. Patient was off his Eliquis for 2 days prior, and started the Eliquis the day after surgery. He was unable to walk and had to go to a [facility] for rehab. Patient was having worsening coughing, feeling of shortness of breath, was placed on 2 L of nasal cannula oxygen. The patient has worsening cough, is getting more short of breath, and he had to be bumped up to 5 L. Came in by ambulance. Patient states he has low-grade fever, harsh cough and feels generalized fatigue. [facility] <GAURAV Chicas - Last Filed: 04/16/24 21:45> [facility] Medical History History of steroid therapy Diabetes Walker as ambulation aid History of renal disease Anemia Excessive bleeding Injury of head and neck History of ulceration Gastric reflux Sleep apnea History of pain when walking Cardiology follow-up encounter History of irregular heartbeat Asthma DVT (deep venous thrombosis) Frequent falls Multiple contusions Head injury Adult failure to thrive Schizophrenia Primary osteoarthritis, right shoulder Severe malnutrition Adult failure to thrive Localized osteoarthritis of right knee Pulmonary embolism Ventral hernia, recurrent Rheumatoid arthritis Chronic pain Kidney disease Congestive heart failure (CHF) Complete rotator cuff tear Marijuana use Shoulder impingement SLAP tear of shoulder Acromioclavicular joint arthritis Essential hypertension (08/02/20) Chronic obstructive lung disease (08/02/20) Malaise and fatigue (08/02/20) Low back pain (03/01/11) Displacement of lumbar intervertebral disc without myelopathy (03/01/11) Brachial neuritis (05/31/11) Wears glasses Dementia Alcohol use Ambulates with cane Arthritis Prostate disease High cholesterol Back pain History of IBS Emphysema, unspecified History of stress test History of echocardiogram Osteoarthritis of left knee Bipolar disorder Diabetes GERD (gastroesophageal reflux disease) Former smoker COPD (chronic obstructive pulmonary disease) Myocardial infarct Hypertension Migraines Cervical spondylosis Cervical radiculitis Partial tear of right rotator cuff Essential (primary) hypertension Smoking greater than 40 pack years Dementia PVCs (premature ventricular contractions) Lung nodule < 6cm on CT Cannabis dependence DDD (degenerative disc disease) BPH (benign prostatic hyperplasia) Anxiety Depression Atherosclerotic heart disease of [place] coronary artery without angina pectoris Hyperlipidemia Trigger finger MONIQUE (obstructive sleep apnea) Stage 2 moderate COPD by GOLD classification Peptic ulcer disease Restless leg syndrome Schizophrenia Asthma History of pulmonary embolism Home Medications ?Medication ?Instructions ?Recorded ?Last Taken ?Type ropinirole 0.5 mg tablet 0.5 mg PO QHS RESTLESS LEGS 04/23/16 04/12/24 History tamsulosin 0.4 mg capsule 0.4 mg PO QHS PROSTATE 01/30/17 04/12/24 History baclofen 10 mg tablet 10 mg PO TID PRN PAIN 11/09/20 07/09/23 History icosapent ethyl 1 gram capsule 2 g PO BID HEART 11/09/20 04/12/24 History (Vascepa) donepezil 10 mg tablet 10 mg PO DAILY ALZHEIMERS 10/23/21 04/12/24 History lamotrigine 200 mg tablet 200 mg PO DAILY MOOD 10/23/21 04/13/24 History (Lamictal) olanzapine 10 mg tablet (Zyprexa) 10 mg PO QHS MOOD 10/23/21 04/12/24 History budesonide 160 mcg-glycopyr 9 2 inh inhalation BID COPD #10.7 01/28/23 04/13/24 Rx mcg-formot 4.8 mcg/actuation HFA grams inhaler (Breztri Aerosphere) dicyclomine 20 mg tablet 20 mg PO TID IRRITABLE BOWELS 04/15/23 04/12/24 History ondansetron 4 mg disintegrating 4 mg PO TID PRN NAUSEA 04/15/23 03/05/24 History tablet potassium chloride 20 mEq 20 meq PO DAILY SUPPLEMENT 04/15/23 04/12/24 History tablet,extended release(part/cryst) atorvastatin 40 mg tablet 40 mg PO QHS CHOLESTEROL #90 tabs 06/24/23 04/12/24 Rx mesalamine 0.375 gram 1.5 g PO BID IBS 07/10/23 04/12/24 History capsule,extended release 24 hr ferrous sulfate 325 mg (65 mg 325 mg PO DAILY SUPPLEMENT 09/02/23 04/12/24 History iron) tablet furosemide 20 mg tablet (Lasix) 20 mg PO DAILY COPD 09/02/23 04/12/24 History budesonide 3 mg 9 mg PO QDAY IBS 10/13/23 04/12/24 History capsule,delayed,extended release fenofibrate 54 mg tablet 54 mg PO DAILY CHOLESTEROL 11/19/23 04/12/24 History losartan 50 mg tablet 50 mg PO BID BP 11/19/23 04/13/24 History mirtazapine 30 mg tablet 30 mg PO QHS DEPRESSION 11/19/23 04/12/24 History apixaban 5 mg tablet (Eliquis) 5 mg PO BID BLOOD THINNER #60 tabs 12/30/23 04/11/24 Rx famotidine 20 mg tablet 20 mg PO BID GERD 3 months #180 12/31/23 04/13/24 Rx tabs clopidogrel 75 mg tablet 75 mg PO DAILY BLOOD THINNER #30 01/15/24 04/06/24 Rx Held on 04/14/24. tabs Instructions: Resume on 04/20/24. acetaminophen 500 mg tablet 1,000 mg PO Q8 PRN pain 03/06/24 Unknown History trazodone 150 mg tablet 150 mg PO QHS SLEEP 03/06/24 04/12/24 History albuterol sulfate 2.5 mg/3 mL 2.5 mg (3 mL) inhalation Q2H PRN 03/09/24 04/13/24 04:30 Rx (0.083 %) solution for nebulization PRN Dyspnea, wheezing #0 mL menthol 0.44 %-zinc oxide 20.6 % 1 applic topical 4X/DAY SKIN 03/09/24 04/12/24 Rx topical ointment (Calmoseptine) IRRITATION #0 grams nutrition tx glu 120 ml PO 4X/DAY CKD #0 mL 03/09/24 04/12/24 Rx intol,lac-free,soy-fiber 0.06 gram-1.2 kcal/mL liquid (Glucerna 1.2 Morgan) loratadine 10 mg capsule (Allergy 10 mg PO DAILY ALLERGIES 03/30/24 04/12/24 History Relief (loratadine)) oxycodone 5 mg tablet 5 - 10 mg (1 - 2 x 5 mg) PO Q4H 04/15/24 Unknown Rx PRN pain 60 days #60 tabs Allergy/AdvReac Type Severity Reaction Status Date / Time Quinolones Allergy Unknown unknown Verified 04/16/24 10:45 aspirin Allergy Itching, Verified 04/16/24 10:45 Hives levofloxacin (From Levaquin) Allergy Hives, Verified 04/16/24 10:45 Itching Penicillins Allergy Hives, Verified 04/16/24 10:45 Itching Family History Mother CAD (coronary artery disease) Sister Diabetes Father Alcoholism Surgical History History of cardiac catheterization Hx of total shoulder replacement History of cholecystectomy History of coronary artery stent placement History of right shoulder replacement Hx of colonoscopy S/P right rotator cuff repair Hx of repair of right rotator cuff (06/04/22) H/O left knee surgery History of laparoscopic cholecystectomy History of appendectomy H/O cervical spine surgery H/O ventral hernia repair History of left heart catheterization (04/2016) History of coronary artery stent placement (10/16/18) Social History household members: none housing: house current occupational status: disabled Smoking Status: Former smoker quit date: 02/14/15 how long ago did patient quit smokin years ago second hand exposure: Yes alcohol intake: former details: Quit 9 years ago substance use type: marijuana caffeine: Yes Type: coffee what type of physical activity do you participate in: none seatbelt use: always do you feel safe at home: Yes ROS <GAURAV Chicas - Last Filed: 04/16/24 21:45> ROS ED ROS Narrative Constitutional: Negative for weight loss. Positive fever, chills, weakness Eyes: Negative for vision loss, vision change, double vision ENT: Negative for any sore throat, ear pain, congestion Cardiovascular: Negative for any chest pain, tightness, palpitations Respiratory: Negative for any sputum production, hemoptysis. Positive for cough dyspnea, dyspnea on exertion, orthopnea Gastrointestinal: Negative for any abdominal pain, nausea, vomiting, diarrhea, constipation, blood in stool, blood in vomit : Negative for any urinary frequency, dysuria, retention, blood in urine Muscle skeletal: Negative for any neck pain, back pain. Positive for left knee pain Neurological: Negative for any headache, syncope, dizziness Skin: Negative for any rashes, itching, abrasions, lacerations Psychiatric: Negative for any depression, anxiety, stress, suicidal ideation, homicidal ideation Hematologic: Negative for any excessive bruising, easy bleeding EXAM <Julien DevineGAURAV - Last Filed: 04/16/24 21:45> Physical Exam Narrative Exam Narrative: Vital signs reviewed. Patient slightly tachycardic, temperature 99.1, patient slight tachypneic. On 5 L, patient is 98% HEET: Head normocephalic atraumatic, TMs clear bilaterally. Posterior pharynx is clear, moist mucous membranes. Nares clear bilaterally. Neck: Supple with no lymphadenopathy or tenderness. No signs of meningismus. Cardiac: Regular rate and rhythm no murmurs gallops or rubs, equal peripheral pulses bilaterally. Respiratory: Patient has rhonchorous breath sounds throughout, expiratory wheeze throughout pulmonary exam. No chest tenderness. Abdomen: Soft, nontender, nondistended. No abdominal bruit or pulsatile masses. No hepatosplenomegaly Extremities: Right leg was unremarkable, left leg did have recent total knee replacement. There is no tenderness to the calf, the calf is soft, there is no significant swelling. +2 pedal pulse. The area around the incision does look slightly erythematous, low suspicion for cellulitis however this could be related to inflammation. Neuro: Cranial nerves II through XII intact, no focal neurological deficits. Skin: Clean dry and intact with no rash, purpura, petechiae, vesicles or pustules. Backs/flank: No CVA tenderness, no midline spinal tenderness, no deformity. Psych: Normal mood and affect. No SI, HI or acute psychosis. Const Vital Signs: 04/16/24 10:45 04/16/24 10:49 04/16/24 10:49 Temperature 98.6 F 98.6 F Temperature Source Oral Oral Pulse Rate 105 H 105 H Respiratory Rate 18 18 Respiratory Effort Short of Breath Respiratory Depth Shallow Respiratory Pattern Normal Blood Pressure 128/68 H 128/68 H Blood Pressure Mean 88 88 Pulse Ox 98 98 Oxygen Delivery Method Nasal Cannula Nasal Cannula Nasal Cannula Oxygen Flow Rate (L/min) 4 4 04/16/24 10:57 04/16/24 11:26 04/16/24 11:37 Temperature Temperature Source Pulse Rate 87 Respiratory Rate 22 H Respiratory Effort Respiratory Depth Respiratory Pattern Tachypnea Blood Pressure Blood Pressure Mean Pulse Ox 97 Oxygen Delivery Method Nasal Cannula Nasal Cannula Oxygen Flow Rate (L/min) 5 5 04/16/24 12:45 Temperature Temperature Source Pulse Rate 100 Respiratory Rate 13 Respiratory Effort Respiratory Depth Respiratory Pattern Blood Pressure 102/62 Blood Pressure Mean 75 Pulse Ox 100 Oxygen Delivery Method Nasal Cannula Oxygen Flow Rate (L/min) 5 <Thompson Villa MD - Last Filed: 04/16/24 21:49> Physical Exam Const Vital Signs: 04/16/24 10:45 04/16/24 10:49 04/16/24 10:49 Temperature 98.6 F 98.6 F Temperature Source Oral Oral Pulse Rate 105 H 105 H Respiratory Rate 18 18 Respiratory Effort Short of Breath Respiratory Depth Shallow Respiratory Pattern Normal Blood Pressure 128/68 H 128/68 H Blood Pressure Mean 88 88 Pulse Ox 98 98 Oxygen Delivery Method Nasal Cannula Nasal Cannula Nasal Cannula Oxygen Flow Rate (L/min) 4 4 04/16/24 10:57 04/16/24 11:26 04/16/24 11:37 Temperature Temperature Source Pulse Rate 87 Respiratory Rate 22 H Respiratory Effort Respiratory Depth Respiratory Pattern Tachypnea Blood Pressure Blood Pressure Mean Pulse Ox 97 Oxygen Delivery Method Nasal Cannula Nasal Cannula Oxygen Flow Rate (L/min) 5 5 04/16/24 12:45 Temperature Temperature Source Pulse Rate 100 Respiratory Rate 13 Respiratory Effort Respiratory Depth Respiratory Pattern Blood Pressure 102/62 Blood Pressure Mean 75 Pulse Ox 100 Oxygen Delivery Method Nasal Cannula Oxygen Flow Rate (L/min) 5 [facility] <GAURAV Chicas - Last Filed: 04/16/24 21:45> [facility] Lab Data Labs: Laboratory Results - last 24 hr 04/16/24 04/16/24 10:55 11:24 WBC 7.7 RBC 3.09 L Hgb 8.6 L Hct 26.5 L MCV 85.8 MCH 27.8 MCHC 32.5 D RDW Std Deviation 49.3 H RDW Coeff of Tad 15.7 H Plt Count 220 MPV 9.4 Immature Gran % (Auto) 0.800 Neut % (Auto) 68.2 Lymph % (Auto) 16.7 L [place] % (Auto) 12.8 H Eos % (Auto) 1.2 Baso % (Auto) 0.3 Absolute Neuts (auto) 5.2 Absolute Lymphs (auto) 1.28 Nucleated RBC % 0 Sodium 135 L Potassium 4.1 Chloride 102 Carbon Dioxide 26.0 Anion Gap 7 BUN 24 H Creatinine 1.41 H Estim Creat Clear Calc 53.01 Est GFR (MDRD) Af Amer 63 Est GFR (MDRD) Non-Af 52 L BUN/Creatinine Ratio 17.0 Glucose 138 H Lactic Acid 1.3 Calcium 8.7 Troponin I High Sens 17 ABG Data ABG results: ABG 04/16/24 11:43 Specimen Type KENNEY Sample Site Not entered O2 % 5.0 VBG pH 7.47 H VBG pO2 75 H VBG HCO3 25 VBG Total CO2 26 VBG O2 Sat (Calc) 96 H VBG Base Excess 2 POC Mix VBG pCO2 Pt Tmp 34.9 L O2 Delivery Device Cannula Radiography Diagnostic Testing: Clinical Impression(s) from Imaging Studies Chest X-Ray 04/16/24 11:17 IMPRESSION: NO ACUTE FINDINGS. Reading Location: [place] [address] EKG Sinus tachycardia: Attestation: I personally reviewed and interpreted this EKG as follows: Comments: Sinus tachycardia, regular 106 bpm, MT interval 154 ms, QRS duration 70 ms, no acute ST elevation, no acute infarct noted. Treatment and Re-Evaluation :: Differential diagnosis includes however is not limited to: PE, COPD exacerbation, community-acquired pneumonia, CHF exacerbation, fluid overload, COVID-19 influenza RSV or other sort of respiratory virus Patient on 5 L nasal cannula is comfortable at 98%. Vital signs other are stable. Low-grade fever nine 99.1. Presenting to the emergency department for complaints of worsening cough, congestion. Patient is 3 days postop to the left knee. Patient will receive breathing treatments, two-view chest x-ray. Patient will need to be reevaluated. IV steroids given, low suspicion for PE secondary to the patient being on Eliquis long-term, only stopping for a total of 3 days. Patient's symptoms are also more coughing, wheezing. Laboratory values including BNP, troponin, BMP, CBC, lactic acid. VBG will be ordered. Upon my initial evaluation, secondary to the patient's significant increase in oxygen manned over the last week, patient may need to be admitted to the hospital. Patient's chest x-ray showed no acute findings. CBC shows no leukocytosis, patient is anemic with a hemoglobin 8.6 however patient is improving from 2 days ago at 7.2, patient had recent surgery. Patient's chemistries show a creatinine of 1.41 which is slightly elevated however mostly baseline. Troponin was negative. Patient was positive for RSV. Patient will need to be admitted for hypoxia, increased oxygen demand. Patient was never on oxygen now is on 5 L. He is also has to have physical therapy for his left knee. I will reach out to hospitalist <Thompson Villa MD - Last Filed: 04/16/24 21:49> MDM MDM Narrative Medical decision making narrative: Dr. Villa: I have personally performed a face to face assessment of the patient and have reviewed the LOPE[facility] Note. I performed a substantive portion of the visit including all aspects of the following. My [place] findings include: History is shortness of breath, increasing oxygen requirement, cough status post right knee surgery on Friday, 4 days ago. Was previously on Eliquis and restarted on Friday. Exam is afebrile. Vital signs noted. Nontoxic-appearing. Positive rhonchorous lung hayes. Mild tachypnea. Medical Decision Making: Check labs. Check chest x-ray. I have low concern about pulmonary embolism because he has started anticoagulation over the last few days. Discussed with hospitalist. Admit. Other additions or changes: [None] History & Record Review Discussion w/independent historian: Patient Lab Data Attestation: I reviewed the patient's lab results. Labs: Laboratory Results - last 24 hr 04/16/24 04/16/24 10:55 11:24 WBC 7.7 RBC 3.09 L Hgb 8.6 L Hct 26.5 L MCV 85.8 MCH 27.8 MCHC 32.5 D RDW Std Deviation 49.3 H RDW Coeff of Tad 15.7 H Plt Count 220 MPV 9.4 Immature Gran % (Auto) 0.800 Neut % (Auto) 68.2 Lymph % (Auto) 16.7 L [place] % (Auto) 12.8 H Eos % (Auto) 1.2 Baso % (Auto) 0.3 Absolute Neuts (auto) 5.2 Absolute Lymphs (auto) 1.28 Nucleated RBC % 0 Sodium 135 L Potassium 4.1 Chloride 102 Carbon Dioxide 26.0 Anion Gap 7 BUN 24 H Creatinine 1.41 H Estim Creat Clear Calc 53.01 Est GFR (MDRD) Af Amer 63 Est GFR (MDRD) Non-Af 52 L BUN/Creatinine Ratio 17.0 Glucose 138 H Lactic Acid 1.3 Calcium 8.7 Troponin I High Sens 17 ABG Data ABG results: ABG 04/16/24 11:43 Specimen Type KENNEY Sample Site Not entered O2 % 5.0 VBG pH 7.47 H VBG pO2 75 H VBG HCO3 25 VBG Total CO2 26 VBG O2 Sat (Calc) 96 H VBG Base Excess 2 POC Mix VBG pCO2 Pt Tmp 34.9 L O2 Delivery Device Cannula Radiography Diagnostic Testing: Clinical Impression(s) from Imaging Studies Chest X-Ray 04/16/24 11:17 IMPRESSION: NO ACUTE FINDINGS. Reading Location: [place] [address] Management Discussion w/another healthcare provider: Hospitalist Discharge Plan Dx/Rx/DC Orders Clinical Impression: Hypoxia, Increased oxygen demand, RSV bronchiolitis, Status post knee replacement Disposition Disposition: Acute Care Hospital [facility] Discharge Date/Time: 04/16/24 15:10
[2024-04-16 11:31] LABS: Absolute Lymphocyte Count 1.28 X10^3/uL (0.83-4.51); Absolute Neutrophil Count 5.2 X10^3/uL (2.0-7.7); Basophil# 0.02 X10^3/uL; Basophil% 0.3 % (0-1); Eosinophil# 0.09 X10^3/uL; Eosinophils% 1.2 % (0-5); Hematocrit 26.5 % (40-54); Hemoglobin 8.6 g/dL (13.0-16.5); Lymphocyte # 1.28 X10^3/ul (0.83-4.51); Lymphocyte % 16.7 % (19-41); Mean Corp Hgb Conc 32.5 g/dL (32-36); Mean Corpuscular Hgb 27.8 pg (27.0-32.0); Mean Corpuscular Volume 85.8 fL (80-94); Mean Platelet Vol. 9.4 fl (6.2-12.0); Monocyte# 0.98 X10^3/uL; Monocyte% 12.8 % (0-10); NRBC Flagged by Analyzer 0 % (0-5); Neutrophil # 5.22 X10^3/uL (2.7-7.7); Neutrophil % 68.2 % (47-70); Platelet Count 220 K/mm3 (150-450); RBC Distribution Width CV 15.7 % (11.6-14.6); RBC Distribution Width SD 49.3 fl (35.1-43.9); Red Blood Count 3.09 M/mm3 (4.6-6.2); White Blood Count 7.7 K/mm3 (4.4-11.0)
[2024-04-16] MEDS: Ipratropium/Albuterol Sulfate 3 ML AMPUL.NEB INHALATION ×2 (11:32→19:40)
[2024-04-16] MEDS: Albuterol 2.5 MG/3 ML VIAL.NEB. 5 MG INHALATION (11:32)
[2024-04-16 11:46] LABS: Blood Gas Specimen Type VEN; O2 Delivery Device Cannula; SITE Not entered; VBG BASE EXCESS 2 mmol/L (-1.0-3.5); VBG Bicarbonate 25 mmol/L (22-26); VBG PO2 75 mmHg (25-40); VBG SO2 96 % (50-70); VBG TCO2 26 mmol/L (23-33); VBG pCO2 34.9 mmHg (41-51); VBG pH 7.47 (7.32-7.42)
[2024-04-16] MEDS: Acetaminophen 500 MG Tablet 1000 MG PO (11:46)
[2024-04-16] MEDS: MethylPREDNISolone 125 MG/2 ML Vial 60 MG IV (11:46)
[2024-04-16 12:10] LABS: Lactic Acid 1.3 mmol/L (0.4-1.9)
[2024-04-16 12:11] LABS: Anion Gap 7 (5-15); BUN 24 mg/dL (7-18); Calcium,Total 8.7 mg/dL (8.5-10.1); Chloride 102 mmol/L (98-107); Creatinine, Serum 1.41 mg/dL (0.70-1.30); EST Glomerular Filtration Rate 52 mL/min (>60); Est Glom Filt Rate - Afr Amer 63 mL/min (>60); Estimated Creatinine Clearance 53.01 ml/min; Glucose 138 mg/dL (74-106); Potassium 4.1 mmol/L (3.5-5.1); Sodium Level 135 mmol/L (136-145); Troponin-I HS 17 pg/mL (3.0-78.0)
--- NOTE | 2024-04-16 13:51 | PCM.HP.STD ---
HPI - General General Date of Admission: 04/16/24 Date of Service: 04/16/24 Chief Complaint: URI symptoms with shortness of breath and wheezing HPI Narrative LILLIAN GUERRERO, is a 74 M who presented to [facility] ED on 04/16/2024 with URI symptoms and worsening shortness of breath with wheezing. Patient was hospitalized here from 04/13-04/14 for planned left knee replacement. He felt fine postoperatively and was discharged to [facility] in stable condition. He began having upper respiratory symptoms yesterday and they worsened today, so they brought him in for further evaluation. He was found to be positive for RSV. Has history of tobacco use but no formal diagnosis of COPD, does not wear home oxygen. He was requiring 4 L nasal cannula in the ED to maintain appropriate oxygen saturations. Chest x-ray was unremarkable. Patient was given a breathing treatment and a dose of IV steroids and hospitalist was contacted for admission. I saw the patient at bedside in the ED. Patient was mildly fatigued appearing but otherwise sitting back comfortably in bed, breathing comfortably on 4 L nasal cannula in no acute distress. On exam he did have moderate diffuse wheezing noted bilaterally especially in upper airways. Had a dry cough noted during our encounter. He denies any fevers or chills. He notably is on Eliquis and this was resumed on the evening of his operation. Denies any lower extremity pain or swelling. Still has some left knee pain but it has generally been well-controlled with pain medications. No other acute concerns this time. [facility] Medical History History of steroid therapy Diabetes Walker as ambulation aid History of renal disease Anemia Excessive bleeding Injury of head and neck History of ulceration Gastric reflux Sleep apnea History of pain when walking Cardiology follow-up encounter History of irregular heartbeat Asthma DVT (deep venous thrombosis) Frequent falls Multiple contusions Head injury Adult failure to thrive Schizophrenia Primary osteoarthritis, right shoulder Severe malnutrition Adult failure to thrive Localized osteoarthritis of right knee Pulmonary embolism Ventral hernia, recurrent Rheumatoid arthritis Chronic pain Kidney disease Congestive heart failure (CHF) Complete rotator cuff tear Marijuana use Shoulder impingement SLAP tear of shoulder Acromioclavicular joint arthritis Essential hypertension (08/02/20) Chronic obstructive lung disease (08/02/20) Malaise and fatigue (08/02/20) Low back pain (12/16/11) Displacement of lumbar intervertebral disc without myelopathy (03/01/11) Brachial neuritis (05/31/11) Wears glasses Dementia Alcohol use Ambulates with cane Arthritis Prostate disease High cholesterol Back pain History of IBS Emphysema, unspecified History of stress test History of echocardiogram Osteoarthritis of left knee Bipolar disorder Diabetes GERD (gastroesophageal reflux disease) Former smoker COPD (chronic obstructive pulmonary disease) Myocardial infarct Hypertension Migraines Cervical spondylosis Cervical radiculitis Partial tear of right rotator cuff Essential (primary) hypertension Smoking greater than 40 pack years Dementia PVCs (premature ventricular contractions) Lung nodule < 6cm on CT Cannabis dependence DDD (degenerative disc disease) BPH (benign prostatic hyperplasia) Anxiety Depression Atherosclerotic heart disease of tejon coronary artery without angina pectoris Hyperlipidemia Trigger finger MONIQUE (obstructive sleep apnea) Stage 2 moderate COPD by GOLD classification Peptic ulcer disease Restless leg syndrome Schizophrenia Asthma History of pulmonary embolism Home Medications ?Medication ?Instructions ?Recorded ?Last Taken ?Type ropinirole 0.5 mg tablet 0.5 mg PO QHS RESTLESS LEGS 04/23/16 04/12/24 History tamsulosin 0.4 mg capsule 0.4 mg PO QHS PROSTATE 01/30/17 04/12/24 History baclofen 10 mg tablet 10 mg PO TID PRN PAIN 11/09/20 07/09/23 History icosapent ethyl 1 gram capsule 2 g PO BID HEART 11/09/20 04/12/24 History (Vascepa) donepezil 10 mg tablet 10 mg PO DAILY ALZHEIMERS 10/23/21 04/12/24 History lamotrigine 200 mg tablet 200 mg PO DAILY MOOD 10/23/21 04/13/24 History (Lamictal) olanzapine 10 mg tablet (Zyprexa) 10 mg PO QHS MOOD 10/23/21 04/12/24 History budesonide 160 mcg-glycopyr 9 2 inh inhalation BID COPD #10.7 01/28/23 04/13/24 Rx mcg-formot 4.8 mcg/actuation HFA grams inhaler (Breztri Aerosphere) dicyclomine 20 mg tablet 20 mg PO TID IRRITABLE BOWELS 04/15/23 04/12/24 History ondansetron 4 mg disintegrating 4 mg PO TID PRN NAUSEA 04/15/23 03/05/24 History tablet potassium chloride 20 mEq 20 meq PO DAILY SUPPLEMENT 04/15/23 04/12/24 History tablet,extended release(part/cryst) atorvastatin 40 mg tablet 40 mg PO QHS CHOLESTEROL #90 tabs 06/24/23 04/12/24 Rx mesalamine 0.375 gram 1.5 g PO BID IBS 07/10/23 04/12/24 History capsule,extended release 24 hr ferrous sulfate 325 mg (65 mg 325 mg PO DAILY SUPPLEMENT 09/02/23 04/12/24 History iron) tablet furosemide 20 mg tablet (Lasix) 20 mg PO DAILY COPD 09/02/23 04/12/24 History budesonide 3 mg 9 mg PO QDAY IBS 10/13/23 04/12/24 History capsule,delayed,extended release fenofibrate 54 mg tablet 54 mg PO DAILY CHOLESTEROL 11/19/23 04/12/24 History losartan 50 mg tablet 50 mg PO BID BP 11/19/23 04/13/24 History mirtazapine 30 mg tablet 30 mg PO QHS DEPRESSION 11/19/23 04/12/24 History apixaban 5 mg tablet (Eliquis) 5 mg PO BID BLOOD THINNER #60 tabs 12/30/23 04/11/24 Rx famotidine 20 mg tablet 20 mg PO BID GERD 3 months #180 12/31/23 04/13/24 Rx tabs clopidogrel 75 mg tablet 75 mg PO DAILY BLOOD THINNER #30 01/15/24 04/06/24 Rx Held on 04/14/24. tabs Instructions: Resume on 04/20/24. acetaminophen 500 mg tablet 1,000 mg PO Q8 PRN pain 03/06/24 Unknown History trazodone 150 mg tablet 150 mg PO QHS SLEEP 03/06/24 04/12/24 History albuterol sulfate 2.5 mg/3 mL 2.5 mg (3 mL) inhalation Q2H PRN 03/09/24 04/13/24 04:30 Rx (0.083 %) solution for nebulization PRN Dyspnea, wheezing #0 mL menthol 0.44 %-zinc oxide 20.6 % 1 applic topical 4X/DAY SKIN 03/09/24 04/12/24 Rx topical ointment (Calmoseptine) IRRITATION #0 grams nutrition tx glu 120 ml PO 4X/DAY CKD #0 mL 03/09/24 04/12/24 Rx intol,lac-free,soy-fiber 0.06 gram-1.2 kcal/mL liquid (Glucerna 1.2 Morgan) loratadine 10 mg capsule (Allergy 10 mg PO DAILY ALLERGIES 03/30/24 04/12/24 History Relief (loratadine)) oxycodone 5 mg tablet 5 - 10 mg (1 - 2 x 5 mg) PO Q4H 04/15/24 Unknown Rx PRN pain 60 days #60 tabs Allergy/AdvReac Type Severity Reaction Status Date / Time Quinolones Allergy Unknown unknown Verified 04/16/24 10:45 aspirin Allergy Itching, Verified 04/16/24 10:45 Hives levofloxacin (From Levaquin) Allergy Hives, Verified 04/16/24 10:45 Itching Penicillins Allergy Hives, Verified 04/16/24 10:45 Itching Family History Mother CAD (coronary artery disease) Sister Diabetes Father Alcoholism Surgical History History of cardiac catheterization Hx of total shoulder replacement History of cholecystectomy History of coronary artery stent placement History of right shoulder replacement Hx of colonoscopy S/P right rotator cuff repair Hx of repair of right rotator cuff (06/04/22) H/O left knee surgery History of laparoscopic cholecystectomy History of appendectomy H/O cervical spine surgery H/O ventral hernia repair History of left heart catheterization (04/2016) History of coronary artery stent placement (10/16/18) Social History household members: none housing: house current occupational status: disabled Smoking Status: Former smoker quit date: 02/14/15 how long ago did patient quit smokin years ago second hand exposure: Yes alcohol intake: former details: Quit 9 years ago substance use type: marijuana caffeine: Yes Type: coffee what type of physical activity do you participate in: none seatbelt use: always do you feel safe at home: Yes ROS Constitutional Constitutional: Reports fatigue and malaise; Denies chills or fever(s) Eyes Eyes: Denies change in vision Cardiovascular Cardiovascular: Denies chest pain, edema, lightheadedness or palpitations Respiratory/Chest Respiratory/Chest: Reports cough, shortness of breath at rest, shortness of breath with exertion and wheezing; Denies productive cough Gastrointestinal Gastrointestinal: Denies abdominal pain Musculoskeletal Musculoskeletal: Reports joint pain; Denies arthralgias or myalgias Neurologic Neurologic: Denies dizziness or headache(s) Vital Signs Vital Signs Vital Signs: 04/16/24 10:45 04/16/24 10:49 04/16/24 10:49 Temperature 98.6 F 98.6 F Temperature Source Oral Oral Pulse Rate 105 H 105 H Respiratory Rate 18 18 Respiratory Effort Short of Breath Respiratory Depth Shallow Respiratory Pattern Normal Blood Pressure 128/68 H 128/68 H Blood Pressure Mean 88 88 Pulse Ox 98 98 Oxygen Delivery Method Nasal Cannula Nasal Cannula Nasal Cannula Oxygen Flow Rate (L/min) 4 4 04/16/24 10:57 04/16/24 11:26 04/16/24 11:37 Temperature Temperature Source Pulse Rate 87 Respiratory Rate 22 H Respiratory Effort Respiratory Depth Respiratory Pattern Tachypnea Blood Pressure Blood Pressure Mean Pulse Ox 97 Oxygen Delivery Method Nasal Cannula Nasal Cannula Oxygen Flow Rate (L/min) 5 5 04/16/24 12:45 Temperature Temperature Source Pulse Rate 100 Respiratory Rate 13 Respiratory Effort Respiratory Depth Respiratory Pattern Blood Pressure 102/62 Blood Pressure Mean 75 Pulse Ox 100 Oxygen Delivery Method Nasal Cannula Oxygen Flow Rate (L/min) 5 Weight Weight: 93.8 kg Body Mass Index (BMI) 28.0 Physical Exam Const alert, oriented x3, no apparent distress and average body habitus Constitutional Narrative: Elderly male, fatigued appearing but otherwise sitting back comfortably in bed, conversing normally, in no acute distress. General Appearance: cooperative and comfortable HEENT normocephalic, head/scalp atraumatic, hearing grossly normal bilaterally, nasal mucous membranes and turbinates normal and moist oral mucous membranes Eyes PERRL, EOMs intact bilaterally and conjunctivae normal Neck full ROM Chest inspection of chest normal Resp normal respiratory effort and no use of accessory muscles Resp Narrative: Breathing notably on 4 L nasal cannula at rest. Moderate diffuse wheezing noted in bilateral lungs especially upper airways but otherwise good air movement. No crackles noted. Cardio regular rate, regular rhythm, no murmurs and peripheral pulses 2+ throughout GI normal to inspection, nondistended, normoactive bowel sounds, soft to palpation, non-tender and non-distended Back/Spine normal ROM Extremity Extremity Narrative: Left knee with bandage and sleeve in place. Mild swelling but no tenderness to palpation. Skin no rashes or lesions noted Neuro moves all extremities and no focal motor deficits Speech: speech normal Psych mental status grossly normal Results Lab / Micro Data 04/16/24 10:55 04/16/24 10:55 Labs: Laboratory Results - last 24 hr 04/16/24 10:55: WBC 7.7, RBC 3.09 L, Hgb 8.6 L, Hct 26.5 L, MCV 85.8, MCH 27.8, MCHC 32.5 D, RDW Std Deviation 49.3 H, RDW Coeff of Tad 15.7 H, Plt Count 220, MPV 9.4, Immature Gran % (Auto) 0.800, Neut % (Auto) 68.2, Lymph % (Auto) 16.7 L, [place] % (Auto) 12.8 H, Eos % (Auto) 1.2, Baso % (Auto) 0.3, Absolute Neuts (auto) 5.2, Absolute Lymphs (auto) 1.28, Nucleated RBC % 0, Sodium 135 L, Potassium 4.1, Chloride 102, Carbon Dioxide 26.0, Anion Gap 7, BUN 24 H, Creatinine 1.41 H, Estim Creat Clear Calc 53.01, Est GFR (MDRD) Af Amer 63, Est GFR (MDRD) Non-Af 52 L, BUN/Creatinine Ratio 17.0, Glucose 138 H, Calcium 8.7, Troponin I High Sens 17 04/16/24 11:24: Lactic Acid 1.3 Micro: Microbiology 04/16/24 11:42 Mucosa - Nose SARS-CoV-2, Influenza & RSV (PCR) - Final RSV ABG Data ABG results: ABG 04/16/24 11:43 Specimen Type KENNEY Sample Site Not entered O2 % 5.0 VBG pH 7.47 H VBG pO2 75 H VBG HCO3 25 VBG Total CO2 26 VBG O2 Sat (Calc) 96 H VBG Base Excess 2 POC Mix VBG pCO2 Pt Tmp 34.9 L O2 Delivery Device Cannula Imaging Radiology Impression Chest X-Ray 04/16/24 11:17 IMPRESSION: NO ACUTE FINDINGS. Reading Location: [place] [id number] Assessment & Plan Assessment/Plan (1) RSV bronchiolitis: (2) Hypoxia: PLAN: Plan Patient is a 74-year-old male who presented to [facility] ED on 04/16/2024 with URI symptoms and shortness of breath with wheezing. 1. RSV infection with hypoxia ? Admit under inpatient status to PCU. RSV positive in the ED. No COPD diagnosis but was a former tobacco user. Has diffuse wheezing on exam and hypoxia. Chest x-ray unremarkable. Procalcitonin ordered but low concern for secondary bacterial infection. Will treat with IV steroids and scheduled DuoNebs. Wean supplemental oxygen as able. 2. Recent left knee replacement with acute debility ? PT/OT/case management consulted. Had left knee replacement done on 04/[address] Cohn. Tolerated procedure well, no complications. Continue pain control with scheduled Tylenol and oxycodone as needed. Was discharged to [facility] and should be fine to return there on this discharge. 3. Chronic iron deficiency anemia ? Hemoglobin 8.6 on admit, at baseline. Continue home iron supplement. 4. History of VTE ? Continue home Eliquis. Notably Eliquis was only held for 2 days preoperatively and was restarted on evening of operation. No lower extremity swelling on exam, low concern for DVT/PE. 5. History of CAD s/p stenting, hypertension, hyperlipidemia ? Last setting done in 2019. Blood pressure borderline low in the ED likely due to poor p.o. intake, will hold home Lasix and losartan for now. Plan per orthopedics is to restart Plavix on 04/20. Continue home statin. Chronic medical conditions: ? BPH with obstructive symptoms: Continue home Flomax. ? Restless leg syndrome: Continue home ropinirole. ? Chronic IBS with diarrhea prominent: No acute issues. Continue home mesalamine and dicyclomine. ? Mild cognitive impairment: Stable. Continue home donepezil. ? Schizophrenia: Stable. Continue home lamotrigine, olanzapine and trazodone at night. ? Chronic pain syndrome: Pain control as noted above. ? Allergies: Continue home fexofenadine as needed. ? Former tobacco abuse: Encouraged continued cessation. ? History of alcohol abuse: Quit in 2014. Encouraged continued cessation. ? History of right total shoulder replacement Total clinical time spent by myself addressing the patient's medical issues, reviewing all the data, and collaborating with patient's care team: 55 minutes. Charges/Coding Visit Charges Inpatient E&M: 08341 Init Hosp L2
--- NOTE | 2024-04-16 14:04 | NURSING ---
PCU MOSTELLER HYPOXIA
[2024-04-16] MEDS: Senna Tablet 1 TABLET PO ×2 (15:57→21:14)
[2024-04-16] MEDS: Polyethylene Glycol 3350 17 GM PACKET PO (15:57)
[2024-04-16 18:27] LABS: D-Dimer Quantitative (DVT/PE) 3.63 FEU/ug/m (0.27-0.49)
[2024-04-16] MEDS: Dicyclomine 10 MG Capsule 20 MG PO (21:13)
[2024-04-16] MEDS: Tamsulosin HCl 0.4 MG Capsule PO (21:14)
[2024-04-16] MEDS: Atorvastatin Calcium 40 MG Tablet PO (21:14)
[2024-04-16] MEDS: Famotidine 20 MG Tablet PO (21:14)
[2024-04-16] MEDS: traZODone 50 MG Tablet 150 MG PO (21:14)
[2024-04-16] MEDS: Pramipexole Di-HCl 0.25 MG Tablet PO (21:14)
[2024-04-16] MEDS: APIXABAN 5 MG TABLET PO (21:14)
[2024-04-16] MEDS: OLANZapine 10 MG Tablet PO (21:15)
[2024-04-17] VITALS (11 sets, daily range): BP systolic 106–131; BP diastolic 55–71; PULSE 74–109; RESP 17–20; TEMP 36.4–36.8; O2SAT 94–97
[2024-04-17] MEDS: Dicyclomine 10 MG Capsule 20 MG PO ×3 (05:45→20:56)
[2024-04-17] MEDS: 0.9% Saline Lock 10 ML Syringe IV ×2 (05:51→20:55)
[2024-04-17 06:34] LABS: Hematocrit 27.1 % (40-54); Hemoglobin 8.3 g/dL (13.0-16.5); Mean Corp Hgb Conc 30.6 g/dL (32-36); Mean Corpuscular Hgb 26.9 pg (27.0-32.0); Mean Corpuscular Volume 87.7 fL (80-94); Mean Platelet Vol. 9.7 fl (6.2-12.0); Platelet Count 236 K/mm3 (150-450); RBC Distribution Width CV 15.2 % (11.6-14.6); RBC Distribution Width SD 48.8 fl (35.1-43.9); Red Blood Count 3.09 M/mm3 (4.6-6.2); White Blood Count 8.7 K/mm3 (4.4-11.0)
[2024-04-17 06:42] LABS: Scan Indicated on CBC? Y/N NO
[2024-04-17 07:05] LABS: Anion Gap 7 (5-15); BUN 33 mg/dL (7-18); Calcium,Total 9.1 mg/dL (8.5-10.1); Chloride 105 mmol/L (98-107); Creatinine, Serum 1.18 mg/dL (0.70-1.30); EST Glomerular Filtration Rate 64 mL/min (>60); Est Glom Filt Rate - Afr Amer 77 mL/min (>60); Estimated Creatinine Clearance 58.46 ml/min; Glucose 166 mg/dL (74-106); Potassium 3.9 mmol/L (3.5-5.1); Sodium Level 139 mmol/L (136-145)
--- NOTE | 2024-04-17 07:07 | PN.HOSP_ITS ---
Reason for Visit Reason for Visit: Diagnoses Acute bronchiolitis due to respiratory syncytial virus (04/16/24) Hypoxemia (04/16/24) Subjective Subjective Patient states he was feeling well until 04/14/2024 when he started to feel little bit ill and yesterday really got short of breath so that is why they brought him to the emergency department. He was found to be RSV positive and admitted for hypoxia secondary to viral pneumonia with RSV/acute exacerbation of COPD. States he did get up today but had a little bit of difficulty due to his knee being sore. Objective Data Objective Data Vital Signs: Vital Signs Temp Pulse Resp BP Pulse Ox O2 Del Method O2 Flow Rate 98.2 F 75 18 117/70 95 Nasal Cannula 2 04/17/24 02:04/17/24 02:04/17/24 02:04/17/24 02:25 04/17/24 02:04/17/24 05:55 04/17/24 05:55 Oxygen Flow Rate (L/min) 2 Oxygen Delivery Method Nasal Cannula Weight: 85.6 kg Body Mass Index (BMI) 25.6 Intake & Output: Intake and Output for Last 24 Hours 04/15/24 04/16/24 04/17/24 23:59 23:59 23:59 Intake Total 360 / 360 60 / 60 Output Total 700 / 700 Balance -340 / -340 60 / 60 Lab / Micro Data 04/17/24 05:40 04/17/24 05:40 Labs: Laboratory Results - last 24 hr 04/16/24 10:55: WBC 7.7, RBC 3.09 L, Hgb 8.6 L, Hct 26.5 L, MCV 85.8, MCH 27.8, MCHC 32.5 D, RDW Std Deviation 49.3 H, RDW Coeff of Tad 15.7 H, Plt Count 220, MPV 9.4, Immature Gran % (Auto) 0.800, Neut % (Auto) 68.2, Lymph % (Auto) 16.7 L , [place] % (Auto) 12.8 H, Eos % (Auto) 1.2, Baso % (Auto) 0.3, Absolute Neuts (auto) 5.2, Absolute Lymphs (auto) 1.28, Nucleated RBC % 0, Sodium 135 L, Potassium 4.1, Chloride 102, Carbon Dioxide 26.0, Anion Gap 7, BUN 24 H, C reatinine 1.41 H, Estim Creat Clear Calc 53.01, Est GFR (MDRD) Af Amer 63, Est GFR (MDRD) Non-Af 52 L, BUN/Creatinine Ratio 17.0, Glucose 138 H, Calcium 8.7, Troponin I High Sens 17 04/16/24 11:24: Lactic Acid 1.3 04/16/24 16:12: D-Dimer Quant (PE/DVT) 3.63 H* 04/17/24 05:40: WBC 8.7, RBC 3.09 L, Hgb 8.3 L, Hct 27.1 L, MCV 87.7, MCH 26.9 L , MCHC 30.6 L D, RDW Std Deviation 48.8 H, RDW Coeff of Tad 15.2 H, Plt Count 236, MPV 9.7, Sodium 139, Potassium 3.9, Chloride 105, Carbon Dioxide 27.0, Anion Gap 7, BUN 33 H, Creatinine 1.18, Estim Creat Clear Calc 58.46, Est GFR (MDRD) Af Amer 77, Est GFR (MDRD) Non-Af 64, BUN/Creatinine Ratio 28.0 H, G lucose 166 H, Calcium 9.1 Micro: Microbiology 04/16/24 11:42 Mucosa - Nose SARS-CoV-2, Influenza & RSV (PCR) - Final RSV ABG Data ABG results: ABG 04/16/24 11:43 Specimen Type KENNEY Sample Site Not entered O2 % 5.0 VBG pH 7.47 H VBG pO2 75 H VBG HCO3 25 VBG Total CO2 26 VBG O2 Sat (Calc) 96 H VBG Base Excess 2 POC Mix VBG pCO2 Pt Tmp 34.9 L O2 Delivery Device Cannula Radiography Diagnostic Testing: Radiology Impression Chest X-Ray 04/16/24 11:17 IMPRESSION: NO ACUTE FINDINGS. Reading Location: [facility] Physical Exam Const alert, oriented x3, no apparent distress, average body habitus and well nourished; Negative for healthy appearing Constitutional Narrative: Elderly, white male, sitting up in bed watching television, appears comfortable, nontoxic, does seem to be a bit older than stated age HEENT head/scalp atraumatic, moist oral mucous membranes and oropharynx normal HEENT Narrative: Mallampati 2, no thrush Resp normal respiratory effort, no retractions, no use of accessory muscles and No clear to auscultation bilaterally Resp Narrative: Coarse breath sounds with scattered inspiratory and end expiratory wheezes, no significant tachypnea, intermittent dry cough Auscultation: wheezes; Negative for rales or rhonchi Cardio regular rate, regular rhythm, S1 normal heart sound, S2 normal heart sound, no murmurs, no rub, no gallops and no clicks GI normal to inspection, nondistended, normoactive bowel sounds, soft to palpation and non-tender Extremity no clubbing, cyanosis or edema Extremity Narrative: SOLEDAD hose in place, pedal pulses are 2+ bilaterally Neuro oriented x3, moves all extremities and no focal motor deficits Speech: speech normal Assessment & Plan Assessment/Plan (1) Status post knee replacement: (2) RSV bronchiolitis: (3) Increased oxygen demand: (4) Hypoxia: PLAN: Plan Acute hypoxia secondary to acute exacerbation of COPD secondary to RSV infection -Currently requiring 1 to 2 L nasal cannula keep sats greater than 88% -Patient is not oxygen to him at baseline -Wean O2 as able -Will need ambulatory pulse ox prior to discharge -No signs of bacterial pneumonia -Patient's cough is dry nonproductive -Will check a sputum if able to produce -Continue inhaled steroids -Mucinex 1200 p.o. twice daily -Solu-Medrol 40 every 8 -Aggressive pulmonary toilet with scheduled and as needed nebulizers -I-S -Acapella -Antitussives as needed Severe left knee osteoarthritis -Postop day 3 left total knee arthroplasty -OR on 04/13/2024 -Patient was doing well and postoperatively was discharged to skilled facility -Continue pain management as ordered -PT/OT consultation -Orders placed for clean incision daily with betadine and reapply dry dressing ABD under Soledad -Wound nurse consulted Acute on chronic anemia -Baseline hemoglobin appears to run between 9 and 10 -Was 7.2 postoperatively and received 1 unit of packed red blood cells -Now stable between 8 and 9 -Continue home iron -Repeat CBC in a.m. Generalized weakness/history of falls -Dominantly related to his knee issues -Should improve with therapy -Plan will be to go back to [facility] but will need to reestablish pre-CERT -Case management/social work supervisor following -PT/OT consult pending History of pulmonary embolism -Diagnosed in March 2023 -Continue Eliquis 5 mg p.o. twice daily Moderate persistent asthma/COPD stage II -Continue home inhalers -Treatment as above for acute exacerbation CAD/essential HTN/HPL -Continue home Plavix -Continue home atorvastatin -Continue home fenofibrate -Hold Vascepa as it is nonformulary -Continue home losartan BPH with obstruction -Continue home Flomax -Patient states he is urinating without difficulty postoperatively Restless leg syndrome -Continue home Requip Chronic diarrhea -Continue home rifaximin -Continue home mesalamine Crohn's disease/IBS -Continue home budesonide -Continue home Bentyl -Continue outpatient follow-up GERD -Continue home H2 carlos manuel Mild cognitive impairment -Continue home donepezil Schizophrenia/mood disorder NOS -Continue home aripiprazole -Continue home Zyprexa -Continue home desvenlafaxine -Continue home Lamictal -Continue home trazodone Chronic pain -Continue home baclofen -Pain medication as per primary service postoperative joint replacement Chronic allergies -Continue home fexofenadine Restless leg syndrome -Continue home ropinirole BPH with obstruction -Continue Flomax DVT prophylaxis -Continue Eliquis CODE STATUS -Full code Charges/Coding Visit Charges Inpatient E&M: 66708 Subs Hosp L2
[2024-04-17] MEDS: Ipratropium/Albuterol Sulfate 3 ML AMPUL.NEB INHALATION ×4 (07:57→19:28)
[2024-04-17] MEDS: Donepezil HCl 10 MG Tablet PO (08:36)
[2024-04-17] MEDS: Budesonide 3 MG CAPSULE.EC 9 MG PO (08:36)
[2024-04-17] MEDS: Senna Tablet 1 TABLET PO ×2 (08:36→20:57)
[2024-04-17] MEDS: APIXABAN 5 MG TABLET PO ×2 (08:36→20:56)
[2024-04-17] MEDS: Polyethylene Glycol 3350 17 GM PACKET PO (08:36)
[2024-04-17] MEDS: Famotidine 20 MG Tablet PO ×2 (08:37→20:56)
[2024-04-17] MEDS: guaiFENesin 1,200 MG Tablet 1200 MG PO ×2 (08:38→20:56)
[2024-04-17] MEDS: lamoTRIgine 100 MG Tablet 200 MG PO (08:38)
[2024-04-17] MEDS: Fenofibrate 48 MG Tablet PO (08:39)
[2024-04-17] MEDS: Glucerna Shake 120 ML LIQUID PO ×3 (08:45→17:09)
[2024-04-17 09:36] LABS: BNP,B-Type NATRIURETIC PEPTIDE 17.6 pg/mL (0-100)
[2024-04-17 09:41] LABS: Procalcitonin 0.12 ng/mL (0.00-0.09)
--- NOTE | 2024-04-17 11:15 | CASEMGMT ---
Social Work SW attempted to meet w/pt, he is sleeping. SW called pt's daughter/POA, message left to call SW back. JOCE Loving
[2024-04-17] MEDS: Ferrous Sulfate 325 MG Tablet PO (12:59)
[2024-04-17] MEDS: oxyCODONE 5 MG Tablet PO ×2 (12:59→19:08)
--- NOTE | 2024-04-17 14:14 | CASEMGMT ---
Social Work SW spoke w/pt's daughter and RADHA Sims. She confirmed plan is for pt to return to [place] at discharge. SNF list is not needed at this time. Pt is there short term for rehab. SW to follow up Friday. JOCE Loving
[2024-04-17] MEDS: OLANZapine 10 MG Tablet PO (20:56)
[2024-04-17] MEDS: traZODone 50 MG Tablet 150 MG PO (20:56)
[2024-04-17] MEDS: Pramipexole Di-HCl 0.25 MG Tablet PO (20:56)
[2024-04-17] MEDS: Atorvastatin Calcium 40 MG Tablet PO (20:56)
[2024-04-17] MEDS: Tamsulosin HCl 0.4 MG Capsule PO (20:57)
[2024-04-17] MEDS: Acetaminophen 500 MG Tablet 1000 MG PO (21:10)
[2024-04-18] VITALS (11 sets, daily range): BP systolic 112–117; BP diastolic 56–68; PULSE 79–96; RESP 16–20; TEMP 36.4–36.7; O2SAT 91–96
[2024-04-18] MEDS: oxyCODONE 5 MG Tablet PO ×3 (03:28→18:41)
[2024-04-18] MEDS: Dicyclomine 10 MG Capsule 20 MG PO ×3 (05:46→21:09)
[2024-04-18] MEDS: 0.9% Saline Lock 10 ML Syringe IV ×2 (05:46→21:08)
[2024-04-18] MEDS: Acetaminophen 500 MG Tablet 1000 MG PO (05:48)
[2024-04-18 06:32] LABS: Hematocrit 23.5 % (40-54); Hemoglobin 7.4 g/dL (13.0-16.5); Mean Corp Hgb Conc 31.5 g/dL (32-36); Mean Corpuscular Hgb 27.4 pg (27.0-32.0); Mean Platelet Vol. 9.5 fl (6.2-12.0); Platelet Count 274 K/mm3 (150-450); RBC Distribution Width CV 15.3 % (11.6-14.6); RBC Distribution Width SD 48.5 fl (35.1-43.9); White Blood Count 11.4 K/mm3 (4.4-11.0)
[2024-04-18] MEDS: Ipratropium/Albuterol Sulfate 3 ML AMPUL.NEB INHALATION ×4 (07:00→19:49)
[2024-04-18 07:06] LABS: Anion Gap 5 (5-15); BUN 43 mg/dL (7-18); BUN/Creat Ratio 37.1 RATIO (10-20); Calcium,Total 9.2 mg/dL (8.5-10.1); Chloride 106 mmol/L (98-107); Creatinine, Serum 1.16 mg/dL (0.70-1.30); EST Glomerular Filtration Rate 65 mL/min (>60); Est Glom Filt Rate - Afr Amer 79 mL/min (>60); Estimated Creatinine Clearance 59.46 ml/min; Glucose 143 mg/dL (74-106); Magnesium 2.6 mg/dL (1.6-2.6); Potassium 4.2 mmol/L (3.5-5.1); Sodium Level 140 mmol/L (136-145)
[2024-04-18] MEDS: Donepezil HCl 10 MG Tablet PO (09:41)
[2024-04-18] MEDS: lamoTRIgine 100 MG Tablet 200 MG PO (09:42)
[2024-04-18] MEDS: Budesonide 3 MG CAPSULE.EC 9 MG PO (09:42)
[2024-04-18] MEDS: APIXABAN 5 MG TABLET PO ×2 (09:42→21:08)
[2024-04-18] MEDS: guaiFENesin 1,200 MG Tablet 1200 MG PO ×2 (09:43→21:08)
[2024-04-18] MEDS: Famotidine 20 MG Tablet PO ×2 (09:43→21:08)
[2024-04-18] MEDS: Fenofibrate 48 MG Tablet PO (09:44)
[2024-04-18] MEDS: Glucerna Shake 120 ML LIQUID PO ×3 (09:48→16:23)
[2024-04-18] MEDS: Ferrous Sulfate 325 MG Tablet PO (11:28)
[2024-04-18 11:40] LABS: Hemoglobin 7.8 g/dL (13.0-16.5)
--- NOTE | 2024-04-18 16:44 | PN.HOSP_ITS ---
Reason for Visit Reason for Visit: Shortness of breath Subjective Subjective Patient states he is feeling much better today. He was able to move well around the room using a walker. He feels like his knee is improving. He is anxious to get back to rehab. Oxygen has been weaned from 4 L to 2 L and his sats are stable. States he is feeling much better. Patient states his bowels are moving well Objective Data Objective Data Vital Signs: Vital Signs Temp Pulse Resp BP Pulse Ox O2 Del Method O2 Flow Rate 97.8 F 87 20 H 117/68 94 Nasal Cannula 2 04/18/24 14:03 04/18/24 15:26 04/18/24 15:26 04/18/24 14:03 04/18/24 14:03 04/18/24 14:03 04/18/24 14:03 Oxygen Flow Rate (L/min) 2 Oxygen Delivery Method Nasal Cannula Weight: 85.6 kg Body Mass Index (BMI) 25.6 Intake & Output: Intake and Output for Last 24 Hours 04/16/24 04/17/24 04/18/24 23:59 23:59 23:59 Intake Total 360 / 360 60 / 60 340 / 340 Output Total 700 / 700 950 / 1200 450 / 450 Balance -340 / -340 -890 / -1140 -110 / -110 Lab / Micro Data 04/18/24 11:20 04/18/24 05:31 Labs: Laboratory Results - last 24 hr 04/18/24 05:31: WBC 11.4 H, RBC 2.70 L, Hgb 7.4 L, Hct 23.5 L, MCV 87.0, MCH 27.4, MCHC 31.5 L, RDW Std Deviation 48.5 H, RDW Coeff of Tad 15.3 H, Plt Count 274, MPV 9.5, Sodium 140, Potassium 4.2, Chloride 106, Carbon Dioxide 30.0, Anion Gap 5, BUN 43 H, Creatinine 1.16, Estim Creat Clear Calc 59.46, Est GFR (MDRD) Af Amer 79, Est GFR (MDRD) Non-Af 65, BUN/Creatinine Ratio 37.1 H, G lucose 143 H, Calcium 9.2, Phosphorus 3.0, Magnesium 2.6 04/18/24 11:20: Hgb 7.8 L Micro: Microbiology 04/16/24 11:42 Mucosa - Nose SARS-CoV-2, Influenza & RSV (PCR) - Final RSV Physical Exam Const alert, oriented x3, no apparent distress, average body habitus and well nourished; Negative for healthy appearing Constitutional Narrative: Elderly, white male, sitting up in bed watching television, appears comfortable, nontoxic, does seem to be a bit older than stated age General Appearance: cooperative and comfortable HEENT normocephalic, head/scalp atraumatic and moist oral mucous membranes HEENT Narrative: Mallampati 2, no thrush Resp normal respiratory effort, no retractions, no use of accessory muscles and No clear to auscultation bilaterally Resp Narrative: Scattered end expiratory wheezes Auscultation: wheezes; Negative for rales or rhonchi Cardio regular rate, regular rhythm, S1 normal heart sound, S2 normal heart sound, no murmurs, no rub, no gallops and no clicks GI normal to inspection, nondistended, normoactive bowel sounds, soft to palpation and non-tender Extremity no clubbing, cyanosis or edema Extremity Narrative: QUAN hose in place, pedal pulses are 2+ bilaterally, knee dressing has been changed and dressing is clean dry and intact Neuro oriented x3, moves all extremities and no focal motor deficits Speech: speech normal Psych Psych Narrative: Very pleasant, interacts appropriately Assessment & Plan Assessment/Plan (1) Status post knee replacement: (2) RSV bronchiolitis: (3) Increased oxygen demand: (4) Hypoxia: PLAN: Plan Acute hypoxia secondary to acute exacerbation of COPD secondary to RSV infection -Oxygen has been weaned from 4 to 2 L -Patient is not oxygen to him at baseline -Wean O2 as able -Will need ambulatory pulse ox prior to discharge -Patient's cough is dry nonproductive -Continue inhaled steroids -Continue Mucinex 1200 p.o. twice daily -Continue Solu-Medrol 40 every 8 -Aggressive pulmonary toilet with scheduled and as needed nebulizers -I-S -Acapella -Antitussives as needed Severe left knee osteoarthritis -Postop day 3 left total knee arthroplasty -OR on 04/13/2024 -Patient was doing well and postoperatively was discharged to skilled facility -Continue pain management as ordered -PT/OT following -Orders placed for clean incision daily with betadine and reapply dry dressing ABD under Quan -Wound nurse consulted Acute on chronic anemia -Baseline hemoglobin appears to run between 9 and 10 -Hemoglobin down to 7.4 this morning but repeat is 7.8 -Now stable between 8 and 9 -Continue home iron -Repeat CBC in a.m. Generalized weakness/history of falls -Dominantly related to his knee issues -Should improve with therapy -Plan will be to go back to [facility] but will need to reestablish pre-CERT -Case management/vp digital marketing social media and crm following -PT/OT following History of pulmonary embolism -Diagnosed in March 2023 -Continue Eliquis 5 mg p.o. twice daily Moderate persistent asthma/COPD stage II -Continue home inhalers -Treatment as above for acute exacerbation CAD/essential HTN/HPL -Continue home Plavix -Continue home atorvastatin -Continue home fenofibrate -Hold Vascepa as it is nonformulary -Continue home losartan BPH with obstruction -Continue home Flomax Restless leg syndrome -Continue home Requip Chronic diarrhea -Continue home rifaximin -Continue home mesalamine Crohn's disease/IBS -Continue home budesonide -Continue home Bentyl -Continue outpatient follow-up GERD -Continue home H2 carlos manuel Mild cognitive impairment -Continue home donepezil Schizophrenia/mood disorder NOS -Continue home aripiprazole -Continue home Zyprexa -Continue home desvenlafaxine -Continue home Lamictal -Continue home trazodone Chronic pain -Continue home baclofen -Pain medication as per primary service postoperative joint replacement Chronic allergies -Continue home fexofenadine Restless leg syndrome -Continue home ropinirole BPH with obstruction -Continue Flomax DVT prophylaxis -Continue Eliquis CODE STATUS -Full code Charges/Coding Visit Charges Inpatient E&M: 39629 Subs Hosp L2
[2024-04-18] MEDS: traZODone 50 MG Tablet 150 MG PO (21:08)
[2024-04-18] MEDS: Pramipexole Di-HCl 0.25 MG Tablet PO (21:08)
[2024-04-18] MEDS: OLANZapine 10 MG Tablet PO (21:08)
[2024-04-18] MEDS: Tamsulosin HCl 0.4 MG Capsule PO (21:08)
[2024-04-18] MEDS: Atorvastatin Calcium 40 MG Tablet PO (21:08)
[2024-04-18] MEDS: Senna Tablet 1 TABLET PO (21:09)
[2024-04-19] VITALS (11 sets, daily range): BP systolic 115–142; BP diastolic 68–74; PULSE 72–95; RESP 15–20; TEMP 36.4–37; O2SAT 90–95
[2024-04-19] MEDS: Ipratropium/Albuterol Sulfate 3 ML AMPUL.NEB INHALATION ×4 (05:43→19:07)
[2024-04-19] MEDS: 0.9% Saline Lock 10 ML Syringe IV (06:30)
[2024-04-19] MEDS: Dicyclomine 10 MG Capsule 20 MG PO ×3 (06:30→21:04)
[2024-04-19 08:00] LABS: Hematocrit 23.6 % (40-54); Hemoglobin 7.4 g/dL (13.0-16.5); Mean Corp Hgb Conc 31.4 g/dL (32-36); Mean Corpuscular Hgb 27.5 pg (27.0-32.0); Mean Corpuscular Volume 87.7 fL (80-94); Mean Platelet Vol. 9.6 fl (6.2-12.0); Platelet Count 303 K/mm3 (150-450); RBC Distribution Width CV 15.6 % (11.6-14.6); RBC Distribution Width SD 49.8 fl (35.1-43.9); Red Blood Count 2.69 M/mm3 (4.6-6.2); White Blood Count 11.3 K/mm3 (4.4-11.0)
[2024-04-19] MEDS: Glucerna Shake 120 ML LIQUID PO ×3 (08:13→16:35)
[2024-04-19] MEDS: Fenofibrate 48 MG Tablet PO (08:13)
[2024-04-19] MEDS: Budesonide 3 MG CAPSULE.EC 9 MG PO (08:13)
[2024-04-19] MEDS: Donepezil HCl 10 MG Tablet PO (08:14)
[2024-04-19] MEDS: guaiFENesin 1,200 MG Tablet 1200 MG PO ×2 (08:14→21:04)
[2024-04-19] MEDS: APIXABAN 5 MG TABLET PO ×2 (08:14→21:04)
[2024-04-19] MEDS: Famotidine 20 MG Tablet PO ×2 (08:14→21:05)
[2024-04-19] MEDS: lamoTRIgine 100 MG Tablet 200 MG PO (08:14)
[2024-04-19 08:30] LABS: Anion Gap 6 (5-15); BUN 42 mg/dL (7-18); BUN/Creat Ratio 33.6 RATIO (10-20); Chloride 107 mmol/L (98-107); Creatinine, Serum 1.25 mg/dL (0.70-1.30); EST Glomerular Filtration Rate 60 mL/min (>60); Est Glom Filt Rate - Afr Amer 72 mL/min (>60); Estimated Creatinine Clearance 55.18 ml/min; Glucose 127 mg/dL (74-106); Potassium 4.7 mmol/L (3.5-5.1); Sodium Level 140 mmol/L (136-145)
[2024-04-19] MEDS: Albuterol 2.5 MG/3 ML VIAL.NEB. INHALATION (09:24)
--- NOTE | 2024-04-19 10:28 | CASEMGMT ---
Updates sent to [facility]. Asked for precert to be submitted if needed. Damaris Cassidy DC Planning Asst.
[2024-04-19] MEDS: Ferrous Sulfate 325 MG Tablet PO (11:15)
--- NOTE | 2024-04-19 14:37 | CHAPLAIN ---
Type of Pastoral Visit _x__ Initial Visit ___ Follow-up Visit ___ On-call Visit ___ General Patient Visit ___ Spiritual Assessment ___ Family Conference ___ Bereavement ___ Rapid Response ___ Code Blue ___ Other (describe below) Pastoral Care Referral From _x__ Patient ___ Family ___ Nurse ___ Physician ___ Leach Tank Tender ___ Offbearer Sewer Pipe ___ Other (describe below) Sacrament/Intervention _x__ Active listening ___ Anointing ___ Worship ___ Bereavement ___ Communion ___ Kelsey exploration ___ ___ Life review _x__ Prayer ___ Reconciliation ___ Sacrament of Sick _x__ Supportive presence ___ Wedding ___ Other (describe below) Pastoral Comments patient was seen last week for a different admission and reason; pt admits to some discouragement and frustration over being back in the hospital; pt does have a positive report calling it an answer to prayer as his cat came back to his house after being gone for a month; neighbor friend will feed the cat until he can return home; pt always asks for a prayer
--- NOTE | 2024-04-19 15:24 | PN_ITS ---
Subjective Subjective Patient seen and examined. He had no active complaints. He still does feel a bit short of breath. He denies any chest pain, palpitations, dizziness, nausea or vomiting. Review of systems otherwise negative. He is on 4 L of oxygen. Objective Data Objective Data Vital Signs: Vital Signs Temp Pulse Resp BP Pulse Ox O2 Del Method O2 Flow Rate 98.6 F 95 15 142/68 H 91 Nasal Cannula 4 04/19/24 13:41 04/19/24 13:41 04/19/24 13:41 04/19/24 13:41 04/19/24 15:00 04/19/24 13:41 04/19/24 15:00 Oxygen Flow Rate (L/min) 4 Oxygen Delivery Method Nasal Cannula Weight: 188 lb 11.451 oz Body Mass Index (BMI) 25.6 Intake & Output: Intake and Output for Last 24 Hours 04/17/24 04/18/24 04/19/24 23:59 23:59 23:59 Intake Total 60 / 60 820 / 820 Output Total 950 / 1200 700 / 700 500 / 500 Balance -890 / -1140 120 / 120 -500 / -500 Lab / Micro Data 04/19/24 06:59 04/19/24 06:59 Labs: Laboratory Results - last 24 hr 04/19/24 06:59: WBC 11.3 H, RBC 2.69 L, Hgb 7.4 L, Hct 23.6 L, MCV 87.7, MCH 27.5, MCHC 31.4 L, RDW Std Deviation 49.8 H, RDW Coeff of Tad 15.6 H, Plt Count 303, MPV 9.6, Sodium 140, Potassium 4.7, Chloride 107, Carbon Dioxide 27.0, Anion Gap 6, BUN 42 H, Creatinine 1.25, Estim Creat Clear Calc 55.18, Est GFR (MDRD) Af Amer 72, Est GFR (MDRD) Non-Af 60, BUN/Creatinine Ratio 33.6 H, G lucose 127 H, Calcium 9.0 Micro: Microbiology 04/16/24 11:42 Mucosa - Nose SARS-CoV-2, Influenza & RSV (PCR) - Final RSV Physical Exam Const alert, oriented x3 and no apparent distress General Appearance: cooperative HEENT normocephalic, head/scalp atraumatic, moist oral mucous membranes and oropharynx normal Eyes PERRL and EOMs intact bilaterally Neck no lymphadenopathy and supple Lymph Lymphatic: no lymphadenopathy noted and no lymphedema noted Resp Resp Narrative: mildly diminished breath sounds bibasally, no wheezes, mild crackles. On 4L of oxygen by nasal canula Cardio regular rate, regular rhythm, S1 normal heart sound, S2 normal heart sound and no murmurs GI normal to inspection, nondistended, normoactive bowel sounds, soft to palpation, non-tender and non-distended Extremity normal capillary refill, no clubbing, cyanosis or edema and no calf tenderness General Extremity: no tenderness to palpation of joints or extremities Skin General Skin Exam: no breakdown Neuro CN's II-XII intact bilaterally, no focal motor deficits and no sensory deficits noted Motor Exam: strength 5/5 throughout and general weakness Psych thought process normal and cooperative Appearance: appropriate Assessment & Plan Assessment/Plan (1) Status post knee replacement: (2) RSV bronchiolitis: PLAN: Plan #Hypoxia due to COPD exacerbation in the setting of RSV infection * Patient back on 4 L today. Was previously on 2 L. * On IV Solu-Medrol. Breathing treatments bronchodilators. Titrate oxygen to maintain saturation above 90%. * #Severe left knee osteoarthritis * Status post left total knee arthroplasty on 04/13/2024. Today's postop day 6 * Left knee knee brace. PT OT on board. Fall precautions. * On p.o. Tylenol, p.o. oxycodone and IV morphine as needed for pain * #Acute on chronic anemia: * Baseline hemoglobin has been 9 and 10. * Went down to 7.4 during this admission. Did not require any transfusion. Hb today 7.4. * May have been due to acute blood loss from surgery. Will monitor closely. Continue oral iron. * #History of PE: On Eliquis 5 mg twice daily #CAD: On Plavix and statin as well as fenofibrate #Hyperlipidemia: On statin #Hypertension: On losartan #BPH: On Flomax #GERD: On famotidine #Crohn's disease with chronic diarrhea: * On budesonide and Bentyl as well as mesalamine and rifaximin #Restless leg syndrome: On Requip #History of schizophrenia: On aripiprazole, Zyprexa and Dex venlafaxine as well as Lamictal and trazodone #Chronic pain: On baclofen #BPH with obstructive symptoms: on flomax. DVT prophylaxis; eliquis. Charges/Coding Visit Charges Inpatient E&M: 04063 Subs Hosp L2
[2024-04-19] MEDS: oxyCODONE 5 MG Tablet PO (17:39)
[2024-04-19] MEDS: traZODone 50 MG Tablet 150 MG PO (21:04)
[2024-04-19] MEDS: Pramipexole Di-HCl 0.25 MG Tablet PO (21:04)
[2024-04-19] MEDS: Tamsulosin HCl 0.4 MG Capsule PO (21:04)
[2024-04-19] MEDS: Atorvastatin Calcium 40 MG Tablet PO (21:04)
[2024-04-19] MEDS: OLANZapine 10 MG Tablet PO (21:05)
[2024-04-19] MEDS: Senna Tablet 1 TABLET PO (21:05)
[2024-04-20] VITALS (7 sets, daily range): BP systolic 124–132; BP diastolic 70–76; PULSE 73–86; RESP 16–20; TEMP 36.4; O2SAT 93–96
[2024-04-20] MEDS: 0.9% Saline Lock 10 ML Syringe IV (05:39)
[2024-04-20] MEDS: Dicyclomine 10 MG Capsule 20 MG PO ×2 (05:39→14:39)
[2024-04-20] MEDS: oxyCODONE 5 MG Tablet PO (05:50)
[2024-04-20] MEDS: Ipratropium/Albuterol Sulfate 3 ML AMPUL.NEB INHALATION ×2 (06:47→15:09)
[2024-04-20 08:00] LABS: Hematocrit 24.3 % (40-54); Hemoglobin 7.5 g/dL (13.0-16.5); Mean Corp Hgb Conc 30.9 g/dL (32-36); Mean Corpuscular Hgb 26.8 pg (27.0-32.0); Mean Corpuscular Volume 86.8 fL (80-94); Mean Platelet Vol. 9.6 fl (6.2-12.0); POSITIVE COUNT YES; POSITIVE MORPHOLOGY YES; Platelet Count 339 K/mm3 (150-450); RBC Distribution Width CV 15.3 % (11.6-14.6); RBC Distribution Width SD 49.1 fl (35.1-43.9); White Blood Count 11.6 K/mm3 (4.4-11.0)
[2024-04-20 08:08] LABS: Differential Indicated MANUAL DIFF
[2024-04-20] MEDS: Glucerna Shake 120 ML LIQUID PO ×2 (08:26→11:51)
[2024-04-20] MEDS: APIXABAN 5 MG TABLET PO (08:27)
[2024-04-20] MEDS: guaiFENesin 1,200 MG Tablet 1200 MG PO (08:28)
[2024-04-20] MEDS: Fenofibrate 48 MG Tablet PO (08:28)
[2024-04-20] MEDS: Budesonide 3 MG CAPSULE.EC 9 MG PO (08:28)
[2024-04-20] MEDS: lamoTRIgine 100 MG Tablet 200 MG PO (08:28)
[2024-04-20] MEDS: Donepezil HCl 10 MG Tablet PO (08:28)
[2024-04-20] MEDS: Famotidine 20 MG Tablet PO (08:28)
[2024-04-20 08:53] LABS: Anion Gap 8 (5-15); BUN 41 mg/dL (7-18); BUN/Creat Ratio 34.2 RATIO (10-20); Chloride 107 mmol/L (98-107); EST Glomerular Filtration Rate 63 mL/min (>60); Est Glom Filt Rate - Afr Amer 76 mL/min (>60); Estimated Creatinine Clearance 57.48 ml/min; Glucose 133 mg/dL (74-106); Potassium 4.5 mmol/L (3.5-5.1); Sodium Level 140 mmol/L (136-145)
[2024-04-20 10:04] LABS: Absolute Neutrophil Count 9.3 X10^3/uL (2.0-7.7); Lymphocyte 9 % (19-41); Metamyelocyte 4 % (0-1); Monocyte 6 % (0-10); Myelocyte 1 % (0-0); Neutrophil-Band 1 % (0-5); Neutrophil-Segmented 79 % (47-70); Nucleated Red Bld Cells,Manual 1 % (0-5); Total Cells Counted 100 (MANUAL DIFF)
[2024-04-20 10:05] LABS: Absolute Lymphocyte Count 1.04 X10^3/uL (0.83-4.51); Platelet Estimate ADEQUATE (ADEQ)
[2024-04-20 10:06] LABS: Acanthocytes RARE; Anisocytosis 1+; Burr Cells RARE; Ovalocyte 1+; Schistocytes 1+; Tear Drop Cell RARE
--- NOTE | 2024-04-20 10:06 | CASEMGMT ---
[facility] has obtained auth to admit. SW updated. Damaris Cassidy DC Planning Asst.
--- NOTE | 2024-04-20 10:16 | CASEMGMT ---
Patient was approved to go back to [place] [facility]. SW notified physician and patient. Patient asked PEYTON to notify his [facility] wrapper caser. Plan: d/c back to [facility] [facility] under skilled level of care. Physicians will transport patient via wheelchair van. Joie COELLO
--- NOTE | 2024-04-20 11:04 | CASEMGMT ---
SW called [facility] and spoke with the coverage line letting them know patient is in the hospital and will be discharged back to [place] today. They will notify patient's case loader operator Ana. Joie Wise GLOBAL MARKETING MANAGERYvonne COELLO
[2024-04-20] MEDS: Ferrous Sulfate 325 MG Tablet PO (11:51)
--- NOTE | 2024-04-20 13:34 | WOUNDNOTE ---
wound photo: left knee
--- NOTE | 2024-04-20 14:06 | TREXTCAR_ITS ---
Diet Diet Order/Speech Therapy: 04/18/24 14:02 Diet: Carbohydrate Controlled Dietary Modifications:: No Added Salt Routine Orders/Code Status Enema Type: Fleetz Enema Frequency: Daily PRN Suppository Type: Dulcolax 10mg Suppository Frequency: Daily PRN DC O2, CPAP, BIPAP needs RN Home O2 Qualification: Home O2 Qualification: Is the patient on home oxygen No 04/20/24 11:23 Home O2 Qualification: AT REST 1- Pulse Ox at rest 93 04/20/24 11:23 Home O2 Qualification: WITH AMBULATION 1- Pulse Ox with ambulation 96 04/20/24 11:23 1- Oxygen Flow Rate with 0 04/20/24 11:23 ambulation Home O2 Discharge instructions: No Wound(s) Left Knee: Wound Type: Surgical Incision Dressing Change: dry dressing Therapies Weight Bearing: Weight bearing as tolerated Physical Therapy: Eval and Treat Occupational Therapy: Eval and Treat Problem/Diagnosis (1) Status post knee replacement: Status: Acute Code(s): Z96.659 - Presence of unspecified artificial knee joint (2) RSV bronchiolitis: Status: Acute Code(s): J21.0 - Acute bronchiolitis due to respiratory syncytial virus Plan #Hypoxia due to COPD exacerbation in the setting of RSV infection * Patient back on 4 L today. Was previously on 2 L. * On IV Solu-Medrol. Breathing treatments bronchodilators. Titrate oxygen to maintain saturation above 90%. * #Severe left knee osteoarthritis * Status post left total knee arthroplasty on 04/13/2024. Today's postop day 6 * Left knee knee brace. PT OT on board. Fall precautions. * On p.o. Tylenol, p.o. oxycodone and IV morphine as needed for pain * #Acute on chronic anemia: * Baseline hemoglobin has been 9 and 10. * Went down to 7.4 during this admission. Did not require any transfusion. Hb today 7.4. * May have been due to acute blood loss from surgery. Will monitor closely. Co ntinue oral iron. * #History of PE: On Eliquis 5 mg twice daily #CAD: On Plavix and statin as well as fenofibrate #Hyperlipidemia: On statin #Hypertension: On losartan #BPH: On Flomax #GERD: On famotidine #Crohn's disease with chronic diarrhea: * On budesonide and Bentyl as well as mesalamine and rifaximin #Restless leg syndrome: On Requip #History of schizophrenia: On aripiprazole, Zyprexa and Dex venlafaxine as well as Lamictal and trazodone #Chronic pain: On baclofen #BPH with obstructive symptoms: on flomax. DVT prophylaxis; eliquis. Allergies/Procedures Done in Hospital Allergies Quinolones Allergy (Unknown, Verified 04/16/24 10:45) unknown aspirin Allergy (Verified 04/16/24 10:45) Itching, Hives levofloxacin (From Levaquin) Allergy (Verified 04/16/24 10:45) Hives, Itching Penicillins Allergy (Verified 04/16/24 10:45) Hives, Itching Procedures: None Type of Care/Length of Stay Estimated LOS: Convalescent Care Less Than 30 days Type of Care Needed: Skilled Rehab Potential: Fair Prognosis: Fair Additional Orders/Day of Discharge Day of Discharge: 04/20/24 Dietary and Speech Recommendations Dietitian Recommendations/Changes: Continue consistent carbohydrate; no added salt diet with 120ml glucerna shake TID with medpass. Will continue to follow and monitor for changes in pt nutritional status and make additional recommendations as indicated. Reviewed and approved by Mireille Delaney RD, LD. Discharge Plan Admission Admit Date/Time: 04/16/24 13:53 Primary Reason for Your Visit: COPD exacerbation, RSV infection Attending Provider: Cora Umaña Primary Care Provider: Eliel Mosley Angelito Consulting Providers: Carmelo Lowe; Anette Burrell Instructions Patient Instructions: COPD Meds Discharge Orders/Prescriptions Prescriptions: New prednisone 20 mg tablet 40 mg PO DAILY Qty: 10 0RF Continued icosapent ethyl [Vascepa] 1 gram capsule 2 g PO BID baclofen 10 mg tablet 10 mg PO TID PRN (Reason: PAIN) olanzapine [Zyprexa] 10 mg tablet 10 mg PO QHS donepezil 10 mg tablet 10 mg PO DAILY lamotrigine [Lamictal] 200 mg tablet 200 mg PO DAILY Breztri Aerosphere 160-9-4.8 mcg/actuation HFA aerosol inhaler 2 inh inhalation BID Qty: 10.7 11RF budesonide 3 mg capsule,delayed,extend.release 9 mg PO QDAY losartan 50 mg tablet 50 mg PO BID mirtazapine 30 mg tablet 30 mg PO QHS fenofibrate 54 mg tablet 54 mg PO DAILY ropinirole 0.5 MG tablet 0.5 mg PO QHS tamsulosin 0.4 MG capsule,extended release 24hr 0.4 mg PO QHS dicyclomine 20 mg tablet 20 mg PO TID potassium chloride 20 mEq tablet,ER particles/crystals 20 meq PO DAILY ondansetron 4 mg tablet,disintegrating 4 mg PO TID PRN (Reason: NAUSEA ) mesalamine 0.375 gram capsule,extended release 24hr 1.5 g PO BID ferrous sulfate 325 mg (65 mg iron) tablet 325 mg PO DAILY furosemide [Lasix] 20 mg tablet 20 mg PO DAILY Allergy Relief (loratadine) 10 mg capsule 10 mg PO DAILY acetaminophen 500 mg Tablet 1,000 mg PO Q8 PRN (Reason: pain) trazodone 150 mg tablet 150 mg PO QHS albuterol sulfate 2.5 mg /3 mL (0.083 %) Solution For Nebulization 2.5 mg inhalation Q2H PRN PRN (Reason: Dyspnea, wheezing) Qty: 0 0RF Glucerna 1.2 Morgan 0.06-1.2 gram-kcal/mL Liquid 120 ml PO 4X/DAY Qty: 0 0RF menthol-zinc oxide [Calmoseptine] 0.44-20.6 % Ointment 1 applic topical 4X/DAY Qty: 0 0RF Protocol: *Topical Application Instructions APPLICATION INSTRUCTIONS: apply to affected region atorvastatin 40 mg tablet 40 mg PO QHS Qty: 90 3RF Eliquis 5 mg tablet 5 mg PO BID Qty: 60 2RF Patient Comments: STOP 2 DAYS PRIOR TO OR PER ALEA FROM OFFICE famotidine 20 mg tablet 20 mg PO BID 90 Days Qty: 180 1RF clopidogrel 75 mg tablet 75 mg PO DAILY Qty: 30 11RF Patient Comments: STOP 7 DAYS PRIOR TO OR PER ALEA FROM OFFICE oxycodone 5 mg tablet 5 - 10 mg PO Q4H PRN (Reason: pain) 60 Days Qty: 60 0RF Referrals / Follow Up: Eliel Mosley VSAngelito, [facility] [Primary Care Provider] - Within 1 Week Disposition Disposition (needs filled in before D/C Order can be placed): Detention Facility
--- NOTE | 2024-04-20 14:08 | DS.PCM_ITS ---
Providers Date of Admission: 04/16/24 Date of Discharge: 04/20/24 Primary Care Physician: HUE WaldenC Reason For Visit: RSV INFECTION W/ HYPOXIA Diagnosis Discharge Diagnosis (1) Status post knee replacement: Status: Acute Code(s): Z96.659 - Presence of unspecified artificial knee joint (2) RSV bronchiolitis: Status: Acute Code(s): J21.0 - Acute bronchiolitis due to respiratory syncytial virus Plan #Hypoxia due to COPD exacerbation in the setting of RSV infection * Patient back on 4 L today. Was previously on 2 L. * On IV Solu-Medrol. Breathing treatments bronchodilators. Titrate oxygen to maintain saturation above 90%. * #Severe left knee osteoarthritis * Status post left total knee arthroplasty on 04/13/2024. Today's postop day 6 * Left knee knee brace. PT OT on board. Fall precautions. * On p.o. Tylenol, p.o. oxycodone and IV morphine as needed for pain * #Acute on chronic anemia: * Baseline hemoglobin has been 9 and 10. * Went down to 7.4 during this admission. Did not require any transfusion. Hb today 7.4. * May have been due to acute blood loss from surgery. Will monitor closely. Continue oral iron. * #History of PE: On Eliquis 5 mg twice daily #CAD: On Plavix and statin as well as fenofibrate #Hyperlipidemia: On statin #Hypertension: On losartan #BPH: On Flomax #GERD: On famotidine #Crohn's disease with chronic diarrhea: * On budesonide and Bentyl as well as mesalamine and rifaximin #Restless leg syndrome: On Requip #History of schizophrenia: On aripiprazole, Zyprexa and Dex venlafaxine as well as Lamictal and trazodone #Chronic pain: On baclofen #BPH with obstructive symptoms: on flomax. DVT prophylaxis; eliquis. Medications at Discharge Home Medications ropinirole 0.5 mg tablet 0.5 mg PO QHS RESTLESS LEGS 04/23/16 tamsulosin 0.4 mg capsule 0.4 mg PO QHS PROSTATE 01/30/17 baclofen 10 mg tablet 10 mg PO TID PRN PAIN 11/09/20 icosapent ethyl 1 gram capsule (Vascepa) 2 g PO BID HEART 11/09/20 donepezil 10 mg tablet 10 mg PO DAILY ALZHEIMERS 10/23/21 lamotrigine 200 mg tablet (Lamictal) 200 mg PO DAILY MOOD 10/23/21 olanzapine 10 mg tablet (Zyprexa) 10 mg PO QHS MOOD 10/23/21 budesonide 160 mcg-glycopyr 9 mcg-formot 4.8 mcg/actuation HFA inhaler (Breztri Aerosphere) 2 inh inhalation BID COPD #10.7 grams 01/28/23 dicyclomine 20 mg tablet 20 mg PO TID IRRITABLE BOWELS 04/15/23 ondansetron 4 mg disintegrating tablet 4 mg PO TID PRN NAUSEA 04/15/23 potassium chloride 20 mEq tablet,extended release(part/cryst) 20 meq PO DAILY SUPPLEMENT 04/15/23 atorvastatin 40 mg tablet 40 mg PO QHS CHOLESTEROL #90 tabs 06/24/23 mesalamine 0.375 gram capsule,extended release 24 hr 1.5 g PO BID IBS 07/10/23 ferrous sulfate 325 mg (65 mg iron) tablet 325 mg PO DAILY SUPPLEMENT 09/02/23 furosemide 20 mg tablet (Lasix) 20 mg PO DAILY COPD 09/02/23 budesonide 3 mg capsule,delayed,extended release 9 mg PO QDAY IBS 10/13/23 fenofibrate 54 mg tablet 54 mg PO DAILY CHOLESTEROL 11/19/23 losartan 50 mg tablet 50 mg PO BID BP 11/19/23 mirtazapine 30 mg tablet 30 mg PO QHS DEPRESSION 11/19/23 apixaban 5 mg tablet (Eliquis) 5 mg PO BID BLOOD THINNER #60 tabs 12/30/23 famotidine 20 mg tablet 20 mg PO BID GERD 3 months #180 tabs 12/31/23 clopidogrel 75 mg tablet 75 mg PO DAILY BLOOD THINNER #30 tabs 01/15/24 acetaminophen 500 mg tablet 1,000 mg PO Q8 PRN pain 03/06/24 trazodone 150 mg tablet 150 mg PO QHS SLEEP 03/06/24 albuterol sulfate 2.5 mg/3 mL (0.083 %) solution for nebulization 2.5 mg (3 mL) inhalation Q2H PRN PRN Dyspnea, wheezing #0 mL 03/09/24 menthol 0.44 %-zinc oxide 20.6 % topical ointment (Calmoseptine) 1 applic topical 4X/DAY SKIN IRRITATION #0 grams 03/09/24 nutrition tx glu intol,lac-free,soy-fiber 0.06 gram-1.2 kcal/mL liquid (Glucerna 1.2 Morgan) 120 ml PO 4X/DAY CKD #0 mL 03/09/24 loratadine 10 mg capsule (Allergy Relief (loratadine)) 10 mg PO DAILY ALLERGIES 03/30/24 oxycodone 5 mg tablet 5 - 10 mg (1 - 2 x 5 mg) PO Q4H PRN pain 60 days #60 tabs 04/15/24 prednisone 20 mg tablet 40 mg (2 x 20 mg) PO DAILY #10 tabs 04/20/24 Hospital Course Operations None Procedures None Summary of Care Provided Minutes Spent on Discharge: 42 Hospital Course: Patient is a 74-year-old male with past medical history as outlined was admitted through the ED on 04/16/2024 with a complaint of shortness of breath and wheezing. He had recently been admitted from April 13 to April 14, 2024 for left knee replacement and felt fine postoperatively so was discharged to assisted facility. He started having upper respiratory symptoms and they worsened so he was brought into the ED. The ED was found to be wheezing. Chest x-ray was unremarkable. He was admitted and managed for hypoxia due to RSV. He did test positive for RSV. COVID and influenza were negative. He was placed on IV Solu-Medrol and breathing treatments. He was initially on 4 L of oxygen but was gradually weaned down to 2 L and eventually weaned off of oxygen at time of discharge. He was discharged back to assisted facility on 04/20/2024. He did have a walking pulse ox and did not require any oxygen at time of discharge. He is follow-up with his primary care doctor within 1 to 2 weeks and is also to follow-up with orthopedic surgery on outpatient basis. Patient seen and examined prior to discharge. He had no active complaints. He felt much better. Review of systems otherwise negative. Labs and vitals reviewed. Home medication reviewed and reconciled. Physical Exam Const alert, oriented x3, no apparent distress, average body habitus, healthy appearing and well nourished General Appearance: cooperative and comfortable Orientation / Consciousness: awake Exam Limitations: no limitations HEENT normocephalic, head/scalp atraumatic, hearing grossly normal bilaterally, nasal mucous membranes and turbinates normal, moist oral mucous membranes and oropharynx normal Mouth: oral and palatal mucosa normal Eyes PERRL, EOMs intact bilaterally and conjunctivae normal Neck full ROM, no lymphadenopathy and supple Lymph Lymphatic: no lymphadenopathy noted and no lymphedema noted Chest inspection of chest normal Resp normal respiratory effort, no retractions, no use of accessory muscles and clear to auscultation bilaterally Resp Narrative: on room air. Cardio regular rate, regular rhythm, S1 normal heart sound, S2 normal heart sound, no murmurs, no rub, no gallops, no clicks and peripheral pulses 2+ throughout GI normal to inspection, nondistended, normoactive bowel sounds, soft to palpation, non-tender and non-distended Back/Spine normal ROM Extremity normal to inspection, full ROM, normal capillary refill, no clubbing, cyanosis or edema and no calf tenderness Extremity Narrative: intact dressing over left knee at site of surgery General Extremity: no tenderness to palpation of joints or extremities Skin no rashes or lesions noted General Skin Exam: no breakdown Neuro oriented x3, CN's II-XII intact bilaterally, moves all extremities, no focal motor deficits and no sensory deficits noted Speech: speech normal Motor Exam: strength 5/5 throughout and general weakness Psych mental status grossly normal, thought process normal and cooperative Appearance: appropriate Weight / BMI Weight Weight: 188 lb 11.451 oz Body Mass Index (BMI) 25.6 ABG / Lab / Microbiology Data 04/20/24 07:14 04/20/24 07:14 Laboratory: Laboratory Results - last 24 hr 04/20/24 07:14: WBC 11.6 H, RBC 2.80 L, Hgb 7.5 L, Hct 24.3 L, MCV 86.8, MCH 26.8 L, MCHC 30.9 L, RDW Std Deviation 49.1 H, RDW Coeff of Tad 15.3 H, Plt Count 339, MPV 9.6, Neut % (Auto) Not Reportable, Absolute Neuts (auto) 9.3 H, Absolute Lymphs (auto) 1.04, Total Counted 100, Neutrophils % (Manual) 79 H, Band Neutrophils % 1, Lymphocytes % (Manual) 9 L, Monocytes % (Manual) 6, M etamyelocytes % 4 H, Myelocytes % 1 H, Nucleated RBCs/100 WBC 1, Diff Path Review July Platelet Estimate ADEQUATE, Anisocytosis 1+, Tear Drop Cells RARE, Ovalocytes 1+, Paola Cells RARE, Acanthocytes (Spur) RARE, Schistocytes 1+, Sodium 140, Potassium 4.5, Chloride 107, Carbon Dioxide 25.0, Anion Gap 8, BUN 41 H, Creatinine 1.20, Estim Creat Clear Calc 57.48, Est GFR (MDRD) Af Amer 76, Est GFR (MDRD) Non-Af 63, BUN/Creatinine Ratio 34.2 H, Glucose 133 H, Calcium 9.0 Microbiology: Microbiology 04/16/24 11:42 Mucosa - Nose SARS-CoV-2, Influenza & RSV (PCR) - Final RSV D/C Instructions Discharge Diet: Low fat / Low cholesterol Discharge Activity: Return to Normal Activity Weight Bearing Status: Weight bearing as tolerated Call your doctor if you observe: Fever of 101 or Higher, Shortness of breath, Dizziness, Swelling in the ankles, Chest pain and Uncontrolled pain DC O2, CPAP, BIPAP Needs RN Home O2 Qualification: Home O2 Qualification: Is the patient on home oxygen No 04/20/24 11:23 Home O2 Qualification: AT REST 1- Pulse Ox at rest 93 04/20/24 11:23 Home O2 Qualification: WITH AMBULATION 1- Pulse Ox with ambulation 96 04/20/24 11:23 1- Oxygen Flow Rate with 0 04/20/24 11:23 ambulation Home O2 Discharge instructions: No Meaningful Use Info Meaningful Use Meaningful Use Diagnoses (Choose all that apply): None applicable Ischemic Stroke Statin Dosing Therapy Reference: STATIN DOSE THERAPY REFERENCE: * Patients > 75 years receive moderate or high dose statin therapy. * Patients 75 years or YOUNGER should receive HIGH intensity statin dose unless contraindicated. You will be required to document reason for non-treatment if statin daily dose does not meet guidelines. HIGH DOSE STATIN THERAPY DAILY Atorvastatin > than or = to 40 mg Rosuvastatin > than or = to 20 mg Amlodipine + Atorvastatin > than or = to 2.5/40 mg Ezetimibe + Simvastatin 10/80 mg Simvastatin 80mg Discharge Plan Admission Admit Date/Time: 04/16/24 13:53 Primary Reason for Your Visit: COPD exacerbation, RSV infection Attending Provider: Cora Umaña Primary Care Provider: Eliel Mosley [facility] Consulting Providers: Carmelo Lowe; Anette Burrell Instructions Patient Instructions: COPD Meds Discharge Orders/Prescriptions Prescriptions: New prednisone 20 mg tablet 40 mg PO DAILY Qty: 10 0RF Continued icosapent ethyl [Vascepa] 1 gram capsule 2 g PO BID baclofen 10 mg tablet 10 mg PO TID PRN (Reason: PAIN) olanzapine [Zyprexa] 10 mg tablet 10 mg PO QHS donepezil 10 mg tablet 10 mg PO DAILY lamotrigine [Lamictal] 200 mg tablet 200 mg PO DAILY Breztri Aerosphere 160-9-4.8 mcg/actuation HFA aerosol inhaler 2 inh inhalation BID Qty: 10.7 11RF budesonide 3 mg capsule,delayed,extend.release 9 mg PO QDAY losartan 50 mg tablet 50 mg PO BID mirtazapine 30 mg tablet 30 mg PO QHS fenofibrate 54 mg tablet 54 mg PO DAILY ropinirole 0.5 MG tablet 0.5 mg PO QHS tamsulosin 0.4 MG capsule,extended release 24hr 0.4 mg PO QHS dicyclomine 20 mg tablet 20 mg PO TID potassium chloride 20 mEq tablet,ER particles/crystals 20 meq PO DAILY ondansetron 4 mg tablet,disintegrating 4 mg PO TID PRN (Reason: NAUSEA ) mesalamine 0.375 gram capsule,extended release 24hr 1.5 g PO BID ferrous sulfate 325 mg (65 mg iron) tablet 325 mg PO DAILY furosemide [Lasix] 20 mg tablet 20 mg PO DAILY Allergy Relief (loratadine) 10 mg capsule 10 mg PO DAILY acetaminophen 500 mg Tablet 1,000 mg PO Q8 PRN (Reason: pain) trazodone 150 mg tablet 150 mg PO QHS albuterol sulfate 2.5 mg /3 mL (0.083 %) Solution For Nebulization 2.5 mg inhalation Q2H PRN PRN (Reason: Dyspnea, wheezing) Qty: 0 0RF Glucerna 1.2 Morgan 0.06-1.2 gram-kcal/mL Liquid 120 ml PO 4X/DAY Qty: 0 0RF menthol-zinc oxide [Calmoseptine] 0.44-20.6 % Ointment 1 applic topical 4X/DAY Qty: 0 0RF Protocol: *Topical Application Instructions APPLICATION INSTRUCTIONS: apply to affected region atorvastatin 40 mg tablet 40 mg PO QHS Qty: 90 3RF Eliquis 5 mg tablet 5 mg PO BID Qty: 60 2RF Patient Comments: STOP 2 DAYS PRIOR TO OR PER ALEA FROM OFFICE famotidine 20 mg tablet 20 mg PO BID 90 Days Qty: 180 1RF clopidogrel 75 mg tablet 75 mg PO DAILY Qty: 30 11RF Patient Comments: STOP 7 DAYS PRIOR TO OR PER ALEA FROM OFFICE oxycodone 5 mg tablet 5 - 10 mg PO Q4H PRN (Reason: pain) 60 Days Qty: 60 0RF Referrals / Follow Up: Eliel Mosley, [facility] [Primary Care Provider] - Within 1 Week Disposition Disposition (needs filled in before D/C Order can be placed): [facility] Facility Charges/Coding Visit Charges Inpatient E&M: 12678 Disch Hosp >30min
--- NOTE | 2024-04-20 15:02 | CASEMGMT ---
Patient is ready for discharge back to [place]. SW notified RN and patient that he will be picked up at 330. Patient thanked SW. Plan: d/c back to [place] under skilled level of care. Physicians will transport patient via wheelchair van. Joie COELLO
--- NOTE | 2024-04-20 15:40 | NURSING ---
Patient discharged to [facility]. Tried to call report multiple times, no one picked up the phone. Patient has left with ambulance crew. Will continue to try to call report.
--- NOTE | 2024-04-20 16:06 | NURSING ---
attempted to call the [facility] with report on patient, left message to nursing unit to call back to hospital if they wanted report.
[2024-04-22 09:09] LABS: Pathologist Review Reviewed
== END 2024-04-20 15:39 | disposition skilled nursing facility (03) | DRG 202 ==
LOC: ED 14:01 → PCU 04-17 06:43
PROVIDERS: Internal Medicine; Nurse Practitioner; Admitting Provider Hospitalist; Emergency Provider Emergency Medicine; PCP Nurse Practitioner Family; Visit Provider Student in an Organized Health Care Education/Training Program
DX: J21.0 Acute bronchiolitis due to respiratory syncytial virus (principal); J44.1 Chronic obstructive pulmonary disease with (acute) exacerbation; D62 Acute posthemorrhagic anemia; K50.90 Crohn's disease, unspecified, without complications; N13.8 Other obstructive and reflux uropathy; F20.9 Schizophrenia, unspecified; M06.9 Rheumatoid arthritis, unspecified; I10 Essential (primary) hypertension; F32.A Depression, unspecified; D50.9 Iron deficiency anemia, unspecified; G25.81 Restless legs syndrome; J45.40 Moderate persistent asthma, uncomplicated; E78.00 Pure hypercholesterolemia, unspecified; I25.10 Atherosclerotic heart disease of native coronary artery without angina pectoris; K21.9 Gastro-esophageal reflux disease without esophagitis; I25.2 Old myocardial infarction; F41.9 Anxiety disorder, unspecified; G47.33 Obstructive sleep apnea (adult) (pediatric); G31.84 Mild cognitive impairment of uncertain or unknown etiology; M19.011 Primary osteoarthritis, right shoulder; M17.12 Unilateral primary osteoarthritis, left knee; N40.1 Benign prostatic hyperplasia with lower urinary tract symptoms; R53.81 Other malaise; R09.02 Hypoxemia; G89.4 Chronic pain syndrome; Z95.5 Presence of coronary angioplasty implant and graft; Z79.01 Long term (current) use of anticoagulants; Z79.02 Long term (current) use of antithrombotics/antiplatelets; Z79.899 Other long term (current) drug therapy; Z96.652 Presence of left artificial knee joint; Z86.718 Personal history of other venous thrombosis and embolism; Z86.711 Personal history of pulmonary embolism; Z87.891 Personal history of nicotine dependence; Z87.11 Personal history of peptic ulcer disease; Z88.0 Allergy status to penicillin; Z90.49 Acquired absence of other specified parts of digestive tract; Z87.898 Personal history of other specified conditions; Z96.611 Presence of right artificial shoulder joint; Z91.81 History of falling
CPT/HCPCS: 36415; 71046; 80048; 82803; 83605; 83735; 83880; 84100; 84145; 84484; 85018; 85025; 85027; 85379; 87631; 93005; 94640; 94668; 97162; 97166; 97535; 97802; 97803; 99285; A4216

== ENCOUNTER 2024-05-19 10:39 | Emergency (ER) | payer MEDICARE, MEDICAID, SELFPAY ==
[2024-04-30 08:44] VITALS: BMI 21.8
[2024-05-19 10:39] VITALS: BP 94/57; PULSE 95; RESP 16; TEMP 36.6; O2SAT 97; BMI 25.2
--- NOTE | 2024-05-19 11:20 | RAD_ITS ---
PROCEDURE: KNEE 4 OR MORE VIEWS REASON FOR EXAM: Fall TECHNIQUE: AP, lateral, sunrise, and tunnel views of the left knee were obtained. COMPARISON: 04/13/2024. FINDINGS: Fracture/dislocation: None visible. Joint space(s): Redemonstrated tricompartmental knee arthroplasty with patellar resurfacing. Soft tissues: Persistent soft tissue swelling in the suprapatellar region. Resolution of postoperative soft tissue gas. Foreign bodies: None visible. Removal of skin yaa. Bone mineralization: Suspect demineralization. RAD/Knee 4 or More Views IMPRESSION: 1. Suspect demineralization without visible acute displaced fracture. 2. Persistent soft tissue swelling in the suprapatellar region may reflect cont usion or surgical site infection given recent operative changes. Correlate with exam. 3. Additional description as above. Reading Location: [id number]
--- NOTE | 2024-05-19 11:39 | RAD_ITS ---
PROCEDURE: LEFT TIBIA and FIBULA 2 VIEWS REASON FOR EXAM: Knee replacement on 04/13/2024. Patient fell. Pain TECHNIQUE: 4 view(s) of left tibia and fibula COMPARISON: 04/13/2024. FINDINGS: No fracture. No suspicious bone lesion. Normal alignment at the knee and ankle. Soft tissues are unremarkable. RAD/Tibia & Fibula 2 Views IMPRESSION: NEGATIVE LEFT TIBIA AND FIBULA. Reading Location: [place] [id number]
[2024-05-19] MEDS: Acetaminophen 500 MG Tablet 1000 MG PO (11:56)
[2024-05-19 12:39] VITALS: BP 96/51; PULSE 79; RESP 18; O2SAT 92
--- NOTE | 2024-05-19 13:15 | CT_ITS ---
PROCEDURE: EXTREMITY LOWER WITHOUT CONTRA REASON FOR EXAM: History of prior left knee replacement. Patient now complains of pain and unable to bear weight following a recent fall. TECHNIQUE: Multiple axial tomographic images were obtained without intravenous contrast administration. Coronal and sagittal reconstruction was obtained as well. COMPARISON: None. FINDINGS: Bones: No fracture is seen. Joints: The patient is status post total knee replacement. There is good alignment. Soft Tissues: Moderate-sized joint effusion. CT/Extremity Lower without Contra IMPRESSION: Status post left total knee replacement. There is good alignment. No fracture or dislocation. Moderate-sized joint effusion. One or more dose reduction techniques were used (e.g., Automated exposure contr ol, adjustment of the mA and/or kV according to patient size, use of iterative reconstruction technique). Reading Location: [id number]
[2024-05-19 14:00] VITALS: BP 99/53; PULSE 77; RESP 18; O2SAT 96
--- NOTE | 2024-05-19 14:06 | EX.ED.DYSGE1 ---
HPI History of Present Illness Chief Complaint: Lower Extremity Injury Narrative Narrative: Patient is a 74-year-old male past medical history of diabetes, MONIQUE, DVT, CHF, alcohol use, bipolar disorder, COPD who presented to the emergency department with a chief complaint of left knee pain. He states that yesterday he was walking and he reached for the door causing him to lose his balance fall and landed on his left knee. He states that he had knee replacement in March. He states that he has been able to ambulate but is very painful for him to bear weight on this knee. Patient states that given the pain is not improved he called EMS to have them bring him here for the valuation management. He states that he does live alone. Patient states that he did not pass out he did not his head he remembers the entire event. [facility] Medical History History of steroid therapy Diabetes Walker as ambulation aid History of renal disease Anemia Excessive bleeding Injury of head and neck History of ulceration Gastric reflux Sleep apnea History of pain when walking Cardiology follow-up encounter History of irregular heartbeat Asthma DVT (deep venous thrombosis) Frequent falls Multiple contusions Head injury Adult failure to thrive Schizophrenia Primary osteoarthritis, right shoulder Severe malnutrition Adult failure to thrive Localized osteoarthritis of right knee Pulmonary embolism Ventral hernia, recurrent Rheumatoid arthritis Chronic pain Kidney disease Congestive heart failure (CHF) Complete rotator cuff tear Marijuana use Shoulder impingement SLAP tear of shoulder Acromioclavicular joint arthritis Essential hypertension (08/02/20) Chronic obstructive lung disease (08/02/20) Malaise and fatigue (08/02/20) Low back pain (03/01/11) Displacement of lumbar intervertebral disc without myelopathy (03/01/11) Brachial neuritis (05/31/11) Wears glasses Dementia Alcohol use Ambulates with cane Arthritis Prostate disease High cholesterol Back pain History of IBS Emphysema, unspecified History of stress test History of echocardiogram Osteoarthritis of left knee Bipolar disorder Diabetes GERD (gastroesophageal reflux disease) Former smoker COPD (chronic obstructive pulmonary disease) Myocardial infarct Hypertension Migraines Cervical spondylosis Cervical radiculitis Partial tear of right rotator cuff Essential (primary) hypertension Smoking greater than 40 pack years Dementia PVCs (premature ventricular contractions) Lung nodule < 6cm on CT Cannabis dependence DDD (degenerative disc disease) BPH (benign prostatic hyperplasia) Anxiety Depression Atherosclerotic heart disease of [place] coronary artery without angina pectoris Hyperlipidemia Trigger finger MONIQUE (obstructive sleep apnea) Stage 2 moderate COPD by GOLD classification Peptic ulcer disease Restless leg syndrome Schizophrenia Asthma History of pulmonary embolism Home Medications ?Medication ?Instructions ?Recorded ?Last Taken ?Type ropinirole 0.5 mg tablet 0.5 mg PO QHS RESTLESS LEGS 04/23/16 04/12/24 History tamsulosin 0.4 mg capsule 0.4 mg PO QHS PROSTATE 01/30/17 04/12/24 History baclofen 10 mg tablet 10 mg PO TID PRN PAIN 11/09/20 07/09/23 History icosapent ethyl 1 gram capsule 2 g PO BID HEART 11/09/20 04/12/24 History (Vascepa) donepezil 10 mg tablet 10 mg PO DAILY ALZHEIMERS 10/23/21 04/12/24 History lamotrigine 200 mg tablet 200 mg PO DAILY MOOD 10/23/21 04/13/24 History (Lamictal) olanzapine 10 mg tablet (Zyprexa) 10 mg PO QHS MOOD 10/23/21 04/12/24 History budesonide 160 mcg-glycopyr 9 2 inh inhalation BID COPD #10.7 01/28/23 04/13/24 Rx mcg-formot 4.8 mcg/actuation HFA grams inhaler (Breztri Aerosphere) dicyclomine 20 mg tablet 20 mg PO TID IRRITABLE BOWELS 04/15/23 04/12/24 History ondansetron 4 mg disintegrating 4 mg PO TID PRN NAUSEA 04/15/23 03/05/24 History tablet potassium chloride 20 mEq 20 meq PO DAILY SUPPLEMENT 04/15/23 04/12/24 History tablet,extended release(part/cryst) atorvastatin 40 mg tablet 40 mg PO QHS CHOLESTEROL #90 tabs 06/24/23 04/12/24 Rx mesalamine 0.375 gram 1.5 g PO BID IBS 07/10/23 04/12/24 History capsule,extended release 24 hr ferrous sulfate 325 mg (65 mg 325 mg PO DAILY SUPPLEMENT 09/02/23 04/12/24 History iron) tablet furosemide 20 mg tablet (Lasix) 20 mg PO DAILY COPD 09/02/23 04/12/24 History budesonide 3 mg 9 mg PO QDAY IBS 10/13/23 04/12/24 History capsule,delayed,extended release fenofibrate 54 mg tablet 54 mg PO DAILY CHOLESTEROL 11/19/23 04/12/24 History losartan 50 mg tablet 50 mg PO BID BP 11/19/23 04/13/24 History mirtazapine 30 mg tablet 30 mg PO QHS DEPRESSION 11/19/23 04/12/24 History apixaban 5 mg tablet (Eliquis) 5 mg PO BID BLOOD THINNER #60 tabs 12/30/23 04/11/24 Rx famotidine 20 mg tablet 20 mg PO BID GERD 3 months #180 12/31/23 04/13/24 Rx tabs clopidogrel 75 mg tablet 75 mg PO DAILY BLOOD THINNER #30 01/15/24 04/06/24 Rx tabs acetaminophen 500 mg tablet 1,000 mg PO Q8 PRN pain 03/06/24 Unknown History trazodone 150 mg tablet 150 mg PO QHS SLEEP 03/06/24 04/12/24 History albuterol sulfate 2.5 mg/3 mL 2.5 mg (3 mL) inhalation Q2H PRN 03/09/24 04/13/24 04:30 Rx (0.083 %) solution for nebulization PRN Dyspnea, wheezing #0 mL menthol 0.44 %-zinc oxide 20.6 % 1 applic topical 4X/DAY SKIN 03/09/24 04/12/24 Rx topical ointment (Calmoseptine) IRRITATION #0 grams nutrition tx glu 120 ml PO 4X/DAY CKD #0 mL 03/09/24 04/12/24 Rx intol,lac-free,soy-fiber 0.06 gram-1.2 kcal/mL liquid (Glucerna 1.2 Morgan) loratadine 10 mg capsule (Allergy 10 mg PO DAILY ALLERGIES 03/30/24 04/12/24 History Relief (loratadine)) prednisone 20 mg tablet 40 mg (2 x 20 mg) PO DAILY #10 tabs 04/20/24 Unknown Rx menthol 10 % topical cream See Rx Instructions topical .QID 05/03/24 Unknown Rx (Biofreeze (menthol)) PRN pain #85 grams Allergy/AdvReac Type Severity Reaction Status Date / Time Quinolones Allergy Unknown unknown Verified 04/30/24 08:28 aspirin Allergy Itching, Verified 04/30/24 08:28 Hives levofloxacin (From Levaquin) Allergy Hives, Verified 04/30/24 08:28 Itching Penicillins Allergy Hives, Verified 04/30/24 08:28 Itching Family History Mother CAD (coronary artery disease) Sister Diabetes Father Alcoholism Surgical History History of cardiac catheterization Hx of total shoulder replacement History of cholecystectomy History of coronary artery stent placement History of right shoulder replacement Hx of colonoscopy S/P right rotator cuff repair Hx of repair of right rotator cuff (06/04/22) H/O left knee surgery History of laparoscopic cholecystectomy History of appendectomy H/O cervical spine surgery H/O ventral hernia repair History of left heart catheterization (04/2016) History of coronary artery stent placement (10/16/18) Social History household members: none housing: house current occupational status: disabled Smoking Status: Former smoker quit date: 02/14/15 how long ago did patient quit smokin years ago second hand exposure: Yes alcohol intake: former details: Quit 9 years ago substance use type: marijuana caffeine: Yes Type: coffee what type of physical activity do you participate in: none seatbelt use: always do you feel safe at home: Yes ROS ROS ED ROS Narrative Constitutional: denies headache, lightness, changes, fevers, chills Eyes: Denies change in vision double vision blurry vision Cardiovascular: Denies chest pain Respiratory: Denies cough wheezing shortness of breath Abdomen: Denies nausea vomit diarrhea : Denies urinary symptoms Neurological: Denies numbness, weakness, tingling Musculoskeletal: Complains of left knee pain as noted above denies back pain Skin: Denies rashes or lesions EXAM Physical Exam Narrative Exam Narrative: General: Patient lying in bed did appear uncomfortable secondary to left knee pain Head: Atraumatic, normocephalic Eyes: PERRL bilaterally, EOMI bilateral, no conjunctival injection noted Neck: Soft, supple, trach midline, no tenderness palpation midline cervical spine Cardiovascular: Regular rate and rhythm no murmurs gallops rubs noted Respiratory: Clear to auscultation bilaterally Abdomen: Soft, nondistended, nontender to palpation Musculoskeletal: Patient has some tenderness palpation over his left knee and his distal tibia all of the bony prominences and joints taken to full range of motion no pain elicited no tenderness palpation midline of thoracic lumbar spine Extremities: +5/5 strength noted in the bilateral upper extremities in the right lower extremity, +4/5 strength in the left lower extremity secondary to pain DP pulses +2/4 in the bilateral lower extremities Neurological: Patient following commands knew that he was at [facility] year is 2024 Skin: Patient's surgical incision is well-healing on his left knee, no concern for infection. Const Vital Signs: 05/19/24 10:39 05/19/24 12:39 05/19/24 14:00 Temperature 97.9 F Temperature Source Oral Pulse Rate 95 79 77 Respiratory Rate 16 18 18 Blood Pressure 94/57 L 96/51 L 99/53 L Blood Pressure Mean 69 66 68 Pulse Ox 97 92 96 Oxygen Delivery Method Room Air Room Air MDM MDM MDM Narrative Medical decision making narrative: Patient is a 74-year-old male who presented to the emergency department with a chief complaint of left knee pain after mechanical fall yesterday. On the differential diagnose includes but not limited to periprosthetic fracture, patella fracture, distal tibia fracture. Once workup is obtained reviewed he will be reevaluated. Patient was given Tylenol for pain. The patient's x-ray of his knee was reviewed by myself and by radiology which showed no acute fracture or dislocation. There is persistent soft tissue swelling suprapatellar region may reflect contusion or surgical site infection given recent operative changes. I am not concerned for infection at this point time patient had trauma to his knee this is likely a contusion. Patient's CT scan of his knee was reviewed as he ambulated here he was able to do so but he still complaining of pain. CT did not show any acute fracture dislocation he has a moderate-sized joint effusion noted however good alignment of the left total knee replacement. I called and discussed case with orthopedic surgeon Dr. Viramontes who did the patient surgery and states that he knows this patient well called his office earlier today and states that he was stating that he could not ambulate and get to the scheduled appointment and that was in the office therefore they advised him to come to the ER. He states that there is nothing to do at this point time and given that he ambulated here in the emergency department at his baseline he can return home. I discussed this plan with the patient he is agreeable he is advised to ice elevate and use Tylenol for pain control. He was advised to return with worsening symptoms or concerns otherwise he is to follow-up with his orthopedic surgeon and his primary care physician outpatient setting. He is agreeable this plan he would like to go home at this point in time and is feeling better all question concerns answered is discharged home in stable condition. Radiography Diagnostic Testing: Clinical Impression(s) from Imaging Studies Knee X-Ray 05/19/24 11:20 IMPRESSION: 1. Suspect demineralization without visible acute displaced fracture. 2. Persistent soft tissue swelling in the suprapatellar region may reflect contusion or surgical site infection given recent operative changes. Correlate with exam. 3. Additional description as above. Reading Location: [id number] Tibia/Fibula X-Ray 05/19/24 11:39 IMPRESSION: NEGATIVE LEFT TIBIA AND FIBULA. [id number] 05/19/24 13:15 IMPRESSION: Status post left total knee replacement. There is good alignment. No fracture or dislocation. Moderate-sized joint effusion. One or more dose reduction techniques were used (e.g., Automated exposure control, adjustment of the mA and/or kV according to patient size, use of iterative reconstruction technique). Reading Location: [id number] Discharge Plan Triage Chief Complaint: Lower Extremity Injury ED Provider: Abbe Lowery Dx/Rx/DC Orders Clinical Impression: Knee pain, left, Fall Prescriptions: No Action icosapent ethyl [Vascepa] 1 gram capsule 2 g PO BID baclofen 10 mg tablet 10 mg PO TID PRN (Reason: PAIN) olanzapine [Zyprexa] 10 mg tablet 10 mg PO QHS donepezil 10 mg tablet 10 mg PO DAILY lamotrigine [Lamictal] 200 mg tablet 200 mg PO DAILY Breztri Aerosphere 160-9-4.8 mcg/actuation HFA aerosol inhaler 2 inh inhalation BID Qty: 10.7 11RF budesonide 3 mg capsule,delayed,extend.release 9 mg PO QDAY losartan 50 mg tablet 50 mg PO BID mirtazapine 30 mg tablet 30 mg PO QHS fenofibrate 54 mg tablet 54 mg PO DAILY ropinirole 0.5 MG tablet 0.5 mg PO QHS tamsulosin 0.4 MG capsule,extended release 24hr 0.4 mg PO QHS dicyclomine 20 mg tablet 20 mg PO TID potassium chloride 20 mEq tablet,ER particles/crystals 20 meq PO DAILY ondansetron 4 mg tablet,disintegrating 4 mg PO TID PRN (Reason: NAUSEA ) mesalamine 0.375 gram capsule,extended release 24hr 1.5 g PO BID ferrous sulfate 325 mg (65 mg iron) tablet 325 mg PO DAILY furosemide [Lasix] 20 mg tablet 20 mg PO DAILY Allergy Relief (loratadine) 10 mg capsule 10 mg PO DAILY prednisone 20 mg tablet 40 mg PO DAILY Qty: 10 0RF acetaminophen 500 mg Tablet 1,000 mg PO Q8 PRN (Reason: pain) trazodone 150 mg tablet 150 mg PO QHS albuterol sulfate 2.5 mg /3 mL (0.083 %) Solution For Nebulization 2.5 mg inhalation Q2H PRN PRN (Reason: Dyspnea, wheezing) Qty: 0 0RF Glucerna 1.2 Morgan 0.06-1.2 gram-kcal/mL Liquid 120 ml PO 4X/DAY Qty: 0 0RF menthol-zinc oxide [Calmoseptine] 0.44-20.6 % Ointment 1 applic topical 4X/DAY Qty: 0 0RF Protocol: *Topical Application Instructions APPLICATION INSTRUCTIONS: apply to affected region atorvastatin 40 mg tablet 40 mg PO QHS Qty: 90 3RF Eliquis 5 mg tablet 5 mg PO BID Qty: 60 2RF Patient Comments: STOP 2 DAYS PRIOR TO OR PER ALEA FROM OFFICE famotidine 20 mg tablet 20 mg PO BID 90 Days Qty: 180 1RF clopidogrel 75 mg tablet 75 mg PO DAILY Qty: 30 11RF Patient Comments: STOP 7 DAYS PRIOR TO OR PER ALEA FROM OFFICE Biofreeze (menthol) 10 % cream See Rx Instructions topical .QID PRN (Reason: pain) Qty: 85 0RF Rx Instructions: as directed topically QID PRN; Primary Care Provider: Eliel Mosley Referrals: Eliel Mosley, [facility] [Primary Care Provider] - Activity Restrictions/Additional Instructions: Follow-up with your orthopedic surgeon outpatient setting. Follow-up with your primary care physician in the outpatient setting. Return with worsening symptoms or concerns. Your CT scan did not show anything broken. Ice, elevate, take Tylenol for pain control when you do this and the max dose of Tylenol is 4000 mg a day. Print Language: [place] Disposition Disposition: Home, Self Care
[2024-05-19 15:14] VITALS: BP 98/56; PULSE 75; RESP 18; TEMP 36.3; O2SAT 95
== END 2024-05-19 15:15 | disposition home or self-care (01) ==
PROVIDERS: Emergency Provider Emergency Medicine; PCP Nurse Practitioner Family; Visit Provider Emergency Medicine
DX: M25.562 Pain in left knee (principal); M06.9 Rheumatoid arthritis, unspecified; I11.0 Hypertensive heart disease with heart failure; I50.9 Heart failure, unspecified; F03.92 Unspecified dementia, unspecified severity, with psychotic disturbance; F03.94 Unspecified dementia, unspecified severity, with anxiety; F03.93 Unspecified dementia, unspecified severity, with mood disturbance; J44.9 Chronic obstructive pulmonary disease, unspecified; E11.9 Type 2 diabetes mellitus without complications; W01.0XXA Fall on same level from slipping, tripping and stumbling without subsequent striking against object, initial encounter; M17.0 Bilateral primary osteoarthritis of knee; K21.9 Gastro-esophageal reflux disease without esophagitis; I25.2 Old myocardial infarction; I25.10 Atherosclerotic heart disease of native coronary artery without angina pectoris; N40.0 Benign prostatic hyperplasia without lower urinary tract symptoms; K58.9 Irritable bowel syndrome, unspecified; E78.00 Pure hypercholesterolemia, unspecified; G47.33 Obstructive sleep apnea (adult) (pediatric); G25.81 Restless legs syndrome; Z95.5 Presence of coronary angioplasty implant and graft; Z88.0 Allergy status to penicillin; Z87.11 Personal history of peptic ulcer disease; Z86.718 Personal history of other venous thrombosis and embolism; Z86.711 Personal history of pulmonary embolism; Z87.891 Personal history of nicotine dependence; Z96.652 Presence of left artificial knee joint
CPT/HCPCS: 73564; 73590; 73700; 99284

== ENCOUNTER 2024-06-06 12:43 | Emergency (ER) | payer MEDICARE, MEDICAID, SELFPAY ==
[2024-05-27 11:10] VITALS: BMI 21.8
[2024-06-06 12:44] VITALS: BP 132/84; PULSE 115; RESP 20; TEMP 36.3; O2SAT 99
--- NOTE | 2024-06-06 13:00 | RAD_ITS ---
PROCEDURE: KNEE 4 OR MORE VIEWS 06/06/2024 REASON FOR EXAM: PAIN TECHNIQUE: Four view right knee series and four view left knee series (combined dictation). COMPARISON: Left knee series of 05/19/2024. RAD/Knee 4 or More Views IMPRESSION: Right knee: No right knee joint effusion is noted. Mild degenerative changes are seen, with at least mild medial joint narrowing n oted. No acute fracture or dislocation is seen. If clinical concern persists, short-term follow-up imaging may be obtained to r ule out a currently occult fracture. Left knee: No joint effusion is clearly appreciated. A left total knee prosthesis remains in place, with satisfactory alignment. No evidence of prosthesis loosening or metallic fracture. A loose intra-articular body seen posteriorly No fracture or dislocation is seen. If clinical concern persists, short-term follow-up imaging may be obtained to r ule out a currently occult fracture. Reading Location: [id number]
[2024-06-06 13:03] VITALS: PULSE 96
--- NOTE | 2024-06-06 13:06 | EDS_ITS ---
HPI <JERMAINE Dietz - Last Filed: 06/06/24 14:36> History of Present Illness Chief Complaint: Lower Extremity Injury Narrative Narrative: Presenting today with bilateral knee pain and left shoulder pain after mechanical fall occurred 3 to 4 days ago. He lost his balance and fell directly onto his bilateral knees and then landed on his left shoulder. His pain is progressively worsening. No head injury, N/V. He reports that the pain in his left knee is worse than the right. He did recently have a L total knee arthroplasty performed by Dr. Kessler in March. He did see him about a week ago for postop check and was told everything was looking good. He is able to ambulate. He is taking tramadol with minimal relief of his pain. He denies any fevers or chills. He reports that he is feeling well otherwise [facility] <JERMAINE Dietz - Last Filed: 06/06/24 14:36> [facility] Medical History History of steroid therapy Diabetes Walker as ambulation aid History of renal disease Anemia Excessive bleeding Injury of head and neck History of ulceration Gastric reflux Sleep apnea History of pain when walking Cardiology follow-up encounter History of irregular heartbeat Asthma DVT (deep venous thrombosis) Frequent falls Multiple contusions Head injury Adult failure to thrive Schizophrenia Primary osteoarthritis, right shoulder Severe malnutrition Adult failure to thrive Localized osteoarthritis of right knee Pulmonary embolism Ventral hernia, recurrent Rheumatoid arthritis Chronic pain Kidney disease Congestive heart failure (CHF) Complete rotator cuff tear Marijuana use Shoulder impingement SLAP tear of shoulder Acromioclavicular joint arthritis Essential hypertension (08/02/20) Chronic obstructive lung disease (08/02/20) Malaise and fatigue (08/02/20) Low back pain (03/01/11) Displacement of lumbar intervertebral disc without myelopathy (03/01/11) Brachial neuritis (05/31/11) Wears glasses Dementia Alcohol use Ambulates with cane Arthritis Prostate disease High cholesterol Back pain History of IBS Emphysema, unspecified History of stress test History of echocardiogram Osteoarthritis of left knee Bipolar disorder Diabetes GERD (gastroesophageal reflux disease) Former smoker COPD (chronic obstructive pulmonary disease) Myocardial infarct Hypertension Migraines Cervical spondylosis Cervical radiculitis Partial tear of right rotator cuff Essential (primary) hypertension Smoking greater than 40 pack years Dementia PVCs (premature ventricular contractions) Lung nodule < 6cm on CT Cannabis dependence DDD (degenerative disc disease) BPH (benign prostatic hyperplasia) Anxiety Depression Atherosclerotic heart disease of [place] coronary artery without angina pectoris Hyperlipidemia Trigger finger MONIQUE (obstructive sleep apnea) Stage 2 moderate COPD by GOLD classification Peptic ulcer disease Restless leg syndrome Schizophrenia Asthma History of pulmonary embolism Home Medications ?Medication ?Instructions ?Recorded ?Last Taken ?Type ropinirole 0.5 mg tablet 0.5 mg PO QHS RESTLESS LEGS 04/23/16 04/12/24 History tamsulosin 0.4 mg capsule 0.4 mg PO QHS PROSTATE 01/3004/12/24 History baclofen 10 mg tablet 10 mg PO TID PRN PAIN 07/09/23 History icosapent ethyl 1 gram capsule 2 g PO BID HEART 04/12/24 History (Vascepa) donepezil 10 mg tablet 10 mg PO DAILY ALZHEIMERS 04/12/24 History lamotrigine 200 mg tablet 200 mg PO DAILY MOOD 2 04/13/24 History (Lamictal) olanzapine 10 mg tablet (Zyprexa) 10 mg PO QHS MOOD 04/12/24 History budesonide 160 mcg-glycopyr 9 2 inh inhalation BID TRIMMER HELPER D #10.7 01/28/23 04/13/24 Rx mcg-formot 4.8 mcg/actuation HFA grams inhaler (Breztri Aerosphere) dicyclomine 20 mg tablet 20 mg PO TID IRRITABLE BOWEL S 04/15/23 04/12/24 History ondansetron 4 mg disintegrating 4 mg PO TID PRN NAUSEA 04/15/23 03/05/24 History tablet potassium chloride 20 mEq 20 meq PO DAILY SUPPLEMENT 0 04/15/23 04/12/24 History tablet,extended release(part/cryst) atorvastatin 40 mg tablet 40 mg PO QHS CHOLESTEROL #90 tabs 06/24/23 04/12/24 Rx mesalamine 0.375 gram 1.5 g PO BID IBS 07/10/23 History capsule,extended release 24 hr ferrous sulfate 325 mg (65 mg 325 mg PO DAILY SUPPLEME NT 09/02/23 04/12/24 History iron) tablet furosemide 20 mg tablet (Lasix) 20 mg PO DAILY COPD 04/12/24 History budesonide 3 mg 9 mg PO QDAY IBS 10/13/23 History capsule,delayed,extended release fenofibrate 54 mg tablet 54 mg PO DAILY CHOLESTEROL 0 11/19/23 04/12/24 History losartan 50 mg tablet 50 mg PO BID BP 11/19/23 History mirtazapine 30 mg tablet 30 mg PO QHS DEPRESSION 09/07/0804/12/24 History apixaban 5 mg tablet (Eliquis) 5 mg PO BID BLOOD THINN ER #60 tabs 12/30/23 04/11/24 Rx famotidine 20 mg tablet 20 mg PO BID GERD 3 months # 180 12/31/23 04/13/24 Rx tabs clopidogrel 75 mg tablet 75 mg PO DAILY BLOOD THINNER #30 01/15/24 04/06/24 Rx tabs acetaminophen 500 mg tablet 1,000 mg PO Q8 PRN pain Unknown History trazodone 150 mg tablet 150 mg PO QHS SLEEP 03/06/24 04/12/24 History albuterol sulfate 2.5 mg/3 mL 2.5 mg (3 mL) inhalation Q2H PRN 03/09/24 04/13/24 04:30 Rx (0.083 %) solution for nebulization PRN Dyspnea, wheez ing #0 mL menthol 0.44 %-zinc oxide 20.6 % 1 applic topical 4X/D AY SKIN 03/09/24 04/12/24 Rx topical ointment (Calmoseptine) IRRITATION #0 grams nutrition tx glu 120 ml PO 4X/DAY CKD #0 mL 1 05/10/23 04/12/24 Rx intol,lac-free,soy-fiber 0.06 gram-1.2 kcal/mL liquid (Glucerna
--- NOTE | 2024-06-06 13:06 | ED.VIS.LOWEX ---
HPI <JERMAINE Dietz - Last Filed: 06/06/24 14:36> History of Present Illness Chief Complaint: Lower Extremity Injury Narrative Narrative: Presenting today with bilateral knee pain and left shoulder pain after mechanical fall occurred 3 to 4 days ago. He lost his balance and fell directly onto his bilateral knees and then landed on his left shoulder. His pain is progressively worsening. No head injury, N/V. He reports that the pain in his left knee is worse than the right. He did recently have a L total knee arthroplasty performed by Dr. Kessler in March. He did see him about a week ago for postop check and was told everything was looking good. He is able to ambulate. He is taking tramadol with minimal relief of his pain. He denies any fevers or chills. He reports that he is feeling well otherwise [facility] <JERMAINE Dietz - Last Filed: 06/06/24 14:36> [facility] Medical History History of steroid therapy Diabetes Walker as ambulation aid History of renal disease Anemia Excessive bleeding Injury of head and neck History of ulceration Gastric reflux Sleep apnea History of pain when walking Cardiology follow-up encounter History of irregular heartbeat Asthma DVT (deep venous thrombosis) Frequent falls Multiple contusions Head injury Adult failure to thrive Schizophrenia Primary osteoarthritis, right shoulder Severe malnutrition Adult failure to thrive Localized osteoarthritis of right knee Pulmonary embolism Ventral hernia, recurrent Rheumatoid arthritis Chronic pain Kidney disease Congestive heart failure (CHF) Complete rotator cuff tear Marijuana use Shoulder impingement SLAP tear of shoulder Acromioclavicular joint arthritis Essential hypertension (08/02/20) Chronic obstructive lung disease (08/02/20) Malaise and fatigue (08/02/20) Low back pain (03/01/11) Displacement of lumbar intervertebral disc without myelopathy (03/01/11) Brachial neuritis (05/31/11) Wears glasses Dementia Alcohol use Ambulates with cane Arthritis Prostate disease High cholesterol Back pain History of IBS Emphysema, unspecified History of stress test History of echocardiogram Osteoarthritis of left knee Bipolar disorder Diabetes GERD (gastroesophageal reflux disease) Former smoker COPD (chronic obstructive pulmonary disease) Myocardial infarct Hypertension Migraines Cervical spondylosis Cervical radiculitis Partial tear of right rotator cuff Essential (primary) hypertension Smoking greater than 40 pack years Dementia PVCs (premature ventricular contractions) Lung nodule < 6cm on CT Cannabis dependence DDD (degenerative disc disease) BPH (benign prostatic hyperplasia) Anxiety Depression Atherosclerotic heart disease of [place] coronary artery without angina pectoris Hyperlipidemia Trigger finger MONIQUE (obstructive sleep apnea) Stage 2 moderate COPD by GOLD classification Peptic ulcer disease Restless leg syndrome Schizophrenia Asthma History of pulmonary embolism Home Medications ?Medication ?Instructions ?Recorded ?Last Taken ?Type ropinirole 0.5 mg tablet 0.5 mg PO QHS RESTLESS LEGS 04/23/16 04/12/24 History tamsulosin 0.4 mg capsule 0.4 mg PO QHS PROSTATE 01/30/17 04/12/24 History baclofen 10 mg tablet 10 mg PO TID PRN PAIN 11/09/20 07/09/23 History icosapent ethyl 1 gram capsule 2 g PO BID HEART 11/09/20 04/12/24 History (Vascepa) donepezil 10 mg tablet 10 mg PO DAILY ALZHEIMERS 10/23/21 04/12/24 History lamotrigine 200 mg tablet 200 mg PO DAILY MOOD 10/23/21 04/13/24 History (Lamictal) olanzapine 10 mg tablet (Zyprexa) 10 mg PO QHS MOOD 10/23/21 04/12/24 History budesonide 160 mcg-glycopyr 9 2 inh inhalation BID COPD #10.7 01/28/23 04/13/24 Rx mcg-formot 4.8 mcg/actuation HFA grams inhaler (Breztri Aerosphere) dicyclomine 20 mg tablet 20 mg PO TID IRRITABLE BOWELS 04/15/23 04/12/24 History ondansetron 4 mg disintegrating 4 mg PO TID PRN NAUSEA 04/15/23 03/05/24 History tablet potassium chloride 20 mEq 20 meq PO DAILY SUPPLEMENT 04/15/23 04/12/24 History tablet,extended release(part/cryst) atorvastatin 40 mg tablet 40 mg PO QHS CHOLESTEROL #90 tabs 06/24/23 04/12/24 Rx mesalamine 0.375 gram 1.5 g PO BID IBS 07/10/23 04/12/24 History capsule,extended release 24 hr ferrous sulfate 325 mg (65 mg 325 mg PO DAILY SUPPLEMENT 09/02/23 04/12/24 History iron) tablet furosemide 20 mg tablet (Lasix) 20 mg PO DAILY COPD 09/02/23 04/12/24 History budesonide 3 mg 9 mg PO QDAY IBS 10/13/23 04/12/24 History capsule,delayed,extended release fenofibrate 54 mg tablet 54 mg PO DAILY CHOLESTEROL 11/19/23 04/12/24 History losartan 50 mg tablet 50 mg PO BID BP 11/19/23 04/13/24 History mirtazapine 30 mg tablet 30 mg PO QHS DEPRESSION 11/19/23 04/12/24 History apixaban 5 mg tablet (Eliquis) 5 mg PO BID BLOOD THINNER #60 tabs 12/30/23 04/11/24 Rx famotidine 20 mg tablet 20 mg PO BID GERD 3 months #180 12/31/23 04/13/24 Rx tabs clopidogrel 75 mg tablet 75 mg PO DAILY BLOOD THINNER #30 01/15/24 04/06/24 Rx tabs acetaminophen 500 mg tablet 1,000 mg PO Q8 PRN pain 03/06/24 Unknown History trazodone 150 mg tablet 150 mg PO QHS SLEEP 03/06/24 04/12/24 History albuterol sulfate 2.5 mg/3 mL 2.5 mg (3 mL) inhalation Q2H PRN 03/09/24 04/13/24 04:30 Rx (0.083 %) solution for nebulization PRN Dyspnea, wheezing #0 mL menthol 0.44 %-zinc oxide 20.6 % 1 applic topical 4X/DAY SKIN 03/09/24 04/12/24 Rx topical ointment (Calmoseptine) IRRITATION #0 grams nutrition tx glu 120 ml PO 4X/DAY CKD #0 mL 03/09/24 04/12/24 Rx intol,lac-free,soy-fiber 0.06 gram-1.2 kcal/mL liquid (Glucerna 1.2 Morgan) loratadine 10 mg capsule (Allergy 10 mg PO DAILY ALLERGIES 03/30/24 04/12/24 History Relief (loratadine)) prednisone 20 mg tablet 40 mg (2 x 20 mg) PO DAILY #10 tabs 04/20/24 Unknown Rx menthol 10 % topical cream See Rx Instructions topical .QID 05/03/24 Unknown Rx (Biofreeze (menthol)) PRN pain #85 grams tramadol 50 mg tablet 50 mg PO BID 06/02/24 Unknown History hydrocodone-acetaminophen 5-325mg 1 tab PO Q4H PRN PRN Pain 3 days 06/06/24 Unknown Rx 5mg-325mg #10 TABLETS Allergy/AdvReac Type Severity Reaction Status Date / Time Quinolones Allergy Unknown unknown Verified 06/06/24 12:44 aspirin Allergy Itching, Verified 06/06/24 12:44 Hives levofloxacin (From Levaquin) Allergy Hives, Verified 06/06/24 12:44 Itching Penicillins Allergy Hives, Verified 06/06/24 12:44 Itching Family History Mother CAD (coronary artery disease) Sister Diabetes Father Alcoholism Surgical History History of cardiac catheterization Hx of total shoulder replacement History of cholecystectomy History of coronary artery stent placement History of right shoulder replacement Hx of colonoscopy S/P right rotator cuff repair Hx of repair of right rotator cuff (06/04/22) H/O left knee surgery History of laparoscopic cholecystectomy History of appendectomy H/O cervical spine surgery H/O ventral hernia repair History of left heart catheterization (04/2016) History of coronary artery stent placement (10/16/18) Social History household members: none housing: house current occupational status: disabled Smoking Status: Former smoker quit date: 02/14/15 how long ago did patient quit smokin years ago second hand exposure: Yes alcohol intake: former details: Quit 9 years ago substance use type: marijuana caffeine: Yes Type: coffee what type of physical activity do you participate in: none seatbelt use: always do you feel safe at home: Yes ROS <JERMAINE Dietz - Last Filed: 06/06/24 14:36> ROS ED Constitutional Constitutional ED: Denies chills or fever(s) Cardiovascular Cardiovascular: Denies chest pain Respiratory/Chest Respiratory/Chest: Denies dyspnea Gastrointestinal Gastrointestinal: Denies abdominal pain, nausea or vomiting Musculoskeletal Musculoskeletal: Reports arthralgias Integumentary Denies Abrasions or rash Neurologic Neurologic: Denies paresthesias or weakness EXAM <JERMAINE Dietz - Last Filed: 06/06/24 14:36> Physical Exam Const Vital Signs: 06/06/24 12:44 06/06/24 13:03 06/06/24 14:10 Temperature 97.3 F L 98 F Temperature Source Temporal Pulse Rate 115 H 96 82 Respiratory Rate 20 H 16 Blood Pressure 132/84 H 129/78 H Blood Pressure Mean 100 95 Pulse Ox 99 100 Oxygen Delivery Method Room Air Positive well nourished, well developed and no apparent distress General Appearance ED: well developed HEENT Reports normocephalic and head/scalp atraumatic Mouth ED: Yes moist mucous membranes normal Eyes PERRL and EOMs intact bilaterally Neck full ROM and supple Chest Wall inspection of chest normal Resp normal respiratory effort and clear to auscultation bilaterally Cardio regular rate and regular rhythm Back/Spine normal ROM and normal to inspection Extremity full ROM Extremity Narrative: Slight effusion with faint erythema to the left knee with limited active range of motion due to pain, extensor mechanism is intact. Intact passive range of motion. Exam not consistent with septic joint. Slight bruising to the inferior aspect of the left patella. Right knee unremarkable, no effusion, full range of motion, generalized tenderness to palpation to the bilateral knees. Well-healed incision to the left knee without dehiscence or purulent discharge. Limited active range of motion to the left shoulder secondary to pain, no overlying erythema, generalized pain to palpation to the left shoulder with pain to the left AC joint. Left radial pulse 2+, bilateral DP pulse 2+. Neuro oriented x3, CN's II-XII intact bilaterally, moves all extremities, no focal motor deficits and no sensory deficits noted Sensorium / Orientation: awake and alert Psych mental status grossly normal Skin no rashes or lesions noted and no wounds <Dr. Ish Boateng MD - Last Filed: 06/06/24 14:51> Physical Exam Const Vital Signs: 06/06/24 12:44 06/06/24 13:03 06/06/24 14:10 Temperature 97.3 F L 98 F Temperature Source Temporal Pulse Rate 115 H 96 82 Respiratory Rate 20 H 16 Blood Pressure 132/84 H 129/78 H Blood Pressure Mean 100 95 Pulse Ox 99 100 Oxygen Delivery Method Room Air MDM <JERMAINE Dietz - Last Filed: 06/06/24 14:36> MDM MDM Narrative Medical decision making narrative: Patient presenting today with pain to his bilateral knees and left shoulder after a mechanical fall a few days ago. He did have a left knee arthroplasty performed by Dr. Cohn. Incision is healed without any signs of infection. There is minimal bruising to the inferior aspect of the left patella with a slight effusion to the left knee with faint erythema. Examination is not consistent with septic joint. I did consider infection, however I think that his effusion is secondary to trauma given his recent fall. He is neurovascularly intact to his bilateral lower extremities. Right knee exam unremarkable. Left upper extremity also neurovascularly intact. He is otherwise nontoxic-appearing. X-rays of the bilateral knees and left shoulder obtained. Bilateral knee x-rays are unremarkable, left shoulder x-ray shows possible calcific tendinitis and degenerative changes. He was given [place] here for pain and did report improvement of his symptoms. I will give him a short course of [place] for home. I recommended he follow-up closely with orthopedics and return instructions were discussed. RICE instructions discussed and patient discharged home in stable condition. I have personally performed a face to face assessment of the patient and have reviewed the LOPEZ Note. I performed a substantive portion of the visit including all aspects of the following. My stratton findings include: History is remarkable for fall with injury to the right and left knee. Left knee is more tender. Patient is status post total knee arthroplasty by Dr. Miguelangel Snow. He had no head trauma. Denies headache. Denies nausea or vomiting. Denies cardiac or respiratory symptoms. Complains of pain left shoulder region as well as the right and left knee. There is no history of schizophrenia, pulmonary embolus, obstructive sleep apnea, COPD, rheumatoid arthritis, iron deficiency anemia. Exam is markable for bruising lateral proximal right leg and inferior the left patella. There is also soft tissue swelling or discoloration of left shoulder. Axillary, median, radial and ulnar function intact. He has pain outpatient over the clavicle AC joint proximal humerus. There is slight swelling of the right knee. Full extension. No significant laxity with varus valgus stress testing. Jane's test is negative. Able to extend against gravity. Right knee full active range of motion. No laxity varus valgus stress testing and negative Jane's test. There is bruising noted inferior lateral aspect of the knee/proximal leg. There is no bone tenderness over the fibular head. Medical Decision Making x-ray was obtained to evaluate for fracture versus contusion of the left shoulder, left and right knee. Other additions or changes: [None] Radiography Diagnostic Testing: Clinical Impression(s) from Imaging Studies Knee X-Ray 06/06/24 13:00 IMPRESSION: Right knee: No right knee joint effusion is noted. Mild degenerative changes are seen, with at least mild medial joint narrowing noted. No acute fracture or dislocation is seen. If clinical concern persists, short-term follow-up imaging may be obtained to rule out a currently occult fracture. Left knee: No joint effusion is clearly appreciated. A left total knee prosthesis remains in place, with satisfactory alignment. No evidence of prosthesis loosening or metallic fracture. A loose intra-articular body seen posteriorly No fracture or dislocation is seen. If clinical concern persists, short-term follow-up imaging may be obtained to rule out a currently occult fracture. Reading Location: [address] Knee X-Ray 06/06/24 13:10 IMPRESSION: Right knee: No right knee joint effusion is noted. Mild degenerative changes are seen, with at least mild medial joint narrowing noted. No acute fracture or dislocation is seen. If clinical concern persists, short-term follow-up imaging may be obtained to rule out a currently occult fracture. Left knee: No joint effusion is clearly appreciated. A left total knee prosthesis remains in place, with satisfactory alignment. No evidence of prosthesis loosening or metallic fracture. A loose intra-articular body seen posteriorly No fracture or dislocation is seen. If clinical concern persists, short-term follow-up imaging may be obtained to rule out a currently occult fracture. Reading Location: [address] Shoulder X-Ray 06/06/24 13:15 IMPRESSION: AT THE EDGE OF IMAGING, PRIOR LOWER CERVICAL SURGERY IS SEEN. [id number] DEGENERATIVE CHANGES OF THE VISUALIZED SPINE ARE SEEN. [id number] LEFT ACROMIOCLAVICULAR JOINT DEGENERATIVE CHANGES ARE NOTED, WITH PARTIAL JOINT NARROWING NOTED. A small opacification is seen adjacent to the left humeral head greater tuberosity. While not definitively so, this may represent calcific tendinosis. Mild left glenohumeral joint degenerative changes are seen, without definite associated joint narrowing. No acute fracture or dislocation is seen. Reading Location: [id number] <Dr. Ish Boateng MD - Last Filed: 06/06/24 14:51> [facility] Narrative Medical decision making narrative: I have personally performed a face to face assessment of the patient and have reviewed the LOPEZ Note. I performed a substantive portion of the visit including all aspects of the following. My stratton findings include: History is remarkable for fall with injury to the right and left knee. Left knee is more tender. Patient is status post total knee arthroplasty by Dr. Miguelangel Snow. He had no head trauma. Denies headache. Denies nausea or vomiting. Denies cardiac or respiratory symptoms. Complains of pain left shoulder region as well as the right and left knee. There is no history of schizophrenia, pulmonary embolus, obstructive sleep apnea, COPD, rheumatoid arthritis, iron deficiency anemia. Exam is markable for bruising lateral proximal right leg and inferior the left patella. There is also soft tissue swelling or discoloration of left shoulder. Axillary, median, radial and ulnar function intact. He has pain outpatient over the clavicle AC joint proximal humerus. There is slight swelling of the right knee. Full extension. No significant laxity with varus valgus stress testing. Jane's test is negative. Able to extend against gravity. Right knee full active range of motion. No laxity varus valgus stress testing and negative Jane's test. There is bruising noted inferior lateral aspect of the knee/proximal leg. There is no bone tenderness over the fibular head. Medical Decision Making x-ray was obtained to evaluate for fracture versus contusion of the left shoulder, left and right knee. Other additions or changes: [None] Radiography Chest X-Ray - ED: Read by ED Physician (The left shoulder and both the images were independent review interpreted by me at 1329. The left shoulder reveals some minimal degenerative change of the AC joint. The x-ray is otherwise unremarkable. 4 view x-ray of the right knee reveals no acute abnormality. There is no fracture, subluxation) Diagnostic Testing: Clinical Impression(s) from Imaging Studies Knee X-Ray 06/06/24 13:00 IMPRESSION: Right knee: No right knee joint effusion is noted. Mild degenerative changes are seen, with at least mild medial joint narrowing noted. No acute fracture or dislocation is seen. If clinical concern persists, short-term follow-up imaging may be obtained to rule out a currently occult fracture. Left knee: No joint effusion is clearly appreciated. A left total knee prosthesis remains in place, with satisfactory alignment. No evidence of prosthesis loosening or metallic fracture. A loose intra-articular body seen posteriorly No fracture or dislocation is seen. If clinical concern persists, short-term follow-up imaging may be obtained to rule out a currently occult fracture. Reading Location: [address] Knee X-Ray 06/06/24 13:10 IMPRESSION: Right knee: No right knee joint effusion is noted. Mild degenerative changes are seen, with at least mild medial joint narrowing noted. No acute fracture or dislocation is seen. If clinical concern persists, short-term follow-up imaging may be obtained to rule out a currently occult fracture. Left knee: No joint effusion is clearly appreciated. A left total knee prosthesis remains in place, with satisfactory alignment. No evidence of prosthesis loosening or metallic fracture. A loose intra-articular body seen posteriorly No fracture or dislocation is seen. If clinical concern persists, short-term follow-up imaging may be obtained to rule out a currently occult fracture. Reading Location: [address] Shoulder X-Ray 06/06/24 13:15 IMPRESSION: AT THE EDGE OF IMAGING, PRIOR LOWER CERVICAL SURGERY IS SEEN. [id number] DEGENERATIVE CHANGES OF THE VISUALIZED SPINE ARE SEEN. [id number] LEFT ACROMIOCLAVICULAR JOINT DEGENERATIVE CHANGES ARE NOTED, WITH PARTIAL JOINT NARROWING NOTED. A small opacification is seen adjacent to the left humeral head greater tuberosity. While not definitively so, this may represent calcific tendinosis. Mild left glenohumeral joint degenerative changes are seen, without definite associated joint narrowing. No acute fracture or dislocation is seen. Reading Location: [address] Discharge Plan Triage Chief Complaint: Lower Extremity Injury ED Midlevel Provider: Chastity Perez ED Provider: Boateng,Ish Dx/Rx/DC Orders Clinical Impression: Left shoulder pain, Calcific tendinitis of left shoulder, Contusion of right knee, Contusion of left knee Instructions: ED Contusion, Lower Extremity, ED Shoulder Pain, Uncertain Cause Prescriptions: New hydrocodone-acetaminophen 5-325 mg tablet 1 tab PO Q4H PRN PRN (Reason: Pain) 3 Days Qty: 10 0RF No Action icosapent ethyl [Vascepa] 1 gram capsule 2 g PO BID baclofen 10 mg tablet 10 mg PO TID PRN (Reason: PAIN) olanzapine [Zyprexa] 10 mg tablet 10 mg PO QHS donepezil 10 mg tablet 10 mg PO DAILY lamotrigine [Lamictal] 200 mg tablet 200 mg PO DAILY Breztri Aerosphere 160-9-4.8 mcg/actuation HFA aerosol inhaler 2 inh inhalation BID Qty: 10.7 11RF budesonide 3 mg capsule,delayed,extend.release 9 mg PO QDAY losartan 50 mg tablet 50 mg PO BID mirtazapine 30 mg tablet 30 mg PO QHS fenofibrate 54 mg tablet 54 mg PO DAILY tramadol 50 mg tablet 50 mg PO BID ropinirole 0.5 MG tablet 0.5 mg PO QHS tamsulosin 0.4 MG capsule,extended release 24hr 0.4 mg PO QHS dicyclomine 20 mg tablet 20 mg PO TID potassium chloride 20 mEq tablet,ER particles/crystals 20 meq PO DAILY ondansetron 4 mg tablet,disintegrating 4 mg PO TID PRN (Reason: NAUSEA ) mesalamine 0.375 gram capsule,extended release 24hr 1.5 g PO BID ferrous sulfate 325 mg (65 mg iron) tablet 325 mg PO DAILY furosemide [Lasix] 20 mg tablet 20 mg PO DAILY Allergy Relief (loratadine) 10 mg capsule 10 mg PO DAILY prednisone 20 mg tablet 40 mg PO DAILY Qty: 10 0RF acetaminophen 500 mg Tablet 1,000 mg PO Q8 PRN (Reason: pain) trazodone 150 mg tablet 150 mg PO QHS albuterol sulfate 2.5 mg /3 mL (0.083 %) Solution For Nebulization 2.5 mg inhalation Q2H PRN PRN (Reason: Dyspnea, wheezing) Qty: 0 0RF Glucerna 1.2 Morgan 0.06-1.2 gram-kcal/mL Liquid 120 ml PO 4X/DAY Qty: 0 0RF menthol-zinc oxide [Calmoseptine] 0.44-20.6 % Ointment 1 applic topical 4X/DAY Qty: 0 0RF Protocol: *Topical Application Instructions APPLICATION INSTRUCTIONS: apply to affected region atorvastatin 40 mg tablet 40 mg PO QHS Qty: 90 3RF Eliquis 5 mg tablet 5 mg PO BID Qty: 60 2RF Patient Comments: STOP 2 DAYS PRIOR TO OR PER ALEA FROM OFFICE famotidine 20 mg tablet 20 mg PO BID 90 Days Qty: 180 1RF clopidogrel 75 mg tablet 75 mg PO DAILY Qty: 30 11RF Patient Comments: STOP 7 DAYS PRIOR TO OR PER ALEA FROM OFFICE Biofreeze (menthol) 10 % cream See Rx Instructions topical .QID PRN (Reason: pain) Qty: 85 0RF Rx Instructions: as directed topically QID PRN; Primary Care Provider: Eliel Mosley Referrals: Miguelangel Cohn DO [Med Staff - Active Staff] - Eliel Mosley, [employer] [Primary Care Provider] - Activity Restrictions/Additional Instructions: Follow-up with your orthopedic doctor. Return for worsening symptoms. Ice your knee and keep it elevated. Print Language: Mongolian Disposition Disposition: Home, Self Care Discharge Date/Time: 06/06/24 14:12
--- NOTE | 2024-06-06 13:10 | RAD_ITS ---
PROCEDURE: KNEE 4 OR MORE VIEWS 06/06/2024 REASON FOR EXAM: PAIN TECHNIQUE: Four view right knee series and four view left knee series (combined dictation). COMPARISON: Left knee series of 05/19/2024. RAD/Knee 4 or More Views IMPRESSION: Right knee: No right knee joint effusion is noted. Mild degenerative changes are seen, with at least mild medial joint narrowing n oted. No acute fracture or dislocation is seen. If clinical concern persists, short-term follow-up imaging may be obtained to r ule out a currently occult fracture. Left knee: No joint effusion is clearly appreciated. A left total knee prosthesis remains in place, with satisfactory alignment. No evidence of prosthesis loosening or metallic fracture. A loose intra-articular body seen posteriorly No fracture or dislocation is seen. If clinical concern persists, short-term follow-up imaging may be obtained to r ule out a currently occult fracture. Reading Location: [id number]
--- NOTE | 2024-06-06 13:15 | RAD_ITS ---
PROCEDURE: SHOULDER MIN 2 VIEWS 06/06/2024 REASON FOR EXAM: PAIN TECHNIQUE: Four view left shoulder COMPARISON: None. RAD/Shoulder min 2 Views IMPRESSION: AT THE EDGE OF IMAGING, PRIOR LOWER CERVICAL SURGERY IS SEEN. [id number] DEGENERATIVE CHANGES OF THE VISUALIZED SPINE ARE SEEN. [id number] LEFT ACROMIOCLAVICULAR JOINT DEGENERATIVE CHANGES ARE NOTED, W ITH PARTIAL JOINT NARROWING NOTED. A small opacification is seen adjacent to the left humeral head greater tuberos ity. While not definitively so, this may represent calcific tendinosis. Mild left glenohumeral joint degenerative changes are seen, without definite as sociated joint narrowing. No acute fracture or dislocation is seen. Reading Location: [id number]
[2024-06-06] MEDS: HYDROcodone Bitartrate/Apap 5/325 Tablet PO (13:29)
[2024-06-06 14:10] VITALS: BP 129/78; PULSE 82; RESP 16; TEMP 36.6; O2SAT 100
== END 2024-06-06 14:12 | disposition home or self-care (01) ==
PROVIDERS: Emergency Provider Emergency Medicine; PCP Nurse Practitioner Family; Visit Provider Emergency Medicine
DX: M75.32 Calcific tendinitis of left shoulder (principal); M06.9 Rheumatoid arthritis, unspecified; I11.0 Hypertensive heart disease with heart failure; I50.9 Heart failure, unspecified; F03.94 Unspecified dementia, unspecified severity, with anxiety; F03.92 Unspecified dementia, unspecified severity, with psychotic disturbance; F03.93 Unspecified dementia, unspecified severity, with mood disturbance; J44.9 Chronic obstructive pulmonary disease, unspecified; E11.9 Type 2 diabetes mellitus without complications; S80.01XA Contusion of right knee, initial encounter; S80.02XA Contusion of left knee, initial encounter; W19.XXXA Unspecified fall, initial encounter; K21.9 Gastro-esophageal reflux disease without esophagitis; D50.9 Iron deficiency anemia, unspecified; I25.2 Old myocardial infarction; I25.10 Atherosclerotic heart disease of native coronary artery without angina pectoris; K58.9 Irritable bowel syndrome, unspecified; E78.00 Pure hypercholesterolemia, unspecified; N40.0 Benign prostatic hyperplasia without lower urinary tract symptoms; M17.0 Bilateral primary osteoarthritis of knee; M19.011 Primary osteoarthritis, right shoulder; G25.81 Restless legs syndrome; G47.33 Obstructive sleep apnea (adult) (pediatric); Z95.5 Presence of coronary angioplasty implant and graft; Z88.0 Allergy status to penicillin; Z79.02 Long term (current) use of antithrombotics/antiplatelets; Z79.01 Long term (current) use of anticoagulants; Z96.652 Presence of left artificial knee joint; Z96.611 Presence of right artificial shoulder joint; Z86.718 Personal history of other venous thrombosis and embolism; Z86.711 Personal history of pulmonary embolism; Z79.899 Other long term (current) drug therapy; Z87.891 Personal history of nicotine dependence
CPT/HCPCS: 73030; 73564; 99282

== ENCOUNTER → 2024-07-08 | Outpatient (CLI) | payer MEDICARE, MEDICAID, SELFPAY ==
[2024-05-27 11:10] VITALS: BMI 21.8
[2024-07-08 12:43] LABS: Absolute Lymphocyte Count 2.43 X10^3/uL (0.83-4.51); Absolute Neutrophil Count 3.7 X10^3/uL (2.0-7.7); Basophil# 0.04 X10^3/uL; Basophil% 0.6 % (0-1); Eosinophil# 0.13 X10^3/uL; Eosinophils% 1.9 % (0-5); Hematocrit 32.5 % (40-54); Hemoglobin 10.2 g/dL (13.0-16.5); Lymphocyte # 2.43 X10^3/ul (0.83-4.51); Mean Corp Hgb Conc 31.4 g/dL (32-36); Mean Corpuscular Hgb 26.4 pg (27.0-32.0); Mean Platelet Vol. 9.9 fl (6.2-12.0); Monocyte% 8.6 % (0-10); NRBC Flagged by Analyzer 0 % (0-5); Neutrophil # 3.72 X10^3/uL (2.7-7.7); Neutrophil % 53.6 % (47-70); Platelet Count 257 K/mm3 (150-450); RBC Distribution Width CV 14.9 % (11.6-14.6); RBC Distribution Width SD 45.5 fl (35.1-43.9); Red Blood Count 3.87 M/mm3 (4.6-6.2); White Blood Count 6.9 K/mm3 (4.4-11.0)
[2024-07-08 13:36] LABS: ALB/GLOB Ratio 1.7 RATIO (0.9-2.4); AST(SGOT) 15 U/L (<=37); Alanine Aminotransfer ALT/SGPT 8 U/L (<=46); Albumin, Serum 4.1 g/dL (3.4-4.8); Alkaline Phosphatase 108 U/L (40-129); Anion Gap 13 (5-15); BUN 11 mg/dL (4-19); Calcium,Total 9.3 mg/dL (7.6-11.0); Carbon Dioxide 24.5 mmol/L (21.0-32.0); Chloride 104 mmol/L (98-108); EST Glomerular Filtration Rate 70 (>60); Globulin 2.4 g/dL (2.2-4.2); Glucose 103 mg/dL (70-99); Potassium 3.2 mmol/L (3.3-5.1); Protein, Total 6.5 g/dL (5.9-8.4); Sodium Level 141 mmol/L (133-145); Thyroid Stim Hormone (TSH) 0.766 uIU/mL (0.300-4.200); Vitamin B12 492 pg/mL (180-914); Vitamin D,25 Hydroxy 14.5 ng/mL (30-100)
== END | disposition home or self-care (01) ==
LOC: VSLAB 10:11
PROVIDERS: PCP Nurse Practitioner Family
DX: E55.9 Vitamin D deficiency, unspecified (principal); R53.83 Other fatigue
CPT/HCPCS: 36415; 80053; 82306; 82607; 84443; 85025

== ENCOUNTER → 2024-07-16 | Outpatient (CLI) | payer MEDICARE, MEDICAID, SELFPAY ==
[2024-05-27 11:10] VITALS: BMI 21.8
--- NOTE | 2024-07-16 10:44 | MRI_ITS ---
PROCEDURE: BRAIN W/WO CONTRAST 07/16/2024 REASON FOR EXAM: AMNESIA TECHNIQUE: Brain MRI without and with intravenous contrast . Multiplanar and multisequence images were obtained. CONTRAST: 15 cc IV Clariscan FINDINGS: Brain: No suspicious intracranial mass. Small right frontal DVA. Otherwise, no abnormal parenchymal or leptomeningeal enhancement. Mild generalized volume loss. No susceptibility artifact on the SWI images, to suggest hemorrhage. Moderate cerebral atrophy and chronic periventricular white matter disease. Diffusion weighted images: No evidence of restricted diffusion, to suggest an acute infarct. Ventricles: Consistent with the overall degree of cerebral atrophy. Major Intracranial Vessels: Normal-appearing intracranial flow voids. Sinuses: Mild paranasal sinus mucosal thickening. Mastoids: Mastoid air cells are clear. Craniocervical junction is within normal limits. No suspicious marrow replacement process. Orbits are unremarkable. Extracranial soft tissues are within normal limits. MRI/Brain W/WO Contrast IMPRESSION: 1. No acute intracranial abnormality. 2. Moderate chronic microvascular ischemia and involutional changes. 3. No suspicious intracranial mass, abnormal parenchymal or leptomeningeal enha ncement. Reading [facility]
== END | disposition home or self-care (01) ==
LOC: MRI 10:39
PROVIDERS: PCP Nurse Practitioner Family
DX: R41.3 Other amnesia (principal)
CPT/HCPCS: 70553; A9575

== ENCOUNTER → 2024-08-16 | Outpatient (CLI) | payer MEDICARE, MEDICAID, SELFPAY ==
[2024-05-27 11:10] VITALS: BMI 21.8
[2024-08-16 18:33] LABS: Amphetamine Urine NEGATIVE (<1000 ng/mL); Barbiturate Urine NEGATIVE (< 200 ng/mL); Benzodiazepine Urine NEGATIVE (< 200 ng/mL); Buprenorphine Urine NEGATIVE (< 200 ng/mL); Cocaine Urine NEGATIVE (< 300 ng/mL); Fentanyl, Urine NEGATIVE; Methadone Urine NEGATIVE (< 300 ng/mL); Opiates Urine NEGATIVE (< 300 ng/mL); Oxycodone, Urine NEGATIVE (< 100 ng/mL); PCP Urine NEGATIVE (< 25 ng/mL); THC Urine PRESUMPTIVE POSITIVE (< 50 ng/mL)
== END | disposition home or self-care (01) ==
LOC: LAB 16:21
PROVIDERS: PCP Nurse Practitioner Family; Referring Provider Anesthesiology Pain Medicine; Visit Provider Anesthesiology Pain Medicine
DX: F11.20 Opioid dependence, uncomplicated (principal)
CPT/HCPCS: 80307

== ENCOUNTER → 2024-09-13 | Outpatient (CLI) | payer MEDICARE, MEDICAID, SELFPAY ==
[2024-05-27 11:10] VITALS: BMI 21.8
== END | disposition home or self-care (01) ==
LOC: LAB 09:59
PROVIDERS: PCP Nurse Practitioner Family; Referring Provider Anesthesiology Pain Medicine; Visit Provider Anesthesiology Pain Medicine
DX: F11.20 Opioid dependence, uncomplicated (principal)

== ENCOUNTER 2024-09-15 15:34 | Emergency (ER) | payer MEDICARE, MEDICAID, SELFPAY ==
[2024-05-27 11:10] VITALS: BMI 21.8
[2024-09-15 15:35] VITALS: BP 143/94; PULSE 102; RESP 18; TEMP 36.5; O2SAT 99; BMI 23.1
--- NOTE | 2024-09-15 15:51 | EX.ED.DYSGE1 ---
HPI History of Present Illness Chief Complaint: Diarrhea Detail of Chief Complaint: Diarrhea with generalized cramping abdominal pain Informant: patient and spouse/S.O. Onset/Context/Timing Onset: Yesterday (1800) Context: Sudden Onset Timing: Intermittent Quality: Loose watery stool every 30 to 60 minutes Location: GI Current Severity: Mild Maximum Severity: Severe Worsened by: Nothing Relieved by: Nothing Associated Symptoms Associated Symptoms: Thirst, dry mouth and lightheadedness with standing Narrative Narrative: Patient is a 74-year-old male. He has history of irritable bowel syndrome, iron deficiency anemia, fatigue, rheumatoid arthritis, hyperlipidemia, osteoarthritis, pulmonary embolus, schizophrenia, obstructive sleep apnea and COPD. He presents because of diarrhea every 30 to 60 minutes since last evening starting at 1800. He has not been on an antibiotic in the past month. He was discharged from [facility] 1.5 months ago. He was there for rehabilitation due to difficulty walking. He denies objective fever. He denies chills. He denies weight gain or weight loss. He has had no ill contacts. He states he has water coming out of his rectum. He has not noted any blood. He has noted some mucus. He has never had anything this bad. Patient denies headache, visual, ocular auditory symptoms. Patient denies cardiac or respiratory symptoms. Patient does report darker urine. He is still urinating. Prior similar symptoms: Yes Recent Illness/Hospitalization: No PFSH [facility], LATER [facility] Medical History History of steroid therapy Diabetes Walker as ambulation aid History of renal disease Anemia Excessive bleeding Injury of head and neck History of ulceration Gastric reflux Sleep apnea History of pain when walking Cardiology follow-up encounter History of irregular heartbeat Asthma DVT (deep venous thrombosis) Frequent falls Multiple contusions Head injury Adult failure to thrive Schizophrenia Primary osteoarthritis, right shoulder Severe malnutrition Adult failure to thrive Localized osteoarthritis of right knee Pulmonary embolism Ventral hernia, recurrent Rheumatoid arthritis Chronic pain Kidney disease Congestive heart failure (CHF) Complete rotator cuff tear Marijuana use Shoulder impingement SLAP tear of shoulder Acromioclavicular joint arthritis Essential hypertension (08/02/20) Chronic obstructive lung disease (08/02/20) Malaise and fatigue (08/02/20) Low back pain (03/01/11) Displacement of lumbar intervertebral disc without myelopathy (03/01/11) Brachial neuritis (05/31/11) Wears glasses Dementia Alcohol use Ambulates with cane Arthritis Prostate disease High cholesterol Back pain History of IBS Emphysema, unspecified History of stress test History of echocardiogram Osteoarthritis of left knee Bipolar disorder Diabetes GERD (gastroesophageal reflux disease) Former smoker COPD (chronic obstructive pulmonary disease) Myocardial infarct Hypertension Migraines Cervical spondylosis Cervical radiculitis Partial tear of right rotator cuff Essential (primary) hypertension Smoking greater than 40 pack years Dementia PVCs (premature ventricular contractions) Lung nodule < 6cm on CT Cannabis dependence DDD (degenerative disc disease) BPH (benign prostatic hyperplasia) Anxiety Depression Atherosclerotic heart disease of [place] coronary artery without angina pectoris Hyperlipidemia Trigger finger MONIQUE (obstructive sleep apnea) Stage 2 moderate COPD by GOLD classification Peptic ulcer disease Restless leg syndrome Schizophrenia Asthma History of pulmonary embolism Home Medications ?Medication ?Instructions ?Recorded ?Last Taken ?Type ropinirole 0.5 mg tablet 0.5 mg PO QHS RESTLESS LEGS 04/23/16 04/12/24 History budesonide 160 mcg-glycopyr 9 2 inh inhalation BID COPD #10.7 01/28/23 04/13/24 Rx mcg-formot 4.8 mcg/actuation HFA grams inhaler (Breztri Aerosphere) potassium chloride 20 mEq 20 meq PO DAILY SUPPLEMENT 04/15/23 04/12/24 History tablet,extended release(part/cryst) ferrous sulfate 325 mg (65 mg 325 mg PO DAILY SUPPLEMENT 09/02/23 04/12/24 History iron) tablet furosemide 20 mg tablet (Lasix) 20 mg PO DAILY COPD 09/02/23 04/12/24 History losartan 50 mg tablet 50 mg PO BID BP 11/19/23 04/13/24 History apixaban 5 mg tablet (Eliquis) 5 mg PO BID BLOOD THINNER #60 tabs 12/30/23 04/11/24 Rx clopidogrel 75 mg tablet 75 mg PO DAILY BLOOD THINNER #30 01/15/24 04/06/24 Rx tabs acetaminophen 500 mg tablet 1,000 mg PO Q8 PRN pain 03/06/24 Unknown History trazodone 150 mg tablet 150 mg PO QHS SLEEP 03/06/24 04/12/24 History atorvastatin 40 mg tablet 40 mg PO QHS CHOLESTEROL #90 tabs 06/30/24 Unknown Rx cholecalciferol (vitamin D3) 1,250 1,250 mcg PO QWEEK 09/15/24 Unknown History mcg (50,000 unit) capsule desvenlafaxine succinate 100 mg PO 09/15/24 Unknown History tablet,extended release 24 hr dicyclomine 10 mg capsule 20 mg (2 x 10 mg) PO TIDAC #20 09/15/24 Unknown Rx CAPSULES erythromycin 5 mg/gram (0.5 %) eye 1 applic ophthalmic (eye) QHS 09/15/24 Unknown History ointment fexofenadine 180 mg tablet 180 mg PO DAILY 09/15/24 Unknown History hydrocodone-acetaminophen 5-325mg 1 tab PO BID 09/15/24 Unknown History 5mg-325mg olanzapine 5 mg tablet 5 mg PO QHS 09/15/24 Unknown History Allergy/AdvReac Type Severity Reaction Status Date / Time Quinolones Allergy Unknown unknown Verified 07/07/24 11:22 aspirin Allergy Itching, Verified 07/07/24 11:22 Hives levofloxacin (From Levaquin) Allergy Hives, Verified 07/07/24 11:22 Itching Penicillins Allergy Hives, Verified 07/07/24 11:22 Itching Family History Mother CAD (coronary artery disease) Sister Diabetes Father Alcoholism Surgical History History of cardiac catheterization Hx of total shoulder replacement History of cholecystectomy History of coronary artery stent placement History of right shoulder replacement Hx of colonoscopy S/P right rotator cuff repair Hx of repair of right rotator cuff (06/04/22) H/O left knee surgery History of laparoscopic cholecystectomy History of appendectomy H/O cervical spine surgery H/O ventral hernia repair History of left heart catheterization (04/2016) History of coronary artery stent placement (10/16/18) Social History household members: none housing: house current occupational status: disabled Smoking Status: Former smoker quit date: 02/14/15 how long ago did patient quit smokin years ago second hand exposure: Yes alcohol intake: former details: Quit 9 years ago substance use type: marijuana caffeine: Yes Type: coffee what type of physical activity do you participate in: none seatbelt use: always do you feel safe at home: Yes ROS ROS ED Constitutional Constitutional ED: Reports subjective; Denies chills, sweats or weight loss Eyes Eyes: Denies blurry vision or change in vision ENT ENT ED: Denies rhinorrhea or sore throat Cardiovascular Cardiovascular: Denies chest pain, orthopnea, palpitations or paroxysmal nocturnal dyspnea Respiratory/Chest Respiratory/Chest: Denies cough, dyspnea, dyspnea on exertion, orthopnea or paroxysmal nocturnal dyspnea Gastrointestinal Gastrointestinal: Reports abdominal pain, diarrhea and other Details: Detailed HPI narrative ; Denies constipation, melena, nausea or vomiting Genitourinary Genitourinary ED: Denies dysuria, hematuria or urinary frequency Musculoskeletal Musculoskeletal: Denies arthralgias, back pain or myalgias Integumentary Denies rash Neurologic Neurologic: Reports weakness Psychiatric Psychiatric: Denies anxiety or depression Hematologic/Lymphatic Hematologic/Lymphatic: Reports systems reviewed and no addt'l complaints, except as documented EXAM Physical Exam Const Vital Signs: 09/15/24 15:35 09/15/24 16:17 09/15/24 17:30 Temperature 97.7 F L Temperature Source Oral Pulse Rate 102 H Pulse Rate [Lying] 93 Pulse Rate [Sitting (for 1 minute prior to obtaining)] 99 Pulse Rate [Standing (for 1 minute prior to obtaining)] 104 H Respiratory Rate 18 Blood Pressure 143/94 H 136/77 H Blood Pressure [Lying] 135/72 H Blood Pressure [Sitting (for 1 minute prior to obtaining)] 128/93 H Blood Pressure [Standing (for 1 minute prior to obtaining)] 137/94 H Blood Pressure Mean 110 96 Blood Pressure Mean [Lying] 93 Blood Pressure Mean [Sitting (for 1 minute prior to obtaining)] 104 Blood Pressure Mean [Standing (for 1 minute prior to obtaining)] 108 Pulse Ox 99 100 Oxygen Delivery Method Room Air 09/15/24 19:00 Temperature Temperature Source Pulse Rate Pulse Rate [Lying] Pulse Rate [Sitting (for 1 minute prior to obtaining)] Pulse Rate [Standing (for 1 minute prior to obtaining)] Respiratory Rate Blood Pressure 150/80 H Blood Pressure [Lying] Blood Pressure [Sitting (for 1 minute prior to obtaining)] Blood Pressure [Standing (for 1 minute prior to obtaining)] Blood Pressure Mean 99 Blood Pressure Mean [Lying] Blood Pressure Mean [Sitting (for 1 minute prior to obtaining)] Blood Pressure Mean [Standing (for 1 minute prior to obtaining)] Pulse Ox 98 Oxygen Delivery Method Orthostatic vital signs are negative. Positive well nourished and well developed Constitutional Narrative: Patient does not appear well. General Appearance ED: well developed; Negative for cyanotic, diaphoretic or pallor HEENT Reports dry mucous membranes HEENT Narrative: Head is atraumatic and normocephalic. Ears are normal. Nares patent. Posterior pharynx is normal. Mouth ED: Yes dry mucous membranes Mouth: dry mucous membranes Eyes PERRL and EOMs intact bilaterally General Eye ED: Negative for pale conjunctiva or scleral icterus Neck no lymphadenopathy, supple and no JVD Resp clear to auscultation bilaterally Cardio regular rate, regular rhythm, S1 normal heart sound, S2 normal heart sound and no murmurs GI no masses; Negative for normal to inspection, nondistended, normoactive bowel sounds, non-tender, non-distended or hepatosplenomegaly GI Narrative: Abdomen slightly distended. It is tympanitic. Bowel sounds are diminished. There is no evidence of umbilical or inguinal hernia. Inspection: abdominal distention Auscultation: hypoactive bowel sounds Palpation: soft and tender other (Diffuse) Extremity normal to inspection General Extremety ED: Negative for edema or tenderness General Extremity: Negative for edema Neuro oriented x3 and CN's II-XII intact bilaterally Sensorium / Orientation: alert Psych mental status grossly normal Skin no rashes or lesions noted, no wounds and No skin turgor normal General Skin Exam: Negative for jaundice or pallor MDM MDM MDM Narrative Medical decision making narrative: Patient with significant diarrhea and reported darker urine and symptoms of dehydration. Since he reports lightheadedness will have nurse perform orthostatic vitals. 1 L of normal saline was ordered. Basic metabolic panel was obtained to assess renal function, CO2 anion gap and electrolytes and specifically evaluate for hypokalemia. CBC to assess white count differential. Patient's cramping abdominal pain was treated with Bentyl. Review of prior records reveals that he has been seen several times orthopedics with respect to knee pain, total knee arthroplasty. He was seen June 06 in the emergency room for knee pain. He was seen May 19 in the ER for knee pain by a different provider. History & Record Review Additional record(s) reviewed:: Prior inpatient record (He was admitted April of this year for hypoxia due to COPD exacerbation secondary to RSV infection, acute on chronic anemia.), Prior outpatient record (MDM narrative), Prior ED visit (MDM narrative) and No prior records Lab Data Attestation: I reviewed the patient's lab results. Lab results narrative: CBC is unremarkable. Basic metabolic panel reveals an elevated BUN/creatinine of 23 and 1.21 with an estimated GFR of 19-1. CO2 is low at 17.4. Prior CO2 levels were normal. Anion gap is normal. BUN in June was 11 with a creatinine of 1.11. This would indicate mild renal insufficiency due to his diarrhea. Labs: Laboratory Results - last 24 hr 09/15/24 15:22 WBC 9.2 RBC 4.92 Hgb 12.9 L Hct 40.3 MCV 81.9 MCH 26.2 L MCHC 32.0 RDW Std Deviation 46.5 H RDW Coeff of Tad 15.6 H Plt Count 278 MPV 9.9 Immature Gran % (Auto) 0.400 Neut % (Auto) 49.4 Lymph % (Auto) 37.3 [place] % (Auto) 9.8 Eos % (Auto) 2.9 Baso % (Auto) 0.2 Absolute Neuts (auto) 4.6 Absolute Lymphs (auto) 3.44 Nucleated RBC % 0 Sodium 144 Potassium 3.4 Chloride 113 H Carbon Dioxide 17.4 L Anion Gap 14 BUN 23 H Creatinine 1.21 H Estim Creat Clear Calc 56.79 Est GFR (MDRD) Non-Af 62 BUN/Creatinine Ratio 18.8 Glucose 109 H Calcium 9.5 Total Bilirubin 0.54 AST 17 ALT 20 Alkaline Phosphatase 132 H Total Protein 7.3 Albumin 4.6 Globulin 2.8 Albumin/Globulin Ratio 1.7 Treatment and Re-Evaluation :: Patient was reassessed at 1705. He has no urge to urinate and spite of 1 L of normal saline. Second liter of normal saline was ordered. Comments:: Patient did urinate after second liter. Will discharge home with appropriate home-going instructions. Discharge Plan Triage Chief Complaint: Diarrhea ED Provider: Ish Boateng Dx/Rx/DC Orders Clinical Impression: Diarrhea, Acute dehydration, Elevated blood pressure reading with diagnosis of hypertension, Metabolic acidosis Instructions: ED Diarrhea, Unknown Cause Prescriptions: New dicyclomine 10 mg capsule 20 mg PO TIDAC Qty: 20 0RF No Action Breztri Aerosphere 160-9-4.8 mcg/actuation HFA aerosol inhaler 2 inh inhalation BID Qty: 10.7 11RF losartan 50 mg tablet 50 mg PO BID ropinirole 0.5 MG tablet 0.5 mg PO QHS potassium chloride 20 mEq tablet,ER particles/crystals 20 meq PO DAILY ferrous sulfate 325 mg (65 mg iron) tablet 325 mg PO DAILY furosemide [Lasix] 20 mg tablet 20 mg PO DAILY acetaminophen 500 mg Tablet 1,000 mg PO Q8 PRN (Reason: pain) trazodone 150 mg tablet 150 mg PO QHS hydrocodone-acetaminophen 5-325 mg tablet 1 tab PO BID olanzapine 5 mg tablet 5 mg PO QHS fexofenadine 180 mg tablet 180 mg PO DAILY erythromycin 5 mg/gram (0.5 %) ointment 1 applic ophthalmic (eye) QHS cholecalciferol (vitamin D3) 1,250 mcg (50,000 unit) capsule 1,250 mcg PO QWEEK desvenlafaxine succinate 100 mg tablet extended release 24 hr PO Eliquis 5 mg tablet 5 mg PO BID Qty: 60 2RF Patient Comments: STOP 2 DAYS PRIOR TO OR PER ALEA FROM OFFICE clopidogrel 75 mg tablet 75 mg PO DAILY Qty: 30 11RF Patient Comments: STOP 7 DAYS PRIOR TO OR PER ALEA FROM OFFICE atorvastatin 40 mg tablet 40 mg PO QHS Qty: 90 3RF Primary Care Provider: Eliel Mosley Referrals: Eliel Mosley, LIAISON ENGINEER-C [Primary Care Provider] - 1-2 Days if not improving Activity Restrictions/Additional Instructions: 1. Take dicyclomine for your cramping pain. 2. Take Imodium with each loose stool up to 6 in 24 hours 3. You need to increase your fluid intake Print Language: Armenian Disposition Disposition: Home, Self Care
[2024-09-15 16:14] LABS: Hematocrit 40.3 % (40-54); Hemoglobin 12.9 g/dL (13.0-16.5); Immature Granulocytes Count 0.040 X10^3/uL (0.0-0.0); Mean Corp Hgb Conc 32.0 g/dL (32-36); Mean Corpuscular Volume 81.9 fL (80-94); Mean Platelet Vol. 9.9 fl (6.2-12.0); NRBC Flagged by Analyzer 0 % (0-5); Platelet Count 278 K/mm3 (150-450); RBC Distribution Width CV 15.6 % (11.6-14.6); RBC Distribution Width SD 46.5 fl (35.1-43.9); Red Blood Count 4.92 M/mm3 (4.6-6.2); White Blood Count 9.2 K/mm3 (4.4-11.0)
[2024-09-15] MEDS: 0.9% Normal Saline (1000mL) 1,000 ML 1000 ML IV ×2 (16:16→17:16)
[2024-09-15 16:17] VITALS: BP 128/93; BP 135/72; BP 137/94; PULSE 104; PULSE 93; PULSE 99
[2024-09-15 16:45] LABS: AST(SGOT) 17 U/L (<=37); Alanine Aminotransfer ALT/SGPT 20 U/L (<=46); Albumin, Serum 4.6 g/dL (3.4-4.8); Alkaline Phosphatase 132 U/L (40-129); Anion Gap 14 (5-15); BUN 23 mg/dL (4-19); BUN/Creat Ratio 18.8 RATIO (10-20); Calcium,Total 9.5 mg/dL (7.6-11.0); Carbon Dioxide 17.4 mmol/L (21.0-32.0); Chloride 113 mmol/L (98-108); Estimated Creatinine Clearance 56.79 ml/min (50-250); Globulin 2.8 g/dL (2.2-4.2); Glucose 109 mg/dL (70-99); Potassium 3.4 mmol/L (3.3-5.1)
[2024-09-15 17:30] VITALS: BP 136/77; O2SAT 100
[2024-09-15 19:00] VITALS: BP 150/80; O2SAT 98
[2024-09-15 20:31] VITALS: BP 139/88; PULSE 95; RESP 18; TEMP 36.3; O2SAT 97
== END 2024-09-15 20:34 | disposition home or self-care (01) ==
PROVIDERS: Emergency Provider Emergency Medicine; PCP Nurse Practitioner Family; Visit Provider Emergency Medicine
DX: E86.0 Dehydration (principal); M06.9 Rheumatoid arthritis, unspecified; F20.9 Schizophrenia, unspecified; F03.93 Unspecified dementia, unspecified severity, with mood disturbance; J44.9 Chronic obstructive pulmonary disease, unspecified; E11.9 Type 2 diabetes mellitus without complications; F41.9 Anxiety disorder, unspecified; E87.20 Acidosis, unspecified; R19.7 Diarrhea, unspecified; K58.9 Irritable bowel syndrome, unspecified; I10 Essential (primary) hypertension; D50.9 Iron deficiency anemia, unspecified; E78.5 Hyperlipidemia, unspecified; K21.9 Gastro-esophageal reflux disease without esophagitis; N40.0 Benign prostatic hyperplasia without lower urinary tract symptoms; I25.2 Old myocardial infarction; G25.81 Restless legs syndrome; I25.10 Atherosclerotic heart disease of native coronary artery without angina pectoris; G47.33 Obstructive sleep apnea (adult) (pediatric); F32.A Depression, unspecified; M17.0 Bilateral primary osteoarthritis of knee; Z87.11 Personal history of peptic ulcer disease; Z87.19 Personal history of other diseases of the digestive system; Z86.711 Personal history of pulmonary embolism; Z86.718 Personal history of other venous thrombosis and embolism; Z79.01 Long term (current) use of anticoagulants; Z79.02 Long term (current) use of antithrombotics/antiplatelets; Z79.899 Other long term (current) drug therapy; Z90.49 Acquired absence of other specified parts of digestive tract; Z95.5 Presence of coronary angioplasty implant and graft; Z87.891 Personal history of nicotine dependence; Z79.51 Long term (current) use of inhaled steroids; Z96.651 Presence of right artificial knee joint
CPT/HCPCS: 80053; 85025; 96360; 96361; 99285

== ENCOUNTER → 2024-10-23 | Outpatient (CLI) | payer MEDICARE, MEDICAID, SELFPAY ==
[2024-05-27 11:10] VITALS: BMI 21.8
--- NOTE | 2024-10-23 07:52 | CT_ITS ---
PROCEDURE: LOW DOSE CT LUNG SCREENING 10/23/2024 REASON FOR EXAM: HISTORY OF SMOKING >40PACK YEARS, QUIT 2020 TECHNIQUE: LOW DOSE CT LUNG SCREENING Coronal and Sagittal reconstruction series were provided. One or more dose reduction techniques were used (e.g., Automated exposure control, adjustment of the mA and/or kV according to patient size, use of iterative reconstruction technique). REFERENCE LINK: [facility] Lung-RADS RADIATION DOSE SUMMARY: CTDlvol: 3.02 mGy DLP: 97.04 mGycm COMPARISON: 03/06/2024 FINDINGS: PULMONARY NODULES: (Only nodules >3mm are reported) Lung windows show underlying emphysema with stable fibrotic scarring in both lung hayes and chronic interstitial changes in both lung hayes with stable honeycombing in the periphery of both upper lung hayes. There is no organized infiltrate, or effusion. No suspicious noncalcified mass or nodule. There is evidence of chronic bronchitis with diffuse peribronchial thickening in both lung hayes. Limited soft tissue windows show a normal-appearing thyroid. No suspicious axillary, mediastinal or perihilar adenopathy. There are calcified coronary vessels. The thoracic aorta tapers normally. Limited cuts through the upper abdomen show a stable hiatal hernia. Bony structures show degenerative change CT/Low Dose CT Lung Screening IMPRESSION: Underlying emphysema with chronic interstitial changes and chronic bronchitis b ut no superimposed process or suspicious noncalcified mass or nodule Coronary artery calcification (CAC) is is present Lung-RADS Category: 2 BENIGN (BASED ON IMAGING FEATURES OR INDOLENT BEHAVIOR). RECOMMEND 12-MONTH SCREENING LDCT. Other Significant Findings: Reading Location: [id number]
== END | disposition home or self-care (01) ==
LOC: CT 07:48
PROVIDERS: PCP Nurse Practitioner Family; Referring Provider Nurse Practitioner Family; Visit Provider Nurse Practitioner Family
DX: F17.210 Nicotine dependence, cigarettes, uncomplicated (principal)
CPT/HCPCS: 71271

== ENCOUNTER → 2024-10-29 | Outpatient (CLI) | payer MEDICARE, MEDICAID, SELFPAY ==
[2024-05-27 11:10] VITALS: BMI 21.8
--- NOTE | 2024-10-29 10:51 | RAD_ITS ---
PROCEDURE: CHEST PA AND LATERAL 10/29/2024 REASON FOR EXAM: COPD W (ACUTE) EXACERBATION TECHNIQUE: CHEST PA AND LATERAL COMPARISON: Chest x-ray study dated 04/16/[address] scan of the chest dated 10/23/2024 FINDINGS: Heart size and configuration are within normal limits. Pulmonary vasculature and hilar structures are unremarkable. Trachea is midline. Arteriosclerotic vascular disease of the aorta is noted. Lungs are hyperinflated with flattening of the hemidiaphragms compatible with COPD. This is a stable finding. There is peribronchial cuffing identified bilaterally compatible with bronchitis. Subtle, stable, prominent interstitial markings are noted in both lungs. There is no atelectasis, consolidation, effusion, pneumothoraces or pneumonic infiltrate. Diffuse osteopenia of the bony thorax is noted. There is increased kyphotic curvature of the thoracic spine. Degenerative changes of the thoracic spine are noted. A stable hiatal hernia is noted. Radiopaque hardware is projected over the lower cervical spine. A radiopaque right shoulder device is noted. The visualized hardware appears to be intact without evidence of fracture or loosening. RAD/Chest PA and Lateral IMPRESSION: Chest x-ray findings compatible with COPD and bronchitis. Reading Location: [id number]
== END | disposition home or self-care (01) ==
LOC: RAD 10:48
PROVIDERS: PCP Nurse Practitioner Family
DX: J44.1 Chronic obstructive pulmonary disease with (acute) exacerbation (principal)
CPT/HCPCS: 71046

== ENCOUNTER 2024-11-05 22:55 | Observation (INO) | payer MEDICARE, MEDICAID, SELFPAY ==
[2024-05-27 11:10] VITALS: BMI 21.8
--- NOTE | 2024-11-05 00:20 | RAD_ITS ---
PROCEDURE: SHOULDER MIN 2 VIEWS 11/06/2024 REASON FOR EXAM: TRAUMA, PAIN TECHNIQUE: SHOULDER MIN 2 VIEWS Laterality: Right. COMPARISON: 03/06/2024. FINDINGS: Unremarkable metallic prosthesis from prior reverse shoulder arthroplasty. Degenerative joint disease. No fracture or dislocation is seen. No lytic or blastic bone lesion is noted. RAD/Shoulder min 2 Views IMPRESSION: No evidence for acute abnormality. Reading Location: [facility]
[2024-11-05 22:56] VITALS: BP 100/61; PULSE 77; RESP 18; TEMP 36.6; O2SAT 95; BMI 25.0
--- NOTE | 2024-11-05 23:41 | EKG12_ITS ---
Test Reason : DYSRHYTHMIA Blood Pressure : */* mmHG Vent. Rate : 76 BPM Atrial Rate : 76 BPM P-R Int : 152 ms QRS Dur : 74 ms QT Int : 418 ms P-R-T Axes : 43 25 50 degrees QTcB Int : 470 ms Sinus rhythm with frequent Premature ventricular complexes Septal infarct , age undetermined Abnormal ECG Confirmed by CLARA STEVENSON, MIGUELITO ([id number]), editorial project manager SAMMY PRADO ([id number]) on 11/08/2024 1:01:17 PM Referred By: Confirmed By: MIGUELITO ELIZABETH MD
[2024-11-06] VITALS (15 sets, daily range): BP systolic 91–122; BP diastolic 58–68; PULSE 62–79; RESP 14–18; TEMP 36.4–37.1; O2SAT 92–99; BMI 22.4
--- NOTE | 2024-11-06 | CT_ITS ---
PROCEDURE: BRAIN/HEAD WITHOUT CONTRAST 11/06/2024 REASON FOR EXAM: HEAD TRAUMA, LOC TECHNIQUE: BRAIN/HEAD WITHOUT CONTRAST Coronal and Sagittal reconstruction series were provided. One or more dose reduction techniques were used (e.g., Automated exposure control, adjustment of the mA and/or kV according to patient size, use of iterative reconstruction technique. RADIATION DOSE SUMMARY: CTDlvol: mGy DLP: mGycm COMPARISON: 07-18-2024 CT & 07-16-2024 MRI FINDINGS: Left frontal scalp edema/small hematoma is noted. Accentuated bilateral cerebral periventricular deep white matter hypodensities denoting hypoperfusion with bilateral cerebral periventricular and subcortical as well as basal ganglia hypodense foci and patches. Bond-white matter differentiation is maintained. Bilateral basal ganglia calcifications (physiological). Normal CT appearance of the posterior fossa structures. No intracerebral or extra axial hemorrhage. Prominent ventricular system, cortical sulci and extra-axial CSF spaces. No definite calvarial fractures. No midline shifts or deformity. The osseous structures in the skull base are unremarkable. Paranasal sinuses show maxillary and to less extent ethmoidal and sphenoid sinusitis. Vascular atheromatous calcifications. CT/Brain/Head without Contrast IMPRESSION: Left frontal scalp edema/small hematoma is noted. No acute cerebrovascular abnormalities. If clinical symptoms persist, further e valuation with MRI may be considered as clinically warranted. No intra or extra-axial acute hemorrhage. Bilateral cerebral microvascular ischemic changes with mild brain involutional changes. Stable. Reading Location: [facility]
--- NOTE | 2024-11-06 | CT_ITS ---
PROCEDURE: SPINE CERVICAL WITHOUT CONTRAS 11/06/2024 REASON FOR EXAM: TRAUMA TECHNIQUE: SPINE CERVICAL WITHOUT CONTRAS Coronal and Sagittal reconstruction series were provided. One or more dose reduction techniques were used (e.g., Automated exposure control, adjustment of the mA and/or kV according to patient size, use of iterative reconstruction technique. COMPARISON: 03-06-2024 FINDINGS: Anterior fixation of C4 down to C7 vertebrae by plate and screws with fusion of their vertebral bodies. No hardware break, loosening or osseous infection. Straightened cervical lordosis denoting myospasm. Mild C7 anterolithesis. Reduced bone density. The examined vertebral bodies show no structural collapse or posterior neural elements fractures. Intact atlanto-axial interval. Degenerative changes of the atlanto-odontoid articulation with related capsular calcifications. Cystic changes of the odontoid process Cervical spondylodegenerative changes evident by marginal osteophytic lipping and multilevel subchondral sclerosis of the examined vertebral end plates with multilevel disc spaces narrowing with vacuum phenomenon. Multilevel degenerative unco-vertebral arthropathy with osteophytes formation seen encroaching upon the corresponding neural exit foramina. Multilevel degenerative facet arthropathy. Multilevel diffuse disc bulges/posterior osteophytes indenting the theca and encroaching upon the related neural exit foramina. No paraspinal masses. Carotid atheromatous calcifications. CT/Spine Cervical without Contras IMPRESSION: Post operative changes as detailed. Straightened cervical lordosis denoting myospasm. Mild C7 anterolithesis. Reduced bone density. No vertebral fractures, structural collapse or acute dislocation. Cervical spondylodegenerative changes with multilevel uncovertebral and facet a rthropathy along with diffuse disc bulges inducing spinal canal and neural exit pathway compromise. No interval changes. Reading Location[facility] [id number]
--- NOTE | 2024-11-06 | CT_ITS ---
PROCEDURE: CHEST WITHOUT CONTRAST 11/06/2024 REASON FOR EXAM: TRAUMA, PAIN TECHNIQUE: Chest CT without contrast. Coronal and Sagittal reconstruction series were provided. One or more dose reduction techniques were used (e.g., Automated exposure control, adjustment of the mA and/or kV according to patient size, use of iterative reconstruction technique RADIATION DOSE SUMMARY: CTDlvol: 15.74 mGy DLP: 633 mGycm COMPARISON: CT scan on 10/23/2024. FINDINGS: Prior fundoplication. Subsegmental atelectatic changes in the lingula. Bilateral basilar atelectatic changes. Osteopenia. Diffuse spondylosis. Unremarkable metallic prosthesis of the right shoulder. Normal unenhanced main pulmonary artery and right and left pulmonary arteries. Normal bilateral peripheral pulmonary arteries. Normal thoracic aorta and visualized great vessels. There is no demonstrated aortic aneurysm. Normal heart and pericardium. Normal mediastinum. Normal hilar regions. Normal visualized trachea and bronchi. Normal pleura. CT/Chest without Contrast IMPRESSION: Coronary artery calcification (CAC) is present Prior fundoplication. Subsegmental atelectatic changes in the lingula. Bilateral basilar atelectatic changes. Osteopenia. Diffuse spondylosis. Unremarkable metallic prosthesis of the right shoulder. Reading Location: [facility]
[2024-11-06] MEDS: 0.9% Normal Saline (500mL Bag) 500 ML 1000 ML IV (00:01)
--- NOTE | 2024-11-06 00:06 | EDS_ITS ---
HPI HPI - Fall History of Present Illness Chief Complaint: Fall Informant: patient Narrative Narrative: Patient is a 74-year-old male with history of schizophrenia, pulmonary embolism (on Eliquis), COPD, rheumatoid arthritis, prior rotator cuff repair of the right shoulder, ORIF of the right shoulder, IBS, prior cervical spine surgery and chronic pain (takes [place] daily) presenting for evaluation after fall. Patient states he got up from the couch took a couple steps and almost on the room seem to be spinning. He then fell to the ground seen he hit his head and his right shoulder. He thinks he lost consciousness. It is not clear if he lost consciousness when he was falling or after he fell. He is complaining of pain to his head as well as his right shoulder and his thoracic back. Also some pain in his neck. His last dose of Eliquis was this morning. He denies associated numbness or tingling. Denies any vision changes. States he was feeling fine earlier today but has been having some episodes of dizziness. Denies any chest pain or difficulty breathing. No other complaints or concerns reported at this time. Tetanus Immunization: >10 years [facility] Medical History History of steroid therapy Diabetes Walker as ambulation aid History of renal disease Anemia Excessive bleeding Injury of head and neck History of ulceration Gastric reflux Sleep apnea History of pain when walking Cardiology follow-up encounter History of irregular heartbeat Asthma DVT (deep venous thrombosis) Frequent falls Multiple contusions Head injury Adult failure to thrive Schizophrenia Primary osteoarthritis, right shoulder Severe malnutrition Adult failure to thrive Localized osteoarthritis of right knee Pulmonary embolism Ventral hernia, recurrent Rheumatoid arthritis Chronic pain Kidney disease Congestive heart failure (CHF) Complete rotator cuff tear Marijuana use Shoulder impingement SLAP tear of shoulder Acromioclavicular joint arthritis Essential hypertension (08/02/20) Chronic obstructive lung disease (08/02/20) Malaise and fatigue (08/02/20) Low back pain (03/01/11) Displacement of lumbar intervertebral disc without myelopathy (03/01/11) Brachial neuritis (05/31/11) Wears glasses Dementia Alcohol use Ambulates with cane Arthritis Prostate disease High cholesterol Back pain History of IBS Emphysema, unspecified History of stress test History of echocardiogram Osteoarthritis of left knee Bipolar disorder Diabetes GERD (gastroesophageal reflux disease) Former smoker COPD (chronic obstructive pulmonary disease) Myocardial infarct Hypertension Migraines Cervical spondylosis Cervical radiculitis Partial tear of right rotator cuff Essential (primary) hypertension Smoking greater than 40 pack years Dementia PVCs (premature ventricular contractions) Lung nodule < 6cm on CT Cannabis dependence DDD (degenerative disc disease) BPH (benign prostatic hyperplasia) Anxiety Depression Atherosclerotic heart disease of [place] coronary artery without angina pectoris Hyperlipidemia Trigger finger MONIQUE (obstructive sleep apnea) Stage 2 moderate COPD by GOLD classification Peptic ulcer disease Restless leg syndrome Schizophrenia Asthma History of pulmonary embolism Home Medications ?Medication ?Instructions ?Recorded ?Last Taken ?Type ropinirole 0.5 mg tablet 0.5 mg PO QHS RESTLESS LEGS 04/23/16 04/12/24 History budesonide 160 mcg-glycopyr 9 2 inh inhalation BID YARD PILOT D #10.7 01/28/23 04/13/24 Rx mcg-formot 4.8 mcg/actuation HFA grams inhaler (Breztri Aerosphere) potassium chloride 20 mEq 10 meq PO DAILY SUPPLEMENT 0 04/15/23 04/12/24 History tablet,extended release(part/cryst) ferrous sulfate 325 mg (65 mg 325 mg PO DAILY SUPPLEME NT 09/02/23 04/12/24 History iron) tablet furosemide 20 mg tablet (Lasix) 20 mg PO DAILY COPD 04/12/24 History losartan 50 mg tablet 50 mg PO BID BP 11/19/23 History apixaban 5 mg tablet (Eliquis) 5 mg PO BID BLOOD THINN ER #60 tabs 12/30/23 04/11/24 Rx clopidogrel 75 mg tablet 75 mg PO DAILY BLOOD THINNER #30 01/15/24 04/06/24 Rx tabs trazodone 150 mg tablet 150 mg PO QHS SLEEP 03/06/24 04/12/24 History atorvastatin 40 mg tablet 40 mg PO QHS CHOLESTEROL #90 tabs 06/30/24 Unknown Rx cholecalciferol (vitamin D3) 1,250 1,250 mcg PO QWEEK 09/15/24 Unknown History mcg (50,000 unit) capsule erythromycin 5 mg/gram (0.5 %) eye 1 applic ophthalmic (eye) QHS 09/15/24 Unkn own History ointment fexofenadine 180 mg tablet 180 mg PO DAILY 09/15/24 Un known History hydrocodone-acetaminophen 5-325mg 1 tab PO BID 5 Unknown History 5mg-325mg olanzapine 5 mg tablet 5 mg PO QHS 09/15/24 Unknown History Lactobacillus acidoph-L.bulgaricus 1 tab PO DAILY 10/16 05/11 Unknown History 1 million cell tablet (Floranex) desvenlafaxine succinate 50 mg 50 mg PO DAILY 11/05/24 Unknown History tablet,extended release 24 hr dicyclomine 10 mg capsule 10 mg PO TIDAC 11/05/24 Unkn own History fenofibrate 54 mg tablet 54 mg PO DAILY 11/05/24 Unkn own History ondansetron 4 mg disintegrating 4 mg PO Q8H PRN Unknown History tablet tamsulosin 0.4 mg capsule 0.4 mg PO Q24H 11/05/24 Unkn own History Allergy/AdvReac Type Severity Reaction Status Date / Time Quinolones Allergy Unknown unknown Verified 11/05/24 22:56 aspirin Allergy Itching, Verified 11/05/24 22:56 Hives levofloxacin (From Levaquin) Allergy Hives, Verified 11/05/24 22:56 Itching Penicillins Allergy Hives, Verified 11/05/24 22:56 Itching Family History Mother CAD (coronary artery disease) Sister Diabetes Father Alcoholism Surgical History History of cardiac catheterization Hx of total shoulder replacement History of cholecystectomy History of coronary artery stent placement History of right shoulder replacement Hx of colonoscopy S/P right rotator cuff repair Hx of repair of right rotator cuff (06/04/22) H/O left knee surgery History of laparoscopic cholecystectomy History of appendectomy H/O cervical spine surgery H/O ventral hernia repair History of left heart catheterization (04/2016) History of coronary artery stent placement (10/16/18) Social History household members: none housing: house current occupational status: disabled Smoking Status: Former smoker quit date: 02/14/15 how long ago did patient quit smokin years ago second hand exposure: Yes alcohol intake: former details: Quit 9 years ago substance use type: marijuana caffeine: Yes Type: coffee what type of physical activity do you participate in: none seatbelt use: always do you feel safe at home: Yes ROS ROS ED Constitutional Constitutional ED: Reports other Details: Syncopal episode ; Denies chills or fever(s) Eyes Eyes: Denies blurry vision Cardiovascular Cardiovascular: Denies chest pain or palpitations Respiratory/Chest Respiratory/Chest: Denies cough or dyspnea Gastrointestinal Gastrointestinal: Denies abdominal pain, nausea or vomiting Genitourinary Genitourinary ED: Denies dysuria or urinary frequency Musculoskeletal Musculoskeletal: Reports back pain, neck pain and other Details: Right shoulder pain Integumentary Reports Abrasions Neurologic Neurologic: Reports headache(s); Denies paresthesias or weakness Hematologic/Lymphatic Hematologic/Lymphatic: Reports easy bleeding, easy bruising and other Details: On Eliquis EXAM Physical Exam Const Vital Signs: 11/05/24 22:56 11/05/24 23:02 11/06/24 00:00 Temperature 97.9 F Temperature Source Oral Pulse Rate 77 71 Respiratory Rate 18 16 Respiratory Effort Normal Non-Labored Respiratory Depth Normal Respiratory Pattern Normal Blood Pressure 100/61 107/58 L Blood Pressure Mean 74 74 Pulse Ox 95 97 Oxygen Delivery Method Room Air Room Air Room Air 11/06/24 01:00 11/06/24 02:00 11/06/24 03:00 Temperature Temperature Source Pulse Rate 73 74 75 Respiratory Rate 14 16 18 Respiratory Effort Respiratory Depth Respiratory Pattern Blood Pressure 96/60 100/63 100/67 Blood Pressure Mean 72 75 78 Pulse Ox 96 98 97 Oxygen Delivery Method Room Air Room Air Room Air Positive well nourished and well developed General Appearance ED: well developed and NAD HEENT Reports normocephalic and TM's normal bilaterally HEENT Narrative: Abrasion to the left forehead, no signs of basilar skull fracture Negative for hematoma Eyes PERRL and EOMs intact bilaterally Neck Neck Narrative: Immobilized in c-collar. Tenderness to the mid cervical spine midline. No step-off sign present. Maintain C-spine precautions Chest Wall inspection of chest normal and palpation of chest normal Chest Narrative: No chest wall crepitus or tenderness Resp normal respiratory effort and clear to auscultation bilaterally Cardio regular rate and regular rhythm Cardio Narrative: 2+ radial DP pulses present. GI non-tender and non-distended Back/Spine Cervical Spine: cervical spine tenderness Thoracic Spine / Upper Back: thoracic spinal tenderness T8, T9, T10 and T11 Lumbar Spine / Lower Back: Negative for lumbar spinal tenderness Extremity Extremity Narrative: No tenderness over the clavicles. There is deformity the anterior aspect of the right shoulder. Decreased range of motion of the shoulder. Normal range of motion of the left arm. Normal range of motion of the distal right arm. Pelvis is stable. No deformity of the lower extremities. No pain with range of motion of the lower legs. Neuro oriented x3, CN's II-XII intact bilaterally, moves all extremities, no focal motor deficits and no sensory deficits noted Neuro Narrative: Equal supervisor grips strength bilaterally [place] Coma Scale: document GCS findings Spontaneous Obeys Commands Oriented 15 Sensorium / Orientation: alert Psych mental status grossly normal and thought process normal Skin Trauma: abrasion MDM MDM MDM Narrative Medical decision making narrative: Patient evaluated for syncopal episode with associated head injury, neck and back pain as well as right shoulder pain and injury. Differential includes cardiac arrhythmia, hypovolemia, symptomatic anemia, intracranial hemorrhage, [place], skull fracture, cervical spine fracture, right shoulder periprosthetic fracture, right shoulder dislocation, thoracic spine fracture, contusions and infection. Patient given morphine and Zofran for symptoms emergency room. Workup looking for the cause of his syncope as well as for traumatic injuries is obtained. Patient alexa hemodynamically stable in the emergency room. CBC shows a mild leukocytosis 11.8 and a mild anemia with a hemoglobin 10.4. Patient appears to oscillate in his hemoglobin and has been as low as the sevens and then up to 12. He does have a left shift. No obvious source of infection is noted however. His BMP does show some renal insufficiency with a creatinine of 1.59 which is above his baseline of 1.2. Urinalysis is not consistent with infection. Shoulder x-ray viewed by myself as well as radiology shows postoperative changes with no acute abnormality including dislocation or periprosthetic fracture. CT of the chest, brain and cervical spine do not any acute traumatic process except for left frontal scalp edema/small hematoma. Patient is she given morphine for neck pain in the emergency room. Given his syncope as well as renal insufficiency and I do think he would benefit from observation and further monitoring. As he does not have any chest pain or ischemic EKG changes I do not think this is ACS I think he needs emergent troponin levels. Patient is agreeable with admission. Case discussed with hospitalist, Dr. Sawyer Lab Data Attestation: I reviewed the patient's lab results. Labs: Laboratory Results - last 24 hr 11/05/24 11/06/24 23:04 02:30 WBC 11.8 H RBC 3.99 L Hgb 10.4 L Hct 32.0 L MCV 80.2 MCH 26.1 L MCHC 32.5 RDW Std Deviation 44.3 H RDW Coeff of Tad 15.2 H Plt Count 320 MPV 9.5 Immature Gran % (Auto) 3.400 H Neut % (Auto) 66.1 Lymph % (Auto) 20.0 Rice % (Auto) 8.5 Eos % (Auto) 1.4 Baso % (Auto) 0.6 Absolute Neuts (auto) 7.8 H Absolute Lymphs (auto) 2.35 Nucleated RBC % 0 Sodium 138 Potassium 3.3 Chloride 100 Carbon Dioxide 24.5 Anion Gap 14 BUN 17 Creatinine 1.59 H Estim Creat Clear Calc 43.38 L Est GFR (MDRD) Non-Af 45 L BUN/Creatinine Ratio 10.8 Glucose 90 Calcium 8.9 Phosphorus 3.0 Magnesium 1.9 Total Bilirubin 0.15 AST 14 ALT 20 Alkaline Phosphatase 100 Total Protein 6.2 Albumin 3.6 Globulin 2.5 Albumin/Globulin Ratio 1.4 Urine Color Straw Urine Clarity Clear Urine pH 6.0 Ur Specific [place] 1.015 Urine Protein 30 H Urine Glucose (UA) Normal Urine Ketones Negative Urine Occult Blood Negative Urine Nitrite Negative Urine Bilirubin Negative Urine Urobilinogen Normal Ur Leukocyte Esterase Negative Urine RBC 0 SEEN Urine WBC 0 SEEN Ur Squamous Epith Cells 0 SEEN Urine Bacteria 0 SEEN Urine Mucus 0 SEEN Radiography Diagnostic Testing: Clinical Impression(s) from Imaging Studies Shoulder X-Ray 11/05/24 00:20 IMPRESSION: No evidence for acute abnormality. Reading [facility] 11/06/24 00:00 IMPRESSION: Left frontal scalp edema/small hematoma is noted. No acute cerebrovascular abnormalities. If clinical symptoms persist, further evaluation with MRI may be considered as clinically warranted. No intra or extra-axial acute hemorrhage. Bilateral cerebral microvascular ischemic changes with mild brain involutional changes. Stable. Reading Location: [place] [id number] 11/06/24 00:00 IMPRESSION: Post operative changes as detailed. Straightened cervical lordosis denoting myospasm. Mild C7 anterolithesis. Reduced bone density. No vertebral fractures, structural collapse or acute dislocation. Cervical spondylodegenerative changes with multilevel uncovertebral and facet arthropathy along with diffuse disc bulges inducing spinal canal and neural exit pathway compromise. No interval changes. Reading Location: [id number] Chest CT 11/06/24 00:00 IMPRESSION: Coronary artery calcification (CAC) is present Prior fundoplication. Subsegmental atelectatic changes in the lingula. Bilateral basilar atelectatic changes. Osteopenia. Diffuse spondylosis. Unremarkable metallic prosthesis of the right shoulder. Reading [facility] Shoulder x-ray?right reviewed by myself as well as radiology. No acute traumatic process Rhythm Strip Rhythm Strip: Sinus Rhythm Rate: 76 Ectopy: PVC(s) EKG Initial EKG: Attestation: I personally reviewed and interpreted this EKG as follows: Interpretation: Sinus Rhythm Comments: Normal sinus rhythm at a rate of 76 bpm Normal axis Normal intervals Frequent PVCs present Normal ST segments Compared to prior EKG patient now has PVCs Management Discussion w/another healthcare provider: Hospitalist Discharge Plan Dx/Rx/DC Orders Clinical Impression: Syncope, Closed head injury, Current use of snf anticoagulation, History of pulmonary embolism, Contusion of scalp, Neck and shoulder pain, Acute renal insufficiency Disposition Disposition: Acute Care Hospital [facility] Discharge Date/Time: 11/06/24 04:17
[2024-11-06 00:13] LABS: Hematocrit 32.0 % (40-54); Hemoglobin 10.4 g/dL (13.0-16.5); Immature Granulocytes Count 0.400 X10^3/uL (0.0-0.0); Mean Corp Hgb Conc 32.5 g/dL (32-36); Mean Corpuscular Volume 80.2 fL (80-94); Mean Platelet Vol. 9.5 fl (6.2-12.0); NRBC Flagged by Analyzer 0 % (0-5); Platelet Count 320 K/mm3 (150-450); RBC Distribution Width CV 15.2 % (11.6-14.6); RBC Distribution Width SD 44.3 fl (35.1-43.9); Red Blood Count 3.99 M/mm3 (4.6-6.2); White Blood Count 11.8 K/mm3 (4.4-11.0)
[2024-11-06 00:20] LABS: AST(SGOT) 14 U/L (<=37); Alanine Aminotransfer ALT/SGPT 20 U/L (<=46); Albumin, Serum 3.6 g/dL (3.4-4.8); Alkaline Phosphatase 100 U/L (40-129); Anion Gap 14 (5-15); BUN 17 mg/dL (4-19); BUN/Creat Ratio 10.8 RATIO (10-20); Calcium,Total 8.9 mg/dL (7.6-11.0); Carbon Dioxide 24.5 mmol/L (21.0-32.0); Chloride 100 mmol/L (98-108); Estimated Creatinine Clearance 43.38 ml/min (50-250); Globulin 2.5 g/dL (2.2-4.2); Glucose 90 mg/dL (70-99); Potassium 3.3 mmol/L (3.3-5.1)
[2024-11-06 02:33] LABS: Mucous, Urine 0 SEEN /hpf (<or=2+); Red Blood Cells-Urine 0 SEEN /hpf (0-5); Squamous Epithelial Cells - UA 0 SEEN /hpf (0-5)
[2024-11-06 02:36] LABS: Color, Urine Straw (Yellow); Glucose, Dipstick Normal (Normal); Ketone-Dipstick Negative (Negative); Leukocyte Esterase-Dipstick Negative /ul (Negative); Nitrite-Dipstick Negative (Negative); Occult Blood-Urine Negative /ul (Negative); Protein-Dipstick 30 mg/dl (Negative); Specific Gravity, Urine 1.015 (1.002-1.030); Urine Bilirubin Dipstick Negative (Negative)
--- NOTE | 2024-11-06 03:41 | PCM.HP.STD ---
HPI - General General Date of Admission: 11/06/24 Date of Service: 11/06/24 Chief Complaint: Dizziness, fall. HPI Narrative The patient is a 74 y/o M w/ PMHx: CKD stage II per GFR trending, Chronic anemia/Fe deficiency anemia, Chronic migraines, Former tobacco use, Anxiety and Depression/Bipolar disorder/Schizophrenia, Diabetes mellitus type II, MONIQUE, Chronic anemia, COPD/Asthma, Hx VTE (DVT, PE), Frequent Falls, GERD w/ PUD, Rheumatoid arthritis, HTN, HLD, Dementia unclear type with unclear behavioral disturbance history, RLS, CAD s/p PCI who presents to the [facility] ED on 11/06/24 with history of dizziness with associated fall with head trauma with associated loss of consciousness but complaining of mild headache, neck discomfort with laceration of the left forehead as well as right shoulder prompting EMS call and transition to the hospital for evaluation. Workup in the ED included T97.9, heart rate 77, BP 100/61, respiratory rate 18, 95% on room air, CBC with WC 11.8, hemoglobin 10.4, MCV 80.2, platelet 320 with left shift, CMP with BUN/creatinine 17/1.59, GFR 45, hepatic profile unremarkable, CT brain with a left frontal scalp edema/small hematoma with no acute cerebrovascular abnormalities with bilateral cerebral microvascular ischemic changes with mild brain involutional changes that are stable, CT cervical spine with postoperative changes evident with straightened cervical lordosis denoting myospasm, mild C7 anterolisthesis, reduced bone density, cervical spinal degeneration changes multilevel and uncovertebral and facet arthropathy along with diffuse disc bulges inducing spinal canal and neural exit pathic compromise with no interval changes, CT chest without contrast with coronary artery calcification present, prior evidence of fundoplication, subsegmental atelectatic changes in the lingula, bilateral basilar atelectatic changes, osteopenia, diffuse spondylosis, unremarkable metallic prosthesis of the right shoulder, plain film of the right shoulder with no acute abnormality, EKG with sinus rhythm with frequent PVCs with no acute evidence of ischemia, urinalysis unremarkable. In the ED patient administered tetanus update, 1 L normal saline, Zofran 4 mg IV x 1, morphine [address] [facility] Medical History History of steroid therapy Diabetes Walker as ambulation aid History of renal disease Anemia Excessive bleeding Injury of head and neck History of ulceration Gastric reflux Sleep apnea History of pain when walking Cardiology follow-up encounter History of irregular heartbeat Asthma DVT (deep venous thrombosis) Frequent falls Multiple contusions Head injury Adult failure to thrive Schizophrenia Primary osteoarthritis, right shoulder Severe malnutrition Adult failure to thrive Localized osteoarthritis of right knee Pulmonary embolism Ventral hernia, recurrent Rheumatoid arthritis Chronic pain Kidney disease Congestive heart failure (CHF) Complete rotator cuff tear Marijuana use Shoulder impingement SLAP tear of shoulder Acromioclavicular joint arthritis Essential hypertension (08/02/20) Chronic obstructive lung disease (08/02/20) Malaise and fatigue (08/02/20) Low back pain (03/01/11) Displacement of lumbar intervertebral disc without myelopathy (03/01/11) Brachial neuritis (05/31/11) Wears glasses Dementia Alcohol use Ambulates with cane Arthritis Prostate disease High cholesterol Back pain History of IBS Emphysema, unspecified History of stress test History of echocardiogram Osteoarthritis of left knee Bipolar disorder Diabetes GERD (gastroesophageal reflux disease) Former smoker COPD (chronic obstructive pulmonary disease) Myocardial infarct Hypertension Migraines Cervical spondylosis Cervical radiculitis Partial tear of right rotator cuff Essential (primary) hypertension Smoking greater than 40 pack years Dementia PVCs (premature ventricular contractions) Lung nodule < 6cm on CT Cannabis dependence DDD (degenerative disc disease) BPH (benign prostatic hyperplasia) Anxiety Depression Atherosclerotic heart disease of [place] coronary artery without angina pectoris Hyperlipidemia Trigger finger MONIQUE (obstructive sleep apnea) Stage 2 moderate COPD by GOLD classification Peptic ulcer disease Restless leg syndrome Schizophrenia Asthma History of pulmonary embolism Home Medications ?Medication ?Instructions ?Recorded ?Last Taken ?Type ropinirole 0.5 mg tablet 0.5 mg PO QHS RESTLESS LEGS 04/23/16 04/12/24 History budesonide 160 mcg-glycopyr 9 2 inh inhalation BID COPD #10.7 01/28/23 04/13/24 Rx mcg-formot 4.8 mcg/actuation HFA grams inhaler (Breztri Aerosphere) potassium chloride 20 mEq 10 meq PO DAILY SUPPLEMENT 04/15/23 04/12/24 History tablet,extended release(part/cryst) ferrous sulfate 325 mg (65 mg 325 mg PO DAILY SUPPLEMENT 09/02/23 04/12/24 History iron) tablet furosemide 20 mg tablet (Lasix) 20 mg PO DAILY COPD 09/02/23 04/12/24 History losartan 50 mg tablet 50 mg PO BID BP 11/19/23 04/13/24 History apixaban 5 mg tablet (Eliquis) 5 mg PO BID BLOOD THINNER #60 tabs 12/30/23 04/11/24 Rx clopidogrel 75 mg tablet 75 mg PO DAILY BLOOD THINNER #30 01/15/24 04/06/24 Rx tabs trazodone 150 mg tablet 150 mg PO QHS SLEEP 03/06/24 04/12/24 History atorvastatin 40 mg tablet 40 mg PO QHS CHOLESTEROL #90 tabs 06/30/24 Unknown Rx cholecalciferol (vitamin D3) 1,250 1,250 mcg PO QWEEK 09/15/24 Unknown History mcg (50,000 unit) capsule erythromycin 5 mg/gram (0.5 %) eye 1 applic ophthalmic (eye) QHS 09/15/24 Unknown History ointment fexofenadine 180 mg tablet 180 mg PO DAILY 09/15/24 Unknown History hydrocodone-acetaminophen 5-325mg 1 tab PO BID 09/15/24 Unknown History 5mg-325mg olanzapine 5 mg tablet 5 mg PO QHS 09/15/24 Unknown History Lactobacillus acidoph-L.bulgaricus 1 tab PO DAILY 11/05/24 Unknown History 1 million cell tablet (Floranex) desvenlafaxine succinate 50 mg 50 mg PO DAILY 11/05/24 Unknown History tablet,extended release 24 hr dicyclomine 10 mg capsule 10 mg PO TIDAC 11/05/24 Unknown History fenofibrate 54 mg tablet 54 mg PO DAILY 11/05/24 Unknown History ondansetron 4 mg disintegrating 4 mg PO Q8H PRN 11/05/24 Unknown History tablet tamsulosin 0.4 mg capsule 0.4 mg PO Q24H 11/05/24 Unknown History Allergy/AdvReac Type Severity Reaction Status Date / Time Quinolones Allergy Unknown unknown Verified 11/05/24 22:56 aspirin Allergy Itching, Verified 11/05/24 22:56 Hives levofloxacin (From Levaquin) Allergy Hives, Verified 11/05/24 22:56 Itching Penicillins Allergy Hives, Verified 11/05/24 22:56 Itching Family History Mother CAD (coronary artery disease) Sister Diabetes Father Alcoholism Surgical History History of cardiac catheterization Hx of total shoulder replacement History of cholecystectomy History of coronary artery stent placement History of right shoulder replacement Hx of colonoscopy S/P right rotator cuff repair Hx of repair of right rotator cuff (06/04/22) H/O left knee surgery History of laparoscopic cholecystectomy History of appendectomy H/O cervical spine surgery H/O ventral hernia repair History of left heart catheterization (04/2016) History of coronary artery stent placement (10/16/18) Social History household members: none housing: house current occupational status: disabled Smoking Status: Former smoker quit date: 02/14/15 how long ago did patient quit smokin years ago second hand exposure: Yes alcohol intake: former details: Quit 9 years ago substance use type: marijuana caffeine: Yes Type: coffee what type of physical activity do you participate in: none seatbelt use: always do you feel safe at home: Yes ROS ROS Narrative Admission Review of Systems: CONSTITUTIONAL: No weight loss, fever, chills, weakness or fatigue. HEENT: + Dizziness with fall with LOC. Eyes: No visual loss, blurred vision, double vision or yellow sclerae. Ears, Nose, Throat: No hearing loss, sneezing, congestion, runny nose or sore throat. SKIN: No rash or itching, lesions, wounds. CARDIOVASCULAR: + Dizziness with fall with LOC, questionable syncope. No chest pain, chest pressure or chest discomfort, palpitations, edema, orthopnea. RESPIRATORY: No shortness of breath, cough or sputum, wheezing, hemoptysis. GASTROINTESTINAL: No anorexia, nausea, vomiting or diarrhea, abdominal pain, melena, BRBPR. GENITOURINARY: No dysuria, frequency, urgency or retention. NEUROLOGICAL: + Underlying chronic dementia, frequent falls, dizziness/fall with LOC, questionable syncope. No headache, paralysis, ataxia, numbness or tingling in the extremities, focal weakness, change in bowel or bladder control, seizure. MUSCULOSKELETAL: No muscle, back pain, joint pain or stiffness. HEMATOLOGIC: No anemia, bleeding or bruising. LYMPHATICS: No enlarged nodes. No history of splenectomy. PSYCHIATRIC: + History of anxiety and depression/bipolar disorder/schizophrenia. ENDOCRINOLOGIC: No reports of sweating, cold or heat intolerance. No polyuria or polydipsia. ALLERGIES: + History of asthma, hives. Vital Signs Vital Signs Vital Signs: 11/05/24 22:56 11/05/24 23:02 11/06/24 00:00 Temperature 97.9 F Temperature Source Oral Pulse Rate 77 71 Respiratory Rate 18 16 Respiratory Effort Normal Non-Labored Respiratory Depth Normal Respiratory Pattern Normal Blood Pressure 100/61 107/58 L Blood Pressure Mean 74 74 Pulse Ox 95 97 Oxygen Delivery Method Room Air Room Air Room Air 11/06/24 01:00 11/06/24 02:00 11/06/24 03:00 Temperature Temperature Source Pulse Rate 73 74 75 Respiratory Rate 14 16 18 Respiratory Effort Respiratory Depth Respiratory Pattern Blood Pressure 96/60 100/63 100/67 Blood Pressure Mean 72 75 78 Pulse Ox 96 98 97 Oxygen Delivery Method Room Air Room Air Room Air Weight Weight: 184 lb 4.903 oz Body Mass Index (BMI) 25.0 Physical Exam Narrative Physical Examination: General: Awake, alert, oriented to self, place and recent months, remains cooperative, seated upright in ED bed, fatigued, no acute distress. Skin: Normal color, normal turgor, no icterus, no cyanosis except for occasional stage ecchymoses, abrasions with frequent fall history, recent fall just prior to presentation. HEENT: Recent mechanical fall with contusions to the scalp noted/NC, EOMI, PERRLA, mildly dry MM, no carotid bruits or JVD noted. Lungs: Mild diminished, greater bases, poor effort, no rales, ronchi or wheezing. Heart: Regular rate and rhythm; no gallop, rub audible. Abdomen: Soft, NTTP, ND, mildly hyperactive BS, no appreciated HSM. Extremities: No cyanosis, no clubbing, no significant distal pitting edema noted. Neurological: Patient awake, alert, oriented as noted, cognitive function mildly decreased baseline with underlying dementia however currently appears baseline intact and appropriate, pupils equally reactive to light and accommodation, cranial nerves grossly normal, moving all 4 extremities, no focal deficits, strength moderately to severely globally decreased Psychiatric: Affect appears flat, fatigued, no acute evidence of depressive or anxiety feelings but does have underlying psychiatric history. Results Lab / Micro Data 11/05/24 23:04 11/05/24 23:04 Labs: Laboratory Results - last 24 hr 11/05/24 23:04: WBC 11.8 H, RBC 3.99 L, Hgb 10.4 L, Hct 32.0 L, MCV 80.2, MCH 26.1 L, MCHC 32.5, RDW Std Deviation 44.3 H, RDW Coeff of Tad 15.2 H, Plt Count 320, MPV 9.5, Immature Gran % (Auto) 3.400 H, Neut % (Auto) 66.1, Lymph % (Auto) 20.0, [place] % (Auto) 8.5, Eos % (Auto) 1.4, Baso % (Auto) 0.6, Absolute Neuts (auto) 7.8 H, Absolute Lymphs (auto) 2.35, Nucleated RBC % 0, Sodium 138, Potassium 3.3, Chloride 100, Carbon Dioxide 24.5, Anion Gap 14, BUN 17, Creatinine 1.59 H, Estim Creat Clear Calc 43.38 L, Est GFR (MDRD) Non-Af 45 L, BUN/Creatinine Ratio 10.8, Glucose 90, Calcium 8.9, Total Bilirubin 0.15, AST 14, ALT 20, Alkaline Phosphatase 100, Total Protein 6.2, Albumin 3.6, Globulin 2.5, Albumin/Globulin Ratio 1.4 11/06/24 02:30: Urine Color Straw, Urine Clarity Clear, Urine pH 6.0, Ur Specific [place] 1.015, Urine Protein 30 H, Urine Glucose (UA) Normal, Urine Ketones Negative, Urine Occult Blood Negative, Urine Nitrite Negative, Urine Bilirubin Negative, Urine Urobilinogen Normal, Ur Leukocyte Esterase Negative, Urine RBC 0 SEEN, Urine WBC 0 SEEN, Ur Squamous Epith Cells 0 SEEN, Urine Bacteria 0 SEEN, Urine Mucus 0 SEEN Rhythm Strip Rhythm Strip: Sinus Rhythm Rate: 76 Ectopy: PVC(s) Imaging Radiology Impression Shoulder X-Ray 11/05/24 00:20 IMPRESSION: No evidence for acute abnormality. [facility] 11/06/24 00:00 IMPRESSION: Left frontal scalp edema/small hematoma is noted. No acute cerebrovascular abnormalities. If clinical symptoms persist, further evaluation with MRI may be considered as clinically warranted. No intra or extra-axial acute hemorrhage. Bilateral cerebral microvascular ischemic changes with mild brain involutional changes. Stable. Reading Location: [facility] Cervical Spine [address] 11/06/24 00:00 IMPRESSION: Post operative changes as detailed. Straightened cervical lordosis denoting myospasm. Mild C7 anterolithesis. Reduced bone density. No vertebral fractures, structural collapse or acute dislocation. Cervical spondylodegenerative changes with multilevel uncovertebral and facet arthropathy along with diffuse disc bulges inducing spinal canal and neural exit pathway compromise. No interval changes. Reading Location: [id number] Chest CT 11/06/24 00:00 IMPRESSION: Coronary artery calcification (CAC) is present Prior fundoplication. Subsegmental atelectatic changes in the lingula. Bilateral basilar atelectatic changes. Osteopenia. Diffuse spondylosis. Unremarkable metallic prosthesis of the right shoulder. Reading Location: [facility] Assessment & Plan Assessment/Plan (1) Dizziness: PLAN: Plan The patient is a 74 y/o M w/ PMHx: CKD stage II per GFR trending, Chronic anemia/Fe deficiency anemia, Chronic migraines, Former tobacco use, Anxiety and Depression/Bipolar disorder/Schizophrenia, Diabetes mellitus type II, MONIQUE, Chronic anemia, COPD/Asthma, Hx VTE (DVT, PE), Frequent Falls, GERD w/ PUD, Rheumatoid arthritis, HTN, HLD, Dementia unclear type with unclear behavioral disturbance history, RLS, CAD s/p PCI who presents to the [facility] ED on 11/06/24 with history of dizziness with associated fall with head trauma with associated loss of consciousness but complaining of mild headache, neck discomfort with laceration of the left forehead as well as right shoulder prompting EMS call and transition to the hospital for evaluation. #1. Dizziness with mechanical fall with LOC, unclear etiology: EKG in ED w/ sinus rhythm without evidence of acute ischemia, initial trop normal, only notable finding on imaging is noted #2. Will admit to PCU, place on a monitored bed to assure no acute myocardial infarction with serial cardiac enzymes and repeat EKGs as needed. Will maintain on fall precautions, obtain admission orthostatic and AM orthostatic VS and increase hydration if appropriate. Will judiciously hydrate. Will obtain ECHO. PT/OT consultation to ascertain stability and discharge needs. #2. Significant cervical spinal disease with diffuse disc bulging inducing spinal canal and neural exit pathway compromise: ED evaluation included CT cervical spine with postoperative changes evident with straightened cervical lordosis denoting myospasm, mild C7 anterolisthesis, reduced bone density, cervical spinal degeneration changes multilevel and uncovertebral and facet arthropathy along with diffuse disc bulges inducing spinal canal and neural exit pathway compromise with no interval changes, MRI of the cervical spine requested, maintain on for precaution, PT/OT consulted. #3. Acute renal insufficiency/elevated creatinine on chronic Kidney Disease Stage II per GFR trending: Admission BUN/Cr 17/1.59, GFR 45, baseline renal function primarily 1.0-1.2, repeat BMP in AM. #4. CAD: Status post PCI, will continue Plavix, Eliquis cautiously given recent fall, continue statin therapy and fenofibrate regimen, temporally holding hypertensive regimen as noted. #5. Chronic COPD/asthma with allergic rhinitis: Will temporarily hold home inhaler in the interim maintain on ATC budesonide therapy, PRN albuterol, HOB, IS parameters, continue home benefit Exidine regimen.. #6. Dementia, unclear type, unclear extent with unclear behavioral disturbance history: Complicates presentation, per current list does not appear to be on any regimen, PT/OT/case management consulted for discharge planning. #7. Chronic normocytic anemia/iron deficiency anemia: Admission hemoglobin 10.4, MCV 80.2, baseline hemoglobin recently 10-12 but prior to this had been 7-9 range, will continue to trend CBC, continue oral iron supplementation. #8. Diabetes mellitus type II: Noted chart history, per current list does not appear to be on regimen, most recent hemoglobin A1c noted 03/31/2024 5.9%, will maintain on ADA diet, accu checks w/ ISS. #9. Hypertension: Patient with low BP upon presentation, mild renal insufficiency also as noted, will temporarily hold home hypertensive regimen including losartan, Lasix, resume once clinically appropriate. #10. Hyperlipidemia: Will continue patient home fenofibrate and statin therapy. #11. BPH with obstructive pathology: Will continue patient home Flomax regimen, monitor for retention. #12. Anxiety and depression/bipolar disorder/schizophrenia: Will continue patient home olanzapine, desvenlafaxine home regimen. Temporarily hold notably high dose trazodone given recent fall. #13. Restless leg syndrome: Will continue patient home Requip regimen. #14. Former tobacco use: Encourage continued tobacco cessation. #15. History of VTE: Status post DVT, PE, continue patient home Eliquis regimen cautiously given recent fall. #16. GERD with peptic ulcer disease: Per current list does not appear to be on the regimen, will have as needed Mylanta. #17. Rheumatoid arthritis: Per current list does not appear to be on any rheumatological medications or steroids, encourage continued follow-up outpatient with rheumatology as previously arranged. #18. MONIQUE: Noncompliant with PAP therapy usage. #19. DVT prophylaxis: Will continue patient on Eliquis regimen cautiously given recent fall. #20. CODE status: Patient MIGUEL is his daughter and he notes living will is currently in place. Discussed CODE status at length including difference between FULL code, DNR-CCA and DNR-CC status. Following discussions about the differences in these status, requested Full Code status. Advanced Care Planning Face to Face Time: 16 minutes. Charges/Coding Visit Charges Inpatient E&M: 97913 Init Hosp L3 Procedures Hospitalists Procedures: 76445 Advncd Care Plan 30 Min
--- NOTE | 2024-11-06 04:24 | ECHOD_ITS ---
Reason For Study Reason For Study: Syncope/Near Syncope Procedure This was a 2D Doppler, Color Flow transthoracic echocardiogram. Exam performed portable in patient room. Left Ventricle Normal LV size. The estimated ejection fraction is 60 %. No evidence for diastolic dysfunction. No regional wall motion abnormalities noted. Right Ventricle Normal RV size. Normal systolic function. Atria The left and right atria are normal. No doppler evidence for ASD. Mitral Valve There is no mitral valve stenosis. No mitral valve insufficiency. Tricuspid Valve There is no tricuspid stenosis. Trivial tricuspid valve insufficiency. Pulmonary artery systolic pressure is 30-35 mmHg. Aortic Valve Aortic sclerosis, no stenosis. Trisinus/trileaflet aortic valve. There is no aortic stenosis. No aortic valve insufficiency. Pulmonic Valve There is no pulmonic valvular stenosis. No pulmonic valve insufficiency. Great Vessels Normal sized aortic root. Pericardium/Pleural No pericardial effusion. MMode/2D Measurements & Calculations LVIDd: 3.7 cm IVSd: 1.1 cm Ao root diam: 3.2 cm LVIDs: 2.6 cm LVPWd: 1.1 cm RVDd: 4.1 cm FS: 29.8 % LAV(MOD-bp): 38.8 ml LVAd ap4: 25.2 cm2 SV(MOD-sp4): 35.0 ml LAV(MOD-bp) Indexed: 19.5 ml/m2 LVLd ap4: 8.2 cm SI(MOD-sp4): 17.6 ml/m2 LAV(MOD-sp2): 44.5 ml EDV(MOD-sp4): 62.9 ml LAV(MOD-sp4): 31.8 ml EDV(sp4-el): 65.6 ml LVAs ap4: 14.9 cm2 LVLs ap4: 6.6 cm ESV(MOD-sp4): 27.9 ml ESV(sp4-el): 28.4 ml EF(MOD-sp4): 55.6 % EF(sp4-el): 56.8 % SV(sp4-el): 37.3 ml LA A4 area: 14.0 cm2 LA dimension(2D): 3.6 cm RA A4 area: 12.8 cm2 TAPSE: 1.9 cm Time Measurements MV dec time: 0.22 sec Doppler Measurements & Calculations MV E max dell: 59.1 cm/sec Lat Peak E' Dell: 8.9 cm/sec Med Peak E' Dell: 7.0 cm/sec MV A max dell: 89.7 cm/sec E/E' lat: 6.6 E/E' med: 8.5 MV E/A: 0.66 Ao V2 max: 116.0 cm/sec LV V1 max: 96.8 cm/sec MV dec slope: 269.3 cm/sec2 Ao max P.4 mmHg LV V1 max P.8 mmHg Ao V2 mean: 83.1 cm/sec LV V1 mean P.8 mmHg Ao mean P.0 mmHg LV V1 mean: 62.8 cm/sec Ao V2 VTI: 25.4 cm LV V1 VTI: 23.9 cm AV (velocity ratio): 0.94 PA V2 max: 82.1 cm/sec PI end-d dell: 93.9 cm/sec TR max dell: 264.8 cm/sec TR max P.0 mmHg ECHO/Echo Complete Interpretation Summary The estimated ejection fraction is 60 %. No evidence for diastolic dysfunction. Ordering Physician: Margo Sawyer Referring Physician: Eliel Mosley Performed By: Suzy Tapia, DANA, RVT
[2024-11-06] MEDS: 0.9% Saline Lock 10 ML Syringe IV (04:40)
[2024-11-06 04:46] LABS: Magnesium 1.9 mg/dL (1.5-2.2)
--- NOTE | 2024-11-06 05:55 | MRI_ITS ---
PROCEDURE: SPINE CERVICAL (ROUTINE) 11/06/2024 REASON FOR EXAM: FALL, DISC BULGE, SPINAL CANAL STENOSIS TECHNIQUE: SPINE CERVICAL (ROUTINE) Multiplanar and multisequence images were obtained without IV contrast administration. FINDINGS: Vertebrae: Cervical vertebral body heights are preserved. Bone marrow signal is unremarkable. Status post ACDF C4 through C7 Alignment: Normal. No spondylolisthesis. Spinal Cord: Cervical spinal cord is of normal size and signal intensities. Structures at the foramen magnum are unremarkable. C2-3: Severe left foramina stenosis and corresponding severe foramina stenosis. Right facet joint arthropathy. Mild right foramina stenosis. Disc osteophyte complex. Moderate canal stenosis. C3-4: Disc osteophyte complex. Severe left facet joint arthritis and fusion. Severe left foramina stenosis. Mild canal stenosis. C4-5: Facet joints arthropathy. No significant foraminal or canal stenosis. C5-6: Uncovertebral hypertrophy. Facet joint arthropathy. Ligamentum flavum hypertrophy. Severe left and mild right foramina stenosis. Mild canal stenosis. C6-7: Facet joint arthropathy. No significant foraminal or canal stenosis. C7-T1: No significant foraminal or canal stenosis. MRI/Spine Cervical (Routine) IMPRESSION: Status post ACDF C4 through C7. Degenerate changes, predominantly for severe left foramina stenosis at C2-C3 an d C3-C4 from facet joint arthropathy. Moderate canal stenosis at C2-C3. Reading Location: [id number]
[2024-11-06 05:57] LABS: Hematocrit 33.4 % (40-54); Hemoglobin 10.6 g/dL (13.0-16.5); Immature Granulocytes Count 0.360 X10^3/uL (0.0-0.0); Mean Corp Hgb Conc 31.7 g/dL (32-36); Mean Corpuscular Volume 81.7 fL (80-94); Mean Platelet Vol. 9.3 fl (6.2-12.0); NRBC Flagged by Analyzer 0 % (0-5); Platelet Count 322 K/mm3 (150-450); RBC Distribution Width CV 15.4 % (11.6-14.6); RBC Distribution Width SD 45.8 fl (35.1-43.9); Red Blood Count 4.09 M/mm3 (4.6-6.2); White Blood Count 11.5 K/mm3 (4.4-11.0)
[2024-11-06 06:16] LABS: AST(SGOT) 73 U/L (<=37); Alanine Aminotransfer ALT/SGPT 66 U/L (<=46); Albumin, Serum 3.8 g/dL (3.4-4.8); Alkaline Phosphatase 185 U/L (40-129); Anion Gap 12 (5-15); BUN 17 mg/dL (4-19); BUN/Creat Ratio 11.9 RATIO (10-20); Calcium,Total 8.6 mg/dL (7.6-11.0); Carbon Dioxide 25.0 mmol/L (21.0-32.0); Chloride 103 mmol/L (98-108); Estimated Creatinine Clearance 47.56 ml/min (50-250); Globulin 2.1 g/dL (2.2-4.2); Glucose 103 mg/dL (70-99); Potassium 3.4 mmol/L (3.3-5.1)
--- NOTE | 2024-11-06 06:23 | NURSING ---
Reviewed and agreed on charting with Jared Lopez RN
[2024-11-06 06:25] LABS: Troponin T High Sensitivity 35 ng/L (<=22)
[2024-11-06] MEDS: Budesonide Respules 0.5 MG/2 ML AMPUL.NEB. INHALATION ×2 (06:38→19:20)
[2024-11-06 08:19] LABS: Troponin T High Sens 2 HR 33 ng/L (<=22)
[2024-11-06] MEDS: 0.9% Normal Saline (1000mL) 1,000 ML 100 ML IV (08:45)
[2024-11-06] MEDS: Ensure Plus High Protein 120 ML LIQUID PO ×2 (09:07→16:42)
[2024-11-06] MEDS: Lactobacillis Acidophilus 1 CAP PO (09:07)
[2024-11-06] MEDS: Potassium Chloride Oral Tablet 10 MEQ PO (09:08)
[2024-11-06] MEDS: HYDROcodone Bitartrate/Apap 5/325 Tablet PO ×2 (09:14→21:26)
--- NOTE | 2024-11-06 10:12 | CASEMGMT ---
Addendum entered by Kimberli Calvo 11/06/24 13:54: Social Work SW did inquire about pt's mental health, pt states he has been feeling down as he lost his best friend two weeks ago. SW offered support to pt. Pt declines being suicidal at this time. SW asked if he is in counseling. Pt goes to [facility] fo his psychiatric medications, and they are supposed to set him up w/therapy. SW did offer to give pt information on bereavement counseling through hospice, pt declined, will follow up w/[facility]. JOCE Loving Original Note: Social Work SW met w/pt, reviewed prior level of function and anticipated discharge plan. PCP: Eliel Mosley, at [facility] Specialists: Pt did see Dr. Phillips in the past for pulmonology, but has not been to [facility] in two years. Pt also has been to [facility] but has not followed up in two years. Pt sees no other specialists. Preferred Pharmacy: [email or web address] Insurance/Prescription Coverage: [employer] LW/POA: Daughter Bethany Falk is POA, both documents are scanned into [employer] LNOK: Daughter, nephew Living arrangements/prior level of function: Pt lives home alone in a one story cottage and no steps to enter. Pt is independent with most ADLs. Pt does have a trimming caser through [employer] however and has aide services. He does not remember his trimming caser's name. He has aide services who come in three times per week for two hours at a time, they help mostly with housekeeping. Pt also gets home delivered meals through [employer]. His daughter does not help him at home. Transportation: Pt drives, or his daughter does drive pt to appts DME: shower chair, cane, grab bars, walker, medical alert, nebulizer, pulse ox. Pt is not on home O2 SNF/HHC: Pt has been to [facility], most recently earlier this year. Pt states has been home for months. Pt has never had HHC. Plan: Pt prefers to go home at d/c, and would be open to HHC. PT/OT pending. SW explained once he has had PT/OT evaluations, SW will follow up to review the most appropriate d/c plan w/pt. SW will continue to follow. JOCE Loving
[2024-11-06 12:00] LABS: Troponin T High Sens 4 HR 32 ng/L (<=22)
--- NOTE | 2024-11-06 12:02 | PCM.PROGNOTE ---
Subjective Subjective Patient seen and examined. He was seen with his nurse by his bedside. He was admitted with complaint of dizziness of mechanical fall orthostatics were positive with obesity. He denies any dizziness or lightheadedness now. He denies any headache, chest pain, nausea or vomiting or any other symptoms. Review of systems otherwise negative. He states his last fall was more than 6 months ago. Objective Data Objective Data Vital Signs: Vital Signs Temp Pulse Resp BP Pulse Ox O2 Del Method 98.4 F 68 16 118/68 99 Room Air 11/06/24 10:30 11/06/24 10:30 11/06/24 10:30 11/06/24 10:30 11/06/24 10:30 11/06/24 10:30 Oxygen Delivery Method Room Air Weight: 165 lb 2.02 oz Body Mass Index (BMI) 22.4 Intake & Output: Intake and Output for Last 24 Hours 11/04/24 11/05/24 11/06/24 23:59 23:59 23:59 Intake Total 100 / 100 500 / 500 Balance 100 / 100 500 / 500 Lab / Micro Data 11/06/24 05:47 11/06/24 05:47 Labs: Laboratory Results - last 24 hr 11/05/24 23:04: WBC 11.8 H, RBC 3.99 L, Hgb 10.4 L, Hct 32.0 L, MCV 80.2, MCH 26.1 L, MCHC 32.5, RDW Std Deviation 44.3 H, RDW Coeff of Tad 15.2 H, Plt Count 320, MPV 9.5, Immature Gran % (Auto) 3.400 H, Neut % (Auto) 66.1, Lymph % (Auto) 20.0, Pendleton % (Auto) 8.5, Eos % (Auto) 1.4, Baso % (Auto) 0.6, Absolute Neuts (auto) 7.8 H, Absolute Lymphs (auto) 2.35, Nucleated RBC % 0, Sodium 138, Potassium 3.3, Chloride 100, Carbon Dioxide 24.5, Anion Gap 14, BUN 17, Creatinine 1.59 H, Estim Creat Clear Calc 43.38 L, Est GFR (MDRD) Non-Af 45 L, BUN/Creatinine Ratio 10.8, Glucose 90, Calcium 8.9, Phosphorus 3.0, Magnesium 1.9, Total Bilirubin 0.15, AST 14, ALT 20, Alkaline Phosphatase 100, Total Protein 6.2, Albumin 3.6, Globulin 2.5, Albumin/Globulin Ratio 1.4 11/06/24 02:30: Urine Color Straw, Urine Clarity Clear, Urine pH 6.0, Ur Specific Goodrich 1.015, Urine Protein 30 H, Urine Glucose (UA) Normal, Urine Ketones Negative, Urine Occult Blood Negative, Urine Nitrite Negative, Urine Bilirubin Negative, Urine Urobilinogen Normal, Ur Leukocyte Esterase Negative, Urine RBC 0 SEEN, Urine WBC 0 SEEN, Ur Squamous Epith Cells 0 SEEN, Urine Bacteria 0 SEEN, Urine Mucus 0 SEEN 11/06/24 04:46: POC Glucose 107 H 11/06/24 05:47: WBC 11.5 H, RBC 4.09 L, Hgb 10.6 L, Hct 33.4 L, MCV 81.7, MCH 25.9 L, MCHC 31.7 L, RDW Std Deviation 45.8 H, RDW Coeff of Tad 15.4 H, Plt Count 322, MPV 9.3, Immature Gran % (Auto) 3.100 H, Neut % (Auto) 71.8 H, Lymph % (Auto) 15.0 L, Pendleton % (Auto) 8.2, Eos % (Auto) 1.3, Baso % (Auto) 0.6, Absolute Neuts (auto) 8.2 H, Absolute Lymphs (auto) 1.72, Nucleated RBC % 0, Sodium 140, Potassium 3.4, Chloride 103, Carbon Dioxide 25.0, Anion Gap 12, BUN 17, Creatinine 1.40 H, Estim Creat Clear Calc 47.56 L, Est GFR (MDRD) Non-Af 52 L, BUN/Creatinine Ratio 11.9, Glucose 103 H, Calcium 8.6, Total Bilirubin 0.18, AST 73 H, ALT 66 H, Alkaline Phosphatase 185 H, Troponin T High Sens 35 H, Total Protein 5.9, Albumin 3.8, Globulin 2.1 L, Albumin/Globulin Ratio 1.8 11/06/24 07:29: Troponin T Hi Sens 2 Hr 33 H 11/06/24 10:16: Troponin T Hi Sens 4Hr 32 H Radiography Diagnostic Testing: Radiology Impression Shoulder X-Ray 11/05/24 00:20 IMPRESSION: No evidence for acute abnormality. Reading Location: [facility] Brain CT 11/06/24 00:00 IMPRESSION: Left frontal scalp edema/small hematoma is noted. No acute cerebrovascular abnormalities. If clinical symptoms persist, further evaluation with MRI may be considered as clinically warranted. No intra or extra-axial acute hemorrhage. Bilateral cerebral microvascular ischemic changes with mild brain involutional changes. Stable. [facility] Cervical Spine CT 11/06/24 00:00 IMPRESSION: Post operative changes as detailed. Straightened cervical lordosis denoting myospasm. Mild C7 anterolithesis. Reduced bone density. No vertebral fractures, structural collapse or acute dislocation. Cervical spondylodegenerative changes with multilevel uncovertebral and facet arthropathy along with diffuse disc bulges inducing spinal canal and neural exit pathway compromise. No interval changes. Reading Location: [facility] Chest CT 11/06/24 00:00 IMPRESSION: Coronary artery calcification (CAC) is present Prior fundoplication. Subsegmental atelectatic changes in the lingula. Bilateral basilar atelectatic changes. Osteopenia. Diffuse spondylosis. Unremarkable metallic prosthesis of the right shoulder. [facility] Rhythm Strip Rhythm Strip: Sinus Rhythm Rate: 76 Ectopy: PVC(s) Physical Exam Const alert, oriented x3 and no apparent distress General Appearance: cooperative HEENT normocephalic, head/scalp atraumatic, moist oral mucous membranes and oropharynx normal Eyes PERRL and EOMs intact bilaterally Neck supple and no JVD Lymph Lymphatic: no lymphedema noted Resp Resp Narrative: mildly diminished breath sounds bilaterally, no wheezes or crackles. on room air. Cardio regular rate, regular rhythm, S1 normal heart sound, S2 normal heart sound and no murmurs GI normal to inspection, nondistended, normoactive bowel sounds, soft to palpation and non-tender Extremity normal capillary refill, no clubbing, cyanosis or edema and no calf tenderness General Extremity: no tenderness to palpation of joints or extremities Skin General Skin Exam: no breakdown Neuro no focal motor deficits Motor Exam: strength 5/5 throughout and general weakness Psych thought process normal and cooperative Appearance: appropriate Assessment & Plan Assessment/Plan (1) Acute renal insufficiency: (2) Contusion of scalp: (3) Syncope: PLAN: Plan #Debility and weakness due to syncope Orthostatics were positive when he came in. CT of the brain did show a small frontal hematoma. EKG showed no acute ST changes. CT cervical spine showed diffuse disc bulging and evidence of spinal stenosis. MRI of the cervical spine orderd 2D echo also ordered. PT/OT on board. Fall precautions. #CLAYTON: Creatinine is 1.4 with a baseline creatinine of around 1.1. Creatinine was 1.59 yesterday. Hydrate gently with IV fluids and monitor creatinine. #History of PE Sonny Says he has had multiple PEs. On eliquis. This will be held today due to mechanical fall and resultant hematoma. Resume tomorrow if hematoma doesnt get worsen. #CAD s/p PCI: on plavix and high intensity statin. #COPD and asthma: on breahting treatment with bronchodilators. Titrate oxygen to maintain sats >90% #TYpe 2 diabetes mellitus: most recent A1C in march 2024 was 5.9. On ISS. Accuchecks ACHS. #Hypertension; BP was runnin glow on admission and orthostatics were positive. On losartan and lasix which were held on admission. #MONIQUE: on CPAP qhs #Restless leg syndrome: on requip. #BPH with obstructive pathology: on flomax. #Anxiety and depression as well as bipolar disorder and schizophrenia On olanzapine and desvenlafaxine. DVT prophylaxis: hold eliquis due to mechanical fall and resultant frontal hematoma. SCDs Charges/Coding Visit Charges Inpatient E&M: 82488 Subs Hosp L2
--- NOTE | 2024-11-06 13:46 | CASEMGMT ---
Social Work Pt completed PT/OT evaluations. SW met w/pt, he feels he moving well enough to return home at d/c. Pt is open to [facility], does not have a preference for home health agency. He has had [facility] in the past, pt agreeable to SW starting w/[facility]. SW called [facility], message left regarding referral. SW/RAYA will follow up on Friday. JOCE Loving
[2024-11-06] MEDS: OLANZapine 5 MG/TAB TAB.RAPDIS PO (21:29)
[2024-11-07] VITALS (7 sets, daily range): BP systolic 101–105; BP diastolic 63–68; PULSE 66–88; RESP 16–18; TEMP 36.4–36.7; O2SAT 91–96; BMI 22.1
[2024-11-07] MEDS: Budesonide Respules 0.5 MG/2 ML AMPUL.NEB. INHALATION ×2 (06:37→20:35)
[2024-11-07 07:34] LABS: Hematocrit 30.8 % (40-54); Hemoglobin 10.0 g/dL (13.0-16.5); Immature Granulocytes Count 0.300 X10^3/uL (0.0-0.0); Mean Corp Hgb Conc 32.5 g/dL (32-36); Mean Corpuscular Volume 80.6 fL (80-94); Mean Platelet Vol. 9.4 fl (6.2-12.0); NRBC Flagged by Analyzer 0 % (0-5); Platelet Count 308 K/mm3 (150-450); RBC Distribution Width CV 15.4 % (11.6-14.6); RBC Distribution Width SD 45.1 fl (35.1-43.9); Red Blood Count 3.82 M/mm3 (4.6-6.2); White Blood Count 8.1 K/mm3 (4.4-11.0)
[2024-11-07 07:56] LABS: Anion Gap 10 (5-15); BUN 16 mg/dL (4-19); BUN/Creat Ratio 15.8 RATIO (10-20); Calcium,Total 8.7 mg/dL (7.6-11.0); Carbon Dioxide 24.3 mmol/L (21.0-32.0); Chloride 105 mmol/L (98-108); Estimated Creatinine Clearance 66.62 ml/min (50-250); Glucose 100 mg/dL (70-99); Potassium 4.1 mmol/L (3.3-5.1)
[2024-11-07] MEDS: HYDROcodone Bitartrate/Apap 5/325 Tablet PO ×2 (09:32→19:54)
[2024-11-07] MEDS: Ensure Plus High Protein 120 ML LIQUID PO ×3 (09:32→16:12)
[2024-11-07] MEDS: Lactobacillis Acidophilus 1 CAP PO (09:33)
[2024-11-07] MEDS: Potassium Chloride Oral Tablet 10 MEQ PO (09:34)
[2024-11-07] MEDS: APIXABAN 5 MG TABLET PO ×2 (09:35→19:54)
--- NOTE | 2024-11-07 11:23 | PN_ITS ---
Subjective Subjective Patient seen and examined with his nurse by his bedside. He had no complaints today and was feeling well. He had an uneventful night. Review of systems otherwise negative. He has remained hemodynamically stable. He is accepting of placement now. Objective Data Objective Data Vital Signs: Vital Signs Temp Pulse Resp BP Pulse Ox O2 Del Method 98.0 F 80 18 101/63 96 Room Air 11/07/24 09:31 11/07/24 09:31 11/07/24 09:31 11/07/24 09:31 11/07/24 09:31 11/07/24 09:31 Oxygen Delivery Method Room Air Weight: 163 lb 9.328 oz Body Mass Index (BMI) 22.1 Intake & Output: Intake and Output for Last 24 Hours 11/05/24 11/06/24 11/07/24 23:59 23:59 23:59 Intake Total 100 / 100 1800 / 1800 200 / 200 Balance 100 / 100 1800 / 1800 200 / 200 Medical Nutrition Assessment Dietitian: Malnutrition Criteria Met Start: 11/06/24 15:38 Freq: Status: Active Protocol: Document 11/06/24 15:38 ANAIS (Rec: 11/06/24 15:39 ANAIS [id number]) Nutrition Malnutrition Evidence of Yes Malnutrition Exists Malnutrition ( Chronic moderate): Evidenced By Weight Loss (Severe),Physical Changes (Mild),Physical Changes (Moderate) Clinical Problem Chronic Disease or Condition Related Malnutrition Etiology related to inability to meet estimated nutrient needs Signs/Symptoms as evidenced by significant weight loss of 11.3% or 21lb in less than 6 months based upon 05/19/24 weight of 186lb and evidence of mild to moderate muscle and fat wasting (temples, clavicle, buccal). Status Active Problem Recommendation Dietitian Continue with Cardiac: Calorie Controlled 1800kcal diet Recommendations/ as pt notes no issues with diet. Continue with EPHP Changes 120mL 3x/day with medpass to help increase oral intakes . Good blood glucose control noted per labs. Will continue to follow, monitor oral intakes and modify nutrition interventions as needed. Lab / Micro Data 11/07/24 07:10 11/07/24 07:10 Labs: Laboratory Results - last 24 hr 11/06/24 10:16: Troponin T Hi Sens 4Hr 32 H 11/06/24 11:55: POC Glucose 98 11/06/24 16:38: POC Glucose 101 11/06/24 21:31: POC Glucose 92 11/07/24 05:20: WBC Cancelled, Corrected WBC Cancelled, RBC Cancelled, Hgb Cancelled, Hct Cancelled, MCV Cancelled, MCH Cancelled, MCHC Cancelled, RDW Std Deviation Cancelled, RDW Coeff of Tad Cancelled, Plt Count Cancelled, MPV Cancelled, Immature Gran % (Auto) Cancelled, Neut % (Auto) Cancelled, Lymph % (Auto) Cancelled, [place] % (Auto) Cancelled, Eos % (Auto) Cancelled, Baso % (Auto) Cancelled, Absolute Neuts (auto) Cancelled, Absolute Lymphs (auto) Cancelled, Total Counted Cancelled, Neutrophils % (Manual) Cancelled, Band Neutrophils % Cancelled, Lymphocytes % (Manual) Cancelled, Monocytes % (Manual) Cancelled, Eosinophils % (Manual) Cancelled, Basophils % (Manual) Cancelled, Metamyelocytes % Cancelled, Myelocytes % Cancelled, Promyelocytes % Cancelled, Blast Cells % Cancelled, Plasma Cell % (Manual) Cancelled, Other Cells % Cancelled, Nucleated RBC % Cancelled, Nucleated RBCs/100 WBC Cancelled, Differential Comment Cancelled, Diff Path Review Cancelled, Hypersegmented Neuts Cancelled, Atypical Lymphocytes Cancelled, Reactive Lymphocytes Cancelled, Smudge Cells Cancelled, Toxic Granulation Cancelled, Toxic Vacuolation Cancelled, Dohle Bodies Cancelled, Capri Rods Cancelled, Platelet Estimate Cancelled, Plt Morphology Comment Cancelled, RBC Morphology Cancelled 11/07/24 05:20: RBC Morphology Cancelled, Polychromasia Cancelled, Hypochromasia Cancelled, Basophilic Stippling Cancelled, Anisocytosis Cancelled, Microcytosis Cancelled, Macrocytosis Cancelled, Spherocytes Cancelled, Sickle Cells Cancelled, Target Cells Cancelled, Tear Drop Cells Cancelled, Ovalocytes Cancelled, Stomatocytes Cancelled, Lou-Othello Bodies Cancelled, Orinda Cells Cancelled, Bite Cells Cancelled, Crenated Cell Cancelled, Acanthocytes (Spur) Cancelled, Rouleaux Cancelled, Schistocytes Cancelled, Sodium Cancelled, Potassium Cancelled, Chloride Cancelled, Carbon Dioxide Cancelled, Anion Gap Cancelled, BUN Cancelled, Creatinine Cancelled, Estim Creat Clear Calc Cancelled, Est GFR (MDRD) Non-Af Cancelled, BUN/Creatinine Ratio Cancelled, Glucose Cancelled, Calcium Cancelled 11/07/24 05:44: POC Glucose 102 11/07/24 07:10: WBC 8.1, RBC 3.82 L, Hgb 10.0 L, Hct 30.8 L, MCV 80.6, MCH 26.2 L, MCHC 32.5, RDW Std Deviation 45.1 H, RDW Coeff of Tad 15.4 H, Plt Count 308, MPV 9.4, Immature Gran % (Auto) 3.700 H, Neut % (Auto) 65.3, Lymph % (Auto) 20.0, [place] % (Auto) 8.1, Eos % (Auto) 2.4, Baso % (Auto) 0.5, Absolute Neuts (auto) 5.3, Absolute Lymphs (auto) 1.61, Nucleated RBC % 0, Sodium 139, Potassium 4.1, Chloride 105, Carbon Dioxide 24.3, Anion Gap 10, BUN 16, Creatinine 0.99, Estim Creat Clear Calc 66.62, Est GFR (MDRD) Non-Af 79, BUN/Creatinine Ratio 15.8, Glucose 100 H, Calcium 8.7 Radiography Diagnostic Testing: Radiology Impression Echocardiogram 11/06/24 04:24 Interpretation Summary The estimated ejection fraction is 60 %. No evidence for diastolic dysfunction. Ordering Physician: Margo Sawyer Referring Physician: Eliel Mosley Performed By: Suzy Tapia, DANA, RVT Cervical Spine MRI 11/06/24 05:55 IMPRESSION: Status post ACDF C4 through C7. Degenerate changes, predominantly for severe left foramina stenosis at C2-C3 and C3-C4 from facet joint arthropathy. Moderate canal stenosis at C2-C3. Reading Location: [facility] Rhythm Strip Rhythm Strip: Sinus Rhythm Rate: 76 Ectopy: PVC(s) Physical Exam Const alert, oriented x3 and no apparent distress General Appearance: cooperative HEENT normocephalic, head/scalp atraumatic, moist oral mucous membranes and oropharynx normal Eyes PERRL and EOMs intact bilaterally Neck supple and no JVD Lymph Lymphatic: no lymphedema noted Resp Resp Narrative: mildly diminished breath sounds bilaterally, no wheezes or crackles. on room air. Cardio regular rate, regular rhythm, S1 normal heart sound, S2 normal heart sound and no murmurs GI normal to inspection, nondistended, normoactive bowel sounds, soft to palpation and non-tender Extremity normal capillary refill, no clubbing, cyanosis or edema and no calf tenderness General Extremity: no tenderness to palpation of joints or extremities Skin General Skin Exam: no breakdown Neuro no focal motor deficits Motor Exam: strength 5/5 throughout and general weakness Psych thought process normal and cooperative Appearance: appropriate Assessment & Plan Assessment/Plan (1) Acute renal insufficiency: (2) Contusion of scalp: (3) Syncope: PLAN: Plan #Debility and weakness due to syncope from orthostatic hypotension * Orthostatics were positive when he came in. CT of the brain did show a small frontal hematoma. EKG showed no acute ST changes. * CT cervical spine showed diffuse disc bulging and evidence of spinal stenosis. * MRI of the cervical spine ordered showed degenerative changes predominantly for severe left foramina stenosis at C2-C3 and C3-C4 from facet joint arthropathy. Moderate canal stenosis at C2-C3 * 2D echo showed EF of 60% and no evidence of diastolic dysfunction. * PT/OT on board. Fall precautions. * #CLAYTON: * resolved. Cr is down to 0.99. #History of PE: Says he has had multiple PEs. On eliquis. This was held temporarily yesterday due to patient's hematoma. He remained stable overnight so will resume eliquis #CAD s/p PCI: on plavix and high intensity statin. #COPD and asthma: on breahting treatment with bronchodilators. Titrate oxygen to maintain sats >90% #TYpe 2 diabetes mellitus: most recent A1C in march 2024 was 5.9. On ISS. Accuchecks ACHS. #Hypertension; BP was runnin glow on admission and orthostatics were positive. On losartan and lasix which were held on admission. #MONIQUE: on CPAP qhs #Restless leg syndrome: on requip. #BPH with obstructive pathology: on flomax. #Anxiety and depression as well as bipolar disorder and schizophrenia * On olanzapine and desvenlafaxine. DVT prophylaxis: on eliquis. Disposition: Now agreeable to placement. Case management on board. Charges/Coding Visit Charges Inpatient E&M: 12071 Subs Hosp L2
[2024-11-07] MEDS: OLANZapine 5 MG/TAB TAB.RAPDIS PO (19:55)
[2024-11-08 03:07] VITALS: BMI 22.1
[2024-11-08 04:35] VITALS: BP 105/57; PULSE 67; RESP 18; TEMP 36.5; O2SAT 96
[2024-11-08 06:01] LABS: Hematocrit 31.3 % (40-54); Hemoglobin 9.8 g/dL (13.0-16.5); Immature Granulocytes Count 0.200 X10^3/uL (0.0-0.0); Mean Corp Hgb Conc 31.3 g/dL (32-36); Mean Corpuscular Volume 81.5 fL (80-94); Mean Platelet Vol. 9.6 fl (6.2-12.0); NRBC Flagged by Analyzer 0 % (0-5); Platelet Count 301 K/mm3 (150-450); RBC Distribution Width CV 15.4 % (11.6-14.6); RBC Distribution Width SD 45.7 fl (35.1-43.9); Red Blood Count 3.84 M/mm3 (4.6-6.2); White Blood Count 7.3 K/mm3 (4.4-11.0)
[2024-11-08 06:15] LABS: Anion Gap 11 (5-15); BUN 17 mg/dL (4-19); BUN/Creat Ratio 17.0 RATIO (10-20); Calcium,Total 8.9 mg/dL (7.6-11.0); Carbon Dioxide 24.6 mmol/L (21.0-32.0); Chloride 104 mmol/L (98-108); Estimated Creatinine Clearance 64.40 ml/min (50-250); Glucose 95 mg/dL (70-99); Potassium 4.1 mmol/L (3.3-5.1)
[2024-11-08 06:43] VITALS: PULSE 83; RESP 20; O2SAT 93
[2024-11-08] MEDS: Albuterol 2.5 MG/3 ML VIAL.NEB. INHALATION (06:44)
[2024-11-08] MEDS: Budesonide Respules 0.5 MG/2 ML AMPUL.NEB. INHALATION (06:44)
[2024-11-08 08:00] VITALS: BP 118/69; PULSE 87; RESP 16; TEMP 36.7; O2SAT 96
[2024-11-08] MEDS: Ensure Plus High Protein 120 ML LIQUID PO ×2 (09:13→13:42)
[2024-11-08] MEDS: Potassium Chloride Oral Tablet 10 MEQ PO (09:58)
[2024-11-08] MEDS: Lactobacillis Acidophilus 1 CAP PO (09:58)
[2024-11-08] MEDS: APIXABAN 5 MG TABLET PO (09:58)
[2024-11-08] MEDS: HYDROcodone Bitartrate/Apap 5/325 Tablet PO (09:59)
--- NOTE | 2024-11-08 10:00 | CASEMGMT ---
Social Work SW spoke w/Ria from [facility], Ria states they can take pt. SW let the SW/CM on PCU know. JOCE Loving
--- NOTE | 2024-11-08 10:28 | CASEMGMT ---
Addendum entered by Breana Swanson 11/08/24 13:48: PEYTON met with pt to update on [facility] SOC date. Pt reports that he will call dtr for transport. RNCM notified for med verification. Pt reports no additional discharge needs. ROSALEE Lindsay Addendum entered by Breana Swanson 11/08/24 12:23: [facility] reports SOC Friday. Pt updated. ROSALEE Lindsay Original Note: Social Work- SW met with pt to discuss discharge planning. PEYTON updated that [facility] accepted referral. SW reviewed therapy progress; pt agreeable to return home with [facility]. PEYTON updated physician. PEYTON remains available to follow. ROSALEE Lindsay
--- NOTE | 2024-11-08 10:59 | PAL.SCREENIN ---
Palliative Med Screening Tool General Referral Criteria General Criteria: Consult for any of the following:: Admission from long-term care facility (penitentiary or asstd living) Palliative Consultation Consult Palliative Care: Yes
--- NOTE | 2024-11-08 11:08 | PCM.DC ---
Discharge Instructions DC O2, CPAP, BIPAP needs Home O2 Discharge instructions: No Dressing / Incision Discharge Activity: Return to Normal Activity Dressing / Incision Call your doctor if you observe: Fever of 101 or Higher, Shortness of breath, Dizziness, Fainting spells, Swelling in the ankles, Chest pain and Increased palpitations (irregular heartbeat) Follow Up Care Test Results: Test results from this visit will be discussed in further detail at your follow-up appointment, if applicable. Discharge Plan Admission Admit Date/Time: 11/06/24 03:49 Attending Provider: Dov Mccoy Primary Care Provider: Eliel Mosley [facility] Consulting Providers: Margo Sawyer; Cora Umaña Instructions Additional Instructions / Restrictions: Follow-up with primary care doctor to monitor your blood pressures and to restart Lasix and losartan at their discretion. Discharge Orders/Prescriptions Prescriptions: Continued Breztri Aerosphere 160-9-4.8 mcg/actuation HFA aerosol inhaler 2 inh inhalation BID Qty: 10.7 11RF ropinirole 0.5 MG tablet 0.5 mg PO QHS potassium chloride 20 mEq tablet,ER particles/crystals 10 meq PO DAILY ferrous sulfate 325 mg (65 mg iron) tablet 325 mg PO DAILY trazodone 150 mg tablet 150 mg PO QHS hydrocodone-acetaminophen 5-325 mg tablet 1 tab PO BID olanzapine 5 mg tablet 5 mg PO QHS fexofenadine 180 mg tablet 180 mg PO DAILY erythromycin 5 mg/gram (0.5 %) ointment 1 applic ophthalmic (eye) QHS cholecalciferol (vitamin D3) 1,250 mcg (50,000 unit) capsule 1,250 mcg PO QWEEK tamsulosin 0.4 mg capsule 0.4 mg PO Q24H ondansetron 4 mg tablet,disintegrating 4 mg PO Q8H PRN fenofibrate 54 mg tablet 54 mg PO DAILY Lactobacillus acidoph-L.bulgar [Floranex] 1 million cell tablet 1 tab PO DAILY dicyclomine 10 mg capsule 10 mg PO TIDAC Eliquis 5 mg tablet 5 mg PO BID Qty: 60 2RF Patient Comments: STOP 2 DAYS PRIOR TO OR PER ALEA FROM OFFICE clopidogrel 75 mg tablet 75 mg PO DAILY Qty: 30 11RF Patient Comments: STOP 7 DAYS PRIOR TO OR PER ALEA FROM OFFICE atorvastatin 40 mg tablet 40 mg PO QHS Qty: 90 3RF Held losartan 50 mg tablet 50 mg PO BID Hold Instructions: Resume on 11/15/24. furosemide [Lasix] 20 mg tablet 20 mg PO DAILY Hold Instructions: Resume on 11/15/24. Referrals / Follow Up: Eliel Mosley, [facility] [Primary Care Provider] - Within 1 Week Disposition Disposition (needs filled in before D/C Order can be placed): Home Health Service
[2024-11-08 11:11] VITALS: BP 106/67; PULSE 95; RESP 18; TEMP 36.6; O2SAT 95
--- NOTE | 2024-11-08 11:28 | PHA.DC.MR.R ---
Pharmacy [place] Med Reconciliation Pharmacy Service has performed discharge medication reconciliation for this patient. The patient's discharge medication list was reviewed for discrepancies and discrepancies were resolved. Medications at Discharge Home Medications ropinirole 0.5 mg tablet 0.5 mg PO QHS RESTLESS LEGS 04/23/16 budesonide 160 mcg-glycopyr 9 mcg-formot 4.8 mcg/actuation HFA inhaler (Breztri Aerosphere) 2 inh inhalation BID COPD #10.7 grams 01/28/23 potassium chloride 20 mEq tablet,extended release(part/cryst) 10 meq PO DAILY SUPPLEMENT 04/15/23 ferrous sulfate 325 mg (65 mg iron) tablet 325 mg PO DAILY SUPPLEMENT 09/02/23 furosemide 20 mg tablet (Lasix) 20 mg PO DAILY COPD 09/02/23 Held on 11/08/24. Instructions: Resume on 11/15/24. losartan 50 mg tablet 50 mg PO BID BP 11/19/23 Held on 11/08/24. Instructions: Resume on 11/15/24. apixaban 5 mg tablet (Eliquis) 5 mg PO BID BLOOD THINNER #60 tabs 12/30/23 clopidogrel 75 mg tablet 75 mg PO DAILY BLOOD THINNER #30 tabs 01/15/24 trazodone 150 mg tablet 150 mg PO QHS SLEEP 03/06/24 atorvastatin 40 mg tablet 40 mg PO QHS CHOLESTEROL #90 tabs 06/30/24 cholecalciferol (vitamin D3) 1,250 mcg (50,000 unit) capsule 1,250 mcg PO QWEEK vitamin 09/15/24 erythromycin 5 mg/gram (0.5 %) eye ointment 1 applic ophthalmic (eye) QHS infection 09/15/24 fexofenadine 180 mg tablet 180 mg PO DAILY allergies 09/15/24 hydrocodone-acetaminophen 5-325mg 5mg-325mg 1 tab PO BID pain 09/15/24 olanzapine 5 mg tablet 5 mg PO QHS sleep 09/15/24 Lactobacillus acidoph-L.bulgaricus 1 million cell tablet (Floranex) 1 tab PO DAILY supplement 11/05/24 dicyclomine 10 mg capsule 10 mg PO TIDAC bowels 11/05/24 fenofibrate 54 mg tablet 54 mg PO DAILY cholesterol 11/05/24 ondansetron 4 mg disintegrating tablet 4 mg PO Q8H PRN nausea 11/05/24 tamsulosin 0.4 mg capsule 0.4 mg PO Q24H prostate 11/05/24
--- NOTE | 2024-11-08 13:57 | CASEMGMT ---
DOE Met with patient to complete DOE form. DOE form and its content were verbally explained and patient's questions were answered to the best of my ability.? Patient voiced understanding and signed DOE form.? Patient provided a copy of signed DOE form and original placed in patient's chart.? Patient had no further questions. Damaris Cassidy, Discharge Planning Asst
--- NOTE | 2024-11-08 15:55 | CHAPLAIN ---
Type of Pastoral Visit _x__ Initial Visit ___ Follow-up Visit ___ On-call Visit ___ General Patient Visit ___ Spiritual Assessment ___ Family Conference ___ Bereavement ___ Rapid Response ___ Code Blue ___ Other (describe below) Pastoral Care Referral From _x__ Patient ___ Family ___ Nurse ___ Physician ___ Cooling Tower Technician ___ Slitter Scorer Cut Off Operator ___ Other (describe below) Sacrament/Intervention _x__ Active listening ___ Anointing ___ Oriental Orthodox ___ Bereavement ___ Communion ___ Kelsey exploration ___ ___ Life review _x__ Prayer ___ Reconciliation ___ Sacrament of Sick _x__ Supportive presence ___ Wedding ___ Other (describe below) Pastoral Comments patient immediately recognizes this campaign consultant from previous visits in the past years; pt gives update on his concerns and health issues; pt has taken a fall but hopes that home therapy will give him more of what he needs to stay at home; pt speaks of knowing God in his life and how he knows God will help him now; pt expresses appreciation for the visit and asks for another prayer
--- NOTE | 2024-11-08 16:00 | DS.PCM_ITS ---
Providers Date of Admission: 11/06/24 Primary Care Physician: HUE WaldenC Reason For Visit: FALL DIZZINESS Diagnosis Discharge Diagnosis (1) Acute renal insufficiency: Status: Acute Code(s): N28.9 - Disorder of kidney and ureter, unspecified (2) Contusion of scalp: Status: Acute Code(s): S00.03XA - Contusion of scalp, initial encounter (3) Syncope: Status: Acute Code(s): R55 - Syncope and collapse Medications at Discharge Home Medications ropinirole 0.5 mg tablet 0.5 mg PO QHS RESTLESS LEGS 04/23/16 budesonide 160 mcg-glycopyr 9 mcg-formot 4.8 mcg/actuation HFA inhaler (Breztri Aerosphere) 2 inh inhalation BID COPD #10.7 grams 01/28/23 potassium chloride 20 mEq tablet,extended release(part/cryst) 10 meq PO DAILY SUPPLEMENT 04/15/23 ferrous sulfate 325 mg (65 mg iron) tablet 325 mg PO DAILY SUPPLEMENT 09/02/23 furosemide 20 mg tablet (Lasix) 20 mg PO DAILY COPD 09/02/23 Held on 11/08/24. Instructions: Resume on 11/15/24. losartan 50 mg tablet 50 mg PO BID BP 11/19/23 Held on 11/08/24. Instructions: Resume on 11/15/24. apixaban 5 mg tablet (Eliquis) 5 mg PO BID BLOOD THINNER #60 tabs 12/30/23 clopidogrel 75 mg tablet 75 mg PO DAILY BLOOD THINNER #30 tabs 01/15/24 trazodone 150 mg tablet 150 mg PO QHS SLEEP 03/06/24 atorvastatin 40 mg tablet 40 mg PO QHS CHOLESTEROL #90 tabs 06/30/24 cholecalciferol (vitamin D3) 1,250 mcg (50,000 unit) capsule 1,250 mcg PO QWEEK vitamin 09/15/24 erythromycin 5 mg/gram (0.5 %) eye ointment 1 applic ophthalmic (eye) QHS infection 09/15/24 fexofenadine 180 mg tablet 180 mg PO DAILY allergies 09/15/24 hydrocodone-acetaminophen 5-325mg 5mg-325mg 1 tab PO BID pain 09/15/24 olanzapine 5 mg tablet 5 mg PO QHS sleep 09/15/24 Lactobacillus acidoph-L.bulgaricus 1 million cell tablet (Floranex) 1 tab PO DAILY supplement 11/05/24 dicyclomine 10 mg capsule 10 mg PO TIDAC bowels 11/05/24 fenofibrate 54 mg tablet 54 mg PO DAILY cholesterol 11/05/24 ondansetron 4 mg disintegrating tablet 4 mg PO Q8H PRN nausea 11/05/24 tamsulosin 0.4 mg capsule 0.4 mg PO Q24H prostate 11/05/24 Hospital Course Operations None Procedures 2-D Echocardiogram Summary of Care Provided Minutes Spent on Discharge: 31 Hospital Course: Per HPI: The patient is a 74 y/o M w/ PMHx: CKD stage II per GFR trending, Chronic anemia/Fe deficiency anemia, Chronic migraines, Former tobacco use, Anxiety and Depression/Bipolar disorder/Schizophrenia, Diabetes mellitus type II, MONIQUE, Chronic anemia, COPD/Asthma, Hx VTE (DVT, PE), Frequent Falls, GERD w/ PUD, Rheumatoid arthritis, HTN, HLD, Dementia unclear type with unclear behavioral disturbance history, RLS, CAD s/p PCI who presents to the [facility] ED on 11/06/24 with history of dizziness with associated fall with head trauma with associated loss of consciousness but complaining of mild headache, neck discomfort with laceration of the left forehead as well as right shoulder prompting EMS call and transition to the hospital for evaluation. Workup in the ED included T97.9, heart rate 77, BP 100/61, respiratory rate 18, 95% on room air, CBC with WC 11.8, hemoglobin 10.4, MCV 80.2, platelet 320 with left shift, CMP with BUN/creatinine 17/1.59, GFR 45, hepatic profile unremarkable, CT brain with a left frontal scalp edema/small hematoma with no acute cerebrovascular abnormalities with bilateral cerebral microvascular ischemic changes with mild brain involutional changes that are stable, CT cervical spine with postoperative changes evident with straightened cervical lordosis denoting myospasm, mild C7 anterolisthesis, reduced bone density, cervical spinal degeneration changes multilevel and uncovertebral and facet arthropathy along with diffuse disc bulges inducing spinal canal and neural exit pathic compromise with no interval changes, CT chest without contrast with coronary artery calcification present, prior evidence of fundoplication, subsegmental atelectatic changes in the lingula, bilateral basilar atelectatic changes, osteopenia, diffuse spondylosis, unremarkable metallic prosthesis of the right shoulder, plain film of the right shoulder with no acute abnormality, EKG with sinus rhythm with frequent PVCs with no acute evidence of ischemia, urinalysis unremarkable. In the ED patient administered tetanus update, 1 L normal saline, Zofran 4 mg IV x 1, morphine 4 mg IV x 1. Hospital Course: 1. Syncope secondary to orthostatic hypotension/CLAYTON?74-year-old male presented to the hospital with syncope and was found to have orthostatic hypotension. Had an MRI of the cervical spine after his fall that demonstrated severe left foraminal stenosis at C2-C3 and C3-C4 with facet joint arthropathy with moderate canal stenosis at C2-C3. Most discussed with him to follow-up with outpatient surgery if he would be a candidate. He did have an echocardiogram during this admission that demonstrated an EF of 60% with no diastolic dysfunction. Syncope and orthostatic hypotension resolved, his blood pressure medications were held on discharge for a few days and pending outpatient follow-up to monitor what his blood pressure is and to determine whether or not to reinitiate treatment. I discussed with him the plan for discharge today and he expressed understanding the risk and benefits of going home and would like to go home today with home health service. Of note his CLAYTON resolved on discharge and returned to baseline. 2. Type 2 diabetes, COPD, coronary artery disease status post PCI, history of PE, essential hypertension, MONIQUE, restless leg syndrome, BPH with obstruction, anxiety, depression, hyperlipidemia are all chronic medical conditions which complicate his care. His home medications were continued where appropriate Physical Exam Narrative General: Alert, Oriented x3, Cooperative, No apparent distress HEENT: Atraumatic, PERRLA, EOMI, Normocephalic Oral: Moist Mucosa Neck: Supple, No JVD Lungs: Diminished, Normal air movement, No rhonchi, No wheeze, No rales Cardiovascular: Regular rate, Regular Rhythm, Normal S1, Normal S2, No murmurs Abdomen: Soft, Non Tender, Non-Distended, No Hepato-splenomegaly Extremities: No edema, Capillary Refill Less than 3 Seconds Skin: No rashes, No breakdown Musculoskeletal: No Tenderness to Palpation of Joints or Extremities Neurological: No focal neurological deficits, Motor Exam 5/5 strength throughout, Sensory exam intact to light touch and pain Psych/Mental Status: Normal Affect, Appropriate Weight / BMI Weight Weight: 162 lb 14.746 oz Body Mass Index (BMI) 22.1 ABG / Lab / Microbiology Data 11/08/24 04:52 11/08/24 04:52 Laboratory: Laboratory Results - last 24 hr 11/07/24 16:11: POC Glucose 102 11/07/24 22:40: POC Glucose 109 H 11/08/24 04:52: WBC 7.3, RBC 3.84 L, Hgb 9.8 L, Hct 31.3 L, MCV 81.5, MCH 25.5 L , MCHC 31.3 L, RDW Std Deviation 45.7 H, RDW Coeff of Tad 15.4 H, Plt Count 301, MPV 9.6, Immature Gran % (Auto) 2.700 H, Neut % (Auto) 58.7, Lymph % (Auto) 27.5, [place] % (Auto) 8.2, Eos % (Auto) 2.5, Baso % (Auto) 0.4, Absolute Neuts (auto) 4.3, Absolute Lymphs (auto) 2.02, Nucleated RBC % 0, Sodium 139, Potassium 4.1, Chloride 104, Carbon Dioxide 24.6, Anion Gap 11, BUN 17, Creatinine 1.02, Estim Creat Clear Calc 64.40, Est GFR (MDRD) Non-Af 76, BUN/Creatinine Ratio 17.0, Glucose 95, Calcium 8.9 11/08/24 06:16: POC Glucose 92 11/08/24 11:15: POC Glucose 133 H D/C Instructions Call your doctor if you observe: Fever of 101 or Higher, Shortness of breath, Dizziness, Fainting spells, Swelling in the ankles, Chest pain and Increased palpitations (irregular heartbeat) DC O2, CPAP, BIPAP Needs Home O2 Discharge instructions: No Meaningful Use Info Meaningful Use Meaningful Use Diagnoses (Choose all that apply): None applicable Discharge Plan Admission Admit Date/Time: 11/06/24 03:49 Attending Provider: Dov Mccoy Primary Care Provider: Eliel Mosley [facility] Consulting Providers: Margo Sawyer; Cora Umaña Instructions Additional Instructions / Restrictions: Follow-up with primary care doctor to monitor your blood pressures and to restart Lasix and losartan at their discretion. Discharge Orders/Prescriptions Prescriptions: Continued Breztri Aerosphere 160-9-4.8 mcg/actuation HFA aerosol inhaler 2 inh inhalation BID Qty: 10.7 11RF ropinirole 0.5 MG tablet 0.5 mg PO QHS potassium chloride 20 mEq tablet,ER particles/crystals 10 meq PO DAILY ferrous sulfate 325 mg (65 mg iron) tablet 325 mg PO DAILY trazodone 150 mg tablet 150 mg PO QHS hydrocodone-acetaminophen 5-325 mg tablet 1 tab PO BID olanzapine 5 mg tablet 5 mg PO QHS fexofenadine 180 mg tablet 180 mg PO DAILY erythromycin 5 mg/gram (0.5 %) ointment 1 applic ophthalmic (eye) QHS cholecalciferol (vitamin D3) 1,250 mcg (50,000 unit) capsule 1,250 mcg PO QWEEK tamsulosin 0.4 mg capsule 0.4 mg PO Q24H ondansetron 4 mg tablet,disintegrating 4 mg PO Q8H PRN fenofibrate 54 mg tablet 54 mg PO DAILY Lactobacillus acidoph-L.bulgar [Floranex] 1 million cell tablet 1 tab PO DAILY dicyclomine 10 mg capsule 10 mg PO TIDAC Eliquis 5 mg tablet 5 mg PO BID Qty: 60 2RF Patient Comments: STOP 2 DAYS PRIOR TO OR PER ALEA FROM OFFICE clopidogrel 75 mg tablet 75 mg PO DAILY Qty: 30 11RF Patient Comments: STOP 7 DAYS PRIOR TO OR PER ALEA FROM OFFICE atorvastatin 40 mg tablet 40 mg PO QHS Qty: 90 3RF Held losartan 50 mg tablet 50 mg PO BID Hold Instructions: Resume on 11/15/24. furosemide [Lasix] 20 mg tablet 20 mg PO DAILY Hold Instructions: Resume on 11/15/24. Referrals / Follow Up: Eliel Mosley Angelito, [employer] OFFICER-C [Primary Care Provider] - Within 1 Week Disposition Disposition (needs filled in before D/C Order can be placed): Home Health Service Charges/Coding Visit Charges Inpatient E&M: 38468 Disch Hosp >30min
== END 2024-11-08 14:16 | disposition home health service (06) ==
LOC: ED 23:54 → PCU 11-06 04:10
PROVIDERS: Student in an Organized Health Care Education/Training Program; Admitting Provider Family Medicine; Emergency Provider Emergency Medicine; PCP Nurse Practitioner Family; Visit Provider Family Medicine
DX: I95.1 Orthostatic hypotension (principal); M06.9 Rheumatoid arthritis, unspecified; F20.9 Schizophrenia, unspecified; I13.0 Hypertensive heart and chronic kidney disease with heart failure and stage 1 through stage 4 chronic kidney disease, or unspecified chronic kidney disease; I50.9 Heart failure, unspecified; F31.9 Bipolar disorder, unspecified; F03.90 Unspecified dementia, unspecified severity, without behavioral disturbance, psychotic disturbance, mood disturbance, and anxiety; J43.9 Emphysema, unspecified; S06.9X9A Unspecified intracranial injury with loss of consciousness of unspecified duration, initial encounter; E11.22 Type 2 diabetes mellitus with diabetic chronic kidney disease; D50.9 Iron deficiency anemia, unspecified; J98.11 Atelectasis; I25.10 Atherosclerotic heart disease of native coronary artery without angina pectoris; Z86.718 Personal history of other venous thrombosis and embolism; M48.02 Spinal stenosis, cervical region; S01.81XA Laceration without foreign body of other part of head, initial encounter; Z86.711 Personal history of pulmonary embolism; Z87.891 Personal history of nicotine dependence; E78.00 Pure hypercholesterolemia, unspecified; N17.9 Acute kidney failure, unspecified; Z79.01 Long term (current) use of anticoagulants; R53.81 Other malaise; G47.33 Obstructive sleep apnea (adult) (pediatric); E66.9 Obesity, unspecified; M47.812 Spondylosis without myelopathy or radiculopathy, cervical region; N18.2 Chronic kidney disease, stage 2 (mild); Y93.01 Activity, walking, marching and hiking; W19.XXXA Unspecified fall, initial encounter; N40.1 Benign prostatic hyperplasia with lower urinary tract symptoms; N13.8 Other obstructive and reflux uropathy; F41.9 Anxiety disorder, unspecified; F32.A Depression, unspecified; E44.0 Moderate protein-calorie malnutrition; Z68.22 Body mass index [BMI] 22.0-22.9, adult
CPT/HCPCS: 36415; 70450; 71250; 72125; 72141; 73030; 80048; 80053; 81001; 82962; 83735; 84100; 84484; 85025; 90715; 93005; 93306; 94640; 94668; 96361; 96374; 96375; 96376; 97116; 97161; 97165; 97530; 97535; 97802; 99221; 99285; A4216; G0378; J2405

== ENCOUNTER → 2024-11-11 | Outpatient (CLI) | payer MEDICARE, MEDICAID, SELFPAY ==
[2024-05-27 11:10] VITALS: BMI 21.8
[2024-11-11 16:16] LABS: Anion Gap 10 (5-15); BUN 12 mg/dL (4-19); BUN/Creat Ratio 11.9 RATIO (10-20); Calcium,Total 9.3 mg/dL (7.6-11.0); Carbon Dioxide 24.6 mmol/L (21.0-32.0); Chloride 107 mmol/L (98-108); Glucose 100 mg/dL (70-99); Magnesium 1.9 mg/dL (1.5-2.2); Potassium 5.1 mmol/L (3.3-5.1)
== END | disposition home or self-care (01) ==
LOC: LAB 13:53
PROVIDERS: Nurse Practitioner Gerontology; PCP Nurse Practitioner Family
DX: I10 Essential (primary) hypertension (principal)
CPT/HCPCS: 36415; 80048; 83735

== ENCOUNTER → 2024-12-02 | Outpatient (CLI) | payer MEDICARE, MEDICAID, SELFPAY ==
[2024-05-27 11:10] VITALS: BMI 21.8
[2024-12-02 14:46] LABS: Hematocrit 34.0 % (40-54); Hemoglobin 10.6 g/dL (13.0-16.5); Immature Granulocytes Count 0.070 X10^3/uL (0.0-0.0); Mean Corp Hgb Conc 31.2 g/dL (32-36); Mean Corpuscular Volume 84.2 fL (80-94); Mean Platelet Vol. 10.1 fl (6.2-12.0); NRBC Flagged by Analyzer 0 % (0-5); Platelet Count 271 K/mm3 (150-450); RBC Distribution Width CV 16.8 % (11.6-14.6); RBC Distribution Width SD 51.0 fl (35.1-43.9); Red Blood Count 4.04 M/mm3 (4.6-6.2); White Blood Count 9.6 K/mm3 (4.4-11.0)
[2024-12-02 15:25] LABS: Anion Gap 11 (5-15); BUN 15 mg/dL (4-19); BUN/Creat Ratio 12.1 RATIO (10-20); Calcium,Total 8.7 mg/dL (7.6-11.0); Carbon Dioxide 22.6 mmol/L (21.0-32.0); Chloride 108 mmol/L (98-108); Glucose 87 mg/dL (70-99); Potassium 4.1 mmol/L (3.3-5.1)
== END | disposition home or self-care (01) ==
LOC: LAB 14:10
PROVIDERS: PCP Nurse Practitioner Family; Referring Provider Nurse Practitioner Gerontology; Visit Provider Nurse Practitioner Gerontology
DX: R19.7 Diarrhea, unspecified (principal); K58.9 Irritable bowel syndrome, unspecified; R53.83 Other fatigue
CPT/HCPCS: 36415; 80048; 84443; 85025

== ENCOUNTER 2024-12-27 17:27 | Emergency (ER) | payer MEDICARE, MEDICAID, SELFPAY ==
[2024-05-27 11:10] VITALS: BMI 21.8
[2024-12-27 17:27] VITALS: BP 147/89; PULSE 78; RESP 20; TEMP 36.6; O2SAT 100; BMI 18.8
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
[2024-12-27 18:34] LABS: Hematocrit 36.1 % (40-54); Hemoglobin 11.7 g/dL (13.0-16.5); Immature Granulocytes Count 0.020 X10^3/uL (0.0-0.0); Mean Corp Hgb Conc 32.4 g/dL (32-36); Mean Corpuscular Volume 82.6 fL (80-94); Mean Platelet Vol. 9.7 fl (6.2-12.0); NRBC Flagged by Analyzer 0 % (0-5); Platelet Count 257 K/mm3 (150-450); RBC Distribution Width CV 15.7 % (11.6-14.6); RBC Distribution Width SD 47.7 fl (35.1-43.9); Red Blood Count 4.37 M/mm3 (4.6-6.2); White Blood Count 7.3 K/mm3 (4.4-11.0)
[2024-12-27 18:42] LABS: Alcohol, Blood (Medical)-Serum < 10.1 mg/dL (<=10.0)
[2024-12-27 18:43] LABS: Anion Gap 13 (5-15); BUN 10 mg/dL (4-19); BUN/Creat Ratio 8.9 RATIO (10-20); Calcium,Total 8.3 mg/dL (7.6-11.0); Carbon Dioxide 22.9 mmol/L (21.0-32.0); Chloride 100 mmol/L (98-108); Estimated Creatinine Clearance 49.40 ml/min (50-250); Glucose 116 mg/dL (70-99); Potassium 3.6 mmol/L (3.3-5.1)
[2024-12-27 19:10] LABS: Barbiturate Urine NEGATIVE (< 200 ng/mL); Benzodiazepine Urine NEGATIVE (< 200 ng/mL); PCP Urine NEGATIVE (< 25 ng/mL); THC Urine PRESUMPTIVE POSITIVE (< 50 ng/mL)
--- NOTE | 2024-12-27 20:50 | CM.ED ---
Social work SW called Crisis (ph: [phone]) and spoke with Edgard. Edgard stated after patient is medically cleared, patient will be referred to [facility] and [facility]. This information was passed on to order schedule clerk Kim and Cardiovascular Technologist Sallie. No further needs identified at this time for SW. Melissa Damon, BASS MECHANISM MAKER, WIND ENERGY ENGINEER
--- NOTE | 2024-12-27 22:02 | PCA ---
pt declined at [facility] due to acuity @ 2157.
--- NOTE | 2024-12-27 23:01 | PCA ---
Pt declined at [facility] due to acuity at 2258. Pt referred to [facility].
[2024-12-28 01:14] VITALS: PULSE 69; RESP 18; O2SAT 94
[2024-12-28 06:48] VITALS: BP 132/60; PULSE 72; RESP 18; TEMP 36.6; O2SAT 98
== END 2024-12-28 09:30 ==
LOC: ED 18:24
PROVIDERS: Emergency Provider Emergency Medicine; PCP Nurse Practitioner Family; Visit Provider Emergency Medicine
DX: R45.851 Suicidal ideations (principal); M06.9 Rheumatoid arthritis, unspecified; F20.9 Schizophrenia, unspecified; I50.9 Heart failure, unspecified; I11.0 Hypertensive heart disease with heart failure; F31.9 Bipolar disorder, unspecified; J44.9 Chronic obstructive pulmonary disease, unspecified; E11.9 Type 2 diabetes mellitus without complications; K58.9 Irritable bowel syndrome, unspecified; Z91.51 Personal history of suicidal behavior; Z91.148 Patient's other noncompliance with medication regimen for other reason; D64.9 Anemia, unspecified; I25.2 Old myocardial infarction; K21.9 Gastro-esophageal reflux disease without esophagitis; F41.9 Anxiety disorder, unspecified; E78.00 Pure hypercholesterolemia, unspecified; G25.81 Restless legs syndrome; G47.33 Obstructive sleep apnea (adult) (pediatric); Z79.01 Long term (current) use of anticoagulants; Z79.02 Long term (current) use of antithrombotics/antiplatelets; Z79.51 Long term (current) use of inhaled steroids; Z86.711 Personal history of pulmonary embolism; Z86.718 Personal history of other venous thrombosis and embolism; Z79.899 Other long term (current) drug therapy; Z87.891 Personal history of nicotine dependence
CPT/HCPCS: 80048; 80307; 82077; 85025; 99284

== ENCOUNTER → 2025-01-11 | Outpatient (CLI) | payer MEDICARE, MEDICAID, SELFPAY ==
[2024-05-27 11:10] VITALS: BMI 21.8
--- NOTE | 2025-01-13 20:05 | STRESSREP_ITS ---
Stress Test Report
--- NOTE | 2025-01-13 20:05 | STRESSREP ---
Stress Test Report Pharmacologic myocardial perfusion stress test. 74-year-old male with a history of chest pain. Resting EKG demonstrates normal sinus rhythm with a rate of 77 bpm. Resting blood pressure is 118/80 mmHg. 0.4 mg of regadenoson was infused per usual protocol followed by rapid intravenous saline flush injection. Continuous EKG monitoring was performed. The maximum heart rate was 101 bpm which was 70% of max impacted heart rate the maximum workload was 1 metabolic equivalent. At rest there were no ST or T wave changes noted to suggest ischemia and at peak infusion nonspecific ST changes were noted which did not meet the criteria for ischemia. No clinical angina is noted. The final blood pressure was 126/76 mmHg. Myocardial perfusion protocol. 10.9 mCi of technetium 99m sestamibi was injected at rest. 0.4 mg of regadenoson was infused per usual protocol. At peak infusion 36 mCi of technetium 99m sestamibi was injected stress images were obtained stress and rest images were reconstructed and compared in the short axis vertical long and horizontal long axis. Gated images were also obtained. Perfusion SPECT analysis: Review of the stress images demonstrate normal uptake of tracer noted in all areas of the myocardium. The resting images similar demonstrated normal uptake of tracer noted in all areas of the myocardium. No areas of reversibility are noted to suggest ischemia and no previous infarct is noted. Gated SPECT analysis: The gated ejection fraction is 62 %. Conclusion: Normal pharmacologic myocardial perfusion stress test. Preserved ejection fraction.
== END | disposition home or self-care (01) ==
LOC: CVS 06:53
PROVIDERS: PCP Nurse Practitioner Family; Referring Provider Nurse Practitioner Gerontology; Visit Provider Nurse Practitioner Gerontology
DX: R07.9 Chest pain, unspecified (principal); R53.83 Other fatigue
CPT/HCPCS: 78452; 93017; A9500; A4216; J2785

== ENCOUNTER 2025-02-01 14:51 | Emergency (ER) | payer MEDICARE, MEDICAID, SELFPAY ==
[2024-05-27 11:10] VITALS: BMI 21.8
[2025-02-01 14:52] VITALS: BP 149/91; PULSE 82; RESP 16; TEMP 36.3; O2SAT 98; BMI 24.2
--- NOTE | 2025-02-01 15:18 | EX.ED.VIS.PS ---
HPI HPI - Psych History of Present Illness Chief Complaint: Suicidal Informant: patient Onset/Context/Timing Onset: Days Context: Gradual Onset Conflict: Family Timing: Continuous Current Severity: Moderate Maximum Severity: Moderate Associated Symptoms Associated Symptoms - Psych: Positive for Depressed and Suicidal Thoughts Specific plan (suicidal thought): Overdose or car crash. Narrative Narrative: 74-year-old male history diabetes, DVT on Eliquis, hypertension and bipolar. States has been taking his medications. He is evaluated and treated by the counseling center. States he has a nephew who is terminally ill on hospice. Is getting more depressed. He is having suicidal thoughts. He was admitted about a month ago to a psychiatric facility in [place]. Patient denies an actual attempt this time but states he does been considering overdosing or crashing his car. He has had attempts in the past. Prior similar symptoms: Yes Recent Illness/Hospitalization: Yes PFSH [facility] Medical History History of steroid therapy Diabetes Walker as ambulation aid History of renal disease Anemia Excessive bleeding Injury of head and neck History of ulceration Gastric reflux Sleep apnea History of pain when walking Cardiology follow-up encounter History of irregular heartbeat Asthma DVT (deep venous thrombosis) Frequent falls Multiple contusions Head injury Adult failure to thrive Schizophrenia Primary osteoarthritis, right shoulder Severe malnutrition Adult failure to thrive Localized osteoarthritis of right knee Pulmonary embolism Ventral hernia, recurrent Rheumatoid arthritis Chronic pain Kidney disease Congestive heart failure (CHF) Complete rotator cuff tear Marijuana use Shoulder impingement SLAP tear of shoulder Acromioclavicular joint arthritis Essential hypertension (08/02/20) Chronic obstructive lung disease (08/02/20) Malaise and fatigue (08/02/20) Low back pain (03/01/11) Displacement of lumbar intervertebral disc without myelopathy (03/01/11) Brachial neuritis (05/31/11) Wears glasses Dementia Alcohol use Ambulates with cane Arthritis Prostate disease High cholesterol Back pain History of IBS Emphysema, unspecified History of stress test History of echocardiogram Osteoarthritis of left knee Bipolar disorder Diabetes GERD (gastroesophageal reflux disease) Former smoker COPD (chronic obstructive pulmonary disease) Myocardial infarct Hypertension Migraines Cervical spondylosis Cervical radiculitis Partial tear of right rotator cuff Essential (primary) hypertension Smoking greater than 40 pack years Dementia PVCs (premature ventricular contractions) Lung nodule < 6cm on CT Cannabis dependence DDD (degenerative disc disease) BPH (benign prostatic hyperplasia) Anxiety Depression Atherosclerotic heart disease of [place] coronary artery without angina pectoris Hyperlipidemia Trigger finger MONIQUE (obstructive sleep apnea) Stage 2 moderate COPD by GOLD classification Peptic ulcer disease Restless leg syndrome Schizophrenia Asthma History of pulmonary embolism Home Medications ?Medication ?Instructions ?Recorded ?Last Taken ?Type ropinirole 0.5 mg tablet 0.5 mg PO QHS RESTLESS LEGS 04/23/16 11/05/24 09:00 History budesonide 160 mcg-glycopyr 9 2 inh inhalation BID COPD #10.7 01/28/23 11/05/24 09:00 Rx mcg-formot 4.8 mcg/actuation HFA grams inhaler (Breztri Aerosphere) potassium chloride 20 mEq 20 meq PO DAILY SUPPLEMENT 04/15/23 12/27/24 History tablet,extended release(part/cryst) ferrous sulfate 325 mg (65 mg 325 mg PO DAILY SUPPLEMENT 09/02/23 12/27/24 History iron) tablet apixaban 5 mg tablet (Eliquis) 5 mg PO BID BLOOD THINNER #60 tabs 12/30/23 12/27/24 Rx trazodone 150 mg tablet 150 mg PO QHS SLEEP 03/06/24 12/26/24 History atorvastatin 40 mg tablet 40 mg PO QHS CHOLESTEROL #90 tabs 06/30/24 12/26/24 Rx fexofenadine 180 mg tablet 180 mg PO DAILY allergies 09/15/24 11/04/24 21:00 History hydrocodone-acetaminophen 5-325mg 1 tab PO BID pain 09/15/24 11/05/24 09:00 History 5mg-325mg olanzapine 5 mg tablet 5 mg PO QHS sleep 09/15/24 12/26/24 History desvenlafaxine succinate 100 mg 200 mg PO QHS 12/27/24 12/26/24 History tablet,extended release 24 hr clopidogrel 75 mg tablet 75 mg PO DAILY BLOOD THINNER #30 01/24/25 Unknown Rx tabs Allergy/AdvReac Type Severity Reaction Status Date / Time Quinolones Allergy Unknown unknown Verified 02/01/25 14:55 aspirin Allergy Itching, Verified 02/01/25 14:55 Hives levofloxacin (From Levaquin) Allergy Hives, Verified 02/01/25 14:55 Itching Penicillins Allergy Hives, Verified 02/01/25 14:55 Itching Family History Mother CAD (coronary artery disease) Sister Diabetes Father Alcoholism Surgical History History of cardiac catheterization Hx of total shoulder replacement History of cholecystectomy History of coronary artery stent placement History of right shoulder replacement Hx of colonoscopy S/P right rotator cuff repair Hx of repair of right rotator cuff (06/04/22) H/O left knee surgery History of laparoscopic cholecystectomy History of appendectomy H/O cervical spine surgery H/O ventral hernia repair History of left heart catheterization (04/2016) History of coronary artery stent placement (10/16/18) Social History household members: none housing: house current occupational status: disabled Smoking Status: Never smoker how long ago did patient quit smokin years ago second hand exposure: Yes alcohol intake: former details: Quit 9 years ago substance use type: marijuana caffeine: Yes Type: coffee what type of physical activity do you participate in: none seatbelt use: always do you feel safe at home: Yes ROS ROS ED ROS Narrative Denies recent illness. Chronic diarrhea with a history of IBS. Constitutional Constitutional ED: Denies chills or fever(s) Eyes Eyes: Denies blurry vision ENT ENT ED: Denies ear pain Cardiovascular Cardiovascular: Denies chest pain Respiratory/Chest Respiratory/Chest: Denies cough or dyspnea Gastrointestinal Gastrointestinal: Reports diarrhea; Denies abdominal pain, nausea or vomiting Genitourinary Genitourinary ED: Denies dysuria or hematuria Musculoskeletal Musculoskeletal: Denies arthralgias Integumentary Denies abscess Neurologic Neurologic: Denies headache(s) Psychiatric Psychiatric: Reports depression, suicidal ideation and suicidal thoughts; Denies anxiety Endocrine Endocrinology: Denies polydipsia or polyphagia Hematologic/Lymphatic Hematologic/Lymphatic: Denies lymphadenopathy Allergic/Immunologic Allergic/Immunologic ED: Denies mouth swelling, tongue swelling or urticaria EXAM Physical Exam Narrative Exam Narrative: 74-year-old male sitting upright in bed. Currently calm and collected. Cooperative. Vital signs are stable afebrile. No acute distress. Makes eye contact. Answering questions involving commands. He [facility] EENT exam pupils round react light. Moist rehemorrhage. No signs of traumaor scalp. Neck nontender. Lungs clear to auscultation bilaterally. Heart rate about 80 no murmur. Chest wall ribs nontender. Abdomen soft nontender. Back nontender. Moving all 4 extremities. No focal motor deficits. No edema. Neurologically he is awake alert. He is answering questions and following commands. Const Vital Signs: 02/01/25 14:52 Temperature 97.4 F L Temperature Source Oral Pulse Rate 82 Respiratory Rate 16 Blood Pressure 149/91 H Blood Pressure Mean 110 Pulse Ox 98 Oxygen Delivery Method Room Air MDM MDM MDM Narrative Medical decision making narrative: 74-year-old male history of bipolar been taking his meds sees the counseling center states he is depressed and suicidal again. He is having thoughts of either overdosing or crashing his car. He did have a psychiatric admission a month ago. Although through an ED mental health evaluation. He has been medically cleared and crisis for placement. They have evaluated him prior to arrival. Repeat exam patient doing well at 4:44 PM. Awaiting psychiatric admission. History & Record Review Discussion w/independent historian: Patient Additional record(s) reviewed:: Prior inpatient record, Prior outpatient record, Prior ED visit and Prior labs Lab Data Attestation: I reviewed the patient's lab results. Lab results narrative: CBC has a white count 9.1. H&H of 12 and 37.6. Platelets 234. Consistent with prior. Chemistry shows sodium 144. Potassium 3.2. Gap 12. Normal BUN and creatinine of 10 and 1. Glucose 101. Alcohol less than 10. Labs: Laboratory Results - last 24 hr 02/01/25 15:18 WBC 9.1 RBC 4.46 L Hgb 12.0 L Hct 37.6 L MCV 84.3 MCH 26.9 L MCHC 31.9 L RDW Std Deviation 46.6 H RDW Coeff of Tad 15.1 H Plt Count 234 MPV 9.5 Immature Gran % (Auto) 0.300 Neut % (Auto) 71.5 H Lymph % (Auto) 19.5 [place] % (Auto) 6.8 Eos % (Auto) 1.5 Baso % (Auto) 0.4 Absolute Neuts (auto) 6.5 Absolute Lymphs (auto) 1.78 Nucleated RBC % 0 Sodium 144 Potassium 3.2 L Chloride 108 Carbon Dioxide 23.8 Anion Gap 12 BUN 10 Creatinine 1.00 Estim Creat Clear Calc 68.98 Est GFR (MDRD) Non-Af 78 BUN/Creatinine Ratio 10.0 Glucose 101 H Calcium 8.9 Ethyl Alcohol < 10.1 Discharge Plan Triage Chief Complaint: Suicidal ED Provider: David Valentino Dx/Rx/DC Orders Clinical Impression: Depression, Suicidal ideation, History of bipolar disorder, History of atrial fibrillation, Chronic anticoagulation Prescriptions: No Action Breztri Aerosphere 160-9-4.8 mcg/actuation HFA aerosol inhaler 2 inh inhalation BID Qty: 10.7 11RF ropinirole 0.5 MG tablet 0.5 mg PO QHS potassium chloride 20 mEq tablet,ER particles/crystals 20 meq PO DAILY ferrous sulfate 325 mg (65 mg iron) tablet 325 mg PO DAILY trazodone 150 mg tablet 150 mg PO QHS hydrocodone-acetaminophen 5-325 mg tablet 1 tab PO BID olanzapine 5 mg tablet 5 mg PO QHS fexofenadine 180 mg tablet 180 mg PO DAILY desvenlafaxine succinate 100 mg tablet extended release 24 hr 200 mg PO QHS Eliquis 5 mg tablet 5 mg PO BID Qty: 60 2RF Patient Comments: STOP 2 DAYS PRIOR TO OR PER ALEA FROM OFFICE atorvastatin 40 mg tablet 40 mg PO QHS Qty: 90 3RF clopidogrel 75 mg tablet 75 mg PO DAILY Qty: 30 11RF Patient Comments: STOP 7 DAYS PRIOR TO OR PER ALEA FROM OFFICE Primary Care Provider: Eliel Mosley Referrals: Eliel Mosley, PRINTER APPRENTICE-C [Primary Care Provider, Family Practice] Print Language: Nauruan Disposition Disposition: Psychiatric Hospital or Unit
[2025-02-01 15:29] LABS: Hematocrit 37.6 % (40-54); Hemoglobin 12.0 g/dL (13.0-16.5); Immature Granulocytes Count 0.030 X10^3/uL (0.0-0.0); Mean Corp Hgb Conc 31.9 g/dL (32-36); Mean Corpuscular Volume 84.3 fL (80-94); Mean Platelet Vol. 9.5 fl (6.2-12.0); NRBC Flagged by Analyzer 0 % (0-5); Platelet Count 234 K/mm3 (150-450); RBC Distribution Width CV 15.1 % (11.6-14.6); RBC Distribution Width SD 46.6 fl (35.1-43.9); Red Blood Count 4.46 M/mm3 (4.6-6.2); White Blood Count 9.1 K/mm3 (4.4-11.0)
[2025-02-01 16:03] LABS: Alcohol, Blood (Medical)-Serum < 10.1 mg/dL (<=10.0)
[2025-02-01 16:08] LABS: Anion Gap 12 (5-15); BUN 10 mg/dL (4-19); BUN/Creat Ratio 10.0 RATIO (10-20); Calcium,Total 8.9 mg/dL (7.6-11.0); Carbon Dioxide 23.8 mmol/L (21.0-32.0); Chloride 108 mmol/L (98-108); Estimated Creatinine Clearance 68.98 ml/min (50-250); Glucose 101 mg/dL (70-99); Potassium 3.2 mmol/L (3.3-5.1)
--- NOTE | 2025-02-01 17:03 | PCA ---
FAXED OVER ALL THE INFO TO [facility]IS AT [id number]
[2025-02-01 19:16] VITALS: BP 122/70; PULSE 78; RESP 18; TEMP 36.8; O2SAT 98
[2025-02-01 19:37] LABS: Barbiturate Urine NEGATIVE (< 200 ng/mL); Benzodiazepine Urine NEGATIVE (< 200 ng/mL); PCP Urine NEGATIVE (< 25 ng/mL); THC Urine PRESUMPTIVE POSITIVE (< 50 ng/mL)
--- NOTE | 2025-02-01 19:56 | PCA ---
Pt accepted to [facility] @194 to the geriatric unit, by JESIKA Fonseca, NtN [phone] opt. 1. [facility] is [facility]. Received call from [facility] @ 193 to inquire about pt, but did not give formal acceptance. Called back @ 2005 to inform them pt is accepted elsewhere. [facility] called @ 194 to accept pt, but informed them pt was already accepted elsewhere.
[2025-02-01 20:04] VITALS: BP 122/70; PULSE 78; RESP 18; TEMP 36.8; O2SAT 98
[2025-02-01] MEDS: APIXABAN 5 MG TABLET PO (20:34)
[2025-02-01] MEDS: OLANZapine 5 MG/TAB TAB.RAPDIS PO (20:34)
[2025-02-01] MEDS: HYDROcodone Bitartrate/Apap 5/325 Tablet PO (20:53)
== END 2025-02-01 20:57 ==
LOC: ED 15:58
PROVIDERS: Emergency Provider Emergency Medicine; PCP Nurse Practitioner Family; Visit Provider Emergency Medicine
DX: R45.851 Suicidal ideations (principal); I11.0 Hypertensive heart disease with heart failure; I50.9 Heart failure, unspecified; F31.9 Bipolar disorder, unspecified; F03.90 Unspecified dementia, unspecified severity, without behavioral disturbance, psychotic disturbance, mood disturbance, and anxiety; J43.9 Emphysema, unspecified; I48.91 Unspecified atrial fibrillation; E11.9 Type 2 diabetes mellitus without complications; I25.10 Atherosclerotic heart disease of native coronary artery without angina pectoris; Z86.711 Personal history of pulmonary embolism; Z63.8 Other specified problems related to primary support group; Z86.718 Personal history of other venous thrombosis and embolism; E78.00 Pure hypercholesterolemia, unspecified; Z79.01 Long term (current) use of anticoagulants; K21.9 Gastro-esophageal reflux disease without esophagitis; Z79.02 Long term (current) use of antithrombotics/antiplatelets; Z79.899 Other long term (current) drug therapy
CPT/HCPCS: 80048; 80307; 82077; 85025; 99285

== ENCOUNTER 2025-02-14 13:44 | Emergency (ER) | payer MEDICARE, MEDICAID, SELFPAY ==
[2024-05-27 11:10] VITALS: BMI 21.8
[2025-02-14 13:45] VITALS: BP 141/83; PULSE 87; RESP 18; TEMP 36.3; O2SAT 98; BMI 24.4
--- NOTE | 2025-02-14 14:27 | EKG12_ITS ---
Test Reason : Blood Pressure : */* mmHG Vent. Rate : 75 BPM Atrial Rate : 75 BPM P-R Int : 168 ms QRS Dur : 92 ms QT Int : 406 ms P-R-T Axes : 39 19 27 degrees QTcB Int : 453 ms Sinus rhythm with occasional Premature ventricular complexes Otherwise normal ECG Confirmed by Reagan De La Cruz ([id number]), video tape editor SAMMY PRADO ([id number]) on 02/16/2025 8:40:04 AM Referred By: Confirmed By: Reagan De La Cruz
[2025-02-14 14:45] LABS: Hematocrit 34.8 % (40-54); Hemoglobin 11.4 g/dL (13.0-16.5); Immature Granulocytes Count 0.030 X10^3/uL (0.0-0.0); Mean Corp Hgb Conc 32.8 g/dL (32-36); Mean Corpuscular Volume 83.3 fL (80-94); Mean Platelet Vol. 9.6 fl (6.2-12.0); NRBC Flagged by Analyzer 0 % (0-5); Platelet Count 247 K/mm3 (150-450); RBC Distribution Width CV 14.5 % (11.6-14.6); RBC Distribution Width SD 44.1 fl (35.1-43.9); Red Blood Count 4.18 M/mm3 (4.6-6.2); White Blood Count 6.5 K/mm3 (4.4-11.0)
--- NOTE | 2025-02-14 14:49 | EDS_ITS ---
HPI HPI - Psych History of Present Illness Chief Complaint: Mental Health Narrative Narrative: Chief complaint and HPI: 74-year-old gentleman with past medical history of diabetes, depression, bipolar disorder, COPD, HTN, anxiety presents for evaluation of suicidal ideation. Patient states he recently lost his nephew. States that since losing his nephew he has been depressed with suicidal ideation. At 7 PM yesterday evening took 7-8 trazodone in an attempt to end his life. States he slept for a long time but otherwise is asymptomatic. Call the counseling center who referred him to the emergency department. He continues to endorse suicidal ideation. Denies any homicidal ideation. Denies any visual or auditory hallucinations. Denies any fever, chills, shortness of breath, chest pain abdominal pain, nausea, vomiting. Review of systems: See HPI Medications: As listed on the chart Allergies: As listed on the chart PFSH: Per chart Vital signs: As listed on the chart. Reviewed. Physical exam: Gen: A&O x3, NAD but intermittently tearful Head: Normocephalic, atraumatic Eyes: No sclera icterus, conjunctiva clear, PERRL, EOMI ENT: Moist mucous membranes CV: RRR, no murmurs Resp: Lungs CTA BL, no w/r/c GI: Abd soft, non-distended, non-tender, no r/r/g Musc: Full ROM, no deformity Skin: Warm, dry Neuro: Alert, oriented, grossly intact, sensation intact Psych: Cooperative [facility] Medical History History of steroid therapy Diabetes Walker as ambulation aid History of renal disease Anemia Excessive bleeding Injury of head and neck History of ulceration Gastric reflux Sleep apnea History of pain when walking Cardiology follow-up encounter History of irregular heartbeat Asthma DVT (deep venous thrombosis) Frequent falls Multiple contusions Head injury Adult failure to thrive Schizophrenia Primary osteoarthritis, right shoulder Severe malnutrition Adult failure to thrive Localized osteoarthritis of right knee Pulmonary embolism Ventral hernia, recurrent Rheumatoid arthritis Chronic pain Kidney disease Congestive heart failure (CHF) Complete rotator cuff tear Marijuana use Shoulder impingement SLAP tear of shoulder Acromioclavicular joint arthritis Essential hypertension (08/02/20) Chronic obstructive lung disease (08/02/20) Malaise and fatigue (08/02/20) Low back pain (03/01/11) Displacement of lumbar intervertebral disc without myelopathy (03/01/11) Brachial neuritis (05/31/11) Wears glasses Dementia Alcohol use Ambulates with cane Arthritis Prostate disease High cholesterol Back pain History of IBS Emphysema, unspecified History of stress test History of echocardiogram Osteoarthritis of left knee Bipolar disorder Diabetes GERD (gastroesophageal reflux disease) Former smoker COPD (chronic obstructive pulmonary disease) Myocardial infarct Hypertension Migraines Cervical spondylosis Cervical radiculitis Partial tear of right rotator cuff Essential (primary) hypertension Smoking greater than 40 pack years Dementia PVCs (premature ventricular contractions) Lung nodule < 6cm on CT Cannabis dependence DDD (degenerative disc disease) BPH (benign prostatic hyperplasia) Anxiety Depression Atherosclerotic heart disease of [place] coronary artery without angina pectoris Hyperlipidemia Trigger finger MONIQUE (obstructive sleep apnea) Stage 2 moderate COPD by GOLD classification Peptic ulcer disease Restless leg syndrome Schizophrenia Asthma History of pulmonary embolism Home Medications ?Medication ?Instructions ?Recorded ?Last Taken ?Type ropinirole 0.5 mg tablet 0.5 mg PO QHS RESTLESS LEGS 04/23/16 11/05/24 09:00 History budesonide 160 mcg-glycopyr 9 2 inh inhalation BID ENVIRONMENTAL TECHNOLOGY PROFESSOR D #10.7 01/28/23 11/05/24 09:00 Rx mcg-formot 4.8 mcg/actuation HFA grams inhaler (Breztri Aerosphere) potassium chloride 20 mEq 20 meq PO DAILY SUPPLEMENT 0 04/15/23 12/27/24 History tablet,extended release(part/cryst) ferrous sulfate 325 mg (65 mg 325 mg PO DAILY SUPPLEME NT 09/02/23 12/27/24 History iron) tablet apixaban 5 mg tablet (Eliquis) 5 mg PO BID BLOOD THINN ER #60 tabs 12/30/23 12/27/24 Rx atorvastatin 40 mg tablet 40 mg PO QHS CHOLESTEROL #90 tabs 06/30/24 12/26/24 Rx fexofenadine 180 mg tablet 180 mg PO DAILY allergies 0 09/15/24 11/04/24 21:00 History hydrocodone-acetaminophen 5-325mg 1 tab PO BID pain 11/05/24 09:00 History 5mg-325mg olanzapine 5 mg tablet 5 mg PO QHS sleep 09/15/24 1 History desvenlafaxine succinate 100 mg 200 mg PO QHS 12/27/24 12/26/24 History tablet,extended release 24 hr clopidogrel 75 mg tablet 75 mg PO DAILY BLOOD THINNER #30 01/24/25 Unknown Rx tabs albuterol sulfate 2.5 mg/3 mL mg 02/14/25 Unknown Hist ory (0.083 %) solution for nebulization mirtazapine 15 mg tablet 15 mg PO QHS 02/14/25 Unknow n History sertraline 25 mg tablet 25 mg PO DAILY 02/14/25 Unkn own History trazodone 100 mg tablet 100 mg PO QHS 02/14/25 Unkno wn History Allergy/AdvReac Type Severity Reaction Status Date / Time Quinolones Allergy Unknown unknown Verified 02/14/25 13:49 aspirin Allergy Itching, Verified 02/14/25 13:49 Hives levofloxacin (From Levaquin) Allergy Hives, Verified 02/14/25 13:49 Itching Penicillins Allergy Hives, Verified 02/14/25 13:49 Itching Family History Mother CAD (coronary artery disease) Sister Diabetes Father Alcoholism Surgical History History of cardiac catheterization Hx of total shoulder replacement History of cholecystectomy History of coronary artery stent placement History of right shoulder replacement Hx of colonoscopy S/P right rotator cuff repair Hx of repair of right rotator cuff (06/04/22) H/O left knee surgery History of laparoscopic cholecystectomy History of appendectomy H/O cervical spine surgery H/O ventral hernia repair History of left heart catheterization (04/2016) History of coronary artery stent placement (10/16/18) Social History household members: none housing: house current occupational status: disabled Smoking Status: Never smoker how long ago did patient quit smokin years ago second hand exposure: Yes alcohol intake: former details: Quit 9 years ago substance use type: marijuana caffeine: Yes Type: coffee what type of physical activity do you participate in: none seatbelt use: always do you feel safe at home: Yes EXAM Physical Exam Const Vital Signs: 02/14/25 13:45 02/14/25 15:12 Temperature 97.3 F L Temperature Source Temporal Pulse Rate 87 72 Respiratory Rate 18 Blood Pressure 141/83 H 127/95 H Blood Pressure Mean 102 105 Pulse Ox 98 Oxygen Delivery Method Room Air Room Air Oxygen Flow Rate (L/min) 98 MDM MDM MDM Narrative Medical decision making narrative: 74-year-old gentleman with past medical history of diabetes, depression, bipolar disorder, COPD, HTN, anxiety presents for evaluation of suicidal ideation. Patient states he recently lost his nephew. States that since losing his nephew he has been depressed with suicidal ideation. At 7 PM yesterday evening took 7- 8 trazodone in an attempt to end his life. States he slept for a long time but otherwise is asymptomatic. Call the counseling center who referred him to the emergency department. He continues to endorse suicidal ideation. Denies any homicidal ideation. Denies any visual or auditory hallucinations. Differential diagnosis includes but is not limited to suicidal ideation with attempt, depression, anxiety, electrolyte abnormality, substance abuse. Patient will require pink slip for his suicidal ideation. Patient confirmed understanding of the plan. I did contact poison control given the trazodone that he took. He would have took a total of 700 to 800 mg yesterday. Per poison control symptoms would peak at 1 to 2 hours. Observation is 4 to 6 hours. As long as he remains asymptomatic is cleared from poison control standpoint. CBC without leukocytosis. Patient has baseline anemia of 11.4. Platelet count unremarkable. CMP unremarkable. Salicylate and Tylenol level unremarkable. Urine drug screen positive for phencyclidine and cannabis. Patient is medically cleared for inpatient psychiatric placement. Patient signed out to oncoming physician pending placement. EKG: Interpreted by me/EM physician: EKG shows normal sinus rhythm with occasional PVCs. No acute ischemic changes. Heart rate 75. Normal QTc Impression: 1. Suicidal ideation with attempted overdose of trazodone 2. Depression 3. Marijuana use Lab Data Labs: Laboratory Results - last 24 hr 02/14/25 02/14/25 14:00 14:17 WBC 6.5 RBC 4.18 L Hgb 11.4 L Hct 34.8 L MCV 83.3 MCH 27.3 MCHC 32.8 RDW Std Deviation 44.1 H RDW Coeff of Tad 14.5 Plt Count 247 MPV 9.6 Immature Gran % (Auto) 0.500 Neut % (Auto) 68.8 Lymph % (Auto) 20.2 [place] % (Auto) 8.5 Eos % (Auto) 1.7 Baso % (Auto) 0.3 Absolute Neuts (auto) 4.5 Absolute Lymphs (auto) 1.31 Nucleated RBC % 0 Sodium 139 Potassium 3.3 Chloride 103 Carbon Dioxide 23.2 Anion Gap 12 BUN 6 Creatinine 1.07 Estim Creat Clear Calc 64.47 Est GFR (MDRD) Non-Af 72 BUN/Creatinine Ratio 5.3 L Glucose 105 H Calcium 9.0 Total Bilirubin 0.30 AST 15 ALT 20 Alkaline Phosphatase 124 Total Protein 6.3 Albumin 4.1 Globulin 2.2 Albumin/Globulin Ratio 1.8 Salicylates < 0.5 L Urine Opiates Screen NEGATIVE U Buprenorphine Qual NEGATIVE Ur Oxycodone Screen NEGATIVE Urine Methadone Screen NEGATIVE Urine Fentanyl Screen NEGATIVE Acetaminophen < 5.0 L Ur Barbiturates Screen NEGATIVE Ur Phencyclidine Scrn PRESUMPTIVE POSITIVE Ur Amphetamines Screen NEGATIVE U Benzodiazepines Scrn NEGATIVE Urine Cocaine Screen NEGATIVE U Cannabinoids Screen PRESUMPTIVE POSITIVE Ethyl Alcohol < 10.1 Discharge Plan Triage Chief Complaint: Mental Health ED Provider: Jesse Carrizales Dx/Rx/DC Orders Prescriptions: No Action Hermelinda Aerosphere 160-9-4.8 mcg/actuation HFA aerosol inhaler 2 inh inhalation BID Qty: 10.7 11RF ropinirole 0.5 MG tablet 0.5 mg PO QHS potassium chloride 20 mEq tablet,ER particles/crystals 20 meq PO DAILY ferrous sulfate 325 mg (65 mg iron) tablet 325 mg PO DAILY hydrocodone-acetaminophen 5-325 mg tablet 1 tab PO BID olanzapine 5 mg tablet 5 mg PO QHS fexofenadine 180 mg tablet 180 mg PO DAILY desvenlafaxine succinate 100 mg tablet extended release 24 hr 200 mg PO QHS albuterol sulfate 2.5 mg /3 mL (0.083 %) solution for nebulization Patient Comments: [NO ORIGINAL SIG] trazodone 100 mg tablet 100 mg PO QHS sertraline 25 mg tablet 25 mg PO DAILY mirtazapine 15 mg tablet 15 mg PO QHS Eliquis 5 mg tablet 5 mg PO BID Qty: 60 2RF Patient Comments: STOP 2 DAYS PRIOR TO OR PER ALEA FROM OFFICE atorvastatin 40 mg tablet 40 mg PO QHS Qty: 90 3RF clopidogrel 75 mg tablet 75 mg PO DAILY Qty: 30 11RF Patient Comments: STOP 7 DAYS PRIOR TO OR PER ALEA FROM OFFICE Primary Care Provider: Eliel Mosley Referrals: Eliel Mosley, FLOOR POLISHER-C [Primary Care Provider, Family Practice] Print Language: Georgian
[2025-02-14 15:06] LABS: AST(SGOT) 15 U/L (<=37); Alanine Aminotransfer ALT/SGPT 20 U/L (<=46); Albumin, Serum 4.1 g/dL (3.4-4.8); Alkaline Phosphatase 124 U/L (40-129); Anion Gap 12 (5-15); BUN 6 mg/dL (4-19); BUN/Creat Ratio 5.3 RATIO (10-20); Calcium,Total 9.0 mg/dL (7.6-11.0); Carbon Dioxide 23.2 mmol/L (21.0-32.0); Chloride 103 mmol/L (98-108); Estimated Creatinine Clearance 64.47 ml/min (50-250); Globulin 2.2 g/dL (2.2-4.2); Glucose 105 mg/dL (70-99); Potassium 3.3 mmol/L (3.3-5.1)
[2025-02-14 15:12] VITALS: BP 127/95; PULSE 72
[2025-02-14 15:13] LABS: Barbiturate Urine NEGATIVE (< 200 ng/mL); Benzodiazepine Urine NEGATIVE (< 200 ng/mL); PCP Urine PRESUMPTIVE POSITIVE (< 25 ng/mL); THC Urine PRESUMPTIVE POSITIVE (< 50 ng/mL)
[2025-02-14 15:14] LABS: Acetaminophen (Tylenol) Level < 5.0 ug/mL (8.0-19.0); Salicylate < 0.5 mg/dL (2.8-20.0)
[2025-02-14 15:38] LABS: Alcohol, Blood (Medical)-Serum < 10.1 mg/dL (<=10.0)
[2025-02-14 16:00] VITALS: BP 133/85; PULSE 73; RESP 18; TEMP 36.8; O2SAT 98
--- NOTE | 2025-02-14 16:40 | CPS ---
Patient stated he was breathing fine, aerosol not given.
--- NOTE | 2025-02-14 16:56 | ED.RN ---
ALENA FROM [facility] IN [place] PROVIDED ACCEPTING INFORMATION FOR PT. TRANSFER AT THIS TIME
--- NOTE | 2025-02-14 17:46 | ED.RN ---
ATTEMPTED TO CALL REPORT TO [facility] W/ NO ANSWER AT THIS TIME. CALL BACK NUMBER LEFT FOR DEPARTMENT.
--- NOTE | 2025-02-14 18:52 | ED.RN ---
ATTEMPTED TO CALL REPORT TO [facility]. HIP HOP PERFORMERS STATED OUR NURSES ARE IN REPORT. CAN YOU CALL BACK AT A LATER TIME. HIP HOP PERFORMERS NOTIFIED THAT THIS WAS THE SECOND ATTEMPT MADE FOR A NURSE TO NURSE.
--- NOTE | 2025-02-14 18:58 | CM.ED ---
Social Work Warm handoff from Crisis, patient was assessed in the community and will be placed for inpatient psychiatric hospitalization. No further SW needs at this time. Breanne العراقي, METAL TANK ERECTOR, VENEER PRODUCTION MACHINE OPERATOR
--- NOTE | 2025-02-14 19:23 | ED.RN ---
REPORT CALLED TO [facility]P NURSE ERMELINDA AT THIS TIME. NO FURTHER QUESTIONS BY THE RECEIVING NURSE. NURSE INFORMED SQUAD ETA 2200.
[2025-02-14 19:26] VITALS: BP 145/80; PULSE 71; RESP 14; TEMP 36.6; O2SAT 96
[2025-02-14 21:20] VITALS: BP 145/75; PULSE 89; RESP 18; O2SAT 99
[2025-02-14] MEDS: HYDROcodone Bitartrate/Apap 5/325 Tablet PO (21:21)
[2025-02-14] MEDS: APIXABAN 5 MG TABLET PO (21:21)
[2025-02-14] MEDS: OLANZapine 5 MG/TAB TAB.RAPDIS PO (21:22)
== END 2025-02-14 23:12 ==
PROVIDERS: Emergency Provider Surgery; PCP Nurse Practitioner Family; Visit Provider Surgery
DX: T43.212A Poisoning by selective serotonin and norepinephrine reuptake inhibitors, intentional self-harm, initial encounter (principal); M06.9 Rheumatoid arthritis, unspecified; F20.9 Schizophrenia, unspecified; F31.9 Bipolar disorder, unspecified; J44.9 Chronic obstructive pulmonary disease, unspecified; E11.9 Type 2 diabetes mellitus without complications; R45.851 Suicidal ideations; F12.90 Cannabis use, unspecified, uncomplicated; Z63.4 Disappearance and death of family member; I10 Essential (primary) hypertension; F41.9 Anxiety disorder, unspecified; I49.3 Ventricular premature depolarization; K21.9 Gastro-esophageal reflux disease without esophagitis; D64.9 Anemia, unspecified; I25.2 Old myocardial infarction; I25.10 Atherosclerotic heart disease of native coronary artery without angina pectoris; G25.81 Restless legs syndrome; G47.33 Obstructive sleep apnea (adult) (pediatric); G89.29 Other chronic pain; E78.00 Pure hypercholesterolemia, unspecified; Z95.5 Presence of coronary angioplasty implant and graft; Z87.11 Personal history of peptic ulcer disease; Z79.51 Long term (current) use of inhaled steroids; Z87.19 Personal history of other diseases of the digestive system; Z79.01 Long term (current) use of anticoagulants; Z79.02 Long term (current) use of antithrombotics/antiplatelets; Z86.711 Personal history of pulmonary embolism; Z90.49 Acquired absence of other specified parts of digestive tract; Z86.718 Personal history of other venous thrombosis and embolism; Z79.899 Other long term (current) drug therapy; Z87.891 Personal history of nicotine dependence
CPT/HCPCS: 36415; 80053; 80143; 80179; 80307; 82077; 85025; 93005; 99285